=== PATIENT | male | born 1955 | race Caucasian/White ===

== ENCOUNTER 2018-07-08 15:17 | Emergency (ER) | payer MEDICARE, OTHER, SELFPAY ==
[2018-07-08 15:41] VITALS: BP 115/70; PULSE 90; RESP 16; TEMP 37; O2SAT 97
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
[2018-07-08] MEDS: Lidocaine 5% Patch 1 PATCH TP (16:54)
[2018-07-08 17:08] VITALS: BP 130/76; PULSE 77; RESP 17; TEMP 36.8; O2SAT 96
== END 2018-07-08 17:10 | disposition home or self-care (01) ==
PROVIDERS: Emergency Provider Nurse Practitioner Family; PCP Family Medicine
DX: S39.012A Strain of muscle, fascia and tendon of lower back, initial encounter (principal); X50.0XXA Overexertion from strenuous movement or load, initial encounter
CPT/HCPCS: 99283

== ENCOUNTER 2018-09-12 10:39 | Outpatient (CLI) | payer MEDICARE, OTHER, SELFPAY ==
[2018-09-12 13:04] LABS: BUN 18 mg/dL (7-18); CREATININE 1.06 mg/dL (0.70-1.30); Chloride 103 mmol/L (98-107); Glucose 189 mg/dL (70-100); Magnesium 1.8 mg/dL (1.8-2.4); Potassium 4.9 mmol/L (3.5-5.1); Sodium 139 mmol/L (136-145)
== END 2018-09-12 10:59 ==
PROVIDERS: PCP Family Medicine; Visit Provider Family Medicine
DX: I10 Essential (primary) hypertension (principal); E83.42 Hypomagnesemia
CPT/HCPCS: 36415; 80048; 83735

== ENCOUNTER 2019-01-02 15:56 | Outpatient (REF) | payer MEDICARE, OTHER, SELFPAY ==
[2019-01-02 20:44] LABS: HCT 41.1 % (40.0-50.0); HGB 13.2 g/dL (13.5-17.5); Mean Corp. HGB Concentration 32.1 g/dL (32.0-36.0); Mean Corpuscular Hemoglobin 24.1 pg (27.0-33.0); Mean Platelet Volume 11.4 fL (8.0-11.0); Platelet Count 227 x1000/uL (130-400); RBC 5.48 m/cumm (4.50-6.00); RBC Distribution Width 15.3 % (11.8-14.1); White Blood Cell Count 6.56 k/cumm (4.4-10.8)
[2019-01-02 21:21] LABS: NT-proBNP 25 pg/mL
== END 2019-01-02 16:16 ==
LOC: NCHCN 15:56
PROVIDERS: PCP Family Medicine; Visit Provider Family Medicine
DX: R06.02 Shortness of breath (principal)
CPT/HCPCS: 85027; 83880

== ENCOUNTER 2019-08-21 01:16 | Outpatient (CLI) | payer MEDICARE, OTHER, SELFPAY ==
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
== END 2019-08-21 01:36 ==
PROVIDERS: PCP Family Medicine; Visit Provider Orthopaedic Surgery
DX: M75.101 Unspecified rotator cuff tear or rupture of right shoulder, not specified as traumatic (principal); Z98.890 Other specified postprocedural states
CPT/HCPCS: 73221

== ENCOUNTER 2019-10-17 01:20 | Outpatient (CLI) | payer MEDICARE, OTHER, SELFPAY ==
[2019-10-17 16:04] LABS: Iron 79 ug/dL (65-175)
[2019-10-17 16:17] LABS: Ferritin 99 ng/mL (26-388); TSH 2.15 uIU/mL (0.36-3.74)
== END 2019-10-17 01:40 ==
PROVIDERS: PCP Family Medicine; Visit Provider Internal Medicine
DX: G47.61 Periodic limb movement disorder (principal); E11.9 Type 2 diabetes mellitus without complications
CPT/HCPCS: 36415; 82728; 83540; 84443

== ENCOUNTER 2019-11-12 13:50 | Outpatient (REF) | payer MEDICARE, OTHER, SELFPAY ==
[2019-11-13 13:11] LABS: COVID-19 RT-PCR UVMMC Result Negative (Negative)
== END 2019-11-12 14:10 ==
LOC: NCHCN 13:50
PROVIDERS: PCP Family Medicine; Visit Provider Physician Assistant
DX: R06.09 Other forms of dyspnea (principal)
CPT/HCPCS: U0003

== ENCOUNTER 2019-12-17 14:52 | Outpatient (REF) | payer MEDICARE, OTHER, SELFPAY ==
[2019-12-17 16:04] LABS: Hemoglobin A1C 10.1 % (3.8-5.6)
[2019-12-17 16:24] LABS: Magnesium 1.9 mg/dL (1.8-2.4); Vitamin B12 481 pg/mL (193-986)
[2019-12-19 05:48] LABS: Vitamin D 25 Total 27.7 ng/ml (30-100)
== END 2019-12-17 15:12 ==
LOC: NCHCN 14:52
PROVIDERS: PCP Family Medicine; Visit Provider Family Medicine
DX: E11.9 Type 2 diabetes mellitus without complications (principal); Z98.84 Bariatric surgery status; E83.42 Hypomagnesemia; Z79.84 Long term (current) use of oral hypoglycemic drugs
CPT/HCPCS: 82306; 82607; 83036; 83735

== ENCOUNTER 2020-03-06 14:49 | Emergency (ER) | payer MEDICARE, OTHER, SELFPAY ==
[2020-03-06] VITALS (12 sets, daily range): BP systolic 125–174; BP diastolic 77–97; PULSE 77–103; RESP 10–18; TEMP 36.6; O2SAT 94–98
--- NOTE | 2020-03-06 14:45 | RT.EKG_ITS ---
APPROVED REPORT Exam: Resting ECG Patient Location: E HR:100 bpm ECG Measurements Heart Rate 100 AXIS WV 163 P 71 QRSd 99 QRS -11 QT 349 T 52 QTc 449 Conclusion Sinus tachycardia...rate> 99
--- NOTE | 2020-03-06 15:25 | NUR.NOTE ---
Nursing Note: States he is always SOB and been worked up several times by his PCP but did not find anything. States it is no worse it is just bothering him. Worse when bending over or lying flat.
--- NOTE | 2020-03-06 15:30 | DI.CT_ITS ---
EXAM: CT CHEST PE CTA CLINICAL HISTORY: shortness of breath, chest tightness. TECHNIQUE: Imaging Protocol: Axial CT angiography was performed with multi-slice acquisition and mu lti-planar and/or 3D reconstructions. CONTRAST MATERIAL: Intravenous: Omnipaque 350 Contrast volume:84 mL COMPARISON: CT CHEST FOR PULMONARY EMBOLUS from 04/10/2017 FINDINGS: Pulmonary Arteries: No evidence of filling defect to suggest pulmonary emboli. Tracheobronchial tree: Patent where visualized. Mediastinum and Velma: No dominant adenopathy or fluid collection. Pulmonary parenchyma: No consolidation or dominant measurable mass. No architectural distortion. Mild dependent atelectasis. Pleura: No effusion or pneumothorax. Heart: The heart is not dilated. No coronary artery calcifications are seen. No pericardial effusion. Aorta: Thoracic aorta non-dilated. Mild atherosclerosis. No dissection. Upper abdomen: Prior gastric surgery. Fatty liver. Bones: Degenerative changes.Prior right shoulder surgery. Soft tissues: Unremarkable. IMPRESSION: No evidence of pulmonary embolism, thoracic aortic dissection or aneurysm. RADIATION DOSE DELIVERED: 539.4mGy.cm Total DLP DATA REPOSITORY: All CT scans at this facility are submitted to the National Radiology Data Registry (NRDR) Dose Index Registry (DIR) with the [employer] ([employer]). RADIATION OPTIMIZATION: All CT scans at this facility use at least one of these dose optimization te chniques: automated exposure control; mA and/or kV adjustment per patient size (includes targeted exa ms where dose is matched to clinical indication); or iterative reconstruction.
[2020-03-06 15:55] LABS: Abs Immature Grans 0.03 10^3/uL (0.0-0.06); Absolute Basophil Count 0.02 10^3/uL (0.0-0.2); Absolute Eosinophil Count 0.14 10^3/uL (0.0-0.7); Absolute Lymphocyte Count 1.43 10^3/uL (1.2-3.4); Absolute Monocyte Count 0.47 10^3/uL (0.1-0.8); Absolute Neutrophil Count 4.09 10^3/uL (1.2-6.7); Basophils % 0.3; Eosinophils % 2.3; HCT 45.4 % (40.0-50.0); HGB 15.4 g/dL (13.5-17.5); Immature Grans % 0.5; Lymphocytes % 23.1; MCH 30.5 pg (27.0-33.0); MCHC 33.9 % (32.0-36.0); MCV 89.9 fL (80-95); MPV 10.8 fL (8.0-11.0); Monocytes % 7.6; Neutrophils % 66.2; Nucleated RBC 0 %; Platelet Count 178 10^3/uL (130-400); RBC 5.05 10^6/uL (4.36-5.78); RDW-SD 42.5 fL; WBC 6.18 10^3/uL (4.4-10.8)
[2020-03-06 16:05] LABS: PTT Activated 21.6 sec (21.0-31.4)
[2020-03-06 16:26] LABS: ALT 64 U/L (16-63); AST 35 U/L (15-37); Albumin 3.9 g/dL (3.4-5.0); Alkaline Phosphatase 65 U/L (46-116); Anion Gap 13.5 mmol/L (3-11); BUN 21 mg/dL (7-18); Bilirubin, Total 0.3 mg/dL (0.2-1.0); CO2 24.5 mmol/L (21.0-32.0); CREATININE 1.43 mg/dL (0.70-1.30); Chloride 101 mmol/L (98-107); Estimated GFR 49.95 (mL/min/1.73m2); Glucose 360 mg/dL (74-106); Potassium 4.2 mmol/L (3.5-5.1); Sodium 139 mmol/L (136-145); Total Protein 7.4 g/dL (6.4-8.2); Troponin I < 0.05 ng/mL (<0.06)
[2020-03-06 16:29] LABS: NT-proBNP 28 pg/mL (<300)
[2020-03-06] MEDS: Omnipaque 350 MG/ML 100 ML BTL IJ (17:15)
[2020-03-06] MEDS: Normal Saline Flush 10 ML SYR IVP (17:16)
[2020-03-06] MEDS: Normal Saline - Diluent 50 ML VIAL IV (17:16)
--- NOTE | 2020-03-06 17:21 | DI.VRAD_ITS ---
PROCEDURE INFORMATION: Exam: CT Angiography Chest With Contrast Exam date and time: 03/06/2020 3:35 PM Age: 64 years old Clinical indication: Other: SOB, chest tightness TECHNIQUE: Imaging protocol: Computed tomographic angiography of the chest with intravenous contrast. 3D rendering (Not supervised by radiologist): MIP and/or 3D reconstructed images were created by the technologist. Contrast material: OMNIPAQUE 350; Contrast volume: 84 ml; Contrast route: INTRAVENOUS (IV); COMPARISON: CT CHEST FOR PULMONARY EMBOLUS 04/10/2017 3:59 PM FINDINGS: Pulmonary arteries: Normal. No pulmonary emboli. Aorta: Unremarkable. No aortic aneurysm. No aortic dissection. Lungs: No pulmonary infiltrates. Minimal atelectasis in the posterior segment of the right lower lobe. No masses. Pleural space: Unremarkable. No pneumothorax. No pleural effusion. Heart: Unremarkable. No cardiomegaly. No pericardial effusion. Lymph nodes: Unremarkable. No enlarged lymph nodes. Liver: Fatty liver. Stomach and bowel: Gastric bypass. Bones/joints: Degenerative spine.right rotator cuff anchors.. No acute fracture. Soft tissues: Unremarkable. Other findings: Minimal atherosclerosis. IMPRESSION: No pulmonary embolism. No pulmonary infiltrates. Minimal atelectasis in the posterior segment of the right lower lobe. Dictated and Authenticated by: Bharathi Bryan MD. Ordering:TRISTA Lo MD
[2020-03-06] MEDS: Normal Saline 500 ML IV (17:46)
--- NOTE | 2020-03-06 17:56 | ED.GENADUL_ITS ---
Discharge Plan Disposition Patient Disposition: HOME Condition: Stable Discharge Details Chief Complaint: SOB Clinical Impression: Shortness of breath, Hyperglycemia Primary Care Provider: Yung Horn ED Provider: Wally Ascencio Home Meds and New Rx's Prescriptions: No Action lisinopril 2.5 MG tablet 2.5 mg PO DAILY Qty: 30 RF: 11 gabapentin 300 MG capsule 300 mg PO BID PRNQty: 90 RF: 2 venlafaxine 25 MG tablet PO DAILY RF: 0 metformin [Glucophage] 1,000 MG tablet 1,000 mg PO BID RF: 0 lorazepam 1 MG tablet 1 mg PO Q4H PRN PRN (Reason: Muscle Spasm) Qty: 10 RF: 0 risperidone [Risperdal] 0.5 mg Tablet 1 tab PO .QHS RF: 0 ibuprofen [IBU] 600 mg tablet 600 mg PO QID PRN (Reason: pain) Qty: 14 RF: 0 oxycodone 5 mg tablet 5 mg PO Q6H PRN (Reason: pain) Qty: 6 RF: 0 aspirin 81 MG tablet,delayed release (DR/EC) 81 mg PO DAILY RF: 0 glipizide 5 MG tablet 10 mg PO BID RF: 0 metoprolol jane-hydrochlorothiaz 1 EACH tablet extended release 24 hr 25 mg PO DAILY RF: 0 pantoprazole [Protonix] 40 MG recon soln 40 mg IVP DAILY RF: 0 Discharge Instructions Instructions: Dyspnea (ED), Diabetic Hyperglycemia (ED) Additional Instructions: Medication reconciliation process could not be performed today. Please be sure to take your medication as prescribed. If you have questions regarding her medication, please talk with your primary care doctor. Your blood sugar was elevated today. Please discuss this with your primary care physician on Monday. Please drink plenty of clear fluids to stay hydrated. Please contact your primary care physician to arrange follow-up. Call first thing Monday morning. Return to the ER for any worsening or new concerning symptoms. Referrals: Yung Horn [Primary Care Provider] - Discharge Data Discharge Date/Time-TO BE ENTERED AT DEPARTURE: 03/06/20 19:55 Medical Decision Making 84-year-old male here today with shortness of breath that he has been experiencing intermittently for a couple of years. More noticeable over the past few days. Patient is saturating well and in no respiratory distress. Lungs are clear to auscultation. He is mildly tachycardic on arrival. Considered acute pulmonary embolism. CT of the chest was interpreted by radiology: IMPRESSION: No pulmonary embolism. No pulmonary infiltrates. Minimal atelectasis in the posterior segment of the right lower lobe. Considered CHF given symptoms do seem worse lying flat. BNP is negative. Troponin negative. BNP is negative. Labs reviewed and mild elevation of creatinine noted. Patient states he has been drinking as much fluid as usual. Glucose is elevated at 360 and he does have an anion gap of 13.5. Patient was given 1 L IV fluid bolus. Patient reassessed and is remained stable. Tachycardia resolved. Repeat labs reveal resolution of anion gap and improved glucose. Plan will be for patient to follow-up with his primary care physician for further outpatient work-up. Disposition decision was made weighing the risks and benefits of hospitalization versus outpatient treatment, the risk for further decompensation, and the patient's wishes. The patient was stable and requested discharge. Prior to discharge, my usual and customary return precautions were reviewed with the patient - this included follow-up instructions and reason to return to the emergency department if condition worsens, does not improve as expected, or other new concerns arise. HPI General Mode of arrival: ambulatory . Date/Time Provider Initiated Documentation: 03/06/20 15:18 . Limitations to Documentation: no limitations . Information obtained by: patient . HPI Narrative: 84-year-old male with history of anxiety, [id number]-dpyaxatbn diabetes, GERD, here today with shortness of breath that he has been experiencing intermittently for a couple of years. More noticeable over the past few days. Symptoms are moderate. Worse lying flat. He does note intermittent mild swelling bilateral lower extremities. Patient also states he has some intermittent pleuritic chest discomfort. No pain at this time. No calf pain. Related Data Home Medications Medication Instructions Recorded Confirmed lisinopril 2.5 mg PO DAILY #30 tab-cap 07/16/14 07/08/18 gabapentin 300 mg PO BID PRN #90 tab-cap 03/09/15 07/08/18 aspirin 81 mg PO DAILY 05/26/17 07/08/18 glipizide 10 mg PO BID 05/26/17 07/08/18 metoprolol jane-hydrochlorothiaz 25 mg PO DAILY 05/26/17 07/08/18 pantoprazole [Protonix] 40 mg IVP DAILY vial 05/26/17 07/08/18 lorazepam 1 mg PO Q4H PRN PRN #10 tab 11/27/17 07/08/18 metformin [Glucophage] 1,000 mg PO BID 11/27/17 07/08/18 venlafaxine mg PO DAILY 11/27/17 ibuprofen [IBU] 600 mg PO QID PRN #14 tab 07/08/18 oxycodone 5 mg PO Q6H PRN #6 tab 07/08/18 risperidone [Risperdal] 1 tab PO .QHS 07/08/18 07/08/18 Previous Rx's Medication Instructions Recorded pantoprazole [Protonix] 40 mg IVP DAILY vial 05/26/17 lorazepam 1 mg PO Q4H PRN PRN #10 tab 11/27/17 ibuprofen [IBU] 600 mg PO QID PRN #14 tab 07/08/18 oxycodone 5 mg PO Q6H PRN #6 tab 07/08/18 Allergies Allergy/AdvReac Type Severity Reaction Status Date / Time adhesive Allergy Intermediate blisters Unverified 03/06/20 15:24 General Stated Complaint: SOB NASIMA: 3 Review of Systems All systems reviewed & are unremarkable except as noted in HPI and below Constitutional Constitutional: Denies fever(s) Respiratory Respiratory: Reports as per HPI PFSH Surgical History bunionectomy (07/18/14) Left Dr Márquez Repair of inguinal hernia Repair, ACL Rotator Cuff Repair Family History Mother Alzheimer disease Social History Smoking/Tobacco Use Status: Former Tobacco Use Drug use: Never Substance use type: does not use Do you feel safe at home: Yes Do you feel safe in your relationship?: Yes Exam Const General: cooperative and no acute distress HENMT Head: normocephalic Mouth: moist mucous membranes Eyes Conjunctivae: normal conjunctivae Sclera: normal sclerae Neck Neck: trachea midline and supple Resp Auscultation: clear to auscultation bilaterally, no rales, no rhonchi and no wheezes Cardio Jugular venous pressure: no JVD Rate: tachycardic Rhythm: regular rhythm GI Palpation: soft, not firm, no guarding, no masses, not rigid and nontender Skin General skin exam: no rashes or lesions noted Neuro General: patient alert, patient awake, patient oriented x3 and tone normal Extrem General: edema Laterality: bilateral (Trace) Psych Appearance: grossly normal Mental Status: mental status grossly normal Speech and Movement: speech and movement normal Course Vital Signs Vital signs: Vital Signs Temperature 36.6 C 03/06/20 15:10 Pulse 103 H 03/06/20 15:10 Respiratory Rate 18 03/06/20 15:10 Blood Pressure 159/93 H 03/06/20 15:10 Pulse Oximetry 94 L 03/06/20 15:10 Temperature 36.6 C 03/06/20 15:10 Temperature Source Skin 03/06/20 15:10 Pulse 103 H 03/06/20 15:10 Respiratory Rate 18 03/06/20 15:10 Respiratory Effort Non-Labored 03/06/20 15:20 Respiratory Depth Normal 03/06/20 15:20 Respiratory Pattern Normal 03/06/20 15:20 Blood Pressure 159/93 H 03/06/20 15:10 Blood Pressure Position Sitting 03/06/20 15:10 Pulse Oximetry 94 L 03/06/20 15:10 Oxygen Delivery Method Room Air 03/06/20 15:10 Oxygen Flow Rate 0 03/06/20 15:10 Lab/Test Results Lab/Test Results: Laboratory Tests Range/Units 03/06/20 03/06/20 03/06/20 15:10 15:10 15:10 WBC (4.4-10.8) 10^3/uL 6.18 RBC (4.36-5.78) 10^6/uL 5.05 Hgb (13.5-17.5) g/dL 15.4 Hct (40.0-50.0) % 45.4 MCV (80-95) fL 89.9 MCH (27.0-33.0) pg 30.5 MCHC (32.0-36.0) % 33.9 RDW (11.8-14.1) % 13.0 Plt Count (130-400) 10^3/uL 178 MPV (8.0-11.0) fL 10.8 Immature Gran % 0.5 Neutrophils % 66.2 Lymphocytes % 23.1 Monocytes % 7.6 Eosinophils % 2.3 Basophils % 0.3 Nucleated RBC % % 0 Absolute Neutrophils (1.2-6.7) 10^3/uL 4.09 Absolute Lymphocytes (1.2-3.4) 10^3/uL 1.43 Absolute Monocytes (0.1-0.8) 10^3/uL 0.47 Absolute Eosinophils (0.0-0.7) 10^3/uL 0.14 Absolute Basophils (0.0-0.2) 10^3/uL 0.02 APTT (21.0-31.4) sec Sodium (136-145) mmol/L 139 Potassium (3.5-5.1) mmol/L 4.2 Chloride (98-107) mmol/L 101 Carbon Dioxide (21.0-32.0) mmol/L 24.5 Anion Gap (3-11) mmol/L 13.5 H BUN (7-18) mg/dL 21 H Creatinine (0.70-1.30) mg/dL 1.43 H Estimated GFR/1.73 m2 (mL/min/1.73m2) 49.95 Glucose (74-106) mg/dL 360 H Calcium (8.5-10.1) mg/dL 9.0 Total Bilirubin (0.2-1.0) mg/dL 0.3 AST (15-37) U/L 35 ALT (16-63) U/L 64 H Alkaline Phosphatase (46-116) U/L 65 Troponin I (<0.06) ng/mL < 0.05 NT-Pro-B Natriuret Pep (<300) pg/mL 28 Total Protein (6.4-8.2) g/dL 7.4 Albumin (3.4-5.0) g/dL 3.9 Range/Units 03/06/20 15:10 WBC (4.4-10.8) 10^3/uL RBC (4.36-5.78) 10^6/uL Hgb (13.5-17.5) g/dL Hct (40.0-50.0) % MCV (80-95) fL MCH (27.0-33.0) pg MCHC (32.0-36.0) % RDW (11.8-14.1) % Plt Count (130-400) 10^3/uL MPV (8.0-11.0) fL Immature Gran % Neutrophils % Lymphocytes % Monocytes % Eosinophils % Basophils % Nucleated RBC % % Absolute Neutrophils (1.2-6.7) 10^3/uL Absolute Lymphocytes (1.2-3.4) 10^3/uL Absolute Monocytes (0.1-0.8) 10^3/uL Absolute Eosinophils (0.0-0.7) 10^3/uL Absolute Basophils (0.0-0.2) 10^3/uL APTT (21.0-31.4) sec 21.6 Sodium (136-145) mmol/L Potassium (3.5-5.1) mmol/L Chloride (98-107) mmol/L Carbon Dioxide (21.0-32.0) mmol/L Anion Gap (3-11) mmol/L BUN (7-18) mg/dL Creatinine (0.70-1.30) mg/dL Estimated GFR/1.73 m2 (mL/min/1.73m2) Glucose (74-106) mg/dL Calcium (8.5-10.1) mg/dL Total Bilirubin (0.2-1.0) mg/dL AST (15-37) U/L ALT (16-63) U/L Alkaline Phosphatase (46-116) U/L Troponin I (<0.06) ng/mL NT-Pro-B Natriuret Pep (<300) pg/mL Total Protein (6.4-8.2) g/dL Albumin (3.4-5.0) g/dL
[2020-03-06 19:17] LABS: Anion Gap 7.5 mmol/L (3-11); BUN 19 mg/dL (7-18); CO2 29.5 mmol/L (21.0-32.0); Calcium 8.9 mg/dL (8.5-10.1); Chloride 103 mmol/L (98-107); Glucose 215 mg/dL (74-106); Potassium 4.3 mmol/L (3.5-5.1); Sodium 140 mmol/L (136-145)
== END 2020-03-06 19:55 | disposition home or self-care (01) ==
PROVIDERS: Emergency Provider Student in an Organized Health Care Education/Training Program; PCP Family Medicine
DX: R06.02 Shortness of breath (principal); R07.81 Pleurodynia; E11.65 Type 2 diabetes mellitus with hyperglycemia; Z79.84 Long term (current) use of oral hypoglycemic drugs
CPT/HCPCS: 36415; 71275; 80048; 80053; 93005; 96360; 99285; 83880; 84484; 85025; 85730; 93010; 99284; J3490

== ENCOUNTER 2020-07-01 22:26 | Inpatient (IN) | payer MEDICARE, OTHER, SELFPAY ==
[2020-07-01] VITALS (7 sets, daily range): BP systolic 101–167; BP diastolic 66–87; PULSE 81–95; RESP 12–20; TEMP 36.6; O2SAT 90–100
--- NOTE | 2020-07-01 22:30 | RT.EKG_ITS ---
APPROVED REPORT Exam: Resting ECG Patient Location: E HR:91 bpm ECG Measurements Heart Rate 91 AXIS DE 163 P 47 QRSd 92 QRS 3 QT 344 T 32 QTc 423 Conclusion Sinus rhythm...normal P axis, V-rate 60- 99 Low voltage, precordial leads...precordial leads <1.0mV Physician: Rate 91, intervals normal, no significant ST elevation or depressions, there is a T wave i nversion in V1, no Q waves. No STEMI.
[2020-07-01] MEDS: nitroGLYcerin 0.4 MG TAB SL (22:56)
--- NOTE | 2020-07-01 22:56 | DI.RAD_ITS ---
EXAM: XR PORTABLE CHEST AP CLINICAL HISTORY: chest pain, sob, syncope TECHNIQUE: 2D digital imaging was performed. COMPARISON: No exams were available for comparison FINDINGS: MEDIASTINUM: Normal. HEART: Normal. PULMONARY VASCULATURE: Normal. LUNGS: Clear. PLEURAL SPACE: No pleural effusion or pneumothorax. BONE:Within normal limits for the patient's age. OTHER FINDINGS:Normal. IMPRESSION: No acute pulmonary findings. DATA REPOSITORY: RADIATION DOSE DELIVERED:
[2020-07-01 22:58] LABS: BE (Venous) 2 mmol/L (-2-3); HCO3 (Venous) 27 mmol/L (23-28); O2 Sat (Venous) 73 %; TCO2 (Venous) 24 mmol/L (24-29); pCO2 (Venous) 44 mmHg (41-51); pH (Venous) 7.39 (7.31-7.41); pO2 (Venous) 39 mmHg
[2020-07-01] MEDS: Normal Saline 500 ML IV (22:58)
[2020-07-01 22:59] LABS: Abs Immature Grans 0.02 10^3/uL (0.0-0.06); Absolute Basophil Count 0.01 10^3/uL (0.0-0.2); Absolute Lymphocyte Count 1.41 10^3/uL (1.2-3.4); Absolute Monocyte Count 0.46 10^3/uL (0.1-0.8); Absolute Neutrophil Count 4.07 10^3/uL (1.2-6.7); Basophils % 0.2; Eosinophils % 1.6; HGB 13.8 g/dL (13.5-17.5); Immature Grans % 0.3; Lymphocytes % 23.2; MCH 30.9 pg (27.0-33.0); MCHC 33.7 % (32.0-36.0); MCV 91.7 fL (80-95); MPV 10.3 fL (8.0-11.0); Monocytes % 7.6; Neutrophils % 67.1; Nucleated RBC 0 %; Platelet Count 170 10^3/uL (130-400); RBC 4.47 10^6/uL (4.36-5.78); RDW 12.6 % (11.8-14.1); RDW-SD 41.7 fL; WBC 6.07 10^3/uL (4.4-10.8)
--- NOTE | 2020-07-01 23:05 | DI.VRAD_ITS ---
PROCEDURE INFORMATION: Exam: XR Chest, 1 View Exam date and time: 07/01/2020 10:56 PM Age: 64 years old Clinical indication: Type not specified; Patient HX: Chest pain, SOB, syncope TECHNIQUE: Imaging protocol: XR of the chest Views: 1 view. COMPARISON: CT CHEST PE CTA 03/06/2020 4:59 PM FINDINGS: Lungs: Unremarkable. No consolidation. Pleural space: Unremarkable. No pleural effusion. No pneumothorax. Heart/Mediastinum: Unremarkable. No cardiomegaly. Bones/joints: Unremarkable. IMPRESSION: No acute findings. Dictated and Authenticated by: Roosevelt Weeks MD. Ordering:KATLYN Ferrer MD
--- NOTE | 2020-07-01 23:08 | W.ED.GENAD ---
Discharge Plan Disposition Patient Disposition: [facility] INPATIENT Condition: Stable Discharge Details Chief Complaint: Chest Pain Clinical Impression: Chest pain, Syncope Primary Care Provider: Yung Horn ED Provider: Nabil Daniel Home Meds and New Rx's Prescriptions: No Action metformin [Glucophage] 1,000 MG tablet 1,000 mg PO BID RF: 0 aspirin 81 MG tablet,delayed release (DR/EC) 81 mg PO DAILY RF: 0 pantoprazole [Protonix] 40 MG recon soln 40 mg IVP DAILY RF: 0 tamsulosin 0.4 mg capsule 0.4 mg PO HS RF: 0 Trulicity 0.75 mg/0.5 mL pen injector 0.75 mg SUBCUT QWEEK RF: 0 glipizide 10 mg tablet extended release 24hr 10 mg PO BID RF: 0 lisinopril 20 mg tablet 20 mg PO DAILY RF: 0 gabapentin 800 mg tablet 800 mg PO TID RF: 0 pantoprazole 40 mg tablet,delayed release (DR/EC) 40 mg PO BID RF: 0 ferrous sulfate [iron] 325 mg (65 mg iron) Tablet 325 mg PO DAILY RF: 0 cholecalciferol (vitamin D3) [Vitamin D3] 50 mcg (2,000 unit) Capsule 50 mcg PO DAILY RF: 0 venlafaxine 225 mg tablet extended release 24hr 225 mg PO DAILY RF: 0 Medical Decision Making 64-year-old male with a past medical history of hypertension, high cholesterol, previous tobacco abuse quitting over 20 years ago, reflux, diabetes, who presents today for evaluation of chest pain shortness of breath and syncope. Patient states that for the last week whenever he has been standing up he passes out. He denies hitting his head any of these times. He denies any headaches. He denied any chest pain until this morning when he developed combination of both shortness of breath and chest pain which she describes as a heaviness on his chest rating to his left jaw and left arm. He states this is new. It is worse with exertion, but not necessarily improved with rest. He denies any history of [place] in the past, in 2017 he had a cardiac catheterization at [facility] which showed mild diffuse disease but nothing that was obstructive. He had no stents placed. He denies any history of blood clots, his also denies any history of blood clots or PE. There is a diagnosis of pulmonary embolism on his history but I cannot see any evidence of previous PE on any of his CAT scans, or in the past notes. Patient has no other complaints at this time. He denies any focal family history of severe cardiac disease. Physical exam is unremarkable, no significant reproducibility for chest pain. Radial pulses are symmetric bilaterally. Vital signs appear stable. He has been given 1 nitroglycerin and this notably diminished his pain. Symptomatology is concerning for cardiac etiology or unstable angina. Will evaluate for these potential life-threatening causes. EKG at this time though shows no evidence of STEMI or significant changes. Symptoms appear inconsistent at this time with pulmonary embolism. Troponin is normal. proBNP is normal suggesting no signs of significant heart strain. Thyroid functionality is normal. I do feel that with the patient's symptoms, he would benefit from admission for serial troponins and continued observation. Chest x-ray is read by virtual radiology shows no evidence of acute process. Additionally review of [facility] records indicates no history of pulmonary embolism. Patient's well score is in the low risk category. 12:13 AM Patient's chest pain notably improved with nitroglycerin, about an hour later his chest pain returned again, he was started on a nitroglycerin drip. Discussed the case with Dr. Grajeda, he agrees with the assessment and plan. Patient will be admitted for serial troponins and further management. I discussed the plan with the patient's and she is in agreement. I have extensively reviewed the treatment plan with the patient. I have addressed all patient concerns at this time. I have also discussed the plan with the admitting physician and they agree with the current assessment and plan and have agreed to assume responsibility for the patient. All parties demonstrate verbal understanding and agreement with our assessment and plan at this time. FINDINGS: Lungs: Unremarkable. No consolidation. Pleural space: Unremarkable. No pleural effusion. No pneumothorax. Heart/Mediastinum: Unremarkable. No cardiomegaly. Bones/joints: Unremarkable. IMPRESSION: No acute findings. Thank you for allowing us to participate in the care of your patient. Dictated and Authenticated by: Roosevelt Weeks MD 07/01/2020 11:05 PM Eastern Time ([place] & [place]) EKG 22: 39 Rate 91, intervals normal, no significant ST elevation or depressions, there is a T wave inversion in V1, no Q waves. No STEMI. HPI General Date/Time Provider Initiated Documentation: 07/01/20 22:27. HPI Narrative: 64-year-old male with a past medical history of hypertension, high cholesterol, previous tobacco abuse quitting over 20 years ago, reflux, diabetes, who presents today for evaluation of chest pain shortness of breath and syncope. Patient states that for the last week whenever he has been standing up he passes out. He denies hitting his head any of these times. He denies any headaches. He denied any chest pain until this morning when he developed combination of both shortness of breath and chest pain which she describes as a heaviness on his chest rating to his left jaw and left arm. He states this is new. It is worse with exertion, but not necessarily improved with rest. He denies any history of [place] in the past, in 2017 he had a cardiac catheterization at [facility] which showed mild diffuse disease but nothing that was obstructive. He had no stents placed. He denies any history of blood clots, his also denies any history of blood clots or PE. There is a diagnosis of pulmonary embolism on his history but I cannot see any evidence of previous PE on any of his CAT scans, or in the past notes. Patient has no other complaints at this time. He denies any focal family history of severe cardiac disease. Related Data Home Medications Medication Instructions Recorded Confirmed aspirin 81 mg PO DAILY 05/26/17 07/01/20 pantoprazole [Protonix] 40 mg IVP DAILY vial 05/26/17 07/08/18 metformin [Glucophage] 1,000 mg PO BID 11/27/17 07/02/20 dulaglutide [Trulicity] 0.75 mg SUBCUT QWEEK 07/01/20 07/02/20 tamsulosin 0.4 mg PO HS 07/01/20 07/01/20 cholecalciferol (vitamin D3) 50 mcg PO DAILY 07/02/20 07/02/20 [Vitamin D3] ferrous sulfate [iron] 325 mg PO DAILY 07/02/20 07/02/20 gabapentin 800 mg PO TID 07/02/20 07/02/20 glipizide 10 mg PO BID 07/02/20 07/02/20 lisinopril 20 mg PO DAILY 07/02/20 07/02/20 pantoprazole 40 mg PO BID 07/02/20 07/02/20 venlafaxine 225 mg PO DAILY 07/02/20 07/02/20 Previous Rx's Medication Instructions Recorded pantoprazole [Protonix] 40 mg IVP DAILY vial 05/26/17 Allergies Allergy/AdvReac Type Severity Reaction Status Date / Time adhesive Allergy Intermediate blisters Unverified 07/01/20 22:38 General Stated Complaint: Chest Pain NASIMA: 2 Review of Systems All systems reviewed & are unremarkable except as noted in HPI and below PFSH Surgical History bunionectomy (07/18/14) Left Dr Márquez Repair of inguinal hernia Repair, ACL Rotator Cuff Repair Family History Mother Alzheimer disease Social History Smoking/Tobacco Use Status: Former Tobacco Use Smoking risk assessment performed?: Yes Alcohol Intake: current Alcohol Intake frequency: a few times a month Alcohol type: beer Drug use: Never Substance use type: does not use Do you feel safe at home: Yes Do you feel safe in your relationship?: Yes Exam Narrative Exam Narrative: 1.Const: Well-nourished, Well-developed, appearing stated age 2.Eyes: PERRL, no conjunctival injection, and symmetrical lids. 3.ENT: Atraumatic external nose and ears. Moist MM. Neck: Symmetric, trachea midline, No thyromegaly. 4.CVS: +S1/S2, No murmurs or gallops. Peripheral pulses 2+ and equal in all extremities. Brisk capillary refill in all extremities. No significant reproducible chest tenderness. Symmetric radial pulses. 5.RESP: Unlabored respiratory effort. Minimal crackles in bases. No wheezes or rhonchi. 6.GI: Soft, Nontender/Nondistended, No hepatosplenomegaly. No guarding or rebound. 7.MSK: Normocephalic/Atraumatic, Extremities w/o deformity or ttp No cyanosis or clubbing, Normal movement of all extremities, no calf tenderness. 8.Skin: Warm, Dry. No rashes or lesions. 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 Sensation grossly intact, no focal neurologic deficits. 10.Psych: (AAO) x3. Appropriate mood and affect Course Vital Signs Vital signs: Vital Signs Temperature 36.6 C 07/01/20 22:37 Pulse 86 07/01/20 22:37 Respiratory Rate 20 07/01/20 22:37 Blood Pressure 122/75 07/01/20 22:37 Pulse Oximetry 95 07/01/20 22:37 Temperature 36.6 C 07/01/20 22:37 Temperature Source Skin 07/01/20 22:37 Pulse 86 07/01/20 22:37 Respiratory Rate 16 07/01/20 22:46 Respiratory Effort Non-Labored 07/01/20 22:46 Respiratory Depth Normal 07/01/20 22:46 Respiratory Pattern Normal 07/01/20 22:46 Blood Pressure 122/75 07/01/20 22:37 Blood Pressure Position Sitting 07/01/20 22:37 Pulse Oximetry 95 07/01/20 22:37 Oxygen Delivery Method Room Air 07/01/20 22:37 Oxygen Flow Rate 0 07/01/20 22:37 Pain Level 6 07/01/20 22:56 Lab/Test Results Lab/Test Results: Laboratory Tests Range/Units 07/01/20 07/01/20 22:45 22:45 WBC (4.4-10.8) 10^3/uL 6.07 RBC (4.36-5.78) 10^6/uL 4.47 Hgb (13.5-17.5) g/dL 13.8 Hct (40.0-50.0) % 41.0 MCV (80-95) fL 91.7 MCH (27.0-33.0) pg 30.9 MCHC (32.0-36.0) % 33.7 RDW (11.8-14.1) % 12.6 Plt Count (130-400) 10^3/uL 170 MPV (8.0-11.0) fL 10.3 Immature Gran % 0.3 Neutrophils % 67.1 Lymphocytes % 23.2 Monocytes % 7.6 Eosinophils % 1.6 Basophils % 0.2 Nucleated RBC % % 0 Absolute Neutrophils (1.2-6.7) 10^3/uL 4.07 Absolute Lymphocytes (1.2-3.4) 10^3/uL 1.41 Absolute Monocytes (0.1-0.8) 10^3/uL 0.46 Absolute Eosinophils (0.0-0.7) 10^3/uL 0.10 Absolute Basophils (0.0-0.2) 10^3/uL 0.01 VBG pH (7.31-7.41) 7.39 VBG pCO2 (41-51) mmHg 44 VBG pO2 mmHg 39 VBG HCO3 (23-28) mmol/L 27 VBG Total CO2 (24-29) mmol/L 24 VBG O2 Saturation % 73 VBG Base Excess (-2-3) mmol/L 2
[2020-07-01 23:17] LABS: PTT Activated 21.1 sec (21.0-27.5); Prothrombin Time 9.9 sec (9.3-11.0)
[2020-07-01 23:26] LABS: ALT 106 U/L (16-63); AST 166 U/L (15-37); Albumin 3.8 g/dL (3.4-5.0); Alkaline Phosphatase 71 U/L (46-116); Anion Gap 6.3 mmol/L (3-11); BUN 21 mg/dL (7-18); Bilirubin, Total 1.1 mg/dL (0.2-1.0); CO2 27.7 mmol/L (21.0-32.0); CREATININE 1.49 mg/dL (0.70-1.30); Calcium 8.9 mg/dL (8.5-10.1); Chloride 104 mmol/L (98-107); Estimated GFR 47.63 (mL/min/1.73m2); Glucose 185 mg/dL (74-106); NT-proBNP 47 pg/mL (<300); Potassium 5.1 mmol/L (3.5-5.1); Sodium 138 mmol/L (136-145); TSH (W/Ref FT4) 3.66 uIU/mL (0.36-3.74); Total Protein 7.3 g/dL (6.4-8.2); Troponin I < 0.05 ng/mL (<0.06)
--- NOTE | 2020-07-01 23:26 | W.PM.HP.N ---
Date of service: 07/01/20 Time of Service: 23:26 Assessment and Plan Assessment and plan (1) Atypical chest pain: Status: Acute Assessment and plan: CP. No objective evidence ACS at present, though at risk; response to NTG, such as it was, is nonspecific. Would trend out troponins, trial PPI, NTG qtt if CP recurrent or persistent, and heparin if troponin bumps. History of Present Illness History of Present Illness Chief Complaint: CP Narrative: 64 male diabetic. Has h/o CP 2017, sent to [facility] for cath, non-obstructive disease. Comes in now with one day of waxing and waning substernal CP, variably denies or affirms radiation to neck and/or shoulder; and also SOB. Additionally reports that his LUE and LLE are either hurting or tingling, and that his lower back is hurting as well. However note that the CP is his primary complaint. In ER had fleeting (less than one minute he tells me) relief with SL NTG. Initial EKG no acute changes and initial troponin negative, and CXR w/o acute findings. Admitted for further evaluation. Other findings of note are AST 166, ALT 106. States he drinks a few beers. Review of Systems All systems reviewed & are unremarkable except as noted in HPI and below PFSH Surgical History bunionectomy (07/18/14) Left Dr Márquez Repair of inguinal hernia Repair, ACL Rotator Cuff Repair Family History Mother Alzheimer disease Social History Smoking/Tobacco Use Status: Former Tobacco Use Smoking risk assessment performed?: Yes Alcohol Intake: current Alcohol Intake frequency: a few times a month Alcohol type: beer Drug use: Never Substance use type: does not use Do you feel safe at home: Yes Do you feel safe in your relationship?: Yes Meds Home Medications and Allergies Home Medications Medication Instructions Recorded Confirmed Type lisinopril 2.5 mg PO DAILY #30 tab-cap 07/16/14 07/08/18 History gabapentin 300 mg PO BID PRN #90 tab-cap 03/09/15 07/08/18 History aspirin 81 mg PO DAILY 05/26/17 07/08/18 History glipizide 10 mg PO BID 05/26/17 07/08/18 History metoprolol jane-hydrochlorothiaz 25 mg PO DAILY 05/26/17 07/08/18 History pantoprazole [Protonix] 40 mg IVP DAILY vial 05/26/17 07/08/18 Rx lorazepam 1 mg PO Q4H PRN PRN #10 tab 11/27/17 07/08/18 Rx metformin [Glucophage] 1,000 mg PO BID 11/27/17 07/08/18 History venlafaxine mg PO DAILY 11/27/17 History ibuprofen [IBU] 600 mg PO QID PRN #14 tab 07/08/18 Rx oxycodone 5 mg PO Q6H PRN #6 tab 07/08/18 Rx risperidone [Risperdal] 1 tab PO .QHS 07/08/18 07/08/18 History Allergies Allergy/AdvReac Type Severity Reaction Status Date / Time adhesive Allergy Intermediate blisters Unverified 07/01/20 22:38 Exam Narrative Exam Narrative: 135/87, 89, 36.6, 12, 100% RA. HEENT unremarkable; neck supple, cannot read JVP; lungs clear; heart RRR w/o MRG; abdomen soft and NT; extremities w/o edema, pulse 2+/=; neuro Ox3, nonfocal Results Labs Result diagrams: 07/01/20 22:45 07/01/20 22:45 Labs: Laboratory Results - last 24 hr 07/01/20 07/01/20 07/01/20 22:45 22:45 22:45 WBC 6.07 RBC 4.47 Hgb 13.8 Hct 41.0 MCV 91.7 MCH 30.9 MCHC 33.7 RDW 12.6 Plt Count 170 MPV 10.3 Immature Gran % 0.3 Neutrophils % 67.1 Lymphocytes % 23.2 Monocytes % 7.6 Eosinophils % 1.6 Basophils % 0.2 Nucleated RBC % 0 Absolute Neutrophils 4.07 Absolute Lymphocytes 1.41 Absolute Monocytes 0.46 Absolute Eosinophils 0.10 Absolute Basophils 0.01 PT 9.9 INR 1.0 APTT 21.1 VBG pH 7.39 VBG pCO2 44 VBG pO2 39 VBG HCO3 27 VBG Total CO2 24 VBG O2 Saturation 73 VBG Base Excess 2 Last Vital Signs Temp 36.6 C 07/01/20 22:37 Pulse 89 07/01/20 23:16 Resp 12 07/01/20 23:16 BP 135/87 07/01/20 23:16 Pulse Ox 100 07/01/20 23:16 COVID-19 Screening Have you, or household traveled for leisure in last 14 days?: No Had IN PERSON contact w/suspected or confirmed C-19 person: No
[2020-07-02] VITALS (77 sets, daily range): BP systolic 94–174; BP diastolic 41–130; PULSE 83–127; RESP 12–24; TEMP 36.6–38.8; O2SAT 91–100
--- NOTE | 2020-07-02 | DI.MRI_ITS ---
EXAM: MR CERVICAL SPINE WO CLINICAL HISTORY: LUE/LLE weakness TECHNIQUE: Multiplanar multisequence MRI of the cervical spine was performed without intravenous con trast. COMPARISON: No exams were available for comparison FINDINGS: Examination limited by motion. BONES: Vertebral body heights are maintained. Alignment is normal. Bone marrow signal intensity is wi thin normal limits. CERVICAL CORD: Craniovertebral junction is unremarkable. The cervical cord is normal size and signal intensity. SOFT TISSUES: Unremarkable. C2-3: Disc bulge. Facet arthropathy. Moderate to severe left neural foraminal narrowing. Mild righ t neural foraminal narrowing. C3-4: Endplate osteophytes, disc bulging, eccentric towards the right Moderate bilateral neural joe inal narrowing. Mild central canal stenosis. C4-5: Circumferential disk osteophytes and mild bilateral facet arthropathy combine to produce mild c entral canal stenosis and severe bilateral neural foraminal narrowing. C5-6: Loss of disk height, circumferential disk bulging and end plate osteophytes combine to cause mo derate central canal stenosis and severe bilateral neural foraminal narrowing. C6-7: Loss of disc height and prominent circumferential disc osteophytosis cause severe central canal stenosis as well as bilateral neural foraminal narrowing. C7-T1: Mild spondylolisthesis secondary to moderate bilateral facet degenerative changes. Slight dis c bulging. IMPRESSION: Multilevel degenerative changes as described above. The findings are worst at C6-7 where there is se kathy central canal stenosis and severe bilateral neural foraminal narrowing. DATA REPOSITORY:
--- NOTE | 2020-07-02 | DI.MRI_ITS ---
CLINICAL HISTORY: LUE/LLE weakness, numbness, tingling, ?CVA. TECHNIQUE: Noncontrast 3D [id number] study. . COMPARISON: None. FINDINGS: Carotid Arteries: Petrous: Normal. Cavernous: Normal. Cerebral: Normal. Middle Cerebral Arteries: Right: No aneurysm or significant stenosis. Left: No aneurysm or significant stenosis. Anterior Cerebral Arteries: Right: No aneurysm or significant stenosis. Left: No aneurysm or significant stenosis. Vertebral Arteries: Right: No aneurysm or significant stenosis. Left: No aneurysm or significant stenosis. . Basilar Artery: No aneurysm or significant stenosis. Small Vessels: No evidence of beading. IMPRESSION: Examination somewhat limited by motion. No occlusion, dissection or significant stenosis. DATA REPOSITORY:
--- NOTE | 2020-07-02 | DI.MRI_ITS ---
EXAM: MR BRAIN WO CLINICAL HISTORY: LUE/LLE numbness/tingling, concern for CVA. TECHNIQUE: Multiplanar multisequence MRI of the brain was performed. CONTRAST MATERIAL: Noncontrast COMPARISON: No exams were available for comparison FINDINGS: The exam is limited by patient motion. VENTRICLES AND EXTRA AXIAL SPACES: Atrophy, disproportionate to the patient's age. HEMORRHAGE: None. CEREBRAL PARENCHYMA: Multiple small foci of high signal in the white matter, consistent with chronic microvascular disease. no focus of restricted diffusion to suggest acute infarct. No space-occupying lesion identified. MIDLINE SHIFT: None. BRAINSTEM/CEREBELLUM: Normal. VISUALIZED PARANASAL SINUSES/MASTOIDS: Clear. OTHER FINDINGS: Vascular flow voids intact. IMPRESSION: Limited examination due to patient motion. Atrophy and white matter changes of microvascular disease . DATA REPOSITORY:
--- NOTE | 2020-07-02 | DI.MRI_ITS ---
EXAM: MR ANGIO NECK WO CLINICAL HISTORY: concern for CVA TECHNIQUE: 2D and 3D [id number] sequences. MIP reconstructions. COMPARISON: No exams were available for comparison FINDINGS: The exam is somewhat limited by paient motion. The common, internal and external carotid arteries as well as bilateral vertebral arteries show no ev idence of occlusion, significant stenosis or dissection. IMPRESSION: No significant stenosis. DATA REPOSITORY:
--- NOTE | 2020-07-02 00:05 | NUR.NOTE ---
Nursing Note: Verbal order from Dr Daniel to start a nitro drip at 10mcg/min.
[2020-07-02] MEDS: Aspirin 81 MG CHEW 324 MG CH (00:28)
[2020-07-02 04:39] LABS: Troponin I < 0.05 ng/mL (<0.06)
[2020-07-02] MEDS: Lactated Ringers 1,000 ML 100 ML IV ×2 (06:40→18:17)
[2020-07-02] MEDS: Ibuprofen 600 MG TAB 400 MG PO (06:55)
[2020-07-02 07:25] LABS: HCT 35.3 % (40.0-50.0); MCH 31.2 pg (27.0-33.0); MCV 91.7 fL (80-95); MPV 10.5 fL (8.0-11.0); Platelet Count 139 10^3/uL (130-400); RBC 3.85 10^6/uL (4.36-5.78); RDW 12.5 % (11.8-14.1); RDW-SD 41.3 fL; WBC 5.84 10^3/uL (4.4-10.8)
[2020-07-02 07:36] LABS: ALT 266 U/L (16-63); AST 374 U/L (15-37)
[2020-07-02 07:43] LABS: Troponin I < 0.05 ng/mL (<0.06)
[2020-07-02 08:30] LABS: C-Reactive Protein 3.07 mg/dL (0.0-0.3); Creatine Kinase 353 U/L (39-308)
[2020-07-02 08:31] LABS: NT-proBNP 85 pg/mL (<300)
[2020-07-02 08:51] LABS: D-Dimer 849 ng/mlFEU (<500)
[2020-07-02 08:53] LABS: Procalcitonin 7.5 ng/mL
[2020-07-02 08:54] LABS: Ferritin 464 ng/mL (26-388)
[2020-07-02 08:56] LABS: Prothrombin Time 10.4 sec (9.3-11.0)
[2020-07-02] MEDS: Venlafaxine 150 MG CAPCR PO (09:36)
[2020-07-02] MEDS: Pantoprazole 40 MG TABCR PO ×2 (09:36→20:32)
[2020-07-02] MEDS: Multivitamin TAB 1 TAB PO (09:37)
[2020-07-02] MEDS: Venlafaxine 37.5 MG CAPCR 75 MG PO (09:37)
[2020-07-02] MEDS: Thiamine 100 MG TAB PO (09:37)
[2020-07-02] MEDS: Folic Acid 1 MG TAB PO (09:37)
[2020-07-02] MEDS: Gabapentin 800 MG TAB PO ×3 (09:37→20:32)
[2020-07-02] MEDS: Aspirin E.C. 81 MG TABEC PO (09:37)
[2020-07-02] MEDS: Insulin Aspart 300 UNITS/3 ML PEN SC ×4 (09:38→20:42)
--- NOTE | 2020-07-02 10:57 | PHA.REVIEW ---
Pharmacy Admission Review - Admission Clinical Review (Last Reviewed 07/01/20 @ 23:34 by Puneet Grajeda MD) Chest pain (Acute) Atypical chest pain (Acute) adhesive Allergy (Intermediate, Unverified 07/01/20 22:38) blisters Height 5 ft 10 in Weight 116.845 kg - Renal Dosing Renal Dosing: BUN 21 mg/dL (7-18) H 07/01/20 22:45 Creatinine 1.49 mg/dL (0.70-1.30) H 07/01/20 22:45 Medications needing adjustments: Reviewed List of meds needing interventions: eCrCl 65 ml/min using adjusted body weight - Anticoagulation Anticoagulation: Hgb 12.0 g/dL (13.5-17.5) L 07/02/20 07:02 Hct 35.3 % (40.0-50.0) L 07/02/20 07:02 Plt Count 139 10^3/uL (130-400) 07/02/20 07:02 INR 1.0 (0.9-1.1) 07/02/20 08:05 Creatinine 1.49 mg/dL (0.70-1.30) H 07/01/20 22:45 DVT Prohphylaxis: Reviewed Medications: Aspirin - Opiate Usage Evaluate Pain Scale/Pains Meds: N/A Scheduled Bowel Reg ordered if on Opiates?: No - Relevant Labs Sodium 138 mmol/L (136-145) 07/01/20 22:45 Potassium 5.1 mmol/L (3.5-5.1) 07/01/20 22:45 Chloride 104 mmol/L (98-107) 07/01/20 22:45 C-Reactive Protein 3.07 mg/dL (0.0-0.3) H 07/02/20 07:02 Electrolytes, C-Reactive P, ESR: Reviewed - DM Control DM Control: Glucose 185 mg/dL (74-106) H 07/01/20 22:45 Finger Stick Blood Glucose 218 Finger Stick Blood Glucose 218 Finger Stick Blood Glucose 248 Insulin Dosing: Reviewed - Heart Failure/DC Heart Failure/DC: Troponin I < 0.05 ng/mL (<0.06) 07/02/20 07:02 NT-Pro-B Natriuret Pep 85 pg/mL (<300) 07/02/20 07:02 EF%, GERMÁN's, B-Blockers, Diuretics: Reviewed - BP Control BP Control: Blood Pressure [Left Arm] 139/122 Blood Pressure 122/66 Blood Pressure 128/70 Blood Pressure 125/72 Blood Pressure 117/62 Blood Pressure 132/70 Blood Pressure 108/55 Blood Pressure 99/68 Blood Pressure 107/60 Blood Pressure 99/83 Blood Pressure 113/76 Blood Pressure 94/57 Blood Pressure 115/72 Blood Pressure 98/65 Blood Pressure 109/73 Blood Pressure 109/79 Blood Pressure 117/87 Blood Pressure 116/65 Blood Pressure 105/62 Blood Pressure 104/60 Blood Pressure 115/68 Blood Pressure 119/70 Blood Pressure 172/125 Blood Pressure 135/87 Blood Pressure 167/127 Blood Pressure 168/130 Blood Pressure 124/98 Blood Pressure 111/51 Blood Pressure 115/62 Blood Pressure 128/59 Blood Pressure 127/68 Blood Pressure 141/61 Blood Pressure 120/41 Blood Pressure 174/89 Blood Pressure 155/85 Blood Pressure 167/75 Blood Pressure 134/80 Blood Pressure 135/87 Blood Pressure 101/66 If elevated: Reviewed List meds needing interventions: lisinopril cancelled for now due to stable/low BPs this am - Qtc Review If Elevated: Reviewed List meds needing interventions: QTc 423 on admission - IV to PO Switch IV Medications: Reviewed - Home Meds Home Med List reviewed: Reviewed Relevent Home Meds Not ordered & why?: oral Peralta, trulicity -- aspart per ss ordered, lisinopril (low bp), ferrous sulfate - Current meds Current Medication Order Review: Reviewed (nitro gtt running at 3mls/hr, heparin to start if trop bumps per md note, trialing PPI, fever of 38.8 this am)
[2020-07-02 11:24] LABS: Source Nasopharynx
[2020-07-02 11:31] LABS: Bilirubin Large (Negative); Blood Negative (Negative); Clarity Clear (Clear); Glucose 250 mg/dL (Negative); Ketones Negative (Negative); Leukocyte Esterase Negative (Negative); Nitrite Negative (Negative); Urobilinogen >=8.0 EU/dL (Up TO 0.2)
--- NOTE | 2020-07-02 11:33 | INITIAL_ITS ---
- If Service Date Differs Date of service: 07/02/20 Time of Service: 11:33 Care Management Initial Assess REASON FOR HOSPITALIZATION:: Chest pain rule out COVID PAST MEDICAL HISTORY/PAST SURGICAL HISTORY:: Gastric bypass. PREVIOUS FUNCTIONAL STATUS/SOCIAL/FAMILY SUPPORTS:: Yung lives in his own home with his spouse he has a daughter that lives in [place]. He uses a CPAP he tries to be as active as he can, he enjoys hunting, snow mobiling and his sled dogs. He is independent and has not other services in the home. CURRENT FUNCTIONAL STATUS:: Yung is alert and engaged over the phone he feels this pain he is having is related to his history of gastric bypass and maybe a stricture. He states that he has not followed up with his GI surgeon and plans to after discharge. Yung wants to be home with his spouse for [place] he is waiting to review this with the Hospiitalist he is in need of furthur work up related to his recent fever and syncopal episodes. ADVANCE DIRECTIVES:: Not on file. Has patient been provided with info about the portal/API?: Yes Did the patient sign up for the portal?: No CODE STATUS:: Full Code INSURANCE COVERAGE / FINANCIAL ISSUES:: Anabella Collins, Medicare CURRENT HOME/COMMUNITY SERVICES/EQUIPMENT:: CPAP through [facility] PRIMARY CARE PHYSICIAN:: PATIENT/FAMILY EDUCATION NEEDS:: Discharge instructions, follow up plan of care ANTICIPATED BARRIERS TO DISCHARGE:: Yung is in need or furthur work up related to his chest pain and fever. TRANSPORTATION:: Via private car with spouse at time of discharge. PLAN:: Yung will be discharge home no additional service when he is medically ready. CM reviewed plan with Yung is going to have a CT scan discharge plan to be determined. He wants to be able to discharge home today to be with his for [place]. His spouse will transport him home at time of discharge.
[2020-07-02 12:04] LABS: COVID-19 PCR Negative (Negative); Influenza A PCR Negative (Negative); Influenza B PCR Negative (Negative); RSV PCR Negative (Negative)
--- NOTE | 2020-07-02 14:05 | W.PM.PROGNOT ---
Date of Service Date of service: 07/02/20 Time of Service: 14:06 Assessment and Plan Assessment and plan (1) Atypical chest pain: Status: Acute Assessment and plan: No ACS by troponins, and pain is atypical. It is somewhat reproducible on my palpation. I am concerned about repeated syncope, though it sounds like it could be vagal. It does sound like nitroglycerin is helping, but chest pain is also somewhat in relationship to the sensation of food being stuck in the esophagus. Nitroglycerin would potentially alleviate chest pain associated with esophageal spasm/issue. Negative cardiac cath at [facility] 3 years ago. Continue to monitor on tele. Check orthostatics. Wean nitroglycerin to see if chest pain gets worse. I do not think it is cardiac. (2) Syncope: Status: Acute Assessment and plan: Recurrent. ?vagal. Continue to monitor on tele. Check orthostatics. Could be caused by sensation of stuck food in the esophagus/vagal stimulus from this. (3) Left-sided weakness: Status: Acute Assessment and plan: C-spine issue vs CVA (4) Fever: Status: Acute Assessment and plan: COVID-19 ruled out. Elevated procalcitonin: suspect aspiration pneumonia. Obtaining imaging. Blood cultures pending. UA negative. Consider intraabdominal source as well. Start zosyn. (5) Dysphagia: Status: Chronic Assessment and plan: Obtain CT. I suspect this is the cause of infectious process - awaiting imaging re possible aspiration pneumonia. NPO. Consider EGD on this admission. (6) Abdominal pain: Status: Acute Assessment and plan: Concern for SBO, gastritis, hepatic pathology. I am not sure about his gallbladder status - could have been removed as part of gastric bypass. Cholecystitis is also possible. Check lipase Obtain CT abdomen/pelvis (7) Non-insulin dependent type 2 diabetes mellitus: Status: Acute Assessment and plan: Hold oral medications. SSI (8) Transaminitis: Status: Acute Assessment and plan: Suspect alcoholic liver disease. However, does have an elevated procalcitonin. Obtaining CT abdomen/pelvis (9) DVT prophylaxis: Status: Acute Assessment and plan: SC lovenox (10) Discharge planning issues: Status: Acute Assessment and plan: Full code Keep in ICU Total Critical Care Time 45 minutes Subjective Subjective Interval history since last seen: Mr Betancur states that he thinks nitroglycerin is helping him. He states that he had two episodes of syncope in 2 days, one of which was preceded by numbness/tingling in his LUE/LLE. He states he sometimes feels dizzy/lightheaded when food gets stuck in his chest (esophagus), which happens quite a bit. He thinks there might be a stricture there. He reports neck pain. He still has slight sensation of tingling in his LUE. He feels dizzy while laying down (lightheaded). He is on nitroglycerin gtt. C/o bloating and epigastric pain. Unable to pass flatus since this morning. States this happens sometimes and he is wondering if this is because of his gastric bypass and if things are blocked. T max 38.8. Exam Narrative Exam Narrative: General: Obese male, A&Ox3, no dyspnea/tachypnea noted, speaking in full sentences HEENT: EOMI, MMM Heart: RRR, no m/r/g; some CP is reproducible with palpation Lungs: CTAB Abdomen: soft, nontender, nondistended Extremities: no e/c/c BLE's, able to move all 4 extremities, does have slight LUE/LLE weakness in comparison to the R. Objective Last Vital Signs Temp 36.8 C 07/02/20 12:00 Pulse 105 H 07/02/20 13:26 Resp 22 07/02/20 13:24 BP 123/80 07/02/20 13:26 Pulse Ox 93 07/02/20 13:26 Laboratory Results - last 24 hr 07/01/20 07/01/20 07/01/20 22:45 22:45 22:45 WBC 6.07 RBC 4.47 Hgb 13.8 Hct 41.0 MCV 91.7 MCH 30.9 MCHC 33.7 RDW 12.6 Plt Count 170 MPV 10.3 Immature Gran % 0.3 Neutrophils % 67.1 Lymphocytes % 23.2 Monocytes % 7.6 Eosinophils % 1.6 Basophils % 0.2 Nucleated RBC % 0 Absolute Neutrophils 4.07 Absolute Lymphocytes 1.41 Absolute Monocytes 0.46 Absolute Eosinophils 0.10 Absolute Basophils 0.01 PT 9.9 INR 1.0 APTT 21.1 D-Dimer VBG pH VBG pCO2 VBG pO2 VBG HCO3 VBG Total CO2 VBG O2 Saturation VBG Base Excess VBG Lactate Sodium 138 Potassium 5.1 Chloride 104 Carbon Dioxide 27.7 Anion Gap 6.3 BUN 21 H Creatinine 1.49 H Estimated GFR/1.73 m2 47.63 Glucose 185 H Calcium 8.9 Ferritin Total Bilirubin 1.1 H AST 166 H ALT 106 H Alkaline Phosphatase 71 Creatine Kinase Troponin I < 0.05 C-Reactive Protein NT-Pro-B Natriuret Pep 47 Total Protein 7.3 Albumin 3.8 Procalcitonin TSH 3.66 Urine Color Urine Clarity Urine pH Ur Specific [place] Urine Protein Urine Ketones Urine Blood Urine Nitrite Urine Bilirubin Urine Urobilinogen Ur Leukocyte Esterase Urine Glucose COVID-19 Source SARS-CoV-2 (PCR) Nasopharyn COVID-19 PCR Influenza Type A (PCR) Influenza Type B (PCR) RSV (PCR) Ref Test Perform Site 07/01/20 07/01/20 07/02/20 22:45 23:30 03:50 WBC RBC Hgb Hct MCV MCH MCHC RDW Plt Count MPV Immature Gran % Neutrophils % Lymphocytes % Monocytes % Eosinophils % Basophils % Nucleated RBC % Absolute Neutrophils Absolute Lymphocytes Absolute Monocytes Absolute Eosinophils Absolute Basophils PT INR APTT D-Dimer VBG pH 7.39 VBG pCO2 44 VBG pO2 39 VBG HCO3 27 VBG Total CO2 24 VBG O2 Saturation 73 VBG Base Excess 2 VBG Lactate Sodium Potassium Chloride Carbon Dioxide Anion Gap BUN Creatinine Estimated GFR/1.73 m2 Glucose Calcium Ferritin Total Bilirubin AST ALT Alkaline Phosphatase Creatine Kinase Troponin I < 0.05 C-Reactive Protein NT-Pro-B Natriuret Pep Total Protein Albumin Procalcitonin TSH Urine Color Urine Clarity Urine pH Ur Specific [place] Urine Protein Urine Ketones Urine Blood Urine Nitrite Urine Bilirubin Urine Urobilinogen Ur Leukocyte Esterase Urine Glucose COVID-19 Source SARS-CoV-2 (PCR) Cancelled Nasopharyn COVID-19 PCR Cancelled Influenza Type A (PCR) Influenza Type B (PCR) RSV (PCR) Ref Test Perform Site Cancelled 07/02/20 07/02/20 07/02/20 07:02 07:02 07:02 WBC 5.84 RBC 3.85 L Hgb 12.0 L Hct 35.3 L MCV 91.7 MCH 31.2 MCHC 34.0 RDW 12.5 Plt Count 139 MPV 10.5 Immature Gran % Neutrophils % Lymphocytes % Monocytes % Eosinophils % Basophils % Nucleated RBC % Absolute Neutrophils Absolute Lymphocytes Absolute Monocytes Absolute Eosinophils Absolute Basophils PT INR APTT D-Dimer VBG pH VBG pCO2 VBG pO2 VBG HCO3 VBG Total CO2 VBG O2 Saturation VBG Base Excess VBG Lactate Sodium Potassium Chloride Carbon Dioxide Anion Gap BUN Creatinine Estimated GFR/1.73 m2 Glucose Calcium Ferritin Total Bilirubin AST ALT 266 H Alkaline Phosphatase Creatine Kinase Troponin I < 0.05 C-Reactive Protein NT-Pro-B Natriuret Pep Total Protein Albumin Procalcitonin TSH Urine Color Urine Clarity Urine pH Ur Specific [place] Urine Protein Urine Ketones Urine Blood Urine Nitrite Urine Bilirubin Urine Urobilinogen Ur Leukocyte Esterase Urine Glucose COVID-19 Source SARS-CoV-2 (PCR) Nasopharyn COVID-19 PCR Influenza Type A (PCR) Influenza Type B (PCR) RSV (PCR) Ref Test Perform Site 07/02/20 07/02/20 07/02/20 07:02 07:02 07:02 WBC RBC Hgb Hct MCV MCH MCHC RDW Plt Count MPV Immature Gran % Neutrophils % Lymphocytes % Monocytes % Eosinophils % Basophils % Nucleated RBC % Absolute Neutrophils Absolute Lymphocytes Absolute Monocytes Absolute Eosinophils Absolute Basophils PT INR APTT D-Dimer VBG pH VBG pCO2 VBG pO2 VBG HCO3 VBG Total CO2 VBG O2 Saturation VBG Base Excess VBG Lactate Sodium Potassium Chloride Carbon Dioxide Anion Gap BUN Creatinine Estimated GFR/1.73 m2 Glucose Calcium Ferritin 464 H Total Bilirubin AST 374 H ALT Alkaline Phosphatase Creatine Kinase 353 H Troponin I C-Reactive Protein 3.07 H NT-Pro-B Natriuret Pep 85 Total Protein Albumin Procalcitonin TSH Urine Color Urine Clarity Urine pH Ur Specific [place] Urine Protein Urine Ketones Urine Blood Urine Nitrite Urine Bilirubin Urine Urobilinogen Ur Leukocyte Esterase Urine Glucose COVID-19 Source SARS-CoV-2 (PCR) Nasopharyn COVID-19 PCR Influenza Type A (PCR) Influenza Type B (PCR) RSV (PCR) Ref Test Perform Site 07/02/20 07/02/20 07/02/20 08:05 08:05 08:05 WBC RBC Hgb Hct MCV MCH MCHC RDW Plt Count MPV Immature Gran % Neutrophils % Lymphocytes % Monocytes % Eosinophils % Basophils % Nucleated RBC % Absolute Neutrophils Absolute Lymphocytes Absolute Monocytes Absolute Eosinophils Absolute Basophils PT 10.4 INR 1.0 APTT D-Dimer 849 H VBG pH VBG pCO2 VBG pO2 VBG HCO3 VBG Total CO2 VBG O2 Saturation VBG Base Excess VBG Lactate 2.0 H Sodium Potassium Chloride Carbon Dioxide Anion Gap BUN Creatinine Estimated GFR/1.73 m2 Glucose Calcium Ferritin Total Bilirubin AST ALT Alkaline Phosphatase Creatine Kinase Troponin I C-Reactive Protein NT-Pro-B Natriuret Pep Total Protein Albumin Procalcitonin 7.5 TSH Urine Color Urine Clarity Urine pH Ur Specific [place] Urine Protein Urine Ketones Urine Blood Urine Nitrite Urine Bilirubin Urine Urobilinogen Ur Leukocyte Esterase Urine Glucose COVID-19 Source SARS-CoV-2 (PCR) Nasopharyn COVID-19 PCR Influenza Type A (PCR) Influenza Type B (PCR) RSV (PCR) Ref Test Perform Site 07/02/20 07/02/20 07/02/20 11:00 11:06 11:06 WBC RBC Hgb Hct MCV MCH MCHC RDW Plt Count MPV Immature Gran % Neutrophils % Lymphocytes % Monocytes % Eosinophils % Basophils % Nucleated RBC % Absolute Neutrophils Absolute Lymphocytes Absolute Monocytes Absolute Eosinophils Absolute Basophils PT INR APTT D-Dimer VBG pH VBG pCO2 VBG pO2 VBG HCO3 VBG Total CO2 VBG O2 Saturation VBG Base Excess VBG Lactate Sodium Potassium Chloride Carbon Dioxide Anion Gap BUN Creatinine Estimated GFR/1.73 m2 Glucose Calcium Ferritin Total Bilirubin AST ALT Alkaline Phosphatase Creatine Kinase Troponin I C-Reactive Protein NT-Pro-B Natriuret Pep Total Protein Albumin Procalcitonin TSH Urine Color Samantha Urine Clarity Clear Urine pH 7.0 Ur Specific [place] 1.020 Urine Protein Negative Urine Ketones Negative Urine Blood Negative Urine Nitrite Negative Urine Bilirubin Large H Urine Urobilinogen >=8.0 Ur Leukocyte Esterase Negative Urine Glucose 250 H COVID-19 Source Nasopharynx SARS-CoV-2 (PCR) Cancelled Negative Nasopharyn COVID-19 PCR Cancelled Influenza Type A (PCR) Negative Influenza Type B (PCR) Negative RSV (PCR) Negative Ref Test Perform Site Cancelled
[2020-07-02] MEDS: Normal Saline Flush 10 ML SYR IVP ×2 (14:46→18:11)
--- NOTE | 2020-07-02 15:13 | DI.CT_ITS ---
EXAM: CT CHEST/ABD/PEL WO CLINICAL HISTORY: concern for aspiration pneumonia, SBO, dysphagia. TECHNIQUE: Imaging Protocol: Axial computed tomography images with coronal and sagittal reformatted images were created and reviewed CONTRAST MATERIAL: Intravenous: Noncontrast Oral: Yes COMPARISON: CT CT CHEST PE CTA from 03/06/2020 FINDINGS: CHEST: The lung lungs are suboptimally evaluated due to low respiratory motion. Thyroid: Unremarkable Tracheobronchial tree: Patent where visualized. Mediastinum and Velma: No dominant adenopathy or fluid collection. Pulmonary parenchyma: No consolidation or dominant measurable mass. No architectural distortion. Pleura: No effusion or pneumothorax. Lymph nodes: Within normal limits. Aorta: Thoracic portion non-dilated. Heart: Normal size. Old sternal fracture. Bones: Degenerative changes in the spine. ABDOMEN: Liver: Enlarged. Severe fatty infiltration. No measurable mass. Gallbladder and biliary tract: Layering stones versus sludge. No biliary dilatation. Pancreas: Atrophic. no abnormal calcifications or inflammatory process. Spleen: Normal. Kidneys: Normal size, contour and axis. No radiodense stones or obstructive uropathy. No masses seen. Small right renal cyst. Adrenal glands: No masses seen. Aorta: Abdominal portion non-dilated. Lymph nodes: Within normal limits. PELVIS: Bladder: Symmetric distention, no gross wall thickening. Bowel: Suture material at the stomach with gastric bypass. This appears to intact and nondistended. Mild nonspecific small bowel distention without definite obstruction. No bowel wall thickening. No rmal appendix. Peritoneal cavity: No ascites, collection or mesenteric inflammatory response. Bones: Degenerative changes. Reproductive organs: Penile prosthesis. Prostate normal size. IMPRESSION: No evidence of pneumonia or other acute abnormality in the chest. Mild nonspecific small bowel dilatation without definite evidence of obstruction. Fatty liver. prev ious gastric bypass. RADIATION DOSE DELIVERED: 1,804.1mGy.cm Total DLP DATA REPOSITORY: All CT scans at this facility are submitted to the National Radiology Data Registry (NRDR) Dose Index Registry (DIR) with the [employer] ([employer]). RADIATION OPTIMIZATION: All CT scans at this facility use at least one of these dose optimization te chniques: automated exposure control; mA and/or kV adjustment per patient size (includes targeted exa ms where dose is matched to clinical indication); or iterative reconstruction.
[2020-07-02 15:45] LABS: Lipase 76 U/L (73-393)
--- NOTE | 2020-07-02 15:55 | DI.VRAD_ITS ---
PROCEDURE INFORMATION: Exam: CT Chest Without Contrast; Diagnostic Exam date and time: 07/02/2020 3:14 PM Age: 64 years old Clinical indication: Condition or disease; Other: ? Pneumonia; Patient HX: Sbo, concern for aspiration pneumonia. Dysphagia TECHNIQUE: Imaging protocol: Diagnostic computed tomography of the chest without contrast. Radiation optimization: All CT scans at this facility use at least one of these dose optimization techniques: automated exposure control; mA and/or kV adjustment per patient size (includes targeted exams where dose is matched to clinical indication); or iterative reconstruction. Other contrast: Oral, breeza, 473; COMPARISON: No relevant prior studies available. FINDINGS: Lungs: Slight subpleural scarring throughout both lungs. No suspicious nodule, mass, nor infiltrate identified. Pleural space: Unremarkable. No pneumothorax. No pleural effusion. Heart: Unremarkable. No cardiomegaly. No pericardial effusion. Aorta: Unremarkable. No aortic aneurysm. Lymph nodes: Unremarkable. No enlarged lymph nodes. Bones/joints: Degenerative arthritis in the spine and shoulders. Suture anchor in the right humeral head. Soft tissues: Unremarkable. Other findings: Images are degraded by motion. Minimal vascular calcifications. IMPRESSION: 1. No acute findings in the chest. 2. Slight subpleural scarring in both lungs. 3. Images are degraded by motion. PROCEDURE INFORMATION: Exam: CT Abdomen And Pelvis Without Contrast Exam date and time: 07/02/2020 3:14 PM Age: 64 years old Clinical indication: Condition or disease; Other: ? Pneumonia; Patient HX: Sbo, concern for aspiration pneumonia. Dysphagia TECHNIQUE: Imaging protocol: Computed tomography of the abdomen and pelvis without contrast. Radiation optimization: All CT scans at this facility use at least one of these dose optimization techniques: automated exposure control; mA and/or kV adjustment per patient size (includes targeted exams where dose is matched to clinical indication); or iterative reconstruction. Other contrast: Oral, breeza, 473; COMPARISON: No relevant prior studies available. FINDINGS: Liver: Marked fatty infiltration of liver. Gallbladder and bile ducts: Cholelithiasis. Pancreas: Fatty infiltration of the pancreatic parenchyma. Spleen: Normal. No splenomegaly. Adrenal glands: Normal. No mass. Kidneys and ureters: 2.2 cm exophytic low-density lesion arising from the mid right kidney. This has appearance most consistent with a benign cyst. No further imaging workup recommended. Stomach and bowel: Moderate amount of stool in the colon. Postoperative changes of gastric bypass. No evidence of bowel obstruction. Appendix: No evidence of appendicitis. Intraperitoneal space: Unremarkable. No free air. No significant fluid collection. Vasculature: Minimal vascular calcifications. Lymph nodes: Unremarkable. No enlarged lymph nodes. Urinary bladder: Unremarkable as visualized. Reproductive: Penile prosthesis with reservoir in the right lower quadrant. Bones/joints: Mild degenerative arthritis in the spine and pelvis. Soft tissues: Unremarkable. Other findings: Images are degraded by motion. IMPRESSION: 1. No acute findings in the abdomen and pelvis. 2. Gastric bypass. No evidence of bowel obstruction. 3. Marked fatty liver. 4. Cholelithiasis. 5. Penile prosthesis. Dictated and Authenticated by: Barb Martinez MD. Ordering:NOHELIA Golden MD
--- NOTE | 2020-07-02 16:42 | DI.VRAD_ITS ---
PROCEDURE INFORMATION: Exam: MR Angiography Neck Without Contrast Exam date and time: 07/02/2020 4:27 PM Age: 64 years old Clinical indication: Patient HX: Lue/lle weakness, tingling, ? CVA TECHNIQUE: Imaging protocol: Magnetic resonance angiography of the neck without contrast. 3D rendering (Not supervised by radiologist): MIP and/or 3D reconstructed images were created by the technologist. COMPARISON: MRI - CERVICAL SPINE WO CONT 12/23/2014 3:26 PM FINDINGS: Right common carotid artery: No stenosis. No dissection or occlusion. Right internal carotid artery: No stenosis of the extracranial segment. No dissection or occlusion. Right external carotid artery: No stenosis. No dissection or occlusion of the origin. Right vertebral artery: No stenosis. No dissection or occlusion. Left common carotid artery: No stenosis. No dissection or occlusion. Left internal carotid artery: No stenosis of the extracranial segment. No dissection or occlusion. Left external carotid artery: No stenosis. No dissection or occlusion of the origin. Left vertebral artery: No stenosis. No dissection or occlusion. Other findings: Images are degraded by motion. IMPRESSION: 1. Images are degraded by motion but no stenosis is identified in the bilateral carotid arteries and vertebral arteries. REFERENCES: NASCET CRITERIA. The degree of internal carotid artery stenosis is based on NASCET criteria. Normal is no stenosis. Mild is less than 50% stenosis. Moderate is 50-69% stenosis. Severe is 70% to 99% stenosis. Total occlusion is no detectable patent lumen. Dictated and Authenticated by: Barb Martinez MD. Ordering:NOHELIA Golden MD
--- NOTE | 2020-07-02 17:31 | DI.VRAD_ITS ---
PROCEDURE INFORMATION: Exam: MR Angiogram Head Without Contrast, Arteries Exam date and time: 07/02/2020 5:13 PM Age: 64 years old Clinical indication: Patient HX: Lue/lle weakness, numbness, tingling, ? CVA TECHNIQUE: Imaging protocol: MR angiogram head without contrast. Exam focused on the arteries. 3D rendering (Not supervised by radiologist): MIP and/or 3D reconstructed images were created by the technologist. COMPARISON: CT HEAD AND CSPINE W/O CONTRAST 11/27/2017 8:47 PM FINDINGS: ANTERIOR CIRCULATION: Right internal carotid artery: Intracranial segment is patent with no significant stenosis. No aneurysm. Right middle cerebral artery: No occlusion or significant stenosis. No aneurysm. Right anterior cerebral artery: No occlusion or significant stenosis. No aneurysm. Left internal carotid artery: Intracranial segment is patent with no significant stenosis. No aneurysm. Left middle cerebral artery: No occlusion or significant stenosis. No aneurysm. Left anterior cerebral artery: No occlusion or significant stenosis. No aneurysm. POSTERIOR CIRCULATION: Right vertebral artery: No occlusion or significant stenosis. No aneurysm. Left vertebral artery: No occlusion or significant stenosis. No aneurysm. Basilar artery: No occlusion or significant stenosis. No aneurysm. Right posterior cerebral artery: No occlusion or significant stenosis. No aneurysm. Left posterior cerebral artery: No occlusion or significant stenosis. No aneurysm. IMPRESSION: No stenosis or occlusion. Images are degraded by motion. Dictated and Authenticated by: Barb Martinez MD. Ordering:NOHELIA Golden MD
--- NOTE | 2020-07-02 17:41 | DI.VRAD_ITS ---
PROCEDURE INFORMATION: Exam: MR Cervical Spine Without Contrast Exam date and time: 07/02/2020 5:13 PM Age: 64 years old Clinical indication: Patient HX: Lle/lue weakness, numbness, tingling, ? CVA TECHNIQUE: Imaging protocol: Multiplanar magnetic resonance images of the cervical spine without contrast. COMPARISON: MRI - CERVICAL SPINE WO CONT 12/23/2014 3:26 PM FINDINGS: Vertebrae: Images are degraded by motion. Vertebral bodies are normal height. No fracture identified. Stable slight retrolisthesis C5 on C6 and C6 on C7. New slight anterolisthesis of C7 on T1. No worrisome bone lesions. Spinal cord: Normal signal. Stable compression of cord which is flattened in AP dimension at C6-C7. C2-C3: No appreciable change. Posterior disc bulge. Moderate facet arthropathy on the. Mild facet arthropathy on the right. Moderate to severe left foraminal narrowing. Mild right foraminal narrowing. Patent central canal.. C3-C4: Slight progression of loss of disc height, posterior disc bulge with endplate osteophyte formation and right posterolateral disc osteophyte complex.. Moderate bilateral facet arthropathy. Severe bilateral foraminal narrowing, worse on right. Mild central canal narrowing. C4-C5: Progression loss of disc height, generalized disc bulge with circumferential endplate osteophyte formation. Mild bilateral facet arthropathy. Severe bilateral foraminal narrowing. Mild central canal narrowing. C5-C6: Progression of loss of disc height, generalized disc bulge, circumferential endplate osteophyte formation and bilateral posterolateral disc osteophyte complexes. Normal facets. Moderate central canal narrowing. Severe bilateral foraminal narrowing. C6-C7: No appreciable change. Loss of disc height. Circumferential peripheral disc displacement endplate osteophyte formation. Normal facets. Severe narrowing of the central canal and bilateral neural foramen. C7-T1: New slight anterolisthesis of C7 on T1. Progression of moderate bilateral facet arthropathy. New slight posterior disc bulge. The central canal and neural foramen appear patent. Vertebral arteries: Expected flow voids in the vertebral arteries. Soft tissues: Unremarkable. IMPRESSION: 1. Progression of degenerative disc disease with disc bulging and endplate osteophytes C3-C4, C4-C5 and C5-C6. 2. Severe bilateral foraminal narrowing at C3-C4, C4-C5, C5-C6, and C6-C7. 3. Moderate to severe left foraminal narrowing at C2-C3 4. Stable severe central canal narrowing at C6-C7 5. Images are degraded by motion Dictated and Authenticated by: Barb Martinez MD. Ordering:NOHELIA Golden MD
--- NOTE | 2020-07-02 17:43 | DI.VRAD_ITS ---
PROCEDURE INFORMATION: Exam: MR Head Without Contrast Exam date and time: 07/02/2020 5:13 PM Age: 64 years old Clinical indication: Other: Lle/lue weakness, numbness, tingling; Patient HX: ? CVA TECHNIQUE: Imaging protocol: MR of the head without contrast. 3D rendering (Not supervised by radiologist): MIP and/or 3D reconstructed images were created by the technologist. COMPARISON: CT HEAD AND CSPINE W/O CONTRAST 11/27/2017 8:47 PM FINDINGS: Brain: Images are degraded by motion. Few tiny foci of increased T2 and increased FLAIR signal in the periventricular and deep white matter of the cerebral hemispheres, in a pattern consistent chronic small vessel ischemic change. Cerebral ventricles: Normal. No ventriculomegaly. Bones/joints: Unremarkable. Paranasal sinuses: Mild membrane thickening in ethmoid sinuses. Mastoid air cells: Normal as visualized. No mastoid effusion. Orbits: Unremarkable. Soft tissues: Unremarkable. IMPRESSION: 1. No acute findings 2. Minimal chronic small vessel white matter ischemic change. 3. Mild ethmoid sinusitis. Dictated and Authenticated by: Barb Martinez MD. Ordering:NOHELIA Golden MD
[2020-07-02] MEDS: PIPERACILLIN/TAZO 3.375 GM in Normal Saline 50 ML IVPB ×2 (18:13→23:50)
[2020-07-02] MEDS: Normal Saline 500 ML IV (18:15)
[2020-07-02] MEDS: Acetaminophen 325 MG TAB 650 MG PO (20:30)
[2020-07-02] MEDS: Tamsulosin 0.4 MG CAPCR PO (21:24)
[2020-07-03] VITALS (15 sets, daily range): BP systolic 122–145; BP diastolic 71–89; PULSE 76–88; RESP 13–18; TEMP 36.5–38; O2SAT 92–97
[2020-07-03] MEDS: Lactated Ringers 1,000 ML 100 ML IV ×2 (03:56→17:44)
[2020-07-03] MEDS: PIPERACILLIN/TAZO 3.375 GM in Normal Saline 50 ML IVPB ×3 (05:33→17:58)
[2020-07-03 06:01] LABS: Abs Immature Grans 0.01 10^3/uL (0.0-0.06); Absolute Basophil Count 0.01 10^3/uL (0.0-0.2); Absolute Eosinophil Count 0.11 10^3/uL (0.0-0.7); Absolute Monocyte Count 0.44 10^3/uL (0.1-0.8); Basophils % 0.2; Eosinophils % 2.4; HCT 34.8 % (40.0-50.0); HGB 11.8 g/dL (13.5-17.5); Immature Grans % 0.2; Lymphocytes % 15.3; MCH 31.2 pg (27.0-33.0); MCHC 33.9 % (32.0-36.0); MCV 92.1 fL (80-95); MPV 10.1 fL (8.0-11.0); Monocytes % 9.6; Neutrophils % 72.3; Nucleated RBC 0 %; Platelet Count 116 10^3/uL (130-400); RBC 3.78 10^6/uL (4.36-5.78); RDW 12.7 % (11.8-14.1); RDW-SD 42.6 fL; WBC 4.57 10^3/uL (4.4-10.8)
[2020-07-03 06:20] LABS: ALT 243 U/L (16-63); AST 144 U/L (15-37); Albumin 3.1 g/dL (3.4-5.0); Alkaline Phosphatase 83 U/L (46-116); Anion Gap 9.5 mmol/L (3-11); BUN 15 mg/dL (7-18); Bilirubin, Direct 5.19 mg/dL (0.00-0.20); Bilirubin, Total 5.7 mg/dL (0.2-1.0); C-Reactive Protein 13.93 mg/dL (0.0-0.3); CO2 23.5 mmol/L (21.0-32.0); Calcium 8.9 mg/dL (8.5-10.1); Chloride 103 mmol/L (98-107); Creatine Kinase 133 U/L (39-308); Glucose 229 mg/dL (74-106); Magnesium 1.6 mg/dL (1.8-2.4); Sodium 136 mmol/L (136-145); Total Protein 6.4 g/dL (6.4-8.2)
[2020-07-03 06:26] LABS: Hemoglobin A1C 8.2 % (<5.7)
[2020-07-03] MEDS: Insulin Aspart 300 UNITS/3 ML PEN SC ×4 (07:41→21:45)
[2020-07-03] MEDS: Aspirin E.C. 81 MG TABEC PO (07:42)
[2020-07-03] MEDS: Thiamine 100 MG TAB PO (07:43)
[2020-07-03] MEDS: Folic Acid 1 MG TAB PO (07:43)
[2020-07-03] MEDS: Gabapentin 800 MG TAB PO ×3 (07:43→19:36)
[2020-07-03] MEDS: Venlafaxine 150 MG CAPCR PO (07:43)
[2020-07-03] MEDS: Venlafaxine 37.5 MG CAPCR 75 MG PO (07:43)
[2020-07-03] MEDS: Multivitamin TAB 1 TAB PO (07:43)
[2020-07-03] MEDS: MAGNESIUM SULFATE 2 GM/50 ML BAG IVPB (07:47)
[2020-07-03] MEDS: Normal Saline Flush 10 ML SYR IVP ×3 (07:48→19:37)
[2020-07-03] MEDS: Pantoprazole 40 MG VIAL IVP ×2 (07:48→19:36)
[2020-07-03 08:30] LABS: Lactate 0.9 mmol/L (0.6-1.4)
--- NOTE | 2020-07-03 11:57 | PGE_ITS ---
Date of Service Date of service: 07/03/20 Time of Service: 11:57 Assessment and Plan Assessment and plan (1) Atypical chest pain: Status: Acute Assessment and plan: No ACS by troponins. MSK and esophageal components suspected. This has now resolved. Continue PPI BID. Off nitroglycerin gtt. I am concerned about repeated syncope, though it sounds like it could be vagal due to esophageal vagal stimulation rather than cardiogenic. I have consulted general surgery re possible esophagitis. Negative cardiac cath at [facility] [place], [place] 3 years ago. Continue to monitor on tele. I do not think chest pain is cardiac. (2) Syncope: Status: Acute Assessment and plan: Recurrent. ?vagal from sensation of food getting stuck in esophagus. Continue to monitor on tele. Orthostatic VS ok so far, but will recheck prior to ambulation. (3) Left-sided weakness: Status: Acute Assessment and plan: Resolved. Likely due to C-spine issues - does have degenerative changes on MRI. No CVA. (4) Fever: Status: Acute Assessment and plan: COVID-19 ruled out. However, fever recurred. Given lab abnormalities, Ddx: cholecystitis, hepatitis, ?Lyme. Elevated procalcitonin suggests bacterial disease. UTI/PNA ruled out. Repeat blood cultures. Original cultures are negative. Continue empiric zosyn (day 2). (5) Dysphagia: Status: Chronic Assessment and plan: ?esophageal stricture. NPO. Consider EGD on this admission. (6) Abdominal pain: Status: Acute Assessment and plan: Now resolved and the patient has had a BM this morning. CT with gallbladder sludge, nonspecific small bowel dilatation. General surgery is consulted. Keep NPO. (7) Non-insulin dependent type 2 diabetes mellitus: Status: Acute Assessment and plan: Hold oral medications. SSI (8) Transaminitis: Status: Acute Assessment and plan: ?EtOH liver disease, cholecystitis, hepatitis, Tick- borne illness. Obtain hepatitis panel. Await general surgery consult. Obtain tick studies. (9) DVT prophylaxis: Status: Acute Assessment and plan: SC lovenox (10) Discharge planning issues: Status: Acute Assessment and plan: Full code Transfer out of ICU Subjective Subjective Interval history since last seen: Mr Betancur states that he is feeling better today. He had a BM (ho, per nursing). His chest pain, neck pain, dizziness, RUQ pain, epigastric pain, abdominal distention have all resolved. However, he is febrile - 38.1. Exam Narrative Exam Narrative: General: Obese male, A&Ox3, looks better than yesterday HEENT: EOMI, MMM Heart: RRR, no m/r/g; Lungs: CTAB Abdomen: soft, nontender, nondistended (his abdomen yesterday afternoon looked a lot more distended and was tender in epigastrium/RUQ; these findings are absent now) Extremities: no e/c/c BLE's, able to move all 4 extremities, No redness/pain over B TKR scars Objective Last Vital Signs Temp 38.0 C H 07/03/20 10:00 Pulse 80 07/03/20 09:52 Resp 14 07/03/20 06:01 BP 133/74 07/03/20 09:52 Pulse Ox 95 07/03/20 08:01 Laboratory Results - last 24 hr 07/01/20 07/02/20 07/02/20 23:30 07:10 11:06 WBC RBC Hgb Hct MCV MCH MCHC RDW Plt Count MPV Immature Gran % Neutrophils % Lymphocytes % Monocytes % Eosinophils % Basophils % Nucleated RBC % Absolute Neutrophils Absolute Lymphocytes Absolute Monocytes Absolute Eosinophils Absolute Basophils VBG Lactate Sodium Potassium Chloride Carbon Dioxide Anion Gap BUN Creatinine Estimated GFR/1.73 m2 Glucose Hemoglobin A1c Calcium Magnesium Total Bilirubin Conjugated Bilirubin AST ALT Alkaline Phosphatase Creatine Kinase C-Reactive Protein Total Protein Albumin Lipase 76 COVID-19 Source Nasopharynx SARS-CoV-2 (PCR) Cancelled Negative Nasopharyn COVID-19 PCR Cancelled Influenza Type A (PCR) Negative Influenza Type B (PCR) Negative RSV (PCR) Negative Ref Test Perform Site Cancelled 07/03/20 07/03/20 07/03/20 05:51 05:51 05:51 WBC 4.57 RBC 3.78 L Hgb 11.8 L Hct 34.8 L MCV 92.1 MCH 31.2 MCHC 33.9 RDW 12.7 Plt Count 116 L MPV 10.1 Immature Gran % 0.2 Neutrophils % 72.3 Lymphocytes % 15.3 Monocytes % 9.6 Eosinophils % 2.4 Basophils % 0.2 Nucleated RBC % 0 Absolute Neutrophils 3.30 Absolute Lymphocytes 0.70 L Absolute Monocytes 0.44 Absolute Eosinophils 0.11 Absolute Basophils 0.01 VBG Lactate Sodium 136 Potassium 4.0 D Chloride 103 Carbon Dioxide 23.5 Anion Gap 9.5 BUN 15 D Creatinine 1.20 Estimated GFR/1.73 m2 >= 60.00 Glucose 229 H Hemoglobin A1c 8.2 H Calcium 8.9 Magnesium 1.6 L Total Bilirubin 5.7 H Conjugated Bilirubin 5.19 H AST 144 H ALT 243 H Alkaline Phosphatase 83 Creatine Kinase 133 C-Reactive Protein 13.93 H Total Protein 6.4 Albumin 3.1 L Lipase COVID-19 Source SARS-CoV-2 (PCR) Nasopharyn COVID-19 PCR Influenza Type A (PCR) Influenza Type B (PCR) RSV (PCR) Ref Test Perform Site 07/03/20 08:18 WBC RBC Hgb Hct MCV MCH MCHC RDW Plt Count MPV Immature Gran % Neutrophils % Lymphocytes % Monocytes % Eosinophils % Basophils % Nucleated RBC % Absolute Neutrophils Absolute Lymphocytes Absolute Monocytes Absolute Eosinophils Absolute Basophils VBG Lactate 0.9 Sodium Potassium Chloride Carbon Dioxide Anion Gap BUN Creatinine Estimated GFR/1.73 m2 Glucose Hemoglobin A1c Calcium Magnesium Total Bilirubin Conjugated Bilirubin AST ALT Alkaline Phosphatase Creatine Kinase C-Reactive Protein Total Protein Albumin Lipase COVID-19 Source SARS-CoV-2 (PCR) Nasopharyn COVID-19 PCR Influenza Type A (PCR) Influenza Type B (PCR) RSV (PCR) Ref Test Perform Site
[2020-07-03 13:07] LABS: Calculated LDL 89 mg/dL (<100); Cholesterol 141 mg/dL (<200); GGT 521 U/L (15-85); HDL Cholesterol 15 mg/dL (40-60); Triglyceride 188 mg/dL (<150)
[2020-07-03] MEDS: LORazepam 1 MG TAB PO/SL (16:35)
--- NOTE | 2020-07-03 16:35 | CMPROGNOTE_ITS ---
- If Service Date Differs Date of service: 07/03/20 Time of Service: 16:35 Care Management Progress Note S/O: Yung was sitting up in bed when CM met with him. He stated that he is feeling somewhat better but that there are still questions about the etiology of his varied symptoms. Yung was febrile this morning (38.0) but otherwise, his vital signs are stable. Dr. Coe saw him in consultation this afternoon and plans to do an EGD tomorrow. Yung shared that he is really sad that he can't be with his today, on . CM offered to set up a video session utilizing the [employer] tablet and his 's cell phone. Yung expressed excitement about the prospect however, asked that it be delayed until this evening as he began to have some chest pain. CM shared the request with his evening nurse and will follow up tomorrow. A: Yung is a 64 year old man admitted on 07/02/20 with chest pain. P:Yung will be discharged home with no additional service when he is medically ready. He wanted to be able to discharge home today to be with his for , however fever and a surgical consult changed the plan. Yung will have an EGD tomorrow. His spouse will transport him home at time of discharge. CM will continue to support Yung and his family and assess for discharge planning n eeds. cc:
[2020-07-03] MEDS: Tamsulosin 0.4 MG CAPCR PO (21:44)
[2020-07-03] MEDS: Insulin Glargine 300 UNITS/3 ML PEN SC (21:47)
--- NOTE | 2020-07-03 23:02 | SCONE_ITS ---
Date of service: 07/03/20 Time of Service: 14:00 Assessment and Plan Assessment and plan (1) Non-insulin dependent type 2 diabetes mellitus: Status: Acute (2) Dysphagia: Status: Chronic (3) Syncope: Status: Resolved Assessment and plan: Patient had a pharmacological stress echo on 01/26 at [facility]. He had no acute ST-T wave changes. His EF was 60%. He did not bring on any syncope or chest pain (4) Liver cirrhosis secondary to nonalcoholic steatohepatitis (HERR): Status: Acute (5) Alcoholic cirrhosis of liver without ascites: Status: Chronic (6) S/P gastric bypass: Status: Chronic Assessment and plan: Informed consent is obtained for the procedural (explained in simple layman's terms that the pt and/or family could understand) explaining risks vs benefits and alternatives to the procedure and consequences if we do not do the procedure and need/rational for the procedure. Risks include but are not limited to: bleeding, infection, perforation of esophagus, stomach, colon, small intestines, bronchus or trachea, or PTX. This would necessitate emergency surgery to repair the damage w/ possible ostomy; and other associated complications w/ the required surgery. Also complications of anesthesia including aspiration, MD/CVA/. Patient saw GI as recently as 12/27. He was still having the same symptoms. They were going to treat him for reflux and reassess. If he was still having symptoms then they recommended that he go for revision of his Keiko-en-Y gastric bypass. As they thought he was having reflux and this was causing his symptoms. (7) Gallbladder sludge: Status: Acute Assessment and plan: Common bile duct is normal on CT. There is no thickening of the gallbladder wall. There is no pericholecystic fluid. Gallbladder is mildly enlarged. There is some layering sludge but no large stones. Amylase and lipase were not done. He does have significantly elevated LFTs. T bilirubin is 5. Patient denies any right upper quadrant pain. He denies any fatty food intolerance. He says he gets chest pain when he eats. He denies any true fatty food intolerance. The pain he describes it is more substernal not really abdominal. It does not radiate into his back or shoulder. He has problems with constipation and diarrhea. He denies eating any fatty foods or pork. He has had gastric bypass. He had a barium study at [facility] in 2018which showed he was having GERD. They did start him on PPI. He had an EGD in 2016 which also showed some esophagitis and a small hiatal hernia. He saw GI in December 2018 for similar signs and symptoms. They recommended eating small meals and treating for reflux. He definitely has some sludge in his gallbladder but no large stones. Nothing that would be causing a bile duct obstruction. His bile duct was normal in caliber on CT. I do not think his elevated LFTs are from a gallstone in the bile duct. He did not have an elevated white count. I do not think his elevated LFTs are from gallbladder disease. He has an very enlarged liver and would be at very high risk for operative bleeding. (8) Diabetes mellitus type II, uncontrolled: Status: Chronic (9) Elevated bilirubin: Status: Resolved Assessment and plan: unclear of the etiology. MRCP ordered but not available until monday stones vs etoh cirrhosis vs HERR- and mostly likely a combination of all 3. Viral hepatitis panel ordered. May require liver BX to distinguish. no ascies at t this time. MELD score is low. no signs of ETOH w/ drawl. At this point pt does not give a hx of fatty food/any food intolerance or diarrhea,gas,bloating. He has no pain at this point. Don't think there is any need for abx. cont on PPI. no asa/nsaids. plan egd in am. further rec to follow History of Present Illness Narrative: pt was admitted on 07/01 w/ CP adn syncope. Cardiac involvement was ruled out by the hospitalist. He has been having these episodes when he eats. He gets severe chest pain and then syncope. The hospitalist that he is having vasovagal episodes. He feels like he is full and bloated and nothing is going through. He had a lap gastric bypas in 2006. He has developed problems w/ swallowing- things feel like they get to the GE junction and than it won't go down. He has not vomitied. He has been having pain and actually passed out twice from pain. Nitro didn't help adn trop were neg. CT results were re viewed. Hw is on asa daily and also takes protonix. He is a former smoker. He has shad an EGD in the past- not w/ in the past 2 wyrs. I did review his chart from [facility]. GI thinks that he has a combination of reflux and problems stem from his gastric bypass. He has seen GI and cardiology at [facility]. He had a EGD in 2017 and an upper GI in 2018. He also had a stress echo recently at [facility], about 6 months ago, and this was negative. He is on Protonix and aspirin. He has never had elevated LFTs in the past. He says he does not eat greasy or fried foods. He really denies fatty food intolerance. He says his bowels are regular and he denies any issues with diarrhea or fecal urgency. He has some early dementia and is a poor historian. The information is gleaned from him and his and his chart. 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) Alcoholic cirrhosis of liver without ascites Anxiety (07/16/14) Benign neoplasm of colon (08/15/11) BPH (benign prostatic hyperplasia) Degenerative cervical spinal stenosis (12/23/14) Depression (07/16/14) Diabetes mellitus type II, uncontrolled Elevated bilirubin Erectile dysfunction (06/19/14) Gallbladder sludge GERD (gastroesophageal reflux disease) Hyperlipidemia (05/16/13) Hypertension Liver cirrhosis secondary to nonalcoholic steatohepatitis (HERR) Non-insulin dependent type 2 diabetes mellitus Obesity (BMI 35.0-39.9 without comorbidity) Sensorineural hearing loss, bilateral (01/06/17) Surgical History (Updated 07/06/20 @ 11:06 by Laron Fam) bunionectomy (07/18/14) Left Dr Márquez H/O gastric bypass Repair of inguinal hernia Repair, ACL Rotator Cuff Repair S/P gastric bypass Family History Mother Alzheimer disease Social History Smoking/Tobacco Use Status: Former Tobacco Use Smoking risk assessment performed?: Yes Alcohol Intake: current Alcohol Intake frequency: a few times a month Alcohol type: beer Drug use: Never Substance use type: does not use Do you feel safe at home: Yes Do you feel safe in your relationship?: Yes Exam Const General: cooperative, healthy appearing, comfortable, no acute distress, well developed and well groomed Nutritional Appearance: average body habitus and well nourished Orientation: alert, awake and oriented x3 [facility] Head: normal to inspection, normocephalic and atraumatic Ears: hearing grossly normal bilaterally and external ears normal General nose exam: external nose normal Face and sinus: normal facial exam and sinuses nontender Mouth: oral mucosae normal, lip normal, tongue normal and moist mucous membranes Teeth and gingiva: dentition normal Eyes General: appearance normal, both eyes and all related structures Conjunctivae: conjunctivae normal Sclera: sclerae normal Pupils: PERRL Neck Neck: normal visual inspection and full ROM Chest Chest: normal inspection of the chest Resp Effort & Inspection: normal respiratory effort, able to speak in complete sentences, no cough, no nasal flaring, not tachypneic and no use of accessory muscles Auscultation: clear to auscultation bilaterally, no rales, no rhonchi and no wheezes Cardio Jugular venous pressure: no JVD Rate: regular rate Rhythm: regular rhythm GI Inspection: normal to inspection, no edema, non-distended and obesity Palpation: soft, no masses, nontender and No ascites Auscultation: normal bowel sounds Other: Patient denies any abdominal pain at the time of exam. There is no hernias. Postsurgical changes noted. When I asked patient where he has pain he said it is epigastric substernal region Skin General skin exam: no rashes or lesions noted Trauma: no lacerations or abrasions Neuro General: patient alert, patient oriented x3, oriented, gait normal, moves all extremities, no focal motor deficits and CN's II-XI intact bilaterally Cognition: normal cognition Speech: speech normal Gait: normal gait Motor: muscle tone normal throughout Extrem General: normal to inspection, full ROM and no clubbing, cyanosis or edema Psych Appearance: grossly normal and well kempt Mental Status: mental status grossly normal Speech and Movement: speech and movement normal Affect: normal affect Results Last Vital Signs Temp 37.1 C 07/03/20 19:23 Pulse 86 07/03/20 19:23 Resp 18 07/03/20 19:23 BP 126/86 07/03/20 19:23 Pulse Ox 97 07/03/20 19:23 Labs Result diagrams: 07/05/20 06:18 07/05/20 06:18 Labs: Laboratory Results - last 24 hr 07/03/20 07/03/20 07/03/20 05:51 05:51 05:51 WBC 4.57 RBC 3.78 L Hgb 11.8 L Hct 34.8 L MCV 92.1 MCH 31.2 MCHC 33.9 RDW 12.7 Plt Count 116 L MPV 10.1 Immature Gran % 0.2 Neutrophils % 72.3 Lymphocytes % 15.3 Monocytes % 9.6 Eosinophils % 2.4 Basophils % 0.2 Nucleated RBC % 0 Absolute Neutrophils 3.30 Absolute Lymphocytes 0.70 L Absolute Monocytes 0.44 Absolute Eosinophils 0.11 Absolute Basophils 0.01 VBG Lactate Sodium 136 Potassium 4.0 D Chloride 103 Carbon Dioxide 23.5 Anion Gap 9.5 BUN 15 D Creatinine 1.20 Estimated GFR/1.73 m2 >= 60.00 Glucose 229 H Hemoglobin A1c 8.2 H Calcium 8.9 Magnesium 1.6 L Total Bilirubin 5.7 H Conjugated Bilirubin 5.19 H GGT AST 144 H ALT 243 H Alkaline Phosphatase 83 Creatine Kinase 133 C-Reactive Protein 13.93 H Total Protein 6.4 Albumin 3.1 L Triglycerides Total Cholesterol LDL Cholesterol, Calc HDL Cholesterol 07/03/20 07/03/20 05:51 08:18 WBC RBC Hgb Hct MCV MCH MCHC RDW Plt Count MPV Immature Gran % Neutrophils % Lymphocytes % Monocytes % Eosinophils % Basophils % Nucleated RBC % Absolute Neutrophils Absolute Lymphocytes Absolute Monocytes Absolute Eosinophils Absolute Basophils VBG Lactate 0.9 Sodium Potassium Chloride Carbon Dioxide Anion Gap BUN Creatinine Estimated GFR/1.73 m2 Glucose Hemoglobin A1c Calcium Magnesium Total Bilirubin Conjugated Bilirubin GGT 521 H AST ALT Alkaline Phosphatase Creatine Kinase C-Reactive Protein Total Protein Albumin Triglycerides 188 H Total Cholesterol 141 LDL Cholesterol, Calc 89 HDL Cholesterol 15 L
[2020-07-04] VITALS (9 sets, daily range): BP systolic 109–170; BP diastolic 69–98; PULSE 64–86; RESP 16–19; TEMP 36.1–36.7; O2SAT 95–100
[2020-07-04] MEDS: PIPERACILLIN/TAZO 3.375 GM in Normal Saline 50 ML IVPB ×4 (02:16→19:56)
[2020-07-04] MEDS: Lactated Ringers 1,000 ML 100 ML IV (04:02)
[2020-07-04 06:36] LABS: Abs Immature Grans 0.01 10^3/uL (0.0-0.06); Absolute Basophil Count 0.01 10^3/uL (0.0-0.2); Absolute Eosinophil Count 0.12 10^3/uL (0.0-0.7); Absolute Lymphocyte Count 0.77 10^3/uL (1.2-3.4); Absolute Monocyte Count 0.27 10^3/uL (0.1-0.8); Absolute Neutrophil Count 1.96 10^3/uL (1.2-6.7); Basophils % 0.3; Eosinophils % 3.8; HCT 34.9 % (40.0-50.0); HGB 11.7 g/dL (13.5-17.5); Immature Grans % 0.3; Lymphocytes % 24.5; MCH 30.9 pg (27.0-33.0); MCHC 33.5 % (32.0-36.0); MCV 92.1 fL (80-95); MPV 10.3 fL (8.0-11.0); Monocytes % 8.6; Neutrophils % 62.5; Nucleated RBC 0 %; Platelet Count 129 10^3/uL (130-400); RBC 3.79 10^6/uL (4.36-5.78); RDW 12.3 % (11.8-14.1); RDW-SD 41.2 fL; WBC 3.14 10^3/uL (4.4-10.8)
[2020-07-04 06:59] LABS: ALT 188 U/L (16-63); AST 77 U/L (15-37); Albumin 3.1 g/dL (3.4-5.0); Alkaline Phosphatase 97 U/L (46-116); Anion Gap 8.1 mmol/L (3-11); BUN 10 mg/dL (7-18); C-Reactive Protein 9.31 mg/dL (0.0-0.3); CO2 24.9 mmol/L (21.0-32.0); CREATININE 1.29 mg/dL (0.70-1.30); Calcium 9.1 mg/dL (8.5-10.1); Chloride 104 mmol/L (98-107); Creatine Kinase 71 U/L (39-308); Estimated GFR 56.25 (mL/min/1.73m2); Glucose 233 mg/dL (74-106); Magnesium 1.6 mg/dL (1.8-2.4); Potassium 4.3 mmol/L (3.5-5.1); Sodium 137 mmol/L (136-145); Total Protein 6.7 g/dL (6.4-8.2)
[2020-07-04 07:38] LABS: Ferritin 301 ng/mL (26-388); Folate 18.9 ng/mL (8.6-20.0); Vitamin B12 454 pg/mL (193-986)
[2020-07-04 07:39] LABS: Iron 59 ug/dL (65-175); Total Iron Binding Capacity 230 ug/dL (250-450); Transferrin Sat 26 % (20-55)
[2020-07-04] MEDS: Pantoprazole 40 MG VIAL IVP ×2 (07:42→19:51)
[2020-07-04] MEDS: Normal Saline Flush 10 ML SYR IVP ×2 (07:43→19:51)
[2020-07-04] MEDS: Insulin Aspart 300 UNITS/3 ML PEN SC ×4 (07:47→21:13)
--- NOTE | 2020-07-04 09:13 | PDOC.CMPRO ---
- If Service Date Differs Date of service: 07/04/20 Time of Service: 09:13 Care Management Progress Note S/O: Yung was sitting up in bed when CM met with him. He had just returned from having an EGD and was told he had a small stricture at the gastro-esophageal junction which was dilated. Of greater concern, according to the providers, is his liver. His LFTs have been significantly elevated and Yung asked CM if he was going to from this. Dr. Fam entered the room at that point in the conversation and answered all of Yung's questions. He was told that if he stopped drinking alcohol, his prognosis will be much improved. Dr. Fam explained that Yung would need follow up with a liver specialist at [facility] [place]. Yung is scheduled to have an MRCP on Monday. Yung remains afebrile, his CRP is declining and his LFTs are also coming down. He feels better he stated and looks forward to going home.If he is able to tolerate an advancement in his diet, he may be discharged tomorrow and have the procedure as an outpatient. CM updated Laurence, Yung's , at his request. A: Yung is a 64 year old man admitted on 07/02/20 with chest pain. P:Yung will be discharged home with no additional service when he is medically ready. Yung is scheduled for an MRCP Monday but if he can tolerate an advancement in diet, he may discharge tomorrow and have the procedure as an outpatient. His spouse will transport him home at time of discharge. CM will continue to support Yung and his family and assess for discharge planning needs.
--- NOTE | 2020-07-04 10:20 | STOM_PTH ---
PATIENT: Yung Betancur LOC: [place] Gonzalez#:[id number] AGE/SX: 64/M ROOM: RE07/03/[address]: Puneet Grajeda : 1955 BED: A DIS: 07/06/2020 SPEC #: [id number] RECD: 07/06/20 12:33 STATUS: ROBER REQ #: [id number] JI: 07/04/20 10:[address]: Puneet Grajeda DEPT: Surgical Specimen RECD BY: Mary Hall ENTERED: 07/06/20 12:35 SP TYPE: STOMACH OTHR DR: Yung Horn Laura M Tissues: 1 - BIOPSY BOWEL 2 - STOMACH BIOPSY 3 - ESOPHAGUS BIOPSY 4 - ESOPHAGUS BIOPSY Procedures: GROSS AND MICRO LEVEL 4 Comments: [id number]
--- NOTE | 2020-07-04 11:08 | ENDO_ITS ---
Date of service: 07/04/20 Time of Service: 11:08 Endoscopy Report DATE OF PROCEDURE: 07/04/20 PRE-OP DIAGNOSIS: dysphGIA POST-OP DIAGNOSIS: other (very small hiatal hernia/espohagitis/minimal stricturing of gastric-jejunal anastomosisi ) PROCEDURE: egd w/ bx. dilation of gastro-jejunal anastomosis SURGEON: Krystin Coe ANESTHESIA: GETA ESTIMATED BLOOD LOSS: 1 PATHOLOGY: other COMPLICATIONS: None DISPOSITION: floor PROCEDURE DESCRIPTION: Mr. Skinner is here today for ADD. He has been having problems with difficulty swallowing and pain after eating. He is here today for an EGD. Informed consent is obtained explaining the and benefits of the procedure including but not limited to: Bleeding, infection, aspiration, perforation requiring surgery. Patient is brought to the endoscopy suite. Anesthesia is administered per the department of anesthesia with constant monitoring of all vital signs. Timeout is performed. Once sedation is insured the previously lubricated Olympus scope was inserted in the oropharynx and passed down into the esophagus. Esophagus upper esophagus was normal. There are no esophageal varices diverticula or stricture. There is a minute hiatal hernia in that the GE junction no longer makes a tight seal and the opening slt refrigerator will occasionally be patulous. The Z-line is irregular and shows some chronic changes that may be associated with Ramirez's. He has Micropouch appears normal. The gastrojejunal junction there is may be some slt narrowing, but the scope passed through. Jejunal limb appears pink and healthy. Biopsies taken of the area anastomosis on the jejunal side. Of the micro pouch. Of the GE junction. Of the distal esophagus. All specimens are retrieved and no significant bleeding is noted. We did dilate the gastrojejunal anastomosis up t o 12 mm balloon. There is no bleeding noted after this. The scope was then removed. Patient tolerated the procedure well and returned to Med-Surg unit.
[2020-07-04] MEDS: MAGNESIUM SULFATE 2 GM/50 ML BAG IVPB (11:46)
[2020-07-04] MEDS: Venlafaxine 150 MG CAPCR PO (11:47)
[2020-07-04] MEDS: Venlafaxine 37.5 MG CAPCR 75 MG PO (11:47)
[2020-07-04] MEDS: Cholecalciferol (Vitamin D3) 1,000 UNIT TAB 2000 UNITS PO (11:47)
[2020-07-04] MEDS: Gabapentin 800 MG TAB PO ×3 (11:48→19:51)
[2020-07-04] MEDS: Multivitamin TAB 1 TAB PO (11:48)
[2020-07-04] MEDS: Thiamine 100 MG TAB PO (11:48)
[2020-07-04] MEDS: Folic Acid 1 MG TAB PO (11:53)
--- NOTE | 2020-07-04 13:09 | W.PM.PROGNOT ---
Date of Service Date of service: 07/04/20 Time of Service: 13:09 Assessment and Plan Assessment and plan (1) Atypical chest pain: Status: Acute Assessment and plan: Patient is telemetry is demonstrated sinus rhythm with no pauses and no heart block. I think his syncope was probably vasovagal secondary to his dysphagia. He ruled out for acute coronary syndrome by negative troponins. He has had previous cardiac catheterization about 3 years ago that showed nonobstructive coronary artery disease. Present time I am going to discontinue telemetry. Continue treatment of his hiatal hernia and esophagitis with a PPI. He is currently on Protonix 40 mg IV every 12 hours. I think if he is tolerating a diet we can switch that over to oral Protonix. If he needs further therapy then I would add Carafate to his regimen. I guess chest pain was either due to his GERD or due to his gastrojejunal anastomotic stenosis. (2) Syncope: Status: Acute Assessment and plan: No syncope since admission. 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 Patient never actually had left-sided weakness but complained of numbness and tingling in his left arm and left leg. I think this is secondary to his cervical spinal stenosis at C6-C7. He has multilevel degenerative disc changes. (4) Fever: Status: Acute Assessment and plan: COVID-19 was ruled out. Hepatitis studies are pending at this time for viral hepatitis. Patient has biliary sludge and stones but no evidence for acute cholecystitis. MRCP has been ordered by Dr. Coe but will not be done till Monday. I think if he is tolerating and advancement of his diet tomorrow and he is afebrile and his blood cultures are no growth he could potentially be discharged home tomorrow. MRCP then could be obtained as an outpatient. Dr. Coe is indicated that she has no intention of performing a cholecystectomy on this gentleman and then if he needs such surgery and will have to be done at a tertiary care center. She recommends a see a label maker for liver biopsy. Patient seems to have responded to Zosyn and given his elevated procalcitonin and CRP which are declining I suspect that it was a bacterial cause for his fever probably due to his biliary tract. (5) Dysphagia: Status: Chronic Assessment and plan: Status post EGD with evidence of hiatal hernia and GERD as well as stenosis of his gastrojejunal anastamosis. (6) Abdominal pain: Status: Acute Assessment and plan: No further abdominal pain. Liver transaminases and bilirubin are declining as is his CRP. Continue Zosyn pending the results of his blood cultures. Patient begun on a clear liquid diet. We will see how he responds but if he is tolerating his diet we will try to advance his tomorrow afternoon and discharge him either tomorrow evening or Monday morning. (7) Non-insulin dependent type 2 diabetes mellitus: Status: Acute Assessment and plan: Hold oral medications. Continue basal bolus insulin (8) Transaminitis: Status: Acute Assessment and plan: Doubt that this is tickborne hepatitis. This may be secondary to biliary disease from gallbladder sludge and/or stones in the setting of some chronic fatty liver changes from either alcohol or HERR from his obesity and diabetes mellitus. Hepatitis panel is pending at this time but his transaminases would not be declining this quickly if he had an infectious hepatitis. (9) DVT prophylaxis: Status: Acute Assessment and plan: Not a candidate for enoxaparin due to his liver disease. I will put him on SCDs and LUIS jones (10) Discharge planning issues: Status: Acute Assessment and plan: Full code Subjective Subjective Interval history since last seen: Overall the patient feels markedly better. He has had no further chest pain and no dyspnea and no abdominal pain. He has been afebrile for 24 hours now. Blood cultures from July 02, 2020 showed no growth x2 sets. Repeat cultures from July 03, 2020 are pending at this time. Inflammatory markers are declining as is his transaminases and his bilirubin. He never had a leukocytosis since admission. White cell count today is 3140. CRP is down to 9.3 from a high of 13.9. Total bilirubin is down to 3.0 and direct bilirubin is down to 2.4 with an AST of 77 and alkaline phosphatase of 97 and an ALT of 188. Patient remains on Zosyn which was started empirically for presumptive biliary tract infection. He had an elevated procalcitonin of 7 which has not been repeated yet. CT of the chest abdomen pelvis was performed on admission and showed no pulmonary infiltrates and no pleural effusions. The abdominal portion shows severe fatty infiltration with no hepatic mass. Gallbladder biliary tract showed layering of stones versus sludge with no biliary dilatation. Pancreas was atrophic with no abnormal calcifications or inflammatory process. Kidneys and spleen and aorta were normal. At the area of the gastric bypass suture material seen at the stomach and appeared to be intact and nondistended but there was some mild nonspecific small bowel distention distal to this. Today the patient underwent EGD by Dr. Coe. Patient was found to have a very small hiatal hernia with esophagitis and minimal stricturing of the gastro-jejunal anastamosis. Dr. Coe performed a biopsy and dilatation of the gastrojejunal anastamosis. Patient's been started on a clear liquid diet for the next 24 hours. I told the patient if he is tolerating his diet we would advance this tomorrow and if he is tolerating solids he could go home late tomorrow. Exam Narrative Exam Narrative: Obese male who appears to be slightly jaundiced. He is in no acute distress he is alert and oriented person place time circumstance. He was talking to the case resolution specialist when I walked into the room. Lungs are clear to auscultation Heart regular rate and rhythm Abdomen is obese soft nontender with no fluid wave. I did not detect any palpable masses and no bruits. Objective Last Vital Signs Temp 36.5 C 07/04/20 11:30 Pulse 72 07/04/20 11:30 Resp 16 07/04/20 11:30 BP 137/81 07/04/20 11:30 Pulse Ox 95 07/04/20 11:30 Laboratory Results - last 24 hr 07/04/20 07/04/20 07/04/20 06:10 06:10 06:10 WBC 3.14 L D RBC 3.79 L Hgb 11.7 L Hct 34.9 L MCV 92.1 MCH 30.9 MCHC 33.5 RDW 12.3 Plt Count 129 L MPV 10.3 Immature Gran % 0.3 Neutrophils % 62.5 Lymphocytes % 24.5 Monocytes % 8.6 Eosinophils % 3.8 Basophils % 0.3 Nucleated RBC % 0 Absolute Neutrophils 1.96 Absolute Lymphocytes 0.77 L Absolute Monocytes 0.27 Absolute Eosinophils 0.12 Absolute Basophils 0.01 Sodium 137 Potassium 4.3 Chloride 104 Carbon Dioxide 24.9 Anion Gap 8.1 BUN 10 Creatinine 1.29 Estimated GFR/1.73 m2 56.25 Glucose 233 H Calcium 9.1 Magnesium 1.6 L Iron 59 L TIBC 230 L Transferrin % Sat 26 Ferritin 301 Total Bilirubin 3.0 H Conjugated Bilirubin 2.40 H AST 77 H ALT 188 H Alkaline Phosphatase 97 Creatine Kinase 71 C-Reactive Protein 9.31 H Total Protein 6.7 Albumin 3.1 L Vitamin B12 454 Folate 18.9
[2020-07-04] MEDS: Magnesium Oxide 400 MG TAB 800 MG PO (19:50)
[2020-07-04] MEDS: Normal Saline 500 ML IV (19:56)
--- NOTE | 2020-07-04 20:51 | NUR.NOTE ---
Nursing Note: PT got his 2 rings and gold chain back at 850pm from the safe and signed the back of envelope along with my name.
[2020-07-04] MEDS: Insulin Glargine 300 UNITS/3 ML PEN 8 UNITS SC (21:13)
[2020-07-04] MEDS: Tamsulosin 0.4 MG CAPCR PO (21:13)
[2020-07-04] MEDS: Magic Mouthwash 119 ML BTL PO (23:05)
[2020-07-05] MEDS: PIPERACILLIN/TAZO 3.375 GM in Normal Saline 50 ML IVPB ×4 (02:35→20:02)
[2020-07-05] MEDS: Normal Saline Flush 10 ML SYR IVP ×4 (02:38→20:00)
[2020-07-05 03:10] VITALS: BP 145/79; PULSE 74; RESP 16; TEMP 36.4; O2SAT 100
[2020-07-05 06:38] LABS: Abs Immature Grans 0.01 10^3/uL (0.0-0.06); Absolute Basophil Count 0.01 10^3/uL (0.0-0.2); Absolute Eosinophil Count 0.13 10^3/uL (0.0-0.7); Absolute Monocyte Count 0.23 10^3/uL (0.1-0.8); Absolute Neutrophil Count 1.97 10^3/uL (1.2-6.7); Basophils % 0.3; HCT 36.5 % (40.0-50.0); HGB 12.4 g/dL (13.5-17.5); Immature Grans % 0.3; Lymphocytes % 27.7; MCH 31.1 pg (27.0-33.0); MCV 91.5 fL (80-95); MPV 10.4 fL (8.0-11.0); Monocytes % 7.1; Neutrophils % 60.6; Nucleated RBC 0 %; Platelet Count 145 10^3/uL (130-400); RBC 3.99 10^6/uL (4.36-5.78); RDW 12.1 % (11.8-14.1); WBC 3.25 10^3/uL (4.4-10.8)
[2020-07-05 06:54] LABS: ALT 151 U/L (16-63); AST 41 U/L (15-37); Albumin 3.1 g/dL (3.4-5.0); Alkaline Phosphatase 100 U/L (46-116); Anion Gap 8.8 mmol/L (3-11); BUN 7 mg/dL (7-18); Bilirubin, Direct 1.43 mg/dL (0.00-0.20); C-Reactive Protein 5.18 mg/dL (0.0-0.3); CO2 25.2 mmol/L (21.0-32.0); CREATININE 1.25 mg/dL (0.70-1.30); Calcium 9.3 mg/dL (8.5-10.1); Chloride 103 mmol/L (98-107); Estimated GFR 58.34 (mL/min/1.73m2); Glucose 245 mg/dL (74-106); Magnesium 1.8 mg/dL (1.8-2.4); Potassium 4.2 mmol/L (3.5-5.1); Sodium 137 mmol/L (136-145)
[2020-07-05 07:21] VITALS: BP 150/85; PULSE 62; RESP 17; TEMP 36.5; O2SAT 98
[2020-07-05 07:31] LABS: Procalcitonin 0.7 ng/mL
[2020-07-05] MEDS: Cholecalciferol (Vitamin D3) 1,000 UNIT TAB 2000 UNITS PO (08:06)
[2020-07-05] MEDS: Gabapentin 800 MG TAB PO ×3 (08:06→20:02)
[2020-07-05] MEDS: Pantoprazole 40 MG VIAL IVP ×2 (08:07→20:01)
[2020-07-05] MEDS: Venlafaxine 150 MG CAPCR PO (08:07)
[2020-07-05] MEDS: Folic Acid 1 MG TAB PO (08:07)
[2020-07-05] MEDS: Thiamine 100 MG TAB PO (08:07)
[2020-07-05] MEDS: Venlafaxine 37.5 MG CAPCR 75 MG PO (08:07)
[2020-07-05] MEDS: Multivitamin TAB 1 TAB PO (08:07)
[2020-07-05] MEDS: Insulin Aspart 300 UNITS/3 ML PEN SC ×3 (08:08→21:33)
--- NOTE | 2020-07-05 09:27 | W.PM.PROGNOT ---
Date of Service Date of service: 07/05/20 Time of Service: : Assessment and Plan Assessment and plan (1) Atypical chest pain: Status: Acute (2) Syncope: Status: Acute Assessment and plan: No syncope since admission. 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 Patient never actually had left-sided weakness but complained of numbness and tingling in his left arm and left leg. I think this is secondary to his cervical spinal stenosis at C6-C7. He has multilevel degenerative disc changes. (4) Fever: Status: Acute Assessment and plan: COVID-19 was ruled out. Hepatitis studies are pending at this time for viral hepatitis. Patient has biliary sludge and stones but no evidence for acute cholecystitis. MRCP has been ordered by Dr. Coe but will not be done till Monday. Patient's diet of clear liquids has been tolerated well and therefore I have advanced his diet to solid foods beginning at lunch. If he tolerates this today, then I will discharge home in the a.m. 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 Liver transaminases and bilirubin are declining as is his CRP. Continue Zosyn pending the results of his blood cultures. Patient tolerating clears well, will advance to solids today. Repeat labs in the a.m. but expect discharge in the a.m. if tolerating his diet and no further fevers or abdominal pains (7) Non-insulin dependent type 2 diabetes mellitus: Status: Acute Assessment and plan: Hold oral medications. Continue basal bolus insulin (8) Transaminitis: Status: Acute Assessment and plan: Doubt that this is tickborne hepatitis. This may be secondary to biliary disease from gallbladder sludge and/or stones in the setting of some chronic fatty liver changes from either alcohol or HERR from his obesity and diabetes mellitus. Hepatitis panel is pending at this time but his transaminases would not be declining this quickly if he had an infectious hepatitis. Needs referral to precision instrument maker upon discharge (9) DVT prophylaxis: Status: Acute Assessment and plan: Not a candidate for enoxaparin due to his liver disease. I will put him on SCDs and LUIS richarde (10) Discharge planning issues: Status: Acute Assessment and plan: Full code Subjective Subjective Interval history since last seen: Patient has no complaints. He denies any abdominal pain nausea or vomiting. Last night he had a little bit of dyspepsia that was relieved with antiacids. He remains afebrile. Inflammatory markers and transaminases and bilirubin levels are improving. I told Yung to like to keep them today for 1 more day of antibiotics and also so we can monitor him while we advance his diet to a regular diet this afternoon to ensure that is not having any dysphagia. I spoke with his Tahmina and updated her on his condition and our recommendations that he see a precision instrument maker upon discharge from [facility]. I also indicated to that he probably has some chronic gallbladder issues with cholelithiasis and this may have been the source of his fever and elevated bilirubin and transaminase levels. I also indicated to her that Dr. Coe does not feel comfortable doing cholecystectomy on him here at [facility] and nevertheless the patient does not require an acute cholecystectomy as there is no evidence for biliary ductal obstruction or gallbladder wall thickening. Patient will have an MRCP tomorrow to follow-up on his biliary tract. As long as he remains afebrile and is tolerating his diet he will be discharged home tomorrow morning with follow-up with Dr. Yung Horn his primary care provider along with a referral to a precision instrument maker. Exam Narrative Exam Narrative: Obese male whose jaundice appears to be clearing. He is in no acute distress he is alert and oriented person place time circumstance. He was talking to the case resolution specialist when I walked into the room. Lungs are clear to auscultation Heart regular rate and rhythm Abdomen is obese soft nontender with no fluid wave. I did not detect any palpable masses and no bruits. Objective Last Vital Signs Temp 36.5 C 07/05/20 07:21 Pulse 62 07/05/20 07:21 Resp 17 07/05/20 07:21 BP 150/85 H 07/05/20 07:21 Pulse Ox 98 07/05/20 07:21 Laboratory Results - last 24 hr 1207/05/20 07/05/20 06:18 06:18 06:18 WBC 3.25 L RBC 3.99 L Hgb 12.4 L Hct 36.5 L MCV 91.5 MCH 31.1 MCHC 34.0 RDW 12.1 Plt Count 145 MPV 10.4 Immature Gran % 0.3 Neutrophils % 60.6 Lymphocytes % 27.7 Monocytes % 7.1 Eosinophils % 4.0 Basophils % 0.3 Nucleated RBC % 0 Absolute Neutrophils 1.97 Absolute Lymphocytes 0.90 L Absolute Monocytes 0.23 Absolute Eosinophils 0.13 Absolute Basophils 0.01 Sodium 137 Potassium 4.2 Chloride 103 Carbon Dioxide 25.2 Anion Gap 8.8 BUN 7 Creatinine 1.25 Estimated GFR/1.73 m2 58.34 Glucose 245 H Calcium 9.3 Magnesium 1.8 Total Bilirubin 2.0 H Conjugated Bilirubin 1.43 H AST 41 H ALT 151 H Alkaline Phosphatase 100 C-Reactive Protein 5.18 H Total Protein 7.0 Albumin 3.1 L Procalcitonin 0.7
[2020-07-05] MEDS: Magnesium Oxide 400 MG TAB 800 MG PO ×2 (09:48→20:02)
[2020-07-05 11:55] VITALS: BP 135/86; PULSE 71; RESP 17; TEMP 36.5; O2SAT 97
--- NOTE | 2020-07-05 12:53 | W.PM.PROGNOT ---
Date of Service Date of service: 07/05/20 Time of Service: 12:53 Assessment and Plan Assessment and plan (1) Elevated bilirubin: Status: Acute Assessment and plan: His labs continue to return to baseline. He is feeling much better and was able to eat today. He does not know if he has a follow-up appointment with GI at [facility]. At this point I am still not convinced that this is his gallbladder. I think we should continue with medical management he definitely needs to stop using any alcohol He needs to get his diabetes under better control and monitor his cholesterol carefully. He has been having the same type of symptoms off and on for the past 3 years. GI at [facility] thought it was reflux and was concerned that he may need to have his micropouch redone and possibly a some other type of procedure to decrease his reflux He should continue to stay on a PPI. I will see him back in 2 weeks and see how he is feeling. His symptoms are very atypical for gallbladder he only has sludge and stones and currently his liver is still inflamed that it is not safe to do gallbladder surgery as there would be excessive bleeding. I will have him follow-up with myself upon discharge in 2 weeks If it is stricturing from the anastomosis he will require repeat dilations. With a 16 -17-18 F balloon. (2) Diabetes mellitus type II, uncontrolled: Status: Acute (3) Gallbladder sludge: Status: Acute (4) S/P gastric bypass: Status: Acute (5) Alcoholic cirrhosis of liver without ascites: Status: Acute (6) Liver cirrhosis secondary to nonalcoholic steatohepatitis (HERR): Status: Acute (7) Degenerative cervical spinal stenosis: Status: Acute (8) Left-sided weakness: Status: Acute (9) Transaminitis: Status: Acute (10) Fever: Status: Acute Subjective Subjective Interval history since last seen: Patient feeling better today. He ate a full turkey dinner for lunch and had no pain or bloating. He had a bowel movement today which was loose but no blood. no headaches. No CP or SOB. no productive cough. no dysuria. no leg pain or swelling. Exam GI Other: His abdomen is obese, soft, nontender. Good sounds. No hernias. Objective Last Vital Signs Temp 36.5 C 07/05/20 07:21 Pulse 62 07/05/20 07:21 Resp 17 07/05/20 07:21 BP 150/85 H 07/05/20 07:21 Pulse Ox 98 07/05/20 07:21 Laboratory Results - last 24 hr 07/05/20 07/05/20 07/05/20 06:18 06:18 06:18 WBC 3.25 L RBC 3.99 L Hgb 12.4 L Hct 36.5 L MCV 91.5 MCH 31.1 MCHC 34.0 RDW 12.1 Plt Count 145 MPV 10.4 Immature Gran % 0.3 Neutrophils % 60.6 Lymphocytes % 27.7 Monocytes % 7.1 Eosinophils % 4.0 Basophils % 0.3 Nucleated RBC % 0 Absolute Neutrophils 1.97 Absolute Lymphocytes 0.90 L Absolute Monocytes 0.23 Absolute Eosinophils 0.13 Absolute Basophils 0.01 Sodium 137 Potassium 4.2 Chloride 103 Carbon Dioxide 25.2 Anion Gap 8.8 BUN 7 Creatinine 1.25 Estimated GFR/1.73 m2 58.34 Glucose 245 H Calcium 9.3 Magnesium 1.8 Total Bilirubin 2.0 H Conjugated Bilirubin 1.43 H AST 41 H ALT 151 H Alkaline Phosphatase 100 C-Reactive Protein 5.18 H Total Protein 7.0 Albumin 3.1 L Procalcitonin 0.7
[2020-07-05 14:56] VITALS: BP 146/52; PULSE 67; RESP 18; TEMP 36.3; O2SAT 95
--- NOTE | 2020-07-05 15:42 | PDOC.CMPRO ---
- If Service Date Differs Date of service: 07/05/20 Time of Service: 15:42 Care Management Progress Note S/O: Yung was sitting up in bed when CM met with him. He shared that Dr. Coe informed him that the MRCP scheduled for tomorrow would not be necessary and that he would be free to go home when medically cleared. Yung will complete his course of IV antibiotics today and continue with his increased diet. He will likely go home tomorrow with follow up with a coyote hunter at [facility]. Yung informed CM that he was very impressed with the medical and nursing care he received at [facility]. He stated that he would rather receive all of his care here rather than go to [facility]. CM acknowledged his feelings but reinforced that there are some specialists that can only be found at a tertiary care center and that a liver specialist is one of them. He understood and verbalized that he will be pleased when he has more information about his liver disease. A: Yung is a 64 year old man admitted on 07/02/20 with chest pain. P:Yung will be discharged home with no additional service when he is medically ready. He will be referred to hepatology at [facility] and follow up with his PCP locally. His spouse will transport him home at time of discharge. CM will continue to support Yung and his family and assess for discharge planning needs.
[2020-07-05 19:25] VITALS: BP 139/89; PULSE 85; RESP 18; TEMP 36; O2SAT 96
[2020-07-05] MEDS: Tamsulosin 0.4 MG CAPCR PO (21:32)
[2020-07-05] MEDS: Insulin Glargine 300 UNITS/3 ML PEN 12 UNITS SC (21:33)
[2020-07-05 23:40] VITALS: BP 131/78; PULSE 74; RESP 18; TEMP 35.6; O2SAT 94
[2020-07-06] MEDS: Normal Saline 500 ML IV (02:18)
[2020-07-06] MEDS: Normal Saline Flush 10 ML SYR IVP ×2 (02:18→08:13)
[2020-07-06] MEDS: PIPERACILLIN/TAZO 3.375 GM in Normal Saline 50 ML IVPB ×2 (02:19→08:13)
[2020-07-06 06:18] LABS: Vitamin D 25 Total 30.6 ng/ml (30-100)
[2020-07-06 07:40] VITALS: BP 129/88; PULSE 73; RESP 16; TEMP 35.8; O2SAT 96
[2020-07-06] MEDS: Cholecalciferol (Vitamin D3) 1,000 UNIT TAB 2000 UNITS PO (08:14)
[2020-07-06] MEDS: Insulin Aspart 300 UNITS/3 ML PEN SC (08:14)
[2020-07-06] MEDS: Multivitamin TAB 1 TAB PO (08:14)
[2020-07-06] MEDS: Folic Acid 1 MG TAB PO (08:14)
[2020-07-06] MEDS: Thiamine 100 MG TAB PO (08:14)
[2020-07-06] MEDS: Pantoprazole 40 MG VIAL IVP (08:14)
[2020-07-06] MEDS: Venlafaxine 37.5 MG CAPCR 75 MG PO (08:15)
[2020-07-06] MEDS: Venlafaxine 150 MG CAPCR PO (08:15)
[2020-07-06] MEDS: Gabapentin 800 MG TAB PO (08:15)
[2020-07-06] MEDS: Magnesium Oxide 400 MG TAB 800 MG PO (09:32)
[2020-07-06 09:58] LABS: Lyme Ab w Rflx to Lyme Confirm Negative (Negative)
[2020-07-06 10:01] LABS: HBs Antibody, Qual Negative (See Note); HBs Antibody, Quant <3.1 mIU/mL (See Note); Hepatitis B Core Antibody Negative (Negative); Hepatitis B surface Ag Negative (Negative); Hepatitis C Ab w Rflx HCV PCR Negative (Negative)
[2020-07-06 10:03] LABS: Hepatitis A Antibody IgM Negative (Negative); Hepatitis B Core Antibody Negative (Negative); Hepatitis B surface Ag Negative (Negative); Hepatitis C Ab w Rflx HCV PCR Negative (Negative)
--- NOTE | 2020-07-06 11:06 | W.PM.DS.N ---
Date of service: 07/06/20 Time of Service: 11:07 DS: Diagnosis Discharge Diagnosis (1) Elevated bilirubin: Status: Resolved Asessment and Plan: Patient developed cholestatic picture w/ rising total and direct bilirubin along w/ transaminitis. CT imaging showed GB sludge/stones but no obstructive dilatation of his CBD and no GB wall thickening nor pericholecystic fluid. Therefore it was not felt to be acute cholecystitis. However, he developed fever for which CXR and UA were unremarkable and blood cultures showed no growth. He defervesced w/ antibiotics (Zosyn) and his transaminitis and hyperbilirubinemia resolved as did his elevated CRP and procalcitonin. His hyperbilirubinemia and transaminitis very well may have been acute alcoholic hepatitis and with cessation of alcohol over time improved. Nevertheless he was treated w/ zosyn for 4 days and will complete 3 more days of Levaquin and Metronidazole. He needs referral to hepatology at [facility] [place] of his fatty liver. (2) Diabetes mellitus type II, uncontrolled: Status: Chronic Asessment and Plan: glycohemoglobin is elevated at 8.2%. he should follow up with his PCP for further diabetic control. (3) Gallbladder sludge: Status: Acute (4) S/P gastric bypass: Status: Chronic Asessment and Plan: patient had EGD on 07/04/[address] Coe which demonstrated narrowing of his gastro-jejunal bypass anastamosis. This was dilated. He should eat small frequent meals and should follow up w/ Dr. Coe in couple weeks. It is anticipated he will need another EGD for dilatation. (5) Alcoholic cirrhosis of liver without ascites: Status: Chronic Asessment and Plan: patient has been advised to refrain from any alcohol and he was referred to an oil recovery unit operator by the child support case officer. He needs follow up w/ hepatology at [facility]. (6) Liver cirrhosis secondary to nonalcoholic steatohepatitis (HERR): Status: Acute Asessment and Plan: as above (7) Degenerative cervical spinal stenosis: Status: Chronic Asessment and Plan: patient underwent MRI of brain and MRI of c-spine as part of his workup of his complaints of left sided numbness. No acute CVA was found but he is found to have cervical spinal stenosis which probably contributed to his paresthesias of his left hand and leg. He had no demonstrable weakness on his left side (8) Left-sided weakness: Status: Ruled-out (9) Transaminitis: Status: Resolved Asessment and Plan: as above (10) Fever: Status: Resolved (11) Syncope: Status: Resolved Asessment and Plan: patient reported syncope spells at home w/ his chest pains but none were witnessed here. He had no dysrhythmias while hospitalized. It was suspected that he had been having vasovagal episodes w/ his chest pains probably from his dysphagia, however, this is only surmised but not proven. (12) Atypical chest pain: Status: Resolved Asessment and Plan: chest pains were probably elicitied by his dysphagia. However, he has known CAD that is no hemodynamically obstructive. He was ruled out for ACS w/ negative troponin and BNP. He should undergo stress MPI since his cath was 3 years ago. Discharge Plan Disposition Patient Disposition: HOME Condition: Stable Discharge Details Reason For Visit: CP Admit Date/Time: 07/03/20 08:40 Admit Provider: Puneet Grajeda Attending Provider: Puneet Grajeda Primary Care Provider: [facility] Hospital Course: 64-year-old male with past medical history of type 2 diabetes mellitus, nonobstructive coronary artery disease,, GERD, prior gastrojejunal bypass surgery for obesity, alcoholism, who presented emergency department July 01, 2020 who presented with symptoms of chest tightness and dyspnea. He has also had worsening of his GERD with symptoms of dysphagia and had been experiencing syncopal spells at home after eating and experiencing pain. In the ER he was evaluated with serial troponin levels and EKG that showed no acute ischemic event and he had normal troponin levels and normal proBNP. His chest pain was relieved with sublingual nitroglycerin but then returned at which point he was admitted to hospital for further troponin levels as well as an IV nitroglycerin drip. Chest pain resolved overnight his troponin I levels remain normal. Insulin drip was discontinued. He had no further episodes of chest pain but had some complaints of abdominal pain. His initial work-up which included a CMP demonstrated a mildly elevated bilirubin of 1.1 with elevated transaminases with an AST of 166 and an ALT of 106 with a normal alkaline phosphatase of 71. However the next day his AST rey to 374 and his ALT rey to 266 and his CRP was elevated at 3.0. Upon admission he was found to have an elevated BUN of 21 and a creatinine 1.49 which quickly declined with IV fluid hydration to a BUN of 15 and creatinine 1.20. Because of the abdominal pain he was made n.p.o. and CT scan with oral contrast was obtained of his chest abdomen and pelvis. This was also obtained because he was running fevers up to 38.8 on July 02, 2020. These fevers persisted through July 03, 2020. His initial chest x-ray on admission showed no acute pulmonary findings and his CT scan of his chest abdomen pelvis from July 02, 2020 again showed no parenchymal pulmonary abnormalities but the CT of the abdomen pelvis showed biliary sludge versus layering of stones in his gallbladder with no evidence for biliary ductal dilatation. He was found to have severe fatty infiltration of his liver. Pancreas spleen and kidneys were essentially normal with the exception of a small right renal cyst. Bowel showed evidence of previous gastric bypass which was intact and nondistended. He had some mild nonspecific small bowel distention without obstruction and no evidence of bowel wall thickening. He had no evidence for ascites. Because of the persistent fever blood cultures were obtained on July 02 and again on July 03, 2020 all of which have shown no growth. Serial CBC showed no leukocytosis but in fact his white cell count on admission was normal at 6000 and a decline down to 3200. With a relative lymphocytopenia of 700 lymphocytes. He was started empirically on Zosyn because of the fever and concern for acute cholecystitis or cholangitis and after initiation of Zosyn his fever defervesced. As part of his acute febrile work-up procalcitonin level was obtained and found to be elevated on July 02, 2020 at 7.5 and by July 05, 2020 his procalcitonin had declined to 0.7. Serial CMP's were monitored his transaminases improved as his fever defervesced and he was rehydrated with IV fluids. Total bilirubin peaked at 5.7 on July 03 with a conjugated bilirubin of 5.1 and by July 05, 2020 his total bilirubin is down to 2.0 and is conjugated was down to 1.4. His AST which had peaked at 374 is ALT peaked at 266 on July 02, 2020 had declined down to 41 and 151 respectively by July 05, 2020. His CRP had peaked at 13.9 and by July 05, 2020 was down to 5.1. Dr. Krystin Coe, general surgeon, was consulted regarding his symptoms of dysphagia as well as his cholelithiasis and elevated transaminases. She performed an EGD on July 04, 2020 which demonstrated stenosis of the patient's gastro jejunal anastamosis. She performed dilatation which she tolerated the procedure well. He was on clear liquids for 24 hours and tolerated his diet with no fevers or abdominal pain or nausea or vomiting. His diet was advanced to a regular diet which he tolerated quite well and he was watched overnight on a regular diet at the time of discharge she was tolerating his diet quite well. He completed 4-1/2 days worth of Zosyn. Because it was felt that he had a transient acute bacterial infection which was suspected to be of biliary source given his evidence of cholestasis and gallstones to recommend he complete 3 more days of oral antibiotics including Flagyl and Levaquin. It is recommended that the patient follow-up with a physician assistant psychiatry regarding his fatty liver. Both Dr. Heath and myself and Dr. Coe have counseled the patient on the need to quit drinking alcohol entirely. Patient understands that and he understands that if he goes back to drinking alcohol he will have further deterioration in his liver function and end up in liver failure. Case management was working on getting him a referral to a physician assistant psychiatry at [facility] at the time of this hospital discharge. Patient is to follow-up with Dr. Coe in 2 weeks regarding his recent EGD and dilatation of his gastrojejunal anastamosis. Patient will remain on a PPI as he does have evidence of GERD. Patient should have a follow-up labs next week including a CMP and he should be scheduled for an outpatient stress MPI study given his known history of nonobstructive coronary artery disease. It suspected that his chest pain was atypical and probably related to some esophageal spasm therefore responding to nitroglycerin. The exact etiology of his fever remains uncertain. Dr. Coe does not feel that the gallbladder was his primary problem since there is no evidence of common bile duct dilatation nor pericholecystic fluid no gallbladder wall thickening on his CT scan. Recommend the patient work with his primary care provider regarding his diabetic management as obesity and poorly controlled diabetes mellitus can contribute to HERR. Case management obtained a alcohol rehab [employer] football coach to help the patient have some accountability regarding his abstinence. Home Meds and New Rx's Prescriptions: New metronidazole 500 mg tablet 500 mg PO Q8H Qty: 9 RF: 0 levofloxacin 750 mg tablet 750 mg PO DAILY 3 Days Qty: 3 RF: 0 Continued metformin [Glucophage] 1,000 MG tablet 1,000 mg PO BID RF: 0 aspirin 81 MG tablet,delayed release (DR/EC) 81 mg PO DAILY RF: 0 tamsulosin 0.4 mg capsule 0.4 mg PO HS RF: 0 Trulicity 0.75 mg/0.5 mL pen injector 0.75 mg SUBCUT QWEEK RF: 0 glipizide 10 mg tablet extended release 24hr 20 mg PO DAILY RF: 0 lisinopril 20 mg tablet 20 mg PO DAILY RF: 0 gabapentin 800 mg tablet 800 mg PO TID RF: 0 pantoprazole 40 mg tablet,delayed release (DR/EC) 40 mg PO BID RF: 0 ferrous sulfate [iron] 325 mg (65 mg iron) Tablet 325 mg PO DAILY RF: 0 cholecalciferol (vitamin D3) [Vitamin D3] 50 mcg (2,000 unit) Capsule 50 mcg PO DAILY RF: 0 venlafaxine 225 mg tablet extended release 24hr 225 mg PO DAILY RF: 0 Discharge Instructions Instructions: Cirrhosis (DC), Gallstones (DC), Low Fat Diet (DC), Alcoholic Hepatitis (DC), Upper Endoscopy (DC) Additional Instructions: Eat smaller meals with softer foods and be sure to drink plenty of liquids with her meals. If you have further abdominal pain or symptoms like your food is getting stuck or unusual feelings of fullness after meals let Dr. Coe know about this. Case management at [facility] is working on getting you a referral with a liver specialist at [facility]. Follow-up with your primary care provider Dr. Yung Horn to discuss further evaluation and management of your diabetes mellitus as well as your chronic liver disease. Avoid all forms of alcohol since continued alcohol use will worsen your liver condition. Keep your follow-up with Dr. Coe regarding your recent EGD and dilatation procedure of your gastrojejunal anastamosis. Finish out 3 more days of antibiotics. You have completed 4-1/3 days of IV antibiotics for what was felt to be an acute biliary tract infection. You have evidence of gallstones but no evidence of an acute bile duct obstruction and no evidence of acute cholecystitis. Stand Alone Forms: Nursing Discharge Form Referrals: Yung Horn [Primary Care Provider] - 07/14/20 11:20 am Krystin Coe DO [OSTEOPATHIC DOCTOR] - 07/20/20 9:30 am () Activity:: Activity as Tolerated Equipment/Supplies:: No Equipment Needed Diet:: Carb Counting Discharge Orders Discharge Orders: Discharge Order (Routine); Ordered 07/06/20 Ordered By: Laron Fam Other Ambulatory Orders: Comprehensive Metabolic Panel (Routine) Timeframe: 1 Week Facility: [facility] - Location: Laboratory Outpatient Ordered By: Laron Fam NM MPI rest & stress grp (Routine) Timeframe: 1 Week Facility: [facility] - Location: DIAGNOSTIC IMAGING Ordered By: Laron Fam Discharge Data Discharge Date/Time-TO BE ENTERED AT DEPARTURE: 07/06/20 11:56 DS: Summary Status at Discharge Functional status at discharge: independent ambulation Overall status at discharge: patient is back to baseline Mental Status: mental status grossly normal Speech and Movement: speech and movement normal Mood: congruent mood Affect: normal affect Time Spent with Patient providing and/or coordinating discharge services: Less than 30 minutes Exam Narrative Exam Narrative: Obese male in no discomfort. Lungs clear, heart regular, abdomen soft and nontender Psych Mental Status: mental status grossly normal Speech and Movement: speech and movement normal Mood: congruent mood Affect: normal affect DS: Data Vitals/I&O Vitals and I&O: Vital Signs Temperature 35.8 C L 07/06/20 07:40 Temperature Source Tympanic 07/06/20 07:40 Pulse 73 07/06/20 07:40 Pulse Rhythm Regular 07/06/20 09:04 Pulse 80 07/03/20 09:52 Respiratory Rate 16 07/06/20 07:40 Respiratory Effort Non-Labored 07/06/20 09:04 Respiratory Depth Normal 07/06/20 09:04 Respiratory Pattern Normal 07/06/20 09:04 Blood Pressure 129/88 07/06/20 07:40 Blood Pressure Mean 87 07/03/20 09:52 Blood Pressure Position Supine 07/03/20 05:00 Pulse Oximetry 96 07/06/20 07:40 Oxygen Delivery Method Room Air 07/06/20 07:40 Oxygen Flow Rate 0 07/06/20 07:40 Fraction of Inspired Oxygen (FIO2) 21 07/06/20 08:20 Pain Level 0 07/05/20 23:40 Comment 07/04/20 22:47 Intake & Output 07/05/20 07/05/20 07/06/20 11:59 23:59 11:59 Intake Total 2170 / 3760 1590 / 3760 320.367 / 320.367 Balance 2170 / 3760 1590 / 3760 320.367 / 320.367 Weight 114.6 kg Intake: IV 100 / 210 110 / 210 80.367 / 80.367 Oral 2070 / 3550 1480 / 3550 240 / 240 Other: Urine Color Yellow Urine Appearance Clear Clear Comment Up to toilet. Stool Size Moderate Stool Characteristics Soft Brown Voiding Methods Toilet Toilet Toilet Data Completed and Pending Labs on day of discharge: Labs from last 24 hours 07/03/20 07/03/20 07/03/20 12:38 05:55 05:55 25-OH Vitamin D Total Lyme Disease Antibody Negative Hepatitis A IgM Ab Negative Hep Bs Antigen Negative Negative Hep Bs Antibody Negative Hep Bs Antibody, Quant <3.1 Hep B Core Total Ab Negative Negative Hepatitis C Antibody Negative Negative 07/03/20 05:51 25-OH Vitamin D Total 30.6 Lyme Disease Antibody Hepatitis A IgM Ab Hep Bs Antigen Hep Bs Antibody Hep Bs Antibody, Quant Hep B Core Total Ab Hepatitis C Antibody Preliminary micro results at discharge 07/02/20 07:10 Blood Culture - Preliminary Blood NO GROWTH 96 HOURS 07/02/20 07:02 Blood Culture - Preliminary Blood NO GROWTH 96 HOURS 07/03/20 12:54 Blood Culture - Preliminary Blood NO GROWTH 48 HOURS 07/03/20 12:38 Blood Culture - Preliminary Blood NO GROWTH 48 HOURS [facility] Medical History (Updated 07/06/20 @ 21:46 by Laron Fam) Abnormality of penis (11/18/14) Alcoholic cirrhosis of liver without ascites Anxiety (07/16/14) Benign neoplasm of colon (08/15/11) BPH (benign prostatic hyperplasia) Degenerative cervical spinal stenosis (12/23/14) Depression (07/16/14) Diabetes mellitus type II, uncontrolled Elevated bilirubin Erectile dysfunction (06/19/14) Gallbladder sludge GERD (gastroesophageal reflux disease) Hyperlipidemia (05/16/13) Hypertension Liver cirrhosis secondary to nonalcoholic steatohepatitis (HERR) Non-insulin dependent type 2 diabetes mellitus Obesity (BMI 35.0-39.9 without comorbidity) Sensorineural hearing loss, bilateral (01/06/17) Surgical History (Updated 07/06/20 @ 11:06 by Laron Fam) bunionectomy (07/18/14) Left Dr Márquez H/O gastric bypass Repair of inguinal hernia Repair, ACL Rotator Cuff Repair S/P gastric bypass Family History Mother Alzheimer disease Social History Smoking/Tobacco Use Status: Former Tobacco Use Smoking risk assessment performed?: Yes Alcohol Intake: current Alcohol Intake frequency: a few times a month Alcohol type: beer Drug use: Never Substance use type: does not use Do you feel safe at home: Yes Do you feel safe in your relationship?: Yes
[2020-07-06 11:10] VITALS: BP 120/82; PULSE 80; RESP 16; TEMP 36; O2SAT 96
--- NOTE | 2020-07-06 12:28 | W.INDIABCONS ---
Date of service: 07/06/20 Time of Service: 12:28 Diabetes Inpatient Consult DESCRIPTION/ASSESSMENT: Pt admitted with chest pain with hx of poorly controlled Dm2, alcoholic cirrohosis, s/p gastric bypass 2009 with elevated bilirubin. Met with Yung today and provided diabetic diet education. Most recent A1C: 8.2% (07/03/20), improved from 10.1% (12/17/19). Yung reports regain of upto 50 lbs since bypass 10 years ago. Yung was receptive to education and wants to better control his weight and DM. His does most of the cooking. Will call him at home after discharge and answer any questions may have. INTERVENTION: Provided education on DM including Hyper/hypoglycemia s/s with action plan for each scenario. Definition and types of CHO with examples, CHO counting, DASH diet materials, DM meal planning and label reading literature. Provided a blood sugar and food record chart and materials to reiterate CHO counting techniques. Reviewed desirable BG levels with patient with food choices and portions for optimal outcomes. Provided contact information for this RD and encouraged to call with any f/u questions r/t to DM self management. CDM from kitchen has been helping to count CHO's and achieve intake of ~65g/CHO per meal period. PLAN PLAN: will call 07/07/30 to address spouses questions re: diet per pt's request Time Spent in Nutritional Counseling and Treatment: 20 min
--- NOTE | 2020-07-06 17:05 | PDOC.CMDIS ---
- If Service Date Differs Date of service: 07/06/20 Time of Service: 17:05 LACE Index Scoring Tool - Questions: Length of Stay (in days): 3 Acuity (Admit via E.D.?): Yes Comorbidities: Diabetes w/o Complication E.D. Visits: 2 - Answers: Total Score: 9 Risk of Readmission: Low Risk Care Management Discharge Reason for Hospitalization: Chest pain rule out COVID Discharge Plan: Yung will be discharged home with no additional services. He will be referred to hepatology at [facility] and follow up with his PCP locally. His spouse will transport him home at time of discharge. Patient/Family Education Needs: Discharge plan, medications, follow up testing and appointments, limitations and Ask Me Three
[2020-07-07 19:22] LABS: Anaplasma phagocytophilum Negative (Negative); B. miyamotoi PCR Negative (Negative); Babesia divergens/MO-1 Negative (Negative); Babesia duncani Negative (Negative); Babesia microti Negative (Negative); Ehrlichia chaffeensis Negative (Negative); Ehrlichia ewingii/canis Negative (Negative); Ehrlichia muris eauclairensis Negative (Negative)
== END 2020-07-06 11:56 | disposition home or self-care (01) | DRG 312 ==
LOC: ER 07-02 00:16 → ICU 07-02 01:02 → MS 07-03 16:08
PROVIDERS: Internal Medicine; Surgery; Admitting Provider General Practice; Emergency Provider Student in an Organized Health Care Education/Training Program; PCP Family Medicine; Visit Provider General Practice
PROC: 0DJ68ZZ Inspection of Stomach, Via Natural or Artificial Opening Endoscopic (ICD-10-PCS; CPT 43235; principal; 2020-07-04 09:20)
DX: R55 Syncope and collapse (principal); K95.89 Other complications of other bariatric procedure; K91.89 Other postprocedural complications and disorders of digestive system; K70.10 Alcoholic hepatitis without ascites; I10 Essential (primary) hypertension; E78.00 Pure hypercholesterolemia, unspecified; Z87.891 Personal history of nicotine dependence; K21.9 Gastro-esophageal reflux disease without esophagitis; E11.65 Type 2 diabetes mellitus with hyperglycemia; R13.10 Dysphagia, unspecified; R50.9 Fever, unspecified; K75.81 Nonalcoholic steatohepatitis (NASH); K70.30 Alcoholic cirrhosis of liver without ascites; F41.9 Anxiety disorder, unspecified; N40.0 Benign prostatic hyperplasia without lower urinary tract symptoms; M47.892 Other spondylosis, cervical region; F32.9 Major depressive disorder, single episode, unspecified; E78.5 Hyperlipidemia, unspecified; E66.9 Obesity, unspecified; Z68.36 Body mass index [BMI] 36.0-36.9, adult; H90.3 Sensorineural hearing loss, bilateral; Y83.2 Surgical operation with anastomosis, bypass or graft as the cause of abnormal reaction of the patient, or of later complication, without mention of misadventure at the time of the procedure; Y73.3 Surgical instruments, materials and gastroenterology and urology devices (including sutures) associated with adverse incidents; R20.2 Paresthesia of skin; K44.9 Diaphragmatic hernia without obstruction or gangrene; I25.10 Atherosclerotic heart disease of native coronary artery without angina pectoris; F10.20 Alcohol dependence, uncomplicated; K80.20 Calculus of gallbladder without cholecystitis without obstruction; Z79.84 Long term (current) use of oral hypoglycemic drugs
CPT/HCPCS: 43245; 43239; 36410; 36415; 70544; 70547; 71250; 80048; 80053; 80061; 80076; 82306; 82550; 82805; 83690; 84145; 85027; 86704; 86706; 86709; 86803; 87040; 87340; 87798; 88305; 93005; 96361; 96365; 96366; 99222; 99232; 99233; 99238; 99253; 99285; 99291; U0003; 70551; 71045; 72141; 74176; 81003; 82248; 82607; 82728; 82746; 82977; 83036; 83540; 83550; 83605; 83735; 83880; 84443; 84450; 84460; 84484; 85025; 85379; 85610; 85730; 86140; 86618; 93010; 94667; 99219; G0378; J2543

== ENCOUNTER 2020-07-14 13:31 | Outpatient (REF) | payer MEDICARE, OTHER, SELFPAY ==
[2020-07-14 19:36] LABS: Abs Immature Grans 0.01 10^3/uL (0.0-0.06); Absolute Basophil Count 0.01 10^3/uL (0.0-0.2); Absolute Eosinophil Count 0.12 10^3/uL (0.0-0.7); Absolute Lymphocyte Count 1.58 10^3/uL (1.2-3.4); Absolute Monocyte Count 0.42 10^3/uL (0.1-0.8); Absolute Neutrophil Count 3.89 10^3/uL (1.2-6.7); Basophils % 0.2; HCT 42.2 % (40.0-50.0); Immature Grans % 0.2; Lymphocytes % 26.2; MCH 30.7 pg (27.0-33.0); MCHC 33.2 % (32.0-36.0); MCV 92.5 fL (80-95); Neutrophils % 64.4; Nucleated RBC 0 %; Platelet Count 250 10^3/uL (130-400); RBC 4.56 10^6/uL (4.36-5.78); RDW 11.9 % (11.8-14.1); RDW-SD 40.8 fL; WBC 6.03 10^3/uL (4.4-10.8)
[2020-07-14 20:01] LABS: ALT 67 U/L (16-63); AST 38 U/L (15-37); Albumin 4.2 g/dL (3.4-5.0); Alkaline Phosphatase 97 U/L (46-116); Anion Gap 10.1 mmol/L (3-11); BUN 27 mg/dL (7-18); Bilirubin, Total 0.9 mg/dL (0.2-1.0); CO2 23.9 mmol/L (21.0-32.0); CREATININE 1.36 mg/dL (0.70-1.30); Calcium 9.7 mg/dL (8.5-10.1); Chloride 101 mmol/L (98-107); Estimated GFR 52.93 (mL/min/1.73m2); Glucose 183 mg/dL (74-106); Potassium 5.3 mmol/L (3.5-5.1); Sodium 135 mmol/L (136-145); Total Protein 7.3 g/dL (6.4-8.2)
== END 2020-07-14 13:51 ==
LOC: NCHCN 13:31
PROVIDERS: PCP Family Medicine; Visit Provider Family Medicine
DX: D70.3 Neutropenia due to infection (principal); K76.0 Fatty (change of) liver, not elsewhere classified
CPT/HCPCS: 80053; 85025

== ENCOUNTER → 2020-07-30 09:48 | Outpatient (BNVA) | payer MEDICARE, OTHER, SELFPAY | PROVIDERS: PCP Family Medicine; Referring Provider Family Medicine; Visit Provider Surgery | DX: Z48.815 Encounter for surgical aftercare following surgery on the digestive system (principal); E11.65 Type 2 diabetes mellitus with hyperglycemia; K82.8 Other specified diseases of gallbladder; Z98.84 Bariatric surgery status; K70.30 Alcoholic cirrhosis of liver without ascites; M48.02 Spinal stenosis, cervical region; K91.89 Other postprocedural complications and disorders of digestive system | CPT/HCPCS: 99213; 99215 ==

== ENCOUNTER 2020-07-31 02:05 | Outpatient (CLI) | payer MEDICARE, OTHER, SELFPAY ==
[2020-08-02 10:23] LABS: COVID-19 RT-PCR Result NEGATIVE (Negative)
== END 2020-07-31 02:25 ==
PROVIDERS: PCP Family Medicine; Visit Provider Family Medicine
DX: Z11.52 Encounter for screening for COVID-19 (principal); Z01.811 Encounter for preprocedural respiratory examination
CPT/HCPCS: U0003

== ENCOUNTER 2020-08-03 05:27 | Outpatient (CLI) | payer MEDICARE, OTHER, SELFPAY ==
[2020-08-03] MEDS: Albuterol HFA 18 GM 200 PUFF INH IH (09:03)
[2020-08-03] MEDS: Inhaler, Assist Device 1 EACH MC (09:04)
--- NOTE | 2020-08-05 16:39 | W.PFT ---
Date of service: 08/03/20 Time of Service: 08:03 Pulmonary Function Test Result Interpretation Spirometry: Shows no evidence of obstructive airways disease, no bronchodilator response Lung Volumes: No evidence of restriction Diffusion Capacity: Mildly reduced, this is normal when corrected to alveolar volume. This also represents a somewhat suboptimal patient effort Airway Pressure: Normal Impression Overall, normal pulmonary function study the slightly low diffusion capacity is likely due to suboptimal patient effort for that maneuver when the study was compared to previous 1 from 05/08/2017 diffusion capacity is slightly lower but is stable when corrected to alveolar volume FVC had asked 680 cc decline, FEV1 had declined by 560 cc both pre and postbronchodilator spirometry efforts were poor Clinical Correlation therefore is recommended.
== END 2020-08-03 05:47 ==
PROVIDERS: PCP Family Medicine; Visit Provider Family Medicine
DX: R06.09 Other forms of dyspnea (principal)
CPT/HCPCS: 94060; 94726; 94729

== ENCOUNTER 2020-08-19 21:18 | Emergency (ER) | payer MEDICARE, OTHER, SELFPAY ==
[2020-08-19] VITALS (24 sets, daily range): BP systolic 121–142; BP diastolic 72–84; PULSE 73–87; RESP 10–20; TEMP 36.4; O2SAT 94–98
--- NOTE | 2020-08-19 00:27 | DI.CT_ITS ---
EXAM: CT CHEST PE CTA CLINICAL HISTORY: CP, SOB, elevated d-dimer. TECHNIQUE: Imaging Protocol: Axial CT angiography was performed with multi-slice acquisition and mu lti-planar and/or 3D reconstructions. CONTRAST MATERIAL: Intravenous: Omnipaque 350 Contrast volume:structured 85 cc COMPARISON: CT CT CHEST/ABD/PEL WO from 07/02/2020 FINDINGS: Pulmonary Arteries: No evidence of filling defect to suggest pulmonary emboli. Tracheobronchial tree: Patent where visualized. Mediastinum and Velma: No dominant adenopathy or fluid collection. Pulmonary parenchyma: Mild respiratory motion. No consolidation or dominant measurable mass. No arch itectural distortion. Pleura: No effusion or pneumothorax. Heart: The heart is not dilated. No coronary artery calcifications are seen. Aorta: Thoracic aorta non-dilated. Upper abdomen: Prior gastric bypass, unchanged from previous exam.. Bones: Old sternal fracture. Degenerative changes in the spine. IMPRESSION: No evidence of pulmonary embolism or other acute abnormality.. RADIATION DOSE DELIVERED: 521.69mGy.cm Total DLP DATA REPOSITORY: All CT scans at this facility are submitted to the National Radiology Data Registry (NRDR) Dose Index Registry (DIR) with the [employer] (ACR). RADIATION OPTIMIZATION: All CT scans at this facility use at least one of these dose optimization te chniques: automated exposure control; mA and/or kV adjustment per patient size (includes targeted exa ms where dose is matched to clinical indication); or iterative reconstruction.
--- NOTE | 2020-08-19 21:15 | RT.EKG_ITS ---
APPROVED REPORT Exam: Resting ECG Patient Location: E HR:79 bpm ECG Measurements Heart Rate 79 AXIS AZ 170 P 52 QRSd 99 QRS -7 QT 354 T 35 QTc 407 Conclusion Sinus rhythm...normal P axis, V-rate 60- 99 I have reviewed and interpreted ECG and agree with software generated interpretation. Physician: No stemi
--- NOTE | 2020-08-19 21:22 | ED.GENADUL_ITS ---
Discharge Plan Disposition Patient Disposition: HOME Condition: Good Discharge Details Clinical Impression: Chest pain, Gastric irritation Primary Care Provider: Yung Horn ED Provider: Nabil Daniel Home Meds and New Rx's Prescriptions: Continued metformin [Glucophage] 1,000 MG tablet 1,000 mg PO BID RF: 0 aspirin 81 MG tablet,delayed release (DR/EC) 81 mg PO DAILY RF: 0 tamsulosin 0.4 mg capsule 0.4 mg PO HS RF: 0 Trulicity 0.75 mg/0.5 mL pen injector 0.75 mg SUBCUT QWEEK RF: 0 glipizide 10 mg tablet extended release 24hr 20 mg PO DAILY RF: 0 lisinopril 20 mg tablet 20 mg PO DAILY RF: 0 gabapentin 800 mg tablet 800 mg PO TID RF: 0 pantoprazole 40 mg tablet,delayed release (DR/EC) 40 mg PO BID RF: 0 ferrous sulfate [iron] 325 mg (65 mg iron) Tablet 325 mg PO DAILY RF: 0 cholecalciferol (vitamin D3) [Vitamin D3] 50 mcg (2,000 unit) Capsule 50 mcg PO DAILY RF: 0 venlafaxine 225 mg tablet extended release 24hr 225 mg PO DAILY RF: 0 Discharge Instructions Instructions: Chest Pain (ED), Diet for Stomach Ulcers and Gastritis (ED) Additional Instructions: At this time the work-up for your heart is very reassuring and shows no signs of heart attack. Your CAT scan and imaging is reassuring and shows no significant abnormality in your lungs or abdomen. There is likely a component of gastric irritation which is causing your symptoms. Please avoid any spicy foods, greasy foods, tomato-based foods, soda or black coffee. Please stick with a bland diet as described in the provided instructions. Although your heart shows no signs of heart attack, it is beneficial to follow-up closely with your family doctor for evaluation of potential outpatient further cardiac testing and/or stress testing. If you notice any worsening of your symptoms, or any new symptoms such as vomiting, diarrhea, fever, chills, shortness of breath, chest pain, numbness, weakness, or fainting , please return immediately to the emergency department for reevaluation. Please follow up with your primary care provider as soon as possible for reassessment and reevaluation. As always, it was a pleasure participating in your medical care today. Referrals: Yung Horn [Primary Care Provider] - Discharge Data Discharge Date/Time-TO BE ENTERED AT DEPARTURE: 08/20/20 01:44 Medical Decision Making <EUGENIO Corona - Last Filed: 08/21/20 12:25> Patient is a pleasant 64-year-old gentleman presenting today with chief complaint of chest pain and shortness of breath. Past medical history pertinent for anastomotic stricture as gastrojejunostomy, uncontrolled type 2 diabetes, status post gastric bypass, alcoholic cirrhosis, GERD, hyperlipidemia, hypertension. Patient was seen here on 07/01/2020 at which time he was admitted for syncope and chest discomfort. During his inpatient stay, it was determined that the patient was having worsening of his stricture of his gastrojejunostomy and underwent an EGD with dilatation. He reports that after the procedure, his symptoms improved but were short-lived. He reports roughly 2 weeks of improved symptoms. He states that he has cut out alcohol completely and is also noted to have elevated bilirubin thought to be associated with his cirrhosis secondary to alcohol. He reports that his chest pain is brought on with eating. States he ate ham for dinner and that meat often can exacerbate his discomfort as well. Patient does drink a large amount of coffee as well as orange juice. Patient also reports that 2 weeks ago he went ice fishing and experience shortness of breath when walking outside. He states that he had not walked outside or for any distance for quite some time prior to that. On exam, patient is appears chronically ill primarily associated with his obesity. He does become winded with fairly minimal exertion. However, he does not drop his O2 saturations with his symptoms of shortness of breath. Patient's blood pressure is 142/74 which appears to be his baseline. Lungs are clear. No murmurs, rubs or gallops on cardiac exam. No lower extremity edema, calves are soft and nontender. Lungs are clear in all musa. With the patients SOB, plan to obtain BNP. Based on patients history, I am primarily concerned for GI source of his CP. Will give patient GI cocktail and reassess. Also considered pneumonia, ACS. Possible PE, will screen with d-dimer. History and exam is not consistent with dissection or ruptured AAA. Labs reviewed. No leukocytosis, stable H&H. D-dimer elevated at 813. Glucose is elevated at 266. Magnesium 1.6, will replenish this here. Troponin WNL. BNP normal. Patient reports his CP is improved after GI cocktail. However, he is now r eporting he has new pain in his left arm. Will obtain CT for PE protocol, repeat troponin. At the end of my shift, patient states that his symptoms are improving. CT and repeat troponin pending. Care transitioned to Dr. Daniel. <Nabil Daniel, DO - Last Filed: 08/20/20 01:52> Patient case was signed out to me by my colleague Jeremias Flower, please refer to her HPI, physical exam, assessment and plan. At time of signout we are pending repeat troponin. CAT scan of the chest and abdomen. CT results have returned and troponin has returned, all of which are normal with no significant abnormalities. Patient feels well. Vital signs remain notably stable. Symptoms are most concerning for gastric irritation especially in conjunction with his previous bariatric bypass. Symptoms appear inconsistent with PE, dissection, ACS. Recommend change in diet at home, continuation of his reflux medications. Discussed the importance of close follow-up with his PCP for further assessment. Patient will be discharged. Discussed the case with his . I have extensively reviewed the treatment plan and discharge instructions with the patient and their family. I have addressed all patient concerns at this time. The patient and family was made aware of what symptoms to monitor for that would warrant a return to the emergency department. Discussed the plan with the patient and family, they demonstrate verbal understanding and agreement with our assessment and plan at this time. The documentation in this chart was dictated using [employer] dictation software. Please excuse any dictation errors. FINDINGS: Pulmonary arteries: No pulmonary embolism evident. Aorta: Unremarkable. No aortic aneurysm. No aortic dissection. Lungs: No acute lung infiltrates or consolidation. No pulmonary edema. Pleural spaces: No pleural effusions. Heart: Normal heart size. No pericardial effusion. Lymph nodes: Unremarkable. No enlarged lymph nodes. Bones/joints: Unremarkable. No acute fracture. Soft tissues: Unremarkable. IMPRESSION: 1. No pulmonary arterial embolism evident. 2. Clear lungs and pleural space. 3. No cardiac enlargement or pericardial effusion. 4. Thoracic aorta is normal in configuration. 5. Previous Keiko-en-Y bariatric bypass is noted in the upper abdomen. This site is unremarkable in appearance, but seen in a limited fashion. 6. Stable exam since 03/06/2020. Thank you for allowing us to participate in the care of your patient. Dictated and Authenticated by: Ayden Sen MD 08/20/2020 12:43 AM Eastern Time ([place] & [place]) HPI <EUGENIO Corona - Last Filed: 08/21/20 12:25> General Mode of arrival: ambulatory . Date/Time Provider Initiated Documentation: 08/19/20 21:22 . Limitations to Documentation: no limitations . Information obtained by: patient and RN notes reviewed . History of Present Illness 64 year old M presents to the emergency department with the chief complaint of CP, exertional SOB, described as moderate, with intensity rated at 5. Quality is described as burning, and is localized to the chest. Patient reports no radiation. Patient started experiencing this week(s) and it has been constant. Immobilization improves symptom(s), (SOB improves with rest) Eating worsens symptoms (worsening CP) and Movement worsens symptoms (exertion worsens SOB) . Patient notes chest pain and shortness of breath; denies cough, diaphoresis, fever/chills, headaches, loss of appetite, nausea/vomiting, syncope and weakness. Patient did receive the following treatments prior to arrival, none Related Data Home Medications Medication Instructions Recorded Confirmed aspirin 81 mg PO DAILY 05/26/17 08/19/20 metformin [Glucophage] 1,000 mg PO BID 11/27/17 08/19/20 Trulicity 0.75 mg SUBCUT QWEEK 07/01/20 08/19/20 tamsulosin 0.4 mg PO HS 07/01/20 08/19/20 cholecalciferol (vitamin D3) 50 mcg PO DAILY 07/02/20 08/19/20 [Vitamin D3] ferrous sulfate [iron] 325 mg PO DAILY 07/02/20 08/19/20 gabapentin 800 mg PO TID 07/02/20 08/19/20 glipizide 20 mg PO DAILY 07/02/20 08/19/20 lisinopril 20 mg PO DAILY 07/02/20 08/19/20 pantoprazole 40 mg PO BID 07/02/20 08/19/20 venlafaxine 225 mg PO DAILY 07/02/20 08/19/20 Allergies Allergy/AdvReac Type Severity Reaction Status Date / Time adhesive Allergy Intermediate blisters Unverified 07/30/20 09:53 General NASIMA: 2 Review of Systems <EUGENIO Cornoa - Last Filed: 08/21/20 12:25> Constitutional Constitutional: Reports as per HPI, Denies chills, Denies fever(s), Denies headache(s), Denies lethargy and Denies poor appetite Eyes Eyes: Denies change in vision ENT Ears, Nose, Mouth, and Throat: Denies dizziness and Denies headache(s) Cardiovascular Cardiovascular: Reports as per HPI, Denies dyspnea and Reports dyspnea on exertion Respiratory Respiratory: Reports as per HPI, Denies chest congestion, Denies cough, Denies pain on inspiration, Denies pain with cough, Denies dyspnea, Reports dyspnea on exertion and Denies wheezing Gastrointestinal Gastrointestinal: Reports as per HPI, Denies abdominal pain, Denies diarrhea, Denies nausea and Denies vomiting Genitourinary Genitourinary: Denies system reviewed and no additional complaints, except as documented (denies change in urinary habits) Musculoskeletal Musculoskeletal: Reports as per HPI and Denies back pain Integumentary/Breasts Skin/Breast: Reports as per HPI and Denies rash Neurologic Neurologic: Reports as per HPI, Denies dizziness and Denies headache(s) Allergic/Immunologic Allergic/Immunologic: Denies wheezing PFSH <EUGENIO Corona - Last Filed: 08/21/20 12:25> Medical History Abnormality of penis (11/18/14) Alcoholic cirrhosis of liver without ascites Anxiety (07/16/14) Benign neoplasm of colon (08/15/11) BPH (benign prostatic hyperplasia) Degenerative cervical spinal stenosis (12/23/14) Depression (07/16/14) Diabetes mellitus type II, uncontrolled Elevated bilirubin Erectile dysfunction (06/19/14) Gallbladder sludge GERD (gastroesophageal reflux disease) Hyperlipidemia (05/16/13) Hypertension Liver cirrhosis secondary to nonalcoholic steatohepatitis (HERR) Non-insulin dependent type 2 diabetes mellitus Obesity (BMI 35.0-39.9 without comorbidity) Sensorineural hearing loss, bilateral (01/06/17) Surgical History bunionectomy (07/18/14) Left Dr Márquez H/O gastric bypass Repair of inguinal hernia Repair, ACL Rotator Cuff Repair S/P gastric bypass Family History Mother Alzheimer disease Social History Smoking/Tobacco Use Status: Former Tobacco Use Smoking risk assessment performed?: Yes Alcohol Intake: former Drug use: Never Substance use type: does not use Details: pt states that he stopped drinking 06/26/20 Do you feel safe at home: Yes Do you feel safe in your relationship?: Yes Exam <EUGENIO Corona - Last Filed: 08/21/20 12:25> Const General: cooperative, comfortable, no acute distress, well developed and ill appearing chronically Nutritional Appearance: well nourished and obese Orientation: alert, awake and oriented x3 HENMT Head: normal to inspection Ears: hearing grossly normal bilaterally Chest Chest: normal inspection of the chest, normal palpation of entire chest wall and no crepitus Resp Effort & Inspection: normal respiratory effort, able to speak in complete sentences and no respiratory distress Auscultation: clear to auscultation bilaterally, no rales, no rhonchi and no wheezes Cardio Rate: regular rate Rhythm: regular rhythm Heart Sounds: S1 normal and S2 normal GI Inspection: normal to inspection, no edema, non-distended and obesity Palpation: soft, no hepatosplenomegaly, not firm, no guarding, not rigid and nontender Percussion: normal to percussion and no fluid wave Auscultation: normal bowel sounds Back/Spine/Pelvis Back: no CVA tenderness Thoracic/Lumbar Spine: thoracic and lumbar spine normal to inspection Skin General skin exam: no rashes or lesions noted Trauma: no lacerations or abrasions Neuro General: patient alert, patient awake and patient oriented x3 Cognition: normal cognition Speech: speech normal Gait: normal gait Extrem General: normal to inspection, capillary refill normal, no pedal edema, no calf tenderness and normal gait Psych Appearance: grossly normal and well kempt Mental Status: mental status grossly normal Speech and Movement: speech and movement normal Sign Out <EUGENIO Corona - Last Filed: 08/21/20 12:25> Sign Out Data: Sign Out Comment: Care transitioned to Dr. Daniel with repeat troponin and CT for PE pending. Last updated by Britt Anne PA at 08/20/20 00:23
[2020-08-19 21:46] LABS: Abs Immature Grans 0.02 10^3/uL (0.0-0.06); Absolute Basophil Count 0.01 10^3/uL (0.0-0.2); Absolute Eosinophil Count 0.15 10^3/uL (0.0-0.7); Absolute Lymphocyte Count 1.48 10^3/uL (1.2-3.4); Absolute Neutrophil Count 3.11 10^3/uL (1.2-6.7); Basophils % 0.2; Eosinophils % 2.9; HCT 38.8 % (40.0-50.0); HGB 13.2 g/dL (13.5-17.5); Immature Grans % 0.4; Lymphocytes % 28.6; MCH 30.5 pg (27.0-33.0); MCV 89.6 fL (80-95); MPV 9.9 fL (8.0-11.0); Monocytes % 7.7; Neutrophils % 60.2; Nucleated RBC 0 %; Platelet Count 187 10^3/uL (130-400); RBC 4.33 10^6/uL (4.36-5.78); RDW 12.3 % (11.8-14.1); RDW-SD 40.4 fL; WBC 5.17 10^3/uL (4.4-10.8)
[2020-08-19] MEDS: Lidocaine 2% Viscous 15 ML CUP (21:50)
[2020-08-19] MEDS: Mylanta Suspension 30 ML CUP (21:50)
--- NOTE | 2020-08-19 22:00 | DI.RAD_ITS ---
EXAM: XR PORTABLE CHEST AP CLINICAL HISTORY: SOB TECHNIQUE: 2D digital imaging was performed. COMPARISON: CT CT CHEST PE CTA from 08/20/[address] CHEST PE CTA from 08/20/2020 FINDINGS: LUNGS: Leads overlie the chest. The lungs are suboptimally inflated. No focal area of consolidation is seen. Increased interstitial markings could represent chronic fibrotic changes or mild pulmonary edema. No pleural abnormality seen. HEART: Normal. MEDIASTINUM: Aorta mildly tortuous. BONES: Degenerative changes in the thoracic spine. IMPRESSION: Question of mild pulmonary edema versus fibrotic changes. DATA REPOSITORY: RADIATION DOSE DELIVERED:
[2020-08-19 22:01] LABS: PTT Activated 21.3 sec (21.0-27.5); Prothrombin Time 9.7 sec (9.3-11.0)
[2020-08-19 22:07] LABS: ALT 50 U/L (16-63); AST 22 U/L (15-37); Albumin 3.7 g/dL (3.4-5.0); Alkaline Phosphatase 69 U/L (46-116); Anion Gap 8.3 mmol/L (3-11); BUN 17 mg/dL (7-18); Bilirubin, Total 0.3 mg/dL (0.2-1.0); CO2 27.7 mmol/L (21.0-32.0); CREATININE 1.3 mg/dL (0.70-1.30); Calcium 9.1 mg/dL (8.5-10.1); Chloride 104 mmol/L (98-107); Estimated GFR 55.75 (mL/min/1.73m2); Glucose 266 mg/dL (74-106); Magnesium 1.6 mg/dL (1.8-2.4); NT-proBNP 106 pg/mL (<300); Potassium 4.8 mmol/L (3.5-5.1); Sodium 140 mmol/L (136-145); Total Protein 7.5 g/dL (6.4-8.2)
[2020-08-19 22:09] LABS: Troponin I < 0.05 ng/mL (<0.06)
--- NOTE | 2020-08-19 22:10 | DI.VRAD_ITS ---
PROCEDURE INFORMATION: Exam: XR Chest, 1 View Exam date and time: 08/19/2020 10:00 PM Age: 64 years old Clinical indication: Chest pain TECHNIQUE: Imaging protocol: XR of the chest Views: 1 view. COMPARISON: CT CHEST/ABD/PEL WO 07/02/2020 3:12 PM FINDINGS: Lungs: Bilateral airspace disease with ill-defined areas of opacification in the right lower lobe and in the left mid to the lower lobe. Cannot exclude a bilateral pneumonitis. There are also changes of mild increase interstitial septal markings which could represent a component of mild edema. A previous CT chest for comparison is dated 07/02/2020. No distinct infiltrates at that time. No previous features of edema. Pleural spaces: No pleural effusion. Heart/Mediastinum: Normal heart size. Bones/joints: Degenerative thoracic spine disease. IMPRESSION: 1. Bilateral airspace disease which may represent mild infiltrates or early edema. 2. No pleural effusions. 3. Degenerative thoracic spine disease. Dictated and Authenticated by: Ayden Sen MD. Ordering:YAMILE De La Torre MD
[2020-08-19] MEDS: MAGNESIUM SULFATE 1 GM/100 ML BAG IVPB (22:30)
[2020-08-19 23:08] LABS: D-Dimer 813 ng/mlFEU (<500)
[2020-08-20] VITALS (7 sets, daily range): BP systolic 140; BP diastolic 76; PULSE 72–77; RESP 9–13; O2SAT 95–97
[2020-08-20] MEDS: Normal Saline Flush 10 ML SYR IVP (00:21)
[2020-08-20] MEDS: Normal Saline - Diluent 50 ML VIAL IV (00:26)
[2020-08-20] MEDS: Omnipaque 350 MG/ML 100 ML BTL IJ (00:26)
--- NOTE | 2020-08-20 00:43 | DI.VRAD_ITS ---
PROCEDURE INFORMATION: Exam: CT Angiography Chest With Contrast Exam date and time: 08/19/2020 12:19 AM Age: 64 years old Clinical indication: Chest pain; Type not specified; Prior surgery; Surgery date: 6+ months; Surgery type: Gastric bypass TECHNIQUE: Imaging protocol: Computed tomographic angiography of the chest with contrast. 3D rendering (Not supervised by radiologist): MIP and/or 3D reconstructed images were created by the technologist. Radiation optimization: All CT scans at this facility use at least one of these dose optimization techniques: automated exposure control; mA and/or kV adjustment per patient size (includes targeted exams where dose is matched to clinical indication); or iterative reconstruction. Contrast material: [id number]; Contrast volume: 85 ml; Contrast route: INTRAVENOUS (IV); COMPARISON: CT CHEST PE CTA 03/06/2020 4:59 PM FINDINGS: Pulmonary arteries: No pulmonary embolism evident. Aorta: Unremarkable. No aortic aneurysm. No aortic dissection. Lungs: No acute lung infiltrates or consolidation. No pulmonary edema. Pleural spaces: No pleural effusions. Heart: Normal heart size. No pericardial effusion. Lymph nodes: Unremarkable. No enlarged lymph nodes. Bones/joints: Unremarkable. No acute fracture. Soft tissues: Unremarkable. IMPRESSION: 1. No pulmonary arterial embolism evident. 2. Clear lungs and pleural space. 3. No cardiac enlargement or pericardial effusion. 4. Thoracic aorta is normal in configuration. 5. Previous Keiko-en-Y bariatric bypass is noted in the upper abdomen. This site is unremarkable in appearance, but seen in a limited fashion. 6. Stable exam since 03/06/2020. Dictated and Authenticated by: Ayden Sen MD. Ordering:YAMILE De La Torre MD
[2020-08-20 01:02] LABS: Troponin I < 0.05 ng/mL (<0.06)
== END 2020-08-20 01:44 | disposition home or self-care (01) ==
PROVIDERS: Physician Assistant; Emergency Provider Student in an Organized Health Care Education/Training Program; PCP Family Medicine
DX: K31.84 Gastroparesis (principal); R07.89 Other chest pain; R79.1 Abnormal coagulation profile; E83.42 Hypomagnesemia
CPT/HCPCS: 36415; 71275; 80053; 93005; 96365; 99285; 71045; 83735; 83880; 84484; 85025; 85379; 85610; 85730; 93010; J3475; J3490

== ENCOUNTER → 2020-09-17 12:46 | Outpatient (BNVA) | payer MEDICARE, OTHER, SELFPAY | PROVIDERS: PCP Family Medicine; Referring Provider Family Medicine; Visit Provider Surgery | DX: R69 Illness, unspecified (principal) ==

== ENCOUNTER 2020-09-17 18:36 | Outpatient (CLI) | payer MEDICARE, OTHER, SELFPAY ==
--- NOTE | 2020-09-17 14:15 | DI.RAD_ITS ---
EXAM: XR CHEST 2V PA LATERAL CLINICAL HISTORY: RO6.02 sob at rest/smoker/chest pain R53.1 WEAKNESS R42 DIZZINESS GIDDINESS TECHNIQUE: 2D digital imaging was performed. COMPARISON: CR,XR XR PORTABLE CHEST AP from 08/19/2020 FINDINGS: MEDIASTINUM: Normal. HEART: Normal. PULMONARY VASCULATURE: Normal. LUNGS: Clear. No focal consolidating infiltrates. PLEURAL SPACE: No pleural effusion or pneumothorax. BONE:Within normal limits for the patient's age. OTHER FINDINGS:Normal. IMPRESSION: No acute pulmonary findings. DATA REPOSITORY: RADIATION DOSE DELIVERED:
== END 2020-09-17 18:56 ==
PROVIDERS: PCP Family Medicine; Visit Provider Surgery
DX: R06.02 Shortness of breath (principal); R53.1 Weakness; R42 Dizziness and giddiness; F17.210 Nicotine dependence, cigarettes, uncomplicated; K82.8 Other specified diseases of gallbladder; K91.89 Other postprocedural complications and disorders of digestive system; E11.65 Type 2 diabetes mellitus with hyperglycemia; Z98.84 Bariatric surgery status; K70.30 Alcoholic cirrhosis of liver without ascites
CPT/HCPCS: 99213; 99215; 71046

== ENCOUNTER 2020-09-17 19:24 | Outpatient (REF) | payer MEDICARE, OTHER, SELFPAY ==
[2020-09-17 20:21] LABS: Abs Immature Grans 0.02 10^3/uL (0.0-0.06); Absolute Basophil Count 0.01 10^3/uL (0.0-0.2); Absolute Eosinophil Count 0.12 10^3/uL (0.0-0.7); Absolute Monocyte Count 0.46 10^3/uL (0.1-0.8); Absolute Neutrophil Count 4.07 10^3/uL (1.2-6.7); Basophils % 0.2; Eosinophils % 1.9; HCT 42.6 % (40.0-50.0); HGB 14.1 g/dL (13.5-17.5); Immature Grans % 0.3; Lymphocytes % 24.3; MCH 30.5 pg (27.0-33.0); MCHC 33.1 % (32.0-36.0); MPV 10.5 fL (8.0-11.0); Monocytes % 7.4; Neutrophils % 65.9; Nucleated RBC 0 %; Platelet Count 181 10^3/uL (130-400); RBC 4.63 10^6/uL (4.36-5.78); RDW 12.6 % (11.8-14.1); RDW-SD 42.3 fL; WBC 6.18 10^3/uL (4.4-10.8)
[2020-09-17 20:56] LABS: ALT 47 U/L (16-63); AST 24 U/L (15-37); Albumin 4.1 g/dL (3.4-5.0); Alkaline Phosphatase 65 U/L (46-116); Anion Gap 7.4 mmol/L (3-11); BUN 21 mg/dL (7-18); Bilirubin, Total 0.2 mg/dL (0.2-1.0); CO2 29.6 mmol/L (21.0-32.0); Calcium 9.5 mg/dL (8.5-10.1); Chloride 104 mmol/L (98-107); Glucose 113 mg/dL (74-106); Potassium 5.3 mmol/L (3.5-5.1); Sodium 141 mmol/L (136-145); Total Protein 7.5 g/dL (6.4-8.2)
[2020-09-17 21:00] LABS: Iron 55 ug/dL (65-175); Total Iron Binding Capacity 332 ug/dL (250-450); Transferrin Sat 17 % (20-55)
== END 2020-09-17 19:25 | disposition home or self-care (01) ==
LOC: LBN 19:24
PROVIDERS: PCP Family Medicine; Visit Provider Surgery
DX: E11.65 Type 2 diabetes mellitus with hyperglycemia (principal); R53.1 Weakness; K74.60 Unspecified cirrhosis of liver; K70.30 Alcoholic cirrhosis of liver without ascites; R42 Dizziness and giddiness; Z98.84 Bariatric surgery status
CPT/HCPCS: 80053; 83540; 83550; 85025

== ENCOUNTER 2020-10-01 21:21 | Outpatient (REF) | payer MEDICARE, OTHER, SELFPAY ==
[2020-10-01 19:16] LABS: Magnesium 1.7 mg/dL (1.8-2.4); Potassium 4.9 mmol/L (3.5-5.1)
== END 2020-10-01 21:22 | disposition home or self-care (01) ==
LOC: NCHCN 21:21
PROVIDERS: PCP Family Medicine; Visit Provider Family Medicine
DX: E87.5 Hyperkalemia (principal); E83.42 Hypomagnesemia
CPT/HCPCS: 83735; 84132

== ENCOUNTER 2020-10-24 13:29 | Emergency (ER) | payer MEDICARE, OTHER, SELFPAY ==
--- NOTE | 2020-10-24 | DI.CT_ITS ---
EXAM: CT HEAD CERVICAL SPINE WO COMPARISON: No exams were available for comparison FINDINGS: CT examination of the cervical spine was performed without contrast administration. There are prominent hypertrophic degenerative changes involving the vertebral endplates and to a less er degree the facet joints of the lower cervical spine. There is no evidence of acute cervical spine fracture or dislocation. Intervertebral disc spaces are well maintained. Tracheolaryngeal structures appear intact. No cervical mass or adenopathy. Noncontrast cranial CT was performed. Ventricular system is normal in appearance. No evidence of acute intracranial hemorrhage, mass effect, or midline shift. No calvarial fracture. The orbital and temporal bone structures appear intact. Visualized mastoid air cells and paranasal sinuses appear clear. IMPRESSION: No evidence of acute cervical spine injury. No evidence of acute intracranial injury. RADIATION DOSE DELIVERED: 1,317.32mGy.cm Total DLP 1,317.32mGy.cm Total DLP DATA REPOSITORY: All CT scans at this facility are submitted to the National Radiology Data Registry (NRDR) Dose Index Registry (DIR) with the [employer] ([employer]). RADIATION OPTIMIZATION: All CT scans at this facility use at least one of these dose optimization te chniques: automated exposure control; mA and/or kV adjustment per patient size (includes targeted exa ms where dose is matched to clinical indication); or iterative reconstruction.
[2020-10-24 13:36] VITALS: BP 137/73; PULSE 81; RESP 17; TEMP 36.8; O2SAT 97
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
[2020-10-24] MEDS: Cyclobenzaprine 10 MG TAB PO (14:26)
[2020-10-24] MEDS: oxyCODONE 5 MG TAB PO (14:26)
--- NOTE | 2020-10-24 15:03 | DI.RAD_ITS ---
EXAM: XR SHOULDER RT COMPLETE 2+V CLINICAL HISTORY: FALL TECHNIQUE: COMPARISON: CR RIGHT SHOULDER COMPLETE from 11/27/2017 FINDINGS: Five views were obtained. There is suture anchors in the greater tuberosity of the humerus. There i s no evidence of acute fracture or dislocation. Chronic changes associated with the AC joint noted w ith a small free loose osseous body at the AC joint. Presumed prior resection of the distal clavicle . IMPRESSION: No evidence of acute injury. RADIATION DOSE DELIVERED: Total DLP
--- NOTE | 2020-10-24 15:07 | DI.RAD_ITS ---
EXAM: XR RIBS RT W PA LAT CHEST CLINICAL HISTORY: FALL TECHNIQUE: COMPARISON: CR XR CHEST 2V PA LATERAL from 09/17/2020 CR XR SHOULDER RT COMPLETE 2+V from 10/24/2020 FINDINGS: PA and lateral chest and two views of the ribs were obtained. The heart is not enlarged. Lungs are clear. No pleural effusion. No rib fracture identified. No evidence of pneumothorax. IMPRESSION: Negative examination of the chest and ribs. RADIATION DOSE DELIVERED: Total DLP
[2020-10-24 15:46] VITALS: BP 130/84; PULSE 76; RESP 18; O2SAT 97
== END 2020-10-24 15:45 | disposition home or self-care (01) ==
PROVIDERS: Emergency Provider Registered Nurse Emergency; PCP Family Medicine
DX: S43.491A Other sprain of right shoulder joint, initial encounter (principal); W18.39XA Other fall on same level, initial encounter
CPT/HCPCS: 99284; 70450; 71046; 71100; 72125; 73030; 99283

== ENCOUNTER 2020-10-28 02:42 | Outpatient (CLI) | payer MEDICARE, OTHER, SELFPAY ==
[2020-10-28 10:28] LABS: Source Nasal/Nares
[2020-10-28 15:51] LABS: COVID-19 PCR Negative (Negative)
== END 2020-10-28 02:43 | disposition home or self-care (01) ==
LOC: LBO 02:42
PROVIDERS: PCP Family Medicine; Visit Provider Surgery
DX: Z20.822 Contact with and (suspected) exposure to COVID-19 (principal); Z01.818 Encounter for other preprocedural examination
CPT/HCPCS: 87635

== ENCOUNTER 2020-10-30 07:36 | Day surgery (SDC) | payer MEDICARE, OTHER, SELFPAY ==
--- NOTE | 2020-10-29 08:59 | W.PM.HP.N ---
Date of service: 10/30/20 Time of Service: 07:30 Assessment and Plan Assessment and plan (1) Obesity (BMI 35.0-39.9 without comorbidity): Status: Acute (2) SOB (shortness of breath): Status: Acute (3) Anastomotic stricture of gastrojejunostomy: Status: Acute Assessment and plan: EGD and possible dilation today. He has a history of anastomotic stricture from his B2 anastomosis for gastric bypass surgery. He also has gallbladder sludge but I think this is more of obstruction rather than biliary problem. He also has a history of a tubular adenoma and needs follow-up colonoscopy. Please see cardiology consult from [facility] on 10/08. He also had an echo done on this date at [facility]. Risks: Informed consent is obtained for the procedural (explained in simple layman's terms that the pt and/or family could understand) explaining risks vs benefits and alternatives to the procedure and consequences if we do not do the procedure and need/rational for the procedure. Risks include but are not limited to: bleeding, infection, perforation of colon. This would necessitate emergency surgery to repair the damage w/ possible ostomy; and other associated complications w/ the required surgery. Also complications of anesthesia including, but not limited to: aspiration, MS/CVA/. (4) Shortness of breath at rest: Status: Acute (5) Anastomotic stricture of gastrojejunostomy: Status: Acute (6) Diabetes mellitus type II, uncontrolled: Status: Chronic (7) Liver cirrhosis secondary to nonalcoholic steatohepatitis (HERR): Status: Acute (8) Alcoholic cirrhosis of liver without ascites: Status: Chronic (9) Non-insulin dependent type 2 diabetes mellitus: Status: Acute History of Present Illness Consults Consult date: 10/30/20 Narrative: Pt saw pulmonary had PFT's, and was prescribed a regimen of inhalers and CPAP. I did review Dr. Loera's notes. I did review the notes from [facility]. He has a stress test at [facility] in 2019 that was neg. When he was d/w from the hosp- Dr. Fam had ordered a stress test- this has not been done. Pt says he is feeling very light headed and dizzy at home and has to have his help him to lie down. This is a new finding for him- he could not get in touch w/ hs PCP. He says he has pain in arm and leg on the left side. His mother had heart Dx. He is not currently having any CP/SOB. no nausea or dizziness or pain in arm or jaw. -pt says he is feeling very SOB. -Pt says he feels like he has more H/I. It feels like his stomach is always full and does not empty. He is eating ok and not losing wt. HE had a CT of chest/abdom/pelvis.- see reports. carotids MRI- these were nl. He did not have an echo. His last CE was in 2015. He did have one T. Adenoma in the transverse colon and is due for a repeat CE in 2020. He did go see cardiology on 10 08 at [facility]. His bowels were good. He did not have significant pulmonary hypertension. Cardiology did not feel that he needed a cardiac cath or stress test. And is stable to proceed. He feels his shortness of breath is due to his COPD and severe deconditioning. Today he is feeling okay. His LINTON is stable. He denies any chest pain and no more shortness of breath than usual. No productive cough. No fever or chills. He completed the bowel prep. The discharge is clear yellow. He has no abdominal pain or cramping. We reviewed the procedure and risks for today. Which is EGD and possible dilation. And colonoscopy and possible polypectomy. Patient notes today that he is starting to get that feeling back in his epigastric region after he eats. Feels like a fullness and a tightness. She feels bloated and distended. No nausea. No diarrhea. No right upper quadrant pain back pain or shoulder pain. He did fall from mechanical trauma and so his right shoulder hurts today for neck. He completed the prep today. He denies any abdominal pain or cramping. He is not acutely having any chest pain or shortness of breath. He always has dyspnea on exertion. This is not changed for him. He has no fever or chills. He has a chronic cough. It is not productive and not changed. Please see notes from cardiology at [facility] on 10/08. Cardiology said he is stable for procedure Review of Systems All systems reviewed & are unremarkable except as noted in HPI and below [facility] Medical History Abnormality of penis (11/18/14) Alcoholic cirrhosis of liver without ascites Anxiety (07/16/14) Benign neoplasm of colon (08/15/11) BPH (benign prostatic hyperplasia) Degenerative cervical spinal stenosis (12/23/14) Depression (07/16/14) Diabetes mellitus type II, uncontrolled Elevated bilirubin Erectile dysfunction (06/19/14) Gallbladder sludge GERD (gastroesophageal reflux disease) Hyperlipidemia (05/16/13) Hypertension Liver cirrhosis secondary to nonalcoholic steatohepatitis (HERR) Non-insulin dependent type 2 diabetes mellitus Obesity (BMI 35.0-39.9 without comorbidity) Sensorineural hearing loss, bilateral (01/06/17) Surgical History bunionectomy (07/18/14) Left Dr Márquez H/O gastric bypass Repair of inguinal hernia Repair, ACL Rotator Cuff Repair S/P gastric bypass Family History Mother Alzheimer disease Social History Smoking/Tobacco Use Status: Former Tobacco Use Quit Date: 07/10/85 Smoking risk assessment performed?: Yes Alcohol Intake: former Drug use: Occasionally Substance use type: marijuana Details: pt states that he stopped drinking 06/26/20 Additional Social history: unable to assess privately as in attendance Meds Allergies and Home Medications Allergies Allergy/AdvReac Type Severity Reaction Status Date / Time adhesive Allergy Intermediate blisters Unverified 10/28/20 15:10 Home Medications Medication Instructions Recorded Confirmed Type aspirin 81 mg PO DAILY 05/26/17 10/28/20 History metformin [Glucophage] 1,000 mg PO BID 11/27/17 10/30/20 History Trulicity 0.75 mg SUBCUT QWEEK 07/01/20 10/30/20 History tamsulosin [Flomax] 0.4 mg PO HS 07/01/20 10/30/20 History cholecalciferol (vitamin D3) 50 mcg PO DAILY 07/02/20 10/30/20 History [Vitamin D3] ferrous sulfate [iron] 325 mg PO DAILY 07/02/20 10/30/20 History gabapentin 800 mg PO TID 07/02/20 10/30/20 History glipizide 20 mg PO DAILY 07/02/20 10/30/20 History lisinopril 20 mg PO DAILY 07/02/20 10/30/20 History pantoprazole 40 mg PO BID 07/02/20 10/30/20 History venlafaxine 225 mg PO DAILY 07/02/20 10/30/20 History albuterol sulfate 90 mcg/actuation 1 inh INHALATION ONCE 09/18/20 10/30/20 History aerosol inhaler bisacodyl 5 mg tablet,delayed 5 mg PO ONCE #4 tab 09/21/20 10/30/20 Rx release polyethylene glycol 3350 17 238 g PO ONCE #238 g 09/21/20 10/30/20 Rx gram/dose oral powder Exam Narrative Exam Narrative: PHYSICAL EXAM GENERAL APPEARANCE: Alert, healthy appearance, oriented, in no acute distress SKIN: No rashes. No breakdown HYDRATION: Well hydrated HEAD, EYES, EARS, NECK, THROAT: Head is normocephalic, pupils equal, round, reactive to light and accommodation, ocular movement intact, sclera clear and no jaundice. Dentition intact. No sore throat. No jaw pain. No thrush NECK: Supple, Trachea midline. No JVD. LUNGS: normal respiration/nl chest excursion. Clear to auscultation B/l no R/R/W HEART: Regular rate and rhythm, EXTREMITY: No edema or cyanosis no leg pain, redness, swelling. No IV infiltration ABDOMEN: non tender to palpation, no masses or distention, no hernias. Normal bowel sounds NEURO: no focal neuro deficits. COVID-19 Screening Have you, or household traveled for leisure in last 14 days?: No Had IN PERSON contact w/suspected or confirmed C-19 person: No
[2020-10-30 07:45] VITALS: BP 114/77; PULSE 101; RESP 16; TEMP 36.6; O2SAT 94
[2020-10-30] MEDS: Lactated Ringers 1,000 ML 80 ML IV (08:17)
--- NOTE | 2020-10-30 09:06 | STOM_PTH ---
PATIENT: Yung Betancur LOC: [facility] U#:[id number] AGE/SX: 64/M ROOM: RE10/30/[address]: Krystin Coe : 1955 BED: DIS: 10/30/2020 SPEC #: [id number] RECD: 10/30/20 12:41 STATUS: ROBER RE #: [id number] JI: 10/30/20 09:[address]: Krystin Coe DEPT: Surgical Specimen RECD BY: Mary Hall ENTERED: 10/30/20 12:43 SP TYPE: STOMACH OTHR DR: Yung Horn Tissues: 1 - BIOPSY BOWEL 2 - STOMACH BIOPSY 3 - HERNIA SAC,OTHER 4 - ESOPHAGUS BIOPSY 5 - ESOPHAGUS BIOPSY 6 - BIOPSY BOWEL Procedures: GROSS AND MICRO LEVEL 4 Comments: [id number]
--- NOTE | 2020-10-30 10:02 | W.COLOREPORT ---
Date of service: 10/30/20 Time of Service: 10:02 Colonoscopy Report Date of procedure: 10/30/20 Pre-op diagnosis general: A polyp Post-op diagnosis procedure note: other (same+ diverticula) Surgeon: Krystin Coe Anesthesia Type: General:No Airway Estimated blood loss (mL): 0 Pathology: other Complications: None Disposition: same day Prep: Miralax/Dulcolax Retraction Time: 15 mins Procedure Description: After informed consent was obtained the patient was taken to the procedure room and placed in a left decubitous position. Monitors were applied and a time out was done. The patients name, date of , procedure, allergies to medications and metal in their body was reviewed. The patient was then sedated. Once sedated and comfortable a rectal exam was done. External exam was normal. Internal exam revealed a normal sphincter tone and no palpable masses. The scope was then introduced and retrofelexed. grade I internal hemorrhoids were identified. The scope was then advanced to the cecum w/out difficulty. The TI and appendiceal orifice were identified. The prep was good. He does have a very prominent ileocecal valve. This was visualized under NBI light. The mucosa does have the architecture of an adenomatous polyp. It is mildly enlarged but this could be simply from mechanical irritation from the prep. Multiple biopsies are taken from this area for reevaluation. All specimen is retrieved and no bleeding is noted. If this is an adenoma it does involve the ileocecal valve and it is not amenable to endoscopic removal. No other polyps were noted throughout the entirety of the colon. The mucosa appears pink and healthy. He does have moderate diverticular disease confined to the sigmoid colon with no signs of active bleeding or infection. The scope was then slowly retracted over 15minutes back into the rectum. The scope was removed and the patient was woken up and taken back to Same day surgery in stable condition. The patient tolerated the procedure well and there were no immediate complications. Follow up: The patient should follow up in 5-10 years, path pending, Unless they develop changes in bowel habits or other new gastrointestinal complaints.
--- NOTE | 2020-10-30 10:08 | W.PM.ENDDOP ---
Date of service: 10/30/20 Time of Service: 10:08 Endoscopy Report DATE OF PROCEDURE: 10/30/20 PRE-OP DIAGNOSIS: anastomostic stricture POST-OP DIAGNOSIS: other (same + small hiatal hernia ) PROCEDURE: egd w/ bx SURGEON: Krystin Coe ANESTHESIA TYPE: General:No Airway ESTIMATED BLOOD LOSS: 0 PATHOLOGY: other DISPOSITION: same day PROCEDURE DESCRIPTION: After informed consent was obtained the patient was take to the procedure room and placed in a supine position. Monitors were applied and a time out was done. The patients name, date of , procedure type, allergies to medications and metal in their body was reviewed. A bite block was placed and the patient was sedated. Once sedated and comfortable the gastroscope was advanced through the oropharynx which was grossly normal into the esophagus. The proximal and mid-esophagus were nl. There are no esophageal erosions, varices, diverticula, or stricture.. With what appears to be a B1 anastomosis. The anastomosis itself is widely patent. But just adjacent to the anastomosis, at approximately 2-4 inches along the jejunum makes it very sharp 90degree turn, and almost appears to have a kink in the jejunum. I see how this could cause a delay in gastric emptying and bloating. This is the area I dilated on his last scope. This area has a large enough opening to accommodate the scope. But with this kink, I would see how this would make gastric emptying difficult. He has had previous gastric bypass. The scope was retracted back into the stomach and biopsies were done to rule out H. pylori. There were no ulcers/gastritis. The scope was retroflexed. The cardia and fundus were noted to be normal. There small hiatal hernia noted. The scope was retracted back into the esophagus and biopsies were done of the GE junction to rule out Ramirez's. The Z line was regular. Biopsies were taken at the anastomosis, body of stomach, GE junction, distal esophagus all specimen is retrieved. The scope was removed and the patient was woken up and taken back to [facility] in stable condition. Follow up: 2-3 wks. HIDA scan and possible gastric empytng study cont PPI
--- NOTE | 2020-10-30 10:13 | W.PM.DSUDISC ---
Discharge Plan Disposition Patient Disposition: HOME Condition: Good Discharge Details Reason For Visit: colon and stomach scope Attending Provider: Krystin Coe Primary Care Provider: Yung Horn Home Meds and New Rx's Prescriptions: Continued albuterol sulfate 90 mcg/actuation HFA aerosol inhaler 1 inh inhalation ONCE RF: 0 metformin [Glucophage] 1,000 MG tablet 1,000 mg PO BID RF: 0 aspirin 81 MG tablet,delayed release (DR/EC) 81 mg PO DAILY RF: 0 tamsulosin [Flomax] 0.4 mg capsule 0.4 mg PO HS RF: 0 Trulicity 0.75 mg/0.5 mL pen injector 0.75 mg SUBCUT QWEEK RF: 0 glipizide 10 mg tablet extended release 24hr 20 mg PO DAILY RF: 0 lisinopril 20 mg tablet 20 mg PO DAILY RF: 0 gabapentin 800 mg tablet 800 mg PO TID RF: 0 pantoprazole 40 mg tablet,delayed release (DR/EC) 40 mg PO BID RF: 0 ferrous sulfate [iron] 325 mg (65 mg iron) Tablet 325 mg PO DAILY RF: 0 cholecalciferol (vitamin D3) [Vitamin D3] 50 mcg (2,000 unit) Capsule 50 mcg PO DAILY RF: 0 venlafaxine 225 mg tablet extended release 24hr 225 mg PO DAILY RF: 0 Discontinued bisacodyl [Dulcolax (bisacodyl)] 5 mg tablet,delayed release (DR/EC) 5 mg PO ONCE Qty: 4 RF: 0 polyethylene glycol 3350 17 gram/dose powder 238 g PO ONCE Qty: 238 RF: 0 Discharge Instructions Additional Instructions: Findings:no stricture today -very small hiatal hernia -divericula of colon Follow up:Dr. Coe in 3 wks Please call if you develop: fevers >101.5 Nausea or Vomiting Abdominal pain that is not transient DAY SURGERY UNIT POST COLONOSCOPY INSTRUCTIONS 1. Because there will be medication in your system for the next 24 hours, you may feel a little sleepy. Your coordination will be affected. Therefore: a. Do not drive or operate dangerous equipment for 24 hours. b. Do not drink alcohol beverages for 24 hours (not even beer). c. Plan to go home and rest for the day. 2. Generally there are no restrictions on your activity after a day or so has gone by, but you may feel a bit fatigued for a few days. 3 After you arrive home you may have a light meal and return to a normal diet as you can tolerate it without feeling sick to your stomach. 4. After surgery, you may feel pain or discomfort. This should be only transient, but if it persists please contact your doctor. 5. If there are any questions regarding the findings of your procedure, please feel free to contact your doctor. 6. If you are unable to contact your doctor with a problem, contact the hospital at [phone]. 7. Continue all your regular medications unless directed otherwise. I understand the above instructions and have no questions. Signature of Patient or Responsible Adult Escort Date/Time Name of Responsible Adult Escort Signature of Nurse Date/Time Activity:: No lifting over 20 pounds or strenuous activity x24 hours Diet:: Small light meals x24 hours Discharge Orders Discharge Orders: Discharge Order (Routine); Ordered 10/30/20 Ordered By: Krystin Coe DS: Diagnosis Discharge Diagnosis (1) Obesity (BMI 35.0-39.9 without comorbidity): Status: Acute (2) SOB (shortness of breath): Status: Acute (3) Anastomotic stricture of gastrojejunostomy: Status: Acute (4) Shortness of breath at rest: Status: Acute (5) Anastomotic stricture of gastrojejunostomy: Status: Acute (6) Diabetes mellitus type II, uncontrolled: Status: Chronic (7) Liver cirrhosis secondary to nonalcoholic steatohepatitis (HERR): Status: Acute (8) Alcoholic cirrhosis of liver without ascites: Status: Chronic (9) Non-insulin dependent type 2 diabetes mellitus: Status: Acute
[2020-10-30 10:43] VITALS: BP 106/74; PULSE 68; RESP 16; TEMP 36.6; O2SAT 96
== END 2020-10-30 11:05 | disposition home or self-care (01) ==
PROVIDERS: PCP Family Medicine; Visit Provider Surgery
PROC: (CPT 45380; principal; 2020-10-30 08:15)
DX: Z12.11 Encounter for screening for malignant neoplasm of colon (principal); K57.30 Diverticulosis of large intestine without perforation or abscess without bleeding; K21.00 Gastro-esophageal reflux disease with esophagitis, without bleeding; K64.0 First degree hemorrhoids; Z86.010 Personal history of colon polyps; K31.89 Other diseases of stomach and duodenum; K91.89 Other postprocedural complications and disorders of digestive system; Z98.84 Bariatric surgery status
CPT/HCPCS: 45380; 43239; 88305; 99221; 88302; J2001; J2704

== ENCOUNTER 2020-11-04 10:12 | Emergency (ER) | payer MEDICARE, OTHER, SELFPAY ==
[2020-11-04 10:16] VITALS: BP 117/74; PULSE 111; RESP 20; TEMP 36.7; O2SAT 96
--- NOTE | 2020-11-04 10:30 | ED.GENADUL_ITS ---
Discharge Plan Disposition Patient Disposition: HOME Condition: Stable Discharge Details Clinical Impression: Cellulitis of foot, right Primary Care Provider: Yung Horn ED Provider: Patricia Alexis Home Meds and New Rx's Prescriptions: New cephalexin 500 mg capsule 500 mg PO BID 10 Days Qty: 20 RF: 0 Continued albuterol sulfate 90 mcg/actuation HFA aerosol inhaler 1 inh inhalation ONCE RF: 0 metformin [Glucophage] 1,000 MG tablet 1,000 mg PO BID RF: 0 aspirin 81 MG tablet,delayed release (DR/EC) 81 mg PO DAILY RF: 0 tamsulosin [Flomax] 0.4 mg capsule 0.4 mg PO HS RF: 0 Trulicity 0.75 mg/0.5 mL pen injector 0.75 mg SUBCUT QWEEK RF: 0 glipizide 10 mg tablet extended release 24hr 20 mg PO DAILY RF: 0 lisinopril 20 mg tablet 20 mg PO DAILY RF: 0 gabapentin 800 mg tablet 800 mg PO TID RF: 0 pantoprazole 40 mg tablet,delayed release (DR/EC) 40 mg PO BID RF: 0 ferrous sulfate [iron] 325 mg (65 mg iron) Tablet 325 mg PO DAILY RF: 0 cholecalciferol (vitamin D3) [Vitamin D3] 50 mcg (2,000 unit) Capsule 50 mcg PO DAILY RF: 0 venlafaxine 225 mg tablet extended release 24hr 225 mg PO DAILY RF: 0 Discharge Instructions Instructions: Cellulitis (ED) Additional Instructions: Follow up with primary care provider in 3-5 days. Return to ED sooner if any wo rsening or concerns. Increase oral fluids. Please take Tylenol with food every 4-6 hours as needed for pain and swelling. When not up and moving around keep extremity elevated with ice. Return for any worsening redness worsening swelling, fever or any concerns. Referrals: Yung Horn [Primary Care Provider] - Medical Decision Making 64-year-old male presents to the ER chief complaint of right foot pain, swelling and mild erythema which he noticed worsening over the last week. He does also endorse chills last night. No reported fever. Patient was seen approximately 11 days ago in the ER after a fall with right shoulder and rib pain. No reinjury or known injury to the foot since then. reports that she has been elevating it applying ice and compression. Patient has a history of alcoholic cirrhosis, type II hypertension hyperlipidemia, GERD. He has been taking gabapentin and Tylenol with codeine for pain. He did take that this morning along with his normal a.m. meds. He denies any nausea vomiting diarrhea no problems urinating. Labs show no leukocytosis no elevated white blood cell count, lactate 2.5, CMP is largely within normal limits glucose was 244 magnesium is 1.5 Patient received 1 L normal saline on department 1 g magnesium sulfate given IV piggyback. EXAM: XR ANKLE RT COMPLETE CLINICAL HISTORY: Pain, swelling R/O fracture. TECHNIQUE: 2D digital imaging was performed. COMPARISON: No exams were available for comparison FINDINGS: There is no evidence of fracture or widening of the mortise. Talar dome appears unremarkable. No degenerative changes nor erosions. No tarsal coalition. Calcifications noted in the plantar fascia. Vascular calcification is noted in both the anterior and posterior tibial arteries and extending into the plantar arteries as well as into the dorsalis pedis vessel. IMPRESSION: No fracture evident. CLINICAL HISTORY: Pain, swelling, slight erythema, r/o fracture. TECHNIQUE: 2D digital imaging was performed. COMPARISON: No exams were available for comparison FINDINGS: There is evidence of prior probable shaving of the medial aspect the head of the great toe metatarsal and there is a vertically orientated K-wire in the head- neck of the great toe metatarsal. There is no evidence of acute fracture or diastasis of the Lisfranc joint. Vascular calcification is noted distally in the foot. There is no radiographic evidence of osteomyelitis. Some calcification is noted in the plantar fascia. At this time I do suspect possible cellulitis located 1 g ceftriaxone IV piggyback here in department and give patient a walking boot. We will place patient on cephalexin 500 mg twice daily x10 days. Discuss strict return instructions and follow-up with primary care, verbalized understanding. HPI General Mode of arrival: ambulatory (Using walker with limp) . Date/Time Provider Initiated Documentation: 11/04/20 10:13 . Limitations to Documentation: no limitations . Information obtained by: patient and family () . HPI Narrative: 64-year-old male presents to the ER chief complaint of right foot pain, swelling and mild erythema which he noticed worsening over the last week. He does also endorse chills last night. No reported fever. Patient was seen approximately 11 days ago in the ER after a fall with right shoulder and rib pain. No reinjury or known injury to the foot since then. reports that she has been elevating it applying ice and compression. Patient has a history of alcoholic cirrhosis, type II hypertension hyperlipidemia, GERD. He has been taking gabapentin and Tylenol with codeine for pain. He did take that this morning along with his normal a.m. meds. He denies any nausea vomiting diarrhea no problems urinating. Related Data Home Medications Medication Instructions Recorded Confirmed aspirin 81 mg PO DAILY 05/26/17 11/04/20 metformin [Glucophage] 1,000 mg PO BID 11/27/17 11/04/20 Trulicity 0.75 mg SUBCUT QWEEK 07/01/20 11/04/20 tamsulosin [Flomax] 0.4 mg PO HS 07/01/20 11/04/20 cholecalciferol (vitamin D3) 50 mcg PO DAILY 07/02/20 11/04/20 [Vitamin D3] ferrous sulfate [iron] 325 mg PO DAILY 07/02/20 11/04/20 gabapentin 800 mg PO TID 07/02/20 11/04/20 glipizide 20 mg PO DAILY 07/02/20 11/04/20 lisinopril 20 mg PO DAILY 07/02/20 11/04/20 pantoprazole 40 mg PO BID 07/02/20 11/04/20 venlafaxine 225 mg PO DAILY 07/02/20 11/04/20 albuterol sulfate 90 mcg/actuation 1 inh INHALATION ONCE 09/18/20 11/04/20 aerosol inhaler cephalexin 500 mg PO BID 10 Days #20 cap 11/04/20 Previous Rx's Medication Instructions Recorded cephalexin 500 mg PO BID 10 Days #20 cap 11/04/20 Allergies Allergy/AdvReac Type Severity Reaction Status Date / Time adhesive Allergy Intermediate blisters Unverified 11/04/20 10:19 General Stated Complaint: Cellulitis NASIMA: 3 Review of Systems Narrative: Constitutional: Negative for weight loss, alert and oriented, well groomed, normal body habitus, appears comfortable. Reports chills last night. HEENT: Denies trauma, headaches, blurry vision, nasal discharge, sore throat, trouble swallowing. Chest: Denies chest pain, palpitations, irregular rhythm, hypertension. Respiratory: Denies Shortness of breath, cough, hemoptysis. GI: Denies abdominal pain, nausea, vomiting, diarrhea, constipation. : Denies dysuria, hematuria, flank pain, rectal bleeding. Musculoskeletal: Right foot swelling, tenderness and erythema Neuro: Denies dizziness, blurry vision, weakness, syncope, headache or facial numbness. Hematologic: Denies easy bruising, intolerance to heat or cold, hair loss. 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/14) Alcoholic cirrhosis of liver without ascites Anxiety (07/16/14) Benign neoplasm of colon (08/15/11) BPH (benign prostatic hyperplasia) Degenerative cervical spinal stenosis (12/23/14) Depression (07/16/14) Diabetes mellitus type II, uncontrolled Elevated bilirubin Erectile dysfunction (06/19/14) Gallbladder sludge GERD (gastroesophageal reflux disease) Hyperlipidemia (05/16/13) Hypertension Liver cirrhosis secondary to nonalcoholic steatohepatitis (HERR) Non-insulin dependent type 2 diabetes mellitus Obesity (BMI 35.0-39.9 without comorbidity) Sensorineural hearing loss, bilateral (01/06/17) Surgical History bunionectomy (07/18/14) Left Dr Márquez H/O gastric bypass Repair of inguinal hernia Repair, ACL Rotator Cuff Repair S/P gastric bypass Family History Mother Alzheimer disease Social History Smoking/Tobacco Use Status: Former Tobacco Use Quit Date: 07/10/85 Smoking risk assessment performed?: Yes Alcohol Intake: former Substance use type: does not use Do you feel safe at home: Yes Exam Narrative Exam Narrative: Constitutional: Alert and oriented x3. Appears stated age. Normal body habitus. Head: Normocephalic, no trauma. Eyes: Pupils PERRLA, Eyelids symmetrical without lesions, discharge, or swelling. Chest: RRR, Normal S1, S2, distal pulses intact. Resp: Lungs clear to auscultation bilaterally, no wheezes, rales, or rhonchi. Musculoskeletal: Ambulatory with a limp using a walker in department, 5/5 strength to all four extremities. Right foot somewhat swollen compared to left, does have some erythema between the great toe and second toe, questionable red streak to the dorsal aspect of the foot. Does have some erythema and tenderness to the lateral foot. No calf pain no popliteal tenderness. Skin: Capillary refill less than 2 sec. Neurologic: Cranial nerves II-XII intact. Alert and oriented x 3. DTR's intact. Hematologic/Lymphatic: No ecchymosis, no lymphadenopathy. Extrem Ankle/foot/toe images: 1. Mild erythema 2. Tenderness and erythema Course Vital Signs Vital signs: Vital Signs Temperature 36.7 C 11/04/20 10:16 Pulse 111 H 11/04/20 10:16 Respiratory Rate 20 11/04/20 10:16 Blood Pressure 117/74 11/04/20 10:16 Pulse Oximetry 96 11/04/20 10:16 Temperature 36.7 C 11/04/20 10:16 Temperature Source Skin 11/04/20 10:16 Pulse 111 H 11/04/20 10:16 Respiratory Rate 20 11/04/20 10:16 Respiratory Effort 11/04/20 10:24 Blood Pressure 117/74 11/04/20 10:16 Blood Pressure Position Sitting 11/04/20 10:16 Pulse Oximetry 96 11/04/20 10:16 Oxygen Delivery Method Room Air 11/04/20 10:16 Oxygen Flow Rate 0 11/04/20 10:16 Pain Level 6 11/04/20 10:16
[2020-11-04 11:12] LABS: Abs Immature Grans 0.03 10^3/uL (0.0-0.06); Absolute Basophil Count 0.01 10^3/uL (0.0-0.2); Absolute Eosinophil Count 0.15 10^3/uL (0.0-0.7); Absolute Lymphocyte Count 1.49 10^3/uL (1.2-3.4); Absolute Monocyte Count 0.51 10^3/uL (0.1-0.8); Absolute Neutrophil Count 4.66 10^3/uL (1.2-6.7); Basophils % 0.1; Eosinophils % 2.2; HCT 39.7 % (40.0-50.0); HGB 13.5 g/dL (13.5-17.5); Immature Grans % 0.4; Lactate 2.5 mmol/L (0.6-1.4); Lymphocytes % 21.8; MCH 30.1 pg (27.0-33.0); MCV 88.4 fL (80-95); MPV 10.6 fL (8.0-11.0); Monocytes % 7.4; Neutrophils % 68.1; Nucleated RBC 0 %; Platelet Count 186 10^3/uL (130-400); RBC 4.49 10^6/uL (4.36-5.78); RDW 12.4 % (11.8-14.1); RDW-SD 40.7 fL; WBC 6.85 10^3/uL (4.4-10.8)
[2020-11-04] MEDS: Normal Saline 1,000 ML 1000 ML IV (11:22)
[2020-11-04 11:26] LABS: ALT 41 U/L (16-63); AST 18 U/L (15-37); Albumin 3.7 g/dL (3.4-5.0); Alkaline Phosphatase 82 U/L (46-116); Anion Gap 9.9 mmol/L (3-11); BUN 18 mg/dL (7-18); Bilirubin, Total 0.4 mg/dL (0.2-1.0); CO2 25.1 mmol/L (21.0-32.0); CREATININE 1.3 mg/dL (0.70-1.30); Calcium 9.2 mg/dL (8.5-10.1); Chloride 101 mmol/L (98-107); Estimated GFR 55.75 (mL/min/1.73m2); Glucose 244 mg/dL (74-106); Magnesium 1.5 mg/dL (1.8-2.4); Potassium 4.6 mmol/L (3.5-5.1); Sodium 136 mmol/L (136-145); Total Protein 7.4 g/dL (6.4-8.2)
--- NOTE | 2020-11-04 12:18 | DI.RAD_ITS ---
EXAM: XR ANKLE RT COMPLETE CLINICAL HISTORY: Pain, swelling R/O fracture. TECHNIQUE: 2D digital imaging was performed. COMPARISON: No exams were available for comparison FINDINGS: There is no evidence of fracture or widening of the mortise. Talar dome appears unremarkable. No de generative changes nor erosions. No tarsal coalition. Calcifications noted in the plantar fascia. Vascular calcification is noted in both the anterior and posterior tibial arteries and extending into the plantar arteries as well as into the dorsalis pedis vessel. IMPRESSION: No fracture evident. DATA REPOSITORY: RADIATION DOSE DELIVERED:
--- NOTE | 2020-11-04 12:18 | DI.RAD_ITS ---
EXAM: XR FOOT RT COMPLETE CLINICAL HISTORY: Pain, swelling, slight erythema, r/o fracture. TECHNIQUE: 2D digital imaging was performed. COMPARISON: No exams were available for comparison FINDINGS: There is evidence of prior probable shaving of the medial aspect the head of the great toe metatarsal and there is a vertically orientated K-wire in the head-neck of the great toe metatarsal. There is no evidence of acute fracture or diastasis of the Lisfranc joint. Vascular calcification is noted distally in the foot. There is no radiographic evidence of osteomyelitis. Some calcification is noted in the plantar fascia. IMPRESSION: DATA REPOSITORY: RADIATION DOSE DELIVERED:
[2020-11-04] MEDS: MAGNESIUM SULFATE 1 GM/100 ML BAG IVPB (12:21)
[2020-11-04] MEDS: cefTRIAXone 1 GM/50 ML BAG IVPB (13:20)
== END 2020-11-04 14:03 | disposition home or self-care (01) ==
PROVIDERS: Emergency Provider Registered Nurse Emergency; PCP Family Medicine
DX: L03.115 Cellulitis of right lower limb (principal)
CPT/HCPCS: 80053; 87040; 96361; 96365; 96375; 99284; 73610; 73630; 83605; 83735; 85025; 99283; J0696; J3475

== ENCOUNTER 2020-11-06 03:03 | Outpatient (CLI) | payer MEDICARE, OTHER, SELFPAY ==
--- NOTE | 2020-11-06 07:00 | DI.NM_ITS ---
Exam(s) MS HEPATOBILIARY CCK GRP EXAM: MS HEPATOBILIARY CCK GRP CLINICAL HISTORY: RUQ pain and bloating,GB SLUDGE,OBESITY,CIRRHOSIS,K82.8. TECHNIQUE: Injected dose: 5.2 mCi Tc-99 mebrofenin Initial dynamic images: 60 minutes Post-Gallbladder fillin.7 mcg CCK infusion according to protocol. Addition images: According to protocol. COMPARISON: [facility] MPI RESTING AND STRESS from 11/11/2016 FINDINGS: Normal hepatic transit time. Prompt excretion into the small bowel. Prompt excretion into the gallbladder. The gallbladder ejection fraction was calculated at 30 percen t. This is below normal. (Normal [facility] CCK gallbladder ejection fraction is greater than 40 percent. ) IMPRESSION: 1. Decreased gallbladder ejection fraction which can be seen with gallbladder dysfunction/dyskinesia. Gallbladder ejection fraction <35% has a good correlation with acalculous disease (i.e., chronic acal culous cholecystitis, cystic duct syndrome, sphincter of Oddi disease).
== END 2020-11-06 03:23 ==
PROVIDERS: PCP Family Medicine; Visit Provider Surgery
DX: R10.11 Right upper quadrant pain (principal); R14.0 Abdominal distension (gaseous); K82.8 Other specified diseases of gallbladder; K75.81 Nonalcoholic steatohepatitis (NASH); Z98.84 Bariatric surgery status
CPT/HCPCS: 78227

== ENCOUNTER 2020-11-12 18:36 | Observation (INO) | payer MEDICARE, OTHER, SELFPAY ==
[2020-11-12 18:48] VITALS: BP 122/73; PULSE 85; RESP 16; TEMP 36.4; O2SAT 96
--- NOTE | 2020-11-12 19:03 | W.ED.GENAD ---
Discharge Plan Disposition Patient Disposition: [facility] INPATIENT Condition: Stable Discharge Details Clinical Impression: Foot pain, right Primary Care Provider: Yung Horn ED Provider: Robert Apple Home Meds and New Rx's Prescriptions: No Action albuterol sulfate 90 mcg/actuation HFA aerosol inhaler 1 inh inhalation ONCE RF: 0 metformin [Glucophage] 1,000 MG tablet 1,000 mg PO BID RF: 0 cephalexin 500 mg capsule 500 mg PO TID RF: 0 aspirin 81 MG tablet,delayed release (DR/EC) 81 mg PO DAILY RF: 0 tamsulosin [Flomax] 0.4 mg capsule 0.4 mg PO HS RF: 0 Trulicity 0.75 mg/0.5 mL pen injector 0.75 mg SUBCUT QWEEK RF: 0 glipizide 10 mg tablet extended release 24hr 20 mg PO BID RF: 0 lisinopril 20 mg tablet 20 mg PO DAILY RF: 0 gabapentin 800 mg tablet 800 mg PO TID RF: 0 pantoprazole 40 mg tablet,delayed release (DR/EC) 40 mg PO BID RF: 0 ferrous sulfate [iron] 325 mg (65 mg iron) Tablet 325 mg PO DAILY RF: 0 cholecalciferol (vitamin D3) [Vitamin D3] 50 mcg (2,000 unit) Capsule 50 mcg PO DAILY RF: 0 venlafaxine 225 mg tablet extended release 24hr 225 mg PO DAILY RF: 0 Medical Decision Making 64-year-old male diabetic with 3 weeks of foot pain. He feels like he injured his right foot when he was throwing while using a gas auger. He did not directly injure the foot. Was evaluated emergency department on November 04, had an unremarkable x-ray and was placed on Keflex for suspicion of cellulitis. Patient has been taking the medication but has had persistent pain despite wearing a walking boot. Is worse with weightbearing and he now feels he is unable to walk despite a walking boot and a walker at. He has not noted a fever. He does have a distant history of gout. Mr. Betancur is afebrile with a pulse of 85, normal blood pressure. There is right lateral foot mild swelling and erythema. Differential diagnosis includes contusion, strain, underlying fracture, osteomyelitis, gout. Patient had IV access established, screening laboratories obtained, referred for repeat x-ray and given parenteral analgesia. Labs with CRP 1.69, uric acid 7.2, white blood cell 6. X-ray: Postsurgical changes consistent with bunionectomy, vascular calcifications, no other acute findings. Patient seen by Dr Horn in the ED. as the patient has persistent pain despite outpatient antibiotics, immobilization, & partial weightbearing, we will proceed with an observation admission. HPI General Mode of arrival: ambulatory. Date/Time Provider Initiated Documentation: 11/12/20 18:40. Limitations to Documentation: no limitations. Information obtained by: patient. History of Present Illness 64 year old M presents to the emergency department with the chief complaint of Right lateral foot pain for 3wk, described as moderate, Quality is described as dull and constant, and is localized to the right and lower extremity. Patient reports no radiation. Patient started experiencing this week(s) Rest improves symptom(s), Other factors that worsen symptoms (Weightbearing) . Patient notes denies fever/chills. Patient did receive the following treatments prior to arrival, other (Tylenol) Related Data Home Medications Medication Instructions Recorded Confirmed aspirin 81 mg PO DAILY 05/26/17 11/12/20 metformin [Glucophage] 1,000 mg PO BID 11/27/17 11/12/20 Trulicity 0.75 mg SUBCUT QWEEK 07/01/20 11/12/20 tamsulosin [Flomax] 0.4 mg PO HS 07/01/20 11/12/20 cholecalciferol (vitamin D3) 50 mcg PO DAILY 07/02/20 11/12/20 [Vitamin D3] ferrous sulfate [iron] 325 mg PO DAILY 07/02/20 11/12/20 gabapentin 800 mg PO TID 07/02/20 11/12/20 glipizide 20 mg PO BID 07/02/20 11/12/20 lisinopril 20 mg PO DAILY 07/02/20 11/12/20 pantoprazole 40 mg PO BID 07/02/20 11/12/20 venlafaxine 225 mg PO DAILY 07/02/20 11/12/20 albuterol sulfate 90 mcg/actuation 1 inh INHALATION ONCE 09/18/20 11/12/20 aerosol inhaler cephalexin 500 mg PO TID 11/12/20 11/12/20 Allergies Allergy/AdvReac Type Severity Reaction Status Date / Time adhesive Allergy Intermediate blisters Unverified 11/12/20 18:54 General Stated Complaint: Orthopedic NASIMA: 4 Review of Systems Narrative: No fever or chills. Previous history of gout. No direct injury to the foot. Has been taking Keflex. 6 systems reviewed and otherwise negative [facility] Medical History Abnormality of penis (11/18/14) Alcoholic cirrhosis of liver without ascites Anxiety (07/16/14) Benign neoplasm of colon (08/15/11) BPH (benign prostatic hyperplasia) Degenerative cervical spinal stenosis (12/23/14) Depression (07/16/14) Diabetes mellitus type II, uncontrolled Elevated bilirubin Erectile dysfunction (06/19/14) Gallbladder sludge GERD (gastroesophageal reflux disease) Hyperlipidemia (05/16/13) Hypertension Liver cirrhosis secondary to nonalcoholic steatohepatitis (HERR) Non-insulin dependent type 2 diabetes mellitus Obesity (BMI 35.0-39.9 without comorbidity) Sensorineural hearing loss, bilateral (01/06/17) Surgical History (Updated 11/09/20 @ 13:20 by Luz Trevino RN) bunionectomy (07/18/14) Left Dr Márquez H/O gastric bypass History of colonoscopy (~10/30/20) History of esophagogastroduodenoscopy (EGD) (~10/30/20) Repair of inguinal hernia Repair, ACL Rotator Cuff Repair S/P gastric bypass Family History Mother Alzheimer disease Social History Smoking/Tobacco Use Status: Former Tobacco Use Quit Date: 07/10/85 Smoking risk assessment performed?: Yes Alcohol Intake: former Substance use type: does not use Do you feel safe at home: Yes Exam Narrative Exam Narrative: GEN: awake, alert, oriented 3. Pleasant, well groomed, interactive. HEAD: Normocephalic, atraumatic ENT: Mucous membranes moist, oropharynx unremarkable, External ear exam unremarkable EYES: PERRL, EOMI NECK: Full ROM, no SHANIA, no menigismus CHEST/RESP: No respiratory EXT: Full ROM, right foot slightly edematous, right lateral foot with mild erythema and tenderness present Neuro: Grossly normal neurologic exam, conversant, interactive. Psych: Speech fluent, thoughts congruent, affect normal Course Vital Signs Vital signs: Vital Signs Temperature 36.4 C L 11/12/20 18:48 Pulse 85 11/12/20 18:48 Respiratory Rate 16 11/12/20 18:48 Blood Pressure 122/73 11/12/20 18:48 Pulse Oximetry 96 11/12/20 18:48 Temperature 36.4 C L 11/12/20 18:48 Temperature Source Skin 11/12/20 18:48 Pulse 85 11/12/20 18:48 Respiratory Rate 16 11/12/20 18:48 Respiratory Effort 11/12/20 18:48 Blood Pressure 122/73 11/12/20 18:48 Blood Pressure Position Sitting 11/12/20 18:48 Pulse Oximetry 96 11/12/20 18:48 Oxygen Delivery Method Room Air 11/12/20 18:48 Oxygen Flow Rate 0 11/12/20 18:48 Pain Level 6 11/12/20 18:48
[2020-11-12] MEDS: HYDROmorphone 2 MG/ML VIAL 1 MG IVP (19:19)
[2020-11-12 19:34] LABS: Anion Gap 7.8 mmol/L (3-11); BUN 16 mg/dL (7-18); C-Reactive Protein 1.69 mg/dL (0.0-0.3); CO2 28.2 mmol/L (21.0-32.0); CREATININE 1.3 mg/dL (0.70-1.30); Calcium 9.1 mg/dL (8.5-10.1); Chloride 101 mmol/L (98-107); Estimated GFR 55.75 (mL/min/1.73m2); Glucose 234 mg/dL (74-106); Sodium 137 mmol/L (136-145); Uric Acid 7.2 mg/dL (3.5-7.2)
[2020-11-12 19:40] LABS: Abs Immature Grans 0.03 10^3/uL (0.0-0.06); Absolute Basophil Count 0.02 10^3/uL (0.0-0.2); Absolute Eosinophil Count 0.15 10^3/uL (0.0-0.7); Absolute Lymphocyte Count 1.71 10^3/uL (1.2-3.4); Absolute Neutrophil Count 3.85 10^3/uL (1.2-6.7); Basophils % 0.3; Eosinophils % 2.4; HCT 40.2 % (40.0-50.0); HGB 13.5 g/dL (13.5-17.5); Immature Grans % 0.5; Lymphocytes % 26.9; MCH 29.8 pg (27.0-33.0); MCHC 33.6 % (32.0-36.0); MCV 88.7 fL (80-95); MPV 10.3 fL (8.0-11.0); Monocytes % 9.4; Neutrophils % 60.5; Nucleated RBC 0 %; Platelet Count 184 10^3/uL (130-400); RBC 4.53 10^6/uL (4.36-5.78); RDW 12.3 % (11.8-14.1); RDW-SD 39.9 fL; WBC 6.36 10^3/uL (4.4-10.8)
--- NOTE | 2020-11-12 20:15 | DI.RAD_ITS ---
Exam(s) XR FOOT RT COMPLETE EXAM: XR FOOT RT COMPLETE CLINICAL HISTORY: lateral foot pain. TECHNIQUE: 2D digital imaging was performed. COMPARISON: CR XR FOOT RT COMPLETE from 11/04/2020 FINDINGS: BONES: No acute fracture is present. No bony destructive lesion is seen. JOINTS: No dislocation present. Postsurgical changes of a prior bunionectomy. Degenerative changes of the 1st MTP joint. SOFT TISSUE: Atherosclerosis. IMPRESSION: No acute fracture or dislocation. DATA REPOSITORY: RADIATION DOSE DELIVERED:
--- NOTE | 2020-11-12 20:45 | DI.VRAD_ITS ---
PROCEDURE INFORMATION: Exam: XR Right Foot Exam date and time: 11/12/2020 8:10 PM Age: 64 years old Clinical indication: Other: Lateral foot pain TECHNIQUE: Imaging protocol: XR Right foot. Views: 3 or more views. COMPARISON: CR XR FOOT RT COMPLETE 11/04/2020 12:09 PM FINDINGS: Bones/joints: Postsurgical changes of the 1st metatarsal present consistent with bunionectomy. No acute fracture or dislocation is seen. Soft tissues: Evaluation of the soft tissues is remarkable for peripheral vascular calcifications. IMPRESSION: 1. Postsurgical changes consistent with bunionectomy. 2. Peripheral vascular calcifications, which are often associated with diabetes mellitus. Dictated and Authenticated by: Samir Hansen MD. Ordering:ELAINA Jones MD
[2020-11-12 22:14] LABS: Source Nasal/Nares
[2020-11-12] MEDS: HYDROmorphone 2 MG/ML VIAL 0.5 MG IVP (23:00)
[2020-11-12 23:14] VITALS: BP 122/73; PULSE 85; RESP 16; TEMP 36.4; O2SAT 96
[2020-11-12 23:19] VITALS: BP 128/79; PULSE 73; RESP 18; TEMP 36.4; O2SAT 95
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
[2020-11-12 23:44] LABS: COVID-19 PCR Negative (Negative)
--- NOTE | 2020-11-13 | DI.MRI_ITS ---
Exam(s) MR LOWER EXTREMITY RT WO/W EXAM: MR LOWER EXTREMITY RT WO/W CLINICAL HISTORY: Infection, high CRP, pain worsening right foot. TECHNIQUE: Multiplanar multisequence MRI Examination was performed. CONTRAST MATERIAL: IV Contrast: 20 mL of Dotarem contrast administered. COMPARISON: X-ray of the foot from 11/12/2020. FINDINGS: The examination is limited due to patient motion artifact. BONES/JOINTS: There is normal marrow signal. No marrow edema is present. There is artifact from the patient's prior surgery in the head of the 1st metatarsal. No findings to suggest osteomyelitis. N o joint space narrowing identified. No joint effusion identified. LIGAMENTS: Ligaments appear intact. MUSCULOTENDINOUS STRUCTURES: Visualized portion of the planar fascia is unremarkable. There is a smal l amount of fluid around the peroneus longus and brevis tendons. The anterior and medial ankle tendo ns appear intact. The visualized Achilles tendon is unremarkable. SOFT TISSUES: No focal fluid collection or or enhancing fluid collection is seen to suggest an absces s. Mild edema seen in the soft tissues of the foot laterally which may represent cellulitis. OTHER FINDINGS: None. IMPRESSION: 1. No MRI findings to suggest osteomyelitis. 2. Mild edema in the soft tissues laterally at the foot but no evidence of an abscess. 3. Mild fluid around the prone is longus and brevis tendons which may represent a tenosynovitis. DATA REPOSITORY:
[2020-11-13] MEDS: ceFAZolin 2 GM/50 ML BAG IVPB ×2 (00:51→08:21)
[2020-11-13] MEDS: Normal Saline Flush 10 ML SYR IVP ×4 (00:51→11:08)
[2020-11-13 01:15] VITALS: BP 128/79; PULSE 73; RESP 18; TEMP 36.4; O2SAT 95
[2020-11-13] MEDS: HYDROmorphone 2 MG/ML VIAL 1 MG IVP ×2 (04:42→11:09)
[2020-11-13 07:08] LABS: ALT 33 U/L (16-63); AST 18 U/L (15-37); Albumin 3.7 g/dL (3.4-5.0); Alkaline Phosphatase 80 U/L (46-116); Anion Gap 6.4 mmol/L (3-11); BUN 20 mg/dL (7-18); Bilirubin, Total 0.3 mg/dL (0.2-1.0); CO2 29.6 mmol/L (21.0-32.0); CREATININE 1.3 mg/dL (0.70-1.30); Calcium 8.9 mg/dL (8.5-10.1); Chloride 100 mmol/L (98-107); Estimated GFR 55.75 (mL/min/1.73m2); Glucose 212 mg/dL (74-106); Potassium 4.7 mmol/L (3.5-5.1); Sodium 136 mmol/L (136-145); Total Protein 7.4 g/dL (6.4-8.2)
[2020-11-13 07:12] LABS: Hemoglobin A1C 7.7 % (<5.7)
[2020-11-13 07:16] VITALS: BP 138/72; PULSE 80; RESP 19; TEMP 36.5; O2SAT 95
[2020-11-13] MEDS: Aspirin E.C. 81 MG TABEC PO (08:18)
[2020-11-13] MEDS: Cholecalciferol (Vitamin D3) 1,000 UNIT TAB 2000 UNITS PO (08:18)
[2020-11-13] MEDS: Gabapentin 800 MG TAB PO ×2 (08:19→14:19)
[2020-11-13] MEDS: Ferrous Sulfate 325 MG TAB PO (08:20)
[2020-11-13] MEDS: Pantoprazole 40 MG TABCR PO (08:20)
[2020-11-13] MEDS: Venlafaxine 37.5 MG CAPCR 75 MG PO (08:20)
[2020-11-13] MEDS: Lisinopril 20 MG TAB PO (08:20)
[2020-11-13] MEDS: Venlafaxine 150 MG CAPCR PO (08:20)
[2020-11-13] MEDS: Enoxaparin 40 MG/0.4 ML SYR SC (08:21)
[2020-11-13] MEDS: Insulin Aspart 300 UNITS/3 ML PEN SC ×2 (08:22→12:14)
--- NOTE | 2020-11-13 09:27 | INITIAL_ITS ---
- If Service Date Differs Date of service: 11/13/20 Time of Service: 09:27 Care Management Initial Assess REASON FOR HOSPITALIZATION:: Foot Pain PAST MEDICAL HISTORY/PAST SURGICAL HISTORY:: Abnormality of penis (11/18/14). Alcoholic cirrhosis of liver without ascites. Anxiety (07/16/14). Benign neoplasm of colon (08/15/11). BPH (benign prostatic hyperplasia). Degenerative cervical spinal stenosis (12/23/14). Depression (07/16/14). Diabetes mellitus type II, uncontrolled. Elevated bilirubin. Erectile dysfunction (06/19/14). Gallbladder sludge. GERD (gastroesophageal reflux disease). Hyperlipidemia (05/16/13). Hypertension. Liver cirrhosis secondary to nonalcoholic steatohepatitis (HERR). Non-insulin dependent type 2 diabetes mellitus. Obesity (BMI 35.0-39.9 without comorbidity). Sensorineural hearing loss, bilateral (01/06/17). bunionectomy (07/18/14). Left. Dr Márquez. H/O gastric bypass. History of colonoscopy (~10/30/20). History of esophagogastroduodenoscopy (EGD) (~10/30/20). Repair of inguinal hernia. Repair, ACL. Rotator Cuff Repair. S/P gastric bypass PREVIOUS FUNCTIONAL STATUS/SOCIAL/FAMILY SUPPORTS:: Yung resides in his own home with his spouse, he has a daughter that lives in [place]. He uses a CPAP and tries to be as active as he can, he enjoys hunting, snow mobiling and his sled dogs. He is independent and has no other services in the home. CURRENT FUNCTIONAL STATUS:: Yung is lying in the recliner, appearing comfortable and preparing for discharge. He reports no concerns at this time. Has patient been provided with info about the portal/API?: Yes Did the patient sign up for the portal?: No CODE STATUS:: Full Code INSURANCE COVERAGE / FINANCIAL ISSUES:: [place] [employer], Medicare CURRENT HOME/COMMUNITY SERVICES/EQUIPMENT:: CPAP through [facility] PRIMARY CARE PHYSICIAN:: Yung Horn POTENTIAL DISCHARGE NEEDS:: Follow up appointments. PATIENT/FAMILY EDUCATION NEEDS:: Review discharge instructions, discuss Ask Me Three. ANTICIPATED BARRIERS TO DISCHARGE:: None identified at this time. TRANSPORTATION:: Via private vehicle with his , Tahmina. PLAN:: Yung will return home when ready per MD. He will follow up with his PCP and plan of care as prescribed. He will transport via private vehicle with his , Tahmina.
[2020-11-13] MEDS: Gadoterate meglumine 20 ML VIAL IVP (10:32)
--- NOTE | 2020-11-13 11:30 | IN_ITS ---
Date of service: 11/13/20 Time of Service: 11:30 PT Notes Visit Reasons: Foot Pain Physical Therapy Inpatient Initial Evaluation Date: 11/13/2020 Referring Doctor: Yung Horn MD PT Orders: PT CONSULT: Safety consult for D/C. Fall safety assessment. Precautions: Fall. Standard. Activity as tolerated. Patient Profile/Admitting Diagnosis: Yung is a 64-year-old male who presented to the ED on 11/12/2020 with increase right foot pain since injury three weeks ago. He is diagnosed with R foot pain with scheduled MRI today day to rule out fracture/dislocation and or osteomyelitis. Patient also has diagnosis of hypertension, anastomotic stricture of gastrojejunostomy, liver cirrhosis, and NIDDM. PMHX: Medical History Abnormality of penis (11/18/14) Alcoholic cirrhosis of liver without ascites Anxiety (07/16/14) Benign neoplasm of colon (08/15/11) BPH (benign prostatic hyperplasia) Degenerative cervical spinal stenosis (12/23/14) Depression (07/16/14) Diabetes mellitus type II, uncontrolled Elevated bilirubin Erectile dysfunction (06/19/14) Gallbladder sludge GERD (gastroesophageal reflux disease) Hyperlipidemia (05/16/13) Hypertension Liver cirrhosis secondary to nonalcoholic steatohepatitis (HERR) Non-insulin dependent type 2 diabetes mellitus Obesity (BMI 35.0-39.9 without comorbidity) Sensorineural hearing loss, bilateral (01/06/17) Surgical History Bunionectomy (07/18/14) Left Dr Márquez H/O gastric bypass History of colonoscopy (~10/30/20) History of esophagogastroduodenoscopy (EGD) (~10/30/20) Repair of inguinal hernia Repair, ACL Rotator Cuff Repair S/P gastric bypass Social History/Home Situation: Lives with in a private home. Equipment Owned/DME: [facility] Subjective: I do not want to lose my foot. Patient is highly anxious about doing any weight bearing and undergoing mobility assessment until results of MRI testing is explained to him by MD. PT assured patient his sentiments are well understood. He was agreeable to trying out ankle range of motion but stopped when the foot started to hurt. Objective: General Observation: Low fracture boot on R foot. Mild swelling noted from inferior aspect of R lateral malleolus and along the lateral aspect of 5th metatarsal. A one centimeter red linear area is found on the dorsum of the 2nd metatarsal just proximal to the 4th MTP joint. No hematoma nor nor ny discoloration seen. Mental Status: Alert and oriented as to person, place, time, and purpose. Able to pay attention, focus, and respond appropriately. Pain: 5/10 in R and L ankle at rest ROM: Right Upper Extremity: Shoulder Flexion WFL. Shoulder abduction WFL. Shoulder ER/IR WFL. Elbow flexion WFL. Forearm pronation/supination WFL. Wrist flexion WFL. Opening and closing of hand WFL. Left Upper Extremity: Shoulder Flexion WFL. Shoulder abduction WFL. Shoulder ER/IR WFL. Elbow flexion WFL. Forearm pronation/supination WFL. Wrist flexion WFL. Opening and closing of hand WFL. Right Lower Extremity: Hip flexion WFL. Hip abduction WFL. Hip ER/IR WFL. Knee flexion WFL. Knee extension. Unable and unwilling to move ankle joint due to discomfort and anxiety over aggravating any potential injury he may have. Able to fully flex and extend toes. Left Lower Extremity: Hip flexion WFL. Hip abduction WFL. Hip ER/IR WFL. Knee flexion WFL. Knee extension. Unable and unwilling to move ankle joint due to discomfort and anxiety over aggravating any potential injury he may have. Able to partially flex and extend toes. Strength: Right Upper Extremity: Shoulder flexors 5/5. Shoulder abductors 5/5. Shoulder ER 5/5/ Shoulder IR 5/5. Forearm pronators 5/5. Forearm supinators 5/5. Elbow flexors 5/5. Elbow extensors 5/5. Aoc Operations Intelligence Officer strong. Left Upper Extremity: Shoulder flexors 5/5. Shoulder abductors 5/5. Shoulder ER 5/5/ Shoulder IR 5/5. Forearm pronators 5/5. Forearm supinators 5/5. Elbow flexors 5/5. Elbow extensors 5/5. Aoc Operations Intelligence Officer strong. Right Lower Extremity: Hip flexors 5/5. Hip abductors 5/5. Hip external rotators 5/5. Hip internal rotators 5/5. Knee flexors 5/5. Knee extensors 5/5. Ankle dorsiflexors/evertors 2-/5. Ankle plantarflexors/invertors 2-/5. Left Lower Extremity: Hip flexors 5/5. Hip abductors 5/5. Hip external rotators 5/5. HIp internal rotators 5/5. Knee flexors 5/5. Knee extensors 5/5. Ankle dorsiflexors/evertors 2-/5. Ankle plantarflexors/invertors 2-/5. Bed Mobility/Transfers: Sit to stand refused to stand up until after result of MRI is received Stand to sit refused to stand up until after result of MRI is received Bed to bedside commode refused to stand up until after result of MRI is received Bedside commode to bed refused to stand up until after result of MRI is received Bed to chair refused to stand up until after result of MRI is received Chair to bed refused to stand up until after result of MRI is received Gait: refused to stand up until after result of MRI is received Balance: Static Sitting: Normal Dynamic Sitting: Normal Static Standing: Unable to test Dynamic Standing: Unable to test Special Tests: Mobility Limitations Standardized Measure [facility] 6 clicks Basic Mobility Inpatient Short Form: Raw Score: Unable to complete CMS Score: 77% deficit Informed Consent/Education: Patient instructed in purpose of PT consult and plan of care. Agreeable to proceed with established PT POC to achieve personal goals. Assessment: Patient is scheduled to have MRI of R foot and would like to wait for the results before participating in mobility assessment. Pain is present at rest at 5/10. No active signs of infection or inflammation seen except for a minimal swelling along the lateral aspect of the R foot. Will come back in the afternoon after MRI result rules out fracture/dislocation. Patient presents with clinical signs and symptoms consistent with current/admitting diagnoses that have resulted to mobility limitations, gait instability, generalized weakness, and impairment of motor control as demonstrated by the following impairment level findings: 1. Decreased strength to B ankle major muscle groups 2. Impaired sitting/standing balance 3. Impaired activity tolerance 4. Limitation of joint range of motion in R ankle Impairments are contributing to the following functional limitations: 1. Dependent bed mobility skills 2. Increased dependence with transfers 3. Inability to ambulate 4. Increase completion time for mobility ADL performance 5. Increased fall risk 6. Inability to negotiate steps alone safely Patient is assessed as a 13014 complexity based on the following: History: 64-year-old male with past medical history as indicated above Examination: Demonstrable impairment in strength, balance, and mobility level with underlying impairments and functional limitations as exhibited above as well as deficit score of 77% utilizing the [facility] Mobility Inpatient Short Form Presentation: Evolving Decision Makin moderate complexity Goals: Goals X1 week 1. Supine-Sit independent 2. Sit-Supine independent 3. Sit-Stand independent 4. Stand-Sit independent 5. Bed-Chair independent 6. Chair-Bed independent 7. Independent gait on level surface with use of FWW for at least 100 feet without report of pain nor dyspnea 8. Independent stair negotiation while holding onto B rails for at least 5 steps without report of pain nor dyspnea 9. Independent with home exercise program 10. Good static and dynamic standing balance/tolerance Plan of Care/Treatment Plan: 1-2x/day, 7 days/week x 1 week. Plan of care has been reviewed with the OXYGRAPH OPERATOR providing the service under Physical Therapy direction. Initiate Physical Therapy intervention for strengthening, bed mobility, transfers, gait, stairs, balance training, and use of assistive device. DISCHARGE RECOMMENDATIONS: Patient will benefit from home health PT services in order to progress mobility level using least restrictive assistive ambulatory device, assess home safety, identify additional equipment needs, and establish a functional maintenance program that will increase ability of patient to remain at home. TREATMENT CODE/TIME: 36497 x28 minutes beginning at 12:55 PM. Thank you for the opportunity to participate in the care of this patient. Gabriela Yee PT, DPT, CLT [facility] [place], [place]
--- NOTE | 2020-11-13 13:55 | W.INDIABCONS ---
Date of service: 11/13/20 Time of Service: 13:55 Diabetes Inpatient Consult DESCRIPTION/ASSESSMENT: Unable to meet with Yung today, asleep when visited. Yung admitted with foot pain with long standing history of Dm2, HTN, HLD, s/p gastric bypass surgery in 2009. Dm meds include 20 mg glipizide, 1000 mg metformin BID, 0.75 mg Trucility per week. Most recent A1C 7.7%, down from 8.2% in 2019. Weight stable > 1 year, BMI indicates class 2 obesity. Current Dm medication regime appears adequate for glycemic control. Following diabetic diet with adequate intake to meet nutrient and fluid needs. Not considered at nutritional risk. PLAN: Will follow up with patient and offer education if desired. will follow wt, po intake, labs. Time Spent in Nutritional Counseling and Treatment: 0
--- NOTE | 2020-11-13 13:55 | W.PM.DS.N ---
Date of service: 11/13/20 Time of Service: 13:56 DS: Diagnosis Discharge Diagnosis (1) Foot pain, right: Status: Acute (2) Hypertension: Status: Acute (3) Anastomotic stricture of gastrojejunostomy: Status: Acute (4) Liver cirrhosis secondary to nonalcoholic steatohepatitis (HERR): Status: Acute (5) Non-insulin dependent type 2 diabetes mellitus: Status: Acute (6) DVT prophylaxis: Status: Acute (7) Discharge planning issues: Status: Acute Discharge Plan Disposition Patient Disposition: HOME Condition: Stable Discharge Details Reason For Visit: Foot Pain, tendonitis Admit Date/Time: 11/12/20 21:55 Admit Provider: Yung Horn Attending Provider: Yung Horn Primary Care Provider: Yung Horn Hospital Course Hospital Course: Foot pain Narrative: 64 yo M with history of type 2 DM, obesity s/p gastric bypass, and compensated cirrhosis,of the liver who is presenting with progressive right lateral foot pain despite treatment for presumed cellulitis for the past week. He and report he first injured his foot over a month ago when he dropped a picture frame on his right foot. He had cut at that timed that has closed but not healed. 1-2 weeks after that inition minor injury, he was using elctric drill with auger to dig a post whole and hit a rock and was throat back and hurt his right shoulder and and this same right footl. Pain is mild at rests, but severe when area touched lightly or when he tries to walk on it even with walker and boot. Pain makes it hard to sleep despite gabapentin. His has to work tomorrow and he doesn't feel safe going home. He has been taking cephalexin BID since he was evaluated in the ED 11/04, but without improvement, in fact pain and swelling getting worse. Pain burning and shooting on lateral right foot and around ankle bones. Cefazolin initiated then stopped at time of discharge after MRI findings; inflammatory changes along the peroneous brevis and longus tendons. Voltaren gel initiated. He was directed to purchase the generic diclofenac gel OTC if his insurance doesn't cover the brand or generic. He had been intermittently wearing an immobilizer boot. He endorsed that it compressed the tender area and seemed to cause more pain. He may stop wearing it. PCP f/u in 1-2 weeks. Home Meds and New Rx's Prescriptions: New diclofenac sodium [Voltaren Arthritis Pain] 1 % gel 2 g topical QID Qty: 50 RF: 0 Continued albuterol sulfate 90 mcg/actuation HFA aerosol inhaler 1 inh inhalation ONCE RF: 0 metformin [Glucophage] 1,000 MG tablet 1,000 mg PO BID RF: 0 aspirin 81 MG tablet,delayed release (DR/EC) 81 mg PO DAILY RF: 0 tamsulosin [Flomax] 0.4 mg capsule 0.4 mg PO HS RF: 0 Trulicity 0.75 mg/0.5 mL pen injector 0.75 mg SUBCUT QWEEK RF: 0 glipizide 10 mg tablet extended release 24hr 20 mg PO BID RF: 0 lisinopril 20 mg tablet 20 mg PO DAILY RF: 0 gabapentin 800 mg tablet 800 mg PO TID RF: 0 pantoprazole 40 mg tablet,delayed release (DR/EC) 40 mg PO BID RF: 0 ferrous sulfate [iron] 325 mg (65 mg iron) Tablet 325 mg PO DAILY RF: 0 cholecalciferol (vitamin D3) [Vitamin D3] 50 mcg (2,000 unit) Capsule 50 mcg PO DAILY RF: 0 venlafaxine 225 mg tablet extended release 24hr 225 mg PO DAILY RF: 0 Discontinued cephalexin 500 mg capsule 500 mg PO TID RF: 0 Discharge Instructions Instructions: Tendinitis (GEN) Stand Alone Forms: Nursing Discharge Form Activity:: avoid strenuous activity Equipment/Supplies:: No Equipment Needed Diet:: Diabetic diet, low Na Discharge Orders Discharge Orders: Discharge Order (Routine); Ordered 11/13/20 Ordered By: Nikolay Cruz DS: Summary Time Spent with Patient providing and/or coordinating discharge services: Greater than 30 minutes Status at Discharge Functional status at discharge: independent ambulation Overall status at discharge: patient is not back to baseline Mental Status: mental status grossly normal Speech and Movement: speech and movement normal Mood: congruent mood Affect: normal affect Exam Psych Mental Status: mental status grossly normal Speech and Movement: speech and movement normal Mood: congruent mood Affect: normal affect DS: Data Vitals/I&O Vitals and I&O: Vital Signs Temperature 36.5 C 11/13/20 07:16 Temperature Source Tympanic 11/13/20 07:16 Pulse 80 11/13/20 07:16 Pulse Rhythm Regular 11/13/20 09:13 Respiratory Rate 19 11/13/20 07:16 Respiratory Effort Non-Labored 11/13/20 09:13 Respiratory Depth Normal 11/13/20 09:13 Respiratory Pattern Normal 11/13/20 09:13 Blood Pressure 138/72 11/13/20 07:16 Blood Pressure Position Sitting 11/12/20 18:48 Pulse Oximetry 95 11/13/20 07:16 Oxygen Delivery Method Room Air 11/13/20 07:16 Oxygen Flow Rate 0 11/13/20 07:16 Pain Level 8 11/13/20 11:09 Intake & Output 11/12/20 11/13/20 11/13/20 23:59 11:59 23:59 Intake Total 340 / 580 240 / 580 Output Total 950 / 950 Balance -610 / -370 240 / -370 Weight 116.7 kg 116.4 kg Intake: IV 50 / 50 Oral 290 / 530 240 / 530 Output: Urine 950 / 950 Other: Urine Color Yellow Brown Urine Appearance Clear Clear Urine Odor Strong Voiding Methods Toilet Data Completed and Pending Labs on day of discharge: Labs from last 24 hours 11/13/20 11/13/20 11/12/20 06:35 06:35 22:03 WBC RBC Hgb Hct MCV MCH MCHC RDW Plt Count MPV Immature Gran % Neutrophils % Lymphocytes % Monocytes % Eosinophils % Basophils % Nucleated RBC % Absolute Neutrophils Absolute Lymphocytes Absolute Monocytes Absolute Eosinophils Absolute Basophils Sodium 136 Potassium 4.7 Chloride 100 Carbon Dioxide 29.6 Anion Gap 6.4 BUN 20 H Creatinine 1.3 Estimated GFR/1.73 m2 55.75 Glucose 212 H Hemoglobin A1c 7.7 H Uric Acid Calcium 8.9 Total Bilirubin 0.3 AST 18 ALT 33 Alkaline Phosphatase 80 C-Reactive Protein Total Protein 7.4 Albumin 3.7 COVID-19 Source Nasal/nares SARS-CoV-2 (PCR) Negative 11/12/20 11/12/20 19:15 19:15 WBC 6.36 RBC 4.53 Hgb 13.5 Hct 40.2 MCV 88.7 MCH 29.8 MCHC 33.6 RDW 12.3 Plt Count 184 MPV 10.3 Immature Gran % 0.5 Neutrophils % 60.5 Lymphocytes % 26.9 Monocytes % 9.4 Eosinophils % 2.4 Basophils % 0.3 Nucleated RBC % 0 Absolute Neutrophils 3.85 Absolute Lymphocytes 1.71 Absolute Monocytes 0.60 Absolute Eosinophils 0.15 Absolute Basophils 0.02 Sodium 137 Potassium 5.0 Chloride 101 Carbon Dioxide 28.2 Anion Gap 7.8 BUN 16 Creatinine 1.3 Estimated GFR/1.73 m2 55.75 Glucose 234 H Hemoglobin A1c Uric Acid 7.2 Calcium 9.1 Total Bilirubin AST ALT Alkaline Phosphatase C-Reactive Protein 1.69 H Total Protein Albumin COVID-19 Source SARS-CoV-2 (PCR) [facility] Medical History Abnormality of penis (11/18/14) Alcoholic cirrhosis of liver without ascites Anxiety (07/16/14) Benign neoplasm of colon (08/15/11) BPH (benign prostatic hyperplasia) Degenerative cervical spinal stenosis (12/23/14) Depression (07/16/14) Diabetes mellitus type II, uncontrolled Elevated bilirubin Erectile dysfunction (06/19/14) Gallbladder sludge GERD (gastroesophageal reflux disease) Hyperlipidemia (05/16/13) Hypertension Liver cirrhosis secondary to nonalcoholic steatohepatitis (HERR) Non-insulin dependent type 2 diabetes mellitus Obesity (BMI 35.0-39.9 without comorbidity) Sensorineural hearing loss, bilateral (01/06/17) Surgical History bunionectomy (07/18/14) Left Dr Márquez H/O gastric bypass History of colonoscopy (~10/30/20) History of esophagogastroduodenoscopy (EGD) (~10/30/20) Repair of inguinal hernia Repair, ACL Rotator Cuff Repair S/P gastric bypass Family History Mother Alzheimer disease Social History (Updated 11/12/20 @ 23:46 by Yung Horn) Smoking/Tobacco Use Status: Former Tobacco Use Quit Date: 07/10/85 Smoking risk assessment performed?: Yes Alcohol Intake: former Substance use type: does not use Do you feel safe at home: Yes Additional Social history: [place] [facility]
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
[2020-11-13 15:41] VITALS: BP 106/73; PULSE 106; RESP 20; TEMP 36.7; O2SAT 97
== END 2020-11-13 16:19 | disposition home or self-care (01) ==
LOC: ER 22:37 → MS 23:01
PROVIDERS: Admitting Provider Family Medicine; Emergency Provider Emergency Medicine; PCP Family Medicine; Visit Provider Family Medicine
DX: M77.51 Other enthesopathy of right foot and ankle (principal); I10 Essential (primary) hypertension; K75.81 Nonalcoholic steatohepatitis (NASH); E11.9 Type 2 diabetes mellitus without complications; Z20.822 Contact with and (suspected) exposure to COVID-19; K70.30 Alcoholic cirrhosis of liver without ascites; N40.0 Benign prostatic hyperplasia without lower urinary tract symptoms; F41.9 Anxiety disorder, unspecified; M47.812 Spondylosis without myelopathy or radiculopathy, cervical region; M79.671 Pain in right foot; K21.9 Gastro-esophageal reflux disease without esophagitis; E78.5 Hyperlipidemia, unspecified; E66.9 Obesity, unspecified; H90.3 Sensorineural hearing loss, bilateral; Z98.84 Bariatric surgery status; W20.8XXA Other cause of strike by thrown, projected or falling object, initial encounter; X50.9XXA Other and unspecified overexertion or strenuous movements or postures, initial encounter
CPT/HCPCS: 36415; 80048; 80053; 87635; 96374; 96376; 97110; 97162; 97530; 99285; J1650; 73630; 73720; 83036; 84550; 85025; 86140; 99217; 99284; G0378; J0690

== ENCOUNTER → 2020-11-19 13:19 | Outpatient (BNVA) | payer MEDICARE, OTHER, SELFPAY | PROVIDERS: PCP Family Medicine; Referring Provider Family Medicine; Visit Provider Surgery | DX: K82.8 Other specified diseases of gallbladder (principal); K75.81 Nonalcoholic steatohepatitis (NASH); Z98.84 Bariatric surgery status; E11.65 Type 2 diabetes mellitus with hyperglycemia; E66.9 Obesity, unspecified; K21.9 Gastro-esophageal reflux disease without esophagitis | CPT/HCPCS: 99213; 99215 ==

== ENCOUNTER 2020-11-23 02:06 | Outpatient (CLI) | payer MEDICARE, OTHER, SELFPAY ==
--- NOTE | 2020-11-23 | DI.MRI_ITS ---
Exam(s) MR UPPER JOINT RT WO EXAM: MR UPPER JOINT RT WO CLINICAL HISTORY: TRAUMA,COMPLETE ROTATOR CUFF TEAR, RUPTURE,M75.121,S/P RT ROTATOR CUFF TECHNIQUE: Multiplanar multisequence MRI of the shoulder was performed. COMPARISON: X-rays 10/24/2020 No prior MRI scans available in our PACS system. FINDINGS: MARROW:There is no evidence of fracture, Hill-Sachs deformity, nor ominous osseous lesions. There is abundant artifact from multiple surgical anchors greater tuberosity region of the humeral head. ROTATOR CUFF MECHANISM: AC JOINT/ACROMIUM: There is widening of the AC joint which is most probably postsurgical. No signifi cant impingement at this level.. There is no evidence of os acromiale. Supraspinatus: Some increased signal. At 1 point there is a thin area of fluid signal traversing the entire thickness as seen on the coronal images although this is medially adjacent to abundant artifa ct. Nevertheless, there is some fluid in the sub acromial bursa and therefore this may represent a t hin full-thickness tear. There is no significant muscle belly atrophy Infraspinatus: Intact. No evidence of tear nor muscle atrophy. Teres Minor: Intact. No evidence of tear nor muscle atrophy. Subscapularis/anterior cuff: There is some tendinitis signal seen within the insertional fibers just anterior to the lesser tuberosity. However, no evidence of full-thickness tear. BICEPS TENDON: Difficult to evaluate because of the abundant artifact from the multiple suture anchor s. There is no tenodesis site in the proximal diaphysis humerus. Tendon is poorly visualized within the intertubercular groove. LABRUM: Some increased intrasubstance is seen in the superior labrum. No obvious tears of the museum preparator ior labrum nor of the anterior labrum nor of the inferior labrum. There is no evidence of paralabral cyst GLENOHUMERAL JOINT: No obvious joint effusion or loose intra-articular bodies. Small osteophyte on t he inferior articular surface of the humeral head. No degenerative subarticular cysts. No degenerat neida subarticular cysts. No evidence of capsular tear. The inferior glenohumeral ligament is intact. QUADRILATERAL SPACE: No evidence of mass in the region of the axillary nerve and dorsal circumflex hu meral vessels. Visualized triceps muscle at this level appears unremarkable. IMPRESSION: 1. There are multiple suture anchors in the lateral humeral head greater tuberosity region. There is no tenodesis site in the proximal humerus 2. There is a focal area of thin fluid signal traversing the length of the supraspinatus tendon which may be a small area of full-thickness tear but this is immediately adjacent to abundant artifact fro m the anchors. Nevertheless, there does appear to be some fluid in the overlying subacromial bursa a nd therefore this may be a thin full-thickness tear. There is no associated retraction musculotendin ous junction of the supraspinatus. Infraspinatus and teres minor appear unremarkable. Tendinitis si gnal seen within the anterior cuff-subscapularis but no full-thickness tear. 3. Intra-articular biceps tendon is difficult to visualize because of the amount of artifact here. H owever, may be torn. 4. Mild increased signal seen in the superior labrum. No prominent labral tears. No evidence of pa ralabral cyst. 5. Mild degenerative changes in the glenohumeral joint. Widened AC joint is most probably related t o prior decompression surgery. DATA REPOSITORY:
== END 2020-11-23 02:26 ==
PROVIDERS: PCP Family Medicine; Visit Provider Orthopaedic Surgery
DX: M75.121 Complete rotator cuff tear or rupture of right shoulder, not specified as traumatic (principal)
CPT/HCPCS: 73221

== ENCOUNTER 2020-12-21 02:26 | Outpatient (CLI) | payer MEDICARE, OTHER, SELFPAY ==
[2020-12-21 11:41] LABS: Source Nasal/Nares
[2020-12-21 17:56] LABS: COVID-19 PCR Negative (Negative)
== END 2020-12-21 02:27 | disposition home or self-care (01) ==
LOC: LBO 02:26
PROVIDERS: PCP Family Medicine; Visit Provider Surgery
DX: Z20.822 Contact with and (suspected) exposure to COVID-19 (principal); Z01.818 Encounter for other preprocedural examination
CPT/HCPCS: 87635

== ENCOUNTER 2020-12-22 12:00 | Inpatient (IN) | payer MEDICARE, OTHER, SELFPAY ==
--- NOTE | 2020-12-21 21:05 | HPE_ITS ---
Date of service: 12/22/20 Time of Service: 09:00 Assessment and Plan Assessment and plan (1) Anastomotic stricture of gastrojejunostomy: Status: Acute (2) Biliary dyskinesia: Status: Acute Assessment and plan: The alternatives to surgery, risks, complications, and the possible need to convert to open cholecystectomy were discussed. Also bleeding, infection, pneumonia, blood clots, complications of anesthesia, damage to bowel, bladder, blood vessels, or bile ducts, liver, need for blood transfusions. Also: chronic pain, chronic diarrhea, reoccurrence of signs and symptoms, port site hernias, adhesions. All questions were answered and the patient elected to proceed with surgery. (3) Hypertension: Status: Acute (4) Hyperlipidemia: Status: Acute (5) GERD (gastroesophageal reflux disease): Status: Acute (6) Obesity (BMI 35.0-39.9 without comorbidity): Status: Acute (7) Non-insulin dependent type 2 diabetes mellitus: Status: Acute (8) Degenerative cervical spinal stenosis: Status: Chronic (9) Liver cirrhosis secondary to nonalcoholic steatohepatitis (HERR): Status: Acute (10) Alcoholic cirrhosis of liver without ascites: Status: Chronic (11) S/P gastric bypass: Status: Chronic History of Present Illness Consults Consult date: 12/22/20 Narrative: pt is here today for lap jaqueline Pt is seen and examined. Today he notes he is having pain in RUQ. All questions were answered he and his satisfaction. He is stable for proced ure today-his. clinic vitist 11/09:Pt has been having pain in RUQ off/on. WHen he has pain it is at [place] point and radiants into his back. He has chronic shoulder pain from a from injury. He had an episode of severe pain- can't remember what he had for dinner. Can't really identify any particular foods that triggers it. He has been having lots of chips lately. he has stopped drinking ETOH. He does have a hx of cirrhosis/fatty liver. He has had laparascopic gastric bypass. See echo in [place] Path was reviewed w/ the pt as well: signif for reflux esophagitis. pt had HIDA- when he received the CCK- This gave him bad pain in the RUQ. CT 06/28 Gallbladder and biliary tract: Layering stones versus sludge. No biliary dilatation. HIDA:30% pt tolerated his repeat EGD/CE well. I did d/w doing his lap jaqueline at [facility]. Anesthesia is comfortable doing his procedure here. I originally met Yung back in 06/28. Hei has reflux, he has had a gasric bypass - he has a sharp angle at his anastomosis. I did dilate this and this helped alleviate some of his s/s. We also have him on a PPI regimen. He says he has stopped using ETOH. I think his GI problems are multfactorial. He has reflux/anstomotic issues. I think he also has some GB issues and have proven this enough to my satisfaction that we should pursue surgical intervention. . He definitely is at higher risk for major surgery, but acceptable for [facility]. I did review his case w/ anesthesia and he is acceptable for [facility]. He is s/p gastric bypass and needs to be on lifelong vitamin supplementation- iron/b12, etc. He needs to adjust his diet adn lifestyle habits, as he has a small stomach and should only be eating small portions to avoid refluxing. Path does show reflux adn will prob need to stay on a PPI. B/c of the risk of osteoporosis- he should participate in regular weight -baring exercise- should as walking. pt will be admitted postOP he will need to stop asa prior to surgery Review of Systems All systems reviewed & are unremarkable except as noted in HPI and below PFSH Medical History Abnormality of penis (11/18/14) Alcoholic cirrhosis of liver without ascites Anxiety (07/16/14) Benign neoplasm of colon (08/15/11) BPH (benign prostatic hyperplasia) Chest pain Per pt. this was related to when he had gastric bypass he had scarring over his esophagus, and it wasn't cardiac in nature Degenerative cervical spinal stenosis (12/23/14) Depression (07/16/14) Diabetes mellitus type II, uncontrolled Elevated bilirubin Erectile dysfunction (06/19/14) Gallbladder sludge GERD (gastroesophageal reflux disease) Hyperlipidemia (05/16/13) Hypertension Liver cirrhosis secondary to nonalcoholic steatohepatitis (HERR) Non-insulin dependent type 2 diabetes mellitus Obesity (BMI 35.0-39.9 without comorbidity) Sensorineural hearing loss, bilateral (01/06/17) Surgical History bunionectomy (07/18/14) Left Dr Márquez H/O gastric bypass 2009 History of colonoscopy (~10/30/20) History of esophagogastroduodenoscopy (EGD) (~10/30/20) Repair of inguinal hernia Repair, ACL Rotator Cuff Repair S/P gastric bypass Family History Mother Alzheimer disease Social History Smoking/Tobacco Use Status: Former Tobacco Use Quit Date: 07/10/85 Smoking risk assessment performed?: Yes Alcohol Intake: former Drug use: Never Substance use type: does not use Do you feel safe at home: Yes Additional Social history: lives with Tahmina in [facility] Allergies and Home Medications Allergies Allergy/AdvReac Type Severity Reaction Status Date / Time adhesive Allergy Intermediate blisters Unverified 12/22/20 08:19 Home Medications Medication Instructions Recorded Confirmed Type aspirin 81 mg PO DAILY 05/26/17 12/21/20 History metformin [Glucophage] 1,000 mg PO BID 11/27/17 12/22/20 History Trulicity 0.75 mg SUBCUT QWEEK 07/01/20 12/22/20 History tamsulosin [Flomax] 0.4 mg PO HS 07/01/20 12/22/20 History cholecalciferol (vitamin D3) 50 mcg PO DAILY 07/02/20 12/22/20 History [Vitamin D3] ferrous sulfate [iron] 325 mg PO DAILY 07/02/20 12/22/20 History gabapentin 800 mg PO TID 07/02/20 12/22/20 History glipizide 20 mg PO BID 07/02/20 12/22/20 History lisinopril 20 mg PO DAILY 07/02/20 12/22/20 History pantoprazole 40 mg PO BID 07/02/20 12/22/20 History venlafaxine 225 mg PO DAILY 07/02/20 12/22/20 History albuterol sulfate 90 mcg/actuation 1 inh INHALATION PRN 09/18/20 11/12/20 History aerosol inhaler diclofenac sodium [Voltaren 2 g TOPICAL QID #50 g 11/13/20 12/21/20 Rx Arthritis Pain] cephalexin 500 mg capsule 500 mg PO TID 11/19/20 History Exam Const General: cooperative, healthy appearing, comfortable, no acute distress, well developed and well groomed Nutritional Appearance: average body habitus and well nourished Orientation: alert, awake and oriented x3 HENMT Head: normal to inspection, normocephalic and atraumatic Ears: hearing grossly normal bilaterally and external ears normal General nose exam: external nose normal Face and sinus: normal facial exam and sinuses nontender Mouth: oral mucosae normal, lip normal, tongue normal and moist mucous membranes Teeth and gingiva: dentition normal Eyes General: appearance normal, both eyes and all related structures Conjunctivae: conjunctivae normal Sclera: sclerae normal Pupils: PERRL Neck Neck: normal visual inspection and full ROM Chest Chest: normal inspection of the chest Resp Effort & Inspection: normal respiratory effort, able to speak in complete sentences, no cough, no nasal flaring, not tachypneic and no use of accessory muscles Auscultation: clear to auscultation bilaterally, no rales, no rhonchi and no wheezes Cardio Jugular venous pressure: no JVD Rate: regular rate Rhythm: regular rhythm GI Inspection: normal to inspection, no edema and non-distended Palpation: soft, no masses, nontender and No ascites Auscultation: normal bowel sounds Other: obese abdomen. post sx changes noted. no umbilical hernias. Skin General skin exam: no rashes or lesions noted Trauma: no lacerations or abrasions Neuro General: patient alert, patient oriented x3, oriented, gait normal, moves all extremities, no focal motor deficits and CN's II-XI intact bilaterally Cognition: normal cognition Speech: speech normal Gait: normal gait Motor: muscle tone normal throughout Extrem General: normal to inspection, full ROM and no clubbing, cyanosis or edema Psych Appearance: grossly normal and well kempt Mental Status: mental status grossly normal Speech and Movement: speech and movement normal Affect: normal affect COVID-19 Screening Have you, or household traveled for leisure in last 14 days?: No Had IN PERSON contact w/suspected or confirmed C-19 person: No
[2020-12-22] VITALS (16 sets, daily range): BP systolic 75–162; BP diastolic 38–96; PULSE 74–89; RESP 9–17; TEMP 36–36.5; O2SAT 92–95; BMI 36.1
--- NOTE | 2020-12-22 08:28 | ANES.PREOP_ITS ---
General Info Date of Service Date Performed: 12/22/20 Height: 5 ft 10 in Weight: 114.1 kg Body Mass Index (BMI): 36.1 Surgical Procedure: Operation Date: 12/22/20 10:25 Proposed Procedures Side Surgeon p Cholecystectomy Laparoscopic Krystin Coe DO Meds Allergies and Home Medications Allergies Allergy/AdvReac Type Severity Reaction Status Date / Time adhesive Allergy Intermediate blisters Unverified 12/22/20 08:19 Home Medication Medication Instructions Recorded aspirin 81 mg PO DAILY 05/26/17 metformin [Glucophage] 1,000 mg PO BID 11/27/17 Trulicity 0.75 mg SUBCUT QWEEK 07/01/20 tamsulosin [Flomax] 0.4 mg PO HS 07/01/20 cholecalciferol (vitamin D3) 50 mcg PO DAILY 07/02/20 [Vitamin D3] ferrous sulfate [iron] 325 mg PO DAILY 07/02/20 gabapentin 800 mg PO TID 07/02/20 glipizide 20 mg PO BID 07/02/20 lisinopril 20 mg PO DAILY 07/02/20 pantoprazole 40 mg PO BID 07/02/20 venlafaxine 225 mg PO DAILY 07/02/20 albuterol sulfate 90 mcg/actuation 1 inh INHALATION PRN 09/18/20 aerosol inhaler diclofenac sodium [Voltaren 2 g TOPICAL QID #50 g 11/13/20 Arthritis Pain] cephalexin 500 mg capsule 500 mg PO TID 11/19/20 Current Visit Medications: Current Medications Generic Name Dose Route Start Last Admin Trade Name Freq PRN Reason Stop Dose Admin Acetaminophen 1,000 mg 12/22/20 06:00 Acetaminophen 500 Mg Tab PO 01/20/21 23:59 PREOP VINCENT Gabapentin 600 mg 12/22/20 06:00 Gabapentin 300 Mg Cap PO 01/20/21 23:59 PREOP VINCENT Ringer's Solution 1,000 mls @ 80 mls/hr 12/22/20 06:00 IV 01/20/21 23:59 INFUSION VINCENT Cefazolin Sodium 3,000 mg/ 100 mls @ 200 mls/hr 12/22/20 06:00 Sodium Chloride IVPB 12/22/20 23:59 [facility] IV Miscellaneous Supplies 1 each 12/22/20 06:00 Iv Access IV 01/20/21 23:59 DIRECTED VINCENT Sodium Chloride 0 ml 12/22/20 06:00 Normal Saline Flush 10 Ml Syr IV 01/20/21 23:59 PRN PRN Sodium Chloride 0 ml 12/22/20 06:00 Normal Saline 10 Ml Vial IJ 01/20/21 23:59 DIRECTED PRN Sterile Water 0 ml 12/22/20 06:00 Water,Injection,Sterile 10 Ml Vial IJ 01/20/21 23:59 DIRECTED PRN PFSH Active Problems Active Problems: Problem Status Onset Code Chest pain R07.9 Dysphagia R13.10 Abdominal pain R10.9 DVT prophylaxis Z29.9 Discharge planning issues Z02.9 DVT prophylaxis Z29.9 Discharge planning issues Z02.9 Transaminitis R74.01 Anastomotic stricture of gastrojejunostomy K91.89 Weakness with dizziness R53.1, R42 Shortness of breath at rest R06.02 Anastomotic stricture of gastrojejunostomy K91.89 SOB (shortness of breath) R06.02 Fall W19.XXXA Other sprain of right shoulder joint, initial encounter S43.491A Cellulitis of foot, right L03.115 Foot pain, right M79.671 Biliary dyskinesia K82.8 Hypertension I10 Hyperlipidemia 05/16/13 E78.5 GERD (gastroesophageal reflux disease) K21.9 Obesity (BMI 35.0-39.9 without comorbidity) E66.9 Diabetes mellitus type II, uncontrolled E11.65 Gallbladder sludge K82.8 S/P gastric bypass Z98.84 Alcoholic cirrhosis of liver without ascites K70.30 Liver cirrhosis secondary to nonalcoholic steatohepatitis (HERR) K75.81, K74.60 Degenerative cervical spinal stenosis 12/23/14 M48.02 Non-insulin dependent type 2 diabetes mellitus E11.9 Medical History Medical History Abnormality of penis (11/18/14) Alcoholic cirrhosis of liver without ascites Anxiety (07/16/14) Benign neoplasm of colon (08/15/11) BPH (benign prostatic hyperplasia) Chest pain Per pt. this was related to when he had gastric bypass he had scarring over his esophagus, and it wasn't cardiac in nature Degenerative cervical spinal stenosis (12/23/14) Depression (07/16/14) Diabetes mellitus type II, uncontrolled Elevated bilirubin Erectile dysfunction (06/19/14) Gallbladder sludge GERD (gastroesophageal reflux disease) Hyperlipidemia (05/16/13) Hypertension Liver cirrhosis secondary to nonalcoholic steatohepatitis (HERR) Non-insulin dependent type 2 diabetes mellitus Obesity (BMI 35.0-39.9 without comorbidity) Sensorineural hearing loss, bilateral (01/06/17) Surgical History Surgical History bunionectomy (07/18/14) Left Dr Márquez H/O gastric bypass 2010 History of colonoscopy (~10/30/20) History of esophagogastroduodenoscopy (EGD) (~10/30/20) Repair of inguinal hernia Repair, ACL Rotator Cuff Repair S/P gastric bypass Tobacco Smoking/Tobacco Use Status: Former Tobacco Use Alcohol Alcohol Intake: former Substance Use Substance use: Never Substance use type: does not use Vital Signs and Lab Results Vital Signs Most Recent Vital Signs in EMR: Most Recent Vital Signs Temp Pulse Resp BP Pulse Ox 36.4 C L 89 16 120/81 95 12/22/20 08:25 12/22/20 08:25 12/22/20 08:25 12/22/20 08:25 12/22/20 08:25 Lab Results Blood Type / Crossmatch: No Data to Display Complete Blood Count: No Data to Display Complete Metabolic Panel: No Data to Display Liver Function Panel: No Data to Display Coagulation Panel: No Data to Display Cardiac Panel: No Data to Display Arterial Blood Gas: No Data to Display Venous Blood Gas: No Data to Display Pancreas Panel: No Data to Display Thyroid Panel: No Data to Display Infectious Disease: Coronavirus (COVID-19)(PCR) Negative (Negative) 12/21/20 08:54 12/21/20 Coronavirus 2019 Source Nasal/nares 12/21/20 08:54 12/21/20 Blood Cultures: No Data to Display Toxicology Panel: No Data to Display Imaging and Studies Imaging and Studies EKG Summary: DATE/TIME OF SERVICE: 08/19/20 Conclusion Sinus rhythm...normal P axis, V-rate 60- 99 Stress Test Summary: Date of study: 11/11/2016 Impressions: Normal perfusion by Tc99m Sestamibi [facility]. Echocardiogram Summary: Date of study: 11/29/2016 Summary: 1. Left ventricle: The cavity size was normal. There was mild asymmetric hypertrophy of the septum. Systolic function was normal. The estimated ejection fraction was 55-60%. Wall motion was normal; there were no regional wall motion abnormalities. 2. Mitral valve: There was mild regurgitation. 3. Right ventricle: The cavity size was normal. Wall thickness was normal. Systolic function was normal. 4. Pulmonary arteries: Pulmonary systolic pressure was increased, in the range of 35mm Hg to 40mm Hg. Pulmonary Function Summary: Date of service: 08/03/20 Time of Service: 08:03 Pulmonary Function Test Result Interpretation Spirometry: Shows no evidence of obstructive airways disease, no bronchodilator response Lung Volumes: No evidence of restriction Diffusion Capacity: Mildly reduced, this is normal when corrected to alveolar volume. This also represents a somewhat suboptimal patient effort Airway Pressure: Normal Impression Overall, normal pulmonary function study the slightly low diffusion capacity is likely due to suboptimal patient effort for that maneuver when the study was compared to previous 1 from 05/08/2017 diffusion capacity is slightly lower but is stable when corrected to alveolar volume FVC had asked 680 cc decline, FEV1 had declined by 560 cc both pre and postbronchodilator spirometry efforts were poor Clinical Correlation therefore is recommended. Anesthesia Assessment and Plan Anesthesia History Personal History: No History of Anesthesia Complications Family History: No Family History of Anesthesia Complications Exercise Tolerance Exercise Tolerance: Metabolic Equivalents<4 Pertinent Negatives Pertinent Negatives: No Symptoms of GERD Cardiac & Pulmonary Exam Cardiac Exam: Normal S1/S2 Heart Sounds Pulmonary Exam: Clear Bilateral Breath Sounds Airway Exam Known Difficult Airway: No Mallampati Class: 2 Mouth Opening: Normal (> 3cm) Thyromental Distance: Less than 3 cm Neck Range of Motion: Full ROM Neck Circumference: Normal Teeth Condition: Normal Dentition ASA Classification ASA Score: ASA 3 Emergency Case?: No NPO Status NPO Status: NPO Clears >2 hours, Solids >8 hours Anesthesia Plan Resuscitation Status: Full Code Anesthesia Technique: General Anesthesia Airway Planned: Endotracheal Tube Monitors Used: Standard Monitors
[2020-12-22] MEDS: Lactated Ringers 1,000 ML 80 ML IV (08:35)
[2020-12-22] MEDS: Acetaminophen 500 MG TAB 1000 MG PO (08:36)
[2020-12-22] MEDS: Gabapentin 300 MG CAP 600 MG PO (08:36)
--- NOTE | 2020-12-22 09:34 | ROE_ITS ---
Date of service: 12/22/20 Time of Service: 09:34 Operative Note Operative Note DATE OF PROCEDURE: 12/22/20 PRE-OP DIAGNOSIS: biliary dyskinesia POST-OP DIAGNOSIS: same PROCEDURE: lap jaqueline SURGEON: Krystin Carranza [employer]: Qi Walters ANESTHESIA TYPE: Local By Surgeon and General LMA/ETT Refer to Anesthesia Record Patient was transported to: PACU Procedure Description: The pt is seen at the request of there PCP regarding acute on chronic cholecystitis, cholelithiasis. The pt has failed outpt conservative medical measures and is here today for laparoscopic cholecystectomy. Informed consent was obtained, explaining risks and benefits of the procedure including but not limited to bleeding, infection, pneumonia, blood clots, possible damage to bowel, bladder, blood vessels, bile ducts, possible open procedure, complications of general anesthesia and other unforetold complications. PROCEDURE: The patient agrees and is brought to the operative room suite and placed in supine position. Anesthesia was administered per the Department of Anesthesia. The patient did receive IV antibiotics. NG tube and Wolff catheter are placed. The patient was prepped and draped in the usual sterile fashion using DuraPrep scrub solution. Pause for the cause was done. 20 mL of 1% buffered lidocaine was used for local anesthetization. A stab incision was made in the umbilicus and the Verres inserted. Drop test was positive and insufflation was begun. When 15 mm of pressure was noted on the monitor, the Veress was removed and #5 port inserted. The camera was inserted through the port and shows no damage to underlying structures. A 10 mm port was then placed in the epigastric position under direct visualization following creation of local field blocks as well as two 5 mm ports in the right upper quadrant. The gallbladder fundus was grasped and retracted towards the right shoulder. Infundibulum was grasped and retracted laterally. The hepat-duodenal ligament is entered. The cystic duct and artery are dissected out and the most inferior portion of the gallbladder plate is removed from the liver and the critical view of safety was obtained after clearing away all fatty material. Endo Clips were placed across the duct and artery and these structures are divided. The remainder of the gallbladder was excised from the liver bed. The gallbladder was placed in a bag and brought out. Examination of the gallbladder shows indeed the cystic duct and artery to have been divided. The remainder of the abdomen was copiously irrigated with a liter of saline. All saline is removed. There is no bleeding or bile leakage from the liver bed or the clips sites. An EndoClose needle was used to close the 10 mm port site with an 0 Vicryl. All ports and instruments are removed. SPonge and needle counts are correct. Pneumoperitoneum is evacuated and the port sites are monitored to make sure there is no bleeding at the time of desufflation. Port sites are irrigated and the skin is closed with 4-0 Monocryl in a running s ubcuticular fashion. Skin glue sterile dressings are applied. The patient tolerated the procedure well without complications, transferred to the recovery room in stable condition. KRYSTIN CARRANZA, DO
--- NOTE | 2020-12-22 10:35 | GB_PTH ---
PATIENT: Yung Betancur LOC: U#:[id number] AGE/SX: 65/M ROOM: 229 RE12/22/[address]: Krystin Coe : 1955 BED: A DIS: 12/24/2020 SPEC #: [id number] RECD: 12/22/20 12:56 STATUS: ROBER REQ #: [id number] JI: 12/22/20 10:[address]: Krystin Coe DEPT: Surgical Specimen RECD BY: Mary Hall ENTERED: 12/22/20 12:59 SP TYPE: GB OTHR DR: Yung Horn Tissues: 1 - GALLBLADDER 2 - LIVER BIOPSY(NEEDLE/WEDGE) Procedures: GROSS AND MICRO LEVEL 5 GROSS AND MICRO LEVEL 3 Comments: [id number]
[2020-12-22] MEDS: ceFAZolin 3,000 MG in Normal Saline 100 ML 200 MG IVPB (10:38)
[2020-12-22] MEDS: fentaNYL 100 MCG/2 ML VIAL IVP (12:55)
--- NOTE | 2020-12-22 13:41 | W.ANESPOSTOP ---
Postoperative Evaluation Date, Time and Location Date Performed: 12/22/20 Time Performed: 13:41 Patient Location: PACU Vital Signs Most Recent Imported Vital Signs: Most Recent Vital Signs Temp Pulse Resp BP Pulse Ox 36.1 C L 74 11 L 149/82 H 94 12/22/20 13:25 12/22/20 13:25 12/22/20 13:25 12/22/20 13:25 12/22/20 13:25 Pain Score Most Recent Pain Score: Most Recent Pain Score Pain Level 4 12/22/20 13:25 Assessment Mental Status: Arousable with meaningful communication Airway and Respiratory Function: Patent airway with normal (patient baseline) respiratory exam Cardiovascular Function: Hemodynamically Stable Hydration Status: Adequately Hydrated Nausea & Vomiting: No Nausea or Vomiting Pain: Pain is tolerable/mild (<5/10) Peripheral Nerve Block: Patient did not receive a nerve block
[2020-12-22] MEDS: Normal Saline 1,000 ML 125 ML IV ×2 (14:22→22:34)
[2020-12-22] MEDS: Docusate Sodium 100 MG CAP PO ×2 (14:50→19:48)
[2020-12-22] MEDS: MORPHine 10 MG/ML VIAL 2 MG IV ×3 (15:34→22:42)
[2020-12-22] MEDS: Ondansetron 4 MG/2 ML VIAL IVP (15:34)
[2020-12-22] MEDS: Normal Saline Flush 10 ML SYR IV ×3 (15:36→22:43)
--- NOTE | 2020-12-22 17:41 | W.PM.PROGNOT ---
Date of Service Date of service: 12/22/20 Time of Service: 17:42 Assessment and Plan Assessment and plan (1) Biliary dyskinesia: Status: Acute Assessment and plan: The patient is doing well post-op. Their pain is well controlled. They are having no nausea or vomiting. The pt is not having any chest pain or SOB, productive cough; no calf pain or swelling. The pt is making good urine. The pt pain is adequately controlled. The case was discussed with nursing and patient?s progress reviewed. All of the pt's home medications were addressed and adjusted accordingly for their oral intact status. HEENT: no jaundice. no eye pain/drainage/redness/swelling. Mild sore throat Cardio- NSR no chest pain, BP stable. Pulm: no sob or productive cough. no hemoptysis Incision- clean/dry. Dressing intact no excessive bleeding or drainage I discussed with the patient and/or there family about the findings in surgery and the pt's progress. We reviewed expectations for progress in the hospital; what the pt could expect for recovery time and length of stay. We discussed the importance of walking and pulmonary toilet to avoid blood clots and pneumonia. Continue current plans for pulmonary toilet, GI and DVT prophylaxis. We shall continue the current plan for pain management as it is at an appropriate level, and working well for the pt. Appropriate measures will be taken for constipation prevention, and this was also reviewed with the pt. The wound care plan was reviewed with nursing as well. d/w findings w/ . plan d/c in am see orders Objective Last Vital Signs Temp 36.1 C L 12/22/20 14:15 Pulse 82 12/22/20 14:15 Resp 16 12/22/20 16:15 BP 162/96 H 12/22/20 14:15 Pulse Ox 93 12/22/20 16:15
[2020-12-22] MEDS: Pantoprazole 40 MG TABCR PO (19:48)
[2020-12-22] MEDS: Simethicone 80 MG CHEW 160 MG PO (19:48)
[2020-12-22] MEDS: Gabapentin 800 MG TAB PO (19:48)
[2020-12-22] MEDS: Tamsulosin 0.4 MG CAPCR PO (22:35)
[2020-12-23] MEDS: Normal Saline 1,000 ML 82 ML IV (06:27)
[2020-12-23] MEDS: MORPHine 10 MG/ML VIAL 2 MG IV ×2 (06:27→10:31)
[2020-12-23 07:49] VITALS: BP 161/83; PULSE 74; RESP 20; TEMP 36.2; O2SAT 95
[2020-12-23] MEDS: Insulin Aspart 300 UNITS/3 ML PEN SC ×3 (08:30→17:07)
[2020-12-23] MEDS: Docusate Sodium 100 MG CAP PO ×3 (08:31→20:35)
[2020-12-23] MEDS: Lisinopril 20 MG TAB PO (08:31)
[2020-12-23] MEDS: Gabapentin 800 MG TAB PO ×3 (08:31→20:35)
[2020-12-23] MEDS: Venlafaxine 150 MG CAPCR PO (08:31)
[2020-12-23] MEDS: Venlafaxine 37.5 MG CAPCR 75 MG PO (08:31)
[2020-12-23] MEDS: Pantoprazole 40 MG TABCR PO ×2 (08:31→20:35)
--- NOTE | 2020-12-23 08:45 | W.PM.PROGNOT ---
Date of Service Date of service: 12/23/20 Time of Service: 08:45 Assessment and Plan Assessment and plan (1) Gallstones without obstruction of gallbladder: Status: Acute Assessment and plan: POD#1 pt tolerating cl liquids up walking pain reasonably controlled plan d/c later today MOM this am no abx rx tylenol / ibuprofen & ultram Subjective Subjective Interval history since last seen: Pt is doing well. no headaches. No CP or SOB. no productive cough. no dysuria. no leg pain or swelling. pt c/o pf his chronic SOB- pt had PFT's and echo that were unchanged from his prior. Tolerating clears. passing gas. Urinating. He is up walking. Exam Const General: cooperative, healthy appearing, comfortable, no acute distress, well developed and well groomed Nutritional Appearance: average body habitus and well nourished Orientation: alert, awake and oriented x3 HENMT Head: normal to inspection, normocephalic and atraumatic Ears: hearing grossly normal bilaterally and external ears normal General nose exam: external nose normal Face and sinus: normal facial exam and sinuses nontender Mouth: oral mucosae normal, lip normal, tongue normal and moist mucous membranes Teeth and gingiva: dentition normal Eyes General: appearance normal, both eyes and all related structures Conjunctivae: conjunctivae normal Sclera: sclerae normal Pupils: PERRL Neck Neck: normal visual inspection and full ROM Chest Chest: normal inspection of the chest Resp Effort & Inspection: normal respiratory effort, able to speak in complete sentences, no cough, no nasal flaring, not tachypneic and no use of accessory muscles Auscultation: clear to auscultation bilaterally, no rales, no rhonchi and no wheezes Cardio Jugular venous pressure: no JVD Rate: regular rate Rhythm: regular rhythm GI Inspection: normal to inspection, no edema, non-distended and incision (c/d/i no redness/drainage/swelling ) Palpation: soft, no masses, nontender and No ascites Auscultation: normal bowel sounds Skin General skin exam: no rashes or lesions noted Trauma: no lacerations or abrasions Neuro General: patient alert, patient oriented x3, oriented, gait normal, moves all extremities, no focal motor deficits and CN's II-XI intact bilaterally Cognition: normal cognition Speech: speech normal Gait: normal gait Motor: muscle tone normal throughout Extrem General: normal to inspection, full ROM and no clubbing, cyanosis or edema Psych Appearance: grossly normal and well kempt Mental Status: mental status grossly normal Speech and Movement: speech and movement normal Affect: normal affect Objective Last Vital Signs Temp 36.2 C L 12/23/20 07:49 Pulse 74 12/23/20 07:49 Resp 20 12/23/20 07:49 BP 161/83 H 12/23/20 07:49 Pulse Ox 95 12/23/20 07:49
--- NOTE | 2020-12-23 08:50 | W.PM.DS.N ---
Date of service: 12/23/20 Time of Service: 18:10 DS: Diagnosis Discharge Diagnosis (1) Gallstones without obstruction of gallbladder: Status: Acute Discharge Plan Disposition Patient Disposition: HOME Condition: Good Discharge Details Reason For Visit: S/P Lap Skyla Admit Date/Time: 12/22/20 12:00 Admit Provider: Krystin Coe Attending Provider: Krystin Coe [facility]: pt underwent lap skyla form chronic gb/stones. Postop he is done well. He is up walking. He is tolerating clear liquids. Home Meds and New Rx's Prescriptions: No Action albuterol sulfate 90 mcg/actuation HFA aerosol inhaler 1 inh inhalation PRNRF: 0 metformin [Glucophage] 1,000 MG tablet 1,000 mg PO BID RF: 0 diclofenac sodium [Voltaren Arthritis Pain] 1 % gel 2 g topical QID Qty: 50 RF: 0 aspirin 81 MG tablet,delayed release (DR/EC) 81 mg PO DAILY RF: 0 tamsulosin [Flomax] 0.4 mg capsule 0.4 mg PO HS RF: 0 Trulicity 0.75 mg/0.5 mL pen injector 0.75 mg SUBCUT QWEEK RF: 0 glipizide 10 mg tablet extended release 24hr 10 mg PO BID RF: 0 lisinopril 20 mg tablet 20 mg PO DAILY RF: 0 gabapentin 800 mg tablet 800 mg PO TID RF: 0 pantoprazole 40 mg tablet,delayed release (DR/EC) 40 mg PO BID RF: 0 ferrous sulfate [iron] 325 mg (65 mg iron) Tablet 325 mg PO DAILY RF: 0 cholecalciferol (vitamin D3) [Vitamin D3] 50 mcg (2,000 unit) Capsule 50 mcg PO DAILY RF: 0 venlafaxine 225 mg tablet extended release 24hr 225 mg PO DAILY RF: 0 Discharge Instructions Additional Instructions: Care after Gallbladder Surgery -You should walk frequently, gradually, increasing the distance. You may climb stairs, just go slowly. -MEDICATIONS: For the first 72 hours after surgery, alternate Tylenol 1000mg by mouth every 8 hours and Ibuprofen 600mg every 6 hours. Make sure you take ibuprofen with food and not on an empty stomach. Take the Tylenol and ibuprofen continuously for the first 72hrs- not just when you have pain. Use the tramadol for breakthrough pain. Use ICE! Twenty minutes on, and then off, continuously for the first 72hours. After the first 72hrs, you can just use Tylenol or ibuprofen when you have pain. If you are taking narcotic pain medication, follow the instructions on the label and do not drive. Pain medications can make you very constipated. Make sure you are moving your bowels daily. If not, take Miralax, milk of magnesia or magnesium citrate. Anesthesia makes you very constipated. Take a dose of milk of magnesia the morning after surgery. ? Use an ice bag for the first 72 hours. This helps to decrease swelling, which causes pain. It is normal to be more sore/painful and swollen towards the end of the day and first thing in the morning. ? Gallbladder surgery can make you very nauseated; use Zofran for nausea, for the first 24 hours. The nausea generally stops after 24 hours. ? Use milk of magnesia or prune juice to prevent constipation (this is a particular side effect of pain medication and anesthesia). Do not allow yourself to become constipated. ? Avoid fatty or greasy foods; introduce these slowly, with care, after about 1 month. Follow the low-fat diet sheet that will be given to you at the office or hospital. ? Start out eating very small, bland amounts of food. Do not take pain pills on an empty stomach. - You will notice purple discoloration around the incisions. This is the ?skin glue?. This will wear off on its own. It is OK to shower after 24hrs. You do not need to cover the incisions. ? Do not go swimming or sit in a hot tube for two weeks. ? There are no stitches to remove. ? Do not drive your car x72hrs and then only if you have no pain and can move freely. Do not drive if you are taking pain narcotic pain medications. ? You may resume sexual activity whenever pain and soreness subside, usually in 2 weeks. ? Do no lift anything over 5 lbs. for two weeks. ? You may return to work in one week, or when you feel able, provided you do not have to do any heavy lifting or prolonged standing. ? You should return to Dr. Coe?s office for a post-op appointment about one week after surgery. Please call the Surgical Clinic at: [phone] to schedule an appointment. My Medications for pain and nausea are: ibuprofen and ultram and zofran When to Call the Office: ? If the incision becomes red or swollen, or there is more than a little drainage from it. ? If you develop a temperature higher than 100.5 F. ? If your eyes turn yellow ? Vomiting and can?t keep fluids down Stand Alone Forms: Nursing Discharge Form Referrals: Krystin Coe DO [OSTEOPATHIC DOCTOR] - 01/07/21 9:00 am Activity:: see above Equipment/Supplies:: No Equipment Needed Diet:: Carb Counting DS: Summary Time Spent with Patient providing and/or coordinating discharge services: Greater than 30 minutes Status at Discharge Functional status at discharge: independent ambulation Overall status at discharge: patient is back to baseline Mental Status: mental status grossly normal Speech and Movement: speech and movement normal Mood: congruent mood Affect: normal affect Exam Psych Mental Status: mental status grossly normal Speech and Movement: speech and movement normal Mood: congruent mood Affect: normal affect DS: Data Vitals/I&O Vitals and I&O: Vital Signs Temperature 36.2 C L 12/23/20 07:49 Temperature Source Tympanic 12/23/20 07:49 Pulse 74 12/23/20 07:49 Pulse Rhythm Regular 12/23/20 05:00 Respiratory Rate 20 12/23/20 07:49 Respiratory Effort Non-Labored 12/23/20 05:00 Respiratory Depth Normal 12/23/20 05:00 Respiratory Pattern Normal 12/23/20 05:00 Blood Pressure 161/83 H 12/23/20 07:49 Pulse Oximetry 95 12/23/20 07:49 Respiratory End-tidal CO2 34 12/22/20 13:55 Oxygen Delivery Method Room Air 12/23/20 07:49 Oxygen Flow Rate 0 12/23/20 07:49 Pain Level 7 12/23/20 06:27 Comment 12/22/20 14:15 Intake & Output 12/22/20 12/22/20 12/23/20 11:59 23:59 11:59 Intake Total 700 / 2120 1420 / 2120 1185.417 / 1185.417 Output Total 550 / 550 1000 / 1000 Balance 700 / 1570 870 / 1570 185.417 / 185.417 Weight 114.1 kg Intake: IV 700 / 1999 1300 / 2000 985.417 / 985.417 Oral 120 / 120 200 / 200 Output: Urine 550 / 550 1000 / 1000 Other: Urine Color Pale Yellow Yellow Yellow Light Samantha Light Samantha Urine Appearance Clear Clear Clear Urine Odor Normal Emesis Description None None Voiding Methods Bedside Commode [facility] Medical History Abnormality of penis (11/18/14) Alcoholic cirrhosis of liver without ascites Anxiety (07/16/14) Benign neoplasm of colon (08/15/11) BPH (benign prostatic hyperplasia) Chest pain Per pt. this was related to when he had gastric bypass he had scarring over his esophagus, and it wasn't cardiac in nature Degenerative cervical spinal stenosis (12/23/14) Depression (07/16/14) Diabetes mellitus type II, uncontrolled Elevated bilirubin Erectile dysfunction (06/19/14) Gallbladder sludge GERD (gastroesophageal reflux disease) Hyperlipidemia (05/16/13) Hypertension Liver cirrhosis secondary to nonalcoholic steatohepatitis (HERR) Non-insulin dependent type 2 diabetes mellitus Obesity (BMI 35.0-39.9 without comorbidity) Sensorineural hearing loss, bilateral (01/06/17) Surgical History bunionectomy (07/18/14) Left Dr Márquez H/O gastric bypass 2009 History of colonoscopy (~10/30/20) History of esophagogastroduodenoscopy (EGD) (~10/30/20) Repair of inguinal hernia Repair, ACL Rotator Cuff Repair S/P gastric bypass Family History Mother Alzheimer disease Social History Smoking/Tobacco Use Status: Former Tobacco Use Quit Date: 07/10/85 Smoking risk assessment performed?: Yes Alcohol Intake: former Substance use type: does not use Do you feel safe at home: Yes Additional Social history: lives with Tahmina in [facility]
[2020-12-23] MEDS: Milk of Magnesia 30 ML CUP PO (09:13)
[2020-12-23] MEDS: Normal Saline Flush 10 ML SYR IV (10:32)
[2020-12-23] MEDS: traMADol 50 MG TAB PO (13:22)
[2020-12-23] MEDS: Simethicone 80 MG CHEW PO ×3 (13:43→20:42)
--- NOTE | 2020-12-23 14:38 | CHAPLAIN ---
Yung was resting in bed when I visited. He was on the phone with this , but spoke to be briefly. I explained my role and offered support. He was not interested in further conversation.
[2020-12-23 15:03] VITALS: BP 124/76; PULSE 78; RESP 19; TEMP 37; O2SAT 95
[2020-12-23 16:37] LABS: Bilirubin Negative (Negative); Blood Negative (Negative); Clarity Clear (Clear); Glucose 100 mg/dL (Negative); Ketones Negative (Negative); Leukocyte Esterase Negative (Negative); Nitrite Negative (Negative); Specific Gravity 1.015 (1.005-1.025); Urobilinogen 0.2 EU/dL (Up TO 0.2)
--- NOTE | 2020-12-23 17:45 | RT.EKG_ITS ---
APPROVED REPORT Exam: Resting ECG Reason for Exam: chest pain Patient Location: I HR:93 bpm ECG Measurements Heart Rate 93 AXIS ID 167 P 43 QRSd 96 QRS -2 QT 343 T 30 QTc 426 Conclusion Sinus rhythm...normal P axis, V-rate 60- 99
--- NOTE | 2020-12-23 18:13 | W.PM.DS.N ---
DS: Diagnosis Discharge Diagnosis (1) Gallstones without obstruction of gallbladder: Status: Acute Discharge Plan Disposition Patient Disposition: HOME Condition: Good Discharge Details Reason For Visit: S/P Lap Skyla Admit Date/Time: 12/22/20 12:00 Admit Provider: Krystin Coe Attending Provider: Krystin Coe [facility] Course: pt underwent lap skyla form chronic gb/stones. Postop he is done well. He is up walking. He is tolerating clear liquids. Home Meds and New Rx's Prescriptions: New oxycodone 5 mg tablet 5 mg PO Q6H PRNQty: 14 RF: 0 docusate sodium [Colace] 100 mg capsule 100 mg PO BID Qty: 60 RF: 0 Continued albuterol sulfate 90 mcg/actuation HFA aerosol inhaler 1 inh inhalation PRNRF: 0 metformin [Glucophage] 1,000 MG tablet 1,000 mg PO BID RF: 0 diclofenac sodium [Voltaren Arthritis Pain] 1 % gel 2 g topical QID Qty: 50 RF: 0 aspirin 81 MG tablet,delayed release (DR/EC) 81 mg PO DAILY RF: 0 tamsulosin [Flomax] 0.4 mg capsule 0.4 mg PO HS RF: 0 Trulicity 0.75 mg/0.5 mL pen injector 0.75 mg SUBCUT QWEEK RF: 0 glipizide 10 mg tablet extended release 24hr 10 mg PO BID RF: 0 lisinopril 20 mg tablet 20 mg PO DAILY RF: 0 gabapentin 800 mg tablet 800 mg PO TID RF: 0 pantoprazole 40 mg tablet,delayed release (DR/EC) 40 mg PO BID RF: 0 ferrous sulfate [iron] 325 mg (65 mg iron) Tablet 325 mg PO DAILY RF: 0 cholecalciferol (vitamin D3) [Vitamin D3] 50 mcg (2,000 unit) Capsule 50 mcg PO DAILY RF: 0 venlafaxine 225 mg tablet extended release 24hr 225 mg PO DAILY RF: 0 Discharge Instructions Additional Instructions: Care after Gallbladder Surgery -You should walk frequently, gradually, increasing the distance. You may climb stairs, just go slowly. -MEDICATIONS: For the first 72 hours after surgery, alternate Tylenol 1000mg by mouth every 8 hours and Ibuprofen 600mg every 6 hours. Make sure you take ibuprofen with food and not on an empty stomach. Take the Tylenol and ibuprofen continuously for the first 72hrs- not just when you have pain. Use the tramadol for breakthrough pain. Use ICE! Twenty minutes on, and then off, continuously for the first 72hours. After the first 72hrs, you can just use Tylenol or ibuprofen when you have pain. If you are taking narcotic pain medication, follow the instructions on the label and do not drive. Pain medications can make you very constipated. Make sure you are moving your bowels daily. If not, take Miralax, milk of magnesia or magnesium citrate. Anesthesia makes you very constipated. Take a dose of milk of magnesia the morning after surgery. ? Use an ice bag for the first 72 hours. This helps to decrease swelling, which causes pain. It is normal to be more sore/painful and swollen towards the end of the day and first thing in the morning. ? Gallbladder surgery can make you very nauseated; use Zofran for nausea, for the first 24 hours. The nausea generally stops after 24 hours. ? Use milk of magnesia or prune juice to prevent constipation (this is a particular side effect of pain medication and anesthesia). Do not allow yourself to become constipated. ? Avoid fatty or greasy foods; introduce these slowly, with care, after about 1 month. Follow the low-fat diet sheet that will be given to you at the office or hospital. ? Start out eating very small, bland amounts of food. Do not take pain pills on an empty stomach. - You will notice purple discoloration around the incisions. This is the ?skin glue?. This will wear off on its own. It is OK to shower after 24hrs. You do not need to cover the incisions. ? Do not go swimming or sit in a hot tube for two weeks. ? There are no stitches to remove. ? Do not drive your car x72hrs and then only if you have no pain and can move freely. Do not drive if you are taking pain narcotic pain medications. ? You may resume sexual activity whenever pain and soreness subside, usually in 2 weeks. ? Do no lift anything over 5 lbs. for two weeks. ? You may return to work in one week, or when you feel able, provided you do not have to do any heavy lifting or prolonged standing. ? You should return to Dr. Coe?s office for a post-op appointment about one week after surgery. Please call the Surgical Clinic at: [phone] to schedule an appointment. My Medications for pain and nausea are: ibuprofen and ultram and zofran When to Call the Office: ? If the incision becomes red or swollen, or there is more than a little drainage from it. ? If you develop a temperature higher than 100.5 F. ? If your eyes turn yellow ? Vomiting and can?t keep fluids down Stand Alone Forms: Nursing Discharge Form Referrals: Krystin Coe DO [OSTEOPATHIC DOCTOR] - 01/07/21 9:00 am Activity:: see above Equipment/Supplies:: No Equipment Needed Diet:: Carb Counting DS: Summary Time Spent with Patient providing and/or coordinating discharge services: Greater than 30 minutes Status at Discharge Functional status at discharge: independent ambulation Overall status at discharge: patient is back to baseline Mental Status: mental status grossly normal Speech and Movement: speech and movement normal Mood: congruent mood Affect: normal affect Exam Psych Mental Status: mental status grossly normal Speech and Movement: speech and movement normal Mood: congruent mood Affect: normal affect DS: Data Vitals/I&O Vitals and I&O: Vital Signs Temperature 37.0 C 12/23/20 15:03 Temperature Source Tympanic 12/23/20 15:03 Pulse 78 12/23/20 15:03 Pulse Rhythm Regular 12/23/20 05:00 Respiratory Rate 19 12/23/20 15:03 Respiratory Effort Non-Labored 12/23/20 05:00 Respiratory Depth Normal 12/23/20 05:00 Respiratory Pattern Normal 12/23/20 05:00 Blood Pressure 124/76 12/23/20 15:03 Pulse Oximetry 95 12/23/20 15:03 Respiratory End-tidal CO2 34 12/22/20 13:55 Oxygen Delivery Method Room Air 12/23/20 15:03 Oxygen Flow Rate 0 12/23/20 15:03 Pain Level 6 12/23/20 15:03 Comment 12/22/20 14:15 Intake & Output 12/22/20 12/23/20 12/23/20 23:59 11:59 23:59 Intake Total 1420 / 2120 1995.417 / 2475.417 480 / 2475.417 Output Total 550 / 550 1625 / 3225 1600 / 3225 Balance 870 / 1570 370.417 / -749.583 -1120 / -749.583 Intake: IV 1300 / 2000 985.417 / 985.417 Oral 120 / 120 1010 / 1490 480 / 1490 Output: Urine 550 / 550 1625 / 3225 1600 / 3225 Other: Urine Color Yellow Yellow Yellow Light Samantha Urine Appearance Clear Clear Clear Urine Odor Normal None None Emesis Description None Voiding Methods Bedside Commode Urinal Urinal Data Completed and Pending Labs on day of discharge: Labs from last 24 hours 12/23/20 12/23/20 18:02 11:30 Troponin I Pending Urine Color Yellow Urine Clarity Clear Urine pH 6.0 Ur Specific [place] 1.015 Urine Protein Negative Urine Ketones Negative Urine Blood Negative Urine Nitrite Negative Urine Bilirubin Negative Urine Urobilinogen 0.2 Ur Leukocyte Esterase Negative Urine Glucose 100 PFSH Medical History Abnormality of penis (11/18/14) Alcoholic cirrhosis of liver without ascites Anxiety (07/16/14) Benign neoplasm of colon (08/15/11) BPH (benign prostatic hyperplasia) Chest pain Per pt. this was related to when he had gastric bypass he had scarring over his esophagus, and it wasn't cardiac in nature Degenerative cervical spinal stenosis (12/23/14) Depression (07/16/14) Diabetes mellitus type II, uncontrolled Elevated bilirubin Erectile dysfunction (06/19/14) Gallbladder sludge GERD (gastroesophageal reflux disease) Hyperlipidemia (05/16/13) Hypertension Liver cirrhosis secondary to nonalcoholic steatohepatitis (HERR) Non-insulin dependent type 2 diabetes mellitus Obesity (BMI 35.0-39.9 without comorbidity) Sensorineural hearing loss, bilateral (01/06/17) Surgical History bunionectomy (07/18/14) Left Dr Márquez H/O gastric bypass 2009 History of colonoscopy (~10/30/20) History of esophagogastroduodenoscopy (EGD) (~10/30/20) Repair of inguinal hernia Repair, ACL Rotator Cuff Repair S/P gastric bypass Family History Mother Alzheimer disease Social History Smoking/Tobacco Use Status: Former Tobacco Use Quit Date: 07/10/85 Smoking risk assessment performed?: Yes Alcohol Intake: former Substance use type: does not use Do you feel safe at home: Yes Additional Social history: lives with Tahmina in [facility]
[2020-12-23 18:29] LABS: Troponin I < 0.05 ng/mL (<0.06)
--- NOTE | 2020-12-23 19:54 | INITIAL_ITS ---
- If Service Date Differs Date of service: 12/23/20 Time of Service: 10:00 Care Management Initial Assess REASON FOR HOSPITALIZATION:: Lap Skyla PAST MEDICAL HISTORY/PAST SURGICAL HISTORY:: Medical History . Abnormality of penis (11/18/14). Alcoholic cirrhosis of liver without ascites. Anxiety (07/16/14). Benign neoplasm of colon (08/15/11). BPH (benign prostatic hyperplasia). Chest pain. Per pt. w galilea this was related to when he had gastric bypass he had scarring over his esophagus, and it wasn't cardiac in nature. Degenerative cervical spinal stenosis (12/23/14). Depression (07/16/14). Diabetes mellitus type II, uncontrolled. Elevated bilirubin. Erectile dysfunction (06/19/14). Gallbladder sludge. GERD (gastroesophageal reflux disease). Hyperlipidemia (05/16/13). Hypertension. Liver cirrhosis secondary to nonalcoholic steatohepatitis (HERR). Non-insulin dependent type 2 diabetes mellitus. Obesity (BMI 35.0-39.9 without comorbidity). Sensorineural hearing loss, bilateral (01/06/17). Surgical History . bunionectomy (07/18/14). Left. Dr Márquez. H/O gastric bypass. 2009. History of colonoscopy (~10/30/20). History of esophagogastroduodenoscopy (EGD) (~10/30/20). Repair of inguinal hernia. Repair, ACL. Rotator Cuff Repair. S/P gastric bypass PREVIOUS FUNCTIONAL STATUS/SOCIAL/FAMILY SUPPORTS:: Yung resides in a single family homer in [facility] with his Tahmina. This is the second marriage for both. He has a daughter that lives in [place]. He uses a CPAP and tries to be as active as he can. Yung is disabled due to shoulder and back injuries acquired at work. He enjoys hunting, snow mobiling and his sled dogs. He is independent and has no other services in the home. CURRENT FUNCTIONAL STATUS:: Yung was sitting up in bed when CM met with him. He engaged readily with CM, known to him from previous hospitalizations. Yung stated that his pain was not well controlled and that he was having difficulty voiding. These issues are being addressed and may require another night in the hospital. ADVANCE DIRECTIVES:: none on file Has patient been provided with info about the portal/API?: Yes Did the patient sign up for the portal?: No CODE STATUS:: Full Code INSURANCE COVERAGE / FINANCIAL ISSUES:: Medicare. [facility] CURRENT HOME/COMMUNITY SERVICES/EQUIPMENT:: none PRIMARY CARE PHYSICIAN:: Yung Horn POTENTIAL DISCHARGE NEEDS:: follow up with surgeon and PCP PATIENT/FAMILY EDUCATION NEEDS:: Review of Discharge instructions, medications, limitations, Ask Me Three TRANSPORTATION:: via private vehicle with family PLAN:: Yung will be discharged home with no new services. He will follow up with his PCP, surgeon and plan of care and transport with family.
--- NOTE | 2020-12-23 20:17 | NUR.NOTE ---
Nursing Note: At about 19:05, pt presented with 8/10 pain in upper abdomen d/t bending over to try to tie my shoe. Pt was sitting up on the edge of the bed stating It hurts so bad. I feel like I'm going to pass out. Vital signs were taken: BP 166/97 HR 96 RR 18 O2 95% on RA 8/10 sharp pain No temp taken, however pt had been afebrile all day. Trocar sites checked; all 4 were LOAD CHECKER, C/D/I, well approximated with no discharge. Charge nurse notified; notified who cancelled pt's discharge for this evening and requests only PO pain medication to be given.
[2020-12-23] MEDS: Acetaminophen 500 MG TAB 1000 MG PO (20:35)
[2020-12-23] MEDS: Tamsulosin 0.4 MG CAPCR PO (20:35)
[2020-12-23 23:44] VITALS: BP 125/75; PULSE 79; RESP 18; TEMP 36.6; O2SAT 91
[2020-12-24 07:32] VITALS: BP 121/74; PULSE 91; RESP 18; TEMP 37.2; O2SAT 93
[2020-12-24] MEDS: Gabapentin 800 MG TAB PO (07:34)
[2020-12-24] MEDS: Docusate Sodium 100 MG CAP PO (07:34)
[2020-12-24] MEDS: Venlafaxine 37.5 MG CAPCR 75 MG PO (07:34)
[2020-12-24] MEDS: Venlafaxine 150 MG CAPCR PO (07:34)
[2020-12-24] MEDS: Lisinopril 20 MG TAB PO (07:34)
[2020-12-24] MEDS: Acetaminophen 500 MG TAB 1000 MG PO (07:35)
[2020-12-24] MEDS: Pantoprazole 40 MG TABCR PO (07:35)
[2020-12-24] MEDS: Insulin Aspart 300 UNITS/3 ML PEN SC (07:40)
[2020-12-24] MEDS: Simethicone 80 MG CHEW PO (09:47)
--- NOTE | 2020-12-24 10:03 | PDOC.CMDIS ---
- If Service Date Differs Date of service: 12/24/20 Time of Service: 10:04 LACE Index Scoring Tool - Questions: Length of Stay (in days): 2 Acuity (Admit via E.D.?): No Comorbidities: Diabetes w/o Complication E.D. Visits: 6 - Answers: Total Score: 7 Risk of Readmission: Low Risk Care Management Discharge Reason for Hospitalization: Lap Skyla Discharge Plan: Yung will be discharged home with no new services. He will follow up with his PCP, surgeon and plan of care and transport with family. Patient/Family Education Needs: Review of Discharge instructions, medications, limitations, Ask Me Three
== END 2020-12-24 10:00 | disposition home or self-care (01) | DRG 418 ==
LOC: MS 13:55
PROVIDERS: Admitting Provider Surgery; PCP Family Medicine; Visit Provider Surgery
PROC: 0FT44ZZ Resection of Gallbladder, Percutaneous Endoscopic Approach (ICD-10-PCS; CPT 47562; principal; 2020-12-22 10:15)
DX: K82.8 Other specified diseases of gallbladder (principal); K95.89 Other complications of other bariatric procedure; K80.20 Calculus of gallbladder without cholecystitis without obstruction; I10 Essential (primary) hypertension; E78.5 Hyperlipidemia, unspecified; K21.9 Gastro-esophageal reflux disease without esophagitis; E66.9 Obesity, unspecified; Z68.36 Body mass index [BMI] 36.0-36.9, adult; E11.9 Type 2 diabetes mellitus without complications; Z79.84 Long term (current) use of oral hypoglycemic drugs; M48.02 Spinal stenosis, cervical region; K70.30 Alcoholic cirrhosis of liver without ascites; F41.9 Anxiety disorder, unspecified; N40.0 Benign prostatic hyperplasia without lower urinary tract symptoms; H90.3 Sensorineural hearing loss, bilateral
CPT/HCPCS: 47562; 99220; 81003; 84484; 88304; 88307; 93005; 93010; 94667; J0690; J1100; J1885; J2001; J2270; J2370; J2405; J2704; J3010

== ENCOUNTER → 2021-01-07 09:07 | Outpatient (BNVA) | payer MEDICARE, OTHER, SELFPAY | PROVIDERS: PCP Family Medicine; Referring Provider Family Medicine; Visit Provider Surgery | DX: Z48.815 Encounter for surgical aftercare following surgery on the digestive system (principal); Z90.49 Acquired absence of other specified parts of digestive tract ==

== ENCOUNTER → 2021-07-12 13:55 | Outpatient (BNVA) | payer MEDICARE, OTHER, SELFPAY | PROVIDERS: PCP Family Medicine; Referring Provider Family Medicine; Visit Provider Surgery | DX: R13.10 Dysphagia, unspecified (principal); K91.89 Other postprocedural complications and disorders of digestive system; R53.1 Weakness; R06.02 Shortness of breath; I10 Essential (primary) hypertension; K21.9 Gastro-esophageal reflux disease without esophagitis; E11.65 Type 2 diabetes mellitus with hyperglycemia; E11.9 Type 2 diabetes mellitus without complications | CPT/HCPCS: 99213; 99214 ==

== ENCOUNTER 2021-07-19 19:41 | Emergency (ER) | payer MEDICARE, OTHER, SELFPAY ==
[2021-07-19 19:44] VITALS: BP 121/86; PULSE 76; RESP 17; TEMP 36; O2SAT 99
--- NOTE | 2021-07-19 19:45 | DI.RAD_ITS ---
Exam(s) XR FOREARM LT EXAM: XR FOREARM LT CLINICAL HISTORY: pain and swelling after dog bite TECHNIQUE: COMPARISON: No exams were available for comparison FINDINGS: Two views were obtained. There is soft tissue swelling of the mid forearm. There is no evidence of underlying bony abnormality. IMPRESSION: RADIATION DOSE DELIVERED: Total DLP
--- NOTE | 2021-07-19 19:54 | ED.GENADUL_ITS ---
Discharge Plan Disposition Patient Disposition: HOME Condition: Improving Discharge Details Clinical Impression: Dog bite of left forearm Primary Care Provider: Yung Horn ED Provider: Robert Apple Home Meds and New Rx's Prescriptions: New amoxicillin-pot clavulanate 875-125 mg tablet 1 tab PO BID 7 Days Qty: 14 RF: 0 Continued albuterol sulfate 90 mcg/actuation HFA aerosol inhaler 1 inh inhalation PRNRF: 0 metformin [Glucophage] 1,000 MG tablet 1,000 mg PO BID RF: 0 diclofenac sodium [Voltaren Arthritis Pain] 1 % gel 2 g topical QID Qty: 50 RF: 0 aspirin 81 MG tablet,delayed release (DR/EC) 81 mg PO DAILY RF: 0 tamsulosin [Flomax] 0.4 mg capsule 0.4 mg PO HS RF: 0 Trulicity 0.75 mg/0.5 mL pen injector 0.75 mg SUBCUT QWEEK RF: 0 glipizide 10 mg tablet extended release 24hr 10 mg PO BID RF: 0 lisinopril 20 mg tablet 20 mg PO DAILY RF: 0 gabapentin 800 mg tablet 800 mg PO TID RF: 0 pantoprazole 40 mg tablet,delayed release (DR/EC) 40 mg PO BID RF: 0 ferrous sulfate [iron] 325 mg (65 mg iron) Tablet 325 mg PO DAILY RF: 0 cholecalciferol (vitamin D3) [Vitamin D3] 50 mcg (2,000 unit) Capsule 50 mcg PO DAILY RF: 0 venlafaxine 225 mg tablet extended release 24hr 225 mg PO DAILY RF: 0 oxycodone 5 mg tablet 5 mg PO Q6H PRNQty: 14 RF: 0 Discharge Instructions Instructions: Animal Bite (ED) Additional Instructions: Take antibiotics as prescribed. Return if you have increasing swelling, redness, or develop fever and chills. May use Tylenol as needed for discomfort. Medical Decision Making 65-year-old male states he was bitten by his immunized dog at home earlier today when 2 of the dogs were fighting over some food. Over the day he developed left forearm swelling and discomfort at the site of the bites. He now presents for evaluation. Patient's tetanus is out of date & updated. He is referred for x- ray to rule out retained foreign body. X-ray is unremarkable. Patient started on Augmentin. Wounds were cleansed. He will be discharged with a prescription for Augmentin and strict instructions to seek return for worsening. He is stable and appropriate for outpatient management at this time. HPI General Mode of arrival: ambulatory . Date/Time Provider Initiated Documentation: 07/19/21 19:42 . Limitations to Documentation: no limitations . Information obtained by: patient . History of Present Illness 65 year old M presents to the emergency department with the chief complaint of Left forearm dog bite earlier today, described as moderate, Quality is described as dull and constant, and is localized to the left and upper extremity. Patient reports no radiation. Patient started experiencing this hour(s) and it has been constant. No relieving factors improve symptom(s), No exacerbating factors reported . Patient notes denies fever/chills and rash. Patient did receive the following treatments prior to arrival, none Related Data Home Medications Medication Instructions Recorded Confirmed aspirin 81 mg PO DAILY 05/26/17 07/19/21 metformin [Glucophage] 1,000 mg PO BID 11/27/17 07/19/21 Trulicity 0.75 mg SUBCUT QWEEK 07/01/20 07/19/21 tamsulosin [Flomax] 0.4 mg PO HS 07/01/20 07/19/21 cholecalciferol (vitamin D3) 50 mcg PO DAILY 07/02/20 07/19/21 [Vitamin D3] ferrous sulfate [iron] 325 mg PO DAILY 07/02/20 07/19/21 gabapentin 800 mg PO TID 07/02/20 07/19/21 glipizide 10 mg PO BID 07/02/20 07/19/21 lisinopril 20 mg PO DAILY 07/02/20 07/19/21 pantoprazole 40 mg PO BID 07/02/20 07/19/21 venlafaxine 225 mg PO DAILY 07/02/20 07/19/21 albuterol sulfate 90 mcg/actuation 1 inh INHALATION PRN 09/18/20 07/13/21 aerosol inhaler diclofenac sodium [Voltaren 2 g TOPICAL QID #50 g 11/13/20 07/19/21 Arthritis Pain] oxycodone 5 mg PO Q6H PRN #14 tab 12/23/20 07/19/21 amoxicillin-pot clavulanate 1 tab PO BID 7 Days #14 tab 07/19/21 Previous Rx's Medication Instructions Recorded diclofenac sodium [Voltaren 2 g TOPICAL QID #50 g 11/13/20 Arthritis Pain] oxycodone 5 mg PO Q6H PRN #14 tab 12/23/20 amoxicillin-pot clavulanate 1 tab PO BID 7 Days #14 tab 07/19/21 Allergies Allergy/AdvReac Type Severity Reaction Status Date / Time adhesive Allergy Intermediate blisters Unverified 07/19/21 19:53 General Stated Complaint: AnimalBite NASIMA: 4 Review of Systems Narrative: Tetanus last updated July 2014. Patient has otherwise been well. His dogs are immunized. He was not injured in any other way. 6 systems reviewed and otherwise negative PFSH All Active Problems (Updated 07/19/21 @ 20:03 by Robert Apple MD) Dog bite of left forearm (Acute) Chest pain (Acute) Dysphagia (Chronic) Anastomotic stricture of gastrojejunostomy (Acute) Weakness with dizziness (Acute) Shortness of breath at rest (Acute) Anastomotic stricture of gastrojejunostomy (Acute) SOB (shortness of breath) (Acute) Fall (Acute) Other sprain of right shoulder joint, initial encounter (Acute) Cellulitis of foot, right (Acute) Foot pain, right (Acute) Hypertension (Acute) Hyperlipidemia (Acute 05/16/13) GERD (gastroesophageal reflux disease) (Acute) Obesity (BMI 35.0-39.9 without comorbidity) (Acute) Diabetes mellitus type II, uncontrolled (Chronic) S/P gastric bypass (Chronic) Alcoholic cirrhosis of liver without ascites (Chronic) 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 this was related to when he had gastric bypass he had scarring over his esophagus, and it wasn't cardiac in nature Depression (07/16/14) Elevated bilirubin Erectile dysfunction (06/19/14) Sensorineural hearing loss, bilateral (01/06/17) Surgical History bunionectomy (07/18/14) Left Dr Márquez H/O gastric bypass 2009 History of colonoscopy (~10/30/20) History of esophagogastroduodenoscopy (EGD) (~10/30/20) Repair of inguinal hernia Repair, ACL Rotator Cuff Repair S/P gastric bypass Family History Mother Alzheimer disease Social History Smoking/Tobacco Use Status: Former Tobacco Use Quit Date: 07/10/85 Smoking risk assessment performed?: Yes Alcohol Intake: former Substance use type: does not use Do you feel safe at home: Yes Do you feel safe in your relationship?: Yes Additional Social history: lives with Tahmina in [place] Exam Narrative Exam Narrative: GEN: awake, alert, oriented 3. Pleasant, well groomed, interactive. HEAD: Normocephalic, atraumatic EYES: PERRL, EOMI NECK: Full ROM, no SHANIA, no menigismus CHEST/RESP: No respiratory distress EXT: Full ROM, approximately 10 small puncture wounds of left forearm from hand to elbow. There is mid left forearm tenderness and swelling with discrete warm felt. Neuro: Grossly normal neurologic exam, conversant, interactive. Psych: Speech fluent, thoughts congruent, affect normal Course Vital Signs Vital signs: Vital Signs Temperature 36.0 C L 07/19/21 19:44 Pulse 76 07/19/21 19:44 Respiratory Rate 17 07/19/21 19:44 Blood Pressure 121/86 07/19/21 19:44 Pulse Oximetry 99 07/19/21 19:44 Temperature 36.0 C L 07/19/21 19:44 Temperature Source Temporal Artery Scan 07/19/21 19:44 Pulse 76 07/19/21 19:44 Respiratory Rate 17 07/19/21 19:44 Respiratory Effort Non-Labored 07/19/21 19:48 Blood Pressure 121/86 07/19/21 19:44 Blood Pressure Position Sitting 07/19/21 19:44 Pulse Oximetry 99 07/19/21 19:44 Pain Level 5 07/19/21 19:44 Comment 07/19/21 19:44
[2021-07-19] MEDS: Tetanus & Diphtheria Tox,ADULT 0.5 ML VIAL IM (20:09)
[2021-07-19] MEDS: Amoxicillin 875/Clav. 125 TAB PO (20:09)
--- NOTE | 2021-07-19 20:26 | NUR.NOTE ---
Animal bite form faxed to [phone]. Call to Kareem Tomas [facility] Health Officer at [phone]. Message left asking for a call back to Emergency Dept. to report animal bite.Nursing Note:
--- NOTE | 2021-07-19 20:32 | DI.VRAD_ITS ---
PROCEDURE INFORMATION: Exam: XR Left Forearm Exam date and time: 07/19/2021 7:55 PM Age: 65 years old Clinical indication: Injury or trauma; Arm, lower; Left; Injury date: 07/19/20; Injury details: Pain and swelling after dog bite posterior forearm TECHNIQUE: Imaging protocol: XR Left forearm. Views: 2 views. COMPARISON: No relevant prior studies available. FINDINGS: Bones/joints: Normal. Soft tissues: There is soft tissue swelling inferiorly on the lateral film. This could correspond to the patient's soft tissue injury. Vasculature: There are vascular calcifications. IMPRESSION: Vascular calcifications. Soft tissue swelling as above. Dictated and Authenticated by: Jose Roque MD. Ordering:ELAINA Jones MD
--- NOTE | 2021-07-19 20:32 | NUR.NOTE ---
Kareem Tomas returned phone call and animal bite was reported.Nursing Note:
== END 2021-07-19 20:34 | disposition home or self-care (01) ==
PROVIDERS: Emergency Provider Emergency Medicine; PCP Family Medicine
DX: S51.852A Open bite of left forearm, initial encounter (principal); W54.0XXA Bitten by dog, initial encounter
CPT/HCPCS: 90471; 99284; 73090; 99283

== ENCOUNTER 2021-08-11 03:08 | Outpatient (CLI) | payer MEDICARE, SELFPAY ==
[2021-08-11 12:00] LABS: Source Nasal/Nares
[2021-08-11 16:13] LABS: COVID-19 PCR Negative (Negative)
== END 2021-08-11 03:09 | disposition home or self-care (01) ==
LOC: LBO 03:09
PROVIDERS: PCP Family Medicine; Visit Provider Surgery
DX: Z20.822 Contact with and (suspected) exposure to COVID-19 (principal)
CPT/HCPCS: 87635

== ENCOUNTER 2021-08-13 06:55 | Day surgery (SDC) | payer MEDICARE, SELFPAY ==
--- NOTE | 2021-08-12 10:18 | ENDO_ITS ---
Date of service: 08/13/21 Endoscopy Report DATE OF PROCEDURE: 08/13/21 PRE-OP DIAGNOSIS: G-J anastomasis stricture POST-OP DIAGNOSIS: other (hiatal hernia) SURGEON: Krystin Coe ANESTHESIA TYPE: General:No Airway ESTIMATED BLOOD LOSS: 0 PATHOLOGY: other COMPLICATIONS: None PROCEDURE DESCRIPTION: After informed consent was obtained the patient was take to the procedure room and placed in a supine position. Monitors were applied and a time out was done. The patients name, date of , procedure type, allergies to medications and metal in their body was reviewed. A bite block was placed and the patient was sedated. Once sedated and comfortable the gastroscope was advanced through the oropharynx which was grossly normal into the esophagus. The proximal and mid-esophagus were nl. In the distal esophagus there was no esophageal erosions varices diverticula or stricture. He has had gastric bypass with micro pouch. And he is able to easily pass the scope down into the G gastrojejunal anastomosis. There is no sign of stricturing at this time. There were no gastritis or ulcers. The scope was retroflexed. He does have a very patulous hiatus. The scope was retracted back into the esophagus and biopsies were done of the GE junction to rule out Ramirez's. The Z line was regular. The GE junction was at 38 cm. The scope was removed and the patient was woken up and taken back to [facility] in stable condition. Continue with lifestyle modifications: no alcohol, tobacco products, Aspirin or NSAID's (ibuprofen, Motrin, Naprosyn, aleve, etc), soda pop/any carbonated beverages, caffeine (including tea & chocolate), and acidic foods, (tomatoes, citrus, onions, peppermints) spicy or fried/fatty foods. Do not lie down for 30 minutes after eating, and do not eat 2 hours prior to bedtime. Avoid wearing tight fitting clothing/ belts pulmonary rehab- note was sent to Dr. Horn
--- NOTE | 2021-08-12 10:19 | PDOC.DSDIS_ITS ---
Discharge Plan Disposition Patient Disposition: HOME Condition: Good Discharge Details Reason For Visit: EGD Attending Provider: Krystin Coe Primary Care Provider: Yung Horn Home Meds and New Rx's Prescriptions: No Action albuterol sulfate 90 mcg/actuation HFA aerosol inhaler 1 inh inhalation DAILY RF: 0 metformin [Glucophage] 1,000 MG tablet 1,000 mg PO BID RF: 0 diclofenac sodium [Voltaren Arthritis Pain] 1 % gel 2 g topical QID Qty: 50 RF: 0 aspirin 81 MG tablet,delayed release (DR/EC) 81 mg PO DAILY RF: 0 tamsulosin [Flomax] 0.4 mg capsule 0.4 mg PO HS RF: 0 Trulicity 0.75 mg/0.5 mL pen injector 0.75 mg SUBCUT QWEEK RF: 0 glipizide 10 mg tablet extended release 24hr 10 mg PO BID RF: 0 gabapentin 800 mg tablet 800 mg PO TID RF: 0 pantoprazole 40 mg tablet,delayed release (DR/EC) 40 mg PO BID RF: 0 ferrous sulfate [iron] 325 mg (65 mg iron) Tablet 325 mg PO DAILY RF: 0 cholecalciferol (vitamin D3) [Vitamin D3] 50 mcg (2,000 unit) Capsule 50 mcg PO DAILY RF: 0 venlafaxine 225 mg tablet extended release 24hr 225 mg PO DAILY RF: 0 Discharge Instructions Additional Instructions: DSU Colonoscopy Post- Op Instructions Instructions for Everyone who is given Anesthesia: For your safety, please do the following for the next twenty-four (24) hours: *Do Not operate a motor vehicle (car, truck, motorcycle, etc.) *Do Not drink alcoholic beverages or use any recreational drugs for the first 24 hours or while taking pain medications. The medications in your body may have a reaction that can be dangerous. *Do Not make any important decisions or sign any important papers. Findings: no stricture today hiatal hernia -you can only eat small amounts of food at a time. No more than a cup total. If you eat more than that- you will get reflux and chest pain. -Continue with lifestyle modifications: no alcohol, tobacco products, Aspirin or NSAID's (ibuprofen, Motrin, Naprosyn, aleve, etc), soda pop/any carbonated beverages, caffeine (including tea & chocolate), and acidic foods, (tomatoes, citrus, onions, peppermints) spicy or fried/fatty foods. Do not lie down for 30 minutes after eating, and do not eat 2 hours prior to bedtime. Avoid wearing tight fitting clothing/ belts -make sure that you eat some food before you take the asa and iron. Don't take them on an empty stomach. Follow up: repeat as needed 1. No lifting over 20 pounds or strenuous activity for the first 24 hours after your procedure. After 24 hours there are no restrictions on your activity but you may feel fatigued for a few days. 2. After you arrive home you may have a light meal and return to your normal diet as you can tolerate it without feeling sick to your stomach. 3. You may have a bloated, gaseous feeling in your belly (abdomen) after a colonoscopy. Passing gas and belching will help. Walking or lying down on your left side with your knees flexed may relieve the discomfort. Call the office at [phone] (Office) or [phone] (Hospital) right away if you notice any of the following: a.Vomiting of blood or ?coffee ground stools?. b.Rectal bleeding 1Tbsp, blood clots or continuous bleeding. c.Severe belly (abdominal) pain. d.A hard distended belly (abdomen) and an inability to pass gas. 4. Please don?t expect to have a normal BM (bowel movement) for 2-3 days after your procedure. 5. If there are questions regarding the findings of your procedure, please contact your doctor 6. If you are unable to contact your doctor with a problem, contact the hospital at [phone]. 7. Continue all your regular medications unless directed otherwise. I understand the above instructions and have no questions. Signature of Patient or Adult Escort Name of Responsible Adult Escort Signature of Nurse Date/Time Activity:: see above Diet:: see above Discharge Orders Discharge Orders: Discharge Order (Routine); Ordered 08/12/21 Ordered By: Krystin Coe DS: Diagnosis Discharge Diagnosis (1) Anastomotic stricture of gastrojejunostomy: Status: Acute
--- NOTE | 2021-08-12 14:22 | W.ANESPOSTOP ---
Postoperative Evaluation Date, Time and Location Date Performed: 08/12/21 Time Performed: 14:22 Patient Location: Day Surgery Unit Vital Signs Most Recent Manually Entered Vital Signs: Adult Blood Pressure: 114/65 Heart Rate: 55 Respirations: 19 Oxygen Saturation (%): 96 Temperature (C): 36.3 C Pain Score (0-10 Scale): 0 Assessment Mental Status: Awake (Alert & Oriented to Patient Baseline) Airway and Respiratory Function: Patent airway with normal (patient baseline) respiratory exam Cardiovascular Function: Hemodynamically Stable Hydration Status: Adequately Hydrated Nausea & Vomiting: No Nausea or Vomiting Pain: Pt. Denies Any Pain Peripheral Nerve Block: Regional nerve block not resolved at time of post operative discharge
[2021-08-12 14:29] VITALS: BP 114/65; PULSE 55; RESP 19; TEMPC 36.3; O2SAT 96
[2021-08-13 07:14] VITALS: BP 133/76; PULSE 86; RESP 22; TEMP 36.3; O2SAT 96
--- NOTE | 2021-08-13 07:25 | W.ANESPRE ---
General Info Date of Service Date Performed: 08/13/21 Height: 5 ft 10 in Weight: 114.5 kg Body Mass Index (BMI): 36.2 Surgical Procedure: Operation Date: 08/13/21 07:35 Proposed Procedures Side Surgeon p Gastroscopy with possible Dilation Krystin Coe, Actual Procedures Side Surgeon p Gastroscopy with possible Dilation Not Applicable Krystin Coe, Pre-Op Diagnosis Post-Op Diagnosis (1) Dysphagia: (2) Anastomotic stricture of gastrojejunostomy Meds Allergies and Home Medications Allergies Allergy/AdvReac Type Severity Reaction Status Date / Time adhesive Allergy Intermediate blisters Verified 08/13/21 07:09 Home Medication Medication Instructions Recorded aspirin 81 mg PO DAILY 05/26/17 metformin [Glucophage] 1,000 mg PO BID 11/27/17 Trulicity 0.75 mg SUBCUT QWEEK 07/01/20 tamsulosin [Flomax] 0.4 mg PO HS 07/01/20 cholecalciferol (vitamin D3) 50 mcg PO DAILY 07/02/20 [Vitamin D3] ferrous sulfate [iron] 325 mg PO DAILY 07/02/20 gabapentin 800 mg PO TID 07/02/20 glipizide 10 mg PO BID 07/02/20 pantoprazole 40 mg PO BID 07/02/20 venlafaxine 225 mg PO DAILY 07/02/20 albuterol sulfate 90 mcg/actuation 1 inh INHALATION DAILY 09/18/20 aerosol inhaler diclofenac sodium [Voltaren 2 g TOPICAL QID #50 g 11/13/20 Arthritis Pain] Current Visit Medications: Current Medications Generic Name Dose Route Start Last Admin Trade Name Freq PRN Reason Stop Dose Admin Hyoscyamine Sulfate 0.125 mg 08/12/21 10:17 Hyoscyamine 0.125 Mg Sl/Oral/Chew SL DIRECTED PRN Ringer's Solution 1,000 mls @ 80 mls/hr 08/13/21 06:00 IV 09/06/21 23:59 INFUSION [facility] IV Miscellaneous Supplies 1 each 08/13/21 06:00 Iv Access IV 09/06/21 23:59 DIRECTED [facility] Ondansetron HCl 4 mg 08/12/21 10:17 Ondansetron 4 Mg/2 Ml Vial IVP Q4H PRN PRN Nausea / Vomiting Sodium Chloride 0 ml 08/13/21 06:00 Normal Saline Flush 10 Ml Syr IV 09/06/21 23:59 PRN PRN Sodium Chloride 0 ml 08/13/21 06:00 Normal Saline 10 Ml Vial IJ 09/06/21 23:59 DIRECTED PRN Sterile Water 0 ml 08/13/21 06:00 Water,Injection,Sterile 10 Ml Vial IJ 09/06/21 23:59 DIRECTED PRN PFSH Active Problems Active Problems: Problem Status Onset Code Dog bite of left forearm S51.852A, W54.0XXA Chest pain R07.9 Dysphagia R13.10 Anastomotic stricture of gastrojejunostomy K91.89 Weakness with dizziness R53.1, R42 Shortness of breath at rest R06.02 Anastomotic stricture of gastrojejunostomy K91.89 SOB (shortness of breath) R06.02 Fall W19.XXXA Other sprain of right shoulder joint, initial encounter S43.491A Cellulitis of foot, right L03.115 Foot pain, right M79.671 Hypertension I10 Hyperlipidemia 05/16/13 E78.5 GERD (gastroesophageal reflux disease) K21.9 Obesity (BMI 35.0-39.9 without comorbidity) E66.9 Diabetes mellitus type II, uncontrolled E11.65 S/P gastric bypass Z98.84 Alcoholic cirrhosis of liver without ascites K70.30 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 this was related to when he had gastric bypass he had scarring over his esophagus, and it wasn't cardiac in nature Depression (07/16/14) Elevated bilirubin Erectile dysfunction (06/19/14) Sensorineural hearing loss, bilateral (01/06/17) Surgical History Surgical History (Updated 08/13/21 @ 07:39 by Orlando Grover) bunionectomy (07/18/14) Left Dr Márquez H/O gastric bypass 2009 History of colonoscopy (~10/30/20) History of esophagogastroduodenoscopy (EGD) (~10/30/20) Hx of cholecystectomy Hx of total knee replacement Bilateral. Repair of inguinal hernia Repair, ACL Rotator Cuff Repair Tobacco Smoking/Tobacco Use Status: Former Tobacco Use Alcohol Alcohol Intake: former Substance Use Substance use: Never Substance use type: does not use Vital Signs and Lab Results Vital Signs Most Recent Vital Signs in EMR: Most Recent Vital Signs Temp Pulse Resp BP Pulse Ox 36.3 C L 86 22 133/76 96 08/13/21 07:14 08/13/21 07:14 08/13/21 07:14 08/13/21 07:14 08/13/21 07:14 Lab Results Blood Type / Crossmatch: No Data to Display Complete Blood Count: No Data to Display Complete Metabolic Panel: No Data to Display Liver Function Panel: No Data to Display Coagulation Panel: No Data to Display Cardiac Panel: No Data to Display Arterial Blood Gas: No Data to Display Venous Blood Gas: No Data to Display Pancreas Panel: No Data to Display Thyroid Panel: No Data to Display Infectious Disease: Coronavirus (COVID-19)(PCR) Negative (Negative) 08/11/21 09:08 08/11/21 Coronavirus 2019 Source Nasal/Nares 08/11/21 09:08 08/11/21 Blood Cultures: No Data to Display Toxicology Panel: No Data to Display Imaging and Studies Imaging and Studies Study information below may be from another EMR and interpreted by another provider. Please see original notes in EMR for more complete details. EKG Summary: DATE/TIME OF SERVICE: 08/19/20 Conclusion Sinus rhythm...normal P axis, V-rate 60- 99 Stress Test Summary: Date of study: 11/11/2016 Impressions: Normal perfusion by [id number] Sestamibi Imaging. Echocardiogram Summary: Date of study: 11/29/2016 Summary: 1. Left ventricle: The cavity size was normal. There was mild asymmetric hypertrophy of the septum. Systolic function was normal. The estimated ejection fraction was 55-60%. Wall motion was normal; there were no regional wall motion abnormalities. 2. Mitral valve: There was mild regurgitation. 3. Right ventricle: The cavity size was normal. Wall thickness was normal. Systolic function was normal. 4. Pulmonary arteries: Pulmonary systolic pressure was increased, in the range of 35mm Hg to 40mm Hg. Pulmonary Function Summary: Date of service: 08/03/20 Time of Service: 08:03 Pulmonary Function Test Result Interpretation Spirometry: Shows no evidence of obstructive airways disease, no bronchodilator response Lung Volumes: No evidence of restriction Diffusion Capacity: Mildly reduced, this is normal when corrected to alveolar volume. This also represents a somewhat suboptimal patient effort Airway Pressure: Normal Impression Overall, normal pulmonary function study the slightly low diffusion capacity is likely due to suboptimal patient effort for that maneuver when the study was compared to previous 1 from 05/08/2017 diffusion capacity is slightly lower but is stable when corrected to alveolar volume FVC had asked 680 cc decline, FEV1 had declined by 560 cc both pre and postbronchodilator spirometry efforts were poor Clinical Correlation therefore is recommended. Anesthesia Assessment and Plan Anesthesia History Personal History: No History of Anesthesia Complications Family History: No Family History of Anesthesia Complications Exercise Tolerance Exercise Tolerance: Metabolic Equivalents<4 Pertinent Negatives Pertinent Negatives: No Symptoms of GERD Cardiac & Pulmonary Exam Cardiac Exam: Normal S1/S2 Heart Sounds Pulmonary Exam: Clear Bilateral Breath Sounds Implantable Cardiac Device Does patient have a Pacemaker or an ICD?: No Airway Exam Known Difficult Airway: No Mallampati Class: 2 Mouth Opening: Normal (> 3cm) Thyromental Distance: Less than 3 cm Neck Range of Motion: Full ROM Neck Circumference: Normal Teeth Condition: Normal Dentition ASA Classification ASA Score: ASA 3 Emergency Case?: No NPO Status NPO Status: NPO Clears >2 hours, Solids >8 hours Anesthesia Plan Resuscitation Status: Full Code Anesthesia Technique: General Anesthesia Airway Planned: Natural Airway Monitors Used: Standard Monitors
[2021-08-13] MEDS: Lactated Ringers 1,000 ML 80 ML IV (07:38)
[2021-08-13 07:42] VITALS: BMI 36.2
--- NOTE | 2021-08-13 07:47 | W.PM.HP.N ---
Date of service: 08/13/21 Time of Service: 07:48 Assessment and Plan Assessment and plan (1) Dysphagia: Status: Chronic (2) Non-insulin dependent type 2 diabetes mellitus: Status: Acute (3) GERD (gastroesophageal reflux disease): Status: Acute (4) Hypertension: Status: Acute (5) Obesity (BMI 35.0-39.9 without comorbidity): Status: Acute (6) Hyperlipidemia: Status: Acute (7) Degenerative cervical spinal stenosis: Status: Chronic (8) Liver cirrhosis secondary to nonalcoholic steatohepatitis (HERR): Status: Acute (9) Alcoholic cirrhosis of liver without ascites: Status: Chronic (10) S/P gastric bypass: Status: Chronic (11) Anastomotic stricture of gastrojejunostomy: Status: Acute Assessment and plan: Informed consent is obtained for the procedural (explained in simple layman's terms that the pt and/or family could understand) explaining risks vs benefits and alternatives to the procedure and consequences if we do not do the procedure and need/rational for the procedure. Risks include but are not limited to: bleeding, infection, perforation of esophagus, stomach, colon, small intestines, bronchus or trachea, or PTX. This would necessitate emergency surgery to repair the damage w/ possible ostomy; and other associated complications w/ the required surgery. Also complications of anesthesia including aspiration, IA/CVA/. (12) Shortness of breath at rest: Status: Acute History of Present Illness Narrative: pt notes he is still having some trouble with swallowing, chicken is one thing he can think of that gets caught. Pt has a hx of stenosis at his gastro-jejunal anastomosis after micro pouch/ gastric bypass Pt has a long standing hx of LINTON. last stress echo was 01/26. at [facility]. LINTON in past has been atributted to obesity/poor exercise tolerance. Today, he is c/o sob at rest. He c/o early satiety and feels bloated/feels like food is not going down. His wt is up. Patient did see cardiology at [facility] and felt that his symptoms were unchanged and he required no further evaluation and he would be safe for repeat endoscopy. Patient does report today that he has been getting a lot of heartburn and indigestion and feels like things are getting stuck. He is off all potential procoagulants including aspirin/NSAIDs/vitamin D/vitamin D/fish oil. He understands he needs to stay on clear liquids for 24 hours and the risks of perforation associated with this procedure and the risks of cardiac or pulmonary complications from anesthesia and wishes to proceed. Review of Systems Constitutional Comments: Currently at rest he has no chest pain or shortness of breath. He has no fevers or cough. He has no nausea or vomiting. Heart is regular rate and rhythm. Lungs are clear to auscultation bilaterally. He has nonpitting lower extremity edema. He has no open sores on his extremities or breakdown on his coccyx. PFSH All Active Problems (Updated 08/13/21 @ 07:53 by Krystin Coe DO) Chest pain (Acute) Dysphagia (Chronic) Non-insulin dependent type 2 diabetes mellitus (Acute) GERD (gastroesophageal reflux disease) (Acute) Hypertension (Acute) Obesity (BMI 35.0-39.9 without comorbidity) (Acute) Hyperlipidemia (Acute 05/16/13) Degenerative cervical spinal stenosis (Chronic 12/23/14) Liver cirrhosis secondary to nonalcoholic steatohepatitis (HERR) (Acute) Alcoholic cirrhosis of liver without ascites (Chronic) S/P gastric bypass (Chronic) Diabetes mellitus type II, uncontrolled (Chronic) Anastomotic stricture of gastrojejunostomy (Acute) Weakness with dizziness (Acute) Shortness of breath at rest (Acute) SOB (shortness of breath) (Acute) Fall (Acute) Other sprain of right shoulder joint, initial encounter (Acute) Cellulitis of foot, right (Acute) Foot pain, right (Acute) Dog bite of left forearm (Acute) Medical History 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 this was related to when he had gastric bypass he had scarring over his esophagus, and it wasn't cardiac in nature Depression (07/16/14) Elevated bilirubin Erectile dysfunction (06/19/14) Sensorineural hearing loss, bilateral (01/06/17) Surgical History bunionectomy (07/18/14) Left Dr Márquez H/O gastric bypass 2009 History of colonoscopy (~10/30/20) History of esophagogastroduodenoscopy (EGD) (~10/30/20) Hx of cholecystectomy Hx of total knee replacement Bilateral. Repair of inguinal hernia Repair, ACL Rotator Cuff Repair Family History Mother Alzheimer disease Social History Smoking/Tobacco Use Status: Former Tobacco Use Quit Date: 07/10/85 Smoking risk assessment performed?: Yes Alcohol Intake: former Drug use: Never Substance use type: does not use Additional Social history: unable to assess [employer] Allergies and Home Medications Allergies Allergy/AdvReac Type Severity Reaction Status Date / Time adhesive Allergy Intermediate blisters Verified 08/13/21 07:09 Home Medications Medication Instructions Recorded Confirmed Type aspirin 81 mg PO DAILY 05/26/17 08/10/21 History metformin [Glucophage] 1,000 mg PO BID 11/27/17 08/13/21 History Trulicity 0.75 mg SUBCUT QWEEK 07/01/20 08/10/21 History tamsulosin [Flomax] 0.4 mg PO HS 07/01/20 08/13/21 History cholecalciferol (vitamin D3) 50 mcg PO DAILY 07/02/20 08/10/21 History [Vitamin D3] ferrous sulfate [iron] 325 mg PO DAILY 07/02/20 08/13/21 History gabapentin 800 mg PO TID 07/02/20 08/13/21 History glipizide 10 mg PO BID 07/02/20 08/13/21 History pantoprazole 40 mg PO BID 07/02/20 08/10/21 History venlafaxine 225 mg PO DAILY 07/02/20 08/13/21 History albuterol sulfate 90 mcg/actuation 1 inh INHALATION DAILY 09/18/20 08/10/21 History aerosol inhaler diclofenac sodium [Voltaren 2 g TOPICAL QID #50 g 11/13/20 08/10/21 Rx Arthritis Pain] Results Last Vital Signs Temp 36.3 C L 08/13/21 07:14 Pulse 86 08/13/21 07:14 Resp 22 08/13/21 07:14 BP 133/76 08/13/21 07:14 Pulse Ox 96 08/13/21 07:14
--- NOTE | 2021-08-13 08:16 | ESO_PTH ---
PATIENT: Yung Betancur LOC: [facility] U#:[id number] AGE/SX: 65/M ROOM: RE08/13/[address]: Krystin Coe : 1955 BED: DIS: 08/13/2021 SPEC #: [id number] RECD: 08/13/21 12:07 STATUS: ROBER RERuthie #: [id number] JI: 08/13/21 08:[address]: Krystin Coe DEPT: Surgical Specimen RECD BY: Mary Hall ENTERED: 08/13/21 12:07 SP TYPE: Eso OTHR DR: Yung Horn Tissues: 1 - ESOPHAGUS BIOPSY Procedures: GROSS AND MICRO LEVEL 4 Comments: [id number]
[2021-08-13 08:22] VITALS: BP 132/83; PULSE 74; RESP 16; TEMP 36.4; O2SAT 95
[2021-08-13 08:55] VITALS: BP 167/97; PULSE 79; RESP 18; TEMP 36.6; O2SAT 96
--- NOTE | 2021-08-13 09:01 | W.ANESPOSTOP ---
Postoperative Evaluation Date, Time and Location Date Performed: 08/13/21 Time Performed: 09:01 Patient Location: Day Surgery Unit Vital Signs Most Recent Imported Vital Signs: Most Recent Vital Signs Temp Pulse Resp BP Pulse Ox 36.6 C 79 18 167/97 H 96 08/13/21 08:55 08/13/21 08:55 08/13/21 08:55 08/13/21 08:55 08/13/21 08:55 Pain Score Most Recent Pain Score: Most Recent Pain Score Pain Level 0 08/13/21 08:55 Assessment Mental Status: Awake (Alert & Oriented to Patient Baseline) Airway and Respiratory Function: Patent airway with normal (patient baseline) respiratory exam Cardiovascular Function: Hemodynamically Stable Hydration Status: Volume Overload (See Note) Nausea & Vomiting: No Nausea or Vomiting Pain: Pt. Denies Any Pain Peripheral Nerve Block: Patient did not receive a nerve block
== END 2021-08-13 09:30 | disposition home or self-care (01) ==
PROVIDERS: PCP Family Medicine; Visit Provider Surgery
PROC: 0D758ZZ Dilation of Esophagus, Via Natural or Artificial Opening Endoscopic (ICD-10-PCS; CPT 43239; principal; 2021-08-13 07:30)
DX: K21.9 Gastro-esophageal reflux disease without esophagitis (principal); K44.9 Diaphragmatic hernia without obstruction or gangrene; E11.9 Type 2 diabetes mellitus without complications; I10 Essential (primary) hypertension; E66.9 Obesity, unspecified; E78.5 Hyperlipidemia, unspecified; K75.81 Nonalcoholic steatohepatitis (NASH); Z98.84 Bariatric surgery status
CPT/HCPCS: 43239; 88305; J2704

== ENCOUNTER 2021-09-29 14:32 | Emergency (ER) | payer MEDICARE, SELFPAY ==
[2021-09-29 14:45] VITALS: BP 143/85; PULSE 80; RESP 16; TEMP 37; O2SAT 97
--- NOTE | 2021-09-29 15:00 | DI.CT_ITS ---
Exam(s) CT HEAD WO EXAM: CT HEAD WO CLINICAL HISTORY: fall 5 days ago, HUA, fatigue. TECHNIQUE: Imaging Protocol: Axial computed tomography images with coronal and sagittal reformatted images were created and reviewed COMPARISON: MR MR BRAIN WO from 07/02/[address] HEAD CERVICAL SPINE WO from 10/24/2020 FINDINGS: There are no skull fractures nor fluid in the visualized paranasal sinuses. There is no evidence of intracranial hemorrhage, mass effect, or shift of midline structures. There are no extra-axial fluid collections. The ventricles are not enlarged or shifted and there is no blo od within the ventricular system nor within the basal cisterns. There masses noted in both parotid glands, partially included in field view. On the right side this measures 3.7 cm AP x 3 cm wide. IMPRESSION: No acute intracranial findings on this noninfused CT scan of the brain. However, there appear to be masses in both parotid glands which are only partially included field of view of this study.. Appropriate follow-up. RADIATION DOSE DELIVERED: 844.54mGy.cm Total DLP DATA REPOSITORY: All CT scans at this facility are submitted to the National Radiology Data Registry (NRDR) Dose Index Registry (DIR) with the [employer] (ACR). RADIATION OPTIMIZATION: All CT scans at this facility use at least one of these dose optimization te chniques: automated exposure control; mA and/or kV adjustment per patient size (includes targeted exa ms where dose is matched to clinical indication); or iterative reconstruction.
--- NOTE | 2021-09-29 15:00 | DI.CT_ITS ---
Exam(s) CT LUMBAR SPINE WO EXAM: CT LUMBAR SPINE WO CLINICAL HISTORY: fall 5 days ago, pain lumbar spine. TECHNIQUE: Imaging Protocol: Axial computed tomography images with coronal and sagittal reformatted images were created and reviewed COMPARISON: No exams were available for comparison FINDINGS: Bones: There are no fractures, listhesis, nor pars defects. There are no lytic osseous lesions evide nt. Chronic-type disc space narrowing noted at L5-S1 level. No significant facet malalignment. INDIVIDUAL LEVELS: T12-L1:No disc herniation nor canal stenosis. Facet joints unremarkable. No foraminal stenosis. L1-2: No disc herniation nor canal stenosis. Facet joints unremarkable. No foraminal stenosis. L2-3: No disc herniation nor canal stenosis. Central canal dimensions are lower normal. Facet join ts unremarkable. No Foraminal stenosis L3-4: No disc herniation nor canal stenosis. Mild annular bulging. Central canal dimensions lower n ormal. No foraminal stenosis. No prominent facet arthropathy. L4-5: Broad annular bulging noted. There may also be a superimposed disc here, difficult to assess on this study. There is moderate-severe central spinal canal stenosis. No significant foraminal gabbie nosis. No prominent facet arthropathy L5-S1: This level exhibits chronic disc space narrowing. No prominent disc herniation nor central c anal stenosis. There is, however, mild-moderate bilateral vertical foraminal stenosis which is direc tly related to the disc height loss at this level. The visualized sacroiliac joints and sacrum appear unremarkable. PARASPINAL SOFT TISSUES: Visualized paraspinal tissues appear unremarkable. The right of the bladder is a reservoir 4 penile implant device IMPRESSION: 1. No evidence of fracture or listhesis in the lumbar spine. 2. There is spinal canal stenosis most evident at L4-5 level. 3. Other findings as above RADIATION DOSE DELIVERED: 1,043.06mGy.cm Total DLP DATA REPOSITORY: All CT scans at this facility are submitted to the National Radiology Data Registry (NRDR) Dose Index Registry (DIR) with the [employer] (ACR). RADIATION OPTIMIZATION: All CT scans at this facility use at least one of these dose optimization te chniques: automated exposure control; mA and/or kV adjustment per patient size (includes targeted exa ms where dose is matched to clinical indication); or iterative reconstruction.
--- NOTE | 2021-09-29 15:45 | DI.RAD_ITS ---
Exam(s) XR HAND LT COMPLETE EXAM: XR HAND LT COMPLETE CLINICAL HISTORY: injury, pain 5th mcp. TECHNIQUE: 2D digital imaging was performed. COMPARISON: No exams were available for comparison FINDINGS: 3 views There is acute angulated fracture proximal half of the proximal phalanx of 5th finger. Fracture line does not appear to extend into metacarpophalangeal joint. No other fractures identified. No radiop aque body. For many the base of the 5th metacarpal is probably related healed fracture site. There are advanced degenerative changes 1st carpometacarpal evident. IMPRESSION: Proximal phalanx fracture in 5th finger some angulation. No obvious articular involvement. DATA REPOSITORY: RADIATION DOSE DELIVERED:
--- NOTE | 2021-09-29 16:06 | ED.GENADUL_ITS ---
Discharge Plan Disposition Patient Disposition: HOME Condition: Stable Discharge Details Clinical Impression: Mass of both parotid glands, Closed fracture of phalanx of left ring finger Primary Care Provider: Yung Horn ED Provider: Wally Ascencio Home Meds and New Rx's Prescriptions: Continued albuterol sulfate 90 mcg/actuation HFA aerosol inhaler 1 inh inhalation DAILY 0RF metformin [Glucophage] 1,000 MG tablet 1,000 mg PO BID 0RF diclofenac sodium [Voltaren Arthritis Pain] 1 % gel 2 g topical QID Qty: 50 0RF Rx Instructions: apply to single elbow, wrist or hand; for hand includes palm/fingers/back of hand aspirin 81 MG tablet,delayed release (DR/EC) 81 mg PO DAILY 0RF tamsulosin [Flomax] 0.4 mg capsule 0.4 mg PO HS 0RF Label Comments: TAKE 1 CAPSULE BY MOUTH DAILY AT BEDTIME FOR URINATION glipizide 10 mg tablet extended release 24hr 10 mg PO BID 0RF Label Comments: TK 2 TS PO D FOR BS gabapentin 800 mg tablet 800 mg PO TID 0RF Label Comments: TAKE 1 TABLET BY MOUTH THREE TIMES DAILY FOR PAIN pantoprazole 40 mg tablet,delayed release (DR/EC) 40 mg PO BID 0RF Label Comments: TK 1 T PO BID venlafaxine 225 mg tablet extended release 24hr 225 mg PO DAILY 0RF Label Comments: TAKE 1 TABLET BY MOUTH EVERY DAY Discharge Instructions Instructions: Finger Fracture (ED) Additional Instructions: Incidentally noted on CT imaging were masses in parotid glands. Please follow this up with your primary care physician for additional outpatient diagnostic testing. Talk to your doctor about this as soon as possible. Please keep finger splint intact and dry. Follow-up with orthopedics. Please take ibuprofen over the counter. Take 600mg by mouth every 6 hours as needed for pain. Please contact your primary care physician to arrange follow-up. Return to the ER immediately for any worsening or new concerning symptoms. Referrals: [facility] [Provider Group] Yung Horn [Primary Care Provider] - Medical Decision Making 65yo male here 5 days after fall with injury to his left hand, head and low back. Hand x-ray reviewed and interpreted by me: Fracture base of the fifth proximal phalanx. CT head interpreted by radiology: No acute injury, concern for bilateral parotid masses. CT lumbar spine was interpreted by radiology: No acute injury All results were discussed with the patient. He was encouraged to follow-up outpatient regarding incidental finding noted in parotid glands. He understands importance of timely follow-up. Patient had mild angulation of his fifth digit fracture. I reduce the fracture by pulling gentle traction and aligning it with his fourth finger. Fracture was splinted with dameon tape to fifth finger and aluminum volar splint was applied. Plan will be for outpatient follow-up with orthopedic surgery. Imaging Data Radiologic Study: Imaging: CT Scan (head) Radiologist's impression: IMPRESSION: No acute intracranial findings on this noninfused CT scan of the brain. However, there appear to be masses in both parotid glands which are only partially included field of view of this study..? Appropriate follow-up. Radiologic Study #2: Imaging: CT Scan (lumbar spine) Radiologist's impression: FINDINGS: Bones:? There are no fractures, listhesis, nor pars defects. There are no lytic osseous lesions evident. Chronic-type disc space narrowing noted at L5-S1 level.? No significant facet malalignment. INDIVIDUAL LEVELS: T12-L1:No disc herniation nor canal stenosis. Facet joints unremarkable.? No foraminal stenosis. L1-2:? No disc herniation nor canal stenosis.? Facet joints unremarkable.? No foraminal stenosis. L2-3:? No disc herniation nor canal stenosis.? Central canal dimensions are lower normal.? Facet joints unremarkable.? No Foraminal stenosis L3-4:? No disc herniation nor canal stenosis. Mild annular bulging.? Central canal dimensions lower normal.? No foraminal stenosis.? No prominent facet arthropathy. L4-5:? Broad annular bulging noted.? There may also be a superimposed disc here, difficult to assess on this study.? There is moderate-severe central spinal canal stenosis.? No significant foraminal stenosis.? No prominent facet arthropathy ? L5-S1:? This level exhibits chronic disc space narrowing.? No prominent disc herniation nor central canal stenosis.? There is, however, mild-moderate bilateral vertical foraminal stenosis which is directly related to the disc height loss at this level. The visualized sacroiliac joints and sacrum appear unremarkable. PARASPINAL SOFT TISSUES: Visualized paraspinal tissues appear unremarkable. The right of the bladder is a reservoir 4 penile implant device IMPRESSION: 1. No evidence of fracture or listhesis in the lumbar spine. 2. There is spinal canal stenosis most evident at L4-5 level. 3. Other findings as above Radiologic Study #3: Imaging: X-Ray (rt hand) Radiologist's impression: IMPRESSION: Proximal phalanx fracture in 5th finger some angulation.? No obvious articular involvement. HPI General Mode of arrival: ambulatory . Date/Time Provider Initiated Documentation: 09/29/21 15:04 . Limitations to Documentation: no limitations . Information obtained by: patient . HPI Narrative: 65yo m presents with chief complaint of left hand pain. Patient notes that he fell 5 days ago from standing to the ground when attempting to move a heavy object. He impacted his head and also injured his left hand and low back. Pain in hand is moderate and worse on palpation and with movement of left 5th digit. Patient notes continued headache frontal and also fatigue. Pain is low back is localized to low mid lumbar spine. Related Data Home Medications Medication Instructions Recorded Confirmed aspirin 81 mg tablet,delayed 81 mg PO DAILY 05/26/17 09/29/21 release metformin 1,000 mg tablet 1,000 mg PO BID 11/27/17 09/29/21 (Glucophage) tamsulosin 0.4 mg capsule (Flomax) 0.4 mg PO HS 07/01/20 09/29/21 gabapentin 800 mg tablet 800 mg PO TID 07/02/20 09/29/21 glipizide 10 mg tablet, extended 10 mg PO BID 07/02/20 09/29/21 release 24 hr pantoprazole 40 mg tablet,delayed 40 mg PO BID 07/02/20 09/29/21 release venlafaxine 225 mg tablet,extended 225 mg PO DAILY 07/02/20 09/29/21 release 24 hr albuterol sulfate 90 mcg/actuation 1 inh INHALATION DAILY 09/18/20 09/29/21 aerosol inhaler diclofenac sodium 1 % topical gel 2 g TOPICAL QID #50 g 11/13/20 09/29/21 (Voltaren Arthritis Pain) Previous Rx's Medication Instructions Recorded diclofenac sodium 1 % topical gel 2 g TOPICAL QID #50 g 11/13/20 (Voltaren Arthritis Pain) Allergies Allergy/AdvReac Type Severity Reaction Status Date / Time adhesive Allergy Intermediate blisters Verified 09/29/21 14:55 General Stated Complaint: Orthopedic NASIMA: 3 Review of Systems All systems reviewed & are unremarkable except as noted in HPI and below Cardiovascular Cardiovascular: Denies chest pain and Denies dyspnea Respiratory Respiratory: Denies dyspnea Musculoskeletal Musculoskeletal: Reports as per HPI Neurologic Comments: No numbness, tingling, weakness or bowel or bladder dysfunction PFSH All Active Problems (Updated 09/29/21 @ 17:05 by Wally Ascencio MD) Mass of both parotid glands (Acute) Closed fracture of phalanx of left ring finger (Acute) Hiatal hernia (Chronic) Chest pain (Acute) Dysphagia (Chronic) Non-insulin dependent type 2 diabetes mellitus (Acute) GERD (gastroesophageal reflux disease) (Acute) Hypertension (Acute) Obesity (BMI 35.0-39.9 without comorbidity) (Acute) Hyperlipidemia (Acute 05/16/13) Degenerative cervical spinal stenosis (Chronic 12/23/14) Liver cirrhosis secondary to nonalcoholic steatohepatitis (HERR) (Acute) Alcoholic cirrhosis of liver without ascites (Chronic) S/P gastric bypass (Chronic) Diabetes mellitus type II, uncontrolled (Chronic) Anastomotic stricture of gastrojejunostomy (Acute) Weakness with dizziness (Acute) Shortness of breath at rest (Acute) SOB (shortness of breath) (Acute) Fall (Acute) Other sprain of right shoulder joint, initial encounter (Acute) Cellulitis of foot, right (Acute) Foot pain, right (Acute) Medical History (Updated 09/29/21 @ 17:05 by Wally Ascencio MD) 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 this was related to when he had gastric bypass he had scarring over his esophagus, and it wasn't cardiac in nature Depression (07/16/14) Elevated bilirubin Erectile dysfunction (06/19/14) Sensorineural hearing loss, bilateral (01/06/17) Surgical History (Updated 08/13/21 @ 09:33 by Luz rTevino RN) bunionectomy (07/18/14) Left Dr Márquez H/O gastric bypass 2009 History of colonoscopy (~10/30/20) History of esophagogastroduodenoscopy (EGD) (~08/13/21) 10/30/20 Hx of cholecystectomy Hx of total knee replacement Bilateral. Repair of inguinal hernia Repair, ACL Rotator Cuff Repair Family History Mother Alzheimer disease Social History Smoking/Tobacco Use Status: Former Tobacco Use Quit Date: 07/10/85 Smoking risk assessment performed?: Yes Alcohol Intake: former Drug use: Never Substance use type: does not use Do you feel safe at home: Yes Do you feel safe in your relationship?: Yes Exam Const General: cooperative and no acute distress [facility] Head: normocephalic, atraumatic, no Horn's sign, no hematomas and no raccoon eyes Mouth: moist mucous membranes Eyes Alignment and Position: alignment normal Pupils: PERRL EOM: EOM intact bilaterally Neck Neck: normal visual inspection, no lymphadenopathy, trachea midline, supple, no anterior neck swelling, nontender and No submandibular swelling Resp Effort & Inspection: normal respiratory effort Auscultation: clear to auscultation bilaterally, no rales, no rhonchi and no wheezes Cardio Rate: regular rate and not tachycardic Rhythm: regular rhythm GI Palpation: soft, not firm, no guarding, no masses, not rigid and nontender Back/Spine/Pelvis Cervical Spine: cervical ROM normal, No cervical spinal tenderness and No step off deformity Thoracic/Lumbar Spine: No thoracic spinal tenderness and lumbar spinal tenderness Skin General skin exam: no rashes or lesions noted Neuro General: patient alert, patient awake, patient oriented x3 and tone normal Cognition: normal cognition Speech: speech normal Gait: normal gait Motor: strength 5/5 throughout Sensory Exam: no sensory deficits noted Extrem General: no edema Left upper extremity: hand Details: normal capillary refill, neuromotor exam normal, neurosensory exam normal and tenderness Location: of the 5th digit Location: at the MCP joint and at the proximal phalanx Psych Appearance: grossly normal Mental Status: mental status grossly normal Speech and Movement: speech and movement normal Course Vital Signs Vital signs: Vital Signs Temperature 37.0 C 09/29/21 14:45 Pulse 80 09/29/21 14:45 Respiratory Rate 16 09/29/21 14:45 Blood Pressure 143/85 H 09/29/21 14:45 Pulse Oximetry 97 09/29/21 14:45 Temperature 37.0 C 09/29/21 14:45 Temperature Source Temporal Artery Scan 09/29/21 14:45 Pulse 80 03/23/22 14:45 Respiratory Rate 16 09/29/21 14:45 Respiratory Effort Non-Labored 09/29/21 14:50 Blood Pressure 143/85 H 09/29/21 14:45 Blood Pressure Position Supine 09/29/21 14:45 Pulse Oximetry 97 09/29/21 14:45 Oxygen Delivery Method Room Air 09/29/21 14:45 Oxygen Flow Rate 0 09/29/21 14:45 Pain Level 6 09/29/21 14:52
== END 2021-09-29 17:14 | disposition home or self-care (01) ==
PROVIDERS: Emergency Provider Student in an Organized Health Care Education/Training Program; PCP Family Medicine
DX: K11.8 Other diseases of salivary glands (principal); S62.615A Displaced fracture of proximal phalanx of left ring finger, initial encounter for closed fracture; M54.59 Other low back pain; R51.9 Headache, unspecified; W01.0XXA Fall on same level from slipping, tripping and stumbling without subsequent striking against object, initial encounter
CPT/HCPCS: 26725; 99284; 70450; 72131; 73130; 99283

== ENCOUNTER 2021-10-05 08:20 | Outpatient (CLI) | payer MEDICARE, SELFPAY ==
--- NOTE | 2021-10-05 08:15 | DI.RAD_ITS ---
Exam(s) XR HAND LT COMPLETE EXAM: XR HAND LT COMPLETE CLINICAL HISTORY: left ring finger fx. TECHNIQUE: 2D digital imaging was performed of the left hand. Three views were obtained. AP, later al and oblique views were obtained. COMPARISON: CR XR HAND LT COMPLETE from 09/29/2021 FINDINGS: BONES: There has been no change in alignment of the fracture involving the proximal phalanx of the 5t h finger. No new fracture is identified. No bony destructive lesion is seen. JOINTS: No dislocation present. Marked degenerative changes are again seen at the 1st CMC joint. SOFT TISSUE: Atherosclerotic calcifications are present. IMPRESSION: Stable fracture of the proximal phalanx of the 5th finger. DATA REPOSITORY: RADIATION DOSE DELIVERED:
== END 2021-10-05 08:21 | disposition home or self-care (01) ==
LOC: DIORS 08:21
PROVIDERS: PCP Family Medicine; Referring Provider Family Medicine; Visit Provider Student in an Organized Health Care Education/Training Program
DX: S62.605A Fracture of unspecified phalanx of left ring finger, initial encounter for closed fracture (principal); W19.XXXA Unspecified fall, initial encounter
CPT/HCPCS: 99204; 99214; 73130

== ENCOUNTER 2021-10-05 15:31 | Outpatient (REF) | payer MEDICARE, OTHER, SELFPAY ==
[2021-10-05 16:51] LABS: Abs Immature Grans 0.02 10^3/uL (0.0-0.06); Absolute Basophil Count 0.01 10^3/uL (0.0-0.2); Absolute Eosinophil Count 0.16 10^3/uL (0.0-0.7); Absolute Lymphocyte Count 1.51 10^3/uL (1.2-3.4); Absolute Monocyte Count 0.43 10^3/uL (0.1-0.8); Absolute Neutrophil Count 3.62 10^3/uL (1.2-6.7); Basophils % 0.2; Eosinophils % 2.8; HCT 42.9 % (40.0-50.0); Immature Grans % 0.3; Lymphocytes % 26.3; MCH 29.7 pg (27.0-33.0); MCHC 32.6 % (32.0-36.0); MCV 90.9 fL (80-95); MPV 10.5 fL (8.0-11.0); Monocytes % 7.5; Neutrophils % 62.9; Nucleated RBC 0 %; Platelet Count 173 10^3/uL (130-400); RBC 4.72 10^6/uL (4.36-5.78); RDW 12.9 % (11.8-14.1); RDW-SD 42.4 fL; WBC 5.75 10^3/uL (4.4-10.8)
[2021-10-05 17:11] LABS: ALT 32 U/L (16-63); AST 17 U/L (15-37); Albumin 4.3 g/dL (3.4-5.0); Alkaline Phosphatase 81 U/L (46-116); Anion Gap 9.2 mmol/L (3-11); BUN 21 mg/dL (7-18); Bilirubin, Total 0.5 mg/dL (0.2-1.0); CO2 27.8 mmol/L (21.0-32.0); CREATININE 1.2 mg/dL (0.70-1.30); Calcium 8.7 mg/dL (8.5-10.1); Chloride 103 mmol/L (98-107); Glucose 150 mg/dL (74-106); Potassium 4.8 mmol/L (3.5-5.1); Sodium 140 mmol/L (136-145); Total Protein 7.4 g/dL (6.4-8.2)
== END 2021-10-05 15:32 | disposition home or self-care (01) ==
LOC: NCHCN 15:31
PROVIDERS: PCP Family Medicine; Visit Provider Family Medicine
DX: K75.81 Nonalcoholic steatohepatitis (NASH) (principal)
CPT/HCPCS: 80053; 85025

== ENCOUNTER 2021-10-18 21:03 | Outpatient (REF) | payer MEDICARE, OTHER, SELFPAY ==
[2021-10-18 20:39] LABS: C Diff PCR Negative (Negative)
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
== END 2021-10-18 21:04 | disposition home or self-care (01) ==
LOC: NCHCN 21:03
PROVIDERS: PCP Family Medicine; Visit Provider Family Medicine
DX: R19.7 Diarrhea, unspecified (principal)
CPT/HCPCS: 87329; 87493; 83630

== ENCOUNTER 2021-10-19 08:43 | Outpatient (CLI) | payer MEDICARE, SELFPAY ==
--- NOTE | 2021-10-19 08:15 | DI.RAD_ITS ---
Exam(s) XR HAND LT COMPLETE EXAM: XR HAND LT COMPLETE CLINICAL HISTORY: follow up. TECHNIQUE: 2D digital imaging was performed of the left hand. Three views were obtained. AP, later al and oblique views were obtained. COMPARISON: CR XR HAND LT COMPLETE from 10/05/2021 FINDINGS: BONES: There has been no change in alignment of the fracture involving the proximal phalanx of the le ft 5th finger. No bony destructive lesion is seen. JOINTS: No dislocation present. There again seen marked degenerative changes of the 1st CMC joint. SOFT TISSUE: Normal. IMPRESSION: Stable fracture of the proximal phalanx of the 5th finger. DATA REPOSITORY: RADIATION DOSE DELIVERED:
== END 2021-10-19 08:44 | disposition home or self-care (01) ==
LOC: DIORS 08:43
PROVIDERS: PCP Family Medicine; Referring Provider Family Medicine; Visit Provider Physician Assistant Surgical
DX: S62.602A Fracture of unspecified phalanx of right middle finger, initial encounter for closed fracture (principal); X58.XXXA Exposure to other specified factors, initial encounter
CPT/HCPCS: 99214; 73130

== ENCOUNTER 2021-11-01 18:09 | Outpatient (REF) | payer MEDICARE, OTHER, SELFPAY ==
--- NOTE | 2021-11-01 14:30 | PAPNONF_PTH ---
PATIENT: Yung Betancur LOC: [facility] U#:[id number] AGE/SX: 65/M ROOM: RE11/01/[address]: Matias Bravo MD : 1955 BED: DIS: 11/01/2021 SPEC #: [id number] RECD: 11/01/21 18:14 STATUS: ROBER REQ #: [id number] JI: 11/01/21 14:[address]: Matias Bravo DEPT: [facility] Cytology RECD BY: Mary Hall ENTERED: 11/01/21 18:15 SP TYPE: CHRISTOPHER HYLTON DR: Yung Horn Tissues: 1 - BODY FLUID CYTO-FINE NEEDLE ASPIRATE-[facility] Procedures: BODY FLUID CYTO-FINE NEEDLE ASPIRATE-[facility] Comments: [id number]
== END 2021-11-01 18:10 | disposition home or self-care (01) ==
LOC: LBN 18:09
PROVIDERS: PCP Family Medicine; Visit Provider Otolaryngology
DX: K11.8 Other diseases of salivary glands (principal)
CPT/HCPCS: 88104

== ENCOUNTER 2021-12-07 08:26 | Outpatient (CLI) | payer MEDICARE, OTHER, SELFPAY ==
--- NOTE | 2021-12-07 08:00 | DI.RAD_ITS ---
Exam(s) XR HAND LT COMPLETE EXAM: XR HAND LT COMPLETE CLINICAL HISTORY: left hand fx f/u. TECHNIQUE: 2D digital imaging was performed. COMPARISON: CR XR HAND LT COMPLETE from 10/19/2021 FINDINGS: 3 views Again noted is a previously described fracture in the proximal half of the proximal phalanx of the 5t h finger. There is mild angulation again noted but no further displacement. Fracture does not appea r to involve an articular surface of the metacarpophalangeal joint. No new additional fractures iden tified. IMPRESSION: DATA REPOSITORY: RADIATION DOSE DELIVERED:
== END 2021-12-07 08:27 | disposition home or self-care (01) ==
LOC: DIORS 08:27
PROVIDERS: PCP Family Medicine; Referring Provider Family Medicine; Visit Provider Student in an Organized Health Care Education/Training Program
DX: S62.607A Fracture of unspecified phalanx of left little finger, initial encounter for closed fracture (principal); X58.XXXA Exposure to other specified factors, initial encounter
CPT/HCPCS: 99212; 99213; 73130

== ENCOUNTER 2021-12-23 21:05 | Emergency (ER) | payer MEDICARE, SELFPAY ==
[2021-12-23] VITALS (16 sets, daily range): BP systolic 103–153; BP diastolic 58–83; PULSE 63–85; RESP 11–15; TEMP 36.4–36.6; O2SAT 94–98
--- NOTE | 2021-12-23 21:00 | RT.EKG_ITS ---
APPROVED REPORT Exam: Resting ECG Reason for Exam: sob Patient Location: E HR:86 bpm ECG Measurements Heart Rate 86 AXIS ID 181 P 65 QRSd 103 QRS 6 QT 363 T 39 QTc 435 Conclusion Sinus rhythm...normal P axis, V-rate 60- 99
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
--- NOTE | 2021-12-23 21:13 | ED.GENADUL_ITS ---
Discharge Plan Disposition Patient Disposition: HOME Condition: Stable Discharge Details Clinical Impression: Chest pain, Contusion of rib Primary Care Provider: Yung Horn ED Provider: Roosevelt Sullivan Home Meds and New Rx's Prescriptions: Continued Trulicity 1.5 mg/0.5 mL pen injector 1.5 mg subcut QWEEK acetaminophen 500 mg tablet 1,000 mg PO Q6H PRN clotrimazole 1 % cream 1 applic topical BID albuterol sulfate 90 mcg/actuation HFA aerosol inhaler 1 inh inhalation DAILY PRN metformin [Glucophage] 1,000 MG tablet 1,000 mg PO BID diclofenac sodium [Voltaren Arthritis Pain] 1 % gel 2 g topical QID Qty: 50 0RF Rx Instructions: apply to single elbow, wrist or hand; for hand includes palm/fingers/back of hand tamsulosin [Flomax] 0.4 mg capsule 0.4 mg PO HS Label Comments: TAKE 1 CAPSULE BY MOUTH DAILY AT BEDTIME FOR URINATION glipizide 10 mg tablet extended release 24hr 10 mg PO BID Label Comments: TK 2 TS PO D FOR BS gabapentin 800 mg tablet 800 mg PO TID Label Comments: TAKE 1 TABLET BY MOUTH THREE TIMES DAILY FOR PAIN pantoprazole 40 mg tablet,delayed release (DR/EC) 40 mg PO BID Label Comments: TK 1 T PO BID venlafaxine 225 mg tablet extended release 24hr 225 mg PO DAILY Label Comments: TAKE 1 TABLET BY MOUTH EVERY DAY Discharge Instructions Instructions: Rib Contusion (ED) Additional Instructions: follow up with your primary care provider within 1 week if pain continues if you feel more ill, have worsening pain or difficulty breathing return to the emergency department Medical Decision Making 66 yo male with hx of DM, gerd, htn, who comes in with 3 days of left sided chest pain since he was putting stuff in 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 He has shortness of breath if he does a lot of work but states this has been going on for years. HE denies fevers, chills, abdomen pain, n/v, diaphoresis or radiation of pain. He is stable, no hypoxia, tachycardia. He has a 3cm bruise on the left anterior upper chest and is tender in this area. No midsternal or right sided tenderness. He has clear lungs, no murmurs, no calf tenderness. I suspect rib contusion vs fracture, will obtain xray. Pain is reproducible and has no other symptoms to suggest acs but will obtain ecg and troponin. Normal pulses and no tearing back pain so doubt dissection. Other than his age he would be perc negative and pain started after a box fell on his left upper chest so do not feel PE workup indicated labs and imaging reassuring and he is stable, given 3 days of the pain do not feel delta troponin indicated and pain is reproducible and has a contusion of his chest. Discussed results with him, he will follow up with his pcp and return precautions given Differential Diagnosis Differential Diagnosis: rib fracture, contusion, nstemi Medical Records Medical records reviewed: Yes I reviewed the patient's medical records. Imaging Data Radiologic Study: Attestation: I personally reviewed and interpreted this imaging study as follows: Imaging: X-Ray Radiologist's impression: no acute findings Lab Data Lab results reviewed: Yes I reviewed the patient's lab results. ECG Data Attestation: I personally reviewed and interpreted this ECG (s) as follows: Prior ECG tracings: available for review Interpretation: sinus rhythm, rate of 86, no stemi or acute ischemic findings HPI General Mode of arrival: ambulatory . Date/Time Provider Initiated Documentation: 12/23/21 21:07 . Limitations to Documentation: no limitations . Information obtained by: patient . History of Present Illness 66 year old M presents to the emergency department with the chief complaint of left sided chest pain, described as moderate, with intensity rated at 5. Quality is described as aching, and is localized to the chest. Patient reports no radiation. Patient started experiencing this day(s) (3) and it has been constant. No relieving factors improve symptom(s), Other factors that worsen symptoms (pushing on his left chest) . Patient did receive the following treatments prior to arrival, none Related Data Home Medications Medication Instructions Recorded Confirmed metformin 1,000 mg tablet 1,000 mg PO BID 11/27/17 12/07/21 (Glucophage) tamsulosin 0.4 mg capsule (Flomax) 0.4 mg PO HS 07/01/20 12/07/21 gabapentin 800 mg tablet 800 mg PO TID 07/02/20 12/07/21 glipizide 10 mg tablet, extended 10 mg PO BID 07/02/20 12/07/21 release 24 hr pantoprazole 40 mg tablet,delayed 40 mg PO BID 07/02/20 12/07/21 release venlafaxine 225 mg tablet,extended 225 mg PO DAILY 07/02/20 11/01/21 release 24 hr diclofenac sodium 1 % topical gel 2 g topical QID #50 grams 11/13/20 12/07/21 (Voltaren Arthritis Pain) acetaminophen 500 mg tablet 1,000 mg PO Q6H PRN 10/26/21 12/07/21 clotrimazole 1 % topical cream 1 applic topical BID 10/26/21 12/07/21 dulaglutide 1.5 mg/0.5 mL 1.5 mg subcut QWEEK 10/26/21 12/07/21 subcutaneous pen injector (Trulicity) albuterol sulfate 90 mcg/actuation 1 inh inhalation DAILY PRN 11/01/21 12/07/21 aerosol inhaler Previous Rx's Medication Instructions Recorded diclofenac sodium 1 % topical gel 2 g topical QID #50 grams 11/13/20 (Voltaren Arthritis Pain) Allergies Allergy/AdvReac Type Severity Reaction Status Date / Time adhesive Allergy Intermediate blisters Verified 12/23/21 21:14 atorvastatin Allergy Intermediate .chest Verified 12/23/21 21:14 pain/diaphroresis General NASIMA: 3 Review of Systems All systems reviewed & are unremarkable except as noted in HPI and below Constitutional Constitutional: Denies chills, Denies fever(s) and Denies weakness Respiratory Respiratory: Denies cough Gastrointestinal Gastrointestinal: Denies abdominal pain, Denies nausea and Denies vomiting Genitourinary Genitourinary: Denies dysuria Musculoskeletal Musculoskeletal: Denies joint swelling Neurologic Neurologic: Denies weakness PFSH All Active Problems (Updated 12/23/21 @ 21:52 by Roosevelt Sullivan MD) Chest pain (Acute) Contusion of rib (Acute) Peyronie's disease (Acute) Memory impairment (Acute) Osteoarthritis of knees, bilateral (Acute) Peroneal tendinitis (Acute) Mass of parotid gland (Acute) Closed fracture of finger of left hand (Acute 09/29/21) small finger Hiatal hernia (Chronic) Chest pain (Acute) Dysphagia (Chronic) Non-insulin dependent type 2 diabetes mellitus (Acute) GERD (gastroesophageal reflux disease) (Acute) Hypertension (Acute) Obesity (BMI 35.0-39.9 without comorbidity) (Acute) Hyperlipidemia (Acute 05/16/13) Degenerative cervical spinal stenosis (Chronic 12/23/14) Liver cirrhosis secondary to nonalcoholic steatohepatitis (HERR) (Acute) Alcoholic cirrhosis of liver without ascites (Chronic) S/P gastric bypass (Chronic) Diabetes mellitus type II, uncontrolled (Chronic) Anastomotic stricture of gastrojejunostomy (Acute) Weakness with dizziness (Acute) Shortness of breath at rest (Acute) SOB (shortness of breath) (Acute) Fall (Acute) Other sprain of right shoulder joint, initial encounter (Acute) Cellulitis of foot, right (Acute) Foot pain, right (Acute) Medical History (Updated 12/23/21 @ 21:52 by Roosevelt Sullivan MD) 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 this was related to when he had gastric bypass he had scarring over his esophagus, and it wasn't cardiac in nature Depression (07/16/14) Elevated bilirubin Erectile dysfunction (06/19/14) Low back pain Sensorineural hearing loss, bilateral (01/06/17) Surgical History bunionectomy (07/18/14) Left Dr Márquez H/O gastric bypass 2009 History of colonoscopy (~10/30/20) History of esophagogastroduodenoscopy (EGD) (~08/13/21) 10/30/20 Hx of cholecystectomy Hx of total knee replacement Bilateral. Repair of inguinal hernia Repair, ACL Rotator Cuff Repair Family History Mother Alzheimer disease Social History Smoking/Tobacco Use Status: Former Tobacco Use Quit Date: 07/10/85 Smoking risk assessment performed?: Yes Alcohol Intake: former Drug use: Never Substance use type: does not use Details: no alcohol x3 years Household members: spouse current occupation: retired Current gender identity: male What is your relationship status?: Panel score (0-1 are the most socially isolated patients): 1 Do you feel safe in your relationship?: Yes Exam Const General: no acute distress Orientation: alert HENMT Head: normal to inspection Ears: external ears normal General nose exam: external nose normal Mouth: moist mucous membranes Eyes General: appearance normal, both eyes and all related structures Neck Neck: normal visual inspection Chest Chest: tenderness Resp Effort & Inspection: normal respiratory effort and able to speak in complete sentences Cardio Rate: regular rate GI Palpation: soft and nontender Skin General skin exam: no rashes or lesions noted Neuro General: patient alert and patient oriented x3 Extrem General: normal to inspection Psych Mental Status: mental status grossly normal
--- NOTE | 2021-12-23 21:15 | DI.RAD_ITS ---
Exam(s) XR CHEST 2V PA LATERAL EXAM: XR CHEST 2V PA LATERAL CLINICAL HISTORY: left sided chest pain s/p box falling on him TECHNIQUE: COMPARISON: CR XR RIBS RT W PA LAT CHEST from 10/24/2020 FINDINGS: The heart is not enlarged. Lungs appear generally clear except for slight prominence of interstitial markings bilaterally, nonspecific and probably chronic. No pleural effusion or pneumothorax. No gr oss rib fracture on this series. IMPRESSION: No evidence of acute process. RADIATION DOSE DELIVERED: Total DLP
[2021-12-23 21:36] LABS: BE (Venous) 1 mmol/L (-2-3); HCO3 (Venous) 26 mmol/L (23-28); O2 Sat (Venous) 79 %; TCO2 (Venous) 24 mmol/L (24-29); pCO2 (Venous) 44 mmHg (41-51); pH (Venous) 7.38 (7.31-7.41); pO2 (Venous) 45 mmHg
[2021-12-23] MEDS: Acetaminophen 500 MG TAB 1000 MG PO (21:37)
[2021-12-23 21:39] LABS: Abs Immature Grans 0.01 10^3/uL (0.0-0.06); Absolute Basophil Count 0.01 10^3/uL (0.0-0.2); Absolute Eosinophil Count 0.17 10^3/uL (0.0-0.7); Absolute Lymphocyte Count 1.67 10^3/uL (1.2-3.4); Absolute Monocyte Count 0.41 10^3/uL (0.1-0.8); Absolute Neutrophil Count 2.63 10^3/uL (1.2-6.7); Basophils % 0.2; Eosinophils % 3.5; HCT 39.2 % (40.0-50.0); HGB 13.1 g/dL (13.5-17.5); Immature Grans % 0.2; Lymphocytes % 34.1; MCH 29.2 pg (27.0-33.0); MCHC 33.4 % (32.0-36.0); MCV 88 fL (80-95); MPV 10.2 fL (8.0-11.0); Monocytes % 8.4; Neutrophils % 53.6; Platelet Count 205 10^3/uL (130-400); RBC 4.48 10^6/uL (4.36-5.78); RDW 12.6 % (11.8-14.1); RDW-SD 40.1 fL
[2021-12-23 22:26] LABS: ALT 30 U/L (16-63); AST 23 U/L (15-37); Albumin 3.5 g/dL (3.4-5.0); Alkaline Phosphatase 67 U/L (46-116); BUN 21 mg/dL (7-18); Bilirubin, Direct 0.1 mg/dL (0.0-0.2); Bilirubin, Total 0.5 mg/dL (0.2-1.0); CREATININE 1.3 mg/dL (0.70-1.30); Calcium 8.5 mg/dL (8.5-10.1); Chloride 108 mmol/L (98-107); Glucose 278 mg/dL (74-106); Magnesium 1.6 mg/dL (1.8-2.4); NT-proBNP 55 pg/mL (<300); Sodium 142 mmol/L (136-145); Total Protein 6.6 g/dL (6.4-8.2); Troponin I < 50 ng/L (<or=60)
--- NOTE | 2021-12-23 22:38 | DI.VRAD_ITS ---
PROCEDURE INFORMATION: Exam: XR Chest Exam date and time: 12/23/2021 22:02 Age: 66 years old Clinical indication: Injury or trauma; Other: Left sided chest pain S/P box falling on him; Blunt trauma (contusions or hematomas); Injury date: 12/23/21 TECHNIQUE: Imaging protocol: Radiologic exam of the chest. Views: 2 views. COMPARISON: CR XR RIBS RT W PA LAT CHEST 10/24/2020 14:45 FINDINGS: Lungs: Minor central interstitial prominence without tyler airspace consolidation. Pleural spaces: No pleural effusion. No pneumothorax. Heart/Mediastinum: No cardiomegaly. Bones/joints: Evidence of right rotator cuff repair. No displaced fracture. IMPRESSION: No acute cardiopulmonary pathology. Dictated and Authenticated by: Cinthya Mccullough MD. Ordering:TARIQ Albert MD
== END 2021-12-23 22:57 | disposition home or self-care (01) ==
PROVIDERS: Emergency Provider Emergency Medicine; PCP Family Medicine
DX: S20.212A Contusion of left front wall of thorax, initial encounter (principal); W20.8XXA Other cause of strike by thrown, projected or falling object, initial encounter; R07.9 Chest pain, unspecified; I10 Essential (primary) hypertension; E11.9 Type 2 diabetes mellitus without complications; R06.02 Shortness of breath
CPT/HCPCS: 36415; 80053; 82805; 93005; 99284; 71046; 82248; 83735; 83880; 84484; 85025; 85379; 93010; 99283

== ENCOUNTER 2022-01-10 09:56 | Emergency (ER) | payer MEDICARE, SELFPAY ==
[2022-01-10] VITALS (63 sets, daily range): BP systolic 110–135; BP diastolic 52–78; PULSE 71–82; RESP 14–20; TEMP 36.8; O2SAT 92–100
--- NOTE | 2022-01-10 10:43 | ED.GENADUL_ITS ---
Discharge Plan Disposition Patient Disposition: HOME Condition: Stable Discharge Details Clinical Impression: Viral URI with cough Primary Care Provider: Yung Horn ED Provider: Moon Macias Home Meds and New Rx's Prescriptions: Continued Trulicity 1.5 mg/0.5 mL pen injector 1.5 mg subcut QWEEK acetaminophen 500 mg tablet 1,000 mg PO Q6H PRN clotrimazole 1 % cream 1 applic topical BID albuterol sulfate 90 mcg/actuation HFA aerosol inhaler 1 inh inhalation DAILY PRN metformin [Glucophage] 1,000 MG tablet 1,000 mg PO BID diclofenac sodium [Voltaren Arthritis Pain] 1 % gel 2 g topical QID Qty: 50 0RF Rx Instructions: apply to single elbow, wrist or hand; for hand includes palm/fingers/back of hand tamsulosin [Flomax] 0.4 mg capsule 0.4 mg PO HS Label Comments: TAKE 1 CAPSULE BY MOUTH DAILY AT BEDTIME FOR URINATION glipizide 10 mg tablet extended release 24hr 10 mg PO BID Label Comments: TK 2 TS PO D FOR BS gabapentin 800 mg tablet 800 mg PO TID Label Comments: TAKE 1 TABLET BY MOUTH THREE TIMES DAILY FOR PAIN pantoprazole 40 mg tablet,delayed release (DR/EC) 40 mg PO BID Label Comments: TK 1 T PO BID venlafaxine 225 mg tablet extended release 24hr 225 mg PO DAILY Label Comments: TAKE 1 TABLET BY MOUTH EVERY DAY Discharge Instructions Instructions: Upper Respiratory Infection (ED), Acute Cough (ED) Additional Instructions: It is suspected that you have the COVID-19 virus. You were given a monoclonal antibody infusion for suspicion of COVID-19 virus which has been shown to decrease the risk of severe illness which can lead to disability or associated with COVID-19. Drink plenty of fluids and get plenty of rest. Take Tylenol every 4 hours and ibuprofen every 6 hours as needed for pain or fever. Be sure to check your sugars regularly and take your regular medications as directed. Please quarantine for the next 5 days while you are symptomatic. Follow-up with your primary care doctor in 1 week. Return to the emergency department with any worsening or new concerning symptoms. Discharge Data Discharge Date/Time-TO BE ENTERED AT DEPARTURE: 01/10/22 13:23 Discharge Physician: Moon Macias Medical Decision Making 56-year-old male with a history of obesity, hypertension, hyperlipidemia, GERD, diabetes, history of alcohol abuse with liver cirrhosis presents for 1 week of sinus congestion, sore throat, cough, fatigue, body aches, nausea and diarrhea. diagnosed with COVID 1 week ago. Patient has received a total of 3 COVID vaccines. Vitals within normal limits. Patient appears comfortable and nontoxic. He appears generally fatigued but is breathing comfortably. Normal oropharynx. Lungs clear bilaterally. Suspect COVID. Do not see indication for lab work or imaging. Case discussed with [facility] pharmacist Manisha -- Patient outside the treatment window for Paxlovid which is 5 days -- He is still within the treatment window for monoclonal antibodies which can be ordered as COVID is suspected even without a positive test result. Patient was given monoclonal antibodies which he tolerated well. He was advised to obtain a COVID booster once eligible. Advised to follow up with the primary care doctor for re- evaluation. Usual and customary return precautions given prior to discharge. Medical Records Medical records reviewed: Yes I reviewed the patient's medical records. HPI General Mode of arrival: ambulatory . Date/Time Provider Initiated Documentation: 01/10/22 10:17 . Limitations to Documentation: no limitations . Information obtained by: patient . HPI Narrative: Patient is a 66-year-old male with a history of obesity, GERD, diabetes, hypertension, hyperlipidemia who presents to the ED with complaint of 1 week of sinus congestion, nasal discharge, sore throat, cough, fatigue, nausea and diarrhea. He states his was diagnosed with COVID 1 week ago. He states he has received a total of 3 COVID vaccines. He denies any known fevers but states he has had chills. He denies chest pain, shortness of breath, vomiting. Related Data Home Medications Medication Instructions Recorded Confirmed metformin 1,000 mg tablet 1,000 mg PO BID 11/27/17 01/10/22 (Glucophage) tamsulosin 0.4 mg capsule (Flomax) 0.4 mg PO HS 07/01/20 01/10/22 gabapentin 800 mg tablet 800 mg PO TID 07/02/20 01/10/22 glipizide 10 mg tablet, extended 10 mg PO BID 07/02/20 01/10/22 release 24 hr pantoprazole 40 mg tablet,delayed 40 mg PO BID 07/02/20 01/10/22 release venlafaxine 225 mg tablet,extended 225 mg PO DAILY 07/02/20 01/10/22 release 24 hr diclofenac sodium 1 % topical gel 2 g topical QID #50 grams 11/13/20 01/10/22 (Voltaren Arthritis Pain) acetaminophen 500 mg tablet 1,000 mg PO Q6H PRN 10/26/21 01/10/22 clotrimazole 1 % topical cream 1 applic topical BID 10/26/21 01/10/22 dulaglutide 1.5 mg/0.5 mL 1.5 mg subcut QWEEK 10/26/21 01/10/22 subcutaneous pen injector (Trulicity) albuterol sulfate 90 mcg/actuation 1 inh inhalation DAILY PRN 11/01/21 01/10/22 aerosol inhaler Previous Rx's Medication Instructions Recorded diclofenac sodium 1 % topical gel 2 g topical QID #50 grams 11/13/20 (Voltaren Arthritis Pain) Allergies Allergy/AdvReac Type Severity Reaction Status Date / Time adhesive Allergy Intermediate blisters Verified 01/10/22 10:14 atorvastatin Allergy Intermediate .chest Verified 01/10/22 10:14 pain/diaphroresis General Stated Complaint: RespSymp NASIMA: 3 Review of Systems All systems reviewed & are unremarkable except as noted in HPI and below Constitutional Constitutional: Reports body ache(s), Denies chills, Denies excessive sweating, Reports fatigue, Denies fever(s), Denies weakness and Denies weight loss Eyes Eyes: Reports system reviewed and no additional complaints, except as documented and Denies blurry vision ENT Ears, Nose, Mouth, and Throat: Denies vertigo, Denies dizziness, Denies otalgia, Reports nasal congestion, Reports sinus pressure, Reports sore throat and Denies throat swelling Cardiovascular Cardiovascular: Denies chest pain, Denies syncope, Denies rapid heart rate and Denies dyspnea Respiratory Respiratory: Denies chest congestion, Reports cough, Denies pain on inspiration and Denies dyspnea Gastrointestinal Gastrointestinal: Denies abdominal pain, Reports diarrhea and Denies vomiting Genitourinary Genitourinary: Denies hematuria, Denies dysuria and Denies flank pain Musculoskeletal Musculoskeletal: Denies back pain and Denies joint swelling Integumentary/Breasts Skin/Breast: Denies lesions and Denies rash Neurologic Neurologic: Denies behavioral changes, Denies confusion, Denies vertigo, Denies dizziness, Denies syncope, Denies localized weakness and Denies weakness Psychiatric Psychiatric: Denies behavioral changes, Denies confusion and Denies depression Endocrine Endocrine: Denies excessive sweating and Reports fatigue Hematologic/Lymphatic Hematologic/Lymphatic: Denies easy bruising and Denies lymphadenopathy Allergic/Immunologic Allergic/Immunologic: Denies throat swelling PFSH All Active Problems (Updated 01/10/22 @ 12:52 by Moon Macias DO) Chest pain (Acute) Contusion of rib (Acute) Viral URI with cough (Acute) Peyronie's disease (Acute) Memory impairment (Acute) Osteoarthritis of knees, bilateral (Acute) Peroneal tendinitis (Acute) Mass of parotid gland (Acute) Closed fracture of finger of left hand (Acute 09/29/21) small finger Hiatal hernia (Chronic) Chest pain (Acute) Dysphagia (Chronic) Non-insulin dependent type 2 diabetes mellitus (Acute) GERD (gastroesophageal reflux disease) (Acute) Hypertension (Acute) Obesity (BMI 35.0-39.9 without comorbidity) (Acute) Hyperlipidemia (Acute 05/16/13) Degenerative cervical spinal stenosis (Chronic 12/23/14) Liver cirrhosis secondary to nonalcoholic steatohepatitis (HERR) (Acute) Alcoholic cirrhosis of liver without ascites (Chronic) S/P gastric bypass (Chronic) Diabetes mellitus type II, uncontrolled (Chronic) Anastomotic stricture of gastrojejunostomy (Acute) Weakness with dizziness (Acute) Shortness of breath at rest (Acute) SOB (shortness of breath) (Acute) Fall (Acute) Other sprain of right shoulder joint, initial encounter (Acute) Cellulitis of foot, right (Acute) Foot pain, right (Acute) Medical History (Updated 01/10/22 @ 12:52 by Moon Macias DO) 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 this was related to when he had gastric bypass he had scarring over his esophagus, and it wasn't cardiac in nature Depression (07/16/14) Elevated bilirubin Erectile dysfunction (06/19/14) Low back pain Sensorineural hearing loss, bilateral (01/06/17) Surgical History bunionectomy (07/18/14) Left Dr Márquez H/O gastric bypass 2009 History of colonoscopy (~10/30/20) History of esophagogastroduodenoscopy (EGD) (~08/13/21) 10/30/20 Hx of cholecystectomy Hx of total knee replacement Bilateral. Repair of inguinal hernia Repair, ACL Rotator Cuff Repair Family History Mother Alzheimer disease Social History Smoking/Tobacco Use Status: Former Tobacco Use Quit Date: 07/10/85 Smoking risk assessment performed?: Yes Alcohol Intake: former Drug use: Never Substance use type: does not use Details: no alcohol x3 years Household members: spouse current occupation: retired Current gender identity: male What is your relationship status?: Panel score (0-1 are the most socially isolated patients): 1 Do you feel safe in your relationship?: Yes Exam Const General: cooperative Orientation: alert, awake and oriented x3 HENMT Head: normal to inspection Ears: hearing grossly normal bilaterally, external ears normal and TM's normal bilaterally General nose exam: external nose normal Face and sinus: normal facial exam Mouth: oral mucosae normal Throat: posterior oropharynx normal Eyes General: appearance normal, both eyes and all related structures Eyelids: eyelids normal Pupils: PERRL EOM: EOM intact bilaterally Neck Neck: normal visual inspection Lymphatic: no lymphadenopathy noted Chest Chest: normal inspection of the chest Resp Effort & Inspection: normal respiratory effort and able to speak in complete sentences Auscultation: clear to auscultation bilaterally Cardio Rate: regular rate Rhythm: regular rhythm GI Inspection: normal to inspection and obesity Palpation: soft, not firm, no guarding, no hepatosplenomegaly, no masses and nontender Auscultation: normal bowel sounds Back/Spine/Pelvis Back: no CVA tenderness Skin General skin exam: no rashes or lesions noted Neuro General: patient alert and patient awake Cognition: normal cognition Speech: speech normal Gait: normal gait Motor: muscle tone normal throughout Sensory Exam: no sensory deficits noted Extrem General: normal to inspection, full ROM and capillary refill normal Psych Appearance: grossly normal Mental Status: mental status grossly normal Speech and Movement: speech and movement normal Affect: normal affect Thought Process: normal Course Vital Signs Vital signs: Vital Signs Temperature 98.2 F 01/10/22 10:12 Pulse 78 01/10/22 10:12 Respiratory Rate 16 01/10/22 10:12 Blood Pressure 135/78 01/10/22 10:12 Pulse Oximetry 96 01/10/22 10:12 Temperature 98.2 F 01/10/22 10:12 Temperature Source Temporal Artery Scan 01/10/22 10:12 Pulse 78 01/10/22 10:12 Respiratory Rate 16 01/10/22 10:12 Respiratory Effort 01/10/22 10:18 Respiratory Depth Normal 01/10/22 10:18 Blood Pressure 135/78 01/10/22 10:12 Blood Pressure Position Sitting 01/10/22 10:12 Pulse Oximetry 96 01/10/22 10:12 Oxygen Delivery Method Room Air 01/10/22 10:12 Oxygen Flow Rate 0 01/10/22 10:12 Pain Level 0 01/10/22 10:12
--- NOTE | 2022-01-10 11:29 | NUR.NOTE ---
Per MD orders, pt provided PO fluids and crackers. Pt tolerating PO appropriately.
[2022-01-12 11:15] LABS: COVID-19 RT-PCR UVMMC Result Negative (Negative)
== END 2022-01-10 13:23 | disposition home or self-care (01) ==
PROVIDERS: Emergency Provider Physician Assistant; PCP Family Medicine
DX: J06.9 Acute upper respiratory infection, unspecified (principal); I10 Essential (primary) hypertension; E11.9 Type 2 diabetes mellitus without complications; Z20.822 Contact with and (suspected) exposure to COVID-19; Z79.84 Long term (current) use of oral hypoglycemic drugs; Z87.891 Personal history of nicotine dependence
CPT/HCPCS: 96374; 99284; Q0222; U0003

== ENCOUNTER 2022-12-20 15:34 | Outpatient (REF) | payer MEDICARE, SELFPAY ==
[2022-12-20 19:28] LABS: Abs Immature Grans 0.02 10^3/uL (0.0-0.06); Absolute Basophil Count 0.02 10^3/uL (0.0-0.2); Absolute Eosinophil Count 0.31 10^3/uL (0.0-0.7); Absolute Lymphocyte Count 2.04 10^3/uL (1.2-3.4); Absolute Monocyte Count 0.51 10^3/uL (0.1-0.8); Absolute Neutrophil Count 4.39 10^3/uL (1.2-6.7); Basophils % 0.3; Eosinophils % 4.3; HCT 42.7 % (40.0-50.0); HGB 14.9 g/dL (13.5-17.5); Immature Grans % 0.3; MCH 29.5 pg (27.0-33.0); MCHC 34.9 % (32.0-36.0); MCV 85 fL (80-95); Neutrophils % 60.1; Platelet Count 185 10^3/uL (130-400); RBC 5.05 10^6/uL (4.36-5.78); RDW 12.6 % (11.8-14.1); RDW-SD 38.8 fL; WBC 7.29 10^3/uL (4.4-10.8)
[2022-12-20 19:40] LABS: ALT 25 U/L (16-63); AST 14 U/L (15-37); Albumin 4.4 g/dL (3.4-5.0); Alkaline Phosphatase 107 U/L (46-116); BUN 18 mg/dL (7-18); Bilirubin, Total 0.5 mg/dL (0.2-1.0); CREATININE 1.1 mg/dL (0.70-1.30); Calcium 9.4 mg/dL (8.5-10.1); Chloride 100 mmol/L (98-107); Estimated GFR 74.04 (mL/min/1.73m2); Glucose 161 mg/dL (74-106); Magnesium 1.8 mg/dL (1.8-2.4); Potassium 4.5 mmol/L (3.5-5.1); Sodium 136 mmol/L (136-145); Total Protein 7.7 g/dL (6.4-8.2)
[2022-12-21 18:26] LABS: PSA, Screening 0.5 ng/mL (<=4.5)
== END 2022-12-20 15:35 | disposition home or self-care (01) ==
LOC: NCHCN 15:34
PROVIDERS: PCP Family Medicine; Visit Provider Family Medicine
DX: E83.42 Hypomagnesemia (principal); N40.1 Benign prostatic hyperplasia with lower urinary tract symptoms; K75.81 Nonalcoholic steatohepatitis (NASH); D62 Acute posthemorrhagic anemia; E11.9 Type 2 diabetes mellitus without complications
CPT/HCPCS: 80053; 84153; 83735; 85025

== ENCOUNTER → 2023-05-25 09:10 | Outpatient (BNVA) | payer MEDICARE, SELFPAY | PROVIDERS: PCP Family Medicine; Referring Provider Family Medicine; Visit Provider Nurse Practitioner Gerontology | DX: N52.9 Male erectile dysfunction, unspecified (principal); N40.0 Benign prostatic hyperplasia without lower urinary tract symptoms; T83.490A Other mechanical complication of implanted penile prosthesis, initial encounter; N48.6 Induration penis plastica; R39.12 Poor urinary stream | CPT/HCPCS: 51798; 81003; 99215 ==

== ENCOUNTER 2023-08-17 15:46 | Outpatient (REF) | payer MEDICARE, SELFPAY ==
--- OUTSIDE RECORDS SUMMARY | 2023-08-17 15:47 | XMS_ITS | Continuity of Care Document ---
Author Name Unknown Organization [facility] Address [address] [place] [address] Care Team Providers Care Oxyacetylene Cutter Name Role Phone Elizabeth Horn Primary Care Physician Encounter [facility] Date(s): 03/03/22 - 04/07/[address] [address] Discharge Disposition: Home or Self Care Attending Physician: Santiago Cornell MD Admitting Physician: Santiago Cornell MD Allergies, Adverse Reactions, Alerts Substance Reaction Severity Status ADHESIVE TAPE Unknown Active atorvastatin Unknown Active Assessment and Plan Future Appointments Immunizations Given and Recorded Vaccine Date Status Refusal Reason SARS-CoV-2 (COVID-19) mRNA BNT-162b2 vax 04/14/21 Recorded SARS-CoV-2 (COVID-19) mRNA BNT-162b2 vax 10/20/20 Recorded SARS-CoV-2 (COVID-19) mRNA BNT-162b2 vax 09/19/20 Recorded influenza virus vaccine, live 04/09/19 Recorded influenza virus vaccine, live 04/06/18 Recorded tetanus/diphth/pertuss (Tdap) adult/adol 07/16/14 Recorded pneumococcal 23-polyvalent vaccine 07/16/14 Record ed Medications acetaminophen 500 mg oral tablet 1,000 mg = 2 tab, Oral, every 6 hr, PRN other (see comment), as needed Start Date: 03/07/22 Status: Ordered amoxicillin-clavulanate 875 mg-125 mg oral tablet 1 tab, Oral, BID Start Date: 03/07/22 Status: Ordered aspirin 81 mg oral delayed release tablet 81 mg = 1 tab, Oral, Daily Start Date: 03/07/22 Status: Ordered diclofenac 1% topical gel 2 g, Topical, every 8 hr, PRN ankle tendonitis Start Date: 03/07/22 Status: Ordered gabapentin 800 mg oral tablet 800 mg = 1 tab, Oral, TID, # 90 tab, 0 Refill(s) Start Date: 03/03/22 Status: Ordered glipiZIDE 10 mg oral tablet, extended release 10 mg = 1 tab, Oral, BID, 0 Refill(s) Start Date: 03/04/22 Status: Ordered lisinopril 10 mg oral tablet 10 mg = 1 tab, Oral, Daily Start Date: 03/07/22 Status: Ordered loperamide 2 mg oral capsule 2 mg = 1 cap, Oral, Daily Start Date: 03/07/22 Status: Ordered metFORMIN 1000 mg oral tablet, extended release 1,000 mg = 1 tab, Oral, BID, # 120 tab, 0 Refill(s) Start Date: 03/03/22 Status: Ordered oxyCODONE 10 mg oral tablet 0 Refill(s) Start Date: 03/07/22 Status: Ordered pantoprazole 40 mg oral delayed release tablet 40 mg = 1 tab, Oral, BID, # 60 tab, 0 Refill(s) Start Date: 03/03/22 Status: Ordered Percocet 5 mg-325 mg oral tablet 2 tab, Oral, every 4 hr, PRN as needed for pain, # 10 tab, 0 Refill(s) Start Date: 03/02/22 Status: Ordered ProAir HFA 90 mcg/inh inhalation aerosol 2 puffs, Inhale, every 4 hr, PRN as needed for wheezing, # 8.5 g, 0 Refill(s) Start Date: 03/03/22 Status: Ordered tamsulosin 0.4 mg oral capsule 0.4 mg = 1 cap, Oral, every night at bedtime, # 90 cap, 0 Refill(s) Start Date: 03/03/22 Status: Ordered Trulicity Pen 1.5 mg/0.5 mL subcutaneous solution 1.5 mg =, Subcutaneous, every week Start Date: 03/07/22 Status: Ordered venlafaxine 150 mg oral capsule, extended release 150 mg = 1 cap, Oral, Daily, along with a 75mg capsule for a total dose of 225mg daily, 0 Refill(s) Start Date: 03/04/22 Status: Ordered venlafaxine 75 mg oral capsule, extended release 75 mg = 1 cap, Oral, Daily, along with a 150 mg capsule for a total dose of 225mg daily, 0 Refill(s) Start Date: 03/04/22 Status: Ordered Vitamin D3 2000 intl units oral capsule 50 mcg 1 cap, Oral, Daily, For 90 days Start Date: 03/07/22 Status: Ordered Problem List Condition Effective Dates Status Health Status Inform ant Anxiety(Confirmed) Active Depression(Confirmed) Active Diabetes mellitus(Confirmed) Active Dyspnea on exertion(Confirmed) Active Fracture of distal humerus(Confirmed) Active GERD - Gastro-esophageal ref lux disease(Confirmed) Active History of alcohol abuse(Confirmed) Active History of bariatric surgica l procedure(Confirmed) Active Hypertension(Confirmed) Active Hypomagnesemia(Confirmed) Active Low back pain(Confirmed) Active Lyme disease(Confirmed) 07/25/19 Active Memory impairment(Confirmed) Active Nasal congestion(Confirmed) Active Obesity(Confirmed) Active VIJAY - Obstructive sleep apnea(Confirmed) Active Osteoarthritis(Confirmed) Active Otalgia of right ear(Confirmed) Active Pain of right shoulder joint(Confirmed) Active Periodic leg movements of sleep(Confirmed) Active Type 2 diabetes mellitus(Confirmed) Active Procedures Procedure Date Related Diagnosis Body Site Status Procedure on shoulder 10/07/18 Com pleted Knee replacement - bilateral 02/21/18 Completed Gastric bypass 10/07/09 Completed Social History Social History Type Response Tobacco Former tobacco user Tobacco Use:. Sex Male Patient Care team information Personnel Name: DominicmagalysElizabeth Address: Address: [address] [place], [place] [address]
--- OUTSIDE RECORDS SUMMARY | 2023-08-17 15:47 | XMS_ITS | Continuity of Care Document ---
Author Name Unknown Organization [facility] Address [address] [place] [address] Care Team Providers Care Plastic Boat Buffer Name Role Phone Elizabeth Horn Primary Care Physician [phone] Encounter [facility] Date(s): 04/20/22 - 04/27/22 [facility] [address] [place] [address] Encounter Diagnosis Intertrochanteric fx-closed(Discharge Diagnosis) - 04/21/22 Acute blood loss as cause of postoperative anemia(Discharge Diagnosis) - 04/24/22 Type 2 diabetes mellitus(Discharge Diagnosis) - 04/21/22 GERD - Gastro-esophageal reflux disease(Discharge Diagnosis) - 04/21/22 Discharge Disposition: Still a Patient Attending Physician: Jazmyne Collazo MD Attending Physician: Hollie Garcia MD Admitting Physician: Hollie Garcia MD Allergies, Adverse Reactions, Alerts Substance Reaction Severity Status ADHESIVE TAPE Unknown Active atorvastatin Unknown Active Assessment and Plan Future Appointments Functional Status 04/27/22 Dinner Percent 90 04/27/22 ADLs Minimal assistance Personal Care Provided Gown change, Suad care, Shampoo, Shave 04/27/22 Lunch Percent 100 04/27/22 Breakfast Percent 100 04/24/22 Activity Status ADL Sleeping 04/22/22 Living Environment Living Situation: Ho me independently Current Home Treatments: Home Devices/Equipment Professional Skilled Services: Special Services and Community Resources: Sensory Deficits: Performed by: Daysi Watson-04/21/22 14:14:00 Lives In Multilevel home Lives With Spouse Living Situation Home independently Home Barriers Internal stairs Patient's Responsibilities Driving, Home management, Personal ADL Number of Stairs Outside 1 04/22/22 Anti-Embolism Device Activity: In place Anti-Embolism Site Condition: No complic ations 04/21/22 Family Member Travel History No recent [place] Recent Travel History No recent travel Other exposure to Infectious Disease Non e Immunizations Given and Recorded Vaccine Date Status [...] as needed Start Date: 03/07/22 Status: Ordered aspirin 81 [...] 0 Refill(s) Start Date: 03/04/22 Status: Ordered loperamide 2 mg oral capsule [...] 0 Refill(s) Start Date: 03/03/22 Status: Ordered ProAir HFA 90 mcg/inh inhalation [...] Date: 03/07/22 Status: Ordered Problem List Condition Confirmation Course Effective Dates Status H ealth Status Informant Acute blood loss anemia Confirmed Active Acute blood loss as cause of postoperative anemia Confirmed Active Anxiety Confirmed Active Chronic pain Confirmed Active Depression Confirmed Active Dyspnea on exertion Confirmed Active Fracture of distal humerus Confirmed Active GERD - Gastro-esophageal reflux disease Confirmed Active History of BPH Confirmed Active History of alcohol abuse Confirmed Active History of bariatric surgical procedure Confirmed Active Hypertension Confirmed Active Hypomagnesemia Confirmed Active Low back pain Confirmed Active Lyme disease Confirmed 07/25/19 Active Memory impairment Confirmed Active Nasal congestion Confirmed Active Obesity Confirmed Active VIJAY - Obstructive sleep apnea Confirmed Active Osteoarthritis Confirmed Active Otalgia of right ear Confirmed Active Pain of right shoulder joint Confirmed Active Periodic leg movements of sleep Confirmed Active Type 2 diabetes mellitus Confirmed Active Procedures Procedure Date Related Diagnosis Body Site Status Procedure on shoulder 10/07/18 Com pleted Knee replacement - bilateral 02/21/18 Completed Gastric bypass 10/07/09 Completed Results Laboratory List Name Date Glucose POCT 04/28/22 Glucose POCT 04/27/22 Glucose POCT 04/27/22 CBC w/ Diff 04/27/22 Automated Diff 04/27/22 CBC w/o Diff (Hemogram) 04/26/22 Basic Metabolic Panel (BMP) 04/26/22 CBC w/o Diff 04/26/22 Basic Metabolic Panel (BMP) 04/25/22 .Morphology ([facility]) 04/25/22 Automated Diff 04/25/22 Urinalysis with Micro if Indicated and C ulture if Indicated 04/24/22 Red Blood Cells 04/24/22 ABO/Rh 04/24/22 Antibody Screen Gel 04/24/22 Red Blood Cells 04/24/22 Basic Metabolic Panel (BMP) 04/24/22 Automated Diff 04/24/22 .Manual Differential ([facility]) 04/22/22 Basic Metabolic Panel (BMP) 04/22/22 SARS-CoV-2 (COVID-19) RNA (ID Now) 04/21 ABO/Rh 04/20/22 Antibody Screen Gel 04/20/22 Comprehensive Metabolic Panel (CMP) 04/09 08/31 PT/ INR 04/20/22 PTT 04/20/22 Most recent to oldest [Reference Range]: 1 2 3 WBC [5.0-10.0 x10^3/mcL] 4.9 x10^3/mcL *LOW* (04/27/22 11:26 AM) 7.0 x10^3/mcL (04/26/22 6:02 PM) 4.2 x10^3/mcL *LOW* (04/26/22 8:27 AM) RBC [4.6-6.0 x10^6/mcL] 3.0 x10^6/mcL *LOW* (04/27/22 11:26 AM) 2.8 x10^6/mcL *LOW* (04/26/22 6:02 PM) 2.8 x10^6/mcL *LOW* (04/26/22 8:27 AM) Segs Man [40-75 %] 88 % *HI* (04/22/22 3:16 PM) Lymph Man [20-50 %] 8 % *LOW* (04/22/22 3:16 PM) Neutro Auto [40.0-75.0 %] 67.3 % (04/27/22 11:26 AM) 71.9 % (04/25/22 10:01 AM) 68.9 % (04/24/22 8:34 AM) Lymph Auto [20.0-50.0 %] 19.2 % *LOW* (04/27/22 11:26 AM) 16.1 % *LOW* (04/25/22 10:01 AM) 20.4 % (04/24/22 8:34 AM) [place] Auto [2.0-15.0 %] 9.3 % (04/27/22 11:26 AM) 7.1 % (04/25/22 10:01 AM) 8.5 % (04/24/22 8:34 AM) Basophil Auto [0.0-1.0 %] 0.2 % (04/27/22 11:26 AM) 0.3 % (04/25/22 10:01 AM) 0.2 % (04/24/22 8:34 AM) Collier Man 3 % *NA* (04/22/22 3:16 PM) Eos Man 0 % *NA* (04/22/22 3:16 PM) Prothrombin Time [9.0-11.0 seconds] 10.7 seconds (04/20/22 9:10 PM) INR 1.0 *NA* (04/20/22 9:10 PM) BUN [7-18 mg/dL] 17 mg/dL (04/26/22 8:27 AM) 16 mg/dL (04/25/22 10:01 AM) 16 mg/dL (04/24/22 8:34 AM) Glucose POC [74-106 mg/dL] 175 mg/dL *HI* (04/28/22 7:17 AM) 209 mg/dL *HI* (04/27/22 8:08 PM) 198 mg/dL *HI* (04/27/22 4:38 PM) UA Color Yellow (04/24/22 8:36 PM) ABO/Rh Type A POS *Unknown* (04/24/22 9:49 AM) A POS *Unknown* (04/20/22 9:55 PM) Glucose Level [74-106 mg/dL] 172 mg/dL *HI* (04/26/22 8:27 AM) 277 mg/dL *HI* (04/25/22 10:01 AM) 192 mg/dL *HI* (04/24/22 8:34 AM) [place] Man 1 % *NA* (04/22/22 3:16 PM) Potassium Level [3.5-5.1 mmol/L] 4.3 mmol/L (04/26/22 8:27 AM) 4.4 mmol/L (04/25/22 10:01 AM) 4.2 mmol/L (04/24/22 8:34 AM) MCV [80.0-103.0 fL] 88.4 fL (04/27/22 11:26 AM) 87.9 fL (04/26/22 6:02 PM) 89.4 fL (04/26/22 8:27 AM) UA Urobilinogen Normal (04/24/22 8:36 PM) RBC Morph Abnormal (04/25/22 10:01 AM) Abnormal (04/22/22 3:16 PM) UA Bili [Negative] Negative (04/24/22 8:36 PM) UA Ketones Negative (04/24/22 8:36 PM) AST [15-37 unit/L] 23 unit/L (04/20/22 9:11 PM) ALT [14-59 unit/L] 22 unit/L (04/20/22 9:11 PM) MCHC [31.0-35.0 g/dL] 33.7 g/dL (04/27/22 11:26 AM) 34.0 g/dL (04/26/22 6:02 PM) 32.9 g/dL (04/26/22 8:27 AM) Sodium Level [136-145 mmol/L] 136 mmol/L (04/26/22 8:27 AM) 132 mmol/L *LOW* (04/25/22 10:01 AM) 136 mmol/L (04/24/22 8:34 AM) UA Leuk Est Negative (04/24/22 8:36 PM) UA Nitrite Negative (04/24/22 8:36 PM) UA Glucose [Negative] 2+ *ABN* (04/24/22 8:36 PM) Hct [41.0-51.0 %] 26.7 % *LOW* (04/27/22 11:26 AM) 24.7 % *LOW* (04/26/22 6:02 PM) 25.2 % *LOW* (04/26/22 8:27 AM) Microcyte Moderate (04/25/22 10:01 AM) Moderate (04/22/22 3:16 PM) Partial Thromboplastin Time [22-35 seconds] 21 seconds *LOW* (04/20/22 9:10 PM) Calcium Level [8.5-10.1 mg/dL] 8.2 mg/dL *LOW* (04/26/22 8:27 AM) 8.4 mg/dL *LOW* (04/25/22 10:01 AM) 7.8 mg/dL *LOW* (04/24/22 8:34 AM) Albumin Level [3.4-5.0 g/dL] 4.2 g/dL (04/20/22 9:11 PM) Protein Total [6.4-8.2 g/dL] 7.4 g/dL (04/20/22 9:11 PM) UA Protein Negative (04/24/22 8:36 PM) MCH [26.0-32.0 pg] 29.8 pg (04/27/22 11:26 AM) 29.9 pg (04/26/22 6:02 PM) 29.4 pg (04/26/22 8:27 AM) Neutro Absolute 3.3 x10^3/mcL *NA* (04/27/22 11:26 AM) 4.4 x10^3/mcL *NA* (04/25/22 10:01 AM) 4.0 x10^3/mcL *NA* (04/24/22 8:34 AM) Bilirubin Total [0.2-1.0 mg/dL] 0.7 mg/dL (04/20/22 9:11 PM) Hgb [14.0-18.0 g/dL] 9.0 g/dL *LOW* (04/27/22 11:26 AM) 8.4 g/dL *LOW* (04/26/22 6:02 PM) 8.3 g/dL *LOW* (04/26/22 8:27 AM) Alk Phos [46-146 unit/L] 73 unit/L (04/20/22 9:11 PM) UA Blood Negative (04/24/22 8:36 PM) Band Man [0-5 %] 0 % (04/22/22 3:16 PM) UA Spec Grav 1.015 *NA* (04/24/22 8:36 PM) Polychrom Small (04/25/22 10:01 AM) Rare (04/22/22 3:16 PM) Platelets [130-450 x10^3/mcL] 220 x10^3/mcL (04/27/22 11:26 AM) 197 x10^3/mcL (04/26/22 6:02 PM) 181 x10^3/mcL (04/26/22 8:27 AM) CO2 [21-32 mmol/L] 30 mmol/L (04/26/22 8:27 AM) 27 mmol/L (04/25/22 10:01 AM) 28 mmol/L (04/24/22 8:34 AM) UA pH 6.5 *NA* (04/24/22 8:36 PM) eGFR Non-AA [>=60] 75 (04/26/22 8:27 AM) 69 (04/25/22 10:01 AM) 72 (04/24/22 8:34 AM) eGFR AA [>=60] 75 (04/26/22 8:27 AM) 69 (04/25/22 10:01 AM) 72 (04/24/22 8:34 AM) UA Appear Clear (04/24/22 8:36 PM) Chloride Level [98-107 mmol/L] 102 mmol/L (04/26/22 8:27 AM) 98 mmol/L (04/25/22 10:01 AM) 101 mmol/L (04/24/22 8:34 AM) RBC Product Ready Done (04/24/22 4:49 PM) Done (04/24/22 9:49 AM) RDW-CV [11.5-17.0 %] 13.6 % (04/27/22 11:26 AM) 13.4 % (04/26/22 6:02 PM) 13.4 % (04/26/22 8:27 AM) Imm Gran Auto [0.0-0.9 %] 0.6 % (04/27/22 11:26 AM) 0.3 % (04/25/22 10:01 AM) 0.5 % (04/24/22 8:34 AM) Abs Neut Man 7.7 x10^3/mcL *NA* (04/22/22 3:16 PM) Creatinine Level [0.70-1.30 mg/dL] 1.09 mg/dL (04/26/22 8:27 AM) 1.17 mg/dL (04/25/22 10:01 AM) 1.13 mg/dL (04/24/22 8:34 AM) Antibody Screen Gel Negative ABSC (04/24/22 9:49 AM) Negative ABSC (04/20/22 9:55 PM) SARS-CoV-2 (COVID-19) RNA (ID Now) [Not Detected] Not Detected (04/21/22 1:32 AM) Plt Estimation [Adequate] Adequate (04/25/22 10:01 AM) Anion Gap [8-16 mmol/L] 4 mmol/L *NA* (04/26/22 8:27 AM) 7 mmol/L *NA* (04/25/22 10:01 AM) 8 mmol/L *NA* (04/22/22 3:16 PM) Baso Man [0-1 %] 0 % (04/22/22 3:16 PM) Eos, Auto [1.0-6.0 %] 3.4 % (04/27/22 11:26 AM) 4.3 % (04/25/22 10:01 AM) 1.5 % (04/24/22 8:34 AM) Vital Signs Most recent to oldest [Reference Range]: 1 2 3 Temperature Oral [35.8-37.3 Deg C] 37.1 Deg C (04/22/22 8:22 AM) Temperature Tympanic [36.6-37.9 Deg C] 36.8 Deg C (04/26/22 5:55 AM) 36.7 Deg C (04/26/22 5:23 AM) 36.9 Deg C (04/26/22 5:04 AM) Temperature Temporal Artery [36-38 Deg C] 36.5 Deg C (04/28/22 7:01 AM) 36.3 Deg C (04/27/22 2:29 PM) 36.8 Deg C (04/27/22 12:17 PM) Temperature Temporal Artery (DegF) [97.3-100 Deg F] 98.06 Deg F (04/27/22 6:39 AM) 97.52 Deg F (04/24/22 11:44 AM) 97.7 Deg F (04/22/22 1:05 PM) Peripheral Pulse Rate [60-100 bpm] 74 bpm (04/28/22 7:01 AM) 88 bpm (04/27/22 7:41 PM) 91 bpm (04/27/22 2:29 PM) Heart Rate Monitored [60-100 bpm] 92 bpm (04/26/22 8:45 PM) 89 bpm (04/25/22 9:00 PM) 85 bpm (04/22/22 2:45 PM) Respiratory Rate [12-24 br/min] 18 br/min (04/27/22 7:41 PM) 18 br/min (04/27/22 2:29 PM) 18 br/min (04/27/22 12:17 PM) Blood Pressure [90-140/60-90 mmHg] 122/73mmHg (04/28/22 7:01 AM) 118/70mmHg (04/27/22 2:29 PM) 117/70mmHg (04/27/22 12:17 PM) Mean Arterial Pressure, Cuff [65-140 mmHg] 80 mmHg (04/27/22 6:39 AM) 79 mmHg (04/26/22 5:55 AM) 87 mmHg (04/26/22 5:23 AM) Mean Arterial Pressure Cuff 84 mmHg (04/27/22 2:29 PM) 84 mmHg (04/27/22 12:17 PM) 76 mmHg (04/27/22 6:39 AM) Blood Pressure Location Left arm (04/26/22 5:55 AM) Left arm (04/26/22 5:23 AM) Left arm (04/26/22 5:04 AM) Blood Pressure Method Automatic (04/26/22 5:55 AM) Automatic (04/26/22 5:23 AM) Automatic (04/24/22 2:18 PM) Patient Position BP Supine (04/26/22 2:11 AM) Supine (04/26/22 1:40 AM) Weight 106.5 kg (04/28/22 7:01 AM) 107.8 kg (04/27/22 6:39 AM) 110 kg (04/25/22 6:15 AM) Weight Dosing 114.000 kg (04/22/22 6:11 AM) 111.000 kg (04/21/22 1:59 PM) 101.60 kg (04/20/22 8:59 PM) Height 178.000 cm (04/22/22 6:11 AM) 178.000 cm (04/21/22 1:59 PM) 178.000 cm (04/20/22 8:46 PM) Height/Length Dosing 178.000 cm (04/22/22 6:11 AM) 178.000 cm (04/21/22 1:59 PM) 178.000 cm (04/20/22 8:59 PM) Body Mass Index 35.980 kg/m2 (04/22/22 6:11 AM) 35.030 kg/m2 (04/21/22 1:59 PM) Social History Social History Type Response Tobacco Current everyday tob acco user Tobacco Use:. Sex Male Implantable Device List Procedure Provider Procedure Date Device Type Site Gamma Nail Santiago Krishnan MD 04/22/22 Non Biolo gical Hip R Device Identifier Serial Number Lot or Batch Number Manufacturing Date Expiration Date Distinct Identification Code MRI Safety Implantable Status Assigning Authority Unknown Unknown [id number] Unknown 10/11/30 Unknown Unknown Active Unknown Unknown Unknown [id number] Unknown 07/26/31 Unknown Unknown Active Unknown Unknown Unknown [id number] Unknown 01/05/25 Unknown Unknown Active Unk nown Unknown Unknown [id number] Unknown 07/08/24 Unknown Unknown Active Un known Unknown Unknown [id number] Unknown 01/05/23 Unknown Unknown Active Unk nown Hospital Discharge Instructions Patient Education 04/27/2022 12:39:46 Hip Fracture Treated With ORIF, Care After Hip Fracture Treated With ORIF, Care After This sheet gives you information about how to care for yourself after your procedure. Your health care provider may also give you more specific instructions. If you have problems or questions, contact your health care provider. What can I expect after the procedure? After the procedure, it is common to have: ??? Pain. You will be given medicines to treat this. ??? Swelling. ??? Difficulty walking. ??? Some redness or bruising around the incision. ??? A small amount of fluid or blood from the incision. Follow these instructions at home: Medicines ??? Take haug-ixx-ldakohl and prescription medicines only as told by your health care provider. ??? You may be given a blood thinner to take for up to six weeks. This will help reduce the risk ofdeveloping a blood clot. It is important to use this medicine exactly as directed. ??? You may be given calcium and vitamin D supplements to strengthen your bones. ??? If you are taking prescription pain medicine, take actions to prevent or treat constipation. Your health care provider may recommend that you: ??? Drink enough fluid to keep your urine pale yellow. ??? Eat foods that are high in fiber, such as fresh fruits and vegetables, whole grains, and beans. ??? Limit foods that are high in fat and processed sugars, such as fried or sweet foods. ??? Take an qzxh-oaa-iehphga or prescription medicine for constipation. Bathing ??? Do not take baths, swim, or use a hot tub until your health care provider approves. Ask your health care provider if you can take showers. You may only be allowed to take sponge baths. ??? Keep the bandage (dressing) dry until your health care provider says it can be removed. Incision care ??? Follow instructions from your health care provider about how to take care of your incision. Make sure you: ??? Wash your hands with soap and water before you change your dressing. If soap and water are not available, use hand getter filler. ??? Change your dressing as told by your health care provider. ??? Leave stitches (sutures), skin glue, or adhesive strips in place. These skin closures may need to stay in place for 2 weeks or longer. If adhesive strip edges start to loosen and curl up, you maytrim the loose edges. Do not remove adhesive strips completely unless your health care provider tells you to do that. ??? Check your incision area every day for signs of infection. Check for: ??? More redness, swelling, or pain. ??? More fluid or blood. ??? Warmth. ??? Pus or a bad smell. Managing pain, stiffness, and swelling ??? If directed, put ice on the affected area to prevent pain and swelling. ??? Put ice in a plastic bag. ??? Place a towel between your skin and the bag. ??? Leave the ice on for 20 minutes, 2???3 times a day. ??? Move your toes often to avoid stiffness and to lessen swelling. ??? Raise (elevate) your leg above the level of your heart while you are sitting or lying down. To do this, try putting a few pillows under your leg. Activity ??? Return to your normal activities as told by your health care provider. Ask your health care provider what activities are safe for you. ??? Do exercises as told by your health care provider or physical therapist. This will help make your hip stronger and help you recover more quickly. ??? Do not use your injured limb to support (bear) your body weight until your health care providersays that you can. Follow weight-bearing restrictions as told. Use crutches or other devices to help you move around (assistive devices) as directed. ??? You may feel most comfortable using a raised surface when sitting on the toilet or in a chair. ??? Consider using a toilet seat riser over the toilet for comfort. Driving ??? Do not drive or use heavy machinery while taking prescription pain medicine. ??? Ask your health care provider when it is safe for you to drive. General instructions ??? Wear compression stockings as told by your health care provider. These stockings help to prevent blood clots and reduce swelling in your legs. ??? Do not use any products that contain nicotine or tobacco, such as cigarettes and e-cigarettes. These can delay bone healing. If you need help quitting, ask your health care provider. ??? Keep all follow-up visits as told by your health care provider. This is important. This may include visits for: ??? Physical therapy. ??? Screening for osteoporosis. Osteoporosis is thinning and loss of density in your bones. Contact a health care provider if you: ??? Have a fever. ??? Have pain that is not helped with medicine. ??? Have more redness, swelling, or pain at your incision area. ??? Have more fluid or blood coming from your incision or leaking through your dressing. ??? Notice that your incision feels warm to the touch. ??? Have pus or a bad smell coming from your incision area. Get help right away if you: ??? Notice that the edges of your incision have come apart after the sutures or nidhi have been removed. ??? Have pain, warmth, or tenderness in the back of your lower leg (calf). ??? Have tingling or numbness in your leg. ??? Have a pale and cold leg. ??? Have trouble breathing. ??? Have chest pain. Summary ??? After the procedure, it is common to have some pain and swelling. ??? Take pain medicines as directed by your health care provider. Icing may also help with pain control. ??? Contact your health care provider if you have signs of infection, severe pain, or more fluid orblood coming from your incision. This information is not intended to replace advice given to you by your health care provider. Make sure you discuss any questions you have with your health care provider. Document Revised: 03/16/2019 Document Reviewed: 08/06/2018 [employer] Patient Education ?? 2021 [employer] Follow Up Care 04/20/2022 20:46:16 With:Elizabeth Horn Address: [facility] [address] [place] [address]- When:1 month Patient Care team information Personnel Name: Elizabeth Horn Address: Address: [facility] [address] [place], [place] [address]
--- OUTSIDE RECORDS SUMMARY | 2023-08-17 15:47 | XMS_ITS | Continuity of Care Document ---
Author Name Unknown Organization [facility] Address [address] [place] [address] Care Team Providers Care Transfer Worker Name Role Phone Elizabeth Horn Primary Care Physician Encounter [facility] Date(s): 04/19/23 - 04/19/[address] [address] Encounter Diagnosis Femur fracture(Discharge Diagnosis) - 04/19/23 Discharge Disposition: Home or Self Care Attending Physician: Santiago Cornell MD Admitting Physician: Santiago Cornell MD Referring Physician: Elizabeth Horn MD Allergies, Adverse Reactions, Alerts Substance Reaction [...] ankle tendonitis Start Date: 03/07/22 Status: Ordered docusate sodium 100 mg oral capsule 100 mg = 1 cap, Oral, BID, PRN constipation, 0 Refill(s) Start Date: 04/29/22 Status: Ordered gabapentin 800 mg oral tablet 800 mg = 1 tab, Oral, TID, # 90 tab, 0 Refill(s) Start Date: 03/03/22 Status: Ordered glipiZIDE 10 mg oral tablet, extended release 10 mg = 1 tab, Oral, BID, 0 Refill(s) Start Date: 03/04/22 Status: Ordered insulin lispro 100 units/mL injectable solution Moderate Scale, Subcutaneous, QID(ACHS), 0 Refill(s) Start Date: 04/29/22 Status: Ordered lisinopril 5 mg oral tablet 10 mg = 2 tab, Oral, Daily, 0 Refill(s) Start Date: 04/29/22 Status: Ordered metFORMIN 1000 mg oral tablet, extended release 1,000 mg = 1 tab, Oral, BID, # 120 tab, 0 Refill(s) Start Date: 03/03/22 Status: Ordered oxyCODONE 10 mg oral tablet 10 mg = 1 tab, Oral, every 4 hr, PRN pain, severe, # 30 tab, 0 Refill(s), Pharmacy: [facility], 178, cm, 04/22/22 6:28:00 EDT, Height/Length Dosing, 114, kg, 04/22/22 6:28:00 EDT, Weight Dosing Start Date: 04/29/22 Stop Date: 05/06/22 Status: Ordered pantoprazole 40 mg oral delayed release tablet 40 mg = 1 tab, Oral, BID, # 60 tab, 0 Refill(s) Start Date: 03/03/22 Status: Ordered polyethylene glycol 3350 17 g =, Oral, Daily, PRN constipation, # 255 g, 0 Refill(s) Start Date: 04/29/22 Stop Date: 05/06/22 Status: Ordered ProAir HFA 90 mcg/inh inhalation aerosol 2 puffs, Inhale, every 4 hr, PRN as needed for wheezing, # 8.5 g, 0 Refill(s) Start Date: 03/03/22 Status: Ordered senna 8.6 mg oral tablet 17.2 mg = 2 tab, Oral, Daily, PRN constipation, 0 Refill(s) Start Date: 04/29/22 Status: Ordered tamsulosin 0.4 mg oral capsule [...] List Condition Confirmation Course Effective Dates Status Health Status Informant Acute blood loss anemia Confirmed Active Acute blood loss as cause of postoperative anemia Confirmed Active Anxiety Confirmed Active Chronic pain Confirmed Active Fracture of hip, right, closed Confirmed Active Depression Confirmed Active Dyspnea on exertion Confirmed Active Hip fx Confirmed Active Fracture of distal humerus Confirmed Active GERD - Gastro-esophageal reflux disease Confirmed Active History of BPH Confirmed Active History of alcohol abuse Confirmed Active History of bariatric surgical procedure Confirmed Active Hypertension Confirmed Active Hypomagnesemia Confirmed Active Intertrochanteric fracture of right hip Confirmed Active Low back pain Confirmed Active [...] Procedure Date Related Diagnosis Body Site Status ORIF - Open reduction and in ternal fixation of fracture 1 04/19/22 Completed Procedure on shoulder 10/07/18 Com pleted Knee replacement - bilateral 02/21/18 Completed Gastric bypass 10/07/09 Completed 1ORIF R hip fx Social History Social History Type Response Tobacco Current everyday tob acco user Tobacco Use:. Sex Male Implantable Device List Procedure Provider Procedure Date Device Type Site Gamma Nail Long Santiago Cornell MD 04/22/22 Non Biolo gical Hip R Device Identifier Serial Number Lot or Batch Number Manufacturing Date Expiration Date Distinct Identification Code MRI Safety Implantable Status Assigning Authority Unknown Unknown [id number] Unknown 10/11/30 Unknown Unknown Active Unknown Unknown Unknown [id number] Unknown 07/26/31 Unknown Unknown Active Unknown Unknown Unknown [id number] Unknown 01/05/25 Unknown Unknown Active Unk nown Unknown Unknown [id number] Unknown 07/08/24 Unknown Unknown Active Un known Unknown Unknown [id number] Unknown 01/05/23 Unknown Unknown Active Unk nown Patient Care team information Care Team Personnel Name: Marisa Carbajal NP Position: Physician Member Role: Nurse Practitioner Name: Santiago Cornell MD Position: Physician Member Role: Informed Provider Address: Address: [facility] [address] [place] [id number] [place] Name: Elizabeth Horn MD Position: No Access Member Role: Primary Care Physician Address: Address: [address] [place] [address] [place] Care Team Related Persons Name: JENIFFER VAZQUEZ Name: TEETEE VAZQUEZ Address: [address] [id number]
--- OUTSIDE RECORDS SUMMARY | 2023-08-17 15:48 | XMS_ITS | Continuity of Care Document ---
Author Name Unknown Organization [facility] Address [address] [place] [address] Care Team Providers Care Gas Derrick Operator Name Role Phone Elizabeth Horn Primary Care Physician Encounter [facility] Date(s): 01/16/23 - 01/16/23 [facility] [address] [place] [address] Encounter Diagnosis VIJAY - Obstructive sleep apnea(Discharge Diagnosis) - 01/15/23 Obstructive sleep apnea (adult) (pediatric)(Final) - Discharge Disposition: Home or Self Care Attending Physician: [facility] Allergies, Adverse Reactions, Alerts Substance Reaction Severity Status ADHESIVE TAPE Unknown Active atorvastatin Unknown Active Assessment and Plan Future Appointments Functional Status 01/16/23 Other exposure to Infectious Disease Non e [...] severe, # 30 tab, 0 Refill(s), [facility]acy: [facility], 178, cm, 04/22/22 6:28:00 EDT, [...] bypass 10/07/09 Completed 1ORIF R hip fx Vital Signs Most recent to oldest [Reference Range]: 1 Peripheral Pulse Rate [60-100 bpm] 78 bp m (01/16/23 12:37 PM) Blood Pressure [90-140/60-90 mmHg] 115/8 5mmHg (01/16/23 12:37 PM) Weight 100.24 kg (01/16/23 12:37 PM) Weight Measured (lbs) 220.991 lb (01/16/23 12:37 PM) Height 178 cm (01/16/23 12:37 PM) Height/Length Measured (inches) 70.08 in ch (01/16/23 12:37 PM) BSA Measured 2.23 m2 (01/16/23 12:37 PM) Body Mass Index 31.64 kg/m2 (01/16/23 12:37 PM) Social History Social History Type Response Tobacco Current everyday tob acco user Tobacco Use:. Sex Male Implantable Device List Procedure Provider Procedure Date Device Type Site Gamma Nail Long Santiago Cornell MD 04/22/22 Non Biolo gical Hip R Device Identifier Serial Number Lot or Batch Number Manufacturing Date Expiration Date Distinct Identification Code MRI Safety Implantable Status Assigning Authority Unknown Unknown [id number] Unknown 10/11/30 Unknown Unknown Active Unknown Unknown Unknown [id number] Unknown 07/26/31 Unknown Unknown Active Unknown Unknown Unknown [id number] Unknown 01/05/25 Unknown Unknown Active Unk nown Unknown Unknown [id number] Unknown 07/08/24 Unknown Unknown Active Un known Unknown Unknown [id number] Unknown 01/05/23 Unknown Unknown Active Unk nown Progress note * Everardo Vasquez M: PERFORM Event Display: Progress Note - Physician Authored Date: Physician Outpatient Note * [facility]: PERFORM Event Display: Office Clinic Note Physician Authored Date: [id number] ELIZABETH VAZQUEZ :1955 Age:67 years Sex:Male Visit Date:01/16/2023 Primary Care Physician: Elizabeth Horn MD History of Present Illness Elizabeth Vazquze is a 67-year-old man who has a visit for follow-up on obstructive sleep apnea. He initially showed up for his 1215 appointment at 1000 today and was again told it was at 1215 and then checked in 20 minutes late. Then he took a phone call as soon as I came into the room to discuss his dog with his (who was at the vet).? He was last seen by me on 08/05/2022. He has a medical history to include anemia, anxiety, depression, chronic pain, HTN, GERD, alcohol abuse, DM, obesity, OA, PLMS and VIJAY. ?? PSG 06/07/19 (BMI 34.17) AHI 11.3/hr, sp02 reymundo 77%, PLMi 71/hr, PLMai 6/hr. Titration 09/15/19 (BMI 34.17), CPAP 11 cm was successful in supine REM, PLMi 55.9/hr, PLMai 2.2/hr, CPAP 7-13 cm recommended. ?? At his last visit he was NOT using CPAP 6-14 cm because he was evicted from his rental and his CPAPwas put in a bag outside and it it got wet and ruined it. He said he tried to use it again and itwas reading an error message and pm technician needed. ?? I ordered CPAP 6-14 cm at that time and we were notified he needed another PSG to qualify. He had this done in 08/2022 and AHI was 11/hr. CPAP ordered at that time and there was a very long delay withJose Cruz getting him a CPAP and after multiple communications with Jose Cruz he was finally set up with a CPAP about two weeks ago. ?? He says he started using it about five days ago. He says that thinks things are good but his mask is old and he needs a new cushion. He has not yet asked them for one. The air pressure feels good.He is not yet sure if he feels any different. He sleeps through the night with CPAP unless the dogswake him up to go out. His said he is not snoring with CPAP on. ?? COMPLIANCE DATA REVIEWED WITH PATIENT: Dates 12/17/22-01/15/23, Used 04/08 nights, average use 5 hrsand 12??minutes. Mean pressure cm, 90th percentile pressure cm, time in large air leak minutes, AHI/hr. Physical Exam Vitals & Measurements HR:??78??(Peripheral)?? BP:??115/85?? SpO2:??98%?? HT:??178??cm?? WT:??100.24??kg?? BMI:??31.64?? BSA:??2.23?? N/A Clinic Assessment/Plan 1.??VIJAY - Obstructive sleep apnea??G47.33 VIJAY diagnosed in 2019 with an AHI of 11.3/hr. He recently started back on CPAP 6-14 cm after a longperiod without one when his broke. He has been using it for about 10 days, he sleeps more soundly and snoring is gone per his , continued use is recommended. He needs a new nasal pillow mask so Iput in an order to Jose Cruz to get him this. He is advised to keep up with the routine maintenance of the machine and to clean/replace parts as needed. I will see him back in six months. He is asked to call our office for any sleep related questions or concerns.?? I provided greater than 30 minutes in the care of this patient, more than half the time was spent in [id number] counseling. Problem List/Past Medical History Ongoing Acute blood loss anemia Acute blood loss as cause of postoperative anemia Anxiety Chronic pain Depression Dyspnea on exertion Fracture of distal humerus Fracture of hip, right, closed GERD - Gastro-esophageal reflux disease Hip fx History of alcohol abuse History of bariatric surgical procedure History of BPH Hypertension Hypomagnesemia Intertrochanteric fracture of right hip Low back pain Lyme disease Memory impairment Nasal congestion Obesity VIJAY - Obstructive sleep apnea Osteoarthritis Otalgia of right ear Pain of right shoulder joint Periodic leg movements of sleep Type 2 diabetes mellitus Historical No qualifying data Procedure/Surgical History ???ORIF - Open reduction and internal fixation of fracture (04/20/2022)???Procedure on shoulder (10/08/2018)???Knee replacement - bilateral (02/22/2018)???Gastric bypass (10/08/2009) Medications What How Much When Instructions Unchanged acetaminophen (acetaminophen 500 mg oral tablet) 2 tab Oral (given by mouth) Every 6 hours as needed for other (see comment) as needed ?? Unchanged albuterol (ProAir HFA 90 mcg/ inh inhalation aerosol) 2 Puffs Inhale (breathe in) Every 4 hours as needed for as needed for wheezing Unchanged aspirin (aspirin 81 mg oral delayed release tablet) 1 tab Oral (given by mouth) Every day Unchanged cholecalciferol (Vitamin D3 2000 intl units oral capsule) 1 Capsules Oral (given by mouth) Every day For 90 days ?? Unchanged diclofenac topical (diclofenac 1% topical gel) 2 Gram Topical (on the skin) Every 8 hours as needed for ankle tendonitis Unchanged docusate (docusate sodium 100 mg oral capsule) 1 Capsules Oral (given by mouth) 2 times a day as needed for constipation Unchanged dulaglutide (Trulicity Pen 1.5 mg/ 0.5 mL subcutaneous solution) 1.5 Milligrams Subcutaneous (under the skin) Every week Unchanged gabapentin (gabapentin 800 mg oral tablet) 1 tab Oral (given by mouth) 3 times a day Unchanged glipiZIDE (glipiZIDE 10 mg oral tablet, extended release) 1 tab Oral (given by mouth) 2 times a day Unchanged insulin lispro (insulin lispro 100 units/ mL injectable solution) Moderate Scale Subcutaneous (under the skin) 4 times a day (before meals and at bedti Unchanged lisinopril (lisinopril 5 mg oral tablet) 2 tab Oral (given by mouth) Every day Unchanged metFORMIN (metFORMIN 1000 mg oral tablet, extended release) 1 tab Oral (given by mouth) 2 times a day Unchanged oxyCODONE (oxyCODONE 10 mg oral tablet) 1 tab Oral (given by mouth) Every 4 hours as needed for pain, severe Duration: 7 Days Unchanged pantoprazole (pantoprazole 40 mg oral delayed release tablet) 1 tab Oral (given by mouth) 2 times a day Unchanged polyethylene glycol 3350 17 Gram Oral (given by mouth) Every day as needed for constipation Duration: 7 Days Unchanged senna (senna 8.6 mg oral tablet) 2 tab Oral (given by mouth) Every day as needed for constipation Unchanged tamsulosin (tamsulosin 0.4 mg oral capsule) 1 Capsules Oral (given by mouth) Every night at bedtime Unchanged venlafaxine (venlafaxine 150 mg oral capsule, extended release) 1 Capsules Oral (given by mouth) Every day along with a 75mg capsule for a total dose ??of 225mg daily ?? Unchanged venlafaxine (venlafaxine 75 mg oral capsule, extended release) 1 Capsules Oral (given by mouth) Every day along with a 150 mg capsule for a total dose of 225mg daily ?? Allergies ADHESIVE TAPE atorvastatin Social History Electronic Cigarette/Vaping Electronic Cigarette Use: Never. Tobacco Current everyday tobacco user Tobacco Use:. Family History Alzheimer's disease: Mother. Cancer of colon: Father. Immunizations Vaccine Date Status SARS-CoV-2 (COVID-19) mRNA BNT-162b2 vax 04/14/2021 Recorded SARS-CoV-2 (COVID-19) mRNA BNT-162b2 vax 10/20/2020 Recorded SARS-CoV-2 (COVID-19) mRNA BNT-162b2 vax 09/19/2020 Recorded influenza virus vaccine, live 04/09/2019 Recorded influenza virus vaccine, live 04/06/2018 Recorded tetanus/diphth/pertuss (Tdap) adult/adol 07/16/2014 Recorded pneumococcal 23-polyvalent vaccine 07/16/2014 Recorded Electronically Signed on 01/16/23 12:53 PM [facility] Patient Care team information Care Team Personnel Name: Marisa Carbajal NP Position: Physician Member Role: Nurse Practitioner Name: Elizabeth Horn MD Position: No Access Member Role: Primary Care Physician Address: Address: [address] [place], [place] [address] Care Team Related Persons Name: JENIFFER VAZQUEZ Address: Home Name: TEETEE VAZQUEZ Address: Home [address] [id number]
--- OUTSIDE RECORDS SUMMARY | 2023-08-17 15:48 | XMS_ITS | Continuity of Care Document ---
Author Name Unknown Organization [facility] Address [address] [place] [address] Care Team Providers Care [employer] Sales Name Role Phone Elizabeth Horn Primary Care Physician Encounter [facility] Date(s): 04/27/22 - 04/29/[address] [address] Encounter Diagnosis Intertrochanteric fracture of right hip(Discharge Diagnosis) - 04/29/22 Acute blood loss as cause of postoperative anemia(Discharge Diagnosis) - 04/29/22 Type 2 diabetes mellitus(Discharge Diagnosis) - 04/29/22 Discharge Disposition: Discharge/Transfer - Other Type of Inst Attending Physician: Puneet Davdison MD Admitting Physician: Puneet Davidson MD Allergies, Adverse Reactions, Alerts Substance Reaction Severity Status ADHESIVE TAPE Unknown Active atorvastatin Unknown Active Assessment and Plan Future Appointments Functional Status 04/28/22 Living Environment No Living Environmen t Information Available Lives With Spouse Immunizations Given and Recorded Vaccine Date Status [...] 0 Refill(s) Start Date: 04/29/22 Status: Ordered enoxaparin 40 mg/0.4 mL injectable solution 40 mg = 0.4 mL, Subcutaneous, every 24 hr, 0 Refill(s) Start Date: 04/29/22 Status: Ordered [...] severe, # 30 tab, 0 Refill(s), Pharmacy: [id number], [id number], cm, 04/22/22 6:28:00 EDT, [...] Results Laboratory List Name Date Glucose POCT 04/29/22 SARS-CoV-2 (COVID-19) RNA (ID Now) 04/29 Glucose POCT 04/29/22 Glucose POCT 04/28/22 Most recent to oldest [Reference Range]: 1 2 3 Glucose POC [74-106 mg/dL] 276 mg/dL *HI* (04/29/22 11:28 AM) 212 mg/dL *HI* (04/29/22 7:50 AM) 213 mg/dL *HI* (04/28/22 7:54 PM) SARS-CoV-2 (COVID-19) RNA (ID Now) [Not Detected] Not Detected (04/29/22 10:13 AM) Vital Signs Most recent to oldest [Reference Range]: 1 2 Temperature Temporal Artery [36-38 Deg C ] 36.6 Deg C (04/29/22 6:50 AM) 36.5 Deg C (04/28/22 7:40 AM) Peripheral Pulse Rate [60-100 bpm] 74 bp m (04/29/22 6:50 AM) 74 bpm (04/28/22 7:40 AM) Respiratory Rate [12-24 br/min] 19 br/mi n (04/29/22 6:50 AM) 18 br/min (04/28/22 7:40 AM) Blood Pressure [90-140/60-90 mmHg] 126/7 5mmHg (04/29/22 6:50 AM) 122/73mmHg (04/28/22 7:40 AM) Mean Arterial Pressure Cuff 90 mmHg (04/29/22 6:50 AM) Weight 106 kg (04/29/22 6:50 AM) 106.5 kg (04/28/22 7:40 AM) Social History Social History Type Response Tobacco Current everyday tob acco user Tobacco Use:. Sex Male Implantable Device List Procedure Provider Procedure Date Device Type Site Gamma Nail Santiago Krishnan MD 04/22/22 Non Biolo gical Hip R Device Identifier Serial Number Lot or Batch Number Manufacturing Date Expiration Date Distinct Identification Code MRI Safety Implantable Status Assigning Authority Unknown Unknown [id number] Unknown 10/11/30 Unknown Unknown Active Unknown Unknown Unknown [id number] Unknown 07/26/31 Unknown Unknown Active Unknown Unknown Unknown [id number] Unknown 01/05/25 Unknown Unknown Active Unk nown Unknown Unknown [id number] Unknown 07/08/24 Unknown Unknown Active Un known Unknown Unknown [id number] Unknown 01/05/23 Unknown Unknown Active Unk nown Hospital Discharge Instructions Patient Education 04/29/2022 07:53:41 Hip Fracture Treated With ORIF, Care After [...] these instructions at home: Medicines ??? Take kill-tzo-vkhzbfw and prescription medicines only as told by [...] fried or sweet foods. ??? Take an jafa-uje-gzltrml or prescription medicine for constipation. Bathing ??? [...] and water are not available, use hand ethical hacker. ??? Change your dressing as told by [...] provider. Document Revised: 03/16/2019 Document Reviewed: 08/06/2018 [employer] Patient Education ?? 2021 [employer] 04/29/2022 07:53:04 Blood Glucose Monitoring, Adult Blood Glucose Monitoring, Adult Monitoring your blood sugar (glucose) is an important part of managing your diabetes. Blood glucosemonitoring involves checking your blood glucose as often as directed and keeping a log or record ofyour results over time. Checking your blood glucose regularly and keeping a blood glucose log can: ??? Help you and your health care provider adjust your diabetes management plan as needed, including your medicines or insulin. ??? Help you understand how food, exercise, illnesses, and medicines affect your blood glucose. ??? Let you know what your blood glucose is at any time. You can quickly find out if you have low blood glucose (hypoglycemia) or high blood glucose (hyperglycemia). Your health care provider will set individualized treatment goals for you. Your goals will be basedon your age, other medical conditions you have, and how you respond to diabetes treatment. Generally, the goal of treatment is to maintain the following blood glucose levels: ??? Before meals (preprandial): 80???130 mg/dL (4.4???7.2 mmol/L). ??? After meals (postprandial): below 180 mg/dL (10 mmol/L). ??? A1C level: less than 7%. Supplies needed: ??? Blood glucose meter. ??? Test strips for your meter. Each meter has its own strips. You must use the strips that came with your meter. ??? A needle to prick your finger (lancet). Do not use a lancet more than one time. ??? A device that holds the lancet (lancing device). ??? A journal or log book to write down your results. How to check your blood glucose Checking your blood glucose 1. Wash your hands for at least 20 seconds with soap and water. 2. Prick the side of your finger (not the tip) with the lancet. Do not use the same finger consecutively. 3. Gently rub the finger until a small drop of blood appears. 4. Follow instructions that come with your meter for inserting the test strip, applying blood to the strip, and using your blood glucose meter. 5. Write down your result and any notes in your log. Using alternative sites Some meters allow you to use areas of your body other than your finger (alternative sites) to test your blood. The most common alternative sites are the forearm, the thigh, and the palm of your hand. Alternative sites may not be as accurate as the fingers because blood flow is slower in those areas. This means that the result you get may be delayed, and it may be different from the result that you would get from your finger. Use the finger only, and do not use alternative sites, if: ??? You think you have hypoglycemia. ??? You sometimes do not know that your blood glucose is getting low (hypoglycemia unawareness). General tips and recommendations Blood glucose log ??? Every time you check your blood glucose, write down your result. Also write down any notes about things that may be affecting your blood glucose, such as your diet and exercise for the day. This information can help you and your health care provider: ??? Look for patterns in your blood glucose over time. ??? Adjust your diabetes management plan as needed. ??? Check if your meter allows you to download your records to a computer or if there is an leanna forthe meter. Most glucose meters store a record of glucose readings in the meter. If you have type 1 diabetes: ??? Check your blood glucose 4 or more times a day if you are on intensive insulin therapy with multiple daily injections (MDI) or if you are using an insulin pump. Check your blood glucose: ??? Before every meal and snack. ??? Before bedtime. ??? Also check your blood glucose: ??? If you have symptoms of hypoglycemia. ??? After treating low blood glucose. ??? Before doing activities that create a risk for injury, like driving or using machinery. ??? Before and after exercise. ??? Two hours after a meal. ??? Occasionally between 2:00 a.m. and 3:00 a.m., as directed. ??? You may need to check your blood glucose more often, 6???10 times per day, if: ??? You have diabetes that is not well controlled. ??? You are ill. ??? You have a history of severe hypoglycemia. ??? You have hypoglycemia unawareness. If you have type 2 diabetes: ??? Check your blood glucose 2 or more times a day if you take insulin or other diabetes medicines. ??? Check your blood glucose 4 or more times a day if you are on intensive insulin therapy. Occasionally, you may also need to check your glucose between 2:00 a.m. and 3:00 a.m., as directed. ??? Also check your blood glucose: ??? Before and after exercise. ??? Before doing activities that create a risk for injury, like driving or using machinery. ??? You may need to check your blood glucose more often if: ??? Your medicine is being adjusted. ??? Your diabetes is not well controlled. ??? You are ill. General tips ??? Make sure you always have your supplies with you. ??? After you use a few boxes of test strips, adjust (calibrate) your blood glucose meter by following instructions that came with your meter. ??? If you have questions or need help, all blood glucose meters have a 24-hour hotline phone number available that you can call. Also contact your health care provider with questions or concerns youmay have. Where to find more information ??? The [place] [employer]: www.diabetes.org ? ? The Association of Diabetes [employer] & Education Specialists: www.diabeteseducator.org Contact a health care provider if: ??? Your blood glucose is at or above 240 mg/dL (13.3 mmol/L) for 2 days in a row. ??? You have been sick or have had a fever for 2 days or longer, and you are not getting better. ??? You have any of the following problems for more than 6 hours: ??? You cannot eat or drink. ??? You have nausea or vomiting. ??? You have diarrhea. Get help right away if: ??? Your blood glucose is lower than 54 mg/dL (3 mmol/L). ??? You become confused, or you have trouble thinking clearly. ??? You have difficulty breathing. ??? You have moderate or large ketone levels in your urine. These symptoms may represent a serious problem that is an emergency. Do not wait to see if the symptoms will go away. Get medical help right away. Call your local emergency services (911 in the [place] Do not drive yourself to the hospital. Summary ??? Monitoring your blood glucose is an important part of managing your diabetes. ??? Blood glucose monitoring involves checking your blood glucose as often as directed and keeping a log or record of your results over time. ??? Your health care provider will set individualized treatment goals for you. Your goals will be based on your age, other medical conditions you have, and how you respond to diabetes treatment. ??? Every time you check your blood glucose, write down your result. Also, write down any notes about things that may be affecting your blood glucose, such as your diet and exercise for the day. This information is not intended to replace advice given to you by your health care provider. Make sure you discuss any questions you have with your health care provider. Document Revised: 03/24/2021 Document Reviewed: 03/24/2021 [employer] Patient Education ?? 2021 [employer] Follow Up Care 04/27/2022 16:43:13 With:Follow up with specialist Address: When:1 to 2 weeks Comments:Orthopedics:??Santigao Cornell MD With:Elizabeth Horn Address: [facility] [address] [address]- When:1 month Patient Care team information Personnel Name: Elizabeth Horn Address: Address: [facility] [address] [place], [place] [address]
--- OUTSIDE RECORDS SUMMARY | 2023-08-17 15:48 | XMS_ITS | Continuity of Care Document ---
Author Name Unknown Organization [facility] Address [address] [place] [address] Care Team Providers Care Satellite Dish Technician Name Role Phone Elizabeth Horn Primary Care Physician Encounter [facility] Date(s): 06/29/23 - 06/29/[address] [address] Encounter Diagnosis Orthostatic hypotension(Discharge Diagnosis) - 06/29/23 Bladder outlet obstruction(Discharge Diagnosis) - 06/29/23 Discharge Disposition: Home or Self Care Attending Physician: Jazmyne Collazo MD Admitting Physician: Jazmyne Collazo MD Allergies, Adverse Reactions, Alerts Substance Reaction Severity Status ADHESIVE TAPE Unknown Active atorvastatin Unknown Active Assessment and Plan Extracted from: Title:Clinical Document Author:Jerica Contreras te:06/29/23 Diagnosis: 1. Orthostatic hy potension Comment: Diagnosis: 2. Bladder outlet obstruction Comment: Diagnosis: Syncope/Near syncope Comment: Future Appointments Functional Status 06/29/23 Family Member Travel History No recent t ravel Recent Travel History No recent travel Other [...] severe, # 30 tab, 0 Refill(s), Pharmacy: [id number], cm, 04/22/22 6:28:00 EDT, [...] 90 days Start Date: 03/07/22 Status: Ordered Mental Status 06/29/23 Eye Opening Response Miguel Angel To voice Best Verbal Response Miguel Angel Oriented Best Motor Response Miguel Angel Obeys comman ds Miguel Angel Coma Score 14 Problem List Condition Confirmation Course Effective Dates [...] bypass 10/07/09 Completed 1ORIF R hip fx Results Laboratory List Name Date Drug Screen Urine 06/29/23 Urinalysis Microscopic 06/29/23 Urinalysis with Microscopic 06/29/23 SARS-CoV-2 (COVID-19)/Flu/RSV ([facility] ) 06/29/23 Glucose POCT 06/29/23 Alcohol Level 06/29/23 CBC w/ Diff 06/29/23 Comprehensive Metabolic Panel (CMP) 06/10 08/01 Hemoglobin A1c 06/29/23 Magnesium Level 06/29/23 Troponin-I 06/29/23 Automated Diff 06/29/23 Most recent to oldest [Reference Range]: 1 WBC [5.0-10.0 x10^3/mcL] 6.5 x10^3/mcL (06/29/23 11:37 AM) RBC [4.6-6.0 x10^6/mcL] 4.9 x10^6/mcL (06/29/23 11:37 AM) Neutro Auto [40.0-75.0 %] 65.0 % (06/29/23 11:37 AM) Lymph Auto [20.0-50.0 %] 23.9 % (06/29/23 11:37 AM) Franklin Auto [2.0-15.0 %] 8.9 % (06/29/23 11:37 AM) Basophil Auto [0.0-1.0 %] 0.2 % (06/29/23 11:37 AM) BUN [7-18 mg/dL] 20 mg/dL *HI* (06/29/23 11:37 AM) Glucose POC [74-106 mg/dL] 104 mg/dL (06/29/23 11:52 AM) U Amph Scrn [Negative] Negative 1 (06/29/23 12:35 PM) UA Color Yellow (06/29/23 12:35 PM) UA WBC [0-3] 0-3 (06/29/23 12:35 PM) Glucose Level [74-106 mg/dL] 119 mg/dL *HI* (06/29/23 11:37 AM) Potassium Level [3.5-5.1 mmol/L] 4.5 mmo l/L (06/29/23 11:37 AM) U Benzodia Scrn [Negative] Negative (06/29/23 12:35 PM) MCV [80.0-96.0 fL] 85.8 fL (06/29/23 11:37 AM) UA Urobilinogen Normal (06/29/23: PM) UA Bili [Negative] Negative (06/29/23: PM) UA Ketones Negative (06/29/23: PM) AST [15-37 unit/L] 18 unit/L (06/29/23 11:37 AM) ALT [16-63 unit/L] 28 unit/L (06/29/23 11:37 AM) MCHC [31.0-35.0 g/dL] 34.6 g/dL (06/29/23 11:37 AM) Troponin-I [0.0-76.2 pg/mL] 5.3 pg/mL (06/29/23 11:37 AM) Sodium Level [136-145 mmol/L] 134 mmol/L *LOW* (06/29/23 11:37 AM) UA RBC [0-2] 0-2 (06/29/23 12:35 PM) UA Leuk Est Negative (06/29/23:35 PM) UA Nitrite Negative (06/29/23:35 PM) UA Glucose [Negative] Negative (06/29/23:35 PM) Hct [41.0-51.0 %] 42.2 % (06/29/23 11:37 AM) UA Bacteria None Seen /HPF (06/29/23: PM) U Cocaine Scrn [Negative] Negative (06/29/23:35 PM) Calcium Level [8.5-10.1 mg/dL] 8.9 mg/dL (06/29/23 11:37 AM) Albumin Level [3.4-5.0 g/dL] 3.8 g/dL (06/29/23 11:37 AM) Protein Total [6.4-8.2 g/dL] 7.2 g/dL (06/29/23 11:37 AM) UA Protein Negative (06/29/23 12:35 PM) MCH [26.0-32.0 pg] 29.7 pg (06/29/23 11:37 AM) Magnesium Level [1.8-2.4 mg/dL] 1.8 mg/d L (06/29/23 11:37 AM) Neutro Absolute 4.2 x10^3/mcL *NA* (06/29/23 11:37 AM) Bilirubin Total [0.2-1.0 mg/dL] 0.6 mg/d L (06/29/23 11:37 AM) Hgb [14.0-18.0 g/dL] 14.6 g/dL (06/29/23 11:37 AM) Alk Phos [46-146 unit/L] 82 unit/L (06/29/23 11:37 AM) UA Blood Negative (06/29/23 12:35 PM) Ethanol Level [0-10 mg/dL] <5 mg/dL (06/29/23 11:37 AM) UA Mucous None Seen /HPF (06/29/23 12:35 PM) UA Spec Grav 1.010 *NA* (06/29/23 12:35 PM) Platelets [130-450 x10^3/mcL] 184 x10^3/ mcL (06/29/23 11:37 AM) CO2 [21-32 mmol/L] 24 mmol/L (06/29/23 11:37 AM) U Bonnie Scrn [Negative] Negative (06/29/23 12:35 PM) UA Squam Epithelial [None Seen] None See n (06/29/23 12:35 PM) UA pH 5.5 *NA* (06/29/23 12:35 PM) U Opiate Scrn [Negative] Negative (06/29/23 12:35 PM) eGFR Non-AA [>=60] 72 (06/29/23 11:37 AM) eGFR AA [>=60] 72 (06/29/23 11:37 AM) UA Appear Clear (06/29/23 12:35 PM) Hemoglobin A1c [4.0-6.0 %] 6.6 % *HI* (06/29/23 11:37 AM) Chloride Level [98-107 mmol/L] 99 mmol/L (06/29/23 11:37 AM) U Oxy Scrn [Negative] Negative (06/29/23 12:35 PM) U PCP Scrn [Negative] Negative (06/29/23 12:35 PM) RDW-CV [11.5-14.5 %] 12.5 % (06/29/23 11:37 AM) U THC Scr [Negative] Negative (06/29/23 12:35 PM) U Methadone Scr [Negative] Negative (06/29/23 12:35 PM) Imm Gran Auto [0.0-0.9 %] 0.3 % (06/29/23 11:37 AM) UA Culture Ind?. Not Applicable (06/29/23 12:35 PM) U Buprenorph Scr [Negative] Negative (06/29/23 12:35 PM) U mAMP Scr [Negative] Negative (06/29/23 12:35 PM) U TCA Scr [Negative] Negative (06/29/23 12:35 PM) Creatinine Level [0.70-1.30 mg/dL] 1.13 mg/dL (06/29/23 11:37 AM) Employed in healthcare? Unknown *NA* (06/29/23 12:15 PM) Symptomatic as defined by CDC? Unknown *NA* (06/29/23 12:15 PM) Hospitalized due to COVID-19? Unknown *NA* (06/29/23 12:15 PM) In ICU? Unknown *NA* (06/29/23 12:15 PM) Group care resident? Unknown *NA* (06/29/23 12:15 PM) status? Unknown *NA* (06/29/23 12:15 PM) SARS-CoV-2(Covid19)PCR([facility] COVFLURSV) [Negative] Negative (06/29/23 12:15 PM) Flu A ([facility]pert COVFLURSV) [Negative] Nega tive (06/29/23 12:15 PM) RSV ([facility] COVFLURSV) [Negative] Negati ve (06/29/23 12:15 PM) Flu B ([facility]pert COVFLURSV) [Negative] Nega tive (06/29/23 12:15 PM) Eos, Auto [1.0-6.0 %] 1.7 % (06/29/23 11:37 AM) 1Interpretive Data: These are unconfirmed screening results, to be used only for medical (i.e. treatment) purposes. These screening results must not be used for non-medical purposes (e.g. employment or legal testing). New method started 01/13/11 Test Name Reference Range (Cut-off) THC Neg (50 ng/mL) PCP Neg (25 ng/mL) CAROLE Neg (150 ng/mL) MET Neg (500 ng/mL OPI Neg (100 ng/mL) AMP Neg (500 ng/mL BZO Neg (150 ng/mL) TCA Neg (300 ng/mL) MTD Neg (200 ng/mL) BAR Neg (200 ng/mL) OXY Neg (100 ng/mL) PPX Neg (300 ng/mL) BUP Neg (10 ng/mL) Vital Signs Most recent to oldest [Reference Range]: 1 2 3 Temperature Temporal Artery [36-38 Deg C] 35.6 Deg C *LOW* (06/29/23 11:27 AM) Peripheral Pulse Rate [60-100 bpm] 66 bpm (06/29/23 1:30 PM) 66 bpm (06/29/23 1:15 PM) 66 bpm (06/29/23 1:00 PM) Heart Rate Monitored [60-100 bpm] 67 bpm (06/29/23 1:30 PM) 63 bpm (06/29/23 1:15 PM) 67 bpm (06/29/23 1:00 PM) Respiratory Rate [12-24 br/min] 16 br/min (06/29/23 1:30 PM) 11 br/min *LOW* (06/29/23 1:15 PM) 14 br/min (06/29/23 1:00 PM) Blood Pressure [90-140/60-90 mmHg] 112/72mmHg (06/29/23 1:30 PM) 133/80mmHg (06/29/23 1:15 PM) 133/80mmHg (06/29/23 1:00 PM) Mean Arterial Pressure, Cuff [70-110 mmHg] 85 mmHg (06/29/23 1:30 PM) 98 mmHg (06/29/23 1:15 PM) 98 mmHg (06/29/23 1:00 PM) Weight 97.9 kg (06/29/23 12:42 PM) 98 kg (06/29/23 11:27 AM) Weight Measured (lbs) 215.832 lb (06/29/23 12:42 PM) Weight Dosing 98.000 kg (06/29/23 11:27 AM) Height 178 cm (06/29/23 11:27 AM) Body Mass Index 30.93 kg/m2 (06/29/23 11:27 AM) Social History Social History Type Response Tobacco Former tobacco user Tobacco Use:. Sex Male Implantable Device List Procedure Provider Procedure Date Device Type Site Gamma Nail Long Santiago Cornell MD 04/22/22 Non Biolo gical Hip R Device Identifier Serial Number Lot or Batch Number Manufacturing Date Expiration Date Distinct Identification Code MRI Safety Implantable Status Assigning Authority Unknown Unknown [id number] Unknown 10/11/30 Unknown Unknown Active Unknown Unknown Unknown [id number] Unknown 07/26/31 Unknown Unknown Active Unknown Unknown Unknown [id number] Unknown 01/05/25 Unknown Unknown Active Unk nown Unknown Unknown [id number] Unknown 07/08/24 Unknown Unknown Active Un known Unknown Unknown [id number] Unknown 01/05/23 Unknown Unknown Active Unk nown Physician Emergency department Note * Fazal Monahan MD: PERFORM Event Display: ED Note Physician Authored Date: [id number] ELIZABETH VAZQUEZ :1955 Age:67 years Sex:Male Visit Date:06/29/2023 Primary Care Physician: Elizabeth Horn MD Basic Information Time Seen: Fazal Monahan MD / 06/29/2023 11:28 Chief Complaint Syncopal episodes today He has had two this week with falls. Today he thought it lasted 10-15 min. After he woke up he ate canned fruit. [place] better but was lightheaded still History Of Present Illness: ??short episode of unresponsiveness with a pulse of 73.Presenting concern is??syncope.?? Patient reports sitting on the??toilet with abdominal cramps.?? He believes he passed out for about 15 minutes.?? EMS was called. ??They said??experienced a Review of Systems: Review of systems??is positive for??chest heaviness, episodic difficulty with his urination. ??Otherwise negative. Physical Exam Vitals & Measurements T:??35.6?C ??(Temporal Artery)?? HR:??66??(Peripheral)?? HR:??67??(Monitored)?? RR:??16?? BP:??112/72?? SpO2:??98%?? HT:??178??cm?? WT:??97.9??kg?? BMI:??30.93?? Pain Score:??6?? O2 Therapy:??Room air?? Orthostatic Vitals: Pulse Supine: 38 bpm (06/29/23 13:51:00) Pulse Sittin bpm (06/29/23 13:51:00) Pulse Standin bpm (06/29/23 13:51:00) Systolic Blood Pressure Supine: 110 mmHg (06/29/23 13:51:00) Diastolic Blood Pressure Supine: 73 mmHg (06/29/23 13:51:00) Systolic Blood Pressure Sittin mmHg (06/29/23 13:51:00) Diastolic Blood Pressure Sittin mmHg (06/29/23 13:51:00) Systolic Blood Pressure Standin mmHg (06/29/23 13:51:00) Diastolic Blood Pressure Standin mmHg (06/29/23 13:51:00) Patient easily falls asleep.?? History??is vague.?? Respirations are normal.?? Heart auscultation is normal. ??Abdominal palpation is normal. ??Extremity exam is normal.?? She is Medical Decision Making: Problem complexity is moderate, acute not fully diagnosed. ??Data complexity is??moderate. ??Risk of management are moderate. ??MDM coding 35817. Procedure No Qualifying Data Assessment/Plan 1.??Orthostatic hypotension??I95.1 Ordered: Discharge Patient, 06/29/23 14:16:00 EST, Home Independently, Constant Indicator ?? 2.??Bladder outlet obstruction??N32.0 Ordered: Discharge Patient, 06/29/23 14:16:00 EST, Home Independently, Constant Indicator ?? Orders: CV EKG ED, 06/29/23 13:03:00 EST, Routine, Reason: Chest Pain, Stop date and time 06/29/23 13:03:00EST, ORD_SET_REQ_DT_RANGE, Abdirizak's Internal Person Id CV EKG ED, 06/29/23 12:50:00 EST, Routine, Reason: Chest Pain, Stop date and time 06/29/23 12:50:00EST, ORD_SET_REQ_DT_RANGE, Abdirizak's Internal Person Id CV EKG ED, 06/29/23 11:33:00 EST, Routine, Reason: Syncope or Pre-syncope, Stop date and time 06/29/23 11:33:00 EST, ORD_SET_REQ_DT_RANGE, Abdirizak's Internal Person Id Medication Reconciliation Unchanged acetaminophen (acetaminophen 500 mg oral tablet)2 tab Oral (given by mouth) every 6 hours as neededother (see comment). as needed. ?? albuterol (ProAir HFA 90 mcg/inh inhalation aerosol)2 Puffs Inhale (breathe in) every 4 hours as needed as needed for wheezing. ?? aspirin (aspirin 81 mg oral delayed release tablet)1 tab Oral (given by mouth) every day. ?? cholecalciferol (Vitamin D3 2000 intl units oral capsule)1 Capsules Oral (given by mouth) every day. For 90 days. ?? diclofenac topical (diclofenac 1% topical gel)2 Gram Topical (on the skin) every 8 hours as needed ankle tendonitis. ?? docusate (docusate sodium 100 mg oral capsule)1 Capsules Oral (given by mouth) 2 times a day as needed constipation. ?? dulaglutide (Trulicity Pen 1.5 mg/0.5 mL subcutaneous solution)1.5 Milligrams Subcutaneous (under the skin) every week. ?? gabapentin (gabapentin 800 mg oral tablet)1 tab Oral (given by mouth) 3 times a day. ?? glipiZIDE (glipiZIDE 10 mg oral tablet, extended release)1 tab Oral (given by mouth) 2 times a day. ?? insulin lispro (insulin lispro 100 units/mL injectable solution)Moderate Scale Subcutaneous (under the skin) 4 times a day (before meals and at bedtime). ?? lisinopril (lisinopril 5 mg oral tablet)2 tab Oral (given by mouth) every day. ?? metFORMIN (metFORMIN 1000 mg oral tablet, extended release)1 tab Oral (given by mouth) 2 times a day. ?? oxyCODONE (oxyCODONE 10 mg oral tablet)1 tab Oral (given by mouth) every 4 hours as needed pain, severe for 7 Days. Refills: 0. ?? pantoprazole (pantoprazole 40 mg oral delayed release tablet)1 tab Oral (given by mouth) 2 times a day. ?? polyethylene glycol 895118 Gram Oral (given by mouth) every day as needed constipation for 7 Days. ?? senna (senna 8.6 mg oral tablet)2 tab Oral (given by mouth) every day as needed constipation. ?? tamsulosin (tamsulosin 0.4 mg oral capsule)1 Capsules Oral (given by mouth) every night at bedtime. ?? venlafaxine (venlafaxine 150 mg oral capsule, extended release)1 Capsules Oral (given by mouth) every day. along with a 75mg capsule for a total dose of 225mg daily. ?? venlafaxine (venlafaxine 75 mg oral capsule, extended release)1 Capsules Oral (given by mouth) every day. along with a 150 mg capsule for a total dose of 225mg daily. Problem List/Past Medical History Ongoing Acute blood [...] (10/08/2018)???Knee replacement - bilateral (02/22/2018)???Gastric bypass (10/08/2009) Medication Administration Given 0.9% NaCl bolus, 2000 mL, Hydration Bolus Allergies ADHESIVE TAPE atorvastatin Social History Alcohol Never Electronic Cigarette/Vaping Electronic Cigarette Use: Never. Substance Use Current, Marijuana Tobacco Former tobacco user Tobacco Use:. Family History Alzheimer's disease: Mother. Cancer of colon: Father. Lab Results CBC and Differential?? LATEST RESULTS?? HISTORICAL RESULTS?? WBC?? 06/29/23 11:37?? 6.5?? 04/02/23?? 5.4?? RBC?? 06/29/23 11:37?? 4.9?? 04/02/23?? 5.0?? Hgb?? 06/29/23 11:37?? 14.6?? 04/02/23?? 14.8?? Hct?? 06/29/23 11:37?? 42.2?? 04/02/23?? 43.2?? MCV?? 06/29/23 11:37?? 85.8?? 04/02/23?? 86.9?? MCH?? 06/29/23 11:37?? 29.7?? 04/02/23?? 29.8?? MCHC?? 06/29/23 11:37?? 34.6?? 04/02/23?? 34.3?? RDW-CV?? 06/29/23 11:37?? 12.5?? 04/02/23?? 12.7?? Platelets?? 06/29/23 11:37?? 184?? 04/02/23?? 188?? Neutro Auto?? 06/29/23 11:37?? 65.0?? 04/02/23?? 57.3?? Lymph Auto?? 06/29/23 11:37?? 23.9?? 04/02/23?? 29.9?? Franklin Auto?? 06/29/23 11:37?? 8.9?? 04/02/23?? 7.9?? Eos, Auto?? 06/29/23 11:37?? 1.7?? 04/02/23?? 4.3?? Basophil Auto?? 06/29/23 11:37?? 0.2?? 04/02/23?? 0.4?? Imm Gran Auto?? 06/29/23 11:37?? 0.3?? 04/02/23?? 0.2?? Neutro Absolute?? 06/29/23 11:37?? 4.2?? 04/02/23?? 3.1? Routine Chemistry?? LATEST RESULTS?? HISTORICAL RESULTS?? Sodium Level?? 06/29/23 11:37?? 134 ??Low?? 04/02/23?? 140?? Potassium Level?? 06/29/23 11:37?? 4.5?? 04/02/23?? 4.5?? Chloride Level?? 06/29/23 11:37?? 99?? 04/02/23?? 103?? CO2?? 06/29/23 11:37?? 24?? 04/02/23?? 27?? Alk Phos?? 06/29/23 11:37?? 82?? 04/02/23?? 84?? AST?? 06/29/23 11:37?? 18?? 04/02/23?? 16?? ALT?? 06/29/23 11:37?? 28?? 04/02/23?? 23?? BUN?? 06/29/23 11:37?? 20 ??High?? 04/02/23?? 17?? Glucose Level?? 06/29/23 11:37?? 119 ??High?? 04/02/23?? 136 ??High?? Creatinine Level?? 06/29/23 11:37?? 1.13?? 04/02/23?? 1.20?? eGFR AA?? 06/29/23 11:37?? 72?? 04/02/23?? 67?? eGFR Non-AA?? 06/29/23 11:37?? 72?? 04/02/23?? 67?? Calcium Level?? 06/29/23 11:37?? 8.9?? 04/02/23?? 9.0?? Protein Total?? 06/29/23 11:37?? 7.2?? 04/02/23?? 7.6?? Albumin Level?? 06/29/23 11:37?? 3.8?? 04/02/23?? 4.2?? Bilirubin Total?? 06/29/23 11:37?? 0.6?? 04/02/23?? 0.4?? Hemoglobin A1c?? 12/21/23 11:37?? 6.6 ??High?? 05/04/22?? 5.7?? Magnesium Level?? 06/29/23 11:37?? 1.8? Glucose POC?? 06/29/23 11:52?? 104?? 04/29/22?? 276 ??High? Cardiac Isoenzymes?? LATEST RESULTS?? HISTORICAL RESULTS?? Troponin-I?? 06/29/23 11:37?? 5.3?? 04/02/23?? 5.5? Serum Toxicology?? LATEST RESULTS?? Ethanol Level?? 06/29/23 11:37?? <5? Urine Toxicology?? LATEST RESULTS?? U Amph Scrn?? 06/29/23 12:35?? Negative?? U Bonnie Scrn?? 06/29/23 12:35?? Negative?? U Benzodia Scrn?? 06/29/23 12:35?? Negative?? U Buprenorph Scr?? 06/29/23 12:35?? Negative?? U Cocaine Scrn?? 06/29/23 12:35?? Negative?? U TCA Scr?? 06/29/23 12:35?? Negative?? U THC Scr?? 06/29/23 12:35?? Negative?? U mAMP Scr?? 06/29/23 12:35?? Negative?? U Methadone Scr?? 06/29/23 12:35?? Negative?? U Opiate Scrn?? 06/29/23 12:35?? Negative?? U Oxy Scrn?? 06/29/23 12:35?? Negative?? U PCP Scrn?? 06/29/23 12:35?? Negative? UA Macroscopic?? LATEST RESULTS?? HISTORICAL RESULTS?? UA Color?? 06/29/23 12:35?? Yellow?? 04/24/22?? Yellow?? UA Appear?? 06/29/23 12:35?? Clear?? 04/24/22?? Clear?? UA Glucose?? 06/29/23 12:35?? Negative?? 04/24/22?? 2+ Abnormal?? UA Bili?? 06/29/23 12:35?? Negative?? 04/24/22?? Negative?? UA Ketones?? 06/29/23 12:35?? Negative?? 04/24/22?? Negative?? UA Spec Grav?? 06/29/23 12:35?? 1.010?? 04/24/22?? 1.015?? UA Blood?? 06/29/23 12:35?? Negative?? 04/24/22?? Negative?? UA pH?? 06/29/23 12:35?? 5.5?? 04/24/22?? 6.5?? UA Protein?? 06/29/23 12:35?? Negative?? 04/24/22?? Negative?? UA Urobilinogen?? 06/29/23 12:35?? Normal?? 04/24/22?? Normal?? UA Nitrite?? 06/29/23 12:35?? Negative?? 04/24/22?? Negative?? UA Leuk Est?? 06/29/23 12:35?? Negative?? 04/24/22?? Negative?? UA Culture Ind?.?? 06/29/23 12:35?? Not Applicable? UA Microscopic?? LATEST RESULTS?? UA WBC?? 06/29/23 12:35?? 0-3?? UA RBC?? 06/29/23 12:35?? 0-2?? UA Squam Epithelial?? 06/29/23 12:35?? None Seen?? UA Mucous?? 06/29/23 12:35?? None Seen?? UA Bacteria?? 06/29/23 12:35?? None Seen? Infectious Disease?? LATEST RESULTS?? Employed in healthcare??? 06/29/23 12:15?? Unknown?? Symptomatic as defined by CDC??? 06/29/23 12:15?? Unknown?? Hospitalized due to COVID-19??? 06/29/23 12:15?? Unknown?? In ICU??? 06/29/23 12:15?? Unknown?? Group care resident??? 06/29/23 12:15?? Unknown?? status??? 06/29/23 12:15?? Unknown?? SARS-CoV-2(Covid19)PCR([facility] COVFLURSV)?? 06/29/23 12:15?? Negative?? Flu A ([facility] COVFLURSV)?? 06/29/23 12:15?? Negative?? Flu B ([facility] COVFLURSV)?? 06/29/23 12:15?? Negative?? RSV ([facility] COVFLURSV)?? 06/29/23 12:15?? Negative? Electronically Signed on 06/29/23 02:17 PM Fazal Monahan MD Emergency department Discharge instructions * Fazal Monahan MD: PERFORM Event Display: ED Discharge Information Authored Date: [id number] ELIZABETH VAZQUEZ :1955 Age:67 years Sex:Male Visit Date:06/29/2023 Primary Care Physician: Elizabeth Horn MD Discharge Instructions We would like to thank you for allowing us to assist you with your healthcare needs. The following includes patient education materials and information regarding your injury/illness. Diagnosis from Today's Visit Orthostatic hypotension Bladder outlet obstruction Discharge Vitals Temperature??(Temporal Artery) 96.1 ??F (35.6 ??C) Heart Rate??(Monitored) 67 Heart Rate??(Peripheral) 66 Respiratory Rate?? 16 Blood Pressure?? 112/72?? Blood Pressure?? 131/73(Sitting)?? Blood Pressure?? 116/62(Standing)?? Blood Pressure?? 110/73(Supine)?? Height?? 70.08 in (178 cm) Weight?? 215.87 lb (97.9 kg) BMI?? 30.93 Allergies ADHESIVE TAPE atorvastatin What to Do Next Instructions from Your Care Team Your blood pressure was far too low when he was stood up.?? This explains your??apparent??unresponsiveness for a period of time on the toilet.?? It is most likely due to the medication tamsulosin.?? If you are taking 2 of these at bedtime??do not do that any longer. ??If you are taking 1??stop them altogether.?? You are not completely emptying your bladder. ?? Fazal Monahan MD Upcoming Scheduled Appointments Monday 9:30 AM EST ?? With: Kathy Silverman ROTARY VENEER MACHINE OPERATOR Where: [facility] [address] [place] [address] Status: Confirmed You were treated today on an emergency basis; it may be lassiter to contact your primary care provider to notify them of your visit today. You may have been referred to your regular doctor or a specialist, please follow up as instructed. If your condition worsens or you can't get in to see the doctor, contact the Emergency Department. Medications What How Much When Instructions Next Dose Unchanged acetaminophen (acetaminophen 500 mg oral tablet) [...] times a day (before meals and at bedtime) Unchanged lisinopril (lisinopril 5 mg oral tablet) [...] a total dose of 225mg daily ?? Tests Performed Medications and Immunizations Administered Given 0.9% NaCl bolus, 2000 mL, Hydration Bolus Lab Test Name Test Result Date/Time WBC 6.5 x10^3/mcL 06/29/2023 11:37 EST RBC 4.9 x10^6/mcL 06/29/2023 11:37 EST Hgb 14.6 g/dL 06/29/2023 11:37 EST Hct 42.2 % 06/29/2023 11:37 EST MCV 85.8 fL 06/29/2023 11:37 EST MCH 29.7 pg 06/29/2023 11:37 EST MCHC 34.6 g/dL 06/29/2023 11:37 EST RDW-CV 12.5 % 06/29/2023 11:37 EST Platelets 184 x10^3/mcL 06/29/2023 11:37 EST Neutro Auto 65.0 % 06/29/2023 11:37 EST Lymph Auto 23.9 % 06/29/2023 11:37 EST Franklin Auto 8.9 % 06/29/2023 11:37 EST Eos, Auto 1.7 % 06/29/2023 11:37 EST Basophil Auto 0.2 % 06/29/2023 11:37 EST Imm Gran Auto 0.3 % 06/29/2023 11:37 EST Neutro Absolute 4.2 x10^3/mcL 06/29/2023 11:37 EST Sodium Level 134 mmol/L 06/29/2023 11:37 EST Potassium Level 4.5 mmol/L 06/29/2023 11:37 EST Chloride Level 99 mmol/L 06/29/2023 11:37 EST CO2 24 mmol/L 06/29/2023 11:37 EST Alk Phos 82 unit/L 06/29/2023 11:37 EST AST 18 unit/L 06/29/2023 11:37 EST ALT 28 unit/L 06/29/2023 11:37 EST BUN 20 mg/dL 06/29/2023 11:37 EST Glucose Level 119 mg/dL 06/29/2023 11:37 EST Creatinine Level 1.13 mg/dL 06/29/2023 11:37 EST eGFR AA 72 06/29/2023 11:37 EST eGFR Non-AA 72 06/29/2023 11:37 EST Calcium Level 8.9 mg/dL 06/29/2023 11:37 EST Protein Total 7.2 g/dL 06/29/2023 11:37 EST Albumin Level 3.8 g/dL 06/29/2023 11:37 EST Bilirubin Total 0.6 mg/dL 06/29/2023 11:37 EST Hemoglobin A1c 6.6 % 06/29/2023 11:37 EST Magnesium Level 1.8 mg/dL 06/29/2023 11:37 EST Glucose POC 104 mg/dL 06/29/2023 11:52 EST Troponin-I 5.3 pg/mL 06/29/2023 11:37 EST Ethanol Level <5 mg/dL 06/29/2023 11:37 EST U Amph Scrn NEGATIVE 06/29/2023 12:35 EST U Bonnie Scrn NEGATIVE 06/29/2023 12:35 EST U Benzodia Scrn NEGATIVE 06/29/2023 12:35 EST U Buprenorph Scr NEGATIVE 06/29/2023 12:35 EST U Cocaine Scrn NEGATIVE 06/29/2023 12:35 EST U TCA Scr NEGATIVE 06/29/2023 12:35 EST U THC Scr NEGATIVE 06/29/2023 12:35 EST U mAMP Scr NEGATIVE 06/29/2023 12:35 EST U Methadone Scr NEGATIVE 06/29/2023 12:35 EST U Opiate Scrn NEGATIVE 06/29/2023 12:35 EST U Oxy Scrn NEGATIVE 06/29/2023 12:35 EST U PCP Scrn NEGATIVE 06/29/2023 12:35 EST UA Color YELLOW. 06/29/2023 12:35 EST UA Appear CLEAR. 06/29/2023 12:35 EST UA Glucose NEGATIVE 06/29/2023 12:35 EST UA Bili NEGATIVE 06/29/2023 12:35 EST UA Ketones NEGATIVE 06/29/2023 12:35 EST UA Spec Grav 1.010 06/29/2023 12:35 EST UA Blood NEGATIVE 06/29/2023 12:35 EST UA pH 5.5 06/29/2023 12:35 EST UA Protein NEGATIVE 06/29/2023 12:35 EST UA Urobilinogen 0.2 Uro 06/29/2023 12:35 EST UA Nitrite NEGATIVE 06/29/2023 12:35 EST UA Leuk Est NEGATIVE 06/29/2023 12:35 EST UA Culture Ind?. Not Applicable 06/29/2023 12:35 EST UA WBC 0-3 06/29/2023 12:35 EST UA RBC 0-2 06/29/2023 12:35 EST UA Squam Epithelial None Seen 06/29/2023 12:35 EST UA Mucous None Seen 06/29/2023 12:35 EST UA Bacteria None Seen 06/29/2023 12:35 EST Employed in healthcare? Unknown 06/29/2023 12:15 EST Symptomatic as defined by CDC? Unknown 06/29/2023 12:15 EST Hospitalized due to COVID-19? Unknown 06/29/2023 12:15 EST In ICU? Unknown 06/29/2023 12:15 EST Group care resident? Unknown 06/29/2023 12:15 EST status? Unknown 06/29/2023 12:15 EST SARS-CoV-2(Covid19)PCR([facility] COVFLURSV) NEGATIVE 06/29/2023 12:15 EST Flu A ([facility] COVFLURSV) NEGATIVE 06/29/2023 12:15 EST Flu B ([facility] COVFLURSV) Neg-GeneXPert 06/29/2023 12:15 EST RSV ([facility] COVFLURSV) Neg-GeneXPert 06/29/2023 12:15 EST Patient/Pediatric Np Signature Patient Name:ELIZABETH VAZQUEZ I have received this information and my questions have been answered. Patient/Pediatric Np Name: Patient/Pediatric Np Signature: Relationship to Patient: Witness Name/Signature: Date: Electronically Signed on: 06/29/2023 14:17 ESTSigned by:[facility] Discharge summary * Jerica Contreras: PERFORM Event Display: Discharge Note Authored Date: * Jerica Contreras: PERFORM Event Display: Discharge Note Authored Date: Diagnosis: 1. Orthostatic hypotension Comment: Diagnosis: 2. Bladder outlet obstruction Comment: Diagnosis: Syncope/Near syncope Comment: Electronically Signed on 06/29/23 02:30 PM Jerica Contreras Patient Care team information Care Team Personnel Name: Marisa Carbajal NP Position: Physician Member Role: Nurse Practitioner Name: Elizabeth Horn MD Position: No Access Member Role: Informed Provider Address: Address: [address], [place] [address] Name: Mag Barillas RN Position: Nurse Member Role: ED Nurse Name: Fazal Monahan MD Position: Physician Member Role: ED Physician Address: Address: [address] [place] [id number] Care Team Related Persons Name: JENIFFER VAZQUEZ Name: TEETEE VAZQUEZ Address: [address] [id number]
--- OUTSIDE RECORDS SUMMARY | 2023-08-17 15:48 | XMS_ITS | CCD ---
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 BMI (Body Mass Index) 35.87 kg/m^2 02/22/2022 16: 44 Initial VS Weight Measured 250 lbs 02/22/2022 16:44 Ini tial VS Height 70 in 02/22/2022 16:44 Initial VS BSA (Body Surface Area) 2.37 m^2 02/22/2022 1 6:44 Initial VS BP Systolic 143 mmHg 02/22/2022 16:44 Initial VS BP Diastolic 82 mmHg 02/22/2022 16:44 Initia l VS Respiratory Rate 16 bpm 02/22/2022 16:44 In itial VS Heart Rate 68 bpm 02/22/2022 16:44 Initial VS O2 % BldC Oximetry 96 % 02/22/2022 16:44 Initial VS Body Temperature 36.4 degrees 02/22/2022 16:44 In itial VS Allergies Allergy Code Allergy Type Reaction Status No Known Drug Allergies 0 No known drug allergies Active ADHESIVE 0 Allergy to substance RASH Acti ve Procedures Unknown or Not Available. History of Immunizations Unknown or Not Available. Problems Problem Code Start Date Resolved Date Status Type 2 diabetes 24862973 Active Anxiety 32121066 Active Results Unknown or Not Available. Active Medications Medications Administered During Visit Medication Dose Units Frequency Route Date/Time of Last Dose IBUPROFEN TABLET: 600MG 600 MG X1 PO 02/22/2022 18:56 Encounters Encounter Diagnosis Diagnosis Code Start Date Pain in right elbow [id number] 02/22/2022 Social History Unknown or Not Available. Patient Decision Aids Unknown or Not Available. Discharge Instructions You were admitted to [facility] on 02/22/2022 16:28 with a principal diagnosis of Pain in right elbow You were discharged from [facility] on 02/22/2022 18:58 Should you have any questions prior to discharge, please contact a member of your healthcare team. If you have left the hospital and have any questions, please contact your primary care physician. Chief Complaint and Reason For Visit Chief Complaint Date of Onset RIGHT ARM AND ELBOW Function Status Unknown or Not Available. Plan of Care Unknown or Not Available. Referral/Transition of Care Unknown or Not Available.
--- OUTSIDE RECORDS SUMMARY | 2023-08-17 15:48 | XMS_ITS | Continuity of Care Document ---
Author Name Unknown Organization [facility] Address [address] [place] [address] Care Team Providers Care Provisioning Specialist Name Role Phone Elizabeth Horn Primary Care Physician Encounter [facility] Date(s): 05/04/22 - 05/04/[address] [phone] Discharge Disposition: Home or Self Care Attending Physician: Mamie Zavala MD Admitting Physician: Mamie Zavala MD Referring Physician: Mamie Zavala MD Allergies, Adverse Reactions, Alerts Substance Reaction [...] severe, # 30 tab, 0 Refill(s), Pharmacy: [id number], [id number], cm, 04/22/22 6:28:00 EDT, [...] hip fx Results Laboratory List Name Date Basic Metabolic Panel 05/04/22 CBC w/o Diff 05/04/22 Hemoglobin A1c 05/04/22 Most recent to oldest [Reference Range]: 1 WBC [5.0-10.0 x10^3/mcL] 6.8 x10^3/mcL (05/04/22: AM) RBC [4.6-6.0 x10^6/mcL] 3.4 x10^6/mcL *LOW* (05/04/22 AM) BUN [7-18 mg/dL] 25 mg/dL *HI* (05/04/22: AM) Glucose Level [74-106 mg/dL] 120 mg/dL *HI* (05/04/22: AM) Potassium Level [3.5-5.1 mmol/L] 4.5 mmo l/L (05/04/22 AM) MCV [80.0-103.0 fL] 91.9 fL (05/04/22: AM) MCHC [31.0-35.0 g/dL] 31.5 g/dL (05/04/22: AM) Sodium Level [136-145 mmol/L] 135 mmol/L *LOW* (05/04/22 AM) Hct [41.0-51.0 %] 31.7 % *LOW* (05/04/22 AM) Calcium Level [8.5-10.1 mg/dL] 9.0 mg/dL (05/04/22: AM) MCH [26.0-32.0 pg] 29.0 pg (05/04/22: AM) Hgb [14.0-18.0 g/dL] 10.0 g/dL *LOW* (05/04/22 AM) Platelets [130-450 x10^3/mcL] 369 x10^3/ mcL (05/04/22: AM) CO2 [21-32 mmol/L] 28 mmol/L (05/04/22: AM) eGFR Non-AA [>=60] 77 (05/04/22: AM) eGFR AA [>=60] 77 (05/04/22:22 AM) Hemoglobin A1c [4.0-6.0 %] 5.7 % (05/04/22 7:22 AM) Chloride Level [98-107 mmol/L] 101 mmol/ L (05/04/22 7:22 AM) RDW-CV [11.5-17.0 %] 14.6 % (05/04/22 7:22 AM) Creatinine Level [0.70-1.30 mg/dL] 1.07 mg/dL (05/04/22 7:22 AM) Social History Social History Type Response Tobacco Current everyday tob acco user Tobacco Use:. Sex Male Implantable Device List Procedure Provider Procedure Date Device Type Site Gamma Nail Long Santiago Cornell MD 04/22/22 Non Biolo gical Hip R Device Identifier Serial Number Lot or Batch Number Manufacturing Date Expiration Date Distinct Identification Code MRI Safety Implantable Status Assigning Authority Unknown Unknown [id number] Unknown 10/11/30 Unknown Unknown Active Unknown Unknown Unknown [id number] Unknown 07/26/31 Unknown Unknown Active Unknown Unknown Unknown [id number] Unknown 01/05/25 Unknown Unknown Active Unk nown Unknown Unknown [id number] Unknown 07/08/24 Unknown Unknown Active Un known Unknown Unknown [id number] Unknown 01/05/23 Unknown Unknown Active Unk nown Patient Care team information Personnel Name: Elizabeth Horn Address: Address: [address] [place], [place] [address]
--- OUTSIDE RECORDS SUMMARY | 2023-08-17 15:48 | XMS_ITS | Continuity of Care Document ---
Author Name Unknown Organization [facility] Address [address] [place] [address] Care Team Providers Care Engrosser Name Role Phone Elizabeth Horn Primary Care Physician Encounter [facility] Date(s): 04/02/23 - 04/02/[address] [address] Encounter Diagnosis Chest wall pain(Discharge Diagnosis) - 04/02/23 Discharge Disposition: Home or Self Care Attending Physician: Juancho Vázquez MD Admitting Physician: Juancho Vázquez MD Allergies, Adverse Reactions, Alerts Substance Reaction Severity Status ADHESIVE TAPE Unknown Active atorvastatin Unknown Active Assessment and Plan Future Appointments Functional Status 04/02/23 Recent Travel History No recent travel Other [...] severe, # 30 tab, 0 Refill(s), Pharmacy: [id number], [id number], cm, 04/22/22 6:28:00 EDT, [...] hip fx Results Laboratory List Name Date Troponin-I 04/02/23 Automated Diff 04/02/23 CBC w/ Diff 04/02/23 Comprehensive Metabolic Panel (CMP) 04/02 Troponin-I 04/02/23 Most recent to oldest [Reference Range]: 1 2 WBC [5.0-10.0 x10^3/mcL] 5.4 x10^3/mcL (04/02/23 12:40 AM) RBC [4.6-6.0 x10^6/mcL] 5.0 x10^6/mcL (04/02/23 12:40 AM) Neutro Auto [40.0-75.0 %] 57.3 % (04/02/23 12:40 AM) Lymph Auto [20.0-50.0 %] 29.9 % (04/02/23 12:40 AM) Lake Auto [2.0-15.0 %] 7.9 % (04/02/23 12:40 AM) Basophil Auto [0.0-1.0 %] 0.4 % (04/02/23 12:40 AM) BUN [7-18 mg/dL] 17 mg/dL (04/02/23 12:40 AM) Glucose Level [74-106 mg/dL] 136 mg/dL *HI* (04/02/23 12:40 AM) Potassium Level [3.5-5.1 mmol/L] 4.5 mmo l/L (04/02/23 12:40 AM) MCV [80.0-96.0 fL] 86.9 fL (04/02/23 12:40 AM) AST [15-37 unit/L] 16 unit/L (04/02/23 12:40 AM) ALT [16-63 unit/L] 23 unit/L (04/02/23 12:40 AM) MCHC [31.0-35.0 g/dL] 34.3 g/dL (04/02/23 12:40 AM) Troponin-I [0.0-76.2 pg/mL] 5.5 pg/mL (04/02/23 3:46 AM) <5.0 pg/mL (04/02/23 12:40 AM) Sodium Level [136-145 mmol/L] 140 mmol/L (04/02/23 12:40 AM) Hct [41.0-51.0 %] 43.2 % (04/02/23 12:40 AM) Calcium Level [8.5-10.1 mg/dL] 9.0 mg/dL (04/02/23 12:40 AM) Albumin Level [3.4-5.0 g/dL] 4.2 g/dL (04/02/23 12:40 AM) Protein Total [6.4-8.2 g/dL] 7.6 g/dL (04/02/23 12:40 AM) MCH [26.0-32.0 pg] 29.8 pg (04/02/23 12:40 AM) Neutro Absolute 3.1 x10^3/mcL *NA* (04/02/23 12:40 AM) Bilirubin Total [0.2-1.0 mg/dL] 0.4 mg/d L (04/02/23 12:40 AM) Hgb [14.0-18.0 g/dL] 14.8 g/dL (04/02/23 12:40 AM) Alk Phos [46-146 unit/L] 84 unit/L (04/02/23 12:40 AM) Platelets [130-450 x10^3/mcL] 188 x10^3/ mcL (04/02/23 12:40 AM) CO2 [21-32 mmol/L] 27 mmol/L (04/02/23 12:40 AM) eGFR Non-AA [>=60] 67 (04/02/23 12:40 AM) eGFR AA [>=60] 67 (04/02/23 12:40 AM) Chloride Level [98-107 mmol/L] 103 mmol/ L (04/02/23 12:40 AM) RDW-CV [11.5-14.5 %] 12.7 % (04/02/23 12:40 AM) Imm Gran Auto [0.0-0.9 %] 0.2 % (04/02/23 12:40 AM) Slide Review Not Indicated (04/02/23 12:40 AM) Creatinine Level [0.70-1.30 mg/dL] 1.20 mg/dL (04/02/23 12:40 AM) Eos, Auto [1.0-6.0 %] 4.3 % (04/02/23 12:40 AM) Vital Signs Most recent to oldest [Reference Range]: 1 2 3 Temperature Temporal Artery [36-38 Deg C] 36.3 Deg C (04/02/23 12:45 AM) Peripheral Pulse Rate [60-100 bpm] 69 bpm (04/02/23 3:30 AM) 67 bpm (04/02/23 2:56 AM) 71 bpm (04/02/23 2:03 AM) Heart Rate Monitored [60-100 bpm] 70 bpm (04/02/23 5:47 AM) 62 bpm (04/02/23 4:30 AM) 76 bpm (04/02/23 4:00 AM) Respiratory Rate [12-24 br/min] 13 br/min (04/02/23 5:47 AM) 13 br/min (04/02/23 4:30 AM) 16 br/min (04/02/23 4:00 AM) Blood Pressure [90-140/60-90 mmHg] 112/62mmHg (04/02/23 4:30 AM) 126/72mmHg (04/02/23 4:00 AM) 125/75mmHg (04/02/23 3:30 AM) Weight 99.60 kg (04/02/23 12:45 AM) Weight Dosing 99.60 kg (04/02/23 12:51 AM) Height 178.000 cm (04/02/23 12:45 AM) Height/Length Dosing 178.000 cm (04/02/23 12:51 AM) Body Mass Index 31.000 kg/m2 (04/02/23 12:45 AM) Social History Social History Type Response Tobacco Current everyday tob acco user Tobacco Use:. Sex Male Implantable Device List Procedure Provider Procedure Date Device Type Site Gamma Nail Santiago Krishnan MD 04/22/22 Non Biolo gical Hip R Device Identifier Serial Number Lot or Batch Number Manufacturing Date Expiration Date Distinct Identification Code MRI Safety Implantable Status Assigning Authority Unknown Unknown [id number] Unknown 10/11/30 Unknown Unknown Active Unknown Unknown Unknown [id number] Unknown 07/26/31 Unknown Unknown Active Unknown Unknown Unknown [id number] Unknown 01/05/25 Unknown Unknown Active Unk [facility] Unknown Unknown [id number] Unknown 07/08/24 Unknown Unknown Active Un known Unknown Unknown [id number] Unknown 01/05/23 Unknown Unknown Active Unk [facility] Discharge Instructions Patient Education 04/02/2023 03:28:30 Chest Wall Pain, Nwei-ko-Yhew Chest Wall Pain Chest wall pain is pain in or around the bones and muscles of your chest. Chest wall pain may be caused by: ??? An injury. ??? Coughing a lot. ??? Using your chest and arm muscles too much. Sometimes, the cause may not be known. This pain may take a few weeks or longer to get better. Follow these instructions at home: Managing pain, stiffness, and swelling If told, put ice on the painful area: ??? Put ice in a plastic bag. ??? Place a towel between your skin and the bag. ??? Leave the ice on for 20 minutes, 2???3 times a day. Activity ??? Rest as told by your doctor. ??? Avoid doing things that cause pain. This includes lifting heavy items. ??? Ask your doctor what activities are safe for you. General instructions ??? Take zdid-lbs-swmhfbn and prescription medicines only as told by your doctor. ??? Do not use any products that contain nicotine or tobacco, such as cigarettes, e-cigarettes, andchewing tobacco. If you need help quitting, ask your doctor. ??? Keep all follow-up visits as told by your doctor. This is important. Contact a doctor if: ??? You have a fever. ??? Your chest pain gets worse. ??? You have new symptoms. Get help right away if: ??? You feel sick to your stomach (nauseous) or you throw up (vomit). ??? You feel sweaty or light-headed. ??? You have a cough with mucus from your lungs (sputum) or you cough up blood. ??? You are short of breath. These symptoms may be an emergency. Do not wait to see if the symptoms will go away. Get medical help right away. Call your local emergency services (911 in the [place] Do not drive yourself to the hospital. Summary ??? Chest wall pain is pain in or around the bones and muscles of your chest. ??? It may be treated with ice, rest, and medicines. Your condition may also get better if you avoid doing things that cause pain. ??? Contact a doctor if you have a fever, chest pain that gets worse, or new symptoms. ??? Get help right away if you feel light-headed or you get short of breath. These symptoms may be an emergency. This information is not intended to replace advice given to you by your health care provider. Make sure you discuss any questions you have with your health care provider. Document Revised: 09/28/2021 Document Reviewed: 09/10/2021 [employer] Patient Education ?? 2022 [employer]. Follow Up Care 04/02/2023 00:45:29 With:Elizabeth Horn MD Address: [facility] [address] [place] [address]- When:5 to 7 days Physician Emergency department Note * Juancho Vázquez MD: MODIFY, MODIFY, PERFORM, MODIFY Event Display: ED Note Physician Authored Date: [id number] ELIZABETH VAZQUEZ :1955 Age:67 years Sex:Male Visit Date:04/02/2023 Primary Care Physician: Elizabeth Horn MD Basic Information Time Seen: Juancho Vázquez MD / 04/02/2023 00:52 Chief Complaint syncopal episode yesterday, chest pain started at 2000 tonight radiating to left arm, nausea - zofran given by EMS. EMS gave 0.4 nitro and Asa 324mg. History Of Present Illness: Presents emergency department stating that he had a syncopal episode and today started having??leftupper molar chest pain??that started??8 PM tonight??associate with nausea??he was given Zofran by EMS and 0.4 mg of nitroglycerin with aspirin??with no improvement. ??States the pain is worse when hemoves his left??shoulder and states that he had rotator cuff surgery??a couple weeks ago.?? Denies any fever denies any chills denies any shortness of breath Review of Systems: Constitutional: No fevers, chills, sweats Eye: No recent visual problems ENT: No ear pain, nasal congestion, sore throat Respiratory: No shortness of breath, cough Cardiovascular: No Chest pain, palpitations, syncope Gastrointestinal: No nausea, vomiting, diarrhea Genitourinary: No hematuria Johnathan/Lymph: Negative for bruising tendency, swollen lymph glands Endocrine: Negative for excessive thirst, excessive hunger Musculoskeletal: No back pain, neck pain, joint pain, muscle pain, decreased range of motion Integumentary: No rash, pruritus, abrasions Neurologic: Alert & oriented X 4 Psychiatric: No anxiety, depression Physical Exam Vitals & Measurements T:??36.3?C ??(Temporal Artery)?? HR:??70??(Monitored)?? RR:??13?? BP:??112/62?? SpO2:??96%?? HT:??178.000??cm?? WT:??99.60??kg?? BMI:??31.000?? Pain Score:??4?? O2 Therapy:??Room air?? RestingSpO2:??95?? General: Alert and oriented, well nourished, no acute distress. Eye: PERRL, EOMI, normal conjunctiva. HENT: Normocephalic, clear tympanic membranes, normal hearing, moist oral mucosa, no scleral icterus, no sinus tenderness. Neck: Supple, non-tender, no carotid bruits, no JVD, no lymphadenopathy. Lungs: Clear to auscultation and percussion, non-labored respiration. Heart: Normal rate, regular rhythm, no murmur, gallop or edema.?? Tenderness to palpation??to the superior??aspect of chest wall??and in the scapula Breast: No lumps, no bumps, no scars, normal nipples. Abdomen: Soft, non-tender, non-distended, normal bowel sounds, no masses. Musculoskeletal: Normal range of motion and strength, no tenderness or swelling. Skin: Skin is warm, dry and appropriate for ethnicity, no rashes or lesions. Neurologic: Awake, alert and oriented X4, CN II-XII intact. Psychiatric: Cooperative, appropriate mood and affect. Medical Decision Making: MDM: Summary: Presents emergency department with left-sided chest pain which is reproducible. ??He had his EKG with is within normal limits??also a chest x-ray CT scan of the head for she described he had syncopalepisode??and labs which are unremarkable to include 2 troponins 4 hours apart ? Data Review Analysis All the data on this patient was reviewed by me including laboratory??and imaging studies??as well as bedside studies performed by me ?? Independent review of Studies Imaging CT scan of the head and a chest x-ray which are normal Lab: Patient had a CBC??comprehensive metabolic panel??and 2 troponins 4 hours apart which were all negative ?? Risk Stratification: Patient with??reducible left-sided chest pain??which had labs??and EKG??all negative which reduces his??risk of acute coronary syndrome he will be discharged home on analgesics??states that he feels much better ? Differential Diagnosis: 1.?? Chest wall pain 2.?? Acute coronary syndrome 3.?? Pulmonary embolus 4.?? Cuff pain 5. ? Consultants: ? Shared disposition: States he feels better and would like to go home ?? Impression:? Procedure No Qualifying Data Assessment/Plan 1.??Chest wall pain??R07.89 Orders: Cardiac Monitoring, 04/02/23 0:54:00 EDT, May be off for activity: No Discharge Patient, 04/02/23 4:28:00 EDT, Home Independently, Constant Indicator NPO, 04/02/23 0:54:00 EDT, Constant Indicator Patient Discharge Condition improved Discharge Disposition home Patient Education Chest Wall Pain, Zajx-na-Pnos Follow Up With When Contact Information Elizabeth Horn MD Within 5 to 7 days [facility] [address] [place] [address]- Additional Instructions: Medication Reconciliation Unchanged acetaminophen (acetaminophen 500 mg [...] times a day (before meals and at bedti. ?? lisinopril (lisinopril 5 mg oral tablet)2 [...] 2 times a day. ?? polyethylene glycol 995223 Gram Oral (given by mouth) every day [...] bilateral (02/22/2018)???Gastric bypass (10/08/2009) Medication Administration Given Toradol, 15 mg, IV Push Zofran, 4 mg, IV Push Allergies ADHESIVE TAPE atorvastatin Social History Electronic Cigarette/Vaping Electronic Cigarette Use: Never. Tobacco Current everyday tobacco user Tobacco Use:. Family History Alzheimer's disease: Mother. Cancer of colon: Father. Diagnostic Results ? * Final Report * ? URL This document has an image ?? XR Chest 1 View PROCEDURE INFORMATION:?? Exam: XR Chest?? Exam date and time: 04/02/2023 12:59 AM?? Age: 67 years old?? Clinical indication: Chest pain? TECHNIQUE:?? Imaging protocol: Radiologic exam of the chest.?? Views: 1 view.? COMPARISON:?? CT CHEST/ABD/PELVIS W/CONTRAST 04/20/2022 9:27 PM? FINDINGS:?? Lungs: Chronic appearing bilateral interstitial lung disease. No?? acute infiltrates. No acute edema.?? Pleural spaces: No pleural effusion.?? Heart/Mediastinum: Normal heart size.?? Bones/joints: Degenerative thoracic spine.? IMPRESSION:?? 1. ?? No acute infiltrates or edema.?? 2. ?? Chronic interstitial lung disease.?? 3. ?? No pleural effusion or pneumothorax.? Report signed by: Ayden Sen On 04/02/2023 ??02:10:48 ?? Result type:?XR Chest 1 View Result date:?April 02, 2023 0:59 EDT Result status:?Auth (Verified) Result title:?XR Chest 1 View Performed by:?DomainUser, Generated on April 02, 2023 0:59 EDT Verified by:?DomainUser, Generated on April 02, 2023 0:59 EDT Encounter info:?[id number], [facility], Emergency, 04/02/2023 - 04/02/2023 Contributor system:?[email or web address] ? * Final Report * ?? CT Brain/Head w/o Contrast PROCEDURE INFORMATION:?? Exam: CT Head Without Contrast?? Exam date and time: 04/02/2023 1:47 AM?? Age: 67 years old?? Clinical indication: Syncope? TECHNIQUE:?? Imaging protocol: Computed tomography of the head without contrast.?? Radiation optimization: All CT scans at this facility use at least?? one of these dose optimization techniques: automated exposure?? control; mA and/or kV adjustment per patient size (includes targeted?? exams where dose is matched to clinical indication); or iterative?? reconstruction.? REPORTING DATA:?? Count of CT and Cardiac NM exams in prior 12 months: This patient has?? received 2 known CTs and 0 known cardiac nuclear medicine studies in?? the 12 months prior to the current study.? COMPARISON:?? CT HEAD/BRAIN WO CONTRAST 04/21/2022 10:25 AM? FINDINGS:?? Brain: Mild cerebral atrophy concordant with patient's age. No?? intracranial hemorrhage. No large territory acute CVA. No mass. No?? cerebral edema.?? Cerebral ventricles: No ventriculomegaly.?? Paranasal sinuses: Sinuses are clear.?? Mastoid air cells: Visualized mastoid air cells are well aerated.? Bones/joints: Intact cranium. No fractures. No bone lesions.?? Soft tissues: Unremarkable.? IMPRESSION:?? Unremarkable noncontrast CT head. No acute findings. Stable exam?? since 04/21/2022.? Report signed by: Ayden Mancinicharlene On 04/02/2023 ??02:12:07 ? URL ECG HR 70 Sinus rhythm...normal P axis, V-rate?? 60- 99 Abnormal R-wave progression, early transition...QRS area>0 in V2 Lab Results Cardiac Isoenzymes?? LATEST RESULTS?? Troponin-I?? 04/02/23 03:46?? 5.5? Electronically Signed on 04/02/23 06:50 AM Juancho Vázquez MD Emergency department Discharge instructions * Juancho Vázquez MD: PERFORM, MODIFY Event Display: ED Discharge Information Authored Date: [id number] ELIZABETH VAZQUEZ :1955 Age:67 years Sex:Male Visit Date:04/02/2023 Primary Care Physician: Elizabeth Horn MD Discharge Instructions We would like to thank you for allowing us to assist you with your healthcare needs. The following includes patient education materials and information regarding your injury/illness. Diagnosis from Today's Visit Chest wall pain Discharge Vitals Temperature??(Temporal Artery) 97.3 ??F (36.3 ??C) Heart Rate??(Peripheral) 67 Heart Rate??(Monitored) 68 Respiratory Rate?? 15 Blood Pressure?? 130/71?? Height?? 70.08 in (178.000 cm) Weight?? 219.62 lb (99.60 kg) BMI?? 31.000 Allergies ADHESIVE TAPE atorvastatin What to Do Next You Need to Schedule the Following Appointments Follow Up with??Elizabeth Horn MD When:??Within 5 to 7 days Where: [facility] [place] [address] [address]- Upcoming Scheduled Appointments Monday 9:30 AM EDT ?? With: Santiago Cornell MD Where: [facility] [address], [address] [place] [address] Status: Confirmed Monday 9:30 AM EST ?? With: Kathy Silverman NP Where: [facility] [address] [place] [address] Status: Confirmed You were treated [...] a total dose of 225mg daily ?? Education Materials Chest Wall Pain Chest wall pain is pain in or around the bones and muscles of your chest. Chest wall pain may be caused by: ? An injury. ? Coughing a lot. ? Using your chest and arm muscles too much. Sometimes, the cause may not be known. This pain may take a few weeks or longer to get better. Follow these instructions at home: Managing pain, stiffness, and swelling If told, put ice on the painful area: ? Put ice in a plastic bag. ? Place a towel between your skin and the bag. ? Leave the ice on for 20 minutes, 2???3 times a day. Activity ? Rest as told by your doctor. ? Avoid doing things that cause pain. This includes lifting heavy items. ? Ask your doctor what activities are safe for you. General instructions ? Take zagz-qoq-kumasyc and prescription medicines only as told by your doctor. ? Do not use any products that contain nicotine or tobacco, such as cigarettes, e- cigarettes, and chewing tobacco. If you need help quitting, ask your doctor. ? Keep all follow-up visits as told by your doctor. This is important. Contact a doctor if: ? You have a fever. ? Your chest pain gets worse. ? You have new symptoms. Get help right away if: ? You feel sick to your stomach (nauseous) or you throw up (vomit). ? You feel sweaty or light-headed. ? You have a cough with mucus from your lungs (sputum) or you cough up blood. ? You are short of breath. These symptoms may be an emergency. Do not wait to see if the symptoms will go away. Get medical help right away. Call your local emergency services (911 in the [place] Do not drive yourself to the hospital. Summary ? Chest wall pain is pain in or around the bones and muscles of your chest. ? It may be treated with ice, rest, and medicines. Your condition may also get better if you avoid doing things that cause pain. ? Contact a doctor if you have a fever, chest pain that gets worse, or new symptoms. ? Get help right away if you feel light-headed or you get short of breath. These symptoms may be an emergency. This information is not intended to replace advice given to you by your health care provider. Make sure you discuss any questions you have with your health care provider. Document Revised: 09/28/2021 Document Reviewed: 09/10/2021 [employer] Patient Education ?? 2022 [employer] Tests Performed Medications and Immunizations Administered Given Toradol, 15 mg, IV Push Zofran, 4 mg, IV Push Lab Test Name Test Result Date/Time WBC 5.4 x10^3/mcL 04/02/2023 00:40 EDT RBC 5.0 x10^6/mcL 04/02/2023 00:40 EDT Hgb 14.8 g/dL 04/02/2023 00:40 EDT Hct 43.2 % 04/02/2023 00:40 EDT MCV 86.9 fL 04/02/2023 00:40 EDT MCH 29.8 pg 04/02/2023 00:40 EDT MCHC 34.3 g/dL 04/02/2023 00:40 EDT RDW-CV 12.7 % 04/02/2023 00:40 EDT Platelets 188 x10^3/mcL 04/02/2023 00:40 EDT Neutro Auto 57.3 % 04/02/2023 00:40 EDT Lymph Auto 29.9 % 04/02/2023 00:40 EDT Lake Auto 7.9 % 04/02/2023 00:40 EDT Eos, Auto 4.3 % 04/02/2023 00:40 EDT Basophil Auto 0.4 % 04/02/2023 00:40 EDT Imm Gran Auto 0.2 % 04/02/2023 00:40 EDT Neutro Absolute 3.1 x10^3/mcL 04/02/2023 00:40 EDT Slide Review Not Indicated 04/02/2023 00:40 EDT Sodium Level 140 mmol/L 04/02/2023 00:40 EDT Potassium Level 4.5 mmol/L 04/02/2023 00:40 EDT Chloride Level 103 mmol/L 04/02/2023 00:40 EDT CO2 27 mmol/L 04/02/2023 00:40 EDT Alk Phos 84 unit/L 04/02/2023 00:40 EDT AST 16 unit/L 04/02/2023 00:40 EDT ALT 23 unit/L 04/02/2023 00:40 EDT BUN 17 mg/dL 04/02/2023 00:40 EDT Glucose Level 136 mg/dL 04/02/2023 00:40 EDT Creatinine Level 1.20 mg/dL 04/02/2023 00:40 EDT eGFR AA 67 04/02/2023 00:40 EDT eGFR Non-AA 67 04/02/2023 00:40 EDT Calcium Level 9.0 mg/dL 04/02/2023 00:40 EDT Protein Total 7.6 g/dL 04/02/2023 00:40 EDT Albumin Level 4.2 g/dL 04/02/2023 00:40 EDT Bilirubin Total 0.4 mg/dL 04/02/2023 00:40 EDT Troponin-I 5.5 pg/mL 04/02/2023 03:46 EDT Patient/Email Developer Signature Patient Name:NEDELIZABETH HORN I have received this information and my questions have been answered. Patient/Email Developer Name: Patient/Email Developer Signature: Relationship to Patient: Witness Name/Signature: Date: Electronically Signed on: 04/02/2023 04:28 EDTSigned by:JACQUI Patient Care team information Care Team Personnel Name: Marisa Carbajal NP Position: Physician Member Role: Nurse Practitioner Name: Elizabeth Horn MD Position: No Access Member Role: Primary Care Physician Address: Address: [facility] [address] [facility], [place] [address] Name: Juancho Vázquez MD Position: Physician Member Role: Attending Physician Address: Address: [address] [facility] [place] [address]- Name: Leena Gregory RN Position: Nurse Member Role: ED Nurse Care Team Related Persons Name: JENIFFER VAZQUEZ Name: TEETEE VAZQUEZ Address: Home [address] [place], [id number]
--- OUTSIDE RECORDS SUMMARY | 2023-08-17 15:48 | XMS_ITS | Continuity of Care Document ---
Author Name Unknown Organization [facility] Address [address] [place] [address] Care Team Providers Care Clinical Care Coordinator Name Role Phone Elizabeth Horn Primary Care Physician [phone] Encounter [facility] Date(s): 05/11/22 - 05/11/[address] [address] Encounter Diagnosis Hip fx(Discharge Diagnosis) - 05/11/22 Discharge Disposition: Home or Self Care Attending Physician: Santiago Cornell MD Admitting Physician: Santiago Cornell MD Referring Physician: Santiago Cornell MD Allergies, Adverse Reactions, [...] severe, # 30 tab, 0 Refill(s), Pharmacy: [email or web address], 178, cm, 04/22/22 6:28:00 EDT, [...] Safety Implantable Status Assigning Authority Unknown Unknown [id number] Unknown 10/11/30 Unknown Unknown Active Unknown Unknown Unknown [id number] Unknown 07/26/31 Unknown Unknown Active Unknown Unknown Unknown [id number] Unknown 01/05/25 Unknown Unknown Active Unk nown Unknown Unknown [id number] Unknown 07/08/24 Unknown Unknown Active Un known Unknown Unknown [id number] Unknown 01/05/23 Unknown Unknown Active Unk nown Patient Care team information Personnel Name: Elizabeth Horn Address: Address: [address] [place], [place] [address]
--- OUTSIDE RECORDS SUMMARY | 2023-08-17 15:48 | XMS_ITS | Continuity of Care Document ---
Author Name Unknown Organization [facility] Address [address] [place] [address] Care Team Providers Care Dredge Deckhand Name Role Phone Elizabeth Horn Primary Care Physician Encounter [facility] Date(s): 10/05/22 - 10/05/22 [facility] [address] [place] [address] Discharge Disposition: Home or Self Care Attending Physician: Kathy Silverman NP Admitting Physician: Kathy Silverman NP Referring Physician: Kathy Silverman BOAT ENGINE MECHANIC Allergies, Adverse Reactions, Alerts Substance Reaction Severity [...] severe, # 30 tab, 0 Refill(s), Pharmacy: [id number], 178, cm, 04/22/22 6:28:00 EDT, [...] Safety Implantable Status Assigning Authority Unknown Unknown [id number] Unknown 10/11/30 Unknown Unknown Active Unknown Unknown Unknown [id number] Unknown 07/26/31 Unknown Unknown Active Unknown Unknown Unknown [id number] Unknown 01/05/25 Unknown Unknown Active Unk nown Unknown Unknown [id number] Unknown 07/08/24 Unknown Unknown Active Un known Unknown Unknown [id number] Unknown 01/05/23 Unknown Unknown Active Unk nown Patient Care team information Care Team Personnel Name: Marisa Carbajal BOAT ENGINE MECHANIC Position: Physician Member Role: Nurse Practitioner Name: Elizabeth Horn MD Position: No Access Member Role: Primary Care Physician Address: Address: [address] [place], [place] [address] Care Team Related Persons Name: JENIFFER VAZQUEZ Address: Home Name: TEETEE VAZQUEZ Address: [address] [id number]
--- OUTSIDE RECORDS SUMMARY | 2023-08-17 15:48 | XMS_ITS | Continuity of Care Document ---
Author Name Unknown Organization [facility] Address [address] [place] [address] Care Team Providers Care Manager Project Management Name Role Phone Elizabeth Horn Primary Care Physician [phone] [facility] 08/05/22 - 08/05/22 [facility] [address] [place] [address] Encounter Diagnosis VIJAY - Obstructive sleep apnea(Discharge Diagnosis) - 08/03/22 Discharge Disposition: Home or Self Care Attending Physician: Kathy Silverman AUTO TRANSPORT DRIVER Allergies, Adverse Reactions, Alerts Substance Reaction Severity Status ADHESIVE TAPE Unknown Active atorvastatin Unknown Active Assessment and Plan Future Appointments Functional Status 08/05/22 Other exposure to Infectious Disease Non e [...] severe, # 30 tab, 0 Refill(s), Pharmacy: [facility], 178, cm, 04/22/22 6:28:00 EDT, [...] Most recent to oldest [Reference Range]: 1 Weight 101.60 kg (08/05/22 11:58 AM) Weight Measured (lbs) 223.989 lb (08/05/22 11:58 AM) Height 178 cm (08/05/22 11:58 AM) Height/Length Measured (inches) 70.08 in ch (08/05/22 11:58 AM) BSA Measured 2.24 m2 (08/05/22 11:58 AM) Body Mass Index 32.07 kg/m2 (08/05/22 11:58 AM) Social History Social History Type Response Tobacco Current everyday tob acco user Tobacco Use:. Sex Male Implantable Device List Procedure Provider Procedure Date Device Type Site Gamma Nail Long Santiago Cornell MD 04/22/22 Non Biolo gical Hip R Device Identifier Serial Number Lot or Batch Number Manufacturing Date Expiration Date Distinct Identification Code MRI Safety Implantable Status Assigning Authority Unknown Unknown [id number] Unknown 10/11/30 Unknown Unknown Active Unknown Unknown Unknown [id number] Unknown 07/26/31 Unknown Unknown Active Unknown Unknown Unknown [id number] Unknown 01/05/25 Unknown Unknown Active Unk nown Unknown Unknown [id number] Unknown 07/08/24 Unknown Unknown Active Un known Unknown Unknown [id number] Unknown 01/05/23 Unknown Unknown Active Unk nown Progress note * Everardo Vasquez M: PERFORM Event Display: Progress Note - Physician Authored Date: [id number] Physician Outpatient Note * Kathy Silverman AUTO TRANSPORT DRIVER: PERFORM, MODIFY Event Display: Office Clinic Note Physician Authored Date: [id number] ELIZABETH VAZQUEZ :1955 Age:66 years Sex:Male Visit Date:08/05/2022 Primary Care Physician: Elizabeth Horn MD History of Present Illness Elizabeth Vazquez is a 64-year-old man who has a Zoom visit for follow-up on obstructive sleep apnea. He has given consent to have a telehealth visit. Patient is at home, provider is in the office. ?? He was last seen by me on 05/18/2021. He has a medical history to include anemia, anxiety, depression, chronic pain, HTN, GERD, alcohol abuse, DM, obesity, OA, PLMS and VIJAY. ?? PSG AHI 06/07/19 (BMI 34.17) 11.3/hr, sp02 reymundo 77%, PLMi 71/hr, PLMai 6/hr. Titration 09/15/19 (BMI34.17), CPAP 11 cm was successful in supine REM, PLMi 55.9/hr, PLMai 2.2/hr, CPAP 7-13 cm recommended. ?? At his last visit he was using CPAP 6-14 cm but had poor compliance due to often sleeping in the couch. He was encouraged to increase use. ?? Elizabeth tells me he was evicted from his rental and his CPAP was put in a bag outside and it it got wet and ruined it. He said he tried to use it again and it was reading an error message and machine tool technician instructor needed. He said he was using it pretty regularly up until then unless I fell asleep. His was helpingto remind him to put it on more often. ??When he used CPAP he was generally tolerating it well, he liked the nasal pillows better than the full face mask which caused him to have anxiety. He currently gets to bed around 9 pm and watches TV until he falls asleep in about 1-1.5 hours. He wakes up 1-2 to urinate and he is able to get back to sleep. He gets up at 7-8 am to start his day. He is napping some days. He is snoring, he is occasionally waking gasping/short of breath and has occasional morning headaches. ?? He recently had surgery for a broken hip/femur (April 22). ?? ESS COMPLIANCE DATA REVIEWED WITH PATIENT: Dates 06/02/22-07/01/22,??Days used 01/06, average use??3 hours, 31 minutes,??median pressure 7.1??cm,??95 th percentile pressure??8.4 cm,??95 th percentile air leak 0 lpm, AHI 4.6/hr Physical Exam Vitals & Measurements HT:??178??cm?? WT:??101.60??kg?? BMI:??32.07?? BSA:??2.24?? Assessment/Plan 1.??VIJAY - Obstructive sleep apnea??G47.33 VIJAY diagnosed in 2019 with an AHI of 11.3/hr. He has been treated with CPAP 6-14 cm. His CPAP is unfortunately broken so he needs a new one. He is having loud snoring, apneas, excessive daytime sleepiness, nocturia and morning headaches and he is anxious to get back on CPAP because he slept better and felt better when using CPAP. ??I placed an order for CPAP 6-14 cm. I went over insurance??compliance requirements and really stressed that he needs to use it regularly and if he doesn't than it will be taken away. I will see him back in three months. He is asked to call our office for any sleep related questions or concerns.?? He is not currently driving. I provided greater than 30 minutes in the care of this patient, more than half the time was spent in [id number] counseling. Ordered: Follow-Up Appointment Request FRANCY, *Est. 11/03/22 +/- 21 days, Future Order, In [facility] ?? Problem List/Past Medical History Ongoing Acute blood [...] replacement - bilateral (02/22/2018)???Gastric bypass (10/08/2009) Medications acetaminophen 500 mg oral tablet, 1000 mg= 2 tab, Oral, every 6 hr, PRN aspirin 81 mg oral delayed release tablet, 81 mg= 1 tab, Oral, Daily diclofenac 1% topical gel, 2 g, Topical, every 8 hr, PRN docusate sodium 100 mg oral capsule, 100 mg= 1 cap, Oral, BID, PRN gabapentin 800 mg oral tablet, 800 mg= 1 tab, Oral, TID glipiZIDE 10 mg oral tablet, extended release, 10 mg= 1 tab, Oral, BID insulin lispro 100 units/mL injectable solution, Moderate Scale, Subcutaneous, QID(ACHS) lisinopril 5 mg oral tablet, 10 mg= 2 tab, Oral, Daily metFORMIN 1000 mg oral tablet, extended release, 1000 mg= 1 tab, Oral, BID oxyCODONE 10 mg oral tablet, 10 mg= 1 tab, Oral, every 4 hr, PRN pantoprazole 40 mg oral delayed release tablet, 40 mg= 1 tab, Oral, BID polyethylene glycol 3350, 17 g, Oral, Daily, PRN ProAir HFA 90 mcg/inh inhalation aerosol, 2 puffs, Inhale, every 4 hr, PRN senna 8.6 mg oral tablet, 17.2 mg= 2 tab, Oral, Daily, PRN tamsulosin 0.4 mg oral capsule, 0.4 mg= 1 cap, Oral, every night at bedtime Trulicity Pen 1.5 mg/0.5 mL subcutaneous solution, 1.5 mg, Subcutaneous, every week venlafaxine 150 mg oral capsule, extended release, 150 mg= 1 cap, Oral, Daily venlafaxine 75 mg oral capsule, extended release, 75 mg= 1 cap, Oral, Daily Vitamin D3 2000 intl units oral capsule, 50 mcg= 1 cap, Oral, Daily Allergies ADHESIVE TAPE atorvastatin Social History Electronic [...] 23-polyvalent vaccine 07/16/2014 Recorded Electronically Signed on 08/05/22 12:14 PM Kathy Silverman NP Electronically Signed on 08/05/22 12:47 PM Kathy Silverman AUTO TRANSPORT DRIVER Patient Care team information Personnel Name: Elizabeth Horn MD Address: Address: [address] [place] [address]-
[2023-08-17 15:55] LABS: BUN 17 mg/dL (7-18); Calcium 9.6 mg/dL (8.5-10.1); Chloride 101 mmol/L (98-107); Estimated GFR 83.01 (mL/min/1.73m2); Glucose 202 mg/dL (74-106); Potassium 4.4 mmol/L (3.5-5.1); Sodium 138 mmol/L (136-145)
[2023-08-17 16:28] LABS: Hemoglobin A1C 7.2 % (<5.7)
== END 2023-08-17 15:47 | disposition home or self-care (01) ==
LOC: NCHCN 15:46
PROVIDERS: PCP Family Medicine; Visit Provider Family Medicine
DX: E11.9 Type 2 diabetes mellitus without complications (principal)
CPT/HCPCS: 80048; 83036

== ENCOUNTER 2023-09-01 09:51 | Day surgery (SDC) | payer MEDICARE, SELFPAY ==
--- NOTE | 2023-09-01 09:48 | W.PREOPHP ---
Assessment and Plan Assessment and plan (1) Cortical age-related cataract, left eye: Status: Acute Assessment and plan: Assessment: Visually significant cataract of the left eye. Plan: Cataract extraction with lens implantation of the left eye. (2) Posterior subcapsular age-related cataract of left eye: Status: Acute Assessment and plan: Assessment: Visually significant cataract of the left eye. Plan: Cataract extraction with lens implantation of the left eye. (3) Nuclear age-related cataract, left eye: Status: Acute Assessment and plan: Assessment: Visually significant cataract of the left eye. Plan: Cataract extraction with lens implantation of the left eye. History of Present Illness History of Present Illness Chief Complaint: Progressive decreased vision, both eyes Narrative: Patient is a 67-year-old male with history of progressive decreased vision in both eyes at both distance and near, left eye worse than right. He has significant difficulty driving at night due to glare, and can no longer read road signs. On examination he is noted to have significant bilateral nuclear/posterior subcapsular cataracts, left eye worse than right. The option of cataract surgery was offered to the patient and he wished to proceed. Review of Systems All systems reviewed & are unremarkable except as noted in HPI and below PFSH All Active Problems Posterior subcapsular age-related cataract, right eye (Acute) Cortical age-related cataract, right eye (Acute) Nuclear age-related cataract, right eye (Acute) Cortical age-related cataract, left eye (Acute) Posterior subcapsular age-related cataract of left eye (Acute) Nuclear age-related cataract, left eye (Acute) Peyronie's disease (Acute) Memory impairment (Acute) Osteoarthritis of knees, bilateral (Acute) Peroneal tendinitis (Acute) Mass of parotid gland (Acute) Closed fracture of finger of left hand (Acute 09/29/21) small finger Hiatal hernia (Chronic) Foot pain, right (Acute) Cellulitis of foot, right (Acute) Other sprain of right shoulder joint, initial encounter (Acute) Fall (Acute) SOB (shortness of breath) (Acute) Shortness of breath at rest (Acute) Weakness with dizziness (Acute) Anastomotic stricture of gastrojejunostomy (Acute) Diabetes mellitus type II, uncontrolled (Chronic) S/P gastric bypass (Chronic) Liver cirrhosis secondary to nonalcoholic steatohepatitis (HERR) (Acute) Degenerative cervical spinal stenosis (Chronic 12/23/14) Hyperlipidemia (Acute 05/16/13) Obesity (BMI 35.0-39.9 without comorbidity) (Acute) Hypertension (Acute) GERD (gastroesophageal reflux disease) (Acute) Dysphagia (Chronic) Chest pain (Acute) Medical History GERD (gastroesophageal reflux disease) Alcoholic cirrhosis of liver without ascites Non-insulin dependent type 2 diabetes mellitus Dementia Per pt. states he still signs for himself Low back pain Chest pain Per pt. this was related to when he had gastric bypass he had scarring over his esophagus, and it wasn't cardiac in nature Elevated bilirubin Abnormality of penis (11/18/14) Anxiety (07/16/14) Benign neoplasm of colon (08/15/11) Depression (07/16/14) Erectile dysfunction (06/19/14) Sensorineural hearing loss, bilateral (01/06/17) BPH (benign prostatic hyperplasia) Surgical History Hx of cholecystectomy Hx of total knee replacement Bilateral. History of colonoscopy (~10/30/20) History of esophagogastroduodenoscopy (EGD) (~08/13/21) 10/30/20 H/O gastric bypass 2010 bunionectomy (07/18/14) Left Dr Márquez Rotator Cuff Repair Repair, ACL Repair of inguinal hernia Family History Mother Alzheimer disease Social History Smoking/Tobacco Use Status: Former Tobacco Use Quit Date: 07/10/85 Smoking risk assessment performed?: Yes Alcohol Intake: former Drug use: Never Substance use type: does not use Household members: spouse Housing: house current occupation: retired Current gender identity: male What is your relationship status?: Panel score (0-1 are the most socially isolated patients): 1 Additional Social history: unable to assess privately Meds Allergies and Home Medications Allergies Allergy/AdvReac Type Severity Reaction Status Date / Time adhesive Allergy Intermediate blisters Verified 09/01/23 10:56 atorvastatin Allergy Intermediate .chest Verified 09/01/23 10:56 pain/diaphroresis Home Medications Medication Instructions Recorded Confirmed Type metformin 1,000 mg tablet 1,000 mg PO BID 11/27/17 09/01/23 History (Glucophage) gabapentin 800 mg tablet 800 mg PO TID 07/02/20 09/01/23 History glipizide 10 mg tablet, extended 10 mg PO BID 07/02/20 09/01/23 History release 24 hr pantoprazole 40 mg tablet,delayed 40 mg PO BID 07/02/20 09/01/23 History release venlafaxine 225 mg tablet,extended 225 mg PO DAILY 07/02/20 09/01/23 History release 24 hr diclofenac sodium 1 % topical gel 2 g topical QID #50 grams 11/13/20 09/01/23 Rx (Voltaren Arthritis Pain) acetaminophen 500 mg tablet 1,000 mg PO Q6H PRN 10/26/21 09/01/23 History clotrimazole 1 % topical cream 1 applic topical BID 10/26/21 09/01/23 History dulaglutide 1.5 mg/0.5 mL 1.5 mg subcut QWEEK 10/26/21 09/01/23 History subcutaneous pen injector (Trulicity) tamsulosin 0.4 mg capsule (Flomax) 0.8 mg (2 x 0.4 mg) PO HS #180 caps 05/25/23 09/01/23 Rx Exam Eyes Other: Most recent ocular examination is significant for corrected visual acuity of 20/50 right eye, 20/40 left eye. Intraocular pressure is 10 in each eye. Extract motility is normal. Slit-lamp examination shows mild nuclear/cortical/posterior subcapsular cataract of the right eye. In the left eye there is mild nuclear cataract with severe cortical and posterior subcapsular opacification that blocks the view of the retina. Pupils dilate to 5 mm. The remainder of the anterior segment is unremarkable. Funduscopic examination is unable to be performed in the left eye due to dense cataract. In the right eye disc cupping is noted to be 0.3 with normal vessels, macula, peripheral retina and vitreous. Resp Auscultation: clear to auscultation bilaterally Percussion: percussion normal Cardio Rate: regular rate Rhythm: regular rhythm
[2023-09-01 10:41] VITALS: BP 134/79; PULSE 70; RESP 18; TEMP 36.5; O2SAT 96
--- NOTE | 2023-09-01 11:11 | W.ANESPRE ---
General Info Date of Service Date Performed: 09/01/23 Height: 5 ft 10 in Weight: 97.8 kg Body Mass Index (BMI): 30.9 Surgical Procedure: Operation Date: 09/01/23 12:10 Proposed Procedure Side Surgeon p Cataract Extraction with IOL Implant Left Nikolay Burris MD Meds Allergies and Home Medications Allergies Allergy/AdvReac Type Severity Reaction Status Date / Time adhesive Allergy Intermediate blisters Verified 09/01/23 10:56 atorvastatin Allergy Intermediate .chest Verified 09/01/23 10:56 pain/diaphroresis Home Medication Medication Instructions Recorded metformin 1,000 mg tablet 1,000 mg PO BID 11/27/17 (Glucophage) gabapentin 800 mg tablet 800 mg PO TID 07/02/20 glipizide 10 mg tablet, extended 10 mg PO BID 07/02/20 release 24 hr pantoprazole 40 mg tablet,delayed 40 mg PO BID 07/02/20 release venlafaxine 225 mg tablet,extended 225 mg PO DAILY 07/02/20 release 24 hr diclofenac sodium 1 % topical gel 2 g topical QID #50 grams 11/13/20 (Voltaren Arthritis Pain) acetaminophen 500 mg tablet 1,000 mg PO Q6H PRN 10/26/21 clotrimazole 1 % topical cream 1 applic topical BID 10/26/21 dulaglutide 1.5 mg/0.5 mL 1.5 mg subcut QWEEK 10/26/21 subcutaneous pen injector (Trulicity) tamsulosin 0.4 mg capsule (Flomax) 0.8 mg (2 x 0.4 mg) PO HS #180 caps 05/25/23 Current Visit Medications: Current Medications Generic Name Dose Route Start Last Admin Trade Name Freq PRN Reason Stop Dose Admin Acetaminophen 1,000 mg 09/01/23 06:00 Acetaminophen 500 Mg Tab PO 10/01/23 05:59 Q4H PRN PRN Balanced Salt Solution 500 ml 09/01/23 06:00 Balanced Salt Soln.-Plus 500 Ml Bag OP 10/01/23 05:59 DIRECTED VINCENT Miscellaneous Medication 0 ml 09/01/23 06:00 Prednisolone 1%, Moxifloxacin 0.5%, Bromfenac 0.09% 5ml Btl OS 10/01/23 05:59 DIRECTED VINCENT Miscellaneous Medication 0 ml 09/01/23 06:00 09/01/23 11:07 Tropicam./Phenyleph. (1/2.5%) 10 Ml Btl OS 10/01/23 05:59 1 drp DIRECTED VINCENT Administration Tetracaine HCl 0 ml 09/01/23 06:00 Tetracaine 0.5% 4 Ml Btl OS 10/01/23 05:59 DIRECTED VINCENT PFSH Active Problems Active Problems: Problem Status Onset Code Posterior subcapsular age-related cataract, right eye H25.041 Cortical age-related cataract, right eye H25.011 Nuclear age-related cataract, right eye H25.11 Cortical age-related cataract, left eye H25.012 Posterior subcapsular age-related cataract of left eye H25.042 Nuclear age-related cataract, left eye H25.12 Peyronie's disease N48.6 Memory impairment R41.3 Osteoarthritis of knees, bilateral M17.0 Peroneal tendinitis M76.70 Mass of parotid gland K11.8 Closed fracture of finger of left hand 09/29/21 S62.609A Hiatal hernia K44.9 Foot pain, right M79.671 Cellulitis of foot, right L03.115 Other sprain of right shoulder joint, initial encounter S43.491A Fall W19.XXXA SOB (shortness of breath) R06.02 Shortness of breath at rest R06.02 Weakness with dizziness R53.1, R42 Anastomotic stricture of gastrojejunostomy K91.89 Diabetes mellitus type II, uncontrolled E11.65 S/P gastric bypass Z98.84 Liver cirrhosis secondary to nonalcoholic steatohepatitis (HERR) K75.81, K74.60 Degenerative cervical spinal stenosis 12/23/14 M48.02 Hyperlipidemia 05/16/13 E78.5 Obesity (BMI 35.0-39.9 without comorbidity) E66.9 Hypertension I10 GERD (gastroesophageal reflux disease) K21.9 Dysphagia R13.10 Chest pain R07.9 Medical History Medical History GERD (gastroesophageal reflux disease) Alcoholic cirrhosis of liver without ascites Non-insulin dependent type 2 diabetes mellitus Dementia Per pt. states he still signs for himself Low back pain Chest pain Per pt. this was related to when he had gastric bypass he had scarring over his esophagus, and it wasn't cardiac in nature Elevated bilirubin Abnormality of penis (11/18/14) Anxiety (07/16/14) Benign neoplasm of colon (08/15/11) Depression (07/16/14) Erectile dysfunction (06/19/14) Sensorineural hearing loss, bilateral (01/06/17) BPH (benign prostatic hyperplasia) Surgical History Surgical History Hx of cholecystectomy Hx of total knee replacement Bilateral. History of colonoscopy (~10/30/20) History of esophagogastroduodenoscopy (EGD) (~08/13/21) 10/30/20 H/O gastric bypass 2010 bunionectomy (07/18/14) Left Dr Márquez Rotator Cuff Repair Repair, ACL Repair of inguinal hernia Tobacco Smoking/Tobacco Use Status: Former Tobacco Use Alcohol Alcohol Intake: former Substance Use Substance use: Never Substance use type: does not use Vital Signs and Lab Results Vital Signs Most Recent Vital Signs in EMR: Most Recent Vital Signs Temp Pulse Resp BP Pulse Ox 36.5 C 70 18 134/79 96 09/01/23 10:41 09/01/23 10:41 09/01/23 10:41 09/01/23 10:41 09/01/23 10:41 Lab Results Blood Type / Crossmatch: No Data to Display Complete Blood Count: No Data to Display Complete Metabolic Panel: Sodium 138 mmol/L (136-145) 08/17/23 09:05 Potassium 4.4 mmol/L (3.5-5.1) 08/17/23 09:05 Chloride 101 mmol/L (98-107) 08/17/23 09:05 Carbon Dioxide 25.0 mmol/L (21.0-32.0) 08/17/23 09:05 BUN 17 mg/dL (7-18) 08/17/23 09:05 Creatinine 1.0 mg/dL (0.70-1.30) 08/17/23 09:05 Est GFR (CKD-EPI 2020) 83.01 (mL/min/1.73m2) 08/17/23 09:05 Calcium 9.6 mg/dL (8.5-10.1) 08/17/23 09:05 Glucose 202 mg/dL (74-106) H 08/17/23 09:05 Hemoglobin A1c 7.2 % (<5.7) H 08/17/23 09:05 Liver Function Panel: No Data to Display Coagulation Panel: No Data to Display Cardiac Panel: No Data to Display Arterial Blood Gas: No Data to Display Venous Blood Gas: No Data to Display Pancreas Panel: No Data to Display Thyroid Panel: No Data to Display Infectious Disease: No Data to Display Blood Cultures: No Data to Display Toxicology Panel: No Data to Display Imaging and Studies Imaging and Studies Study information below may be from another EMR and interpreted by another provider. Please see original notes in EMR for more complete details. EKG Summary: DATE/TIME OF SERVICE: 08/19/20 Conclusion Sinus rhythm...normal P axis, V-rate 60- 99 Stress Test Summary: Date of study: 11/11/2016 Impressions: Normal perfusion by Tc99m Sestamibi [facility]. Echocardiogram Summary: Date of study: 11/29/2016 Summary: 1. Left ventricle: The cavity size was normal. There was mild asymmetric hypertrophy of the septum. Systolic function was normal. The estimated ejection fraction was 55-60%. Wall motion was normal; there were no regional wall motion abnormalities. 2. Mitral valve: There was mild regurgitation. 3. Right ventricle: The cavity size was normal. Wall thickness was normal. Systolic function was normal. 4. Pulmonary arteries: Pulmonary systolic pressure was increased, in the range of 35mm Hg to 40mm Hg. Pulmonary Function Summary: Date of service: 08/03/20 Time of Service: 08:03 Pulmonary Function Test Result Interpretation Spirometry: Shows no evidence of obstructive airways disease, no bronchodilator response Lung Volumes: No evidence of restriction Diffusion Capacity: Mildly reduced, this is normal when corrected to alveolar volume. This also represents a somewhat suboptimal patient effort Airway Pressure: Normal Impression Overall, normal pulmonary function study the slightly low diffusion capacity is likely due to suboptimal patient effort for that maneuver when the study was compared to previous 1 from 05/08/2017 diffusion capacity is slightly lower but is stable when corrected to alveolar volume FVC had asked 680 cc decline, FEV1 had declined by 560 cc both pre and postbronchodilator spirometry efforts were poor Clinical Correlation therefore is recommended. Anesthesia Assessment and Plan Anesthesia History Personal History: No History of Anesthesia Complications Family History: No Family History of Anesthesia Complications Exercise Tolerance Exercise Tolerance: Metabolic Equivalents<4 Pertinent Negatives Pertinent Negatives: No Symptoms of GERD (well controlled on med) Cardiac & Pulmonary Exam Cardiac Exam: Normal S1/S2 Heart Sounds Pulmonary Exam: Clear Bilateral Breath Sounds Implantable Cardiac Device Does patient have a Pacemaker or an ICD?: No Airway Exam Known Difficult Airway: No Mallampati Class: 3 Mouth Opening: Normal (> 3cm) Thyromental Distance: Less than 3 cm Neck Range of Motion: Full ROM Neck Circumference: Normal Teeth Condition: Normal Dentition ASA Classification ASA Score: ASA 3 Emergency Case?: No NPO Status NPO Status: NPO Clears >2 hours, Solids >8 hours Anesthesia Plan Resuscitation Status: Full Code Anesthesia Technique: MAC Anesthesia Airway Planned: Natural Airway Monitors Used: Standard Monitors
[2023-09-01 11:28] VITALS: BMI 30.9
[2023-09-01] MEDS: Balanced Salt Soln.-PLUS 500 ML BAG OP (12:49)
[2023-09-01] MEDS: Tetracaine 0.5% 4 ML BTL OS (12:50)
[2023-09-01] MEDS: Lidocaine 1% Pres-Free 5 ML VIAL (12:50)
[2023-09-01] MEDS: Povidone-Iodine Ophth 30 ML BTL (12:56)
[2023-09-01] MEDS: Duovisc Viscoelastic System EACH 1 EACH (12:57)
[2023-09-01] MEDS: Trypan Blue 0.06% 0.5 ML SYR (12:58)
--- NOTE | 2023-09-01 13:02 | W.PM.DSUDISC ---
Date of service: 09/01/23 Time of Service: 13:03 Discharge Plan Disposition Patient Disposition: Home Discharge Details Attending Provider: Nikolay Burris Primary Care Provider: Yung Horn Home Meds and New Rx's Prescriptions: No Action tamsulosin [Flomax] 0.4 mg capsule 0.8 mg PO HS Qty: 180 0RF Trulicity 1.5 mg/0.5 mL pen injector 1.5 mg subcut QWEEK acetaminophen 500 mg tablet 1,000 mg PO Q6H PRN clotrimazole 1 % cream 1 applic topical BID metformin [Glucophage] 1,000 MG tablet 1,000 mg PO BID diclofenac sodium [Voltaren Arthritis Pain] 1 % gel 2 g topical QID Qty: 50 0RF Rx Instructions: apply to single elbow, wrist or hand; for hand includes palm/fingers/back of hand glipizide 10 mg tablet extended release 24hr 10 mg PO BID Patient Comments: TK 2 TS PO D FOR BS gabapentin 800 mg tablet 800 mg PO TID Patient Comments: TAKE 1 TABLET BY MOUTH THREE TIMES DAILY FOR PAIN pantoprazole 40 mg tablet,delayed release (DR/EC) 40 mg PO BID Patient Comments: TK 1 T PO BID venlafaxine 225 mg tablet extended release 24hr 225 mg PO DAILY Patient Comments: TAKE 1 TABLET BY MOUTH EVERY DAY Discharge Instructions Stand Alone Forms: DSU Post-Op Cataract, Cheyanne Hu (DSU) Discharge Orders Discharge Orders: Discharge Order (Routine); Ordered 09/01/23 Ordered By: Nikolay Burris DS: Diagnosis Discharge Diagnosis (1) Cortical age-related cataract, left eye: Status: Resolved (2) Posterior subcapsular age-related cataract of left eye: Status: Resolved (3) Nuclear age-related cataract, left eye: Status: Resolved
--- NOTE | 2023-09-01 13:03 | W.PM.OP ---
Date of service: 09/01/23 Time of Service: 13:03 Operative Note Operative Note DATE OF PROCEDURE: 09/01/23 PRE-OP DIAGNOSIS: Nuclear/posterior subcapsular cataract, left eye POST-OP DIAGNOSIS: same PROCEDURE: Cataract extraction using phacoemulsification with intraocular lens implant, left eye SURGEON: Nikolay Burris ANESTHESIA TYPE: Local By Surgeon and MAC Refer to Anesthesia Record PATHOLOGY: none sent COMPLICATIONS: None Patient was transported to: same day Patient's condition: stable Implants: Ge Clareon [id number] Indications: Progressive decreased vision due to cataract, left eye Procedure Description: CATARACT SURGERY OPERATIVE REPORT PREOPERATIVE DIAGNOSIS: Nuclear/posterior subcapsular cataract, left eye POSTOPERATIVE DIAGNOSIS: Same OPERATION: Cataract extraction using phacoemulsification with posterior chamber intraocular lens implant, left eye. IOL: IOL Quality Assurance/R&D Lab Technician/Model: Ge Clareon [id number] IOL Power: + 18.0 diopters IOL Serial Number: [id number] Optic Diameter: 6.0mm Haptic/Overall Diameter: 13.0mm PHACO INFO: GeRewalonurion Vision System with OZil and Active Fluidics Cumulative Dispersed Energy (CDE): 8.12 seconds SURGEON: Nikolay Burris MD, LYNDSEY ANESTHESIA: Monitored Anesthesia Care (MAC), with local sub-tenon's anesthetic infiltration COMPLICATIONS: None SPECIMENS: None INDICATIONS FOR PROCEDURE: The patient is a 67-year-old male with history of diminished visual acuity in his left eye. He is noted to have a dense cortical and posterior subcapsular cataract with mild nuclear cataract in the left eye. He is significantly symptomatic that he desires cataract surgery and attempt to improve and maximize his vision. See office notes for detailed information. PROCEDURE: The correct surgical eye was identified and marked as the left eye and the pupil was dilated in the preoperative area using mydriatics and cycloplegics. The dilated pupil size was 7.0 mm. The patient elected to proceed without oral sedation. The patient was brought to the operating room where cardiopulmonary monitoring was instituted and surgical time-out was performed, confirming the correct operative eye and IOL power. Topical anesthesia was administered and ophthalmic povidone-iodine 5% was instilled into the conjunctival fornices. The elodia-ocular area was prepped with Betadine 10% solution and draped in the usual sterile fashion for intraocular surgery, including an aperture drape. A Tegaderm transparent film dressing was cut in half and used to cover the lashes and lid margins. Care was taken to sequester the lashes and lid margins under the Tegaderm dressing. A lid speculum was placed between the lids of the operative eye and the Ge [employer] operating microscope was maneuvered into position. Luc scissors were then used to make a conjunctival buttonhole approximately 6mm posterior to the limbus in the inferonasal quadrant. Blunt dissection was carried out to expose bare sclera, and a blunt-tipped sub-tenon?s anesthesia cannula was introduced and passed posteriorly along the globe where non-preserved plain lidocaine was injected into posterior sub-Tenon?s space. A sideport knife was used to make a paracentesis port. VisionBlue was injected into the anterior chamber and allowed to sit for 20 seconds. Intraocular phenylephrine/lidocaine was injected into the anterior chamber. The anterior chamber was then filled with viscoelastic. A keratome knife was used construct a two-plane clear corneal tunnel extending 2.0mm into clear cornea. A flap was raised on the anterior capsule and capsulorhexis forceps were used to complete a continuous curvilinear capsulorhexis of 5.5 mm. Balanced salt solution was then used to perform cortical cleaving hydrodissection and nuclear hydrodelineation until the lens could be freely rotated within the capsular bag. The lens nucleus was then disassembled and removed within the capsular bag and iris plane using phacoemulsification. Residual cortical material was removed using the irrigation/aspiration handpiece. The posterior capsule was carefully polished to remove as much residual lens epithelial cells as safely possible. The capsular bag was then inflated and the anterior chamber deepened with viscoelastic. The lens implant described above was inserted into the capsular bag using the Ge Autonome Injector. A Kuglen hook was used to dial the IOL into position. Residual viscoelastic was then removed first from posterior to the IOL, then from the anterior chamber using the I/A handpiece. The lens implant was noted to center nicely within the capsular bag. The incisions were stromally hydrated, and the anterior chamber was reformed using BSS. Then 0.5cc of moxifloxacin 1.0mg/ml were injected into the capsular bag and anterior chamber. The incisions were checked with a Weck spear and found to be secure. Several drops of ophthalmic povidone-iodine 5% were then applied to the eye followed by two drops of combination steroid/NSAID/antibiotic solution. The drapes were removed and a clear plastic protective eye shield was placed over the eye. The patient was then returned to Same Day Surgery in stable condition.
[2023-09-01 13:08] VITALS: BP 131/72; PULSE 79; RESP 18; TEMP 36.7; O2SAT 96
--- NOTE | 2023-09-01 13:20 | W.ANESPOSTOP ---
Postoperative Evaluation Date, Time and Location Date Performed: 09/01/23 Time Performed: 13:15 Patient Location: Day Surgery Unit Vital Signs Most Recent Imported Vital Signs: Most Recent Vital Signs Temp Pulse Resp BP Pulse Ox 36.7 C 79 18 131/72 96 09/01/23 13:08 09/01/23 13:08 09/01/23 13:08 09/01/23 13:08 09/01/23 13:08 Pain Score Most Recent Pain Score: Most Recent Pain Score Pain Level 0 09/01/23 13:08 Assessment Mental Status: Awake (Alert & Oriented to Patient Baseline) Airway and Respiratory Function: Patent airway with normal (patient baseline) respiratory exam Cardiovascular Function: Hemodynamically Stable Hydration Status: Adequately Hydrated Nausea & Vomiting: No Nausea or Vomiting Pain: Pt. Denies Any Pain Peripheral Nerve Block: Patient did not receive a nerve block
== END 2023-09-01 13:31 | disposition home or self-care (01) ==
LOC: SUR 09:51
PROVIDERS: PCP Family Medicine; Visit Provider Ophthalmology
PROC: (CPT 66984; principal; 2023-09-01 12:00)
DX: H25.012 Cortical age-related cataract, left eye (principal); H25.042 Posterior subcapsular polar age-related cataract, left eye; H25.12 Age-related nuclear cataract, left eye; E66.9 Obesity, unspecified; I10 Essential (primary) hypertension; K21.9 Gastro-esophageal reflux disease without esophagitis; K91.89 Other postprocedural complications and disorders of digestive system
CPT/HCPCS: 66984; 00123; V2632; J2003

== ENCOUNTER 2023-09-15 07:16 | Day surgery (SDC) | payer MEDICARE, SELFPAY ==
[2023-09-15 07:25] VITALS: BP 133/80; PULSE 65; RESP 16; TEMP 36.7; O2SAT 95
--- NOTE | 2023-09-15 07:36 | W.ANESPRE ---
General Info Date of Service Date Performed: 09/15/23 Height: 5 ft 10 in Weight: 97.8 kg Body Mass Index (BMI): 30.9 Surgical Procedure: Operation Date: 09/15/23 08:25 Proposed Procedure Side Surgeon p Cataract Extraction with IOL Implant Right Nikolay Burris MD Meds Allergies and Home Medications Allergies Allergy/AdvReac Type Severity Reaction Status Date / Time adhesive Allergy Intermediate blisters Verified 09/15/23 07:37 atorvastatin Allergy Intermediate .chest Verified 09/15/23 07:37 pain/diaphroresis Home Medication Medication Instructions Recorded metformin 1,000 mg tablet 1,000 mg PO BID 11/27/17 (Glucophage) gabapentin 800 mg tablet 800 mg PO TID 07/02/20 glipizide 10 mg tablet, extended 10 mg PO BID 07/02/20 release 24 hr pantoprazole 40 mg tablet,delayed 40 mg PO BID 07/02/20 release venlafaxine 225 mg tablet,extended 225 mg PO DAILY 07/02/20 release 24 hr diclofenac sodium 1 % topical gel 2 g topical QID #50 grams 11/13/20 (Voltaren Arthritis Pain) acetaminophen 500 mg tablet 1,000 mg PO Q6H PRN 10/26/21 clotrimazole 1 % topical cream 1 applic topical BID 10/26/21 dulaglutide 1.5 mg/0.5 mL 1.5 mg subcut QWEEK 10/26/21 subcutaneous pen injector (Trulicity) tamsulosin 0.4 mg capsule (Flomax) 0.8 mg (2 x 0.4 mg) PO HS #60 caps 09/14/23 Current Visit Medications: Current Medications Generic Name Dose Route Start Last Admin Trade Name Freq PRN Reason Stop Dose Admin Acetaminophen 1,000 mg 09/15/23 06:00 Acetaminophen 500 Mg Tab PO 10/15/23 05:59 Q4H PRN PRN Balanced Salt Solution 500 ml 09/15/23 06:00 Balanced Salt Soln.-Plus 500 Ml Bag OP 10/15/23 05:59 DIRECTED VINCENT Miscellaneous Medication 0 ml 09/15/23 06:00 Prednisolone 1%, Moxifloxacin 0.5%, Bromfenac 0.09% 5ml Btl OD 10/15/23 05:59 DIRECTED VINCENT Miscellaneous Medication 0 ml 09/15/23 06:00 09/15/23 07:29 Tropicam./Phenyleph. (1/2.5%) 10 Ml Btl OD 10/15/23 05:59 1 drp DIRECTED VINCENT Administration Tetracaine HCl 0 ml 09/15/23 06:00 Tetracaine 0.5% 4 Ml Btl OD 10/15/23 05:59 DIRECTED VINCENT PFSH Active Problems Active Problems: Problem Status Onset Code Posterior subcapsular age-related cataract, right eye H25.041 Cortical age-related cataract, right eye H25.011 Nuclear age-related cataract, right eye H25.11 Cortical age-related cataract, left eye H25.012 Posterior subcapsular age-related cataract of left eye H25.042 Nuclear age-related cataract, left eye H25.12 Peyronie's disease N48.6 Memory impairment R41.3 Osteoarthritis of knees, bilateral M17.0 Peroneal tendinitis M76.70 Mass of parotid gland K11.8 Closed fracture of finger of left hand 09/29/21 S62.609A Hiatal hernia K44.9 Foot pain, right M79.671 Cellulitis of foot, right L03.115 Other sprain of right shoulder joint, initial encounter S43.491A Fall W19.XXXA SOB (shortness of breath) R06.02 Shortness of breath at rest R06.02 Weakness with dizziness R53.1, R42 Anastomotic stricture of gastrojejunostomy K91.89 Diabetes mellitus type II, uncontrolled E11.65 S/P gastric bypass Z98.84 Liver cirrhosis secondary to nonalcoholic steatohepatitis (HERR) K75.81, K74.60 Degenerative cervical spinal stenosis 12/23/14 M48.02 Hyperlipidemia 05/16/13 E78.5 Obesity (BMI 35.0-39.9 without comorbidity) E66.9 Hypertension I10 GERD (gastroesophageal reflux disease) K21.9 Dysphagia R13.10 Chest pain R07.9 Medical History Medical History GERD (gastroesophageal reflux disease) Alcoholic cirrhosis of liver without ascites Non-insulin dependent type 2 diabetes mellitus Dementia Per pt. states he still signs for himself Low back pain Chest pain Per pt. this was related to when he had gastric bypass he had scarring over his esophagus, and it wasn't cardiac in nature Elevated bilirubin Abnormality of penis (11/18/14) Anxiety (07/16/14) Benign neoplasm of colon (08/15/11) Depression (07/16/14) Erectile dysfunction (06/19/14) Sensorineural hearing loss, bilateral (01/06/17) BPH (benign prostatic hyperplasia) Surgical History Surgical History (Updated 09/15/23 @ 07:33 by Marcela Rasmussen RN) Hx of cholecystectomy 09/15/23 pt denies he has had a cholecyctectomy. He reports he has had a gastric bypass. Mayur Franco RN Hx of total knee replacement Bilateral. History of colonoscopy (~10/30/20) History of esophagogastroduodenoscopy (EGD) (~08/13/21) 10/30/20 H/O gastric bypass 2009 bunionectomy (07/18/14) Left Dr Márquez Rotator Cuff Repair Repair, ACL Repair of inguinal hernia Tobacco Smoking/Tobacco Use Status: Former Tobacco Use Alcohol Alcohol Intake: former Substance Use Substance use: Never Substance use type: does not use Vital Signs and Lab Results Vital Signs Most Recent Vital Signs in EMR: Most Recent Vital Signs Temp Pulse Resp BP Pulse Ox 36.7 C 65 16 133/80 95 09/15/23 07:25 09/15/23 07:25 09/15/23 07:25 09/15/23 07:25 09/15/23 07:25 Point of Care Results Point of Care Results: Finger Stick Blood Glucose 198 09/15/23 07:26 Lab Results Blood Type / Crossmatch: No Data to Display Complete Blood Count: No Data to Display Complete Metabolic Panel: Sodium 138 mmol/L (136-145) 08/17/23 09:05 Potassium 4.4 mmol/L (3.5-5.1) 08/17/23 09:05 Chloride 101 mmol/L (98-107) 08/17/23 09:05 Carbon Dioxide 25.0 mmol/L (21.0-32.0) 08/17/23 09:05 BUN 17 mg/dL (7-18) 08/17/23 09:05 Creatinine 1.0 mg/dL (0.70-1.30) 08/17/23 09:05 Est GFR (CKD-EPI 2020) 83.01 (mL/min/1.73m2) 08/17/23 09:05 Calcium 9.6 mg/dL (8.5-10.1) 08/17/23 09:05 Glucose 202 mg/dL (74-106) H 08/17/23 09:05 Hemoglobin A1c 7.2 % (<5.7) H 08/17/23 09:05 Liver Function Panel: No Data to Display Coagulation Panel: No Data to Display Cardiac Panel: No Data to Display Arterial Blood Gas: No Data to Display Venous Blood Gas: No Data to Display Pancreas Panel: No Data to Display Thyroid Panel: No Data to Display Infectious Disease: No Data to Display Blood Cultures: No Data to Display Toxicology Panel: No Data to Display Imaging and Studies Imaging and Studies Study information below may be from another EMR and interpreted by another provider. Please see original notes in EMR for more complete details. EKG Summary: DATE/TIME OF SERVICE: 08/19/20 Conclusion Sinus rhythm...normal P axis, V-rate 60- 99 Stress Test Summary: Date of study: 11/11/2016 Impressions: Normal perfusion by Tc99m Sestamibi Imaging. Echocardiogram Summary: Date of study: 11/29/2016 Summary: 1. Left ventricle: The cavity size was normal. There was mild asymmetric hypertrophy of the septum. Systolic function was normal. The estimated ejection fraction was 55-60%. Wall motion was normal; there were no regional wall motion abnormalities. 2. Mitral valve: There was mild regurgitation. 3. Right ventricle: The cavity size was normal. Wall thickness was normal. Systolic function was normal. 4. Pulmonary arteries: Pulmonary systolic pressure was increased, in the range of 35mm Hg to 40mm Hg. Pulmonary Function Summary: Date of service: 08/03/20 Time of Service: 08:03 Pulmonary Function Test Result Interpretation Spirometry: Shows no evidence of obstructive airways disease, no bronchodilator response Lung Volumes: No evidence of restriction Diffusion Capacity: Mildly reduced, this is normal when corrected to alveolar volume. This also represents a somewhat suboptimal patient effort Airway Pressure: Normal Impression Overall, normal pulmonary function study the slightly low diffusion capacity is likely due to suboptimal patient effort for that maneuver when the study was compared to previous 1 from 05/08/2017 diffusion capacity is slightly lower but is stable when corrected to alveolar volume FVC had asked 680 cc decline, FEV1 had declined by 560 cc both pre and postbronchodilator spirometry efforts were poor Clinical Correlation therefore is recommended. Anesthesia Assessment and Plan Anesthesia History Personal History: No History of Anesthesia Complications Family History: No Family History of Anesthesia Complications Exercise Tolerance Exercise Tolerance: Metabolic Equivalents<4 Cardiac & Pulmonary Exam Cardiac Exam: Normal S1/S2 Heart Sounds Pulmonary Exam: Clear Bilateral Breath Sounds Implantable Cardiac Device Does patient have a Pacemaker or an ICD?: No Airway Exam Known Difficult Airway: No Mallampati Class: 3 Mouth Opening: Normal (> 3cm) Thyromental Distance: Less than 3 cm Neck Range of Motion: Full ROM Neck Circumference: Normal Teeth Condition: Normal Dentition ASA Classification ASA Score: ASA 3 Emergency Case?: No NPO Status NPO Status: NPO Clears >2 hours, Solids >8 hours Anesthesia Plan Resuscitation Status: Full Code Anesthesia Technique: MAC Anesthesia Airway Planned: Natural Airway Monitors Used: Standard Monitors
[2023-09-15 07:37] VITALS: BMI 30.9
[2023-09-15] MEDS: Lidocaine 1% Pres-Free 5 ML VIAL (08:34)
[2023-09-15] MEDS: Povidone-Iodine Ophth 30 ML BTL (08:35)
[2023-09-15] MEDS: Duovisc Viscoelastic System EACH 1 EACH (08:35)
[2023-09-15] MEDS: Balanced Salt Soln.-PLUS 500 ML BAG OP (08:36)
[2023-09-15] MEDS: Tetracaine 0.5% 4 ML BTL OD (08:37)
[2023-09-15 08:47] VITALS: BP 133/75; PULSE 65; RESP 16; TEMP 36.5; O2SAT 96
--- NOTE | 2023-09-15 08:50 | ROE_ITS ---
Date of service: 09/15/23 Time of Service: 08:50 Operative Note Operative Note DATE OF PROCEDURE: 09/15/23 PRE-OP DIAGNOSIS: Nuclear/cortical/posterior subcapsular cataract, right eye POST-OP DIAGNOSIS: same PROCEDURE: Cataract extraction using phacoemulsification with intraocular lens implant, right eye SURGEON: Nikolay Burris ANESTHESIA TYPE: Local By Surgeon and MAC Refer to Anesthesia Record ESTIMATED BLOOD LOSS: 0 PATHOLOGY: none sent COMPLICATIONS: None Patient was transported to: same day Patient's condition: stable Implants: Ge Clareon [id number] Indications: Progressive decreased vision due to cataract, right eye Procedure Description: CATARACT SURGERY OPERATIVE REPORT PREOPERATIVE DIAGNOSIS: Nuclear/cortical/posterior subcapsular cataract, right eye POSTOPERATIVE DIAGNOSIS: Same OPERATION: Cataract extraction using phacoemulsification with posterior chamber intraocular lens implant, right eye. IOL: IOL Chain Mender/Model: Ge Clareon [id number] IOL Power: + 20.0 diopters IOL Serial Number: [id number] Optic Diameter: 6.0mm Haptic/Overall Diameter: 13.0mm PHACO INFO: Ge Thinkglueurion Vision System with OZil and Active Fluidics Cumulative Dispersed Energy (CDE): 10.0 to seconds SURGEON: Nikolay Burris MD, LYNDSEY ANESTHESIA: Monitored Anesthesia Care (MAC), with local sub-tenon's anesthetic infiltration COMPLICATIONS: None SPECIMENS: None INDICATIONS FOR PROCEDURE: The patient is a 67-year-old male with history of diminished visual acuity in both eyes secondary to the development of nuclear/cortical/posterior subcapsular cataract. He is significantly symptomatic that he desires cataract surgery and attempt to improve and maximize his vision. See office notes for detailed information. PROCEDURE: The correct surgical eye was identified and marked as the right eye and the pupil was dilated in the preoperative area using mydriatics and cycloplegics. The dilated pupil size was 7.0 mm. The patient elected to proceed without oral sedation. The patient was brought to the operating room where cardiopulmonary monitoring was instituted and surgical time-out was performed, confirming the correct operative eye and IOL power. Topical anesthesia was administered and ophthalmic povidone-iodine 5% was instilled into the conjunctival fornices. The elodia-ocular area was prepped with Betadine 10% solution and draped in the usual sterile fashion for intraocular surgery, including an aperture drape. A Tegaderm transparent film dressing was cut in half and used to cover the lashes and lid margins. Care was taken to sequester the lashes and lid margins under the Tegaderm dressing. A lid speculum was placed between the lids of the operative eye and the [employer] operating microscope was maneuvered into position. Luc scissors were then used to make a conjunctival buttonhole approximately 6mm posterior to the limbus in the inferonasal quadrant. Blunt dissection was carried out to expose bare sclera, and a blunt-tipped sub-tenon?s anesthesia cannula was introduced and passed posteriorly along the globe where non- preserved plain lidocaine was injected into posterior sub-Tenon?s space. A sideport knife was used to make a paracentesis port. Intraocular phenylephrine/lidocaine was injected into the anterior chamber. The anterior chamber was then filled with viscoelastic. A keratome knife was used to construct a two--plane clear corneal tunnel extending 2.0mm into clear cornea. A flap was raised on the anterior capsule and capsulorhexis forceps were used to complete a continuous curvilinear capsulorhexis of 5.0 mm. Balanced salt solution was then used to perform cortical cleaving hydrodissection and nuclear hydrodelineation until the lens could be freely rotated within the capsular bag. The lens nucleus was then disassembled and removed within the capsular bag and iris plane using phacoemulsification. Residual cortical material was removed using the I/A handpiece. The posterior capsule was carefully polished to remove as much residual lens epithelial cells as safely possible. The capsular bag was then inflated and the anterior chamber deepened with cohesive viscoelastic. The lens implant described above was inserted into the capsular bag using the Ge Autonome Injector. A Kuglen hook was used to dial the IOL into position. Residual viscoelastic was then removed first from posterior to the IOL, then from the anterior chamber using the I/A handpiece. The lens implant was noted to center nicely within the capsular bag. The incisions were stromally hydrated, and the anterior chamber was reformed using BSS. Then 0.5cc of moxifloxacin 1.0mg/ml were injected into the capsular bag and anterior chamber. The incisions were checked with a Weck spear and found to be secure. Several drops of ophthalmic povidone-iodine 5% were then applied to the eye followed by two drops of combination steroid/NSAID/antibiotic solution. The drapes were removed and a clear plastic protective eye shield was placed over the eye. The patient was then returned to Same Day Surgery in stable condition.
--- NOTE | 2023-09-15 08:50 | W.PM.DSUDISC ---
Date of service: 09/15/23 Time of Service: 08:50 Discharge Plan Disposition Patient Disposition: Home Discharge Details Attending Provider: Nikolay Burris Primary Care Provider: Yung Horn Home Meds and New Rx's Prescriptions: No Action Trulicity 1.5 mg/0.5 mL pen injector 1.5 mg subcut QWEEK acetaminophen 500 mg tablet 1,000 mg PO Q6H PRN clotrimazole 1 % cream 1 applic topical BID tamsulosin [Flomax] 0.4 mg capsule 0.8 mg PO HS Qty: 60 0RF metformin [Glucophage] 1,000 MG tablet 1,000 mg PO BID diclofenac sodium [Voltaren Arthritis Pain] 1 % gel 2 g topical QID Qty: 50 0RF Rx Instructions: apply to single elbow, wrist or hand; for hand includes palm/fingers/back of hand glipizide 10 mg tablet extended release 24hr 10 mg PO BID Patient Comments: TK 2 TS PO D FOR BS gabapentin 800 mg tablet 800 mg PO TID Patient Comments: TAKE 1 TABLET BY MOUTH THREE TIMES DAILY FOR PAIN pantoprazole 40 mg tablet,delayed release (DR/EC) 40 mg PO BID Patient Comments: TK 1 T PO BID venlafaxine 225 mg tablet extended release 24hr 225 mg PO DAILY Patient Comments: TAKE 1 TABLET BY MOUTH EVERY DAY Discharge Instructions Stand Alone Forms: DSU Post-Op Cataract, Cheyanne Hu (DSU) Discharge Orders Discharge Orders: Discharge Order (Routine); Ordered 09/15/23 Ordered By: Nikolay Burris DS: Diagnosis Discharge Diagnosis (1) Posterior subcapsular age-related cataract, right eye: Status: Resolved (2) Cortical age-related cataract, right eye: Status: Resolved (3) Nuclear age-related cataract, right eye: Status: Resolved
--- NOTE | 2023-09-15 09:02 | W.ANESPOSTOP ---
Postoperative Evaluation Date, Time and Location Date Performed: 09/15/23 Time Performed: 09:03 Patient Location: Day Surgery Unit Vital Signs Most Recent Imported Vital Signs: Most Recent Vital Signs Temp Pulse Resp BP Pulse Ox 36.5 C 65 16 133/75 96 09/15/23 08:47 09/15/23 08:47 09/15/23 08:47 09/15/23 08:47 09/15/23 08:47 Pain Score Most Recent Pain Score: Most Recent Pain Score Pain Level 0 09/15/23 08:47 Assessment Mental Status: Awake (Alert & Oriented to Patient Baseline) Airway and Respiratory Function: Patent airway with normal (patient baseline) respiratory exam Cardiovascular Function: Hemodynamically Stable Hydration Status: Adequately Hydrated Nausea & Vomiting: No Nausea or Vomiting Pain: Pt. Denies Any Pain Peripheral Nerve Block: Patient did not receive a nerve block
== END 2023-09-15 09:18 | disposition home or self-care (01) ==
LOC: SUR 07:16
PROVIDERS: PCP Family Medicine; Visit Provider Ophthalmology
PROC: (CPT 66984; principal; 2023-09-15 08:15)
DX: H25.041 Posterior subcapsular polar age-related cataract, right eye (principal); H25.011 Cortical age-related cataract, right eye; K21.9 Gastro-esophageal reflux disease without esophagitis; I10 Essential (primary) hypertension; R13.10 Dysphagia, unspecified
CPT/HCPCS: 66984; 00123; V2632; J2003

== ENCOUNTER → 2023-09-27 13:04 | Outpatient (BNVA) | payer MEDICARE, SELFPAY | PROVIDERS: PCP Family Medicine; Referring Provider Family Medicine; Visit Provider Nurse Practitioner Gerontology | DX: N52.9 Male erectile dysfunction, unspecified (principal); N40.0 Benign prostatic hyperplasia without lower urinary tract symptoms; T83.490A Other mechanical complication of implanted penile prosthesis, initial encounter | CPT/HCPCS: 51798; 99213 ==

== ENCOUNTER 2024-01-09 10:46 | Emergency (ER) | payer MEDICARE, SELFPAY ==
--- NOTE | 2024-01-09 10:45 | RT.EKG_ITS ---
APPROVED REPORT Exam: Resting ECG Reason for Exam: SOB Patient Location: E HR:85 bpm ECG Measurements Heart Rate 85 AXIS TN 148 P 30 QRSd 98 QRS 1 QT 352 T 42 QTc 418 Conclusion Sinus rhythm 85 no stemi
[2024-01-09 10:48] VITALS: BP 147/98; PULSE 88; RESP 18; TEMP 36.4; O2SAT 97
--- OUTSIDE RECORDS SUMMARY | 2024-01-09 10:58 | XMS_ITS | Continuity of Care Document ---
Author Name Unknown Organization [facility] Address [address] [place] [address] Care Team Providers Care Hvac Mechanic Name Role Phone Elizabeth Horn Primary Care Physician [phone] Encounter [facility] Date(s): 12/12/23 - 12/12/[address] [address] Encounter Diagnosis Dental infection(Discharge Diagnosis) - 12/13/23 Discharge Disposition: Home or Self Care Attending Physician: Volodymyr Morales MD Admitting Physician: Volodymyr Morales MD Allergies, Adverse Reactions, Alerts Substance Reaction Severity Status ADHESIVE TAPE Unknown Active atorvastatin Unknown Active Assessment and Plan Extracted from: Title:ED Provider Note Author:Volodymyr Morales MD Date:12/13/23 Assessment/Plan 1.??Dental infection??K04.7 Orders: amoxicillin-clavulanate 875 mg-125 mg oral tablet, 1 tab, Oral, Tab, every 12 hr, Antibiotic Indication Dental infection, treatment, First Dose: 12/12/23 22:00:00 EDT, STAT amoxicillin-clavulanate 875 mg-125 mg oral tablet, 1 tab, Oral, every 12 hr, X 7 days, # 14 tab, 0 Refill(s), 12/19/23 22:02:00 EDT, Pharmacy: [facility] #[id number], 178, cm, 06/29/23 11:31:00 EST, Height, 98, kg, 06/29/23 11:35:00 EST, Weight Dosing Discharge Patient, 12/12/23 22:02:00 EDT, Home Independently, Constant Indicator Patient Education Dental Dry Socket Follow Up With When Contact Information Follow up with primary care provider Within 1 to 2 days Additional Instructions: You been seen in the emergency department and no emergent medical condition has been identified. ??It is recommended that you follow-up with your primary care provider within the next??48 hours. ??If your condition worsens or you are unable to??arrange for appropriate follow-up please??reach out to the emergency department by phone or return to the emergency department for repeat evaluation. Immunizations Given and Recorded Vaccine Date Status [...] mg-125 mg oral tablet 1 tab, Oral, every 12 hr, X 7 days, # 14 tab, 0 Refill(s), 12/19/23 9:02:00 PM CDT, Pharmacy: [facility] #[id number], 178, cm, 06/29/23 11:31:00 EST, Height, 98, kg, 06/29/23 11:35:00 EST, WeightDosing Start Date: 12/12/23 Stop Date: 12/19/23 Status: Ordered aspirin 81 mg oral delayed [...] severe, # 30 tab, 0 Refill(s), Pharmacy: [id number], 178, cm, 04/22/22 6:28:00 EDT, [...] Most recent to oldest [Reference Range]: 1 Temperature Temporal Artery [36-38 Deg C ] 36.7 Deg C (12/12/23 9:07 PM) Heart Rate Monitored [60-100 bpm] 81 bpm (12/12/23 9:07 PM) Respiratory Rate [12-24 br/min] 20 br/mi n (12/12/23 9:07 PM) Blood Pressure [90-140/60-90 mmHg] 142/9 2mmHg *HI* (12/12/23 9:07 PM) Mean Arterial Pressure, Cuff [65-140 mmH g] 109 mmHg (12/12/23 9:07 PM) Social History Social History Type Response Tobacco Former tobacco user Tobacco Use:. Sex Male Implantable Device List Procedure Provider Procedure Date Device Type Site Gamma Nail Long Santiago Cornell MD 04/22/22 Non Biolo gical Hip R Device Identifier Serial Number Lot or Batch Number Manufacturing Date Expiration Date Distinct Identification Code MRI Safety Implantable Status Assigning Authority Unknown Unknown [id number] Unknown 10/11/30 Unknown Unknown Active Unknown Unknown Unknown [id number] Unknown 07/26/31 Unknown Unknown Active Unknown Unknown Unknown [id number] Unknown 01/05/25 Unknown Unknown Active Unk nown Unknown Unknown [id number] Unknown 07/08/24 Unknown Unknown Active Un known Unknown Unknown [id number] Unknown 01/05/23 Unknown Unknown Active Unk nown Hospital Discharge Instructions Patient Education 12/12/2023 21:03:44 Dental Dry Socket Dental Dry Socket A dry socket is a condition that can occur after a tooth is pulled (extracted). After an extraction, blood fills in the hole (socket) where the tooth had been. Normally, this blood thickens (clots) and the blood clot protects the bone and nerves underneath until the gums grow over the open socket. A dry socket occurs when a blood clot does not properly form. It also occurs when the clot becomes dislodged or breaks up into parts. Without the blood clot, the bone and nerves are exposed to air, food, liquid, or anything else that enters the mouth. This can be very painful. What are the causes? This condition may be caused by: ??? Blood not filling up the socket properly. This is more likely to occur following a difficult extraction but can occur following a simple extraction. During any extraction procedure, the force required to remove the tooth may close off the surrounding blood vessels in the wall of the socket. This decreased flow of blood to the socket floyd increases the likelihood of a dry socket occurring. ??? Anything that can dislodge a blood clot that is forming. For example, forceful spitting or sucking through a straw can pull a blood clot out of the socket. ??? Anything that can decrease the quality of the clot. Dry socket occurs more frequently in smokers than in nonsmokers. What increases the risk? The following factors may make you more likely to develop this condition: ??? Having lower teeth extracted. ??? Having wisdom teeth extracted. ??? Smoking. ??? Drinking alcohol. ??? Being female. ??? Having poor oral hygiene. ??? Having gum disease or an oral bacterial infection. ??? Taking control pills. What are the signs or symptoms? Symptoms of this condition include: ??? Severe, constant pain in the jaw or ear that is dull and throbbing. The pain often begins 2???3days after your tooth was extracted. The pain may last about a week. ??? Bad-smelling breath and a bad taste in your mouth. ??? Exposed white bone in the tooth socket. How is this diagnosed? This condition is diagnosed based on your symptoms and an examination of the inside of your mouth. Your dental care provider will check to see if you have a blood clot in your tooth socket or if yourbone is visible. Although a dry socket cannot be diagnosed based on an imaging test, the exam may include X-rays of the area. These tests are done to rule out dental or health issues, such as a bone infection (osteomyelitis), fractured jaws, or a problem with nearby teeth. How is this treated? This condition will clear up on its own after 1???2 weeks unless an infection occurs. However, you may get treatment for pain, which may include: ??? Soaking a gauze pad in a topical pain medicine and then placing it inside your tooth socket. This pad (dressing) may need to be replaced every 1???3 days until your pain eases. ??? Taking NSAIDs such as ibuprofen. ??? Taking a prescription pain medicine, if NSAIDs do not relieve your pain. Treatment may also include antibiotic medicine. Follow these instructions at home: Medicines ??? Take vekb-zef-ozaubyl and prescription medicines only as told by your dental care provider. ??? If you were prescribed an antibiotic medicine, take it as told by your dental care provider. Donot stop taking the antibiotic even if you start to feel better. ??? Ask your dental care provider if the medicine prescribed to you: ??? Requires you to avoid driving or using machinery. ??? Can cause constipation. You may need to take these actions to prevent or treat constipation: ??? Drink enough fluid to keep your urine pale yellow. ??? Take shty-ykn-iegygax or prescription medicines. ??? Eat foods that are high in fiber, such as beans, whole grains, and fresh fruits and vegetables. ??? Limit foods that are high in fat and processed sugars, such as fried or sweet foods. Eating and drinking ??? Do not drink through a straw until your dental care provider says it is okay. ??? Eat cool, soft-textured foods as told by your dental care provider. ??? Avoid hot drinks and spicy foods until your mouth has healed. ??? Do not drink carbonated beverages or alcohol. General instructions ??? [place] and floss your teeth every morning and night. Good oral hygiene is important. ??? Avoid rinsing your mouth and using mouthwash during the healing period, as told by your dental care provider. ??? Do not use any products that contain nicotine or tobacco. These products include cigarettes, chewing tobacco, and vaping devices, such as e-cigarettes. If you need help quitting, ask your dental care provider. ??? Keep all follow-up visits. This is important. Contact a dental care provider if: ??? You have pain that is not helped by medicine. ??? You have a fever. This could be a sign of infection. ??? Your mouth becomes tender and swollen. This could be a sign of infection. Get help right away if: ??? You have uncontrolled bleeding, very noticeable swelling, or severe pain. ??? You have difficulty swallowing. ??? You cannot open your mouth. Summary ??? Dry socket is a condition that can occur after a tooth is extracted. The bone and nerves becomeexposed to air, food, liquid, or anything else that enters the mouth. This can be very painful. ??? This condition will clear up on its own after 1???2 weeks unless an infection occurs. You may get treatment for pain. You may also get antibiotic medicine. ??? Take sewv-zwc-jdhhihf and prescription medicines only as told by your dental care provider. ??? If you were prescribed an antibiotic medicine, take it as told by your dental care provider. Donot stop taking the antibiotic even if you start to feel better. ??? Get help right away if you have uncontrolled bleeding, very noticeable swelling, or severe pain. This information is not intended to replace advice given to you by your health care provider. Make sure you discuss any questions you have with your health care provider. Document Revised: 08/25/2021 Document Reviewed: 08/25/2021 [employer] Patient Education ?? 2022 [employer]. Follow Up Care 12/12/2023 20:12:50 With:Follow up with primary care provider Address: When:1 to 2 days Comments:You been seen in the emergency department and no emergent medical condition has been identified. ??It is recommended that you follow-up with your primary care provider within the next??48 hours. ??Ifyour condition worsens or you are unable to??arrange for appropriate follow-up please??reach out tothe emergency department by phone or return to the emergency department for repeat evaluation. Physician Emergency department Note * Volodymyr Morales MD: PERFORM Event Display: ED Note Physician Authored Date: [id number] ELIZABETH VAZQUEZ :1955 Age:68 years Sex:Male Visit Date:12/12/2023 Primary Care Physician: Elizabeth Horn MD Basic Information Time Seen: Volodymyr Morales MD / 12/12/2023 21:34 Chief Complaint pt arrives ambulatory and endorses s/p tooth extration on monday, has been unable to obtain ABT that was prescribed. pt endorses needs for ABT and cannot recall name of ABT needed History Of Present Illness: Patient with recent dental extraction now complains of pain around the site of extraction. ??He is a diabetic but he does not smoke.?? No trismus??no floor the mouth tenderness no submandibular tenderness no fevers no chills Review of Systems: CONST: Negative for fever, body aches and chills. ?? HENT: Negative for neck pain/stiffness, headache, congestion, sore throat, swelling. ?? EYES: Negative for discharge/pain or vision changes. ? Physical Exam Vitals & Measurements T:??36.7?C ??(Temporal Artery)?? HR:??81??(Monitored)?? RR:??20?? BP:??142/92?? SpO2:??96%?? Gen: A&O NAD ?? HEENT: Extraction site with tenderness around the base. ??No submandibular tenderness no floor the mouth tenderness ?? Neck: Supple, full range of motion, no observable masses, No meningeal sign. ?? Lungs: No Respiratory distress. ?? CV: RRR, no edema. ?? Abdomen: Soft, nondistended, No rebound tenderness. ?? MSK: No joint swelling, no redness. ?? Skin: No rashes, petechiae, lesions. Normal color per patient. ?? Neuro: Normal Gait, Grossly intact. ?? Psych: Appropriate for situation. Medical Decision Making: Do not suspect a dry socket at this time. ??Possibly??periextraction and abscess. ??Encouraged??peroxyl rinses and oral antibiotics and call his dentist in the morning. Procedure No Qualifying Data Assessment/Plan 1.??Dental infection??K04.7 Orders: amoxicillin-clavulanate 875 mg-125 mg oral tablet, 1 tab, Oral, Tab, every 12 hr, Antibiotic Indication Dental infection, treatment, First Dose: 12/12/23 22:00:00 EDT, STAT amoxicillin-clavulanate 875 mg-125 mg oral tablet, 1 tab, Oral, every 12 hr, X 7 days, # 14 tab, 0 Refill(s), 12/19/23 22:02:00 EDT, Pharmacy: [facility] #[id number], 178, cm, 06/29/23 11:31:00 EST, Height, 98, kg, 06/29/23 11:35:00 EST, Weight Dosing Discharge Patient, 12/12/23 22:02:00 EDT, Home Independently, Constant Indicator Patient Education Dental Dry Socket Follow Up With When Contact Information Follow up with primary care provider Within 1 to 2 days Additional Instructions: You been seen in the emergency department and no emergent medical condition has been identified. ??It is recommended that you follow-up with your primary care provider withinthe next??48 hours. ??If your condition worsens or you are unable to??arrange for appropriate follow-up please??reach out to the emergency department by phone or return to the emergency department for repeat evaluation. Medication Reconciliation New Prescription amoxicillin-clavulanate (amoxicillin-clavulanate 875 mg-125 mg oral tablet)1 tab Oral (given by mouth) every 12 hours for 7 Days. Refills: 0. ?? Unchanged acetaminophen (acetaminophen 500 mg oral tablet)2 [...] 2 times a day. ?? polyethylene glycol [id number] Gram Oral (given by mouth) every day [...] bilateral (02/22/2018)???Gastric bypass (10/08/2009) Medication Administration Given amoxicillin-clavulanate 875 mg-125 mg oral tablet, 1 tab, Oral Allergies ADHESIVE TAPE atorvastatin Social History Alcohol Never Electronic Cigarette/Vaping Electronic Cigarette Use: Never. Substance Use Current, Marijuana Tobacco Former tobacco user Tobacco Use:. Family History Alzheimer's disease: Mother. Cancer of colon: Father. Electronically Signed on 12/13/2023 01:56 EDT Volodymyr Morales MD Emergency department Discharge instructions * Volodymyr Morales MD: PERFORM Event Display: ED Discharge Information Authored Date: [id number] ELIZABETH VAZQUEZ :1955 Age:68 years Sex:Male Visit Date:12/12/2023 Primary Care Physician: Elizabeth Horn MD Discharge Instructions We would like to thank you for allowing us to assist you with your healthcare needs. The following includes patient education materials and information regarding your injury/illness. Discharge Vitals Temperature??(Temporal Artery) 98.1 ??F (36.7 ??C) Heart Rate??(Monitored) 81 Respiratory Rate?? 20 Blood Pressure?? 142/92?? SpO2?? 96% Allergies ADHESIVE TAPE atorvastatin What to Do Next You Need to Schedule the Following Appointments Follow Up with??Follow up with primary care provider When:??Within 1 to 2 days Why: You been seen in the emergency department and no emergent medical condition has been identified. ??It is recommended that you follow-up with your primary care provider within the next??48 hours.??If your condition worsens or you are unable to??arrange for appropriate follow-up please??reach out to the emergency department by phone or return to the emergency department for repeat evaluation. You were treated today on an emergency [...] What How Much When Instructions Next Dose New amoxicillin-clavulanate (amoxicillin-clavulanate 875 mg-125 mg oral tablet) 1 tab Oral (given by mouth) Every 12 hours Duration: 7 Days Pickup at [facility] #[id number] Unchanged acetaminophen (acetaminophen 500 mg oral tablet) [...] a total dose of 225mg daily ?? Pharmacy Information [facility] #[id number]: [address] [phone] [employer] Dental Dry Socket A dry socket is a condition that can occur after a tooth is pulled (extracted). After an extraction, blood fills in the hole (socket) where the tooth had been. Normally, this blood thickens (clots) and the blood clot protects the bone and nerves underneath until the gums grow over the open socket. A dry socket occurs when a blood clot does not properly form. It also occurs when the clot becomes dislodged or breaks up into parts. Without the blood clot, the bone and nerves are exposed to air, food, liquid, or anything else that enters the mouth. This can be very painful. What are the causes? This condition may be caused by: ? Blood not filling up the socket properly. This is more likely to occur following a difficult extraction but can occur following a simple extraction. During any extraction procedure, the force required to remove the tooth may close off the surrounding blood vessels in the wall of the socket. This decreased flow of blood to the socket floyd increases the likelihood of a dry socket occurring. ? Anything that can dislodge a blood clot that is forming. For example, forceful spitting or sucking through a straw can pull a blood clot out of the socket. ? Anything that can decrease the quality of the clot. Dry socket occurs more frequently in smokers than in nonsmokers. What increases the risk? The following factors may make you more likely to develop this condition: ? Having lower teeth extracted. ? Having wisdom teeth extracted. ? Smoking. ? Drinking alcohol. ? Being female. ? Having poor oral hygiene. ? Having gum disease or an oral bacterial infection. ? Taking control pills. What are the signs or symptoms? Symptoms of this condition include: ? Severe, constant pain in the jaw or ear that is dull and throbbing. The pain often begins 2???3 days after your tooth was extracted. The pain may last about a week. ? Bad-smelling breath and a bad taste in your mouth. ? Exposed white bone in the tooth socket. How is this diagnosed? This condition is diagnosed based on your symptoms and an examination of the inside of your mouth. Your dental care provider will check to see if you have a blood clot in your tooth socket or if yourbone is visible. Although a dry socket cannot be diagnosed based on an imaging test, the exam may include X-rays of the area. These tests are done to rule out dental or health issues, such as a bone infection (osteomyelitis), fractured jaws, or a problem with nearby teeth. How is this treated? This condition will clear up on its own after 1???2 weeks unless an infection occurs. However, you may get treatment for pain, which may include: ? Soaking a gauze pad in a topical pain medicine and then placing it inside your tooth socket. This pad (dressing) may need to be replaced every 1???3 days until your pain eases. ? Taking NSAIDs such as ibuprofen. ? Taking a prescription pain medicine, if NSAIDs do not relieve your pain. Treatment may also include antibiotic medicine. Follow these instructions at home: Medicines ? Take apvo-bxs-lxbfyai and prescription medicines only as told by your dental care provider. ? If you were prescribed an antibiotic medicine, take it as told by your dental care provider. Do notstop taking the antibiotic even if you start to feel better. ? Ask your dental care provider if the medicine prescribed to you: ? Requires you to avoid driving or using machinery. ? Can cause constipation. You may need to take these actions to prevent or treat constipation: ? Drink enough fluid to keep your urine pale yellow. ? Take wdbr-zad-qwjckuj or prescription medicines. ? Eat foods that are high in fiber, such as beans, whole grains, and fresh fruits and vegetables. ? Limit foods that are high in fat and processed sugars, such as fried or sweet foods. Eating and drinking ? Do not drink through a straw until your dental care provider says it is okay. ? Eat cool, soft-textured foods as told by your dental care provider. ? Avoid hot drinks and spicy foods until your mouth has healed. ? Do not drink carbonated beverages or alcohol. General instructions ? [place] and floss your teeth every morning and night. Good oral hygiene is important. ? Avoid rinsing your mouth and using mouthwash during the healing period, as told by your dental careprovider. ? Do not use any products that contain nicotine or tobacco. These products include cigarettes, chewing tobacco, and vaping devices, such as e-cigarettes. If you need help quitting, ask your dental careprovider. ? Keep all follow-up visits. This is important. Contact a dental care provider if: ? You have pain that is not helped by medicine. ? You have a fever. This could be a sign of infection. ? Your mouth becomes tender and swollen. This could be a sign of infection. Get help right away if: ? You have uncontrolled bleeding, very noticeable swelling, or severe pain. ? You have difficulty swallowing. ? You cannot open your mouth. Summary ? Dry socket is a condition that can occur after a tooth is extracted. The bone and nerves become exposed to air, food, liquid, or anything else that enters the mouth. This can be very painful. ? This condition will clear up on its own after 1???2 weeks unless an infection occurs. You may get treatment for pain. You may also get antibiotic medicine. ? Take neqy-sdj-qajfqhp and prescription medicines only as told by your dental care provider. ? If you were prescribed an antibiotic medicine, take it as told by your dental care provider. Do notstop taking the antibiotic even if you start to feel better. ? Get help right away if you have uncontrolled bleeding, very noticeable swelling, or severe pain. This information is not intended to replace advice given to you by your health care provider. Make sure you discuss any questions you have with your health care provider. Document Revised: 08/25/2021 Document Reviewed: 08/25/2021 [employer] Patient Education ?? 2022 [employer]. Patient/Safety And Occupational Health Manager Signature Patient Name:ELIZABETH VAZQUEZ I have received this information and my questions have been answered. Patient/Safety And Occupational Health Manager Name: Patient/Safety And Occupational Health Manager Signature: Relationship to Patient: Witness Name/Signature: Date: Electronically Signed on: 12/12/2023 22:04 EDTSigned by:GLENDA Emergency department Note * Keila Baxter M: PERFORM Event Display: ED Notes Authored Date: [id number] Patient Care team information Care Team Personnel Name: Elizabeth Horn MD Position: No Access Member Role: Informed Provider Address: Address: [address] [place] [address]- Care Team Related Persons Name: JENIFFER VAZQUEZ Name: TEETEE VAZQUEZ Address: Home [address], [id number]
--- OUTSIDE RECORDS SUMMARY | 2024-01-09 10:58 | XMS_ITS ---
Author Name Unknown Address [address] [place] [address] [phone] Phone Organization Unknown Address [address] [place] [address] [phone] Phone Care Team Providers Care Operating Engineer Apprentice Name Role Phone DIANA BRIGHT Registered Nurse Unavailable RAYRAY Mckoy Attending Unavailable JAR[facility] Unavailable UNLISTED PROVIDER - REQUESTED Xhandoff Un available Results XR ELBOW RT 3V MIN* - Comple marvin: 03/01/2022 14:57 LOINC: RIGHT ELBOW - 3 VIEWS:No maribell dence of acute fracture. No prominent joint effusion. Small bony excrescence off the lateral epicondyle noted. This may indicate an element of lateral epicondylitis. In addition, on one image there is a small 1 mm ossific density adjacent to the junction between the trochlea and capitellum which may be a small intraarticular loose body. There is no obvious osteochondral defect evident. Dictated by: TODD PIMENTEL MD Transcribed by: JENNIFER 02/25/2210:06 D Wednesday, February 23, 2022 8:00:13 AM [id number] Electronically Reviewed and Signed By: ANGÉLICA PIMENTEL MD 02/25/22 21:55 Copy for: 185 HEALTH INFORMATION MGMT DISCHARGED XR FOREARM 2V RT* - Complete d: 03/01/2022 14:57 LOINC: RIGHT FOREARM - 2 VIEWS:No e vidence of fracture. No osseous lesions. No radiopaque foreign body. Vascular calcification noted. Dictated by: TODD PIMENTEL MD Transcribed by: JENNIFER 02/25/22/10:32 D Wednesday, February 23, 2022 8:01:58 AM [id number] Electronically Reviewed and Signed By: ANGÉLICA PIMENTEL MD 02/25/22 21:55 Copy for: 185 HEALTH INFORMATION MGMT DISCHARGED Social History Type Status Start Date End Date Code Code Syst em Sex Male Vital Signs Vital Sign Value Unit Hayes Value Hayes Unit Date/Time Recent/Initial? Code Code System Body Mass Index 35.87 kg/m2 02/22/2022 16:44 Initial 56591 -5 LOINC Systolic Blood Pressure 143 mm[Hg] 02/22/2022 16:44 Initial 8480- 6 LOINC Diastolic Blood Pressure 82 mm[Hg] 02/22/2022 16:44 Initial 8462- 4 LOINC Body Surface Area 2.37 m2 02/22/2022 16:44 Initial 3140- 1 LOINC Height 177.800 0 cm 70.00 in 02/22/2022 16:44 Initial 8302- 2 LOINC O2 Saturation 96 % 2021 16:44 Initial 35265 -5 LOINC Pulse 68.0 /min 02/22/2022 16:44 Initial 8867- 4 LOINC Respiration 16 /min 02/23/20 16:44 Initial 9279- 1 LOINC Temperature 36.4 Analia 97.5 F 02/23/20 16:44 Initial 8310- 5 LOINC Weight 113.40 kg 250.00 lbs 02/22/2022 16:44 Initial 72318 -7 LOINC Assessment You had the following problems:TYPE 2 DIABETESANXIETY Hospital Discharge Instructions Should you have any questions prior to discharge, please contact a member of your healthcare team. If you have left the hospital and have any questions, please contact your primary care physician. Reason For Referral No Data Found Procedures Procedure Name Date Status Code Code Edilia schroeder Replacement of bilateral knee joints completed 927332567 SNOMEDCT Repair of rotator cuff completed 77192409 SN OMEDCT Problems Problem Start Date Resolved Date Status Code Code System TYPE 2 DIABETES active 32772801 SNOM ED-CT ANXIETY active 16883118 SNOMED-CT Allergies and Adverse Reactions Allergy Substance Reaction Severity Start Date Concern Status Code Code System ADHESIVE Rash (SNOMED-CT: 102933426) Active No Known Drug Allergies Active 221239973 SNOMED-CT Plan of Treatment No Data Found Encounters Encounter Diagnosis Start Date Code Code Sys tem Pain in right elbow 02/22/2022 SNOMED-C T Personal Care Team Section Performer Name Performer Role Active Date Inactive Da te
[2024-01-09 11:01] VITALS: RESP 14
[2024-01-09] MEDS: Aspirin 325 MG TAB PO (11:38)
[2024-01-09 11:41] LABS: Abs Immature Grans 0.01 10^3/uL (0.0-0.06); Absolute Basophil Count 0.02 10^3/uL (0.0-0.2); Absolute Lymphocyte Count 1.19 10^3/uL (1.2-3.4); Absolute Neutrophil Count 3.91 10^3/uL (1.2-6.7); Basophils % 0.3 %; Eosinophils % 3.5 %; HCT 39.9 % (40.0-50.0); HGB 13.5 g/dL (13.5-17.5); Immature Grans % 0.2 %; Lymphocytes % 20.8 %; MCH 29.5 pg (27.0-33.0); MCHC 33.8 % (32.0-36.0); MCV 87 fL (80-95); MPV 9.8 fL (8.0-11.0); Neutrophils % 68.2 %; Platelet Count 167 10^3/uL (130-400); RBC 4.58 10^6/uL (4.36-5.78); RDW 13.4 % (11.8-14.1); RDW-SD 42.4 fL; WBC 5.73 10^3/uL (4.4-10.8)
[2024-01-09] MEDS: Acetaminophen 500 MG TAB 1000 MG PO (11:56)
[2024-01-09 12:05] LABS: ALT 17 U/L (16-63); AST 11 U/L (15-37); Alkaline Phosphatase 86 U/L (46-116); Anion Gap 10.8 mmol/L (3-11); BUN 15 mg/dL (7-18); Bilirubin, Total 0.62 mg/dL (0.2-1.0); CO2 25.2 mmol/L (21.0-32.0); CREATININE 1.1 mg/dL (0.70-1.30); Calcium 9.2 mg/dL (8.5-10.1); Chloride 102 mmol/L (98-107); Estimated GFR 73.58 (mL/min/1.73m2); Glucose 137 mg/dL (74-106); Magnesium 1.4 mg/dL (1.8-2.4); NT-proBNP 27 pg/mL (<300); Potassium 4.9 mmol/L (3.5-5.1); Sodium 138 mmol/L (136-145); Total Protein 7.2 g/dL (6.4-8.2); Troponin I < 50 ng/L (< or =60)
--- NOTE | 2024-01-09 12:06 | DI.RAD_ITS ---
Exam(s) XR PORTABLE CHEST AP EXAM: XR PORTABLE CHEST AP CLINICAL HISTORY: SOB. TECHNIQUE: 2D digital imaging was performed. COMPARISON: CR,XR XR CHEST 2V PA LATERAL from 12/23/2021 FINDINGS: Single AP portable view. Heart size is upper normal. The mediastinum is not widened. No new infiltrates nor pleural effusions. No pulmonary edema. No pneumothorax. IMPRESSION: No acute pulmonary findings on this single AP portable view of the chest. DATA REPOSITORY: RADIATION DOSE DELIVERED:
--- NOTE | 2024-01-09 15:35 | ED.GENADUL_ITS ---
Discharge Plan Disposition Patient Disposition: Home Condition: Stable Discharge Details Clinical Impression: SOB (shortness of breath) Primary Care Provider: Yung Horn ED Provider: Celestine Medrano Home Meds and New Rx's Prescriptions: No Action tamsulosin [Flomax] 0.4 mg capsule 0.8 mg PO HS Qty: 180 3RF Patient Comments: takes in pm Trulicity 1.5 mg/0.5 mL pen injector 1.5 mg subcut QWEEK Patient Comments: every day acetaminophen 500 mg tablet 1,000 mg PO Q6H PRN metformin [Glucophage] 1,000 MG tablet 1,000 mg PO BID diclofenac sodium [Voltaren Arthritis Pain] 1 % gel 2 g topical QID Qty: 50 0RF Rx Instructions: apply to single elbow, wrist or hand; for hand includes palm/fingers/back of hand glipizide 10 mg tablet extended release 24hr 10 mg PO BID Hold Instructions: Changed by Provider Patient Comments: TK 2 TS PO D FOR BS gabapentin 800 mg tablet 800 mg PO TID Patient Comments: TAKE 1 TABLET BY MOUTH THREE TIMES DAILY FOR PAIN pantoprazole 40 mg tablet,delayed release (DR/EC) 40 mg PO BID Patient Comments: TK 1 T PO BID venlafaxine 225 mg tablet extended release 24hr 225 mg PO DAILY Patient Comments: 150 in am 75 at night Discharge Instructions Additional Instructions: Please follow-up with your PCP for further evaluation of your shortness of breath. Return to the emergency department if you develop any chest pain. Discharge Data Discharge Date/Time-TO BE ENTERED AT DEPARTURE: 01/09/24 13:16 HPI General Date/Time Provider Initiated Documentation: 01/09/24 11:23 . Limitations to Documentation: no limitations . Information obtained by: patient . HPI Narrative: 68-year-old gentleman with past medical history arthritis, diabetes, liver cirrhosis obesity, status post gastric bypass, hypertension presents for evaluation shortness of breath. He reports that he has been having symptoms for the last week or 2. Symptoms are constant. Not really associated with chest pain. Does not smoke. Reports prior history of liver disease, but states that this resolved when he stopped drinking. He states it has been several years since he stopped drinking. Denies any cough. Denies any fever or sick contacts. Related Data Home Medications Medication Instructions Recorded Confirmed metformin 1,000 mg tablet 1,000 mg PO BID 11/27/17 01/09/24 (Glucophage) gabapentin 800 mg tablet 800 mg PO TID 07/02/20 01/09/24 glipizide 10 mg tablet, extended 10 mg PO BID 07/02/20 01/09/24 release 24 hr pantoprazole 40 mg tablet,delayed 40 mg PO BID 07/02/20 01/09/24 release venlafaxine 225 mg tablet,extended 225 mg PO DAILY 07/02/20 01/09/24 release 24 hr diclofenac sodium 1 % topical gel 2 g topical QID #50 grams 11/13/20 01/09/24 (Voltaren Arthritis Pain) acetaminophen 500 mg tablet 1,000 mg PO Q6H PRN 10/26/21 01/09/24 dulaglutide 1.5 mg/0.5 mL 1.5 mg subcut QWEEK 10/26/21 01/09/24 subcutaneous pen injector (Trulicity) tamsulosin 0.4 mg capsule (Flomax) 0.8 mg (2 x 0.4 mg) PO HS #180 caps 09/27/23 01/09/24 Previous Rx's Medication Instructions Recorded diclofenac sodium 1 % topical gel 2 g topical QID #50 grams 11/13/20 (Voltaren Arthritis Pain) tamsulosin 0.4 mg capsule (Flomax) 0.8 mg (2 x 0.4 mg) PO HS #180 caps 09/27/23 Allergies Allergy/AdvReac Type Severity Reaction Status Date / Time adhesive Allergy Intermediate blisters Verified 01/09/24 11:05 atorvastatin Allergy Intermediate .chest Verified 01/09/24 11:05 pain/diaphroresis General Stated Complaint: SOB NASIMA: 3 Exam Narrative Exam Narrative: Review of Systems: All systems reviewed & are unremarkable except as noted in HPI and below Well-developed, no acute distress NCAT PERRL, normal conjunctiva RRR no murmur Unlabored respiratory effort clear bilaterally no crackles Nondistended abdomen soft nontender Extremities w/o deformity, no cyanosis, no edema No rashes or lesions. no focal neurologic deficits Appropriate mood and affect Course Vital Signs Vital signs: Vital Signs Temperature 36.4 C L 01/09/24 10:48 Pulse 88 01/09/24 10:48 Respiratory Rate 18 01/09/24 10:48 Blood Pressure 147/98 H 01/09/24 10:48 Pulse Oximetry 97 01/09/24 10:48 Temperature 36.4 C L 01/09/24 10:48 Temperature Source Temporal Artery Scan 01/09/24 10:48 Pulse 88 01/09/24 10:48 Respiratory Rate 14 01/09/24 11:01 Respiratory Effort Short of Breath 01/09/24 11:01 Respiratory Depth Normal 01/09/24 11:01 Blood Pressure 147/98 H 01/09/24 10:48 Blood Pressure Position Sitting 01/09/24 10:59 Pulse Oximetry 97 01/09/24 10:48 Pain Level 5 01/09/24 11:38 Comment Chest pressure 01/09/24 10:59 Lab/Test Results Lab/Test Results: Laboratory Tests Range/Units 01/09/24 01/09/24 11:31 14:15 WBC (4.4-10.8) 10^3/uL 5.73 RBC (4.36-5.78) 10^6/uL 4.58 Hgb (13.5-17.5) g/dL 13.5 Hct (40.0-50.0) % 39.9 L MCV (80-95) fL 87 MCH (27.0-33.0) pg 29.5 MCHC (32.0-36.0) % 33.8 RDW (11.8-14.1) % 13.4 Plt Count (130-400) 10^3/uL 167 MPV (8.0-11.0) fL 9.8 Immature Gran % % 0.2 Neutrophils % % 68.2 Lymphocytes % % 20.8 Monocytes % % 7.0 Eosinophils % % 3.5 Basophils % % 0.3 Nucleated RBC % (0.0-0.3) % 0.0 Absolute Neutrophils (1.2-6.7) 10^3/uL 3.91 Absolute Lymphocytes (1.2-3.4) 10^3/uL 1.19 L Absolute Monocytes (0.1-0.8) 10^3/uL 0.40 Absolute Eosinophils (0.0-0.7) 10^3/uL 0.20 Absolute Basophils (0.0-0.2) 10^3/uL 0.02 Sodium (136-145) mmol/L 138 Potassium (3.5-5.1) mmol/L 4.9 Chloride (98-107) mmol/L 102 Carbon Dioxide (21.0-32.0) mmol/L 25.2 Anion Gap (3-11) mmol/L 10.8 BUN (7-18) mg/dL 15 Creatinine (0.70-1.30) mg/dL 1.1 Est GFR (CKD-EPI 2020) (mL/min/1.73m2) 73.58 Glucose (74-106) mg/dL 137 H Calcium (8.5-10.1) mg/dL 9.2 Magnesium (1.8-2.4) mg/dL 1.4 L Total Bilirubin (0.2-1.0) mg/dL 0.62 AST (15-37) U/L 11 L ALT (16-63) U/L 17 Alkaline Phosphatase (46-116) U/L 86 Troponin I (< or =60) ng/L < 50 Cancelled NT-Pro-B Natriuret Pep (<300) pg/mL 27 Total Protein (6.4-8.2) g/dL 7.2 Albumin (3.4-5.0) g/dL 4.0 Medical Decision Making Emergent evaluation of shortness of breath. Patient is hemodynamically stable, no signs of respiratory distress, abnormal lung sounds or hypoxia. He has no signs of volume overload. He has not really and his EKG does not demonstrate acute ischemic abnormality. Initial differential includes URI, volume overload, CHF, ACS. Plan for lab work, cardiac monitoring and chest x-ray. Lab work reviewed. No leukocytosis or anemia. Electrolytes are without derangement. Normal renal function normal liver function. His cardiac biomarkers are within normal limits. His chest x-ray was reviewed and there is no signs of cardiomegaly, volume overload or signs or abnormality. The patient was observed in the emergency department and I offered a repeat troponin, but the patient declines he would like to go home. He states that he feels fine at this time. I recommended follow-up closely with his PCP so that he can be further evaluated for ongoing shortness of pressure did occur. Quality:SDOH Health Related Social Needs: No Data to Display PFSH All Active Problems Peyronie's disease (Acute) Memory impairment (Acute) Osteoarthritis of knees, bilateral (Acute) Peroneal tendinitis (Acute) Mass of parotid gland (Acute) Closed fracture of finger of left hand (Acute 09/29/21) small finger Hiatal hernia (Chronic) Foot pain, right (Acute) Cellulitis of foot, right (Acute) Other sprain of right shoulder joint, initial encounter (Acute) Fall (Acute) SOB (shortness of breath) (Acute) Shortness of breath at rest (Acute) Weakness with dizziness (Acute) Anastomotic stricture of gastrojejunostomy (Acute) Diabetes mellitus type II, uncontrolled (Chronic) S/P gastric bypass (Chronic) Liver cirrhosis secondary to nonalcoholic steatohepatitis (HERR) (Acute) Degenerative cervical spinal stenosis (Chronic 12/23/14) Hyperlipidemia (Acute 05/16/13) Obesity (BMI 35.0-39.9 without comorbidity) (Acute) Hypertension (Acute) GERD (gastroesophageal reflux disease) (Acute) Dysphagia (Chronic) Chest pain (Acute) Medical History GERD (gastroesophageal reflux disease) Alcoholic cirrhosis of liver without ascites Non-insulin dependent type 2 diabetes mellitus Dementia Per pt. states he still signs for himself Low back pain Chest pain Per pt. this was related to when he had gastric bypass he had scarring over his esophagus, and it wasn't cardiac in nature Elevated bilirubin Abnormality of penis (11/18/14) Anxiety (07/16/14) Benign neoplasm of colon (08/15/11) Depression (07/16/14) Erectile dysfunction (06/19/14) Sensorineural hearing loss, bilateral (01/06/17) BPH (benign prostatic hyperplasia) Surgical History Hx of cholecystectomy 09/15/23 pt denies he has had a cholecyctectomy. He reports he has had a gastric bypass. Mayur Franco RN Hx of total knee replacement Bilateral. History of colonoscopy (~10/30/20) History of esophagogastroduodenoscopy (EGD) (~08/13/21) 10/30/20 H/O gastric bypass 2010 bunionectomy (07/18/14) Left Dr Márquez Rotator Cuff Repair Repair, ACL Repair of inguinal hernia Family History Mother Alzheimer disease Social History Smoking/Tobacco Use Status: Former Tobacco Use Quit Date: 07/10/85 Smoking risk assessment performed?: Yes Alcohol Intake: former Drug use: Never Substance use type: does not use Household members: spouse Housing: house current occupation: retired Current gender identity: male What is your relationship status?: Panel score (0-1 are the most socially isolated patients): 1 Do you feel safe at home: Yes (unable to assess privately) Do you feel safe in your relationship?: Yes
== END 2024-01-09 13:16 | disposition home or self-care (01) ==
PROVIDERS: Emergency Provider Emergency Medicine; PCP Family Medicine
DX: R06.02 Shortness of breath (principal)
CPT/HCPCS: 36415; 80053; 93005; 99283; 71045; 83735; 83880; 84484; 85025; 93010

== ENCOUNTER 2024-01-19 14:47 | Emergency (ER) | payer MEDICARE, SELFPAY ==
--- NOTE | 2024-01-19 14:45 | RT.EKG_ITS ---
APPROVED REPORT Exam: Resting ECG Reason for Exam: Chest pain Patient Location: E HR:79 bpm ECG Measurements Heart Rate 79 AXIS CA 175 P 51 QRSd 97 QRS 7 QT 361 T 56 QTc 415 Conclusion Sinus rhythm...normal P axis, V-rate 60- 99
[2024-01-19 14:49] VITALS: BP 133/74; PULSE 85; RESP 18; TEMP 36.6; O2SAT 98
--- NOTE | 2024-01-19 15:00 | DI.CT_ITS ---
Exam(s) CT CHEST PE ABD PELVIS W EXAM: CT CHEST PE ABD PELVIS W CLINICAL HISTORY: chest pain, dyspnea, upper abdominal pain. TECHNIQUE: Imaging Protocol: Axial CT angiography was performed with multi-slice acquisition and mu lti-planar and/or 3D reconstructions. CONTRAST MATERIAL: Intravenous: Omnipaque 350contrast volume:100 mL COMPARISON: CT CT CHEST PE CTA from 08/20/2020 FINDINGS: CHEST: Tracheobronchial tree: Patent where visualized. Pulmonary parenchyma: Mild dependent atelectatic changes are seen in the lung bases. No focal consol idating infiltrates are seen. No suspicious pulmonary nodules are present. No architectural distort ion. Pulmonary Arteries: No evidence of filling defect to suggest pulmonary emboli. Mediastinum and Velma: No dominant adenopathy or fluid collection. The esophagus is unremarkable. Visualized thyroid gland: Unremarkable. Pleura: No effusion or pneumothorax. Heart: The heart is not dilated. No coronary artery calcifications are seen. No pericardial effusion. Aorta: Thoracic aorta non-dilated. No evidence of dissection. Atherosclerotic calcification is prese nt. Bones: Within normal limits for the patient's age. Old healed sternal fracture. Soft tissues: Unremarkable. ABDOMEN: Liver: Normal density. No measurable mass. The liver measures 21 cm long. Portal, Superior Mesenteric, and Splenic Veins: Unremarkable. Gallbladder and Biliary Tract: Status post cholecystectomy. No significant biliary ductal dilatation . Pancreas: There is mild fatty replacement of the pancreas. No evidence of a pancreatic mass or perip ancreatic fluid collection. Spleen: Spleen measures 14.2 cm long. Adrenals: No masses seen. Kidneys: Normal size, contour and axis. No radiodense stones or obstructive uropathy. There are bilat eral renal cysts. No follow-up is recommended. Abdominal Aorta: Abdominal portion non-dilated. Atherosclerotic calcification is present. Bowel: There are postsurgical changes seen in the stomach. Anastomotic clips are seen in the small b owel in the left abdomen. There is diverticulosis of the colon but no evidence of acute diverticulit is. There is mild thickening of the wall of the sigmoid colon and rectum without associated inflamma tory changes in the soft tissues. This may be due to underdistention. Mild inflammatory/infectious process cannot be excluded. Appendix is unremarkable. Peritoneal Cavity: No ascites, collection or mesenteric inflammatory response. No free air. Lymph Nodes: Within normal limits. Bones: Within normal limits for the patient's age. Soft Tissues: There are bilateral fat containing inguinal hernias. PELVIS: Bladder: Symmetric distention, no gross wall thickening. Reproductive Organs: There is a penile implant present. Lymph Nodes: Within normal limits. Bones: Within normal limits. IMPRESSION: 1. No evidence pulmonary embolism, thoracic aortic dissection or aneurysm. 2. No acute pulmonary process. 3. Mild thickening of the wall of the sigmoid colon and rectum. This may be due to underdistention. No inflammatory changes are seen in the surrounding soft tissues. No free air or abscess. A mild i nflammatory/infectious colitis cannot be excluded. Please correlate clinically. RADIATION DOSE DELIVERED: 2,051.38mGy.cm Total DLP DATA REPOSITORY: All CT scans at this facility are submitted to the National Radiology Data Registry (NRDR) Dose Index Registry (DIR) with the [employer] (ACR). RADIATION OPTIMIZATION: All CT scans at this facility use at least one of these dose optimization te chniques: automated exposure control; mA and/or kV adjustment per patient size (includes targeted exa ms where dose is matched to clinical indication); or iterative reconstruction.
--- OUTSIDE RECORDS SUMMARY | 2024-01-19 15:12 | XMS_ITS | Encounter Summary ---
Author Organization [facility] [place] [address] Care Team Providers Care Profile Grinder Technician Name Role Phone Yung Horn MD Primary Care Provider [phone] Encounter Details Date Type Department Care Team (Late st Contact Info) Description 04/20/2022 12:10 AM EDT Ancillary [place] [address] Yung Horn MD [address] [place] [address] [place] [id number] Social History Tobacco Use Types Packs/Day Years Used Date Smoking Tobacco: Former Smokeless Tobacco: Never Alcohol Use Standard Drinks/Week Comments Yes 12 (1 standard drink = 0.6 oz pu re alcohol) beer once in a while Sex and Gender Information Value Date Recorded Sex Assigned at Not on file Gender Identity Not on file Sexual Orientation Not on file documented as of this encounter Plan of Treatment Upcoming Encounters Date Type Department Care Team (Latest Contact Info) Description 02/01/2024 11:15 AM EDT Telephone Pre Admission Testing at [address] [phone] 02/07/2024 11:20 AM EDT [place] [phone] Manoj Vinson MD [facility] [place] [address] 02/08/2024 8:30 AM EDT Hospital Encounter PACU at [address] [phone] Manoj Vinson MD [facility] [place] [address] 02/08/2024 8:30 AM EDT - 02/08/2024 11:00 AM EDT Surgery Main OR at [address] [phone] Manoj iVnson MD [facility] [place] [address] ADJ.TISSUE TRANSFER, REARRANGEMENT, 10.1 TO 30 SQ.CM, GENITALIA (WRVU 10.83) Scheduled Procedures Name Priority Associated Diagnoses Date/Ti me ADJ.TISSUE TRANSFER, REARRANGEMENT, 10.1 TO 30 SQ.CM, GENITALIA (WRVU 10.83) Acquired buried penis 02/08/2024 8:30 AM EDT documented as of this encounter Procedures Procedure Name Priority Date/Time Associated Diagnosis Comments FILM LIBRARY STORAGE ONLY DX LOWER EXTREMITY Routine 04/20/2022 12:10 AM EDT documented in this encounter Results * Film Library- Storage Only DX Lower Extremity (04/20/2022 12:10 AM EDT) Narrative DAVID - 04/21/2022 2:24 AM EDT This exam is auto-finalizing. It's purpose is for storage only. Yung Horn MD IMG FILM LIBRARY ORD ERABLES [place], [place] documented in this encounter Visit Diagnoses Not on filedocumented in this encounter Care Teams Profile Grinder Technician Relationship Specialty Start Date End Date Yung Horn MD [address] [place] [address] PCP - General 11/22/16 documented as of this encounter
--- OUTSIDE RECORDS SUMMARY | 2024-01-19 15:12 | XMS_ITS | Encounter Summary ---
Author Organization [facility] [place] [address] Care Team Providers Care Flat Breakdown Processor Name Role Phone Yung Horn MD Primary Care Provider [phone] Reason for Visit * Reason Comments Medication Refill Encounter Details Date Type Department Care Team (Late st Contact Info) Description 03/05/2021 Refill [place] [phone] Korey Avalos PA [facility] [place] [address] HERR (nonalcoholic steatohepatitis) Social History Tobacco Use Types Packs/Day Years [...] AM EDT Telephone Pre Admission Testing at [address] [phone] 02/07/2024 11:20 AM EDT [place] [phone] Manoj Vinson MD [facility] [address] [place], [place] [id number] 02/08/2024 8:30 AM EDT Hospital Encounter PACU at [address] [address] Manoj Vinson MD [facility] [place] [address] 02/08/2024 8:30 AM EDT - 02/08/2024 11:00 AM EDT Surgery Main OR at [address] [phone] Manoj Vinson MD [facility] [place] [address] ADJ.TISSUE TRANSFER, REARRANGEMENT, 10.1 TO 30 SQ.CM, GENITALIA (WRVU 10.83) Scheduled Procedures Name Priority Associated Diagnoses Date/Ti me ADJ.TISSUE TRANSFER, REARRANGEMENT, 10.1 TO 30 SQ.CM, GENITALIA (WRVU 10.83) Acquired buried penis 02/08/2024 8:30 AM EDT documented as of this encounter Visit Diagnoses Diagnosis HERR (nonalcoholic steatohepatitis) Other chronic nonalcoholic liver disease Acquired buried penis Other specified disorder of penis documented in this encounter Care Teams Flat Breakdown Processor Relationship Specialty Start Date End Date Yung Horn MD [address] [place] [address] PCP - General 11/22/16 documented as of this encounter
--- OUTSIDE RECORDS SUMMARY | 2024-01-19 15:12 | XMS_ITS | Encounter Summary ---
Author Organization [facility] [address] Care Team Providers Care Policy Service Coordinator Name Role Phone Yung Horn MD Primary Care Provider [phone] Encounter Details Date Type Department Care Team (Late st Contact Info) Description 02/23/2021 [place] [phone] Tatiana Munoz BRIDAL CONSULTANT [facility] [place] [address] Social History Tobacco Use Types Packs/Day Years [...] on file documented as of this encounter Miscellaneous Notes * Telephone Encounter - Tatiana Munoz APRN - 02/23/2021 8:33 AM EDT Called patient to review second read of liver biopsy. Findings: 1 - Gallbladder, cholecystectomy: - Chronic cholecystitis and cholelithiasis. 2 - Liver, wedge ??biopsy: - Subcapsular liver tissue with cautery artifact and ?sinusoidal ??dilatation, negative ??for steatosis or inflammation. Based on this biopsy and his fibroscan which shows F2 fibrosis, I suspect that he does not have cirrhosis. Plan to review biopsy further at liver pathology conference on 03/04/21. Discussed with patient that he should continue to abstain from alcohol. TATIANA MUNOZ APRN documented in this encounter Plan of Treatment Upcoming Encounters Date Type Department Care Team (Latest Contact Info) Description 02/01/2024 11:15 AM EDT Telephone Pre Admission Testing at [address] [phone] 02/07/2024 11:20 AM EDT [place] [address] Manoj Vinson MD [facility] [place] [address] 02/08/2024 8:30 AM EDT Hospital Encounter PACU at [address] [address] Manoj Vinson MD [facility] [place] [address] 02/08/2024 8:30 AM EDT - 02/08/2024 11:00 AM EDT Surgery Main OR at [address] [address] Maonj Vinson MD [facility] [place] [address] ADJ.TISSUE TRANSFER, REARRANGEMENT, 10.1 TO 30 SQ.CM, GENITALIA (WRVU 10.83) Scheduled Procedures Name Priority Associated Diagnoses Date/Ti tn ADJ.TISSUE TRANSFER, REARRANGEMENT, 10.1 TO 30 SQ.CM, GENITALIA (WRVU 10.83) Acquired buried penis 02/08/2024 8:30 AM EDT documented as of this encounter Visit Diagnoses Not on filedocumented in this encounter Care Teams Policy Service Coordinator Relationship Specialty Start Date End Date Yung Horn MD [address] [place] [address] [place] [address] PCP - General 11/22/16 documented as of this encounter
--- OUTSIDE RECORDS SUMMARY | 2024-01-19 15:12 | XMS_ITS | Encounter Summary ---
Author Organization [facility] [place] [address] Care Team Providers Care Packaging Sales Consultant Name Role Phone Yung Horn MD Primary Care Provider [phone] Reason for Visit * Reason Comments Medication Refill Encounter Details Date Type Department Care Team (Late st Contact Info) Description 05/03/2021 Refill [place] [phone] Tatiana Call APRN [facility] [place] [address] HERR (nonalcoholic steatohepatitis) Social History Tobacco Use [...] AM EDT Telephone Pre Admission Testing at [address] [phone] 02/07/2024 11:20 AM EDT [place] [phone] Manoj Vinson MD [facility] UROLOGY [place], [place] [phone] 02/08/2024 8:30 AM EDT Hospital Encounter PACU at [address] [phone] Manoj Vinson MD [facility] [place] [address] 02/08/2024 8:30 AM EDT - 02/08/2024 11:00 AM EDT Surgery Main OR at [address] [address] Manoj Vinson MD [facility] [place] [address] ADJ.TISSUE TRANSFER, REARRANGEMENT, 10.1 TO 30 SQ.CM, [...] penis documented in this encounter Care Teams Packaging Sales Consultant Relationship Specialty Start Date End Date Yung Horn MD [address] [place] [address] PCP - General 11/22/16 documented as of this encounter
--- OUTSIDE RECORDS SUMMARY | 2024-01-19 15:12 | XMS_ITS | Encounter Summary ---
Author Organization [facility] [place] [address] Care Team Providers Care Seo Assistant Name Role Phone Yung Horn MD Primary Care Provider [phone] Reason for Visit * Reason Comments Medication Refill Encounter Details Date Type Department Care Team (Late st Contact Info) Description 08/10/2021 Refill [place] [phone] Tatiana Call APRN [facility] [place] [address] HERR (nonalcoholic steatohepatitis) Social History Tobacco Use [...] AM EDT Telephone Pre Admission Testing at [address] [phone] 02/07/2024 11:20 AM EDT Office [place] [phone] Manoj Vinson MD [facility] UROLOGY [place], [place] [phone] 02/08/2024 8:30 AM EDT Hospital Encounter PACU at [address] [address] Manoj Vinson MD [facility] [place] [address] 02/08/2024 8:30 AM EDT - 02/08/2024 11:00 AM EDT Surgery Main OR at [address] [address] Manoj Vinson MD [facility] [place] [address] ADJ.TISSUE TRANSFER, REARRANGEMENT, 10.1 TO 30 SQ.CM, [...] penis documented in this encounter Care Teams Seo Assistant Relationship Specialty Start Date End Date Yung Horn MD [address] [place] [address] PCP - General 11/22/16 documented as of this encounter
--- OUTSIDE RECORDS SUMMARY | 2024-01-19 15:12 | XMS_ITS | Encounter Summary ---
Author Organization [facility] [place] [address] Care Team Providers Care Internal Controls Consultant Name Role Phone Yung Horn MD Primary Care Provider [phone] Encounter Details Date Type Department Care Team (Late st Contact Info) Description 04/20/2022 Ancillary Procedure [place] [address] Yung Horn MD [facility] [place] [phone] Social History Tobacco Use Types Packs/Day Years [...] AM EDT Telephone Pre Admission Testing at [address] [phone] 02/07/2024 11:20 AM EDT [place] [address] Manoj Vinson MD [facility] [place] [address] 02/08/2024 8:30 AM EDT Hospital Encounter PACU at [address] [phone] Manoj Vinson MD [facility] [place] [address] 02/08/2024 8:30 AM EDT - 02/08/2024 11:00 AM EDT Surgery Main OR at [address] [phone] Manoj Vinson MD [facility] [place] [address] ADJ.TISSUE TRANSFER, REARRANGEMENT, 10.1 TO 30 SQ.CM, GENITALIA (WRVU 10.83) Scheduled Procedures Name Priority Associated Diagnoses Date/Ti me ADJ.TISSUE TRANSFER, REARRANGEMENT, 10.1 TO 30 SQ.CM, GENITALIA (WRVU 10.83) Acquired buried penis 02/08/2024 8:30 AM EDT documented as of this encounter Procedures Procedure Name Priority Date/Time Associated Diagnosis Comments FILM LIBRARY STORAGE ONLY CT CHEST ABDOMEN PELVIS Routine 04/20/2022 12:00 AM EDT documented in this encounter Results * Film Library- Storage Only CT Chest Abdomen Pelvis (04/20/2022 12:00 AM EDT) Narrative DAVID - 04/21/2022 2:17 AM EDT This exam is auto-finalizing. It's purpose is for storage only. Yung Horn MD IMG FILM LIBRARY ORD ERABLES [place], [place] documented in this encounter Visit Diagnoses Not on filedocumented in this encounter Care Teams Internal Controls Consultant Relationship Specialty Start Date End Date Yung Horn MD [address] [place] [address] PCP - General 11/22/16 documented as of this encounter
--- OUTSIDE RECORDS SUMMARY | 2024-01-19 15:12 | XMS_ITS | Encounter Summary ---
Author Organization [facility] Address [facility] [place] [address] Care Team Providers Care Supervisor Pipe Joints Name Role Phone Yung Horn MD Primary Care Provider [phone] Reason for Visit * Reason Comments Chest Pain Shortness of Breath * Auth/Cert Specialty Diagnoses / Procedures Referred By Contac t Referred To Contact Diagnoses Chest pain Procedures emergency obsvo Referral ID Status Reason Start Date Expiration Date Visits Re quested Visits Authorized [id number] 1 1 Encounter Details Date Type Department Care Team (Late st Contact Info) Description 07/29/2021 10:04 AM EST - 07/30/2021 1:18 PM [place] [address] Samson García MD [facility] [place] [address] Suzy Treviño MD [facility] [place] [address] Nilam Herbert MD [facility] [place] [address] Chuck Salinas MD [facility] [place] [address] Chest pain (Primary Dx) Discharge Disposition: Home Social History Tobacco Use Types Packs/Day Years [...] on file documented as of this encounter Last Filed Vital Signs Vital Sign Reading Time Taken Comments Blood Pressure 134/83 07/30/2021 11:43 AM EST Pulse 83 07/30/2021 11:43 AM EST Temperature 36.7 ??C (98.1 ??F) 07/30/2021 11:[address] Respiratory Rate 14 07/30/2021 7:30 AM EST Oxygen Saturation 93% 07/30/2021 11:43 AM EST Inhaled Oxygen Concentration - - Weight 113.4 kg (250 lb) 07/29/2021 10:17 AM EST Height 180.3 cm (5' 11) 07/29/2021 10:17 AM EST Body Mass Index 34.87 07/29/2021 10:17 AM EST documented in this encounter Discharge Instructions * Discharge Instructions* Ananth Amzecua PA - 07/30/2021 10:26 AM EST You were evaluated in the emergency department for chest pain. We did not find an obvious cause foryour symptoms. Your stress test here was normal. Your labs and work-up here has been reassuring. Please follow-up with your primary care provider to discuss ongoing management of your symptoms. Return the emergency department as needed for any acutely worsening symptoms or other concerns. * Attachments The following attachments cannot be sent through Care Everywhere. * Chest Pain (Croatian) documented in this encounter Medications at Time of Discharge Medication Sig Dispensed Refills Start Date End Date albuteroL (ProAir HFA) 90 mcg/actuation HFA Aerosol Inhaler Every 4 hours. 09/18/2020 tamsulosin (Flomax) 0.4 mg Capsule TAKE ONE CAPSULE BY MOUTH EVERY NIGHT AT BEDTIME 07/09/2021 dulaglutide (Trulicity) 0.75 mg/0.5 mL Pen Injector Inject 0.75 mg subcutaneously once a week. Venlafaxine 225 mg Tablet Extended Rel 24 hr daily. 0 2018 glipiZIDE (GLUCOTROL) 5 mg Tablet 10 mg 0 03/31/2017 ferrous sulfate 324 mg (65 mg iron) Tablet, Delayed Release (E.C.)Indications:ir on deficiency anemia Take 324 mg by mouth. Indications: Iron Deficiency Anemia acetaminophen (TYLENOL) 500 mg Tablet Take 2 tablets by mouth every 6 hours as needed for Pain. 06/10/2015 gabapentin (NEURONTIN) 600 mg Tablet Take 800 mg by mouth 3 times daily. metFORMIN (FORTAMET) 1,000 mg Tablet Extended Rel 24 hr Take 1,000 mg by mouth 2 times daily (with meals). pantoprazole EC (Protonix) 40 mg Tablet, Delayed Release (E.C.)Indications:NA SH (nonalcoholic steatohepatitis) TAKE 1 TABLET BY MOUTH TWICE DAILY BEFORE MEALS 60 tablet 07/12/2021 08/10/2021 documented as of this encounter ED Notes * Lizzie Beaulieu RN - 07/30/2021 11:50 AM EST Pt enjoying lunch and coffee, pt reports pt's will arrive ~ 45 minutes to provide transportation home. * Chuck Salinas MD - 07/30/2021 11:05 AM EST CLINICAL DECISION UNIT - ED ATTENDING DAY OF DISCHARGE NOTE Reason for CDU Admission: Chest Pain Brief Clinical Summary: 65 y.o. male presented to ED with chest pain concerning for possible ACS. Initial evaluation in the ED did not reveal any objective evidence of cardiac ischemia or an alternative cause to explain the patient's pain. Subsequent course in the CDU also did not reveal any objective evidence of ischemia. Stress imaging was obtained and did not reveal evidence of ischemia. The patient is currently chest pain free with no new complaints. Discharge Vital Signs: BP 119/70 Pulse 62 Temp 36.7 ??C (98.1 ??F) (Oral) Resp 11 Ht 180.3 cm (5' 11) Wt 113.4 kg (250 lb) SpO2 97% BMI 34.87 kg/m?? Medical Decision Making: Chest pain of unclear etiology. ACS has essentially been ruled out given negative serial troponin, non-ischemic serial ECGs and non- ischemic stress imaging. Other life threatening causes of chest pain were considered and felt to be unlikely. There have been no other active clinical issues identified. I have determined that the patient meets criteria for discharge at this time. The discharge plan was reviewed with the patient, they have had an opportunity to ask questions, and are in agreement with the plan. The patient was seen in conjunction with Ananth Amezcua. Chuck Salinas MD 07/30/21 1106 * Ananth Amezcua PA - 07/30/2021 10:26 AM EST CLINICAL DECISION UNIT - DISCHARGE SUMMARY Patient Name: Yung Betancur Patient Age: 65 y.o. Birthdate: 1955 Admit date: 07/29/2021 Discharge date and time: 07/30/2021 Attending Physician: Chuck Salinas MD Discharge Diagnoses: Chest Pain History of Presentation (from ED Note): Yung Betancur??is a 65 y.o.??male who presents to the Emergency Department with a 3-month history of shortness of breath, exertional chest pressure. ??This has been ongoing for several years but has restarted over the last 3 months. ??Every time he exerts himself he gets worsening shortness of breath, mild substernal chest pressure that is a 4-5 out of 10, back pain as well as left arm tingling. ??This usually resolves when he rests. ??Even at rest he is short of breath, however. ??He has not seen a physician for this in the last 3 months. ??He had a cardiology clinic visit today and stated that he had the symptoms and he was subsequently taken to the emergency department. ??He also states that he has had chills over the last 2 to 3 days. ??He is vaccinated for COVID-19. ??No lower extremity edema. ??No cough. ??No nausea, diaphoresis. ??He does not take aspirin. ??He was recently takenoff lisinopril by his 3 months ago. Exam at Time of Discharge: BP 119/70 Pulse 62 Temp 36.7 ??C (98.1 ??F) (Oral) Resp 11 Ht 180.3 cm (5' 11) Wt 113.4 kg (250 lb) SpO2 97% BMI 34.87 kg/m?? Constitutional: Appears well-developed and well-nourished. No distress. Head: Normocephalic and atraumatic. Eyes: EOM are normal. Neck: Normal range of motion. Cardiovascular: Normal rate and regular rhythm. Pulmonary/Chest: Effort normal and breath sounds normal. Abdominal: Soft. Exhibits no distension. There is no tenderness. Musculoskeletal: Exhibits no edema or tenderness. Neurological: Alert and oriented to person, place, and time. Skin: Skin is warm and dry. Emergency Department/Clinical Decision Unit Course: -H&P -Labs G;ucose of 188 -Troponin/EKG negative X2 -Nuclear pharm stress negative for ischemia Summary of Important Studies and Lab Data: Recent Results (from the past 72 hour(s)) EKG 12 Lead Result Value Ref Range Ventricular rate 105 BPM Atrial Rate 105 BPM P-R Interval 164 ms QRS Duration 88 ms Q-T Interval 326 ms QTC Calculated (Bezet) 430 ms Calculated P [place] 67 degrees Calculated R [place] 0 degrees Calculated T [place] 55 degrees INTERPRETATION Sinus tachycardia Otherwise normal ECG When compared with ECG of 08-OCT-2020 09:20, Premature ventricular complexes are no longer Present Confirmed by MD Christelle, Puneet Falk ([id number]) on 07/29/2021 9:43:18 AM EKG 12 Lead Result Value Ref Range Ventricular rate 90 BPM Atrial Rate 90 BPM P-R Interval 162 ms QRS Duration 90 ms Q-T Interval 338 ms QTC Calculated (Bezet) 413 ms Calculated P [place] 50 degrees Calculated R [place] -11 degrees Calculated T [place] 43 degrees INTERPRETATION Normal sinus rhythm Normal ECG When compared with ECG of 29-JUL-2021 09:07, No significant change was found I personally reviewed the tracing and edited the fellows interpretation Confirmed by fellow Dae Solano ([id number]) on 07/29/2021 8:52:02 PM Confirmed by MD Ch Stanislav ([id number]) on 07/30/2021 8:01:40 AM Basic Metabolic Panel (non-fasting) Result Value Ref Range Glucose Lvl 188 65 - 199 mg/dL BUN 27 (H) 10 - 20 mg/dL Creatinine 1.19 0.80 - 1.50 mg/dL Sodium 133 (L) 135 - 145 mmol/L Potassium 5.0 3.5 - 5.0 mmol/L Chloride 99 98 - 107 mmol/L CO2 20 (L) 22 - 31 mmol/L Anion Gap 14 5 - 15 mmol/L Calcium 10.0 8.5 - 10.5 mg/dL Estimated GFR 64 >=60 mL/min/1.73 m?? Troponin Result Value Ref Range Troponin-T <0.01 0.00 - 0.00 ng/mL Blue Tube HOLD Result Value Ref Range Blue Hold Sample in lab. Hemogram Result Value Ref Range WBC 8.1 4.0 - 9.5 x10(3)/mcL RBC 5.05 4.58 - 5.54 x10(6)/mcL Hemoglobin 15.2 13.7 - 16.5 g/dL Hematocrit 44.4 40.5 - 48.5 % MCV 87.9 82.9 - 93.1 fL MCH 30.1 27.5 - 32.1 pg MCHC 34.2 32.0 - 35.7 g/dL Platelets 186 145 - 357 x10(3)/mcL RDWSD 39.8 36.0 - 45.0 fL RDWCV 12.4 11.4 - 13.8 % MPV 10.2 7.6 - 12.9 fL nRBC % Auto 0.0 % nRBC Abs Auto 0.000 0.000 - 0.000 x10(3)/mcL Differential, Automated Result Value Ref Range Neutrophils % 71.7 % Neutr Abs (ANC) 5.80 1.70 - 6.10 x10(3)/mcL Lymphocytes % 20.4 % Lymphocytes Abs 1.6 0.9 - 3.2 x10(3)/mcL Monocytes % 5.6 % Monocyte Abs 0.4 0.3 - 0.9 x10(3)/mcL Eosinophils % 1.6 % Eosinophils Abs 0.1 0.0 - 0.4 x10(3)/mcL Basophils % 0.2 % Basophils Abs 0.0 0.0 - 0.1 x10(3)/mcL Immature Gran % 0.50 % Shana Gran Abs 0.04 0.00 - 0.04 x10(3)/mcL Gold Tube HOLD Result Value Ref Range Gold Hold Sample in lab. D-Dimer, Quantitative Result Value Ref Range D-Dimer, Quant 637 (H) 0 - 500 FEU ng/ml COVID-19 PCR Specimen: Nasopharyngeal Swab Symptoms->COVID-19 Suspected Result Value Ref Range SARS-CoV-2 RNA PCR Not Detected Not Detected SARS-CoV-2 Source [employer] Swab EKG 12 Lead Result Value Ref Range Ventricular rate 77 BPM Atrial Rate 77 BPM P-R Interval 174 ms QRS Duration 92 ms Q-T Interval 358 ms QTC Calculated (Bezet) 405 ms Calculated P [place] 57 degrees Calculated R [place] -8 degrees Calculated T [place] 41 degrees INTERPRETATION Normal sinus rhythm Normal ECG When compared with ECG of 29-JUL-2021 10:05, (unconfirmed) No significant change was found Confirmed by MD Christelle, Puneet Falk ([id number]) on 07/29/2021 4:26:06 PM POCT Glucose Result Value Ref Range POC Glucose 146 65 - 199 mg/dL EKG 12 Lead Result Value Ref Range Ventricular rate 92 BPM Atrial Rate 92 BPM P-R Interval 176 ms QRS Duration 96 ms Q-T Interval 354 ms QTC Calculated (Bezet) 437 ms Calculated P [place] 46 degrees Calculated R [place] -11 degrees Calculated T [place] 44 degrees INTERPRETATION Normal sinus rhythm Incomplete right bundle branch block Borderline ECG When compared with ECG of 29-JUL-2021 14:47, No significant change was found Confirmed by MD Barnes Danette ([id number]) on 07/30/2021 9:23:04 AM Troponin Result Value Ref Range Troponin-T <0.01 0.00 - 0.00 ng/mL Pending Studies and Lab Data: n/a Discharge Condition: good Discharge to: Home Discharge Medications: Your Medications UNREVIEWED medications - Discuss With Your Provider Dose Details acetaminophen 500 mg Tab Commonly known as: Tylenol Take 2 tablets by mouth every 6 hours as needed for Pain. 1,000 mg Refills: 0 aspirin 81 mg Chew Take 81 mg by mouth Daily. 81 mg Refills: 0 cholecalciferol (Vitamin D3) 50 mcg (2,000 unit) Tab Take 1 tablet by mouth. Indications: Vitamin D Deficiency 1 tablet Refills: 0 ferrous sulfate 324 mg (65 mg iron) Tbec Take 324 mg by mouth. Indications: Iron Deficiency Anemia 324 mg Refills: 0 gabapentin 600 mg Tab Commonly known as: NEURONTIN Take 800 mg by mouth 3 times daily. 800 mg Refills: 0 glipiZIDE 5 mg Tab Commonly known as: Glucotrol 10 mg Refills: 0 lisinopriL 20 mg Tab Commonly known as: Zestril Take by mouth. Refills: 0 magnesium oxide 400 mg (241.3 mg magnesium) Tab Commonly known as: Mag-Ox TAKE 1 TABLET BY MOUTH DAILY Refills: 3 metFORMIN 1,000 mg Tr24 Commonly known as: FORTAMET Take 1,000 mg by mouth 2 times daily (with meals). 1,000 mg Refills: 0 multivitamin Tab Commonly known as: THERAGRAN Take 1 tablet by mouth daily. 1 tablet Refills: 0 StartSampling Ultra2 Meter Kit TEST BLOOD GLUCOSE WITH ALL MEALS. DX: E11.9 Generic drug: blood-glucose meter Refills: 0 pantoprazole EC 40 mg Tbec Commonly known as: Protonix TAKE 1 TABLET BY MOUTH TWICE DAILY BEFORE MEALS Quantity: 60 tablet Refills: 0 ProAir HFA 90 mcg/actuation Hfaa Every 4 hours. Generic drug: albuteroL Refills: 0 tamsulosin 0.4 mg Cap Commonly known as: Flomax TAKE ONE CAPSULE BY MOUTH EVERY NIGHT AT BEDTIME Refills: 0 Trulicity 0.75 mg/0.5 mL Pnij Inject 0.75 mg subcutaneously once a week. Generic drug: dulaglutide 0.75 mg Refills: 0 Venlafaxine 225 mg Tr24 daily. Refills: 0 Updated Allergies/ADRs: Allergies Allergen Reactions ??? Bandages, Cohesive Rash ??? Adhesive Tape Rash Future Appointments and Orders Future Appointments and Orders Future Appointments Provider Department Dept Phone 07/30/2021 10:40 AM [facility] STRESS Nuclear Medicine at [facility] Arrive at: 3Z INTERVENTIONAL RADIOLOGY [phone] Please do not eat or drink anything for at least 3 hours prior to your appointment. Also, Do not consume any caffeine in any form from food, beverages or medciation for 12 hours prior to exam. This includes: decaffeinated coffee and beverages, chocolate in any form, over the counter medications containing caffeine, ex: Exedrin Migraine etc. 07/30/2021 1:05 PM [facility] ROOM 2 Nuclear Medicine at [facility] Arrive at: 3Z INTERVENTIONAL RADIOLOGY [phone] General Instructions You were evaluated in the emergency department for chest pain. We did not find an obvious cause foryour symptoms. Your stress test here was normal. Your labs and work-up here has been reassuring. Please follow-up with your primary care provider to discuss ongoing management of your symptoms. Return the emergency department as needed for any acutely worsening symptoms or other concerns. I have asked Dr Salinas to see this patient today. For questions regarding this document or issues relating to this admission, please contact the Clinical Decision Unit through the [facility] L[employer] Hardener . Ananth Amezcua PA 07/30/21 1029 * Lizzie Beaulieu RN - 07/30/2021 9:27 AM EST Ananth BECKER at pt's bedside. * Lizzie Beaulieu RN - 07/30/2021 9:24 AM EST Pt returned to room from Nuclear Medicine. * Naz Romero RN - 07/30/2021 5:02 AM EST Patient's status remains unchanged. Patient appears to be sleeping comfortably. Call ayoub within reach. * Naz Romero RN - 07/30/2021 12:00 AM EST Assumed care of the patient at this time. Patient resting comfortably on stretcher with eyes closed. Patient denies further needs at this time. Call ayoub within reach. * More Aranda RN - 07/29/2021 9:39 PM EST Pt with cont c/o chest discomfort, pt denies SOB but states it happens after eating, pt with hx of 'balloon a year ago', possible esophageal issues, pt able to swallow, took pills/meds, no nausea, onMD adarsh aware. * More Aranda RN - 07/29/2021 8:02 PM EST Pt c/o of CP/nausea after eating, repeat trop and EKG done, pt states he gets CP after eating all meals. * More Aranda RN - 07/29/2021 6:40 PM EST Meal order sent. * Moer Aranda RN - 07/29/2021 4:42 PM EST Pt placed on hospital bed, off precautions. * Tyson Cramer PA - 07/29/2021 1:51 PM EST Patient Name: Yung Betancur Patient Age: 65 y.o. Birthdate: 1955 Admit date: 07/29/2021 Attending Physician: Samson García MD CLINICAL DECISION UNIT - ADMISSION NOTE Admit date: 07/29/2021 Attending Physician: Samson García MD Brief Summary of Patient Presentation: From ED note: Yung Betancur is a 65 y.o. male who presents to the Emergency Department with a 3-month history of shortness of breath, exertional chest pressure. This has been ongoing for several years but has restarted over the last 3 months. Every time he exerts himself he gets worsening shortness of breath, mild substernal chest pressure that is a 4-5 out of 10, back pain as well as left arm tingling. This usually resolves when he rests. Even at rest he is short of breath, however. He has not seen a physician for this in the last 3 months. He had a cardiology clinic visit today and stated that he had thesymptoms and he was subsequently taken to the emergency department. He also states that he has had chills over the last 2 to 3 days. He is vaccinated for COVID-19. No lower extremity edema. No cough.No nausea, diaphoresis. He does not take aspirin. He was recently taken off lisinopril by his 3 months ago. Patient Active Problem List Diagnosis Code ??? Peyronie's disease N48.6 ??? Male erectile dysfunction N52.9 ??? Chest pain/[place] of uncertain etiology R07.9 ??? Weight gain status post gastric bypass R63.5, Z98.84 ??? Syncope R55 ??? Obesity E66.9 ??? Sleep apnea G47.30 Allergies Allergen Reactions ??? Bandages, Cohesive Rash ??? Adhesive Tape Rash History reviewed. No pertinent past medical history. Social History Socioeconomic History ??? Marital status: Spouse name: Not on file ??? Number of children: Not on file ??? Years of education: Not on file ??? Highest education level: Not on file Occupational History ??? Not on file Tobacco Use ??? Smoking status: Former Smoker ??? Smokeless tobacco: Never Used Vaping Use ??? Vaping Use: Never used Substance and Sexual Activity ??? Alcohol use: Yes Alcohol/week: 12.0 standard drinks Types: 12 Cans of beer per week Comment: beer once in a while ??? Drug use: No ??? Sexual activity: Yes Partners: Female Other Topics Concern ??? Not on file Social History Narrative ??? Not on file Social Determinants of Health Financial Resource Strain: Not on file Food Insecurity: Not on file Transportation Needs: Not on file Physical Activity: Not on file Housing Stability: Not on file No family history on file. Review of Systems Please see ED note Focused Exam: BP 135/81 Pulse 84 Temp 36.5 ??C (97.7 ??F) (Oral) Resp 14 Ht 180.3 cm (5' 11) Wt 113.4 kg (250 lb) SpO2 96% BMI 34.87 kg/m?? Constitutional: Appears well-developed and well-nourished. No distress. Head: Normocephalic and atraumatic. Eyes: EOM are normal. Neck: Normal range of motion. Cardiovascular: Normal rate Pulmonary/Chest: Effort normal Musculoskeletal: Exhibits no edema or tenderness. Neurological: Alert and oriented to person, place, and time. Skin: Skin is warm and dry. CDU Protocol Used: Chest Pain Plan: Serial troponin/EKG Cardiac monitoring Nuclear medicine stress test Tyson Cramer PA 07/29/21 1721 * Jai Winters MD - 07/29/2021 10:29 AM EST Yung Betancur is an 65 y.o. male who presents to the ED with: Chief Complaint Patient presents with ??? Chest Pain ??? Shortness of Breath I saw this patient 07/29/2021 at ~ 10:29 AM HPI Yung Betancur is a 65 y.o. male with a PMH significant for obesity, chronic shortness of breath, who presents to the Emergency Department with a 3-month history of shortness of breath, exertional chest pressure. This has been ongoing for several years but has restarted over the last 3 months. Everytime he exerts himself he gets worsening shortness of breath, mild substernal chest pressure that is a 4-5 out of 10, back pain as well as left arm tingling. This usually resolves when he rests. Evenat rest he is short of breath, however. He has not seen a physician for this in the last 3 months. He had a cardiology clinic visit today and stated that he had the symptoms and he was subsequently taken to the emergency department. He also states that he has had chills over the last 2 to 3 days. He is vaccinated for COVID-19. No lower extremity edema. No cough. No nausea, diaphoresis. He does not take aspirin. He was recently taken off lisinopril by his 3 months ago. Review of Systems: A 10 point review of systems was performed and was negative except as noted in HPI Patient Vitals for the past 8 hrs: Temp Temp src Height Weight 07/29/21 1017 36.5 ??C (97.7 ??F) Oral 180.3 cm (5' 11) 113.4 kg (250 lb) I have reviewed the vital signs, which demonstrates normal vitals Physical Exam: Physical Exam HENT: Head: Normocephalic and atraumatic. Right Ear: External ear normal. Left Ear: External ear normal. Nose: Nose normal. Mouth/Throat: Mouth: Mucous membranes are moist. Pharynx: Oropharynx is clear. Eyes: Extraocular Movements: Extraocular movements intact. Cardiovascular: Rate and Rhythm: Normal rate and regular rhythm. Pulmonary: Comments: Normal work of breathing. Lungs clear bilaterally. SPO2 97% on room air Musculoskeletal: General: No swelling. Normal range of motion. Cervical back: Normal range of motion. Comments: No appreciable edema felt in the bilateral lower extremities Skin: General: Skin is warm. Neurological: General: No focal deficit present. Mental Status: He is oriented to person, place, and time. Mental status is at baseline. Cranial Nerves: No cranial nerve deficit. Psychiatric: Mood and Affect: Mood normal. Thought Content: Thought content normal. ED Course: - Patient was evaluated and discussed with Dr. García - Medications, allergies, past medical history, surgical history, family history, and social history were reviewed ED Course: - Medications and fluid administered: Medications acetaminophen (Tylenol) tablet 1,000 mg (has no administration in time range) aspirin chewable tablet 81 mg (has no administration in time range) gabapentin (NEURONTIN) tablet 900 mg (has no administration in time range) glipiZIDE (Glucotrol) tablet 5 mg (has no administration in time range) metFORMIN (FORTAMET) ER tablet 1,000 mg (has no administration in time range) tamsulosin (Flomax) capsule 0.4 mg (has no administration in time range) pantoprazole EC (Protonix) tablet 40 mg (has no administration in time range) venlafaxine XR (Effexor-XR) capsule 225 mg (has no administration in time range) aspirin chewable tablet 324 mg (324 mg Oral Given 07/29/21 1129) - I have reviewed lab results, which are significant for: Labs Reviewed BASIC METABOLIC PANEL (NON-FASTING) - Abnormal; Notable for the following components: Result Value BUN 27 (*) Sodium 133 (*) CO2 20 (*) All other components within normal limits D-DIMER, QUANTITATIVE - Abnormal; Notable for the following components: D-Dimer, Quant 637 (*) All other components within normal limits RAPID COVID-19 PCR ([facility]) CBC (WITH DIFF) TROPONIN BLUE TUBE HOLD HEMOGRAM DIFFERENTIAL, AUTOMATED GOLD TUBE HOLD D-DIMER, QUANTITATIVE - I have reviewed imaging, which is significant for: XR Chest One View Final Result No acute cardiopulmonary process. I have personally reviewed the image(s) and the resident's interpretation and agree with the findings, Jose Loya MD at 07/29/2021 11:09 AM Thank you for letting us participate in the care of this patient. If you are a health care provider and have any questions regarding this report, please contact the number below. For patients who have questions please contact the health career counselor that requested your imaging first. Pharmacologic Stress CT Component (Results Pending) NM Pharmacologic Stress and Rest Myocardial Perfusion (Results Pending) - I have reviewed EKG results, which is significant for: EKG demonstrates normal sinus rhythm, normal axis, no ST elevation or ischemic changes Assessment and Plan: MDM: 65 y.o. male who presents for shortness of breath and chest pain. Initial exam was significant for a nontoxic appearing gentleman. He has had a 3- month history of shortness of breath and chest pain that sounds like stable angina. He has had this several times in the past. However, in reviewing his chart, he has not had a cardiac cath in several years and his laststress test was in 2019. I have relatively low suspicion for pulmonary embolism, though obtaining D-dimer. Has concern for stable angina versus ACS. However this is been going on for 3 months with noreal changes. In addition, he endorses a 2 to 3-day history of chills and I will be obtaining a COVID-19 test. Initial troponin negative. Age-adjusted D-dimer is negative. Given the patient's cardiac history and the fact that he presented from cardiology clinic, I spoke with the cardiology team who recommended CDU admission for nuclear stress test. Patient amenable to admission. Diagnosis: - chest pain Plan: - CDU chest pain Jai Winters MD Resident 07/29/21 1424 Associated attestation - Samson García MD - 07/30/2021 9:20 AM EST ED ATTENDING ADDENDUM: The patient was seen in conjunction with Dr. Winters, the resident physician. I have independently performed the do portions of the history and physical exam. I have reviewed all diagnostic studies personally including labs, imaging studies and EKG's. I have reviewed the patient's chart where indicated. I have also reviewed/obtained the allergies, medication, past medical history, and social history as documented in other parts of the chart. I have discussed the details of the case with the resident and agree with the all do portions of the H&P and plan as described in the resident noteabove. documented in this encounter Miscellaneous Notes * Initial Assessments - Jennifer East MSW - 07/29/2021 2:49 PM EST Office of Care Management Initial Assessment ANNA Puente reviewed record and discussed patient with Care Team. Source of Information: Team, bedside nurse, medical record, and Chart Review ANNA East Introduced self/reviewed role; services accepted. Reason for Hospitalization: Chest Pain/SOB Covid Vaccination Status: 1st, 2nd & booster Last COVID test: 07/29/21 Pending Past medical History: History reviewed. No pertinent past medical history. Hospitalizations Within the Past 30 Days: no previous admission in last 30 days Current Decision-Making Capacity: Self Advance Care Planning: Attempt Cardiopulmonary Resuscitation - Inpatient <no information> -Advanced Directive: No, need to discuss (Spouse: Tahmina ([phone])) If AD's have not been completed Spouse: Tahmina ([phone]) would be surrogate decision maker per [place] surrogate decision making law. (Only good for 180 days) Any patient receiving care at [facility] must abide by [place] law. The hierarchy for surrogate decision making is: (a) Patient???s spouse, or civil union partner or common law spouse unless there is a divorce proceeding, separation agreement, or restraining order limiting that person???s relationship with the patient. (b) Any adult son or daughter of the patient. (c) Either parent of the patient. (d) Any adult brother or sister of the patient. (e) Any adult grandchild of the patient. (f) Any grandparent of the patient. (g) Any adult aunt, uncle, niece, or nephew of the patient. (h) A close friend of the patient. (i) The agent with financial power of traffic law attorney or a conservator appointed in accordance with RSA 464-A. (j) The guardian of the patient???s estate. Current Coping/Education/Information Needs: Advanced DIrective Current Functional Ability: Assistive Equipment Functional Status Prior to Admission: Assistive Equipment Home Environment: Others in the home: spouse. Current Living Arrangements: home/apartment/condo. Accessibility Concerns: . Current DME: oxygen (BIPAP) Home Address listed as: [address] [address] Social & Family Supports: All names listed below confirmed with patient as current and correct Extended Emergency Contact Information Primary Emergency Contact: Tahmina Betancur [facility] Mobile Relation: Spouse Secondary Emergency Contact: Roseline Betancur Relation: Parent Current Care Provided by: self Provides Primary Care For: no one Caregiver if needed: spouse Quality of Family relationships: involved Community Resources being provided currently: unable to assess Behavioral Health History: Substance Use/Abuse listed: Social History Tobacco Use Smoking Status Former Smoker Smokeless Tobacco Never Used In the past year have you used an illegal drug or used a prescription medication for non-medical reaons?: No 0 No problems reported 1-2 Low level 3-5 Moderate level 6-8 Substantial level 9- 10 Severe level In the past year have you had 5 or more drinks a day containing alcohol?: No 0 to 7 points: Low risk 8 to 15 points: Medium risk 16 to 19 points: High risk 20 to 40 points: Addiction likely Other Pertinent/Service Specific Information: Pt's 32 year old daughter recently of heart failure Health/Prescription Coverage: Primary Insurance: MEDICARE Payor: MEDICARE / Plan: MEDICARE PART A & B / Product Type: *No Product type* / Secondary Insurance: N/A Prescription Coverage: No Preferred Pharmacy: [facility] - [place], [place] - [facility] [address] [place] [address] [id number] - [place], [place] [address] [facility] [address] nap- [id number] AT [facility] & [address] [address] [place] Status: Patient is a : unable to assess Primary Care Provider: Yung Horn MD [phone] Patient/Caregiver Goals of Treatment: Return home when medically ready Potential Needs for Transition of Care: outpatient care Agency Referrals: Not Applicable Transportation: no concerns Transportation Anticipated: family or friend will provide Concerns to be Addressed: no discharge needs identified Assessment: Patient under observation, CDU protocol for chest pain. Plan: Pt under CDU protocol for chest pain. Discharge disposition pending A member of the Care Management team will continue to monitor progress, follow for continuity of care and assist with transition of care planning. Jennifer CASTILLO * ED Triage - More Aranda RN - 07/29/2021 10:05 AM EST Pt with left foot swelling, SOB/CP, radiation to left arm/back, over a day, EKG/monitors, IV/labs, Pt is fully vaccinated for COVID. Pt arrive via WC from cards clinic, was supposed to be cleared for an egd, but pt was having mid-back pain, hx of chronic SOB w/ negative stress/cath/pulm. No blood thinners. gcs-15. Warm/pink/dry. documented in this encounter Plan of Treatment Upcoming Encounters Date Type Department Care Team (Latest Contact Info) Description 02/01/2024 11:15 AM EDT Telephone Pre Admission Testing at [address] [phone] 02/07/2024 11:20 AM EDT [place] [address] Manoj Vinson MD [facility] [place] [address] 02/08/2024 8:30 AM EDT Hospital Encounter PACU at [address] [address] Manoj Vinson MD [facility] [place] [address] 02/08/2024 8:30 AM EDT - 02/08/2024 11:00 AM EDT Surgery Main OR at [address] [address] Manoj Vinson MD [facility] [place] [address] ADJ.TISSUE TRANSFER, REARRANGEMENT, 10.1 TO 30 SQ.CM, GENITALIA (WRVU 10.83) Scheduled Orders Name Type Priority Associated Diagnoses Orde r Schedule EKG 12 Lead ECG STAT One Time for 1 Occurrences starting 07/29/2021 until 07/29/2021 Scheduled Procedures Name Priority Associated Diagnoses Date/Ti me ADJ.TISSUE TRANSFER, REARRANGEMENT, 10.1 TO 30 SQ.CM, GENITALIA (WRVU 10.83) Acquired buried penis 02/08/2024 8:30 AM EDT documented as of this encounter Procedures Procedure Name Priority Date/Time Associated Diagnosis Comments NM PHARMACOLOGIC STRESS CT COMPONENT Routine 07/30/2021 9:05 AM EST NUCLEAR PHARMACOLOGIC STRESS CARDIOLOGY Routine 07/30/2021 8:43 AM EST NM PHARMACOLOGIC STRESS AND REST MYOCARDIAL PERFUSION STAT 07/30/2021 8:40 AM EST HC TROPONIN T STAT 07/29/2021 8:07 PM EST EKG 12-LEAD STAT 07/29/2021 7:58 PM EST POCT GLUCOSE Routine 07/29/2021 6:48 PM EST EKG 12-LEAD Routine 07/29/2021 2:47 PM EST RAPID COVID-19 PCR ([facility]) STAT 07/29/2021 11:21 AM EST XR CHEST ONE VIEW STAT 07/29/2021 10: 50 AM EST HEMOGRAM STAT 07/29/2021 10:12 AM EST DIFFERENTIAL, AUTOMATED STAT 07/29/2021 10:12 AM EST D-DIMER, QUANTITATIVE STAT 07/29/2021 10:12 AM EST GOLD TUBE HOLD STAT 07/29/2021 10:12 AM EST BLUE TUBE HOLD STAT 07/29/2021 10:12 AM EST HC CBC,PLT & AUTO DIFF STAT 10:12 AM EST HC TROPONIN T STAT 07/29/2021 10:12 AM EST BASIC METABOLIC PANEL (NON-FASTING) STAT 07/29/2021 10:12 AM EST EKG 12-LEAD STAT 07/29/2021 10:05 AM EST documented in this encounter Results * NM Pharmacologic Stress CT Component (07/30/2021 9:05 AM EST) Anatomical Region Laterality Modality Nuclear Medicine Impressions 07/30/2021 10:15 AM EST No ischemia or scar. ?? Left ventricular function is normal. I have personally reviewed the image(s) and the resident's interpretation and agree with the findings, Jose Loya MD at 07/30/2021 10:15 AM Thank you for letting us participate in the care of this patient. ??If you are a health care provider and have any questions regarding this report, please contact the number below. ??For patients who have questions please contact the health career counselor that requested your imaging first. ? Narrative 07/30/2021 10:15 AM EST EXAMINATION: NM PHARMACOLOGIC STRESS AND REST MYOCARDIAL PERFUSION, NM PHARMACOLOGIC STRESS CT COMPONENT CLINICAL HISTORY: Chest pain TECHNIQUE: During rest, 8 mCi of technetium-99m sestamibi was administered intravenously. Approximately 20 minutes later, SPECT images of the heart were obtained with reconstruction in the short, vertical long and horizontal long axis. The patient then received regadenoson intravenously at a dose of 0.4 mg. 20 seconds later, 26 mCi of technetium-99m sestamibi was administered intravenously. Images of the heart were then again obtained with SPECT reconstruction. A low-dose CT scan was acquired for the purpose of attenuation correction COMPARISON: None FINDINGS: No fixed or reversible perfusion defects are present. Functional analysis: Myocardial function: There is normal wall thickening and wall motion. Left ventricular ejection fraction: 60 % (normal greater than than 50%). INCIDENTAL CT FINDINGS: Coronary artery calcifications are present. Post-operative changes of the stomach. Hepatic steatosis. Procedure Note Jose Loya MD - 07/30/2021 EXAMINATION: NM PHARMACOLOGIC STRESS AND REST MYOCARDIAL PERFUSION, NM PHARMACOLOGIC STRESS CT COMPONENT CLINICAL HISTORY: Chest pain TECHNIQUE: During rest, 8 mCi of technetium-99m sestamibi wasadministered intravenously. Approximately 20 minutes later, SPECT images of the heartwere obtained with reconstruction in the short, vertical long and horizontallong axis. The patient then received regadenoson intravenously at a dose of 0.4 mg.20 seconds later, 26 mCi of technetium-99m sestamibi was administered intravenously. Images of the heart were then again obtained with SPECT reconstruction. A low-dose CT scan was acquired for the purpose of attenuationcorrection COMPARISON: None FINDINGS: No fixed or reversible perfusion defects are present. Functional analysis: Myocardial function: There is normal wall thickening and wall motion. Left ventricular ejection fraction: 60 % (normal greater than than 50%). INCIDENTAL CT FINDINGS: Coronary artery calcifications are present. Post-operative changes of the stomach. Hepatic steatosis. IMPRESSION No ischemia or scar. Left ventricular function is normal. I have personally reviewed the image(s) and the resident's interpretationand agree with the findings, Jose Loya MD at 07/30/2021 10:15 AM Thank you for letting us participate in the care of this patient. If youare a health care provider and have any questions regarding this report,please contact the number below. For patients who have questions please contactthe health career counselor that requested your imaging first. Samson García MD [facility] ORDERABLES * Nuclear Pharmacologic Stress Cardiology (07/30/2021 8:43 AM EST) Anatomical Region Laterality Modality Other Samson García MD CARDIAC SERVICES ORD ERABLES * NM Pharmacologic Stress and Rest Myocardial Perfusion (07/30/2021 8:40 AM EST) Anatomical Region Laterality Modality Nuclear Medicine Impressions 07/30/2021 10:15 AM EST No ischemia or scar. ?? Left ventricular function is normal. I have personally reviewed the image(s) and the resident's interpretation and agree with the findings, Jose Loya MD at 07/30/2021 10:15 AM Thank you for letting us participate in the care of this patient. ??If you are a health care provider and have any questions regarding this report, please contact the number below. ??For patients who have questions please contact the health career counselor that requested your imaging first. ? Narrative 07/30/2021 10:15 AM EST EXAMINATION: NM PHARMACOLOGIC STRESS AND REST MYOCARDIAL PERFUSION, NM PHARMACOLOGIC STRESS CT COMPONENT CLINICAL HISTORY: Chest pain TECHNIQUE: During rest, 8 mCi of technetium-99m sestamibi was administered intravenously. Approximately 20 minutes later, SPECT images of the heart were obtained with reconstruction in the short, vertical long and horizontal long axis. The patient then received regadenoson intravenously at a dose of 0.4 mg. 20 seconds later, 26 mCi of technetium-99m sestamibi was administered intravenously. Images of the heart were then again obtained with SPECT reconstruction. A low-dose CT scan was acquired for the purpose of attenuation correction COMPARISON: None FINDINGS: No fixed or reversible perfusion defects are present. Functional analysis: Myocardial function: There is normal wall thickening and wall motion. Left ventricular ejection fraction: 60 % (normal greater than than 50%). INCIDENTAL CT FINDINGS: Coronary artery calcifications are present. Post-operative changes of the stomach. Hepatic steatosis. Procedure Note Jose Loya MD - 07/30/2021 EXAMINATION: NM PHARMACOLOGIC STRESS AND REST MYOCARDIAL PERFUSION, NM PHARMACOLOGIC STRESS CT COMPONENT CLINICAL HISTORY: Chest pain TECHNIQUE: During rest, 8 mCi of technetium-99m sestamibi wasadministered intravenously. Approximately 20 minutes later, SPECT images of the heartwere obtained with reconstruction in the short, vertical long and horizontallong axis. The patient then received regadenoson intravenously at a dose of 0.4 mg.20 seconds later, 26 mCi of technetium-99m sestamibi was administered intravenously. Images of the heart were then again obtained with SPECT reconstruction. A low-dose CT scan was acquired for the purpose of attenuationcorrection COMPARISON: None FINDINGS: No fixed or reversible perfusion defects are present. Functional analysis: Myocardial function: There is normal wall thickening and wall motion. Left ventricular ejection fraction: 60 % (normal greater than than 50%). INCIDENTAL CT FINDINGS: Coronary artery calcifications are present. Post-operative changes of the stomach. Hepatic steatosis. IMPRESSION No ischemia or scar. Left ventricular function is normal. I have personally reviewed the image(s) and the resident's interpretationand agree with the findings, Jose Loya MD at 07/30/2021 10:15 AM Thank you for letting us participate in the care of this patient. If youare a health care provider and have any questions regarding this report,please contact the number below. For patients who have questions please contactthe health career counselor that requested your imaging first. Samson García MD [facility] ORDERABLES * Troponin (07/29/2021 8:07 PM EST) Troponin-T <0.01 0.00 - 0.00 ng/mL [facility] Comment: The 99th percentile for Troponin T is less than 0.01 ng/mL, any detectable cTnT concentration using this assay should be considered elevated. According to the third universal definition of myocardial infarction the following criteria with a clinical presentation consistent with acute myocardial ischemia meets the diagnosis for a myocardial infarction (DC). Detection of a rise and/or fall of cTnT, with at least one value greater than the 99th percentile (> or = 0.01) and with at least one of the following ?? Symptoms of ischemia ?? New or presumed new significant DK-nxzqpib-E wave (ST-T) changes or new left bundle branch block (LBBB) ?? Development of pathologic Q waves in the ECG ?? Imaging evidence of new loss of viable myocardium or new regional wall motion abnormality ?? Identification of an intracoronary thrombus by angiography or autopsy Samples for cTnT testing should be obtained serially upon first assessment and again 3 to 6 hours later. If the clinical suspicion is high and previous samples have been negative an additional sample may be indicated. Reference: Third [place] Definition of Myocardial Infarction. Journal of the [place] [employer] 2012;60:1581-98 Blood 07/29/2021 8:07 PM EST 07/29/2021 8:07 PM EST Narrative Resulting Agency Comment Spec In Lab Samson García MD CHEMISTRY ORDERABLES Performing Organization Address [facility] Co de Phone Number [facility] [place] [phone] * EKG 12 Lead (07/29/2021 7:58 PM EST) Ventricular rate 92 BPM MUSE SYSTEM Atrial Rate 92 BPM MUSE SYSTEM P-R Interval 176 ms MUSE SYSTEM QRS Duration 96 ms MUSE SYSTEM Q-T Interval 354 ms MUSE SYSTEM QTC Calculated (Bezet) 437 ms MUSE SYSTEM Calculated P [place] 46 degrees MUSE SYSTEM Calculated R [place] -11 degrees MUSE SYSTEM Calculated T [place] 44 degrees MUSE SYSTEM INTERPRETATION Normal sinus rhythm Incomplete right bundle branch block Borderline ECG When compared with ECG of 29-JUL-2021 14:47, No significant change was found Confirmed by MD Barnes Danette ([id number]) on 07/30/2021 9:23:04 AM MUSE SYSTEM 07/29/2021 7:58 PM EST 07/30/2021 9:23 AM EST Alec Lopez MD ECG ORDERABLES MUSE SYSTEM * POCT Glucose (07/29/2021 6:48 PM EST) POC Glucose 146 65 - 199 mg/dL [facility] Comment: Supplemental ranges: <140 mg/dL before meals <180 mg/dL all other times of the day Blood 07/29/2021 6:48 PM EST 07/29/2021 6:48 PM EST Suzy Treviño MD POINT OF CARE TEST O RDERABLES Performing Organization Address [facility] de Phone Number [facility] [place] [address] * EKG 12 Lead (07/29/2021 2:47 PM EST) Ventricular rate 77 BPM MUSE SYSTEM Atrial Rate 77 BPM MUSE SYSTEM P-R Interval 174 ms MUSE SYSTEM QRS Duration 92 ms MUSE SYSTEM Q-T Interval 358 ms MUSE SYSTEM QTC Calculated (Bezet) 405 ms MUSE SYSTEM Calculated P [place] 57 degrees MUSE SYSTEM Calculated R [place] -8 degrees MUSE SYSTEM Calculated T [place] 41 degrees MUSE SYSTEM INTERPRETATION Normal sinus rhythm Normal ECG When compared with ECG of 29-JUL-2021 10:05, (unconfirmed) No significant change was found Confirmed by MD Christelle, Puneet Falk ([id number]) on 07/29/2021 4:26:06 PM MUSE SYSTEM 07/29/2021 2:47 PM EST 07/29/2021 4:26 PM EST Samson García MD ECG ORDERABLES Performing Organization Address [facility] Co de Phone Number MUSE SYSTEM * COVID-19 PCR (07/29/2021 11:21 AM EST) SARS-CoV-2 RNA PCR Not Detected Not Detected [facility] Comment: This result should be interpreted in combination with the clinical observations, patient history and epidemiological information. For testing of asymptomatic individuals, assay performance characteristics and clinical utility have not been evaluated. Testing for SARS-CoV-2 (Severe acute respiratory syndrome coronavirus 2, formerly known as 2019 novel coronavirus or 2019-nCoV) to aid in the diagnosis of COVID-19 is performed using the Simplexa COVID-19 Direct Assay by [employer] as authorized by the FDA issued Emergency Use Authorization (EUA). This assay is intended for In-vitro Diagnostic (IVD) use with nasopharyngeal swabs collected from individuals meeting the CDC criteria for testing. The assay is performed based on the instructions for use and additional guidance provided by the FDA. Testing is performed in the Microbiology Laboratory within the Department of Pathology and Laboratory Medicine at [facility], certified under the Clinical Laboratory Improvement Amendments of 1988 (CLIA), 42 U.S.C. section 263a, to perform high complexity tests. Assay performance has been verified according to clinical laboratory regulatory requirements. Test results are provided above. A result of Not Detected indicates that the viral RNA target is not present but does not preclude SARS-CoV-2 infection. False negative results may occur if a specimen is improperly collected, transported or handled; if amplification inhibitors are present; or if inadequate numbers of viral particles are present in the specimen. A result of Detected suggests a current or recent infection and the patient is presumed to be infected. Positive and negative predictive values for this test are highly dependent on disease prevalence. A result of Invalid indicates the inability to conclusively determine the presence or absence of SARS-CoV-2 RNA in the sample which can be due to a variety of factors. Recollection is recommended in the case of an invalid result. CDC COVID-19 criteria for testing on human specimens and clinical management guidance information are available at the CDC Coronavirus Disease 2019 (COVID-19) webpage under Information for Healthcare Professionals (https://www.cdc.gov/coronavirus/2019-ncov/hcp/index.html). Additional information about this and other EUA tests can be found in provider and patient fact sheets at the following FDA website: https://www.fda.gov/medical-devices/htdmcdigpzk-mhisjvu-2378-kgbka-63-kvfwhczbd- use-a yxadwueiixgwp-gbnibcq-amaaoqg/czxmu-lghybwsbrbq-oifa SARS-CoV-2 Source [employer] [place] [place] [facility] Nasopharyngeal Swab 07/29/19 11:21 AM EST 07/29/2021 1:39 PM EST Comment:Symptoms->COVID-19 S uspected Narrative Resulting Agency Comment Spec In Lab Samson García MD MICROBIOLOGY - GENER AL ORDERABLES [facility] [place] [address] * XR Chest One View (07/29/2021 10:50 AM EST) Anatomical Region Laterality Modality Chest N/A Digital Radiogra phy Impressions 07/29/2021 11:09 AM EST No acute cardiopulmonary process. I have personally reviewed the image(s) and the resident's interpretation and agree with the findings, Jose Loya MD at 07/29/2021 11:09 AM Thank you for letting us participate in the care of this patient. ??If you are a health care provider and have any questions regarding this report, please contact the number below. ??For patients who have questions please contact the health career counselor that requested your imaging first. ? Narrative 07/29/2021 11:09 AM EST EXAMINATION: XR CHEST ONE VIEW CLINICAL HISTORY: chest pain TECHNIQUE: 1 view of the chest COMPARISON: Chest radiograph 06/12/2017 FINDINGS: The lungs are clear. No pleural effusion or pneumothorax. The cardiomediastinal silhouette is normal. No acute osseous abnormality. Procedure Note Jose Loya MD - 07/29/2021 EXAMINATION: XR CHEST ONE VIEW CLINICAL HISTORY: chest pain TECHNIQUE: 1 view of the chest COMPARISON: Chest radiograph 06/12/2017 FINDINGS: The lungs are clear. No pleural effusion or pneumothorax. Thecardiomediastinal silhouette is normal. No acute osseous abnormality. IMPRESSION No acute cardiopulmonary process. I have personally reviewed the image(s) and the resident's interpretationand agree with the findings, Jose Loya MD at 07/29/2021 11:09 AM Thank you for letting us participate in the care of this patient. If youare a health care provider and have any questions regarding this report,please contact the number below. For patients who have questions please contactthe health career counselor that requested your imaging first. Samson García MD IMG DX ORDERABLES * (ABNORMAL) D-Dimer, Quantitative (07/29/2021 10:12 AM EST) D-Dimer, Quant 637(H) 0 - 500 FEU ng/ml [facility] Comment: The D-Dimer assay is used to aid in the diagnosis of deep vein thrombosis and pulmonary embolism. A normal D-Dimer result (less than 500 FEU ng/ml) has a negative predictive value of approximately 95% for the exclusion of acute PE and DVT when there is low to moderate pretest probability. To use age adjusted cutoff: Age x 10 ng/ml. Blood No Charge / Unknown 07/29/2021 10:12 AM EST 07/29/2021 10:27 AM EST Narrative Resulting Agency Comment Spec In Lab More Garcia MD HEMATOLOGY ORDERABLE S [facility] [place] [address] * Gold Tube HOLD (07/29/2021 10:12 AM EST) Pathologist [facility] Gold Hold Sample in lab. [facility] Blood Venous Draw / Unknown 07/29/2021 10:12 AM EST 07/29/2021 10:28 AM EST Samson García MD CHEMISTRY ORDERABLES Performing Organization Address City/[facility]/ZIP Co de Phone Number [facility] [place] [address] * Differential, Automated (07/29/2021 10:12 AM EST) Pathologist [facility] Neutrophils % 71.7 % [facility] Neutr Abs (ANC) 5.80 1.70 - 6.10 x10(3)/[facility] Lymphocytes % 20.4 % [facility] Lymphocytes Abs 1.6 0.9 - 3.2 x10(3)/[facility] Monocytes % 5.6 % [facility] Monocyte Abs 0.4 0.3 - 0.9 x10(3)/[facility] Eosinophils % 1.6 % [facility] Eosinophils Abs 0.1 0.0 - 0.4 x10(3)/[facility] Basophils % 0.2 % [facility] Basophils Abs 0.0 0.0 - 0.1 x10(3)/[facility] Immature Gran % 0.50 % [facility] Comment: Immature granulocytes(IG's)percentage and absolute count will include metamyelocytes, myelocytes, and promyelocytes. Blood smears from CBCs yielding IG's will be scanned manually for concordance. If this scan disagrees with the automated IG or if promyelocytes are noted, a manual differential will be performed. Shana Gran Abs 0.04 0.00 - 0.04 x10(3)/[facility] Blood 07/29/2021 10:1 2 AM EST 07/29/2021 10:27 AM EST Narrative Resulting Agency Comment Spec In Lab Samson García MD HEMATOLOGY ORDERABLE S [facility] [place] [address] * Hemogram (07/29/2021 10:12 AM EST) Pathologist [facility] WBC 8.1 4.0 - 9.5 x10(3)/[facility] RBC 5.05 4.58 - 5.54 x10(6)/[facility] Hemoglobin 15.2 13.7 - 16.5 g/dL [facility] [place]ematocrit 44.4 40.5 - 48.5 % [facility] MCV 87.9 82.9 - 93.1 [facility] MCH 30.1 27.5 - 32.1 pg [facility] MCHC 34.2 32.0 - 35.7 g/dL [facility] [place] Platelets 186 145 - 357 x10(3)/[facility] [place] RDWSD 39.8 36.0 - 45.0 [facility] RDWCV 12.4 11.4 - 13.8 % [facility] MPV 10.2 7.6 - 12.9 [facility] nRBC % Auto 0.0 % [facility] nRBC Abs Auto 0.000 0.000 - 0.000 x10(3)/[facility] Blood 07/29/2021 10:1 2 AM EST 07/29/2021 10:27 AM EST Narrative Resulting Agency Comment Spec In Lab Samson García MD HEMATOLOGY ORDERABLE S [facility] [place] [address] * Blue Tube HOLD (07/29/2021 10:12 AM EST) Blue Hold Sample in lab. [facility] Blood 07/29/2021 10:1 2 AM EST 07/29/2021 10:27 AM EST Samson García MD HEMATOLOGY ORDERABLE S [facility] [place] [address] * Troponin (07/29/2021 10:12 AM EST) Troponin-T <0.01 0.00 - 0.00 ng/mL [facility] Comment: The 99th percentile for Troponin T is less than 0.01 ng/mL, any detectable cTnT concentration using this assay should be considered elevated. According to the third universal definition of myocardial infarction the following criteria with a clinical presentation consistent with acute myocardial ischemia meets the diagnosis for a myocardial infarction (DC). Detection of a rise and/or fall of cTnT, with at least one value greater than the 99th percentile (> or = 0.01) and with at least one of the following ?? Symptoms of ischemia ?? New or presumed new significant EW-jgtqgoj-V wave (ST-T) changes or new left bundle branch block (LBBB) ?? Development of pathologic Q waves in the ECG ?? Imaging evidence of new loss of viable myocardium or new regional wall motion abnormality ?? Identification of an intracoronary thrombus by angiography or autopsy Samples for cTnT testing should be obtained serially upon first assessment and again 3 to 6 hours later. If the clinical suspicion is high and previous samples have been negative an additional sample may be indicated. Reference: Third [place] Definition of Myocardial Infarction. Journal of the [place] [employer] 2012;60:1581-98 Blood 07/29/2021 10:1 2 AM EST 07/29/2021 10:27 AM EST Narrative Resulting Agency Comment Spec In Lab Samson García MD CHEMISTRY ORDERABLES [facility] [place] [address] * (ABNORMAL) Basic Metabolic Panel (non-fasting) (07/29/2021 10:12 AM EST) Pathologist [facility] Glucose Lvl 188 65 - 199 mg/dL [facility] Comment:Diabetes: >=200 mg/d L plus symptoms BUN 27(H) 10 - 20 mg/dL [facility] Creatinine 1.19 0.80 - 1.50 mg/dL [facility] Sodium 133(L) 135 - 145 mmol/L [facility] Potassium 5.0 3.5 - 5.0 mmol/L [facility] Comment: Please note: ??Patients with WBC >100,000 may have falsely elevated Potassium levels. ??For accurate Potassium quantification in these patients send serum separator tube (gold top) for subsequent determinations. ??Contact the Clinical Chemistry Laboratory if there are any questions. Chloride 99 98 - 107 mmol/L [facility] CO2 20(L) 22 - 31 mmol/L [facility] Anion Gap 14 5 - 15 mmol/L [facility] Calcium 10.0 8.5 - 10.5 mg/dL [facility] Estimated GFR 64 >=60 mL/min/1. 73 m?? [facility] Comment: This patient? s estimated glomerular filtration rate (eGFR) is between 64 mL/min/1.73 m2 (patients with less muscle mass per kg body weight) and 74 mL/min/1.73 m2 (patients with more muscle mass per kg body weight) as determined by the CKD-EPI equation. Assessment of eGFR is not appropriate when creatinine concentrations are rapidly changing. For clinical decisions where creatinine clearance will affect therapy, a 24-hour urine creatinine clearance may be advised. Assignment of CKD stage 1 - 5 for patients with an eGFR near the transition point between stages may be based on clinical assessment of muscle mass and symptoms in addition to eGFR. Blood 07/29/2021 10:1 2 AM EST 07/29/2021 10:27 AM EST Narrative Resulting Agency Comment Spec In Lab Samson García MD CHEMISTRY ORDERABLES [facility] [place] [place] [address] * EKG 12 Lead (07/29/2021 10:05 AM EST) Ventricular rate 90 BPM MUSE SYSTEM Atrial Rate 90 BPM MUSE SYSTEM P-R Interval 162 ms MUSE SYSTEM QRS Duration 90 ms MUSE SYSTEM Q-T Interval 338 ms MUSE SYSTEM QTC Calculated (Bezet) 413 ms MUSE SYSTEM Calculated P [place] 50 degrees MUSE SYSTEM Calculated R [place] -11 degrees MUSE SYSTEM Calculated T [place] 43 degrees MUSE SYSTEM INTERPRETATION Normal sinus rhythm Normal ECG When compared with ECG of 29-JUL-2021 09:07, No significant change was found I personally reviewed the tracing and edited the fellows interpretation Confirmed by fellow Dae Solano ([id number]) on 07/29/2021 8:52:02 PM Confirmed by MD Jing, Wesley ([id number]) on 07/30/2021 8:01:40 AM MUSE SYSTEM 07/29/2021 10:0 5 AM EST 07/30/2021 8:01 AM EST Samson García MD ECG ORDERABLES MUSE SYSTEM documented in this encounter Visit Diagnoses Diagnosis Chest pain/[place] of uncertain etiology- Primary Chest pain, unspecified Chest pain Chest pain, unspecified 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 When ordered for pain, acetaminophen should be given even when other ordered pain medications are indicated. , Routine Given 07/30/2021 12:01 PM EST 1,000 mg alum-mag hydroxide-simeth (Maalox) (40 mg-40 mg-4 mg/mL) oral liquid 30 mL 30 mL, Oral, ONCE, 1 dose, On Mon07/29/21 at 2129, STAT Given 07/29/2021 9:33 PM EST 30 mLs aspirin chewable tablet 324 mg 324 mg, Oral, ONCE, 1 dose, On Mon07/29/21 at 1006, Unless allergic or given Prior To Admission (COOK APPRENTICE). If partial dose administered COOK APPRENTICE administer remaining MG for a total dose of 325 mg/day., STAT Given 07/29/2021 11:29 AM EST 324 mg aspirin chewable tablet 81 mg 81 mg, Oral, DAILY, First dose on Mon07/30/21 at 0900, Until Discontinued, Routine Given 07/30/2021 9:35 AM EST 81 mg gabapentin (Neurontin) capsule 800 mg 800 mg, Oral, 3 TIMES DAILY, First dose on Mon07/29/21 at 1500, Until Discontinued, Routine Given 07/30/2021 9:36 AM EST 800 mg Given 07/29/2021 9:33 PM EST 800 mg Given 07/29/2021 5:11 PM EST 800 mg pantoprazole EC (Protonix) tablet 40 mg 40 mg, Oral, 2 TIMES DAILY, First dose on Mon07/29/21 at 2100, Until Discontinued, DO NOT CRUSH OR OPEN, Routine Given 07/30/2021 9:36 AM EST 40 mg Given 07/29/2021 9:33 PM EST 40 mg regadenoson (Lexiscan) injection 0.4 mg 0.4 mg, Intravenous, ONCE, 1 dose, On Mon07/30/21 at 0841, Radiology Contrast, Routine Given 07/30/2021 8:35 AM EST 0.4 mg tamsulosin (Flomax) capsule 0.4 mg 0.4 mg, Oral, DAILY, First dose on Mon07/30/21 at 0900, Until Discontinued, DO NOT CRUSH OR OPEN, Routine Given 07/30/2021 10:09 AM EST 0.4 mg technetium (Tc-99m) sestamibi injection 0-30 mCi 0-30 mCi, Intravenous, 2 TIMES DAILY PRN, 2 doses, Starting on Mon07/30/21 at 0749, Until Mon07/30/21 at 0835, Per Protocol, Radiology Contrast, Routine Given 07/30/2021 8:35 AM EST 26 mCi Given 07/30/2021 7:45 AM EST 8 mCi venlafaxine XR (Effexor-XR) capsule 225 mg 225 mg, Oral, DAILY, First dose on Mon07/30/21 at 0900, Until Discontinued, Routine Given 07/30/2021 9:36 AM EST 225 mg documented in this encounter Active and Recently Administered Medications Times are shown in EST. Scheduled Medication Order 07/28/2021 07/29/2021 07/30/2021 alum-mag hydroxide-simeth (Maalox) (40 mg-40 mg-4 mg/mL) oral liquid 30 mL (COMPLETED) 30 mL, Oral, ONCE, 1 dose, On Kylee 07/29/21 at 2129, STAT 2132 (Given - Provider: More Aranda RN) aspirin chewable tablet 324 mg (COMPLETED) 324 mg, Oral, ONCE, 1 dose, On Kylee 07/29/21 at 1006, Unless allergic or given Prior To Admission (COOK APPRENTICE). If partial dose administered COOK APPRENTICE administer remaining MG for a total dose of 325 mg/day., STAT 1129 (Given - Provider: Aggie Vanessa RN) aspirin chewable tablet 81 mg 81 mg, Oral, DAILY, First dose on Mon07/30/21 at 0900, Until Discontinued, Routine 934 (Given - Provid er: Lizzie Beaulieu RN) gabapentin (Neurontin) capsule 800 mg 800 mg, Oral, 3 TIMES DAILY, First dose on Kylee 07/29/21 at 1500, Until Discontinued, Routine 1710 (Given - Provider: Elena Quintero RN)2132 (Given - Provider: More Aranda RN) 935 (Given - Provider: Lizzie Beaulieu, MATEO) ondansetron (pf) (Zofran) (2 mg/mL) injection 4 mg 4 mg, Intravenous, ONCE, 1 dose, On Mon07/29/21 at 1951, STAT 195 (Due) pantoprazole EC (Protonix) tablet 40 mg 40 mg, Oral, 2 TIMES DAILY, First dose on Kylee 07/29/21 at 2100, Until Discontinued, DO NOT CRUSH OR OPEN, Routine 2132 (Given - Provider: More Aranda RN) 935 (Given - Provider: Lizzie Beaulieu, MATEO) regadenoson (Lexiscan) injection 0.4 mg (COMPLETED) 0.4 mg, Intravenous, ONCE, 1 dose, On Mon07/30/21 at 0841, Radiology Contrast, Routine 08 (Given - Provid er: Robert Johansen - Comment: RAC) tamsulosin (Flomax) capsule 0.4 mg 0.4 mg, Oral, DAILY, First dose on Mon07/30/21 at 0900, Until Discontinued, DO NOT CRUSH OR OPEN, Routine 1009 (Given - Provid er: Lizzie Beaulieu RN) venlafaxine XR (Effexor-XR) capsule 225 mg 225 mg, Oral, DAILY, First dose on Mon07/30/21 at 0900, Until Discontinued, Routine 0936 (Given - Provid er: Lizzie Beaulieu RN) PRN Medication Order 07/28/2021 07/29/2021 07/30/2021 acetaminophen (Tylenol) tablet 1,000 mg 1,000 mg, Oral, EVERY 6 HOURS PRN, Starting on Kylee 07/29/21 at 1410, Until Mon07/30/21 at 1519, Pain, Maximum dose of acetaminophen is 4000 mg from all sources in 24 hours. When ordered for pain, acetaminophen should be given even when other ordered pain medications are indicated. , Routine 1201 (Given - Provid er: Lizzie Beaulieu RN) technetium (Tc-99m) sestamibi injection 0-30 mCi (COMPLETED) 0-30 mCi, Intravenous, 2 TIMES DAILY PRN, 2 doses, Starting on Mon07/30/21 at 0749, Until Mon07/30/21 at 0835, Per Protocol, Radiology Contrast, Routine 0745 (Given - Provid er: Fazal Zaman - Comment: IV: R-ACF)0835 (Given - Provider: Robert Johansen - Comment: RAC) documented in this encounter Additional Health Concerns Infection Onset Date Last Indicated Resolved Time Rule Out COVID-19 07/29/2021 07/29/2021 07/29/2021 3:34 PM EST documented as of this encounter Care Teams Supervisor Pipe Joints Relationship Specialty Start Date End Date Yung Horn MD [facility] [place] [address] PCP - General 11/22/16 documented as of this encounter
--- OUTSIDE RECORDS SUMMARY | 2024-01-19 15:12 | XMS_ITS | Encounter Summary ---
[place] [address] Care Team Providers Care Lithographic Proofer Name Role Phone Yung Horn MD Primary Care Provider [phone] Encounter Details Date Type Department Care Team (Late st Contact Info) Description 08/03/2023 [place] [address] Huong Apple Social History Tobacco Use Types Packs/Day Years [...] encounter Miscellaneous Notes * Telephone Encounter - Huong Apple - 08/03/2023 4:34 PM EST LMOM to ask the patient his CT questions and schedule a follow up with on the same day of the scan documented in this encounter Plan of Treatment Upcoming Encounters Date Type Department Care Team (Latest Contact Info) Description 02/01/2024 11:15 AM EDT Telephone Pre Admission Testing at [address] [phone] 02/07/2024 11:20 AM EDT [place] [address] Manoj Vinson MD [facility] [place] [address] 02/08/2024 8:30 AM EDT Hospital Encounter PACU at [address] [phone] Manoj Vinson MD [facility] [place] [address] 02/08/2024 8:30 AM EDT - 02/08/2024 11:00 AM EDT Surgery Main OR at [address] [phone] Manoj Vinson MD [facility] [place] [address] ADJ.TISSUE TRANSFER, REARRANGEMENT, 10.1 TO 30 SQ.CM, GENITALIA (WRVU 10.83) Scheduled Procedures Name Priority Associated Diagnoses Date/Ti me ADJ.TISSUE TRANSFER, REARRANGEMENT, 10.1 TO 30 SQ.CM, GENITALIA (WRVU 10.83) Acquired buried penis 02/08/2024 8:30 AM EDT documented as of this encounter Visit Diagnoses Not on filedocumented in this encounter Care Teams Lithographic Proofer Relationship Specialty Start Date End Date Yung Horn MD [address] [place] [address] PCP - General 11/22/16 documented as of this encounter
--- OUTSIDE RECORDS SUMMARY | 2024-01-19 15:12 | XMS_ITS | Encounter Summary ---
Author [facility] [place] [place] [address] Care Team Providers Care Dinkey Operator Name Role Phone Yung Horn MD Primary Care Provider [phone] Encounter Details Date Type Department Care Team (Late Contact Info) Description 09/20/2023 [place] [phone] Korey Ellis, RN Social History Tobacco Use Types Packs/Day Years [...] encounter Miscellaneous Notes * Telephone Encounter - Korey Ellis RN - 09/20/2023 9:24 AM EDT Unable to contact patient. Left message advising him that Dr. Vinson received his CT results and they can proceed with planning as discussed at his last appointment. Advised him that he will be getting a call from the executive secretary social welfare to schedule a follow-up appointment. documented in this encounter Plan of Treatment Upcoming Encounters Date Type Department Care Team (Latest Contact Info) Description 02/01/2024 11:15 AM EDT Telephone Pre Admission Testing at [address] [phone] 02/07/2024 11:20 AM EDT [place] [address] Manoj Vinson MD [facility] [place] [address] 02/08/2024 8:30 AM EDT Hospital Encounter PACU at [address] [phone] Manoj Vinson MD [facility] [address] 02/08/2024 8:30 AM EDT - 02/08/2024 11:00 AM EDT Surgery Main OR at [address] [phone] Manoj Vinson MD [facility] [place] [address] ADJ.TISSUE TRANSFER, REARRANGEMENT, 10.1 TO 30 SQ.CM, GENITALIA (WRVU 10.83) Scheduled Procedures Name Priority Associated Diagnoses Date/Ti me ADJ.TISSUE TRANSFER, REARRANGEMENT, 10.1 TO 30 SQ.CM, GENITALIA (WRVU 10.83) Acquired buried penis 02/08/2024 8:30 AM EDT documented as of this encounter Visit Diagnoses Not on filedocumented in this encounter Care Teams Dinkey Operator Relationship Specialty Start Date End Date Yung Horn MD [facility] [place] [address] PCP - General 11/22/16 documented as of this encounter
--- OUTSIDE RECORDS SUMMARY | 2024-01-19 15:12 | XMS_ITS | Encounter Summary ---
[place] [address] Care Team Providers Care Supervisor Graphite Name Role Phone Yung Horn MD Primary Care Provider [phone] Encounter Details Date Type Department Care Team (Latest Contact Info) Description 02/11/2021 4:02 PM EDT - 02/11/2021 11:59 PM EDT Hospital [place] [address] Discharge Disposition: Home Social History Tobacco Use [...] on file documented as of this encounter Medications at Time of Discharge Medication Sig Dispensed Refills Start Date End Date albuteroL (ProAir HFA) 90 mcg/actuation HFA Aerosol Inhaler Every 4 hours. 09/18/2020 dulaglutide (Trulicity) 0.75 mg/0.5 mL Pen Injector [...] by mouth 2 times daily (with meals). lisinopriL (Zestril) 20 mg Tablet Take by mouth. 07/02/2020 07/29/2021 pantoprazole EC (Protonix) 40 mg Tablet, Delayed Release (E.C.)Indications:NA SH (nonalcoholic steatohepatitis) TAKE 1 TABLET BY MOUTH TWICE DAILY BEFORE MEALS 60 tablet 1 12/08/2020 03/09/2021 magnesium oxide (MAG-OX) 400 mg (241.3 mg magnesium) Tablet TAKE 1 TABLET BY MOUTH DAILY 3 09/01/2018 07/29/2021 aspirin 81 mg Tablet, Chewable Take 81 mg by mouth Daily. 07/29/2021 Priztag ULTRA2 Kit TEST BLOOD GLUCOSE WITH ALL MEALS. DX: E11.9 0 04/05/2018 07/29/2021 multivitamin (THERAGRAN) Tablet Take 1 tablet by mouth daily. 07/29/2021 cholecalciferol, Vitamin D3, 2,000 unit TabletIndications:vi tamin D deficiency Take 1 tablet by mouth. Indications: Vitamin D Deficiency 07/29/2021 documented as of this encounter Plan of Treatment Upcoming Encounters Date Type Department Care Team (Latest Contact Info) Description 02/01/2024 11:15 AM EDT Telephone Pre Admission Testing at [address] [phone] 02/07/2024 11:20 AM EDT [place] [address] Manoj Vinson MD [facility] [place] [address] 02/08/2024 8:30 AM EDT Hospital Encounter PACU at [address] [phone] Manoj Vinson MD [facility] [place] [place] [address] 02/08/2024 8:30 AM EDT - 02/08/2024 11:00 AM EDT Surgery Main OR at [address] [phone] Manoj Vinson MD [facility] [place] [address] ADJ.TISSUE TRANSFER, REARRANGEMENT, 10.1 TO 30 SQ.CM, GENITALIA (WRVU 10.83) Scheduled Procedures Name Priority Associated Diagnoses Date/Ti me ADJ.TISSUE TRANSFER, REARRANGEMENT, 10.1 TO 30 SQ.CM, GENITALIA (WRVU 10.83) Acquired buried penis 02/08/2024 8:30 AM EDT documented as of this encounter Procedures Procedure Name Priority Date/Time Associated Diagnosis Comments SURGICAL PATHOLOGY REPORT Routine 02/11/2021 4:05 PM EDT documented in this encounter Results * Surgical Pathology Report (02/11/2021 4:05 PM EDT) Surgical Pathology Report [id number] ? Location: [facility] The signing pathologist has (i) examined the relevant preparation(s) for the specimen(s) and (ii) rendered or confirmed the diagnosis(es). . ?Surgical Pathology DIAGNOSIS CONSULTATION CASE Outside slide(s) labeled [id number], collection date 12/22/2020. 1 - Gallbladder, cholecystectomy: - Chronic cholecystitis and cholelithiasis. 2 - Liver, wedge ??biopsy: - Subcapsular liver tissue with cautery artifact and ?sinusoidal ??dilatation, negative for steatosis or inflammation. Electronically signed by: ?Leroy Sparks MD Verified: ??02/15/2021 14:34 ??Pathologist Performed at: ??-[facility] Dept. of Pathology, [place], [place] SPECIMEN(S) SUBMITTED CONSULTATION CASE A - 2 slide(s) labeled [id number], collection date 12/22/2020. [id number] Report to: [facility] Surgical Pathology Department [facility], [address], [address], [place] ??[address] CLINICAL INFORMATION _. SPECIMEN PROCESSING [facility] ([facility]) pathology slide(s) are reviewed. ??Refer to Diagnosis and Specimen Submitted for specific case information. For the full text of the [facility] report(s) please refer to Non-DH Documentation Pathology in the electronic health record (eDH). [facility] 02/11/2021 4:05 PM EDT Tatiana Call APRN PATHOLOGY/CYTOLOGY ORDERABLES Performing Organization Address City/State/[facility] Co de Phone Number [facility] [place] [address] documented in this encounter Visit Diagnoses Not on filedocumented in this encounter Care Teams Supervisor Graphite Relationship Specialty Start Date End Date Yung Horn MD [facility] [place] [address] PCP - General 11/22/16 documented as of this encounter
--- OUTSIDE RECORDS SUMMARY | 2024-01-19 15:12 | XMS_ITS | Encounter Summary ---
Author Organization [facility] [place] [address] Care Team Providers Care Sports Commentator Name Role Phone Yung Horn MD Primary Care Provider [phone] Reason for Visit * Auth/Cert Specialty Diagnoses / Procedures Referred By Marisela ramesh Referred To Contact Diagnoses Chest pain Procedures emergency obsvo Referral ID Status Reason Start Date Expiration Date Visits Re quested Visits Authorized [id number] 1 1 Encounter Details Date Type Department Care Team (Latest Contact Info) Description 07/29/2021 9:20 AM EST Office Visit Cardiology at [address] [place] [address] Zoya Finney T, MINING SPECULATOR [place] [address] Chest pain, unspecified type; LINTON (dyspnea on exertion); Coronary artery disease involving qawalangin coronary artery of qawalangin heart, unspecified whether angina present; Pre-operative cardiovascular examination; Acute thoracic back pain, unspecified back pain laterality Social History Tobacco Use Types Packs/Day Years [...] Sign Reading Time Taken Comments Blood Pressure 117/84 07/29/2021 8:57 AM EST Pulse 109 07/29/2021 8:57 AM EST Temperature - - Respiratory Rate - - Oxygen Saturation 95% 07/29/2021 8:57 AM EST Inhaled Oxygen Concentration - - Weight 114.8 kg (253 lb) 07/29/2021 8:57 AM EST Height 177.8 cm (5' 10) 07/29/2021 8:57 AM EST Body Mass Index 36.3 07/29/2021 8:57 AM EST documented in this encounter Progress Notes * Zoya Finney, MINING SPECULATOR - 07/29/2021 9:20 AM EST Images from the original note were not included. [facility] [place] [address] GENERAL CARDIOLOGY FOLLOW-UP Subjective: CC: Follow up of dyspnea on exertion HPI: Yung Betancur is a 65 y.o. male with chest pain/LINTON of unknown origin and non-obstructive CAD.Work up has included: ?? Cath 05/26: Mid LAD bridge, c/w no significant CAD. R heart pressures not assessed ?? Echo 08/29 ([place], [place]): Normal LV, mildly dilated RV, PASP 30-40 ?? Treadmill Stress Echo 01/26: baseline EF 60% without WMAs. No significant valve disease, RV intact but PASP 52. 6 METs/79% predicted max HR. No ischemia. ?? Echo 10/28: Normal LV, EF 63%, no WMAs, normal RV, PASP 22, mildly dilated RA, no sig valve disease Other PMH notable for: Sleep apnea Obesity, s/p gastric bypass ALVARO/HERR Type 2 DM He was last seen by Dr. Olsen on 10/08/20 at which time he continued to be bothered mostly by dyspneaon exertion. There was concern for pulmonary HTN given elevated PASP on echo in 2019, but echo was repeated at the visit with Dr. Olsen and PASP 22, so no further work up was indicated. He was advised to follow up with pulmonary and to incrementally increase his exercise. Today: He presents today for clearance prior to EGD. He reports that his dyspnea this morning is worse than usual and he is also experiencing new mid back pain. In general, his chronic symptoms (exertional dyspnea, mild chest pressure, and left arm numbness) have remained consistent in quality and severity since he last saw Dr. Olsen- occurring mostly with exertion (climbing stairs, carrying wood, pulling sled for ice fishing, doing house chores) and improving with rest and inhaler use. His d/c'd his lisinopril due to hypotension and lightheadedness, and his lightheadedness has improved since this change. Home BPs average 110s/60s. He reportedly saw Pulmonology at [facility] in the summer, but records are not available- he and his report that they said he was doing okay and that he had PFTs at the time, they also report that he was hospitalized last winter and PE was ruled out. He is using CPAP at night. He denies fevers, cough, wheezing, syncope, PND. He sleeps with 2-3 pillows chronically. He reportsmild left foot swelling. He has been abstinent of ETOH. Of note, his 32 year-old daughter recently- had not been taking her anti-hypertensive medications and of heart failure. REVIEW OF SYSTEMS: See above MEDICATIONS: Current Outpatient Medications Medication Sig Dispense Refill ??? albuteroL (ProAir HFA) 90 mcg/actuation HFA Aerosol Inhaler Every 4 hours. ??? tamsulosin (Flomax) 0.4 mg Capsule TAKE ONE CAPSULE BY MOUTH EVERY NIGHT AT BEDTIME ??? pantoprazole EC (Protonix) 40 mg Tablet, Delayed Release (E.C.) TAKE 1 TABLET BY MOUTH TWICE DAILY BEFORE MEALS 60 tablet 0 ??? dulaglutide (Trulicity) 0.75 mg/0.5 mL Pen Injector Inject 0.75 mg subcutaneously once a week. ??? Venlafaxine 225 mg Tablet Extended Rel 24 hr daily. 0 ??? glipiZIDE (GLUCOTROL) 5 mg Tablet 10 mg 0 ??? ferrous sulfate 324 mg (65 mg iron) Tablet, Delayed Release (E.C.) Take 324 mg by mouth. Indications: Iron Deficiency Anemia ??? acetaminophen (TYLENOL) 500 mg Tablet Take 2 tablets by mouth every 6 hours as needed for Pain. ??? gabapentin (NEURONTIN) 600 mg Tablet Take 800 mg by mouth 3 times daily. ??? metFORMIN (FORTAMET) 1,000 mg Tablet Extended Rel 24 hr Take 1,000 mg by mouth 2 times daily (with meals). No current facility-administered medications for this visit. Objective: VITAL SIGNS: BP 117/84 Pulse (!) 109 Ht 177.8 cm (5' 10) Wt 114.8 kg (253 lb) SpO2 95% BMI 36.30 kg/m?? Manual R arm BP: 120/72 Manual L arm BP: 124/72 PHYSICAL EXAM: General: Appears slightly uncomfortable, laying on stretcher, accompanying him Neck: No JVD noted, no cartoid bruits on auscultation Cardiovascular: Tachycardic, regular rhythm, S1/S2, no murmur, rub, or gallop Lungs: Slightly dyspneic at times during visit, clear to auscultation bilaterally Abdomen: Soft, non-tender, non-distended, active bowel sounds Peripheral vascular: Radial pulses +2 palpable and equal bilaterally, no lower extremity edema Skin: Warm, dry, intact Neurological: Alert and oriented ECG: I have personally reviewed today's ECG, which shows: HR 105, sinus tachycardia, mild intraventricular conduction delay, no acute ST abnormalities -- rhythm strip displays sinus tachycardia, no ectopy Assessment and Plan: ASSESSMENT / PLAN Dyspnea on exertion, unknown origin Non-obstructive CAD Pre-op cardiac examination Chronic exertional dyspnea, mild chest pressure, and left arm numbness are stable since last visit in 10/2020. No signs of heart failure. His work up thus far has included cardiac catheterization withnon-obstructive disease in mid and distal LAD, TTEs with normal LV/RV, pEF, no WMAs or valve disease, and with elevated PASP in the past but most recent with normal PASP, and stress echo which did not show evidence of ischemia. 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 Could consider beta bryan to assess whether it helps to improve symptoms if there is a cardiac component, but will hold off for now given history of lightheadedness and hypotension. Also re commended follow up with Pulmonology and considering a gradual exercise program to improve deconditioning. Given unremarkable cardiac work up thus far and no change in symptoms since last echo, I do not feel that any further work up is indicated at this time unless ED course today reveals a new cardiac diagnosis/problem. From the standpoint of surgery, he has no prohibitive CV condition. Mid back pain New severe pain, per his description. Physical exam is benign, BP normotensive without difference bilaterally. EKG with sinus tachycardia, HR in low 100s, no evidence of right heart strain. Low suspicion for PE or dissection, but patient reported that he would like to get this new pain evaluated and has decided to go to the ED for further evaluation. Follow up: as needed Zoya Finney, JATIN, NAILING MACHINE FEEDER-BC, MINING SPECULATOR [facility] Cardiovascular Medicine Pager [phone] 07/29/2021 documented in this encounter Plan of Treatment Upcoming Encounters Date Type Department Care Team (Latest Contact Info) Description 02/01/2024 11:15 AM EDT Telephone Pre Admission Testing at [address] [address] 02/07/2024 11:20 AM EDT Office [place] [address] Manoj Vinson MD [facility] [place] [address] 02/08/2024 8:30 AM EDT Hospital Encounter PACU at [address] [address] Manoj Vinson MD [facility] [place] [address] 02/08/2024 8:30 AM EDT - 02/08/2024 11:00 AM EDT Surgery Main OR at [address] [address] Manoj Vinson MD [facility] [place] [address] ADJ.TISSUE TRANSFER, REARRANGEMENT, 10.1 TO 30 SQ.CM, GENITALIA (WRVU 10.83) Scheduled Procedures Name Priority Associated Diagnoses Date/Ti nv ADJ.TISSUE TRANSFER, REARRANGEMENT, 10.1 TO 30 SQ.CM, GENITALIA (WRVU 10.83) Acquired buried penis 02/08/2024 8:30 AM EDT documented as of this encounter Procedures Procedure Name Priority Date/Time Associated Diagnosis Comments EKG 12-LEAD Routine 07/29/2021 9:07 AM EST Chest pain, unspecified type documented in this encounter Results * EKG 12 Lead (07/29/2021 9:07 AM EST) Ventricular rate 105 BPM MUSE SYSTEM Atrial Rate 105 BPM MUSE SYSTEM P-R Interval 164 ms MUSE SYSTEM QRS Duration 88 ms MUSE SYSTEM Q-T Interval 326 ms MUSE SYSTEM QTC Calculated (Bezet) 430 ms MUSE SYSTEM Calculated P [place] 67 degrees MUSE SYSTEM Calculated R [place] 0 degrees MUSE SYSTEM Calculated T [place] 55 degrees MUSE SYSTEM INTERPRETATION Sinus tachycardia Otherwise normal ECG When compared with ECG of 08-OCT-2020 09:20, Premature ventricular complexes are no longer Present Confirmed by MD Christelle, Puneet Falk ([id number]) on 07/29/2021 9:43:18 AM MUSE SYSTEM 07/29/2021 9:07 AM EST 07/29/2021 9:43 AM EST Zoya Finney MINING SPECULATOR ECG ORDERABLES MUSE SYSTEM documented in this encounter Visit Diagnoses Diagnosis Chest pain, unspecified type LINTON (dyspnea on exertion) Other dyspnea and respiratory abnormality Coronary artery disease involving qawalangin coronary artery of qawalangin heart, unspecified whether angina present Pre-operative cardiovascular examination Acute thoracic back pain, unspecified back pain laterality Acquired buried penis Other specified disorder of penis documented in this encounter Additional Health Concerns Infection Onset Date Last Indicated Resolved Time Rule Out COVID-19 07/29/2021 07/29/2021 07/29/2021 3:34 PM EST documented as of this encounter Care Teams Sports Commentator Relationship Specialty Start Date End Date Yung Horn MD [address] [place] [address] PCP - General 11/22/16 documented as of this encounter
--- OUTSIDE RECORDS SUMMARY | 2024-01-19 15:12 | XMS_ITS | Encounter Summary ---
[place] [address] Care Team Providers Care Buyer Grain Name Role Phone Yung Horn MD Primary Care Provider [phone] Reason for Referral * Diagnostic Test (Routine) - Closed Specialty Diagnoses / Procedures Referred By Contac t Referred To Contact Neurology Diagnoses Impingement syndrome of left shoulder Ching Murray PA [address] [place] [address] [facility] Neurology [address] [place] [phone] Referral ID Status Reason Start Date Expiration Date V isits Requested Visits Authorized [id number] Closed Test Only 01/06/2023 01/06/2024 1 1 Encounter Details Date Type Department Care Team (Late st Contact Info) Description 01/06/2023 Transcribe Orders eDH Incoming Referrals [phone] Ching Murray PA [address] [place] [address] Impingement syndrome of left shoulder Social History Tobacco Use Types Packs/Day Years [...] AM EDT Telephone Pre Admission Testing at [address] [address] 02/07/2024 11:20 AM EDT [place] [address] Manoj Vinson MD [facility] [place] [address] 02/08/2024 8:30 AM EDT Hospital Encounter PACU at [address] [address] Manoj Vinson MD [facility] [place] [address] 02/08/2024 8:30 AM EDT - 02/08/2024 11:00 AM EDT Surgery Main OR at [address] [address] Manoj Vinson MD [facility] [place] [address] ADJ.TISSUE TRANSFER, REARRANGEMENT, 10.1 TO 30 SQ.CM, GENITALIA (WRVU 10.83) Scheduled Procedures Name Priority Associated Diagnoses Date/Ti ga ADJ.TISSUE TRANSFER, REARRANGEMENT, 10.1 TO 30 SQ.CM, GENITALIA (WRVU 10.83) Acquired buried penis 02/08/2024 8:30 AM EDT Scheduled Referrals Name Type Priority Associated Diagnoses Orde r Schedule Referral to Neurology Outpatient Referral Routine Impingement syndrome of left shoulder Ordered: 01/06/2023 documented as of this encounter Visit Diagnoses Diagnosis Impingement syndrome of left shoulder Other affections of shoulder region, not elsewhere classified Acquired buried penis Other specified disorder of penis documented in this encounter Care Teams Buyer Grain Relationship Specialty Start Date End Date Yung Horn MD [address] [place] [address] [place] [phone] PCP - General 11/22/16 documented as of this encounter
--- OUTSIDE RECORDS SUMMARY | 2024-01-19 15:12 | XMS_ITS | Encounter Summary ---
[place] [address] Care Team Providers Care Operating Room Nurse Name Role Phone Yung Horn MD Primary Care Provider Reason for Referral * Consultation (Routine) - Duplicate Referral Specialty Diagnoses / Procedures Referred By Contac t Referred To Contact Neurology Diagnoses Impingement syndrome of left shoulder Ching Murray PA [address] [place] [address] [facility] Neurology [address] [place] [phone] Referral ID Status Reason Start Date Expiration Date Visits Requested Visits Authorized [id number] Duplicate Referral Consult, Test & Treat 03/14/2023 03/13/2024 1 1 Encounter Details Date Type Department Care Team (Late st Contact Info) Description 03/14/2023 Transcribe Orders eDH Incoming Referrals [phone] Ching Murray PA [address] [place] [phone] Impingement syndrome of left shoulder Social History [...] AM EDT Telephone Pre Admission Testing at [address] [address] 02/07/2024 11:20 AM EDT Office [place] [address] Manoj Vinson MD [facility] [place] [address] 02/08/2024 8:30 AM EDT Hospital Encounter PACU at [address] [address] Manoj Vinson MD [facility] [address] [place] [address] 02/08/2024 8:30 AM EDT - 02/08/2024 11:00 AM EDT Surgery Main OR at [address] [address] Manoj Vinson MD [facility] [place] [address] ADJ.TISSUE TRANSFER, REARRANGEMENT, 10.1 TO 30 SQ.CM, GENITALIA (WRVU 10.83) Scheduled Procedures Name Priority Associated Diagnoses Date/Ti ar ADJ.TISSUE TRANSFER, REARRANGEMENT, 10.1 TO 30 SQ.CM, GENITALIA (WRVU 10.83) Acquired buried penis 02/08/2024 8:30 AM EDT Scheduled Referrals Name Type Priority Associated Diagnoses Orde r Schedule Referral to Neurology Outpatient Referral Routine Impingement syndrome of left shoulder Ordered: 03/14/2023 documented as of this encounter Visit Diagnoses Diagnosis Impingement syndrome of left shoulder Other affections of shoulder region, not elsewhere classified Acquired buried penis Other specified disorder of penis documented in this encounter Care Teams Operating Room Nurse Relationship Specialty Start Date End Date Yung Horn MD [facility] [place] [address] PCP - General 11/22/16 documented as of this encounter
--- OUTSIDE RECORDS SUMMARY | 2024-01-19 15:12 | XMS_ITS | Encounter Summary ---
Author Organization [facility] [place] [address] Care Team Providers Care Market Relationship Manager Name Role Phone Yung Horn MD Primary Care Provider [phone] Encounter Details Date Type Department Care Team (Latest Contact Info) Description 07/25/2023 Travel Social History Tobacco Use Types Packs/Day Years [...] AM EDT Telephone Pre Admission Testing at [address] [phone] 02/07/2024 11:20 AM EDT [place] [address] Manoj Vinson MD [facility] [place] [address] 02/08/2024 8:30 AM EDT Hospital Encounter PACU at [address] [address] Manoj Vinson MD [facility] [place] [address] 02/08/2024 8:30 AM EDT - 02/08/2024 11:00 AM EDT Surgery Main OR at [address] [address] Manoj Vinson MD [facility] [place] [address] ADJ.TISSUE TRANSFER, REARRANGEMENT, 10.1 TO 30 SQ.CM, GENITALIA (WRVU 10.83) Scheduled Procedures Name Priority Associated Diagnoses Date/Ti me ADJ.TISSUE TRANSFER, REARRANGEMENT, 10.1 TO 30 SQ.CM, GENITALIA (WRVU 10.83) Acquired buried penis 02/08/2024 8:30 AM EDT documented as of this encounter Visit Diagnoses Not on filedocumented in this encounter Care Teams Market Relationship Manager Relationship Specialty Start Date End Date Yung Horn MD [address] [place], [place] [address] [address] PCP - General 11/22/16 documented as of this encounter
--- OUTSIDE RECORDS SUMMARY | 2024-01-19 15:12 | XMS_ITS | Encounter Summary ---
Author Organization [facility] [place] [address] Care Team Providers Care Intelligence Clerk Name Role Phone Yung Horn MD Primary Care Provider [phone] Encounter Details Date Type Department Care Team (Late st Contact Info) Description 05/05/2023 External [place] [phone] Derrick Anderson, [facility] [place] [address] Social History Tobacco Use Types Packs/Day Years [...] AM EDT Telephone Pre Admission Testing at [address] [address] 02/07/2024 11:20 AM EDT [place] [phone] Manoj Vinson MD [facility] [place] [address] 02/08/2024 8:30 AM EDT Hospital Encounter PACU at [address] [address] Manoj Vinson MD [facility] [place] [address] 02/08/2024 8:30 AM EDT - 02/08/2024 11:00 AM EDT Surgery Main OR at [address] [phone] Manoj Vinson MD [facility] [place] [address] ADJ.TISSUE TRANSFER, REARRANGEMENT, 10.1 TO 30 SQ.CM, GENITALIA (WRVU 10.83) Scheduled Procedures Name Priority Associated Diagnoses Date/Ti me ADJ.TISSUE TRANSFER, REARRANGEMENT, 10.1 TO 30 SQ.CM, GENITALIA (WRVU 10.83) Acquired buried penis 02/08/2024 8:30 AM EDT documented as of this encounter Procedures Procedure Name Priority Date/Time Associated Diagnosis Comments EMG SCAN Routine 05/05/2023 11:22 AM EDT documented in this encounter Results * Scan Doc: EMG (05/05/2023 11:22 AM EDT) Derrick Anderson DO MEDIA MGR SCAN EXT O RDR/RSLT documented in this encounter Visit Diagnoses Not on filedocumented in this encounter Care Teams Intelligence Clerk Relationship Specialty Start Date End Date Yung Horn MD [facility] [address] [place] [address] PCP - General 11/22/16 documented as of this encounter
--- OUTSIDE RECORDS SUMMARY | 2024-01-19 15:12 | XMS_ITS | Encounter Summary ---
[place] [address] Care Team Providers Care Cpc Name Role Phone Yung Horn MD Primary Care Provider [phone] Encounter Details Date Type Department Care Team (Late st Contact Info) Description 08/30/2023 [place] [phone] Korey Ellis, RN Social History Tobacco Use [...] Telephone Encounter - Korey Ellis RN - 08/30/2023 10:43 AM EST Copied from [facility] #[id number]. Topic: Specialty Dept CRMs - Generic Call >> Aug 30, 2023 10:31 AM Shayy Richardson wrote: Specialist: Manoj Vinson MD Relationship (if other than patient-full name): radiology Reason for Call: radiology is calling to state that the patient needs a creat order placed before his ct on 09/04. documented in this encounter Plan of Treatment Upcoming Encounters Date Type Department Care Team (Latest Contact Info) Description 02/01/2024 11:15 AM EDT Telephone Pre Admission Testing at [address] [address] 02/07/2024 11:20 AM EDT Office Visit Urology at [facility] [place] [address] Manoj Vinson MD [facility] [place] [address] 02/08/2024 8:30 AM EDT Hospital Encounter PACU at [address] [address] Manoj Vinson MD [facility] [place] [address] 02/08/2024 8:30 AM EDT - 02/08/2024 11:00 AM EDT Surgery Main OR at [address] [address] Manoj Vinson MD [facility] [place] [address] ADJ.TISSUE TRANSFER, REARRANGEMENT, 10.1 TO 30 SQ.CM, GENITALIA (WRVU 10.83) Scheduled Orders Name Type Priority Associated Diagnoses Orde r Schedule Creatinine Lab Routine Failure of penile implant, initial encounter Expected: 08/30/2023, Expires: 08/30/2024 Scheduled Procedures Name Priority Associated Diagnoses Date/Ti me ADJ.TISSUE TRANSFER, REARRANGEMENT, 10.1 TO 30 SQ.CM, GENITALIA (WRVU 10.83) Acquired buried penis 02/08/2024 8:30 AM EDT documented as of this encounter Visit Diagnoses Diagnosis Failure of penile implant, initial encounter Acquired buried penis Other specified disorder of penis documented in this encounter Care Teams Cpc Relationship Specialty Start Date End Date Yung Horn MD [place] [address] PCP - General 11/22/16 documented as of this encounter
--- OUTSIDE RECORDS SUMMARY | 2024-01-19 15:12 | XMS_ITS | Encounter Summary ---
Author Organization [facility] [place] [address] Care Team Providers Care Flight Mechanic Name Role Phone Yung Horn MD Primary Care Provider Encounter Details Date Type Department Care Team (Late st Contact Info) Description 11/08/2023 3:00 PM EDT [place] [phone] Manoj Vinson MD [facility] [place] [address] Failure of penile implant, subsequent encounter; Acquired buried penis Social History Tobacco Use Types Packs/Day Years [...] Sign Reading Time Taken Comments Blood Pressure 118/59 11/08/2023 2:46 PM EDT Pulse 92 11/08/2023 2:46 PM EDT Temperature - - Respiratory Rate - - Oxygen Saturation - - Inhaled Oxygen Concentration - - Weight 98 kg (216 lb) 11/08/2023 2:46 PM EDT Height 177.8 cm (5' 10) 11/08/2023 2:46 PM EDT Body Mass Index 30.99 11/08/2023 2:46 PM EDT documented in this encounter Progress Notes * Manoj Vinson MD - 11/08/2023 3:00 PM EDT S: I saw Mr. Betancur back in follow-up regarding his malfunctioning inflatable penile prosthesis. He is a very pleasant 67-year-old gentleman with a history of erectile dysfunction and Peyronie's disease. In 2014 he underwent placement of an AMS CX 700 inflatable penile prosthesis (15 cm with 4 cmbilaterally) and also underwent manual modeling for treatment of Peyronie's disease. Proximal measur ements were 13 cm bilaterally and distal measurements were 6 cm bilaterally. [place] was placed on the right in the retropubic space. Per the chart preop penile curvature was approximately 70 to 90degrees dorsal with leftward deviation. Surgery was uncomplicated and he was last seen 6 weeks following the procedure. At our last visit his concerns regarding this device included the followin) Malfunctioning penile prosthesis - he said this stopped working 6 months ago. He said the devicedoes not cycle when he attempts to pump it. 2) Penile length loss - he was concerned that his penis is shorter after implant surgery. He also noted that he has lost weight and is interested in options to treat this. 3) Penile curvature - He noted that the implant is curved 45 degrees to the left when erect and that this curvature was uncomfortable for his during penetration. Since our last visit he underwent CT to identify reservoir placement given that this was not documented in the surgical note. CT showed penile prosthesis reservoir in the right retropubic space. We reviewed these images together today. Today his reports that his curvature is 40 degrees dorsal and 40 degrees to the left. She also notes that this degree of curvature is uncomfortable. Other issues include a history of BPH with lower urinary tract symptoms for which he takes tamsulosin 0.8 mg daily. PSA was last checked in December 2022 and it was 0.5. Past medical history is notable for DM (last A1c 6.3), depression and anxiety, GERD, VIJAY, chronic pain, early-onset dementia. Past surgical history includes IPP placement, bilateral knee replacements, gastric bypass, shouldersurgeries x 3, bilateral open inguinal hernia repairs as a teenager, foot surgery, sternal scar tissue excision. He also has pending surgeries for a pinched nerve in his neck and his rotator cuff. From a social perspective, he quit smoking 40 years ago and has a 25 year history of smoking. Alcohol usage is denied, and per his report he previously drank heavily up until [address] drugusage is occasional cannabis. He is . He is retired. Family history is negative for any genitourinary cancers. He has cohesive bandages and adhesive tape allergies. His medications were reviewed and are consistent with those in the electronic medical record. A review of systems was performed and he has no pertinent positives, except for those listed in thehistory of present illness. O: On physical exam today he is in general a healthy, well-appearing man. He is awake, alert and oriented to person place and time. Mood and affect are normal. Gait: Normal and neurologically intact. No focal motor or sensory deficits are noted. Skin: Skin is warm and dry. There are no visible scars, rashes or lesions. HEENT: He is normocephalic and atraumatic. There is no scleral icterus. Pupils are equally round and reactive to light and accommodation. Extraocular motions intact. Trachea is midline. Lungs: No audible wheezing, normal respiratory effort. Chest rise is symmetric. Extremities: Extremities do not demonstrate clubbing, cyanosis or edema. His abdomen is soft, nontender, nondistended. There is no abdominal tenderness, guarding or rebound. No abdominal or inguinal hernias are seen. He has a large suprapubic fat pad obscuring his penis. His phallus is circumcised. There are no penile lesions or palpable plaques. He has a penile prosthesis in place. The device does not cycle. The wound is well- healed. His device is well-seated. He has a patent, orthotopic urinary meatus. Both testes are scrotally located. The bilateral cords are palpable and within normal limits. There are no testicular masses or nodules bilaterally. His scrotum is without edema or erythema. A digital rectal exam was deferred. A: This is a 67-year-old gentleman with a nonfunctional inflatable penile prosthesis in place and histories of erectile dysfunction and Peyronie's disease. He also has acquired buried penis. P: We again discussed his concerns regarding his inflatable penile prosthesis today. Regarding his mechanical malfunction, I again explained that this could be treated with removal and replacement surgery. We discussed this procedure today in detail and he is interested in proceeding. Regarding his concerns for lost penile length, I explained that lost penile length is not treatablewith removal and replacement penile prosthesis surgery. I explained that generally new devices tendto be about 2 cm longer than all devices, but that this does not result in a noticeable gain in penile length after the surgery. I also explained that we will attempt to treat his erect penile curvature in the operating room during removal and replacement surgery. I explained improving his curvature will be difficult given the previous history of inflatable penile prosthesis placement with marginal improvement of penile curvature as well as the presence of a surgical capsule surrounding the old device. We also discussed draining and retaining his current reservoir, which is safer than attempting to remove his old reservoir. We also discussed his penile length concerns in detail, and I explained that treatment of his acquired buried penis may improve external penile length as well as reduce hygiene issues. I explained the procedure today and he is also interested in proceeding with this as a separate procedure prior toinflatable penile prosthesis removal and replacement. We discussed the risks of the procedure, including bleeding, bruising, swelling, infection, incisional discomfort, cosmetic changes, seroma formation, recurrence, and potential need for further procedures. We also discussed the perioperative course and the postoperative recovery, as well as the need for adequate healing prior to inflatable penile prosthesis placement. Given his memory issues and dementia, I had his come in today for further explanation of the risks and benefits of these surgeries as well as the perioperative courses of the surgeries. He wishes to proceed with buried penis repair and my staff will contact him to get this scheduled. They bothexpressed understanding, and all questions were answered to their satisfaction. I will keep you updated as we move forward. Thank you very much for this kind referral. Please do not hesitate to contact me if you have any questions. documented in this encounter Plan of Treatment Upcoming Encounters Date Type Department Care Team (Latest Contact Info) Description 02/01/2024 11:15 AM EDT Telephone Pre Admission Testing at [address] [phone] 02/07/2024 11:20 AM EDT [place] [address] Manoj Vinson MD [facility] [place] [address] 02/08/2024 8:30 AM EDT Hospital Encounter PACU at [address] [phone] Manoj Vinson MD [facility] [place] [address] 02/08/2024 8:30 AM EDT - 02/08/2024 11:00 AM EDT Surgery Main OR at [address] [phone] Manoj Vinson MD [facility] [place] [address] ADJ.TISSUE TRANSFER, REARRANGEMENT, 10.1 TO 30 SQ.CM, GENITALIA (WRVU 10.83) Scheduled Procedures Name Priority Associated Diagnoses Date/Ti me ADJ.TISSUE TRANSFER, REARRANGEMENT, 10.1 TO 30 SQ.CM, GENITALIA (WRVU 10.83) Acquired buried penis 02/08/2024 8:30 AM EDT documented as of this encounter Visit Diagnoses Diagnosis Failure of penile implant, subsequent encounter Acquired buried penis Other specified disorder of penis Acquired buried penis Other specified disorder of penis documented in this encounter Care Teams Flight Mechanic Relationship Specialty Start Date End Date Yung Horn MD [facility] [place] [address] [place] [address] PCP - General 11/22/16 documented as of this encounter
--- OUTSIDE RECORDS SUMMARY | 2024-01-19 15:12 | XMS_ITS | Encounter Summary ---
[place] [address] Care Team Providers Care Chore Worker Name Role Phone Yung Horn MD Primary Care Provider [phone] Reason for Referral * Consultation (Routine) - Authorized Specialty Diagnoses / Procedures Referred By Contkelly ramesh Referred To Contact Urology Diagnoses Erectile dysfunction, unspecified erectile dysfunction type Other mechanical complication of implanted penile prosthesis, initial encounter [address] [id number] PL[address]ED [address] BAUMANN NOT FUNCTIONING Sherlyn Hudson APRN [address] [place] [address] [facility] [place] [address] Referral ID Status Reason Start Date Expiration Date Visits Requested Visits Authorized [id number] Authorized Consult, Test & Treat PCP Updated and/or Approved 3 06/04/2024 6 6 Encounter Details Date Type Department Care Team (Latest Contact Info) Description 06/05/2023 Transcribe Orders eDH Incoming Referrals [phone] Sherlyn Hudson APRN [address] [place], [place] [address] Erectile dysfunction, unspecified erectile dysfunction type; Other mechanical complication of implanted penile prosthesis, initial encounter Social History Tobacco Use Types Packs/Day Years [...] AM EDT Telephone Pre Admission Testing at [address] [phone] 02/07/2024 11:20 AM EDT [place] [address] Manoj Vinson MD [facility] [place] [address] 02/08/2024 8:30 AM EDT Hospital Encounter PACU at [address] [phone] Manoj Vinson MD [facility] [place] [address] 02/08/2024 8:30 AM EDT - 02/08/2024 11:00 AM EDT Surgery Main OR at [address] [phone] Manoj Vinson MD [facility] [place] [address] ADJ.TISSUE TRANSFER, REARRANGEMENT, 10.1 TO 30 SQ.CM, GENITALIA (WRVU 10.83) Scheduled Procedures Name Priority Associated Diagnoses Date/Ti me ADJ.TISSUE TRANSFER, REARRANGEMENT, 10.1 TO 30 SQ.CM, GENITALIA (WRVU 10.83) Acquired buried penis 02/08/2024 8:30 AM EDT Scheduled Referrals Name Type Priority Associated Diagnoses Orde r Schedule Referral to Urology Outpatient Referral Routine Erectile dysfunction, unspecified erectile dysfunction type Other mechanical complication of implanted penile prosthesis, initial encounter Ordered: 06/05/2023 documented as of this encounter Visit Diagnoses Diagnosis Erectile dysfunction, unspecified erectile dysfunction type Other mechanical complication of implanted penile prosthesis, initial encounter Acquired buried penis Other specified disorder of penis documented in this encounter Care Teams Chore Worker Relationship Specialty Start Date End Date Yung Horn MD [address] [place] [address] PCP - General 11/22/16 documented as of this encounter
--- OUTSIDE RECORDS SUMMARY | 2024-01-19 15:12 | XMS_ITS | Encounter Summary ---
[place] [address] Care Team Providers Care Carton And Can Supply Supervisor Name Role Phone Yung Horn MD Primary Care Provider [phone] Encounter Details Date Type Department Care Team (Late st Contact Info) Description 08/29/2023 Telephone Urology at [facility] [address] [place] [phone] Huong Apple Social History Tobacco Use Types [...] * Telephone Encounter - Huong Apple - 08/29/2023 2:52 PM EST LMOM to schedule f/u with after CT scan documented in this encounter Plan of Treatment Upcoming Encounters Date Type Department Care Team (Latest Contact Info) Description 02/01/2024 11:15 AM EDT Telephone Pre Admission Testing at [address] [phone] 02/07/2024 11:20 AM EDT [place] [phone] Manoj Vinson MD [facility] [place] [address] 02/08/2024 8:30 AM EDT Hospital Encounter PACU at [address] [phone] Manoj Vinson MD [facility] [place] [address] 02/08/2024 8:30 AM EDT - 02/08/2024 11:00 AM EDT Surgery Main OR at [address] [phone] Manoj Vinson MD [facility] [place] [address] ADJ.TISSUE TRANSFER, REARRANGEMENT, 10.1 TO 30 SQ.CM, GENITALIA (WRVU 10.83) Scheduled Procedures Name Priority Associated Diagnoses Date/Ti me ADJ.TISSUE TRANSFER, REARRANGEMENT, 10.1 TO 30 SQ.CM, GENITALIA (WRVU 10.83) Acquired buried penis 02/08/2024 8:30 AM EDT documented as of this encounter Visit Diagnoses Not on filedocumented in this encounter Care Teams Carton And Can Supply Supervisor Relationship Specialty Start Date End Date Yung Horn MD [address] [place] [address] PCP - General 11/22/16 documented as of this encounter
--- OUTSIDE RECORDS SUMMARY | 2024-01-19 15:12 | XMS_ITS | Encounter Summary ---
Author Organization [facility] [place] [address] Care Team Providers Care Python Consultant Name Role Phone Yung Horn MD Primary Care Provider [phone] Encounter Details Date Type Department Care Team (Late st Contact Info) Description 04/20/2022 12:05 AM EDT Ancillary Procedure [place] [address] Yung Horn MD [address] [place] [address] [place] [phone] Social History Tobacco Use Types Packs/Day Years [...] AM EDT Telephone Pre Admission Testing at [address] [phone] 02/07/2024 11:20 AM EDT Office [place] [phone] Manoj Vinson MD [facility] [place] [address] 02/08/2024 8:30 AM EDT Hospital Encounter PACU at [address] [phone] Manoj Vinson MD [facility] [place] [address] 02/08/2024 8:30 AM EDT - 02/08/2024 11:00 AM EDT Surgery Main OR at [address] [phone] Manoj Vinson MD [facility] [place] [address] ADJ.TISSUE TRANSFER, REARRANGEMENT, 10.1 TO 30 SQ.CM, GENITALIA (WRVU 10.83) Scheduled Procedures Name Priority Associated Diagnoses Date/Ti me ADJ.TISSUE TRANSFER, REARRANGEMENT, 10.1 TO 30 SQ.CM, GENITALIA (WRVU 10.83) Acquired buried penis 02/08/2024 8:30 AM EDT documented as of this encounter Procedures Procedure Name Priority Date/Time Associated Diagnosis Comments FILM LIBRARY STORAGE ONLY DX ELBOW Routine 04/20/2022 12:05 AM EDT documented in this encounter Results * Film Library- Storage Only DX Elbow (04/20/2022 12:05 AM EDT) Narrative RAD - 04/21/2022 2:23 AM EDT This exam is auto-finalizing. It's purpose is for storage only. Yung Hron MD IMG FILM LIBRARY ORD ERABLES [place], [place] documented in this encounter Visit Diagnoses Not on filedocumented in this encounter Care Teams Python Consultant Relationship Specialty Start Date End Date Yung Horn MD [address] [place] [address] PCP - General 11/22/16 documented as of this encounter
--- OUTSIDE RECORDS SUMMARY | 2024-01-19 15:12 | XMS_ITS | Encounter Summary ---
Author Organization [facility] [place] [address] Care Team Providers Care Creative Specialist Name Role Phone Yung Horn MD Primary Care Provider [phone] Encounter Details Date Type Department Care Team (Latest Contact Info) Description 05/05/2023 Travel Social History Tobacco Use Types Packs/Day [...] EDT Telephone Pre Admission Testing at [address] [phone] 02/07/2024 11:20 AM EDT [place] [address] Manoj Vinson MD [facility] [place] [address] 02/08/2024 8:30 AM EDT Hospital Encounter PACU at [address] [phone] Manoj Vinson MD [facility] [place] [address] 02/08/2024 8:30 AM EDT - 02/08/2024 11:00 AM EDT Surgery Main OR at [address] [phone] Manoj Vinson MD [facility] [place] [address] ADJ.TISSUE TRANSFER, REARRANGEMENT, 10.1 TO 30 SQ.CM, GENITALIA (WRVU 10.83) Scheduled Procedures Name Priority Associated Diagnoses Date/Ti me ADJ.TISSUE TRANSFER, REARRANGEMENT, 10.1 TO 30 SQ.CM, GENITALIA (WRVU 10.83) Acquired buried penis 02/08/2024 8:30 AM EDT documented as of this encounter Visit Diagnoses Not on filedocumented in this encounter Care Teams Creative Specialist Relationship Specialty Start Date End Date Yung Horn MD [address] [place], [place] [address] [place] [address] PCP - General 11/22/16 documented as of this encounter
--- OUTSIDE RECORDS SUMMARY | 2024-01-19 15:12 | XMS_ITS | Encounter Summary ---
[place] [address] Care Team Providers Care Materials Management Manager Name Role Phone Yung Horn MD Primary Care Provider [phone] Reason for Referral * Diagnostic Test (Routine) - Closed Specialty Diagnoses / Procedures Referred By Contac t Referred To Contact Radiology Diagnoses Malfunction of penile prosthesis, initial encounter Procedures CT Abdomen & Pelvis wo Contrast Manoj Vinson MD [facility] [place] [address] [facility] [place] [address] Referral ID Status Reason Start Date Expiration Date V isits Requested Visits Authorized [id number] Closed Specialty Service Requested 07/25/2023 01/22/2025 1 1 Reason for Visit * Diagnostic Test (Routine) - Closed Specialty Diagnoses / Procedures Referred By Contac t Referred To Contact Radiology Diagnoses Malfunction of penile prosthesis, initial encounter Procedures CT Abdomen & Pelvis wo Contrast Manoj Vinson MD [facility] [place] [address] [facility] [place] [address] Referral ID Status Reason Start Date Expiration Date V isits Requested Visits Authorized [id number] Closed Specialty Service Requested 07/25/2023 01/22/2025 1 1 Encounter Details Date Type Department Care Team (Latest Contact Info) Description 09/18/2023 2:20 PM EDT - 09/18/2023 11:59 PM EDT Hospital Encounter CT Scan [facility] [place] [phone] Manoj Vinson MD [facility] [place] [address] Malfunction of penile prosthesis, initial encounter Discharge Disposition: Home Social History Tobacco Use [...] Sig Dispensed Refills Start Date End Date pantoprazole EC (Protonix) 40 mg Tablet, Delayed Release (E.C.)Indications:BEAR H (nonalcoholic steatohepatitis) TAKE 1 TABLET BY MOUTH TWICE DAILY 60 tablet 1 10/08/2021 albuteroL (ProAir HFA) 90 mcg/actuation HFA Aerosol [...] mg (65 mg iron) Tablet, Delayed Release (E.C.)Indications:iro n deficiency anemia Take 324 mg by mouth. Indications: Iron Deficiency Anemia acetaminophen (TYLENOL) 500 mg Tablet Take 2 tablets by mouth every 6 hours as needed for Pain. 06/10/2015 gabapentin (NEURONTIN) 600 mg Tablet Take 800 mg by mouth 3 times daily. metFORMIN (FORTAMET) 1,000 mg Tablet Extended Rel 24 hr Take 1,000 mg by mouth 2 times daily (with meals). documented as of this encounter Plan of Treatment Upcoming Encounters Date Type Department Care Team (Latest Contact Info) Description 02/01/2024 11:15 AM EDT Telephone Pre Admission Testing at [address] [address] 02/07/2024 11:20 AM EDT [facility] [place] [address] Manoj Vinson MD [facility] [address] [place] [address] 02/08/2024 8:30 AM EDT Hospital Encounter PACU at [address] [address] Manoj Vinson MD [facility] [place] [address] 02/08/2024 8:30 AM EDT - 02/08/2024 11:00 AM EDT Surgery Main OR at [address] [address] Manoj Vinson MD [facility] [place] [address] ADJ.TISSUE TRANSFER, REARRANGEMENT, 10.1 TO 30 SQ.CM, GENITALIA (WRVU 10.83) Scheduled Procedures Name Priority Associated Diagnoses Date/Ti me ADJ.TISSUE TRANSFER, REARRANGEMENT, 10.1 TO 30 SQ.CM, GENITALIA (WRVU 10.83) Acquired buried penis 02/08/2024 8:30 AM EDT documented as of this encounter Procedures Procedure Name Priority Date/Time Associated Diagnosis Comments CT ABDOMEN AND PELVIS WO CONTRAST Routine 09/18/2023 2:43 PM EDT Malfunction of penile prosthesis, initial encounter documented in this encounter Results * CT Abdomen & Pelvis wo Contrast (09/18/2023 2:43 PM EDT) Anatomical Region Laterality Modality Abdomen, Pelvis Computed Tomogra phy Impressions 09/20/2023 8:26 AM EDT Penile prosthesis with decompressed reservoir in the right retropubic space. Thank you for letting us participate in the care of this patient. ??If you are a health care provider and have any questions regarding this report, please contact the number below. ??For patients who have questions please contact the health care professionals that requested your imaging first. ? Electronically signed by: Puneet Rodriguez MD, [facility] ([phone]), at 09/20/2023 8:26 AM Narrative 09/20/2023 8:26 AM EDT EXAMINATION: CT ABDOMEN AND PELVIS WO CONTRAST CLINICAL HISTORY: Abdominal abscess/infection suspected; Foreign body, tract Mulfunctioning IPP in place, evaluate reservoir location for surgical planning. T83.490A, Other mechanical complication of implanted penile prosthesis, initial encounter TECHNIQUE: Helical CT of the abdomen and pelvis without intravenous contrast. Oral contrast was not administered. Multiplanar reformatted images were generated. COMPARISON: Outside CT from 04/20/2022. FINDINGS: The absence of intravenous contrast limits the evaluation of solid viscera and vasculature. Lower chest: Normal. Liver: Normal size and attenuation. Bile ducts: Nondilated. Gallbladder: Surgically absent. Pancreas: Normal attenuation without ductal dilatation. Spleen: Normal size. Adrenals: Normal. Right kidney/ureter: No collecting system dilation or calculi. Stable simple cyst. Left kidney/ureter: No collecting system dilation or calculi. Urinary Bladder: Decompressed with mild circumferential wall thickening. Vasculature: No aortic aneurysm. Mild calcified plaque. Lymph Nodes: No enlarged lymph nodes. Bowel: Status post gastric bypass surgery. No dilated loops of bowel. Normal appendix. Peritoneum and retroperitoneum: No free fluid or loculated fluid collection. No pneumoperitoneum. No mesenteric inflammation. Abdominal wall/reproductive organs: Penile prosthesis in expected location with reservoir in the right retropubic space. The reservoir appears decompressed, new compared to 2022. The catheter extends along the right inguinal canal into the scrotum. Normal size of the prostate. Small bilateral fat-containing inguinal hernias. Osseous structures: Status post right femoral neck intramedullary nail and healed intertrochanteric fracture. No acute fracture or suspicious osseous lesion. Procedure Note Puneet Rodriguez MD - 09/20/2023 EXAMINATION: CT ABDOMEN AND PELVIS WO CONTRAST CLINICAL HISTORY: Abdominal abscess/infection suspected; Foreign body, GUtract Mulfunctioning IPP in place, evaluate reservoir location for surgicalplanning. T83.490A, Other mechanical complication of implanted penile prosthesis,initial encounter TECHNIQUE: Helical CT of the abdomen and pelvis without intravenouscontrast. Oral contrast was not administered. Multiplanar reformatted images were generated. COMPARISON: Outside CT from 04/20/2022. FINDINGS: The absence of intravenous contrast limits the evaluation of solid visceraand vasculature. Lower chest: Normal. Liver: Normal size and attenuation. Bile ducts: Nondilated. Gallbladder: Surgically absent. Pancreas: Normal attenuation without ductal dilatation. Spleen: Normal size. Adrenals: Normal. Right kidney/ureter: No collecting system dilation or calculi. Stablesimple cyst. Left kidney/ureter: No collecting system dilation or calculi. Urinary Bladder: Decompressed with mild circumferential wall thickening. Vasculature: No aortic aneurysm. Mild calcified plaque. Lymph Nodes: No enlarged lymph nodes. Bowel: Status post gastric bypass surgery. No dilated loops of bowel.Normal appendix. Peritoneum and retroperitoneum: No free fluid or loculated fluidcollection. No pneumoperitoneum. No mesenteric inflammation. Abdominal wall/reproductive organs: Penile prosthesis in expected locationwith reservoir in the right retropubic space. The reservoir appearsdecompressed, new compared to 2021. The catheter extends along the right inguinal canal intothe scrotum. Normal size of the prostate. Small bilateral fat-containinginguinal hernias. Osseous structures: Status post right femoral neck intramedullary [place] healed intertrochanteric fracture. No acute fracture or suspiciousosseous lesion. IMPRESSION Penile prosthesis with decompressed reservoir in the right retropubicspace. Thank you for letting us participate in the care of this patient. If youare a health care provider and have any questions regarding this report,please contact the number below. For patients who have questions please contactthe health care professionals that requested your imaging first. Electronically signed by: Puneet Rodriguez MD, [facility]([phone]), at 09/20/2023 8:26 AM Manoj Vinson MD IMG CT ORDERABLES documented in this encounter Visit Diagnoses Diagnosis Malfunction of penile prosthesis, initial encounter Acquired buried penis Other specified disorder of penis documented in this encounter Care Teams Materials Management Manager Relationship Specialty Start Date End Date Yung Horn MD [address] [place] [address] [place] [address] PCP - General 11/22/16 documented as of this encounter
--- OUTSIDE RECORDS SUMMARY | 2024-01-19 15:12 | XMS_ITS | Encounter Summary ---
Author Organization [facility] [place] [address] Care Team Providers Care Coater Operator Insulation Board Name Role Phone Yung Horn MD Primary Care Provider [phone] Reason for Visit * Reason Comments Medication Refill Encounter Details Date Type Department Care Team (Late st Contact Info) Description 03/07/2022 Ref[place] [phone] Tatiana Call APRN [facility] [place] [address] HERR (nonalcoholic steatohepatitis) Social History Tobacco Use [...] EDT Telephone Pre Admission Testing at [address] [address] 02/07/2024 11:20 AM EDT [place] [phone] Manoj Vinson MD [facility] UROLOGY [place], [place] [id number] 02/08/2024 8:30 AM EDT Hospital Encounter PACU at [address] [address] Manoj Vinson MD [facility] [place] [address] 02/08/2024 8:30 AM EDT - 02/08/2024 11:00 AM EDT Surgery Main OR at [address] [address] Manoj Vinson MD [facility] [place] [address] ADJ.TISSUE TRANSFER, REARRANGEMENT, 10.1 TO 30 SQ.CM, [...] penis documented in this encounter Care Teams Coater Operator Insulation Board Relationship Specialty Start Date End Date Yung Horn MD [address] [place] [address] PCP - General 11/22/16 documented as of this encounter
--- OUTSIDE RECORDS SUMMARY | 2024-01-19 15:12 | XMS_ITS | Encounter Summary ---
Author Organization [facility] [place] [address] Care Team Providers Care Seed And Fertilizer Specialist Name Role Phone Yung Horn MD Primary Care Provider [phone] Reason for Visit * Reason Comments Medication Refill Encounter Details Date Type Department Care Team (Late st Contact Info) Description 10/08/2021 [place] [phone] Tatiana Call APRN [facility] [place] [address] HERR (nonalcoholic steatohepatitis) Social History Tobacco Use [...] AM EDT Telephone Pre Admission Testing at [address] [address] 02/07/2024 11:20 AM EDT [place] [phone] Manoj Vinson MD [facility] UROLOGY [place], [place] [id number] 02/08/2024 8:30 AM EDT Hospital Encounter PACU at [address] [address] Manoj Vinson MD [facility] [place] [address] 02/08/2024 8:30 AM EDT - 02/08/2024 11:00 AM EDT Surgery Main OR at [address] [address] Manoj Vinson MD [facility] [place] [address] ADJ.TISSUE TRANSFER, REARRANGEMENT, 10.1 TO 30 SQ.CM, [...] penis documented in this encounter Care Teams Seed And Fertilizer Specialist Relationship Specialty Start Date End Date Yung Horn MD [address] [place] [address] PCP - General 11/22/16 documented as of this encounter
--- OUTSIDE RECORDS SUMMARY | 2024-01-19 15:12 | XMS_ITS | Encounter Summary ---
[place] [address] Care Team Providers Care Clinical Implementation Specialist Name Role Phone Yung Horn MD Primary Care Provider [phone] Reason for Referral * Diagnostic Test (Routine) - Closed Specialty Diagnoses / Procedures Referred By Marisela ramesh Referred To Contact Radiology Diagnoses Malfunction of penile prosthesis, initial encounter Procedures CT Abdomen & Pelvis wo Contrast Manoj Vinson MD [facility] [place] [address] [facility] [place] [address] Referral ID Status Reason Start Date Expiration Date V isits Requested Visits Authorized [id number] Closed Specialty Service Requested 07/25/2023 01/22/2025 1 1 Reason for Visit * Consultation (Routine) - Authorized Specialty Diagnoses / Procedures Referred By Marisela ramesh Referred To Contact Urology Diagnoses Erectile dysfunction, unspecified erectile dysfunction type Other mechanical complication of implanted penile prosthesis, initial encounter 3 [id number] PL[address] BAUMANN NOT FUNCTIONING Sherlyn Hudson, ROBBI [address] [place] [address] [facility] [place] [address] Referral ID Status Reason Start Date Expiration Date Visits Requested Visits Authorized [id number] Authorized Consult, Test & Treat PCP Updated and/or Approved 3 06/04/2024 6 6 Encounter Details Date Type Department Care Team (Late st Contact Info) Description 07/25/2023 11:00 AM EST Office Visit Urology at [facility] [place] [address] Manoj Vinson MD [facility] [place] [address] Malfunction of penile prosthesis, initial encounter; Acquired buried penis; Type 2 diabetes mellitus with other specified complication, without long-term current use of insulin Social History Tobacco Use Types Packs/Day Years [...] Sign Reading Time Taken Comments Blood Pressure 139/90 07/25/2023 10:47 AM EST Pulse 76 07/25/2023 10:47 AM EST Temperature - - Respiratory Rate - - Oxygen Saturation - - Inhaled Oxygen Concentration - - Weight - - Height - - Body Mass Index - - documented in this encounter Progress Notes * Manoj Vinson MD - 07/25/2023 11:00 AM EST S: I have been requested by Sherlyn Hudson to see Mr. Betancur for my opinion regarding his malfunctioning inflatable penile prosthesis. He is a very pleasant 67-year-old gentleman with a history of erectile dysfunction and Peyronie's disease. In 2014 he underwent placement of an AMS CX 700 inflatable penile prosthesis (15 cm with 4 cm bilaterally) and also underwent manual modeling for treatmentof Peyronie's disease. Proximal measurements were 13 cm bilaterally and distal measurements were 6 cm bilaterally. [place] was placed on the right in the retropubic space. Per the chart preop penile curvature was approximately 70 to 90 degrees dorsal with leftward deviation. Surgery was uncomplicated and he was last seen 6 weeks following the procedure. Today his concerns regarding this device include the followin) Malfunctioning penile prosthesis - he says this stopped working 6 months ago. He says the devicedoes not cycle when he attempts to pump it. 2) Penile length loss - he is concerned that his penis is shorter after implant surgery. He also notes that he has lost weight and is interested in options to treat this. 3) Penile curvature - He notes that the implant is curved 45 to the left when erect and that this curvature is uncomfortable for his during penetration. Other issues include a history of BPH with lower urinary tract symptoms for which he takes tamsulosin 0.8 mg daily. PSA was last checked in December 2022 and it was 0.5. Past medical history is notable for DM (last A1c 6.5), depression and anxiety, GERD, VIJAY, chronic pain, [...] also has acquired buried penis. P: We discussed his concerns regarding his inflatable penile prosthesis today. Regarding his mechanical malfunction, I explained that this could be treated with removal and replacement surgery. We discussed this procedure today in detail and he is interested in proceeding. He expressed concern regarding lost penile length and I explained that lost penile length is not treatable with removal and replacement penile prosthesis surgery. I explained that generally new devices tend to be about 2 cm longer than all devices, but that this does not result in a noticeable gainin penile length after the surgery. I also explained that we will attempt to treat his erect penilecurvature in the operating room during removal and replacement surgery. We also discussed draining and retaining his current reservoir, which is safer than attempting to remove his old reservoir. He wishes to proceed with inflatable penile prosthesis removal and replacement, and I recommended ordering a CT to evaluate his reservoir placement and for further surgical planning. He expressed understanding and wishes to proceed. I have ordered this and my staff will get this scheduled in the near future. I have also ordered a hemoglobin A1c to evaluate his diabetes control in anticipation of the surgery. We also discussed his penile length concerns in detail, and I explained that treatment of his acquired buried penis may improve external penile length as well as reduce hygiene issues. I explained the procedure today and he is also interested in proceeding with this as a separate procedure prior toinflatable penile prosthesis removal and replacement. Given his memory issues and dementia, I also recommended that we repeat this conversation, including further explanation of the risks and benefits of these surgeries as well as the perioperative courses of the surgeries, with his . He expressed understanding. Thus he will return to for his CT scan in the near future and I will also arrange follow-up at that time to discuss surgical planning as above with he and his together. All questions were answered to his satisfaction. I will keep you updated as we move forward. Thank you very much for this kind referral. Please do not hesitate to contact me if you have any questions. documented in this encounter Plan of Treatment Upcoming Encounters Date Type Department Care Team (Latest Contact Info) Description 02/01/2024 11:15 AM EDT Telephone Pre Admission Testing at [address] [address] 02/07/2024 11:20 AM EDT [place] [address] Manoj Vinson MD [facility] [place] [address] 02/08/2024 8:30 AM EDT Hospital Encounter PACU at [address] [address] Manoj Vinson MD [facility] [place] [address] 02/08/2024 8:30 AM EDT - 02/08/2024 11:00 AM EDT Surgery Main OR at [address] [address] Manoj Vinson MD [facility] [place] [address] ADJ.TISSUE TRANSFER, REARRANGEMENT, 10.1 TO 30 SQ.CM, GENITALIA (WRVU 10.83) Scheduled Procedures Name Priority Associated Diagnoses Date/Ti me ADJ.TISSUE TRANSFER, REARRANGEMENT, 10.1 TO 30 SQ.CM, GENITALIA (WRVU 10.83) Acquired buried penis 02/08/2024 8:30 AM EDT documented as of this encounter Procedures Procedure Name Priority Date/Time Associated Diagnosis Comments HC VENIPUNCTURE Routine 07/25/2023 12:01 PM EST Type 2 diabetes mellitus with other specified complication, without long-term current use of insulin documented in this encounter Results * CT [...] who have questions please contact the health menagerie caretaker that requested your imaging first. ? Electronically signed by: Puneet Rodriguez MD, [facility] ([phone]), at 09/20/2023 8:26 AM Narrative 09/20/2023 8:26 [...] The reservoir appears decompressed, new compared to 2021. The catheter extends [...] patients who have questions please contactthe health menagerie caretaker that requested your imaging first. Electronically signed by: Puneet Rodriguez MD, [facility]([phone]), at 09/20/2023 8:26 AM Authorizing Provider Result Jose Maria Vinson MD IMG CT ORDERABLES * (ABNORMAL) Hemoglobin A1c (07/25/2023 12:01 PM EST) Hemoglobin A1C 6.3(H) 4.3 - 5.6 % [facility] Comment: Reference Range: 4.3 - 5.6% 5.7 - 6.4% - Increased Risk of Developing Diabetes Mellitus >= 6.5% - Consistent with diagnosis of Diabetes Mellitus In the absence of hyperglycemia (i.e. plasma glucose > 200 mg/dL) or classic symptoms of hyperglycemia a repeat measurement of HbA1c should be performed on a separate sample to confirm the diagnosis. Diagnosis and Classification of Diabetes Mellitus, Diabetes Care 2013; 36: Suppl. 1, S67-74 Est Avg Gluc 134 mg/dL [facility] Blood 07/25/2023 12:0 1 PM EST 07/25/2023 12:06 PM EST Narrative Resulting Agency Comment Spec In Lab Authorizing Provider Result Jose Maria Vinson MD CHEMISTRY ORDERABLES [facility] [place] [address] documented in this encounter Visit Diagnoses Diagnosis Malfunction of penile prosthesis, initial encounter Acquired buried penis Other specified disorder of penis Type 2 diabetes mellitus with other specified complication, without long-term current use of insulin Malfunction of penile prosthesis, initial encounter Acquired buried penis Other specified disorder of penis documented in this encounter Care Teams Clinical Implementation Specialist Relationship Specialty Start Date End Date Yung Horn MD [address] [place] [address] PCP - General 11/22/16 documented as of this encounter
--- OUTSIDE RECORDS SUMMARY | 2024-01-19 15:12 | XMS_ITS | Encounter Summary ---
[place] [address] Care Team Providers Care Non Clinical Advisor Name Role Phone Yung Horn MD Primary Care Provider [phone] Reason for Visit * Diagnostic Test (Routine) - Closed Specialty Diagnoses / Procedures Referred By Contac t Referred To Contact Neurology Diagnoses Impingement syndrome of left shoulder Ching Murray PA [address] [place] [address] [facility] [address] [place] [address] Referral ID Status Reason Start Date Expiration Date V isits Requested Visits Authorized [id number] Closed Test Only 01/06/2023 01/06/2024 1 1 Encounter Details Date Type Department Care Team (Latest Contact Info) Description 05/05/2023 8:00 AM EDT Procedure [place] [address] Derrick Anderson, [facility] [address] Impingement syndrome of left shoulder Social History [...] on file documented as of this encounter Progress Notes * Derrick Anderson DO - 05/05/2023 8:00 AM EDT [facility] NERVE CONDUCTION AND ELECTROMYOGRAPHY EVALUATION - 05/05/23 BRIEF HISTROY: Yung Betancur is a 67 y.o. male referred for electrodiagnostic evaluation of upper extremity numbness by: Ching Murray PA [address] [place] [address]: Report scanned into EDH: 05/05/23 Focused History: Patient is a very pleasant 67-year-old gentleman that has been experiencing right greater than leftupper extremity numbness for an unspecified amount of time with superimposed injuries to his right shoulder, sternum, neck, wrist. Focal neurologic exam does demonstrate atrophy of the intrinsic handmuscles bilaterally below weakness with finger abduction on the right and sensory loss in a more distal fashion than in a purely focal nerve involvement. NCS/EMG: Bilateral median sensory amplitudes are significantly reduced with slowing of conduction velocitiesbut more prominent loss of amplitudes worse on the right. The right ulnar sensory studies were absent although it was felt that this could be technical due to tolerability. However the left ulnar sensory amplitudes are slightly reduced with preserved conduction velocities. Bilateral median distal latencies are prolonged worse on the right. Right ulnar motor studies are normal. Needle examination shows increased insertional activity with chronic reinnervation changes in the right FDI and EIP muscles but all other muscles sampled as part of a radiculopathy screen were normal. Patient did not tolerate needle examination of the right APB. As patient was getting lightheaded we elected not to evaluate the left upper extremity, again due to tolerability. IMPRESSION: This is an abnormal study. 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 carpal tunnel syndrome). A moderately severe left median mononeuropathy across the wrist (e.g. carpal tunnel syndrome). 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 Needle examination with abnormalities in the right EIP and right FDI muscles are consistent with a length-dependent polyneuropathy however we cannot entirely exclude a superimposed C8-T1 radiculopathy affecting the right upper extremity. Clinical correlation is advised. Derrick Anderson DO Neuromuscular Medicine Neurology Department [facility] spent a total of 30 Minutes in discussion/counseling related to ongoing medical problems, with 30minutes in same day chart and test review, ordering testing/drugs, coordination of care and documentation, excluding the time spent in performing electrodiagnostic studies. documented in this encounter Plan of Treatment Upcoming Encounters Date Type Department Care Team (Latest Contact Info) Description 02/01/2024 11:15 AM EDT Telephone Pre Admission Testing at [address] [address] 02/07/2024 11:20 AM EDT Office [place] [address] Manoj Vinson MD [facility] [place] [address] 02/08/2024 8:30 AM EDT Hospital Encounter PACU at [address] [address] Manoj Vinson MD [facility] [place] [address] 02/08/2024 8:30 AM EDT - 02/08/2024 11:00 AM EDT Surgery Main OR at [address] [address] Manoj Vinson MD [facility] [place] [address] ADJ.TISSUE TRANSFER, REARRANGEMENT, 10.1 TO 30 SQ.CM, [...] penis documented in this encounter Care Teams Non Clinical Advisor Relationship Specialty Start Date End Date Yung Horn MD [address] [place] [address] PCP - General 11/22/16 documented as of this encounter
--- OUTSIDE RECORDS SUMMARY | 2024-01-19 15:12 | XMS_ITS | Encounter Summary ---
Author Organization [facility] [place] [address] Care Team Providers Care Prosthetic Dentist Name Role Phone Yung Horn MD Primary Care Provider [phone] Reason for Visit * Reason Comments Medication Refill Encounter Details Date Type Department Care Team (Late st Contact Info) Description 07/09/2021 Refill [place] [phone] Tatiana Call APRN [facility] [place] [place] [address] HERR (nonalcoholic steatohepatitis) Social History Tobacco Use [...] AM EDT Telephone Pre Admission Testing at [address] [address] 02/07/2024 11:20 AM EDT [place] [phone] Manoj Vinson MD [facility] [place] [address] 02/08/2024 8:30 AM EDT Hospital Encounter PACU at [address] [address] Manoj Vinson MD [facility] [place] [address] 02/08/2024 8:30 AM EDT - 02/08/2024 11:00 AM EDT Surgery Main OR at [address] [address] Manoj Vinson MD [facility] [place] [address] ADJ.TISSUE TRANSFER, REARRANGEMENT, 10.1 TO 30 SQ.CM, [...] penis documented in this encounter Care Teams Prosthetic Dentist Relationship Specialty Start Date End Date Yung Horn MD [address] [place] [address] PCP - General 11/22/16 documented as of this encounter
--- OUTSIDE RECORDS SUMMARY | 2024-01-19 15:12 | XMS_ITS | Encounter Summary ---
Author Organization [facility] [place] [address] Care Team Providers Care Welder/Installer Name Role Phone Yung Horn MD Primary Care Provider [phone] Encounter Details Date Type Department Care Team (Latest Contact Info) Description 09/18/2023 Travel Social History Tobacco Use Types Packs/Day [...] AM EDT Telephone Pre Admission Testing at [address] [phone] 02/07/2024 11:20 AM EDT [place] [address] Manoj Vinson MD [facility] [place] [address] 02/08/2024 8:30 AM EDT Hospital Encounter PACU at [address] [address] Manoj Vinson MD [facility] [place] [address] 02/08/2024 8:30 AM EDT - 02/08/2024 11:00 AM EDT Surgery Main OR at [address] [address] Manoj Vinson MD [facility] [place] [address] ADJ.TISSUE TRANSFER, REARRANGEMENT, 10.1 TO 30 SQ.CM, GENITALIA (WRVU 10.83) Scheduled Procedures Name Priority Associated Diagnoses Date/Ti me ADJ.TISSUE TRANSFER, REARRANGEMENT, 10.1 TO 30 SQ.CM, GENITALIA (WRVU 10.83) Acquired buried penis 02/08/2024 8:30 AM EDT documented as of this encounter Visit Diagnoses Not on filedocumented in this encounter Care Teams Welder/Installer Relationship Specialty Start Date End Date Yung Horn MD [address] [place], [place] [address] [address] PCP - General 11/22/16 documented as of this encounter
--- OUTSIDE RECORDS SUMMARY | 2024-01-19 15:12 | XMS_ITS | Clinical Summary ---
Author Organization [facility] Address [facility] [place] [address] Care Team Providers Care Pbx Technician Name Role Phone Yung Horn MD Primary Care Provider [phone] Allergies Active Allergy Reactions Criticality Noted Date Comments Adhesive Tape Rash 04/23/2015 Bandages, Cohesive Rash High 06/09/2015 Medications Medication Sig Dispensed Refills Start Date End Date Status metFORMIN (FORTAMET) 1,000 mg Tablet Extended Rel 24 hr Take 1,000 mg by mouth 2 times daily (with meals). Active gabapentin (NEURONTIN) 600 mg Tablet Take 800 mg by mouth 3 times daily. Active acetaminophen (TYLENOL) 500 mg Tablet Take 2 tablets by mouth every 6 hours as needed for Pain. 06/10/2015 Active ferrous sulfate 324 mg (65 mg iron) Tablet, Delayed Release (E.C.)Indications :iron deficiency anemia Take 324 mg by mouth. Indications: Iron Deficiency Anemia Active glipiZIDE (GLUCOTROL) 5 mg Tablet 10 mg 0 03/31/2017 Active Venlafaxine 225 mg Tablet Extended Rel 24 hr daily. 0 2018 Active dulaglutide (Trulicity) 0.75 mg/0.5 mL Pen Injector Inject 0.75 mg subcutaneously once a week. Active albuteroL (ProAir HFA) 90 mcg/actuation HFA Aerosol Inhaler Every 4 hours. 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 Cath 05/26: Mid LAD bridge, o/w no significant CAD. R heart pressures not assessed ?? Echo 08/29 ([place], [place]): Normal LV, mildly dilated RV, PASP 30-40 ?? Treadmill Stress Echo 01/26: baseline EF 60% without WMAs. No significant valve disease, RV intact but PASP 52. 6 METs/79% predicted max HR. No ischemia. Peyronie's disease 02/18/2015 Male erectile dysfunction 02/18/2015 Encounters Date Type Department Care Team Description 11/10/2023 Orders Only Urology at [address] [address] Manoj Vinson MD Acquired buried penis 11/08/2023 3:00 PM EDT [place] [address] Manoj Vinson MD Failure of penile implant, subsequent encounter; Acquired buried penis 11/08/2023 Travel from Last 3 Months Social History Tobacco Use Types Packs/Day Years Used Date Smoking Tobacco: Former Smokeless Tobacco: Never Alcohol Use Standard Drinks/Week Comments Yes 12 (1 standard drink = 0.6 oz pu re alcohol) beer once in a while Sex and Gender Information Value Date Recorded Sex Assigned at Not on file Gender Identity Not on file Sexual Orientation Not on file Last Filed Vital Signs Vital Sign Reading Time Taken Comments Blood Pressure 118/59 11/08/2023 2:46 PM EDT Pulse 92 11/08/2023 2:46 PM EDT Temperature 36.7 ??C (98.1 ??F) 07/30/2021 11:[address] Respiratory Rate 14 07/30/2021 7:30 AM EST Oxygen Saturation 93% 07/30/2021 11:43 AM EST Inhaled Oxygen Concentration - - Weight 98 kg (216 lb) 11/08/2023 2:46 PM EDT Height 177.8 cm (5' 10) 11/08/2023 2:46 PM EDT Body Mass Index 30.99 11/08/2023 2:46 PM EDT Plan of Treatment Upcoming Encounters Date Type Department Care Team (Latest Contact Info) Description 02/01/2024 11:15 AM EDT Telephone Pre Admission Testing at [address] [place] [address] [address] 02/07/2024 11:20 AM EDT [place] [address] Manoj Vinson MD [facility] [place] [address] 02/08/2024 8:30 AM EDT Hospital Encounter PACU at [address] [address] Manoj Vinson MD [facility] [place] [address] 02/08/2024 8:30 AM EDT - 02/08/2024 11:00 AM EDT Surgery Main OR at [address] [address] Manoj Vinson MD [facility] [place] [address] ADJ.TISSUE TRANSFER, REARRANGEMENT, 10.1 TO 30 SQ.CM, GENITALIA (WRVU 10.83) Scheduled Procedures Name Priority Associated Diagnoses Date/Ti me ADJ.TISSUE TRANSFER, REARRANGEMENT, 10.1 TO 30 SQ.CM, GENITALIA (WRVU 10.83) Acquired buried penis 02/08/2024 8:30 AM EDT Health Maintenance Due Date Last Done Comments CT Colonography 1955 FIT DNA 1955 FIT 1955 Sigmoidoscopy 1955 Hepatitis C Screening 1974 Lipid Screening 1974 Tdap adult 11/30/1975 Tetanus vaccine 11/30/1975 Zoster vaccine (1 of 2) 2006 Advance Directive 11/30/2011 Colonoscopy 08/05/2020 08/05/2015, 08/05/2015 Colorectal Cancer Screening 08/05/2020 AAA Screen 2021 Pneumoccocal Vaccine: 65+ (1 of 1 - PCV) 2021 Covid-19 Vaccine (5 - 2022-2 4 season) 2023 04/20/2023, 04/14/2021, 10/20/2020, Additional history exists Influenza (Flu) vaccine (1 o f 1 - Influenza standard series) 03/10/2024 Sigmoidoscopy (10 year) with FIT yearly 08/05/2025 08/05/2015, 08/05/2015 Diabetes Screening (HgbA1C o r Glucose) 07/25/2026 07/25/2023, 07/29/2021, 01/12/2021, Additional history exists Medical Devices Implanted Type Area Retail Bakery Manager Device Identifier Shelf Expiration Date Model / Serial / Lot Prosthesis,Am s700ms,Kt,Acs ry ([id number]) - [id number] Implanted:Qty : 1 on 06/09/2015 by Ebenezer Patino III, MD at [facility] IMPLANTS N/A: Penis DO NOT USE [employer] - [id number] 04/28/2020 [id number] / / [id number] Prost,700,Cx, Mspump,15cmx1 2mm ([id number]) - [id number] Implanted:Qty : 1 on 06/09/2015 by Ebenezer Patino III, MD at [facility] IMPLANTS N/A: Penis DO NOT USE [employer] - [id number] 09/25/2016 [id number] / / [id number] Prosthesis,Sp ectracx-Lgx,4 cm ([id number]) - [id number] Implanted:Qty : 1 on 06/09/2015 by Ebenezer Patino III, MD at [facility] IMPLANTS N/A: Penis DO NOT USE [employer] - [id number] 02/24/2020 [id number] / / [id number] Prosthesis,70 0ms,Rsvr,65ml ([id number]) - [id number] Implanted:Qty : 1 on 06/09/2015 by Ebenezer Patino III, MD at [facility] IMPLANTS N/A: Penis DO NOT USE [employer] - [id number] 05/13/2017 [id number] / 0 / [id number] Procedures Procedure Name Priority Date/Time Associated Diagnosis Comments HC VENIPUNCTURE Routine 07/25/2023 12:01 PM EST Type 2 diabetes mellitus with other specified complication, without long-term current use of insulin COLONOSCOPY Routine 08/05/2015 2:52 PM EST from Last 3 Months or Most Recently Relevant to Health Maintenance Results * (ABNORMAL) Hemoglobin A1c (07/25/2023 12:01 PM EST) [facility] Hemoglobin A1C 6.3(H) 4.3 - 5.6 % [facility] Comment: Reference Range: 4.3 - [...] Mellitus, Diabetes Care 2013; 36: Suppl. 1, D17-09 Est Avg Gluc 134 mg/dL [facility] Blood 07/25/2023 12:0 1 PM EST 07/25/2023 12:06 PM EST Narrative Resulting Agency Comment Spec In Lab Manoj Vinson MD CHEMISTRY ORDERABLES [facility] [place] [address] * COLONOSCOPY (08/05/2015 2:52 PM EST) COLONOSCOPY [facility] Endoscopy Patient Name: Yung Betancur ? Procedure Date: 08/05/2015 2:52 PM ? Date of : 1955 ? Age: 59 ? Order #: [id number] ? Procedure: ? Colonoscopy Indications: ? Hematochezia Providers: ? Kwan Forte MD, Roosevelt Donnelly ? MATEO Hadley, Dee Dee Lopes, ? Statistical Programmer Referring : ?Boston Hernandez MD Medicines: ? Midazolam 1.5 mg IV, Fentanyl 75 ? micrograms IV Complications: ? No immediate complications. Procedure: ? Pre-Anesthesia Assessment: ? - Prior to the procedure, a History ? and Physical was performed, and ? patient medications, allergies and ? sensitivities were reviewed. The ? patient's tolerance of previous ? anesthesia was reviewed. ? - The risks and benefits of the ? procedure and the sedation options ? and risks were discussed with the ? patient. All questions were answered ? and informed consent was obtained. ? The procedure, indications, benefits, ? risks and alternatives were explained ? to the patient. Specifically ? discussed were potential ? complications including, but not ? limited to, bleeding, perforation, ? infection, missing a cancer, and ? adverse medication reactions. The ? patient was placed in the left ? lateral decubitus position, and a ? digital rectal exam was performed. ? The Colonoscope was inserted in the ? anus and under direct visualization, ? advanced to the terminal ileum. ? Careful inspection was made as the ? colonoscope was withdrawn. The ? colonoscopy was performed without ? difficulty. The patient tolerated the ? procedure well. The quality of the ? bowel preparation was good. ? Findings: ? The perianal exam findings include non-thrombosed ? internal hemorrhoids. ? The terminal ileum appeared normal. ? A 3 mm polyp was found in the transverse colon. The ? polyp was sessile. The polyp was removed with a cold ? biopsy forceps. Resection and retrieval were complete. ? Two sessile polyps were found in the transverse ? colon. The polyps were 3 to 4 mm in size. These ? polyps were removed with a cold snare. Resection and ? retrieval were complete. ? A 4 mm polyp was found in the sigmoid colon. The ? polyp was sessile. The polyp was removed with a cold ? snare. Resection and retrieval were complete. ? A few diverticula were found in the sigmoid colon. ? Impression: ?- Non-thrombosed internal hemorrhoids ? found on perianal exam. ? - The examined portion of the ileum ? was normal. ? - One 3 mm polyp in the transverse ? colon. Resected and retrieved. ? - Two 3 to 4 mm polyps in the ? transverse colon. Resected and ? retrieved. ? - One 4 mm polyp in the sigmoid ? colon. Resected and retrieved. ? - Few scattered sigmoid diverticuli Recommendation: ?- Repeat colonoscopy in 5 years for ? surveillance. ? -Stool softener, warm soak, local ? care. ? ____ Kwan Forte MD 08/05/2015 3:35 PM Number of Addenda: 0 Note Initiated On: 08/05/2015 2:52 PM PROVATION 08/05/2015 2:52 PM EST Boston Hernandez MD GENERAL SURGICAL ORD ERABLES PROVATION from Last 3 Months or Most Recently Relevant to Health Maintenance Advance Directives * Attempt Cardiopulmonary Resuscitation - Inpatient (Latest Code Status on File) Date Activated Date Inactivated Comments 07/29/2021 2:10 PM 07/30/2021 3:24 PM Question Answer Comments Code Status decision made by: Patient * Full Code Date Activated Date Inactivated Comments 05/26/2017 5:14 PM 05/28/2017 3:50 PM Question Answer Comments Does patient have capacity to make decision: Yes * Full Code Date Activated Date Inactivated Comments 06/09/2015 4:01 PM 06/10/2015 3:52 PM Question Answer Comments Does patient have capacity to make decision: Yes * Full Code Date Activated Date Inactivated Comments 06/09/2015 1:43 PM 06/09/2015 4:01 PM Question Answer Comments Does patient have capacity to make decision: Yes Care Teams Pbx Technician Relationship Specialty Start Date End Date Yung Horn MD [facility] [place] [address] PCP - General 11/22/16
--- OUTSIDE RECORDS SUMMARY | 2024-01-19 15:12 | XMS_ITS | Encounter Summary ---
Author Organization [facility] [place] [address] Care Team Providers Care Information Security Engineer Name Role Phone Yung Horn MD Primary Care Provider [phone] Reason for Visit * Reason Onset Date Comments Results 02/01/2021 Encounter Details Date Type Department Care Team (Late st Contact Info) Description 02/01/2021 Telephone [place] [phone] Nafisa Lo, RN Results Social History Tobacco Use Types Packs/Day Years [...] encounter Miscellaneous Notes * Telephone Encounter - Nafisa Lo RN - 02/01/2021 3:28 PM EDT Rec'd vmm from pt in follow up to visit earlier this month w/ Tatiana Call-JESIKA, inquiring whether provider has reviewed external path report. documented in this encounter Plan of Treatment Upcoming Encounters Date Type Department Care Team (Latest Contact Info) Description 02/01/2024 11:15 AM EDT Telephone Pre Admission Testing at [address] [phone] 02/07/2024 11:20 AM EDT [place] [address] Manoj Vinson MD [facility] [address] 02/08/2024 8:30 AM EDT Hospital Encounter PACU at [address] [address] Manoj Vinson MD [facility] [place] [address] 02/08/2024 8:30 AM EDT - 02/08/2024 11:00 AM EDT Surgery Main OR at [address] [phone] Manoj Vinson MD [facility] [place] [address] ADJ.TISSUE TRANSFER, REARRANGEMENT, 10.1 TO 30 SQ.CM, GENITALIA (WRVU 10.83) Scheduled Procedures Name Priority Associated Diagnoses Date/Ti me ADJ.TISSUE TRANSFER, REARRANGEMENT, 10.1 TO 30 SQ.CM, GENITALIA (WRVU 10.83) Acquired buried penis 02/08/2024 8:30 AM EDT documented as of this encounter Visit Diagnoses Not on filedocumented in this encounter Care Teams Information Security Engineer Relationship Specialty Start Date End Date Yung Horn MD [facility] [place] [address] PCP - General 11/22/16 documented as of this encounter
--- OUTSIDE RECORDS SUMMARY | 2024-01-19 15:12 | XMS_ITS | Encounter Summary ---
Author Organization [facility] [place] [address] Care Team Providers Care De Icer Name Role Phone Yung Horn MD Primary Care Provider [phone] Encounter Details Date Type Department Care Team (Latest Contact Info) Description 11/08/2023 Travel Social History Tobacco Use Types Packs/Day [...] AM EDT Telephone Pre Admission Testing at [address] [phone] 02/07/2024 11:20 AM EDT Office Visit [place] [address] Manoj Vinson MD [facility] [place] [address] 02/08/2024 8:30 AM EDT Hospital Encounter PACU at [address] [address] Manoj Vinson MD [facility] [place] [address] 02/08/2024 8:30 AM EDT - 02/08/2024 11:00 AM EDT Surgery Main OR at [address] [address] Manoj Vinson MD [facility] [place] [address] ADJ.TISSUE TRANSFER, REARRANGEMENT, 10.1 TO 30 SQ.CM, GENITALIA (WRVU 10.83) Scheduled Procedures Name Priority Associated Diagnoses Date/Ti me ADJ.TISSUE TRANSFER, REARRANGEMENT, 10.1 TO 30 SQ.CM, GENITALIA (WRVU 10.83) Acquired buried penis 02/08/2024 8:30 AM EDT documented as of this encounter Visit Diagnoses Not on filedocumented in this encounter Care Teams De Icer Relationship Specialty Start Date End Date Yung Horn MD [address] [place], [place] [address]lad[place] [address] PCP - General 11/22/16 documented as of this encounter
--- OUTSIDE RECORDS SUMMARY | 2024-01-19 15:12 | XMS_ITS | Encounter Summary ---
Author Organization [facility] [place] [address] Care Team Providers Care Job Placement Counselor Name Role Phone Yung Horn MD Primary Care Provider [phone] Encounter Details Date Type Department Care Team (Late st Contact Info) Description 11/10/2023 Orders Only Urology at [address] [phone] Manoj Vinson MD [facility] [place] [address] Acquired buried penis Social History Tobacco Use [...] AM EDT Telephone Pre Admission Testing at [address] [phone] 02/07/2024 11:20 AM EDT [place] [address] Manoj Vinson MD [facility] [place] [address] 02/08/2024 8:30 AM EDT Hospital Encounter PACU at [address] [phone] Manoj Vinson MD [facility] [place] [address] 02/08/2024 8:30 AM EDT - 02/08/2024 11:00 AM EDT Surgery Main OR at [address] [address] Manoj Vinson MD [facility] [place] [address] ADJ.TISSUE TRANSFER, REARRANGEMENT, 10.1 TO 30 SQ.CM, GENITALIA (WRVU 10.83) Scheduled Orders Name Type Priority Associated Diagnoses Orde r Schedule SURGICAL CASE REQUEST: ADJ.TISSUE TRANSFER, REARRANGEMENT, 10.1 TO 30 SQ.CM, GENITALIA (WRVU 10.83) Procedures Routine Acquired buried penis Ordered: 11/10/2023 Scheduled Procedures Name Priority Associated Diagnoses Date/Ti me ADJ.TISSUE TRANSFER, REARRANGEMENT, 10.1 TO 30 SQ.CM, GENITALIA (WRVU 10.83) Acquired buried penis 02/08/2024 8:30 AM EDT documented as of this encounter Visit Diagnoses Diagnosis Acquired buried penis Other specified disorder of penis Acquired buried penis Other specified disorder of penis documented in this encounter Care Teams Job Placement Counselor Relationship Specialty Start Date End Date Yung Horn [place] [address] PCP - General 11/22/16 documented as of this encounter
--- OUTSIDE RECORDS SUMMARY | 2024-01-19 15:12 | XMS_ITS | Encounter Summary ---
Author Organization [facility] [place] [address] Care Team Providers Care Cremator Name Role Phone Yung Horn MD Primary Care Provider [phone] Encounter Details Date Type Department Care Team (Late st Contact Info) Description 07/26/2021 Orders Only Cardiology at [address] [phone] Zoya Finney, ROUTE CLERK [facility] [place] [address] Chest pain, unspecified type (Primary Dx) Social History Tobacco Use Types Packs/Day Years [...] AM EDT Telephone Pre Admission Testing at [address] [phone] 02/07/2024 11:20 AM EDT Office Visit [place] [address] Manoj Vinson MD [facility] [address] [place] [id number] 02/08/2024 8:30 AM EDT Hospital Encounter PACU at [address] [phone] Manoj Vinson MD [facility] [place] [address] 02/08/2024 8:30 AM EDT - 02/08/2024 11:00 AM EDT Surgery Main OR at [address] [address] Manoj Vinson MD [facility] [place] [address] ADJ.TISSUE TRANSFER, REARRANGEMENT, 10.1 TO 30 SQ.CM, GENITALIA (WRVU 10.83) Scheduled Procedures Name Priority Associated Diagnoses Date/Ti me ADJ.TISSUE TRANSFER, REARRANGEMENT, 10.1 TO 30 SQ.CM, GENITALIA (WRVU 10.83) Acquired buried penis 02/08/2024 8:30 AM EDT documented as of this encounter Visit Diagnoses Diagnosis Chest pain, unspecified type- Primary Acquired buried penis Other specified disorder of penis documented in this encounter Care Teams Cremator Relationship Specialty Start Date End Date Yung Horn MD [address] [address] PCP - General 11/22/16 documented as of this encounter
--- OUTSIDE RECORDS SUMMARY | 2024-01-19 15:13 | XMS_ITS | Encounter Summary ---
Author Organization [facility] [place] [address] Care Team Providers Care Coremaking Machine Setter Name Role Phone Yung Horn MD Primary Care Provider [phone] Reason for Visit * Reason Comments Follow-up Encounter Details Date Type Department Care Team (Late st Contact Info) Description 09/17/2018 1:00 PM EDT Office [place] [address] Robert Ramos MD [facility] [address] GASTROENTER[place] [address] Obesity, unspecified classification, unspecified obesity type, unspecified whether serious comorbidity present Social History Tobacco Use Types Packs/Day Years [...] Sign Reading Time Taken Comments Blood Pressure 124/69 09/17/2018 12:36 PM EDT Pulse 80 09/17/2018 12:36 PM EDT Temperature - - Respiratory Rate - - Oxygen Saturation - - Inhaled Oxygen Concentration - - Weight 122.7 kg (270 lb 6.4 oz) 019 12:36 PM EDT w/ shoes Height 180.3 cm (5' 11) 09/17/2018 12: 36 PM EDT Body Mass Index 37.71 09/17/2018 12:36 PM EDT documented in this encounter Progress Notes * Robert Ramos MD - 09/17/2018 1:00 PM EDT HISTORY: Yung Betancur presents for consultation and further evaluation of dysphagia to solids, post 2009 [id number], and significant weight gain Was seen a few months ago Weight had been level for years Then stopped working, and developed bank financial difficulties, and legal issues Developed stress related poor eating habits and weight regain Was at 220, and then went up to 255, now 270 today Eats potato chips and sugar beverages Has an interest to consider pharmacotherapy, and we discussed seeing Amilcar Wagner He is questioning whether he can have a repeat surgery to decrease stoma size and pouch He has had an ability in the past to lose weight prior to previous laparoscopic surgery Has some solids dysphagia and some need to vomit out his ingesta. 2017 Barium swallow FINDINGS: The esophagus is normal in course and caliber, and is well distended on double contrast views. Esophageal peristalsis is normal. The esophageal mucosal pattern is normal. Patient is status post gastric bypass. Prompt gastric emptying. Gastrojejunal anastomosis patent. There is a very small sliding hiatal hernia. Esophageal peristalsis is normal. A small amount of gastroesophageal reflux was witnessed from the small herniated portion of the stomach into the distal esophagus. IMPRESSION 1. Small sliding hiatal hernia. 2. Small amount of gastroesophageal reflux from a small sliding hiatal hernia. S/P gastric bypass surgery. PMHx: see list below Patient Active Problem List Diagnosis Code ??? Peyronie's disease N48.6 ??? Male erectile dysfunction N52.9 ??? Chest pain R07.9 PHYSICAL EXAM: Most Recent Vitals: 09/17/18 1236 BP: 124/69 Pulse: 80 NAD IMPRESSION: Obesity, and diabetes, with much life stress. Had initial benefit from 375lbs falling to 220, and stable for years. More recently weight has risen. Has had solids dysphagia. His stoma is dilated 5.5 by 3.0 at last endoscopy. His pouch is enlarged. He should have further counseling with Dr. Amilcar Wagner for his diabetes and obesity. Needs to be in a strict diet management program His 2017 imaging showed a sliding hiatal hernia, and we discussed repeating the imaging Reviewed the issue of re-do versus endoscopic treatment, both with generally less than ideal outcomes. 18 of 25 minutes spent in direct [id number] counseling and the rest in taking a history. 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 Amilcar Wagner in Endocrinology or in [facility] Repeat barium swallow Continue acid suppression Robert Ramos MD Section of Gastroenterology and Hepatology documented in this encounter Plan of Treatment Upcoming Encounters Date Type Department Care Team (Latest Contact Info) Description 02/01/2024 11:15 AM EDT Telephone Pre Admission Testing at [address] [phone] 02/07/2024 11:20 AM EDT [place] [address] Manoj Vinson MD [facility] [place] [address] 02/08/2024 8:30 AM EDT Hospital Encounter PACU at [address] [phone] Manoj Vinson MD [facility] [place] [address] 02/08/2024 8:30 AM EDT - 02/08/2024 11:00 AM EDT Surgery Main OR at [address] [address] Manoj Vinson MD [facility] [place] [address] ADJ.TISSUE TRANSFER, REARRANGEMENT, 10.1 TO 30 SQ.CM, GENITALIA (WRVU 10.83) Scheduled Procedures Name Priority Associated Diagnoses Date/Ti me ADJ.TISSUE TRANSFER, REARRANGEMENT, 10.1 TO 30 SQ.CM, GENITALIA (WRVU 10.83) Acquired buried penis 02/08/2024 8:30 AM EDT documented as of this encounter Visit Diagnoses Diagnosis Obesity, unspecified classification, unspecified obesity type, unspecified whether serious comorbidity present Acquired buried penis Other specified disorder of penis documented in this encounter Care Teams Coremaking Machine Setter Relationship Specialty Start Date End Date Yung Horn MD [address] [place] [address] PCP - General 11/22/16 documented as of this encounter
--- OUTSIDE RECORDS SUMMARY | 2024-01-19 15:13 | XMS_ITS | Encounter Summary ---
Author Organization [facility] [place] [address] Care Team Providers Care Contact Centre Supervisor Name Role Phone Yung Horn MD Primary Care Provider [phone] Reason for Visit * Consultation (Urgent) - Closed Specialty Diagnoses / Procedures Referred By Contac t Referred To Contact Gastroenterology Diagnoses cirrhosis, elevated LFTs Procedures cons Yung Horn MD [address] [place] [address] [place] [address] [facility] [place] [address] Referral ID Status Reason Start Date Expiration Date Visits Re quested Visits Authorized [id number] Closed 07/06/2020 07/06/2021 1 1 Encounter Details Date Type Department Care Team (Latest Contact Info) Description 07/16/2020 10:00 AM EST Office [place] [address] Tatiana Munoz APRN [facility] [place] [address] Hepatic cirrhosis, unspecified hepatic cirrhosis type, unspecified whether ascites present; HERR (nonalcoholic steatohepatitis); Alcoholic steatohepatitis Social History Tobacco Use Types Packs/Day Years [...] Sign Reading Time Taken Comments Blood Pressure 113/55 07/16/2020 10:01 AM EST Pulse 98 07/16/2020 10:01 AM EST Temperature - - Respiratory Rate - - Oxygen Saturation 99% 07/16/2020 10:01 AM EST Inhaled Oxygen Concentration - - Weight 113.4 kg (250 lb) 07/16/2020 10:01 AM EST Height - - Body Mass Index 34.87 09/17/2018 12:36 PM EDT documented in this encounter Progress Notes * Tatiana Munoz APRN - 07/16/2020 10:00 AM EST Images from the original note were not included. HEPATOLOGY NEW PATIENT CONSULTATION Yung Betancur 1955 Y[address] INSPECTOR: TATIANA MUNOZ APRN PCP: Yung Horn MD Requesting Provider: REASON FOR CONSULTATION Elevated liver enzymes, hospital follow up, concern for cirrhosis HISTORY OF PRESENT ILLNESS Yung Betancur is a 64 y.o. 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 He was admitted at [facility] from 07/01- 07/04 and initially came into the hospital with chest tightnessand dyspnea. He had a cardiac workup with negative serial troponins, although his chest pain was relieved with nitroglycerin. When he was in the hospital his AST and ALT became elevated on 07/02 withALT of 266 and AST of 374 (initially were ALT 106, AST 166 at admission). He also developed fever on 07/02 up to 38.8 (101F). He had a CT with oral contrast of chest/abdomen/pelvis which showed biliary sludge, no e/o biliary ductal dilatation and severe fatty infiltration of his liver, no evidence of ascites. He was started on antibiotics on 07/02 for his fever and concern over acute cholecystitis or cholangitis and his fever reduced and liver enzymes improved. His total bilirubin peaked at 5.7 on 07/02 And was down to 3.0 on 07/04. He was told during that hospitalization that he had cirrhosis and that if he continued drinking he would within the year. When he was first admitted he was having difficuly breathing, but after having his gastric-jejunum anastomosis dilated he had an easier time breathing. He was also getting some acid reflux with improved with the dilation. ROS: Constitutional: no fatigue, fever, chills, no change in weight >10lbs in last 6 months Eye: no visual changes ENT: no URI symptoms Cardio: no chest pain, palpitations Resp: endorses SOB no cough GI: see HPI. No blood in stools, no nausea/vomitting : no dysuria Integumentary: no new rashes, no easy bruising Musculoskeletal: no new joint pains, swelling of ankles or legs Neuro: no new numbness, weakness in extremities PAST MEDICAL/SURGICAL HISTORY Diabetes Hypertension H/o Gastic Bipass - lost nearly 200 . Was 375 lbs prior to surgery. VIJAY- uses CPAP MEDICATIONS Outpatient Medications Marked as Taking for the 07/16/20 encounter (Office Visit) with Tatiana Munoz APRN Medication Sig Dispense Refill ??? pantoprazole EC (Protonix) 40 mg Tablet, Delayed Release (E.C.) TAKE ONE TABLET BY MOUTH TWICE A DAY BEFORE MEALS 60 tablet 11 ??? Venlafaxine 225 mg Tablet Extended Rel 24 hr 0 ??? aspirin 81 mg Tablet, Chewable Take 81 mg by mouth Daily. ??? glipiZIDE (GLUCOTROL) 5 mg Tablet 10 mg 0 ??? ferrous sulfate 324 mg (65 mg iron) Tablet, Delayed Release (E.C.) Take 324 mg by mouth. Indications: Iron Deficiency Anemia ??? cholecalciferol, Vitamin D3, 2,000 unit Tablet Take 1 tablet by mouth. Indications: Vitamin D Deficiency ??? gabapentin (NEURONTIN) 600 mg Tablet Take 800 mg by mouth 3 times daily. ??? metFORMIN (FORTAMET) 1,000 mg Tablet Extended Rel 24 hr Take 1,000 mg by mouth 2 times daily (with meals). ALLERGIES Allergies Allergen Reactions ??? Bandages, Cohesive Rash ??? Adhesive Tape Rash SOCIAL HISTORY Lives with , 5 dogs. 5 children, seperately. 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 Stopped drinking on 07/01 when admitted at [facility]. FAMILY HISTORY PHYSICAL EXAM Vitals: 07/16/20 1001 BP: 113/55 Pulse: 98 SpO2: 99% Weight: 113.4 kg (250 lb) Body mass index is 34.87 kg/m??. Gen: Overweight, sitting comfortably in no apparent distress. Skin: no spider angiomata, no palmar erythema, no jaundice. HEENT: Sclerae anicteric, pupils equal, round, react to light. Pharynx unremarkable. Neck is supple, no adenopathy, no thyromegaly. Chest is clear. Heart: Regular rate and rhythm. Normal S1, S2, no murmurs. Abdomen: Normal bowel sounds; soft, non distended. No obvious hepatosplenomegaly. No evidence of ascites Extremities: No edema. Neuro: alert and oriented x3, no asterixis or tremor. Lab Results Component Value Date WBC 7.0 06/12/2017 HGB 12.9 (L) 06/12/2017 HCT 39.6 (L) 06/12/2017 MCV 80.2 (L) 06/12/2017 PLATELET 176 06/12/2017 No results for input(s): INR in the last 168 hours. No results found for: ALT, AST, GGT, ALKPHOS, BILITOT Chemistry Component Value Date/Time NA 140 06/12/2017 1400 K 5.1 (H) 06/12/2017 1400 CL 102 06/12/2017 1400 CO2 24 06/12/2017 1400 BUN 23 (H) 06/12/2017 1400 CREATININE 1.06 06/12/2017 1400 Component Value Date/Time CALCIUM 8.7 06/12/2017 1400 Unable to get valid fibroscan readings initially as patient had eaten prior to visit. Patient returned for fibroscan 3 hours after last eating: Fibroscan Results: Median kPa: 8.7 kPa Mean IQR: 17 (goal is <30 %) Number of valid measurements: 20 (at least 10 required) Number of invalid measurements: 17 Predicted fibrosis stage: F2-3 CAP (dB/m): 395 Estimated steatosis grade: 3/3 % hepatocytes affected: >66% ASSESSMENT/PLAN Yung Betancur is a 64 y.o. 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 He was recently admitted with elevated liver enzymes and fever, possibly due to cholecystitis, although he did not have any convincing imaging, or possible alcoholic hepatitis. His liver tests improved with antibiotics, however this also cooresponds with increased time of sobriety since he wasn't drinking in the hospital, so it is difficult to say with certainty. His fibroscan today shows stage 2-3 fibrosis, which I suspect is due to a combination of ALVARO and HERR. His platelets were low when he was inpatient at [facility] suggesting cirrhosis, however his plateletsare now normal. His viral hepatitis workup is negative and he does not have iron overload. I will check for less common causes of elevated liver enzymes today as well. We discussed that with his history of gastric bipass, alcohol will have a greater effect on his liver and cause increased damage to the liver. It is of utmost importance that he continue to abstain from alcohol, which he states he is planning on doing. He has been sober for a 2 year period and feels like this will help him with this sobriety. We also discussed that treatment of HERR is based in lifestyle change, including glycemic control and weight loss. He has lost weight with his gastric bipass and with his is working on his diet. Plan: - Blood work today looking for other causes of liver disease. - Goal of continued abstinence from alcohol. - Follow up visit in 6 months with blood work prior. Tatiana Munoz APRN Section of Gastroenterology [place] [address] Copy: MD Doreen Chapman DR / [facility] [id number] Time spent reviewing records prior to this encounter: 15 minutes Time spent during encounter with patient including counselin minutes Time spent documenting encounter after office visit: 20 minutes Approximate total time devoted to this single encounter: 95 minutes This is exclusive of the time spent performing the Fibroscan procedure. documented in this encounter Plan of Treatment Upcoming Encounters Date Type Department Care Team (Latest Contact Info) Description 02/01/2024 11:15 AM EDT Telephone Pre Admission Testing at [address] [address] 02/07/2024 11:20 AM EDT [place] [address] Manoj Vinson MD [facility] [place] [address] 02/08/2024 8:30 AM EDT Hospital Encounter PACU at [address] [address] Manoj Vinson MD [facility] [place] [address] 02/08/2024 8:30 AM EDT - 02/08/2024 11:00 AM EDT Surgery Main OR at [address] [address] Manoj Vinson MD [facility] [place] [address] ADJ.TISSUE TRANSFER, REARRANGEMENT, 10.1 TO 30 SQ.CM, GENITALIA (WRVU 10.83) Scheduled Procedures Name Priority Associated Diagnoses Date/Ti me ADJ.TISSUE TRANSFER, REARRANGEMENT, 10.1 TO 30 SQ.CM, GENITALIA (WRVU 10.83) Acquired buried penis 02/08/2024 8:30 AM EDT documented as of this encounter Procedures Procedure Name Priority Date/Time Associated Diagnosis Comments HEMOGRAM Routine 07/16/2020 12:11 PM EST HERR (nonalcoholic steatohepatitis) Alcoholic steatohepatitis DIFFERENTIAL, AUTOMATED Routine 07/16/19 12:11 PM EST HERR (nonalcoholic steatohepatitis) Alcoholic steatohepatitis HC PCH MITOCHONDRIAL ANTIBODY Routine 07/16/2020 12:11 PM EST HERR (nonalcoholic steatohepatitis) Alcoholic steatohepatitis HC TISSUE TRANSGLUTAMINASE AB Routine 07/16/2020 12:11 PM EST HERR (nonalcoholic steatohepatitis) Alcoholic steatohepatitis HC CERULOPLASMIN Routine 07/16/2020 12:1 1 PM EST HERR (nonalcoholic steatohepatitis) Alcoholic steatohepatitis HC PCH SMOOTH MUSCLE AB, SERUM Routine 07/16/2020 12:11 PM EST HERR (nonalcoholic steatohepatitis) Alcoholic steatohepatitis HC PROTHROMBIN TIME Routine 07/16/2020 1 2:11 PM EST HERR (nonalcoholic steatohepatitis) Alcoholic steatohepatitis HC CBC,PLT & AUTO DIFF Routine 12:11 PM EST HERR (nonalcoholic steatohepatitis) Alcoholic steatohepatitis HC ANTINUCLEAR ANTIBODY,SERUM Routine 07/16/2020 12:11 PM EST HERR (nonalcoholic steatohepatitis) Alcoholic steatohepatitis HC VENIPUNCTURE Routine 07/16/2020 12:11 PM EST HERR (nonalcoholic steatohepatitis) Alcoholic steatohepatitis documented in this encounter Results * Differential, Automated (07/16/2020 12:11 PM EST) Neutrophils % 66.0 % [facility] Neutr Abs (ANC) 4.27 1.70 - 6.10 x10(3)/[facility] LABORATORY Lymphocytes % 25.0 % [facility] Lymphocytes Abs 1.6 0.9 - 3.2 x10(3)/[facility] LABORATORY Monocytes % 6.5 % [facility] Monocyte Abs 0.4 0.3 - 0.9 x10(3)/[facility] LABORATORY Eosinophils % 1.9 % [facility] Eosinophils Abs 0.1 0.0 - 0.4 x10(3)/[facility] LABORATORY Basophils % 0.3 % [facility] Basophils Abs 0.0 0.0 - 0.1 x10(3)/[facility] LABORATORY Immature Gran % 0.30 % [facility] Comment: Immature granulocytes(IG's)percentage and absolute count will include metamyelocytes, myelocytes, and promyelocytes. Blood smears from CBCs yielding IG's will be scanned manually for concordance. If this scan disagrees with the automated IG or if promyelocytes are noted, a manual differential will be performed. Shana Gran Abs 0.02 0.00 - 0.04 x10(3)/[facility] LABORATORY Blood specimen (specimen) 07/16/2020 12:11 PM EST 07/16/2020 12:20 PM EST Narrative Resulting Agency Comment Spec In Lab Tatiana Munoz APRN HEMATOLOGY ORDERAB LES Performing Organization Address City/State/[facility] Co de Phone Number [facility] [place] [address] * (ABNORMAL) Hemogram (07/16/2020 12:11 PM EST) WBC 6.5 4.0 - 9.5 x10(3)/[facility] LABORATORY RBC 4.40(L) 4.58 - 5.54 x10(6)/[facility] LAB[facility] Hemoglobin 13.5(L) 13.7 - 16.5 gm/dL [facility] Hematocrit 40.4(L) 40.5 - 48.5 % [facility] MCV 91.8 82.9 - 93.1 fL [facility] MCH 30.7 27.5 - 32.1 pg [facility] MCHC 33.4 32.0 - 35.7 gm/dL [facility] Platelets 234 145 - 357 x10(3)/[facility] RDWSD 40.6 36.0 - 45.0 [facility] RDWCV 11.9 11.4 - 13.8 % [facility] MPV 10.0 7.6 - 12.9 [facility] LABORATORY nRBC % Auto 0.0 % [facility] nRBC Abs Auto 0.000 0.000 - 0.000 x10(3)/mcL [facility] Blood specimen (specimen) 07/16/2020 12:11 PM EST 07/16/2020 12:20 PM EST Narrative Resulting Agency Comment Spec In Lab Tatiana Munoz APRN HEMATOLOGY ORDERAB LES Performing Organization Address [facility] Co de Phone Number [facility] [place] [address] * Mitochondrial Antibody, M2 (07/16/2020 12:11 PM EST) Mitochon Ab <0.1 <0.1 (Negative) U [facility] Comment: Test Performed by: [place] [address] Hoe Runner: Ebenezer Liang M.D. Ph.D.; CLIA# [id number] Blood specimen (specimen) 07/16/2020 12:11 PM EST 07/16/2020 4:19 PM EST Narrative Resulting Agency Comment Spec In Lab Tatiana Munoz APRN IMMUNOLOGY ORDERAB LES Performing Organization Address [facility] Co de Phone Number [facility] [place] [address] * Tissue transglutaminase, IgA (07/16/2020 12:11 PM EST) TTG IgA Ab 0.3 0.1 - 10.0 u/ml [facility] Comment: Negative = <7 U/mL Equivocal = 7-10 U/mL Positive = >10 U/mL Blood specimen (specimen) 07/16/2020 12:11 PM EST 07/16/2020 4:21 PM EST Narrative Resulting Agency Comment Spec In Lab Tatiana Munoz APRN IMMUNOLOGY ORDERAB LES Performing Organization Address City/[facility]/ZIP Co de Phone Number [facility] [place] [address] * BHARAT ([facility]/CGP/APD/NLH) (07/16/2020 12:11 PM EST) BHARAT Neg Neg [facility] Comment:Anti-nuclear antibod ies were tested using an indirect immunofluorescent assay. Blood specimen (specimen) 07/16/2020 12:11 PM EST 07/16/2020 4:21 PM EST Narrative Resulting Agency Comment Spec In Lab Tatiana Carlos Oneyda CULP IMMUNOLOGY ORDERAB LES Performing Organization Address [facility]/ZIP Co de Phone Number [facility] [place] [address] * Smooth Muscle Antibody (07/16/2020 12:11 PM EST) Sm Muscle Ab Negative Negative [facility] Comment: ADDITIONAL INFORMATION This test was developed and its performance characteristics determined by [facility] in a manner consistent with CLIA requirements. This test has not been cleared or approved by the U.S. Food and Drug Administration. Test Performed by: [facility] [place] [address] Hoe Runner: Ebenezer Liang M.D. Ph.D.; CLIA# [id number] Blood specimen (specimen) 07/16/2020 12:11 PM EST 07/16/2020 4:19 PM EST Narrative Resulting Agency Comment Spec In Lab Tatiana Carlos Oneyda CULP IMMUNOLOGY ORDERAB LES Performing Organization Address [facility]/ZIP Co de Phone Number [facility] [place] [address] * Ceruloplasmin (07/16/2020 12:11 PM EST) Ceruloplasmin 24.0 15.0 - 30.0 mg/dL [facility] Blood specimen (specimen) 07/16/2020 12:11 PM EST 07/16/2020 12:20 PM EST Narrative Resulting Agency Comment Spec In Lab Tatiana Carlos Oneyda CULP CHEMISTRY ORDERABL ES Performing Organization Address [facility] Phone Number [facility] [place] [address] * Prothrombin Time (07/16/2020 12:11 PM EST) PT 10.3 9.4 - 12.5 sec [facility] INR 0.9 [facility] Comment: An INR <2.0 indicates adequate procoagulant activity for hemostasis in most patients without underlying bleeding disorders, though the INR may not adequately reflect hemostatic capacity in patients with liver disease and synthetic impairment. The recommended target INR range for therapeutic anticoagulation is 2.0 ? 3.0 for most applications, though lower and higher ranges may be appropriate depending on clinical circumstances. Blood specimen (specimen) 07/16/2020 12:11 PM EST 07/16/2020 12:20 PM EST Narrative Resulting Agency Comment Spec In Lab Tatiana Munoz APRN HEMATOLOGY ORDERAB LES Performing Organization Address [facility] Phone Number [facility] [place] [address] * (ABNORMAL) Comprehensive metabolic panel (non-fasting) (07/16/2020 12:11 PM EST) Glucose Lvl 146 65 - 199 mg/dL [facility] Comment:Diabetes: >=200 mg/d L plus symptoms BUN 22(H) 10 - 20 mg/dL [facility] Creatinine 1.29 0.80 - 1.50 mg/dL [facility] Sodium 137 135 - 145 mmol/L [facility] Potassium 5.0 3.5 - 5.0 mmol/L [facility] Comment: Please note: ??Patients with WBC >100,000 may have falsely elevated Potassium levels. ??For accurate Potassium quantification in these patients send serum separator tube (gold top) for subsequent determinations. ??Contact the Clinical Chemistry Laboratory if there are any questions. Chloride 102 98 - 107 mmol/L [facility] CO2 24 22 - 31 mmol/L [facility] Anion Gap 11 5 - 15 mmol/L [facility] Calcium 9.3 8.5 - 10.5 mg/dL [facility] Total Protein 6.9 6.1 - 8.0 gm/dL [facility] Albumin 4.4 3.2 - 5.2 gm/dL [facility] AST 36 0 - 39 unit/L [facility] ALT 44 0 - 55 unit/L [facility] Alk Phos 91 40 - 130 unit/L [facility] Total Bilirubin 0.6 0.2 - 1.3 mg/dL [facility] Estimated GFR 59(L) >=60 mL/min/1. 73 m?? [facility] Comment: This patient? s estimated glomerular filtration rate (eGFR) is between 59 mL/min/1.73 m2 (patients with less muscle mass per kg body weight) and 68 mL/min/1.73 m2 (patients with more muscle mass per kg body weight) as determined by the CKD-EPI equation. Assessment of eGFR is not appropriate when creatinine concentrations are rapidly changing. For clinical decisions where creatinine clearance will affect therapy, a 24-hour urine creatinine clearance may be advised. Assignment of CKD stage 1 ? 5 for patients with an eGFR near the transition point between stages may be based on clinical assessment of muscle mass and symptoms in addition to eGFR. Blood specimen (specimen) 07/16/2020 12:11 PM EST 07/16/2020 12:20 PM EST Narrative Resulting Agency Comment Spec In Lab Tatiana Munoz APRN CHEMISTRY ORDERABL ES [facility] [place] [address] documented in this encounter Visit Diagnoses Diagnosis Hepatic cirrhosis, unspecified hepatic cirrhosis type, unspecified whether ascites present HERR (nonalcoholic steatohepatitis) Other chronic nonalcoholic liver disease Alcoholic steatohepatitis Acquired buried penis Other specified disorder of penis documented in this encounter Care Teams Contact Centre Supervisor Relationship Specialty Start Date End Date Yung Horn MD [address] [place] [address] PCP - General 11/22/16 documented as of this encounter
--- OUTSIDE RECORDS SUMMARY | 2024-01-19 15:13 | XMS_ITS | Encounter Summary ---
Author Organization [facility] [place] [address] Care Team Providers Care [address] Glassware Replacer Name Role Phone Yung Horn MD Primary Care Provider [phone] Reason for Visit * Auth/Cert Specialty Diagnoses / Procedures Referred By Contac t Referred To Contact Diagnoses nccp Procedures PRO UPPER GI ENDOSCOPY, DIAGNOSTIC EGD, UPPER GI ENDOSCOPY Referral ID Status Reason Start Date Expiration Date Visits Re quested Visits Authorized [id number] 1 1 Encounter Details Date Type Department Care Team (Latest Contact Info) Description 07/31/2017 1:00 PM EST Procedure visit [place] [address] Gastroesophageal reflux disease, esophagitis presence not specified Social History Tobacco Use Types Packs/Day Years [...] as of this encounter Progress Notes * Reji Aaron RN - 07/31/2017 1:00 PM EST 12:36pm Seth capsule deployed following EGD with Dr. Mackenzie Placed at 34cm from incisors without difficulty. Study being performed off acid suppression therapy. First PH- 5.8 Seth teaching completed with patient and prior to procedures. Patient verbalized understanding of Seth procedure and use of the sales inspector. documented in this encounter Plan of Treatment Upcoming Encounters Date Type Department Care Team (Latest Contact Info) Description 02/01/2024 11:15 AM EDT Telephone Pre Admission Testing at [address] [address] 02/07/2024 11:20 AM EDT Office [place] [address] Manoj Vinson MD [facility] [place] [place] [address] 02/08/2024 8:30 AM EDT Hospital Encounter PACU at [address] [address] Manoj Vinson MD [facility] [place] [address] 02/08/2024 8:30 AM EDT - 02/08/2024 11:00 AM EDT Surgery Main OR at [address] [address] Manoj Vinson MD [facility] [place] [address] ADJ.TISSUE TRANSFER, REARRANGEMENT, 10.1 TO 30 SQ.CM, GENITALIA (WRVU 10.83) Scheduled Procedures Name Priority Associated Diagnoses Date/Ti oh ADJ.TISSUE TRANSFER, REARRANGEMENT, 10.1 TO 30 SQ.CM, GENITALIA (WRVU 10.83) Acquired buried penis 02/08/2024 8:30 AM EDT documented as of this encounter Visit Diagnoses Diagnosis Gastroesophageal reflux disease, esophagitis presence not specified 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
--- OUTSIDE RECORDS SUMMARY | 2024-01-19 15:13 | XMS_ITS | Encounter Summary ---
[facility] [place] [place] [address] Care Team Providers Care Supervisor Poultry Hatchery Name Role Phone Yung Horn MD Primary Care Provider [phone] Encounter Details Date Type Department Care Team (Late st Contact Info) Description 08/23/2018 [place] [phone] Keren Lacey Social History Tobacco Use Types Packs/Day Years [...] encounter Miscellaneous Notes * Telephone Encounter - Reji Aaron RN - 08/28/2018 10:37 AM EST Returned call, spoke with patient as there is not a personal patient accounting representative form on file to speak with his . Made patient aware that once Dr. Ramos advises our office will be in touch. Patient verbalized understanding. Also made patient aware that this scenario writer will mail a Personal Infant And Toddler Teacher Form for him to complete and mail back. * Telephone Encounter - MolinaMarsha - 08/28/2018 10:04 AM EST Caller: pts Call for: nurse Reason for call:wants to speak to nurse about exactly what procedure they want done Call back urgency: pt wants call back today said they have been waiting long enough Ok to leave detailed message? yes Preferred method of communication: home * Telephone Encounter - Reji Aaron RN - 08/23/2018 9:50 AM EST Returned call to patient. Patient states that he is waiting to hear back from Dr. Ramos. Patient made aware that message will be sent to Dr. Ramos. * Telephone Encounter - Keren Lacey - 08/23/2018 9:29 AM EST Caller: Patient Call for: Nurse Reason for call: Has been waiting for a call back from Dr. Ramos's office on what their next step for plan of care is. Call back urgency: Routine Ok to leave detailed message? Yes Preferred method of communication: [phone] documented in this encounter Plan of Treatment Upcoming Encounters Date Type Department Care Team (Latest Contact Info) Description 02/01/2024 11:15 AM EDT Telephone Pre Admission Testing at [address] [phone] 02/07/2024 11:20 AM EDT [place] [address] Manoj Vinson MD [facility] [place] [address] 02/08/2024 8:30 AM EDT Hospital Encounter PACU at [address] [phone] Manoj Vinson MD [facility] [place] [address] 02/08/2024 8:30 AM EDT - 02/08/2024 11:00 AM EDT Surgery Main OR at [address] [address] Manoj Vinson MD [facility] [place] [address] ADJ.TISSUE TRANSFER, REARRANGEMENT, 10.1 TO 30 SQ.CM, GENITALIA (WRVU 10.83) Scheduled Procedures Name Priority Associated Diagnoses Date/Ti me ADJ.TISSUE TRANSFER, REARRANGEMENT, 10.1 TO 30 SQ.CM, GENITALIA (WRVU 10.83) Acquired buried penis 02/08/2024 8:30 AM EDT documented as of this encounter Visit Diagnoses Not on filedocumented in this encounter Care Teams Supervisor Poultry Hatchery Relationship Specialty Start Date End Date Yung Horn MD [address] [place] [address] PCP - General 11/22/16 documented as of this encounter
--- OUTSIDE RECORDS SUMMARY | 2024-01-19 15:13 | XMS_ITS | Encounter Summary ---
[place] [address] Care Team Providers Care Tube Backer Name Role Phone Elizabeth Horn MD Primary Care Provider [phone] Reason for Referral * Diagnostic Test (Routine) - Closed Specialty Diagnoses / Procedures Referred By Contac t Referred To Contact Cardiology Diagnoses LINTON (dyspnea on exertion) Procedures Echocardiogram Transthoracic([facility]) Elizabeth Olsen MD [facility] [place] [address] [facility] [place] [address] Referral ID Status Reason Start Date Expiration Date V isits Requested Visits Authorized [id number] Closed Specialty Service Requested 10/08/2020 11/07/2020 1 1 Reason for Visit * Consultation (Routine) - Specialty Diagnoses / Procedures Referred By Contac t Referred To Contact Cardiology Diagnoses Other forms of dyspnea LINTON Elizabeth Horn MD [address] [place] [address] [place] [address] [facility] [address] [address] [place] [phone] Referral ID Status Reason Start Date Expiration Date V isits Requested Visits Authorized [id number] Consult, Test & Treat [facility] PCP Updated and/or Approved 10/01/2020 04/03/2021 6 6 Encounter Details Date Type Department Care Team (Late st Contact Info) Description 10/08/2020 9:00 AM EDT Office Visit Cardiology at [address] [phone] Elizabeth Olsen MD [facility] [place] [address] Chest pain, unspecified type; LINTON (dyspnea on exertion); Syncope, unspecified syncope type Social History Tobacco Use Types Packs/Day Years [...] Sign Reading Time Taken Comments Blood Pressure 100/62 10/08/2020 9:17 AM EDT Pulse 81 10/08/2020 9:17 AM EDT Temperature - - Respiratory Rate 22 10/08/2020 9:17 AM EDT Oxygen Saturation 98% 10/08/2020 9:17 AM EDT Inhaled Oxygen Concentration - - Weight 112.9 kg (249 lb) 10/08/2020 9:17 AM EDT Height 177.8 cm (5' 10) 10/08/2020 9:17 AM EDT Body Mass Index 35.73 10/08/2020 9:17 AM EDT documented in this encounter Progress Notes * Elizabeth Olsen MD - 10/08/2020 9:00 AM EDT Interventional Cardiology Staff: The patient is a 64 y.o. male returning for follow-up of cardiovascular and other diagnoses as below: Patient Active Problem List Diagnosis ??? Chest pain/LINTON of uncertain etiology ?? Cath 05/26: Mid [place], o/w no significant CAD. R heart pressures not assessed ?? Echo 08/29 ([place], [place]): Normal LV, mildly dilated RV, PASP 30-40 ?? Treadmill Stress Echo 01/26: baseline EF 60% without WMAs. No significant valve disease, RV intact but PASP 52. 6 METs/79% predicted max HR. No ischemia. ??? Sleep apnea ??? Obesity ??? Syncope ??? Weight gain status post gastric bypass ??? Peyronie's disease ??? Male erectile dysfunction Current medications were reviewed and include: Outpatient Medications Marked as Taking for the 10/08/20 encounter (Office Visit) with Elizabeth Olsen MD Medication Sig Dispense Refill ??? dulaglutide (Trulicity) 0.75 mg/0.5 mL Pen Injector Inject 0.75 mg subcutaneously once a week. ??? pantoprazole EC (Protonix) 40 mg Tablet, Delayed Release (E.C.) TAKE ONE TABLET BY MOUTH TWICE A DAY BEFORE MEALS 60 tablet 11 ??? magnesium oxide (MAG-OX) 400 mg (241.3 mg magnesium) Tablet TAKE 1 TABLET BY MOUTH DAILY 3 ??? Venlafaxine 225 mg Tablet Extended Rel 24 hr 0 ??? aspirin 81 mg Tablet, Chewable Take 81 mg by mouth Daily. ??? CityHawkTOUCH ULTRA2 Kit TEST BLOOD GLUCOSE WITH ALL MEALS. DX: E11.9 0 ??? glipiZIDE (GLUCOTROL) 5 mg Tablet 10 mg 0 ??? ferrous sulfate 324 mg (65 mg iron) Tablet, Delayed Release (E.C.) Take 324 mg by mouth. Indications: Iron Deficiency Anemia ??? multivitamin (THERAGRAN) Tablet Take 1 tablet by mouth daily. ??? cholecalciferol, Vitamin D3, 2,000 unit Tablet Take 1 tablet by mouth. Indications: Vitamin D Deficiency ??? gabapentin (NEURONTIN) 600 mg Tablet Take 800 mg by mouth 3 times daily. ??? metFORMIN (FORTAMET) 1,000 mg Tablet Extended Rel 24 hr Take 1,000 mg by mouth 2 times daily (with meals). 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 Had been drinking beer exc essively. However, he says he has stopped drinking alcohol entirely as of June and fully intends not to drink again effort. He had smoked as a young man but quit about 35 years ago. 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 He does describe some exposure to fumes and dust in that setting. His complaints at this point are primarily significant LINTON and a tendency for lightheadedness. He feels poorly and says that he cannot walk 100 yards without stopping to catch his breath several times. He tends to get dizzy when he gets up and in general he feels miserable. He has had a little bit of ankle swelling. He has not had tyler syncope. He has frequent awareness of a low-grade pressure in his chest but this is not clearly angina by description. Of note, in addition to the liver issues alluded to above he has a remote history of gastric bypass. ROS No flowsheet data found. Vital signs this visit: Vitals: 10/08/20 0917 BP: 100/62 Pulse: 81 Resp: 22 SpO2: 98% Weight: 112.9 kg (249 lb) Height: 177.8 cm (5' 10) Exam: He is slightly disheveled, obese, and looks quite tired. He moves slowly and complains of lightheadedness when he stands up. There is no thyromegaly. No carotid bruits. His venous pressure is probably mildly elevated at about 8 to 10 cm of water. No Kussmaul sign. Lungs are clear to auscultation. On cardiac exam he has a regular rhythm with paradoxic splitting of the second sound. No murmur, click, rub or gallop appreciated. No ankle edema. His abdomen is significantly obese. EKG (my interpretation): Sinus rhythm at 85 bpm with an early precordial transition and a very minor right ventricular conduction delay but certainly not a right bundle branch block pattern. There david single PVC in the tracing which is otherwise unremarkable. Impression and Plan: Shortness of breath and other constitutional symptoms may be multifactorial in this gentleman but, particularly given the echo reading last summer, I am concerned about pulmonary hypertension. There are several factors in his background that could be contributing to this and I would be inclined to pursue with right and left heart catheterization if a resting echo today confirms his pulmonary pressures are elevated. ELIZABETH OLSEN MD Addendum: Echo shows intact LV and RV with PASP 22, no significant valve disease, no significant right sided chamber enlargement. Will not pursue further work-up at present. Advised continued follow-up with pulmonary and sustained effort at incrementally increasing exercise assuming he has a significant component of deconditioning. ELIZABETH OLSEN MD documented in this encounter Plan of Treatment Upcoming Encounters Date Type Department Care Team (Latest Contact Info) Description 02/01/2024 11:15 AM EDT Telephone Pre Admission Testing at [address] [phone] 02/07/2024 11:20 AM EDT [place] [address] Manoj Vinson MD [facility] [place] [address] 02/08/2024 8:30 AM EDT Hospital Encounter PACU at [address] [address] Manoj Vinson MD [facility] [place] [address] 02/08/2024 8:30 AM EDT - 02/08/2024 11:00 AM EDT Surgery Main OR at [address] [address] Manoj Vinson MD [facility] [place] [address] ADJ.TISSUE TRANSFER, REARRANGEMENT, 10.1 TO 30 SQ.CM, GENITALIA (WRVU 10.83) Scheduled Procedures Name Priority Associated Diagnoses Date/Ti me ADJ.TISSUE TRANSFER, REARRANGEMENT, 10.1 TO 30 SQ.CM, GENITALIA (WRVU 10.83) Acquired buried penis 02/08/2024 8:30 AM EDT documented as of this encounter Procedures Procedure Name Priority Date/Time Associated Diagnosis Comments EKG 12-LEAD Routine 10/08/2020 9:20 AM EDT Syncope, unspecified syncope type LINTON (dyspnea on exertion) documented in this encounter Results * ECHO COMPLETE W CONTRAST (10/08/2020 11:12 AM EDT) Anatomical Region Laterality Modality Other 10/08/2020 Narrative 10/08/2020 11:31 AM EDT Procedure: ?Transthoracic Echocardiogram Patient: ?TAYLOR JOHNSON ? (Age): 1955(64y) Med Rec#: ? [id number] ?Sex: ?M ? Site Loc: ? [facility] ?Ht / Wt: ??178(cm)/113(kg) Pt. Loc: ?Echo Lab ?BSA: ?2.29 Study Date: ?? 10/08/2020 ?Pt. Type: Outpatient Tape: ? Referring: PRETTY Reading: Scotty Deng ([id number]) Cardiology Physician Assistant: Janice Eden Body Man: Korey Hill [facility] Diagnosis: *Dyspnea, unspecified (R06.00) BP: ? 100/62 SUMMARY: 1. The left ventricular chamber size is normal. Left ventricular wall thickness is normal. There is normal global left ventricular systolic function. The quantitative left ventricular ejection fraction by biplane Alexander's method is 63%. There are no left ventricular segmental wall motion abnormalities. 2. The right ventricle is normal in size. Right ventricular global systolic function is normal. Estimated PASP is 22 mmHg plus RA pressure. 3. The left atrium is normal in size. ??The right atrium is mildly dilated. 4. There is no hemodynamically significant valve disease. 5. There is moderate dilatation of the aortic root (4.3 cm) and mild dilatation of the ascending aorta (3.9 cm). 6. See remainder of report for additional findings. Findings ? : Study Quality: ? Technically limited Left Ventricle: ? The left ventricular chamber size is normal. ?Left ventricular wall thickness is normal. ?There is no evidence of LVOT obstruction. ?No ventricular septal defect is visualized. ?There is normal global left ventricular systolic function. ?The quantitative left ventricular ejection fraction by biplane Alexander's method is 63%. ?There are no left ventricular segmental wall motion abnormalities. ?The left ventricular diastolic filling pattern is consistent with impaired LV relaxation. ?Doppler assessment is consistent with normal left sided filling pressure. Left Atrium: ? The left atrium is normal in size.27.2 ml/m2 Right Ventricle: ? The right ventricle is normal in size. ?Right ventricular global systolic function is normal. ?The estimated pulmonary artery systolic pressure is 22 mmHg.+ right atrial pressure. ?? Right Atrium: ? The right atrium is mildly dilated. Aortic Valve: ? The aortic valve is tricuspid. ?The aortic valve leaflets are mildly thickened. ?Systolic excursion of the aortic valve is normal. ?There is aortic annular calcification. ?There is no evidence of aortic valve stenosis. ?There is a trace of aortic regurgitation present. Mitral Valve: ? The mitral valve leaflets are mildly thickened. ?There is posterior mitral annular calcification. ?There is no evidence of mitral stenosis. ?There is trace mitral regurgitation present. Tricuspid Valve: ? The tricuspid valve appears normal in structure and function. ?There is trace tricuspid regurgitation present. Pulmonic Valve: ? The pulmonic valve is not well visualized. ?The pulmonic valve is probably normal. ?There is trace pulmonic regurgitation present. Pericardium: ? The pericardium appears normal and there is no evidence of a pericardial effusion. Aorta: ? There is moderate dilatation of the aortic root.4.3 cm ?There is mild dilatation of the ascending aorta.3.9 cm Pulmonary Artery: ? The main pulmonary artery is not well visualized. Venous: ? The inferior vena cava is poorly visualized. Misc: ? There is no hemodynamically significant valve disease. ?See remainder of report for additional findings. ?Two-dimensional echo, spectral Doppler and color Doppler performed. ?Optison contrast (one 3 ml vial) was used to enhance endocardial definition. Excess contrast was discarded. Chambers 2D ?Value ?Units (Range) ? IVSd (2D) ? 1.1 ?cm ? LVPWd (2D) ?0.9 ?cm ? IVS:LVPW ratio (2D) 1.22 ? ratio ? RWT (2D) ?0.42 ? ratio ? RWT PW (2D) ? 0.38 ? ratio ? LVIDd (2D) ?4.8 ?cm ? LVIDs (2D) ?3.5 ?cm ? LVIDd (2D) index ?2.09 ? cm/m2 ? LVIDs (2D) index ?1.53 ? cm/m2 ? LV FS (2D) ?27.08 ?% ? EF Teichholz (2D) ?? 52.69 ?% ? Ao root diameter (2D4.3 ?cm (2.1 - 3.6) ? Ascending Ao ?3.9 ?cm (2 - 3.5) ? Volumes/Mass ?Value ?Units (Range) ? LA Area 4 CH ?18 ? cm2 (<21) ? RA AREA 4CH ? 18 ? cm2 ? LA ESV BP (MOD) inde27.12 ?ml/m2 ? LV ESV SP 4CH (MOD) 78.8 ? ml ? LV ESV SP 2CH (MOD) 55.9 ? ml ? LV EDV BP ? 148 ?ml ? LV EDV BP index ? 64.53 ?ml/m2 ? LV mass (2D) ?170.19 ? g ? LV mass (2D) index ??74.21 ?g/m2 ? Diastolic/Systolic Function ?Value ?Units (Range) ? MV E-wave Vmax ?0.48 ? m/sec ? MV deceleration [id number] ?msec ? MV A-wave Vmax ?0.62 ? m/sec ? MV E:A ratio ?0.78 ? ratio ? LV septal e' Vmax ?? 0.05 ? m/sec ? LV lateral e' Vmax ??0.09 ? m/sec ? LV average e' Vmax ??0.07 ? m/sec ? LV E:e' septal ratio9.6 ?ratio ? LV E:e' lateral rati5.33 ? ratio ? LV average E:e' rati6.86 ? ratio ? Mitral Valve ?Value ?Units (Range) ? MV PHT ?81 ? msec ? MVA (PHT) ? 2.72 ? cm2 ? Tricuspid Valve ?Value ?Units (Range) ? TR Vmax ? 2.35 ? m/sec ? TR peak gradient ?22.09 ?mmHg ? RVSP ?22 ? mmHg ? Wall Motion: Segment Name ?Rest ? Base-Anteroseptal ?? Normal ? Base-Anterior ? Normal ? Base-Anterolateral ??Normal ? Base-Posterolateral Normal ? Base-Inferior ? Normal ? Base-Inferoseptal ?? Normal ? Mid-Anteroseptal ?Normal ? Mid-Anterior ?Normal ? Mid-Anterolateral ?? Normal ? Mid-Posterolateral ??Normal ? Mid-Inferior ?Normal ? Mid-Inferoseptal ?Normal ? [place]-Septal ? Normal ? [place]-Anterior ? Normal ? [place]-Lateral ?Normal ? [place]-Inferior ? Normal ? [place]-Tip ?Normal ? This report has been electronically signed by: Scotty Deng MD ? 10/08/2020 11:30:38 Images reviewed and interpretation verified [facility] Cardiac Ultrasound Laboratory Procedure Note Scotty Deng MD - 10/08/2020 Procedure: Transthoracic Echocardiogram Patient: TAYLOR SUAREZ(Age): 1955(64y) Med Rec#: [id number] Sex: M Site Loc: [facility] Ht / Wt: 178(cm)/113(kg) Pt. Loc: Echo Lab BSA: 2.29 Study Date: 10/08/2020 Pt. Type: Outpatient Tape: Referring: PRETTY Reading: Scotty Deng ([id number]) Cardiology Physician Assistant: Janice Eden Body Man: Korey Hill [facility] Diagnosis: *Dyspnea, unspecified (R06.00) BP: 100/62 SUMMARY: 1. The left ventricular chamber size is normal. Left ventricular wall thickness is normal. There is normal global left ventricular systolic function. The quantitative left ventricular ejection fraction by biplane Alexander's method is 63%. There are no left ventricular segmental wall motion abnormalities. 2. The right ventricle is normal in size. Right ventricular global systolic function is normal. Estimated PASP is 22 mmHg plus RA pressure. 3. The left atrium is normal in size. The right atrium is mildly dilated. 4. There is no hemodynamically significant valve disease. 5. There is moderate dilatation of the aortic root (4.3 cm) and mild dilatation of the ascending aorta (3.9 cm). 6. See remainder of report for additional findings. Findings : Study Quality: Technically limited Left Ventricle: The left ventricular chamber size is normal. Left ventricular wall thickness is normal. There is no evidence of LVOT obstruction. No ventricular septal defect is visualized. There is normal global left ventricular systolic function. The quantitative left ventricular ejection fraction by biplane Alexander's method is 63%. There are no left ventricular segmental wall motion abnormalities. The left ventricular diastolic filling pattern is consistent with impaired LV relaxation. Doppler assessment is consistent with normal left sided filling pressure. Left Atrium: The left atrium is normal in size.27.2 ml/m2 Right Ventricle: The right ventricle is normal in size. Right ventricular global systolic function is normal. The estimated pulmonary artery systolic pressure is 22 mmHg.+ right atrial pressure. Right Atrium: The right atrium is mildly dilated. Aortic Valve: The aortic valve is tricuspid. The aortic valve leaflets are mildly thickened. Systolic excursion of the aortic valve is normal. There is aortic annular calcification. There is no evidence of aortic valve stenosis. There is a trace of aortic regurgitation present. Mitral Valve: The mitral valve leaflets are mildly thickened. There is posterior mitral annular calcification. There is no evidence of mitral stenosis. There is trace mitral regurgitation present. Tricuspid Valve: The tricuspid valve appears normal in structure and function. There is trace tricuspid regurgitation present. Pulmonic Valve: The pulmonic valve is not well visualized. The pulmonic valve is probably normal. There is trace pulmonic regurgitation present. Pericardium: The pericardium appears normal and there is no evidence of a pericardial effusion. Aorta: There is moderate dilatation of the aortic root.4.3 cm There is mild dilatation of the ascending aorta.3.9 cm Pulmonary Artery: The main pulmonary artery is not well visualized. Venous: The inferior vena cava is poorly visualized. Misc: There is no hemodynamically significant valve disease. See remainder of report for additional findings. Two-dimensional echo, spectral Doppler and color Doppler performed. Optison contrast (one 3 ml vial) was used to enhance endocardial definition. Excess contrast was discarded. Chambers 2D Value Units (Range) IVSd (2D) 1.1 cm LVPWd (2D) 0.9 cm IVS:LVPW ratio (2D) 1.22 ratio RWT (2D) 0.42 ratio RWT PW (2D) 0.38 ratio LVIDd (2D) 4.8 cm LVIDs (2D) 3.5 cm LVIDd (2D) index 2.09 cm/m2 LVIDs (2D) index 1.53 cm/m2 LV FS (2D) 27.08 % EF Teichholz (2D) 52.69 % Ao root diameter (2D4.3 cm (2.1 - 3.6) Ascending Ao 3.9 cm (2 - 3.5) Volumes/Mass Value Units (Range) LA Area 4 CH 18 cm2 (<21) RA AREA 4CH 18 cm2 LA ESV BP (MOD) inde27.12 ml/m2 LV ESV SP 4CH (MOD) 78.8 ml LV ESV SP 2CH (MOD) 55.9 ml LV EDV BP 148 ml LV EDV BP index 64.53 ml/m2 LV mass (2D) 170.19 g LV mass (2D) index 74.21 g/m2 Diastolic/Systolic Function Value Units (Range) MV E-wave Vmax 0.48 m/sec MV deceleration [id number] msec MV A-wave Vmax 0.62 m/sec MV E:A ratio 0.78 ratio LV septal e' Vmax 0.05 m/sec LV lateral e' Vmax 0.09 m/sec LV average e' Vmax 0.07 m/sec LV E:e' septal ratio9.6 ratio LV E:e' lateral rati5.33 ratio LV average E:e' rati6.86 ratio Mitral Valve Value Units (Range) MV PHT 81 msec MVA (PHT) 2.72 cm2 Tricuspid Valve Value Units (Range) TR Vmax 2.35 m/sec TR peak gradient 22.09 mmHg RVSP 22 mmHg Wall Motion: Segment Name Rest Base-Anteroseptal Normal Base-Anterior Normal Base-Anterolateral Normal Base-Posterolateral Normal Base-Inferior Normal Base-Inferoseptal Normal Mid-Anteroseptal Normal Mid-Anterior Normal Mid-Anterolateral Normal Mid-Posterolateral Normal Mid-Inferior Normal Mid-Inferoseptal Normal [place]-Septal Normal [place]-Anterior Normal [place]-Lateral Normal [place]-Inferior Normal [place]-Tip Normal This report has been electronically signed by: Scotty Deng MD 10/08/2020 11:30:38 Images reviewed and interpretation verified [facility] Elizabeth Olsen MD ECHO ORDERABLES * EKG 12 Lead (10/08/2020 9:20 AM EDT) Ventricular rate 85 BPM MUSE SYSTEM Atrial Rate 85 BPM MUSE SYSTEM P-R Interval 156 ms MUSE SYSTEM QRS Duration 90 ms MUSE SYSTEM Q-T Interval 360 ms MUSE SYSTEM QTC Calculated (Bezet) 428 ms MUSE SYSTEM Calculated P [place] 57 degrees MUSE SYSTEM Calculated R [place] 4 degrees MUSE SYSTEM Calculated T [place] 35 degrees MUSE SYSTEM INTERPRETATION Sinus rhythm Premature ventricular complexes Abnormal ECG When compared with ECG of 12-JUN-2017 13:45, Premature supraventricular complexes are now Present Confirmed by MD Rico, Yevgeniy ([id number]) on 10/08/2020 11:15:51 AM MUSE SYSTEM 10/08/2020 9:20 AM EDT 10/08/2020 11:15 AM EDT Elizabeth Olsen MD ECG ORDERABLES MUSE SYSTEM documented in this encounter Visit Diagnoses Diagnosis Chest pain, unspecified type LINTON (dyspnea on exertion) Other dyspnea and respiratory abnormality Syncope, unspecified syncope type LINTON (dyspnea on exertion) Other dyspnea and respiratory abnormality Acquired buried penis Other specified disorder of penis documented in this encounter Care Teams Tube Backer Relationship Specialty Start Date End Date Elizabeth Horn MD [address] [place] [id number] PCP - General 11/22/16 documented as of this encounter
--- OUTSIDE RECORDS SUMMARY | 2024-01-19 15:13 | XMS_ITS | Encounter Summary ---
Author Organization [facility] [place] [address] Care Team Providers Care Cream Dipper Name Role Phone Yung Horn MD Primary Care Provider [phone] Encounter Details Date Type Department Care Team (Late st Contact Info) Description 01/01/2018 Telephone [place] [phone] Ashley Sena Social History Tobacco Use Types Packs/Day Years [...] encounter Miscellaneous Notes * Telephone Encounter - Ashley Sena - 01/01/2018 4:13 PM EDT No answ H#, lvm Cell ([employer]) Please have Yung call back (still trying to reach pt- per Tracia to see Dr. Ramos to question endoscopic revision of gastric pouch) documented in this encounter Plan of Treatment Upcoming Encounters Date Type Department Care Team (Latest Contact Info) Description 02/01/2024 11:15 AM EDT Telephone Pre Admission Testing at [address] [phone] 02/07/2024 11:20 AM EDT Office [place] [address] Manoj Vinson MD [facility] [place] [address] 02/08/2024 8:30 AM EDT Hospital Encounter PACU at [address] [phone] Manoj Vinson MD [facility] [place] [address] 02/08/2024 8:30 AM EDT - 02/08/2024 11:00 AM EDT Surgery Main OR at [address] [phone] Manoj Vinson MD [facility] [place] [address] ADJ.TISSUE TRANSFER, REARRANGEMENT, 10.1 TO 30 SQ.CM, GENITALIA (WRVU 10.83) Scheduled Procedures Name Priority Associated Diagnoses Date/Ti me ADJ.TISSUE TRANSFER, REARRANGEMENT, 10.1 TO 30 SQ.CM, GENITALIA (WRVU 10.83) Acquired buried penis 02/08/2024 8:30 AM EDT documented as of this encounter Visit Diagnoses Not on filedocumented in this encounter Care Teams Cream Dipper Relationship Specialty Start Date End Date Yung Horn MD [facility] [place] [address] PCP - General 11/22/16 documented as of this encounter
--- OUTSIDE RECORDS SUMMARY | 2024-01-19 15:13 | XMS_ITS | Encounter Summary ---
Author Organization [facility] [place] [address] Care Team Providers Care Sawyer Cork Slabs Name Role Phone Yung Horn MD Primary Care Provider [phone] Encounter Details Date Type Department Care Team (Late st Contact Info) Description 09/17/2018 Orders [place] [address] Robert Ramos MD [facility] [place] [address] Dysphagia, unspecified type (Primary Dx) Social History Tobacco [...] EDT Telephone Pre Admission Testing at [address] [phone] 02/07/2024 11:20 AM EDT Office [place] [address] Manoj Vinson MD [facility] [place] [address] 02/08/2024 8:30 AM EDT Hospital Encounter PACU at [address] [phone] Manoj Vinson MD [facility] [place] [address] 02/08/2024 8:30 AM EDT - 02/08/2024 11:00 AM EDT Surgery Main OR at [address] [address] Manoj Vinson MD [facility] [place] [address] ADJ.TISSUE TRANSFER, REARRANGEMENT, 10.1 TO 30 SQ.CM, GENITALIA (WRVU 10.83) Scheduled Procedures Name Priority Associated Diagnoses Date/Ti me ADJ.TISSUE TRANSFER, REARRANGEMENT, 10.1 TO 30 SQ.CM, GENITALIA (WRVU 10.83) Acquired buried penis 02/08/2024 8:30 AM EDT documented as of this encounter Visit Diagnoses Diagnosis Dysphagia, unspecified type- Primary Acquired buried penis Other specified disorder of penis documented in this encounter Care Teams Sawyer Cork Slabs Relationship Specialty Start Date End Date Yung Horn MD [facility] [place] [address] PCP - General 11/22/16 documented as of this encounter
--- OUTSIDE RECORDS SUMMARY | 2024-01-19 15:13 | XMS_ITS | Encounter Summary ---
Author Organization [facility] [place] [address] Care Team Providers Care Model Maker Firearms Name Role Phone Yung Horn MD Primary Care Provider [phone] Encounter Details Date Type Department Care Team (Late st Contact Info) Description 09/27/2017 1:00 PM EDT Office Visit [place] [address] Thalia Harper APRN [facility] DR GASTROENTEROLOGY [place] [address] Non-cardiac chest pain Social History Tobacco Use Types Packs/Day Years [...] Sign Reading Time Taken Comments Blood Pressure 144/76 09/27/2017 1:31 PM EDT Pulse 70 09/27/2017 1:31 PM EDT Temperature - - Respiratory Rate - - Oxygen Saturation - - Inhaled Oxygen Concentration - - Weight 114.1 kg (251 lb 9.6 oz) 09/27/2017 1:31 PM EDT Height 180.3 cm (5' 11) 09/27/2017 1:31 PM EDT Body Mass Index 35.09 09/27/2017 1:31 PM EDT documented in this encounter Progress Notes * Thalia Harper, RN - 09/27/2017 1:00 PM EDT _27___minutes of this_35___-minute visit were spent in face to face discussion and/or counseling the patient, regarding symptoms and treatment options as detailed below. Pt is here for follow up regarding gi testing. Egd: The examined esophagus was normal. Regular Z-line/GE ?junction at 40cm from the incisors. ?Hiatal hernia noted (Diaphragmatic pinch at 41cm from ?the incisors). 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 ?The gastrojejunal anastomosis was dilated ?(anastamosis estimated at 5.5cm vs 3cm via large ?snare), the mucosa was healthy in was characterized ?by healthy appearing mucosa. ?The gastric pouch was estimated at 9cm (The ?gastrojejunal anastamosis noted at 49cm from the ?incisors). This was traversed. The rgxti-on-rghfily ?limb was characterized by healthy appearing mucosa. ?The examined jejunum was normal. ? Moderate Sedation: ?I was present during the intraservice time as ?documented by the sedation RN. 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 ?- Small hiatal hernia. ?- Normal examined jejunum. Recommendation: ?- Discharge to home ?- Resume daily PPI once pH testing ?completed ?- F/u pH testing ?- Consider endoscopic revision of ?gastric pouch for weight regain post ?RYGB following completion of workup ?of atypical chest pain ? Seth: IMPRESSION This study was negative for pathologic acid reflux. The SAP was not significant for heartburn, chest pain, cough, regurgitation, or nausea, indicating that these symptoms are not related to acid reflux. Hrem: normal study Pt is no longer having chest pain. He has found the protonix 40mg qd much more effective than omeprazole. Denies reflux, dysphagia, odynophagia, n/v. Pt would like to consider revision of gastric pouch. Will consult with Dr. Ramos. Pt expressed he would like to get off some of his medications. He feels medical would allow him to do this. Defer to pcp. Plan: 1. Gerd/nccp: protonix 40mg qd 2. Consult with Dr. Ramos 3. Pt will f/u with pcp regarding medical mj 4. Pt to call gi prn documented in this encounter Plan of Treatment Upcoming Encounters Date Type Department Care Team (Latest Contact Info) Description 02/01/2024 11:15 AM EDT Telephone Pre Admission Testing at [address] [phone] 02/07/2024 11:20 AM EDT Office [place] [address] Manoj Vinson MD [facility] [place] [address] 02/08/2024 8:30 AM EDT Hospital Encounter PACU at [address] [phone] Manoj Vinson MD [facility] [place] [address] 02/08/2024 8:30 AM EDT - 02/08/2024 11:00 AM EDT Surgery Main OR at [address] [phone] Manoj Vinson MD [facility] [place] [address] ADJ.TISSUE TRANSFER, REARRANGEMENT, 10.1 TO 30 SQ.CM, GENITALIA (WRVU 10.83) Scheduled Procedures Name Priority Associated Diagnoses Date/Ti mo ADJ.TISSUE TRANSFER, REARRANGEMENT, 10.1 TO 30 SQ.CM, GENITALIA (WRVU 10.83) Acquired buried penis 02/08/2024 8:30 AM EDT documented as of this encounter Visit Diagnoses Diagnosis Non-cardiac chest pain Other chest pain Acquired buried penis Other specified disorder of penis documented in this encounter Care Teams Model Maker Firearms Relationship Specialty Start Date End Date Yung Horn MD [facility] [place] [address] PCP - General 11/22/16 documented as of this encounter
--- OUTSIDE RECORDS SUMMARY | 2024-01-19 15:13 | XMS_ITS | Encounter Summary ---
[place] [address] Care Team Providers Care Pulp Plant Supervisor Name Role Phone Yung Horn MD Primary Care Provider [phone] Reason for Referral * Diagnostic Test (Routine) - Closed Specialty Diagnoses / Procedures Referred By Contac t Referred To Contact Diagnoses LINTON (dyspnea on exertion) Procedures Echocardiogram Stress (Treadmill) Yung Olsen MD [facility] [place] [address] [facility] [place] [address] Referral ID Status Reason Start Date Expiration Date V isits Requested Visits Authorized [id number] Closed Specialty Service Requested 01/14/2020 05/13/2020 1 1 Reason for Visit * Diagnostic Test (Routine) - Closed Specialty Diagnoses / Procedures Referred By Contac t Referred To Contact Diagnoses LINTON (dyspnea on exertion) Procedures Echocardiogram Stress (Treadmill) Yung Olsen MD [facility] [place] [address] [facility] [place] [address] Referral ID Status Reason Start Date Expiration Date V isits Requested Visits Authorized [id number] Closed Specialty Service Requested 01/14/2020 05/13/2020 1 1 Encounter Details Date Type Department Care Team (Latest Contact Info) Description 01/14/2020 10:00 AM EDT - 01/14/2020 11:59 PM EDT Hospital Encounter Non-Invasive Cardiology Lab [place] [address] Yung Olsen MD [facility] [place] [address] LINTON (dyspnea on exertion) Discharge Disposition: Home Social History Tobacco Use [...] Sig Dispensed Refills Start Date End Date dulaglutide (Trulicity) 0.75 mg/0.5 mL Pen Injector [...] A DAY BEFORE MEALS 60 tablet 11 12/06/2019 12/08/2020 magnesium oxide (MAG-OX) 400 mg (241.3 mg magnesium) Tablet TAKE 1 TABLET BY MOUTH DAILY 3 09/01/2018 07/29/2021 aspirin 81 mg Tablet, Chewable Take 81 mg by mouth Daily. 07/29/2021 dotCloudUCH ULTRA2 Kit TEST BLOOD GLUCOSE WITH ALL [...] EDT Telephone Pre Admission Testing at [address] [address] 02/07/2024 11:20 AM EDT Office [place] [address] Manoj Vinson MD [facility] [place] [address] 02/08/2024 8:30 AM EDT Hospital Encounter PACU at [address] [address] Manoj Vinson MD [facility] [place] [address] 02/08/2024 8:30 AM EDT - 02/08/2024 11:00 AM EDT Surgery Main OR at [address] [address] Manoj Vinson MD [facility] [place] [address] ADJ.TISSUE TRANSFER, REARRANGEMENT, 10.1 TO 30 SQ.CM, GENITALIA (WRVU 10.83) Scheduled Procedures Name Priority Associated Diagnoses Date/Ti me ADJ.TISSUE TRANSFER, REARRANGEMENT, 10.1 TO 30 SQ.CM, GENITALIA (WRVU 10.83) Acquired buried penis 02/08/2024 8:30 AM EDT documented as of this encounter Procedures Procedure Name Priority Date/Time Associated Diagnosis Comments STRESS ECHO W CONTRAST W LMTD SPEC DOPP COLOR DOPP Routine 01/14/2020 11:09 AM EDT LINTON (dyspnea on exertion) documented in this encounter Results * STRESS ECHO W CONTRAST W LMTD SPEC DOPP COLOR DOPP (01/14/2020 11:09 AM EDT) Anatomical Region Laterality Modality Other 01/14/2020 Narrative 01/14/2020 2:03 PM EDT Procedure: ?Stress Echocardiogram Patient: ?TAYLOR JOHNSON ? (Age): 1955(64y) Med Rec#: ? [id number] ?Sex: ?M ? Site Loc: ? [facility] ?Ht / Wt: ??180(cm)/113(kg) Pt. Loc: ?Echo Lab ?BSA: ?2.31 Study Date: ?? 01/14/2020 ?Pt. Type: Tape: ? Referring: PRETTY Referring: Yung Olsen Reading: Saran Shetty ([id number]) Gas Pump Attendant: Manisha Aguilar Lithographic Proofer: More Case Diagnosis: *Dyspnea, unspecified (R06.00) Indication: ?? Dyspnea Stage ? BP ?HR ? Rest ?152/94 ?78 ? Peak ?160/80 ?125 ? Recovery ?148/88 ?79 ? SUMMARY: 1. REST: ECG shows sinus rhythm with no ST shift at present. There is normal global left ventricular systolic function. ??Ejection fraction is estimated to be 60%. There are no left ventricular segmental wall motion abnormalities. 2. STRESS: ??The patient achieved a level of 6 METs (70% of predicted aerobic capacity) and 79% of max predicted HR (target is 85%). The patient did not express feelings of chest discomfort. The blood pressure response was normal. There were no significant ST segment changes. Echo showed augmentation of all wall segments. 3. CONCLUSION: There is no echocardiographic evidence of myocardial ischemia at this slightly submax level of stress. Findings Rest: Study Quality: ? Technically limited Left Ventricle: ? The left ventricle is probably normal in size. ?There is normal global left ventricular systolic function. ??Ejection fraction is estimated to be 60%. ?There are no left ventricular segmental wall motion abnormalities. ?Doppler assessment is consistent with normal left sided filling pressure. Right Ventricle: ? Right ventricular chamber size, wall thickness, and systolic function are within normal limits. Aortic Valve: ? The aortic valve is probably tricuspid. ?The aortic valve leaflets are mildly thickened. ?There is no evidence of aortic valve stenosis. ?There is a trace of aortic regurgitation present. Mitral Valve: ? The mitral valve leaflets are mildly thickened. ?There is trace mitral regurgitation present. Tricuspid Valve: ? The tricuspid valve appears normal in structure and function. ?There is trace tricuspid regurgitation present. Aorta: ? There is mild dilatation of the aortic root.(4.1cm) ?There is mild dilatation of the ascending aorta.(3.8cm) Stress: ? EKG: normal sinus rhythm. ?The patient's oxygen saturation was 98%. ?The patient is taking aspirin. Misc: ? Definity contrast (one 1.5 ml vial)was used to enhance endocardial definition. Excess contrast was discarded. Findings Peak: Predicted Values:The patient achieved a maximum heart rate of 125 which is 80% of the maximum predicted heart rate (157 beats/min). ??The target heart rate was not achieved. Left Ventricle: ? The left ventricular chamber size is normal. ?There is normal global left ventricular systolic function. ?There are no left ventricular segmental wall motion abnormalities. Right Ventricle: ? The estimated pulmonary artery systolic pressure is 52 mmHg. ?The estimated right atrial pressure is 3 mmHg. Stress: ? Patient followed a Saran protocol. ?The patient exercised into stage 2. ?The total exercise duration was:4:01 min:sec. ?The study was terminated because of dyspnea. ?The patient did not express feelings of chest discomfort. ?The blood pressure response was normal. ?Exercise capacity was fair. ?The patient achieved a level of 6 METS. ?There were rare atrial premature beats. ?There were no significant ST segment changes. ?The electrocardiographic response is indeterminate for ischemia: failed to achieve target heart rate. ?The echocardiographic response shows no evidence of ischemia, however at insufficient stress. ?There is no echocardiographic evidence of myocardial ischemia at this level of stress. ?EKG: sinus tachycardia. ?The patient's oxygen saturation was 95%. Findings Recovery: Stress: ? EKG: normal sinus rhythm. Chambers 2D ?Value ?Units (Range) ? Ao root diameter (2D4.1 ?cm (2.1 - 3.6) ? Ascending Ao ?3.8 ?cm (2 - 3.5) ? Diastolic/Systolic Function ?Value ?Units (Range) ? MV E-wave Vmax ?0.51 ? m/sec ? LV septal e' Vmax ?? 0.05 ? m/sec ? LV lateral e' Vmax ??0.09 ? m/sec ? LV E:e' septal ratio10.12 ?ratio ? LV E:e' lateral rati5.62 ? ratio ? Diastolic/Systolic Function ?Value ?Units (Range) ? MV E-wave Vmax ?1 ?m/sec ? LV septal e' Vmax ?? 0.09 ? m/sec ? LV lateral e' Vmax ??0.15 ? m/sec ? LV E:e' septal ratio11.11 ?ratio ? LV E:e' lateral rati6.67 ? ratio ? Tricuspid Valve ?Value ?Units (Range) ? TR Vmax ? 3.5 ?m/sec ? TR peak gradient ?49 ? mmHg ? RAP ? 3 ?mmHg ? RVSP ?52 ? mmHg ? Wall Motion: Segment Name ?Rest ? Peak ? Base-Anteroseptal ?? Normal ? Normal ? Base-Anterior ? Normal ? Normal ? Base-Anterolateral ??Normal ? Normal ? Base-Posterolateral Normal ? Normal ? Base-Inferior ? Normal ? Normal ? Base-Inferoseptal ?? Normal ? Normal ? Mid-Anteroseptal ?Normal ? Normal ? Mid-Anterior ?Normal ? Normal ? Mid-Anterolateral ?? Normal ? Normal ? Mid-Posterolateral ??Normal ? Normal ? Mid-Inferior ?Normal ? Normal ? Mid-Inferoseptal ?Normal ? Normal ? [place]-Septal ? Normal ? Normal ? [place]-Anterior ? Normal ? Normal ? [place]-Lateral ?Normal ? Normal ? [place]-Inferior ? Normal ? Normal ? [place]-Tip ?Normal ? Normal ? This report has been electronically signed by: Saran Shetty M.D. ? 01/14/2020 14:02:39 Images reviewed and interpretation verified [facility] Cardiac Ultrasound Laboratory Procedure Note Saran Shetty MD - 01/14/2020 Procedure: Stress Echocardiogram Patient: TAYLOR SUAREZ(Age): 1955(64y) Med Rec#: [id number] Sex: M Site Loc: [facility] Ht / Wt: 180(cm)/113(kg) Pt. Loc: Echo Lab BSA: 2.31 Study Date: 01/14/2020 Pt. Type: Tape: Referring: PRETTY Referring: Yung Olsen Reading: Saran Shetty ([id number]) Gas Pump Attendant: Manisha Aguilar Lithographic Proofer: More Case Diagnosis: *Dyspnea, unspecified (R06.00) Indication: Dyspnea Stage BP HR Rest 152/94 78 Peak 160/80 125 Recovery 148/88 79 SUMMARY: 1. REST: ECG shows sinus rhythm with no ST shift at present. There is normal global left ventricular systolic function. Ejection fraction is estimated to be 60%. There are no left ventricular segmental wall motion abnormalities. 2. STRESS: The patient achieved a level of 6 METs (70% of predicted aerobic capacity) and 79% of max predicted HR (target is 85%). The patient did not express feelings of chest discomfort. The blood pressure response was normal. There were no significant ST segment changes. Echo showed augmentation of all wall segments. 3. CONCLUSION: There is no echocardiographic evidence of myocardial ischemia at this slightly submax level of stress. Findings Rest: Study Quality: Technically limited Left Ventricle: The left ventricle is probably normal in size. There is normal global left ventricular systolic function. Ejection fraction is estimated to be 60%. There are no left ventricular segmental wall motion abnormalities. Doppler assessment is consistent with normal left sided filling pressure. Right Ventricle: Right ventricular chamber size, wall thickness, and systolic function are within normal limits. Aortic Valve: The aortic valve is probably tricuspid. The aortic valve leaflets are mildly thickened. There is no evidence of aortic valve stenosis. There is a trace of aortic regurgitation present. Mitral Valve: The mitral valve leaflets are mildly thickened. There is trace mitral regurgitation present. Tricuspid Valve: The tricuspid valve appears normal in structure and function. There is trace tricuspid regurgitation present. Aorta: There is mild dilatation of the aortic root.(4.1cm) There is mild dilatation of the ascending aorta.(3.8cm) Stress: EKG: normal sinus rhythm. The patient's oxygen saturation was 98%. The patient is taking aspirin. Misc: Definity contrast (one 1.5 ml vial)was used to enhance endocardial definition. Excess contrast was discarded. Findings Peak: Predicted Values:The patient achieved a maximum heart rate of 125 which is 80% of the maximum predicted heart rate (157 beats/min). The target heart rate was not achieved. Left Ventricle: The left ventricular chamber size is normal. There is normal global left ventricular systolic function. There are no left ventricular segmental wall motion abnormalities. Right Ventricle: The estimated pulmonary artery systolic pressure is 52 mmHg. The estimated right atrial pressure is 3 mmHg. Stress: Patient followed a Saran protocol. The patient exercised into stage 2. The total exercise duration was:4:01 min:sec. The study was terminated because of dyspnea. The patient did not express feelings of chest discomfort. The blood pressure response was normal. Exercise capacity was fair. The patient achieved a level of 6 METS. There were rare atrial premature beats. There were no significant ST segment changes. The electrocardiographic response is indeterminate for ischemia: failed to achieve target heart rate. The echocardiographic response shows no evidence of ischemia, however at insufficient stress. There is no echocardiographic evidence of myocardial ischemia at this level of stress. EKG: sinus tachycardia. The patient's oxygen saturation was 95%. Findings Recovery: Stress: EKG: normal sinus rhythm. Chambers 2D Value Units (Range) Ao root diameter (2D4.1 cm (2.1 - 3.6) Ascending Ao 3.8 cm (2 - 3.5) Diastolic/Systolic Function Value Units (Range) MV E-wave Vmax 0.51 m/sec LV septal e' Vmax 0.05 m/sec LV lateral e' Vmax 0.09 m/sec LV E:e' septal ratio10.12 ratio LV E:e' lateral rati5.62 ratio Diastolic/Systolic Function Value Units (Range) MV E-wave Vmax 1 m/sec LV septal e' Vmax 0.09 m/sec LV lateral e' Vmax 0.15 m/sec LV E:e' septal ratio11.11 ratio LV E:e' lateral rati6.67 ratio Tricuspid Valve Value Units (Range) TR Vmax 3.5 m/sec TR peak gradient 49 mmHg RAP 3 mmHg RVSP 52 mmHg Wall Motion: Segment Name Rest Peak Base-Anteroseptal Normal Normal Base-Anterior Normal Normal Base-Anterolateral Normal Normal Base-Posterolateral Normal Normal Base-Inferior Normal Normal Base-Inferoseptal Normal Normal Mid-Anteroseptal Normal Normal Mid-Anterior Normal Normal Mid-Anterolateral Normal Normal Mid-Posterolateral Normal Normal Mid-Inferior Normal Normal Mid-Inferoseptal Normal Normal [place]-Septal Normal Normal [place]-Anterior Normal Normal [place]-Lateral Normal Normal [place]-Inferior Normal Normal [place]-Tip Normal Normal This report has been electronically signed by: Saran Shetty M.D. 01/14/2020 14:02:39 Images reviewed and interpretation verified [facility] Cardiac Ultrasound Laboratory Yung Olsen MD ECHO ORDERABLES documented in this encounter Visit Diagnoses Diagnosis LINTON (dyspnea on exertion) Other dyspnea and respiratory abnormality Acquired buried penis Other specified disorder of penis documented in this encounter Administered Medications Inactive Administered Medications - up to 3 most recent administrations Medication Order MAR Action Action Date Dose Rate Site perflutren lipid microspheres (DEFINITY) injection 1 mL 1 mL, Intravenous, ONCE PRN, 1 dose, Starting on Mon01/14/20 at 1110, Until Mon01/14/20 at 1050, Other, for enhancement of sub-optimal echo images, Echo Lab (Intra-Procedure), Routine Given 01/14/2020 10:50 AM EDT 1 mL documented in this encounter Care Teams Pulp Plant Supervisor Relationship Specialty Start Date End Date Yung Horn MD [address] [place] [id number] PCP - General 11/22/16 documented as of this encounter
--- OUTSIDE RECORDS SUMMARY | 2024-01-19 15:13 | XMS_ITS | Encounter Summary ---
Author Organization [facility] [place] [address] Care Team Providers Care Custom Designer Name Role Phone Yung Horn MD Primary Care Provider [phone] Encounter Details Date Type Department Care Team (Late st Contact Info) Description 08/03/2017 3:45 PM EST Tech Visit Gastroenterology at [facility] [place] [address] Arabella Sears MD [facility] [place] [address] Chest pain, unspecified type Social History Tobacco Use Types Packs/Day [...] as of this encounter Progress Notes * Arabella Sears MD - 08/03/2017 3:45 PM EST [id number] WIRELESS pH CAPSULE STUDY AFTER UPPER ENDOSCOPY Yung Betancur [address] [facility] [address] : 1955 STUDY DATE: 07/31/2017 PROVIDER: Arabella Sears MD ([id number]) INDICATION Chest pain Note that this study was performed off of medications used to treat acid reflux. METHODS After upper endoscopy where landmarks were visualized and measured, in a supervised setting, and after informed consent, a Seth pH telemetry capsule was deployed orally and attached to the esophageal wall at 5 cm above the upper border of the LES. ??No complications were noted during this procedure. FINDINGS Visual inspection of the study shows fluctuations in pH values throughout the study consistent witha technically adequate study. DAY ONE Upright: 12 hours, 22 minutes Supine: 11 hours, 38 minutes Total Number of Reflux Episodes: 6 ? Upright Position: 5 ? Supine Position: 1 ? Reflux Episodes Longer than Five Minutes: 0 ? Upright: 0 ? Supine: ??0 ? Duration of Longest Episode: 2 ??minute(s), upright position ? Total Distal Esophageal Acid Exposure Time: 0 hour, 4??minute(s). Percent of Total Recording Time: 0.3% Percent of Upright Recording Time: 0.5% Percent of Supine Recording Time: 0.1% Calculated DeMeester Score (normal values are up to 14.72) Day One Calculated DeMeester Score: 1.6 DAY TWO Upright: 16 hours, 5 minutes Supine: 7 hours, 55 minutes Total Number of Reflux Episodes: 3 ? Upright Position: 3 ? Supine Position: 0 ? Reflux Episodes Longer than Five Minutes: 0 ? Upright: 0 ? Supine: ??0 ? Duration of Longest Episode: 0 ??minute(s)? Total Distal Esophageal Acid Exposure Time: 0 hour, 1??minute(s). Percent of Total Recording Time: 0% Percent of Upright Recording Time: 0.1% Percent of Supine Recording Time: 0% Calculated DeMeester Score (normal values are up to 14.72) Day One Calculated DeMeester Score: 0.6 Ywemr-Vltjy-Nijg (Total) Fraction of Time with pH Less Than 4%: 0.2 Ghcbh-Xwxki-Potc DeMeester Score (Total): 1.1 Day One Symptoms Association Probability (SAP) for Heartburn: 0 Chest pain: 0 Cough: 73.1 Regurgitation: 83.9 Nausea: 0 Day Two SAP for Heartburn: 70.3 Utvrp-Juoks-Tfoq SAP for Heartburn: 0 Chest pain: 0 Cough: 80.6 Regurgitation: 89.1 Nausea: 0 IMPRESSION This study was negative for pathologic acid reflux. The SAP was not significant for heartburn, chest pain, cough, regurgitation, or nausea, indicating that these symptoms are not related to acid reflux. NORMAL VALUES FOR WIRELESS pH CAPSULE STUDY 1. Total number of reflux episodes = less than 50. 2. Number of episodes longer than 5 minutes = less than 3. 3. Acid exposure time Total = less than 5.3% Upright = less than 6.3% Supine = less than 1.2%. SAP expresses the likelihood that a specific symptom, i.e., heartburn, regurgitation, chest pain, is associated with acid reflux. ??By convention, SAP values greater than 95% are positive. Arabella Sears MD Section of Gastroenterology and Hepatology [facility] [place] [address] V: [phone] F: [phone] CC/EC: PCP documented in this encounter Plan of Treatment Upcoming Encounters Date Type Department Care Team (Latest Contact Info) Description 02/01/2024 11:15 AM EDT Telephone Pre Admission Testing at [address] [address] 02/07/2024 11:20 AM EDT [place] [address] Manoj Vinson MD [facility] [place] [address] 02/08/2024 8:30 AM EDT Hospital Encounter PACU at [address] [address] Manoj Vinson MD [facility] [place] [address] 02/08/2024 8:30 AM EDT - 02/08/2024 11:00 AM EDT Surgery Main OR at [address] [address] Manoj Vinson MD [facility] [address] [place] [address] ADJ.TISSUE TRANSFER, REARRANGEMENT, 10.1 TO 30 SQ.CM, GENITALIA (WRVU 10.83) Scheduled Procedures Name Priority Associated Diagnoses Date/Ti me ADJ.TISSUE TRANSFER, REARRANGEMENT, 10.1 TO 30 SQ.CM, GENITALIA (WRVU 10.83) Acquired buried penis 02/08/2024 8:30 AM EDT documented as of this encounter Visit Diagnoses Diagnosis Chest pain, unspecified type Acquired buried penis Other specified disorder of penis documented in this encounter Care Teams Custom Designer Relationship Specialty Start Date End Date Yung Horn MD [address] [place] [address] [place] [address] PCP - General 11/22/16 documented as of this encounter
--- OUTSIDE RECORDS SUMMARY | 2024-01-19 15:13 | XMS_ITS | Encounter Summary ---
Author Organization [facility] Dorothy joshlaurita [place] [id number] Care Team Providers Care Personnel Associate Name Role Phone Yung Horn MD Primary Care Provider [phone] Reason for Referral * Diagnostic Test (Routine) - Closed Specialty Diagnoses / Procedures Referred By Contac t Referred To Contact Radiology Diagnoses Non-cardiac chest pain Procedures XR Fluoro Barium Swallow Thalia Harper APRN [facility] [place] [address] [facility] [address] [place] [address] [place] [address] Referral ID Status Reason Start Date Expiration Date V isits Requested Visits Authorized [id number] Closed Specialty Service Requested 06/27/2017 06/27/2018 1 1 Reason for Visit * Diagnostic Test (Routine) - Closed Specialty Diagnoses / Procedures Referred By Contac t Referred To Contact Radiology Diagnoses Non-cardiac chest pain Procedures XR Fluoro Barium Swallow Thalia Harper APRN [facility] [place] [address] [facility] Rad Xray [address] [place] [address] [place] [address] Referral ID Status Reason Start Date Expiration Date V isits Requested Visits Authorized [id number] Closed Specialty Service Requested 06/27/2017 06/27/2018 1 1 Encounter Details Date Type Department Care Team (Latest Contact Info) Description 06/27/2017 11:00 AM EST - 06/27/2017 11:59 PM [facility] Hospital Encounter XRay at [address] [place] [address] Thalia Harper APRN [facility] GASTROENTEROLOGY DEPT. [place] [id number] Non-cardiac chest pain Discharge Disposition: Home Social History Tobacco Use [...] Sig Dispensed Refills Start Date End Date glipiZIDE (GLUCOTROL) 5 mg Tablet 10 mg 0 03/31/2017 ferrous sulfate 324 mg (65 mg iron) Tablet, Delayed Release (E.C.)Indications:iron deficiency anemia Take 324 mg by mouth. Indications: Iron Deficiency Anemia acetaminophen (TYLENOL) 500 mg Tablet Take 2 tablets by mouth every 6 hours as needed for Pain. 06/10/2015 gabapentin (NEURONTIN) 600 mg Tablet Take 800 mg by mouth 3 times daily. metFORMIN (FORTAMET) 1,000 mg Tablet Extended Rel 24 hr Take 1,000 mg by mouth 2 times daily (with meals). venlafaxine (EFFEXOR-XR) 150 mg Capsule, Sust. Release 24 hr Take 150 mg by mouth daily. 12/17/2018 LORazepam (ATIVAN) 1 mg Tablet Take 1 mg by mouth every 6 hours as needed for Anxiety. 12/25/2019 pantoprazole (PROTONIX) 40 mg Tablet, Delayed Release (E.C.) Take 1 tablet by mouth daily. 90 tablet 3 06/27/2017 12/17/2018 meTOPROLOL succinate (TOPROL-XL) 25 mg Tablet Sustained Release 24 hr take 1 tablet by mouth once daily 0 05/09/2017 12/25/2019 PARoxetine (PAXIL) 30 mg TabletIndications:anxi ety with depression Take 30 mg by mouth every morning. Indications: Anxiety with Depression 12/25/2019 multivitamin (THERAGRAN) Tablet Take 1 tablet by mouth daily. 07/29/2021 cholecalciferol, Vitamin D3, 2,000 unit TabletIndications:arleen min D deficiency Take 1 tablet by mouth. Indications: Vitamin D Deficiency 07/29/2021 lisinopril (PRINIVIL;ZESTRIL) 2.5 mg TabletIndications:diab etic nephropathy Take 2.5 mg by mouth daily. Indications: Diabetic Nephropathy 12/17/2018 ascorbic acid (VITAMIN C) 500 mg Tablet Take 500 mg by mouth daily. 12/17/2018 omeprazole (PRILOSEC) 20 mg Capsule, Delayed Release(E.C.) Take 40 mg by mouth daily. 12/17/2018 documented as of this encounter Plan of Treatment Upcoming Encounters Date Type Department Care Team (Latest Contact Info) Description 02/01/2024 11:15 AM EDT Telephone Pre Admission Testing at [address] [address] 02/07/2024 11:20 AM EDT [place] [address] Manoj Vinson MD [facility] [place] [address] 02/08/2024 8:30 AM EDT Hospital Encounter PACU at [address] [address] Manoj Vinson MD [facility] [place] [address] 02/08/2024 8:30 AM EDT - 02/08/2024 11:00 AM EDT Surgery Main OR at [address] [address] Manoj Vinson MD [facility] [place] [address] ADJ.TISSUE TRANSFER, REARRANGEMENT, 10.1 TO 30 SQ.CM, GENITALIA (WRVU 10.83) Scheduled Procedures Name Priority Associated Diagnoses Date/Ti me ADJ.TISSUE TRANSFER, REARRANGEMENT, 10.1 TO 30 SQ.CM, GENITALIA (WRVU 10.83) Acquired buried penis 02/08/2024 8:30 AM EDT documented as of this encounter Procedures Procedure Name Priority Date/Time Associated Diagnosis Comments XR FLUORO BARIUM SWALLOW (SINGLE CONTRAST) Routine 06/27/2017 11:45 AM EST Non-cardiac chest pain documented in this encounter Results * XR Fluoro Barium Swallow (06/27/2017 11:45 AM EST) Anatomical Region Laterality Modality N/A Radio Fluoroscop y Impressions 06/29/2017 10:04 AM EST 1. ??Small sliding hiatal hernia. 2. ??Small amount of gastroesophageal reflux from a small sliding hiatal hernia. S/P gastric bypass surgery. I have personally reviewed the image(s) and the residents interpretation and agree with the findings, Astrid Salguero at 06/29/2017 10:04 AM Narrative 06/29/2017 10:04 AM EST EXAMINATION: XR FLUORO BARIUM SWALLOW CLINICAL HISTORY: sob, epigastric pain ???hiatal hernia ?paraesophageal hernia; history of gastric bypass surgery in 2009 TECHNIQUE: Double contrast esophagram was performed. Fluoroscopic spot films were obtained. The patient swallowed a 13 mm barium tablet. Fluoro time: 1.93 minutes COMPARISON: Chest CT 04/10/2017 FINDINGS: The esophagus is normal in course and caliber, and is well distended on double contrast views. Esophageal peristalsis is normal. ??The esophageal mucosal pattern is normal. Patient is status post gastric bypass. Prompt gastric emptying. Gastrojejunal anastomosis patent. There is a very small sliding hiatal hernia. Esophageal peristalsis is normal. A small amount of gastroesophageal reflux was witnessed from the small herniated portion of the stomach into the distal esophagus. Procedure Note Astrid Salguero MD - 06/29/2017 EXAMINATION: XR FLUORO BARIUM SWALLOW CLINICAL HISTORY: sob, epigastric pain ?hiatal hernia ?paraesophagealhernia; history of gastric bypass surgery in 2009 TECHNIQUE: Double contrast esophagram was performed. Fluoroscopic spot films wereobtained. The patient swallowed a 13 mm barium tablet. Fluoro time: 1.93 minutes COMPARISON: Chest CT 04/10/2017 FINDINGS: The esophagus is normal in course and caliber, and is well distended ondouble contrast views. Esophageal peristalsis is normal. The esophagealmucosal pattern is normal. Patient is status post gastric bypass. Prompt gastric emptying. Gastrojejunal anastomosis patent. There is a very small sliding hiatal hernia. Esophageal peristalsis is normal. A small amount of gastroesophageal reflux was witnessed from the smallherniated portion of the stomach into the distal esophagus. IMPRESSION 1. Small sliding hiatal hernia. 2. Small amount of gastroesophageal reflux from a small sliding hiatalhernia. S/P gastric bypass surgery. I have personally reviewed the image(s) and the residents interpretationand agree with the findings, Astrid Salguero at 06/29/2017 10:04 AM Electronically signed by: Astrid Salguero Radiology, at108/30/2016 10:04 AM Thalia JonathonRishabhMayuri ROBBI IMG FLUORO ORDERABLE S documented in this encounter Visit Diagnoses Diagnosis Non-cardiac chest pain Other chest pain Acquired buried penis Other specified disorder of penis documented in this encounter Administered Medications Inactive Administered Medications - up to 3 most recent administrations Medication Order MAR Action Action Date Dose Rate Site barium sulfate (E-Z DISK) tablet 700 mg 700 mg, Oral, ONCE, 1 dose, On Mon06/27/17 at 1215, Routine Given 06/27/2017 12:15 PM EST 700 mg barium sulfate (E-Z-HD) 98 % oral suspension 50 mL 50 mL, Oral, ONCE, 1 dose, On Mon06/27/17 at 1215, Routine Given 06/27/2017 12:15 PM EST 50 mLs barium sulfate (EZPAQUE) oral suspension 355 mL 355 mL, Oral, ONCE, 1 dose, On Mon06/27/17 at 1215, Routine Given 06/27/2017 12:15 PM EST 355 mLs documented in this encounter Care Teams Personnel Associate Relationship Specialty Start Date End Date Yung Horn MD [facility] [place] [phone] PCP - General 11/22/16 documented as of this encounter
--- OUTSIDE RECORDS SUMMARY | 2024-01-19 15:13 | XMS_ITS | Encounter Summary ---
[place] [address] Care Team Providers Care Licensed Loan Officer Assistant Name Role Phone Yung Horn MD Primary Care Provider [phone] Reason for Visit * Reason Onset Date Comments Results 06/27/2017 Encounter Details Date Type Department Care Team (Late st Contact Info) Description 06/27/2017 Telephone [place] [phone] Ori Erickson RN Results Social History Tobacco Use Types [...] encounter Miscellaneous Notes * Telephone Encounter - Ori Erickson RN - 06/27/2017 4:00 PM EST Called patient to relay barium swallow results. Discussed results and recommendation with patient and with at his request. Reviewed timing of PPI, take 30 minutes before the first meal of the day. No questions or concerns. Mailed personal pest control service representative form to patient's home address. * Telephone Encounter - Ori Erickson RN - 06/27/2017 3:59 PM EST ----- Message from Thalia Harper APRN sent at 06/27/2017 2:00 PM EST ----- Please call pt Let him know barium swallow showed small hiatal hernia and some reflux. Begin new medication protonix 40mg qd. Stop omeprazole And proceed with Dotty testing. ----- Message ----- From: Department, Radiology Sent: 06/27/2017 1:49 PM To: Thalia Harper APRN documented in this encounter Plan of Treatment Upcoming Encounters Date Type Department Care Team (Latest Contact Info) Description 02/01/2024 11:15 AM EDT Telephone Pre Admission Testing at [address] [address] 02/07/2024 11:20 AM EDT [place] [address] Manoj Vinson MD [facility] [place] [address] 02/08/2024 8:30 AM EDT Hospital Encounter PACU at [address] [address] Manoj Vinson MD [facility] [place] [address] 02/08/2024 8:30 AM EDT - 02/08/2024 11:00 AM EDT Surgery Main OR at [address] [address] Manoj Vinson MD [facility] [place] [address] ADJ.TISSUE TRANSFER, REARRANGEMENT, 10.1 TO 30 SQ.CM, GENITALIA (WRVU 10.83) Scheduled Procedures Name Priority Associated Diagnoses Date/Ti me ADJ.TISSUE TRANSFER, REARRANGEMENT, 10.1 TO 30 SQ.CM, GENITALIA (WRVU 10.83) Acquired buried penis 02/08/2024 8:30 AM EDT documented as of this encounter Visit Diagnoses Not on filedocumented in this encounter Care Teams Licensed Loan Officer Assistant Relationship Specialty Start Date End Date Yung Horn MD [address] [place] [address] PCP - General 11/22/16 documented as of this encounter
--- OUTSIDE RECORDS SUMMARY | 2024-01-19 15:13 | XMS_ITS | Encounter Summary ---
[place] [address] Care Team Providers Care Cupola Worker Name Role Phone Yung Horn MD Primary Care Provider Reason for Referral * Diagnostic Test (Routine) - Closed Specialty Diagnoses / Procedures Referred By Contac t Referred To Contact Cardiology Diagnoses L[place] (dyspnea on exertion) Procedures Echocardiogram Transthoracic([facility] or [facility]) Yung Olsen MD [facility] [place] [address] [facility] [place] [address] Referral ID Status Reason Start Date Expiration Date V isits Requested Visits Authorized [id number] Closed Specialty Service Requested 10/08/2020 11/07/2020 1 1 Reason for Visit * Diagnostic Test (Routine) - Closed Specialty Diagnoses / Procedures Referred By Contac t Referred To Contact Cardiology Diagnoses [place] (dyspnea on exertion) Procedures Echocardiogram Transthoracic([facility] or [facility]) Yung Olsen MD [facility] [place] [address] [facility] [place] [address] Referral ID Status Reason Start Date Expiration Date V isits Requested Visits Authorized [id number] Closed Specialty Service Requested 10/08/2020 11/07/2020 1 1 Encounter Details Date Type Department Care Team (Latest Contact Info) Description 10/08/2020 10:00 AM EDT - 10/08/2020 11:59 PM EDT Hospital Encounter Non-Invasive Cardiology Lab [facility] [place] [address] Yung Olsen MD [facility] [place] [address] [place] (dyspnea on exertion) Discharge Disposition: Home [...] Take 81 mg by mouth Daily. 07/29/2021 Ultimate SoftwareUCH ULTRA2 Kit TEST BLOOD GLUCOSE WITH ALL [...] EDT Telephone Pre Admission Testing at [address] [address] 02/07/2024 11:20 AM EDT Office [place] [address] Manoj Vinson MD [facility] [place] [address] 02/08/2024 8:30 AM EDT Hospital Encounter PACU at [address] [address] Manoj Vinson MD [facility] [place] [address] 02/08/2024 8:30 AM EDT - 02/08/2024 11:00 AM EDT Surgery Main OR at [address] [address] Manoj Vinson MD [facility] [place] [address] ADJ.TISSUE TRANSFER, REARRANGEMENT, 10.1 TO 30 SQ.CM, GENITALIA (WRVU 10.83) Scheduled Procedures Name Priority Associated Diagnoses Date/Ti me ADJ.TISSUE TRANSFER, REARRANGEMENT, 10.1 TO 30 SQ.CM, GENITALIA (WRVU 10.83) Acquired buried penis 02/08/2024 8:30 AM EDT documented as of this encounter Procedures Procedure Name Priority Date/Time Associated Diagnosis Comments ECHO COMPLETE W CONTRAST Routine 10/08/2020 11:12 AM EDT [place] (dyspnea on exertion) documented in this encounter Results * ECHO COMPLETE W CONTRAST (10/08/2020 11:12 AM EDT) Anatomical Region Laterality Modality Other 10/08/2020 Narrative 10/08/2020 11:31 AM EDT Procedure: ?Transthoracic Echocardiogram Patient: ?TAYLOR JOHNSON ? (Age): 1955(64y) Med Rec#: ? [id number] ?Sex: ?M ? Site Loc: ? [facility] ?Ht / Wt: ??178(cm)/113(kg) Pt. Loc: ?Echo Lab ?BSA: ?2.29 Study Date: ?? 10/08/2020 ?Pt. Type: Outpatient Tape: ? Referring: PRETTY Reading: Scotty Deng ([id number]) Upfitter: Janice Eden Outpatient Dietitian: Korey Hill [facility] Diagnosis: *Dyspnea, unspecified (R06.00) BP: ? 100/62 [...] Vmax ?0.48 ? m/sec ? MV deceleration [id number] ?msec ? MV A-wave Vmax ?0.62 ? [...] ? Mid-Inferior ?Normal ? Mid-Inferoseptal ?Normal ? [place]-Septal ? Normal ? [place]-Anterior ? Normal ? [place]-Lateral ?Normal ? [place]-Inferior ? Normal ? [place]-Tip ?Normal ? This report has been electronically signed by: Scotty Deng MD ? 10/08/2020 11:30:38 Images reviewed and interpretation verified [facility] Cardiac Ultrasound Laboratory Procedure Note Scotty Deng MD - 10/08/2020 Procedure: Transthoracic Echocardiogram Patient: TAYLOR SUAREZ(Age): 1955(64y) Med Rec#: [id number] Sex: M Site Loc: [facility] Ht / Wt: 178(cm)/113(kg) Pt. Loc: Echo Lab BSA: 2.29 Study Date: 10/08/2020 Pt. Type: Outpatient Tape: Referring: PRETTY Reading: Sowmya Scotty CarlosMaynor ([id number]) Upfitter: Janice Eden Outpatient Dietitian: Korey Hill [facility] Diagnosis: *Dyspnea, unspecified (R06.00) BP: 100/62 SUMMARY: [...] MV E-wave Vmax 0.48 m/sec MV deceleration [id number] msec MV A-wave Vmax 0.62 m/sec MV [...] Normal Mid-Posterolateral Normal Mid-Inferior Normal Mid-Inferoseptal Normal [place]-Septal Normal [place]-Anterior Normal [place]-Lateral Normal [place]-Inferior Normal [place]-Tip Normal This report has been electronically signed by: Scotty Deng MD 10/08/2020 11:30:38 Images reviewed and interpretation verified [facility] Cardiac Ultrasound Laboratory Yung Olsen MD ECHO ORDERABLES documented in this encounter Visit Diagnoses Diagnosis [place] (dyspnea on exertion) Other dyspnea and respiratory abnormality Acquired buried penis Other specified disorder of penis documented in this encounter Administered Medications Inactive Administered Medications - up to 3 most recent administrations Medication Order MAR Action Action Date Dose Rate Site perflutren protein-A microsphers (Optison) (0.22 mg/mL) injection 0.5 mL 0.5 mL, Intravenous, ONCE PRN, 1 dose, Starting on Kylee 10/08/20 at 1113, Until Kylee 10/08/20 at 1000, for enhancement of sub-optimal echo images, Echo Lab (Intra-Procedure), Routine Given 10/08/2020 10:00 AM EDT 1.5 mLs documented in this encounter Care Teams Cupola Worker Relationship Specialty Start Date End Date Yung Horn MD [address] [place], [place] [address] [address] PCP - General 11/22/16 documented as of this encounter
--- OUTSIDE RECORDS SUMMARY | 2024-01-19 15:13 | XMS_ITS | Encounter Summary ---
Author Organization [facility] [place] [address] Care Team Providers Care Verifier Name Role Phone Yung Horn MD Primary Care Provider [phone] Encounter Details Date Type Department Care Team (Late st Contact Info) Description 09/17/2018 1:00 PM EDT Office Visit [place] [address] Kamala Veloz MD [facility] [place] [address] Weight gain status post gastric bypass Social History Tobacco Use Types Packs/Day Years [...] as of this encounter Progress Notes * Kamala Veloz MD - 09/17/2018 1:00 PM EDT Yung Betancur is a 62-year-old male I was asked to see in consultation at the request of Dr. Robert Ramos for discussion regarding surgical treatment of his previous bypass for weight regain. Heapparently had a gastric bypass back in 2009 and he went from a preop weight of 375 pounds down to 220 but is slowly regained weight and is over 250-260 pounds. His diabetes has been worsening slightly with this weight regain and he complains of some heartburn issues. He attributes a lot of his weight regain problems to some financial crisis that he and his went through where they lost to him some property deals and needed to declare bankruptcy. These stressors in his life have prompted him to eat poorly and not exercise as much. His workup for his GERD has included manometry which showed relatively normal lower esophageal sphincter pressure and relaxation with some evidence of hiatal hernia and essentially normal motility. 48-hour Seth study off medications was negative for acid reflux with no significant SAP for heartburn chest pain cough regurgitation or nausea. Recent endoscopy revealed that small hiatal hernia but no significant ulceration of either his gastrojejunostomy jejunum or esophagus. His stoma appeared slightly large based on measurement with a large snare. He admits to drinking a fair bit of soda daily and has consumed more alcohol in the recent past than usual. I saw the patient in Dr. Ramos's clinic during his appointment and spent approximately 15 minutes in [id number] discussion with the patient to talk about outcomes with revisional surgery for bypass. Overall results for revisional surgery unless there is evidence of gastro-gastric fistula do not result in significant weight loss. I think more importantly his dietary indiscretions due to his recent life stresses have led to his weight gain and the best treatment for him would be to reengagewith a dietitian and perhaps some other support system to deal with some of the stresses where he uses something other than food as his coping mechanisms. I have suggested weight and wellness and I am happy to see him in the future if any other things develop but at this point I do not think the first line of therapy should be any sort of surgical intervention. We did talk about stomal reduction and I will leave that to the discretion of Dr. Ramos however I think long-term results for this procedure have been less than ideal. documented in this encounter Plan of Treatment Upcoming Encounters Date Type Department Care Team (Latest Contact Info) Description 02/01/2024 11:15 AM EDT Telephone Pre Admission Testing at [address] [phone] 02/07/2024 11:20 AM EDT Office [place] [address] Manoj Vinson MD [facility] [address] [place] [address] 02/08/2024 8:30 AM EDT Hospital Encounter PACU at [address] [phone] Manoj Vinson MD [facility] [place] [address] 02/08/2024 8:30 AM EDT - 02/08/2024 11:00 AM EDT Surgery Main OR at [address] [phone] Manoj Vinson MD [facility] [place] [address] ADJ.TISSUE TRANSFER, REARRANGEMENT, 10.1 TO 30 SQ.CM, GENITALIA (WRVU 10.83) Scheduled Procedures Name Priority Associated Diagnoses Date/Ti me ADJ.TISSUE TRANSFER, REARRANGEMENT, 10.1 TO 30 SQ.CM, GENITALIA (WRVU 10.83) Acquired buried penis 02/08/2024 8:30 AM EDT documented as of this encounter Visit Diagnoses Diagnosis Weight gain status post gastric bypass Acquired buried penis Other specified disorder of penis documented in this encounter Care Teams Verifier Relationship Specialty Start Date End Date Yung Horn MD [facility] [place] [address] PCP - General 11/22/16 documented as of this encounter
--- OUTSIDE RECORDS SUMMARY | 2024-01-19 15:13 | XMS_ITS | Encounter Summary ---
Author Organization [facility] [place] [address] Care Team Providers Care Electronic Operator Name Role Phone Yung Horn MD Primary Care Provider [phone] Reason for Visit * Reason Comments Medication Refill Encounter Details Date Type Department Care Team (Late st Contact Info) Description 12/04/2019 [place] [phone] Robert Ramos MD [facility] [place] [address] Social History Tobacco Use Types Packs/Day Years [...] AM EDT Telephone Pre Admission Testing at [address] [phone] 02/07/2024 11:20 AM EDT [place] [address] Manoj Vinson MD [facility] [place] [address] 02/08/2024 8:30 AM EDT Hospital Encounter PACU at [address] [address] Manoj Vinson MD [facility] [place] [address] 02/08/2024 8:30 AM EDT - 02/08/2024 11:00 AM EDT Surgery Main OR at [address] [phone] Manoj Vinson MD [facility] [place] [address] ADJ.TISSUE TRANSFER, REARRANGEMENT, 10.1 TO 30 SQ.CM, GENITALIA (WRVU 10.83) Scheduled Procedures Name Priority Associated Diagnoses Date/Ti me ADJ.TISSUE TRANSFER, REARRANGEMENT, 10.1 TO 30 SQ.CM, GENITALIA (WRVU 10.83) Acquired buried penis 02/08/2024 8:30 AM EDT documented as of this encounter Visit Diagnoses Not on filedocumented in this encounter Care Teams Electronic Operator Relationship Specialty Start Date End Date Yung Horn MD [address] [place] [address] PCP - General 11/22/16 documented as of this encounter
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
--- OUTSIDE RECORDS SUMMARY | 2024-01-19 15:13 | XMS_ITS | Encounter Summary ---
Author Organization [facility] [place] [address] Care Team Providers Care Certified Medical Biller Name Role Phone Yung Horn MD Primary Care Provider [phone] Encounter Details Date Type Department Care Team (Late st Contact Info) Description 08/03/2017 4:00 PM EST Tech [place] [address] Arabella Sears MD [facility] [place] [address] Chest pain, unspecified type Social History Tobacco [...] Notes * Arabella Sears MD - 08/03/2017 4:00 PM EST HIGH-RESOLUTION ESOPHAGEAL MANOMETRY Yung Urrutiaalban [address] [facility] [address] : 1955 STUDY DATE: 07/31/2017 PROVIDER: Arabella Sears MD ([id number]) INDICATION Chest pain METHODS Stationary esophageal manometry was performed with the ManoScan ESO version 3.0 in a supervised setting after verbal consent and after topical anesthesia to the nares. This system uses 36 individual circumferential solid state sensors spaced 1 cm apart. The outer diameter of the probe is 4.2 mm. Length, resting pressure, pressure inversion point (PIP), and relaxation of the lower esophageal sphincter (LES) was measured. The high pressure zone of the upper esophageal sphincter (UES) was measured. Water swallows were provided after a 1-qu-0-minute accommodation period to assess LES function andfunction of the esophageal body. FINDINGS LES (lower esophageal sphincter) Distal border of LES identified at 46.1 cm. Proximal border of LES identified at 42.9 cm. Hiatal hernia present? Yes Basal pressure respiratory mean pressure 17 mmHg (normal = 15-34 mmHg). Residual mean pressure (integrated relaxation pressure - IRP) 6.0 mmHg (normal = <15 mmHg). BODY OF ESOPHAGUS Water Swallows: 10. Failed: 0%. Transmitted (peristaltic): 70%. Panesophageal pressurization: 0% Premature: 0% Rapid: 0% With large breaks: 10%. With small breaks: 60%. DCI (distal contractile integral): 982 mmHg-cm-s (normal is 450 to 5000 mmHg-cm-s). Contractile front velocity: 4.9 cm/s (normal is <9.0 cm/s). Intrabolus pressure (average maximum): 10.3 mmHg (normal is <17.0 mmHg). Distal latency: 6.9 UES (upper esophageal sphincter) Distal border of UES identified at 22.9 cm and extended to 19.2 cm. UES basal pressure 104 mmHg (normal = 34-104 mmHg). Residual pressure 7.5 mmHg (normal = <12 mmHg). IMPRESSION 1. Normal LES resting pressure. 2. Normal LES relaxation (IRP, integrated relaxation pressure). 3. Normal UES resting pressure. 4. Normal UES relaxation. 5. Normal motility in the body of the esophagus. 6. Evidence of a hiatal hernia on this study. 7. Normal DCI (distal contractile integral). This is a measure of contractile vigor. 8. Normal intrabolus pressure. This is a measure of esophageal clearance. *Measurements and diagnostic criteria per [place] 3.0 Classification. These findings assume that mechanical obstruction has been ruled out. Arabella Sears MD Section of Gastroenterology and Hepatology [facility] [place] [address] V: [phone] F: [phone] CC/EC: PCP documented in this encounter Plan of Treatment Upcoming Encounters Date Type Department Care Team (Latest Contact Info) Description 02/01/2024 11:15 AM EDT Telephone Pre Admission Testing at [address] [address] 02/07/2024 11:20 AM EDT [place] [address] Manoj Vinson MD [facility] [address] 02/08/2024 8:30 AM EDT Hospital Encounter PACU at [address] [address] Manoj Vinson MD [facility] [place] [address] 02/08/2024 8:30 AM EDT - 02/08/2024 11:00 AM EDT Surgery Main OR at [address] [address] Manoj Vinson MD [facility] [place] [address] ADJ.TISSUE TRANSFER, REARRANGEMENT, 10.1 TO 30 SQ.CM, GENITALIA (WRVU 10.83) Scheduled Procedures Name Priority Associated Diagnoses Date/Ti me ADJ.TISSUE TRANSFER, REARRANGEMENT, 10.1 TO 30 SQ.CM, GENITALIA (WRVU 10.83) Acquired buried penis 02/08/2024 8:30 AM EDT documented as of this encounter Visit Diagnoses Diagnosis Chest pain, unspecified type Acquired buried penis Other specified disorder of penis documented in this encounter Care Teams Certified Medical Biller Relationship Specialty Start Date End Date Yung Horn MD [facility] [place] [address] PCP - General 11/22/16 documented as of this encounter
--- OUTSIDE RECORDS SUMMARY | 2024-01-19 15:13 | XMS_ITS | Encounter Summary ---
Author Organization [facility] [place] [address] Care Team Providers Care Financial Reporting Accountant Name Role Phone Yung Horn MD Primary Care Provider [phone] Encounter Details Date Type Department Care Team (Late st Contact Info) Description 12/17/2018 10:00 AM EDT Interpretation Only Cardiology at [address] [phone] Neymar Franco Jr., MD [address] [place] [address] Chest pain, unspecified type Social History Tobacco [...] AM EDT Telephone Pre Admission Testing at [address] [phone] 02/07/2024 11:20 AM EDT [place] [address] Manoj Vinson MD [facility] [address] 02/08/2024 8:30 AM EDT Hospital Encounter PACU at [address] [phone] Manoj Vinson MD [facility] [place] [place] [address] 02/08/2024 8:30 AM EDT - 02/08/2024 11:00 AM EDT Surgery Main OR at [address] [address] Manoj Vinson MD [facility] [place] [place] [address] ADJ.TISSUE TRANSFER, REARRANGEMENT, 10.1 TO 30 SQ.CM, GENITALIA (WRVU 10.83) Scheduled Procedures Name Priority Associated Diagnoses Date/Ti me ADJ.TISSUE TRANSFER, REARRANGEMENT, 10.1 TO 30 SQ.CM, GENITALIA (WRVU 10.83) Acquired buried penis 02/08/2024 8:30 AM EDT documented as of this encounter Procedures Procedure Name Priority Date/Time Associated Diagnosis Comments ECG SCAN 12/12/2018 12:00 AM EDT documented in this encounter Results * SCAN DOC: ECG (12/12/2018 12:00 AM EDT) Narrative 12/12/2018 12:00 AM EDT Ordered by an unspecified provider. Scanning Provider MEDIA MGR SCAN EXT O RDR/RSLT documented in this encounter Visit Diagnoses Diagnosis Chest pain, unspecified type Acquired buried penis Other specified disorder of penis documented in this encounter Care Teams Financial Reporting Accountant Relationship Specialty Start Date End Date Yung Horn MD [address] [place] [address] [place] [address] PCP - General 11/22/16 documented as of this encounter
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
--- OUTSIDE RECORDS SUMMARY | 2024-01-19 15:13 | XMS_ITS | Encounter Summary ---
[place] [address] Care Team Providers Care Packing Attendant Name Role Phone Yung Horn MD Primary Care Provider [phone] Reason for Visit * Reason Onset Date Comments Appointment 09/17/2018 Encounter Details Date Type Department Care Team (Late st Contact Info) Description 09/17/2018 Telephone [place] [id number] Sofia Narayanan Appointment Social History Tobacco Use Types Packs/Day Years [...] encounter Miscellaneous Notes * Telephone Encounter - Sofia Narayanan - 09/17/2018 1:56 PM EDT Caller and relationship to patient (if other than patient): Dr. Ramos's office. Best time to reach caller: Anytime Message or Reason for Call: Dr. Ramos put in a referral for Yung to be seen in Endocrinology. Please call Yung to schedule. He can be reached at [phone]. Appt Needed and Reason: yes, possible pharmaco therapy Provider: Dr. Wagner documented in this encounter Plan of Treatment Upcoming Encounters Date Type Department Care Team (Latest Contact Info) Description 02/01/2024 11:15 AM EDT Telephone Pre Admission Testing at [address] [address] 02/07/2024 11:20 AM EDT [place] [address] Manoj Vinson MD [facility] [place] [address] 02/08/2024 8:30 AM EDT Hospital Encounter PACU at [address] [address] Manoj Vinson MD [facility] [address] [place] [address] 02/08/2024 8:30 AM EDT - 02/08/2024 11:00 AM EDT Surgery Main OR at [address] [address] Manoj Vinson MD [facility] [place] [address] ADJ.TISSUE TRANSFER, REARRANGEMENT, 10.1 TO 30 SQ.CM, GENITALIA (WRVU 10.83) Scheduled Procedures Name Priority Associated Diagnoses Date/Ti me ADJ.TISSUE TRANSFER, REARRANGEMENT, 10.1 TO 30 SQ.CM, GENITALIA (WRVU 10.83) Acquired buried penis 02/08/2024 8:30 AM EDT documented as of this encounter Visit Diagnoses Not on filedocumented in this encounter Care Teams Packing Attendant Relationship Specialty Start Date End Date Yung Horn MD [address] [place] [address] [place] [address] PCP - General 11/22/16 documented as of this encounter
--- OUTSIDE RECORDS SUMMARY | 2024-01-19 15:13 | XMS_ITS | Encounter Summary ---
Author Organization [facility] [place] [address] Care Team Providers Care Test Conductor Name Role Phone Yung Horn MD Primary Care Provider [phone] Encounter Details Date Type Department Care Team (Latest Contact Info) Description 07/16/2020 1:00 PM EST Procedure visit [place] [address] Tatiana Munoz APRN [facility] [place] [address] HERR (nonalcoholic steatohepatitis); Alcoholic liver disease Social History Tobacco Use Types Packs/Day Years [...] on file documented as of this encounter Procedure Notes * Tatiana Munoz APRN - 07/16/2020 1:00 PM ESTAssociated Order(s): FIBROSCAN Procedure(s): FIBROSCAN Pre-Procedure Diagnose(s): HERR (nonalcoholic steatohepatitis); Alcoholic liver disease [facility] Liver Fibrosis Assessment Report Indication: Alcoholic steatohepatitis/ HERR Performed by: TATIANA MUNOZ APRN Procedure: Vibration Controlled Transient Elastography (VCTE) or Fibroscan Almond Protocol: Patient's identity, procedure and site were verified, confirmatory pause performed. Discussed procedure including risks and potential complications. Questions answered. Patient verbalizes understanding and wishes to proceed with Fibroscan assessment. Patient was placed in the supine position with right arm in maximum abduction to allow optimal exposure of right lateral abdomen. Patient was briefly assessed. Testing was performed in the mid-axillary location. 50Hz Shear Wave pulses were applied and the resulting Shear Wave and Propagation Speed was detected with a 3.5MHz ultrasonic signal, using the Fibroscan probe. Skin to liver capsule distance and liver parenchyma were accessed during the entire examination with the Fibroscan probe. Patient was instructed to breathe normally and abstain from sudden movements during the procedure. At least ten Sheer Waves were produced; individual measurements of each Shear Wave were calculated. Patient tolerated the procedure well with no complications. Fibroscan Results: Median kPa: 8.7 kPa Mean IQR: 17 (goal is <30 %) Number of valid measurements: 20 (at least 10 required) Number of invalid measurements: 17 Predicted fibrosis stage: F2-3 CAP (dB/m): 395 Estimated steatosis grade: 3/3 % hepatocytes affected: >66% Interpretation: Based on this Fibroscan result, history, clinical examination and review of laboratory and radiological data, this patient likely has stage 2-3 liver fibrosis and grade 3 steatosis affecting over 66%of hepatocytes. documented in this encounter Plan of Treatment Upcoming Encounters Date Type Department Care Team (Latest Contact Info) Description 02/01/2024 11:15 AM EDT Telephone Pre Admission Testing at [address] [address] 02/07/2024 11:20 AM EDT Office [place] [address] Manoj Vinson MD [facility] [place] [place] [address] 02/08/2024 8:30 AM EDT Hospital Encounter PACU at [address] [address] Manoj Vinson MD [facility] [place] [place] [address] 02/08/2024 8:30 AM EDT - 02/08/2024 11:00 AM EDT Surgery Main OR at [address] [address] Manoj Vinson MD [facility] [place] [address] ADJ.TISSUE TRANSFER, REARRANGEMENT, 10.1 TO 30 SQ.CM, GENITALIA (WRVU 10.83) Scheduled Procedures Name Priority Associated Diagnoses Date/Ti me ADJ.TISSUE TRANSFER, REARRANGEMENT, 10.1 TO 30 SQ.CM, GENITALIA (WRVU 10.83) Acquired buried penis 02/08/2024 8:30 AM EDT documented as of this encounter Procedures Procedure Name Priority Date/Time Associated Diagnosis Comments [id number] Routine 07/16/2020 1:00 PM EST HERR (nonalcoholic steatohepatitis) Alcoholic liver disease documented in this encounter Results * [id number] (07/16/2020 1:00 PM EST) Narrative Tataina Munoz APRN - 07/16/2020 1:00 PM EST Tatiana Munoz APRN ? 07/16/2020 ??2:18 PM [facility] Liver Fibrosis Assessment Report Indication: ?? Alcoholic steatohepatitis/ HERR ?? Performed by: ??TATIANA MUNOZ APRN Procedure: Vibration Controlled Transient Elastography (VCTE) or Fibroscan [place] Protocol: Patient's identity, procedure and site were verified, confirmatory pause performed. Discussed procedure including risks and potential complications. Questions answered. Patient verbalizes understanding and wishes to proceed with Fibroscan assessment. Patient was placed in the supine position with right arm in maximum abduction to allow optimal exposure of right lateral abdomen. Patient was briefly assessed. Testing was performed in the mid-axillary location. 50Hz Shear Wave pulses were applied and the resulting Shear Wave and Propagation Speed was detected with a 3.5MHz ultrasonic signal, using the Fibroscan probe. Skin to liver capsule distance and liver parenchyma were accessed during the entire examination with the Fibroscan probe. Patient was instructed to breathe normally and abstain from sudden movements during the procedure. At least ten Sheer Waves were produced; individual measurements of each Shear Wave were calculated. Patient tolerated the procedure well with no complications. Fibroscan Results: Median kPa: 8.7 kPa Mean IQR: 17 (goal is <30 %) Number of valid measurements: 20 (at least 10 required) Number of invalid measurements: 17 Predicted fibrosis stage: F2-3 CAP (dB/m): 395 Estimated steatosis grade: 3/3 % hepatocytes affected: >66% Interpretation: Based on this Fibroscan result, history, clinical examination and review of laboratory and radiological data, this patient likely has stage 2-3 liver fibrosis and grade 3 steatosis affecting over 66% of hepatocytes. ?? 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
--- OUTSIDE RECORDS SUMMARY | 2024-01-19 15:13 | XMS_ITS | Encounter Summary ---
[facility] Organization [facility] [place] [address] Care Team Providers Care Key Punch Operator Name Role Phone Yung Horn MD Primary Care Provider [phone] Reason for Visit * Auth/Cert Specialty Diagnoses / Procedures Referred By Contac t Referred To Contact Diagnoses nccp Procedures PRO UPPER GI ENDOSCOPY, DIAGNOSTIC EGD, UPPER GI ENDOSCOPY Referral ID Status Reason Start Date Expiration Date Visits Re quested Visits Authorized [id number] 1 1 Encounter Details Date Type Department Care Team (Latest Contact Info) Description 07/31/2017 10:40 AM EST - 07/31/2017 1:32 PM EST Hospital Encounter [place] [address] Chevy Mackenzie MD [facility] [place] [address] Discharge Disposition: Home Social History Tobacco Use [...] Sign Reading Time Taken Comments Blood Pressure 135/91 07/31/2017 1:00 PM EST Pulse 81 07/31/2017 12:35 PM EST Temperature - - Respiratory Rate 16 07/31/2017 12:50 PM EST Oxygen Saturation 93% 07/31/2017 1:00 PM EST Inhaled Oxygen Concentration - - Weight - - Height - - Body Mass Index - - documented in this encounter Discharge Instructions * Discharge Instructions* Priyanka Roland RN - 07/31/2017 12:45 PM EST Please call [phone] before 8pm Mon-Fri with problems, questions or concerns. If you call after 8pm or on weekends, call the Hospital at [phone] and ask to speak to the Senior Engineering Associate internal controls specialist and the seismograph operator helper will contact that person for you. Please call [phone] before 8pm Mon-Fri with problems, questions or concerns. If you call after 8pm or on weekends, call the Hospital at [phone] and ask to speak to the Senior Engineering Associate internal controls specialist and the seismograph operator helper will contact that person for you. UPPER GI ENDOSCOPY with Godwin PH Capsule WHAT TO EXPECT AFTER THE PROCEDEURE After the test you may feel a little more gassy or bloated than usual. This is normal. ACTIVITY Because of the sedation that you recieved Your judgement and reaction time are affected ?? Go home and rest quietly for the remainder of the day. You may resume your normal activities tomorrow. ?? Change from one position to the next slowly. You may loose your balance unexpectedly. ?? Be careful on stairs, as you may be unsteady on your feet. FOR THE NEXT 24 HRS ?? DO NOT DRIVE OR OPERATE ANY MACHINERY ?? DO NOT DRINK ALCOHOLIC BEVERAGES ?? DO NOT SIGN LEGAL DOCUMENTS or make important decisions ?? If you are a smoker: DO NOT SMOKE WHILE YOU ARE ALONE Diet ?? Start by eating small portions of foods that ordinarily won't upset your stomach. Be gentle withwhat you choose to start with. ?? Drink plenty of fluids ( unless otherwise told not to) Medications ?? You may have a mild sore throat. Ice chips, popsicles, over- the-counter throat lozenges or spaymay help numb your throat. This procedure should not cause a fever. ?? You may experience some chest discomfort that may or may not get worse with swallowing. If this happens try drinking a warm liquid which will help relax the esophagus. Or use pain medicine that you normally would use ( Tylenol, advil ...). Peppermint tea may also be useful. This discomfort usually passes after 24-48 hrs. Other Instructions Be sure to carry your molasses coloring operator within 3 feet at all times . Follow the instructions that were givento you along with your diary. IV SITE may get red or tender. This is normal. You may use warm compresses 20 minutes at a time on and off for the next day or so. If the tenderness +/or redness increases or foul drainage and a red streak occurs, please contact your PCP WHEN SHOULD YOU CALL FOR HELP? Call 911 anytime you think that you need emergency care. For example, call if: You passed out (lost consciousness). You cough up blood. You vomit blood or what looks like coffee grounds. You pass maroon or very bloody stools. Call your doctor now or seek immediate medical attention if: Severe chest pain that gets worse with swallowing You have trouble swallowing. You have belly pain. Your stools are black or tarlike or have streaks of blood. You are sick to your stomach or cannot keep fluids down. Watch closely for changes in your health, and be sure to contact your doctor IF Your throat still hurts after a day or two You do not get better as expected. Monday-Monday Same Day Endo [phone] 7a-8p Otherwise contact [phone] and ask to speak to the apprentice technician internal controls specialist Charline Aaron RN [phone] if any problems with molasses coloring operator Follow-up care is a do part of your treatment and safety. Be sure to make and go to all appointments, and call your doctor if you are having problems. Instructions have been reviewed and patient expresses understanding documented in this encounter Medications at Time [...] daily. 12/17/2018 documented as of this encounter H&P Notes * Chevy Mackenzie MD - 07/31/2017 11:44 AM EST Gastroenterology and Hepatology Pre-Procedure History and Physical Exam Procedure: EGD: Indication: Atypical chest pian, negative cardiac cath, on protonix, history of RYGB. Plan for EGD with godwin probe. Of note, pt had RYGB 2006 (320 to 212lbs, now 250 lbs), endorses less satiety, plan to evaluate pouch at time of endoscopy. Patient Active Problem List Diagnosis Code ??? Peyronie's disease N48.6 ??? Male erectile dysfunction N52.9 ??? Chest pain R07.9 EXAM: HEENT: Airway examined, oropharynx clear Mallampati Score: II (soft palate, uvula, fauces visible) LUNGS: Clear to auscultation HEART: Regular rate and rhythm, normal S1, S2 ABDOMEN: Normal bowel sounds, soft, non tender, non distended, A/P Proceed with the planned endoscopic procedure. ASA 3 - Patient with moderate systemic disease with functional limitations Sedation Plan: anesthesia Risks and benefits of the procedure explained to the patient. Consent signed. Electronically signed by: Chevy Mackenzie MD Department of Gastroenterology [facility] 07/31/2017 documented in this encounter Plan of Treatment Upcoming Encounters Date Type Department Care Team (Latest Contact Info) Description 02/01/2024 11:15 AM EDT Telephone Pre Admission Testing at [address] [address] 02/07/2024 11:20 AM EDT [place] [address] Manoj Vinson MD [facility] [place] [address] 02/08/2024 8:30 AM EDT Hospital Encounter PACU at [address] [address] Manoj Vinson MD [facility] [place] [address] 02/08/2024 8:30 AM EDT - 02/08/2024 11:00 AM EDT Surgery Main OR at [address] [address] Manoj Vinson MD [facility] [place] [address] ADJ.TISSUE TRANSFER, REARRANGEMENT, 10.1 TO 30 SQ.CM, GENITALIA (WRVU 10.83) Scheduled Procedures Name Priority Associated Diagnoses Date/Ti me ADJ.TISSUE TRANSFER, REARRANGEMENT, 10.1 TO 30 SQ.CM, GENITALIA (WRVU 10.83) Acquired buried penis 02/08/2024 8:30 AM EDT documented as of this encounter Procedures Procedure Name Priority Date/Time Associated Diagnosis Comments EGD, UPPER GI ENDOSCOPY (WRVU 2.09) 07/31/2017 12:14 PM EST Non-cardiac chest pain UPPER GI ENDOSCOPY Routine 07/31/2017 12 :08 PM EST documented in this encounter Results * UPPER GI ENDOSCOPY (07/31/2017 12:08 PM EST) Pathologist [facility] UPPER GI ENDOSCOPY [facility] Endoscopy Procedure Date: 07/31/2017 12:08 PM ? Patient Name: Yung Betancur ? Date of : 1955 ? Age: 61 ? Order #: [id number] ? Instrument Name: [id number] ? Procedure: ? Upper GI endoscopy Indications: ? Atypical chest pain, history of RYGB Providers: ? Chevy Mackenzie MD, Ermelinda Hanna, ? RN, Keyonna Ramirez, Chemical Weigher Referring MD: ?Yung Horn, Thalia Harper MD Medicines: ? Fentanyl 200 micrograms IV, Midazolam ? 4.5 mg IV Complications: ? No immediate complications. Procedure: ? Pre-Anesthesia Assessment: ? - Prior to the procedure, a History ? and Physical was performed, and ? patient medications and allergies ? were reviewed. The patient is ? competent. The risks and benefits of ? the procedure and the sedation ? options and risks were discussed with ? the patient. All questions were ? answered and informed consent was ? obtained. Patient identification and ? proposed procedure were verified by ? the physician and the nurse in the ? pre-procedure area in the procedure ? room. Mental Status Examination: ? alert and oriented. Airway ? Examination: normal oropharyngeal ? airway and neck mobility. Respiratory ? Examination: clear to auscultation. ? CV Examination: normal. ASA Grade ? Assessment: II - A patient with mild ? systemic disease. After reviewing the ? risks and benefits, the patient was ? deemed in satisfactory condition to ? undergo the procedure. The anesthesia ? plan was to use moderate sedation / ? analgesia (conscious sedation). ? Immediately prior to administration ? of medications, the patient was ? re-assessed for adequacy to receive ? sedatives. The heart rate, ? respiratory rate, oxygen saturations, ? blood pressure, adequacy of pulmonary ? ventilation, and response to care ? were monitored throughout the ? procedure. The physical status of the ? patient was re-assessed after the ? procedure. ? The procedure, indications, benefits, ? risks and alternatives were explained ? to the patient. Specifically ? discussed were potential ? complications including, but not ? limited to, bleeding, perforation, ? infection, missing a cancer, and ? adverse medication reactions. The ? Colonoscope was inserted in the ? mouth, and under direct ? visualization, advanced to jejunum. ? Careful inspection was made as the ? colonoscope was withdrawn. The upper ? GI endoscopy was accomplished without ? difficulty. The patient tolerated the ? procedure well. ? Findings: ? The examined esophagus was normal. Regular Z-line/GE ? junction at 40cm from the incisors. ? Hiatal hernia noted (Diaphragmatic pinch at 41cm from ? the incisors). ? 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 ? The gastrojejunal anastomosis was dilated ? (anastamosis estimated at 5.5cm vs 3cm via large ? snare), the mucosa was healthy in was characterized ? by healthy appearing mucosa. ? The gastric pouch was estimated at 9cm (The ? gastrojejunal anastamosis noted at 49cm from the ? incisors). This was traversed. The gxfow-qm-womaani ? limb was characterized by healthy appearing mucosa. ? The examined jejunum was normal. ? Moderate Sedation: ? I was present during the intraservice time as ? documented by the sedation RN. Impression: ?- No source of patient symptoms ? identified on this exam ? 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 - Normal esophagus, no evidence of ? esophagitis. ? - Small hiatal hernia. ? - Normal examined jejunum. Recommendation: ?- Discharge to home ? - Resume daily PPI once pH testing ? completed ? - F/u pH testing ? - Consider endoscopic revision of ? gastric pouch for weight regain post ? RYGB following completion of workup ? of atypical chest pain ? Attending Participation: ? I personally performed the entire procedure. ? Dr. Chevy Mackenzie Chevy Mackenzie MD 07/31/2017 12:57:22 PM Number of Addenda: 0 Note Initiated On: 07/31/2017 12:08 PM PROVATION 07/31/2017 12:0 8 PM EST Yung Hron MD GENERAL SURGICAL ORD ERABLES PROVATION documented in this encounter Visit Diagnoses Not on filedocumented in this encounter Administered Medications Inactive Administered Medications - up to 3 most recent administrations Medication Order MAR Action Action Date Dose Rate Site lactated Ringers infusion 100 mL/hr, Intravenous, CONTINUOUS, Starting on Mon07/31/17 at 1130, Until Mon07/31/17 at 1532, Endoscopy (Day of Procedure) documented in this encounter Active and Recently Administered Medications Times are shown in EST. Continuous Medication Order 07/29/2017 07/30/2017 07/31/2017 lactated Ringers infusion 100 mL/hr, Intravenous, CONTINUOUS, Starting on Mon07/31/17 at 1130, Until Mon07/31/17 at 1532, Endoscopy (Day of Procedure) 1130 (Due) PRN Medication Order 07/29/2017 07/30/2017 07/31/2017 fentaNYL 50 mcg/mL multi-dose injection (CANCELED) ONCE PRN, Starting on Mon07/31/17 at 1220, Until Mon07/31/17 at 1532, Intra-Operative (Intra-Procedure), Routine 1219 (Given - Provid er: Ermelinda Hanna RN)1222 (Given - Provider: Ermelinda Hanna RN)1225 (Given - Provider: Ermelinda Hanna RN)1228 (Given - Provider: Ermelinda Hanna RN)1231 (Given - Provider: Ermelinda Hanna RN)1235 (Given - Provider: Ermelinda Hanna RN) midazolam (PF) (VERSED) 1 mg/mL multi-dose injection (CANCELED) ONCE PRN, Starting on Mon07/31/17 at 1219, Until Mon07/31/17 at 1532, Intra-Operative (Intra-Procedure), Routine 1219 (Given - Provid er: Ermelinda Hanna RN)1222 (Given - Provider: Ermelinda Hanna RN)1225 (Given - Provider: Ermelinda Hanna RN)1228 (Given - Provider: Ermelinda Hanna RN)1234 (Given - Provider: Ermelinda Hanna RN) documented in this encounter Care Teams Key Punch Operator Relationship Specialty Start Date End Date Yung Horn MD [address] [place] [address] PCP - General 11/22/16 documented as of this encounter
--- OUTSIDE RECORDS SUMMARY | 2024-01-19 15:13 | XMS_ITS | Encounter Summary ---
Author Organization [facility] [place] [address] Care Team Providers Care Part Time Flexible Clerk Name Role Phone Yung Horn MD Primary Care Provider [phone] Reason for Visit * Reason Comments Medication Refill Encounter Details Date Type Department Care Team (Late st Contact Info) Description 12/06/2020 [place] [phone] Robert Ramos MD [facility] [place] [address] HERR (nonalcoholic steatohepatitis) Social History Tobacco Use [...] EDT Telephone Pre Admission Testing at [address] [address] 02/07/2024 11:20 AM [place]T [place] [phone] Manoj Vinson MD [facility] UROLOGY [place], [place] [id number] 02/08/2024 8:30 AM EDT Hospital Encounter PACU at [address] [phone] Manoj Vinson MD [facility] [place] [place] [address] 02/08/2024 8:30 AM EDT - 02/08/2024 11:00 AM EDT Surgery Main OR at [address] [phone] Mnaoj Vinson MD [facility] [place] [address] ADJ.TISSUE TRANSFER, REARRANGEMENT, 10.1 TO 30 SQ.CM, [...] penis documented in this encounter Care Teams Part Time Flexible Clerk Relationship Specialty Start Date End Date Yung Horn MD [address] [place] [address] PCP - General 11/22/16 documented as of this encounter
--- OUTSIDE RECORDS SUMMARY | 2024-01-19 15:13 | XMS_ITS | Encounter Summary ---
Author Organization [facility] [place] [address] Care Team Providers Care Technical Services Librarian Name Role Phone Yung Horn MD Primary Care Provider [phone] Reason for Visit * Auth/Cert Specialty Diagnoses / Procedures Referred By Contac t Referred To Contact Diagnoses nccp Procedures PRO UPPER GI ENDOSCOPY, DIAGNOSTIC EGD, UPPER GI ENDOSCOPY Referral ID Status Reason Start Date Expiration Date Visits Re quested Visits Authorized [id number] 1 1 Encounter Details Date Type Department Care Team (Late st Contact Info) Description 07/31/2017 1:00 PM EST - 07/31/2017 1:30 PM EST Surgery [place] [phone] Chevy Mackenzie MD [facility] [place] [address] EGD, UPPER GI ENDOSCOPY (WRVU 2.09) Social History Tobacco Use Types Packs/Day Years [...] - 07/31/2017 12:45 PM EST Please call [phone] before 8pm Mon-Fri with problems, questions or concerns. If you call after 8pm or on weekends, call the Hospital at [phone] and ask to speak to the Paper Mill Superintendent regional extension service specialist and the cement conveyor operator will contact that person for you. Please call [phone] before 8pm Mon-Fri with problems, questions or concerns. If you call after 8pm or on weekends, call the Hospital at [phone] and ask to speak to the Paper Mill Superintendent regional extension service specialist and the cement conveyor operator will contact that person for you. UPPER [...] Other Instructions Be sure to carry your ux information architect within 3 feet at all times . [...] WHEN SHOULD YOU CALL FOR HELP? Call [phone] anytime you think that you need emergency [...] better as expected. Monday-Monday Same Day Endo [phone] 7a-8p Otherwise contact [phone] and ask to speak to the processing associate regional extension service specialist Charline Aaron RN [phone] if any problems with ux information architect Follow-up care is a do part of [...] by: Chevy Mackenzie MD Department of Gastroenterology [facility] 07/31/2017 documented in this encounter Plan of Treatment Upcoming Encounters Date Type Department Care Team (Latest Contact Info) Description 02/01/2024 11:15 AM EDT Telephone Pre Admission Testing at [address] [address] 02/07/2024 11:20 AM EDT [place] [address] Manoj Vinson MD [facility] [place] [address] 02/08/2024 8:30 AM EDT Hospital Encounter PACU at [address] [address] Manoj Vinson MD [facility] [place] [address] 02/08/2024 8:30 AM EDT - 02/08/2024 11:00 AM EDT Surgery Main OR at [address] [address] Manoj Vinson MD [facility] [place] [address] ADJ.TISSUE TRANSFER, REARRANGEMENT, 10.1 TO 30 SQ.CM, [...] UPPER GI ENDOSCOPY (07/31/2017 12:08 PM EST) UPPER GI ENDOSCOPY [facility] Endoscopy Procedure Date: 07/31/2017 12:08 PM ? Patient Name: Yung Betancur ? Date of : 1955 ? Age: 61 ? Order #: [id number] ? Instrument Name: [id number] ? Procedure: ? Upper GI endoscopy Indications: ? Atypical chest pain, history of RYGB Providers: ? Chevy Mackenzie MD, Ermelinda Hanna, ? RN, Keyonna Ramirez, Variety Saw Operator Referring MD: ?Yung Horn, Thalia Harper MD [...] the ? incisors). This was traversed. The atsca-tz-vbjdepo ? limb was characterized by healthy appearing [...] PROVATION 07/31/2017 12:0 8 PM EST Yung Horn MD GENERAL SURGICAL ORD ERABLES PROVATION documented in this encounter Visit Diagnoses Diagnosis Non-cardiac chest pain Other chest pain Acquired buried penis Other specified disorder of penis documented in this encounter Administered Medications Inactive Administered Medications - up to 3 most recent administrations Medication Order MAR Action Action Date Dose Rate Site fentaNYL 50 mcg/mL multi-dose injection ONCE PRN, Starting on Mon07/31/17 at 1220, Until Mon07/31/17 at 1532, Intra-Operative (Intra-Procedure), Routine Given 07/31/2017 12:35 PM EST 25 mcg Right Arm Given 07/31/2017 12:31 PM EST 25 mcg R ight Arm Given 07/31/2017 12:28 PM EST 25 mcg R ight Arm lactated Ringers infusion 100 mL/hr, Intravenous, CONTINUOUS, Starting on Mon07/31/17 at 1130, Until Mon07/31/17 at 1532, Endoscopy (Day of Procedure) midazolam (PF) (VERSED) 1 mg/mL multi-dose injection ONCE PRN, Starting on Mon07/31/17 at 1219, Until Mon07/31/17 at 1532, Intra-Operative (Intra-Procedure), Routine Given 07/31/2017 12:34 PM EST 0.5 mg Righ t Arm Given 07/31/2017 12:28 PM EST 1 mg R ight Arm Given 07/31/2017 12:25 PM EST 1 mg R ight Arm documented in this encounter Active and Recently [...] RN) documented in this encounter Care Teams Technical Services Librarian Relationship Specialty Start Date End Date Yung Horn MD [address] [place] [address] PCP - General 11/22/16 documented as of this encounter
--- OUTSIDE RECORDS SUMMARY | 2024-01-19 15:13 | XMS_ITS | Encounter Summary ---
Author Organization [facility] [place] [address] Care Team Providers Care Identity Access Management Architect Name Role Phone Yung Horn MD Primary Care Provider [phone] Encounter Details Date Type Department Care Team (Late st Contact Info) Description 01/17/2020 Telephone Cardiology at [address] [phone] Yung Olsen MD [facility] [place] [address] Social History Tobacco Use Types Packs/Day Years [...] AM EDT Telephone Pre Admission Testing at [address] [address] 02/07/2024 11:20 AM EDT [place] [address] Manoj Vinson MD [facility] [address] 02/08/2024 8:30 AM EDT Hospital Encounter PACU at [address] [address] Manoj Vinson MD [facility] [place] [address] 02/08/2024 8:30 AM EDT - 02/08/2024 11:00 AM EDT Surgery Main OR at [address] [address] aMnoj Vinson MD [facility] [place] [address] ADJ.TISSUE TRANSFER, REARRANGEMENT, 10.1 TO 30 SQ.CM, GENITALIA (WRVU 10.83) Scheduled Procedures Name Priority Associated Diagnoses Date/Ti me ADJ.TISSUE TRANSFER, REARRANGEMENT, 10.1 TO 30 SQ.CM, GENITALIA (WRVU 10.83) Acquired buried penis 02/08/2024 8:30 AM EDT documented as of this encounter Visit Diagnoses Not on filedocumented in this encounter Care Teams Identity Access Management Architect Relationship Specialty Start Date End Date Yung Horn MD [facility] [place] [address] PCP - General 11/22/16 documented as of this encounter
--- OUTSIDE RECORDS SUMMARY | 2024-01-19 15:13 | XMS_ITS | Encounter Summary ---
Author Organization [facility] [place] [address] Care Team Providers Care Electric Tripper Machine Operator Name Role Phone Yung Horn MD Primary Care Provider [phone] Encounter Details Date Type Department Care Team (Late st Contact Info) Description 01/12/2021 9:00 AM EDT Office [place] [phone] Tatiana Call APRN [facility] [address] Elevated liver enzymes Social History Tobacco Use Types Packs/Day Years [...] Sign Reading Time Taken Comments Blood Pressure 97/73 01/12/2021 9:14 AM EDT Pulse 76 01/12/2021 9:14 AM EDT Temperature - - Respiratory Rate - - Oxygen Saturation - - Inhaled Oxygen Concentration - - Weight 112.1 kg (247 lb 3.2 oz) 01/12/2021 9:14 AM EDT Height - - Body Mass Index 35.47 10/08/2020 9:17 AM EDT documented in this encounter Patient Instructions * Patient Instructions* Tatiana Call APRN - 01/12/2021 9:00 AM EDT Plan: - Check blood work today - 3L. We will check your liver tests and your blood levels. - I will get your liver biopsy results from [facility] to look at with out pathologists - Monitor your blood pressure at home. I would speak with your primary care provider about stoppingLisinopril because your blood pressure is low today. This could be the cause of your dizziness. - Congratulations on not drinking alcohol - keep up the good work! - Let's follow up in 6-12 months, or sooner if needed based on the second read of the liver biopsy. documented in this encounter Progress Notes * Tatiana Call APRN - 01/12/2021 9:00 AM EDT Hepatology Follow Up Note Patient: Yung Betancur Gender: male : 1955 Provider: Tatiana Call NP Referring Physician: Yung Horn MD HISTORY OF PRESENT ILLNESS Yung Betancur is a 65 y.o. year old male with history of type 2 diabetes, hypertension, hyperlipidemia, obesity, non-obstructive CAD, s/p gastric bipass (2009), GERD, and likely a combination of HERR/ALVARO with question of advanced fibrosis. He first presented with concerns about his liver function in 07/2020 after a hospitalization in 06/2020 with elevated liver enzymes and an elevated bilirubin. He had a fever at that time, and has subsequently had his gallbladder removed. When I last saw him in 07/2020 his fibroscan showed stage 2-3 fibrosis and his liver enzymes had come down. He just had his gallbladder out 3 weeks ago. He was getting pain on his right side and that pain has subsequently resolved since having his gallbladder removed. He had surgery done at [facility] and has recovered well from surgery. He has been feeling short of breath and dizzy. He has seen cardiology with negative workup. He was putting up a TV yesterday and got very dizzy and short of breath. He feels like his stomach gets sore occasionally. Ever since his gastric bipass surgery in 2009 he has a hard time digesting food. Hasn't had any alcohol since before 2019. ROS: Constitutional: no fatigue, fever, chills, no change in weight >10lbs in last 6 months Eye: no visual changes ENT: no URI symptoms Cardio: no chest pain, palpitations Resp: endorses SOB GI: see HPI. No blood in stools, no nausea/vomitting. No ascites. PAST MEDICAL/SURGICAL HISTORY HERR/ALVARO - Presented 06/2020 with fevers, elevated liver enzymes and elevated bilirubin. - viral hepatitis panel negative, iron studies negative for overload - fibroscan 07/2020: 8.7 kPa, 17% IQR, 06/25, F2-3, CAP 395 Diabetes Hypertension H/o Gastic Bipass in 2009- lost nearly 200 lbs. Was 375 lbs prior to surgery. VIJAY- uses CPAP MEDICATIONS Outpatient Medications Marked as Taking for the 01/12/21 encounter (Office Visit) with Tatiana Call APRN Medication Sig Dispense Refill ??? pantoprazole EC (Protonix) 40 mg Tablet, Delayed Release (E.C.) TAKE 1 TABLET BY MOUTH TWICE DAILY BEFORE MEALS 60 tablet 1 ??? dulaglutide (Trulicity) 0.75 mg/0.5 mL Pen Injector Inject 0.75 mg subcutaneously once a week. ??? Venlafaxine 225 mg Tablet Extended Rel 24 hr 0 ??? aspirin 81 mg Tablet, Chewable Take 81 mg by mouth Daily. ??? ChupaMobileTOUCH ULTRA2 Kit TEST BLOOD GLUCOSE WITH ALL [...] by mouth 2 times daily (with meals). Lisinopril 10mg daily. ALLERGIES Allergies Allergen Reactions ??? Bandages, Cohesive Rash ??? Adhesive Tape Rash SOCIAL HISTORY Lives with , 5 dogs. 5 children, seperately. 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 Stopped drinking on 07/01/20 when admitted at [facility]. FAMILY HISTORY PHYSICAL EXAM Vitals: 01/12/21 0914 BP: 97/73 Pulse: 76 Weight: 112.1 kg (247 lb 3.2 oz) Body mass index is 35.47 kg/m??. Gen: Overweight, sitting comfortably in no apparent distress. Skin: no spider angiomata, no palmar erythema, no jaundice. HEENT: Sclerae anicteric, pupils equal, round, react to light. Pharynx unremarkable. Neck is supple, no adenopathy, no thyromegaly. Abdomen: Normal bowel sounds; soft, non distended. Healing scars from laproscopic CCY evident. No evidence of ascites Extremities: No edema. Neuro: alert and oriented x3, no asterixis or tremor. Lab Results Component Value Date WBC 6.5 07/16/2020 HGB 13.5 (L) 07/16/2020 HCT 40.4 (L) 07/16/2020 MCV 91.8 07/16/2020 PLATELET 234 07/16/2020 No results for input(s): INR in the last 168 hours. Lab Results Component Value Date ALT 44 07/16/2020 AST 36 07/16/2020 ALKPHOS 91 07/16/2020 BILITOT 0.6 07/16/2020 Chemistry Component Value Date/Time NA 137 07/16/2020 1211 K 5.0 07/16/2020 1211 CL 102 07/16/2020 1211 CO2 24 07/16/2020 1211 BUN 22 (H) 07/16/2020 1211 CREATININE 1.29 07/16/2020 1211 Component Value Date/Time CALCIUM 9.3 07/16/2020 1211 ALKPHOS 91 07/16/2020 1211 AST 36 07/16/2020 1211 ALT 44 07/16/2020 1211 BILITOT 0.6 07/16/2020 1211 Biopsy 12/22/2020: Final Diagnosis A. GALLBLADDER, CHOLECYSTECTOMY: - Chronic cholecystitis - Cholelithiasis B. LIVER, BIOPSY: - Subcapsular liver tissue with thermal cautery artifact - At least one portal tract with mild chronic inflammation SEE COMMENT Comment: No clinical history or indication for liver biopsy is received with this case. Subcapsular tissue is suboptimal for medical liver evaluation and thermal cautery artifact additionally limits this sample. ASSESSMENT/PLAN Yung Betancur is a 65 y.o. male with history of type 2 diabetes, hypertension, sleep apnea, h/o gastric bipass and likely a combination of alcoholic steatohepatitis (ALVARO) and non-alcoholic steatohepatitis (HERR) with moderate fibrosis. He had elevated bilirubin and elevated liver enzymes in 06/2020which I suspect was secondary to another process, perhaps cholecystitis. He was told he had cirrhosis at that time, however I do not believe he has cirrhosis as his fibroscan showed stage 2-3 fibrosis and he does not have any other clinical signs of cirrhosis (platelets normal, no signs on exam). He recently had a liver biopsy at the time of his CCY and I would like to have our pathologists review that biopsy to further evaluate the level of fibrosis (if able to determine with sub-capsular specimen). I congratuated him on his alcohol abstinence and encouraged him to continue to abstain from alcoholas I suspect he has a component of ALVARO as well as HERR. Regarding his shortness of breath and dizziness, I will check his blood work today [facility]. His blood pressure is low today and he is taking Lisinopril (for renal protection d/t diabetes), and orthostasis could be the cause of his symptoms. I encouraged him to check his BP at home and follow up with his PCP regarding his blood pressure medication. Plan: - Check blood work today - 3L. We will check your liver tests and your blood levels. - I will get your liver biopsy results from [facility] to look at with out pathologists - Monitor your blood pressure at home. I would speak with your primary care provider about stoppingLisinopril because your blood pressure is low today. This could be the cause of your dizziness. - Congratulations on not drinking alcohol - keep up the good work! - Let's follow up in 6-12 months, or sooner if needed based on the second read of the liver biopsy. Tatiana Call APRN Section of Gastroenterology [place] [address] Copy: MD [address] [facility] [id number] Time spent reviewing records prior to this encounter: 5 minutes Time spent during encounter with patient including counselin minutes Time spent documenting encounter after office visit: 12 minutes Approximate total time devoted to this single encounter: 37 minutes documented in this encounter Plan of Treatment Upcoming Encounters Date Type Department Care Team (Latest Contact Info) Description 02/01/2024 11:15 AM EDT Telephone Pre Admission Testing at [address] [phone] 02/07/2024 11:20 AM EDT [place] [address] Manoj Vinson MD [place] [address] 02/08/2024 8:30 AM EDT Hospital Encounter PACU at [address] [phone] Manoj Vinson MD [facility] [place] [address] 02/08/2024 8:30 AM EDT - 02/08/2024 11:00 AM EDT Surgery Main OR at [address] [phone] Manoj Vinson MD [facility] [place] [address] ADJ.TISSUE TRANSFER, REARRANGEMENT, 10.1 TO 30 SQ.CM, GENITALIA (WRVU 10.83) Scheduled Procedures Name Priority Associated Diagnoses Date/Ti me ADJ.TISSUE TRANSFER, REARRANGEMENT, 10.1 TO 30 SQ.CM, GENITALIA (WRVU 10.83) Acquired buried penis 02/08/2024 8:30 AM EDT documented as of this encounter Procedures Procedure Name Priority Date/Time Associated Diagnosis Comments HEMOGRAM Routine 01/12/2021 10:12 AM EDT Elevated liver enzymes DIFFERENTIAL, AUTOMATED Routine 01/12/2021 10:12 AM EDT Elevated liver enzymes HC VENIPUNCTURE Routine 01/12/2021 10:12 AM EDT Elevated liver enzymes COMPREHENSIVE METABOLIC PANEL (NON-FASTING) Routine 01/12/2021 10:12 AM EDT Elevated liver enzymes documented in this encounter Results * Differential, Automated (01/12/2021 10:12 AM EDT) Neutrophils % 67.9 % [facility] Neutr Abs (ANC) 5.79 1.70 - 6.10 x10(3)/[facility] Lymphocytes % 22.4 % [facility] Lymphocytes Abs 1.9 0.9 - 3.2 x10(3)/[facility] Monocytes % 7.5 % [facility] Monocyte Abs 0.6 0.3 - 0.9 x10(3)/[facility] Eosinophils % 1.5 % [facility] Eosinophils Abs 0.1 0.0 - 0.4 x10(3)/[facility] Basophils % 0.2 % [facility] Basophils Abs 0.0 0.0 - 0.1 x10(3)/[facility] Immature Gran % 0.50 % [facility] Comment: Immature granulocytes(IG's)percentage and absolute count will include metamyelocytes, myelocytes, and promyelocytes. Blood smears from CBCs yielding IG's will be scanned manually for concordance. If this scan disagrees with the automated IG or if promyelocytes are noted, a manual differential will be performed. Shana Gran Abs 0.04 0.00 - 0.04 x10(3)/[facility] Blood 01/12/2021 10:1 2 AM EDT 01/12/2021 10:28 AM EDT Narrative Resulting Agency Comment Spec In Lab Tatiana Call APRN HEMATOLOGY ORDERAB LES Performing Organization Address City/[facility]/ZIP Co de Phone Number [facility] [place] [address] * (ABNORMAL) Hemogram (01/12/2021 10:12 AM EDT) WBC 8.5 4.0 - 9.5 x10(3)/[facility] RBC 4.39(L) 4.58 - 5.54 x10(6)/[facility] Hemoglobin 12.7(L) 13.7 - 16.5 gm/dL [facility] Hematocrit 37.7(L) 40.5 - 48.5 % [facility] MCV 85.9 82.9 - 93.1 [facility] MCH 28.9 27.5 - 32.1 pg [facility] MCHC 33.7 32.0 - 35.7 gm/dL [facility] Platelets 277 145 - 357 x10(3)/[facility] RDWSD 40.3 36.0 - 45.0 [facility] RDWCV 12.8 11.4 - 13.8 % [facility] MPV 9.8 7.6 - 12.9 [facility] nRBC % Auto 0.0 % [facility] nRBC Abs Auto 0.000 0.000 - 0.000 x10(3)/[facility] Blood 01/12/2021 10:1 2 AM EDT 01/12/2021 10:28 AM EDT Narrative Resulting Agency Comment Spec In Lab Tatiana Call APRN HEMATOLOGY ORDERAB LES Performing Organization Address City/[facility]/ZIP Co de Phone Number [facility] [place] [address] * (ABNORMAL) Comprehensive metabolic panel (non-fasting) (01/12/2021 10:12 AM EDT) Glucose Lvl 128 65 - 199 mg/dL [facility] Comment:Diabetes: >=200 mg/d L plus symptoms BUN 26(H) 10 - 20 mg/dL [facility] Creatinine 1.26 0.80 - 1.50 mg/dL [facility] Sodium 133(L) 135 - 145 mmol/L [facility] Potassium 4.7 3.5 - 5.0 mmol/L [facility] Comment: Please note: ??Patients with WBC >100,000 may have falsely elevated Potassium levels. ??For accurate Potassium quantification in these patients send serum separator tube (gold top) for subsequent determinations. ??Contact the Clinical Chemistry Laboratory if there are any questions. Chloride 97(L) 98 - 107 mmol/L [facility] CO2 24 22 - 31 mmol/L [facility] Anion Gap 12 5 - 15 mmol/L [facility] Calcium 9.8 8.5 - 10.5 mg/dL [facility] Total Protein 7.7 6.1 - 8.0 gm/dL [facility] Albumin 4.2 3.2 - 5.2 gm/dL [facility] AST 15 0 - 39 unit/L [facility] ALT 21 0 - 55 unit/L [facility] Alk Phos 133(H) 40 - 130 unit/L [facility] Total Bilirubin 0.4 0.2 - 1.3 mg/dL [facility] Estimated GFR 60 >=60 mL/min/1. 73 m?? [facility] Comment: This patient? s estimated glomerular filtration rate (eGFR) is between 60 mL/min/1.73 m2 (patients with less muscle mass per kg body weight) and 69 mL/min/1.73 m2 (patients with more muscle mass [...] and symptoms in addition to eGFR. Blood 01/12/2021 10:1 2 AM EDT 01/12/2021 10:29 AM EDT Narrative Resulting Agency Comment Spec In Lab Tatiana Call APRN CHEMISTRY ORDERABL ES [facility] [place] [phone] documented in this encounter Visit Diagnoses Diagnosis Elevated liver enzymes Nonspecific elevation of levels of transaminase or lactic acid dehydrogenase (LDH) Acquired buried penis Other specified disorder of penis documented in this encounter Care Teams Electric Tripper Machine Operator Relationship Specialty Start Date End Date Yung Horn MD [address] [place] [address] PCP - General 11/22/16 documented as of this encounter
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
--- OUTSIDE RECORDS SUMMARY | 2024-01-19 15:13 | XMS_ITS | Encounter Summary ---
Author Organization [facility] [place] [address] Care Team Providers Care Surgical Instrument Repair Specialist Name Role Phone Yung Horn MD Primary Care Provider [phone] Encounter Details Date Type Department Care Team (Late st Contact Info) Description 10/29/2018 2:00 PM EDT Interpretation Only Cardiology at [address] [phone] Neymar Franco Jr., MD [address] [place] [address] Syncope, unspecified syncope type Social History Tobacco [...] AM EDT Telephone Pre Admission Testing at [address] [phone] 02/07/2024 11:20 AM EDT [place] [address] Manoj Vinson MD [facility] [place] [address] 02/08/2024 8:30 AM EDT Hospital Encounter PACU at [address] [phone] Manoj Vinson MD [facility] [place] [address] 02/08/2024 8:30 AM EDT - 02/08/2024 11:00 AM EDT Surgery Main OR at [address] [phone] Manoj Vinson MD [facility] [place] [address] ADJ.TISSUE TRANSFER, REARRANGEMENT, 10.1 TO 30 SQ.CM, GENITALIA (WRVU 10.83) Scheduled Procedures Name Priority Associated Diagnoses Date/Ti me ADJ.TISSUE TRANSFER, REARRANGEMENT, 10.1 TO 30 SQ.CM, GENITALIA (WRVU 10.83) Acquired buried penis 02/08/2024 8:30 AM EDT documented as of this encounter Procedures Procedure Name Priority Date/Time Associated Diagnosis Comments ECG SCAN 10/25/2018 12:00 AM EDT documented in this encounter Results * SCAN DOC: ECG (10/25/2018 12:00 AM EDT) Narrative 10/25/2018 12:00 AM EDT Ordered by an unspecified provider. Scanning Provider MEDIA MGR SCAN EXT O RDR/RSLT documented in this encounter Visit Diagnoses Diagnosis Syncope, unspecified syncope type Acquired buried penis Other specified disorder of penis documented in this encounter Care Teams Surgical Instrument Repair Specialist Relationship Specialty Start Date End Date Yung Horn MD [address] [place] [address] [place] [address] PCP - General 11/22/16 documented as of this encounter
--- OUTSIDE RECORDS SUMMARY | 2024-01-19 15:13 | XMS_ITS | Encounter Summary ---
Author Organization [facility] [place] [address] Care Team Providers Care Behavioral Assistant Name Role Phone Yung Horn MD Primary Care Provider [phone] Reason for Visit * Auth/Cert Specialty Diagnoses / Procedures Referred By Contac t Referred To Contact Diagnoses nccp Procedures PRO UPPER GI ENDOSCOPY, DIAGNOSTIC EGD, UPPER GI ENDOSCOPY Referral ID Status Reason Start Date Expiration Date Visits Re quested Visits Authorized [id number] 1 1 Encounter Details Date Type Department Care Team (Latest Contact Info) Description 07/31/2017 10:00 AM EST Procedure [place] [address] Non-cardiac chest pain Social History Tobacco Use [...] Notes * Reji Aaron RN - 07/31/2017 10:00 AM EST HREM catheter placed via Left nare without difficulty. Patient tolerated procedure well. documented in this encounter Plan of Treatment Upcoming Encounters Date Type Department Care Team (Latest Contact Info) Description 02/01/2024 11:15 AM EDT Telephone Pre Admission Testing at [address] [phone] 02/07/2024 11:20 AM EDT [place] [address] Manoj Vinson MD [facility] [place] [address] 02/08/2024 8:30 AM EDT Hospital Encounter PACU at [address] [phone] Manoj Vinson MD [facility] [place] [address] 02/08/2024 8:30 AM EDT - 02/08/2024 11:00 AM EDT Surgery Main OR at [address] [phone] Manoj Vinson MD [facility] [place] [address] ADJ.TISSUE TRANSFER, REARRANGEMENT, 10.1 TO 30 SQ.CM, GENITALIA (WRVU 10.83) Scheduled Procedures Name Priority Associated Diagnoses Date/Ti me ADJ.TISSUE TRANSFER, REARRANGEMENT, 10.1 TO 30 SQ.CM, GENITALIA (WRVU 10.83) Acquired buried penis 02/08/2024 8:30 AM EDT documented as of this encounter Visit Diagnoses Diagnosis Non-cardiac chest pain Other chest pain Acquired buried penis Other specified disorder of penis documented in this encounter Care Teams Behavioral Assistant Relationship Specialty Start Date End Date Yung Horn MD [facility] [place] [address] [place] [phone] PCP - General 11/22/16 documented as of this encounter
--- OUTSIDE RECORDS SUMMARY | 2024-01-19 15:13 | XMS_ITS | Encounter Summary ---
[place] [address] Care Team Providers Care Elementary [employer] Teacher Name Role Phone Yung Horn MD Primary Care Provider [phone] Encounter Details Date Type Department Care Team (Late st Contact Info) Description 08/03/2018 Telephone [place] [phone] Suzy Loza Social History Tobacco Use Types Packs/Day Years [...] Telephone Encounter - Reji Aaron RN - 08/15/2018 8:30 AM EST Documented in error and removed. * Telephone Encounter - Suzy Loza - 08/03/2018 10:39 AM EST Caller: patient's Call for: nurse Reason for call: waiting to hear form Dr. Ramos as to what the next step is, anxious to have a plan Call back urgency: routine although would like a call today Ok to leave detailed message? yes Preferred method of communication: home [phone] documented in this encounter Plan of Treatment Upcoming Encounters Date Type Department Care Team (Latest Contact Info) Description 02/01/2024 11:15 AM EDT Telephone Pre Admission Testing at [address] [address] 02/07/2024 11:20 AM EDT Office [place] [address] Manoj Vinson MD [facility] [place] [address] 02/08/2024 8:30 AM EDT Hospital Encounter PACU at [address] [address] Manoj Vinson MD [facility] [address] [place] [address] 02/08/2024 8:30 AM EDT - 02/08/2024 11:00 AM EDT Surgery Main OR at [address] [address] Manoj Vinson MD [facility] [place] [address] ADJ.TISSUE TRANSFER, REARRANGEMENT, 10.1 TO 30 SQ.CM, GENITALIA (WRVU 10.83) Scheduled Procedures Name Priority Associated Diagnoses Date/Ti me ADJ.TISSUE TRANSFER, REARRANGEMENT, 10.1 TO 30 SQ.CM, GENITALIA (WRVU 10.83) Acquired buried penis 02/08/2024 8:30 AM EDT documented as of this encounter Visit Diagnoses Not on filedocumented in this encounter Care Teams Elementary School Teacher Relationship Specialty Start Date End Date Yung Horn MD [facility] [place] [address] PCP - General 11/22/16 documented as of this encounter
--- OUTSIDE RECORDS SUMMARY | 2024-01-19 15:13 | XMS_ITS | Encounter Summary ---
Author Organization [facility] Address [facility] [place] [address] Care Team Providers Care Public Health Technologist Name Role Phone Yung Horn MD Primary Care Provider [phone] Encounter Details Date Type Department Care Team (Latest Contact Info) Description 09/24/2018 7:18 AM EDT - 09/24/2018 11:59 PM EDT Hospital Encounter XRay at [address] [place] [address] Robert Ramos MD [facility] [place] [address] Dysphagia, unspecified type Discharge Disposition: Home Social History Tobacco Use [...] by mouth 2 times daily (with meals). magnesium oxide (MAG-OX) 400 mg (241.3 mg magnesium) Tablet TAKE 1 TABLET BY MOUTH DAILY 3 09/01/2018 07/29/2021 risperiDONE (RISPERDAL) 0.5 mg Tablet TAKE 1 TABLET BY MOUTH AT BEDTIME 1 07/13/2018 12/25/2019 aspirin 81 mg Tablet, Chewable Take 81 mg by mouth Daily. 07/29/2021 BioTeSys ULTRA2 Kit TEST BLOOD GLUCOSE WITH ALL MEALS. DX: E11.9 0 04/05/2018 07/29/2021 venlafaxine (EFFEXOR-XR) 150 mg Capsule, Sust. Release [...] EDT Telephone Pre Admission Testing at [address] [address] 02/07/2024 11:20 AM EDT Office Visit Urology at [facility] [place] [place] [address] Manoj Vinson MD [facility] [place] [address] 02/08/2024 8:30 AM EDT Hospital Encounter PACU at [address] [address] Manoj Vinson MD [facility] [place] [address] 02/08/2024 8:30 AM EDT - 02/08/2024 11:00 AM EDT Surgery Main OR at [address] [phone] Manoj Vinson MD [facility] [place] [address] ADJ.TISSUE TRANSFER, REARRANGEMENT, 10.1 TO 30 SQ.CM, GENITALIA (WRVU 10.83) Scheduled Procedures Name Priority Associated Diagnoses Date/Ti me ADJ.TISSUE TRANSFER, REARRANGEMENT, 10.1 TO 30 SQ.CM, GENITALIA (WRVU 10.83) Acquired buried penis 02/08/2024 8:30 AM EDT documented as of this encounter Procedures Procedure Name Priority Date/Time Associated Diagnosis Comments XR FLUORO UPPER GI DOUBLE CONTRAST WWO DELAYED FILMS W KUB Routine 09/24/2018 8:48 AM EDT Dysphagia, unspecified type documented in this encounter Results * XR Fluoro Upper GI Double Contrast wwo Delayed Films w/KUB (09/24/2018 8:48 AM EDT) Anatomical Region Laterality Modality N/A Radio Fluoroscop y Impressions 09/24/2018 11:22 AM EDT 1. Status post Keiko-en-Y gastric bypass 2. There is a small hiatal hernia. 3. The gastric pouch is distended, increased from prior exam. 4. There is retrograde flow into the duodenum 5. Jejunojejunostomy was not identified Thank you for letting us participate in the care of this patient. For questions regarding this report, please contact the number below. ? Electronically signed by: Rossana Mancilla [facility] ([phone]), at 09/24/2018 11:22 AM Narrative 09/24/2018 11:22 AM EDT EXAMINATION: XR FLUORO UPPER GI DOUBLE CONTRAST WWO DELAYED FILMS W/KUB CLINICAL HISTORY: Dysphagia s/p gastric bypass, with hx of sliding hiatal hernia and reflux TECHNIQUE: Double contrast UGI was performed. Fluoroscopic spot films were obtained. Fluoro time: 1.75 minutes COMPARISON: 06/27/2017 FINDINGS: The initial abdominal top collar maker view shows vascular clips in LEFT midabdomen and anastomotic nidhi in the LEFT upper quadrant. The esophagus is normal in course and caliber, and is well distended on double contrast views. ??The mucosal pattern is normal. There is a small hiatal hernia. Patient is status post Keiko-en-Y gastric bypass and the gastric pouch is distended. No gastroesophageal reflux was elicited with provocative maneuvers. Contrast did flow retrograde into the duodenum. On the final images the small bowel is seen to the level of the cecum and appears normal the jejunojejunostomy was not identified Procedure Note Rossana Mancilla MD - 09/24/2018 EXAMINATION: XR FLUORO UPPER GI DOUBLE CONTRAST WWO DELAYED FILMS W/KUB CLINICAL HISTORY: Dysphagia s/p gastric bypass, with hx of sliding hiatalhernia and reflux TECHNIQUE: Double contrast UGI was performed. Fluoroscopic spot films wereobtained. Fluoro time: 1.75 minutes COMPARISON: 06/27/2017 FINDINGS: The initial abdominal top collar maker view shows vascular clips in LEFT midabdomenand anastomotic nidhi in the LEFT upper quadrant. The esophagus is normal in course and caliber, and is well distended ondouble contrast views. The mucosal pattern is normal. There is a small hiatalhernia. Patient is status post Keiko-en-Y gastric bypass and the gastric pouch is distended. No gastroesophageal reflux was elicited with provocative maneuvers. Contrast did flow retrograde into the duodenum. On the final images thesmall bowel is seen to the level of the cecum and appears normal thejejunojejunostomy was not identified IMPRESSION 1. Status post Keiko-en-Y gastric bypass 2. There is a small hiatal hernia. 3. The gastric pouch is distended, increased from prior exam. 4. There is retrograde flow into the duodenum 5. Jejunojejunostomy was not identified Thank you for letting us participate in the care of this patient. Forquestions regarding this report, please contact the number below. Electronically signed by: Rossana Mancilla [facility]([phone]), at 09/24/2018 11:22 AM Robert Arteaga MD IMG FLUORO ORDER GLEN documented in this encounter Visit Diagnoses Diagnosis Dysphagia, unspecified type Acquired buried penis Other specified disorder of penis documented in this encounter Administered Medications Inactive Administered Medications - up to 3 most recent administrations Medication Order MAR Action Action Date Dose Rate Site barium sulfate (E-Z DISK) tablet 700 mg 700 mg, Oral, ONCE, 1 dose, On Mon09/24/18 at 0915, Routine Given 09/24/2018 9:15 AM EDT 700 mg barium sulfate (E-Z-HD) 98 % oral suspension 135 mL 135 mL, Oral, ONCE, 1 dose, On Mon09/24/18 at 0915, Routine Given 09/24/2018 9:15 AM EDT 135 mLs barium sulfate (EZPAQUE) oral suspension 200 mL 200 mL, Oral, ONCE, 1 dose, On Mon09/24/18 at 0915, Routine Given 09/24/2018 9:15 AM EDT 200 mLs documented in this encounter Care Teams Public Health Technologist Relationship Specialty Start Date End Date Yung Horn MD [address] [place] [address] PCP - General 11/22/16 documented as of this encounter
--- OUTSIDE RECORDS SUMMARY | 2024-01-19 15:13 | XMS_ITS | Encounter Summary ---
[place] [address] Care Team Providers Care Fulfillment Mail Clerk Name Role Phone Yung Horn MD Primary Care Provider [phone] Reason for Visit * Consultation (Routine) - Specialty Diagnoses / Procedures Referred By Contac t Referred To Contact Gastroenterology Diagnoses Chest pain, unspecified type Mariana Holden MD [facility] [place] [address] [facility] [address] [place] [address] Referral ID Status Reason Start Date Expiration Date V isits Requested Visits Authorized [id number] Specialty Service Requested PCP Updated and/or Approved 05/28/2017 05/28/2018 6 6 Encounter Details Date Type Department Care Team (Late st Contact Info) Description 04/18/2018 9:00 AM EDT Office [place] [address] Robert Ramos MD [facility] [place] [address] Obesity, unspecified classification, unspecified obesity type, unspecified whether serious comorbidity present; Gastroesophageal reflux disease, esophagitis presence not specified [...] Sign Reading Time Taken Comments Blood Pressure 128/78 04/18/2018 11:52 AM EDT Pulse 85 04/18/2018 11:52 AM EDT Temperature - - Respiratory Rate - - Oxygen Saturation - - Inhaled Oxygen Concentration - - Weight 116 kg (255 lb 11.2 oz) 04/18/2018 11:52 AM EDT Height 180.3 cm (5' 11) 04/18/2018 11:52 AM EDT Body Mass Index 35.66 04/18/2018 11:52 AM EDT documented in this encounter Progress Notes * Roebrt Ramos MD - 04/18/2018 9:00 AM EDT HISTORY: Yung Betancur presents for consultation and further evaluation of weight control, diabetes control,and GERD We had a shortened visit due to late arrival. In 2009, Dr. Lori Alba [facility] performed a gastric bypass. His pre-op weight was 375 lbs went to 220 post-op, but regain to about 255 now On metformin for DM, and had been on insulin Has been with rails developer in past Has done some meal plans He would be up for re-do surgery or for possible endoscopic alteration Has had knees both done February 2018 On pantoprazole once a day for heartburn Controls it well If runs out, gets pyrosis back Has had post prandial chest pains from a feeling of food sticking in chest Can be from bread (happened with chicken sandwich) - and will have emesis This is not infrequent Has had some upper endoscopies. Last one showed large pouch and dilated stoma. Lives in [place], about 2 hours away and not able to participate in the [facility] program, but willing to be seen there for consultation. Has been under a lot of stress from bipolar daughter - including physical stress That has caused him to eat and gain weight. Nonsmoker for 23 years, after 23 years of smoking. 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 Is interested in endoscopic or surgical intervention for purpose of getting off medicines Is followed by Thalia Harper for GI issues. PMHx: diabetes diagnosed 2001, was on insulin pre-surgery Patient Active Problem List Diagnosis Code ??? Peyronie's disease N48.6 ??? Male erectile dysfunction N52.9 ??? Chest pain R07.9 PHYSICAL EXAM: Most Recent Vitals: 04/18/18 1152 BP: 128/78 Pulse: 85 NAD IMPRESSION: Obesity, s/p maritza-en-y with some weight regain, and diabetes. He has an interest to be off medic\cations, including for diabetes and gerd. We discussed the data on endoscopic repair and issues with durability. Discussed the comlexities of gastric bypass re-do. He would like to discuss with a surgeon, what options might be available. Our session was shortened and we should have an additional counseling and history gathering session, as well as a consultation with Dr. Albino Veloz. 25 of 30 minutes spent in direct hadv-fy-vjdb counselling and the rest in taking history. PLAN: Will set up time for revisit and with Albino Veloz Continue current medications Consider [facility] visit Robert Ramos MD Section of Gastroenterology and Hepatology documented in this encounter Plan of Treatment Upcoming Encounters Date Type Department Care Team (Latest Contact Info) Description 02/01/2024 11:15 AM EDT Telephone Pre Admission Testing at [address] [address] 02/07/2024 11:20 AM EDT [place] [address] Manoj Vinson MD [facility] [address] 02/08/2024 8:30 AM EDT Hospital Encounter PACU at [address] [address] Manoj Vinson MD [facility] [place] [address] 02/08/2024 8:30 AM EDT - 02/08/2024 11:00 AM EDT Surgery Main OR at [address] [phone] Manoj Vinson MD [facility] [place] [address] ADJ.TISSUE TRANSFER, REARRANGEMENT, 10.1 TO 30 SQ.CM, GENITALIA (WRVU 10.83) Scheduled Procedures Name Priority Associated Diagnoses Date/Ti ky ADJ.TISSUE TRANSFER, REARRANGEMENT, 10.1 TO 30 SQ.CM, GENITALIA (WRVU 10.83) Acquired buried penis 02/08/2024 8:30 AM EDT documented as of this encounter Visit Diagnoses Diagnosis Obesity, unspecified classification, unspecified obesity type, unspecified whether serious comorbidity present Gastroesophageal reflux disease, esophagitis presence not specified Acquired buried penis Other specified disorder of penis documented in this encounter Care Teams Fulfillment Mail Clerk Relationship Specialty Start Date End Date Yung Horn MD [facility] [place] [address] PCP - General 11/22/16 documented as of this encounter
--- OUTSIDE RECORDS SUMMARY | 2024-01-19 15:13 | XMS_ITS | Encounter Summary ---
Author [place] [address] Care Team Providers Care Code Number Stamper Name Role Phone Elizabeth Horn MD Primary Care Provider [phone] Encounter Details Date Type Department Care Team (Late st Contact Info) Description 01/17/2020 Telephone Cardiology at [address] [phone] Laurence Giordano LPN Social History Tobacco Use Types Packs/Day Years [...] encounter Miscellaneous Notes * Telephone Encounter - Elizabeth Matias MD - 01/17/2020 6:23 PM EDT I called back (phone number was not transcribed properly) and spoke with the patient and his . Stress echo to 80% predicted max HR showed no ischemia. Intact LV/RV and valves. Would not pursue further cardiac work-up at this point.They will follow-up with Dr. Horn. ELIZABETH MATIAS MD * Telephone Encounter - Laurence Giordano LPN - 01/17/2020 11:48 AM EDT Patient's , Tahmina, called for as he is hard of hearing. She inquiring about his stress test results. [phone]. Forwarded to Dr. Matias for results. ALEJANDRO Dang documented in this encounter Plan of Treatment Upcoming Encounters Date Type Department Care Team (Latest Contact Info) Description 02/01/2024 11:15 AM EDT Telephone Pre Admission Testing at [address] [address] 02/07/2024 11:20 AM EDT [place] [address] Manoj Vinson MD [facility] [address] 02/08/2024 8:30 AM EDT Hospital Encounter PACU at [address] [address] Manoj Vinson MD [facility] [place] [address] 02/08/2024 8:30 AM EDT - 02/08/2024 11:00 AM EDT Surgery Main OR at [address] [address] Manoj Vinson MD [facility] [address] ADJ.TISSUE TRANSFER, REARRANGEMENT, 10.1 TO 30 SQ.CM, GENITALIA (WRVU 10.83) Scheduled Procedures Name Priority Associated Diagnoses Date/Ti ct ADJ.TISSUE TRANSFER, REARRANGEMENT, 10.1 TO 30 SQ.CM, GENITALIA (WRVU 10.83) Acquired buried penis 02/08/2024 8:30 AM EDT documented as of this encounter Visit Diagnoses Not on filedocumented in this encounter Care Teams Code Number Stamper Relationship Specialty Start Date End Date Elizabeth Horn MD [address] [place] [address] PCP - General 11/22/16 documented as of this encounter
--- OUTSIDE RECORDS SUMMARY | 2024-01-19 15:13 | XMS_ITS | Encounter Summary ---
Author Organization [facility] [place] [address] Care Team Providers Care Ingot Header Name Role Phone Yung Horn MD Primary Care Provider [phone] Encounter Details Date Type Department Care Team (Late st Contact Info) Description 08/30/2018 Telephone [place] [phone] Reji Aaron RN Social History Tobacco Use Types Packs/Day [...] encounter Miscellaneous Notes * Telephone Encounter - Marsha Auguste - 09/11/2018 3:13 PM EST Pts called in again looking for update. Pt is upset they have not heard anything in Months. Would like to speak to Dr. Ramos about nest steps * Telephone Encounter - Reji Aaron RN - 08/30/2018 2:18 PM EST Paged by school secretary, Kaylin, with patient and on the line, they are waiting for a response from Dr. Ramos with the next step in the plan. Forwarding this message to Dr. Ramos via EDH and email. documented in this encounter Plan of Treatment Upcoming Encounters Date Type Department Care Team (Latest Contact Info) Description 02/01/2024 11:15 AM EDT Telephone Pre Admission Testing at [address] [address] 02/07/2024 11:20 AM EDT [place] [address] Manoj Vinson MD [facility] [place] [address] 02/08/2024 8:30 AM EDT Hospital Encounter PACU at [address] [address] Manoj Vinson MD [facility] [place] [place] [address] 02/08/2024 8:30 AM EDT - 02/08/2024 11:00 AM EDT Surgery Main OR at [address] [address] Manoj Vinson MD [facility] [place] [address] ADJ.TISSUE TRANSFER, REARRANGEMENT, 10.1 TO 30 SQ.CM, GENITALIA (WRVU 10.83) Scheduled Procedures Name Priority Associated Diagnoses Date/Ti dc ADJ.TISSUE TRANSFER, REARRANGEMENT, 10.1 TO 30 SQ.CM, GENITALIA (WRVU 10.83) Acquired buried penis 02/08/2024 8:30 AM EDT documented as of this encounter Visit Diagnoses Not on filedocumented in this encounter Care Teams Ingot Header Relationship Specialty Start Date End Date Yung Horn MD [facility] [place] [address] PCP - General 11/22/16 documented as of this encounter
--- OUTSIDE RECORDS SUMMARY | 2024-01-19 15:14 | XMS_ITS | Encounter Summary ---
Author Organization [facility] [place] [address] Care Team Providers Care Serology Technician Name Role Phone Yung Horn MD Primary Care Provider [phone] Reason for Referral * Diagnostic Test (Routine) - Closed Specialty Diagnoses / Procedures Referred By Contac t Referred To Contact Radiology Diagnoses Non-cardiac chest pain Procedures XR Fluoro Barium Swallow Thalia Harper APRN [facility] [place] [address] [facility] Rad Xray [address] [place] [address] [place] [address] Referral ID Status Reason Start Date Expiration Date V isits Requested Visits Authorized [id number] Closed Specialty Service Requested 06/27/2017 06/27/2018 1 1 Reason for Visit * Reason Comments GI Problem * Consultation (Routine) - Specialty Diagnoses / Procedures Referred By Contac t Referred To Contact Gastroenterology Diagnoses Chest pain, unspecified type Mariana Holden MD [facility] [place] [address] [facility] [place] [address] Referral ID Status Reason Start Date Expiration Date V isits Requested Visits Authorized [id number] Specialty Service Requested PCP Updated and/or Approved 05/28/2017 05/28/2018 6 6 Encounter Details Date Type Department Care Team (Late st Contact Info) Description 06/27/2017 10:00 AM EST Office [place] [address] Thalia Harper APRN [facility] [place] [address] Non-cardiac chest pain Social History Tobacco Use [...] Sign Reading Time Taken Comments Blood Pressure 126/72 06/27/2017 9:28 AM EST Pulse 53 06/27/2017 9:28 AM EST Temperature - - Respiratory Rate - - Oxygen Saturation - - Inhaled Oxygen Concentration - - Weight 112.5 kg (248 lb) 06/27/2017 9:28 AM EST Height 180.3 cm (5' 11) 06/27/2017 9:28 AM EST Body Mass Index 34.59 06/27/2017 9:28 AM EST documented in this encounter Progress Notes * Thalia Harper RN - 06/27/2017 10:00 AM EST Section of Gastroenterology and Hepatology [address] [place] [id number] .Yung Betancur : 1955 Patient is here for further evaluation of gastrointestinal symptoms at the request of Yung Horn MD. HPI: Pt has had sx since March 2017. Only change was d/c of the statin. Pt is having chest pain. Eating, drinking, exertion are contributing factors. Heaviness in the chest. Duration of sx, 60 minutes or more. Pt takes omeprazole 40mg bid. Has been on ppi therapy for a long period of time. Continues with daily breakthrough of reflux/heartburn. He notes the omeprazole helped but not 100%. No dysphagia, odynophagia, n/v. Early satiety. Gastric bypass 2009. Egd 2016: The Z-line was regular and was found 42 cm from the ?incisors. ?The examined esophagus was normal. ?Evidence of a gastric bypass was found. A gastric ?pouch with a normal size was found. The staple line ?appeared intact. The gastrojejunal anastomosis was ?characterized by healthy appearing mucosa. This was ?traversed. The tedcd-zs-cfdgzsn limb??was ?characterized by healthy appearing mucosa. The ?jejunojejunal anastomosis was characterized by ?healthy appearing mucosa. The iahlhupy-je-dcazjlq ?limb was not examined as it could not be found. ? Impression: ?- Z-line regular, 42 cm from the ?incisors. ?- Normal esophagus. ?- Gastric bypass with a normal-sized ?pouch intact staple line. ?- No specimens collected. Tolerating diet. Weight stable. No food allergies. No chronic nsaids. Can awake with sx of reflux, chest heaviness and shortness of breath. Sx force him to sit up. Head of bed elevated. Was given ativan; put me to sleep and helped sx. Recent ED visit. Normal ekg and troponin. Normal cardiac cath in May 2017. ntg drip did not work. No tenderness upon palpation of chest. Stools are regular. No blood in stool. Daily coffee is helpful. 2016 colonoscopy: ??The perianal exam findings include non-thrombosed ?internal hemorrhoids. ?The terminal ileum appeared normal. ?A 3 mm polyp was found in the transverse colon. The ?polyp was sessile. The polyp was removed with a cold ?biopsy forceps. Resection and retrieval were complete. ?Two sessile polyps were found in the transverse ?colon. The polyps were 3 to 4 mm in size. These ?polyps were removed with a cold snare. Resection and ?retrieval were complete. ?A 4 mm polyp was found in the sigmoid colon. The ?polyp was sessile. The polyp was removed with a cold ?snare. Resection and retrieval were complete. ?A few diverticula were found in the sigmoid colon. ? Impression: ?- Non-thrombosed internal hemorrhoids ?found on perianal exam. ?- The examined portion of the ileum ?was normal. ?- One 3 mm polyp in the transverse ?colon. Resected and retrieved. ?- Two 3 to 4 mm polyps in the ?transverse colon. Resected and ?retrieved. ?- One 4 mm polyp in the sigmoid ?colon. Resected and retrieved. ?- Few scattered sigmoid diverticuli Recommendation: ?- Repeat colonoscopy in 5 years for ?surveillance. ?-Stool softener, warm soak, local ?care. Bx: Transverse colon, polypectomy: - Fragments of tubular adenoma. B - Sigmoid colon, polypectomy: - Hyperplastic polyp. Social History Social History ??? Marital status: Spouse name: N/A ??? Number of children: N/A ??? Years of education: N/A Occupational History ??? Not on file. Social History Main Topics ??? Smoking status: Former Smoker ??? Smokeless tobacco: Never Used ??? Alcohol use 7.2 oz/week 12 Cans of beer per week Comment: beer once in a while ??? Drug use: No ??? Sexual activity: Yes Partners: Female Other Topics Concern ??? Not on file Social History Narrative Medical History: hyperlipidemia, Surgical History: gastric bypass; Family History: no gi etiologies Allergies Allergen Reactions ??? Bandages, Cohesive Rash ??? Adhesive Tape Rash Current Outpatient Prescriptions: ??? venlafaxine (EFFEXOR-XR) 150 mg Capsule, Sust. Release 24 hr, Take 150 mg by mouth daily., Disp: , Rfl: ??? LORazepam (ATIVAN) 1 mg Tablet, Take 1 mg by mouth every 6 hours as needed for Anxiety., Disp: , Rfl: ??? doxycycline (VIBRAMYCIN) 100 mg Capsule, Take 1 capsule by mouth 2 times daily for 14 days., Disp: 28 capsule, Rfl: 0 ??? glipiZIDE (GLUCOTROL) 5 mg Tablet, take 1 tablet by mouth twice a day, Disp: , Rfl: 0 ??? meTOPROLOL succinate (TOPROL-XL) 25 mg Tablet Sustained Release 24 hr, take 1 tablet by mouth once daily, Disp: , Rfl: 0 ??? PARoxetine (PAXIL) 30 mg Tablet, Take 30 mg by mouth every morning. Indications: Anxiety with Depression, Disp: , Rfl: ??? ferrous sulfate 324 mg (65 mg iron) Tablet, Delayed Release (E.C.), Take 324 mg by mouth. Indications: Iron Deficiency Anemia, Disp: , Rfl: ??? multivitamin (THERAGRAN) Tablet, Take 1 tablet by mouth daily., Disp: , Rfl: ??? cholecalciferol, Vitamin D3, 2,000 unit Tablet, Take 1 tablet by mouth. Indications: Vitamin D Deficiency, Disp: , Rfl: ??? lisinopril (PRINIVIL;ZESTRIL) 2.5 mg Tablet, Take 2.5 mg by mouth daily. Indications: Diabetic Nephropathy, Disp: , Rfl: ??? ascorbic acid (VITAMIN C) 500 mg Tablet, Take 500 mg by mouth daily., Disp: , Rfl: ??? acetaminophen (TYLENOL) 500 mg Tablet, Take 2 tablets by mouth every 6 hours as needed for Pain., Disp: , Rfl: ??? gabapentin (NEURONTIN) 600 mg Tablet, Take 600 mg by mouth nightly., Disp: , Rfl: ??? omeprazole (PRILOSEC) 20 mg Capsule, Delayed Release(E.C.), Take 40 mg by mouth daily., Disp: ,Rfl: ??? metFORMIN (FORTAMET) 1,000 mg Tablet Extended Rel 24 hr, Take 1,000 mg by mouth 2 times daily (with meals)., Disp: , Rfl: Review of Systems - Negative except General: Cardiac: Resp: GI: see above : MS: Neuro: Skin: Psyche: Sleep: Endo: Impression: 1. NCCP: barium swallow today. The consider utility of hrem and an upper endoscopy. Also consider ph study on medications to assess if sx due to uncontrolled gerd. 2. Gif in 6-8 weeks I spent a total of 55 minutes face to face with this patient; 40 minutes were spent counseling the patient in the medical problems described above. Sincerely, Thalia Harper NP Section of Gastroenterology and Hepatology documented in this encounter Plan of Treatment Upcoming Encounters Date Type Department Care Team (Latest Contact Info) Description 02/01/2024 11:15 AM EDT Telephone Pre Admission Testing at [address] [address] 02/07/2024 11:20 AM EDT [place] [address] Manoj Vinson MD [facility] [place] [address] 02/08/2024 8:30 AM EDT Hospital Encounter PACU at [address] [address] Manoj Vinson MD [facility] [place] [address] 02/08/2024 8:30 AM EDT - 02/08/2024 11:00 AM EDT Surgery Main OR at [address] [address] Manoj Vinson MD [facility] [place] [address] ADJ.TISSUE TRANSFER, REARRANGEMENT, 10.1 TO 30 SQ.CM, GENITALIA (WRVU 10.83) Scheduled Orders Name Type Priority Associated Diagnoses Orde r Schedule UPPER GI ENDOSCOPY Procedures Routine Non-cardiac chest pain Ordered: 06/27/2017 Scheduled Procedures Name Priority Associated Diagnoses Date/Ti me ADJ.TISSUE TRANSFER, REARRANGEMENT, 10.1 TO 30 SQ.CM, GENITALIA (WRVU 10.83) Acquired buried penis 02/08/2024 8:30 AM EDT documented as of this encounter Results * XR Fluoro Barium [...] Astrid Salguero Radiology, at108/30/2016 10:04 AM Thalia Holt'Mayuri HAND TOOL FILER IMG FLUORO ORDERABLE S documented in this encounter Visit Diagnoses Diagnosis Non-cardiac chest pain Other chest pain Non-cardiac chest pain Other chest pain 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
--- OUTSIDE RECORDS SUMMARY | 2024-01-19 15:14 | XMS_ITS | Encounter Summary ---
[place] [address] Care Team Providers Care Manager Mechanical Maintenance Name Role Phone Yung Horn MD Primary Care Provider [phone] Reason for Referral * Consultation (Routine) - Specialty Diagnoses / Procedures Referred By Contac t Referred To Contact Gastroenterology Diagnoses Chest pain, unspecified type Mariana Holden MD [facility] [place] [address] [facility] [address] [place] [address] Referral ID Status Reason Start Date Expiration Date V isits Requested Visits Authorized [id number] Specialty Service Requested PCP Updated and/or Approved 05/28/2017 05/28/2018 6 6 Reason for Visit * Auth/Cert Specialty Diagnoses / Procedures Referred By Contac t Referred To Contact Diagnoses Chest pain CHEST PAIN NSTEMI Procedures CARDIAC CATHETERIZATION Referral ID Status Reason Start Date Expiration Date Visits Re quested Visits Authorized [id number] 1 1 Encounter Details Date Type Department Care Team (Latest Contact Info) Description 05/26/2017 3:41 PM EST - 05/28/2017 1:44 PM EST Hospital Encounter [address] [id number] Rei Vines MD [facility] [place] [address] Brendan Chua MD [facility] [place] [address] Chest pain, unspecified type Discharge Disposition: Home Social History [...] Sign Reading Time Taken Comments Blood Pressure 112/67 05/28/2017 11:38 AM EST Pulse 53 05/28/2017 11:38 AM EST Temperature 36.8 ??C (98.2 ??F) 05/28/2017 11:[address] Respiratory Rate 20 05/28/2017 11:38 AM EST Oxygen Saturation 98% 05/28/2017 11:38 AM EST Inhaled Oxygen Concentration - - Weight 113.2 kg (249 lb 8 oz) 05/28/2017 5:00 AM EST Height 180.3 cm (5' 11) 05/26/2017 3:48 PM EST Body Mass Index 34.8 05/26/2017 3:48 PM EST documented in this encounter Discharge Summaries * Mariana Holden MD - 05/28/2017 12:27 PM EST Discharge Summary Patient Name: Yung Betancur Patient Age: 61 y.o. Language: Syriac Race: White Ethnicity: Not nor Admit date: 05/26/2017 Discharge date and time: 05/28/2017 Attending Physician: Brendan Chua MD Follow-up Recommendations for Providers: - Trial off of atorvastatin, monitor for symptomatic improvement + improvement in CK. If no change off of statin, please re-start - Referral to GI placed for further work-up of atypical chest pain Inpatient Provider Contact Information: For questions regarding this document or issues relating to this hospitalization on the Cardiology Service, please contact your inpatient physician through the [facility] Underground Repairer and ask aure connected to Pager [phone]. Discharge Diagnoses (Hospital Problems) and Secondary Diagnoses (Chronic Problems): Active Hospital Problems Diagnosis ??? Chest pain Resolved Hospital Problems Diagnosis Date Resolved No resolved problems to display. Active Non-Hospital Problems Diagnosis ??? Peyronie's disease ??? Male erectile dysfunction Operations/Major Procedures: Operations: Procedure(s): CARDIAC CATHETERIZATION 05/27/2017 Other Major Procedures: None History of Presentation: 61 yo M w/PMHx of GERD, HLD, HTN, DM2 (HbA1c 7.2), and gastric bypass (2009) transferred from [facility] over concerns for unstable angina. Patient states that he has had substernal chest heaviness that radiates down his L arm and to his back since waking up this morning. The pain is worse with taking deep breaths, may be somewhat positional, and is worse after eating. Today he has also had SOB that comes and goes as well as dizziness. The chest pain occurs with exertion such as lifting heavy buckets, but also at rest. There are no alleviating factors other than the morphine he was given at [facility], which helped. Normally he sleeps on 3 pillows at night due to orthopnea and this has also been worse recently. Occasionally he has PND. He has been worked up for chest pain and SOB similar to this in the past (since last spring), but feels like it has been slowly worsening in severity over the past 6mo. Back in November he had a normal echo, stress test, 2 CTs negative for PE, and normal PFTs. ROS positive for a dry cough on and off for the last several weeks. Denies fevers, chills, weight gain/loss,dysuria, polyuria, diarrhea, or sick contacts. Prior to transfer he was given ASA + morphine and started on a heparin and morphine drip. Hospital Course: Patient admitted with atypical chest pain that had been worsening in intensity for the past 3 mo. He had no ischemic changes on EKG and normal troponins x4. Although he was started on ACS protocol prior to transfer, this was discontinued after his first negative troponin at [facility]. Cardiac cath was performed to definitively rule out a cardiac cause of ischemia and revealed no culprit lesion. CK wasnoted to be mildly elevated at 389 and at the time of discharge it was recommended that he stop taking his atorvastatin for ~ 1 mo and follow for symptom improvement. A referral has been placed for further GI work-up. Vital Signs at Discharge: BP: 112/67, Heart Rate: 53, Temp: 36.8 ??C (98.2 ??F), Resp: 20, BMI (Calculated): 35.29 Height: 180.3 cm (5' 11) (05/26/17 1548) Weight - Scale: (!) 113.2 kg (249 lb 8 oz) (05/28/17 0500) Functional and Cognitive Status: Baseline Important Studies and Lab Data: Labs: Lab Results Component Value Date WBC 3.8 (L) 05/28/2017 HGB 11.0 (L) 05/28/2017 HCT 33.6 (L) 05/28/2017 PLATELET 162 05/28/2017 Lab Results Component Value Date NA 138 05/28/2017 K 4.5 05/28/2017 CL 102 05/28/2017 CO2 24 05/28/2017 BUN 16 05/28/2017 CREATININE 1.05 05/28/2017 Recent Labs 05/26/17 1800 CK 389* TROPONINT <0.01 Studies: Cardiac Catheterization: Report not officially in yet, but reportedly no culprit lesion Echocardiography: None Pending Studies and Lab Data: None Discharge Conditions/Prognosis: Stable Discharge to: Home Updated Allergies/ADRs: Allergies Allergen Reactions ??? Bandages, Cohesive Rash ??? Adhesive Tape Rash Immunizations Given this Hospitalization: There is no immunization history on file for this patient. Discharge Medications: Your Medications Continued medications with new dosing Dose Details metFORMIN 1,000 mg Tr24 Commonly known as: FORTAMET Take 1,000 mg by mouth 2 times daily (with meals). What changed: Another medication with the same name was removed. Continue taking this medication, and follow the directions you see here. 1000 mg Refills: 0 Continued medications, unchanged Dose Details acetaminophen 500 mg Tab Commonly known as: TYLENOL Take 2 tablets by mouth every 6 hours as needed for Pain. 1000 mg Refills: 0 ascorbic acid (vitamin C) 500 mg Tab Commonly known as: VITAMIN C Take 500 mg by mouth daily. 500 mg Refills: 0 cholecalciferol (Vitamin D3) 2,000 unit Tab Take 1 tablet by mouth. Indications: Vitamin D Deficiency 1 tablet Refills: 0 ferrous sulfate 324 mg (65 mg iron) Tbec Take 324 mg by mouth. Indications: Iron Deficiency Anemia 324 mg Refills: 0 gabapentin 600 mg Tab Commonly known as: NEURONTIN Take 600 mg by mouth nightly. 600 mg Refills: 0 glipiZIDE 5 mg Tab Commonly known as: GLUCOTROL take 1 tablet by mouth twice a day Refills: 0 lisinopril 2.5 mg Tab Commonly known as: PRINIVIL;ZESTRIL Take 2.5 mg by mouth daily. Indications: Diabetic Nephropathy 2.5 mg Refills: 0 meTOPROLOL succinate 25 mg Tablet sr Commonly known as: TOPROL-XL take 1 tablet by mouth once daily Refills: 0 multivitamin Tab Commonly known as: THERAGRAN Take 1 tablet by mouth daily. 1 tablet Refills: 0 omeprazole 20 mg Cpdr Commonly known as: PriLOSEC Take 40 mg by mouth daily. 40 mg Refills: 0 PARoxetine 30 mg Tab Commonly known as: PAXIL Take 30 mg by mouth every morning. Indications: Anxiety with Depression 30 mg Refills: 0 STOPPED Medications atorvastatin 80 mg Tab Commonly known as: LIPITOR citalopram 40 mg Tab Commonly known as: CeleXA ibuprofen 800 mg Tab Commonly known as: ADVIL;MOTRIN venlafaxine 150 mg Cp24 Commonly known as: EFFEXOR-XR Smoking Status at Discharge: History Smoking Status ??? Former Smoker Smokeless Tobacco ??? Never Used Instructions Given to Patient at Discharge: Patient Instructions Patient Instructions on Discharge to Home Why you were hospitalized: You were admitted to the hospital because there was concern that the chest pain and difficulty breathing that you have been having could be related to your heart. To definitively rule out problems with your heart we did a procedure called a cardiac cath, which directly looks at your heart's blood vessels and they looked relatively normal. We will refer you to GI so that they can further investigate alternative reasons for why you are having this persistent chest pain. New Medications: None Medication Changes: - Stop taking atorvastatin until advised by your primary doctor to re-start - Stop taking ibuprofen When to call your doctor: - Call if you develop worsening chest pain/changes in the quality of your chest pain, worsening SOB, leg swelling, cough, inability to swallow foods/liquids, or any other concerning symptoms Activity level: - As tolerated Diet: - Healthy diet Driving: - Per your routine after [address] if you feel dizzy or lightheaded Follow up Appointments: Future Appointments Date Time Provider Department Center 05/31/2017 2:00 PM Yung Olsen MD [facility] Card[facility] - A referral has been placed to the GI specialists, you should hear from them to schedule an appointment - A follow-up appointment needs to be scheduled with your PCP, contact us if you don't hear about this appointment by Monday Your Inpatient Doctor(s) at [facility]: Brendan Chua MD - Attending physician Mariana Holden MD - Resident physician Nawaf Poon MD- Rn Child physician Your Primary Care Provider: MD [address] / [place] [id number] For questions regarding issues relating to your hospitalization on the Hospital Medicine Service, please contact your inpatient physician through the [facility] Underground Repairer [phone]. Issues after hours and on weekends will be handled by the Hospitalist staff on-call. General Instructions None Future Appointments and Orders Future Appointments Provider Department Dept Phone 05/31/2017 2:00 PM Yung Olsen MD Cardiology at [place] [phone] Future Orders Complete By Expires Referral to Gastroenterology [REF25 Custom] As directed Process Instructions: If no progress note charted, please enter Clinical details in comments. Scheduling Instructions: Comments: I am referring to Gastroenterology my 61 y.o. male patient Yung Betancur for evaluation of abdominal pain. Are all Required tests available(see list below)? yes The following REQUIRED studies are available in [facility]: CBC Result: Lab Results Component Value Date WBC 3.8 (L) 05/28/2017 RBC 4.13 (L) 05/28/2017 HGB 11.0 (L) 05/28/2017 HCT 33.6 (L) 05/28/2017 MCV 81.4 (L) 05/28/2017 MCH 26.6 (L) 05/28/2017 MCHC 32.7 05/28/2017 RDWSD 41.0 05/28/2017 RDWCV 14.0 (H) 05/28/2017 PLATELET 162 05/28/2017 MPV 10.4 05/28/2017 NEUTROABS 2.37 05/28/2017 BMP Result: Lab Results Component Value Date GLUCOSE 162 05/28/2017 BUN 16 05/28/2017 CREATININE 1.05 05/28/2017 NA 138 05/28/2017 K 4.5 05/28/2017 CL 102 05/28/2017 CO2 24 05/28/2017 ANIONGAP 12 05/28/2017 CALCIUM 8.8 05/28/2017 ESTGFR >60 05/28/2017 Results for LFT (Hepatic Function Panel) Have you viewed Optional tests (see list below)? yes The following OPTIONAL studies may be available in [facility]: Previous studies performed (Select all that apply): [X] Endoscopy report available in [facility] The most current assessment of this problem can be found in the [facility] note dated 05/28/2017. My clinical question: 61 yo w/PMHx of gastric bypass admitted with atypical chest pain and cardiac cath without a culprit lesion. Has had many ED visits for same pain, but no etiology yet identified. Pending specialist evaluation, I anticipate (choose one): [X] Referral as Co-Management Do Not Type Below Here [id number] Questions: My question or request is: See comment Discharge References/Attachments None documented in this encounter Discharge Instructions * Patient Instructions* Mariana Holden MD - 05/28/2017 11:11 AM EST Patient Instructions on Discharge to Home Why you were hospitalized: You were admitted to the hospital because there was concern that the chest pain and difficulty breathing that you have been having could be related to your heart. To definitively rule out problems with your heart we did a procedure called a cardiac cath, which directly looks at your heart's blood vessels and they looked relatively normal. We will refer you to GI so that they can further investigate alternative reasons for why you are having this persistent chest pain. New Medications: None Medication Changes: - Stop taking atorvastatin until advised by your primary doctor to re-start - Stop taking ibuprofen When to call your doctor: - Call if you develop worsening chest pain/changes in the quality of your chest pain, worsening SOB, leg swelling, cough, inability to swallow foods/liquids, or any other concerning symptoms Activity level: - As tolerated Diet: - Healthy diet Driving: - Per your routine after [address] if you feel dizzy or lightheaded Follow up Appointments: Future Appointments Date Time Provider Department Center 05/31/2017 2:00 PM Yung Olsen MD [facility] Card[facility] - A referral has been placed to the GI specialists, you should hear from them to schedule an appointment - A follow-up appointment needs to be scheduled with your PCP, contact us if you don't hear about this appointment by Monday Your Inpatient Doctor(s) at [facility]: Brendan Chua MD - Attending physician Mariana Holden MD - Resident physician Nawaf Poon MD- Rn Child physician Your Primary Care Provider: MD D[address]en [address] / [place] [address] For questions regarding issues relating to your hospitalization on the Hospital Medicine Service, please contact your inpatient physician through the [facility] Underground Repairer [phone]. Issues after hours and on weekends will be handled by the Hospitalist staff on-call. documented in this encounter Medications at Time [...] by mouth 2 times daily (with meals). meTOPROLOL succinate (TOPROL-XL) 25 mg Tablet Sustained Release 24 hr take 1 tablet by mouth once daily 0 05/09/2017 12/25/2019 PARoxetine (PAXIL) 30 mg TabletIndications:anxie ty with depression Take 30 mg by mouth every morning. Indications: Anxiety with Depression 12/25/2019 multivitamin (THERAGRAN) Tablet Take 1 tablet by mouth daily. 07/29/2021 cholecalciferol, Vitamin D3, 2,000 unit TabletIndications:vitam in D deficiency Take 1 tablet by mouth. Indications: Vitamin D Deficiency 07/29/2021 lisinopril (PRINIVIL;ZESTRIL) 2.5 mg TabletIndications:diabe tic nephropathy Take 2.5 mg by mouth daily. Indications: Diabetic Nephropathy 12/17/2018 ascorbic acid (VITAMIN C) 500 mg Tablet Take 500 mg by mouth daily. 12/17/2018 omeprazole (PRILOSEC) 20 mg Capsule, Delayed Release(E.C.) Take 40 mg by mouth daily. 12/17/2018 documented as of this encounter Progress Notes * Antonina Ty RN - 05/28/2017 1:44 PM EST Patient Name: Yung Betancur Patient Age: 61 y.o. Birthdate: 1955 Admit date: 05/26/2017 Attending Physician: Brendan Chua MD Pt discharged home. AVS reviewed with pt, all questions answered. PIV removed per protocol. All belongings accounted for. Pt left in the care of family. * Brendan Chua MD - 05/28/2017 12:37 PM EST Images from the original note were not included. Cardiology Staff Day of Discharge Note Summary of Clinical History and Overnight Events: This gentleman was admitted with somewhat atypical chest pain. His CPK was mildly elevated but his troponin was negative. Symptoms were extremely prolonged (lasting days). 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 It did not appear to be a potential cause of his clinical pain. The source of his pain remains unclear. We are scheduling him for an outpatient GI workup with special attention to his esophagus. Discharge Planning: As this was expected to be the day of discharge, we used this daily visit as anopportunity to review: ?? Events of hospitalization ?? Discharge medications ?? Post-discharge activity including any appropriate restrictions ?? Follow-up After the above, I answered all questions. Summary of Plan: 1. Discharge today 2. Disposition: Home 3. Medication changes: Documented in formal discharge summary 4. Planned follow-up: Detailed in discharge summary. 5. Other recommendations: Outpatient GI consultation to be scheduled Brendan Chua MD, FA, [facility] * Antonina Ty RN - 05/28/2017 11:50 AM EST Cardiac/Telemetry Nursing Progress Note Subjective: C/o lower back pain, no c/o chest pain Objective: Vital Signs: See Vital signs below Cardiac Meds: See online MAR Labs: See labs in online chart. Assessment: D/C report; Rare PVCs, Rare PACs, RI 0.19, QRS 0.11, RR 1.22, QT 0.45, QTc 0.41 Plan: Continue telemetry monitoring. Notify MD of any changes. See Attached Tele Strip. (in green paper chart). Last value Range last 12 hrs Temperature Temp: 36.8 ??C (98.2 ??F) Temp: [36.6 ??C (97.9 ??F)-36.8 ??C (98.2 ??F)] Heart Rate Heart Rate: 53 Heart Rate: [52-56] Blood Pressure BP: 112/67 BP: (112-132)/(64-74) Respiratory Rate Resp: 20 Resp: [16-20] SpO2 SpO2: 98 % SpO2: [94 %-98 %] * Naz Mathias RN - 05/28/2017 5:48 AM EST Cardiac/Telemetry Nursing Progress Note Subjective: I feel good Objective: Vital Signs: See Vital signs below Cardiac Meds: See online MAR Labs: See labs in online chart. Assessment: SB/SR HR 45-80 ALARMS 95/45 RI 0.19 QRS 0.12 RR 1.05 QT 0.40 QTc 0.39 Plan: Continue telemetry monitoring. Notify MD of any changes. See Attached Tele Strip. (in green paper chart). Last value Range last 12 hrs Temperature Temp: 36.7 ??C (98.1 ??F) Temp: [36.4 ??C (97.5 ??F)-36.7 ??C (98.1 ??F)] Heart Rate Heart Rate: 54 Heart Rate: [52-68] Blood Pressure BP: 118/64 BP: (118-124)/(56-69) Respiratory Rate Resp: 18 Resp: [16-18] SpO2 SpO2: 94 % SpO2: [94 %-96 %] * Nawaf Poon - 05/27/2017 6:28 AM EST Inpatient Cardiology Progress Note Patient Name: Yung Betancur Date of Admission: 05/26/2017 ( Hospital Day 1 day ) Service: S1 ID: Yung Betancur is a 61 y.o. male with a history of GERD, HLD, HTN, DM2, s/p gastric bypass (2009) transferred from [facility] for atypical chest pain and SOB. Active Problems: - Atypical chest pain - GERD - T2DM - HTN 24 hr events: - Repeat cardiac enzymes negative; heparin gtt discontinued - No acute events overnight - Continues to have mild chest discomfort and SOB - identical in nature of symptoms yesterday - States that nitro gtt or BMX did not help for discomfort or SOB ROS: Denies palpitations, PND, Orthopnea, dizziness/LH, LE swelling or pain, n/v, abd pain. Telemetry: NSR, rates 50-60 Meds: Continuous Infusions: Scheduled Meds: ??? atorvastatin 80 mg Oral QPM ??? lisinopril 2.5 mg Oral Daily ??? meTOPROLOL succinate 25 mg Oral Daily ??? pantoprazole 40 mg Oral Daily ??? PARoxetine 30 mg Oral Daily ??? sodium chloride 0.9 % 5 mL Intravenous BID ??? insulin lispro 1-4 Units Subcutaneous Q4H VINCENT ??? acetaminophen 650 mg Oral Q4H ??? enoxaparin 40 mg Subcutaneous Nightly PRN Meds:.sodium chloride 0.9 %, lidocaine, nitroGLYcerin, dextrose 50% OR glucagon (human recombinant) Physical Exam: Last value Range last 24 hrs Temperature Temp: 37 ??C (98.6 ??F) Temp: [36.7 ??C (98.1 ??F)-37 ??C (98.6 ??F)] Heart Rate Heart Rate: 61 Heart Rate: [56-66] Blood Pressure BP: 119/64 BP: (105-133)/(60-75) Respiratory Rate Resp: 18 Resp: [16-20] SpO2 SpO2: 97 % SpO2: [94 %-97 %] Intake/Output Summary (Last 24 hours) at 05/27/17 0628 Last data filed at 05/27/17 0400 Gross per 24 hour Intake 610 ml Output 2500 ml Net -1890 ml cumulative I/O's since admission: Patient Vitals for the past 168 hrs: Weight 05/27/17 0428 (!) 113.3 kg (249 lb 12.5 oz) 05/26/17 1548 (!) 114.8 kg (253 lb 1.4 oz) Admit wt: 114.8 kg Gen: in bed in NAD; alert, oriented, interactive HEENT: MMM CV: RRR, S1S2, no m/r/g, no JVD Resp: CTAB Abd: nondistended, soft, NT, +BS Ext: WWP, 2+ DP pulses, no peripheral edema Neuro: grossly intact Labs Recent Labs 05/27/17 0404 05/26/17 1800 WBC 4.6 5.1 HGB 10.4* 10.7* HCT 33.0* 32.9* PLATELET 156 151 Recent Labs 05/27/17 0404 05/26/17 1800 NA 137 139 K 4.6 4.5 CL 100 103 CO2 24 Not Perf BUN 15 15 CREATININE 1.03 0.97 No results for input(s): AST, ALT, ALKPHOS, BILITOT, BILIDIR in the last 168 hours. Recent Labs 05/27/17 0404 05/26/17 1800 CALCIUM 8.5 9.1 MAGNESIUM 0.86 -- Recent Labs 05/26/17 2214 05/26/17 1800 PTT 41* 43* Recent Labs 05/26/17 1800 CK 389* TROPONINT <0.01 Recent Labs 05/27/17 0403 05/27/17 0026 05/26/17 2204 05/26/17 2019 05/26/17 1707 POCGLU 151 128 126 320* 143 Imaging/Studies: TTE: pending Assessment: 61 y.o. male with GERD, HLD, HTN, DM2, s/p gastric bypass (2009) who was transferred from [facility] for ~12 hours of atypical chest pain and SOB. Cardiac enzymes have been negative and heparinwas discontinued. However, he continues to have pain that has not improved with nitroglycerin or BMX for presumed GERD component of chest discomfort. Plan for cath today to rule out ischemia. Plan: 1. Atypical chest pain - Scheduled tylenol - Cardiac enzymes negative while here ( - Continue ASA, metoprolol succ 25, and atorvastatin - TTE ordered - Cath today 2. DM2 - Lispro sliding scale - Hold home glipizide and metformin - Continue gabapentin ?? 3. HTN - Continue lisinopril ?? 4. Depression - Continue paroxetine ?? 5. GERD - Pantoprazole in place of omeprazole - BMX for GERD component of chest pain ?? 6. Routine - DVT ppx: Lovenox 40mg qd - GI ppx: Pantoprazole - Diet: Carb controlled diet - Code status: Full code Nawaf Poon MD, PGY-1 Cardiology S1 (Pager [phone]) Associated attestation - Brendan Chua MD - 05/27/2017 2:04 PM EST Images from the original note were not included. Cardiology Staff Addendum: This patient was seen today and personally interviewed and examined. Agree with documentation by Dr. Poon, which I have reviewed and independently confirmed. Briefly, he has been stable overnight. He continues, however, to have steady for over 10 chest pain. He has some tenderness in his upper chest on examination today but this does not re-create his clinical symptoms. His pain was not affected by a GI cocktail last night. His cardiac enzymes remain negative. In view of the extent to which this pain has been debilitating for him in the number of emergency room visits which have occurred as result of his concern that his symptoms may be cardiac, I think itreasonable to proceed with angiographic assessment of his coronary arteries with the hope of settling the issue and allowing us to move on to other causes, including gastrointestinal, of his chest pain. Brendan Chua MD, [facility], [facility] * Amber Olsen RN - 05/27/2017 3:23 AM EST OUTCOME EVALUATION NOTE: OUTCOME SUMMARY: A&O. VSS on RA. SR/SB on telemetry with HR 50-85.Patient c/o dull back ache throughout shift, relieved with scheduled tylenol. Heparin gtt off at midnight and Lovenox started. Patient NPO since midnight. Patient slept between care. Will continue to monitor. PLAN MOVING FORWARD: ?cardiac cath to r/o cardiac nature INDIVIDUALIZED FALL PREVENTION INTERVENTIONS: Patient-specific fall risk factors per assessment: [current deficits]: Hospitalization, generalizedweakness Assistance [level of assistance required for transfers and ambulation]: SB Supervision [direct monitoring required during toileting and ADLs]: Intermittent, rings appropriately Surveillance [continuous indirect monitoring]: Telemetry, hourly rounding, call ayoub in reach documented in this encounter H&P Notes * Mariana Holden MD - 05/26/2017 4:01 PM EST Cardiology Admission History and Physical Patient Name: Yung Betancur Service: Cardiology S1, pgr 2010 Responsible Attending: Brendan Chua MD Chief Complaint: I felt dizzy while feeding my animals History of Present Illness 61 yo M w/PMHx of GERD, HLD, HTN, DM2 (HbA1c 7.2), and gastric bypass (2009) transferred from [facility] over concerns for unstable angina. Patient states that he has had substernal chest heaviness that radiates down his L arm and to his back since waking up this morning. The pain is worse with taking deep breaths, may be somewhat positional, and is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 ORDERABLE S [facility] [place] [address] * Magnesium (05/28/2017 6:58 AM EST) Magnesium 0.79 0.69 - 1.07 mmol/L [facility] Blood specimen (specimen) 05/28/2017 6:58 AM EST 05/28/2017 7:09 AM EST Narrative Resulting Agency Comment Spec In Lab Rei Vines MD CHEMISTRY ORDERABLES [facility] [place] [address] * Basic Metabolic Panel (non-fasting) (05/28/2017 6:58 AM EST) Pathologist [facility] Glucose Lvl 162 65 - 199 mg/dL [facility] Comment:Diabetes: >=200 mg/d L plus symptoms BUN 16 10 - 20 mg/dL [facility] Creatinine 1.05 0.80 - 1.50 mg/dL [facility] Sodium 138 135 - 145 mmol/L [facility] Potassium 4.5 3.5 - 5.0 mmol/L [facility] Comment: Please note: ??Patients with WBC >100,000 may have falsely elevated Potassium levels. ??For accurate Potassium quantification in these patients send serum separator tube (gold top) for subsequent determinations. ??Contact the Clinical Chemistry Laboratory if there are any questions. Chloride 102 98 - 107 mmol/L [facility] CO2 24 22 - 31 mmol/L [facility] Anion Gap 12 5 - 15 mmol/L [facility] Calcium 8.8 8.5 - 10.5 mg/dL [facility]ORY Estimated GFR >60 >=60 [facility] LABORATORY Comment: The reported eGFR should be multiplied by 1.2 for patients. The MDRD is not an appropriate measure of renal function for patients with body mass extremes or in patients with acute kidney failure. http://[employer].[facility]/DHnkdep http://ShopEat.com/DHMCnkf Blood specimen (specimen) 05/28/2017 6:58 AM EST 05/28/2017 7:09 AM EST Narrative Resulting Agency Comment Spec In Lab Rei Vines MD CHEMISTRY ORDERABLES Performing Organization Address [facility] Co de Phone Number [facility] [place] [address] * POCT Glucose (05/28/2017 4:00 AM EST) POC Glucose 148 65 - 199 mg/dL [facility] Comment: Supplemental ranges: <140 mg/dL before meals <180 mg/dL all other times of the day Blood specimen (specimen) 05/28/2017 4:00 AM EST 05/28/2017 4:00 AM EST Brendan Chua MD POINT OF CARE TEST O RDERABLES Performing Organization Address [facility] Co de Phone Number [facility] [place] [address] * POCT Glucose (05/28/2017 2:00 AM EST) POC Glucose 183 65 - 199 mg/dL [facility] Comment: Supplemental ranges: <140 mg/dL before meals <180 mg/dL all other times of the day Blood specimen (specimen) 05/28/2017 2:00 AM EST 05/28/2017 2:00 AM EST Brendan Chua MD POINT OF CARE TEST O RDERABLES Performing Organization Address [facility] Co de Phone Number [facility] [place] [address] * (ABNORMAL) POCT Glucose (05/27/2017 11:56 PM EST) POC Glucose 253(H) 65 - 199 mg/dL [facility] Comment: Supplemental ranges: <140 mg/dL before meals <180 mg/dL all other times of the day Blood specimen (specimen) 05/27/2017 11:56 PM EST 05/27/2017 11:56 PM EST Brendan Chua MD POINT OF CARE TEST O RDERAALINE Performing Organization Address [facility] Co de Phone Number [facility] [place] [address] * POCT Glucose (05/27/2017 10:10 PM EST) POC Glucose 123 65 - 199 mg/dL [facility] Comment: Supplemental ranges: <140 mg/dL before meals <180 mg/dL all other times of the day Blood specimen (specimen) 05/27/2017 10:10 PM EST 05/27/2017 10:10 PM EST Brendan Chua MD POINT OF CARE TEST O EUGENIAERAALINE Performing Organization Address [facility] Co de Phone Number [facility] [place] [address] * (ABNORMAL) POCT Glucose (05/27/2017 8:17 PM EST) POC Glucose 264(H) 65 - 199 mg/dL [facility] Comment: Supplemental ranges: <140 mg/dL before meals <180 mg/dL all other times of the day Blood specimen (specimen) 05/27/2017 8:17 PM EST 05/27/2017 8:17 PM EST Brendan Chua MD POINT OF CARE TEST O RDERAALINE Performing Organization Address [facility] de Phone Number [facility] [place] [address] * CARDIAC CATHETERIZATION (05/27/2017 3:45 PM EST) Anatomical Region Laterality Modality Other Narrative 05/29/2017 12:03 PM EST ?[facility] ? Cardiac Catheterization/Intervention Report ? Patient Name: Pipe, Yung ? Procedure Date: 05/27/2017 ? A #: [id number] ? Primary Physician: Green, Saran J ? Case #: [id number] ? File Name: [id number] ? Catheterization Order Number: [id number] ? [facility] ? Final Report [place], [place] ? Patient Name: ? Yung Betancur ?ID#: ?[id number] ? : ?1955 ? Procedure Date: ? May 27, 2017 ?Case #: ? [id number] ? Room: ? 5 ? Case Physician: ? Saran Green M.D. ? Start: ?14:58 ?Fellow: ? Scott Santoro M.D. ? Admission: ??05/26/2017 ? Referring Physician: ??Yung Horn M.D. ? Procedures: ?* Coronary Angiography ?* Left Heart Catheterization ? History ?Yung Betancur is a 61 year old man. He has hypertension. The patient has ?a history of smoking. He has hypercholesterolemia. The patient has ?diabetes managed with oral medication. He also has atypical symptoms for ?coronary artery disease and a history of chest pain. Prior to the ?initiation of this procedure, the patient was designated as ASA Class ?III. ? Patient Status at Catheterization: ?The patient presented with: symptom unlikely to be ischemic (w/i 14 ?days). [employer] angina class was III. No stress or ?imaging studies were performed prior to this procedure ? Technique: ?A 6 SLFr sheath was inserted in the right radial artery utilizing the ?Seldinger technique. The left coronary artery was injected utilizing a ?5Fr Tig 4.5 catheter. A 5Fr Tig 4.5 catheter was used to inject the right ?coronary artery. Left ventricular pressure was performed with a 5Fr Tig ?4.5 catheter. 5,000 units of heparin were administered. Intracoronary ?nitroglycerin was given during this case. A total of 100cc of Omnipaque ?were opened, 80cc of Omnipaque were administered and 20cc of Omnipaque ?were wasted. Radiation: Fluoro time was 6.3 minutes, dose area product ?was 40,489 mGYcm2 and air kerma was 976 mGY. ?The patient received the following medications prior to and during the ?procedure: Low Molecular Weight Heparin (any) and Unfractionated Heparin ?(any). ? Hemodynamics: ?Left Heart Pressures ? Resting: ? Syst Diast ? EDP ?a ?v ? m ?Ao 101 ?? 64 ?81 ?LV ? 15 ? Post Contrast: ? Syst Diast ? EDP ?a ?v ? m ?Ao 103 ?? 62 ?80 ?LV 100 ? 15 ? Coronary Angiography: ?Dominance: Right ?Left Main ? The left main was normal. ?Left Anterior Descending ? There was mild diffuse disease of the mid segment of the left ? anterior descending artery (LAD). ??The LAD was large. ??The distal ? segment of the LAD had mild diffuse disease. ? Systolic bridging mid LAD. ?Left Circumflex ? The left circumflex (LCX) was normal. ?Right Coronary Artery ? The right coronary artery (RCA) was normal. ? Vascular Access: ?Vascular Access Management: ? Mechanical Compression of the right radial artery access site was ? performed. ? Conclusions: ?* Nonobstructive coronary artery disease ?* Systolic bridging mid LAD. ? Complications/Events: ?The patient had no complications during these procedures. ? Recommendations: ?Based upon the results of this procedure, it was recommended that the ?patient be managed with medical therapy. ?The attending physician was present for the entire procedure. ?Dr. Saran Green M.D. was present during the moderate sedation ?intraservice time as documented by the sedation nurse. ??Case time = 00:19. ?Dr. Saran Green M.D. performed the coronary angiography and left ?heart catheterization. ? Saran Mckoy Green, M.D. ? Electronically Signed by: Saran Green, M.D. ? Report Finalized: 05/27/2017 ??15:53 ? Report Last Ammended: 05/29/2017 ??07:50 ? Procedure Note Saran Green MD - 05/29/2017 [facility] Cardiac Catheterization/Intervention Report Patient Name: Yung Betancur Procedure Date: 05/27/2017 A #: [id number] Primary Physician: Saran Green Case #: [id number] File Name: [id number] Catheterization Order Number: [id number] [facility] FinalReport [place], [place] Patient Name: Yung Betancur ID#:[id number] :1955 Procedure Date: May 27, 2017 Case #: [id number] Room: 5 Case Physician: Saran Green M.D. Start: 14:58 Fellow: Scott Santoro M.D. Admission:05/26/2017 Referring Physician: Yung Horn M.D. Procedures: * Coronary Angiography * Left Heart Catheterization History Yung Betancur is a 61 year old man. He has hypertension. The patienthas a history of smoking. He has hypercholesterolemia. The patient has diabetes managed with oral medication. He also has atypical symptomsfor coronary artery disease and a history of chest pain. Prior to the initiation of this procedure, the patient was designated as ASAClass III. Patient Status at Catheterization: The patient presented with: symptom unlikely to be ischemic (w/i 14 days). [employer] angina class was III. Nostress or imaging studies were performed prior to this procedure Technique: A 6 SLFr sheath was inserted in the right radial artery utilizingthe Seldinger technique. The left coronary artery was injected utilizinga 5Fr Tig 4.5 catheter. A 5Fr Tig 4.5 catheter was used to inject theright coronary artery. Left ventricular pressure was performed with a 5FrTig 4.5 catheter. 5,000 units of heparin were administered.Intracoronary nitroglycerin was given during this case. A total of 100cc ofOmnipaque were opened, 80cc of Omnipaque were administered and 20cc ofOmnipaque were wasted. Radiation: Fluoro time was 6.3 minutes, dose areaproduct was 40,489 mGYcm2 and air kerma was 976 mGY. The patient received the following medications prior to and duringthe procedure: Low Molecular Weight Heparin (any) and UnfractionatedHeparin (any). Hemodynamics: Left Heart Pressures Resting: Syst Diast EDP a v m Ao 101 64 81 LV 15 Post Contrast: Syst Diast EDP a v m Ao 103 62 80 LV 100 15 Coronary Angiography: Dominance: Right Left Main The left main was normal. Left Anterior Descending There was mild diffuse disease of the mid segment of the left anterior descending artery (LAD). The LAD was large. Thedistal segment of the LAD had mild diffuse disease. Systolic bridging mid LAD. Left Circumflex The left circumflex (LCX) was normal. Right Coronary Artery The right coronary artery (RCA) was normal. Vascular Access: Vascular Access Management: Mechanical Compression of the right radial artery access sitewas performed. Conclusions: * Nonobstructive coronary artery disease * Systolic bridging mid LAD. Complications/Events: The patient had no complications during these procedures. Recommendations: Based upon the results of this procedure, it was recommended thatthe patient be managed with medical therapy. The attending physician was present for the entire procedure. Dr. Saran Green M.D. was present during the moderate sedation intraservice time as documented by the sedation nurse. Case time =00:19. Dr. Saran Green M.D. performed the coronary angiography and left heart catheterization. Saran Green M.D. Electronically Signed by: Saran Green M.D. Report Finalized: 05/27/2017 15:53 Report Last Ammended: 05/29/2017 07:50 Brendan Chua MD CARDIAC CATH ORDERAB LES * POCT Glucose (05/27/2017 12:06 PM EST) POC Glucose 130 65 - 199 mg/dL [facility] Comment: Supplemental ranges: <140 mg/dL before meals <180 mg/dL all other times of the day Blood specimen (specimen) 05/27/2017 12:06 PM EST 05/27/2017 12:06 PM EST Brendan Chua MD POINT OF CARE TEST O RDERABLES Performing Organization Address City/[facility]/ZIP Co de Phone Number [facility] [place] [address] * EKG 12 Lead (05/27/2017 11:57 AM EST) Ventricular rate 48 BPM MUSE SYSTEM Atrial Rate 48 BPM MUSE SYSTEM P-R Interval 180 ms MUSE SYSTEM QRS Duration 96 ms MUSE SYSTEM Q-T Interval 436 ms MUSE SYSTEM QTC Calculated (Bezet) 389 ms MUSE SYSTEM Calculated P [place] 63 degrees MUSE SYSTEM Calculated R [place] 6 degrees MUSE SYSTEM Calculated T [place] 23 degrees MUSE SYSTEM INTERPRETATION Marked sinus bradycardia Early transition Abnormal ECG When compared with ECG of 26-MAY-2017 16:14, No significant change was found Confirmed by MD SANGEETA, PING ([id number]) on 05/29/2017 8:48:54 AM MUSE SYSTEM 05/27/2017 11:5 7 AM EST 05/29/2017 8:48 AM EST Brendan Chua MD ECG ORDERABLES MUSE SYSTEM * POCT Glucose (05/27/2017 8:14 AM EST) POC Glucose 169 65 - 199 mg/dL [facility] Comment: Supplemental ranges: <140 mg/dL before meals <180 mg/dL all other times of the day Blood specimen (specimen) 05/27/2017 8:14 AM EST 05/27/2017 8:14 AM EST Brendan Chua MD POINT OF CARE TEST O RDERABLES Performing Organization Address City/[facility]/[place] [address] * Differential, Automated (05/27/2017 4:04 AM EST) Neutrophils % 55.8 % [facility] LAB[facility] Neutr Abs (ANC) 2.55 1.70 - 6.10 x10(3)/[facility] LABORATORY Lymphocytes % 31.5 % [facility] Lymphocytes Abs 1.4 0.9 - 3.2 x10(3)/[facility] LABORATORY Monocytes % 10.3 % [facility] Monocyte Abs 0.5 0.3 - 0.9 x10(3)/[facility] LABORATORY Eosinophils % 1.5 % [facility] Eosinophils Abs 0.1 0.0 - 0.4 x10(3)/[facility] LABORATORY Basophils % 0.7 % [facility] Basophils Abs 0.0 0.0 - 0.1 x10(3)/[facility] LABORATORY Immature Gran % 0.20 % [facility] Comment: Immature granulocytes(IG's)percentage and absolute count will include metamyelocytes, myelocytes, and promyelocytes. Blood smears from CBCs yielding IG's will be scanned manually for concordance. If this scan disagrees with the automated IG or if promyelocytes are noted, a manual differential will be performed. Shana Gran Abs 0.01 0.00 - 0.04 x10(3)/[facility] LABORATORY Blood specimen (specimen) 05/27/2017 4:04 AM EST 05/27/2017 4:10 AM EST Narrative Resulting Agency Comment Spec In Lab Rei Vines MD HEMATOLOGY ORDERABLE S Performing Organization Address City/[facility]/ZIP Co [place] [address] * (ABNORMAL) Hemogram (05/27/2017 4:04 AM EST) WBC 4.6 4.0 - 9.5 x10(3)/[facility] LABORATORY RBC 3.96(L) 4.58 - 5.54 x10(6)/[facility] LABORATORY Hemoglobin 10.4(L) 13.7 - 16.5 gm/dL [facility] Hematocrit 33.0(L) 40.5 - 48.5 % [facility] MCV 83.3 82.9 - 93.1 fL [facility] MCH 26.3(L) 27.5 - 32.1 pg [facility] MCHC 31.5(L) 32.0 - 35.7 gm/dL [facility] Platelets 156 145 - 357 x10(3)/[facility] RDWSD 41.8 36.0 - 45.0 [facility] RDWCV 13.8 11.4 - 13.8 % [facility] MPV 10.4 7.6 - 12.9 [facility] LABORATORY nRBC % Auto 0.0 % [facility] nRBC Abs Auto 0.000 0.000 - 0.000 x10(3)/[facility] LABORATORY Blood specimen (specimen) 05/27/2017 4:04 AM EST 05/27/2017 4:10 AM EST Narrative Resulting Agency Comment Spec In Lab Rei Vines MD [place] [address] * Magnesium (05/27/2017 4:04 AM EST) Magnesium 0.86 0.69 - 1.07 mmol/L [facility] Blood specimen (specimen) 05/27/2017 4:04 AM EST 05/27/2017 4:09 AM EST Narrative Resulting Agency Comment Spec In Lab Rei Vines MD CHEMISTRY ORDERABLES Performing Organization Address [facility] Co de Phone Number [facility] [place] [address] * Basic Metabolic Panel (non-fasting) (05/27/2017 4:04 AM EST) Glucose Lvl 151 65 - 199 mg/dL [facility] Comment:Diabetes: >=200 mg/d L plus symptoms BUN 15 10 - 20 mg/dL [facility] Creatinine 1.03 0.80 - 1.50 mg/dL [facility] Sodium 137 135 - 145 mmol/L [facility] Potassium 4.6 3.5 - 5.0 mmol/L [facility] Comment: Please note: ??Patients with WBC >100,000 may have falsely elevated Potassium levels. ??For accurate Potassium quantification in these patients send serum separator tube (gold top) for subsequent determinations. ??Contact the Clinical Chemistry Laboratory if there are any questions. Chloride 100 98 - 107 mmol/L [facility] CO2 24 22 - 31 mmol/L [facility] Anion Gap 13 5 - 15 mmol/L [facility] Calcium 8.5 8.5 - 10.5 mg/dL [facility] Estimated GFR >60 >=60 [facility] Comment: The reported eGFR should be multiplied by 1.2 for patients. The MDRD is not an appropriate measure of renal function for patients with body mass extremes or in patients with acute kidney failure. http://[employer].com/DHnkdep http://[employer].com/DHMCnkf Blood specimen (specimen) 05/27/2017 4:04 AM EST 05/27/2017 4:09 AM EST Narrative Resulting Agency Comment Spec In Lab Rei Vines MD CHEMISTRY ORDERABLES Performing Organization Address City/[facility] Co de Phone Number [facility] [place] [address] * POCT Glucose (05/27/2017 4:03 AM EST) POC Glucose 151 65 - 199 mg/dL [facility] Comment: Supplemental ranges: <140 mg/dL before meals <180 mg/dL all other times of the day Blood specimen (specimen) 05/27/2017 4:03 AM EST 05/27/2017 4:03 AM EST Brendan Chua MD POINT OF CARE TEST O RDERABLES Performing Organization Address [facility] Co de Phone Number [facility] [place] [address] * POCT Glucose (05/27/2017 12:26 AM EST) Pathologist [facility] POC Glucose 128 65 - 199 mg/dL [facility] Comment: Supplemental ranges: <140 mg/dL before meals <180 mg/dL all other times of the day Blood specimen (specimen) 05/27/2017 12:26 AM EST 05/27/2017 12:26 AM EST Brendan Chua MD POINT OF CARE TEST O RDERABLES Performing Organization Address [facility] Co de Phone Number [facility] [place] [address] * SCAN DOC: CARDIAC CATH (05/27/2017 12:00 AM EST) Anatomical Region Laterality Modality Cardiac Other Narrative 05/27/2017 12:00 AM EST Ordered by an unspecified provider. Scanning Provider MEDIA MGR SCAN EXT O RDR/RSLT * (ABNORMAL) APTT (05/26/2017 10:14 PM EST) PTT 41(H) 25 - 35 sec [facility] Comment: The recommended therapeutic range for full dose, unfractionated heparin at [facility] is 80 ? 114 seconds. The use of the anti-Xa (heparin) level rather than the PTT is recommended for monitoring anticoagulation intensity in critically ill patients receiving unfractionated heparin by continuous IV infusion. Blood specimen (specimen) 05/26/2017 10:14 PM EST 05/26/2017 10:21 PM EST Narrative Resulting Agency Comment Spec In Lab Rei Vines MD HEMATOLOGY ORDERABLE S Performing Organization Address [facility] Co de Phone Number [facility] [place] [address] * POCT Glucose (05/26/2017 10:04 PM EST) POC Glucose 126 65 - 199 mg/dL [facility] Comment: Supplemental ranges: <140 mg/dL before meals <180 mg/dL all other times of the day Blood specimen (specimen) 05/26/2017 10:04 PM EST 05/26/2017 10:04 PM EST Brendan Chua MD POINT OF CARE TEST Jonathon NICK Performing Organization Address [facility] Co de Phone Number [facility] [place] [address] * (ABNORMAL) POCT Glucose (05/26/2017 8:19 PM EST) POC Glucose 320(H) 65 - 199 mg/dL [facility] Comment: Supplemental ranges: <140 mg/dL before meals <180 mg/dL all other times of the day Blood specimen (specimen) 05/26/2017 8:19 PM EST 05/26/2017 8:19 PM EST Brendan Chua MD POINT OF CARE TEST O SANDOVAL Performing Organization Address [facility] Co de Phone Number [facility] [place] [address] * Basic Metabolic Panel (non-fasting) (05/26/2017 6:00 PM EST) Glucose Lvl 127 65 - 199 mg/dL [facility] Comment:Diabetes: >=200 mg/d L plus symptoms BUN 15 10 - 20 mg/dL [facility] Creatinine 0.97 0.80 - 1.50 mg/dL [facility] Sodium 139 135 - 145 mmol/L [facility] [facility] Potassium 4.5 3.5 - 5.0 mmol/L [facility] Comment: Please note: ??Patients with WBC >100,000 may have falsely elevated Potassium levels. ??For accurate Potassium quantification in these patients send serum separator tube (gold top) for subsequent determinations. ??Contact the Clinical Chemistry Laboratory if there are any questions. Chloride 103 98 - 107 mmol/L [facility] CO2 Not Perf 22 - 31 mmol/L [facility] Comment:Add-on request. Edwin le too old to perform test. Anion Gap Unable to Calculate 5 - 15 mmol/L [facility] Calcium 9.1 8.5 - 10.5 mg/dL [facility] Estimated GFR >60 >=60 [facility] Comment: The reported eGFR should be multiplied by 1.2 for patients. The MDRD is not an appropriate measure of renal function for patients with body mass extremes or in patients with acute kidney failure. [email or web address]/DHnkdep [email or web address]://[employer]/DHMCnkf Blood specimen (specimen) Venous Draw / Unknown 05/26/2017 6:00 PM EST 05/26/2017 7:31 PM EST Narrative Resulting Agency Comment Spec In Lab Rei Vines MD CHEMISTRY ORDERABLES [facility] [place] [address] * Differential, Automated (05/26/2017 6:00 PM EST) Neutrophils % 65.5 % [facility] Neutr Abs (ANC) 3.36 1.70 - 6.10 x10(3)/mcL [facility] Lymphocytes % 25.1 % [facility] Lymphocytes Abs 1.3 0.9 - 3.2 x10(3)/[facility] Monocytes % 7.8 % [facility] Monocyte Abs 0.4 0.3 - 0.9 x10(3)/[facility] Eosinophils % 1.0 % [facility] Eosinophils Abs 0.0 0.0 - 0.4 x10(3)/[facility] Basophils % 0.4 % [facility] Basophils Abs 0.0 0.0 - 0.1 x10(3)/[facility] Immature Gran % 0.20 % [facility] Comment: Immature granulocytes(IG's)percentage and absolute count will include metamyelocytes, myelocytes, and promyelocytes. Blood smears from CBCs yielding IG's will be scanned manually for concordance. If this scan disagrees with the automated IG or if promyelocytes are noted, a manual differential will be performed. Shana Gran Abs 0.01 0.00 - 0.04 x10(3)/[facility] Blood specimen (specimen) 05/26/2017 6:00 PM EST 05/26/2017 6:07 PM EST Narrative Resulting Agency Comment Spec In Lab Rei Vines MD HEMATOLOGY ORDERABLE S [facility] [place] [address] * (ABNORMAL) Hemogram (05/26/2017 6:00 PM EST) WBC 5.1 4.0 - 9.5 x10(3)/[facility] RBC 3.96(L) 4.58 - 5.54 x10(6)/[facility] Hemoglobin 10.7(L) 13.7 - 16.5 gm/dL [facility] Hematocrit 32.9(L) 40.5 - 48.5 % [facility] MCV 83.1 82.9 - 93.1 fL [facility] MCH 27.0(L) 27.5 - 32.1 pg [facility] MCHC 32.5 32.0 - 35.7 gm/dL [facility] Platelets 151 145 - 357 x10(3)/[facility] RDWSD 42.3 36.0 - 45.0 fL [facility] RDWCV 14.1(H) 11.4 - 13.8 % [facility] MPV 10.3 7.6 - 12.9 fL [facility] nRBC % Auto 0.0 % [facility] nRBC Abs Auto 0.000 0.000 - 0.000 x10(3)/[facility] Blood specimen (specimen) 05/26/2017 6:00 PM EST 05/26/2017 6:07 PM EST Narrative Resulting Agency Comment Spec In Lab Rei Vines MD HEMATOLOGY ORDERABLE S Performing Organization Address City/[facility]/ZIP Co de Phone Number [facility] [place] [address] * (ABNORMAL) APTT (05/26/2017 6:00 PM EST) [facility] Signature PTT 43(H) 25 - 35 sec [facility] Comment: The recommended therapeutic range for full dose, unfractionated heparin at [facility] is 80 ? 114 seconds. The use of the anti-Xa (heparin) level rather than the PTT is recommended for monitoring anticoagulation intensity in critically ill patients receiving unfractionated heparin by continuous IV infusion. Blood specimen (specimen) 05/26/2017 6:00 PM EST 05/26/2017 6:07 PM EST Narrative Resulting Agency Comment Spec In Lab Rei Vines MD HEMATOLOGY ORDERABLE S [facility] [place] [address] * (ABNORMAL) Cardiac Enzymes (LEB/CGP) (05/26/2017 6:00 PM EST) [facility] Troponin-T <0.01 0.00 - 0.00 ng/mL [facility] Comment: The 99th percentile for Troponin T is less than 0.01 ng/mL, any detectable cTnT concentration using this assay should be considered elevated. According to the third universal definition of myocardial infarction the following criteria with a clinical presentation consistent with acute myocardial ischemia meets the diagnosis for a myocardial infarction (NC). Detection of a rise and/or fall of cTnT, with at least one value greater than the 99th percentile (> or = 0.01) and with at least one of the following ?? Symptoms of ischemia ?? New or presumed new significant SD-oiapqyq-B wave (ST-T) changes or new left bundle [...] additional sample may be indicated. Reference: Third [place] Definition of Myocardial Infarction. Journal of the [place] [employer] 2012;60:1581-98 CK, Total 389(H) 0 - 200 unit/L [facility] Blood specimen (specimen) 05/26/2017 6:00 PM EST 05/26/2017 6:07 PM EST Narrative Resulting Agency Comment Spec In Lab Rei Vines MD CHEMISTRY ORDERABLES [facility] [place] [address] * POCT Glucose (05/26/2017 5:07 PM EST) [facility] POC Glucose 143 65 - 199 mg/dL [facility] Comment: Supplemental ranges: <140 mg/dL before meals <180 mg/dL all other times of the day Blood specimen (specimen) 05/26/2017 5:07 PM EST 05/26/2017 5:07 PM EST Rei Vines MD POINT OF CARE TEST O RDERABLES [facility] [place] [address] * EKG 12 Lead (05/26/2017 4:14 PM EST) Ventricular rate 56 BPM MUSE SYSTEM Atrial Rate 56 BPM MUSE SYSTEM P-R Interval 162 ms MUSE SYSTEM QRS Duration 90 ms MUSE SYSTEM Q-T Interval 426 ms MUSE SYSTEM QTC Calculated (Bezet) 411 ms MUSE SYSTEM Calculated P [place] 58 degrees MUSE SYSTEM Calculated R [place] 12 degrees MUSE SYSTEM Calculated T [place] 27 degrees MUSE SYSTEM INTERPRETATION Sinus bradycardia Otherwise normal ECG No previous ECGs available Confirmed by MD EZ, REI ([id number]) on 05/27/2017 11:23:33 AM MUSE SYSTEM 05/26/2017 4:14 PM EST 05/27/2017 11:23 AM EST Rei Vines MD ECG ORDERABLES Performing Organization Address City/[facility] Co de Phone Number MUSE SYSTEM * SCAN DOC: DIRECTOR FINANCIAL SYSTEMS (05/26/2017 12:00 AM EST) Anatomical Region Laterality Modality Other Narrative 05/26/2017 12:00 AM EST Ordered by an unspecified provider. 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 documented in this encounter Admitting Diagnoses Diagnosis Chest pain Chest pain, unspecified documented in this encounter Administered Medications Inactive Administered Medications - up to 3 most recent administrations Medication Order MAR Action Action Date Dose Rate Site acetaminophen (TYLENOL) tablet 650 mg 650 mg, Oral, EVERY 4 HOURS, First dose (after last modification) on Mon05/26/17 at 1800, Until Discontinued, Maximum dose of acetaminophen is 4000 mg from all sources in 24 hours., Routine Given 05/28/2017 9:10 AM EST 650 mg Given 05/28/2017 6:02 AM EST 650 mg Given 05/28/2017 2:02 AM EST 650 mg atorvastatin (LIPITOR) tablet 80 mg 80 mg, Oral, EVERY EVENING, First dose on Mon05/26/17 at 1800, Until Discontinued, Routine Given 05/26/2017 6:04 PM EST 80 mg calcium carbonate (TUMS) chewable tablet 500-1,000 mg 500-1,000 mg, Oral, EVERY 4 HOURS PRN, Starting on 05/27/17 at 2028, Until 05/28/17 at 1545, Heartburn, Give 500 mg (1 tablet) for mild to moderate heartburn. Give 1,000 mg (2 tablets) for severe heartburn., Routine Given 05/27/2017 8:40 PM EST 1,000 mg dextrose 50% IV syringe 25-50 mL 25-50 mL (12.5-25 g), Intravenous, EVERY 1 HOUR PRN, Starting on Mon05/26/17 at 1737, Until 05/28/17 at 1545, Low blood sugar, For BG 50-70: 120 mL Juice or Regular (not diet) soda OR 12.5 gram (25 mL) Dextrose 50% IV OR, if no IV access, 1 mg Glucagon IM. Recheck BG in 30 minutes. May repeat juice, dextrose or glucagon once per episode For BG less than 50: 240 mL Juice or Regular (not diet) soda OR 25 grams (50 mL) Dextrose 50% IV OR, if no IV access, 1 mg Glucagon IM. Recheck BG in 30 minutes. May repeat juice, dextrose, or glucagon once per episode. To avoid extravasation, push Dextrose 50% SLOWLY (3 mL over 1 minute) in a patent, running IV, preferably a central line. For persistent hypoglycemia, consider longer-acting treatment for the duration of the active insulin., Routine diphenhydrAMINE/aluminum-magnesium hydroxide with simethicone/lidocaine (BMX) oral suspension 5 mL, Oral, ONCE, 1 dose, On Mon05/26/17 at 1800, Each 5 mL contains equal parts of diphenhydramine (BENADYL), aluminum-magnesium hydroxide w/ simethicone (MAALOX), and lidocaine (XYLOCAINE) , STAT Given 05/26/2017 6:04 PM EST 5 mLs enoxaparin (LOVENOX) injection 40 mg 40 mg, Subcutaneous, NIGHTLY, First dose on Mon05/26/17 at 2330, Until Discontinued, Routine Given 05/27/2017 8:40 PM EST 40 mg Given 05/27/2017 12:45 AM EST 40 mg glucagon (human recombinant) injection SolR 1 mg 1 mg, Intramuscular, EVERY 1 HOUR PRN, Starting on Mon05/26/17 at 1737, Until Mon05/28/17 at 1545, Low blood sugar, For BG 50-70: 120 mL Juice or Regular (not diet) soda OR 12.5 gram (25 mL) Dextrose 50% IV OR, if no IV access, 1 mg Glucagon IM. Recheck BG in 30 minutes. May repeat juice, dextrose or glucagon once per episode For BG less than 50: 240 mL Juice or Regular (not diet) soda OR 25 grams (50 mL) Dextrose 50% IV OR, if no IV access, 1 mg Glucagon IM. Recheck BG in 30 minutes. May repeat juice, dextrose, or glucagon once per episode. To avoid extravasation, push Dextrose 50% SLOWLY (3 mL over 1 minute) in a patent, running IV, preferably a central line. For persistent hypoglycemia, consider longer-acting treatment for the duration of the active insulin., Routine heparin (porcine) 25,000 unit/500 mL (50 unit/mL) infusion 1 dose, Starting on Mon05/26/17 at 1554, Until Mon05/26/17 at 1607, MAVIS FRENCH: cabinet override heparin (porcine) injection 0-4,000 Units 0-4,000 Units, Intravenous, BOLUS PER HEPARIN PROTOCOL, Starting on Mon05/26/17 at 1737, Until Mon05/26/17 at 2311, Per Protocol, START ADJUSTMENT SCHEDULE 6 HOURS AFTER STARTING INFUSION aPTT Between 60 - 79 seconds: Bolus 2,000 units aPTT Less than 60 seconds: Bolus 4,000 units Increase infusion and recheck aPTT in 6 hours. , Routine Given 05/26/2017 10:40 PM EST 4,000 Units heparin 25,000 units in dextrose 5% 500 mL infusion 0-5,000 Units/hr (0-100 mL/hr), Intravenous, CONTINUOUS, Starting on Mon05/26/17 at 1800, Until Mon05/26/17 at 2311, BEGIN infusion at 1,000 units per hr (12 units/kg/hr). MAX INITIAL infusion rate is 1,000 units/hr. Target PTT = 80 - 114 seconds Start adjustment schedule 6 hours after starting infusion. If PTT is: - less than 60 seconds, Administer PRN bolus and increase rate by 450 units per hr (4 units/kg/hr) - 60 - 79 seconds, Administer PRN bolus and increase rate by 250 units per hr (2 units/kg/hr) - 80 - 114 seconds, No Change - 115 - 129 seconds, decrease rate by 100 units per hr (1 units/kg/hr) - 130 - 145 seconds, stop infusion for 30 minutes, then decrease rate by 250 units per hr (2 units/kg/hr) - Greater than 145 seconds, stop infusion for 60 minutes, then decrease rate by 350 units per hour (3 units/kg/hr) Repeat aPTT 6 hours after initiating heparin. Then 6 hours after each dose adjustment. When 2 consecutive aPTT within target range of 80 - 114 seconds, change aPTT to once every 24 hours with A.M. labs while on heparin. RN to order required aPTT - Per Protocol, Routine, Indication: ACS (STEMI vs NSTEMI vs UA) Rate/Dose Change 05/26/2017 10:43 PM EST 1,700 Units/hr 34 mL/hr Rate/Dose Verify 05/26/2017 6:10 PM EST 1,250 Units/hr 25 mL/hr New Bag 05/26/2017 4:07 PM EST 1,250 Units/hr 25 mL/hr insulin lispro (humaLOG) VIAL injection 1-4 Units 1-4 Units, Subcutaneous, EVERY 4 HOURS SCHEDULED, First dose on Mon05/26/17 at 2000, Until Discontinued, CORRECTION BOLUS Sensitive to insulin lean patient or total daily dose of all insulin needed to achieve glycemic control less than 30 units BG 140 - 160 Give 1 unit BG 161 - 200 Give 2 units BG 201 - 240 Give 3 units BG greater than 240, give 4 units and recheck BG in 2 hours. If less than 240 after two hours, give no insulin and resume prior schedule. If BG remains greater than 240, repeat 4 units (no more than three times) & call for new basal insulin orders. DO NOT hold if NPO, unless specifically told to do so., Routine Given 05/28/2017 11:54 AM EST 2 Units Given 05/28/2017 8:00 AM EST 2 Units Given 05/28/2017 4:15 AM EST 1 Units lisinopril (PRINIVIL;ZESTRIL) tablet 2.5 mg 2.5 mg, Oral, DAILY, First dose on Mon05/26/17 at 1800, Until Discontinued, Routine Given 05/28/2017 9:1 1 AM EST 2.5 mg Given 05/27/2017 8:42 AM EST 2.5 mg meTOPROLOL succinate (TOPROL-XL) XL tablet 25 mg 25 mg, Oral, DAILY, First dose on Mon05/26/17 at 1800, Until Discontinued, DO NOT CRUSH OR OPEN Hold for HR < 55 or SBP < 100, Routine Given 05/28/2017 9:1 1 AM EST 25 mg Given 05/27/2017 8:42 AM EST 25 mg Given 05/26/2017 6:02 PM EST 25 mg nitroGLYcerin 50 mg/250 mL (200 mcg/mL) infusion 1 dose, Starting on Mon05/26/17 at 1554, Until Mon05/26/17 at 1811, MAVIS FRENCH.: cabinet override Rate/Dose Change 05/26/2017 4:25 PM EST 50 mcg/min 15 mL/hr Rate/Dose Change 05/26/2017 4:22 PM EST 40 mcg/min 12 mL/h r New Bag 05/26/2017 4:07 PM EST 30 mcg/min 9 mL/hr pantoprazole (PROTONIX) tablet 40 mg 40 mg, Oral, DAILY, First dose on 05/27/17 at 0900, Until Discontinued Given 05/28/2017 9:10 AM EST 40 mg Given 05/27/2017 8:42 AM EST 40 mg PARoxetine (PAXIL) tablet 30 mg 30 mg, Oral, DAILY, First dose on 05/27/17 at 0900, Until Discontinued, Routine Given 05/28/2017 9:50 AM EST 30 mg Given 05/27/2017 8:42 AM EST 30 mg simethicone (MYLICON) chewable tablet 40 mg 40 mg, Oral, EVERY 6 HOURS PRN, Starting on 05/27/17 at 2028, Until 05/28/17 at 1545, Cramping, Routine Given 05/27/2017 8:40 PM EST 40 mg sodium chloride 0.9 % flush 5 mL 5 mL, Intravenous, 2 TIMES DAILY, First dose on Mon05/26/17 at 2100, Until Discontinued, Routine Given 05/28/2017 9:11 AM EST 5 mLs Given 05/27/2017 8:47 PM EST 5 mLs Given 05/27/2017 8:48 AM EST 5 mLs sodium chloride 0.9% infusion 100 mL/hr, Intravenous, CONTINUOUS, Starting on 05/27/17 at 1615, Until 05/27/17 at 2014, Recovery (Recovery-Hospital Unit) New Bag 05/27/2017 4:00 PM EST 100 mL/hr 100 mL /hr documented in this encounter Active and Recently Administered Medications Times are shown in EST. Scheduled Medication Order 05/26/2017 05/27/2017 05/28/2017 acetaminophen (TYLENOL) tablet 650 mg 650 mg, Oral, EVERY 4 HOURS, First dose (after last modification) on Mon05/26/17 at 1800, Until Discontinued, Maximum dose of acetaminophen is 4000 mg from all sources in 24 hours., Routine 1804 (Given - Provider: Mavis French RN)2204 (Given - Provider: Amber Olsen RN) 0238 (Given - Provider: Amber Olsen RN)0628 (Given - Provider: Amber Olsen RN)1000 (Not Given - Provider: Shakira Manzano RN - Reason: Patient/family refused)1400 (Not Given - Provider: Shakira Manzano RN - Reason: Contraindicated)1505 (SEP Hold - Provider: Admin Adt - Reason: Transfer to a Procedural area)1733 (MAR Unhold - Provider: Admin Adt)1800 (Not Given - Provider: Shakira Manzano RN - Reason: Contraindicated)2202 (Given - Provider: Naz Mathias RN) 0202 (Given - Provider: Naz Mathias RN)0602 (Given - Provider: Naz Mathias RN)0910 (Given - Provider: Antonina Ty RN) atorvastatin (LIPITOR) tablet 80 mg 80 mg, Oral, EVERY EVENING, First dose on Mon05/26/17 at 1800, Until Discontinued, Routine 1804 (Given - Provider: Mavis French RN) 1505 (SEP Hold - Provider: Admin Adt - Reason: Transfer to a Procedural area)1700 (Automatically Held - Provider: Admin Adt)1733 (MAR Unhold - Provider: Admin Adt) diphenhydrAMINE/aluminum- magnesium hydroxide with simethicone/lidocaine (BMX) oral suspension (COMPLETED) 5 mL, Oral, ONCE, 1 dose, On Mon05/26/17 at 1800, Each 5 mL contains equal parts of diphenhydramine (BENADYL), aluminum-magnesium hydroxide w/ simethicone (MAALOX), and lidocaine (XYLOCAINE) , STAT 1804 (Given - Provider: Mavis French, MATEO) enoxaparin (LOVENOX) injection 40 mg 40 mg, Subcutaneous, NIGHTLY, First dose on Mon05/26/17 at 2330, Until Discontinued, Routine 0045 (Given - Provider: Amber Olsen RN)1505 (MAR Hold - Provider: Admin Adt - Reason: Transfer to a Procedural area)173 (MAR Unhold - Provider: Admin Adt)2039 (Given - Provider: Ana Laura Carson RN) insulin lispro (humaLOG) VIAL injection 1-4 Units(Linked Group 1) 1-4 Units, Subcutaneous, EVERY 4 HOURS SCHEDULED, First dose on Mon05/26/17 at 2000, Until Discontinued, CORRECTION BOLUS Sensitive to insulin lean patient or total daily dose of all insulin needed to achieve glycemic control less than 30 units BG 140 - 160 Give 1 unit BG 161 - 200 Give 2 units BG 201 - 240 Give 3 units BG greater than 240, give 4 units and recheck BG in 2 hours. If less than 240 after two hours, give no insulin and resume prior schedule. If BG remains greater than 240, repeat 4 units (no more than three times) & call for new basal insulin orders. DO NOT hold if NPO, unless specifically told to do so., Routine 2036 (Given - Provider: Amber Olsen RN) 0000 (Not Given - Provider: Amber Olsen RN - Reason: Order parameters not met)0404 (Given - Provider: Amber Olsen RN)0840 (Given - Provider: Shakira Manzano, MATEO)1200 (Not Given - Provider: Shakira M Mattsson, RN - Reason: Contraindicated)1505 (SEP Hold - Provider: Admin Adt - Reason: Transfer to a Procedural area)1600 (Automatically Held - Provider: Admin Adt)1733 (SEP Unhold - Provider: Admin Adt)2041 (Given - Provider: Ana Laura Carson RN) 0008 (Given - Provider: Naz Mathias, RN)0415 (Given - Provider: Naz Mathias, RN)0800 (Given - Provider: Antonina Ty, MATEO)1154 (Given - Provider: Antonina Ty RN) lisinopril (PRINIVIL;ZESTRIL) tablet 2.5 mg 2.5 mg, Oral, DAILY, First dose on Mon05/26/17 at 1800, Until Discontinued, Routine 1800 (Hold - Provider: Amber Olsen RN - Reason: Medication not available) 0842 (Given - Provider: Shakira Manzano RN)1505 (SEP Hold - Provider: Admin Adt - Reason: Transfer to a Procedural area)1733 (SEP Unhold - Provider: Admin Adt) 0911 (Given - Provider: Antonina Ty RN) meTOPROLOL succinate (TOPROL-XL) XL tablet 25 mg 25 mg, Oral, DAILY, First dose on Mon05/26/17 at 1800, Until Discontinued, DO NOT CRUSH OR OPEN Hold for HR < 55 or SBP < 100, Routine 1802 (Given - Provider: Mavis French RN) 0842 (Given - Provider: Shakira Manzano, MATEO)1505 (SEP Hold - Provider: Admin Adt - Reason: Transfer to a Procedural area)1733 (SEP Unhold - Provider: Admin Adt) 0911 (Given - Provider: Antonina Ty RN) pantoprazole (PROTONIX) tablet 40 mg 40 mg, Oral, DAILY, First dose on 05/27/17 at 0900, Until Discontinued 0842 (Given - Provider: Shakira Manzano RN)1505 (SEP Hold - Provider: Admin Adt - Reason: Transfer to a Procedural area)1733 (SEP Unhold - Provider: Admin Adt) 0910 (Given - Provider: Antonina Ty RN) PARoxetine (PAXIL) tablet 30 mg 30 mg, Oral, DAILY, First dose on Sat /18/17 at 0900, Until Discontinued, Routine 0842 (Given - Provider: Shakira Manzano, RN)1505 (SEP Hold - Provider: Admin Adt - Reason: Transfer to a Procedural area)1733 (SEP Unhold - Provider: Admin Adt) 0950 (Given - Provider: Antonina Ty, RN) sodium chloride 0.9 % flush 5 mL 5 mL, Intravenous, 2 TIMES DAILY, First dose on Mon05/26/17 at 2100, Until Discontinued, Routine 2037 (Given - Provider: Amber Olsen RN) 0848 (Given - Provider: Shakira Manzano, MATEO)1505 (SEP Hold - Provider: Admin Adt - Reason: Transfer to a Procedural area)1733 (SEP Unhold - Provider: Admin Adt)2046 (Given - Provider: Ana Laura Carson RN) 0911 (Given - Provider: Antonina Ty, MATEO) Continuous Medication Order 05/26/2017 05/27/2017 05/28/2017 heparin 25,000 units in dextrose 5% 500 mL infusion (CANCELED)(Linked Group 2) 0-5,000 Units/hr (0-100 mL/hr), Intravenous, CONTINUOUS, Starting on Mon05/26/17 at 1800, Until Mon05/26/17 at 2311, BEGIN infusion at 1,000 units per hr (12 units/kg/hr). MAX INITIAL infusion rate is 1,000 units/hr. Target PTT = 80 - 114 seconds Start adjustment schedule 6 hours after starting infusion. If PTT is: - less than 60 seconds, Administer PRN bolus and increase rate by 450 units per hr (4 units/kg/hr) - 60 - 79 seconds, Administer PRN bolus and increase rate by 250 units per hr (2 units/kg/hr) - 80 - 114 seconds, No Change - 115 - 129 seconds, decrease rate by 100 units per hr (1 units/kg/hr) - 130 - 145 seconds, stop infusion for 30 minutes, then decrease rate by 250 units per hr (2 units/kg/hr) - Greater than 145 seconds, stop infusion for 60 minutes, then decrease rate by 350 units per hour (3 units/kg/hr) Repeat aPTT 6 hours after initiating heparin. Then 6 hours after each dose adjustment. When 2 consecutive aPTT within target range of 80 - 114 seconds, change aPTT to once every 24 hours with A.M. labs while on heparin. RN to order required aPTT - Per Protocol, Routine, Indication: ACS (STEMI vs NSTEMI vs UA) 1607 (New Bag - Provider: Mavis French RN - Comment: Continued from OSH)1810 (Rate/Dose Verify - Provider: Mavis French RN - Comment: Ok to keep gtt at 1250 from OSH per MD Ding)2243 (Rate/Dose Change - Provider: Amber Olsen RN)2300 (Stopped - Provider: Amber Olsen RN) sodium chloride 0.9% infusion () 100 mL/hr, Intravenous, CONTINUOUS, Starting on 05/27/17 at 1615, Until 05/27/17 at 2014, Recovery (Recovery-Hospital Unit) 1600 (New Bag - Provider: Cari Rehman RN) PRN Medication Order 05/26/2017 05/27/2017 05/28/2017 calcium carbonate (TUMS) chewable tablet 500-1,000 mg 500-1,000 mg, Oral, EVERY 4 HOURS PRN, Starting on 05/27/17 at 2028, Until 05/28/17 at 1545, Heartburn, Give 500 mg (1 tablet) for mild to moderate heartburn. Give 1,000 mg (2 tablets) for severe heartburn., Routine 2039 (Given - Provider: Ana Laura Carson RN) dextrose 50% IV syringe 25-50 mL(Linked Group 3) 25-50 mL (12.5-25 g), Intravenous, EVERY 1 HOUR PRN, Starting on 05/26/17 at 1737, Until 05/28/17 at 1545, Low blood sugar, For BG 50-70: 120 mL Juice or Regular (not diet) soda OR 12.5 gram (25 mL) Dextrose 50% IV OR, if no IV access, 1 mg Glucagon IM. Recheck BG in 30 minutes. May repeat juice, dextrose or glucagon once per episode For BG less than 50: 240 mL Juice or Regular (not diet) soda OR 25 grams (50 mL) Dextrose 50% IV OR, if no IV access, 1 mg Glucagon IM. Recheck BG in 30 minutes. May repeat juice, dextrose, or glucagon once per episode. To avoid extravasation, push Dextrose 50% SLOWLY (3 mL over 1 minute) in a patent, running IV, preferably a central line. For persistent hypoglycemia, consider longer-acting treatment for the duration of the active insulin., Routine 1505 ([facility] Hold - Provider: Admin Adt - Reason: Transfer to a Procedural area)1733 ([facility] Unhold - Provider: Admin Adt) fentaNYL 50 mcg/mL multi-dose injection (CANCELED) ONCE PRN, Starting on 05/27/17 at 1503, Until 05/27/17 at 1538, Intra-Operative (Intra-Procedure), Routine 1503 (Given - Provider: Suzy Yates RN)1508 (Given - Provider: Suzy Yates RN) glucagon (human recombinant) injection SolR 1 mg(Linked Group 3) 1 mg, Intramuscular, EVERY 1 HOUR PRN, Starting on Mon05/26/17 at 1737, Until Mon05/28/17 at 1545, Low blood sugar, For BG 50-70: 120 mL Juice or Regular (not diet) soda OR 12.5 gram (25 mL) Dextrose 50% IV OR, if no IV access, 1 mg Glucagon IM. Recheck BG in 30 minutes. May repeat juice, dextrose or glucagon once per episode For BG less than 50: 240 mL Juice or Regular (not diet) soda OR 25 grams (50 mL) Dextrose 50% IV OR, if no IV access, 1 mg Glucagon IM. Recheck BG in 30 minutes. May repeat juice, dextrose, or glucagon once per episode. To avoid extravasation, push Dextrose 50% SLOWLY (3 mL over 1 minute) in a patent, running IV, preferably a central line. For persistent hypoglycemia, consider longer-acting treatment for the duration of the active insulin., Routine 1505 ([facility] Hold - Provider: Admin Adt - Reason: Transfer to a Procedural area)1733 ([facility] Unhold - Provider: Admin Adt) heparin (porcine) injection 0-4,000 Units (CANCELED)(Linked Group 2) 0-4,000 Units, Intravenous, BOLUS PER HEPARIN PROTOCOL, Starting on Mon05/26/17 at 1737, Until Mon05/26/17 at 2311, Per Protocol, START ADJUSTMENT SCHEDULE 6 HOURS AFTER STARTING INFUSION aPTT Between 60 - 79 seconds: Bolus 2,000 units aPTT Less than 60 seconds: Bolus 4,000 units Increase infusion and recheck aPTT in 6 hours. , Routine 2240 (Given - Provider: Amber Olsen RN) heparin (porcine) injection (CANCELED) ONCE PRN, Starting on 05/27/17 at 1518, Until 05/27/17 at 1538, Cath (Intra-Procedure), Routine 1518 (Given - Provider: Suzy Yates RN) iohexol (OMNIPAQUE) 350 mg/mL solution (CANCELED) ONCE PRN, Starting on 05/27/17 at 1534, Until 05/27/17 at 1538, Cath (Intra-Procedure), Routine 1534 (Given - Provider: Saran Green MD) lidocaine (XYLOCAINE) 10 mg/mL (1 %) injection 3 mg 3 mg (0.3 mL), Subcutaneous, ONCE PRN, 1 dose, Starting on Mon05/26/17 at 1737, Until 05/28/17 at 1545, for discomfort with PIV insertion, Routine 1505 ([facility] Hold - Provider: Admin Adt - Reason: Transfer to a Procedural area)1733 ([facility] Unhold - Provider: Admin Adt) midazolam (PF) (VERSED) 1 mg/mL multi-dose injection (CANCELED) ONCE PRN, Starting on 05/27/17 at 1503, Until 05/27/17 at 1538, Cath (Intra-Procedure), Routine 1503 (Given - Provider: Suzy Yates RN)1508 (Given - Provider: Suzy Yates RN) nitroGLYcerin (NITROSTAT) SL tablet 0.4 mg 0.4 mg, Sublingual, EVERY 5 MIN PRN, Starting on Mon05/26/17 at 1737, Until 05/28/17 at 1545, Chest pain, May repeat every 5 minutes for a total of three doses. Notify provider if chest pain not relieved with nitroglycerin. Do not administer nitroglycerin if the patinet has received or taken phosphodiesterase (PDE-5) inhibitors such as sildenafil, tadalafil or vardenafil within the last 24 to 72 hours., Routine 1505 ([facility] Hold - Provider: Admin Adt - Reason: Transfer to a Procedural area)1733 ([facility] Unhold - Provider: Admin Adt) nitroGLYcerin 100 mcg/mL intracoronary dilution (CANCELED) ONCE PRN, Starting on 05/27/17 at 1517, Until 05/27/17 at 1538, Cath (Intra-Procedure), Routine 1517 (Given - Provider: Scott Santoro MD)1526 (Given - Provider: Scott Santoro MD) simethicone (MYLICON) chewable tablet 40 mg 40 mg, Oral, EVERY 6 HOURS PRN, Starting on 05/27/17 at 2028, Until 05/28/17 at 1545, Cramping, Routine 204 (Given - Provider: Ana Laura Carson RN) sodium chloride 0.9 % flush 5-20 mL 5-20 mL, Intravenous, EVERY 1 MIN PRN, Starting on 05/26/17 at 1737, Until 05/28/17 at 1545, flush, Flush pertains to all indwelling lines. Flush per protocol found in the job aid using the link provided on this medication record., Routine 1505 ([facility] Hold - Provider: Admin Adt - Reason: Transfer to a Procedural area)1733 ([facility] Unhold - Provider: Admin Adt) verapamil (ISOPTIN) injection (CANCELED) ONCE PRN, Starting on 05/27/17 at 1516, Until 05/27/17 at 1538, Administer over 2 Minutes, Cath (Intra-Procedure) 1516 (Given - Provider: Scott Santoro MD) No Frequency Medication Order 05/26/2017 05/27/2017 05/28/2017 nitroGLYcerin 50 mg/250 mL (200 mcg/mL) infusion (COMPLETED) 1 dose, Starting on Mon05/26/17 at 1554, Until 05/26/17 at 1811, MAVIS FRENCH.: cabinet override 1607 (New Bag - Provider: Mavis French RN - Comment: Continued from OSH)1622 (Rate/Dose Change - Provider: Mavis French RN - Comment: Ok per MD Ding)1625 (Rate/Dose Change - Provider: Mavis French RN)1811 (Stopped - Provider: Mavis French RN - Comment: Ok to stop not wean per MD Ding) Linked Groups Order Group 1: POCT Fingerstick Glucose (CANCELED) Routine, EVERY 4 HOURS, First occurrence on Mon05/26/17 at 1999, Until Specified, Consider choosing EVERY 4 HOURS as frequency for: - Type 1 Diabetes - At least 24 hours after coming off an insulin drip - At least 24 hours after admission for DKA - Hypoglycemia unawareness - Patients who are otherwise unstable Select the same frequency for the correction bolus insulin order And insulin lispro (humaLOG) VIAL injection 1-4 UnitsJump to med 1-4 Units, Subcutaneous, EVERY 4 HOURS SCHEDULED, First dose on Mon05/26/17 at 1999, Until Discontinued, CORRECTION BOLUS Sensitive to insulin lean patient or total daily dose of all insulin needed to achieve glycemic control less than 30 units BG 140 - 160 Give 1 unit BG 161 - 200 Give 2 units BG 201 - 240 Give 3 units BG greater than 240, give 4 units and recheck BG in 2 hours. If less than 240 after two hours, give no insulin and resume prior schedule. If BG remains greater than 240, repeat 4 units (no more than three times) & call for new basal insulin orders. DO NOT hold if NPO, unless specifically told to do so., Routine Group 2: heparin (porcine) injection 0-4,000 Units (CANCELED)Jump to med 0-4,000 Units, Intravenous, BOLUS PER HEPARIN PROTOCOL, Starting on Mon05/26/17 at 1737, Until Mon05/26/17 at 2311, Per Protocol, START ADJUSTMENT SCHEDULE 6 HOURS AFTER STARTING INFUSION aPTT Between 60 - 79 seconds: Bolus 2,000 units aPTT Less than 60 seconds: Bolus 4,000 units Increase infusion and recheck aPTT in 6 hours. , Routine And heparin 25,000 units in dextrose 5% 500 mL infusion (CANCELED)Jump to med 0-5,000 Units/hr (0-100 mL/hr), Intravenous, CONTINUOUS, Starting on Mon05/26/17 at 1800, Until Mon05/26/17 at 2311, BEGIN infusion at 1,000 units per hr (12 units/kg/hr). MAX INITIAL infusion rate is 1,000 units/hr. Target PTT = 80 - 114 seconds Start adjustment schedule 6 hours after starting infusion. If PTT is: - less than 60 seconds, Administer PRN bolus and increase rate by 450 units per hr (4 units/kg/hr) - 60 - 79 seconds, Administer PRN bolus and increase rate by 250 units per hr (2 units/kg/hr) - 80 - 114 seconds, No Change - 115 - 129 seconds, decrease rate by 100 units per hr (1 units/kg/hr) - 130 - 145 seconds, stop infusion for 30 minutes, then decrease rate by 250 units per hr (2 units/kg/hr) - Greater than 145 seconds, stop infusion for 60 minutes, then decrease rate by 350 units per hour (3 units/kg/hr) Repeat aPTT 6 hours after initiating heparin. Then 6 hours after each dose adjustment. When 2 consecutive aPTT within target range of 80 - 114 seconds, change aPTT to once every 24 hours with A.M. labs while on heparin. RN to order required aPTT - Per Protocol, Routine, Indication: ACS (STEMI vs NSTEMI vs UA) Group 3: dextrose 50% IV syringe 25-50 mLJump to med 25-50 mL (12.5-25 g), Intravenous, EVERY 1 HOUR PRN, Starting on Mon05/26/17 at 1737, Until Mon05/28/17 at 1545, Low blood sugar, For BG 50-70: 120 mL Juice or Regular (not diet) soda OR 12.5 gram (25 mL) Dextrose 50% IV OR, if no IV access, 1 mg Glucagon IM. Recheck BG in 30 minutes. May repeat juice, dextrose or glucagon once per episode For BG less than 50: 240 mL Juice or Regular (not diet) soda OR 25 grams (50 mL) Dextrose 50% IV OR, if no IV access, 1 mg Glucagon IM. Recheck BG in 30 minutes. May repeat juice, dextrose, or glucagon once per episode. To avoid extravasation, push Dextrose 50% SLOWLY (3 mL over 1 minute) in a patent, running IV, preferably a central line. For persistent hypoglycemia, consider longer-acting treatment for the duration of the active insulin., Routine Or glucagon (human recombinant) injection SolR 1 mgJump to med 1 mg, Intramuscular, EVERY 1 HOUR PRN, Starting on Mon05/26/17 at 1737, Until 05/28/17 at 1545, Low blood sugar, For BG 50-70: 120 mL Juice or Regular (not diet) soda OR 12.5 gram (25 mL) Dextrose 50% IV OR, if no IV access, 1 mg Glucagon IM. Recheck BG in 30 minutes. May repeat juice, dextrose or glucagon once per episode For BG less than 50: 240 mL Juice or Regular (not diet) soda OR 25 grams (50 mL) Dextrose 50% IV OR, if no IV access, 1 mg Glucagon IM. Recheck BG in 30 minutes. May repeat juice, dextrose, or glucagon once per episode. To avoid extravasation, push Dextrose 50% SLOWLY (3 mL over 1 minute) in a patent, running IV, preferably a central line. For persistent hypoglycemia, consider longer-acting treatment for the duration of the active insulin., Routine documented in this encounter Care Teams Manager Mechanical Maintenance Relationship Specialty Start Date End Date Yung Horn MD [address] [place] [address] PCP - General 11/22/16 documented as of this encounter
--- OUTSIDE RECORDS SUMMARY | 2024-01-19 15:14 | XMS_ITS | Encounter Summary ---
Author Organization [facility] [place] [address] Care Team Providers Care Erp Pm Name Role Phone Yung Horn MD Primary Care Provider [phone] Encounter Details Date Type Department Care Team (Late st Contact Info) Description 06/13/2017 Orders Only [place] [phone] Tyson Cramer PA [facility] [place] [address] Social History Tobacco Use Types Packs/Day Years [...] EDT Telephone Pre Admission Testing at [address] [phone] 02/07/2024 11:20 AM EDT [place] [address] Manoj Vinson MD [facility] [place] [address] 02/08/2024 8:30 AM EDT Hospital Encounter PACU at [address] [phone] Manoj Vinson MD [facility] [place] [address] 02/08/2024 8:30 AM EDT - 02/08/2024 11:00 AM EDT Surgery Main OR at [address] [address] Manoj Vinson MD [facility] [place] [address] ADJ.TISSUE TRANSFER, REARRANGEMENT, 10.1 TO 30 SQ.CM, GENITALIA (WRVU 10.83) Scheduled Procedures Name Priority Associated Diagnoses Date/Ti me ADJ.TISSUE TRANSFER, REARRANGEMENT, 10.1 TO 30 SQ.CM, GENITALIA (WRVU 10.83) Acquired buried penis 02/08/2024 8:30 AM EDT documented as of this encounter Visit Diagnoses Not on filedocumented in this encounter Care Teams Erp Pm Relationship Specialty Start Date End Date Yung Horn MD [address] [place] [address] [place] [address] PCP - General 11/22/16 documented as of this encounter
--- OUTSIDE RECORDS SUMMARY | 2024-01-19 15:14 | XMS_ITS | Encounter Summary ---
Author Organization [facility] [place] [address] Care Team Providers Care Tin Cutter Name Role Phone Yung Horn MD Primary Care Provider [phone] Reason for Visit * Auth/Cert Specialty Diagnoses / Procedures Referred By Contac t Referred To Contact Diagnoses Chest pain CHEST PAIN NSTEMI Procedures CARDIAC CATHETERIZATION Referral ID Status Reason Start Date Expiration Date Visits Re quested Visits Authorized [id number] 1 1 Encounter Details Date Type Department Care Team (Latest Contact Info) Description 05/25/2017 - 05/25/2017 11:59 PM EST Hospital Encounter [place] [phone] Puneet Vines MD [facility] [place] [address] Discharge Disposition: Home Social History Tobacco Use [...] by mouth 2 times daily (with meals). atorvastatin (LIPITOR) 80 mg Tablet take 1 tablet by mouth at bedtime 0 05/09/2017 05/28/2017 metFORMIN (GLUCOPHAGE) 1,000 mg Tablet 0 03/31/2017 05/26/2017 meTOPROLOL succinate (TOPROL-XL) 25 mg Tablet Sustained Release 24 hr take 1 tablet by mouth once daily 0 05/09/2017 12/25/2019 venlafaxine (EFFEXOR-XR) 150 mg Capsule, Sust. Release 24 hr take 1 capsule by mouth once daily 0 01/20/2017 05/26/2017 citalopram (CELEXA) 40 mg Tablet Take 40 mg by mouth daily. 05/28/2017 PARoxetine (PAXIL) 30 mg TabletIndications:anxie ty with [...] Take 40 mg by mouth daily. 12/17/2018 ibuprofen (ADVIL;MOTRIN) 800 mg Tablet Take 800 mg by mouth as needed for Pain. 05/28/2017 documented as of this encounter Plan of Treatment Upcoming Encounters Date Type Department Care Team (Latest Contact Info) Description 02/01/2024 11:15 AM EDT Telephone Pre Admission Testing at [address] [phone] 02/07/2024 11:20 AM EDT [place] [address] Manoj Vinson MD [facility] [place] [address] 02/08/2024 8:30 AM EDT Hospital Encounter PACU at [address] [phone] Manoj Vinson MD [facility] [place] [address] 02/08/2024 8:30 AM EDT - 02/08/2024 11:00 AM EDT Surgery Main OR at [address] [phone] Manoj Vinson MD [facility] [place] [address] ADJ.TISSUE TRANSFER, REARRANGEMENT, 10.1 TO 30 SQ.CM, GENITALIA (WRVU 10.83) Scheduled Procedures Name Priority Associated Diagnoses Date/Ti me ADJ.TISSUE TRANSFER, REARRANGEMENT, 10.1 TO 30 SQ.CM, GENITALIA (WRVU 10.83) Acquired buried penis 02/08/2024 8:30 AM EDT documented as of this encounter Procedures Procedure Name Priority Date/Time Associated Diagnosis Comments FILM LIBRARY STORAGE ONLY DX CHEST Routine 05/25/2017 12:00 AM EST documented in this encounter Results * Film Library- Storage Only DX Chest (05/25/2017 12:00 AM EST) Narrative RAD - 05/26/2017 2:59 PM EST This exam is for storage only and is auto-finalizing. Puneet Vines MD IMG FILM LIBRARY ORD ERABLES [place], [place] documented in this encounter Visit Diagnoses Not on filedocumented in this encounter Care Teams Tin Cutter Relationship Specialty Start Date End Date Yung Horn MD [address] [place] [address] PCP - General 11/22/16 documented as of this encounter
--- OUTSIDE RECORDS SUMMARY | 2024-01-19 15:14 | XMS_ITS | Encounter Summary ---
Author Organization [facility] [place] [address] Care Team Providers Care Flour Mixer Helper Name Role Phone Yung Horn MD Primary Care Provider [phone] Reason for Visit * Reason Comments Shortness of Breath Chest Pain Encounter Details Date Type Department Care Team (Late st Contact Info) Description 06/12/2017 1:44 PM EST - 06/12/2017 4:53 PM [place] [address] Lasha Lopez MD [facility] [place] [address] SOB (shortness of breath); Other chest pain; Gastroesophageal reflux disease, esophagitis presence not specified; Diabetes mellitus without complication; Bariatric surgery status; Postsurgical percutaneous transluminal coronary angioplasty status Discharge Disposition: Home Social History Tobacco Use [...] Sign Reading Time Taken Comments Blood Pressure 127/67 06/12/2017 4:00 PM EST Pulse 80 06/12/2017 4:30 PM EST Temperature 36.7 ??C (98.1 ??F) 06/12/2017 4:30 PM ES T Respiratory Rate 14 06/12/2017 4:30 PM EST Oxygen Saturation 97% 06/12/2017 4:30 PM EST Inhaled Oxygen Concentration - - Weight 113.4 kg (250 lb) 06/12/2017 1:35 PM EST Height - - Body Mass Index 34.87 05/26/2017 3:48 PM EST documented in this encounter Discharge Instructions * Discharge Instructions* Roosevelt Maciel MD - 06/12/2017 4:33 PM EST Images from the original note were not included. You have follow up with GI scheduled. Please return if your symptoms worsen or if you have any other concerns. Shortness of Breath: Care Instructions Your Care Instructions Shortness of breath has many causes. Sometimes conditions such as anxiety can lead to shortness of breath. Some people get mild shortness of breath when they exercise. Trouble breathing also can be asymptom of a serious problem, such as asthma, lung disease, emphysema, heart problems, and pneumonia. If your shortness of breath continues, you may need tests and treatment. Watch for any changes in your breathing and other symptoms. Follow-up care is a do part of your treatment and safety. Be sure to make and go to all appointments, and call your doctor if you are having problems. It's also a good idea to know your test resultsand keep a list of the medicines you take. How can you care for yourself at home? ?? Do not smoke or allow others to smoke around you. If you need help quitting, talk to your doctorabout stop-smoking programs and medicines. These can increase your chances of quitting for good. ?? Get plenty of rest and sleep. ?? Take your medicines exactly as prescribed. Call your doctor if you think you are having a problem with your medicine. ?? Find healthy ways to deal with stress. ?? Exercise daily. ?? Get plenty of sleep. ?? Eat regularly and well. When should you call for help? Call 911 anytime you think you may need emergency care. For example, call if: ? ?? You have severe shortness of breath. ? ?? You have symptoms of a heart attack. These may include: ?? Chest pain or pressure, or a strange feeling in the chest. ?? Sweating. ?? Shortness of breath. ?? Nausea or vomiting. ?? Pain, pressure, or a strange feeling in the back, neck, jaw, or upper belly or in one or both shoulders or arms. ?? Lightheadedness or sudden weakness. ?? A fast or irregular heartbeat. After you call 911, the tank farm operator may tell you to chew 1 adult-strength or 2 to 4 low-dose aspirin. Wait for an ambulance. Do not try to drive yourself. ?Call your doctor now or seek immediate medical care if: ? ?? Your shortness of breath gets worse or you start to wheeze. Wheezing is a high-pitched sound when you breathe. ? ?? You wake up at night out of breath or have to prop your head up on several pillows to breathe. ? ?? You are short of breath after only light activity or while at rest. ?Watch closely for changes in your health, and be sure to contact your doctor if: ? ?? You do not get better over the next 1 to 2 days. Where can you learn more? Visit our [employer] information library at [email or web address]. You can also view health information on [employer], your personal patient account. Log in or sign uptoday. Enter S780 in the search box to learn more about Shortness of Breath: Care Instructions. Current as of: November 18, 2016 Content Version: 11.4 ?? [id number] [employer]. Care instructions adapted under license by [facility]. If you have questions about a medical condition or this instruction, always ask your healthcare professional. [employer] disclaims any warranty or liability for your use of this information. documented in this encounter Medications at Time [...] daily. 12/17/2018 documented as of this encounter ED Notes * Stanton Parekh RN - 06/12/2017 4:25 PM EST Melanie matteo provided to Pt. Dr. Lopez at the bed side * Stanton Parekh RN - 06/12/2017 2:40 PM EST Pt to and back from katherine Muniz 11/16. Pt's at the bed side * Roosevelt Maciel MD - 06/12/2017 2:01 PM EST HPI Yung Betancur is a 61 y.o. male with a PMHx of GERD, HLD, HTN, ??DM2, and gastric bypass (2009), with recent unremarkable cardiac cath on 05/27 who presents to the Emergency Department with persistent SOB/LINTON and chest pressure. States it is the same symptomatology he has had for months, came in today because of acute worsening today and 5 days ago. Also endorses nausea, chills, fatigue, and generalized weakness, and he reports vomiting last night. Denies other assoc sx such as fevers, headache, lightheadedness, confusion, vision changes, new cough, sore throat, palpitations, abd pain, d/c, dysuria, hematuria, myalgias/arthralgias, bleeding/bruises/rashes, or n/t/w in his extremities. Of note, back in November he had a normal echo, stress test, 2 CTs negative for PE, and normal PFTs. Given hishx of GERD, there is concern his symptoms are due to esophageal spasms. PCP also recently prescribed Ativan due to concern for an anxiety component. Review of Systems: Pertinent positive and negative ROS discussed in HPI, a total of 10 systems were reviewed with no other significant positives. Physical Exam: Patient Vitals for the past 24 hrs: BP Temp Temp src Pulse Resp SpO2 Weight 06/12/17 1630 - 36.7 ??C (98.1 ??F) Oral 80 14 97 % - 06/12/17 1600 127/67 - - 76 15 93 % - 06/12/17 1500 127/72 - - 76 12 94 % - 06/12/17 1430 132/71 - - 95 20 95 % - 06/12/17 1335 141/79 37.1 ??C (98.8 ??F) Oral 79 20 99 % (!) 113.4 kg (250 lb) Physical Exam Constitutional: He is oriented to person, place, and time. He appears well- developed and well-nourished. No distress. HENT: Head: Normocephalic and atraumatic. Right Ear: External ear normal. Left Ear: External ear normal. Nose: Nose normal. Mouth/Throat: Oropharynx is clear and moist. Eyes: Conjunctivae are normal. Right eye exhibits no discharge. Left eye exhibits no discharge. Neck: Normal range of motion. Neck supple. Cardiovascular: Normal rate. Pulmonary/Chest: Effort normal and breath sounds normal. No respiratory distress. He has no wheezes. He has no rales. He exhibits no tenderness. Abdominal: Soft. He exhibits no distension. There is no tenderness. There is no rebound and no guarding. Musculoskeletal: Normal range of motion. He exhibits no edema, tenderness or deformity. Neurological: He is alert and oriented to person, place, and time. Skin: Skin is warm and dry. No rash noted. He is not diaphoretic. No erythema. No pallor. Psychiatric: He has a normal mood and affect. Nursing note and vitals reviewed. ED Course: - Patient was evaluated and discussed with Dr. Lopez - Medications, allergies and past medical history reviewed - I reviewed the EKG: NSR, no acute ischemic changes - I reviewed the x-ray images: Probable pulmonary vascular congestion. - I reviewed the labwork, detailed below. Recent Results (from the past 24 hour(s)) Blue Tube HOLD Result Value Ref Range Blue Hold Sample in lab. Troponin T Result Value Ref Range Troponin-T <0.01 0.00 - 0.00 ng/mL Basic Metabolic Panel (non-fasting) Result Value Ref Range Glucose Lvl 111 65 - 199 mg/dL BUN 23 (H) 10 - 20 mg/dL Creatinine 1.06 0.80 - 1.50 mg/dL Sodium 140 135 - 145 mmol/L Potassium 5.1 (H) 3.5 - 5.0 mmol/L Chloride 102 98 - 107 mmol/L CO2 24 22 - 31 mmol/L Anion Gap 14 5 - 15 mmol/L Calcium 8.7 8.5 - 10.5 mg/dL Estimated GFR >60 >=60 Hemogram Result Value Ref Range WBC 7.0 4.0 - 9.5 x10(3)/mcL RBC 4.94 4.58 - 5.54 x10(6)/mcL Hemoglobin 12.9 (L) 13.7 - 16.5 gm/dL Hematocrit 39.6 (L) 40.5 - 48.5 % MCV 80.2 (L) 82.9 - 93.1 fL MCH 26.1 (L) 27.5 - 32.1 pg MCHC 32.6 32.0 - 35.7 gm/dL Platelets 176 145 - 357 x10(3)/mcL RDWSD 40.3 36.0 - 45.0 fL RDWCV 13.8 11.4 - 13.8 % MPV 10.4 7.6 - 12.9 fL nRBC % Auto 0.0 % nRBC Abs Auto 0.000 0.000 - 0.000 x10(3)/mcL Differential, Automated Result Value Ref Range Neutrophils % 87.0 % Neutr Abs (ANC) 6.11 (H) 1.70 - 6.10 x10(3)/mcL Lymphocytes % 5.7 % Lymphocytes Abs 0.4 (L) 0.9 - 3.2 x10(3)/mcL Monocytes % 4.6 % Monocyte Abs 0.3 0.3 - 0.9 x10(3)/mcL Eosinophils % 2.3 % Eosinophils Abs 0.2 0.0 - 0.4 x10(3)/mcL Basophils % 0.1 % Basophils Abs 0.0 0.0 - 0.1 x10(3)/mcL Immature Gran % 0.30 % Shana Gran Abs 0.02 0.00 - 0.04 x10(3)/mcL Gold Tube HOLD Result Value Ref Range Gold Hold Sample in lab. D-Dimer, Quantitative Result Value Ref Range D-Dimer, Quant 829 (H) 0 - 500 FEU ng/ml pro-Brain Natriuretic Peptide Result Value Ref Range ProBNP 72 <=125 pg/mL - I reassessed the patient throughout their stay: Resting comfortably in bed with no acute complaints. Given his elevated d-dimer, we offered obtaining a CT Chest to rule out PE. The risks and benefits were discussed, and patient declined at this time, preferring to go home. Deemed to have capacityto do so. As patient has had multiple recent CT scans to r/o PE with only a slightly elevated d-dimer, and our low suspicion for PE, I felt this was okay. Assessment and Plan: Assessment: 61 y.o. male with persistent SOB/LINTON and chest pressure. Given his recent unremarkable cath and unremarkable EKG and trop today, my suspicion for cardiac ischemia is low. I also considered PE, has a slightly elevated d-dimer, however as discussed above patient declined a CT chest at this time. CXR shows possible pulmonary vascular congestion, however no other signs of fluid overload, and his proBNP is wnl. CXR shows no e/o PTX or AD, and hx and benign clinical presentation inconsistent with other acute CP/SOB etiologies such as pericarditis, cardiac tamponade, or esophageal rupture. Has GI follow up scheduled this month to further assess a possible esophageal etiology. HD stable and in NAD throughout the ED stay. Plan: - GI follow up planned this month - Follow up with PCP - Return precautions were verbally discussed with the patient and written in the discharge instructions. The patient expressed understanding that they could come back to the ED at any time and agreedto the follow-up plan. Roosevelt Maciel MD Resident 06/12/17 1821 Associated attestation - Lasha Lopez MD - 06/12/2017 7:23 PM EST ATTENDING PHYSICIAN I have seen the patient and reviewed the resident's documentation and I agree with the details as written. The assessment and plan were formulated in discussion with me and I agree with them as documented. I also performed my own history and physical examination. Medical decision making in this note is my own. Has undergone an extensive cardiovascular and pulmonary workup and been referred to gastroenterology. Here today because he is hoping to get his GI appointment moved up. All symptoms are old. Physical exam is also reassuring no acute or emergent findings. documented in this encounter Plan of Treatment Upcoming Encounters Date Type Department Care Team (Latest Contact Info) Description 02/01/2024 11:15 AM EDT Telephone Pre Admission Testing at [address] [address] 02/07/2024 11:20 AM EDT [place] [address] Manoj Vinson MD [facility] [place] [address] 02/08/2024 8:30 AM EDT Hospital Encounter PACU at [address] [address] Manoj Vinson MD [facility] [place] [address] 02/08/2024 8:30 AM EDT - 02/08/2024 11:00 AM EDT Surgery Main OR at [address] [address] Manoj Vinson MD [facility] [place] [address] ADJ.TISSUE TRANSFER, REARRANGEMENT, 10.1 TO 30 SQ.CM, GENITALIA (WRVU 10.83) Scheduled Procedures Name Priority Associated Diagnoses Date/Ti me ADJ.TISSUE TRANSFER, REARRANGEMENT, 10.1 TO 30 SQ.CM, GENITALIA (WRVU 10.83) Acquired buried penis 02/08/2024 8:30 AM EDT documented as of this encounter Procedures Procedure Name Priority Date/Time Associated Diagnosis Comments XR CHEST PA AND LATERAL STAT 06/12/2017 2:40 PM EST LYME IGG & IGM ANTIBODY STAT 06/12/2017 2:00 PM EST LYME ANTIBODY CONFIRMATION BY IMMUNOBLOT STAT 06/12/2017 2:00 PM EST HEMOGRAM STAT 06/12/2017 2:00 PM EST DIFFERENTIAL, AUTOMATED STAT 06/12/2017 2:00 PM EST D-DIMER, QUANTITATIVE STAT 06/12/2017 2:00 PM EST GOLD TUBE HOLD STAT 06/12/2017 2:00 PM EST BLUE TUBE HOLD STAT 06/12/2017 2:00 PM EST CBC (WITH DIFF) STAT 06/12/2017 2:00 PM EST TROPONIN STAT 06/12/2017 2:00 PM EST PRO-BRAIN NATRIURETIC PEPTIDE STAT 06/12/2017 2:00 PM EST BASIC METABOLIC PANEL (NON-FASTING) STAT 06/12/2017 2:00 PM EST EKG 12-LEAD STAT 06/12/2017 1:45 PM EST documented in this encounter Results * XR Chest PA & Lateral (Generic) (06/12/2017 2:40 PM EST) Anatomical Region Laterality Modality Chest N/A Digital Radiogra phy Impressions 06/12/2017 4:34 PM EST Probable pulmonary vascular congestion. I have personally reviewed the image(s) and the residents interpretation and agree with the findings, Zhanna Tomlinson at 06/12/2017 4:34 PM Narrative 06/12/2017 4:34 PM EST EXAMINATION: XR CHEST PA AND LATERAL (GENERIC) CLINICAL HISTORY: SOB, chest pain, recent cardiac cath TECHNIQUE: PA and lateral views of the chest COMPARISON: Radiograph 05/25/2017 FINDINGS: The lungs appear clear. No pleural effusion or pneumothorax. Cardiomediastinal silhouette is normal. Mildly indistinct pulmonary vasculature. Velma are normal. Procedure Note Zhanna Tomlinson MD - 06/12/2017 EXAMINATION: XR CHEST PA AND LATERAL (GENERIC) CLINICAL HISTORY: SOB, chest pain, recent cardiac cath TECHNIQUE: PA and lateral views of the chest COMPARISON: Radiograph 05/25/2017 FINDINGS: The lungs appear clear. No pleural effusion or pneumothorax.Cardiomediastinal silhouette is normal. Mildly indistinct pulmonary vasculature. Velma arenormal. IMPRESSION Probable pulmonary vascular congestion. I have personally reviewed the image(s) and the residents interpretationand agree with the findings, Zhanna Tomlinson at 06/12/2017 4:34 PM Flor Morgan MD IMG DX ORDERABLES * Lyme Antibody Confirmation by Immunoblot (06/12/2017 2:00 PM EST) Lyme IgG IB Negative Negative [facility] Lyme IgG Band(s) No bands [facility] Lyme IgM IB Negative Negative [facility] Lyme IgM Band(s) No bands [facility] Lyme IB Interp Serologic response to B. burgdorferi infection is not detected. [facility] Blood specimen (specimen) No Charge / Unknown 06/12/2017 2:00 PM EST 06/13/2017 7:29 AM EST Narrative Resulting Agency Comment Spec In Lab Roosevelt Maciel MD IMMUNOLOGY ORDERABLE S Performing Organization Address [facility] Co de Phone Number [facility] [place] [address] * pro-Brain Natriuretic Peptide (06/12/2017 2:00 PM EST) [facility] ProBNP 72 <=125 pg/mL [facility] Blood specimen (specimen) Venous Draw / Unknown 06/12/2017 2:00 PM EST 06/12/2017 2:17 PM EST Narrative Resulting Agency Comment Spec In Lab Flor Morgan MD CHEMISTRY ORDERABLE S Performing Organization Address [facility] Phone Number [facility] [place] [address] * (ABNORMAL) Lyme IgG & IgM Antibody (06/12/2017 2:00 PM EST) [facility] Lyme Screening Antibody Pos(A) Neg [facility] Lyme Ab Comment Confirmation to follow. [facility] Blood specimen (specimen) No Charge / Unknown 06/12/2017 2:00 PM EST 06/13/2017 7:29 AM EST Narrative Resulting Agency Comment Spec In Lab Flor Morgan MD IMMUNOLOGY ORDERABL ES Performing Organization Address [facility] Phone Number [facility] [place] [address] * (ABNORMAL) D-Dimer, Quantitative (06/12/2017 2:00 PM EST) [facility] D-Dimer, Quant 829(H) 0 - 500 FEU ng/ml [facility] Comment: The D-Dimer assay is used to aid in the diagnosis of deep vein thrombosis and pulmonary embolism. A normal D-Dimer result (less than 500 FEU ng/ml) has a negative predictive value of approximately 95% for the exclusion of acute PE and DVT when there is low to moderate pretest probability. To use age adjusted cutoff: Age x 10ng/mL. Blood specimen (specimen) No Charge / Unknown 06/12/2017 2:00 PM EST 06/12/2017 2:09 PM EST Narrative Resulting Agency Comment Spec In Lab Flor Morgan MD HEMATOLOGY ORDERABL ES Performing Organization Address [facility] Co de Phone Number [facility] [place] [address] * Gold Tube HOLD (06/12/2017 2:00 PM EST) Gold Hold Sample in lab. [facility] Blood specimen (specimen) No Charge / Unknown 06/12/2017 2:00 PM EST 06/12/2017 2:10 PM EST Flor Morgan MD CHEMISTRY ORDERABLE S Performing Organization Address [facility] Co de Phone Number [facility] [place] [address] * (ABNORMAL) Differential, Automated (06/12/2017 2:00 PM EST) Neutrophils % 87.0 % [facility] Neutr Abs (ANC) 6.11(H) 1.70 - 6.10 x10(3)/mc L [facility] Lymphocytes % 5.7 % [facility] Lymphocytes Abs 0.4(L) 0.9 - 3.2 x10(3)/mc L [facility] Monocytes % 4.6 % [facility] Monocyte Abs 0.3 0.3 - 0.9 x10(3)/mc L [facility] Eosinophils % 2.3 % [facility] Eosinophils Abs 0.2 0.0 - 0.4 x10(3)/mc L [facility] Basophils % 0.1 % [facility] Basophils Abs 0.0 0.0 - 0.1 x10(3)/mc L [facility] Immature Gran % 0.30 % [facility] Comment: Immature granulocytes(IG's)percentage and absolute count will include metamyelocytes, myelocytes, and promyelocytes. Blood smears from CBCs yielding IG's will be scanned manually for concordance. If this scan disagrees with the automated IG or if promyelocytes are noted, a manual differential will be performed. Shana Gran Abs 0.02 0.00 - 0.04 x10(3)/ L [facility] Blood specimen (specimen) 06/12/2017 2:00 PM EST 06/12/2017 2:09 PM EST Narrative Resulting Agency Comment Spec In Lab Flor Morgan MD HEMATOLOGY ORDERABL ES [facility] [place] [address] * (ABNORMAL) Hemogram (06/12/2017 2:00 PM EST) WBC 7.0 4.0 - 9.5 x10(3)/[facility] RBC 4.94 4.58 - 5.54 x10(6)/[facility] Hemoglobin 12.9(L) 13.7 - 16.5 gm/dL [facility] Hematocrit 39.6(L) 40.5 - 48.5 % [facility] MCV 80.2(L) 82.9 - 93.1 fL [facility] MCH 26.1(L) 27.5 - 32.1 pg [facility] MCHC 32.6 32.0 - 35.7 gm/dL [facility] Platelets 176 145 - 357 x10(3)/[facility] RDWSD 40.3 36.0 - 45.0 [facility] RDWCV 13.8 11.4 - 13.8 % [facility] MPV 10.4 7.6 - 12.9 [facility] nRBC % Auto 0.0 % [facility] nRBC Abs Auto 0.000 0.000 - 0.000 x10(3)/mcL [facility] Blood specimen (specimen) 06/12/2017 2:00 PM EST 06/12/2017 2:09 PM EST Narrative Resulting Agency Comment Spec In Lab Flor Morgan MD HEMATOLOGY ORDERABL ES [facility] [place] [address] * (ABNORMAL) Basic Metabolic Panel (non-fasting) (06/12/2017 2:00 PM EST) Glucose Lvl 111 65 - 199 mg/dL [facility] Comment:Diabetes: >=200 mg/d L plus symptoms BUN 23(H) 10 - 20 mg/dL [facility] Creatinine 1.06 0.80 - 1.50 mg/dL [facility] Sodium 140 135 - 145 mmol/L [facility] Potassium 5.1(H) 3.5 - 5.0 mmol/L [facility] Comment: Please note: ??Patients with WBC >100,000 may have falsely elevated Potassium levels. ??For accurate Potassium quantification in these patients send serum separator tube (gold top) for subsequent determinations. ??Contact the Clinical Chemistry Laboratory if there are any questions. Chloride 102 98 - 107 mmol/L [facility] CO2 24 22 - 31 mmol/L [facility] Anion Gap 14 5 - 15 mmol/L [facility] Calcium 8.7 8.5 - 10.5 mg/dL [facility] Estimated GFR >60 >=60 [facility] Comment: The reported eGFR should be multiplied by 1.2 for patients. The MDRD is not an appropriate measure of renal function for patients with body mass extremes or in patients with acute kidney failure. http://HELM Boots/DHnkdep http://[employer]/DHMCnkf Blood specimen (specimen) 06/12/2017 2:00 PM EST 06/12/2017 2:09 PM EST Narrative Resulting Agency Comment Spec In Lab Flor Morgan MD CHEMISTRY ORDERABLE S Performing Organization Address City/[facility]/ZIP Co de Phone Number [facility] [address] * Troponin T (06/12/2017 2:00 PM EST) [facility] Troponin-T <0.01 0.00 - 0.00 ng/mL [facility] Comment: The 99th percentile for Troponin T is less than 0.01 ng/mL, any detectable cTnT concentration using this assay should be considered elevated. According to the third universal definition of myocardial infarction the following criteria with a clinical presentation consistent with acute myocardial ischemia meets the diagnosis for a myocardial infarction ([place]). Detection of a rise and/or fall of cTnT, with at least one value greater than the 99th percentile (> or = 0.01) and with at least one of the following ?? Symptoms of ischemia ?? New or presumed new significant VG-[id number] wave (ST-T) changes or new left bundle [...] additional sample may be indicated. Reference: Third [place] Definition of Myocardial Infarction. Journal of the [place] [employer] 2012;60:1581-98 Blood specimen (specimen) 06/12/2017 2:00 PM EST 06/12/2017 2:09 PM EST Narrative Resulting Agency Comment Spec In Lab Flor Morgan MD CHEMISTRY ORDERABLE S Performing Organization Address City/[facility]/ZIP Co de Phone Number [facility] [place] [address] * Blue Tube HOLD (06/12/2017 2:00 PM EST) Blue Hold Sample in lab. [facility] Blood specimen (specimen) 06/12/2017 2:00 PM EST 06/12/2017 2:09 PM EST Flor Morgan MD HEMATOLOGY ORDERABL ES Performing Organization Address [facility] Co de Phone Number [facility] [place] [address] * EKG 12 Lead (06/12/2017 1:45 PM EST) Ventricular rate 79 BPM MUSE SYSTEM Atrial Rate 79 BPM MUSE SYSTEM P-R Interval 162 ms MUSE SYSTEM QRS Duration 86 ms MUSE SYSTEM Q-T Interval 364 ms MUSE SYSTEM QTC Calculated (Bezet) 417 ms MUSE SYSTEM Calculated P [place] 45 degrees MUSE SYSTEM Calculated R [place] 1 degrees MUSE SYSTEM Calculated T [place] 33 degrees MUSE SYSTEM INTERPRETATION Normal sinus rhythm Normal ECG When compared with ECG of 27-MAY-2017 11:57, Vent. rate has increased BY ??31 BPM Confirmed by MD Sowmya, Scotty Goetz ([id number]) on 06/13/2017 9:06:01 AM MUSE SYSTEM 06/12/2017 1:45 PM EST 06/13/2017 9:06 AM EST Flor Morgan MD ECG ORDERABLES Performing Organization Address [facility] Co de Phone Number MUSE SYSTEM documented in this encounter Visit Diagnoses Diagnosis SOB (shortness of breath) Shortness of breath Other chest pain Gastroesophageal reflux disease, esophagitis presence not specified Diabetes mellitus without complication Type II or unspecified type diabetes mellitus without mention of complication, not stated as uncontrolled Bariatric surgery status Postsurgical percutaneous transluminal coronary angioplasty status Acquired buried penis Other specified disorder of penis documented in this encounter Care Teams Flour Mixer Helper Relationship Specialty Start Date End Date Yung Horn MD [facility] [place] [address] PCP - General 11/22/16 documented as of this encounter
--- OUTSIDE RECORDS SUMMARY | 2024-01-19 15:14 | XMS_ITS | Encounter Summary ---
[place] [address] Care Team Providers Care Help Desk Supervisor Name Role Phone Yung Horn MD Primary Care Provider [phone] Encounter Details Date Type Department Care Team (Late st Contact Info) Description 05/25/2017 Telephone Cardiology at [address] [phone] Yevgeniy Ramos MD [facility] [place] [address] Social History Tobacco Use Types Packs/Day Years [...] encounter Miscellaneous Notes * Telephone Encounter - Yevgeniy Ramos - 05/25/2017 11:39 PM EST Initial Contact Date: 05/25/2017 Initial contact time: 11:39 PM Referring Provider: Dr. Siegel Patient Location: [facility] HPI per OSH: 61 y/o man who p/w sscp radiating ot hte left arm. Initially showed up in november with similar sx's andunderwent rega nuke and tte at that time, both of which were nml. He represented one month ago withsimilar sx's. Both instances he ruled out and underwent cta (nml both times). He comes in once again with similar sx's, negative troponin and negative ecg. Pertinent Diagnostic Findings: nml ecg Trop negative OSH Interventions: ntg Asa heparin Plan: I recommended working up alternative etiologies of chest pain, however given the recurrent presentations of exertional pain and the accelerating nature (to the point where tonight it developed at rest), I agreed that the patient will likely need to end up getting a cath to evaluate for ACS (UA) in this case. We are on urgent/emergent on;ly tonight, however will check in tomorrow to accept. Yevgeniy Ramos MD 05/25/2017 11:54 PM documented in this encounter Plan of Treatment Upcoming Encounters Date Type Department Care Team (Latest Contact Info) Description 02/01/2024 11:15 AM EDT Telephone Pre Admission Testing at [address] [address] 02/07/2024 11:20 AM EDT [place] [address] Manoj Vinson MD [facility] [place] [place] [address] 02/08/2024 8:30 AM EDT Hospital Encounter PACU at [address] [address] Manoj Vinson MD [facility] [place] [address] 02/08/2024 8:30 AM EDT - 02/08/2024 11:00 AM EDT Surgery Main OR at [address] [address] Manoj Vinson MD [facility] [place] [address] ADJ.TISSUE TRANSFER, REARRANGEMENT, 10.1 TO 30 SQ.CM, GENITALIA (WRVU 10.83) Scheduled Procedures Name Priority Associated Diagnoses Date/Ti me ADJ.TISSUE TRANSFER, REARRANGEMENT, 10.1 TO 30 SQ.CM, GENITALIA (WRVU 10.83) Acquired buried penis 02/08/2024 8:30 AM EDT documented as of this encounter Visit Diagnoses Not on filedocumented in this encounter Care Teams Help Desk Supervisor Relationship Specialty Start Date End Date Yung Horn MD [address] [place] [address] PCP - General 11/22/16 documented as of this encounter
--- OUTSIDE RECORDS SUMMARY | 2024-01-19 15:14 | XMS_ITS | Encounter Summary ---
Author Organization [facility] [place] [address] Care Team Providers Care Soil Science Professor Name Role Phone Yung Horn MD Primary Care Provider [phone] Encounter Details Date Type Department Care Team (Latest Contact Info) Description 04/10/2017 12:05 AM EDT - 04/10/2017 11:59 PM EDT Hospital Encounter [place] [address] Puneet Vines MD [facility] [place] [address] Discharge Disposition: Home Social History Tobacco Use [...] by mouth 2 times daily (with meals). metFORMIN (GLUCOPHAGE) 1,000 mg Tablet 0 03/31/2017 05/26/2017 venlafaxine (EFFEXOR-XR) 150 mg Capsule, Sust. Release [...] AM EDT Telephone Pre Admission Testing at [address] [phone] 02/07/2024 11:20 AM EDT [place] [address] Manoj Vinson MD [facility] [place] [address] 02/08/2024 8:30 AM EDT Hospital Encounter PACU at [address] [address] Manoj Vinson MD [facility] [place] [address] 02/08/2024 8:30 AM EDT - 02/08/2024 11:00 AM EDT Surgery Main OR at [address] [phone] Manoj Vinson MD [facility] [place] [address] ADJ.TISSUE TRANSFER, REARRANGEMENT, 10.1 TO 30 SQ.CM, GENITALIA (WRVU 10.83) Scheduled Procedures Name Priority Associated Diagnoses Date/Ti me ADJ.TISSUE TRANSFER, REARRANGEMENT, 10.1 TO 30 SQ.CM, GENITALIA (WRVU 10.83) Acquired buried penis 02/08/2024 8:30 AM EDT documented as of this encounter Procedures Procedure Name Priority Date/Time Associated Diagnosis Comments FILM LIBRARY STORAGE ONLY DX CHEST Routine 04/10/2017 12:05 AM EDT documented in this encounter Results * Film Library- Storage Only DX Chest (04/10/2017 12:05 AM EDT) Narrative [facility] - 05/26/2017 3:01 PM EST This exam is for storage only and is auto-finalizing. Puneet Vines MD IMG FILM LIBRARY ORD ERABLES [place], [place] documented in this encounter Visit Diagnoses Not on filedocumented in this encounter Care Teams Soil Science Professor Relationship Specialty Start Date End Date Yung Horn MD [facility] [place] [address] PCP - General 11/22/16 documented as of this encounter
--- OUTSIDE RECORDS SUMMARY | 2024-01-19 15:14 | XMS_ITS | Encounter Summary ---
Author Organization [facility] Address [facility] [place] [place] [address] Care Team Providers Care Citizen Participation Specialist Name Role Phone Yung Horn MD Primary Care Provider [phone] Encounter Details Date Type Department Care Team (Late st Contact Info) Description 04/10/2017 Tele[place] [phone] Donato Hua MD [facility] [place] [address] Social History Tobacco Use Types Packs/Day Years [...] encounter Miscellaneous Notes * Telephone Encounter - Donato Hua MD - 04/10/2017 3:45 PM EDT 61-year-old male with prior history of diabetes mellitus, hypertension hyperlipidemia and prior gastric bypass. He comes in with lightheadedness that started when he was fishing yesterday. The episode is associated with chest pain radiating left arm. The episode occurred again today and in his primary care office as well he was sent from his primary care office to the emergency room. His pain gotbetter with sublingual nitro and now he is on nitro drip with resolution of chest pain. Vital signs stable no CHF or murmur on examination EKG is unremarkable, and troponin remains negative. His D-dimer is 520 Plan: If the troponin remains negative and he is off nitro drip could consider stress test in the morning. If pain is not going away and he requires IV nitro or subsequent doses of sublingual nitro or the troponin turns positive will accept him for cardiac catheterization. Emergency room physician will workup his elevated d-dimer. Donato Hua MD Laborer Demolition Pager # [phone] documented in this encounter Plan of Treatment Upcoming Encounters Date Type Department Care Team (Latest Contact Info) Description 02/01/2024 11:15 AM EDT Telephone Pre Admission Testing at [address] [address] 02/07/2024 11:20 AM EDT Office [place] [address] Manoj Vinson MD [facility] [place] [address] 02/08/2024 8:30 AM EDT Hospital Encounter PACU at [address] [address] Manoj Vinson MD [facility] [place] [address] 02/08/2024 8:30 AM EDT - 02/08/2024 11:00 AM EDT Surgery Main OR at [address] [address] Manoj Vinson MD [facility] [place] [address] ADJ.TISSUE TRANSFER, REARRANGEMENT, 10.1 TO 30 SQ.CM, GENITALIA (WRVU 10.83) Scheduled Procedures Name Priority Associated Diagnoses Date/Ti mn ADJ.TISSUE TRANSFER, REARRANGEMENT, 10.1 TO 30 SQ.CM, GENITALIA (WRVU 10.83) Acquired buried penis 02/08/2024 8:30 AM EDT documented as of this encounter Visit Diagnoses Not on filedocumented in this encounter Care Teams Citizen Participation Specialist Relationship Specialty Start Date End Date Yung Horn MD [address] [place] [address] PCP - General 11/22/16 documented as of this encounter
--- OUTSIDE RECORDS SUMMARY | 2024-01-19 15:14 | XMS_ITS | Encounter Summary ---
Author Organization [facility] [place] [address] Care Team Providers Care Manager Erp Name Role Phone Yung Horn MD Primary Care Provider [phone] Encounter Details Date Type Department Care Team (Latest Contact Info) Description 04/10/2017 - 04/10/2017 12:04 AM EDT Hospital Encounter [place] [address] Puneet Vines MD [facility] [place] [address] Discharge Disposition: Home Social History Tobacco Use [...] EDT Telephone Pre Admission Testing at [address] [address] 02/07/2024 11:20 AM EDT [place] [address] Manoj Vinson MD [facility] [place] [address] 02/08/2024 8:30 AM EDT Hospital Encounter PACU at [address] [address] Manoj Vinson MD [facility] [place] [address] 02/08/2024 8:30 AM EDT - 02/08/2024 11:00 AM EDT Surgery Main OR at [address] [phone] Manoj Vinson MD [facility] [place] [address] ADJ.TISSUE TRANSFER, REARRANGEMENT, 10.1 TO 30 SQ.CM, GENITALIA (WRVU 10.83) Scheduled Procedures Name Priority Associated Diagnoses Date/Ti me ADJ.TISSUE TRANSFER, REARRANGEMENT, 10.1 TO 30 SQ.CM, GENITALIA (WRVU 10.83) Acquired buried penis 02/08/2024 8:30 AM EDT documented as of this encounter Procedures Procedure Name Priority Date/Time Associated Diagnosis Comments FILM LIBRARY STORAGE ONLY CT CHEST Routine 04/10/2017 12:00 AM EDT documented in this encounter Results * Film Library- Storage Only CT Chest (04/10/2017 12:00 AM EDT) Narrative [facility] - 05/26/2017 3:00 PM EST This exam is for storage only and is auto-finalizing. Puneet Vines MD IMG FILM LIBRARY ORD ERABLES [place], [place] documented in this encounter Visit Diagnoses Not on filedocumented in this encounter Care Teams Manager Erp Relationship Specialty Start Date End Date Yung Horn MD [address] [place], [place] [address] [address] PCP - General 11/22/16 documented as of this encounter
--- OUTSIDE RECORDS SUMMARY | 2024-01-19 15:14 | XMS_ITS | Encounter Summary ---
Author Organization [facility] [place] [place] [address] Care Team Providers Care Airplane Pilot Supervisor Name Role Phone Yung Horn MD Primary Care Provider [phone] Encounter Details Date Type Department Care Team (Late st Contact Info) Description 05/25/2017 External [place] [phone] Yevgeniy Ramos MD [facility] [address] Social History Tobacco Use Types Packs/Day Years [...] AM EDT Telephone Pre Admission Testing at [address] [phone] 02/07/2024 11:20 AM EDT Office [place] [phone] Manoj Vinson MD [facility] [place] [address] 02/08/2024 8:30 AM EDT Hospital Encounter PACU at [address] [address] Manoj Vinson MD [facility] [place] [address] 02/08/2024 8:30 AM EDT - 02/08/2024 11:00 AM EDT Surgery Main OR at [address] [phone] Manoj Vinson MD [facility] [place] [address] ADJ.TISSUE TRANSFER, REARRANGEMENT, 10.1 TO 30 SQ.CM, GENITALIA (WRVU 10.83) Scheduled Procedures Name Priority Associated Diagnoses Date/Ti me ADJ.TISSUE TRANSFER, REARRANGEMENT, 10.1 TO 30 SQ.CM, GENITALIA (WRVU 10.83) Acquired buried penis 02/08/2024 8:30 AM EDT documented as of this encounter Procedures Procedure Name Priority Date/Time Associated Diagnosis Comments ECG SCAN Routine 05/25/2017 documented in this encounter Results * Scan Doc: ECG (05/25/2017) Yevgeniy Ramos MD MEDIA MGR SCAN EXT O RDR/RSLT documented in this encounter Visit Diagnoses Not on filedocumented in this encounter Care Teams Airplane Pilot Supervisor Relationship Specialty Start Date End Date Yung Horn MD [facility] [place] [address] PCP - General 11/22/16 documented as of this encounter
--- OUTSIDE RECORDS SUMMARY | 2024-01-19 15:14 | XMS_ITS | Encounter Summary ---
[facility] Organization [facility] [place] [address] Care Team Providers Care Bridge Maintenance Worker Name Role Phone Boston Hernandez MD Primary Care Provider [phone] Reason for Visit * Auth/Cert Specialty Diagnoses / Procedures Referred By Contac t Referred To Contact Diagnoses Iron deficiency anemia, unspecified FE Def Anemia Procedures PRO UPPER GI ENDOSCOPY, DIAGNOSTIC PRO COLONOSCOPY, DIAGNOSTIC EGD, UPPER GI ENDOSCOPY COLONOSCOPY, DIAGNOSTIC Referral ID Status Reason Start Date Expiration Date Visits Re quested Visits Authorized [id number] 1 1 Encounter Details Date Type Department Care Team (Late st Contact Info) Description 08/05/2015 3:00 PM EST - 08/05/2015 4:00 PM EST [place] [address] Kwan Forte MD [facility] [place] [address] EGD, UPPER GI ENDOSCOPY (WRVU 2.09) Social [...] Sign Reading Time Taken Comments Blood Pressure 120/78 08/05/2015 3:42 PM EST Pulse 70 08/05/2015 3:42 PM EST Temperature - - Respiratory Rate 18 08/05/2015 3:42 PM EST Oxygen Saturation 97% 08/05/2015 3:42 PM EST Inhaled Oxygen Concentration - - Weight 108.9 kg (240 lb) 08/05/2015 2:14 PM EST Height 180.3 cm (5' 10.98) 08/05/2015 2:[address] Body Mass Index 33.49 08/05/2015 2:14 PM EST documented in this encounter Discharge Instructions * Discharge Instructions* Scarlett Castaneda RN - 08/05/2015 3:43 PM EST Please call [phone] before 5pm with problems, questions or concerns, after 5pm call the Hospital at [phone] and ask to speak to the Nuclear Medicine Chief Technologist field artillery cannoneer and the black top machine operator will contact that person for you. Discharge instructions reviewed with patient who expresses understanding. You may have received medications before and/or during your procedure which effects your judgement and reaction time. Do not drive, operate machinery, drink alcoholic beverages or make important decisions for 24 hours. Be careful on stairs as you may be unsteady on your feet. You may eat a regular diet as tolerated. Do not smoke if you are alone. IV site: Slight redness or tenderness is normal, you can use a warm compress if you would like. If tenderness and/or redness increase or if foul drainage occurs, please contact your Doctor. * Attachments The following attachments cannot be sent through Care Everywhere. * EGD (UPPER ENDOSCOPY) : POST-OP (SURINAMESE) * COLONOSCOPY : POST-OP (SURINAMESE) documented in this encounter Medications at Time of Discharge Medication Sig Dispensed Refills Start Date End Date ferrous sulfate 324 mg (65 mg iron) [...] by mouth 2 times daily (with meals). citalopram (CELEXA) 40 mg Tablet Take 40 [...] Pain. 05/28/2017 documented as of this encounter H&P Notes * Kwan Forte MD - 08/05/2015 2:38 PM EST Gastroenterology and Hepatology Pre-Procedure History and Physical Exam Procedure: EGD: Colonoscopy: Indication: GERD, BRBPR, history of gastric bypass surgery in 2009, colonoscopy 4 years ago with polyps Patient Active Problem List Diagnosis Code ??? Peyronie's disease N48.6 ??? Male erectile dysfunction N52.9 EXAM: HEENT: Airway examined, oropharynx clear Mallampati Score: III (soft palate, base of uvula visible) LUNGS: Clear to auscultation HEART: Regular rate and rhythm, normal S1, S2 ABDOMEN: Normal bowel sounds, soft, non tender, non distended, A/P Proceed with the planned endoscopic procedure. ASA 1 - Normal health patient Sedation Plan: moderate (conscious sedation) Risks and benefits of the procedure explained to the patient. Consent signed. documented in this encounter Plan of Treatment Upcoming Encounters Date Type Department Care Team (Latest Contact Info) Description 02/01/2024 11:15 AM EDT Telephone Pre Admission Testing at [address] [address] 02/07/2024 11:20 AM EDT Office Visit Urology at [facility] [place] [address] Manoj Vinson MD [facility] [place] [address] 02/08/2024 8:30 AM EDT Hospital Encounter PACU at [address] [address] Manoj Vinson MD [facility] [place] [address] 02/08/2024 8:30 AM EDT - 02/08/2024 11:00 AM EDT Surgery Main OR at [address] [address] Manoj Vinson MD [facility] [place] [address] ADJ.TISSUE TRANSFER, REARRANGEMENT, 10.1 TO 30 SQ.CM, GENITALIA (WRVU 10.83) Scheduled Procedures Name Priority Associated Diagnoses Date/Ti me ADJ.TISSUE TRANSFER, REARRANGEMENT, 10.1 TO 30 SQ.CM, GENITALIA (WRVU 10.83) Acquired buried penis 02/08/2024 8:30 AM EDT documented as of this encounter Procedures Procedure Name Priority Date/Time Associated Diagnosis Comments SURGICAL PATHOLOGY REPORT Routine 08/05/2015 3:33 PM EST SPECIMEN TO PATHOLOGY Routine 08/05/2015 3:33 PM EST SPECIMEN TO PATHOLOGY Routine 08/05/2015 3:33 PM EST UPPER GI ENDOSCOPY Routine 08/05/2015 2: 52 PM EST COLONOSCOPY Routine 08/05/2015 2:52 PM EST COLONOSCOPY, POLYPECTOMY, REMOVAL LESION BY SNARE (WRVU 4.57) 08/05/2015 2:44 PM EST FE Def Anemia EGD, UPPER GI ENDOSCOPY (WRVU 2.09) 08/05/2015 2:44 PM EST FE Def Anemia POCT GLUCOSE Routine 08/05/2015 2:34 PM EST POCT FINGERSTICK GLUCOSE Routine 08/05/2015 documented in this encounter Results * Surgical Pathology Report (08/05/2015 3:33 PM EST) Surgical Pathology Report [id number] ? Location: The signing pathologist has (i) examined the relevant preparation(s) for the specimen(s) and (ii) rendered or confirmed the diagnosis(es). . ?Surgical Pathology DIAGNOSIS A - Transverse colon, polypectomy: - Fragments of tubular adenoma. B - Sigmoid colon, polypectomy: - Hyperplastic polyp. CR-PX 08/06/15 AVERY 08/07/15 Verified by: ? Leroy Sparks MD ?Pathologist ?(Electronic Signature) The attending pathologist whose signature appears on this report has reviewed all diagnostic slides and has edited the gross and/or microscopic portion of the report in rendering the final pathologic diagnosis. CLINICAL INFORMATION Specimen Submitted: A - Three 3-4 mm sessile polyps transverse B - 4 mm sessile polyp sigmoid Clinical History: GI bleeding Clinical Diagnosis: GI bleeding SPECIMEN PROCESSING A - Labeled/Fixative : Three, 3-4 mm sessile polyps transverse, formalin. Quantity/Size: Fragments, 0.2-0.4 cm. Tissue Description: Hernandez-pink soft tissue. Sections/Process ing: (T1) B - Labeled/Fixative : 4 mm sessile polyp sigmoid, formalin. Quantity/Size: Single, 0.5 x 0.4 x 0.2 cm. Tissue Description: Polypoid, hernandez-pink soft tissue; inked and bisected. Sections/Process ing: (T1) ??pps [facility] 08/05/2015 3:33 PM EST Kwan Forte MD PATHOLOGY/CYTOLOGY ORDERABLES Performing Organization Address [facility] Co de Phone Number [facility] * Specimen to Pathology (surgical or derm) (08/05/2015 3:33 PM EST) AP Specimen 08/05/2015 3:33 PM EST 08/05/2015 3:33 PM EST Narrative [facility] - 08/05/2015 3:33 PM EST Specimen requisition ordered. ??Separate Pathology report to follow Kwan Forte MD PATHOLOGY/CYTOLOGY ORDERABLES Performing Organization Address [facility] Co de Phone Number [facility] * Specimen to Pathology (surgical or derm) (08/05/2015 3:33 PM EST) AP Specimen 08/05/2015 3:33 PM EST 08/05/2015 3:33 PM EST Narrative [facility] - 08/05/2015 3:33 PM EST Specimen requisition ordered. ??Separate Pathology report to follow Kwan Forte MD PATHOLOGY/CYTOLOGY ORDERABLES Performing Organization Address [facility] Co de Phone Number [facility] * UPPER GI ENDOSCOPY (08/05/2015 2:52 PM EST) UPPER GI ENDOSCOPY [facility] End[facility] ___ Patient Name: Yung Betancur ? Procedure Date: 08/05/2015 2:52 PM ? Date of : 1955 ? Age: 59 ? Order #: [id number] ? ___ Procedure: ? Upper GI endoscopy Indications: ? Gastrointestinal bleeding Providers: ? Kwan Forte MD, Roosevelt Donnelly ? MATEO Hadley, Dee Dee Lopes, ? Quick Mixer Operator Referring : ?Boston Hernandez MD Medicines: ? Midazolam 3.5 mg IV, Fentanyl 125 ? micrograms IV Complications: ? No immediate complications. ___ Procedure: ? Pre-Anesthesia Assessment: ? - Prior [...] and ? adverse medication reactions. The ? Endoscope was introduced through the ? mouth, and advanced to the efferent ? jejunal loop. The patient tolerated ? the procedure well. The upper GI ? endoscopy was accomplished without ? difficulty. The patient tolerated the ? procedure well. ? Findings: ? The Z-line was regular and was found 42 cm from the ? incisors. ? The examined esophagus was normal. ? Evidence of a gastric bypass was found. A gastric ? pouch with a normal size was found. The staple line ? appeared intact. The gastrojejunal anastomosis was ? characterized by healthy appearing mucosa. This was ? traversed. The rszqr-qt-zyxuxfp limb was ? characterized by healthy appearing mucosa. The ? jejunojejunal anastomosis was characterized by ? healthy appearing mucosa. The vtfzpcaa-ze-cadfsna ? limb was not examined as it could not be found. ? Impression: ?- Z-line regular, 42 cm from the ? incisors. ? - Normal esophagus. ? - Gastric bypass with a normal-sized ? pouch intact staple line. ? - No specimens collected. __ Kwan Forte MD 08/05/2015 3:04 PM Number of Addenda: 0 Note Initiated On: 08/05/2015 2:52 PM [facility] 08/05/2015 2:52 PM EST Boston Hernandez MD GENERAL SURGICAL ORD ERABLES [facility] * COLONOSCOPY (08/05/2015 2:52 PM EST) COLONOSCOPY [facility] Endoscopy Patient Name: Yung Betancur ? Procedure Date: 08/05/2015 2:52 PM ? Date of : 1955 ? Age: 59 ? Order #: [id number] ? Procedure: ? Colonoscopy Indications: ? Hematochezia Providers: ? Kwan Forte MD, Roosevelt Donnelly ? MATEO Hadley, Dee Dee Lopes, ? Quick Mixer Operator Referring : ?Boston Hernandez MD Medicines: ? [...] Boston Hernandez MD GENERAL SURGICAL ORD ERABLES Performing Organization Address [facility] de Phone Number [facility] * POCT Glucose (08/05/2015 2:34 PM EST) POC Glucose 172 65 - 199 mg/dL [facility] Comment: Supplemental ranges: <140 mg/dL before meals <180 mg/dL all other times of the day Blood specimen (specimen) 08/05/2015 2:34 PM EST 08/05/2015 2:34 PM EST Kwan Forte MD POINT OF CARE TEST ORDERABLES Performing Organization Address [facility] Phone Number [facility] * POCT Fingerstick Glucose (08/05/2015) POC Glucose 176 60 - 199 mg/dl 08/05/2015 Kwan Forte MD POINT OF CARE TEST ORDERABLES documented in this encounter Visit Diagnoses Not on filedocumented in this encounter Administered Medications Inactive Administered Medications - up to 3 most recent administrations Medication Order MAR Action Action Date Dose Rate Site fentaNYL 50 mcg/mL multi-dose injection ONCE PRN, Starting on Mon08/05/15 at 1447, Until Mon08/05/15 at 1555, Intra-Operative (Intra-Procedure), Routine Given 08/05/2015 3:12 PM EST 25 mcg Right Arm Given 08/05/2015 3:04 PM EST 25 mcg Ri ght Arm Given 08/05/2015 3:02 PM EST 25 mcg Ri ght Arm lactated ringers infusion 100 mL/hr, Intravenous, CONTINUOUS, Starting on Mon08/05/15 at 1500, Until Mon08/05/15 at 1555, Endoscopy (Day of Procedure) New Bag 08/05/2015 3:00 PM EST 100 mL/hr 100 mL/hr midazolam (PF) (VERSED) 1 mg/mL multi-dose injection ONCE PRN, Starting on Mon08/05/15 at 1447, Until Mon08/05/15 at 1555, Intra-Operative (Intra-Procedure), Routine Given 08/05/2015 3:12 PM EST 0.5 mg Given 08/05/2015 3:04 PM EST 0.5 mg Given 08/05/2015 3:02 PM EST 0.5 mg documented in this encounter Active and Recently Administered Medications Times are shown in EST. Continuous Medication Order 08/03/2015 08/04/2015 08/05/2015 lactated ringers infusion (CANCELED) 100 mL/hr, Intravenous, CONTINUOUS, Starting on Mon08/05/15 at 1500, Until Mon08/05/15 at 1555, Endoscopy (Day of Procedure) 1500 (New Bag - Prov ider: Laura Christy RN) PRN Medication Order 08/03/2015 08/04/2015 08/05/2015 fentaNYL 50 mcg/mL multi-dose injection (CANCELED) ONCE PRN, Starting on Mon08/05/15 at 1447, Until Mon08/05/15 at 1555, Intra-Operative (Intra-Procedure), Routine 1447 (Given - Provid er: Roosevelt Hadley RN)1452 (Given - Provider: Roosevelt Hadley RN)1455 (Given - Provider: Roosevelt Hadley RN)1502 (Given - Provider: Roosevelt Hadley RN - Comment: colo start)1504 (Given - Provider: Roosevelt Hadley RN)1512 (Given - Provider: Roosevelt Hadley RN) midazolam (PF) (VERSED) 1 mg/mL multi-dose injection (CANCELED) ONCE PRN, Starting on Mon08/05/15 at 1447, Until Mon08/05/15 at 1555, Intra-Operative (Intra-Procedure), Routine 1447 (Given - Provid er: Roosevelt Hadley RN)1449 (Given - Provider: Roosevelt Hadley RN)1452 (Given - Provider: Roosevelt Hadley RN)1455 (Given - Provider: Roosevelt Hadley RN)1502 (Given - Provider: Roosevelt Hadley RN - Comment: colo start)1504 (Given - Provider: Roosevelt Hadley RN)1512 (Given - Provider: Roosevelt Hadley RN) documented in this encounter Care Teams Bridge Maintenance Worker Relationship Specialty Start Date End Date Boston Hernandez MD [facility] [address] [place] [address] PCP - General General Internal Medicine 05/27/1511/07 documented as of this encounter
--- OUTSIDE RECORDS SUMMARY | 2024-01-19 15:14 | XMS_ITS | Encounter Summary ---
Author Organization [facility] [place] [address] Care Team Providers Care Spar Machine Operator Name Role Phone Boston Hernandez MD Primary Care Provider [phone] Reason for Visit * Auth/Cert Specialty Diagnoses / Procedures Referred By Contac t Referred To Contact Diagnoses Iron deficiency anemia, unspecified FE Def Anemia Procedures PRO UPPER GI ENDOSCOPY, DIAGNOSTIC PRO COLONOSCOPY, DIAGNOSTIC EGD, UPPER GI ENDOSCOPY COLONOSCOPY, DIAGNOSTIC Referral ID Status Reason Start Date Expiration Date Visits Re quested Visits Authorized [id number] 1 1 Encounter Details Date Type Department Care Team (Latest Contact Info) Description 08/05/2015 1:35 PM EST - 08/05/2015 3:55 PM EST Hospital Encounter [place] [address] Kwan Forte MD [facility] [place] [address] Discharge Disposition: Home Social History Tobacco Use [...] - 08/05/2015 3:43 PM EST Please call [phone] before 5pm with problems, questions or concerns, after 5pm call the Hospital at [phone] and ask to speak to the Radiologic Electronic Specialist promotion specialist and the monorail crane operator will contact that person for you. [...] Everywhere. * EGD (UPPER ENDOSCOPY) : POST-OP (SERBIAN) * COLONOSCOPY : POST-OP (SERBIAN) documented in this encounter Medications at Time [...] AM EDT Telephone Pre Admission Testing at [place] [address] 02/07/2024 11:20 AM EDT Office Visit Urology at [facility] [place] [address] Manoj Vinson MD [facility] [place] [address] 02/08/2024 8:30 AM EDT Hospital Encounter PACU at [address] [address] Manoj Vinson MD [facility] [place] [address] 02/08/2024 8:30 AM EDT - 02/08/2024 11:00 AM EDT Surgery Main OR at [address] [address] Manoj Vinson MD [facility] [place] [address] ADJ.TISSUE TRANSFER, REARRANGEMENT, 10.1 TO 30 SQ.CM, [...] (08/05/2015 3:33 PM EST) Surgical Pathology Report [id number] ? Location: The signing pathologist has (i) examined the relevant preparation(s) for the specimen(s) and (ii) rendered or confirmed the diagnosis(es). . ?Surgical Pathology DIAGNOSIS A - Transverse colon, polypectomy: - Fragments of tubular adenoma. B - Sigmoid colon, polypectomy: - Hyperplastic polyp. CR-PX 08/06/15 BJM 08/07/15 Verified by: ? Leroy Sparks MD [...] inked and bisected. Sections/Process ing: (T1) ??pps [facility] 08/05/2015 3:33 PM EST Kwan Forte MD PATHOLOGY/CYTOLOGY ORDERABLES Performing Organization Address [facility] Co de Phone Number [facility] * Specimen to Pathology (surgical or derm) (08/05/2015 3:33 PM EST) AP Specimen 08/05/2015 3:33 PM EST 08/05/2015 3:33 PM EST Narrative [facility] - 08/05/2015 3:33 PM EST Specimen requisition ordered. ??Separate Pathology report to follow Kwan Forte MD PATHOLOGY/CYTOLOGY ORDERABLES Performing Organization Address [facility] de Phone Number [facility] * Specimen to Pathology (surgical or derm) (08/05/2015 3:33 PM EST) AP Specimen 08/05/2015 3:33 PM EST 08/05/2015 3:33 PM EST Narrative [facility] - 08/05/2015 3:33 PM EST Specimen requisition ordered. ??Separate Pathology report to follow Kwan Forte MD PATHOLOGY/CYTOLOGY ORDERABLES Performing Organization Address [facility] de Phone Number [facility] * UPPER GI ENDOSCOPY (08/05/2015 2:52 PM EST) UPPER GI ENDOSCOPY [facility] Endoscopy ___ Patient Name: Yung Betancur ? Procedure Date: 08/05/2015 2:52 PM ? Date of : 1955 ? Age: 59 ? Order #: [id number] ? ___ Procedure: ? Upper GI endoscopy Indications: ? Gastrointestinal bleeding Providers: ? Kwan Forte MD, Roosevelt Donnelly ? MATEO Hadley, Dee Dee Lopes, ? Signals Officer Referring : ?Boston Hernandez MD Medicines: ? [...] appearing mucosa. This was ? traversed. The syrbx-qv-otlnszh limb was ? characterized by healthy appearing mucosa. The ? jejunojejunal anastomosis was characterized by ? healthy appearing mucosa. The mcpwiyjs-vs-ndpuppj ? limb was not examined as it [...] * COLONOSCOPY (08/05/2015 2:52 PM EST) COLONOSCOPY [facility] Endoscopy Patient Name: Yung Betancur ? Procedure Date: 08/05/2015 2:52 PM ? Date of : 1955 ? Age: 59 ? Order #: [id number] ? Procedure: ? Colonoscopy Indications: ? Hematochezia Providers: ? Kwan Forte MD, Roosevelt Donnelly ? MATEO Hadley, Dee Dee Lopes, ? Signals Officer Referring MD: ?Boston Hernandez MD Medicines: ? Midazolam 1.5 [...] GENERAL SURGICAL ORD ERABLES Performing Organization Address [facility] Co de Phone Number [facility] * POCT Glucose (08/05/2015 2:34 PM EST) POC Glucose 172 65 - 199 mg/dL [facility] Comment: Supplemental ranges: <140 mg/dL before meals <180 mg/dL all other times of the day Blood specimen (specimen) 08/05/2015 2:34 PM EST 08/05/2015 2:34 PM EST Kwan Forte MD POINT OF CARE TEST ORDERABLES Performing Organization Address [facility] de Phone Number [facility] * POCT Fingerstick Glucose (08/05/2015) POC Glucose 176 60 - 199 mg/dl 08/05/2015 Kwan Forte MD POINT OF CARE TEST ORDERABLES documented in this encounter Visit Diagnoses Not on filedocumented in this encounter Administered Medications Inactive Administered Medications - up to 3 most recent administrations Medication Order MAR Action Action Date Dose Rate Site lactated ringers infusion 100 mL/hr, Intravenous, CONTINUOUS, Starting on Mon08/05/15 at 1500, Until Mon08/05/15 at 1555, Endoscopy (Day of Procedure) New Bag 08/05/2015 3:00 PM EST 100 mL/hr 100 mL/hr documented in this encounter Active and Recently [...] Roosevelt Hadley RN)1455 (Given - Provider: Roosevelt aHdley RN)1502 (Given - Provider: Roosevelt Hadley RN [...] RN) documented in this encounter Care Teams Spar Machine Operator Relationship Specialty Start Date End Date Boston Hernandez MD [facility] [address] [place] [address] PCP - General General Internal Medicine 05/27/1511/07 documented as of this encounter
--- OUTSIDE RECORDS SUMMARY | 2024-01-19 15:14 | XMS_ITS | Encounter Summary ---
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 [address] * (ABNORMAL) POCT Glucose (05/26/2017 8:19 PM EST) POC Glucose 320(H) 65 - 199 mg/dL [facility] Comment: Supplemental ranges: <140 mg/dL before meals <180 mg/dL all other times of the day Blood specimen (specimen) 05/26/2017 8:19 PM EST 05/26/2017 8:19 PM EST Brendan Chua MD POINT OF CARE TEST O SANDOVAL Performing Organization Address [facility] Co de Phone Number [facility] [place] [address] * Basic Metabolic Panel (non-fasting) (05/26/2017 6:00 PM EST) Glucose Lvl 127 65 - 199 mg/dL [facility] Comment:Diabetes: >=200 mg/d L plus symptoms BUN 15 10 - 20 mg/dL [facility] Creatinine 0.97 0.80 - 1.50 mg/dL [facility] Sodium 139 135 - 145 mmol/L [facility] Potassium 4.5 3.5 - 5.0 mmol/L [facility] Comment: Please note: ??Patients with WBC >100,000 may have falsely elevated Potassium levels. ??For accurate Potassium quantification in these patients send serum separator tube (gold top) for subsequent determinations. ??Contact the Clinical Chemistry Laboratory if there are any questions. Chloride 103 98 - 107 mmol/L [facility] CO2 Not Perf 22 - 31 mmol/L [facility] Comment:Add-on request. Samp le too old to perform test. Anion Gap Unable to Calculate 5 - 15 mmol/L [facility] Calcium 9.1 8.5 - 10.5 mg/dL [facility] Estimated GFR >60 >=60 [facility] Comment: The reported eGFR should be multiplied by 1.2 for patients. The MDRD is not an appropriate measure of renal function for patients with body mass extremes or in patients with acute kidney failure. http://Fairphone/DHnkdep http://Fairphone/DHMCnkf Blood specimen (specimen) Venous Draw / Unknown 05/26/2017 6:00 PM EST 05/26/2017 7:31 PM EST Narrative Resulting Agency Comment Spec In Lab Rei Vines MD CHEMISTRY ORDERABLES [facility] [place] [address] * Differential, Automated (05/26/2017 6:00 PM EST) Neutrophils % 65.5 % [facility] Neutr Abs (ANC) 3.36 1.70 - 6.10 x10(3)/[facility] Lymphocytes % 25.1 % [facility] Lymphocytes Abs 1.3 0.9 - 3.2 x10(3)/[facility] Monocytes % 7.8 % [facility] Monocyte Abs 0.4 0.3 - 0.9 x10(3)/[facility] Eosinophils % 1.0 % [facility] Eosinophils Abs 0.0 0.0 - 0.4 x10(3)/[facility] Basophils % 0.4 % [facility] Basophils Abs 0.0 0.0 - 0.1 x10(3)/[facility] Immature Gran % 0.20 % [facility] Comment: Immature granulocytes(IG's)percentage and absolute count will include metamyelocytes, myelocytes, and promyelocytes. Blood smears from CBCs yielding IG's will be scanned manually for concordance. If this scan disagrees with the automated IG or if promyelocytes are noted, a manual differential will be performed. Shana Gran Abs 0.01 0.00 - 0.04 x10(3)/[facility] Blood specimen (specimen) 05/26/2017 6:00 PM EST 05/26/2017 6:07 PM EST Narrative Resulting Agency Comment Spec In Lab Rei Vines MD HEMATOLOGY ORDERABLE S [facility] [place] [address] * (ABNORMAL) Hemogram (05/26/2017 6:00 PM EST) WBC 5.1 4.0 - 9.5 x10(3)/[facility] RBC 3.96(L) 4.58 - 5.54 x10(6)/[facility] Hemoglobin 10.7(L) 13.7 - 16.5 gm/dL [facility] Hematocrit 32.9(L) 40.5 - 48.5 % [facility] MCV 83.1 82.9 - 93.1 fL [facility] MCH 27.0(L) 27.5 - 32.1 pg [facility] MCHC 32.5 32.0 - 35.7 gm/dL [facility] Platelets 151 145 - 357 x10(3)/[facility] LAB[facility]ATORY RDWSD 42.3 36.0 - 45.0 [facility] LAB[facility]ORY RDWCV 14.1(H) 11.4 - 13.8 % [facility] MPV 10.3 7.6 - 12.9 [facility] nRBC % Auto 0.0 % [facility] nRBC Abs Auto 0.000 0.000 - 0.000 x10(3)/[facility] Blood specimen (specimen) 05/26/2017 6:00 PM EST 05/26/2017 6:07 PM EST Narrative Resulting Agency Comment Spec In Lab Rei Vines MD HEMATOLOGY ORDERABLE S Performing Organization Address [facility] Co de Phone Number [facility] [place] [address] * (ABNORMAL) APTT (05/26/2017 6:00 PM EST) Pathologist [facility] PTT 43(H) 25 - 35 sec [facility] Comment: The recommended therapeutic range for full dose, unfractionated heparin at [facility] is 80 ? 114 seconds. The use of the anti-Xa (heparin) level rather than the PTT is recommended for monitoring anticoagulation intensity in critically ill patients receiving unfractionated heparin by continuous IV infusion. Blood specimen (specimen) 05/26/2017 6:00 PM EST 05/26/2017 6:07 PM EST Narrative Resulting Agency Comment Spec In Lab Rei Vines MD HEMATOLOGY ORDERABLE S Performing Organization Address [facility] de Phone Number [facility] [place] [address] * (ABNORMAL) Cardiac Enzymes (LEB/CGP) (05/26/2017 6:00 PM EST) [facility] Troponin-T <0.01 0.00 - 0.00 ng/mL [facility] Comment: The 99th percentile for Troponin T is less than 0.01 ng/mL, any detectable cTnT concentration using this assay should be considered elevated. According to the third universal definition of myocardial infarction the following criteria with a clinical presentation consistent with acute myocardial ischemia meets the diagnosis for a myocardial infarction (UT). Detection of a rise and/or fall of cTnT, with at least one value greater than the 99th percentile (> or = 0.01) and with at least one of the following ?? Symptoms of ischemia ?? New or presumed new significant DR-eryevje-E wave (ST-T) changes or new left bundle [...] additional sample may be indicated. Reference: Third [place] Definition of Myocardial Infarction. Journal of the [employer] 2012;60:1581-98 CK, Total 389(H) 0 - 200 unit/L [facility] Blood specimen (specimen) 05/26/2017 6:00 PM EST 05/26/2017 6:07 PM EST Narrative Resulting Agency Comment Spec In Lab Rei Vines MD CHEMISTRY ORDERABLES Performing Organization Address [facility] Co de Phone Number [facility] [place] [address] * POCT Glucose (05/26/2017 5:07 PM EST) Pathologist [facility] POC Glucose 143 65 - 199 mg/dL [facility] Comment: Supplemental ranges: <140 mg/dL before meals <180 mg/dL all other times of the day Blood specimen (specimen) 05/26/2017 5:07 PM EST 05/26/2017 5:07 PM EST Rei Vines MD POINT OF CARE TEST O RDERABLES Performing Organization Address [facility] Co de Phone Number [facility] [place] [address] * EKG 12 Lead (05/26/2017 4:14 PM EST) Ventricular rate 56 BPM MUSE SYSTEM Atrial Rate 56 BPM MUSE SYSTEM P-R Interval 162 ms MUSE SYSTEM QRS Duration 90 ms MUSE SYSTEM Q-T Interval 426 ms MUSE SYSTEM QTC Calculated (Bezet) 411 ms MUSE SYSTEM Calculated P [place] 58 degrees MUSE SYSTEM Calculated R [place] 12 degrees MUSE SYSTEM Calculated T [place] 27 degrees MUSE SYSTEM INTERPRETATION Sinus bradycardia Otherwise normal ECG No previous ECGs available Confirmed by MD EZ, REI ([id number]) on 05/27/2017 11:23:33 AM MUSE SYSTEM 05/26/2017 4:14 PM EST 05/27/2017 11:23 AM EST Rei Vines MD ECG ORDERABLES MUSE SYSTEM * SCAN DOC: CLINICAL MASSAGE THERAPIST (05/26/2017 12:00 AM EST) Anatomical Region Laterality Modality Other Narrative 05/26/2017 12:00 AM EST Ordered by an unspecified provider. Scanning Provider MEDIA MGR SCAN EXT O RDR/RSLT documented in this encounter Visit Diagnoses Not on filedocumented in this encounter Admitting Diagnoses Diagnosis Chest [...] Given 05/27/2017 12:45 AM EST 40 mg fentaNYL 50 mcg/mL multi-dose injection ONCE PRN, Starting on 05/27/17 at 1503, Until 05/27/17 at 1538, Intra-Operative (Intra-Procedure), Routine Given 05/27/2017 3:08 PM EST 25 mcg Given 05/27/2017 3:03 PM EST 25 mcg glucagon (human recombinant) injection SolR 1 mg [...] 05/26/2017 10:40 PM EST 4,000 Units heparin (porcine) injection ONCE PRN, Starting on 05/27/17 at 1518, Until 05/27/17 at 1538, Cath (Intra-Procedure), Routine Given 05/27/2017 3:18 PM EST 5,000 Units heparin 25,000 units in dextrose 5% [...] Given 05/28/2017 4:15 AM EST 1 Units iohexol (OMNIPAQUE) 350 mg/mL solution ONCE PRN, Starting on 05/27/17 at 1534, Until 05/27/17 at 1538, Cath (Intra-Procedure), Routine Given 05/27/2017 3:34 PM EST 80 mLs lisinopril (PRINIVIL;ZESTRIL) tablet 2.5 mg 2.5 mg, [...] Given 05/26/2017 6:02 PM EST 25 mg midazolam (PF) (VERSED) 1 mg/mL multi-dose injection ONCE PRN, Starting on 05/27/17 at 1503, Until 05/27/17 at 1538, Cath (Intra-Procedure), Routine Given 05/27/2017 3:08 PM EST 1 mg Given 05/27/2017 3:03 PM EST 1 mg nitroGLYcerin 100 mcg/mL intracoronary dilution ONCE PRN, Starting on 05/27/17 at 1517, Until 05/27/17 at 1538, Cath (Intra-Procedure), Routine Given 05/27/2017 3:26 PM EST 150 mcg Given 05/27/2017 3:17 PM EST 150 mcg nitroGLYcerin 50 mg/250 mL (200 mcg/mL) infusion [...] PM EST 100 mL/hr 100 mL /hr verapamil (ISOPTIN) injection ONCE PRN, Starting on 05/27/17 at 1516, Until 05/27/17 at 1538, Administer over 2 Minutes, Cath (Intra-Procedure) Given 05/27/2017 3:16 PM EST 2.5 mg documented in this encounter Active and [...] Amber Olsen RN)1000 (Not Given - Provider: Shaikra Manzano RN - Reason: Patient/family refused)1400 (Not Given - Provider: Shakira Manzano RN - Reason: Contraindicated)1505 (MAR Hold - Provider: Admin Adt - Reason: Transfer to a Procedural area)1733 (MAR Unhold - Provider: Admin Adt)1800 (Not Given - Provider: Shakira Manzano, MATEO - Reason: Contraindicated)2202 (Given - Provider: Naz Mathias, RN) 0202 (Given - Provider: Naz aMthias, RN)0602 (Given - Provider: Naz Mathias, RN)0910 (Given - Provider: Antonina Ty, MATEO) atorvastatin (LIPITOR) tablet 80 mg 80 mg, Oral, EVERY EVENING, First dose on Mon05/26/17 at 1800, Until Discontinued, Routine 1804 (Given - Provider: Mavis French RN) 1505 (SEP Hold - Provider: Admin Adt - Reason: Transfer to a Procedural area)1700 (Automatically Held - Provider: Admin Adt)1733 ([facility] Unhold - Provider: Admin Adt) diphenhydrAMINE/aluminum- magnesium hydroxide with simethicone/lidocaine (BMX) oral suspension (COMPLETED) 5 mL, Oral, ONCE, 1 dose, On Mon05/26/17 at 1800, Each 5 mL contains equal parts of diphenhydramine (BENADYL), aluminum-magnesium hydroxide w/ simethicone (MAALOX), and lidocaine (XYLOCAINE) , STAT 1804 (Given - Provider: Mavis French RN) enoxaparin (LOVENOX) injection 40 mg 40 mg, Subcutaneous, NIGHTLY, First dose on Mon05/26/17 at 2330, Until Discontinued, Routine 0045 (Given - Provider: Amber Olsen RN)1505 ([facility] Hold - Provider: Admin Adt - Reason: Transfer to a Procedural area)1733 ([facility] Unhold - Provider: Admin Adt)2040 (Given - Provider: Ana Laura Carson RN) [...] Manzano, MATEO)1200 (Not Given - Provider: Shakira Manzano, MATEO - Reason: Contraindicated)1505 (SEP Hold - Provider: Admin Adt - Reason: Transfer to a Procedural area)1600 (Automatically Held - Provider: Admin Adt)1733 (MAR Unhold - Provider: Admin Adt)2041 (Given - Provider: Ana Laura Carson RN) 0008 (Given - Provider: Naz Mathias RN)0415 (Given - Provider: Naz Mathias RN)0800 (Given - Provider: Antonina Ty, MATEO)1154 (Given - Provider: Antonina Ty, MATEO) lisinopril (PRINIVIL;ZESTRIL) tablet 2.5 mg 2.5 mg, Oral, DAILY, First dose on Mon05/26/17 at 1800, Until Discontinued, Routine 1800 (Hold - Provider: Amber Olsen RN - Reason: Medication not available) 0842 (Given - Provider: Shakira Manzano RN)1505 (MAR Hold - Provider: Admin Adt - Reason: Transfer to a Procedural area)1733 (MAR Unhold - Provider: Admin Adt) 0911 (Given - Provider: Antonina Ty, MATEO) meTOPROLOL succinate (TOPROL-XL) XL tablet 25 mg 25 mg, Oral, DAILY, First dose on Mon05/26/17 at 1800, Until Discontinued, DO NOT CRUSH OR OPEN Hold for HR < 55 or SBP < 100, Routine 1802 (Given - Provider: Mavis French RN) 0842 (Given - Provider: Shakira Manzano RN)1505 (MAR Hold - Provider: Admin Adt - Reason: Transfer to a Procedural area)1733 ([facility] Unhold - Provider: Admin Adt) 0911 (Given - Provider: Antonina Ty, MATEO) pantoprazole (PROTONIX) tablet 40 mg 40 mg, Oral, DAILY, First dose on 05/27/17 at 0900, Until Discontinued 0842 (Given - Provider: hSakira Manzano, MATEO)1505 ([facility] Hold - Provider: Admin Adt - Reason: Transfer to a Procedural area)1733 ([facility] Unhold - Provider: Admin Adt) 0910 (Given - Provider: Antonina Ty RN) PARoxetine (PAXIL) tablet 30 mg 30 mg, Oral, DAILY, First dose on 05/27/17 at 0900, Until Discontinued, Routine 0842 (Given - Provider: Shakira Manzano RN)1505 ([facility] Hold - Provider: Admin Adt - Reason: Transfer to a Procedural area)1733 ([facility] Unhold - Provider: Admin Adt) 0950 (Given - Provider: Antonina Ty RN) sodium chloride 0.9 % flush 5 mL 5 mL, Intravenous, 2 TIMES DAILY, First dose on Mon05/26/17 at 2100, Until Discontinued, Routine 2037 (Given - Provider: Amber Olsen RN) 0848 (Given - Provider: Shakira Manzano RN)1505 ([facility] Hold - Provider: Admin Adt - Reason: Transfer to a Procedural area)1733 ([facility] Unhold - Provider: Admin Adt)2047 (Given - Provider: Ana Laura Carson RN) 0911 (Given - Provider: Antonina Ty RN) Continuous Medication Order 05/26/2017 05/27/2017 05/28/2017 heparin [...] duration of the active insulin., Routine 1505 (MAR Hold - Provider: Admin Adt - Reason: Transfer to a Procedural area)1733 (MAR Unhold - Provider: Admin Adt) fentaNYL 50 [...] of the active insulin., Routine 1505 ([facility] Hold - Provider: Admin Adt - Reason: Transfer to a Procedural area)1733 ([facility] Unhold - Provider: Admin Adt) heparin [...] dose, Starting on Mon05/26/17 at 1737, Until Mon05/28/17 at 1545, for discomfort with PIV insertion, Routine 1505 ([facility] Hold - Provider: Admin Adt - Reason: Transfer to a Procedural area)1733 ([facility] Unhold - Provider: Admin Adt) midazolam (PF) (VERSED) 1 mg/mL multi-dose injection (CANCELED) ONCE PRN, Starting on 11/18/17 at 1503, Until 05/27/17 at 1538, Cath (Intra-Procedure), Routine 1503 (Given - Provider: Suzy Yates, MATEO)1508 (Given - Provider: Suzy Yates RN) nitroGLYcerin (NITROSTAT) SL tablet 0.4 mg 0.4 mg, Sublingual, EVERY 5 MIN PRN, Starting on 05/26/17 at 1737, Until 05/28/17 at 1545, Chest [...] area)1733 (MAR Unhold - Provider: Admin Adt) nitroGLYcerin 100 mcg/mL intracoronary dilution (CANCELED) ONCE PRN, Starting on 05/27/17 at 1517, Until 05/27/17 at 1538, Cath (Intra-Procedure), Routine 1517 (Given - Provider: Scott Santoro MD)1526 (Given - Provider: Scott Santoro MD) simethicone (MYLICON) chewable tablet 40 mg 40 mg, Oral, EVERY 6 HOURS PRN, Starting on 05/27/17 at 2028, Until 05/28/17 at 1545, Cramping, Routine 2040 (Given - Provider: Ana Laura Carson RN) sodium chloride 0.9 % flush 5-20 mL 5-20 mL, Intravenous, EVERY 1 MIN PRN, Starting on 05/26/17 at 1737, Until 05/28/17 at 1545, flush, Flush pertains to all indwelling lines. Flush per protocol found in the job aid using the link provided on this medication record., Routine 1505 (MAR Hold - Provider: Admin Adt - Reason: Transfer to a Procedural area)1733 (MAR Unhold - Provider: Admin Adt) verapamil (ISOPTIN) injection (CANCELED) ONCE PRN, Starting on 05/27/17 at 1516, Until 05/27/17 at 1538, Administer over 2 Minutes, Cath (Intra-Procedure) 1516 (Given - Provider: Scott Santoro MD) No Frequency Medication Order 05/26/2017 05/27/2017 05/28/2017 nitroGLYcerin 50 mg/250 mL (200 mcg/mL) infusion (COMPLETED) 1 dose, Starting on Mon05/26/17 at 1554, Until Mon05/26/17 at 1811, MAVIS FRENCH: cabinet override 1607 (New Bag - Provider: [...] 4 HOURS, First occurrence on Mon05/26/17 at 2000, Until Specified, Consider choosing EVERY 4 HOURS [...] Routine documented in this encounter Care Teams University Relations Recruiter Relationship Specialty Start Date End Date Yung Horn MD [address] [place] [id number] PCP - General 11/22/16 documented as of this encounter
--- OUTSIDE RECORDS SUMMARY | 2024-01-19 15:15 | XMS_ITS | Encounter Summary ---
Author Organization [facility] Address [address] [place] [address] Care Team Providers Care Pizza Delivery Driver Name Role Phone Yung Horn MD Primary Care Provider [phone] Encounter Details Date Type Department Care Team (Late st Contact Info) Description 01/10/2022 Lab Requisition [facility] Pathology & Laboratory Medicine - [address] [address] Outr Resulting Lab, Provider Social History Tobacco Use Types Packs/Day Years Used Date Smoking Tobacco: Never Assessed Interpersonal Safety Answer Date Record ed Physically Hurt Never 02/10/2020 Verbally Threaten Not on file 02/10/2020 Sex and Gender Information Value Date Recorded Sex Assigned at Not on file Gender Identity Not on file Sexual Orientation Not on file documented as of this encounter Plan of Treatment Not on file documented as of this encounter Procedures Procedure Name Priority Date/Time Associated Diagnosis Comments ZZCOVID-19 TEST [facility] PCR Today 01/10/2022 11:19 EDT COVID-19 TESTING Routine 01/10/2022 11:1 9 EDT documented in this encounter Results * COVID-19 TEST [facility] PCR (01/10/2022 11:19 EDT) Swab 01/10/2022 11:1 9 EDT 01/11/2022 16:29 EDT Provider Outr Resulting Lab MICROBIOLOGY - GENERAL ORDERABLES [facility] [address] [place] [address] * COVID-19 TESTING (01/10/2022 11:19 EDT) COVID-19 rt-PCR Result Negative Negative 01/12/2022 11:[address] [facility] Comment: This test has not been FDA cleared or approved. This test has been authorized by FDA under an EUA for use by authorized laboratories. This test has been authorized only for detection of nucleic acid from 2019-nCoV, not for any other viruses or pathogens. This test is only authorized for the duration of the declaration that circumstances exist justifying the authorization of emergency use of in vitro diagnostic tests for detection and/or diagnosis of 2019-nCoV under section 564(b)(1) of Act, 21 U.S.C ?? 360bbb-3(b) (1), unless the authorization is terminated or revoked sooner. Negative results do not preclude 2019-nCoV infection and should not be used as the sole basis for treatment or other patient management decisions. Negative results must be combined with clinical observations, patient history, and epidemiological information. Testing was performed using the thony SARS-CoV-2 assay ([employer] on the Thony 6800 System Performing Lab Thony [address] [facility] Lab 01/12/2022 11:[address] [facility] Swab 01/10/2022 11:1 9 EDT 01/11/2022 16:29 EDT Provider Outr Resulting Lab MICROBIOLOGY - GENERAL ORDERABLES [facility] [address] [place] [address] documented in this encounter Visit Diagnoses Not on filedocumented in this encounter Care Teams Pizza Delivery Driver Relationship Specialty Start Date End Date Yung Horn MD [facility] [place] [address] PCP - General 01/26/18 documented as of this encounter
--- OUTSIDE RECORDS SUMMARY | 2024-01-19 15:15 | XMS_ITS | Encounter Summary ---
Author Organization [facility] Address [address] [place] [address] Care Team Providers Care Customer Success Associate Name Role Phone Yung Horn MD Primary Care Provider [phone] Encounter Details Date Type Department Care Team (Late st Contact Info) Description 11/12/2019 Lab Requisition [facility] Pathology & Laboratory Medicine - [address] [id number] Outr Resulting Lab, Provider Social History Tobacco Use Types Packs/Day Years Used Date Smoking Tobacco: Never Assessed Sex and Gender Information Value Date Recorded Sex Assigned at Not on file Gender Identity Not on file Sexual Orientation Not on file documented as of this encounter Plan of Treatment Not on file documented as of this encounter Procedures Procedure Name Priority Date/Time Associated Diagnosis Comments ZZCOVID-19 TEST [facility] PCR Today 11/12/2019 14:45 EDT COVID-19 TESTING Routine 11/12/2019 14:4 5 EDT documented in this encounter Results * COVID-19 TEST [facility] PCR (11/12/2019 14:45 EDT) Swab ENTIRE NASOPHARYNX / Unknown 11/12/2019 14:45 EDT 11/12/2019 20:51 EDT Provider Outr Resulting Lab MICROBIOLOGY - GENERAL ORDERABLES [facility] [address] [place] [address] * COVID-19 TESTING (11/12/2019 14:45 EDT) COVID-19 rt-PCR Result Negative Negative 11/13/2019 13:06 EDT [facility] Comment: Negative results do not preclude 2019-nCoV infection and should not be used as the sole basis for treatment or other patient management decisions. Negative results must be combined with clinical observations, patient history, and epidemiological information. This test was developed and its performance characteristics determined by [facility]. It has not been cleared or approved by the US Food and Drug Administration. FDA does not require this test to go through premarket FDA review. This test is used for clinical purposes. It should not be regarded as investigational or for research. This laboratory is certified under the Clinical Laboratory Improvement Amendments (CLIA) as qualified to perform high complexity clinical laboratory testing. This test is based on the CDC COVID-19 Emergency Use Authorization (EUA) assay, with minor modification as defined by the FDA Performed on the [employer] 7500 Fast. Performing Lab [facility] Hospital Lab 11/13/2019 13:06 EDT [facility] Swab ENTIRE NASOPHARYNX / Unknown 11/12/2019 14:45 EDT 11/12/2019 20:51 EDT Provider Outr Resulting Lab MICROBIOLOGY - GENERAL ORDERABLES [facility] [address] [place] [address] documented in this encounter Visit Diagnoses Not on filedocumented in this encounter Care Teams Customer Success Associate Relationship Specialty Start Date End Date Yung Horn MD [place] [place] [address] PCP - General 01/26/18 documented as of this encounter
--- OUTSIDE RECORDS SUMMARY | 2024-01-19 15:15 | XMS_ITS | Encounter Summary ---
Author Organization [facility] Address [address] [place] [address] Care Team Providers Care Flight Engineer Instructor Name Role Phone Yung Horn MD Primary Care Provider [phone] Reason for Visit * (Routine/Next Available) - Receiving Office to Obtain Authorization Specialty Diagnoses / Procedures Referred By Marisela ramesh Referred To Contact Procedures XR OUTSIDE IMAGES MSK Imaging, External Referral ID Status Reason Start Date Expiration Date Visits Requested Visits Authorized [id number] Receiving Office to Obtain Authorization 2 1 1 Encounter Details Date Type Department Care Team (Latest Contact Info) Description 04/20/2022 Hospital Encounter [facility] Secondary Reads [place] Discharge Disposition: Home or Self Care Social History Tobacco Use Types Packs/Day Years [...] Sig Dispensed Refills Start Date End Date aspirin chewable 81 mg tablet Take 81 mg by mouth daily. gabapentin (NEURONTIN) 600 mg tablet Take 600 mg by mouth as needed. lisinopril (PRINIVIL, ZESTRIL) 2.5 mg tablet Take 2.5 mg by mouth daily. metFORMIN (GLUCOPHAGE) 500 mg tablet Take 1,000 mg by mouth 2 times daily. pantoprazole (PROTONIX) 40 mg tablet Take 40 mg by mouth daily. venlafaxine (EFFEXOR-XR) 150 mg XR capsule Take 150 mg by mouth daily. documented as of this encounter Discharge Disposition Disposition Code Departure Means Destination Home or Self Care documented in this encounter Plan of Treatment Not on file documented as of this encounter Procedures Procedure Name Priority Date/Time Associated Diagnosis Comments XR OUTSIDE IMAGES MSK Routine 04/20/2022 6:37 EDT documented in this encounter Results * XR OUTSIDE IMAGES MSK (04/20/2022 6:37 EDT) Narrative 04/21/2022 6:37 EDT This is a non-reportable exam. External Imaging IMG OTHER IMAGING OR DERABLES documented in this encounter Visit Diagnoses Not on filedocumented in this encounter Care Teams Flight Engineer Instructor Relationship Specialty Start Date End Date Yung Horn MD [address] [place] [address] PCP - General 01/26/18 documented as of this encounter
--- OUTSIDE RECORDS SUMMARY | 2024-01-19 15:15 | XMS_ITS | Encounter Summary ---
Author [facility] [place] [address] Care Team Providers Care Traveling Construction Superintendent Name Role Phone Boston Hernandez MD Primary Care Provider Reason for Visit * Auth/Cert Specialty Diagnoses / Procedures Referred By Contac t Referred To Contact Diagnoses ED/PEYRONIE'S Procedures PRO INSERT, INFLATABLE PENILE PROSTHESIS PENILE PROSTHESIS, MULTI-COMPONENT Referral ID Status Reason Start Date Expiration Date Visits Re quested Visits Authorized [id number] 1 1 Encounter Details Date Type Department Care Team (Late st Contact Info) Description 06/09/2015 3:46 PM EST Anesthesia Event [place] [address] Marcelino Mireles MD [facility] [place] [address] Arabella Hatch MD [facility] [place] [address] Anesthesia Record Procedure Summary Procedure Name Responsible Anesthesiologist Anesthesia Start Time Anesthesia Stop Time PENILE PROSTHESIS, MULTI-COMPONENT (WRVU 14.52) (Penis) Marcelino Mireles MD 06/09/15 1546 06/09/15 1840 Events Date Time Event Comment 06/09/2015 1517 1546 Start 1552 An Start Data 1554 AN Verify 1558 An Induction 1600 An Intubation 1601 Anesthesia Ready 1628 Handoff Intra-procedure anesthesia care was transferred after review of the patient's history, current anesthetic/surgical status and plan, according to the ANES Provider Handoff Checklist. 1631 Skin Incision 1716 Handoff Intra-procedure anesthesia care was transferred after review of the patient's history, current anesthetic/surgical status and plan, according to the ANES Provider Handoff Checklist. Of note, per report, pt had 1L IV fluid in preop area which is not included on this anes record. 1722 Quick Note Wolff catheter in situ - UOP not currently measured/documented bc the bag/urometer is within surgical sterile field. 1825 Procedure Stop 1828 Extubation/LMA Out Extubatio n notes: SV c TV 525-800 RR 11-13. ETT out c PP s/p deep pharyngeal suctioning. 90mmOA placed, SV resumed, O2 via FM. VSS. Transported to recovery. 182 an stop data 1839 Recovery or ICU Handoff Irma ent care was transferred to the destination unit staff after review of the patient's medical history, current anesthetic/surgical status and plan, according to the Provider Handoff Checklist. 1840 Stop Arrived to sohail very, Monitors attached, VSS, O2 via FM, ventilating well c OA. Reported SBAR to nurse. Pt appropriate. Care Transferred. Meds Name Total Midazolam 2 mg fentaNYL 250 mcg Propofol 480 mg Rocuronium 50 mg ePHEDrine 20 mg Ondansetron 4 mg Dexamethasone 4 mg vancomycin 1 g in dextrose 5% 200 mL 1 g gentamicin (GARAMYCIN) 326.8 mg in sodiu m chloride 0.9% 108.17 mL 326.8 mg HYDROmorphone 0.8 mg lactated ringers infusion 1,000 mL 900 m L * Agents Name O2 Air Sevoflurane (et) * Blood No blood administrations on file. Lines, Drains, and Airways Type Details Placement Removal Incision 06/09/15; penis; (LDA cleanup utility RA#[id number]); 1715 (LDA cleanup utility RA#[id number]) 06/09/15 0000 by More Cramer RN 03/07/22 1715 by Nat Hoffman (RETIRED) Peripheral IV Line - Single Lumen 06/09/15; 1338; [id number] catheter system; 20 gauge; Justina Still RN; intradermal injection, age-appropriate response; 0; not present at this time; 06/10/15 06/09/15 1338 by Justina Still RN 06/10/15 0000 by Alena Doan RN ETT Mask Ventilation: Ad junct (2); ETT Type: Cuffed, Oral; ETT Size: 7.5 mm; Mac Blade: 4; Notes: Asleep, Pre-O2, Cricoid Pressure, Stylette; Attempts: 1; Laryngoscopy Grade: 2; ETT Placement Verified By: Capnometry, Visual; Secured at Teeth: 21 cm; Inserted by: SEEMA Richards; Removal Date: 06/09/15; Removal Time: 182706/09/15 1600 by Scarlett Richards CRNA 06/09/15 1828 by Evelyne Apple CRNA Urethral Catheter 06/09/15; 1632; Urol ogic surgery, Surgery longer than 2 hours, Need for intraoperative urine output monitoring, Physician order; Physician order; indwelling single lumen catheter; 100% silicone; 16; inserted at this facility; 1; 5; 10; none; drainage bag to dependent drainage; 06/10/15; 1236 06/09/15 1632 by More Cramer RN 06/10/15 1236 by Laura Vallecillo RN documented in this encounter Social History Tobacco Use Types Packs/Day [...] on file documented as of this encounter OR Notes * Anesthesia Postprocedure Evaluation - Marcelino Mireles MD - 06/09/2015 7:45 PM EST [facility] [place] Department of Anesthesiology Post-procedure Note Patient: Yung Betancur Procedure Summary Date Anesthesia Start Anesthesia Stop Room / Location 06/09/15 0733 [facility] Procedure Diagnosis Surgeon Responsible Provider PENILE PROSTHESIS, MULTI-COMPONENT (N/A Penis) No diagnosis on file. Ebenezer Patino III, MD Mancuso, Aaron J, MD (ED/PEYRONIE'S) Last (1hr) Vitals: BP 127/73 mmHg (06/09/151929) Temp Pulse 82 (06/09/151929) Resp 12 (06/09/151929) SpO2 98 % (06/09/151929) Patient Location: PACU/[facility] Level of Consciousness: Awake and Alert Pain Management: Satisfactory Analgesia PONV: None Cardiovascular Status: At Baseline Respiratory Status: At Baseline Postoperative Fluid Status: Intravascular EUvolemia Possible Anesthetic Complications: NONE apparent at time of evaluation Final Primary Anesthesia Type: General (The anesthetic type performed was the same as planned.) Comments: Pt endorses some tenderness in the area of operation that is tolerable at this time. * Anesthesia Preprocedure Evaluation - Arabella Hatch MD - 06/08/2015 6:32 PM EST Pre-Anesthesia Evaluation for: Yung Betancur a 59 y.o. male. Procedure(s): PENILE PROSTHESIS, MULTI-COMPONENT Patient Active Problem List Diagnosis ??? Peyronie's disease ??? Male erectile dysfunction No past medical history on file. No past surgical history on file. History Substance Use Topics ??? Smoking status: Not on file ??? Smokeless tobacco: Not on file ??? Alcohol Use: Not on file History Drug Use Not on file Allergies Allergen Reactions ??? Adhesive Tape Rash Medications: MAR and/or home medications have been reviewed. Physical Exam: There were no vitals filed for this visit. There is no weight on file to calculate BMI. Airway Assessment: Mallampati: II TM distance: >3 FB Neck ROM: full Cardiovascular Assessment: Rhythm: regular Rate: normal Pulmonary Assessment: Dental Assessment: Comment: None loose or removable per pt. Misc Assessment: Anesthesia Plan: ASA 3 General, 59 y/o male with increased BMI, DM2, GERD, HLD, cervical spinal stenosis, anxiety presents with ED for penile prosthesis. Denies CP, SOB. Good functional capacity. Denies problems with anesthesia, self or family. Plan GETA. Risks, benefits, alternatives discussed. Questions solicited and answered. Consent obtained. Region - Other Informed Consent: Anesthetic plan and risks discussed with patient and spouse. Plan discussed with ASSISTANT WINEMAKER. [facility] Staff Note documented in this encounter Plan of Treatment Upcoming Encounters Date Type Department Care Team (Latest Contact Info) Description 02/01/2024 11:15 AM EDT Telephone Pre Admission Testing at [address] [address] 02/07/2024 11:20 AM EDT [place] [address] Manoj Vinson MD [facility] [place] [address] 02/08/2024 8:30 AM EDT Hospital Encounter PACU at [address] [address] Manoj Vinson MD [facility] [address] 02/08/2024 8:30 AM EDT - 02/08/2024 11:00 AM EDT Surgery Main OR at [address] [address] Manoj Vinson MD [facility] [address] ADJ.TISSUE TRANSFER, REARRANGEMENT, 10.1 TO 30 SQ.CM, GENITALIA (WRVU 10.83) Scheduled Procedures Name Priority Associated Diagnoses Date/Ti va ADJ.TISSUE TRANSFER, REARRANGEMENT, 10.1 TO 30 SQ.CM, GENITALIA (WRVU 10.83) Acquired buried penis 02/08/2024 8:30 AM EDT documented as of this encounter Visit Diagnoses Not on filedocumented in this encounter Administered Medications Inactive Administered Medications - up to 3 most recent administrations Medication Order MAR Action Action Date Dose Rate Site dexamethasone (DECADRON) injection PRN, Starting on Mon06/09/15 at 1620, Until Mon06/09/15 at 1842, Anesthesia Intra-op, Routine Given 06/09/2015 4:20 PM EST 4 mg ePHEDrine 5 mg/mL multi-dose injection PRN, Starting on Mon06/09/15 at 1615, Until Mon06/09/15 at 1842, Anesthesia Intra-op, Routine Given 06/09/2015 4:55 PM EST 5 mg Given 06/09/2015 4:32 PM EST 5 mg Given 06/09/2015 4:17 PM EST 5 mg fentaNYL 50 mcg/mL multi-dose injection PRN, Starting on Mon06/09/15 at 1557, Until Mon06/09/15 at 1842, Pain, Anesthesia Intra-op, Routine Given 06/09/2015 5:06 PM EST 50 mcg Given 06/09/2015 4:42 PM EST 50 mcg Given 06/09/2015 4:26 PM EST 50 mcg gentamicin (GARAMYCIN) 326.8 mg in sodium chloride 0.9% 108.17 mL 326.8 mg (rounded from 326.7 mg = 3 mg/kg/dose ? 108.9 kg), Intravenous, ONCE, 1 dose, On Mon06/09/15 at 1400, Administer over 60 Minutes, This medication may have an associated drug lab level. Please check for lab orders., Indication for (Active or Suspected): Prophylaxis Given 06/09/2015 4:05 PM EST 326.8 mg HYDROmorphone (DILAUDID) injection PRN, Starting on Mon06/09/15 at 1735, Until Mon06/09/15 at 1842, Pain, Anesthesia Intra-op, Routine Given 06/09/2015 6:15 PM EST 0.2 mg Given 06/09/2015 5:58 PM EST 0.2 mg Given 06/09/2015 5:35 PM EST 0.4 mg lactated ringers infusion 1,000 mL 1,000 mL, at 100 mL/hr, Intravenous, CONTINUOUS, Starting on Mon06/09/15 at 1330, Until Mon06/09/15 at 1958, Day of Surgery (Day of Procedure) New Bag 06/09/2015 6:40 PM EST New Bag 06/09/2015 2:00 PM EST 1,000 mLs 100 mL/hr New Bag 06/09/2015 1:30 PM EST 1,000 mLs 100 mL/hr midazolam (PF) (VERSED) 1 mg/mL multi-dose injection PRN, Starting on Mon06/09/15 at 1546, Until Mon06/09/15 at 1842, Sleep, Anesthesia Intra-op, Routine Given 06/09/2015 3:52 PM EST 1 mg Given 06/09/2015 3:46 PM EST 1 mg ondansetron (ZOFRAN) injection PRN, Starting on Mon06/09/15 at 1817, Until Mon06/09/15 at 1842, Nausea, Anesthesia Intra-op, Routine Given 06/09/2015 6:17 PM EST 4 mg propofol (DIPRIVAN) 10 mg/mL bolus injection (Anesthesia) PRN, Starting on Mon06/09/15 at 1558, Until Mon06/09/15 at 1842, Anesthesia Intra-op Given 06/09/2015 6:19 PM EST 20 mg Given 06/09/2015 5:06 PM EST 30 mg Given 06/09/2015 4:42 PM EST 50 mg rocuronium (ZEMURON) multi-dose injection PRN, Starting on Mon06/09/15 at 1558, Until Mon06/09/15 at 1842, Anesthesia Intra-op, Routine Given 06/09/2015 3:58 PM EST 50 mg vancomycin 1 g in dextrose 5% 200 mL 1,000 mg (1 g), Intravenous, ONCE, 1 dose, On Mon06/09/15 at 1400, Maximum infusion rate is 1 gram/hour. If flushing of the face, neck, upper body, arms, and/or back occurs decrease infusion rate by 50% to reduce the severity of symptoms. This medication may have an associated drug lab level. Please see MAR for scheduled level., Routine Given 06/09/2015 4:03 PM EST 1 g documented in this encounter Care Teams Traveling Construction Superintendent Relationship Specialty Start Date End Date Boston Hernandez MD [facility] [address] [place] [address] PCP - General General Internal Medicine 05/27/1511/07 documented as of this encounter
--- OUTSIDE RECORDS SUMMARY | 2024-01-19 15:15 | XMS_ITS | Encounter Summary ---
Author Organization [facility] [place] [address] Care Team Providers Care Director Of Product Design Name Role Phone Boston Hernandez MD Primary Care Provider [phone] Reason for Visit * Reason Comments Follow Up Surgery Encounter Details Date Type Department Care Team (Late st Contact Info) Description 07/23/2015 8:00 AM EST Office Visit Urology at [facility] [place] [address] Ebenezer Patino III, MD [facility] [place] [address] Erectile dysfunction, unspecified erectile dysfunction type Social History Tobacco Use Types Packs/Day [...] Sign Reading Time Taken Comments Blood Pressure 138/78 07/23/2015 7:54 AM EST Pulse 68 07/23/2015 7:54 AM EST Temperature - - Respiratory Rate - - Oxygen Saturation 95% 07/23/2015 7:54 AM EST Inhaled Oxygen Concentration - - Weight - - Height - - Body Mass Index - - documented in this encounter Progress Notes * Ebenezer Patino III, MD - 07/23/2015 8:13 AM EST Mr. Betancur is a 59-year-old gentleman who returns for evaluation approximately six weeks following placement of a three-piece IPP. His states that they were in a local emergency room two or three weeks ago with elevated blood pressure. There was concern for a pulmonary embolus, which was ruled out. In general he is feeling well. He has had no site-specific problems with the IPP including incisional drainage or swelling. Physical examination: The penoscrotal incision is well healed. The cylinders are in a good position in the mid glans. I have activated the device. There is good tumescence of the cylinders with equal filling in the mid glans. The device deactivates well. I have demonstrated the technique to Mrs. Betancur, who appears to be conversant with it. We have discussed some aspects of activation and deactivation and expectations regarding the quality of his erection. She is already expressing some satisfaction with the straightness of his erection compared to preoperatively. The plan on this gentleman is to see him back on an as-needed basis. All questions have been answered to their satisfaction. documented in this encounter Plan of Treatment Upcoming Encounters Date Type Department Care Team (Latest Contact Info) Description 02/01/2024 11:15 AM EDT Telephone Pre Admission Testing at [address] [phone] 02/07/2024 11:20 AM EDT [place] [address] Manoj Vinson MD [facility] [place] [address] 02/08/2024 8:30 AM EDT Hospital Encounter PACU at [address] [address] Manoj Vinson MD [facility] [place] [address] 02/08/2024 8:30 AM EDT - 02/08/2024 11:00 AM EDT Surgery Main OR at [address] [phone] Manoj Vinson MD [facility] [place] [address] ADJ.TISSUE TRANSFER, REARRANGEMENT, 10.1 TO 30 SQ.CM, GENITALIA (WRVU 10.83) Scheduled Procedures Name Priority Associated Diagnoses Date/Ti me ADJ.TISSUE TRANSFER, REARRANGEMENT, 10.1 TO 30 SQ.CM, GENITALIA (WRVU 10.83) Acquired buried penis 02/08/2024 8:30 AM EDT documented as of this encounter Visit Diagnoses Diagnosis Erectile dysfunction, unspecified erectile dysfunction type Acquired buried penis Other specified disorder of penis documented in this encounter Care Teams Director Of Product Design Relationship Specialty Start Date End Date Boston Hernandez MD [facility] [address] [address] PCP - General General Internal Medicine 05/27/1511/07 documented as of this encounter
--- OUTSIDE RECORDS SUMMARY | 2024-01-19 15:15 | XMS_ITS | Encounter Summary ---
Author Organization [facility] Address [address] [place] [address] Care Team Providers Care Tinsmith Helper Name Role Phone Yung Horn MD Primary Care Provider Encounter Details Date Type Department Care Team (Late st Contact Info) Description 07/03/2020 Lab Requisition [facility] Pathology & Laboratory Medicine - [address] [id number] Outr Resulting Lab, Provider Social History Tobacco [...] Procedure Name Priority Date/Time Associated Diagnosis Comments LYME AB Routine 07/03/2020 12:38 EST documented in this encounter Results * LYME AB (07/03/2020 12:38 EST) Lyme Ab Negative Negative 07/06/2020 9:53 EST [facility] Comment:New 3rd generation a ssay in use 12/18/2019 Blood VENOUS BLOOD / Unknown 07/03/2020 12:38 EST 07/04/2020 17:28 EST Provider Outr Resulting Lab IMMUNOLOGY A ND SEROLOGY ORDERABLES [facility] [address] [place] [address] documented in this encounter Visit Diagnoses Not on filedocumented in this encounter Care Teams Tinsmith Helper Relationship Specialty Start Date End Date Yung Horn MD [facility] [place] [address] PCP - General 01/26/18 documented as of this encounter
--- OUTSIDE RECORDS SUMMARY | 2024-01-19 15:15 | XMS_ITS | Encounter Summary ---
Author Organization [facility] Address [address] [place] [address] Care Team Providers Care Technologist Infectious Disease Name Role Phone Yung Horn MD Primary Care Provider [phone] Encounter Details Date Type Department Care Team (Late st Contact Info) Description 07/31/2020 Lab Requisition [place] Pathology & Laboratory Medicine - [facility] [address], [place] [id number] Outr Resulting Lab, Provider Social History Tobacco [...] Procedure Name Priority Date/Time Associated Diagnosis Comments DO NOT ORDER STANDALONE - BROAD COVID TEST Today 07/31/2020 8:31 EST COVID-19 TESTING Routine 07/31/2020 8:31 EST documented in this encounter Results * DO NOT ORDER STANDALONE - BROAD COVID TEST (07/31/2020 8:31 EST) COVID-19 rt-PCR Result NEGATIVE Negative 08/02/2020 7:45 EST [facility] Comment: 2019-novel Coronavirus (2019-nCoV) not detected by the qRT-PCR assay. Consider testing for other respiratory viruses or re-collecting for 2019-nCoV testing. Note: Optimum timing for peak viral levels during infections caused by 2019-nCoV have not been determined. Collection of multiple specimens from the same patient may be necessary to detect the virus. Limitations Positive results are indicative of active infection with SARS-CoV-2 but do not rule out bacterial infection or co-infection with other viruses. The agent detected may not be the definite cause of disease. In addition, detection of viral RNA may not indicate the presence of infectious virus or that SARS-CoV-2 is the causative agent for clinical symptoms. Negative results do not preclude SARS-CoV-2 infection and should not be used as the sole basis for patient management decisions. Negative results must be combined with clinical observations, patient history, and epidemiological information. False negative results may also occur if amplification inhibitors are present in the specimen or if inadequate numbers of organisms are present in the specimen. Optimum specimen types and timing for peak viral levels during infections caused by SARS-CoV-2 have not been fully determined. Collection of multiple specimens (types and time points) from the same patient may be necessary to detect the virus. The test was validated for use with upper respiratory specimens obtained via nasopharyngeal or oropharyngeal swabs in VTM, UTM, M4, M5, M6, saline, and MTM media. The performance of this test has not been established for other specimens. Specimens collected using other FDA recommended Specimen Collection Materials listed in the FDA COVID-19 [employer] communication (October 03, 2019) are processed with the caveat that they were not all validated for use with this test and the result must be interpreted in this context. Furthermore, a false negative results may occur if a specimen is improperly collected, transported or handled. If the virus mutates in the RT-PCR target region, SARS-CoV-2 may not be detected or may be detected less predictably. Inhibitors or other types of interference may produce a false negative result. An interference study evaluating the effect of common cold medications was not performed. This test is not FDA-cleared but its performance characteristics were established by our CLIA-certified, CAP-accredited, high complexity laboratory in accordance with CLIA regulations, [employer] [place] (CAP) guidelines (Sep 26, 2019), and FDA guidance (Sep 07, 2019). This test is only for use under the Food and Drug Administration's Emergency Use Authorization. Swab ENTIRE NASOPHARYNX / Unknown 07/31/2020 8:31 EST 07/31/2020 15:47 EST Provider Outr Resulting Lab MICROBIOLOGY - GENERAL ORDERABLES [facility] [place] * COVID-19 TESTING (07/31/2020 8:31 EST) COVID-19 rt-PCR Result NEGATIVE Negative 08/02/2020 10:18 EST [facility] Comment: 2019-novel Coronavirus (2019-nCoV) not detected by the qRT-PCR assay. Consider testing for other respiratory viruses or re-collecting for 2019-nCoV testing. Note: Optimum timing for peak viral levels during infections caused by 2019-nCoV have not been determined. Collection of multiple specimens from the same patient may be necessary to detect the virus. Limitations Positive results are indicative of active infection with SARS-CoV-2 but do not rule out bacterial infection or co-infection with other viruses. The agent detected may not be the definite cause of disease. In addition, detection of viral RNA may not indicate the presence of infectious virus or that SARS-CoV-2 is the causative agent for clinical symptoms. Negative results do not preclude SARS-CoV-2 infection and should not be used as the sole basis for patient management decisions. Negative results must be combined with clinical observations, patient history, and epidemiological information. False negative results may also occur if amplification inhibitors are present in the specimen or if inadequate numbers of organisms are present in the specimen. Optimum specimen types and timing for peak viral levels during infections caused by SARS-CoV-2 have not been fully determined. Collection of multiple specimens (types and time points) from the same patient may be necessary to detect the virus. The test was validated for use with upper respiratory specimens obtained via nasopharyngeal or oropharyngeal swabs in VTM, UTM, M4, M5, M6, saline, and MTM media. The performance of this test has not been established for other specimens. Specimens collected using other FDA recommended Specimen Collection Materials listed in the FDA COVID-19 [employer] communication (October 03, 2019) are processed with the caveat that they were not all validated for use with this test and the result must be interpreted in this context. Furthermore, a false negative results may occur if a specimen is improperly collected, transported or handled. If the virus mutates in the RT-PCR target region, SARS-CoV-2 may not be detected or may be detected less predictably. Inhibitors or other types of interference may produce a false negative result. An interference study evaluating the effect of common cold medications was not performed. This test is not FDA-cleared but its performance characteristics were established by our CLIA-certified, CAP-accredited, high complexity laboratory in accordance with CLIA regulations, [employer] [place] (CAP) guidelines (Sep 26, 2019), and FDA guidance (Sep 07, 2019). This test is only for use under the Food and Drug Administration's Emergency Use Authorization. Performing Lab [facility] 08/02/2020 10:18 EST [facility] Swab 07/31/2020 8:31 EST 07/31/2020 15:47 EST Provider Outr Resulting Lab MICROBIOLOGY - GENERAL ORDERABLES Performing Organization Address City/State/[facility] Co de Phone Number [facility] [address] [place] [address] [facility] [place] documented in this encounter Visit Diagnoses Not on filedocumented in this encounter Care Teams Technologist Infectious Disease Relationship Specialty Start Date End Date Yung Horn MD [place] [place] [address] PCP - General 01/26/18 documented as of this encounter
--- OUTSIDE RECORDS SUMMARY | 2024-01-19 15:15 | XMS_ITS | Encounter Summary ---
Author Organization [facility] [place] [address] Care Team Providers Care Program/Music Director Name Role Phone Maritza Faustin MD Primary Care Provider [phone] Reason for Visit * Reason Comments Abnormal Penile Curvature Encounter Details Date Type Department Care Team (Late st Contact Info) Description 02/18/2015 8:00 AM EDT Office Visit Urology at [facility] [place] [address] Ebenezer Patino III, [place] [address] Peyronie's disease Discharge Disposition: Home Social History Tobacco Use Types Packs/Day Years Used Date Smoking Tobacco: Never Assessed Sex and Gender Information Value Date Recorded Sex Assigned at Not on file Gender Identity Not on file Sexual Orientation Not on file documented as of this encounter Last Filed Vital Signs Vital Sign Reading Time Taken Comments Blood Pressure 133/79 02/18/2015 7:43 AM EDT Pulse 67 02/18/2015 7:43 AM EDT Temperature - - Respiratory Rate - - Oxygen Saturation 96% 02/18/2015 7:43 AM EDT Inhaled Oxygen Concentration - - Weight 108.9 kg (240 lb) 02/18/2015 7:43 AM EDT Height - - Body Mass Index - - documented in this encounter Progress Notes * Ebenezer Patino III, MD - 02/18/2015 8:28 AM EDT Mr. Betancur is a 59-year-old gentleman I am seeing at the request of Dr. Faustin. He has been sent for evaluation of Peyronie's disease and erectile dysfunction. This gentleman and his state that he has had between a two and four month history of a dorsally based penile curvature. He states that his erection deflects between 30 and 45 degrees dorsally from the mid shaft of his penis. This is associated with some discomfort. He does not recall any episodes of sexual misadventure or trauma though he may have rolled over on his erection one evening. He has had a longer standing history of erectile dysfunction which has responded in part to Cialis. He does have difficulty achieving a full erection and more importantly maintaining it. He was seen by a urologist (Dr. Sharma) in [place], [place]. He made the diagnosis of Peyronie's disease and suggested that this gentleman would be best served with an implant. I do not have his records for review. Mr. Betancur states that he has no pain at rest but that the penis remains somewhat tender. He takes Motrin for cervical disk disease. His past medical history is significant for diabetes which is controlled on oral hypoglycemic. He has taken insulin in the past. He also has a history of hyperlipidemia and anxiety. I have reviewed his medication lists and allergies. Physical Examination: In general he is a well-developed, well-nourished overweight gentleman in no acute distress. Examination of the Abdomen: It is soft, nontender, there are no masses. Examination of the Genitalia: The penis is a normal male phallus. He is uncircumcised. The meatus is in the orthotopic location. There is a distinct dorsally based plaque in the mid shaft of the penis. This measures approximately 1 inch x 1 inch. Examination of the Scrotum: Both testicles are descended and there are no palpable lesions. Assessment: This 59-year-old gentleman with Peyronie's plaque and preexisting erectile dysfunction. We have discussed the menu of options including oral therapies, injection therapy with Xiaflex and a variety of surgical options including plication surgery and placement of an inflatable penile prosthesis. I agree with the referring urologist that due to this man's worsening ED that implant surgery may be the most appropriate option. We have discussed aspects of implant surgery including the risk of infection and the need for explantation. We discussed convalescence and time to activation. I am concerned that it may be a little premature to consider implant surgery as the Peyronie's is still evolving. I have recommended that he go on a course of vitamin E and continue on the NSAIDs. I would like to see him back in approximately two months at which time he and his will bring photographs of his erections. We would begin to consider surgery for the end of the year or early next. At the end of this discussion literature was provided to the patient. All questions have been answered to his and his 's satisfaction. documented in this encounter Plan of Treatment Upcoming Encounters Date Type Department Care Team (Latest Contact Info) Description 02/01/2024 11:15 AM EDT Telephone Pre Admission Testing at [address] [address] 02/07/2024 11:20 AM EDT [place] [address] Manoj Vinson MD [facility] [place] [address] 02/08/2024 8:30 AM EDT Hospital Encounter PACU at [address] [address] Manoj Vinson MD [facility] [place] [address] 02/08/2024 8:30 AM EDT - 02/08/2024 11:00 AM EDT Surgery Main OR at [address] [address] Manoj Vinson MD [facility] [place] [address] ADJ.TISSUE TRANSFER, REARRANGEMENT, 10.1 TO 30 SQ.CM, GENITALIA (WRVU 10.83) Scheduled Procedures Name Priority Associated Diagnoses Date/Ti me ADJ.TISSUE TRANSFER, REARRANGEMENT, 10.1 TO 30 SQ.CM, GENITALIA (WRVU 10.83) Acquired buried penis 02/08/2024 8:30 AM EDT documented as of this encounter Visit Diagnoses Diagnosis Peyronie's disease Acquired buried penis Other specified disorder of penis documented in this encounter Care Teams Program/Music Director Relationship Specialty Start Date End Date Maritza Faustin MD [address] [place] [address] PCP - General 07/25/14 05/26/15 documented as of this encounter
--- OUTSIDE RECORDS SUMMARY | 2024-01-19 15:15 | XMS_ITS | Encounter Summary ---
Author Organization [facility] [place] [address] Care Team Providers Care Tool Shaper Setup Operator Name Role Phone Maritza Faustin MD Primary Care Provider [phone] Reason for Visit * Reason Comments Abnormal Penile Curvature Encounter Details Date Type Department Care Team (Late st Contact Info) Description 04/23/2015 9:20 AM EDT Office Visit Urology at [facility] [place] [address] Ebenezer Patino III, [place] [facility] [place] [address] Erectile dysfunction, unspecified erectile dysfunction type; Peyronie's disease Social History Tobacco Use Types Packs/Day Years Used Date Smoking Tobacco: Never Assessed Sex and Gender Information Value Date Recorded Sex Assigned at Not on file Gender Identity Not on file Sexual Orientation Not on file documented as of this encounter Last Filed Vital Signs Vital Sign Reading Time Taken Comments Blood Pressure 128/73 04/23/2015 8:56 AM EDT Pulse 55 04/23/2015 8:56 AM EDT Temperature - - Respiratory Rate 20 04/23/2015 8:56 AM EDT Oxygen Saturation 97% 04/23/2015 8:56 AM EDT Inhaled Oxygen Concentration - - Weight 108.9 kg (240 lb) 04/23/2015 8:56 AM EDT Height 180.3 cm (5' 11) 04/23/2015 8:56 AM EDT Body Mass Index 33.47 04/23/2015 8:56 AM EDT documented in this encounter Progress Notes * Ebenezer Patino III, MD - 04/23/2015 9:44 AM EDT Mr. Betancur is a 59-year-old gentleman who returns for followup evaluation of erectile dysfunction and Peyronie disease. He has photographs of his erections. This shows between a 70 and 90 degree dorsal curvature with some left-sided deflection. and Mrs. Betancur have reviewed the IPP DVD. Physical Examination: Examination of the penis reveals a plaque in the midshaft of the penis. Assessment: Vnwvr-[id number]-otpe-old gentleman with ED that is likely secondary to his diabetes and Peyronie disease. We discussed the options for therapy, which would include consideration of Xiaflex injection therapy versus placement of an IPP. Based on his underlying ED, he is likely a candidate for implant surgery. We discussed the aspects of IPP surgery including hospitalization, convalescence, and the risks including infection and the need for explantation. I have emphasized that expectation of erectile length is oftentimes an issue and that he would have some diminution in the length of his erection from his pre ED and Peyronie status. At the end of this discussion, all questions had been answered to and Mrs. Betancur's satisfaction. We will begin scheduling this for some time in June. All questions have been answered. documented in this encounter Miscellaneous Notes * Addendum Note - Arabella Hernandez LPN - 04/23/2015 10:27 AM EDTAddended by: ARABELLA HERNANDEZ on: 04/23/2015 10:27 AM Modules accepted: Orders documented in this encounter Plan of Treatment Upcoming Encounters Date Type Department Care Team (Latest Contact Info) Description 02/01/2024 11:15 AM EDT Telephone Pre Admission Testing at [address] [phone] 02/07/2024 11:20 AM EDT [place] [address] Manoj Vinson MD [facility] [place] [address] 02/08/2024 8:30 AM EDT Hospital Encounter PACU at [address] [phone] Manoj Vinson MD [facility] [place] [address] 02/08/2024 8:30 AM EDT - 02/08/2024 11:00 AM EDT Surgery Main OR at [address] [address] Manoj Vinson MD [facility] [address] ADJ.TISSUE TRANSFER, REARRANGEMENT, 10.1 TO 30 SQ.CM, GENITALIA (WRVU 10.83) Scheduled Procedures Name Priority Associated Diagnoses Date/Ti me ADJ.TISSUE TRANSFER, REARRANGEMENT, 10.1 TO 30 SQ.CM, GENITALIA (WRVU 10.83) Acquired buried penis 02/08/2024 8:30 AM EDT documented as of this encounter Procedures Procedure Name Priority Date/Time Associated Diagnosis Comments URINE CULTURE Routine 04/23/2015 10:24 AM EDT Peyronie's disease documented in this encounter Results * Urine culture Clean Catch Urine (04/23/2015 10:24 AM EDT) Urine Culture No growth (Less than 1,000 cfu/ml). [facility] ANTONIO BENITES Urine specimen obtained by clean catch procedure (specimen) 04/23/2015 10:24 AM EDT 04/23/2015 11:26 AM EDT Narrative Resulting Agency Comment Spec In Lab Ebenezer Patino III, MD MICROBIOLOGY - [facility] ORDERABLES LUIS ANTONIO BENITES documented in this encounter Visit Diagnoses Diagnosis Erectile dysfunction, unspecified erectile dysfunction type Peyronie's disease Acquired buried penis Other specified disorder of penis documented in this encounter Care Teams Tool Shaper Setup Operator Relationship Specialty Start Date End Date Maritza Faustin MD [address] [place] [address] PCP - General 07/25/14 05/26/15 documented as of this encounter
--- OUTSIDE RECORDS SUMMARY | 2024-01-19 15:15 | XMS_ITS | Encounter Summary ---
Author Organization [facility] Address [address] [place] [address] Care Team Providers Care Road Service Locksmith Name Role Phone Yung Horn MD Primary Care Provider [phone] Encounter Details Date Type Department Care Team (Late st Contact Info) Description 08/15/2021 Lab Requisition [facility] Pathology & Laboratory Medicine - [facility] [address] [place] [address] Krystin Coe, DO [address] [place] [address] Dysphagia, unspecified Social History Tobacco Use Types Packs/Day Years [...] Priority Date/Time Associated Diagnosis Comments SURGICAL PATHOLOGY Today 08/13/2021 8: 16 EST Dysphagia, unspecified documented in this encounter Results * SURGICAL PATHOLOGY (08/13/2021 8:16 EST) Note to Patient The following pathology results have been interpreted by your pathologist and may be available to you before your health provider has had the opportunity to review them. Please allow time for your provider to receive these results and explore management options, if applicable. 08/17/2021 9:11 EST [facility] Final Diagnosis A. GASTROESOPHAGEAL JUNCTION, BIOPSY: - Reactive squamocolumnar junctional mucosa. - Negative for intestinal metaplasia. - Negative for dysplasia or malignancy. 08/17/2021 9:11 [facility] Attestation There was significant resident/fellow involvement in the diagnostic evaluation of this case. By the signature below, the attending physician certifies that they have personally conducted a gross and/or microscopic examination of the described specimens and rendered or confirmed the above diagnosis. 08/17/2021 9:11 [facility] at 0911 Clinical History Dysphagia, hx of stricture 08/17/2021 9:11 [facility] Gross Description A. Received in formalin labelled with proper patient identification (initials B, J) and GE junction is a pale hernandez-white tissue (0.4 x 0.3 x 0.3 cm). Submitted intact in A1. Mo Diehl 08/15/2021 13:18 08/17/2021 9:11 [facility] Resident/Alexy w: Sharla Nichols DO 08/17/2021 9:11 [facility] Performing Lab [facility] 9:11 [facility] Scanned Images 08/17/2021 9:11 [facility] Tissue ENTIRE ESOPHAGO-GASTRIC MUCOSAL JUNCTION / Unknown 08/13/2021 8:16 EST 08/15/2021 12:16 EST Krystin Coe DO PATHOLOGY ORDERABLES [facility] [address] [place] [address] documented in this encounter Visit Diagnoses Diagnosis Dysphagia, unspecified documented in this encounter Care Teams Road Service Locksmith Relationship Specialty Start Date End Date Yung Horn MD [address] [place] [address] PCP - General 01/26/18 documented as of this encounter
--- OUTSIDE RECORDS SUMMARY | 2024-01-19 15:15 | XMS_ITS | Encounter Summary ---
Author Organization [facility] Address [address] [place] [address] Care Team Providers Care Enterprise Engineer Name Role Phone Yung Horn MD Primary Care Provider [phone] Encounter Details Date Type Department Care Team (Late st Contact Info) Description 01/26/2018 Orders Only [facility] Hand & Upper Extremity Program - [address] [address] oRosevelt Miller MD MSc FRCSC [address] [place] [address] Right knee pain, unspecified chronicity (Primary Dx) Social History Tobacco Use Types Packs/Day Years Used Date Smoking Tobacco: Never Assessed Sex and Gender Information Value Date Recorded Sex Assigned at Not on file Gender Identity Not on file Sexual Orientation Not on file documented as of this encounter Plan of Treatment Not on file documented as of this encounter Procedures Procedure Name Priority Date/Time Associated Diagnosis Comments KNEE 4 OR MORE VIEWS Routine 01/29/2018 13:36 EDT documented in this encounter Results * KNEE 4 OR MORE VIEWS (01/29/2018 13:36 EDT) Anatomical Region Laterality Modality Other 01/29/2018 13:3 6 EDT 01/29/2018 14:54 EDT Narrative 01/29/2018 14:54 EDT KNEE 4 OR MORE VIEWS, KNEE 4 OR MORE VIEWS ??01/29/2018 1:36 PM SIGNS AND SYMPTOMS/COMMENTS: M25.561-Pain in right knee-ICD-10; right knee pain COMPARISON: None. FINDINGS: Right knee: PA weightbearing views with and without flexion, lateral and axial views show no evidence of acute fracture, there is a trace suprapatellar right knee joint effusion. There are moderate degenerative changes in the medial femorotibial and patellofemoral compartments, mild degenerative changes seen in the lateral femorotibial compartment. Left knee: PA weightbearing views with and without flexion, lateral and axial views show no evidence of acute fracture, there is a trace suprapatellar left knee joint effusion. There are moderate degenerative changes in the medial femorotibial and patellofemoral compartments, mild degenerative changes seen in the lateral femorotibial compartment. Procedure Note Marquis Chaudhari MD - 01/29/2018 KNEE 4 OR MORE VIEWS, KNEE 4 OR MORE VIEWS 01/29/2018 1:36 PM SIGNS AND SYMPTOMS/COMMENTS: M25.561-Pain in right knee-ICD-10; right knee pain COMPARISON: None. FINDINGS: Right knee: PA weightbearing views with and without flexion, lateral and axial views show no evidence of acute fracture, there is a trace suprapatellar right knee joint effusion. There are moderate degenerative changes in the medial femorotibial and patellofemoral compartments, mild degenerative changes seen in the lateral femorotibial compartment. Left knee: PA weightbearing views with and without flexion, lateral and axial views show no evidence of acute fracture, there is a trace suprapatellar left knee joint effusion. There are moderate degenerative changes in the medial femorotibial and patellofemoral compartments, mild degenerative changes seen in the lateral femorotibial compartment. Roosevelt Miller MD MSc FRCSC IMG DIAG NOSTIC IMAGING ORDERABLES documented in this encounter Visit Diagnoses Diagnosis Right knee pain, unspecified chronicity- Primary documented in this encounter Care Teams Enterprise Engineer Relationship Specialty Start Date End Date Yung Horn MD [address] [place] [address] PCP - General 01/26/18 documented as of this encounter
--- OUTSIDE RECORDS SUMMARY | 2024-01-19 15:15 | XMS_ITS | Encounter Summary ---
Author Organization [facility] Address [address] [place] [address] Care Team Providers Care Wind Farm Electrical Systems Designer Name Role Phone Yung Horn MD Primary Care Provider [phone] Encounter Details Date Type Department Care Team (Late st Contact Info) Description 07/04/2020 Lab Requisition [facility] Pathology & Laboratory Medicine - [address] [address] Outr Resulting Lab, Provider Social History Tobacco [...] Procedure Name Priority Date/Time Associated Diagnosis Comments CHRONIC HEPATITIS PROFILE, UNKNOWN TYPE Routine 07/03/2020 5:55 EST documented in this encounter Results * CHRONIC HEPATITIS PROFILE, UNKNOWN TYPE (07/03/2020 5:55 EST) Hep B Surface Ag Negative Negative 07/06/20 9:56 EST [facility] Hep B Surface Ab, Quantitative <3.1 See Note mIU/mL 07/06/2020 9:56 EST [facility] Comment: Reference Range for Hep B Surface Ab, Quant: Positive: >= 10.0 mIU/mL Negative: ??< 10.0 mIU/mL Patient is presumed to not be immune to infection with Hepatitis B Virus. Hep B Surface Ab, Qualitative Negative See Note 07/06/2020 9:56 EST [facility] Comment: Reference Range for Hep B Surface Ab, Qual: Unvaccinated: ??Negative Vaccinated: ??Positive Hepatitis B Core Ab, Total Negative Negative 07/06/2020 9:56 EST [facility] Hep C Antibody Negative Negative 07/06/2020 9:56 EST [facility] Blood VENOUS BLOOD / Unknown 07/03/2020 5:55 EST 07/04/2020 17:27 EST Provider Outr Resulting Lab CHEMISTRY & BLOOD GAS ORDERABLES Performing Organization Address City/State/[facility] Co de Phone Number [facility] [address] [place] [address] documented in this encounter Visit Diagnoses Not on filedocumented in this encounter Care Teams Wind Farm Electrical Systems Designer Relationship Specialty Start Date End Date Yung Horn MD [address] [place] [address] PCP - General 01/26/18 documented as of this encounter
--- OUTSIDE RECORDS SUMMARY | 2024-01-19 15:15 | XMS_ITS | Encounter Summary ---
Author Organization [facility] Address [address] [place] [address] Care Team Providers Care Gum Puller Name Role Phone Yung Honr MD Primary Care Provider [phone] Reason for Visit * (Routine/Next Available) - Receiving Office to Obtain Authorization Specialty Diagnoses / Procedures Referred By Marisela ramesh Referred To Contact Procedures XR OUTSIDE IMAGES MSK Imaging, External Referral ID Status Reason Start Date Expiration Date Visits Requested Visits Authorized [id number] Receiving Office to Obtain Authorization 2 1 1 Encounter Details Date Type Department Care Team (Latest Contact Info) Description 04/20/2022 0:15 EDT - 04/20/2022 23:59 EDT Hospital Encounter [facility] Secondary Reads [place] Discharge Disposition: Home or [...] Comments XR OUTSIDE IMAGES MSK Routine 04/20/2022 6:39 EDT documented in this encounter Results * XR OUTSIDE IMAGES MSK (04/20/2022 6:39 EDT) Narrative 04/21/2022 6:39 EDT This is a non-reportable exam. External Imaging IMG OTHER IMAGING OR DERABLES documented in this encounter Visit Diagnoses Not on filedocumented in this encounter Care Teams Gum Puller Relationship Specialty Start Date End Date Yung Horn MD [address] [place] [address] PCP - General 01/26/18 documented as of this encounter
--- OUTSIDE RECORDS SUMMARY | 2024-01-19 15:15 | XMS_ITS | Clinical Summary ---
Author Organization [facility] Address [address] [place] [address] Care Team Providers Care Radioisotope Production Operator Name Role Phone Yung Horn MD Primary Care Provider [phone] Allergies Active Allergy Reactions Criticality Noted Date Comments Adhesive Other (See Comments) 01/29/2018 Red itchy blisters Medications Medication Sig Dispensed Refills Start Date End Date Status metFORMIN (GLUCOPHAGE) 500 mg tablet Take 1,000 mg by mouth 2 times daily. Active lisinopril (PRINIVIL, ZESTRIL) 2.5 mg tablet Take 2.5 mg by mouth daily. Active pantoprazole (PROTONIX) 40 mg tablet Take 40 mg by mouth daily. Active venlafaxine (EFFEXOR-XR) 150 mg XR capsule Take 150 mg by mouth daily. Active aspirin chewable 81 mg tablet Take 81 mg by mouth daily. Active gabapentin (NEURONTIN) 600 mg tablet Take 600 mg by mouth as needed. Active Active Problems Problem Noted Date Diagnosed Date Bilateral primary osteoarthritis of knee 018 Surgical History Surgery Date Site/Laterality Comments ROTATOR CUFF REPAIR Medical History Medical History Date Comments Knee pain Wears glasses Hearing loss Arthritis Back pain Gout Joint pain Joint swelling Numbness Depression Diabetes mellitus ([facility]) Anxiety Family History Medical History Relation Comments Diabetes Mother Relation Status Comments Mother Social History Tobacco Use Types Packs/Day Years Used Date Smoking Tobacco: Never Assessed Interpersonal Safety Answer Date Record ed Physically Hurt Never 02/10/2020 Verbally Threaten Not on file 02/10/2020 Sex and Gender Information Value Date Recorded Sex Assigned at Not on file Gender Identity Not on file Sexual Orientation Not on file Obstetrics History Last Filed Vital Signs Vital Sign Reading Time Taken Comments Blood Pressure - - Pulse - - Temperature - - Respiratory Rate - - Oxygen Saturation - - Inhaled Oxygen Concentration - - Weight 108.9 kg (240 lb) 01/29/2018 1402 EDT Height 180.3 cm (5' 11) 01/29/2018 1402 EDT Body Mass Index 33.47 01/29/2018 1402 EDT Plan of Treatment Health Maintenance Due Date Last Done Comments Hepatitis C Screen 1955 RSV Immunization ( o r 60+ Years) (1 - 1-dose 60+ series) 2016 Fall Risk Screening 2021 COVID-19 Vaccine (2022- season) 2023 Care Teams Radioisotope Production Operator Relationship Specialty Start Date End Date Yung Horn MD [address] [place] [address] PCP - General 01/26/18
--- OUTSIDE RECORDS SUMMARY | 2024-01-19 15:15 | XMS_ITS | Encounter Summary ---
Author Organization [facility] Address [address] [place] [address] Care Team Providers Care Supply Chain Procurement Manager Name Role Phone Ynug Horn MD Primary Care Provider [phone] Encounter Details Date Type Department Care Team (Latest Contact Info) Description 10/30/[address] [facility] Pathology & Laboratory Medicine - [facility] [address] [place] [address] Krystin Coe, DO [address] [place], [place] [address] Obesity, unspecified; Shortness of breath; Other postprocedural complications and disorders of digestive system; Type 2 diabetes mellitus with hyperglycemia (HCC-CMS); Nonalcoholic steatohepatitis (HERR); Unspecified cirrhosis of liver (HCC-CMS); Alcoholic cirrhosis of liver without ascites (HCC-CMS); Type 2 diabetes mellitus without complications (HCC-CMS) Social History Tobacco Use Types Packs/Day Years [...] Date/Time Associated Diagnosis Comments SURGICAL PATHOLOGY Today 10/30/2020 9: 06 EDT Obesity, unspecified Shortness of breath Other postprocedural complications and disorders of digestive system Type 2 diabetes mellitus with hyperglycemia (HCC-CMS) Nonalcoholic steatohepatitis (HERR) Unspecified cirrhosis of liver (HCC-CMS) Alcoholic cirrhosis of liver without ascites (HCC-CMS) Type 2 diabetes mellitus without complications (HCC-CMS) documented in this encounter Results * SURGICAL PATHOLOGY (10/30/2020 9:06 EDT) Final Diagnosis A. SMALL BOWEL, JEJUNUM, ANASTOMOSIS, BIOPSY: - Small bowel mucosa with no specific pathologic features. B. STOMACH, BODY, BIOPSY: - Gastric body type mucosa with no specific pathologic features. C. STOMACH, HIATAL HERNIA, BIOPSY: - Gastric body type mucosa with no specific pathologic features. D. GASTROESOPHAGEAL JUNCTION, BIOPSY: - Squamous mucosa with reflux esophagitis. E. ESOPHAGUS, DISTAL, BIOPSY: - Squamous mucosa with reflux esophagitis. F. SMALL INTESTINE, ILEOCECAL VALVE, BIOPSY: - Small bowel mucosa with no specific pathologic features. 11/03/2020 12:05 [facility] Attestation There was significant resident/fellow involvement in the diagnostic evaluation of this case. By the signature below, the attending physician certifies that they have personally conducted a gross and/or microscopic examination of the described specimens and rendered or confirmed the above diagnosis. 11/03/2020 12:05 [facility] at 1205 Clinical History Anastomotic stricture of the gastrojejunostomy site; history of tubular adenoma; diverticula 11/03/2020 12:05 [facility] Gross Description A. Received in formalin labelled with proper patient identification (initials B, J) and gastrojejunal anastomosis Bx is a single fragment of pink-hernandez soft tissue (0.5 x 0.4 x 0.2 cm). The specimen is entirely submitted in A1. B. Received in formalin labelled with proper patient identification (initials B, J) and body of stomach Bx is a single fragment of pink-hernandez soft tissue (0.3 x 0.3 x 0.2 cm). The specimen is entirely submitted in B1. C. Received in formalin labelled with proper patient identification (initials B, J) and body of hiatal hernia Bx is a single fragment of pink-hernandez soft tissue (0.3 x 0.2 x 0.2 cm). The specimen is entirely submitted in C1. Specimen done D. Received in formalin labelled with proper patient identification (initials B, J) and GE junction Bx are 2 fragments of hernandez-ho soft tissue (0.2 x 0.2 x 0.2 cm and 0.3 x 0.2 x 0.2 cm). The specimen is entirely submitted in D1. E. Received in formalin labelled with proper patient identification (initials B, J) and distal esophagus Bx is a single fragment of ho-white soft tissue (0.6 x 0.3 x 0.2 cm). The specimen is entirely submitted in E1. F. Received in formalin labelled with proper patient identification (initials B, J) and Bx ileocecal valve are 2 fragments of pink-hernandez soft tissue (0.2 x 0.2 x 0.2 cm and 0.7 x 0.3 x 0.2 cm). The specimen is entirely submitted in F1. EUGENIO HERNÁNDEZ(ASCP) 10/30/2020 16:36 11/03/2020 12:05 EDT [facility] Resident/Fell ow: Ismael Mcmahan MD 11/03/2020 12:05 T [facility] Performing Lab [facility] 11/03/2020 12:05 [facility] Scanned Images 11/03/2020 12:05 [facility] Tissue ENTIRE SMALL INTESTI NE / Unknown 10/30/2020 9:06 EDT 10/30/2020 16:03 EDT Tissue specimen (specimen) STOMACH STRUCTURE / Unknown 10/30/2020 9:06 EDT 10/30/2020 16:03 EDT Tissue specimen (specimen) HIATAL HERNIA / Unknown 10/30/2020 9:06 EDT 10/30/2020 16:03 EDT Tissue specimen (specimen) CARDIOESOPHAGEAL JUNCTION STRUCTURE / Unknown 10/30/2020 9:06 EDT 10/30/2020 16:03 EDT Tissue specimen (specimen) ESOPHAGEAL STRUCTURE / Unknown 10/30/2020 9:06 EDT 10/30/2020 16:03 EDT Tissue specimen (specimen) STRUCTURE OF SMALL INTESTINE / Unknown 10/30/2020 9:06 EDT 10/30/2020 16:03 EDT Krystin Coe DO PATHOLOGY ORDERABLES [facility] [address] [place] [address] documented in this encounter Visit Diagnoses Diagnosis Obesity, unspecified Shortness of breath Other postprocedural complications and disorders of digestive system Type 2 diabetes mellitus with hyperglycemia (HCC-CMS) Type II or unspecified type diabetes mellitus without mention of complication, not stated as uncontrolled Nonalcoholic steatohepatitis (HERR) Other chronic nonalcoholic liver disease Unspecified cirrhosis of liver (HCC-CMS) Alcoholic cirrhosis of liver without ascites (HCC-CMS) Alcoholic cirrhosis of liver Type 2 diabetes mellitus without complications (HCC-CMS) Type II or unspecified type diabetes mellitus without mention of complication, not stated as uncontrolled documented in this encounter Care Teams Supply Chain Procurement Manager Relationship Specialty Start Date End Date Yung Horn MD [address] [place] [address] PCP - General 01/26/18 documented as of this encounter
--- OUTSIDE RECORDS SUMMARY | 2024-01-19 15:15 | XMS_ITS | Encounter Summary ---
Author Organization [facility] Address [address] [place] [address] Care Team Providers Care Cable Installation Manager Name Role Phone Yung Horn MD Primary Care Provider [phone] Encounter Details Date Type Department Care Team (Late st Contact Info) Description 12/22/2020 Lab Requisition [facility] Pathology & Laboratory Medicine - [place] [address] [place] [address] Krystin Coe, DO [address] [place] [address] Encounter for other general examination Social History Tobacco Use Types Packs/Day Years [...] Date/Time Associated Diagnosis Comments SURGICAL PATHOLOGY Today 12/22/2020 10 :35 EDT Encounter for other general examination documented in this encounter Results * SURGICAL PATHOLOGY (12/22/2020 10:35 EDT) Final Diagnosis A. GALLBLADDER, CHOLECYSTECTOMY: - Chronic cholecystitis - Cholelithiasis B. LIVER, BIOPSY: - Subcapsular liver tissue with thermal cautery artifact - At least one portal tract with mild chronic inflammation SEE COMMENT 12/25/2020 15:45 EDT [facility] Diagnosis Comment No clinical history or indication for liver biopsy is received with this case. Subcapsular tissue is suboptimal for medical liver evaluation and thermal cautery artifact additionally limits this sample. 12/25/2020 15:45 [facility] Attestation There was significant resident/fellow involvement in the diagnostic evaluation of this case. By the signature below, the attending physician certifies that they have personally conducted a gross and/or microscopic examination of the described specimens and rendered or confirmed the above diagnosis. 12/25/2020 15:45 [facility] at 1545 Clinical History Not given 12/25/2020 15:45 [facility] Gross Description A. Received in formalin labelled with proper patient identification (initials B, J ) and gallbladder is a previously incised gallbladder (9.5 x 3.4 x 1.5 cm). The cystic duct margin is inked. The serosa is ho purple mottled and hyperemic. The mucosa is yellow green soft velvety with an average wall thickness of 0.2 cm. Within the cavity, is an aggregate of black multifaceted gallstones (1.6 cm in greatest dimension). The cystic duct lumen appears patent. The cystic duct margin, en face, and 2 client representative sections are submitted in A1. B. Received in formalin labelled with proper patient identification (initials B, J) and liver Bx is a wedge of liver (1.2 x 1.0 x 0.5 cm). No nodules or lesions are present. The specimen is trisected and submitted in B1. EUGENIO ROCKWELL(ASCP) 12/23/2020 9:04 12/25/2020 15:45 [facility] Resident/Alexy w: Ivory Mohr MD 12/25/2020 15:45 [facility] Performing Lab [facility] 12/25/2020 15:45 [facility] Scanned Images 12/25/2020 15:45 [facility] Tissue ENTIRE LIVER / Unknown 12/22/2020 10:35 EDT 12/22/2020 17:25 EDT Tissue specimen (specimen) LIVER STRUCTURE / Unknown 12/22/2020 10:35 EDT 12/22/2020 17:25 EDT Krystin Coe DO PATHOLOGY ORDERABLES [facility] [address] [place] [address] documented in this encounter Visit Diagnoses Diagnosis Encounter for other general examination documented in this encounter Care Teams Cable Installation Manager Relationship Specialty Start Date End Date Yung Horn MD [facility] [place] [address] [place] [address] PCP - General 01/26/18 documented as of this encounter
--- OUTSIDE RECORDS SUMMARY | 2024-01-19 15:15 | XMS_ITS | Encounter Summary ---
Author Organization [facility] Address [address] [place] [address] Care Team Providers Care Fire Eater Name Role Phone Yung Horn MD Primary Care Provider [phone] Reason for Visit * (Routine/Next Available) - Receiving Office to Obtain Authorization Specialty Diagnoses / Procedures Referred By Marisela ramesh Referred To Contact Procedures XR OUTSIDE IMAGES MSK Imaging, External Referral ID Status Reason Start Date Expiration Date Visits Requested Visits Authorized [id number] Receiving Office to Obtain Authorization 2 1 1 Encounter Details Date Type Department Care Team (Latest Contact Info) Description 04/20/2022 0:10 EDT - 04/20/2022 0:14 EDT Hospital Encounter [facility] Secondary Reads [place] Discharge Disposition: Home or [...] Comments XR OUTSIDE IMAGES MSK Routine 04/20/2022 6:38 EDT documented in this encounter Results * XR OUTSIDE IMAGES MSK (04/20/2022 6:38 EDT) Narrative 04/21/2022 6:38 EDT This is a non-reportable exam. External Imaging IMG OTHER IMAGING OR DERABLES documented in this encounter Visit Diagnoses Not on filedocumented in this encounter Care Teams Fire Eater Relationship Specialty Start Date End Date Yung Horn MD [address] [place] [address] PCP - General 01/26/18 documented as of this encounter
--- OUTSIDE RECORDS SUMMARY | 2024-01-19 15:15 | XMS_ITS | Encounter Summary ---
Author Organization [facility] Address [address] [place] [address] Care Team Providers Care C Developer Name Role Phone Yung Horn MD Primary Care Provider [phone] Encounter Details Date Type Department Care Team (Late st Contact Info) Description 11/02/2021 Lab Requisition [facility] Pathology & Laboratory Medicine - [facility] [address] [place] [address] Matias Bravo MD [address] [place] [id number] Encounter for other general examination Social History [...] Procedure Name Priority Date/Time Associated Diagnosis Comments NON STEREO EQUIPMENT SALESPERSON/FNA CYTOLOGY Today 11/01/2021 14:30 EDT Encounter for other general examination documented in this encounter Results * NON STEREO EQUIPMENT SALESPERSON/FNA CYTOLOGY (11/01/2021 14:30 EDT) Note to Patient The following pathology results have been interpreted by your pathologist and may be available to you before your health provider has had the opportunity to review them. Please allow time for your provider to receive these results and explore management options, if applicable. 11/03/2021 10:44 [facility] Final Diagnosis A. PAROTID GLAND, ULTRASOUND-GUIDE D FINE NEEDLE ASPIRATION: - Benign parotid gland acini present. See comment. 11/03/2021 10:44 [facility] Diagnosis Comment Cytologic evaluation demonstrates groupings of benign serous acinic glands with no cytologic or architectural atypia. There is no definitive evidence of a neoplasm in the current sample. Clinical correlation is recommended to exclude a sampling issue. 11/03/2021 10:44 [facility] Attestation There was significant resident/fellow involvement in the diagnostic evaluation of this case. By the signature below, the attending physician certifies that they have personally conducted a gross and/or microscopic examination of the described specimens and rendered or confirmed the above diagnosis. 11/03/2021 10:44 [facility] at 1044 Clinical History Bilateral parotid masses; H/O alcohol abuse. 11/03/2021 10:44 [facility] Gross Description A. One vial of CytoLyt was received and processed by selective cellular enhancement technique. 11/03/2021 10:44 [facility] Resident/Alexy w: Ivory Mohr MD 11/03/2021 10:44 [facility] Performing Lab [facility] 11/03/2021 10:44 [facility] Scanned Images 11/03/2021 10:44 [facility] Fine Needle Aspirate PAROTID GLAND STRUCTURE / Unknown 11/01/2021 14:30 EDT 11/02/2021 8:20 EDT Matias Bravo MD PATHOLOGY ORDERABLES [facility] [address] [place] [address] documented in this encounter Visit Diagnoses Diagnosis Encounter for other general examination documented in this encounter Care Teams C Developer Relationship Specialty Start Date End Date Yung Horn MD [facility] [place] [address] [place] [address] PCP - General 01/26/18 documented as of this encounter
--- OUTSIDE RECORDS SUMMARY | 2024-01-19 15:15 | XMS_ITS | Encounter Summary ---
Author Organization [facility] Address [address] [place] [address] Care Team Providers Care Database Specialist Name Role Phone Yung Horn MD Primary Care Provider [phone] Encounter Details Date Type Department Care Team (Late st Contact Info) Description 10/19/2021 Lab Requisition [facility] [place] Pathology & Laboratory Medicine - Main [address] [id number] Outr Resulting Lab, Provider Social History Tobacco [...] Procedure Name Priority Date/Time Associated Diagnosis Comments GIARDIA AND CRYPTOSPORIDIUM ANTIGENS Routine 10/18/2021 13:45 EDT documented in this encounter Results * GIARDIA AND CRYPTOSPORIDIUM ANTIGENS (10/18/2021 13:45 EDT) Giardia and Cryptosporidium Cryptosporidium Antigen Neg and Giardia Antigen Neg Cryptosporidium Antigen Neg and Giardia Antigen Neg 12:20 EDT [facility] Feces SPECIMEN FROM RECTUM / Unknown 10/18/2021 13:45 EDT 10/19/2021 17:01 EDT Provider Outr Resulting Lab MICROBIOLOGY - GENERAL ORDERABLES [facility] [address] [place] [address] documented in this encounter Visit Diagnoses Not on filedocumented in this encounter Care Teams Database Specialist Relationship Specialty Start Date End Date Yung Horn MD [address] [place] [address] PCP - General 01/26/18 documented as of this encounter
--- OUTSIDE RECORDS SUMMARY | 2024-01-19 15:15 | XMS_ITS | Encounter Summary ---
Author Organization [facility] [place] [address] Care Team Providers Care Entrepreneurial Finance Professor Name Role Phone Boston Hernandez MD Primary Care Provider Reason for Visit * Auth/Cert Specialty Diagnoses / Procedures Referred By Contac t Referred To Contact Diagnoses ED/PEYRONIE'S Procedures PRO INSERT, INFLATABLE PENILE PROSTHESIS PENILE PROSTHESIS, MULTI-COMPONENT Referral ID Status Reason Start Date Expiration Date Visits Re quested Visits Authorized [id number] 1 Encounter Details Date Type Department Care Team (Late st Contact Info) Description 06/09/2015 1:30 PM EST - 06/09/2015 4:57 PM EST Surgery [place] [address] Ebenezer Patino III, MD [facility] [place] [address] PENILE PROSTHESIS, MULTI-COMPONENT (WRVU 14.52) Social History Tobacco Use Types Packs/Day Years [...] Sign Reading Time Taken Comments Blood Pressure 132/76 06/09/2015 12:35 PM EST Pulse 63 06/09/2015 12:35 PM EST Temperature 36.4 ??C (97.5 ??F) 06/09/2015 12:[address] Respiratory Rate 16 06/09/2015 12:35 PM EST Oxygen Saturation 98% 06/09/2015 12:35 PM EST Inhaled Oxygen Concentration - - Weight 108.9 kg (240 lb) 06/09/2015 12:35 PM EST Height 180.3 cm (5' 11) 06/09/2015 12:35 PM EST Body Mass Index 33.47 06/09/2015 12:35 PM EST documented in this encounter Discharge Summaries * Nilam Pedroza PA - 06/10/2015 11:54 AM EST Discharge Summary Patient Name: Yung Betancur Patient Age: 59 y.o. Language: Dutch Race: White Ethnicity: Not nor Admit date: 06/09/2015 Discharge date: 06/10/2015 Attending Physician: Ebenezer Patino III, MD Discharge Physician: same Discharge Diagnoses (Hospital Problems) and Secondary Diagnoses (Chronic Problems): ED/Peyronie's disease Active Non-Hospital Problems Diagnosis ??? Peyronie's disease ??? Male erectile dysfunction Operations/Major Procedures: Procedure(s): PENILE PROSTHESIS, MULTI-COMPONENT 06/09/2015 History of Presentation: Mr. Betancur is a 59-year-old gentleman who returns for followup evaluation of erectile dysfunction and Peyronie disease. He has photographs of his erections. This shows between a 70 and 90 degree dorsal curvature with some left-sided deflection. and Mrs. Betancur have reviewed the IPP DVD. Physical Examination: Examination of the penis reveals a plaque in the midshaft of the penis. Assessment: [id number]-old gentleman with ED that is likely secondary [...] in June. All questions have been answered. Hospital Course: Patient was admitted electively to [facility] via the same day surgery program and underwent the above procedure. He tolerated surgery well and was tranferred from the PACU to the general floor in good condition a few hours after surgery. Patient's hospital course was uncomplicated. He remained afebrile,with stable vital signs throughout his hospital stay. Today, on POD# 1 he has met all criteria for discharge home: his pain is well controlled with medications by mouth, he is tolerating a regular diet, is voiding spontaneously without difficulties, and is up and ambulating without complications. He has been deemed safe for discharge. Vital Signs at Discharge: Weight: Wt Readings from Last 1 Encounters: 12// 108.863 kg (240 lb) Height: Ht Readings from Last 1 Encounters: 06/09/ 180.3 cm (5' 11) BMI: Body mass index is 33.49 kg/(m^2). Last value Range last 24 hrs Temperature Temp: 37 ??C (98.6 ??F) Temp: [36.4 ??C (97.5 ??F)-37 ??C (98.6 ??F)] Heart Rate Heart Rate: 74 Heart Rate: [63-86] Blood Pressure BP: 123/69 mmHg BP: (109-135)/(65-79) Respiratory Rate Resp: 16 Resp: [9-19] SpO2 SpO2: 98 % SpO2: [94 %-99 %] Exam at Discharge: General: NAD CV: RRR Pulm: CTAB Abd: soft, NT, ND Incision: c/d/i. Scrotum with swelling and ecchymosis. TTP. Ext: warm, well perfused, no edema Functional and Cognitive Status: Ambulating and cognitively intact. Important Studies and Lab Data: Recent Results (from the past 24 hour(s)) POCT Glucose Result Value Ref Range POC Glucose 146 65 - 199 mg/dL Basic Metabolic Panel (non-fasting) Result Value Ref Range Glucose Lvl 140 65 - 199 mg/dL BUN 19 10 - 20 mg/dL Creatinine 1.07 0.80 - 1.50 mg/dL Sodium 139 135 - 145 mmol/L Potassium 4.3 3.5 - 5.0 mmol/L Chloride 102 98 - 107 mmol/L CO2 24 22 - 31 mmol/L Anion Gap 13 5 - 15 mmol/L Calcium 8.9 8.5 - 10.5 mg/dL Estimated GFR >60 >=60 POCT Glucose Result Value Ref Range POC Glucose 164 65 - 199 mg/dL POCT Glucose Result Value Ref Range POC Glucose 280 (H) 65 - 199 mg/dL Studies: None Pending Studies and Lab Data: No current labs Discharge Conditions/Prognosis: Stable Discharge to: Home Updated Allergies/ADRs: Allergies Allergen Reactions ??? Bandages, Cohesive Rash ??? Adhesive Tape Rash Immunizations Given this Hospitalization: There is no immunization history on file for this patient. Discharge Medications: Your Medications New Medications Dose Details acetaminophen 500 mg Tab Commonly known as: TYLENOL Take 2 tablets by mouth every 6 hours as needed for Pain. 1000 mg Refills: 0 docusate sodium 100 mg Cap Commonly known as: COLACE Take 1 capsule by mouth 2 times daily. Recommend stool softener while taking narcotic pain med. 100 mg Refills: 0 oxyCODONE 10 mg Tab Commonly known as: ROXICODONE Take 0.5-1 tablets by mouth every 4 hours as needed for Pain. 5-10 mg Quantity: 30 tablet Refills: 0 sulfamethoxazole-trimethoprim 800-160 mg Tab Commonly known as: BACTRIM DS Take 1 tablet by mouth 2 times daily for 14 days. 1 tablet Quantity: 28 tablet Refills: 0 Continued medications, unchanged Dose Details gabapentin 600 mg Tab Commonly known as: NEURONTIN Take 600 mg by mouth nightly. 600 mg Refills: 0 ibuprofen 800 mg Tab Commonly known as: ADVIL;MOTRIN Take 800 mg by mouth as needed for Pain. 800 mg Refills: 0 metFORMIN 1,000 mg Tr24 Commonly known as: FORTAMET Take 1,000 mg by mouth 2 times daily (with meals). 1000 mg Refills: 0 omeprazole 20 mg Cpdr Commonly known as: PriLOSEC Take 20 mg by mouth daily. 20 mg Refills: 0 Smoking Status at Discharge: History Smoking status ??? Former Smoker Smokeless tobacco ??? Never Used Instructions Given to Patient at Discharge: Patient Instructions Instructions For Care Following Penile Prosthesis You have just undergone a major operation. The healing process takes time and we would like for youto observe the following instructions during your initial recovery. We have written this information for you to use as a reference during this initial healing phase. INSTRUCTIONS TO FOLLOW AT HOME AFTER DISCHARGE Activity Avoid heavy lifting (greater than 5 pounds) or strenuous activity prior to your first follow up appointment. This causes increased abdominal pressure and puts stress on the incision. If you need to brace yourself to roller picker an object - it is too heavy. Avoid any straddling activities such as bike riding, motorcycles, snowmobiles, ride on mowers etc. It is highly recommended to avoid sexual activity prior to your follow up visit. Use of the prosthesis prior to proper healing of the incisions could cause incisional damage and potential damage to the prosthesis. At your first follow up visit, your doctor will inform you of when you will be able to resume sexual activity. Do not drive any motorized vehicle, or sign legal documents if you are taking a narcotic pain medication. The medication may cause alteration in visual perception and impair judgment. Wear loose fitting briefs or shorts and avoid wearing clothing that is too tight. Bathing You may use the shower to bathe if you wish. Gently wash the incision with soap and water, rinse thoroughly, and pat dry. This will be sufficient to keep your incision clean, dry, and free of bacteria. Diet Return to your normal eating habits. A well balanced diet will promote healing. Drink fluids on a regular basis to ensure a regular voiding pattern. SPECIAL CONSIDERATIONS As instructed you should gently pull down on the scrotal pump 3 times per day to prevent the devicefrom retracting. A good way to remember is to do this every time you urinate. If your scrotum is swollen, wear a scrotal support and when resting, elevate your scrotum on a towel roll. Avoid constipation. This will prevent unnecessary straining. To prevent constipation you can increase roughage in your diet, drink prune juice or orange juice, take milk of magnesia or some other over the counter laxative. You will be prescribed Colace when you are discharged. This is a stool softener, not a laxative. It is recommended that you drink 6-8 glasses of water a day to enhance the effectiveness of Colace. Should constipation become a problem that is not relieved, call your doctor whose number is on the back of this pamphlet. Carry your prosthesis identification card in your wallet at all times. You will be given a prescription for antibiotics that you will take by mouth for two weeks after your surgery. WHEN TO CALL YOUR DOCTOR You have increased scrotal or penile swelling There is drainage from your incision Your incision is red or swollen The area of skin around your incision is warmer than elsewhere You have difficulty passing your urine or starting a stream There is blood in your urine Nausea and vomiting occurs Severe pain that is not relieved by your pain medication You have chills or fever of 101.5 or more degrees The number for questions is [phone] before 5 PM weekdays and [phone] after 5 PM and weekends. FOLLOW-UP Follow-up appointment will be scheduled with Dr. Pelaez in 2 weeks for a wound check. Appointment will be mailed to you. Please call [phone] (clinic number for appointments) to confirm date and time of your appointment if you do not receive your apointment in 2-3 days. Future Appointments Date Time Provider Department Center 06/24/2015 1:40 PM Ebenezer Patino III, MD [facility] General Instructions None Future Appointments and Orders Future Appointments Provider Department Dept Phone 06/24/2015 1:40 PM Ebenezer Patino III, MD Urology [phone] Future Orders Complete By Expires Referral to Home Health - at DISCHARGE [[id number] CPT(R)] As directed Process Instructions: Scheduling Instructions: Comments: DOCUMENTATION FOR VNA SERVICES (INCLUDING THOSE PATIENTS WITH MEDICARE COVERAGE REQUIRING HOME VNA SERVICES AND/OR HOSPICE SERVICES) PATIENT'S LOCATION: Yung [place] [facility] [id number] (home) Cell: No relevant phone numbers on file. Helmet Hat Brim Cutter's Name: Tahmina- Spouse In discussion with the attending physician, it is certified that this patient is under their care and that they, or a Nurse Practitioner,Clinical Nurse specialist or Physician Retail Administrative Assistant who is working directly with them, had a face to face encounter that meets the physician face to face encounter requirements with this patient on 06/10/2015 The encounter with the patient was in whole, or in part, for the following medical condition, whichis the primary reason for home health care services: Penile Prosthesis In discussion with the provider, it is certified that, based on their findings, the following services are medically necessary for home health services. To provide the following care/treatments with the clinical findings supporting the need for services as follows: HOME CARE ORDERS: RN ORDERS:Assess incision, vital signs, cardiopulmonary status, nutrition, hydration, elimination, meds effectiveness and management; reinforce education re health issues HOME HEALTH CARE AGENCY: [facility] PHONE: [phone] FAX: [phone] Start of care: Day after Discharge Please note that any additional orders needs or changes will need to be obtained from this patient's PCP: BOSTON HERNANDEZ MD [facility] 1 [facility] [id number] All VNA agencies which cover the area of patient's residence have been reviewed, either verbally symone writing, and patient/family have chosen the home health care agency noted Questions: [facility] Patient location post discharge: Home What services are requested: Registered Nurse Start date: Responsible MD post discharge contact info: PCP Follow-Up: Future Appointments Date Time Provider Department Center 06/24/2015 1:40 PM Ebenezer Patino III, MD [facility] Primary Care Provider: BOSTON HERNANDEZ MD [phone] Follow-up Recommendations for Providers: Please see discharge instructions. Call your doctor if: Please call your doctor immediately or go to an Emergency Department if you notice worsening pain not controlled by pain medications, uncontrolled headache, vision changes, chest pain, difficulty breathing, persistent nausea and vomiting, new redness or swelling in any extremities, new onset weakness or changes in sensation, or for any fevers greater than 101.3 F. Your care was managed by the Urology Team at [facility]. If you have any questions or concerns, please feel free to contact us. Provider Contact Information: Urology Clinic: [facility] (after business hours): documented in this encounter Discharge Instructions * Patient Instructions* Yevgeniy Petty P - 06/09/2015 3:20 PM EST Instructions For Care Following Penile Prosthesis You have just undergone a major operation. The healing process takes time and we would like for youto observe the following instructions during your initial recovery. We have written this information for you to use as a reference during this initial healing phase. INSTRUCTIONS TO FOLLOW AT HOME AFTER DISCHARGE Activity Avoid heavy lifting (greater than 5 pounds) or strenuous activity prior to your first follow up appointment. This causes increased abdominal pressure and puts stress on the incision. If you need to brace yourself to roller picker an object - it is too heavy. Avoid any straddling activities such as bike riding, motorcycles, snowmobiles, ride on mowers etc. It is highly recommended to avoid sexual activity prior to your follow up visit. Use of the prosthesis prior to proper healing of the incisions could cause incisional damage and potential damage to the prosthesis. At your first follow up visit, your doctor will inform you of when you will be able to resume sexual activity. Do not drive any motorized vehicle, or sign legal documents if you are taking a narcotic pain medication. The medication may cause alteration in visual perception and impair judgment. Wear loose fitting briefs or shorts and avoid wearing clothing that is too tight. Bathing You may use the shower to bathe if you wish. Gently wash the incision with soap and water, rinse thoroughly, and pat dry. This will be sufficient to keep your incision clean, dry, and free of bacteria. Diet Return to your normal eating habits. A well balanced diet will promote healing. Drink fluids on a regular basis to ensure a regular voiding pattern. SPECIAL CONSIDERATIONS As instructed you should gently pull down on the scrotal pump 3 times per day to prevent the devicefrom retracting. A good way to remember is to do this every time you urinate. If your scrotum is swollen, wear a scrotal support and when resting, elevate your scrotum on a towel roll. Avoid constipation. This will prevent unnecessary straining. To prevent constipation you can increase roughage in your diet, drink prune juice or orange juice, take milk of magnesia or some other over the counter laxative. You will be prescribed Colace when you are discharged. This is a stool softener, not a laxative. It is recommended that you drink 6-8 glasses of water a day to enhance the effectiveness of Colace. Should constipation become a problem that is not relieved, call your doctor whose number is on the back of this pamphlet. Carry your prosthesis identification card in your wallet at all times. You will be given a prescription for antibiotics that you will take by mouth for two weeks after your surgery. WHEN TO CALL YOUR DOCTOR You have increased scrotal or penile swelling There is drainage from your incision Your incision is red or swollen The area of skin around your incision is warmer than elsewhere You have difficulty passing your urine or starting a stream There is blood in your urine Nausea and vomiting occurs Severe pain that is not relieved by your pain medication You have chills or fever of 101.5 or more degrees The number for questions is [phone] before 5 PM weekdays and [phone] after 5 PM and weekends. FOLLOW-UP Follow-up appointment will be scheduled with Dr. Pelaez in 2 weeks for a wound check. Appointment will be mailed to you. Please call [phone] (clinic number for appointments) to confirm date and time of your appointment if you do not receive your apointment in 2-3 days. Future Appointments Date Time Provider Department Center 06/24/2015 1:40 PM Ebenezer Patino III, MD [facility] documented in this encounter Medications at Time of Discharge Medication Sig Dispensed Refills Start Date End Date acetaminophen (TYLENOL) 500 mg Tablet Take 2 tablets by mouth every 6 hours as needed for Pain. 06/10/2015 gabapentin (NEURONTIN) 600 mg Tablet Take 800 mg by mouth 3 times daily. metFORMIN (FORTAMET) 1,000 mg Tablet Extended Rel 24 hr Take 1,000 mg by mouth 2 times daily (with meals). sulfamethoxazole-trime thoprim (BACTRIM DS) 800-160 mg Tablet Take 1 tablet by mouth 2 times daily for 14 days. 28 tablet 0 06/10/2015 06/24/2015 docusate sodium (COLACE) 100 mg Capsule Take 1 capsule by mouth 2 times daily. Recommend stool softener while taking narcotic pain med. 06/10/2015 06/24/2015 oxyCODONE (ROXICODONE) 10 mg Tablet Take 0.5-1 tablets by mouth every 4 hours as needed. 40 tablet 0 06/10/2015 08/05/2015 omeprazole (PRILOSEC) 20 mg Capsule, Delayed Release(E.C.) Take 40 mg by mouth daily. 12/17/2018 ibuprofen (ADVIL;MOTRIN) 800 mg Tablet Take 800 mg by mouth as needed for Pain. 05/28/2017 documented as of this encounter Progress Notes * Do Reich RN - 06/10/2015 11:07 AM EST Office of Care Management (OCM) / Junior Electrical Engineer(CM)/ Initial Assessment Discussed patient with Provider Team and in multidisciplinary discharge-planning rounds. Reviewed record and interviewed patient. Introduced/reviewed CM role and services accepted. REASON for HOSPITALIZATION: Penile Prosthesis for Peyronies PMH None PREVIOUS FUNCTIONAL STATUS: Independant CURRENT FUNCTIONAL STATUS: post surgical SOCIAL / FAMILY SUPPORTS:Lives with spouse in one floor home with two dogs and outdoor animals. Spouse returning to work and would like VNA to check in on patient. ADVANCE DIRECTIVES: Not on file HEALTH /PRESCRIPTION COVERAGE:[facility] CURRENT HOME/COMMUNITY SERVICES/EQUIPMENT: None but will place VNA referral DME: Home Health Agency: [facility]. PHONE: [phone] FAX: [phone] Other: RN OBSERVATION REFERRAL: not needed at this time PRIMARY CARE PHYSICIAN: BOSTON HERNANDEZ MD [place] [phone] [facility] [id number] POTENTIAL DISCHARGE NEEDS: VNA referral and prescriptions. ANTICIPATED BARRIERS TO DISCHARGE: None TRANSPORTATION @ D/C: PLAN: CM will facilitate referral for VNA. CM will continue to monitor progress, follow for continuity of care and assist with discharge planning while hospitalized . * Seda Wild MD - 06/09/2015 8:30 PM EST Progress Note/Post-Op Check: Procedure/Intervention: penile prosthesis S: He is feeling well. Pain is well controlled. No nausea or emesis. No CP/SOB. O: Last value Range last 24 hrs Temperature Temp: 36.7 ??C (98.1 ??F) Temp: [36.4 ??C (97.5 ??F)-36.7 ??C (98.1 ??F)] Heart Rate Heart Rate: 82 Heart Rate: [63-86] Blood Pressure BP: 127/73 mmHg BP: (126-135)/(65-79) Respiratory Rate Resp: 12 Resp: [9-19] SpO2 SpO2: 94 % SpO2: [94 %-99 %] I/Os: Intake/Output Summary (Last 24 hours) at 06/09/152030 Last data filed at 06/09/151948 Gross per 24 hour Intake 1900 ml Output 183 ml Net 1717 ml , I/O last 1 completed shift: In: 1900 [I.V.:0] Out: 43 [Urine:3; Blood:40] Physical Exam: Gen: alert and oriented, in NAD CV: RRR, no m/r/g Pulm: CTAB Abd: soft, non-tender, non-distended : packing in place, richardson with clear yellow urine Ext: warm, well perfused, no edema A/P: 59 yo man POD#0 s/p penile prosthesis for peyronie's. Progressing well postoperatively. Pain is well controlled and pt is currently stable. - Continue ordered post-operative care Seda Wild MD pgr [phone] * Mali Guillory RN - 06/09/2015 7:00 PM EST Pt arrived sleepy but now more awake. 1915: Pt very talkative, c/o burning and pain with penis. Tx with dilaudid. 0: in to visit. documented in this encounter H&P Notes * Derick Bravo - 06/09/2015 3:03 PM EST UROLOGY H&P No changes. NAD Unlabored, no wheezing RRR Proceed to OR for 3 piece IPP. documented in this encounter Miscellaneous Notes * Plan of Care - Shamir Xiao Adelfo - 06/09/2015 9:22 PM EST Problem: General Plan of Care Goal: Plan of Care Review Outcome: Ongoing (Interventions Implemented as Appropriate) 06/09/152116 Coping/Psychosocial Response Interventions Plan of Care Reviewed with patient Plan of Care Review Plan of Care Outcome Status ongoing (interventions implemented as appropriate) Progress no change OUTCOME EVALUATION NOTE: OUTCOME SUMMARY: Patient noted and reported to have adequate pain control. Reviewed personal safety recommendations.Stated understanding and agreement. PLAN MOVING FORWARD: Initiate plan of care per MD order, nursing process and patient participation. Amend Prn. Stated intended discharge to home tomorrow. INDIVIDUALIZED fALL PREVENTION: Assistance: none Supervision: staff Surveillance: Hourly rounding, vital signs q4h CPG GOAL OUTCOME EVALUATION: Goal: Individualization and Mutuality Outcome: Ongoing (Interventions Implemented as Appropriate) Goal: Fall Prevention-Safe Patient Handling Outcome: Ongoing (Interventions Implemented as Appropriate) 06/09/15192306/09/152116 Safety Interventions Safety Precautions/Fall Reduction -- fall reduction program maintained Musculoskeletal Interventions Activity/Level of Assistance -- with stand by assist Positioning HOB up 45 degrees -- Givens Fall Risk History of Falling -- 0 Secondary Diagnosis -- 15 Ambulatory Aids -- 0 Intravenous Therapy/Heparin/Saline Lock -- 20 Gait/Transferring -- 0 Mental Status -- 0 Score -- 35 OTHER Givens Fall Risk -- Low Goal: Infection Control Outcome: Ongoing (Interventions Implemented as Appropriate) 06/09/152116 Safety Interventions Isolation Precautions standard precautions maintained Coping/Psychosocial Response Interventions Counseling emotional support provided Goal: Discharge Needs Assessment Outcome: Ongoing (Interventions Implemented as Appropriate) 06/09/152116 Discharge Needs Assessment Concerns to be Addressed no discharge needs identified Problem: Coping, Compromised Family (Adult, NICU, [place], Obstetrics, Pediatric) Goal: Identify Signs and Symptoms and Related Risk Factors Signs and symptoms and related risk factors are identified upon initiation of Human Response Clinical Practice Guideline (CPG) Outcome: Ongoing (Interventions Implemented as Appropriate) Goal: Effective Family Coping Patient will demonstrate the desired outcomes. Outcome: Ongoing (Interventions Implemented as Appropriate) 06/09/152116 Coping, Compromised Family (Adult, NICU, [place], Obstetrics, Pediatric) Effective Family Coping making progress toward outcome * Op Note - Derick Bravo - 06/09/2015 6:30 PM EST [facility] Operative Note Patient Name: Yung Betancur : [id number] MR#: [id number] Case Date: 06/09/2015 Surgeon: Surgeon(s) and Role: * Ebenezer Patino III, MD - Primary * Derick Bravo MD - Resident-Surgeon Chief * Soco Fisher MD - Resident-Surgeon Micah Preoperative diagnosis: ED/PEYRONIE'S Postoperative diagnosis: ED/PEYRONIE'S Procedure(s): PENILE PROSTHESIS, MULTI-COMPONENT Findings: 1. Normal anatomy 2. Retropubic reservoir 3. 15 cm cylinder with bilateral 4 cm rear tips Complications: None Fluids: 1L Estimated Blood Loss: 40 mL Drains: 16 Fr Richardson Disposition: awakened from anesthesia, extubated and taken to the recovery room in a stable condition, having suffered no apparent untoward event. Condition: doing well without problems (Please see the Surgical Encounter Summary for any Implant and Specimen details pertinent to this patient.) HPI/Surgical Indications: 59 yo M with Peyronie's disease and ED electing for IPP. Procedure Description: The patient was seen in the preoperative area and informed consent was obtained. He was brought back to the Operating Room and placed on the operating room table. General anesthesia was induced and an LMA was placed. A 10-minute prep was performed and he was draped in the usual fashion. A surgical time-out was performed, and it was confirmed that the patient had received preoperative antibiotics (Vancomycin/gentamicin). A 16- Tanzanian Richardson catheter was placed and the Lonestar retractor was put into position with the bead behind the phallus base as well as the hook in the meatus. An approximately 4-cm penoscrotalincision was made using the 10-blade knife, and using electrocautery carried down to the area of the corpora bilaterally. The retractors were put in place, and the corpora were identified bilaterally. Using 2-0 Vicryl, holding stitches were placed in the corpora bilaterally. The corpora was then incised using a 15-blade scalpel. Metzenbaum scissors were used to extend the corporotomies in both directions. The corpora were then dilated serially beginning at 7 and up to 13 proximally and 14 distal ly. He was then measured with the Sim device, and both sides measured 6 cm distally and 13cm proximally. Once he had been sized up, the tunnel was made up into the inguinal ring on the patient's right side. This was performed bluntly until we could enter the retropubic space. Using the digital guidance, the reservoir was advanced up into the retropubic space. This was filled up to 65 mL and appeared to be in good position with little backpressure. We then placed several additional corporal holding stitches, which would be used to close the corpora following placement of the cylinders. Taking into account the previous measurements, we elected to place 15 cm cylinders with 4 cm rear tip extenders. We first seated them posteriorly in the posterior portion, and then using the Ronnell needle,the stitches were brought out through the corpora and the cylinders were seated in the corpora bilaterally. The pump was then activated after connecting it to a syringe to test the cylinders, which appeared to be in good position with no buckling. There was some angulation related to the dorsal plaq ue, and the penis was then modeled in attempt to straighten the mild angulation. The cylinders werethen drained. The Dartos pouch was then created using blunt dissection, and the pump was placed down into the pouch and held into position with a figure of 8 vicryl placed above it. The connection was made using the O- rings and the connector and a crimper, and there was good connection. The device was again tested and appeared to inflate well. The corporotomies were closed with the previously placed stitches. The dartos was then closed using 3-0 Vicryl and using 4-0 Vicryl in a running verticalmattress fashion, the scrotal skin was closed, and Dermabond was applied. The patient was then awakened and taken to the Recovery Room in stable condition. Infection Bundle used? No Associated attestation - Ebenezer Patino III, MD - 06/12/2015 5:17 PM EST Attestation: Case Date: 06/09/2015 I was present and I participated during the entire procedure (does not need to include opening and closing). 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 Normal anatomy 2. Retropubic reservoir 3. 15 cm cylinder with bilateral 4 cm rear tips Complications: None Fluids: 1L Estimated Blood Loss: 40 mL Drains: 16 Fr Richardson Disposition: awakened from anesthesia, extubated and taken to the recovery room in a stable condition, having suffered no apparent untoward event. Condition: doing well without problems (Please see the Surgical Encounter Summary for any Implant and Specimen details pertinent to this patient.) Infection Bundle used? No Associated attestation - Ebenezer Patino III, MD - 06/10/2015 7:26 AM EST I was the attending physician supervising the resident in the above care and I was present with theresident for the entire procedure. documented in this encounter Plan of Treatment Upcoming Encounters Date Type Department Care Team (Latest Contact Info) Description 02/01/2024 11:15 AM EDT Telephone Pre Admission Testing at [address] [phone] 02/07/2024 11:20 AM EDT Office Visit Urology at [facility] [place] [address] Manoj Vinson MD [facility] [place] [address] 02/08/2024 8:30 AM EDT Hospital Encounter PACU at [address] [phone] Manoj Vinson MD [facility] [place] [address] 02/08/2024 8:30 AM EDT - 02/08/2024 11:00 AM EDT Surgery Main OR at [address] [phone] Manoj Vinson MD [facility] [place] [address] ADJ.TISSUE TRANSFER, REARRANGEMENT, 10.1 TO 30 SQ.CM, GENITALIA (WRVU 10.83) Scheduled Procedures Name Priority Associated Diagnoses Date/Ti me ADJ.TISSUE TRANSFER, REARRANGEMENT, 10.1 TO 30 SQ.CM, GENITALIA (WRVU 10.83) Acquired buried penis 02/08/2024 8:30 AM EDT documented as of this encounter Procedures Procedure Name Priority Date/Time Associated Diagnosis Comments IMPLANTABLE DEVICES SCAN 06/11/2015 12:00 AM EST UX DEVELOPER DESIGNER SCAN 06/11/2015 12:00 AM EST POCT GLUCOSE Routine 06/10/2015 11:25 AM EST POCT GLUCOSE Routine 06/09/2015 6:50 PM EST PENILE PROSTHESIS, MULTI-COMPONENT (WRVU 14.52) 06/09/2015 3:48 PM EST ED/BEN'S BASIC METABOLIC PANEL (NON-FASTING) STAT 06/09/2015 1:50 PM EST POCT GLUCOSE Routine 06/09/2015 12:38 PM EST documented in this encounter Results * SCAN DOC: IMPLANTABLE DEVICES (06/11/2015 12:00 AM EST) Scanning Provider MEDIA MGR SCAN EXT O RDR/RSLT * SCAN DOC: UX DEVELOPER DESIGNER (06/11/2015 12:00 AM EST) Anatomical Region Laterality Modality Other Scanning Provider MEDIA MGR SCAN EXT O RDR/RSLT * (ABNORMAL) POCT Glucose (06/10/2015 11:25 AM EST) POC Glucose 280(H) 65 - 199 mg/dL [facility] Comment: Supplemental ranges: <140 mg/dL before meals <180 mg/dL all other times of the day Blood specimen (specimen) 06/10/2015 11:25 AM EST 06/10/2015 11:25 AM EST Ebenezer Patino III, MD POINT OF CARE [employer] T ORDERABLES Performing Organization Address [facility] de Phone Number [facility] * POCT Glucose (06/09/2015 6:50 PM EST) POC Glucose 164 65 - 199 mg/dL [facility] Comment: Supplemental ranges: <140 mg/dL before meals <180 mg/dL all other times of the day Blood specimen (specimen) 06/09/2015 6:50 PM EST 06/09/2015 6:50 PM EST Ebenezer Patino III, MD POINT OF CARE [employer] T ORDERABLES Performing Organization Address [facility] Co de Phone Number [facility] * Basic Metabolic Panel (non-fasting) (06/09/2015 1:50 PM EST) Glucose Lvl 140 65 - 199 mg/dL [facility] Comment:Diabetes: >=200 mg/d L plus symptoms BUN 19 10 - 20 mg/dL CERNER MILLENNIUM Creatinine 1.07 0.80 - 1.50 mg/dL CERNER MILLENNIUM Comment: Please note that the pediatric reference intervals supplied above were not validated at [facility]. Results from pediatric patients should be interpreted in conjunction to the patient's age, height and muscle mass. Sodium 139 135 - 145 mmol/L CERNER MILLENNIUM Potassium 4.3 3.5 - 5.0 mmol/L CERNER MILLENNIUM Comment: Please note: ??Patients with WBC >100,000 may have falsely elevated Potassium levels. ??For accurate Potassium quantification in these patients send serum separator tube (gold top) for subsequent determinations. ??Contact the Clinical Chemistry Laboratory if there are any questions. Chloride 102 98 - 107 mmol/L CERNER MILLENNIUM CO2 24 22 - 31 mmol/L CERNER MILLENNIUM Anion Gap 13 5 - 15 mmol/L CERNER MILLENNIUM Calcium 8.9 8.5 - 10.5 mg/dL CERNER MILLENNIUM Estimated GFR >60 >=60 CERNER MILLENNIUM Comment: This estimated GFR (eGFR) value was calculated using the MDRD equation which has been validated on patients between the ages of 18 and 70. The MDRD should not be used to assess kidney function in patients < 18 years of age or in patients with extremes of body mass, or in patients with acute kidney failure. This value should be multiplied by 1.2 for patients. For further information please copy and paste the following links into your internet browser. http://[employer] (?)/DHnkdep http://[employer] (?)/[facility] Blood specimen (specimen) 06/09/2015 1:50 PM EST 06/09/2015 1:59 PM EST Narrative Resulting Agency Comment Spec In Lab Arabella Hatch MD CHEMISTRY ORDERABLES [facility] * POCT Glucose (06/09/2015 12:38 PM EST) POC Glucose 146 65 - 199 mg/dL CERNER MILLENNIUM Comment: Supplemental ranges: <140 mg/dL before meals <180 mg/dL all other times of the day Blood specimen (specimen) 06/09/2015 12:38 PM EST 06/09/2015 12:38 PM EST Ebenezer Patino III, MD POINT OF CARE [employer] T ORDERABLES [facility] documented in this encounter Visit Diagnoses Not on filedocumented in this encounter Administered Medications Inactive Administered Medications - up to 3 most recent administrations Medication Order MAR Action Action Date Dose Rate Site bacitracin injection ONCE PRN, Starting on Mon06/09/15 at 1653, Until Mon06/09/15 at 1957, Intra-Operative (Intra-Procedure), Routine Given 06/09/2015 5:36 PM EST 50,000 Units 19- Surgical Site Given 06/09/2015 4:53 PM EST 50,000 Units 19- Surgical Site docusate sodium (COLACE) capsule 100 mg 100 mg, Oral, 2 TIMES DAILY, First dose on Mon06/09/15 at 2100, Until Discontinued, Routine Given 06/10/2015 9:04 AM EST 100 mg Given 06/09/2015 10:24 PM EST 100 mg gabapentin (NEURONTIN) capsule 600 mg 600 mg, Oral, NIGHTLY, First dose on Mon06/09/15 at 2100, Until Discontinued, Routine Given 06/09/2015 10:2 5 PM EST 600 mg HYDROmorphone (DILAUDID) syringe 0.2-0.4 mg 0.2-0.4 mg, Intravenous, EVERY 5 MIN PRN, Pain, Starting on Mon06/09/15 at 1839, Until Mon06/09/15 at 1957, For moderate pain (4-6) give: 0.2 mg every 5 minute prn For severe pain (7-10) give: 0.4 mg every 5 minutes prn Maximum dose: 4 mg per hour Hold for respiratory rate less than 10 per minute., PACU Recovery Given 06/09/2015 7:23 PM EST 0.4 mg Given 06/09/2015 7:17 PM EST 0.4 mg Given 06/09/2015 7:09 PM EST 0.4 mg insulin aspart (NovoLOG) VIAL injection 1-4 Units 1-4 Units, Subcutaneous, 3 TIMES DAILY BEFORE MEALS, First dose on Mon06/09/15 at 1915, Until Discontinued, CORRECTION BOLUS Sensitive to insulin lean patient or total daily dose of all insulin needed to achieve glycemic control less than 30 units BG 140 - 160 Give 1 unit BG 161 - 200 Give 2 units BG 201 - 240 Give 3 units BG greater than 240, give 4 units and recheck BG in 2 hours. If BG remains greater than 240, repeat 4 units (no more than three times) & call for new basal insulin orders. If less than 240 after two hours, give no insulin and resume prior schedule. Given 06/10/2015 12:06 PM EST 4 Units Given 06/09/2015 7:06 PM EST 2 Units lactated ringers infusion 1,000 mL 1,000 mL, at 100 mL/hr, Intravenous, CONTINUOUS, Starting on Mon06/09/15 at 1330, Until Mon06/09/15 at 1958, Day of Surgery (Day of Procedure) New Bag 06/09/2015 6:40 PM EST New Bag 06/09/2015 2:00 PM EST 1,000 mLs 100 mL/hr New Bag 06/09/2015 1:30 PM EST 1,000 mLs 100 mL/hr oxyCODONE (ROXICODONE) immediate release tablet 10 mg 10 mg, Oral, EVERY 4 HOURS PRN, Starting on Mon06/09/15 at 1846, Until Mon06/10/15 at 1552, Pain, severe pain (7-10), May give an additional 5 mg in 30 minutes once if pain not relieved., Routine Given 06/10/2015 12:59 PM EST 10 mg Given 06/10/2015 8:16 AM EST 10 mg Given 06/09/2015 9:32 PM EST 10 mg sodium chloride 0.9 % flush 5 mL 5 mL, Intravenous, 2 TIMES DAILY, First dose on Mon06/09/15 at 2100, Until Discontinued, Routine Given 06/10/2015 9:15 AM EST 5 mLs Given 06/09/2015 10:25 PM EST 5 mLs sodium chloride 0.9% infusion 100 mL/hr, Intravenous, CONTINUOUS, Starting on Mon06/09/15 at 1915, Until Mon06/10/15 at 1552 Rate/Dose Verify 06/10/2015 5:44 AM EST 100 mL/hr 100 mL/hr New Bag 06/09/2015 6:52 PM EST 100 mL/hr 100 mL/hr sulfamethoxazole-trimethoprim (BACTRIM DS) 800-160 mg per tablet 1 tablet 1 tablet, Oral, EVERY 12 HOURS SCHEDULED (2 times per day), First dose on Mon06/09/15 at 2100, Until Discontinued, Routine, Indication for (Active or Suspected): Prophylaxis Given 06/10/2015 9:04 AM EST 1 tablet Given 06/09/2015 10:25 PM EST 1 tablet vancomycin 1 g in dextrose 5% 200 mL 1,000 mg (1 g), Intravenous, ONCE, 1 dose, On Mon06/10/15 at 0700, Maximum infusion rate is 1 gram/hour. If flushing of the face, neck, upper body, arms, and/or back occurs decrease infusion rate by 50% to reduce the severity of symptoms. This medication may have an associated drug lab level. Please see MAR for scheduled level., STAT Given 06/10/2015 8:12 AM EST 1,000 mg documented in this encounter Active and Recently Administered Medications Times are shown in EST. Scheduled Medication Order 06/08/2015 06/09/2015 06/10/2015 docusate sodium (COLACE) capsule 100 mg 100 mg, Oral, 2 TIMES DAILY, First dose on Mon06/09/15 at 2100, Until Discontinued, Routine 2224 (Given - Provider: Shamir Xiao) 0904 (Given - Provider: Laura Vallecillo RN) gabapentin (NEURONTIN) capsule 600 mg (CANCELED) 600 mg, Oral, NIGHTLY, First dose on Mon06/09/15 at 2100, Until Discontinued, Routine 222 (Given - Provider: Shamir Xiao) gentamicin (GARAMYCIN) 326.8 mg in sodium chloride 0.9% 108.17 mL (COMPLETED) 326.8 mg (rounded from 326.7 mg = 3 mg/kg/dose ? 108.9 kg), Intravenous, ONCE, 1 dose, On Mon06/09/15 at 1400, Administer over 60 Minutes, This medication may have an associated drug lab level. Please check for lab orders., Indication for (Active or Suspected): Prophylaxis 1605 (Given - Provider: Scarlett Richards CRNA - Comment: IV slowly) insulin aspart (NovoLOG) VIAL injection 1-4 Units (CANCELED)(Linked Group 1) 1-4 Units, Subcutaneous, 3 TIMES DAILY BEFORE MEALS, First dose on Mon06/09/15 at 1915, Until Discontinued, CORRECTION BOLUS Sensitive to insulin lean patient or total daily dose of all insulin needed to achieve glycemic control less than 30 units BG 140 - 160 Give 1 unit BG 161 - 200 Give 2 units BG 201 - 240 Give 3 units BG greater than 240, give 4 units and recheck BG in 2 hours. If BG remains greater than 240, repeat 4 units (no more than three times) & call for new basal insulin orders. If less than 240 after two hours, give no insulin and resume prior schedule. 1906 (Given - Provider: Mali Guillory RN) 0730 (Not Given - Provider: Laura Vallecillo RN - Reason: See comment - Comment: PT HAD ALREADY EATEN BREAKFAST)1206 (Given - Provider: Laura Vallecillo RN) sodium chloride 0.9 % flush 5 mL (CANCELED) 5 mL, Intravenous, 2 TIMES DAILY, First dose on Mon06/09/15 at 2100, Until Discontinued, Routine 2225 (Given - Provider: Shamir Xiao) 0915 (Given - Provider: Laura Vallecillo RN) sulfamethoxazole-trimethop rim (BACTRIM DS) 800-160 mg per tablet 1 tablet 1 tablet, Oral, EVERY 12 HOURS SCHEDULED (2 times per day), First dose on Mon06/09/15 at 2100, Until Discontinued, Routine, Indication for (Active or Suspected): Prophylaxis 2225 (Given - Provider: Shamir Xiao) 0904 (Given - Provider: Laura Vallecillo RN) vancomycin 1 g in dextrose 5% 200 mL (COMPLETED) 1,000 mg (1 g), Intravenous, ONCE, 1 dose, On Mon06/09/15 at 1400, Maximum infusion rate is 1 gram/hour. If flushing of the face, neck, upper body, arms, and/or back occurs decrease infusion rate by 50% to reduce the severity of symptoms. This medication may have an associated drug lab level. Please see MAR for scheduled level., Routine 1603 (Given - Provider: Scarlett Richards CRNA - Comment: IV slowly over 1 hour) vancomycin 1 g in dextrose 5% 200 mL (COMPLETED)(Linked Group 2) 1,000 mg (1 g), Intravenous, ONCE, 1 dose, On Mon06/10/15 at 0700, Maximum infusion rate is 1 gram/hour. If flushing of the face, neck, upper body, arms, and/or back occurs decrease infusion rate by 50% to reduce the severity of symptoms. This medication may have an associated drug lab level. Please see MAR for scheduled level., STAT 0812 (Given - Provid er: Laura Vallecillo RN) Continuous Medication Order 06/08/2015 06/09/2015 06/10/2015 lactated ringers infusion 1,000 mL (CANCELED) 1,000 mL, at 100 mL/hr, Intravenous, CONTINUOUS, Starting on Mon06/09/15 at 1330, Until Mon06/09/15 at 1958, Day of Surgery (Day of Procedure) 1330 (New Bag - Provider: Justina Still RN)1400 (New Bag - Provider: Justina Still RN)1700 (Anesthesia Volume Adjustment - Provider: Scarlett Richards CRNA)1800 (Anesthesia Volume Adjustment - Provider: Evelyne Apple CRNA)1840 (New Bag - Provider: Evelyne Apple CRNA) sodium chloride 0.9% infusion (CANCELED) 100 mL/hr, Intravenous, CONTINUOUS, Starting on Mon06/09/15 at 1915, Until Mon06/10/15 at 1552 1852 (New Bag - Provider: Mali Guillory RN) 0544 (Rate/Dose Verify - Provider: Shamir Xiao)0704 (Stopped - Provider: Shamir Xiao) PRN Medication Order 06/08/2015 06/09/2015 06/10/2015 bacitracin injection (CANCELED) ONCE PRN, Starting on Mon06/09/15 at 1653, Until Mon06/09/15 at 1958, Intra-Operative (Intra-Procedure), Routine 1653 (Given - Provider: Ebenezer Patino III, MD - Comment: in 1L normal saline)1736 (Given - Provider: Ebenezer Patino III, MD) HYDROmorphone (DILAUDID) syringe 0.2-0.4 mg (CANCELED) 0.2-0.4 mg, Intravenous, EVERY 5 MIN PRN, Pain, Starting on Mon06/09/15 at 1839, Until Mon06/09/15 at 1958, For moderate pain (4-6) give: 0.2 mg every 5 minute prn For severe pain (7-10) give: 0.4 mg every 5 minutes prn Maximum dose: 4 mg per hour Hold for respiratory rate less than 10 per minute., PACU Recovery 1857 (Given - Provider: Mali Guillory, MATEO)1908 (Given - Provider: Mali Guillory, RN)1916 (Given - Provider: Mali Guillory, MATEO)1922 (Given - Provider: Mali Guillory, RN) oxyCODONE (ROXICODONE) immediate release tablet 10 mg(Linked Group 3) 10 mg, Oral, EVERY 4 HOURS PRN, Starting on Mon06/09/15 at 1846, Until Mon06/10/15 at 1552, Pain, severe pain (7-10), May give an additional 5 mg in 30 minutes once if pain not relieved., Routine 2131 (Given - Provider: Shamir Xiao) 0816 (Given - Provider: Laura Vallecillo RN)1259 (Given - Provider: Laura Vallecillo RN) Linked Groups Order Group 1: POCT Fingerstick Glucose (CANCELED) Routine, 4 TIMES DAILY BEFORE MEALS & AT BEDTIME, First occurrence on Mon06/09/15 at 2200, Until Specified, Consider choosing FOUR TIMES A DAY BEFORE MEALS AND AT BEDTIME as frequency for: Patients who have a good hypoglycemia awareness And insulin aspart (NovoLOG) VIAL injection 1-4 Units (CANCELED)Jump to med 1-4 Units, Subcutaneous, 3 TIMES DAILY BEFORE MEALS, First dose on Mon06/09/15 at 1915, Until Discontinued, CORRECTION BOLUS Sensitive to insulin lean patient or total daily dose of all insulin needed to achieve glycemic control less than 30 units BG 140 - 160 Give 1 unit BG 161 - 200 Give 2 units BG 201 - 240 Give 3 units BG greater than 240, give 4 units and recheck BG in 2 hours. If BG remains greater than 240, repeat 4 units (no more than three times) & call for new basal insulin orders. If less than 240 after two hours, give no insulin and resume prior schedule. Group 2: vancomycin 1 g in dextrose 5% 200 mL (COMPLETED)Jump to med 1,000 mg (1 g), Intravenous, ONCE, 1 dose, On Mon06/10/15 at 0700, Maximum infusion rate is 1 gram/hour. If flushing of the face, neck, upper body, arms, and/or back occurs decrease infusion rate by 50% to reduce the severity of symptoms. This medication may have an associated drug lab level. Please see MAR for scheduled level., STAT And Vancomycin, trough (CANCELED) Timed, PRN, Starting on Mon06/10/15 at 0635, Until Specified And Vancomycin Level - MAR Order Reminder (CANCELED) NOT APPLICABLE, PER PHARMACY, Other, Starting on Mon06/10/15 at 0635, Until Mon06/10/15 at 0637, This alert will be scheduled by a pharmacist after order placement. This order is a reminder to nursing staff to release and draw the PRN drug level at the specified time. It may be necessary to contact phlebotomy 60 minutes prior to the scheduled due time to assure a timely blood draw. Group 3: oxyCODONE (ROXICODONE) immediate release tablet 5 mg (CANCELED) 5 mg, Oral, EVERY 4 HOURS PRN, Starting on Mon06/09/15 at 1846, Until Mon06/10/15 at 1552, Pain, mild to moderate pain (1-6), May give an additional 5 mg in 30 minutes once if pain not relieved., Routine Or oxyCODONE (ROXICODONE) immediate release tablet 10 mgJump to med 10 mg, Oral, EVERY 4 HOURS PRN, Starting on Mon06/09/15 at 1846, Until Mon06/10/15 at 1552, Pain, severe pain (7-10), May give an additional 5 mg in 30 minutes once if pain not relieved., Routine documented in this encounter Care Teams Entrepreneurial Finance Professor Relationship Specialty Start Date End Date Boston Hernandez MD [facility] 1 [facility] [place] [address] PCP - General General Internal Medicine 05/27/1511/07 documented as of this encounter
--- OUTSIDE RECORDS SUMMARY | 2024-01-19 15:15 | XMS_ITS | Data Portability ---
Author Organization [place] [facility] [place] [address] Care Team Providers Care Sustainable Systems Analyst Name Role Phone [facility] Fbi Field Agent SANJUANA VINSON Urologist Assessment No assessment recorded. Plan of Treatment Reminders Order Date Submit Date Provider Last Modified By Organization Details Last Modified Time Details Appointments Office Visit 40 2023 08:00A Renee Silverman Not available Not available Not available Lab HbA1c (hemoglob in A1c), blood 2023 024 [facility] (Registration ), [address] [place] [address] [place], [address], 08/24/2023 10:19:06 BMP, serum or plasma 2023 024 [facility] (Registration ), [address] [place] [address] [place], [address], 08/24/2023 10:19:07 Referral None recorded. Procedures None recorded. Surgeries None recorded. Imaging None recorded. Medication Orders lidocaine 5 % topical ointment 2023 024 [email or web address] [id number], [address] [facility], [facility] [address], [place], [id number], 08/17/2023 09:47:08 Victoza 3-Varghese 0.6 mg/0.1 mL (18 mg/3 mL) subcutane ous pen injector [email or web address], [address] [place] [address], [address], [place], [address], 08/17/2023 09:47:08 Patient TargetsNo targets recorded. Patient Instructions Encounter Date Encounter Id Patient Instructions Last Modified By Organization Details Last Modified Time 08/17/2023 [id number] Call [facility] U[facility] y Dr. Vinson [phone] scan and surgery try loratidine (Claritin) 10mg a day for eye itching. If this doesn't work, try Alaway type drops or simply artificial tears. I am sending Sade to [facility] [email or web address] Not available 08/17/2023 09:02:43 Reason for Referral None Reported. Results Created Date Observation Date Name Description Value Unit Range Abnormal Flag LastModifiedBy Organization Detail LastModifiedTime 08/17/1908/17/2023 BASIC METAB OLIC PANEL calcium 9.6 mg/dL 8.5-10 .1 normal Not Available [address] [place], [address] 08/17/2023 15:57:23 08/17/19 24 08/17/2023 BASIC METAB OLIC PANEL glucose 202 mg/dL 74-106 high Not Available [address] [place], [address] 08/17/2023 15:57:23 08/17/19 24 08/17/2023 BASIC METAB OLIC PANEL BUN 17 mg/dL 7-18 normal Not Available [address] [place], [address] 08/17/2023 15:57:23 08/17/19 24 08/17/2023 BASIC METAB OLIC PANEL creatinine 1.0 mg/dL 0.70-1 .30 normal Not Available [address] [place], [address] 08/17/2023 15:57:23 08/17/19 24 08/17/2023 BASIC METAB OLIC PANEL estimated GFR 83.01 mL/min /1.73m 2 Not Available [address] [place], [address] 08/17/2023 15:57:23 08/17/19 24 08/17/2023 BASIC METAB OLIC PANEL sodium 138 mmol/ L 136-14 5 normal Not Available [address] [place], [address] 08/17/2023 15:57:23 08/17/19 24 08/17/2023 BASIC METAB OLIC PANEL potassium 4.4 mmol/ L 3.5-5. 1 normal Not Available [address] [place], [address] 08/17/2023 15:57:23 08/17/19 24 08/17/2023 BASIC METAB OLIC PANEL chloride 101 mmol/ L 98-107 normal Not Available [address] [place], [address] 08/17/2023 15:57:23 08/17/19 24 08/17/2023 BASIC METAB OLIC PANEL CO2 25.0 mmol/ L 21.0-3 2.0 normal Not Available [address] [place], [address] 08/17/2023 15:57:23 08/17/19 24 08/17/2023 BASIC METAB OLIC PANEL anion gap 12.0 mmol/ L 3-11 high Not Available [address] [place], [address] 08/17/2023 15:57:23 08/17/19 24 08/17/2023 HEMOG LOBIN A1C hemoglobin A1C 7.2 % <5.7 high Not Available [address] [place], [address] 08/17/2023 16:36:31 01/09/20 24 01/09/2024 COMPL ETE BLOOD COUNT W/DIF F WBC 5.73 10_3/ uL 4.4-10 .8 normal Not Available [address] [place], [address] 01/09/2024 11:50:20 01/09/20 24 01/09/2024 COMPL ETE BLOOD COUNT W/DIF F RBC 4.58 10_6/ uL 4.36-5 .78 normal Not Available [address] [place], [address] 01/09/2024 11:50:20 01/09/20 24 01/09/2024 COMPL ETE BLOOD COUNT W/DIF F HGB 13.5 g/dL 13.5-1 7.5 normal Not Available [address] [place], [address] 01/09/2024 11:50:20 01/09/20 24 01/09/2024 COMPL ETE BLOOD COUNT W/DIF F HCT 39.9 % 40.0-5 0.0 low Not Available [address] [place], [address] 01/09/2024 11:50:20 01/09/20 24 01/09/2024 COMPL ETE BLOOD COUNT W/DIF F MCV 87 fL 80-95 normal Not Available [address] [place], [address] 01/09/2024 11:50:20 01/09/20 24 01/09/2024 COMPL ETE BLOOD COUNT W/DIF F MCH 29.5 pg 27.0-3 3.0 normal Not Available [address] [place], [address] 01/09/2024 11:50:20 01/09/20 24 01/09/2024 COMPL ETE BLOOD COUNT W/DIF F MCHC 33.8 % 32.0-3 6.0 normal Not Available [address] [place], [address] 01/09/2024 11:50:20 01/09/20 24 01/09/2024 COMPL ETE BLOOD COUNT W/DIF F RDW 13.4 % 11.8-1 4.1 normal Not Available [address] [place], [address] 01/09/2024 11:50:20 01/09/20 24 01/09/2024 COMPL ETE BLOOD COUNT W/DIF F platelet count 167 10_3/ uL 130-40 0 normal Not Available [address] [place], [address] 01/09/2024 11:50:20 01/09/20 24 01/09/2024 COMPL ETE BLOOD COUNT W/DIF F MPV 9.8 fL 8.0-11 .0 normal Not Available [address] [place], [address] 01/09/2024 11:50:20 01/09/20 24 01/09/2024 COMPL ETE BLOOD COUNT W/DIF F neutrophils % 68.2 % Not Available [address] [place], [address] 01/09/2024 11:50:20 01/09/20 24 01/09/2024 COMPL ETE BLOOD COUNT W/DIF F lymphocytes % 20.8 % Not Available [address] [place], [address] 01/09/2024 11:50:20 01/09/20 24 01/09/2024 COMPL ETE BLOOD COUNT W/DIF F monocytes % 7.0 % Not Available [address] [place], [address] 01/09/2024 11:50:20 01/09/20 24 01/09/2024 COMPL ETE BLOOD COUNT W/DIF F eosinophils % 3.5 % Not Available [address] [place], [address] 01/09/2024 11:50:20 01/09/20 24 01/09/2024 COMPL ETE BLOOD COUNT W/DIF F basophils % 0.3 % Not Available [address] [place], [address] 01/09/2024 11:50:20 01/09/20 24 01/09/2024 COMPL ETE BLOOD COUNT W/DIF F immature grans % 0.2 % Not Available [address] [place], [address] 01/09/2024 11:50:20 01/09/20 24 01/09/2024 COMPL ETE BLOOD COUNT W/DIF F nucleated RBC 0.0 % 0.0-0. 3 normal Not Available [address] [place], [address] 01/09/2024 11:50:20 01/09/20 24 01/09/2024 COMPL ETE BLOOD COUNT W/DIF F absolute neutrophil count 3.91 10_3/ uL 1.2-6. 7 normal Not Available [address] [place], [address] 01/09/2024 11:50:20 01/09/20 24 01/09/2024 COMPL ETE BLOOD COUNT W/DIF F absolute lymphocyte count 1.19 10_3/ uL 1.2-3. 4 low Not Available [address] [place], [address] 01/09/2024 11:50:20 01/09/20 24 01/09/2024 COMPL ETE BLOOD COUNT W/DIF F absolute monocyte count 0.40 10_3/ uL 0.1-0. 8 normal Not Available [address] [place], [address] 01/09/2024 11:50:20 01/09/20 24 01/09/2024 COMPL ETE BLOOD COUNT W/DIF F absolute eosinophil count 0.20 10_3/ uL 0.0-0. 7 normal Not Available [address] [place], [address] 01/09/2024 11:50:20 01/09/20 24 01/09/2024 COMPL ETE BLOOD COUNT W/DIF F absolute basophil count 0.02 10_3/ uL 0.0-0. 2 normal Not Available [address] [place], [address] 01/09/2024 11:50:20 01/09/20 24 01/09/2024 COMPR EHENS EARLINE METAB OLIC PANEL calcium 9.2 mg/dL 8.5-10 .1 normal Not Available [address] [place], [address] 01/09/2024 12:09:22 01/09/20 24 01/09/2024 COMPR EHENS EARLINE METAB OLIC PANEL glucose 137 mg/dL 74-106 high Not Available [address] [place], [address] 01/09/2024 12:09:22 01/09/20 24 01/09/2024 COMPR EHENS EARLINE METAB OLIC PANEL BUN 15 mg/dL 7-18 normal Not Available [address] [place], [address] 01/09/2024 12:09:22 01/09/20 24 01/09/2024 COMPR EHENS EARLINE METAB OLIC PANEL creatinine 1.1 mg/dL 0.70-1 .30 normal Not Available [address] [place], [address] 01/09/2024 12:09:22 01/09/20 24 01/09/2024 COMPR EHENS EARLINE METAB OLIC PANEL estimated GFR 73.58 mL/min /1.73m 2 Not Available [address] [place], [address] 01/09/2024 12:09:22 01/09/20 24 01/09/2024 COMPR EHENS EARLINE METAB OLIC PANEL total protein 7.2 g/dL 6.4-8. 2 normal Not Available [address] [place], [address] 01/09/2024 12:09:22 01/09/20 24 01/09/2024 COMPR EHENS EARLINE METAB OLIC PANEL albumin 4.0 g/dL 3.4-5. 0 normal Not Available [address] [place], [address] 01/09/2024 12:09:22 01/09/20 24 01/09/2024 COMPR EHENS EARLINE METAB OLIC PANEL bilirubin, total 0.62 mg/dL 0.2-1. 0 normal Not Available [address] [place], [address] 01/09/2024 12:09:22 01/09/20 24 01/09/2024 COMPR EHENS EARLINE METAB OLIC PANEL alk phos 86 U/L 46-116 normal Not Available [address] [place], [address] 01/09/2024 12:09:22 01/09/20 24 01/09/2024 COMPR EHENS EARLINE METAB OLIC PANEL sodium 138 mmol/ L 136-14 5 normal Not Available [address] [place], [address] 01/09/2024 12:09:22 01/09/20 24 01/09/2024 COMPR EHENS EARLINE METAB OLIC PANEL potassium 4.9 mmol/ L 3.5-5. 1 normal Not Available [address] [place], [address] 01/09/2024 12:09:22 01/09/20 24 01/09/2024 COMPR EHENS EARLINE METAB OLIC PANEL chloride 102 mmol/ L 98-107 normal Not Available [address] [place], [address] 01/09/2024 12:09:22 01/09/20 24 01/09/2024 COMPR EHENS EARLINE METAB OLIC PANEL CO2 25.2 mmol/ L 21.0-3 2.0 normal Not Available [address] [place], [address] 01/09/2024 12:09:22 01/09/20 24 01/09/2024 COMPR EHENS EARLINE METAB OLIC PANEL anion gap 10.8 mmol/ L 3-11 normal Not Available [address] [place], [address] 01/09/2024 12:09:22 01/09/20 24 01/09/2024 COMPR EHENS EARLINE METAB OLIC PANEL AST 11 U/L 15-37 low Not Available [address] [place], [address] 01/09/2024 12:09:22 01/09/20 24 01/09/2024 COMPR EHENS EARLINE METAB OLIC PANEL ALT 17 U/L 16-63 normal Not Available [address] [place], [address] 01/09/2024 12:09:22 01/09/20 24 01/09/2024 MAGNE SIUM magnesium 1.4 mg/dL 1.8-2. 4 low Not Available [address] [place], [address] 01/09/2024 12:09:23 01/09/20 24 01/09/2024 TROPO BETH I troponin I < 50 NG/L < or =60 Not Available [address] [place], [address] 01/09/2024 12:09:23 01/09/20 24 01/09/2024 NT-WA OBNP nt-probnp 27 pg/mL <300 Not Available [facility] [address] [place], [address] 01/09/2024 12:09:24 09/01/19 24 09/01/2023 histo ry physi esequiel exami natio n HISTOR Y PHYSIC AL EXAMIN ATION JOHNNIE Ramesh NAME: Tracey borreroBarry fernandes UNIT #: [id number] ADMITT ING PROVID ER: Payton Rolon M.D. 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 Plan: Catara ct extrac tion with lens implan tation of the left eye. (2) Product Development Director ior subcap sular age-re lated catara ct of left eye: Status : Acute Assess ment and plan: Assess ment: Visual ly signif icant catara ct of the left eye. Plan: Catara ct extrac tion with lens implan tation of the left eye. (3) Nuclea r age-re lated catara ct, left eye: Status : Acute Assess ment and plan: Assess ment: Visual ly signif icant catara ct of the left eye. Plan: Catara ct extrac tion with lens implan tation of the left eye. Histor y of Presen t Illnes s Histor y of Presen t Illnes s Chief Compla int: Progre ssive decrea sed vision , both eyes Narrat earline: Johnnie ramesh is a 67-yea r-old male with histor y of progre ssive decrea sed vision in both eyes at both distan ce and near, left eye worse than right. He has signif icant diffic ulty drivin g at night due to glare, and can no longer read road signs. On examin ation he is noted to have signif icant bilate ral nuclea r/post erior subcap sular catara cts, left eye worse than right. The option of catara ct surger y was offere d to the patien t and he wished to procee d. Review of System s All system s review ed are unrema rkable except as noted in HPI and below PFSH All Active Proble ms (Revie mon @ 10:54 by Jennifer shay RN) Product Development Director ior subcap sular age-re lated catara ct, right eye (Acute ) Cortic al age-re lated catara ct, right eye (Acute ) Nuclea r age-re lated catara ct, right eye (Acute ) Cortic al age-re lated catara ct, left eye (Acute ) Product Development Director ior subcap sular age-re lated catara ct of left eye (Acute ) Nuclea r age-re lated catara ct, left eye (Acute ) Peyron ie's diseas e (Acute ) Memory impair ment (Acute ) 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, bilate ral (Acute ) Perone al tendin itis (Acute ) Mass of paroti d gland (Acute ) Closed fractu re of finger of left hand (Acute ) small finger Hiatal hernia (Chron ic) Foot pain, right (Acute ) Cellul itis of foot, right (Acute ) Other sprain of right should er joint, initia l encoun ter (Acute ) Fall (Acute ) SOB (short ness of breath ) (Acute ) Shortn ess of breath at rest (Acute ) Weakne ss with dizzin ess (Acute ) 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 ) Diabet es mellit us type II, uncont rolled (Chron ic) S/P gastri c bypass (Chron ic) 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 states he still signs for himsel f Low back pain Chest pain Per pt. this was relate d to when he had gastri c bypass he had scarri ng over his esopha susana, and it wasn't cardia c in nature Elevat ed biliru bin Abnorm ality of penis (11/18) Anxiet y (07/16) Benign neopla sm of colon (08/15) Depres evelia (07/16) Erecti le dysfun ction (06/19) Sensor ineura l hearin g loss, bilate ral (01/06) BPH (benig n prosta tic hyperp lasia) Surgic al Histor y (Revie mon @ 09:50 by Rg Rolon MD) Hx of cholec ystect kelli Hx of total knee replac ement Bilate ral. 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 Pete ramesh gender identi ty: male What is your relati onship status ?: migdalia strauss Panel score (0-1 are the most social ly isolat ed patien ts): 1 Additi onal Social histor y: unable to assess privat charlene Meds Allerg ies and Home Medica tions Allerg ies Allerg y/AdvR eac Type Severi ty Reacti on Status Date / Time adhesi ve Allerg y Interm ediate bliste rs Verifi ed 10:56 atorva statin Allerg y Interm ediate .chest Verifi ed 10:56 pain/d iaphro resis Home Medica tions Medica tion Instru ctions Record ed Confir med Type metfor min 1,000 mg tablet 1,000 mg PO BID Histor y (Gluco phage) gabape ntin 800 mg tablet 800 mg PO TID Histor y glipiz gita 10 mg tablet , extend ed 10 mg PO BID Histor y releas e 24 hr pantop razole 40 mg tablet ,delay ed 40 mg PO BID Histor y releas e venlaf axine 225 mg tablet ,exten ded 225 mg PO DAILY Histor y releas e 24 hr diclof enac sodium 1 % topica l gel 2 g topica l QID #50 grams Rx ([place] [facility] Pain) acetam inophe n 500 mg tablet 1,000 mg PO Q6H PRN Histor y clotri mazole 1 % topica l cream 1 applic topica l BID Histor y dulagl utide 1.5 mg/0.5 mL 1.5 mg subcut QWEEK Histor y subcut aneous pen inject or ([facility]) tamsul osin 0.4 mg capsul e (Floma x) 0.8 mg (2 x 0.4 mg) PO HS #180 caps Rx Exam Eyes Other: Most recent ocular examin ation is signif icant for correc marvin visual acuity of 20/50 right eye, 20/40 left eye. Intrao cular pressu re is 10 in each eye. Extrac t motili ty is normal . Slit-l amp examin ation shows mild nuclea r/bill ical/p osteri or subcap sular catara ct of the right eye. In the left eye there is mild nuclea r catara ct with severe cortic al and pets salesperson ior subcap sular opacif icatio n that blocks the view of the retina . Pupils dilate to 5 mm. The remain biju of the anteri or segmen t is unrema rkable . Fundus copic examin ation is unable to be perfor med in the left eye due to dense catara ct. In the right eye disc cuppin g is noted to be 0.3 with normal vessel s, macula , periph eral retina and vitreo us. Resp Auscul tation : clear to auscul tation bilate rally Percus evelia: percus evelia normal Cardio Rate: regula r rate Rhythm : regula r rhythm cc: ------ ------ ------ ------ ------ ------ ------ ------ ------ ------ ------ --- Dictat ed by: GONZALES AGUILAR, RG Fernandes Dictat ed: Time: Date: 122 3 Date: Date: Transc ribed Date: Transc ribed Time: 947 By: MARY This is privil eged, confid ential inform ation, intend ed only for the provid er named. Any use or distri bution by any person other than this doctors hospital er is strict ly prohib ited. If you receiv e this report in error, please notify us immedi ron at and return the origin al report to us at the addres s above. Thank you. [email or web address] [facility] [address], [place], [address] 09/01/2023 13:09:10 09/01/19 24 09/01/2023 physi katie dsu disch arge repor t PHYSIC RANDY DSU DISCHA RGE REPORT PATIEN T NAME: Barry Sawyer UNIT #: [id number] ADMITT ING PROVID ER: Payton Rolon M.D. ACCOUN T #: [id number] PRIMAR Y CARE PROVID ER: ELIZABETH HORN MD DATE OF ADMIT: : 1955 Date of servic e: Time of Servic e: 13:03 Discha rge Plan Dispos ition Patien t Dispos ition: Home Discha rge Detail s Attend ing Provid er: Payton Rolon Primar y Care Provid er: Elizabeth Horn Home Meds and New Rx's Prescr iption s: No Action tamsul osin [Floma x] 0.4 mg capsul e 0.8 mg PO HS Qty: 180 0RF Trulic ity 1.5 mg/0.5 mL pen inject or 1.5 mg subcut QWEEK acetam inophe n 500 mg tablet 1,000 mg PO Q6H PRN clotri mazole 1 % cream 1 applic topica l BID metfor min [Gluco phage] 1,000 MG tablet 1,000 mg PO BID diclof enac sodium [[place] [facility] Arthri tis Pain] 1 % gel 2 g topica l QID Qty: 50 0RF Rx Instru ctions : apply to single elbow, wrist or hand; for hand includ es palm/f ingers /back of hand glipiz gita 10 mg tablet extend ed releas e 24hr 10 mg PO BID Patien t Commen ts: TK 2 TS PO D FOR BS gabape ntin 800 mg tablet 800 mg PO TID Patien t Commen ts: TAKE 1 TABLET BY MOUTH THREE TIMES DAILY FOR PAIN pantop razole 40 mg tablet ,delay ed releas e (DR/EC ) 40 mg PO BID Patien t Commen ts: TK 1 T PO BID venlaf axine 225 mg tablet extend ed releas e 24hr 225 mg PO DAILY Patien t Commen ts: TAKE 1 TABLET BY MOUTH EVERY DAY Discha rge Instru ctions Stand Alone Forms: DSU Post-O p Catara ct, Cheyanne Hu (DSU) Discha rge Orders Discha rge Orders : Discha rge Order (Clarence egan); Ordere d Ordere d By: Rg Rolon DS: Diagno sis Discha rge Diagno sis (1) Cortic al age-re lated catara ct, left eye: Status : Resolv ed (2) Product Development Director ior subcap sular age-re lated catara ct of left eye: Status : Resolv ed (3) Nuclea r age-re lated catara ct, left eye: Status : Resolv ed cc: ------ ------ ------ ------ ------ ------ ------ ------ ------ ------ ------ --- Dictat ed by: RG ROLON MD Dictat ed: Time: 22 08 Date: 130 3 Date: Date: Transc ribed Date: Transc ribed Time: 130 By: MARY This is privil eged, confid ential inform ation, intend ed only for the provid er named. Any use or distri bution by any person other than this provid er is strict ly prohib ited. If you receiv e this report in error, please notify us immedi ately at [phone] and return the origin al report to us at the addres s above. Thank you. [email or web address] [facility] [address], [place], [address] 09/01/2023 13:09:10 09/01/19 24 09/01/2023 repor t of opera tion REPORT OF OPERAT ION PATIEN T NAME: Barry Sawyer dena Glenna UNIT #: [id number] ADMITT ING PROVID ER: Payton Rolon M.D. ACCOUN T #: [id number] PRIMAR Y CARE PROVID ER: ELIZABETH HORN MD DATE OF ADMIT: : 1955 Date of servic e: Time of Servic e: 13:03 Operat earline Note Operat earline Note DATE OF PROCED URE: PRE-OP DIAGNO SIS: Nuclea r/post erior subcap sular catara ct, left eye POST-O P DIAGNO SIS: same PROCED URE: Catara ct extrac tion using phacoe mulsif icatio n with intrao cular lens implan t, left eye SURGEO N: Rg Rolon ANESTH ESIA TYPE: Local By Surgeo n and MAC Refer to Anesth esia Record PATHOL OGY: none sent COMPLI CATION S: None Patialexx ramesh was transp orted to: same day Patien gadiel's condit ion: stable Implan ts: Ge Clareo n [id number] Indica tions: Progre ssive decrea sed vision due to catara ct, left eye Proced ure Descri ption: CATARA CT SURGER Y OPERAT EARLINE REPORT PREOPE RATIVE DIAGNO SIS: Nuclea r/post erior subcap sular catara ct, left eye POSTOP ERATIV E DIAGNO SIS: Same OPERAT ION: Catara ct extrac tion using phacoe mulsif icatio n with pets salesperson ior chambe r intrao cular lens implan t, left eye. IOL: IOL Manufa cturer /Model : Ge Clareo n [id number] IOL Power: + 18.0 diopte rs IOL Serial Number : [id number] Optic Diamet er: 6.0mm Haptic /Overa ll Diamet er: 13.0mm PHACO INFO: Ge Centur ion Vision System with OZil and Active Fluidi cs Cumula tive Disper sed Energy (CDE): 8.12 second s SURGEO N: Rg Rolon MD, LYNDSEY ANESTH ESIA: Monito red Anesth esia Care (MAC), with local sub-te non's anesth etic infilt ration COMPLI CATION S: None SPECIM ENS: None INDICA TIONS FOR PROCED URE: The patien gadiel is a 67-yea r-old male with histor y of dimini shed visual acuity in his left eye. He is noted to have a dense cortic al and pets salesperson ior subcap sular catara ct with mild nuclea r catara ct in the left eye. He is signif icantl y sympto matic that he desire s catara ct surger y and attemp t to improv e and maximi ze his vision . See office notes for detail ed inform ation. PROCED URE: The correc t surgic al eye was identi fied and marked as the left eye and the pupil was dilate d in the preope rative area using mydria tics and cyclop legics . The dilate d pupil size was 7.0 mm. The patien t electe d to procee d withou t oral sedati on. The patien t was rakan t to the operat ing room where cardio pulmon dada monito ring was instit uted and surgic al time-o ut was perfor med, confir isreal the correc t operat earline eye and IOL power. Topica l anesth esia was admini stered and ophtha lmic povido ne-iod ine 5% was instil led into the conjun ctival fornic es. The elodia-o cular area was preppe d with Betadi ne 10% soluti on and draped in the usual steril e fashio n for intrao cular surger y, includ ing an apertu re drape. A Tegade rm transp arent film dressi ng was cut in half and used to cover the lashes and lid margin s. Care was taken to seques ter the lashes and lid margin s under the Tegade rm dressi ng. A lid specul um was placed betwee n the lids of the operat earline eye and the Ge LuxOR Revali a operat ing micros cope was maneuv ered into positi on. [place] tt scisso rs were then used to make a conjun ctival button hole approx imatel y 6mm pets salesperson ior to the limbus in the infero nasal quadra nt. Blunt dissec tion was angelo d out to expose bare sclera , and a blunt- tipped sub-te non??? s anesth esia cannul a was introd uced and passed pets salesperson iorly along the globe where non-pr eserve d plain lidoca ine was inject ed into pets salesperson ior sub-Te non??? s space. A sidepo rt knife was used to make a parace ntesis port. Vision Blue was inject ed into the anteri or chambe r and allowe d to sit for 20 second s. Intrao cular phenyl ephrin e/lido georgette was inject ed into the anteri or chambe r. The anteri or chambe r was then filled with viscoe lastic . A kerato me knife was used constr uct a two-pl ane clear cornea l tunnel extend ing 2.0mm into clear cornea . A flap was raised on the anteri or capsul e and capsul orhexi s forcep s were used to comple te a contin uous curvil inear capsul orhexi s of 5.5 mm. Balanc ed salt soluti on was then used to perfor m cortic al cleavi ng hydrod issect ion and nuclea r hydrod elinea tion until the lens could be freely rotate d within the capsul ar bag. The lens nucleu s was then disass embled and remove d within the capsul ar bag and iris plane using phacoe mulsif icatio n. Residu al cortic al materi al was remove d using the irriga tion/a spirat ion handpi lino. The pets salesperson ior capsul e was carefu lly georgian ed to remove as much residu al lens epithe lial cells as safely possib le. The capsul ar bag was then inflat ed and the anteri or chambe r deepen ed with viscoe lastic . The lens implan t descri bed above was insert ed into the capsul ar bag using the Ge Autono me Inject or. A Kuglen hook was used to dial the IOL into positi on. Residu al viscoe lastic was then remove d first from pets salesperson ior to the IOL, then from the anteri or chambe r using the I/A handpi lino. The lens implan t was noted to center nicely within the capsul ar bag. The incisi ons were stroma lly hydrat ed, and the anteri or chambe r was reform ed using BSS. Then 0.5cc of moxifl oxacin 1.0mg/ ml were inject ed into the capsul ar bag and anteri or chambe r. The incisi ons were checke d with a Weck spear and found to be secure . Severa l drops of ophtha lmic povido ne-iod ine 5% were then applie d to the eye follow ed by two drops of combin ation steroi d/NSAI D/anti biotic soluti on. The drapes were remove d and a clear plasti c protec tive eye shield was placed over the eye. The patien t was then return ed to [facility] in stable condit ion. cc: ELIZABETH HORN MD ------ ------ ------ ------ ------ ------ ------ ------ ------ ------ ------ --- Dictat ed by: GONZALES AGUILAR, RG N Dictat ed: Time: 13 Date: 130 5 Date: Date: Transc ribed Date: Transc ribed Time: 130 By: MARY This is privil eged, confid ential inform ation, intend ed only for the provid er named. Any use or distri bution by any person other than this provid er is strict ly prohib ited. If you receiv e this report in error, please notify us immedi ately at [phone] and return the origin al report to us at the addres s above. Thank you. [email or web address] [facility] [address], [place], [address] 09/01/2023 13:09:11 01/09/20 24 01/09/2024 x-ray imagi ng repor t Patien t Name: Tracey borreroBarry fernandes Glenna Unit #: [id number] Loc: ER Orderi ng Provid er: Melisa Medrano i, M.D. t #: [id number] Status : REG ER Primar y Care Provid er: Elizabeth Horn Date of Exam: Sex: M Admiss ion Date: : 1955 Age: 68 Exam(s ) XR PORTAB LE CHEST AP EXAM: XR PORTAB LE CHEST AP CLINIC AL HISTOR Y: SOB. TECHNI QUE: 2D digita l imagin g was perfor med. COMPAR ANYA: CR,XR XR CHEST 2V PA LATERA L from 2021 FINDIN GS: Single AP portab le view. Heart size is upper normal . The medias tinum is not widene d. No new infilt rates nor pleura l effusi ons. No pulmon dada edema. No pneumo thorax . IMPRES EVELIA: No acute pulmon dada findin gs on this single AP portab le view of the chest. DATA REPOSI TORY: RADIAT ION DOSE DELIVE RED: Ordere d By: Melisa Medrano i, M.D. CC: ------ ------ ------ ------ ------ ------ ------ ------ ------ ------ ------ ------ - Dictat ed By: Yoel Gomez M.D. [id number] Transc ribed By: Patricia AGUILAR,How puja 1206 This is privil eged, confid ential inform ation intend ed only for the provid er named. Any use or distri bution by any person other than this provid er is strict ly prohib ited. If you receiv e this report in error, please notify us immedi ately at and return the origin al report to us at the addres s above. Thank- you. [email or web address] [facility] [address], [place], [address] 01/09/2024 20:01:52 Result Notes None recorded. 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 He may be getting some stenosis of urethra related to prosthesis. Problem Code: N48.6; Problem Code Type: ICD-10; Not Available [facility] 4 04:48:29 Obesity Active 2014 Problem Code: E66.9; Problem Code Type: ICD-10; Not Available [facility] 4 04:48:29 Anxiety Active 201406/30/2021 - Comments only - Elizabeth Horn MD - Struggling with some depression since daughter , but seeing therapist twice a week. Discussed options. Will refill gabapenitn as helps with pain and sleep. COntinue SNRI, trazodone prn Problem Code: F41.8; Problem Code Type: ICD-10; Not Available [facility] 4 04:48:29 Gastroesophag eal reflux disease without esophagitis Active 201408/06/2021 - Comments only - Elizabeth Horn MD - I agree with Elizabeth that his symtoms may be esophogeal. He was evaluated by cardiology and had negative ETT 07/29, he is cleared to procede with EGD. Will send not to Dr. Coe. Problem Code: K21.9; Problem Code Type: ICD-10; Not Available [facility] 4 04:48:29 Osteoarthriti s Active 201406/18/2020 - Comments only - Elizabeth Horn MD - Has diffuse pain. On SNRI and gabapentin. Discussed limitations of evidence for gabapenting and risks. DIscussed concern with alcohol. He would like to try higher dose and will try to cut out alcohol again. Problem Code: M19.90; Problem Code Type: ICD-10; Not Available [facility] 4 04:48:29 Type 2 diabetes mellitus without complication Active 201405/25/2022 - Comments only - Elizabeth Horn MD - A1c down dramatically. This may be partially due to blood loss of surgery, but should stop glipizide to avoid lows. Problem Code: E11.9; Problem Code Type: ICD-10; Not Available [facility] 4 04:48:29 Shoulder joint pain Active 2016 Problem Code: M25.519; Problem Code Type: ICD-10; Not Available [facility] 4 04:48:29 Amnesia Active 201604/10/2017 - Comments only - Elizabeth Horn MD - MOCA does suggest mild cognitive impairment. Had reading issue as child but always good at math. We did basic labs back in September. B12 was borderline. Early alzhiemers in family. May be developing this but I would like to monitor off alcohol, get neuroimaging before considering cholinergic medication. Now admits to alcohol abuse, which is likely contrubuting. Problem Code: R41.3; Problem Code Type: ICD-10; Not Available [facility] 4 04:48:29 History of bariatric surgical procedure Active 2016 Problem Code: Z98.84; Problem Code Type: ICD-10; Not Available [facility] 4 04:48:29 Hearing loss Active 2016 Problem Code: H91.90; Problem Code Type: ICD-10; Not Available [facility] 4 04:48:29 History of clinical finding in subject Active 201607/15/2020 - Comments only - Elizabeth Horn MD - Admits he relapsed, but he feels good about sobriety now, reconnecting with AA meetings. Discussed medical options if he feels he needs them. Problem Code: Z87.898; Problem Code Type: ICD-10; Not Available [facility] 4 04:48:29 Idiopathic osteoarthriti s Active 201703/14/2018 - Comments only - Elizabeth Horn MD - s/p bilateral knee replacement. Doing quite well overall. He would like additional pain options, but I don't think adding NSAIDs or additiona opioids would be beneficial. Problem Code: M17.0; Problem Code Type: ICD-10; Not Available [facility] 4 04:48:29 Low back pain Active 201701/22/2018 - Comments only - Elizabeth Horn MD - Looking for help with pain and sleep. Described back spasms in addition to chronic knee pain. Rather than benzo, try muscle relaxer short term as needed. Problem Code: M54.5; Problem Code Type: ICD-10; Not Available [facility] 4 04:48:29 Essential hypertension Active 201705/25/2022 - Comments only - Elizabeth Horn MD - BP running low. Microalb okay. He should not be on GERMÁN any more. 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 Prescribed ciprodex drops BID x 7 days. Advised pt to use warm compresses for comfort and avoid putting anything else in ear (peroxide, ointments, Qtips, etc). Pt to f/u if not significantly improved in 2-3 days. Problem Code: H60.90; Problem Code Type: ICD-10; Not Available [facility] 3 05:39:52 Lower urinary tract symptoms due to benign prostatic hypertrophy Active 201906/18/2020 - Comments only - Elizabeth Horn MD - Discussed options, try tamsulosin Problem Code: N40.1; Problem Code Type: ICD-10; Not Available [facility] 4 04:48:29 Nonalcoholic steatohepatit is Active 202012/20/2022 - Comments only - Elizabeth Horn MD - Exam benign, repeat CBC/CMP with labs to assess fibrosis Problem Code: K75.81; Problem Code Type: ICD-10; Not Available [facility] 4 04:48:29 History of disorder of digestive system Active 202007/15/2020 - Comments only - Elizabeth Horn MD - Epigastric pain appears to have been caused by partial obstruction/s tenosis of enastamosis, as his symptoms and LFTs improved after dilation. Follow up per surgery. Problem Code: Z87.19; Problem Code Type: ICD-10; Not Available [facility] 4 04:48:29 Peroneal tendinitis Active 202011/25/2020 - Comments only - Elizabeth Horn MD - MRI demonstrated peroneal tendonitis/sy novitis on right. He is slowly improving, though now evidence of the same on the left. We discussed conservative treatment, given handout. Will refer to podiatry Continue topical diclofenac. Problem Code: M76.70; Problem Code Type: ICD-10; Not Available [facility] 4 04:48:29 Disorder of salivary gland Active 202110/05/2021 - Comments only - Elizabeth Horn MD - ENT consult to review CT, see if additional imaging or biopsy needed. Problem Code: K11.8; Problem Code Type: ICD-10; Not Available [facility] 4 04:48:28 History of fracture Active 202108/23/2022 - Comments only - Elizabeth Horn MD - Ortho follow up reviewed. Can use prn lidocaine to area of scar as helps along with topical diclofenac Problem Code: Z87.81; Problem Code Type: ICD-10; Not Available [facility] 4 04:48:29 Screening for disorder Completed 201804/05/2023 01/02/2019 - Comments only - Elizabeth Horn MD - I don't think related to current SOB, but given daytime sleepiness, fitful sleep, and snoring should get sleep study. Problem Code: Z13.89; Problem Code Type: ICD-10; Not Available [facility] 3 05:39:55 Chest pain Completed 201706/20/2018 Problem Code: R07.9; Problem Code Type: ICD-10; Not Available [facility] 3 05:39:55 History of polyp of colon Completed 201512/20/2022 Problem Code: Z86.010; Problem Code Type: ICD-10; Not Available [facility] 3 05:39:56 Cellulitis Completed 202011/25/2020 Problem Code: L03.90; Problem Code Type: ICD-10; Not Available [facility] 3 05:39:56 Hyperlipidemi a Completed 201405/27/2015 Problem Code: E78.5; Problem Code Type: ICD-10; Not Available [facility] 3 05:39:56 Lyme disease Completed 201601/22/2018 Problem Code: A69.20; Problem Code Type: ICD-10; Not Available [facility] 3 05:39:57 Pain of joint of knee Completed 201704/05/2023 07/24/2017 - Comments only - Elizabeth Horn MD - May be residual from lyme, but may also be OA. Will get XR. Clinically some evidence of pes anserine bursitis. If getting worse, consider bursa or joint injection on f/u Problem Code: M25.569; Problem Code Type: ICD-10; Not Available [facility] 3 05:39:57 Pain of right shoulder joint Completed 201605/03/2021 Problem Code: M25.511; Problem Code Type: ICD-10; Not Available [facility] 3 05:39:57 Steatosis of liver Completed 202004/05/2023 07/15/2020 - Comments only - Elizabeth Horn MD - Fatty liver seem on imaging, but as above the acute liver inflammation improved immediately after bowel stenosis dilated. Complicated by excessive alcohol use, now back off alcohol. It does not appear he has cirrhosis on imaging or per history and exam. Will repeat CBC/CMP today. If it does not suggest advanced fibrosis per NAFLD/FIB-4 scores, I don't think he necessarily needs hepatology evaluation. Problem Code: K76.0; Problem Code Type: ICD-10; Not Available [facility] 3 05:39:57 Pain of left shoulder joint Completed 201403/27/2016 Problem Code: M25.512; Problem Code Type: ICD-10; Not Available [facility] 3 05:39:58 Chest pain Completed 201601/22/2018 Problem Code: R07.89; Problem Code Type: ICD-10; Not Available [facility] 3 05:39:58 Dyspnea Completed 201605/25/2022 Problem Code: R06.09; Problem Code Type: ICD-10; EUGENIO FULLER [address], [place], [address] , [facility]. 4 08:13:24 Neutropenia associated with infectious disease Completed 202011/25/2020 Problem Code: D70.3; Problem Code Type: ICD-10; Not Available [facility] 3 05:39:59 Pain of left shoulder joint Completed 201604/05/2023 Problem Code: M25.512; Problem Code Type: ICD-10; Not Available [facility] 3 05:39:59 Hyperkalemia Completed 202011/25/2020 Problem Code: E87.5; Problem Code Type: ICD-10; Not Available [facility] 3 05:40:00 Herpes zoster Completed 201510/29/2015 Problem Code: B02.9; Problem Code Type: ICD-10; Not Available [facility] 3 05:40:01 Dizziness and giddiness Completed 201604/05/2023 04/10/2017 - Comments only - Elizabeth Horn MD - While here in office developed lightedness. Normal neurologic and CV including EKG, but symptoms evolving here in the office, also having numbness in left arm and leg and pain in chest and upper back. Given this, EMS called to take to [facility] ED. Problem Code: R42; Problem Code Type: ICD-10; Not Available [facility] 3 05:40:01 Diarrhea Completed 202105/25/2022 Problem Code: R19.7; Problem Code Type: ICD-10; Not Available [facility] 3 05:40:01 Musculoskelet al symptom Completed 201601/22/2018 Problem Code: R29.91; Problem Code Type: ICD-10; Not Available [facility] 3 05:40:01 Otalgia of right ear Completed 201605/03/2021 Problem Code: H92.01; Problem Code Type: ICD-10; Not Available [facility] 3 05:40:02 Pre-surgery evaluation Completed 201503/27/2016 Problem Code: Z01.818; Problem Code Type: ICD-10; Not Available [facility] 3 05:40:03 General examination of patient Completed 201601/22/2018 Problem Code: Z00.8; Problem Code Type: ICD-10; Not Available [facility] 3 05:40:03 Adult health examination Completed 201405/27/2015 Problem Code: Z00.00; Problem Code Type: ICD-10; Not Available [facility] 3 05:40:04 Alcohol abuse Completed 202010/01/2020 Problem Code: F10.10; Problem Code Type: ICD-10; Not Available [facility] 3 05:40:06 Bilateral itching of eyes Active [address], [facility] [address] [facility] 4 08:54:57 Chronic alcoholism in remission Active [address], [facility] [id number] [place] [address] 4 09:46:46 Cataract Active [address], [facility] [id number] [place] [address] 4 12:57:09 Dyspnea Active 2023 Problem Code: R06.09; Problem Code Type: ICD-10; [address], [facility] [address] , [facility] 4 08:13:23 Notes:Some problems listed i n Document: #[id number] could not be added to this patient's chart. Please review this document and add these problems to the patient's chart manually as needed. Problem Notes None recorded. Procedures Surgical History None recorded. Imaging Results Imaging Date Name Status LastModified by Organiz ation Details LastModified Time 09/01/2023 history physical examination completed [address] [facility] [place], [address] 09/01/2023 13:09:10 09/01/2023 physician dsu discharge report completed [email or web address] [address] [place], [address] 09/01/2023 13:09:10 09/01/2023 report of operation [email or web address] [address] [place], [address] 09/01/2023 13:09:11 01/09/2024 x-ray imaging report completed [email or web address] [address] [place], [address] 01/09/2024 20:01:52 Procedure Notes None recorded. Medical Equipment None Reported. Allergies Allergen ID Allergen Name Allergen Category Reaction Reaction Severity Criticality Documentation Date Start Date Code Code System Note Provider Name and Address Organization Details Recorded Time 60251 adhesive tape environme nt,medica tion rash mild Not available 05/19/20232014 skin rash Aller gyRea ction : 'skin rash' ; Not Available [facility] 3 16:25:29 Medications Name Sig Start Date Stop Date Status Note LastModified by Organization Details LastModified Time Prescript ion - Prior Authoriza tion Request active Not Available Not Available Not Available freestyle lite blood glucose monito ring system w/device kit active Not Available Not Available Not Available freestyle lite test strips strp active Not Available Not Available Not Available cyclobenz aprine 10 mg tablet take 1 tablet by mouth at bedtime if needed for muscle spasm 10/08 completed Not Available Not Available Not Available amoxicill in 500 mg capsule Take 1 cap by mouth three times daily 12/16 completed Not Available Not Available Not Available atorvasta tin 80 mg tablet Take 1 tab by mouth daily at bedtime to prevent heart disease 06/02 completed Not Available Not Available Not Available venlafaxi ne ER 75 mg capsule,e xtended release 24 hr TAKE 1 CAPSULE BY MOUTH ONCE A DAY active Not Available Not Available No t Available gabapenti n 600 mg tablet TAKE 1 TABLET BY MOUTH EVERY MORNING& 2 AT BEDTIME 2019 active Not Available Not Available Not Avai lable tizanidin e 2 mg tablet take 1 tablet every 8 hours as needed for pain for short term use for spasms. 12/16 completed Not Available Not Available Not Available albuterol sulfate 2.5 mg/3 mL (0.083 %) solution for nebulizat ion Inhale contents of 1 ampule via nebulize r every 4-6 hours as needed 2020 active Not Available Not Available Not Avai lable Vitamin C 500 mg tablet take 1 tablet daily 01/20 completed Not Available Not Available Not Available trazodone 50 mg tablet 1 tablet by mouth every night as needed 12/20 completed Not Available Not Available Not Available Carafate 1 gram tablet 1 tab 4 times a day before meals 01/20 completed Not Available Not Available Not Available lidocaine 5 % topical cream Apply 1 a small amount to affected area twice a day 05/27 completed Not Available Not Available Not Available ibuprofen 800 mg tablet Take 1 by mouth three times daily prn 12/13 completed Not Available Not Available Not Available FreeStyle Test strips check blood glucose 2 times a day 2023 active Not Available Not Available Not Avai lable glipizide ER 10 mg tablet, extended release 24 hr TAKE 1 TABLET BY MOUTH TWICE DAILY 02/02 completed Not Available Not Available Not Available lisinopri l 20 mg tablet Take 1 tab by mouth daily for blood pressure 2019 active Not Available Not Available Not Avai lable venlafaxi ne ER 150 mg capsule,e xtended release 24 hr Take 1 capsule by mouth once a day with 75 mg capsule active Not Available Not Available No t Available Protonix 20 mg tablet,de layed release Take 1 tab by mouth daily 10/08 completed Not Available Not Available Not Available penicilli n V potassium 500 mg tablet active Not Available Not Available Not Available omeprazol e 40 mg capsule,d elayed release Take 1 by mouth twice daily 10/04 completed [facility] Not Available Not Available Not Available aspirin 81 mg tablet,de layed release Take 1 tablet every day by oral route. 11/21 completed Not Available Not Available Not Available acetamino phen 500 mg tablet Take 2 tablets every 6 hours by oral route as needed. active Not Available Not Available No t Available amoxicill in 500 mg tablet Take 4 tablet by mouth 12/20 completed Dental prescrip tion Not Available Not Available Not Available acyclovir 800 mg tablet 1 5x/d 7 days 10/23 completed Not Available Not Available Not Available ofloxacin 0.3 % ear drops 10 drops in affected ear once a daily for 7 days 12/20 completed Not Available Not Available Not Available magnesium oxide 400 mg (241.3 mg magnesium ) tablet TAKE 1 TABLET BY MOUTH DAILY 11/09 completed Not Available Not Available Not Available Silvadene 1 % topical cream Apply layer of cream to affected area daily until skin is healed. 07/14 completed Not Available Not Available Not Available tamsulosi n 0.4 mg capsule Take 2 capsules every day by oral route in the evening. active Not Available Not Available No t Available gabapenti n 800 mg tablet Take 1 tablet by mouth three times a day active Not Available Not Available No t Available paroxetin e 30 mg tablet Take 1 tab by mouth daily. 01/20 completed Not Available Not Available Not Available pantopraz ole 40 mg tablet,de layed release TAKE 1 TABLET BY MOUTH EVERY DAY active Not Available Not Available No t Available metformin 1,000 mg tablet TAKE 1 TABLET BY MOUTH TWICE DAILY active Not Available Not Available No t Available lisinopri l 10 mg tablet Take 1/2 tablet by mouth once a day 05/03 completed Not Available Not Available Not Available promethaz ine 25 mg tablet active Not Available Not Available Not Available oxycodone 5 mg capsule take 1 capsule PO Q6H PRN severe pain 01/02 completed [facility] Not Available Not Available Not Available Iron (Ferrous Gluconate ) 325 mg tablet 1 tab daily 12/13 completed Not Available Not Available Not Available Magnesium -Oxide 400 mg tablet Take 1 tab by mouth daily 12/16 completed Not Available Not Available Not Available Risperdal 0.5 mg tablet Take 1 tab by mouth twice a day 12/17 completed Not Available Not Available Not Available cephalexi n 500 mg tablet Take 1 tab by mouth three times daily X 7 days 11/15 completed Not Available Not Available Not Available aspirin 81 mg tablet Take 1 tablet by mouth once a day 08/06 completed Not Available Not Available Not Available metoprolo l succinate ER 25 mg tablet,ex tended release 24 hr Take 1 tab by mouth daily to protect heart 10/04 completed Not Available Not Available Not Available lorazepam 1 mg tablet Take 1 tab by mouth daily as needed for anxiety 01/22 completed Not Available Not Available Not Available ibuprofen 600 mg tablet take 1 tablet PO QID PRN pain 01/02 completed [facility] Not Available Not Available Not Available [place] 5 mg-325 mg tablet Take 1 tablet BID as needed 03/31 completed Not Available Not Available Not Available multivita min capsule 1 tab daily 01/20 completed Not Available Not Available Not Available fluticaso ne propionat e 50 mcg/actua tion nasal spray,fransisco pension 2 spray each nostril daily 11/09 completed Not Available Not Available Not Available clotrimaz ole 1 % topical cream Apply twice a day 2020 active Not Available Not Available Not Avai lable lisinopri l 2.5 mg tablet Take 1 by mouth daily 05/27 completed Not Available Not Available Not Available glipizide 5 mg tablet Take 1 tab by mouth twice daily 2015 active Not Available Not Available Not Avai lable amoxicill in 875 mg-potass ium clavulana te 125 mg tablet active Not Available Not Available Not Available oxycodone 5 mg tablet TAKE 1 TABLET BY MOUTH EVERY 6 HOURS NEEDED FOR PAIN active Not Available Not Available No t Available cyclobenz aprine 5 mg tablet TAKE 1 TABLET BY MOUTH THREE TIMES DAILY active Not Available Not Available No t Available Ciprodex 0.3 %-0.1 % ear drops,fransisco pension Use 4 drops in affected ear twice a day for 7 days. 02/17 completed Not Available Not Available Not Available OneTouch UltraSoft Lancets Use three times a day 2015 active Not Available Not Available Not Avai lable BD Ultra-Fin e Mini Pen Needle 31 gauge x 3/16 Use 1 needle subcutan eously once a day to inject Victoza active Not Available Not Available No t Available FreeStyle Lite Meter kit Use 1 2020 active Not Available Not Available Not Avai lable omeprazol e 20 mg tablet,de layed release Take 1 by mouth daily 07/06 completed Not Available Not Available Not Available diclofena c 1 % topical gel APPLY 2 GRAMS TO THE AFFECTED AREA EVERY 8 HOURS NEEDED FOR ANKLE TENDONIT IS active Not Available Not Available No t Available venlafaxi ne ER 225 mg tablet,ex tended release 24 hr Take 1 tablet once a day 02/02 completed Not Available Not Available Not Available venlafaxi ne ER 150 mg tablet,ex tended release 24 hr Take 1 tablet by mouth once a day with 75 mg tablet 02/14 completed Not Available Not Available Not Available venlafaxi ne ER 75 mg tablet,ex tended release 24 hr Take 1 tablet by mouth once a day with 150 mg tablet 02/14 completed Not Available Not Available Not Available glipizide ER 10 mg 24 hr tablet,ex tended release Take 1 tablet twice a day by oral route. active Not Available Not Available No t Available Vitamin D3 50 mcg (2,000 unit) capsule take 1 capsule daily 01/20 completed Not Available Not Available Not Available lidocaine 5 % topical ointment Apply by topical route for 25 days. active Not Available Not Available No t Available Victoza 3-Varghese 0.6 mg/0.1 mL (18 mg/3 mL) subcutane ous pen injector 2023 active Not Available Not Available Not Avai lable lidocaine HCl 4 % topical cream Apply as directed to affected area every six hours as needed for pain 12/20 completed Not Available Not Available Not Available Jardiance 10 mg tablet Take 1 tablet by mouth daily 01/02 completed Not Available Not Available Not Available Trulicity 1.5 mg/0.5 mL subcutane ous pen injector Inject 0.5 mL every week by subcutan eous route. active Not Available Not Available No t Available Trulicity 0.75 mg/0.5 mL subcutane ous pen injector inject 1.5mg subcutan eous once a week E11.9 07/14 completed Not Available Not Available Not Available Imodium A-D 2 mg capsule 10/22 completed Not Available Not Available Not Available OneTouch Ultra2 Meter test blood glucose with all meals. Dx: E11.9 12/16 completed Not Available Not Available Not Available OneTouch UltraSoft 2 Lancet 30 gauge active Not Available Not Available Not Available Vitals Date Recorded Body height Body mass index (BMI) Body weight Body temperature Oxygen saturation Oxygen saturation in Arterial blood by Pulse oximetry Respiratory rate Heart rate Systolic blood pressure Diastolic blood pressure Provider Name and Address Organization Details Last Updated DateTime 4 177.8 cm 31.6 kg/m2 14132.3 2 g 98 [degF] 96 % 96 % 16 /min 68 /min 122 mm[Hg] 74 mm[Hg] KIMMY DUBOIS RN CT - [facility] 4 08:23:05 Social History None recorded. Functional Status None recorded. Mental Status None recorded. Family History Relationship Description Onset Age of this Age Resolved Age Notes Unspecified Relation Family history unknown Relative: 'First Degree Blood Relative'; Notes:*Problem: Mother: at age 79 from Alzheimer's disease. Father: at age 87 with history of colon cancer. Family history of polyps . Medical History No medical history recorded. Immunizations Vaccine Type Date Status Provider Name and Address Organization Details Recorded Time Tdap 07/16/2014 completed Not Available [facility] 04:48:30 Td(adult) unspecified formulation 07/19/2021 completed Not Available [facility] 07/18/2023 04:48:30 Influenza, split virus, trivalent, preservative 04/06/2018 completed Not Available [facility] 07/18/2023 04:48:30 Influenza, split virus, quadrivalent, PF 03/13/2020 completed Not Available [facility] 07/18/2023 04:48:30 Influenza, split virus, quadrivalent, preservative 04/10/2017 completed Not Available [facility] 07/18/2023 04:48:30 COVID-19, mRNA, LNP-S, PF, 30 mcg/0.3 mL dose 09/19/2020 completed Not Available [facility] 07/18/2023 04:48:30 COVID-19, mRNA, LNP-S, PF, 30 mcg/0.3 mL dose 10/10/2020 completed Not Available [facility] 07/18/2023 04:48:30 SARS-COV-2 (COVID-19) vaccine, UNSPECIFIED 04/14/2021 completed Not Available [facility] 07/18/2023 04:48:30 Pneumococcal conjugate PCV20, polysaccharide PQO038 conjugate, adjuvant, PF 05/25/2022 completed Not Available [facility] 07/18/2023 04:48:30 pneumococcal polysaccharide PPV23 07/16/2014 completed Not Available [facility] 2023 04:48:30 influenza, unspecified formulation 03/09/2015 completed Not Available [facility] 07/18/2023 04:48:30 influenza, unspecified formulation 04/13/2021 completed Not Available [facility] 07/18/2023 04:48:30 influenza, unspecified formulation 04/28/2016 completed Not Available [facility] 07/18/2023 04:48:30 Influenza, high-dose, quadrivalent, PF 04/20/2023 completed Not Available [facility] 07/21/2023 05:33:12 COVID-19, mRNA, LNP-S, PF, lucio-sucrose, 30 mcg/0.3 mL 04/20/2023 completed Not Available [facility] 07/21/2023 05:33:12 Past Encounters Encounter ID Performer Location Encounter Start Date Encounter Closed Date Diagnosis/Indication Diagnosis SNOMED-CT Code [id number] ELIZABETH HORN MD [address] [place] [address] 08/17/2023 08:04:45 08/17/2023 09:13:13 Type 2 diabetes mellitus without complication 991512730 Induration penis plastica 0101172 Bilateral itching of eyes 76155196133776 102 Idiopathic osteoarthritis 580700738 History of small bowel obstruction 86700613781105 9106 Chronic al coholism in remission 857047172 Health Concerns Section Related Observation LastModified by Organization Detai ls LastModified Time None Recorded Concern Status LastModified by Organization Details LastModified Time None Recorded Advance Directives Directive None Recorded Payers Encounter Date Sequence Insurance Name Policy Number Policy Limon Covered Member ID Limon Member ID Guarantor Name 08/17/2023 1 [id number]IC[place]/ [place]ANTAGE - PPO) [id number] Elizabeth Betancur [id number] Elizabeth Betancur Notes Date Note Type Note Provider Name and Address Organization Details Recorded Time 08/17/2023 text/html HPI Notes: Naomi zarate cataract surgery 09/01 or 09/02. He is concerned that his eye are itchy and he doen't know what he should do. He thinks it is related to allergies or dust because he sneezes as well. Wonders if it is related to his CPAP as well. Not taking medication now for allergies. He has a $1000 deductable, feels like he can't afford trulicty any more. Also taking metformin. Saw urology. planning surgery for failed prosthesis. Hasn't heart about CT scan. ELIZABETH HORN MD [address], [place], [address], [facility]. 08/17/2023 09:46:57
--- OUTSIDE RECORDS SUMMARY | 2024-01-19 15:15 | XMS_ITS | Encounter Summary ---
Author Organization [facility] Address [address] [place] [address] Care Team Providers Care Ball Racker Name Role Phone Yung Horn MD Primary Care Provider [phone] Encounter Details Date Type Department Care Team (Late st Contact Info) Description 07/06/2020 Lab Requisition [facility] Pathology & Laboratory Medicine - [facility] [address] [place] [address] Krystin Coe, DO [address] [place] [address] Encounter for other general examination Social History [...] Date/Time Associated Diagnosis Comments SURGICAL PATHOLOGY Today 07/04/2020 10 :20 EST Encounter for other general examination documented in this encounter Results * SURGICAL PATHOLOGY (07/04/2020 10:20 EST) Final Diagnosis A. DUODENUM, ANASTOMOSIS, BIOPSY: - Small bowel mucosa with no specific pathologic features. B. STOMACH, MICRO POUCH, BIOPSY: - Gastric body type mucosa with no specific pathologic features. C. GASTROESOPHAGEAL JUNCTION, BIOPSY: - Fundic type mucosa with no specific pathologic features. - Negative for intestinal metaplasia; negative for dysplasia. D. ESOPHAGUS, DISTAL, BIOPSY: - Esophageal mucosa with no specific pathologic features. 07/08/2020 9:50 [facility] Attestation By the signature below, the attending physician certifies that they have 1) personally conducted a gross and/or microscopic examination of the described specimen(s), and/or personally interpreted the results of laboratory testing of the described specimen(s), and 2) personally rendered or confirmed the above diagnosis. 07/08/2020 9:50 [facility] at 0950 Clinical History Dysphagia 07/08/2020 9:50 [facility] Gross Description A. Received in formalin labelled with proper patient identification (initials B, J) and duodenal anastomosis are 3 fragments of hernandez soft tissue (ranging from 0.2 cm to 0.4 cm in greatest dimension). The specimen is entirely submitted in A1. B. Received in formalin labelled with proper patient identification (initials B, J) and gastric micro pouch is a single fragment of hernandez soft tissue (0.6 x 0.2 x 0.2 cm). The specimen is entirely submitted in B1. C. Received in formalin labelled with proper patient identification (initials B, J) and GE junction is a single fragment of hernandez soft tissue (0.4 x 0.3 x 0.2 cm). The specimen is entirely submitted in C1. D. Received in formalin labelled with proper patient identification (initials B, J) and distal esophagus is a single fragment of hernandez-ho soft tissue (0.4 x 0.3 x 0.2 cm). The specimen is entirely submitted in D1. EUGENIO HERNÁNDEZ(ASCP) 07/06/2020 17:12 07/08/2020 9:50 [facility] Resident/Alexy w: ANA VICK MD 07/08/2020 9:50 [facility] Performing Lab [facility] 9:50 [facility] Scanned Images 07/08/2020 9:50 [facility] Tissue ENTIRE ESOPHAGUS / Unknown 07/04/2020 10:20 EST 07/06/2020 16:46 EST Tissue specimen (specimen) STOMACH STRUCTURE / Unknown 07/04/2020 10:20 EST 07/06/2020 16:46 EST Tissue specimen (specimen) ESOPHAGEAL STRUCTURE / Unknown 07/04/2020 10:20 EST 07/06/2020 16:46 EST Tissue specimen (specimen) ESOPHAGEAL STRUCTURE / Unknown 07/04/2020 10:20 EST 07/06/2020 16:46 EST Krystin Coe DO PATHOLOGY ORDERABLES Performing Organization Address City/State/[facility] Co de Phone Number [facility] [address] [place] [address] documented in this encounter Visit Diagnoses Diagnosis Encounter for other general examination documented in this encounter Care Teams Ball Racker Relationship Specialty Start Date End Date Yung Horn MD [facility] [place] [address] PCP - General 01/26/18 documented as of this encounter
--- OUTSIDE RECORDS SUMMARY | 2024-01-19 15:15 | XMS_ITS | Encounter Summary ---
Author Organization [facility] Address [address] [place] [address] Care Team Providers Care Materials Technician Name Role Phone Yung Honr MD Primary Care Provider [phone] Reason for Visit * (Routine/Next Available) - Receiving Office to Obtain Authorization Specialty Diagnoses / Procedures Referred By Marisela ramesh Referred To Contact Procedures CT OUTSIDE IMAGES BODY Imaging, External Referral ID Status Reason Start Date Expiration Date Visits Requested Visits Authorized [id number] Receiving Office to Obtain Authorization 2 1 1 Encounter Details Date Type Department Care Team (Latest Contact Info) Description 04/20/2022 Hospital Encounter [facility] Secondary Reads [place] Discharge Disposition: [...] Name Priority Date/Time Associated Diagnosis Comments CT OUTSIDE IMAGES BODY Routine 04/20/2022 6:39 EDT documented in this encounter Results * CT OUTSIDE IMAGES BODY (04/20/2022 6:39 EDT) Narrative 04/21/2022 6:39 EDT This is a non-reportable exam. External Imaging IMG OTHER IMAGING OR DERABLES documented in this encounter Visit Diagnoses Not on filedocumented in this encounter Care Teams Materials Technician Relationship Specialty Start Date End Date Yung Horn MD [address] [place] [address] PCP - General 01/26/18 documented as of this encounter
--- OUTSIDE RECORDS SUMMARY | 2024-01-19 15:15 | XMS_ITS | Encounter Summary ---
Author Organization [facility] Address [address] [place] [address] Care Team Providers Care Carbon Coater Machine Operator Name Role Phone Yung Horn MD Primary Care Provider [phone] Encounter Details Date Type Department Care Team (Late st Contact Info) Description 01/29/2018 Results Only Imaging [facility] Total Joint Program - [address] [address] Roosevelt Miller MD MSc [facility] [address] [place] [phone] Social History Tobacco Use Types Packs/Day Years [...] Diagnosis Comments KNEE 4 OR MORE VIEWS 01/29/2018 13:36 EDT documented in this encounter [...] on filedocumented in this encounter Care Teams Carbon Coater Machine Operator Relationship Specialty Start Date End Date Yung Horn MD [address] [place] [address] PCP - General 01/26/18 documented as of this encounter
--- OUTSIDE RECORDS SUMMARY | 2024-01-19 15:15 | XMS_ITS | Encounter Summary ---
Author Organization [facility] Address [address] [place] [address] Care Team Providers Care Stud Sheep Farmer Name Role Phone Yung Horn MD Primary Care Provider [phone] Encounter Details Date Type Department Care Team (Late st Contact Info) Description 02/08/2018 Abstract [facility] Orthopedic Trauma - [address] [address] Steff Arellano LPN [address] [place] [address] Social History Tobacco Use Types Packs/Day Years Used Date Smoking Tobacco: Never Assessed Sex and Gender Information Value Date Recorded Sex Assigned at Not on file Gender Identity Not on file Sexual Orientation Not on file documented as of this encounter Plan of Treatment Not on file documented as of this encounter Visit Diagnoses Not on filedocumented in this encounter Care Teams Stud Sheep Farmer Relationship Specialty Start Date End Date Yung Horn MD [address] [place] [address] PCP - General 01/26/18 documented as of this encounter
--- OUTSIDE RECORDS SUMMARY | 2024-01-19 15:15 | XMS_ITS | Encounter Summary ---
Author Organization [facility] Address [address] [place] [address] Care Team Providers Care Document Controller Name Role Phone Unknown, Provider Primary Care Provider [phone] Reason for Visit * Reason Onset Date Comments Appointment Related 01/25/2018 Encounter Details Date Type Department Care Team (Late st Contact Info) Description 01/25/2018 Telephone [facility] Total Joint Program - [address] [address] Roosevelt Miller MD MSc [facility] [address] [place] [address] Appointment Related Social History Tobacco Use Types Packs/Day Years Used Date Smoking Tobacco: Never Assessed Sex and Gender Information Value Date Recorded Sex Assigned at Not on file Gender Identity Not on file Sexual Orientation Not on file documented as of this encounter Miscellaneous Notes * Telephone Encounter - Renetta East - 01/25/2018 1144 EDT LM to have Yung call, so we could ask where he had surgery on his Rt knee and if he has any of those records, or the information where it was done so we can get them. documented in this encounter Plan of Treatment Not on file documented as of this encounter Visit Diagnoses Not on filedocumented in this encounter Care Teams Document Controller Relationship Specialty Start Date End Date Unknown, ProviderMD PCP - General 11/16/17 01/25/18 documented as of this encounter
--- OUTSIDE RECORDS SUMMARY | 2024-01-19 15:15 | XMS_ITS | Encounter Summary ---
Author Organization [facility] [place] [address] Care Team Providers Care Cold Working Inspector Name Role Phone Boston Hernandez MD Primary Care Provider [phone] Reason for Visit * Auth/Cert Specialty Diagnoses / Procedures Referred By Contac t Referred To Contact Diagnoses ED/PEYRONIE'S Procedures PRO INSERT, INFLATABLE PENILE PROSTHESIS PENILE PROSTHESIS, MULTI-COMPONENT Referral ID Status Reason Start Date Expiration Date Visits Re quested Visits Authorized [id number] 1 1 Encounter Details Date Type Department Care Team (Latest Contact Info) Description 06/09/2015 12:11 PM EST - 06/10/2015 1:52 PM EST Hospital Encounter Pediatric Adolescent Unit [facility] [place] [address] Ebenezer Patino III, MD [facility] [place] [address] Peyronie's disease Discharge Disposition: Home Social History [...] Sign Reading Time Taken Comments Blood Pressure 123/69 06/10/2015 8:00 AM EST Pulse 74 06/10/2015 8:00 AM EST Temperature 37 ??C (98.6 ??F) 06/10/2015 8:00 AM EST Respiratory Rate 16 06/10/2015 8:00 AM EST Oxygen Saturation 98% 06/10/2015 8:00 AM EST Inhaled Oxygen Concentration - - Weight 108.9 kg (240 lb) 06/09/2015 12:35 PM EST Height 180.3 cm (5' 11) 06/09/2015 12:35 PM EST Body Mass Index 33.47 06/09/2015 12:35 PM EST documented in this encounter Discharge Summaries * Nilam Pedroza PA - 06/10/2015 11:54 AM EST Discharge Summary Patient Name: Yung Betancur Patient Age: 59 y.o. Language: Malawian Race: White Ethnicity: Not nor Admit date: [...] degree dorsal curvature with some left-sided deflection. MrMaynor and Mrs. Betancur have reviewed the IPP DVD. Physical Examination: Examination of the penis reveals a plaque in the midshaft of the penis. Assessment: Ihjks-shybq-lmen-old gentleman with ED that is likely secondary [...] Hospital Course: Patient was admitted electively to [facility] via the same day surgery program and [...] Weight: Wt Readings from Last 1 Encounters: // 108.863 kg (240 lb) Height: Ht Readings from Last 1 Encounters: 06/09/15 180.3 cm (5' 11) BMI: Body mass [...] If you need to brace yourself to seed cone picker an object - it is too [...] more degrees The number for questions is [phone] before 5 PM weekdays and [phone] after 5 PM and weekends. FOLLOW-UP Follow-up appointment will be scheduled with Dr. Pelaez in 2 weeks for a wound check. Appointment will be mailed to you. Please call [phone] (clinic number for appointments) to confirm date and time of your appointment if you do not receive your apointment in 2-3 days. Future Appointments Date Time Provider Department Center 06/24/2015 1:40 PM Ebenezer Patino III, MD [facility] [place] [facility] General Instructions None Future Appointments and Orders Future Appointments Provider Department Dept Phone 06/24/2015 1:40 PM Ebenezer Patino III, MD Urology [phone] Future Orders Complete By Expires Referral to Home Health - at DISCHARGE [[id number] CPT(R)] As directed Process Instructions: Scheduling Instructions: Comments: DOCUMENTATION FOR VNA SERVICES (INCLUDING THOSE PATIENTS WITH MEDICARE COVERAGE REQUIRING HOME VNA SERVICES AND/OR HOSPICE SERVICES) PATIENT'S LOCATION: Yung Ro [facility] [phone] (home) Cell: No relevant phone numbers on file. Director Of Veterans Affairs's Name: Tahmina- Spouse In discussion with the attending physician, it is certified that this patient is under their care and that they, or a Nurse Practitioner,Clinical Nurse specialist or Physician Recycling Operator who is working directly with them, had [...] re health issues HOME HEALTH CARE AGENCY: [facility] PHONE: [phone] FAX: [phone] Start of care: Day after Discharge Please note that any additional orders needs or changes will need to be obtained from this patient's PCP: BOSTON HERNANDEZ MD [facility] [address] [facility] [id number] All VNA agencies which cover the area of patient's residence have been reviewed, either verbally symone writing, and patient/family have chosen the home health care agency noted Questions: Agency name and contact information: [facility] Patient location post discharge: Home What services are requested: Registered Nurse Start date: Responsible MD post discharge contact info: PCP Follow-Up: Future Appointments Date Time Provider Department Center 06/24/2015 1:40 PM Ebenezer Patino III, MD [facility] Primary Care Provider: BOSTON HERNANDEZ MD [phone] Follow-up Recommendations for Providers: Please see discharge [...] was managed by the Urology Team at [facility]. If you have any questions or concerns, please feel free to contact us. Provider Contact Information: Urology Clinic: [facility] (after business hours): documented in this encounter [...] If you need to brace yourself to seed cone picker an object - it is too [...] more degrees The number for questions is [phone] before 5 PM weekdays and [phone] after 5 PM and weekends. FOLLOW-UP Follow-up appointment will be scheduled with Dr. Pelaez in 2 weeks for a wound check. Appointment will be mailed to you. Please call [phone] (clinic number for appointments) to confirm date and time of your appointment if you do not receive your apointment in 2-3 days. Future Appointments Date Time Provider Department Center 06/24/2015 1:40 PM Ebenezer Patino III, MD [facility]IN documented in this encounter Medications at [...] EST Office of Care Management (OCM) / Observation Assistant(CM)/ Initial Assessment Discussed patient with Provider Team [...] ADVANCE DIRECTIVES: Not on file HEALTH /PRESCRIPTION COVERAGE:[facility] CURRENT HOME/COMMUNITY SERVICES/EQUIPMENT: None but will place VNA referral DME: Home Health Agency: [facility] PHONE: [phone] FAX: [phone] Other: [employer] REFERRAL: not needed at this time PRIMARY CARE PHYSICIAN: BOSTON HERNANDEZ MD [facility] [address] [facility] [address] POTENTIAL DISCHARGE NEEDS: VNA referral and prescriptions. [...] * Plan of Care - Shamir Xiao P - 06/09/2015 9:22 PM EST Problem: General [...] identified Problem: Coping, Compromised Family (Adult, NICU, [place], Obstetrics, Pediatric) Goal: Identify Signs and Symptoms and Related Risk Factors Signs and symptoms and related risk factors are identified upon initiation of Human Response Clinical Practice Guideline (CPG) Outcome: Ongoing (Interventions Implemented as Appropriate) Goal: Effective Family Coping Patient will demonstrate the desired outcomes. Outcome: Ongoing (Interventions Implemented as Appropriate) 06/09/152116 Coping, Compromised Family (Adult, NICU, , Obstetrics, Pediatric) Effective Family Coping making progress toward outcome * Op Note - Derick Bravo - 06/09/2015 6:30 PM EST [facility] Operative Note Patient Name: Yung Betancur : [id number] MR#: [id number] Case Date: 06/09/2015 Surgeon: Surgeon(s) and Role: [...] had received preoperative antibiotics (Vancomycin/gentamicin). A 16- Guatemalan Richardson catheter was placed and the Lonestar [...] Operative Note Patient Name: Yung Betancur : [id number] MR#: [id number] Case Date: 06/09/2015 Surgeon: Surgeon(s) and Role: [...] EDT Telephone Pre Admission Testing at [address] [address] 02/07/2024 11:20 AM EDT [place] [address] Manoj Vinson MD [facility] [place] [address] 02/08/2024 8:30 AM EDT Hospital Encounter PACU at [address] [address] Manoj Vinson MD [facility] [place] [address] 02/08/2024 8:30 AM EDT - 02/08/2024 11:00 AM EDT Surgery Main OR at [address] [address] Manoj Vinson MD [facility] [place] [address] ADJ.TISSUE TRANSFER, REARRANGEMENT, 10.1 TO 30 SQ.CM, GENITALIA (WRVU 10.83) Scheduled Procedures Name Priority Associated Diagnoses Date/Ti me ADJ.TISSUE TRANSFER, REARRANGEMENT, 10.1 TO 30 SQ.CM, GENITALIA (WRVU 10.83) Acquired buried penis 02/08/2024 8:30 AM EDT documented as of this encounter Procedures Procedure Name Priority Date/Time Associated Diagnosis Comments IMPLANTABLE DEVICES SCAN 06/11/2015 12:00 AM EST SECURITY SHIFT SUPERVISOR SCAN 06/11/2015 12:00 AM EST POCT GLUCOSE Routine 06/10/2015 11:25 AM EST POCT GLUCOSE Routine 06/09/2015 6:50 PM EST PENILE PROSTHESIS, MULTI-COMPONENT (WRVU 14.52) 06/09/2015 3:48 PM EST ED/PEYRONIE'S BASIC METABOLIC PANEL (NON-FASTING) STAT 06/09/2015 1:50 PM EST POCT GLUCOSE Routine 06/09/2015 12:38 PM EST documented in this encounter Results * SCAN DOC: IMPLANTABLE DEVICES (06/11/2015 12:00 AM EST) Scanning Provider MEDIA MGR SCAN EXT O RDR/RSLT * SCAN DOC: SECURITY SHIFT SUPERVISOR (06/11/2015 12:00 AM EST) Anatomical Region Laterality Modality Other Scanning Provider MEDIA MGR SCAN EXT O RDR/RSLT * (ABNORMAL) POCT Glucose (06/10/2015 11:25 AM EST) POC Glucose 280(H) 65 - 199 mg/dL [place] [facility] Comment: Supplemental ranges: <140 mg/dL before meals <180 mg/dL all other times of the day Blood specimen (specimen) 06/10/2015 11:25 AM EST 06/10/2015 11:25 AM EST Ebenezer Patino III, MD POINT OF CARE RF nano T ORDERABLES Performing Organization Address [facility] de Phone Number [place] [facility] * POCT Glucose (06/09/2015 6:50 PM EST) POC Glucose 164 65 - 199 mg/dL [place] [facility] Comment: Supplemental ranges: <140 mg/dL before meals <180 mg/dL all other times of the day Blood specimen (specimen) 06/09/2015 6:50 PM EST 06/09/2015 6:50 PM EST Ebenezer Patino III, MD POINT OF CARE RF nano T ORDERABLES Performing Organization Address [facility] de Phone Number [place] [employer] * Basic Metabolic Panel (non-fasting) (06/09/2015 1:50 PM EST) Glucose Lvl 140 65 - 199 mg/dL [place] [facility] Comment:Diabetes: >=200 mg/d L plus symptoms BUN 19 10 - 20 mg/dL [facility] Creatinine 1.07 0.80 - 1.50 mg/dL [facility] Comment: Please note that the pediatric reference intervals supplied above were not validated at [facility]. Results from pediatric patients should be interpreted [...] the following links into your internet browser. [email or web address] Blood specimen (specimen) 06/09/2015 1:50 PM EST [...] POINT OF CARE AGUSTÍN T ORDERABLES LUIS ANTONIO BENITES documented in this encounter Visit Diagnoses Diagnosis Peyronie's disease Acquired buried penis Other specified disorder of penis documented in this encounter Administered Medications Inactive Administered Medications - up to 3 most recent administrations Medication Order MAR Action Action Date Dose Rate Site docusate sodium (COLACE) capsule 100 mg [...] AM EST 100 mL/hr 100 mL/hr New 06/09/2015 6:52 PM EST 100 mL/hr 100 [...] Routine 2225 (Given - Provider: Shamir Xiao) gentamicin (GARAMYCIN) [...] Routine 2224 (Given - Provider: Shamir Xiao) 0915 (Given - Provider: Laura Vallecillo RN) sulfamethoxazole-trimethop rim (BACTRIM DS) 800-160 mg per tablet 1 tablet 1 tablet, Oral, EVERY 12 HOURS SCHEDULED (2 times per day), First dose on Mon06/09/15 at 2100, Until Discontinued, Routine, Indication for (Active or Suspected): Prophylaxis 2224 (Given - Provider: Shamir Xiao) 0904 [...] less than 10 per minute., PACU Recovery 185 (Given - Provider: Mali Guillory, MATEO)1908 (Given - Provider: Mali Guillory, RN)1916 (Given - Provider: Mali Guillory, RN)1922 (Given - Provider: Mali Guillory, RN) oxyCODONE (ROXICODONE) immediate release tablet 10 mg(Linked Group 3) 10 mg, Oral, EVERY 4 HOURS PRN, Starting on Mon06/09/15 at 1846, Until Mon06/10/15 at 1552, Pain, severe pain (7-10), May give an additional 5 mg in 30 minutes once if pain not relieved., Routine 2131 (Given - Provider: Shamir Xiao) 0816 (Given - Provider: Laura Vallecillo, MATEO)1259 (Given - Provider: Laura Vallecillo RN) Linked [...] Routine documented in this encounter Care Teams Cold Working Inspector Relationship Specialty Start Date End Date Boston Hernandez MD [facility] [address] [place] [address] PCP - General General Internal Medicine 05/27/1511/07 documented as of this encounter
--- OUTSIDE RECORDS SUMMARY | 2024-01-19 15:15 | XMS_ITS | Encounter Summary ---
Author Organization [facility] Address [address] [place] [address] Care Team Providers Care Navy Diver Name Role Phone Yung Horn MD Primary Care Provider [phone] Reason for Visit * (Routine/Next Available) - Receiving Office to Obtain Authorization Specialty Diagnoses / Procedures Referred By Marisela ramesh Referred To Contact Procedures XR OUTSIDE IMAGES MS[facility] Imaging, External Referral ID Status Reason Start Date Expiration Date Visits Requested Visits Authorized [id number] Receiving Office to Obtain Authorization 2 1 1 Encounter Details Date Type Department Care Team (Latest Contact Info) Description 04/20/2022 0:05 EDT - 04/20/2022 0:09 EDT Hospital Encounter [facility] Secondary Reads [place] Discharge Disposition: Home [...] on filedocumented in this encounter Care Teams Navy Diver Relationship Specialty Start Date End Date Yung Horn MD [address] [place] [address] PCP - General 01/26/18 documented as of this encounter
--- OUTSIDE RECORDS SUMMARY | 2024-01-19 15:15 | XMS_ITS | Encounter Summary ---
Author Organization [facility] Address [address] [place] [address] Care Team Providers Care Java Technical Architect Name Role Phone Yung Horn MD Primary Care Provider [phone] Reason for Visit * Reason Comments Knee Pain bilat knee pain dos 2007 Encounter Details Date Type Department Care Team (Latest Contact Info) Description 01/29/2018 13:45 EDT Office Visit [facility] Total Joint Program - [address] [address] Roosevelt Miller MD MSc [facility] [address] [place] [phone] Bilateral primary osteoarthritis of knee (Primary Dx) Discharge Disposition: Auto Discharge Social History Tobacco Use Types Packs/Day Years [...] Body Mass Index 33.47 01/29/2018 1402 EDT documented in this encounter Discharge Diagnoses Diagnosis M17.0 Bilateral primary osteoarthritis of knee-M17.0[ICD-10-CM] documented in this encounter Discharge Disposition Disposition Code Departure Means Destination Auto Discharge documented in this encounter Progress Notes * Roosevelt Miller MD - 01/29/2018 1345 EDT Yung Honr MD Dear Dr Horn: It was a pleasure to assess Yung in our orthopedic clinic today. 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 He lives with his . He comes in complaining of bilateral knee pain with the right being worse than the left. He is here for a second opinion. He is due to have bilateral total knee replacements in [place] next month by Dr De León. He was recently diagnosed and treated for Lyme disease. He describes bilateral anteromedial pain, which fluctuates from6 to 8 out of 10. He has had injections in the past, which did not help. He takes NSAIDs. The pain is aggravated by stairs or with prolonged sitting or standing. The knees swell and give, and he has to use a cane at times. He has done exercises but no formal physical therapy. He lost 100 pounds after gastric bypass surgery a few years ago. This pain is most improved with a hot tub and marijuana use. His past medical history includes type 2 diabetes with hemoglobin A1c of 8. He also has early onsetAlzheimer's. He also has a history of anxiety and depression and rotator cuff pathology bilaterally. A 10-point review of systems was performed and was negative except for the pertinent positives mentioned above. He has a family history of diabetes and Alzheimer's. His medications are listed in the chart and were reviewed. He takes a baby aspirin daily. He has an allergy to adhesive tape. He does not smoke cigarettes. He stopped drinking 10 months ago. On exam, Yung was in no apparent distress, and his affect was normal. He demonstrated nonlabored breathing. He was alert and oriented x3, and appeared his stated age. He had clear sclerae and normal skin. His was overweight with a BMI of 33. He ambulated with a limp. Both knees were in neutral alignment. Grossly normal hip exams. Bilateral knee range of motion was 0 to 125. He had pain with deep flexion bilaterally. Medial joint line tenderness bilaterally. Minimal swelling bilaterally. The knees were stable. Post tib and dorsalis pedis were 2+ bilaterally. Neurologic exam demonstrated normalsensation and motor function distally. Today, I reviewed Yung's x-rays, which demonstrate moderate osteoarthritic changes of both knees, involving predominantly the medial compartment. Today, I had a long discussion with Yung with respect to his knees. I explained that he does sufferfrom advanced arthritis. I explained that there is no urgency in pursuing knee replacement surgery.He should first fail conservative treatment. I also recommend a hemoglobin A1c less than 7.5. He does have advanced arthritis and ultimately will probably choose to proceed with knee replacement surgery. He also wanted a script for medical marijuana, which I was unable to provide. All of his questions were answered, and he was pleased with our interaction today. I encouraged him to continue doinghis knee exercises and work on weight loss. He will follow up with me in the future on a p.r.n. basis. Sincerely, documented in this encounter Plan of Treatment Not on file documented as of this encounter Visit Diagnoses Diagnosis Bilateral primary osteoarthritis of knee- Primary documented in this encounter Historical Medications * This list may reflect changes made after this encounter. Medication Sig Dispensed Refills Start Date End Date gabapentin (NEURONTIN) 600 mg tablet Take 600 mg by mouth as needed. aspirin chewable 81 mg tablet Take 81 mg by mouth daily. venlafaxine (EFFEXOR-XR) 150 mg XR capsule Take 150 mg by mouth daily. pantoprazole (PROTONIX) 40 mg tablet Take 40 mg by mouth daily. lisinopril (PRINIVIL, ZESTRIL) 2.5 mg tablet Take 2.5 mg by mouth daily. metFORMIN (GLUCOPHAGE) 500 mg tablet Take 1,000 mg by mouth 2 times daily. added in this encounter Care Teams Java Technical Architect Relationship Specialty Start Date End Date Yung Horn MD [facility] [place] [place] [address] PCP - General 01/26/18 documented as of this encounter
--- OUTSIDE RECORDS SUMMARY | 2024-01-19 15:15 | XMS_ITS | Encounter Summary ---
Author Organization [facility] Address [address] [place] [address] Care Team Providers Care Chisel Worker Name Role Phone Yung Horn MD Primary Care Provider [phone] Encounter Details Date Type Department Care Team (Late st Contact Info) Description 12/21/2022 Lab Requisition [facility] Pathology & Laboratory Medicine - [address] [address] Outr Resulting Lab, Provider Social History Tobacco [...] Procedure Name Priority Date/Time Associated Diagnosis Comments PSA TOTAL, DIAGNOSTIC Routine 12/20/2022 14:20 EDT documented in this encounter Results * PSA TOTAL, DIAGNOSTIC (12/20/2022 14:20 EDT) PSA 0.5 <=4.5 ng/mL 12/21/2022 18:21 EDT [facility] Blood VENOUS BLOOD / Unknown 12/20/2022 14:20 EDT 12/21/2022 16:48 EDT Narrative [facility] - 12/21/2022 18:21 EDT NOTE: Serum PSA concentration should not be interpreted as absolute evidence for the presence or absence of malignant disease. Assayed on Siemens ADVIA Centaur XPT using chemiluminescent technology.??Values obtained by using different assay methods cannot be used interchangeably. Provider Outr Resulting Lab CHEMISTRY & BLOOD GAS ORDERABLES [facility] [address] [place] [address] documented in this encounter Visit Diagnoses Not on filedocumented in this encounter Care Teams Chisel Worker Relationship Specialty Start Date End Date Yung Horn MD [address] [address] PCP - General 01/26/18 documented as of this encounter
--- OUTSIDE RECORDS SUMMARY | 2024-01-19 15:15 | XMS_ITS | Referral Summary ---
Author Organization [facility] Address [address] [place] [address] Care Team Providers Care Sign Language Interpreter Name Role Phone Yung Horn MD Primary Care Provider [phone] Allergies Active Allergy Reactions Criticality Noted Date [...] Date Bilateral primary osteoarthritis of knee 018 Social History Tobacco Use Types Packs/Day Years [...] 33.47 01/29/2018 1402 EDT Plan of Treatment Not on file Care Teams Sign Language Interpreter Relationship Specialty Start Date End Date Yung Horn MD [address] [place] [address] PCP - General 01/26/18
--- OUTSIDE RECORDS SUMMARY | 2024-01-19 15:15 | XMS_ITS | Encounter Summary ---
Author Organization [facility] Address [address] [place] [address] Care Team Providers Care Creasing And Cutting Press Feeder Name Role Phone Yung Horn MD Primary Care Provider [phone] Encounter Details Date Type Department Care Team (Late st Contact Info) Description 07/04/2020 Lab Requisition [facility] Pathology & Laboratory Medicine - [address] [address] Outr Resulting Lab, Provider Social History Tobacco [...] Procedure Name Priority Date/Time Associated Diagnosis Comments ACUTE HEPATITIS PROFILE Routine 07/03/2020 5:55 EST documented in this encounter Results * ACUTE HEPATITIS PROFILE (07/03/2020 5:55 EST) Hep B Surface Ag Negative Negative 07/06/2020 9:58 EST [facility] Hep C Antibody Negative Negative 07/06/2020 9:58 EST [facility] Hepatitis A Antibody, IgM Negative Negative 07/06/2020 9:58 EST [facility] Comment:The results of this assay can be falsely lowered due to the consumption of Biotin. Hepatitis B Core Ab, Total Negative Negative 07/06/2020 9:58 EST [facility] Blood VENOUS BLOOD / Unknown 07/03/2020 5:55 EST 07/04/2020 17:27 EST Provider Outr Resulting Lab CHEMISTRY & BLOOD GAS ORDERABLES [facility] [address] [place] [address] documented in this encounter Visit Diagnoses Not on filedocumented in this encounter Care Teams Creasing And Cutting Press Feeder Relationship Specialty Start Date End Date Yung Horn MD [address] [place] [address] PCP - General 01/26/18 documented as of this encounter
--- OUTSIDE RECORDS SUMMARY | 2024-01-19 15:15 | XMS_ITS | Encounter Summary ---
Author Organization [facility] [place] [address] Care Team Providers Care Rn Plastic Surgery Name Role Phone Boston Hernandez MD Primary Care Provider [phone] Reason for Visit * Reason Comments Follow Up Surgery Encounter Details Date Type Department Care Team (Late st Contact Info) Description 06/24/2015 1:40 PM EST Office Visit Urology at [facility] [place] [address] Ebenezer Patino III, MD [facility] [place] [address] Erectile dysfunction, unspecified erectile dysfunction type Social [...] Reading Time Taken Comments Blood Pressure 144/76 06/24/2015 1:10 PM EST Pulse 93 06/24/2015 1:10 PM EST Temperature 36.9 ??C (98.4 ??F) 06/24/2015 1:10 PM ES T Respiratory Rate - - Oxygen Saturation 96% 06/24/2015 1:10 PM EST Inhaled Oxygen Concentration - - Weight - - Height - - Body Mass Index - - documented in this encounter Progress Notes * Ebenezer Patino III, MD - 06/24/2015 1:25 PM EST Mr. Betancur is a 59-year-old gentleman who returns for evaluation two weeks following placement of a three piece IPP. His postoperative course has been unremarkable. He has had no fever or chills or other signs of urinary tract infection. He did have a small amount of drainage from the upper portion of his incision. He believes he is completing his course of antibiotics today. Physical Examination: The penoscrotal incision is healing well. There is no evidence of any inflammatory process and there is no expressible material. The pump is identified in a dependent portion of the right hemiscrotum. The cylinders appear to be in good position and there is no significant penile swelling or tenderness. Assessment: A 59-year-old gentleman status post placement of an IPP with a good interval result. I will plan on seeing this gentleman back in four weeks at which time I anticipate activating the device. All questions have been answered. documented in this encounter Plan of Treatment Upcoming Encounters Date Type Department Care Team (Latest Contact Info) Description 02/01/2024 11:15 AM EDT Telephone Pre Admission Testing at [address] [address] 02/07/2024 11:20 AM EDT [place] [address] Manoj Vinson MD [facility] [place] [address] 02/08/2024 8:30 AM EDT Hospital Encounter PACU at [address] [address] Manoj Vinson MD [facility] [place] [address] 02/08/2024 8:30 AM EDT - 02/08/2024 11:00 AM EDT Surgery Main OR at [address] [address] Manoj Vinson MD [facility] [place] [address] ADJ.TISSUE TRANSFER, REARRANGEMENT, 10.1 TO 30 SQ.CM, GENITALIA (WRVU 10.83) Scheduled Procedures Name Priority Associated Diagnoses Date/Ti me ADJ.TISSUE TRANSFER, REARRANGEMENT, 10.1 TO 30 SQ.CM, GENITALIA (WRVU 10.83) Acquired buried penis 02/08/2024 8:30 AM EDT documented as of this encounter Visit Diagnoses Diagnosis Erectile dysfunction, unspecified erectile dysfunction type Acquired buried penis Other specified disorder of penis documented in this encounter Care Teams Rn Plastic Surgery Relationship Specialty Start Date End Date Boston Hernandez MD [facility] [address] [place] [address] PCP - General General Internal Medicine 05/27/1511/07 documented as of this encounter
--- OUTSIDE RECORDS SUMMARY | 2024-01-19 15:16 | XMS_ITS ---
Author Organization Unknown Address [address] [place] [phone] Phone Care Team Providers Care Funnel Coater Name Role Phone DIANA BRIGHT Registered Nurse Unavailable RAYRAY Mckoy Attending Unavailable JAROD Richardosn ER Unavailable UNLISTED PROVIDER - REQUESTED Xhandoff [...] D Wednesday, February 23, 2022 8:00:13 AM [id number] Electronically Reviewed and Signed By: ANGÉLICA PIMENTEL MD 02/25/22 21:55 Copy for: 185 HEALTH INFORMATION MGMT DISCHARGED XR FOREARM 2V RT* - Complete d: 03/01/2022 14:57 LOINC: RIGHT FOREARM - 2 VIEWS:No e vidence of fracture. No osseous lesions. No radiopaque foreign body. Vascular calcification noted. Dictated by: TODD PIMENTEL MD Transcribed by: JENNIFER 02/25/2210:32 D Wednesday, February 23, 2022 8:01:58 AM [id number] Electronically Reviewed and Signed By: ANGÉLICA PIMENTEL MD 02/25/22 21:55 Copy for: 185 HEALTH INFORMATION MGMT DISCHARGED Social History Type Status Start Date End Date Code Code Syst em Sex Male Vital Signs Vital Sign Value Unit Belmont Value Belmont Unit Date/Time Recent/Initial? Code Code System Body Mass Index 35.87 kg/m2 02/22/2022 16:44 Initial 56818 -5 LOINC Systolic Blood Pressure 143 mm[Hg] 02/22/2022 16:44 Initial 8480- 6 LOINC Diastolic Blood Pressure 82 mm[Hg] 02/22/2022 16:44 Initial 8462- 4 LOINC Body Surface Area 2.37 m2 02/22/2022 16:44 Initial 3140- 1 LOINC Height 177.800 0 cm 70.00 in 02/22/2022 16:44 Initial 8302- 2 LOINC O2 Saturation 96 % 2021 16:44 Initial 17103 -5 LOINC Pulse 68.0 /min 02/22/2022 16:44 Initial 8867- 4 LOINC Respiration 16 /min 02/23/20 16:44 Initial 9279- 1 LOINC Temperature 36.4 Analia 97.5 F 02/23/20 16:44 Initial 8310- 5 LOINC Weight 113.40 kg 250.00 lbs 02/22/2022 16:44 Initial 79249 -7 LOINC Assessment You had the following problems:TYPE 2 DIABETESANXIETY Hospital Discharge Instructions Should you have any questions prior to discharge, please contact a member of your healthcare team. If you have left the hospital and have any questions, please contact your primary care physician. Reason For Referral No Data Found Procedures Procedure Name Date Status Code Code Syste m Replacement of bilateral knee joints completed 498265683 SNOMEDCT Repair of rotator cuff completed 78810823 SN OMEDCT Problems Problem Start Date Resolved Date Status Code Code System TYPE 2 DIABETES active 58602006 SNOM ED-CT ANXIETY active 68478859 SNOMED-CT Allergies and Adverse Reactions Allergy Substance Reaction Severity Start Date Concern Status Code Code System ADHESIVE Rash (SNOMED-CT: 886023309) Active No Known Drug Allergies Active 941728838 SNOMED-CT Plan of Treatment No Data Found Encounters Encounter Diagnosis Start Date Code Code Sys tem Pain in right elbow 02/22/2022 SNOMED-C T Personal Care Team Section Performer Name Performer Role Active Date Inactive Da te
[2024-01-19 15:20] LABS: Abs Immature Grans 0.01 10^3/uL (0.0-0.06); Absolute Basophil Count 0.02 10^3/uL (0.0-0.2); Absolute Eosinophil Count 0.21 10^3/uL (0.0-0.7); Absolute Monocyte Count 0.41 10^3/uL (0.1-0.8); Absolute Neutrophil Count 3.66 10^3/uL (1.2-6.7); Basophils % 0.4 %; Eosinophils % 3.7 %; HCT 40.3 % (40.0-50.0); HGB 13.6 g/dL (13.5-17.5); Immature Grans % 0.2 %; Lymphocytes % 24.5 %; MCH 29.7 pg (27.0-33.0); MCHC 33.7 % (32.0-36.0); MCV 88 fL (80-95); Monocytes % 7.2 %; Platelet Count 174 10^3/uL (130-400); RBC 4.58 10^6/uL (4.36-5.78); RDW 13.3 % (11.8-14.1); RDW-SD 43.1 fL; WBC 5.71 10^3/uL (4.4-10.8)
[2024-01-19] MEDS: Normal Saline Flush 10 ML SYR IVP (15:24)
[2024-01-19 15:33] LABS: Prothrombin Time 9.9 sec (9.1-11.1)
--- NOTE | 2024-01-19 15:33 | ED.GENADUL_ITS ---
Discharge Plan Disposition Patient Disposition: Home Condition: Stable Discharge Details Clinical Impression: Chest pain, Abdominal pain, Diarrhea Primary Care Provider: Yung Horn ED Provider: Roosevelt Sullivan Home Meds and New Rx's Prescriptions: New prednisone 20 mg tablet 60 mg PO DAILY 5 Days Qty: 15 0RF metronidazole 500 mg tablet 500 mg PO Q8H Qty: 21 0RF ciprofloxacin HCl 500 mg tablet 500 mg PO BID Qty: 14 0RF Continued tamsulosin [Flomax] 0.4 mg capsule 0.8 mg PO HS Qty: 180 3RF Patient Comments: takes in pm Trulicity 1.5 mg/0.5 mL pen injector 1.5 mg subcut QWEEK Patient Comments: every day acetaminophen 500 mg tablet 1,000 mg PO Q6H PRN metformin [Glucophage] 1,000 MG tablet 1,000 mg PO BID diclofenac sodium [Voltaren Arthritis Pain] 1 % gel 2 g topical QID Qty: 50 0RF Rx Instructions: apply to single elbow, wrist or hand; for hand includes palm/fingers/back of hand glipizide 10 mg tablet extended release 24hr 10 mg PO BID Patient Comments: TK 2 TS PO D FOR BS gabapentin 800 mg tablet 800 mg PO TID Patient Comments: TAKE 1 TABLET BY MOUTH THREE TIMES DAILY FOR PAIN pantoprazole 40 mg tablet,delayed release (DR/EC) 40 mg PO BID Patient Comments: TK 1 T PO BID venlafaxine 225 mg tablet extended release 24hr 225 mg PO DAILY Patient Comments: 150 in am 75 at night Discharge Instructions Additional Instructions: Your blood work did not show any concerning findings your CAT scan showed mild inflammation of your colon Take the antibiotics and prednisone as prescribed Follow-up with your primary care provider within 1 to 2 weeks especially if symptoms continue If you feel more ill or have severe worsening pain or new symptoms such as persistent vomiting return to the emergency department for reevaluation Discharge Data Discharge Date/Time-TO BE ENTERED AT DEPARTURE: 01/19/24 18:17 HPI General Mode of arrival: ambulatory . Date/Time Provider Initiated Documentation: 01/19/24 14:49 . Limitations to Documentation: no limitations . Information obtained by: patient . History of Present Illness 68 year old M presents to the emergency department with the chief complaint of Chest pain, described as moderate, Quality is described as aching and other (Heaviness), and is localized to the chest. Patient reports no radiation. Patient started experiencing this month(s) (2) and it has been constant. No relieving factors improve symptom(s), No exacerbating factors reported . Patient notes denies fever/chills and nausea/vomiting. Patient did receive the following treatments prior to arrival, none Related Data Home Medications ?Medication ?Instructions ?Recorded ?Confirmed metformin 1,000 mg tablet 1,000 mg PO BID 11/27/17 01/19/24 (Glucophage) gabapentin 800 mg tablet 800 mg PO TID 07/02/20 01/19/24 glipizide 10 mg tablet, extended 10 mg PO BID 07/02/20 01/19/24 release 24 hr pantoprazole 40 mg tablet,delayed 40 mg PO BID 07/02/20 01/19/24 release venlafaxine 225 mg tablet,extended 225 mg PO DAILY 07/02/20 01/19/24 release 24 hr diclofenac sodium 1 % topical gel 2 g topical QID #50 grams 11/13/20 01/19/24 (Voltaren Arthritis Pain) acetaminophen 500 mg tablet 1,000 mg PO Q6H PRN 10/26/21 01/19/24 dulaglutide 1.5 mg/0.5 mL 1.5 mg subcut QWEEK 10/26/21 01/19/24 subcutaneous pen injector (Trulicity) tamsulosin 0.4 mg capsule (Flomax) 0.8 mg (2 x 0.4 mg) PO HS #180 caps 09/27/23 01/19/24 ciprofloxacin HCl 500 mg tablet 500 mg PO BID #14 tabs 01/19/24 metronidazole 500 mg tablet 500 mg PO Q8H #21 tabs 01/19/24 prednisone 20 mg tablet 60 mg (3 x 20 mg) PO DAILY 5 days 01/19/24 #15 tabs Previous Rx's ?Medication ?Instructions ?Recorded diclofenac sodium 1 % topical gel 2 g topical QID #50 grams 11/13/20 (Voltaren Arthritis Pain) tamsulosin 0.4 mg capsule (Flomax) 0.8 mg (2 x 0.4 mg) PO HS #180 caps 09/27/23 ciprofloxacin HCl 500 mg tablet 500 mg PO BID #14 tabs 01/19/24 metronidazole 500 mg tablet 500 mg PO Q8H #21 tabs 07/12/24 prednisone 20 mg tablet 60 mg (3 x 20 mg) PO DAILY 5 days 01/19/24 #15 tabs Allergies Allergy/AdvReac Type Severity Reaction Status Date / Time adhesive Allergy Intermediate blisters Verified 01/09/24 11:05 atorvastatin Allergy Intermediate .chest Verified 01/09/24 11:05 pain/diaphroresis General Stated Complaint: Chest/Rib NASIMA: 2 Review of Systems All systems reviewed & are unremarkable except as noted in HPI and below Constitutional Constitutional: Denies chills, Denies fever(s) and Denies weakness Cardiovascular Cardiovascular: Reports chest pain and Reports dyspnea Respiratory Respiratory: Denies cough and Reports dyspnea Gastrointestinal Gastrointestinal: Denies abdominal pain, Denies nausea and Denies vomiting Genitourinary Genitourinary: Denies dysuria Musculoskeletal Musculoskeletal: Denies joint swelling Integumentary/Breasts Skin/Breast: Denies rash Neurologic Neurologic: Denies weakness Exam Const General: no acute distress Orientation: alert HENKS Head: normal to inspection Ears: external ears normal General nose exam: external nose normal Mouth: moist mucous membranes Eyes General: appearance normal, both eyes and all related structures Neck Neck: normal visual inspection Resp Effort & Inspection: normal respiratory effort and able to speak in complete sentences Cardio Jugular venous pressure: no JVD Rate: regular rate Rhythm: regular rhythm Heart Sounds: no murmurs GI Palpation: soft and tender Skin General skin exam: no rashes or lesions noted Neuro General: patient alert and patient oriented x3 Extrem General: normal to inspection Psych Mental Status: mental status grossly normal Course Vital Signs Vital signs: Vital Signs Temperature 36.6 C 01/19/24 14:49 Pulse 85 01/19/24 14:49 Respiratory Rate 18 01/19/24 14:49 Blood Pressure 133/74 01/19/24 14:49 Pulse Oximetry 98 01/19/24 14:49 Temperature 36.6 C 01/19/24 14:49 Pulse 85 01/19/24 14:49 Respiratory Rate 18 01/19/24 14:49 Respiratory Effort Normal 01/19/24 15:16 Respiratory Depth Normal 01/19/24 15:16 Respiratory Pattern Normal 01/19/24 15:16 Blood Pressure 133/74 01/19/24 14:49 Blood Pressure Position Sitting 01/19/24 14:49 Pulse Oximetry 98 01/19/24 14:49 Oxygen Delivery Method Room Air 01/19/24 14:49 Oxygen Flow Rate 0 01/19/24 14:49 Pain Level 5 01/19/24 15:16 Lab/Test Results Lab/Test Results: Laboratory Tests Range/Units 01/19/24 15:11 WBC (4.4-10.8) 10^3/uL 5.71 RBC (4.36-5.78) 10^6/uL 4.58 Hgb (13.5-17.5) g/dL 13.6 Hct (40.0-50.0) % 40.3 MCV (80-95) fL 88 MCH (27.0-33.0) pg 29.7 MCHC (32.0-36.0) % 33.7 RDW (11.8-14.1) % 13.3 Plt Count (130-400) 10^3/uL 174 MPV (8.0-11.0) fL 10.0 Immature Gran % % 0.2 Neutrophils % % 64.0 Lymphocytes % % 24.5 Monocytes % % 7.2 Eosinophils % % 3.7 Basophils % % 0.4 Nucleated RBC % (0.0-0.3) % 0.0 Absolute Neutrophils (1.2-6.7) 10^3/uL 3.66 Absolute Lymphocytes (1.2-3.4) 10^3/uL 1.40 Absolute Monocytes (0.1-0.8) 10^3/uL 0.41 Absolute Eosinophils (0.0-0.7) 10^3/uL 0.21 Absolute Basophils (0.0-0.2) 10^3/uL 0.02 Medical Decision Making 68-year-old male with a history of diabetes, cirrhosis, hyperlipidemia, GERD, hypertension, comes in with continued intermittent chest heaviness and difficulty breathing sensation. He says this has been going on for 2 months intermittently. He cannot think of anything that makes it, go. Also has associated lightheadedness which he is feeling now, currently in normal sinus rhythm with stable vital signs. Seen a week ago with unremarkable workup last week. He is alert and oriented x 4 speaking clearly no distress. He has clear lung sounds, no leg swelling or calf tenderness, no JVD, he does have some abdominal tenderness mainly in the right upper and epigastric area without guarding on exam. Unclear etiology for his symptoms, will proceed with troponin, CBC, CMP, lipase and given he has continued symptoms with a negative x-ray last week obtain a CTA of the chest to exclude PE and less likely dissection. Will also obtain CT abdomen pelvis given his abdominal tenderness to evaluate for possible gallbladder disease. Labs unremarkable, CT negative other than question of a mild colitis, patient does note he had some diarrhea and had a bowel movement here that was loose. Given he has diarrhea we will trial short course of antibiotics. Will also trial prednisone. He is stable for discharge given he had well over 3 hours of symptoms do not feel delta troponin indicated. Will order c diff and fecal bacterial pathogen testing, if unable to provide sample will d/c with collection kit He was able to provide a sample for C. difficile but not fecal bacterial pathogens, he will return a sample to the lab when he is able to do 1 at home. I will call him if the test for C. difficile is positive. He will follow-up with his PCP and return precautions given. Differential Diagnosis Differential Diagnosis: ACS, PE, gallbladder disease Medical Records Medical records reviewed: Yes I reviewed the patient's medical records. Imaging Data Radiologic Study: Attestation: I personally reviewed and interpreted this imaging study as follows: Imaging: CT Scan Radiologist's impression: Patient Name: Yung Betancur Unit #: [id number] Loc: ER Ordering Provider: Roosevelt Sullivan M.D. Status: [facility] Primary Care Provider: Yung Horn Date of Exam: 01/19/24 Sex: M : 1955 Age: 68 Exam(s) a CT:CT chest PE abd & pelvis w Exam(s) CT CHEST PE ABD PELVIS W EXAM: CT CHEST PE ABD PELVIS W CLINICAL HISTORY: chest pain, dyspnea, upper abdominal pain. TECHNIQUE: Imaging Protocol: Axial CT angiography was performed with multi- slice acquisition and multi-planar and/or 3D reconstructions. CONTRAST MATERIAL: Intravenous: Omnipaque 350contrast volume:100 mL COMPARISON: CT CT CHEST PE CTA from 08/20/2020 FINDINGS: CHEST: Tracheobronchial tree: Patent where visualized. Pulmonary parenchyma: Mild dependent atelectatic changes are seen in the lung bases. No focal consolidating infiltrates are seen. No suspicious pulmonary nodules are present. No architectural distortion. Pulmonary Arteries: No evidence of filling defect to suggest pulmonary emboli. Mediastinum and Velma: No dominant adenopathy or fluid collection. The esophagus is unremarkable. Visualized thyroid gland: Unremarkable. Pleura: No effusion or pneumothorax. Heart: The heart is not dilated. No coronary artery calcifications are seen. No pericardial effusion. Aorta: Thoracic aorta non-dilated. No evidence of dissection. Atherosclerotic calcification is present. Bones: Within normal limits for the patient's age. Old healed sternal fracture. Soft tissues: Unremarkable. ABDOMEN: Liver: Normal density. No measurable mass. The liver measures 21 cm long. Portal, Superior Mesenteric, and Splenic Veins: Unremarkable. Gallbladder and Biliary Tract: Status post cholecystectomy. No significant biliary ductal dilatation. Pancreas: There is mild fatty replacement of the pancreas. No evidence of a pancreatic mass or peripancreatic fluid collection. Spleen: Spleen measures 14.2 cm long. Adrenals: No masses seen. Kidneys: Normal size, contour and axis. No radiodense stones or obstructive uropathy. There are bilateral renal cysts. No follow-up is recommended. Abdominal Aorta: Abdominal portion non-dilated. Atherosclerotic calcification is present. Bowel: There are postsurgical changes seen in the stomach. Anastomotic clips are seen in the small bowel in the left abdomen. There is diverticulosis of the colon but no evidence of acute diverticulitis. There is mild thickening of the wall of the sigmoid colon and rectum without associated inflammatory changes in the soft tissues. This may be due to underdistention. Mild inflammatory/infectious process cannot be excluded. Appendix is unremarkable. Peritoneal Cavity: No ascites, collection or mesenteric inflammatory response. No free air. Lymph Nodes: Within normal limits. Bones: Within normal limits for the patient's age. Soft Tissues: There are bilateral fat containing inguinal hernias. PELVIS: Bladder: Symmetric distention, no gross wall thickening. Reproductive Organs: There is a penile implant present. Lymph Nodes: Within normal limits. Bones: Within normal limits. IMPRESSION: 1. No evidence pulmonary embolism, thoracic aortic dissection or aneurysm. 2. No acute pulmonary process. 3. Mild thickening of the wall of the sigmoid colon and rectum. This may be due to underdistention. No inflammatory changes are seen in the surrounding soft tissues. No free air or abscess. A mild inflammatory/infectious colitis cannot be excluded. Please correlate clinically. Lab Data Lab results reviewed: Yes I reviewed the patient's lab results. ECG Data Attestation: I personally reviewed and interpreted this ECG (s) as follows: Prior ECG tracings: available for review Interpretation: sinus rate of 79 no stemi Quality:SDOH Health Related Social Needs: No Data to Display PFSH All Active Problems (Updated 01/19/24 @ 17:18 by Roosevelt Sullivan MD) Diarrhea (Acute) Abdominal pain (Acute) Chest pain (Acute) Peyronie's disease (Acute) Memory impairment (Acute) Osteoarthritis of knees, bilateral (Acute) Peroneal tendinitis (Acute) Mass of parotid gland (Acute) Closed fracture of finger of left hand (Acute 09/29/21) small finger Hiatal hernia (Chronic) Foot pain, right (Acute) Cellulitis of foot, right (Acute) Other sprain of right shoulder joint, initial encounter (Acute) Fall (Acute) SOB (shortness of breath) (Acute) Shortness of breath at rest (Acute) Weakness with dizziness (Acute) Anastomotic stricture of gastrojejunostomy (Acute) Diabetes mellitus type II, uncontrolled (Chronic) S/P gastric bypass (Chronic) Liver cirrhosis secondary to nonalcoholic steatohepatitis (HERR) (Acute) Degenerative cervical spinal stenosis (Chronic 12/23/14) Hyperlipidemia (Acute 05/16/13) Obesity (BMI 35.0-39.9 without comorbidity) (Acute) Hypertension (Acute) GERD (gastroesophageal reflux disease) (Acute) Dysphagia (Chronic) Chest pain (Acute) Medical History GERD (gastroesophageal reflux disease) Alcoholic cirrhosis of liver without ascites Non-insulin dependent type 2 diabetes mellitus Dementia Per pt. states he still signs for himself Low back pain Chest pain Per pt. this was related to when he had gastric bypass he had scarring over his esophagus, and it wasn't cardiac in nature Elevated bilirubin Abnormality of penis (11/18/14) Anxiety (07/16/14) Benign neoplasm of colon (08/15/11) Depression (07/16/14) Erectile dysfunction (06/19/14) Sensorineural hearing loss, bilateral (01/06/17) BPH (benign prostatic hyperplasia) Surgical History Hx of cholecystectomy 09/15/23 pt denies he has had a cholecyctectomy. He reports he has had a gastric bypass. F.,[place] RN Hx of total knee replacement Bilateral. History of colonoscopy (~10/30/20) History of esophagogastroduodenoscopy (EGD) (~08/13/21) 10/30/20 H/O gastric bypass 2010 bunionectomy (07/18/14) Left Dr Márquez Rotator Cuff Repair Repair, ACL Repair of inguinal hernia Family History Mother Alzheimer disease Social History Smoking/Tobacco Use Status: Former Tobacco Use Quit Date: 07/10/85 Smoking risk assessment performed?: Yes Alcohol Intake: former Drug use: Never Substance use type: does not use Household members: spouse Housing: house current occupation: retired Current gender identity: male What is your relationship status?: Panel score (0-1 are the most socially isolated patients): 1 Do you feel safe at home: Yes (unable to assess privately) Do you feel safe in your relationship?: Yes
[2024-01-19 15:41] LABS: ALT 24 U/L (16-63); AST 18 U/L (15-37); Albumin 3.9 g/dL (3.4-5.0); Alkaline Phosphatase 86 U/L (46-116); Anion Gap 8.2 mmol/L (3-11); BUN 12 mg/dL (7-18); Bilirubin, Total 0.59 mg/dL (0.2-1.0); CO2 25.8 mmol/L (21.0-32.0); Calcium 9.1 mg/dL (8.5-10.1); Chloride 104 mmol/L (98-107); Estimated GFR 82.49 (mL/min/1.73m2); Glucose 90 mg/dL (74-106); Lipase 27 U/L (16-77); Magnesium 1.5 mg/dL (1.8-2.4); Potassium 4.1 mmol/L (3.5-5.1); Sodium 138 mmol/L (136-145); Total Protein 7.1 g/dL (6.4-8.2)
[2024-01-19 15:50] LABS: Bilirubin, Direct 0.2 mg/dL (0.0-0.2); NT-proBNP 119 pg/mL (<300); Troponin I < 50 ng/L (< or =60)
[2024-01-19] MEDS: Omnipaque 350 MG/ML 100 ML BTL IJ (16:15)
[2024-01-19] MEDS: Normal Saline - Diluent 50 ML VIAL IJ (16:16)
[2024-01-19] MEDS: metroNIDAZOLE 500 MG TAB PO (18:18)
[2024-01-19] MEDS: Ciprofloxacin 500 MG TAB PO (18:18)
[2024-01-19] MEDS: predniSONE 20 MG TAB 60 MG PO (18:19)
[2024-01-19 18:31] LABS: C Diff PCR Negative (Negative)
== END 2024-01-19 18:17 | disposition home or self-care (01) ==
PROVIDERS: Emergency Provider Emergency Medicine; PCP Family Medicine
DX: R10.9 Unspecified abdominal pain (principal); R19.7 Diarrhea, unspecified; E11.9 Type 2 diabetes mellitus without complications; E78.5 Hyperlipidemia, unspecified; I10 Essential (primary) hypertension; Z79.84 Long term (current) use of oral hypoglycemic drugs; Z98.84 Bariatric surgery status
CPT/HCPCS: 71275; 74177; 80053; 83690; 87493; 87505; 93005; 99285; 82248; 83735; 83880; 84484; 85025; 85610; 85730; 93010; 99284; J3490; J7512

== ENCOUNTER 2024-01-20 08:39 | Outpatient (REF) | payer MEDICARE, SELFPAY ==
[2024-01-21 19:50] LABS: Campylobacter PCR Negative (Negative); Salmonella PCR Negative (Negative); Shiga Toxin PCR Negative (Negative); Shigella/Enteroinvasive Ecoli Negative (Negative)
== END 2024-01-20 08:40 | disposition home or self-care (01) ==
LOC: LBN 08:39
PROVIDERS: PCP Family Medicine; Visit Provider Emergency Medicine
DX: R19.7 Diarrhea, unspecified (principal)
CPT/HCPCS: 87505

== ENCOUNTER 2024-02-21 09:27 | Outpatient (REF) | payer MEDICARE, SELFPAY ==
--- OUTSIDE RECORDS SUMMARY | 2024-02-21 09:30 | XMS_ITS | Encounter Summary ---
[place] [address] Care Team Providers Care Arabic Translator Name Role Phone Yung Horn MD Primary Care Provider [phone] Reason for Visit * Diagnostic Test (Routine) - Closed Specialty Diagnoses / Procedures Referred By Contac t Referred To Contact Neurology Diagnoses Impingement syndrome of left shoulder Ching Murray PA [address] [place] [address] [facility] [address] [place] [address] Referral ID Status Reason Start Date Expiration Date V isits Requested Visits Authorized [id number] Closed Test Only 01/06/2023 01/06/2024 1 1 Encounter Details Date Type Department Care Team (Latest Contact Info) Description 05/05/2023 8:00 AM EDT Procedure [place] [address] Derrick Anderson DO Impingement syndrome of left shoulder Social History [...] Anderson DO - 05/05/2023 8:00 AM EDT [facility] NERVE CONDUCTION AND ELECTROMYOGRAPHY EVALUATION - 05/05/23 BRIEF HISTROY: Yung Betancur is a 67 y.o. male referred for electrodiagnostic evaluation of upper extremity numbness by: Ching Murray PA [address] [place] [address]: Report scanned into EDH: 05/05/23 Focused History: [...] Derrick Anderson DO Neuromuscular Medicine Neurology Department [facility] I spent a total of 30 Minutes in discussion/counseling related to ongoing medical problems, with 30minutes in same day chart and test review, ordering testing/drugs, coordination of care and documentation, excluding the time spent in performing electrodiagnostic studies. documented in this encounter Plan of Treatment Upcoming Encounters Date Type Department Care Team (Late st Contact Info) Description 02/22/2024 11:40 AM EDT [place] [address] Manoj Vinson MD [facility] [place] [address] Scheduled Referrals Name Type Priority Associated Diagnoses Orde r Schedule Referral to Neurology Outpatient Referral Routine Impingement syndrome of left shoulder Ordered: 01/06/2023 documented as of this encounter Visit Diagnoses Diagnosis Impingement syndrome of left shoulder Other affections of shoulder region, not elsewhere classified documented in this encounter Care Teams Arabic Translator Relationship Specialty Start Date End Date Yung Horn MD [address] [place] [address] PCP - General 11/22/16 documented as of this encounter
--- OUTSIDE RECORDS SUMMARY | 2024-02-21 09:30 | XMS_ITS | Encounter Summary ---
[place] [address] Care Team Providers Care Treasury Agent Name Role Phone Yung Horn MD Primary Care Provider [phone] Encounter Details Date Type Department Care Team [...] 11:40 AM EDT [place] [address] Manoj Vinson MD [facility] [place] [address] documented as of this encounter Visit Diagnoses Not on filedocumented in this encounter Care Teams Treasury Agent Relationship Specialty Start Date End Date Yung Horn MD [address] [place] [address] [place] [id number] PCP - General 11/22/16 documented as of this encounter
--- OUTSIDE RECORDS SUMMARY | 2024-02-21 09:30 | XMS_ITS | Encounter Summary ---
[place] [address] Care Team Providers Care Millwork Estimator Name Role Phone Yung Horn MD Primary Care Provider [phone] Reason for Referral * Consultation (Routine) - Authorized Specialty Diagnoses / Procedures Referred By Contkelly ramesh Referred To Contact Urology Diagnoses Erectile dysfunction, unspecified erectile dysfunction type Other mechanical complication of implanted penile prosthesis, initial encounter [address] [id number] BAUMANN NOT FUNCTIONING Sherlyn Hudson APRN [address] [place] [address] [facility] [place] [address] Referral ID Status Reason Start Date Expiration Date Visits Requested Visits Authorized [id number] Authorized Consult, Test & Treat PCP Updated and/or Approved 3 06/04/2024 6 6 Encounter Details Date Type Department Care Team (Latest Contact Info) Description 06/05/2023 Transcribe Orders eDH Incoming Referrals [phone] Sherlyn Hudson APRN [address] [place], [place] [address] Erectile dysfunction, unspecified erectile dysfunction type; Other [...] 11:40 AM EDT [place] [address] Manoj Vinson MD [facility] [place] [address] Scheduled Referrals Name Type Priority Associated Diagnoses Orde r Schedule Referral to Urology Outpatient Referral Routine Erectile dysfunction, unspecified erectile dysfunction type Other mechanical complication of implanted penile prosthesis, initial encounter Ordered: 06/05/2023 documented as of this encounter Visit Diagnoses Diagnosis Erectile dysfunction, unspecified erectile dysfunction type Other mechanical complication of implanted penile prosthesis, initial encounter documented in this encounter Care Teams Millwork Estimator Relationship Specialty Start Date End Date Yung Horn MD [address] [place] [address] PCP - General 11/22/16 documented as of this encounter
--- OUTSIDE RECORDS SUMMARY | 2024-02-21 09:30 | XMS_ITS | Encounter Summary ---
[place] [address] Care Team Providers Care Hardener Helper Name Role Phone Yung Horn MD Primary Care Provider [phone] Encounter Details Date Type Department Care Team (Late Contact Info) Description 09/20/2023 [place] [address] Korey Ellis, RN Social History Tobacco Use [...] will be getting a call from the construction secretary to schedule a follow-up appointment. documented in this encounter Plan of Treatment Upcoming Encounters Date Type Department Care Team (Late Contact Info) Description 02/22/2024 11:40 AM EDT [place] [address] Manoj Vinson MD [facility] [place] [address] documented as of this encounter Visit Diagnoses Not on filedocumented in this encounter Care Teams Hardener Helper Relationship Specialty Start Date End Date Yung Horn MD [address] [place] [address] PCP - General 11/22/16 documented as of this encounter
--- OUTSIDE RECORDS SUMMARY | 2024-02-21 09:30 | XMS_ITS | Encounter Summary ---
[place] [address] Care Team Providers Care Bindery Machine Feeder Offbearer Name Role Phone Yung Horn MD Primary Care Provider [phone] Reason for Referral * Diagnostic Test (Routine) - Closed Specialty Diagnoses / Procedures Referred By Marisela ramesh Referred To Contact Radiology Diagnoses Malfunction of penile prosthesis, initial encounter Procedures CT Abdomen & Pelvis wo Contrast Manoj Vinson MD [facility] [place] [address] [facility] [place] [address] Referral ID Status Reason Start Date Expiration Date V isits Requested Visits Authorized [id number] Closed Specialty Service Requested 07/25/2023 01/22/2025 1 1 Reason for Visit * Consultation (Routine) - Authorized Specialty Diagnoses / Procedures Referred By Marisela ramesh Referred To Contact Urology Diagnoses Erectile dysfunction, unspecified erectile dysfunction type Other mechanical complication of implanted penile prosthesis, initial encounter 3 [id number] PL[address] BAUMANN NOT FUNCTIONING Sherlyn Hudson, ROBBI [address] [place] [address] [facility] [place] [address] Referral ID Status Reason Start Date Expiration Date Visits Requested Visits Authorized [id number] Authorized Consult, Test & Treat PCP Updated and/or Approved 3 06/04/2024 6 6 Encounter Details Date Type Department Care Team (Late st Contact Info) Description 07/25/2023 11:00 AM EST Office Visit Urology at [facility] [place] [address] Manoj Vinson MD [facility] [place] [address] Malfunction of penile prosthesis, initial encounter; Acquired [...] and distal measurements were 6 cm bilaterally. [place] was placed on the right in the [...] 11:40 AM EDT [place] [address] Manoj Vinson MD [facility] [place] [address] documented as of this encounter Procedures Procedure Name Priority Date/Time Associated Diagnosis Comments HEMOGLOBIN A1C Routine 07/25/2023 12:01 PM EST Type 2 [...] who have questions please contact the health childcare center director that requested your imaging first. ? Electronically signed by: Puneet Rodriguez MD, [facility] ([phone]), at 09/20/2023 8:26 AM Narrative 09/20/2023 8:26 [...] space. The reservoir appearsdecompressed, new compared to 202. The catheter extends along the right inguinal [...] patients who have questions please contactthe health childcare center director that requested your imaging first. Electronically signed by: Puneet Rodriguez MD, [facility]([phone]), at 09/20/2023 8:26 AM Manoj Vinson MD IM CT ORDERABLES * (ABNORMAL) Hemoglobin A1c (07/25/2023 12:01 PM EST) Hemoglobin A1c 6.3(H) 4.3 - 5.6 % [facility] Comment: Reference Range: 4.3 - [...] Mellitus, Diabetes Care 2013; 36: Suppl. 1, I31-47 Estimated Average Glucose 134 mg/dL [facility] Blood 07/25/2023 12:0 1 PM EST 07/25/2023 12:06 PM EST Narrative Resulting Agency Comment Spec In Lab Manoj Vinson MD CHEMISTRY ORDERABLES [facility] [place] [address] documented in this encounter Visit Diagnoses Diagnosis Malfunction of penile prosthesis, initial encounter Acquired buried penis Other specified disorder of penis Type 2 diabetes mellitus with other specified complication, without long-term current use of insulin Malfunction of penile prosthesis, initial encounter documented in this encounter Care Teams Bindery Machine Feeder Offbearer Relationship Specialty Start Date End Date Yung Horn MD [facility] [place] [address] [place] [address] PCP - General 11/22/16 documented as of this encounter
--- OUTSIDE RECORDS SUMMARY | 2024-02-21 09:30 | XMS_ITS | Encounter Summary ---
Author Organization [facility] [place] [address] Care Team Providers Care C Architect Name Role Phone Yung Horn MD Primary Care Provider [phone] Encounter Details Date Type Department Care Team (Late st Contact Info) Description 04/20/2022 Ancillary Procedure [place] [address] Yung Horn MD [facility] [place] [address] Social History Tobacco Use Types Packs/Day Years [...] 11:40 AM EDT [place] [address] [facility] [place] [address] documented as of this encounter Procedures Procedure [...] is for storage only. Yung Horn MD G FILM LIBRARY ORD ERABLES Performing Organization Address City/State/[facility] Co de Phone Number [place], [place] documented in this encounter Visit Diagnoses Not on filedocumented in this encounter Care Teams C Architect Relationship Specialty Start Date End Date Yung Horn MD [address] [place] [place] [address] PCP - General 11/22/16 documented as of this encounter
--- OUTSIDE RECORDS SUMMARY | 2024-02-21 09:30 | XMS_ITS | Clinical Summary ---
Author Organization [facility] Address [facility] [place] [address] Care Team Providers Care Automotive Quality Engineer Name Role Phone Yung Horn MD Primary Care Provider [phone] Allergies Active Allergy Reactions Criticality Noted Date Comments Adhesive Tape Rash Medium 04/23/2015 Atorvastatin 01/25/2024 Bandages, Cohesive Rash Medium 06/09/2015 Medications Medication Sig Dispensed Refills Start Date End Date Status metFORMIN (FORTAMET) 1,000 mg Tablet Extended Rel 24 hr Take 1,000 mg by mouth 2 times daily (with meals). One tablet per day Active gabapentin (NEURONTIN) 600 mg Tablet Take 800 mg by mouth 3 times daily. Active acetaminophen (TYLENOL) 500 mg Tablet Take 2 tablets by mouth every 6 hours as needed for Pain. 06/10/2015 Active Venlafaxine 225 mg Tablet Extended Rel 24 hr daily. 0 2018 Active dulaglutide (Trulicity) 0.75 mg/0.5 mL Pen Injector Inject 0.75 mg subcutaneously once a week. Active tamsulosin (Flomax) 0.4 mg Capsule TAKE ONE CAPSULE BY MOUTH EVERY NIGHT AT BEDTIME 07/09/2021 Active pantoprazole EC (Protonix) 40 mg Tablet, Delayed Release (E.C.)Indications :HERR (nonalcoholic steatohepatitis) TAKE 1 TABLET BY MOUTH TWICE DAILY 60 tablet 1 10/08/2021 Active liraglutide (Victoza 2-Varghese) 0.6 mg/0.1 mL (18 mg/3 mL) Pen Injector Inject 1.2 mg subcutaneously. 08/23/2023 Active OneTouch UltraSoft 2 Lancet 30 gauge Misc 12/31/2023 Active diclofenac (Voltaren) 1 % Gel 11/30/2023 Active clotrimazole (LOTRIMIN) 1 % Cream Apply twice a day 11/09/2020 Active FreeStyle Lite Meter Kit 11/08/2023 Active freestyle lite strips 12/27/2023 Active lidocaine (Xylocaine) 5 % Ointment Apply by topical route for 25 days. Active oxyCODONE-acetami nophen (Percocet) 5-325 mg tablet Take 1 tablet by mouth every 4 hours as needed for Pain (for pain not relieved by tylenol). 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 Cath 05/26: Mid LAD bridge, o/w no significant CAD. R heart pressures not assessed ?? Echo 08/29 ([place]): Normal LV, mildly dilated RV, PASP 30-40 ?? Treadmill Stress Echo 01/26: baseline EF 60% without WMAs. No significant valve disease, RV intact but PASP 52. 6 METs/79% predicted max HR. No ischemia. Peyronie's disease 02/18/2015 Male erectile dysfunction 02/18/2015 Encounters Date Type Department Care Team Description 02/21/2024 [place] [address] Meghna Beasley 02/15/2024 1:00 PM EDT [place] [address] Nikolay Reyez MD Acquired buried penis 02/15/2024 Travel 02/08/2024 8:57 AM EDT Anesthesia Event Main OR at [address] [address] Herb Stone, Tatiana Werner CRNA 02/08/2024 8:30 AM EDT - 02/08/2024 11:00 AM EDT Surgery Main OR at [address] [address] Manoj Vinson MD ADJ.TISSUE TRANSFER, REARRANGEMENT, 10.1 TO 30 SQ.CM, GENITALIA (WRVU 10.83) 02/08/2024 7:15 AM EDT - 02/08/2024 12:24 PM EDT Hospital Encounter PACU at [address] [address] Manoj Vinson MD Discharge Disposition: Home 02/01/2024 11:15 AM EDT Telephone Pre Admission Testing at [address] [address] 01/31/2024 10:20 AM EDT [place] [address] Manoj Vinson MD Acquired buried penis; Failure of penile implant, subsequent encounter 01/31/2024 Orders Only Urology [address] [place] [phone] Manoj Vinson MD 01/31/2024 Travel 01/22/2024 [place] [address] Huong Apple from Last 3 Months Social History Tobacco [...] Sign Reading Time Taken Comments Blood Pressure 126/77 02/15/2024 1:07 PM EDT Pulse 85 02/15/2024 1:07 PM EDT Temperature 36.7 ??C (98 ??F) 02/08/2024 12:15 PM EDT Respiratory Rate 12 02/08/2024 12:00 PM EDT Oxygen Saturation 94% 02/08/2024 12:15 PM EDT Inhaled Oxygen Concentration - - Weight 99.2 kg (218 lb 9.6 oz) 02/08/2024 8:00 A M EDT Height 177.8 cm (5' 10) 02/08/2024 8:00 AM EDT Body Mass Index 31.37 02/08/2024 8:00 AM EDT Plan of Treatment Upcoming Encounters Date Type Department Care Team (Late st Contact Info) Description 02/22/2024 11:40 AM EDT Office Visit Urology at [facility] [place] [address] Manoj Vinson MD [facility] [place] [address] Health Maintenance Due Date Last Done Comments [...] 08/05/2015 Diabetes Screening (HgbA1C o r Glucose) 01/30/2027 01/31/2024, 01/31/2024, 07/25/2023, Additional history exists Medical Devices Implanted Type Area Mineralogy Professor Device Identifier Shelf Expiration Date Model / Serial / Lot Prosthesis,Am s700ms,Kt,Acs ry ([id number]) - [id number] Implanted:Qty : 1 on 06/09/2015 by Ebenezer Patino III, MD at [facility] IMPLANTS N/A: Penis DO NOT USE [employer] - [id number] 04/28/2020 [id number] / / [id number] Prost,700,Cx, Mspump,15cmx1 2mm ([id number]) - [id number] Implanted:Qty : 1 on 06/09/2015 by Ebenezer Patino III, MD at [facility] IMPLANTS N/A: Penis DO NOT USE [employer] - [id number] 09/25/2016 [id number] / / [id number] Prosthesis,Sp ectracx-Lgx,4 cm ([id number]) - [id number] Implanted:Qty : 1 on 06/09/2015 by Ebenezer Patino III, MD at [facility] IMPLANTS N/A: Penis DO NOT USE [employer] - [id number] 02/24/2020 [id number] / / [id number] Prosthesis,70 0ms,Rsvr,65ml ([id number]) - [id number] Implanted:Qty : 1 on 06/09/2015 by Ebenezer Patino III, MD at [facility] IMPLANTS N/A: Penis DO NOT USE [employer] - [id number] 05/13/2017 [id number] / 0 / [id number] Procedures Procedure Name Priority Date/Time Associated Diagnosis Comments POCT GLUCOSE Routine 02/08/2024 10:56 AM EDT SPECIMEN TO PATHOLOGY Routine 02/08/2024 10:38 AM EDT SURGICAL PATHOLOGY REPORT Routine 02/08/2024 10:27 AM EDT POCT GLUCOSE Routine 02/08/2024 9:52 AM EDT Adj Tiss Transfer Head, Fac, Hand 10.1-30 ([id number]) 02/08/2024 8:57 AM EDT Acquired buried penis POCT GLUCOSE Routine 02/08/2024 8:48 AM EDT POCT GLUCOSE Routine 02/08/2024 8:09 AM EDT DIFFERENTIAL, AUTOMATED Routine 01/31/2024 11:41 AM EDT Acquired buried penis HEMOGRAM Routine 01/31/2024 11:41 AM EDT Acquired buried penis CBC (WITH DIFF) Routine 01/31/2024 11:41 AM EDT Acquired buried penis BASIC METABOLIC PANEL Routine 01/31/2024 11:41 AM EDT Acquired buried penis HEMOGLOBIN A1C Routine 01/31/2024 11:41 AM EDT Acquired buried penis EKG 12-LEAD Routine 01/31/2024 11:28 AM EDT Acquired buried penis COLONOSCOPY Routine 08/05/2015 2:52 PM EST from Last 3 Months or Most Recently Relevant to Health Maintenance Results * (ABNORMAL) POCT Glucose (02/08/2024 10:56 AM EDT) Only the most recent of4 resultswithin the time period is included. Glucose, POC 234(H) 65 - 199 mg/dL [facility] Blood 02/08/2024 10:5 6 AM EDT 02/08/2024 10:56 AM EDT Narrative Authorizing Provider Result Jose Maria Vinson MD POINT OF CARE TEST O RDERABLES [facility] [address] [place] [address] * Specimen to Pathology (02/08/2024 10:38 AM EDT) AP Specimen 02/08/2024 10:3 8 AM EDT 02/08/2024 10:38 AM EDT Narrative [facility] - 02/08/2024 10:38 AM EDT Specimen requisition ordered. ??Separate Pathology report to follow Authorizing Provider Result Jose Maria Vinson MD PATHOLOGY/CYTOLOGY O RDERABLES [facility] [place] [address] * Surgical Pathology Report (02/08/2024 10:27 AM EDT) Surgical Pathology Report [id number] ? Location: [facility]; [address] The signing pathologist has (i) examined the relevant preparation(s) for the specimen(s) and (ii) rendered or confirmed the diagnosis(es). . ?Surgical Pathology DIAGNOSIS A - Subcutaneous fibroadipose tissue, suprapubic fat pad-clinically Gross surgical pathology examination. Electronically signed by: ?Cuca Berrios MD, [facility] Verified: ??02/13/2024 10:11 Performed at: ??[place] [place]ology, [place] [address] Laundry Washer: Ramez Osborn MD, AP, ??CLIA Certificate: [id number] SPECIMEN(S) SUBMITTED A - A: Suprapubic Fat Pad, excision (1) CLINICAL INFORMATION Acquired buried penis SPECIMEN PROCESSING A - Labeled/Fixative : Suprapubic fat pad, formalin. Quantity/Size/We ight: Multiple, 14.0 x 11.5 x 3.5 cm, 186 g. Tissue Description: Constantino to yellow-red subcutaneous fibrofatty tissue. Skin: Unremarkable. Sectioning: Adipose and focal, ho-white fibrous tissue. Sections/Process ing: No sections submitted, gross diagnosis only ??shb [facility] 02/08/2024 10:2 7 AM EDT Manoj Vinson MD PATHOLOGY/CYTOLOGY O SANDOVAL [facility] [place] [id number] * (ABNORMAL) Hemogram (01/31/2024 11:41 AM EDT) Pathologist [facility] White Blood Cell 6.2 4.0 - 9.5 x10(3)/mc L [facility] Red Blood Cell 4.67 4.58 - 5.54 x10(6)/[facility] Hemoglobin 14.0 13.7 - 16.5 g/dL [facility] Hematocrit 39.7(L) 40.5 - 48.5 % [facility] Mean Cell Volume 85.0 82.9 - 93.1 fL [facility] Mean Cell Hemoglobin 30.0 27.5 - 32.1 pg [facility] Mean Cell Hemoglobin Concentration 35.3 32.0 - 35.7 g/dL [facility] Platelet 132(L) 145 - 357 x10(3)/[facility] RDW Standard Deviation 41.1 36.0 - 45.0 [facility] RDW coefficient of variation 13.2 11.4 - 13.8 % [facility] Mean Platelet Volume 10.3 7.6 - 12.9 [facility] NRBC% auto 0.0 % [facility] NRBC Absolute 0.000 0.000 - 0.000 x10(3)/[facility] Blood 01/31/2024 11:4 1 AM EDT 01/31/2024 11:52 AM EDT Narrative Resulting Agency Comment Spec In Lab Manoj Vinson MD HEMATOLOGY ORDERABLE S [facility] [place] [address] * Differential, Automated (01/31/2024 11:41 AM EDT) Neutrophil % 69.7 % [facility] Neutrophil Absolute 4.29 1.70 - 6.10 x10(3)/[facility] Lymph % 18.0 % [facility] Lymphocytes Abs 1.1 0.9 - 3.2 x10(3)/[facility] Monocyte % 8.3 % [facility] Monocyte Abs 0.5 0.3 - 0.9 x10(3)/[facility] Eos % 3.1 % [facility] Eosinophils Abs 0.2 0.0 - 0.4 x10(3)/[facility] Basophil % 0.3 % [facility] Baso Absolute 0.0 0.0 - 0.1 x10(3)/[facility] Immature Gran % 0.60 % [facility] Comment: Immature granulocytes(IG's)percentage and absolute count will include metamyelocytes, myelocytes, and promyelocytes. Blood smears from CBCs yielding IG's will be scanned manually for concordance. If this scan disagrees with the automated IG or if promyelocytes are noted, a manual differential will be performed. Immature Gran Absolute 0.04 0.00 - 0.04 x10(3)/[facility] Blood 01/31/2024 11:4 1 AM EDT 01/31/2024 11:52 AM EDT Narrative Resulting Agency Comment Spec In Lab Manoj Vinson MD HEMATOLOGY ORDERABLE S [facility] [place] [address] * (ABNORMAL) Hemoglobin A1c (01/31/2024 11:41 AM EDT) Hemoglobin A1c 8.2(H) 4.3 - 5.6 % [facility] Comment: Reference Range: 4.3 - [...] Mellitus, Diabetes Care 2013; 36: Suppl. 1, S67-60 Estimated Average Glucose 189 mg/dL [facility] Blood 01/31/2024 11:4 1 AM EDT 01/31/2024 11:52 AM EDT Narrative Resulting Agency Comment Spec In Lab Manoj Vinson MD CHEMISTRY ORDERABLES [facility] [place] [address] * (ABNORMAL) Basic Metabolic Panel (non-fasting) (01/31/2024 11:41 AM EDT) Glucose 289(H) 65 - 199 mg/dL [facility] Comment:Diabetes: >=200 mg/d L plus symptoms Blood Urea Nitrogen 13 10 - 20 mg/dL [facility] Creatinine 0.86 0.80 - 1.50 mg/dL [facility] Sodium 138 135 - 145 mmol/L [facility] Potassium 4.4 3.5 - 5.0 mmol/L [facility] Comment: Please note: ??Patients with WBC >100,000 may have falsely elevated Potassium levels. ??For accurate Potassium quantification in these patients send serum separator tube (gold top) for subsequent determinations. ??Contact the Clinical Chemistry Laboratory if there are any questions. Chloride 102 98 - 107 mmol/L [facility] Carbon Dioxide 25 22 - 31 mmol/L [facility] Anion Gap 11 5 - 15 mmol/L [facility] Calcium 9.5 8.5 - 10.5 mg/dL [facility] Est Glomerular Filtration Rate 95 >=60 mL/min/1. 73 m?? [facility] Comment: This patient's estimated GFR was calculated using the 2020 CKD-EPI equation. The estimated GFR can vary from the measured GFR by up to 30% in the absence of rapidly changing kidney function. Assessment of the estimated GFR is not appropriate when creatinine concentrations are rapidly changing. For clinical situations in which a more precise estimate of GFR is necessary, consider alternative methods of GFR estimation such as a 24-hour urine creatinine clearance. Assignment of CKD stage 1-5 for patients with an eGFR near the transition point between stages may be based on clinical assessment of muscle mass and symptoms in addition to eGFR. Blood 01/31/2024 11:4 1 AM EDT 01/31/2024 11:52 AM EDT Narrative Resulting Agency Comment Spec In Lab Manoj Vinson MD CHEMISTRY ORDERABLES Performing Organization Address City/[facility]/ZIP Co de Phone Number [facility] [place] [address] * EKG 12 Lead (01/31/2024 11:28 AM EDT) Ventricular rate 74 BPM MUSE SYSTEM Atrial Rate 74 BPM MUSE SYSTEM P-R Interval 178 ms MUSE SYSTEM QRS Duration 94 ms MUSE SYSTEM Q-T Interval 374 ms MUSE SYSTEM QTC Calculated (Bezet) 415 ms MUSE SYSTEM Calculated P [place] 62 degrees MUSE SYSTEM Calculated R [place] -7 degrees MUSE SYSTEM Calculated T [place] 40 degrees MUSE SYSTEM INTERPRETATION Normal sinus rhythm Normal ECG When compared with ECG of 29-JUL-2021 19:58, No significant change was found I personally reviewed the tracing and edited the fellows interpretation Confirmed by fellow MD Orlando, Tyson ([id number]) on 01/31/2024 3:44:24 PM Confirmed by MD Chua Jon ([id number]) on 01/31/2024 5:33:32 PM MUSE SYSTEM 01/31/2024 11:2 8 AM EDT 01/31/2024 5:33 PM EDT Manoj Vinson MD ECG ORDERABLES Performing Organization Address City/[facility]/ZIP Co de Phone Number MUSE SYSTEM * COLONOSCOPY (08/05/2015 2:52 PM EST) COLONOSCOPY [facility] Endoscopy Patient Name: Yung Betancur ? Procedure Date: 08/05/2015 2:52 PM ? Date of : 1955 ? Age: 59 ? Order #: [id number] ? Procedure: ? Colonoscopy Indications: ? Hematochezia Providers: ? Kwan Forte MD, Roosevelt Donnelly ? MATEO Hadley, Dee Dee Lopes, ? Bottling Supervisor Referring : ?Boston Hernandez MD Medicines: ? [...] capacity to make decision: Yes Care Teams Automotive Quality Engineer Relationship Specialty Start Date End Date Yung Horn MD [address] [place] [address] PCP - General 11/22/16
--- OUTSIDE RECORDS SUMMARY | 2024-02-21 09:30 | XMS_ITS | Encounter Summary ---
[place] [address] Care Team Providers Care Lime Sludge Kiln Operator Name Role Phone Yung Horn MD Primary Care Provider [phone] Encounter Details Date Type Department Care Team (Latest Contact Info) Description 02/15/2024 Travel Social History Tobacco Use Types Packs/Day [...] 11:40 AM EDT [place] [address] Manoj Vinson MD [facility] [place] [address] documented as of this encounter Visit Diagnoses Not on filedocumented in this encounter Care Teams Lime Sludge Kiln Operator Relationship Specialty Start Date End Date Yung Horn MD [address] [place] [address] [place] [address] PCP - General 11/22/16 documented as of this encounter
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
--- OUTSIDE RECORDS SUMMARY | 2024-02-21 09:30 | XMS_ITS | Encounter Summary ---
Author Organization [facility] [place] [address] Care Team Providers Care Sales Designer Name Role Phone Yung Horn MD Primary Care Provider [phone] Encounter Details Date Type Department Care Team (Late st Contact Info) Description 04/20/2022 12:05 AM EDT Ancillary Procedure [place] [phone] Yung Horn MD [address] [place] [address] [place] [phone] Social History Tobacco Use Types Packs/Day Years [...] 11:40 AM EDT [place] [phone] Manoj Vinson MD [facility] [address] documented as of this encounter Procedures Procedure [...] Horn MD IMG FILM LIBRARY ORD ERABLES Performing Organization Address City/State/[facility] Co de Phone Number [place], [place] documented in this encounter Visit Diagnoses Not on filedocumented in this encounter Care Teams Sales Designer Relationship Specialty Start Date End Date Yung Horn MD [address] [place] [place] [address] PCP - General 11/22/16 documented as of this encounter
--- OUTSIDE RECORDS SUMMARY | 2024-02-21 09:30 | XMS_ITS | Encounter Summary ---
[place] [address] Care Team Providers Care Montessori Lead Teacher Name Role Phone Yung Horn MD Primary Care Provider [phone] Reason for Referral * Consultation (Routine) - Duplicate Referral Specialty Diagnoses / Procedures Referred By Contac t Referred To Contact Neurology Diagnoses Impingement syndrome of left shoulder Ching Murray PA [address] [place] [id number] [facility] [address] [place] [phone] Referral ID Status Reason Start Date Expiration Date Visits Requested Visits Authorized [id number] Duplicate Referral Consult, Test & Treat 03/14/2023 03/13/2024 1 1 Encounter Details Date Type Department Care Team (Late st Contact Info) Description 03/14/2023 Transcribe Orders eDH Incoming Referrals [phone] Ching Murray PA [address] [place] [id number] Impingement syndrome of left shoulder Social History [...] 11:40 AM EDT [place] [address] Manoj Vinson MD [facility] [place] [address] Scheduled Referrals Name Type Priority Associated Diagnoses Orde r Schedule Referral to Neurology Outpatient Referral Routine Impingement syndrome of left shoulder Ordered: 03/14/2023 documented as of this encounter Visit Diagnoses Diagnosis Impingement syndrome of left shoulder Other affections of shoulder region, not elsewhere classified documented in this encounter Care Teams Montessori Lead Teacher Relationship Specialty Start Date End Date Yung Horn MD [address] [place] [address] PCP - General 11/22/16 documented as of this encounter
--- OUTSIDE RECORDS SUMMARY | 2024-02-21 09:30 | XMS_ITS | Encounter Summary ---
[place] [address] Care Team Providers Care Digester Capper Name Role Phone Yung Horn MD Primary Care Provider [phone] Reason for Referral * Diagnostic Test (Routine) - Closed Specialty Diagnoses / Procedures Referred By Contac t Referred To Contact Neurology Diagnoses Impingement syndrome of left shoulder Ching Murray PA [address] [place] [address] [facility] [address] [place] [phone] Referral ID Status Reason Start Date Expiration Date V isits Requested Visits Authorized [id number] Closed Test Only 01/06/2023 01/06/2024 1 1 Encounter Details Date Type Department Care Team (Late st Contact Info) Description 01/06/2023 Transcribe Orders eDH Incoming Referrals [phone] Ching Murray PA [address] [place] [address] Impingement syndrome of left shoulder Social History [...] 11:40 AM EDT [place] [address] Manoj Vinson MD [facility] [place] [address] Scheduled Referrals Name Type Priority Associated Diagnoses Orde r Schedule Referral to Neurology Outpatient Referral Routine Impingement syndrome of left shoulder Ordered: 01/06/2023 documented as of this encounter Visit Diagnoses Diagnosis Impingement syndrome of left shoulder Other affections of shoulder region, not elsewhere classified documented in this encounter Care Teams Digester Capper Relationship Specialty Start Date End Date Yung Horn MD [address] [place] [address] PCP - General 11/22/16 documented as of this encounter
--- OUTSIDE RECORDS SUMMARY | 2024-02-21 09:30 | XMS_ITS | Encounter Summary ---
Author Organization [facility] [place] [address] Care Team Providers Care Gas Burner Operator Name Role Phone Yung Horn MD Primary Care Provider [phone] Encounter Details Date Type Department Care Team (Late st Contact Info) Description 02/15/2024 1:00 PM EDT [place] [phone] Nikolay Reyez MD [facility] [place] [address] Acquired buried penis Social History Tobacco Use [...] Pulse 85 02/15/2024 1:07 PM EDT Temperature - - Respiratory Rate - - Oxygen Saturation - - Inhaled Oxygen Concentration - - Weight - - Height - - Body Mass Index - - documented in this encounter Progress Notes * Nikolay Reyez MD - 02/15/2024 1:00 PM EDT Images from the original note were not included. Urology Clinic Note HPI: Yung Betancur is a 68 y.o. 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 He has been doing well since surgery. Pain controlled. No fevers or chills. He notes he had a localreaction to the adhesive so he changed the bandage. Otherwise he is doing well. ROS: A complete review of systems was performed and all negative except as indicated above. Patient Vitals for the past 24 hrs: Pulse BP 02/15/24 1307 85 126/77 Exam: General: NAD CV: regular rate Pulm: nonlabored breathing on room air Abd: soft, non tender, nondistended : Incision is c/d/I. [place] in place. Some minor erythema at prior adhesive sites. Drains with SS output, removed without complication. Ext: warm and well-perfused Assessment: Yung Betancur is a 68 y.o. 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 Doing well post op. Drains removed without issue. Plan: - Staple removal with Dr. Vinson in [address] Plan discussed with Dr. Vinson, Urology attending. Nikolay Reyez MD 02/15/2024 documented in this encounter Plan of Treatment Upcoming Encounters Date Type Department Care Team (Late st Contact Info) Description 02/22/2024 11:40 AM EDT [place] [address] Manoj Vinson MD [facility] [place] [address] documented as of this encounter Visit Diagnoses Diagnosis Acquired buried penis Other specified disorder of penis documented in this encounter Care Teams Gas Burner Operator Relationship Specialty Start Date End Date Yung Horn MD [address] [place] [address] [place] [address] PCP - General 11/22/16 documented as of this encounter
--- OUTSIDE RECORDS SUMMARY | 2024-02-21 09:30 | XMS_ITS | Encounter Summary ---
Author Organization [facility] [place] [address] Care Team Providers Care 6Th Grade Teacher Name Role Phone Yung Horn MD Primary Care Provider [phone] Encounter Details Date Type Department Care Team (Late st Contact Info) Description 02/01/2024 11:15 AM EDT Telephone Pre Admission Testing at [address] [address] Social History Tobacco Use Types Packs/Day Years [...] as of this encounter Progress Notes * Maci Taylor RN - 02/01/2024 11:04 AM EDT EXPOSURE: Have you been in contact with anyone suspected of or confirmed to have COVID-19 or any other communicable illness in the PAST 10 DAYS? No INFECTIOUS DISEASE SCREENING: In the past 10 days, have you had any of the following symptoms: [] Fever (subjective or documented fever) [] Chills [] Cough [] Shortness of breath or difficulty breathing [] Fatigue [] Muscle or body aches [] Headache [] New loss of taste or smell [] Sore throat [] Nausea or vomiting [] Diarrhea [x]NONE OF THE ABOVE Tested positive for Covid (within the past 6 weeks): No Upper respiratory symptoms: No Lower respiratory symptoms: No OTHER SCREENING Anticipated Disposition from PACU: Home/Same Day Discharge Transportation Plan To and From Hospital: documented in this encounter Plan of Treatment Upcoming Encounters Date Type Department Care Team (Late st Contact Info) Description 02/22/2024 11:40 AM EDT Office [place] [address] Manoj Vinson MD [facility] [address] documented as of this encounter Visit Diagnoses Not on filedocumented in this encounter Care Teams 6Th Grade Teacher Relationship Specialty Start Date End Date Yung Horn MD [address] [place] [address] PCP - General 11/22/16 documented as of this encounter
--- OUTSIDE RECORDS SUMMARY | 2024-02-21 09:30 | XMS_ITS | Encounter Summary ---
Author Organization [facility] [place] [address] Care Team Providers Care Windows Application Developer Name Role Phone Yung Horn MD Primary Care Provider [phone] Encounter Details Date Type Department Care Team (Late st Contact Info) Description 08/29/2023 Telephone Urology at [place] [facility] [address] [place] [address] Huong Apple Social History Tobacco Use [...] 11:40 AM EDT Office [place] [address] Manoj Vinson MD [facility] [place] [address] documented as of this encounter Visit Diagnoses Not on filedocumented in this encounter Care Teams Windows Application Developer Relationship Specialty Start Date End Date Yung Horn MD [address] [place] [address] PCP - General 11/22/16 documented as of this encounter
--- OUTSIDE RECORDS SUMMARY | 2024-02-21 09:30 | XMS_ITS | Encounter Summary ---
[place] [address] Care Team Providers Care Lens Cutter Name Role Phone Yung Horn MD Primary Care Provider [phone] Encounter Details Date Type Department Care Team (Late st Contact Info) Description 11/10/2023 Orders Only Urology at [address] [phone] Manoj Vinson MD [facility] [place] [address] Acquired buried penis Social History Tobacco Use [...] 11:40 AM EDT [place] [address] Manoj Vinson MD [facility] [place] [address] Scheduled Orders Name Type Priority Associated Diagnoses Orde r Schedule SURGICAL CASE REQUEST: ADJ.TISSUE TRANSFER, REARRANGEMENT, 10.1 TO 30 SQ.CM, GENITALIA (WRVU 10.83) Procedures Routine Acquired buried penis Ordered: 11/10/2023 documented as of this encounter Visit Diagnoses Diagnosis Acquired buried penis Other specified disorder of penis documented in this encounter Care Teams Lens Cutter Relationship Specialty Start Date End Date Yung Horn MD [address] [place] [address] PCP - General 11/22/16 documented as of this encounter
--- OUTSIDE RECORDS SUMMARY | 2024-02-21 09:30 | XMS_ITS | Encounter Summary ---
[place] [address] Care Team Providers Care Block Breaker Operator Name Role Phone Yung Horn MD Primary Care Provider [phone] Encounter Details Date Type Department Care Team (Late st Contact Info) Description 08/30/2023 [place] [address] Korey Ellis, RN Social History Tobacco Use [...] - 08/30/2023 10:43 AM EST Copied from [facility] #[id number]. Topic: Specialty Dept CRMs - Generic Call [...] 11:40 AM EDT [place] [address] Manoj Vinson MD [facility] [place] [address] Scheduled Orders Name Type Priority Associated Diagnoses Orde r Schedule Creatinine Lab Routine Failure of penile implant, initial encounter Expected: 08/30/2023, Expires: 08/30/2024 documented as of this encounter Visit Diagnoses Diagnosis Failure of penile implant, initial encounter documented in this encounter Care Teams Block Breaker Operator Relationship Specialty Start Date End Date Yung Horn MD [address] [place] [address] PCP - General 11/22/16 documented as of this encounter
--- OUTSIDE RECORDS SUMMARY | 2024-02-21 09:30 | XMS_ITS | Encounter Summary ---
Author Organization [facility] Dorothy [facility] [place] [address] Care Team Providers Care Pickling Machine Operator Name Role Phone Yung Horn MD Primary Care Provider [phone] Encounter Details Date Type Department Care Team (Late st Contact Info) Description 08/03/2023 [place] [phone] Huong Apple Social History Tobacco Use Types [...] 11:40 AM EDT [place] [address] Manoj Vinson MD [facility] [place] [address] documented as of this encounter Visit Diagnoses Not on filedocumented in this encounter Care Teams Pickling Machine Operator Relationship Specialty Start Date End Date Yung Horn MD [address] [place] [address] PCP - General 11/22/16 documented as of this encounter
--- OUTSIDE RECORDS SUMMARY | 2024-02-21 09:30 | XMS_ITS | Encounter Summary ---
Author Organization [facility] [place] [address] Care Team Providers Care Hydraulic Hammer Operator Name Role Phone Yung Horn MD Primary Care Provider [phone] Reason for Visit * Reason Comments Medication Refill Encounter Details Date Type Department Care Team (Late st Contact Info) Description 03/07/2022 Refill [place] [phone] Tatiana Call APRN [facility] [place] [address] EHRR (nonalcoholic steatohepatitis) Social History Tobacco Use Types [...] 11:40 AM EDT Office [place] [phone] Manoj Vinson MD [facility] [place] [address] documented as of this encounter Visit Diagnoses Diagnosis HERR (nonalcoholic steatohepatitis) Other chronic nonalcoholic liver disease documented in this encounter Care Teams Hydraulic Hammer Operator Relationship Specialty Start Date End Date Yung Horn MD [address] [place] [address] PCP - General 11/22/16 documented as of this encounter
--- OUTSIDE RECORDS SUMMARY | 2024-02-21 09:30 | XMS_ITS | Encounter Summary ---
Author Organization [facility] [place] [address] Care Team Providers Care Waxing Machine Operator Name Role Phone Yung Horn MD Primary Care Provider [phone] Encounter Details Date Type Department Care Team (Late st Contact Info) Description 11/08/2023 3:00 PM EDT [place] [phone] Manoj Vinson MD [facility] [place] [address] Failure of penile implant, subsequent encounter; Acquired [...] and distal measurements were 6 cm bilaterally. [place] was placed on the right in the [...] 11:40 AM EDT [place] [address] Manoj Vinson MD [facility] [place] [address] documented as of this encounter Visit Diagnoses Diagnosis Failure of penile implant, subsequent encounter Acquired buried penis Other specified disorder of penis documented in this encounter Care Teams Waxing Machine Operator Relationship Specialty Start Date End Date Yung Horn MD [address] [place] [address] PCP - General 11/22/16 documented as of this encounter
--- OUTSIDE RECORDS SUMMARY | 2024-02-21 09:30 | XMS_ITS | Encounter Summary ---
[place] [address] Care Team Providers Care Travel Director Name Role Phone Yung Horn MD Primary Care Provider [phone] Encounter Details Date Type Department Care Team [...] 11:40 AM EDT [place] [address] Manoj Vinson MD [facility] [place] [address] documented as of this encounter Visit Diagnoses Not on filedocumented in this encounter Care Teams Travel Director Relationship Specialty Start Date End Date Yung Horn MD [address] [place] [address] [place] [address] PCP - General 11/22/16 documented as of this encounter
--- OUTSIDE RECORDS SUMMARY | 2024-02-21 09:30 | XMS_ITS | Encounter Summary ---
Author Organization [facility] [place] [address] Care Team Providers Care Mixing Machine Operator Name Role Phone Yung Horn MD Primary Care Provider Encounter Details Date Type Department Care Team (Late st Contact Info) Description 05/05/2023 External Results [place] [phone] Derrick Anderson DO Social History Tobacco Use Types Packs/Day Years [...] 11:40 AM EDT Office [place] [address] Manoj Vinson MD [facility] [place] [address] documented as of this encounter Procedures Procedure Name Priority Date/Time Associated Diagnosis Comments EMG SCAN Routine 05/05/2023 11:22 AM EDT documented in this encounter Results * Scan Doc: EMG (05/05/2023 11:22 AM EDT) Derrick Anderson DO MEDIA MGR SCAN EXT O RDR/RSLT documented in this encounter Visit Diagnoses Not on filedocumented in this encounter Care Teams Mixing Machine Operator Relationship Specialty Start Date End Date Yung Horn MD [address] [place] [address] PCP - General 11/22/16 documented as of this encounter
--- OUTSIDE RECORDS SUMMARY | 2024-02-21 09:30 | XMS_ITS | Encounter Summary ---
Author Organization [facility] [place] [address] Care Team Providers Care Marriage Counselor Minister Name Role Phone Yung Horn MD Primary Care Provider [phone] Encounter Details Date Type Department Care Team (Late st Contact Info) Description 01/31/2024 Orders Only Urology [address] [place] [phone] Manoj Vinson MD [facility] [address] Social History Tobacco Use Types Packs/Day Years [...] 11:40 AM EDT [place] [address] Manoj Vinson MD [facility] [address] documented as of this encounter Visit Diagnoses Not on filedocumented in this encounter Care Teams Marriage Counselor Minister Relationship Specialty Start Date End Date Yung Horn MD [address] [place] [address] [place] [address] PCP - General 11/22/16 documented as of this encounter
--- OUTSIDE RECORDS SUMMARY | 2024-02-21 09:30 | XMS_ITS | Encounter Summary ---
[place] [address] Care Team Providers Care Computer Technical Specialist Name Role Phone Yung Horn MD Primary Care Provider [phone] Encounter Details Date Type Department Care Team (Latest Contact Info) Description 01/31/2024 Travel Social History Tobacco Use Types Packs/Day [...] 11:40 AM EDT [place] [address] Manoj Vinson MD [facility] [place] [address] documented as of this encounter Visit Diagnoses Not on filedocumented in this encounter Care Teams Computer Technical Specialist Relationship Specialty Start Date End Date Yung Horn MD [address] [place] [address] [place] [address] PCP - General 11/22/16 documented as of this encounter
--- OUTSIDE RECORDS SUMMARY | 2024-02-21 09:30 | XMS_ITS | Encounter Summary ---
[place] [address] Care Team Providers Care Choir Singer Name Role Phone Yung Hron MD Primary Care Provider [phone] Reason for Referral * Diagnostic Test (Routine) - Closed Specialty Diagnoses / Procedures Referred By Contac t Referred To Contact Radiology Diagnoses Malfunction of penile prosthesis, initial encounter Procedures CT Abdomen & Pelvis wo Contrast Manoj Vinson MD [facility] [place] [address] [facility] [place] [address] Referral ID Status Reason Start Date Expiration Date V isits Requested Visits Authorized [id number] Closed Specialty Service Requested 07/25/2023 01/22/2025 1 1 Reason for Visit * Diagnostic Test (Routine) - Closed Specialty Diagnoses / Procedures Referred By Contac t Referred To Contact Radiology Diagnoses Malfunction of penile prosthesis, initial encounter Procedures CT Abdomen & Pelvis wo Contrast Manoj Vinson MD [facility] [place] [address] [facility] [place] [address] Referral ID Status Reason Start Date Expiration Date V isits Requested Visits Authorized [id number] Closed Specialty Service Requested 07/25/2023 01/22/2025 1 1 Encounter Details Date Type Department Care Team (Latest Contact Info) Description 09/18/2023 2:20 PM EDT - 09/18/2023 11:59 PM EDT Hospital Encounter CT Scan at [facility] [place] [phone] Manoj Vinson MD [facility] [place] [address] Malfunction of penile prosthesis, initial encounter Discharge [...] Sig Dispensed Refills Start Date End Date liraglutide (Victoza 2-Varghese) 0.6 mg/0.1 mL (18 mg/3 mL) Pen Injector Inject 1.2 mg subcutaneously. 08/23/2023 clotrimazole (LOTRIMIN) 1 % Cream Apply twice a day 11/09/2020 pantoprazole EC (Protonix) 40 mg Tablet, Delayed [...] daily (with meals). One tablet per day senna (Senokot) 8.6 mg tablet Take 17.2 mg by mouth. 04/29/202201/31 lisinopriL (Zestril) 20 mg tablet Take 1 tab by mouth daily for blood pressure 03/13/2020 02/01/2024 insulin lispro (HumaLOG) 100 unit/mL Solution Inject subcutaneously. 04/29/2022 0 02/01/2024 docusate sodium (Colace) 100 mg capsule Take 100 mg by mouth. 04/29/20222023 cyclobenzaprine (Flexeril) 5 mg tablet Take 5 mg by mouth. 02/16/2023 02/01/20 aspirin EC 81 mg EC (DR) tablet Take 1 tablet by mouth daily. 03/07/2022 02/01/2024 albuteroL (ProAir HFA) 90 mcg/actuation HFA Aerosol Inhaler Every 4 hours. 09/18/2020 02/01/2024 glipiZIDE (GLUCOTROL) 5 mg Tablet 10 mg 0 03/31/2017 02/01/2024 ferrous sulfate 324 mg (65 mg iron) Tablet, Delayed Release (E.C.)Indications:ir on deficiency anemia Take 324 mg by mouth. Indications: Iron Deficiency Anemia 02/01/2024 documented as of this encounter Plan of Treatment Upcoming Encounters Date Type Department Care Team (Late st Contact Info) Description 02/22/2024 11:40 AM EDT [place] [address] Manoj Vinson MD [facility] [place] [address] documented as of this encounter Procedures Procedure [...] who have questions please contact the health zoo caretaker that requested your imaging first. ? Electronically signed by: Puneet Rodriguez MD, [facility] ([phone]), at 09/20/2023 8:26 AM Narrative 09/20/2023 8:26 [...] patients who have questions please contactthe health zoo caretaker that requested your imaging first. Electronically signed by: Puneet Rodriguez MD, [facility]([phone]), at 09/20/2023 8:26 AM Manoj Vinson MD IMG CT ORDERABLES documented in this encounter Visit Diagnoses Diagnosis Malfunction of penile prosthesis, initial encounter documented in this encounter Care Teams Choir Singer Relationship Specialty Start Date End Date Yung Horn MD [address] [place] [address] PCP - General 11/22/16 documented as of this encounter
--- OUTSIDE RECORDS SUMMARY | 2024-02-21 09:30 | XMS_ITS | Encounter Summary ---
Author Organization Formerly [facility] [place] [address] Care Team Providers Care Emergency Room Physician Name Role Phone Yung Horn MD Primary Care Provider [phone] Reason for Visit * Auth/Cert (Routine) Specialty Diagnoses / Procedures Referred By Contac t Referred To Contact Diagnoses Acquired buried penis Acquired buried penis Procedures PRO ADJ TISS TRANSFER HEAD, FAC, HAND 10.1-30 ADJ.TISSUE TRANSFER, REARRANGEMENT, 10.1 TO 30 SQ.CM, GENITALIA (WRVU 10.83) Manoj Vinson MD [facility] [address] [facility] Referral ID Status Reason Start Date Expiration Date Visits Re quested Visits Authorized [id number] 1 1 Encounter Details Date Type Department Care Team (Late st Contact Info) Description 02/08/2024 8:30 AM EDT - 02/08/2024 11:00 AM EDT Surgery Main OR at [address] [address] Manoj Vinson MD [facility] [address] ADJ.TISSUE TRANSFER, REARRANGEMENT, 10.1 TO 30 SQ.CM, GENITALIA (WRVU 10.83) Social History Tobacco Use Types Packs/Day Years [...] Sign Reading Time Taken Comments Blood Pressure 105/63 02/08/2024 11:00 AM EDT Pulse 78 02/08/2024 11:00 AM EDT Temperature 36.1 ??C (96.9 ??F) 02/08/2024 10:53 AM E DT Respiratory Rate 12 02/08/2024 11:00 AM EDT Oxygen Saturation 96% 02/08/2024 11:00 AM EDT Inhaled Oxygen Concentration - - [...] removal (with me). This will be at [facility]. You will be contacted with the exact date and time. Please follow the below discharge instructions and contact my office if you have any questions. - If you were seen in clinic at [facility] in [place] call [phone]. - If you were seen in clinic at in [place] call [phone]. - If you were seen in clinic at [facility] in [place] call [phone]. - If you were seen in clinic at [facility] call [phone]. POSTOPERATIVE INSTRUCTIONS BURIED PENIS SURGERY Wound Care [...] to prescriptions. Prescriptions to be sent to [facility]. * Ana Laura Elizondo RN - 02/08/2024 [...] and distal measurements were 6 cm bilaterally. [place] was placed on the right in the [...] to proceed with buried penis repair at [facility] on February 07. Informed consent was [...] Vinson MD - 02/08/2024 10:57 AM EDT [facility] Brief Operative Note [address] Patient Name: Yung Betancur : [id number] MR#: [id number] Case Date: 02/08/2024 Case Scheduled Time: 829 [...] Vinson MD - 02/08/2024 9:24 AM EDT [facility] Operative Note [address] Patient Name: Yung Betancur : [id number] MR#: [id number] Case Date: 02/08/2024 Case Scheduled Time: 829 SURGEON: Manoj Vinson MD [employer] SPECIALIST: Shannon Rios MD ANESTHESIOLOGIST: Herb Stone CRNA [...] 11:40 AM EDT Office Visit Urology at [facility] [place] [address] Manoj Vinson MD [facility] [place] [address] documented as of this encounter Procedures Procedure Name Priority Date/Time Associated Diagnosis Comments POCT GLUCOSE Routine 02/08/2024 10:56 AM EDT SPECIMEN TO PATHOLOGY Routine 02/08/2024 10:38 AM EDT SURGICAL PATHOLOGY REPORT Routine 02/08/2024 10:27 AM EDT POCT GLUCOSE Routine 02/08/2024 9:52 AM EDT Adj Tiss Transfer Head, Fac, Hand 10.1-30 ([id number]) 02/08/2024 8:57 AM EDT Acquired buried penis POCT GLUCOSE Routine 02/08/2024 8:48 AM EDT POCT GLUCOSE Routine 02/08/2024 8:09 AM EDT documented in this encounter Results * (ABNORMAL) POCT Glucose (02/08/2024 10:56 AM EDT) Glucose, POC 234(H) 65 - 199 mg/dL [facility] Blood 02/08/2024 10:5 6 AM EDT 02/08/2024 10:56 AM EDT Manoj Vinson MD POINT OF CARE TEST O RDERABLES [facility] [address] [place] [address] * Specimen to Pathology (02/08/2024 10:38 AM EDT) AP Specimen 02/08/2024 10:3 8 AM EDT 02/08/2024 10:38 AM EDT Narrative [facility] - 02/08/2024 10:38 AM EDT Specimen requisition ordered. ??Separate Pathology report to follow Manoj Vinson MD PATHOLOGY/CYTOLOGY O RDMAGUI [facility] [place] [address] * Surgical Pathology Report (02/08/2024 10:27 AM EDT) Surgical Pathology Report [id number] ? Location: [facility]; [address] The signing pathologist has (i) examined the relevant preparation(s) for the specimen(s) and (ii) rendered or confirmed the diagnosis(es). . ?Surgical Pathology DIAGNOSIS A - Subcutaneous fibroadipose tissue, suprapubic fat pad-clinically Gross surgical pathology examination. Electronically signed by: ?Cuca Berrios MD, [facility] Verified: ??02/13/2024 10:11 Performed at: ??-[facility] Dept. of Pathology, [place] [address] Picture Copyist: Ramez Osborn MD, FCAP, ??CLIA Certificate: [id number] SPECIMEN(S) SUBMITTED A - A: Suprapubic Fat Pad, excision (1) CLINICAL INFORMATION Acquired buried penis SPECIMEN PROCESSING A - Labeled/Fixative : Suprapubic fat pad, formalin. Quantity/Size/We ight: Multiple, 14.0 x 11.5 x 3.5 cm, 186 g. Tissue Description: Constantino to yellow-red subcutaneous fibrofatty tissue. Skin: Unremarkable. Sectioning: Adipose and focal, ho-white fibrous tissue. Sections/Process ing: No sections submitted, gross diagnosis only ??shb [facility] 02/08/2024 10:2 7 AM EDT Narrative Authorizing Provider Result Jose Maria Vinson MD PATHOLOGY/CYTOLOGY O RDERABLES [facility] [place] [address] * (ABNORMAL) POCT Glucose (02/08/2024 9:52 AM EDT) Glucose, POC 211(H) 65 - 199 mg/dL [facility] Blood 02/08/2024 9:52 AM EDT 02/08/2024 9:52 AM EDT Narrative Authorizing Provider Result Jose Maria Vinson MD POINT OF CARE TEST O RDERAALINE Performing Organization Address City/[facility]/ZIP Co de Phone Number [facility] [address] [place] [address] * (ABNORMAL) POCT Glucose (02/08/2024 8:48 AM EDT) Glucose, POC 285(H) 65 - 199 mg/dL [facility] Blood 02/08/2024 8:48 AM EDT 02/08/2024 8:48 AM EDT Narrative Authorizing Provider Result Jose Maria Vinson MD POINT OF CARE TEST O RDERAALINE Performing Organization Address City/[facility]/ZIP Co de Phone Number [facility] [address] [place] [address] * (ABNORMAL) POCT Glucose (02/08/2024 8:09 AM EDT) Glucose, POC 315(H) 65 - 199 mg/dL [facility] Blood 02/08/2024 8:09 AM EDT 02/08/2024 8:09 AM EDT Narrative Authorizing Provider Result Jose Maria Vinson MD POINT OF CARE TEST O RDERAALINE Performing Organization Address City/[facility]/ZIP Co de Phone Number [facility] [address] [place] [address] documented in this encounter Visit Diagnoses Diagnosis Acquired buried [...] Given 02/08/2024 8:03 AM EDT 975 mg BUPivacaine (pf) (Marcaine) (5 mg/mL) 0.5% injection PRN, Starting on Kylee 02/08/24 at 0934, Until Kylee 02/08/24 at 1225, Intra-Operative (Intra-Procedure), Routine Given 02/08/2024 9:34 AM EDT 30 mLs Abdominal Tissue celecoxib (CeleBREX) capsule 200 mg 200 mg, [...] Day of Surgery (Day of Procedure), Routine 802 (Given - Provid er: Ana Laura Elizondo [...] Kylee 02/08/24 at 1225, Intra-Operative (Intra-Procedure), Routine 0934 (Given - Provid er: Manoj Vinson MD) oxyCODONE (Roxicodone) tablet 5 mg (CANCELED) 5 mg, Oral, EVERY 30 MIN PRN, 2 doses, Starting on Kylee 02/08/24 at 1122, Until Kylee 02/08/24 at 1210, Pain, PACU Recovery, Routine 1131 (Given - Provid er: Ana Laura Elizondo RN) documented in this encounter Care Teams Emergency Room Physician Relationship Specialty Start Date End Date Yung Horn MD [address] [place] [address] PCP - General 11/22/16 documented as of this encounter
--- OUTSIDE RECORDS SUMMARY | 2024-02-21 09:30 | XMS_ITS | Encounter Summary ---
Author Organization [facility] [place] [address] Care Team Providers Care Sewer Name Role Phone Yung Horn MD Primary Care Provider [phone] Encounter Details Date Type Department Care Team (Late st Contact Info) Description 04/20/2022 12:10 AM EDT Ancillary Procedure [place] [phone] Yung Horn MD [address] [place] [address] [place] [address] Social History Tobacco Use Types Packs/Day Years [...] 11:40 AM EDT [place] [address] Manoj Vinson MD [facility] [place] [address] documented as of this encounter Procedures Procedure [...] FILM LIBRARY ORD ERABLES Performing Organization Address City/State/[facility] Co de Phone Number [place], [place] documented in this encounter Visit Diagnoses Not on filedocumented in this encounter Care Teams Sewer Relationship Specialty Start Date End Date Yung Horn MD [address] [place] [address] [place] [address] PCP - General 11/22/16 documented as of this encounter
--- OUTSIDE RECORDS SUMMARY | 2024-02-21 09:30 | XMS_ITS | Encounter Summary ---
Author Organization [facility] [place] [address] Care Team Providers Care Automotive Designer Name Role Phone Yung Horn MD Primary Care Provider [phone] Reason for Visit * Reason Comments Medication Refill Encounter Details Date Type Department Care Team (Late st Contact Info) Description 08/10/2021 Refill [place] [address] Tatiana Call APRN [facility] [place] [address] HERR (nonalcoholic steatohepatitis) Social History Tobacco Use [...] 11:40 AM EDT Office [place] [address] Manoj Vinson MD [facility] [place] [address] documented as of this encounter Visit Diagnoses Diagnosis HERR (nonalcoholic steatohepatitis) Other chronic nonalcoholic liver disease documented in this encounter Care Teams Automotive Designer Relationship Specialty Start Date End Date Yung Horn MD [address] [place] [address] PCP - General 11/22/16 documented as of this encounter
--- OUTSIDE RECORDS SUMMARY | 2024-02-21 09:30 | XMS_ITS | Encounter Summary ---
[place] [address] Care Team Providers Care Major Case Detective Name Role Phone Yung Horn MD Primary Care Provider [phone] Encounter Details Date Type Department Care Team [...] Office [place] [address] Manoj Vinson MD [facility] [place] [address] documented as of this encounter Visit Diagnoses Not on filedocumented in this encounter Care Teams Major Case Detective Relationship Specialty Start Date End Date Yung Horn MD [address] [place] [address] [place] [address] PCP - General 11/22/16 documented as of this encounter
--- OUTSIDE RECORDS SUMMARY | 2024-02-21 09:30 | XMS_ITS | Encounter Summary ---
Author Organization [facility] [place] [address] Care Team Providers Care Supervisor International Reservations Name Role Phone Yung Horn MD Primary Care Provider [phone] Encounter Details Date Type Department Care Team (Late st Contact Info) Description 01/31/2024 10:20 AM EDT Office [place] [address] Mnaoj Vinson MD [facility] [place] [address] Acquired buried penis; Failure of penile implant, subsequent encounter Social History Tobacco Use Types Packs/Day [...] Sign Reading Time Taken Comments Blood Pressure 132/65 01/31/2024 10:33 AM EDT Pulse 92 01/31/2024 10:33 AM EDT Temperature - - Respiratory Rate - - Oxygen Saturation - - Inhaled Oxygen Concentration - - Weight 99.8 kg (220 lb) 01/31/2024 10:33 AM EDT Height 177.8 cm (5' 10) 01/31/2024 10:33 AM EDT Body Mass Index 31.57 01/31/2024 10:33 AM EDT documented in this encounter Progress Notes * Manoj Vinson MD - 01/31/2024 10:20 AM [...] and distal measurements were 6 cm bilaterally. [place] was placed on the right in the [...] to proceed with buried penis repair at [facility] on February 07. Informed consent was obtained [...] 11:40 AM EDT [place] [address] Manoj Vinson MD [facility] [place] [address] documented as of this encounter Procedures Procedure Name Priority Date/Time Associated Diagnosis Comments HEMOGRAM Routine 01/31/2024 11:41 AM EDT Acquired buried penis DIFFERENTIAL, AUTOMATED Routine 01/31/2024 11:41 AM EDT Acquired buried penis CBC (WITH DIFF) Routine 01/31/2024 11:41 AM EDT Acquired buried penis HEMOGLOBIN A1C Routine 01/31/2024 11:41 AM EDT Acquired buried penis BASIC METABOLIC PANEL Routine 01/31/2024 11:41 AM EDT Acquired buried penis EKG 12-LEAD Routine 01/31/2024 11:28 AM EDT Acquired buried penis documented in this encounter Results * Differential, Automated (01/31/2024 11:41 AM EDT) Neutrophil % 69.7 % [facility] Neutrophil Absolute 4.29 1.70 - 6.10 x10(3)/[facility] Lymph % 18.0 % [facility] Lymphocytes Abs 1.1 0.9 - 3.2 x10(3)/[facility] Monocyte % 8.3 % [facility] Monocyte Abs 0.5 0.3 - 0.9 x10(3)/[facility] Eos % 3.1 % [facility] Eosinophils Abs 0.2 0.0 - 0.4 x10(3)/[facility] Basophil % 0.3 % [facility] Baso Absolute 0.0 0.0 - 0.1 x10(3)/[facility] Immature Gran % 0.60 % [facility] Comment: Immature granulocytes(IG's)percentage and absolute count will include metamyelocytes, myelocytes, and promyelocytes. Blood smears from CBCs yielding IG's will be scanned manually for concordance. If this scan disagrees with the automated IG or if promyelocytes are noted, a manual differential will be performed. Immature Gran Absolute 0.04 0.00 - 0.04 x10(3)/[facility] Blood 01/31/2024 11:4 1 AM EDT 01/31/2024 11:52 AM EDT Narrative Resulting Agency Comment Spec In Lab Manoj Vinson MD HEMATOLOGY ORDERABLE S [facility] [place] [address] * (ABNORMAL) Hemogram (01/31/2024 11:41 AM EDT) White Blood Cell 6.2 4.0 - 9.5 x10(3)/mc L [facility] Red Blood Cell 4.67 4.58 - 5.54 x10(6)/mc L [facility] Hemoglobin 14.0 13.7 - 16.5 g/dL [facility] Hematocrit 39.7(L) 40.5 - 48.5 % [facility] Mean Cell Volume 85.0 82.9 - 93.1 fL [facility] Mean Cell Hemoglobin 30.0 27.5 - 32.1 pg [facility] Mean Cell Hemoglobin Concentration 35.3 32.0 - 35.7 g/dL [facility] Platelet 132(L) 145 - 357 x10(3)/mc L [facility] RDW Standard Deviation 41.1 36.0 - 45.0 fL [facility] RDW coefficient of variation 13.2 11.4 - 13.8 % [facility] Mean Platelet Volume 10.3 7.6 - 12.9 fL [facility] NRBC% auto 0.0 % [facility] NRBC Absolute 0.000 0.000 - 0.000 x10(3)/mc L [facility] Blood 01/31/2024 11:4 1 AM EDT 01/31/2024 11:52 AM EDT Narrative Resulting Agency Comment Spec In Lab Manoj Vinson MD HEMATOLOGY ORDERABLE S Performing Organization Address [facility] Co de Phone Number [facility] [place] [address] * (ABNORMAL) Hemoglobin A1c (01/31/2024 11:41 AM EDT) Hemoglobin A1c 8.2(H) 4.3 - 5.6 % [facility] [...] Mellitus, Diabetes Care 2013; 36: Suppl. 1, V71-78 Estimated Average Glucose 189 mg/dL [facility] Blood 01/31/2024 11:4 1 AM EDT 01/31/2024 11:52 AM EDT Narrative Resulting Agency Comment Spec In Lab Manoj Vinson MD CHEMISTRY ORDERABLES Performing Organization Address [facility] Co de Phone Number [facility] [place] [address] * (ABNORMAL) Basic Metabolic Panel (non-fasting) (01/31/2024 11:41 AM EDT) Glucose 289(H) 65 - 199 mg/dL [facility] Comment:Diabetes: >=200 mg/d L plus symptoms Blood Urea Nitrogen 13 10 - 20 mg/dL [facility] Creatinine 0.86 0.80 - 1.50 mg/dL [facility] Sodium 138 135 - 145 mmol/L [facility] Potassium 4.4 3.5 - 5.0 mmol/L [facility] Comment: Please note: ??Patients with WBC >100,000 may have falsely elevated Potassium levels. ??For accurate Potassium quantification in these patients send serum separator tube (gold top) for subsequent determinations. ??Contact the Clinical Chemistry Laboratory if there are any questions. Chloride 102 98 - 107 mmol/L [facility] Carbon Dioxide 25 22 - 31 mmol/L [facility] Anion Gap 11 5 - 15 mmol/L [facility] Calcium 9.5 8.5 - 10.5 mg/dL [facility] Est Glomerular Filtration Rate 95 >=60 mL/min/1. 73 m?? [facility] Comment: This patient's estimated GFR [...] In Lab Manoj Vinson MD CHEMISTRY ORDERABLES [facility] [place] [address] * EKG 12 Lead (01/31/2024 11:28 AM EDT) Ventricular rate 74 BPM MUSE SYSTEM Atrial Rate 74 BPM MUSE SYSTEM P-R Interval 178 ms MUSE SYSTEM QRS Duration 94 ms MUSE SYSTEM Q-T Interval 374 ms MUSE SYSTEM QTC Calculated (Bezet) 415 ms MUSE SYSTEM Calculated P [place] 62 degrees MUSE SYSTEM Calculated R [place] -7 degrees MUSE SYSTEM Calculated T [place] 40 degrees MUSE SYSTEM INTERPRETATION Normal sinus rhythm Normal ECG When compared with ECG of 29-JUL-2021 19:58, No significant change was found I personally reviewed the tracing and edited the fellows interpretation Confirmed by fellow MD Orlando, Tyson ([id number]) on 01/31/2024 3:44:24 PM Confirmed by MD Toma, Brendan ([id number]) on 01/31/2024 5:33:32 PM MUSE SYSTEM 01/31/2024 11:2 8 AM EDT 01/31/2024 5:33 PM EDT Manoj Vinson MD ECG ORDERABLES MUSE SYSTEM documented in this encounter Visit Diagnoses Diagnosis Acquired buried penis Other specified disorder of penis Failure of penile implant, subsequent encounter documented in this encounter Care Teams Supervisor International Reservations Relationship Specialty Start Date End Date Yung Horn MD [address] [place] [address] PCP - General 11/22/16 documented as of this encounter
--- OUTSIDE RECORDS SUMMARY | 2024-02-21 09:30 | XMS_ITS | Encounter Summary ---
Author Organization [facility]ly [facility] [place] [address] Care Team Providers Care Forest Pathology Associate Professor Name Role Phone Yung Horn MD Primary Care Provider [phone] Reason for Visit * Auth/Cert (Routine) Specialty Diagnoses / Procedures Referred By Contac t Referred To Contact Diagnoses Acquired buried penis Acquired buried penis Procedures PRO ADJ TISS TRANSFER HEAD, FAC, HAND 10.1-30 ADJ.TISSUE TRANSFER, REARRANGEMENT, 10.1 TO 30 SQ.CM, GENITALIA (WRVU 10.83) Manoj Cali MD [facility] [place] [address] [facility] Referral ID Status Reason Start Date Expiration Date Visits Re quested Visits Authorized [id number] 1 1 Encounter Details Date Type Department Care Team (Late st Contact Info) Description 02/08/2024 8:57 AM EDT Anesthesia Event Main OR at [address] [phone] Herb Stone CRNA [address] [place] [address] Tatiana Chaidez CRNA [address] [place] [address] Anesthesia Record Procedure Summary Procedure Name Responsible Anesthesiologist Anesthesia Start Time Anesthesia Stop Time ADJ.TISSUE TRANSFER, REARRANGEMENT, 10.1 TO 30 SQ.CM, GENITALIA (VU 10.83) (Perineum) Herb Stone Dorothy, RAKER BU[employer]ING WHEEL 02/08/24 0857 02/08/24 1055 Events Date Time Event Comment 02/08/2024 0849 0857 AN Verify 0857 Start 0857 An Start Data 0905 An Induction 0908 An Intubation 0910 Anesthesia Ready 0953 Quick Note BG 211 1045 Extubation/LMA Out 1051 an stop data 1054 Recovery or ICU Handoff Irma ent care was transferred to the destination unit staff after review of the patient's medical history, current anesthetic/surgical status and plan, according to the Provider Handoff Checklist. 1055 Stop Meds Name Total Midazolam 2 mg fentaNYL 100 mcg IV Lidocaine 100 mg Propofol 300 mg Propofol INF 43.42 mg Rocuronium 70 mg Glycopyrrolate 0.2 mg Ondansetron 4 mg Dexamethasone 4 mg ePHEDrine 35 mg PHENYLephrine 360 mcg ceFAZolin (Ancef) 2 g vial a ttach to sodium chloride 0.9% 100 mL Mini-Bag Plus 2 g PHENYLephrine INF 2,480 mcg Sugammadex 200 mg lactated ringers infusion 1,300 mL * Agents Name O2 * Blood No blood administrations on file. Lines, Drains, and Airways Type Details Placement Removal Incision 02/08/24; 0930; lowe r quadrant 02/08/24 0930 by David Elizondo RN Drain/Device Site 02/08/24; 1008; Righ t; lower; flank; other (see comments) (Bulb Suction); Dr cali; Sterile prep and drape, Barrier precautions, Sterile technique; Asleep 02/08/24 1008 by David Elizondo RN Drain/Device Site 02/08/24; 1009; Left ; lower; flank; (Bulb Suction); Dr Cali; Sterile prep and drape, Barrier precautions, Sterile technique; Asleep 02/08/24 1009 by David Elizondo RN PIV 02/08/24; 0800; jawu-tri-tgbyyl catheter system; 20 gauge; other (see comments) (left wriist); US Not Used; appears comfortable; 02/08/24; 1218 02/08/24 0800 by Ana Laura Elizondo RN 02/08/24 1218 by Ana Laura Elizondo RN ETT Mask Ventilation: Ad junct (2); ETT Type: Cuffed; ETT Size: 7 mm; Indirect: Video; Attempts: 1; Laryngoscopy Grade: 1; ETT Placement Verified By: Auscultation, Capnometry, Visual; Secured at Teeth: 22 cm; Inserted by: tylor; Removal Date: 02/08/24; Removal Time: 1045 02/08/24 0913 by Herb Stone CRNA 02/08/24 1045 by Herb Stone CRNA documented in this encounter Social History Tobacco [...] OR Notes * Anesthesia Postprocedure Evaluation - Herb Stone CRNA - 02/08/2024 11:32 AM EDT Department of Anesthesiology Post-procedure Note Patient: Yung Betancur Procedure Summary Date: 02/08/24 Room / Location: [facility] OR / [facility] MAIN OR Anesthesia Start: 856 Anesthesia Stop: 1054 Procedure: ADJ.TISSUE TRANSFER, REARRANGEMENT, 10.1 TO 30 SQ.CM, GENITALIA (WRVU 10.83) (Perineum) Diagnosis: Acquired buried penis (Acquired buried penis) Surgeons: Manoj Cali MD Responsible Provider: Herb Stone CRNA Anesthesia Type: general ASA Status: 3 All Anesthesia Providers: SEEMA Independent: Herb Stone CRNA Vitals Value Taken Time BP 119/61 02/08/24 1130 Temp 36.1 ??C (96.9 ??F) 02/08/24 1053 Pulse 86 02/08/24 1131 Resp 20 02/08/24 1131 SpO2 94 % 02/08/24 1131 Pain Level 4 02/08/24 1131 Vitals shown include unfiled device data. Patient Location: PACU/[facility] Level of Consciousness: Awake and Alert Pain Management: Satisfactory Analgesia PONV: None Cardiovascular Status: At Baseline Respiratory Status: At Baseline Postoperative Fluid Status: Intravascular EUvolemia Possible Anesthetic Complications: NONE apparent at time of evaluation Final Primary Anesthesia Type: General (The anesthetic type performed was the same as planned.) Comments: Please see PACU flowsheet for VS. Report and care to RN * Anesthesia Preprocedure Evaluation - Herb Stone CRNA - 01/31/2024 6:04 AM EDT Pre-Anesthesia Evaluation for: Yung Betancur a 68 y.o. male. Procedure(s): ADJ.TISSUE TRANSFER, REARRANGEMENT, 10.1 TO 30 SQ.CM, GENITALIA (WRVU 10.83) Patient Active Problem List Diagnosis Date Noted ??? 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 Acquired buried penis 07/25/2023 ??? Sleep apnea 10/06/2020 ??? Obesity 12/17/2018 ??? Syncope 11/21/2018 ??? Weight gain status post gastric bypass 09/19/2018 ??? Chest pain/JONAS of uncertain etiology 05/26/2017 ??? Peyronie's disease 02/18/2015 ??? Male erectile dysfunction 02/18/2015 No past medical history on file. Past Surgical History: Procedure Laterality Date ??? PRO COLONOSCOPY, REMV LESN, SNARE N/A 08/05/2015 COLONOSCOPY, POLYPECTOMY, REMOVAL LESION BY SNARE performed by Kwan Forte MD at [facility] ENDOSCOPY ??? PRO INSERT, INFLATABLE PENILE PROSTHESIS N/A 06/09/2015 PENILE PROSTHESIS, MULTI-COMPONENT performed by Ebenezer Patino III, MD at [facility] MAIN OR ??? PRO UPPER GI ENDOSCOPY, DIAGNOSTIC N/A 08/05/2015 EGD, UPPER GI ENDOSCOPY performed by Kwan Forte MD at [facility] ENDOSCOPY ??? PRO UPPER GI ENDOSCOPY, DIAGNOSTIC N/A 07/31/2017 EGD, UPPER GI ENDOSCOPY performed by Chevy Mackenzie MD at [facility] ENDOSCOPY Social History Tobacco Use ??? Smoking status: Former ??? Smokeless tobacco: Never Substance Use Topics ??? Alcohol use: Yes Alcohol/week: 12.0 standard drinks of alcohol Types: 12 Cans of beer per week Comment: beer once in a while Social History Substance and Sexual Activity Drug Use No Allergies Allergen Reactions ??? Adhesive Tape Rash ??? Bandages, Cohesive Rash ??? Atorvastatin Medications: MAR and/or home medications have been reviewed. Physical Exam: Preprocedure Vitals Current as of 01/31/24 0604 No BP, pulse, respiration, SpO2, or temperature recorded. Height: Weight: BMI: IBW: Airway Assessment: Mallampati: III TM distance: >3 FB Neck ROM: full Cardiovascular Assessment: Rhythm: regular Rate: normal system normal Pulmonary Assessment: breath sounds clear to auscultation pulmonary exam normal Dental Assessment: Misc Assessment: Last Filed Perioperative Cognitive Screening None Anesthesia Plan: ASA 3 general, with a(n) intravenous induction Preliminary note based on chart review: Yung presents for buried penis repair. His history is significant for: Neuro: cervical spinal stenosis, early onset dementia CV: HLD. ED visit for CP 07/30/2021 stress test and w/u for ischemia were all negative (EF 60%, no ischemia or scar). He had been at his cardiology visit for preop clearance and was sent to the ED in the setting of worse than normal JONAS & mid back pain. TTE 2020: Normal LV size & function, EF 63%, no WMA. Normal RV function, PASP = 22 (was elevated on prior TTE in 2019). Mild RA dilation. No HD significant valve disease. Moderate dilatation of the aortic root (4.3 cm) and mild dilatationof the ascending aorta (3.9 cm). Cardiology assessment & plan from that visit as follows: Pre-op cardiac examination: Chronic exertional dyspnea, mild chest pressure, and left arm numbness are stable since last visit in 10/2020. No signs of heart failure. His work up thus far has included cardiac catheterization with non-obstructive disease in mid and distal LAD, TTEs with normal LV/RV, pEF, no WMAs or valve disease, and with elevated PASP in the past but most recent with normal PASP, and stress echo which did not show evidence of ischemia. 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 Could consider beta bryan to assess whether it helps to improve symptoms if there is a cardiac component, but will hold off for now given history of lightheadedness and hypotension. Also recommended follow up with Pulmonology and considering a gradual exercise program to improve deconditioning. Given unremarkable cardiac work up thus far and no change in symptoms since last echo, I do not feel that any further work up is indicated at this time unless ED course today reveals a new cardiac diagnosis/problem. From the standpoint of surgery, he has no prohibitive CV condition. ED stress test& labs indicated no ischemia. Pulm: VIJAY. Followed by pulm at [facility] d/t JONAS. Has had PFTs done, results not available for review. GI: GERD (pantoprazole), HERR. : ED s/p penile prosthesis, BPH (tamulosin) Endo: BMI 30.99, DM2 (metformin, glipizide, Victoza, Trulicity, humalog) Psych: anxiety (venlafaxine) Social: ETOH abuse (in past) Chronic pain: (acetaminophen, gabapentin, diclofenac) Other: hearing loss Prior surgeries / anesthetics Left RCR (2022) Gastric bypass Right RCR (2015 & 2018) TKA (2017) [place] [place] MV w/adjunct, G2V w/MAC 4, cricoid pressure, intubated on 1st attempt. Allergies to adhesive & atorvastatin noted. Plan for GA w/multi-modal analgesia & anti-emetic therapy. DOS Addendum: Pt with recent ED visit r/t loose stools, jonas, and chest pressure thought to be related to Victoza.Counseled to d/c sq Victoza. CT imaging negative for PE per pt report. Symptoms have resolved sincediscontinuation of GLP-1. Pt denies dyspnea, chest pain, or chest heaviness this am, reports good functional status > 4 METs. No cardiology visits since 2021. Of note, BG 315 and pt reports not taking PM dose of Metformin or DOS dose. Surgeon aware, BG treated and closely monitored perioperatively. Gave 4u reg in POH, f/u FSBG 285- within known previous avg. Region - Other Informed Consent: Anesthetic plan and risks discussed with spouse and patient. Use of blood products discussed with patient who consented to blood products. Plan discussed with SEEMA. Anesthesia Screening documented in this encounter Plan of Treatment Upcoming Encounters Date Type Department Care Team (Late st Contact Info) Description 02/22/2024 11:40 AM EDT Office Visit Urology at [facility] [place] [phone] Manoj Cali MD [facility] [place] [address] documented as of this encounter Visit Diagnoses Not on filedocumented in this encounter Administered Medications Inactive Administered Medications - up to 3 most recent administrations Medication Order MAR Action Action Date Dose Rate Site ceFAZolin (Ancef) 2 g vial attach to sodium chloride 0.9% 100 mL Mini-Bag Plus 2 g, Intravenous, ONCE, 1 dose, On Kylee 02/08/24 at 0800, Administer over 30 Minutes, Redose every 3 hours if CrCl is greater than 20. Redose every 8 hours if CrCl is less than 20., Day of Surgery (Day of Procedure), Indication for (Active or Suspected): Prophylaxis New Bag 02/08/2024 9:10 AM EDT 2 g dexAMETHasone (Decadron) injection Intravenous, PRN, Starting on Kylee 02/08/24 at 0915, Until Kylee 02/08/24 at 1100, Anesthesia Intra-op, Routine Given 02/08/2024 9:15 AM EDT 4 mg ePHEDrine (50 mg/mL) injection Intravenous, PRN, Starting on Kylee 02/08/24 at 0936, Until Kylee 02/08/24 at 1100, Anesthesia Intra-op, Routine Given 02/08/2024 9:58 AM EDT 10 mg Given 02/08/2024 9:40 AM EDT 5 mg Given 02/08/2024 9:38 AM EDT 10 mg fentaNYL (pf) (50 mcg/mL) multi-dose injection Intravenous, PRN, Starting on Kylee 02/08/24 at 0905, Until Kylee 02/08/24 at 1100, Anesthesia Intra-op, Routine Given 02/08/2024 9:20 AM EDT 50 mcg Given 02/08/2024 9:05 AM EDT 50 mcg glycopyrrolate (Robinul) (0.2 mg/mL) injection Intravenous, PRN, Starting on Kylee 02/08/24 at 0938, Until Kylee 02/08/24 at 1100, Anesthesia Intra-op, Routine Given 02/08/2024 9:38 AM EDT 0.2 mg lactated ringers infusion 1,000 mL, Intravenous, CONTINUOUS, Starting on Kylee 02/08/24 at 0800, Until Kylee 02/08/24 at 1210, Day of Surgery (Day of Procedure) New Bag 02/08/2024 10:10 AM EDT New Bag 02/08/2024 8:57 AM EDT lidocaine (pf) (Xylocaine) (20 mg/mL) 2% injection syringe Intravenous, PRN, Starting on Kylee 02/08/24 at 0905, Until Kylee 02/08/24 at 1100, Anesthesia Intra-op, Routine Given 02/08/2024 9:05 AM EDT 100 mg midazolam (pf) (Versed) (1 mg/mL) injection Intravenous, PRN, Starting on Kylee 02/08/24 at 0857, Until Kylee 02/08/24 at 1100, Anesthesia Intra-op, Routine Given 02/08/2024 8:57 AM EDT 2 mg ondansetron (pf) (Zofran) (2 mg/mL) injection Intravenous, PRN, Starting on Kylee 02/08/24 at 1027, Until Kylee 02/08/24 at 1100, Anesthesia Intra-op, Routine Given 02/08/2024 10:27 AM EDT 4 mg PHENYLephrine (Adam-Synephrine) (10 mg/mL) injection Intravenous, PRN, Starting on Kylee 02/08/24 at 0940, Until Kylee 02/08/24 at 1100, Anesthesia Intra-op, Routine Given 02/08/2024 9:58 AM EDT 100 mcg Given 02/08/2024 9:47 AM EDT 100 mcg Given 02/08/2024 9:42 AM EDT 80 mcg PHENYLephrine (Adam-Synephrine) (80 mcg/mL) in sodium chloride 0.9% 250 mL infusion (for Anesthesia) Intravenous, CONTINUOUS PRN, Starting on Kylee 02/08/24 at 0948, Until Kylee 02/08/24 at 1100, Anesthesia Intra-op Rate/Dose Change 02/08/2024 10:40 AM EDT 25 mcg/min 18.75 mL/hr Rate/Dose Change 02/08/2024 9:58 AM EDT 50 mcg/min 37.5 mL /hr Rate/Dose Change 02/08/2024 9:54 AM EDT 40 mcg/min 30 mL/h r propofoL (Diprivan) (10 mg/mL) infusion Intravenous, CONTINUOUS PRN, Starting on Kylee 02/08/24 at 0922, Until Kylee 02/08/24 at 1100, Anesthesia Intra-op, Routine New Bag 02/08/2024 9:22 AM EDT 20 mcg/kg/min 10.02 mL/hr propofoL (Diprivan) 10 mg/mL bolus injection (Anesthesia) Intravenous, PRN, Starting on Kylee 02/08/24 at 0905, Until Kylee 02/08/24 at 1100, Anesthesia Intra-op Given 02/08/2024 10:09 AM EDT 50 mg Given 02/08/2024 10:08 AM EDT 50 mg Given 02/08/2024 9:05 AM EDT 200 mg rocuronium (Zemuron) 10 mg/mL injection Intravenous, PRN, Starting on Kylee 02/08/24 at 0907, Until Kylee 02/08/24 at 1100, Anesthesia Intra-op, Routine Given 02/08/2024 9:49 AM EDT 20 mg Given 02/08/2024 9:07 AM EDT 50 mg sugammadex (Bridion) 100 mg/mL injection Intravenous, PRN, Starting on Kylee 02/08/24 at 1041, Until Kylee 02/08/24 at 1100, Anesthesia Intra-op, Routine Given 02/08/2024 10:41 AM EDT 200 mg documented in this encounter Care Teams Forest Pathology Associate Professor Relationship Specialty Start Date End Date Yung Horn MD [address] [place] [phone] PCP - General 11/22/16 documented as of this encounter
--- OUTSIDE RECORDS SUMMARY | 2024-02-21 09:30 | XMS_ITS | Encounter Summary ---
Author Organization [facility] [place] [address] Care Team Providers Care Wash And Greaser Name Role Phone Yung Horn MD Primary Care Provider [phone] Reason for Visit * Reason Comments Medication Refill Encounter Details Date Type Department Care Team (Late st Contact Info) Description 10/08/2021 Ref[place] [phone] Tatiana Call APRN [facility] [place] [address] HERR (nonalcoholic steatohepatitis) Social History Tobacco Use [...] 11:40 AM EDT [place] [phone] Manoj Vinson MD [facility] [place] [address] documented as of this encounter Visit Diagnoses Diagnosis HERR (nonalcoholic steatohepatitis) Other chronic nonalcoholic liver disease documented in this encounter Care Teams Wash And Greaser Relationship Specialty Start Date End Date Yung Horn MD [address] [place] [phone] PCP - General 11/22/16 documented as of this encounter
--- OUTSIDE RECORDS SUMMARY | 2024-02-21 09:30 | XMS_ITS | Encounter Summary ---
[place] [address] Care Team Providers Care Manager Of Purchasing Name Role Phone Yung Horn MD Primary [...] 11:40 AM EDT Office [place] [address] Manoj Vinson MD [facility] [place] [address] documented as of this encounter Visit Diagnoses Not on filedocumented in this encounter Care Teams Manager Of Purchasing Relationship Specialty Start Date End Date Yung Horn MD [address] [place] [address] [place] [phone] PCP - General 11/22/16 documented as of this encounter
--- OUTSIDE RECORDS SUMMARY | 2024-02-21 09:30 | XMS_ITS | Encounter Summary ---
[place] [address] Care Team Providers Care Php Mysql Web Developer Name Role Phone Yung Horn MD Primary Care Provider [phone] Encounter Details Date Type Department Care Team (Late st Contact Info) Description 01/22/2024 [place] [phone] Huong Apple Social History Tobacco Use Types [...] * Telephone Encounter - Huong Apple - 01/22/2024 12:16 PM EDT LMOM to reschedule pre-op with to LOLA- pre-op needs to be moved sooner and cannot be the date prior to surgery documented in this encounter Plan of Treatment Upcoming Encounters Date Type Department Care Team (Late st Contact Info) Description 02/22/2024 11:40 AM EDT [place] [phone] Manoj Vinson MD [facility] [place] [address] documented as of this encounter Visit Diagnoses Not on filedocumented in this encounter Care Teams Php Mysql Web Developer Relationship Specialty Start Date End Date Yung Horn MD [facility] [place] [address] PCP - General 11/22/16 documented as of this encounter
--- OUTSIDE RECORDS SUMMARY | 2024-02-21 09:31 | XMS_ITS | Encounter Summary ---
Author Organization [facility] [place] [address] Care Team Providers Care Junior Buyer Name Role Phone Yung Horn MD Primary Care Provider [phone] Reason for Visit * Reason Comments Medication Refill Encounter Details Date Type Department Care Team (Late st Contact Info) Description 03/05/2021 Ref[place] [phone] Korey Avalos PA [address] [place] [phone] HERR (nonalcoholic steatohepatitis) Social History Tobacco Use [...] EDT [place] [phone] Manoj Vinson MD [facility] [address] documented as of this encounter Visit Diagnoses Diagnosis HERR (nonalcoholic steatohepatitis) Other chronic nonalcoholic liver disease documented in this encounter Care Teams Junior Buyer Relationship Specialty Start Date End Date Yung Horn MD [address] [place] [phone] PCP - General 11/22/16 documented as of this encounter
--- OUTSIDE RECORDS SUMMARY | 2024-02-21 09:31 | XMS_ITS | Encounter Summary ---
[place] [address] Care Team Providers Care Brick Molder Hand Name Role Phone Elizabeth Horn MD Primary Care Provider [phone] Reason for Referral * Diagnostic Test (Routine) - Closed Specialty Diagnoses / Procedures Referred By Contac t Referred To Contact Cardiology Diagnoses LINTON (dyspnea on exertion) Procedures Echocardiogram Transthoracic([facility] or ON LICENSE OF [facility]) Elizabeth Olsen MD [facility] [place] [address] [facility] [place] [address] Referral ID Status Reason Start Date Expiration Date V isits Requested Visits Authorized [id number] Closed Specialty Service Requested 10/08/2020 11/07/2020 1 1 Reason for Visit * Consultation (Routine) - Specialty Diagnoses / Procedures Referred By Contac t Referred To Contact Cardiology Diagnoses Other forms of dyspnea LINTON Elizabeth Horn MD [address] [place] [address] [place] [address] [facility] [address] [place] [phone] Referral ID Status Reason Start Date Expiration Date V isits Requested Visits Authorized [id number] Consult, Test & Treat Connection [facility] PCP Updated and/or Approved 10/01/2020 04/03/2021 6 6 Encounter Details Date Type Department Care Team (Late st Contact Info) Description 10/08/2020 9:00 AM EDT Office Visit Cardiology at [address] [place] [address] Elizabeth Olsen MD [facility] [place] [address] Chest pain, unspecified type; LINTON (dyspnea on [...] Take 81 mg by mouth Daily. ??? [employer] ULTRA2 Kit TEST BLOOD GLUCOSE WITH ALL [...] meals). 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 (Age): 1955(64y) Med Rec#: ? [id number] ?Sex: ?M ? Site Loc: ? [facility] ?Ht / Wt: ??178(cm)/113(kg) Pt. Loc: ?Echo Lab ?BSA: ?2.29 Study Date: ?? 10/08/2020 ?Pt. Type: Outpatient Tape: ? Referring: PRETTY Reading: Scotty Deng ([id number]) Processing Supervisor: Janice Eden Election Clerk: Korey Hill [facility] Diagnosis: *Dyspnea, unspecified (R06.00) BP: ? 100/62 [...] Vmax ?0.48 ? m/sec ? MV deceleration [id number] ?msec ? MV A-wave Vmax ?0.62 ? [...] ? Mid-Inferior ?Normal ? Mid-Inferoseptal ?Normal ? [place]-Septal ? Normal ? [place]-Anterior ? Normal ? [place]-Lateral ?Normal ? [place]-Inferior ? Normal ? [place]-Tip ?Normal ? This report has been electronically signed by: Scotty Deng MD ? 10/08/2020 11:30:38 Images reviewed and interpretation verified [facility] Cardiac Ultrasound Laboratory Procedure Note Scotty Deng MD - 10/08/2020 Procedure: Transthoracic Echocardiogram Patient: TAYLOR SUAREZ(Age): 1955(64y) Med Rec#: [id number] Sex: M Site Loc: [facility] Ht / Wt: 178(cm)/113(kg) Pt. Loc: Echo Lab BSA: 2.29 Study Date: 10/08/2020 Pt. Type: Outpatient Tape: Referring: JACOBYELIENEENA Reading: Scotty Deng ([id number]) Processing Supervisor: Janice Eden Election Clerk: Korey Hill [facility] Diagnosis: *Dyspnea, unspecified (R06.00) BP: 100/62 SUMMARY: [...] MV E-wave Vmax 0.48 m/sec MV deceleration [id number] msec MV A-wave Vmax 0.62 m/sec MV [...] Normal Mid-Posterolateral Normal Mid-Inferior Normal Mid-Inferoseptal Normal [place]-Septal Normal [place]-Anterior Normal [place]-Lateral Normal [place]-Inferior Normal [place]-Tip Normal This report has been electronically signed by: Scotty Deng MD 10/08/2020 11:30:38 Images reviewed and interpretation verified [facility] Cardiac Ultrasound Laboratory Elizabeth Olsen MD ECHO ORDERABLES * EKG 12 Lead (10/08/2020 9:20 AM EDT) Ventricular rate 85 BPM MUSE SYSTEM Atrial Rate 85 BPM MUSE SYSTEM P-R Interval 156 ms MUSE SYSTEM QRS Duration 90 ms MUSE SYSTEM Q-T Interval 360 ms MUSE SYSTEM QTC Calculated (Bezet) 428 ms MUSE SYSTEM Calculated P [place] 57 degrees MUSE SYSTEM Calculated R [place] 4 degrees MUSE SYSTEM Calculated T [place] 35 degrees MUSE SYSTEM INTERPRETATION Sinus rhythm [...] on exertion) Other dyspnea and respiratory abnormality documented in this encounter Care Teams Brick Molder Hand Relationship Specialty Start Date End Date Elizabeth Horn MD [facility] [place] [address] PCP - General 11/22/16 documented as of this encounter
--- OUTSIDE RECORDS SUMMARY | 2024-02-21 09:31 | XMS_ITS | Encounter Summary ---
Author Organization [facility] [place] [address] Care Team Providers Care Manager Company Name Role Phone Yung Horn MD Primary Care Provider [phone] Encounter Details Date Type Department Care Team (Late st Contact Info) Description 07/26/2021 Orders Only Cardiology at [address] [phone] Zoya Finney, OPERATIONS OFFICER TRUST DEPARTMENT [facility] [place] [address] Chest pain, unspecified type (Primary Dx) Social [...] 11:40 AM EDT [place] [phone] Manoj Vinson MD [facility] [place] [address] documented as of this encounter Visit Diagnoses Diagnosis Chest pain, unspecified type- Primary documented in this encounter Care Teams Manager Company Relationship Specialty Start Date End Date Yung Horn MD [address] [place] [address] PCP - General 11/22/16 documented as of this encounter
--- OUTSIDE RECORDS SUMMARY | 2024-02-21 09:31 | XMS_ITS | Encounter Summary ---
Author Organization [facility] [place] [address] Care Team Providers Care Reinforcing Rod Layer Name Role Phone Yung Horn MD Primary Care Provider [phone] Encounter Details Date Type Department Care Team (Late st Contact Info) Description 12/17/2018 1:00 PM EDT Office [place] [address] Robert Ramos MD [facility] [place] [address] Obesity, unspecified classification, unspecified obesity type, unspecified [...] is scheduled to see Dr. Wagner at [facility]. He agreed to increase the level [...] suppression. 20 of 25 minutes spent indirect [id number] counseling and the rest in taking history. PLAN: Increase pantoprazole to 40 mg po bid See Dr. Wagner at [facility] Call after January 01 for follow up Robert Ramos MD Section of Gastroenterology and Hepatology documented in this encounter Plan of Treatment Upcoming Encounters Date Type Department Care Team (Late st Contact Info) Description 02/22/2024 11:40 AM EDT Office [place] [address] Manoj Vnison MD [facility] [place] [address] documented as of this encounter Visit Diagnoses Diagnosis Obesity, unspecified classification, unspecified obesity type, unspecified whether serious comorbidity present documented in this encounter Care Teams Reinforcing Rod Layer Relationship Specialty Start Date End Date Yung Horn MD [facility] [place] [address] PCP - General 11/22/16 documented as of this encounter
--- OUTSIDE RECORDS SUMMARY | 2024-02-21 09:31 | XMS_ITS | Encounter Summary ---
Author Organization [facility] Dorothy [facility] [place] [address] Care Team Providers Care Watch Inspector Final Movement Name Role Phone Yung Horn MD Primary Care Provider [phone] Encounter Details Date Type Department Care Team (Late st Contact Info) Description 09/17/2018 1:00 PM EDT Office [place] [address] Kamala Veloz MD [facility] [place] [address] Weight gain status post gastric bypass Social [...] appointment and spent approximately 15 minutes in [id number] discussion with the patient to talk about [...] 11:40 AM EDT [place] [address] Manoj Vinson MD [facility] [place] [address] documented as of this encounter Visit Diagnoses Diagnosis Weight gain status post gastric bypass documented in this encounter Care Teams Watch Inspector Final Movement Relationship Specialty Start Date End Date Yung Horn MD [address] [place] [address] PCP - General 11/22/16 documented as of this encounter
--- OUTSIDE RECORDS SUMMARY | 2024-02-21 09:31 | XMS_ITS | Encounter Summary ---
Author Organization [facility] [place] [address] Care Team Providers Care Hooker Up Name Role Phone Yung Horn MD Primary Care Provider [phone] Reason for Visit * Reason Comments Medication Refill Encounter Details Date Type Department Care Team (Late st Contact Info) Description 05/03/2021 [place] [phone] Tatiana Call APRN [facility] [place] [address] HERR (nonalcoholic steatohepatitis) Social History Tobacco Use [...] 11:40 AM EDT [place] [phone] Manoj Vinson MD [facility] [place] [address] documented as of this encounter Visit Diagnoses Diagnosis HERR (nonalcoholic steatohepatitis) Other chronic nonalcoholic liver disease documented in this encounter Care Teams Hooker Up Relationship Specialty Start Date End Date Yung Horn MD [address] [place] [address] PCP - General 11/22/16 documented as of this encounter
--- OUTSIDE RECORDS SUMMARY | 2024-02-21 09:31 | XMS_ITS | Encounter Summary ---
Author Organization [facility] [place] [address] Care Team Providers Care Swage Tender Name Role Phone Yung Horn MD Primary Care Provider [phone] Encounter Details Date Type Department Care Team (Late st Contact Info) Description 12/17/2018 10:00 AM EDT Interpretation Only Cardiology at [address] [phone] Neymar Franco Jr., MD [address] [place] [address] Chest pain, unspecified type Social History Tobacco [...] 11:40 AM EDT Office Visit Urology at [facility] [place] [address] Manoj Vinson MD [facility] [place] [address] documented as of this encounter Procedures Procedure Name Priority Date/Time Associated Diagnosis Comments ECG SCAN 12/12/2018 12:00 AM EDT documented in this encounter Results * SCAN DOC: ECG (12/12/2018 12:00 AM EDT) Narrative 12/12/2018 12:00 AM EDT Ordered by an unspecified provider. Scanning Provider MEDIA MGR SCAN EXT O RDR/RSLT documented in this encounter Visit Diagnoses Diagnosis Chest pain, unspecified type documented in this encounter Care Teams Swage Tender Relationship Specialty Start Date End Date Yung Horn MD [address] [place] [address] PCP - General 11/22/16 documented as of this encounter
--- OUTSIDE RECORDS SUMMARY | 2024-02-21 09:31 | XMS_ITS | Encounter Summary ---
Author Organization [facility] [place] [address] Care Team Providers Care Filter Worker Name Role Phone Yung Horn MD Primary Care Provider [phone] Encounter Details Date Type Department Care Team (Latest Contact Info) Description 07/16/2020 1:00 PM EST Procedure visit [place] [address] [facility] [place] [address] HERR (nonalcoholic steatohepatitis); Alcoholic liver disease Social [...] Diagnose(s): HERR (nonalcoholic steatohepatitis); Alcoholic liver disease [facility] Liver Fibrosis Assessment Report Indication: Alcoholic steatohepatitis/ HERR Performed by: TATIANA MUNOZ APRN Procedure: Vibration Controlled Transient Elastography (VCTE) or Fibroscan [place] Protocol: Patient's identity, procedure and site were [...] 11:40 AM EDT Office [place] [address] [facility] [place] [address] documented as of this encounter Procedures Procedure Name Priority Date/Time Associated Diagnosis Comments [id number] Routine 07/16/2020 1:00 PM EST HERR (nonalcoholic steatohepatitis) Alcoholic liver disease documented in this encounter Results * [id number] (07/16/2020 1:00 PM EST) Narrative Tatiana Munoz APRN - 07/16/2020 1:00 PM EST Tatiana Munoz APRN ? 07/16/2020 ??2:18 PM [facility] Liver Fibrosis Assessment Report Indication: ?? Alcoholic steatohepatitis/ HERR ?? Performed by: ??TATIANA MUNOZ APRN Procedure: Vibration Controlled Transient Elastography (VCTE) or Fibroscan [place] Protocol: Patient's identity, procedure and site were [...] Alcoholic liver disease Alcoholic liver damage, unspecified documented in this encounter Care Teams Filter Worker Relationship Specialty Start Date End Date Yung Horn MD [address] [place] [address] PCP - General 11/22/16 documented as of this encounter
--- OUTSIDE RECORDS SUMMARY | 2024-02-21 09:31 | XMS_ITS | Encounter Summary ---
[place] [address] Care Team Providers Care Avionics Safety Inspector Name Role Phone Yung Horn MD Primary Care Provider [phone] Reason for Visit * Reason Onset Date Comments Appointment 09/17/2018 Encounter Details Date Type Department Care Team (Late st Contact Info) Description 09/17/2018 Telephone [place] [phone] Sofia Narayanan Appointment Social History Tobacco Use [...] to schedule. He can be reached at [phone]. Appt Needed and Reason: yes, possible pharmaco therapy Provider: Dr. Wagner documented in this encounter Plan of Treatment Upcoming Encounters Date Type Department Care Team (Late st Contact Info) Description 02/22/2024 11:40 AM EDT Office [place] [address] Manoj Vinson MD [facility] [place] [address] documented as of this encounter Visit Diagnoses Not on filedocumented in this encounter Care Teams Avionics Safety Inspector Relationship Specialty Start Date End Date Yung Horn MD [address] [place] [address] PCP - General 11/22/16 documented as of this encounter
--- OUTSIDE RECORDS SUMMARY | 2024-02-21 09:31 | XMS_ITS | Encounter Summary ---
Author Organization [facility] [place] [address] Care Team Providers Care Supervisor Laundry Name Role Phone Yung Horn MD Primary Care Provider [phone] Encounter Details Date Type Department Care Team (Late st Contact Info) Description 02/23/2021 Telephone [place] [phone] Tatiana Munoz SCANNING MANAGER [facility] [place] [address] Social History Tobacco Use Types Packs/Day Years [...] 11:40 AM EDT [place] [address] Manoj Vinson MD [facility] [place] [address] documented as of this encounter Visit Diagnoses Not on filedocumented in this encounter Care Teams Supervisor Laundry Relationship Specialty Start Date End Date Yung Horn MD [address] [place] [address] PCP - General 11/22/16 documented as of this encounter
--- OUTSIDE RECORDS SUMMARY | 2024-02-21 09:31 | XMS_ITS | Encounter Summary ---
[place] [address] Care Team Providers Care Oral Surgery Technician Name Role Phone Yung Horn MD Primary Care Provider [phone] Reason for Referral * Diagnostic Test (Routine) - Closed Specialty Diagnoses / Procedures Referred By Contac t Referred To Contact Cardiology Diagnoses LINTON (dyspnea on exertion) Procedures Echocardiogram Transthoracic([facility] or [facility]) Yung Olsen MD [facility] [place] [address] [facility] [place] [address] Referral ID Status Reason Start Date Expiration Date V isits Requested Visits Authorized [id number] Closed Specialty Service Requested 10/08/2020 11/07/2020 1 1 Reason for Visit * Diagnostic Test (Routine) - Closed Specialty Diagnoses / Procedures Referred By Contac t Referred To Contact Cardiology Diagnoses [place] (dyspnea on exertion) Procedures Echocardiogram Transthoracic([facility] or [facility]) Yung Olsen MD [facility] [place] [address] [facility] [place] [address] Referral ID Status Reason Start Date Expiration Date V isits Requested Visits Authorized [id number] Closed Specialty Service Requested 10/08/2020 11/07/2020 1 1 Encounter Details Date Type Department Care Team (Latest Contact Info) Description 10/08/2020 10:00 AM EDT - 10/08/2020 11:59 PM EDT Hospital Encounter Non-Invasive Cardiology Lab [facility] [place] [address] Yung Olsen MD [facility] [place] [address] [place] (dyspnea on exertion) Discharge Disposition: Home [...] daily (with meals). One tablet per day lisinopriL (Zestril) 20 mg tablet Take 1 tab by mouth daily for blood pressure 03/13/2020 02/01/2024 albuteroL (ProAir HFA) 90 mcg/actuation HFA Aerosol Inhaler Every 4 hours. 09/18/2020 02/01/2024 lisinopriL (Zestril) 20 mg Tablet Take by [...] Take 81 mg by mouth Daily. 07/29/2021 DirectLawUCH ULTRA2 Kit TEST BLOOD GLUCOSE WITH ALL MEALS. DX: E11.9 0 04/05/2018 07/29/2021 glipiZIDE (GLUCOTROL) 5 mg Tablet 10 mg 0 03/31/2017 02/01/2024 ferrous sulfate 324 mg (65 mg iron) Tablet, Delayed Release (E.C.)Indications:ir on deficiency anemia Take 324 mg by mouth. Indications: Iron Deficiency Anemia 02/01/2024 multivitamin (THERAGRAN) Tablet Take 1 tablet by mouth daily. 07/29/2021 cholecalciferol, Vitamin D3, 2,000 unit TabletIndications:vi tamin D deficiency Take 1 tablet by mouth. Indications: Vitamin D Deficiency 07/29/2021 documented as of this encounter Plan of Treatment Upcoming Encounters Date Type Department Care Team (Late st Contact Info) Description 02/22/2024 11:40 AM EDT Office [place] [address] Manoj Vinson MD [facility] [place] [address] documented as of this encounter Procedures Procedure Name Priority Date/Time Associated Diagnosis Comments ECHO COMPLETE W CONTRAST Routine 10/08/2020 11:12 AM EDT [place] (dyspnea on exertion) documented in this encounter Results * ECHO COMPLETE W CONTRAST (10/08/2020 11:12 AM EDT) Anatomical Region Laterality Modality Other 10/08/2020 Narrative 10/08/2020 11:31 AM EDT Procedure: ?Transthoracic Echocardiogram Patient: ?TAYLOR JOHNSON ? (Age): 1955(64y) Med Rec#: ? [id number] ?Sex: ?M ? Site Loc: ? [facility] ?Ht / Wt: ??178(cm)/113(kg) Pt. Loc: ?Echo Lab ?BSA: ?2.29 Study Date: ?? 10/08/2020 ?Pt. Type: Outpatient Tape: ? Referring: PRETTY Reading: Scotty Deng ([id number]) Bacon Slicer: Janice Eden Loom Winder Tender: Korey Hill [facility] Diagnosis: *Dyspnea, unspecified (R06.00) BP: ? 100/62 [...] Vmax ?0.48 ? m/sec ? MV deceleration [id number] ?msec ? MV A-wave Vmax ?0.62 ? [...] ? Mid-Inferior ?Normal ? Mid-Inferoseptal ?Normal ? [place]-Septal ? Normal ? [place]-Anterior ? Normal ? [place]-Lateral ?Normal ? [place]-Inferior ? Normal ? [place]-Tip ?Normal ? This report has been electronically signed by: Scotty Deng MD ? 10/08/2020 11:30:38 Images reviewed and interpretation verified [facility] Cardiac Ultrasound Laboratory Procedure Note Scotty Deng MD - 10/08/2020 Procedure: Transthoracic Echocardiogram Patient: TAYLOR SUAREZ(Age): 1955(64y) Med Rec#: [id number] Sex: M Site Loc: [facility] Ht / Wt: 178(cm)/113(kg) Pt. Loc: Echo Lab BSA: 2.29 Study Date: 10/08/2020 Pt. Type: Outpatient Tape: Referring: PRETTY Reading: Scotty Deng ([id number]) Bacon Slicer: Janice Eden Loom Winder Tender: Korey Hill [facility] Diagnosis: *Dyspnea, unspecified (R06.00) BP: 100/62 SUMMARY: [...] MV E-wave Vmax 0.48 m/sec MV deceleration [id number] msec MV A-wave Vmax 0.62 m/sec MV [...] Normal Mid-Posterolateral Normal Mid-Inferior Normal Mid-Inferoseptal Normal [place]-Septal Normal [place]-Anterior Normal [place]-Lateral Normal [place]-Inferior Normal [place]-Tip Normal This report has been electronically signed by: Scotty Deng MD 10/08/2020 11:30:38 Images reviewed and interpretation verified [facility] Cardiac Ultrasound Laboratory Yung Olsen MD ECHO ORDERABLES documented in this encounter Visit Diagnoses Diagnosis L[place]ON (dyspnea on exertion) Other dyspnea and respiratory abnormality documented in this encounter Administered Medications Inactive [...] mLs documented in this encounter Care Teams Oral Surgery Technician Relationship Specialty Start Date End Date Yung Horn MD [address] [place] [address] PCP - General 11/22/16 documented as of this encounter
--- OUTSIDE RECORDS SUMMARY | 2024-02-21 09:31 | XMS_ITS | Encounter Summary ---
Author Organization [facility] [place] [address] Care Team Providers Care Imaging Tech Name Role Phone Yung Horn MD Primary Care Provider [phone] Encounter Details Date Type Department Care Team (Late st Contact Info) Description 10/29/2018 2:00 PM EDT Interpretation Only Cardiology at [address] [phone] Neymar Franco Jr., MD [address] [place] [address] Syncope, unspecified syncope type Social History Tobacco [...] AM EDT Office Visit Urology at [facility] [place] [address] Manoj Vinson MD [facility] [place] [address] documented as of this encounter Procedures Procedure Name Priority Date/Time Associated Diagnosis Comments ECG SCAN 10/25/2018 12:00 AM EDT documented in this encounter Results * SCAN DOC: ECG (10/25/2018 12:00 AM EDT) Narrative 10/25/2018 12:00 AM EDT Ordered by an unspecified provider. Scanning Provider MEDIA MGR SCAN EXT O RDR/RSLT documented in this encounter Visit Diagnoses Diagnosis Syncope, unspecified syncope type documented in this encounter Care Teams Imaging Tech Relationship Specialty Start Date End Date Yung Horn MD [address] [place] [address] PCP - General 11/22/16 documented as of this encounter
--- OUTSIDE RECORDS SUMMARY | 2024-02-21 09:31 | XMS_ITS | Encounter Summary ---
Author Organization [facility] Dorothy [facility] [place] [address] Care Team Providers Care Bedspring Assembler Name Role Phone Yung Horn MD Primary Care Provider [phone] Encounter Details Date Type Department Care Team (Late st Contact Info) Description 08/03/2017 4:00 PM EST Tech [place] [address] Arabella Sears MD [facility] [place] [address] Chest pain, unspecified type Social History Tobacco [...] ESOPHAGEAL MANOMETRY Yung Urrutiaalban [address] [facility] [address] : 1955 STUDY DATE: 07/31/2017 PROVIDER: Arabella Sears MD ([id number]) INDICATION Chest pain METHODS Stationary esophageal manometry [...] measured. Water swallows were provided after a 9-jc-1-minute accommodation period to assess LES function andfunction [...] esophageal clearance. *Measurements and diagnostic criteria per [place] 3.0 Classification. These findings assume that mechanical obstruction has been ruled out. Arabella Sears MD Section of Gastroenterology and Hepatology [facility] [place] [address] V: [phone] F: [phone] CC/EC: PCP documented in this encounter Plan of Treatment Upcoming Encounters Date Type Department Care Team (Late st Contact Info) Description 02/22/2024 11:40 AM EDT [place] [address] Manoj Vinson MD [facility] [place] [place] [address] documented as of this encounter Visit Diagnoses Diagnosis Chest pain, unspecified type documented in this encounter Care Teams Bedspring Assembler Relationship Specialty Start Date End Date Yung Horn MD [address] [place] [address] PCP - General 11/22/16 documented as of this encounter
--- OUTSIDE RECORDS SUMMARY | 2024-02-21 09:31 | XMS_ITS | Encounter Summary ---
Author Organization [facility] [place] [address] Care Team Providers Care Ladle Patcher Name Role Phone Yung Horn MD Primary Care Provider [phone] Reason for Visit * Reason Comments Follow-up Encounter Details Date Type Department Care Team (Late st Contact Info) Description 12/17/2018 1:00 PM EDT Office Visit [place] [address] Kamala Veloz MD [facility] [place] [address] Weight gain status post gastric bypass Social [...] 11:40 AM EDT Office [place] [address] Manoj Vinson MD [facility] [place] [address] documented as of this encounter Visit Diagnoses Diagnosis Weight gain status post gastric bypass documented in this encounter Care Teams Ladle Patcher Relationship Specialty Start Date End Date Yung Horn MD [facility] [place] [address] [place] [address] PCP - General 11/22/16 documented as of this encounter
--- OUTSIDE RECORDS SUMMARY | 2024-02-21 09:31 | XMS_ITS | Encounter Summary ---
Author Organization [facility] Dorothy [facility] [place] [address] Care Team Providers Care Dump Grader Name Role Phone Yung Horn MD Primary Care Provider [phone] Encounter Details Date Type Department Care Team (Late st Contact Info) Description 08/30/2018 Telephone [place] [address] Reji Aaron RN Social History Tobacco Use [...] - 08/30/2018 2:18 PM EST Paged by financial secretary, Kaylin, with patient and on the line, they are waiting for a response from Dr. Ramos with the next step in the plan. Forwarding this message to Dr. Ramos via EDH and email. documented in this encounter Plan of Treatment Upcoming Encounters Date Type Department Care Team (Late st Contact Info) Description 02/22/2024 11:40 AM EDT [place] [address] Manoj Vinson MD [facility] [place] [address] documented as of this encounter Visit Diagnoses Not on filedocumented in this encounter Care Teams Dump Grader Relationship Specialty Start Date End Date Yung Horn MD [address] [place] [address] PCP - General 11/22/16 documented as of this encounter
--- OUTSIDE RECORDS SUMMARY | 2024-02-21 09:31 | XMS_ITS | Encounter Summary ---
[place] [address] Care Team Providers Care Communication Studies Professor Name Role Phone Yung Horn MD Primary Care Provider [phone] Encounter Details Date Type Department Care Team (Late st Contact Info) Description 01/17/2020 Telephone Cardiology at [address] [phone] [facility] [place] [address] Social History Tobacco Use Types Packs/Day Years [...] AM EDT Office [place] [address] [facility] [place] [address] documented as of this encounter Visit Diagnoses Not on filedocumented in this encounter Care Teams Communication Studies Professor Relationship Specialty Start Date End Date Yung Horn MD [address] [place] [address] [place] [address] PCP - General 11/22/16 documented as of this encounter
--- OUTSIDE RECORDS SUMMARY | 2024-02-21 09:31 | XMS_ITS | Encounter Summary ---
Author Organization [facility] [place] [address] Care Team Providers Care Beam Machine Operator Name Role Phone Yung Horn MD Primary Care Provider [phone] Reason for Visit * Reason Comments Medication Refill Encounter Details Date Type Department Care Team (Late st Contact Info) Description 12/06/2020 [place] [phone] Robert Ramos MD [facility] [place] [address] HERR (nonalcoholic steatohepatitis) Social History Tobacco Use [...] 11:40 AM EDT [place] [phone] Manoj Vinson MD [facility] [place] [address] documented as of this encounter Visit Diagnoses Diagnosis HERR (nonalcoholic steatohepatitis) Other chronic nonalcoholic liver disease documented in this encounter Care Teams Beam Machine Operator Relationship Specialty Start Date End Date Yung Horn MD [address] [place] [address] PCP - General 11/22/16 documented as of this encounter
--- OUTSIDE RECORDS SUMMARY | 2024-02-21 09:31 | XMS_ITS | Encounter Summary ---
[place] [address] Care Team Providers Care Seam Steamer Name Role Phone Yung Horn MD Primary Care Provider [phone] Reason for Visit * Consultation (Routine) - Specialty Diagnoses / Procedures Referred By Contac t Referred To Contact Gastroenterology Diagnoses Chest pain, unspecified type Mariana Holden MD [facility] GENERAL [place] [address] [facility] [place] [address] [address] Referral ID Status Reason Start Date Expiration Date V isits Requested Visits Authorized [id number] Specialty Service Requested PCP Updated and/or Approved 05/28/2017 05/28/2018 6 6 Encounter Details Date Type Department Care Team (Late st Contact Info) Description 04/18/2018 9:00 AM EDT Office [place] [address] Robert Ramos MD [facility] [place] [address] Obesity, unspecified classification, unspecified obesity type, unspecified [...] Progress Notes * Robert Ramos MD - 04/18/2018 9:00 AM EDT HISTORY: Yung Betancur presents for consultation and further evaluation of weight control, diabetes control,and GERD We had a shortened visit due to late arrival. In 2009, Dr. Lori Alba [facility] performed a gastric bypass. His pre-op weight was 375 lbs went to 220 post-op, but regain to about 255 now On metformin for DM, and had been on insulin Has been with customer strategy manager in past Has done some meal plans [...] large pouch and dilated stoma. Lives in [place], about 2 hours away and not able to participate in the [facility] program, but willing to be seen [...] 25 of 30 minutes spent in direct [id number] counselling and the rest in taking history. PLAN: Will set up time for revisit and with Albino Veloz Continue current medications Consider [facility] visit Robert Ramos MD Section of Gastroenterology and Hepatology documented in this encounter Plan of Treatment Upcoming Encounters Date Type Department Care Team (Late st Contact Info) Description 02/22/2024 11:40 AM EDT [place] [address] Manoj Vinson MD [facility] [place] [address] documented as of this encounter Visit Diagnoses Diagnosis Obesity, unspecified classification, unspecified obesity type, unspecified whether serious comorbidity present Gastroesophageal reflux disease, esophagitis presence not specified documented in this encounter Care Teams Seam Steamer Relationship Specialty Start Date End Date Yung Horn MD [facility] [address] PCP - General 11/22/16 documented as of this encounter
--- OUTSIDE RECORDS SUMMARY | 2024-02-21 09:31 | XMS_ITS | Encounter Summary ---
Author Organization [facility] [place] [address] Care Team Providers Care Pivot End Polisher Name Role Phone Yung Horn MD Primary Care Provider [phone] Encounter Details Date Type Department Care Team (Late st Contact Info) Description 09/27/2017 1:00 PM EDT Office [place] [address] Thalia Harper APRN [facility] [place] [address] Non-cardiac chest pain Social History Tobacco Use [...] from the ?incisors). This was traversed. The [id number] ?limb was characterized by healthy appearing mucosa. [...] 11:40 AM EDT [place] [address] Manoj Vinson MD [facility] [place] [address] documented as of this encounter Visit Diagnoses Diagnosis Non-cardiac chest pain Other chest pain documented in this encounter Care Teams Pivot End Polisher Relationship Specialty Start Date End Date Yung Horn MD [address] [place] [address] PCP - General 11/22/16 documented as of this encounter
--- OUTSIDE RECORDS SUMMARY | 2024-02-21 09:31 | XMS_ITS | Encounter Summary ---
[place] [address] Care Team Providers Care Land Leasing Information Clerk Name Role Phone Elizabeth Horn MD Primary Care Provider [phone] Encounter Details Date Type Department Care Team (Late st Contact Info) Description 01/17/2020 Telephone Cardiology at [address] [phone] Laurence Giordano LPN Social History Tobacco Use [...] She inquiring about his stress test results. [phone]. Forwarded to Dr. Matias for results. ALEJANDRO Dang documented in this encounter Plan of Treatment Upcoming Encounters Date Type Department Care Team (Late st Contact Info) Description 02/22/2024 11:40 AM EDT Office [place] [address] Manoj Vinson MD [facility] [place] [address] documented as of this encounter Visit Diagnoses Not on filedocumented in this encounter Care Teams Land Leasing Information Clerk Relationship Specialty Start Date End Date Elizabeth Horn MD [address] [place] [address] PCP - General 11/22/16 documented as of this encounter
--- OUTSIDE RECORDS SUMMARY | 2024-02-21 09:31 | XMS_ITS | Encounter Summary ---
Author Organization [facility] [place] [address] Care Team Providers Care Grain Trader Name Role Phone Yung Horn MD Primary Care Provider [phone] Reason for Visit * Consultation (Urgent) - Closed Specialty Diagnoses / Procedures Referred By Contac t Referred To Contact Gastroenterology Diagnoses cirrhosis, elevated LFTs Procedures cons Yung Horn MD [address] [place] [address] [place] [address] [facility] Gastro 4l [place] [address] Referral ID Status Reason Start Date Expiration Date Visits Re quested Visits Authorized [id number] Closed 07/06/2020 07/06/2021 1 1 Encounter Details Date Type Department Care Team (Latest Contact Info) Description 07/16/2020 10:00 AM EST Office Visit [place] [address] Tatiana Munoz APRN [facility] [place] [address] Hepatic cirrhosis, unspecified hepatic cirrhosis [...] HEPATOLOGY NEW PATIENT CONSULTATION Yung Betancur 1955 SYSTEM PLANNING ENGINEER: TATIANA MUNOZ APRN PCP: Yung Horn MD Requesting Provider: REASON FOR CONSULTATION Elevated liver enzymes, hospital follow up, concern for cirrhosis HISTORY OF PRESENT ILLNESS Yung Betancur is a 64 y.o. 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 He was admitted at [facility] from 07/01- 07/04 and initially came into [...] , 5 dogs. 5 children, seperately. 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 Stopped drinking on 07/01 when admitted at [facility]. FAMILY HISTORY PHYSICAL EXAM Vitals: 07/16/20 1001 [...] were low when he was inpatient at [facility] suggesting cirrhosis, however his plateletsare now normal. [...] Munoz APRN Section of Gastroenterology [place] [address] Copy: MD Doreen [address] / [facility] [id number] Time spent reviewing records prior to this [...] 11:40 AM EDT Office [place] [address] Manoj Vinsno MD [facility] [place] [address] documented as of this encounter Procedures Procedure [...] CERULOPLASMIN Routine 07/16/2020 12:1 1 PM EST EHRR (nonalcoholic steatohepatitis) Alcoholic steatohepatitis HC [facility] SMOOTH MUSCLE AB, SERUM Routine 07/16/2020 12:11 [...] * Differential, Automated (07/16/2020 12:11 PM EST) Pathologist [facility] Neutrophil % 66.0 % [facility] Neutrophil Absolute 4.27 1.70 - 6.10 x10(3)/[facility] Lymph % 25.0 % [facility] Lymphocytes Abs 1.6 0.9 - 3.2 x10(3)/[facility] Monocyte % 6.5 % [facility] Monocyte Abs 0.4 0.3 - 0.9 x10(3)/[facility] LABOR[facility] Eos % 1.9 % [facility] Eosinophils Abs 0.1 0.0 - 0.4 x10(3)/[facility] Basophil % 0.3 % [facility] Baso Absolute 0.0 0.0 - 0.1 x10(3)/[facility] Immature Gran % 0.30 % [facility] Comment: Immature granulocytes(IG's)percentage and absolute count will include metamyelocytes, myelocytes, and promyelocytes. Blood smears from CBCs yielding IG's will be scanned manually for concordance. If this scan disagrees with the automated IG or if promyelocytes are noted, a manual differential will be performed. Immature Gran Absolute 0.02 0.00 - 0.04 x10(3)/[facility] Blood specimen (specimen) 07/16/2020 12:11 PM EST 07/16/2020 12:20 PM EST Narrative Resulting Agency Comment Spec In Lab Tatiana Munoz DISPUTE RESOLUTION ANALYST HEMATOLOGY ORDERAB LES [facility] [place] [address] * (ABNORMAL) Hemogram (07/16/2020 12:11 PM EST) [facility] White Blood Cell 6.5 4.0 - 9.5 x10(3)/mc L [facility] Red Blood Cell 4.40(L) 4.58 - 5.54 x10(6)/mc L [facility] Hemoglobin 13.5(L) 13.7 - 16.5 gm/dL [facility] Hematocrit 40.4(L) 40.5 - 48.5 % [facility] Mean Cell Volume 91.8 82.9 - 93.1 fL [facility] Mean Cell Hemoglobin 30.7 27.5 - 32.1 pg [facility] Mean Cell Hemoglobin Concentration 33.4 32.0 - 35.7 gm/dL [facility] Platelet 234 145 - 357 x10(3)/mc L [facility] RDW Standard Deviation 40.6 36.0 - 45.0 fL [facility] RDW coefficient of variation 11.9 11.4 - 13.8 % [facility] Mean Platelet Volume 10.0 7.6 - 12.9 fL [facility] NRBC% auto 0.0 % [facility] NRBC Absolute 0.000 0.000 - 0.000 x10(3)/mc L [facility] Blood specimen (specimen) 07/16/2020 12:11 PM EST 07/16/2020 12:20 PM EST Narrative Resulting Agency Comment Spec In Lab Tatiana Munoz APRN HEMATOLOGY ORDERAB LES Performing Organization Address City/State/[facility] Co de Phone Number [facility] [place] [address] * Mitochondrial Antibody, M2 (07/16/2020 12:11 PM EST) Mitochon Ab (NOVEMBER) <0.1 <0.1 (Negative) U [facility] Comment: Test Performed by: [facility] [address] [place] [address] Route Salesman And Driver: Ebenezer Liang M.D. Ph.D.; CLIA# [id number] Blood specimen (specimen) 07/16/2020 12:11 PM EST 07/16/2020 4:19 PM EST Narrative Resulting Agency Comment Spec In Lab Tatiana Munoz ROBBI LAB SEND OUT ORDER GLEN Performing Organization Address [facility] de Phone Number [facility] [place] [address] * Tissue transglutaminase, IgA (07/16/2020 12:11 PM EST) TTG IgA Ab 0.3 0.1 - 10.0 u/ml [facility] Comment: Negative = <7 U/mL Equivocal = 7-10 U/mL Positive = >10 U/mL Blood specimen (specimen) 07/16/2020 12:11 PM EST 07/16/2020 4:21 PM EST Narrative Resulting Agency Comment Spec In Lab Tatiana Munoz ROBBI IMMUNOLOGY ORDERAB LES Performing Organization Address [facility] de Phone Number [facility] [place] [address] * BHARAT ([facility]/CGP/APD/NLH) (07/16/2020 12:11 PM EST) BHARAT Neg Neg [facility] Comment:Anti-nuclear antibod ies were tested using an indirect immunofluorescent assay. Blood specimen (specimen) 07/16/2020 12:11 PM EST 07/16/2020 4:21 PM EST Narrative Resulting Agency Comment Spec In Lab Tatiana Munoz ROBBI LAB SEND OUT ORDER GLEN Performing Organization Address [facility] [address] [facility] Co de Phone Number [facility] [place] [address] * Smooth Muscle Antibody (07/16/2020 12:11 PM EST) Sm Muscle Ab (NOVEMBER) Negative Negative M [facility] Comment: ADDITIONAL INFORMATION This test was developed and its performance characteristics determined by [facility] in a manner consistent with CLIA requirements. This test has not been cleared or approved by the U.S. Food and Drug Administration. Test Performed by: [facility] [address] [place] [address] Route Salesman And Driver: Ebenezer Liang M.D. Ph.D.; CLIA# [id number] Blood specimen (specimen) 07/16/2020 12:11 PM EST 07/16/2020 4:19 PM EST Narrative Resulting Agency Comment Spec In Lab Tatiana Munoz APRN LAB SEND OUT ORDER GLEN Performing Organization Address [facility] [address]/ZIP Co de Phone Number [facility] [place] [address] * Ceruloplasmin (07/16/2020 12:11 PM EST) Ceruloplasmin 24.0 15.0 - 30.0 mg/dL [facility] Blood specimen (specimen) 07/16/2020 12:11 PM EST 07/16/2020 12:20 PM EST Narrative Resulting Agency Comment Spec In Lab Tatiana Munoz APRN CHEMISTRY ORDERABL ES Performing Organization Address [facility] [address]/[facility] Co de Phone Number [facility] [place] [address] * Prothrombin Time (07/16/2020 12:11 PM EST) Prothrombin Time 10.3 9.4 - 12.5 sec [facility] International Normalization Ratio 0.9 [facility] Comment: An INR <2.0 indicates [...] Agency Comment Spec In Lab Tatiana Munoz ROBBI HEMATOLOGY ORDERAB LES [facility] [place] [address] * (ABNORMAL) Comprehensive metabolic panel (non-fasting) (07/16/2020 12:11 PM EST) Glucose 146 65 - 199 mg/dL [facility] Comment:Diabetes: >=200 mg/d L plus symptoms Blood Urea Nitrogen 22(H) 10 - 20 mg/dL [facility] Creatinine 1.29 0.80 - 1.50 mg/dL [facility] Sodium 137 135 - 145 mmol/L [facility] Potassium 5.0 3.5 - 5.0 mmol/L [facility] Comment: Please note: ??Patients with WBC >100,000 may have falsely elevated Potassium levels. ??For accurate Potassium quantification in these patients send serum separator tube (gold top) for subsequent determinations. ??Contact the Clinical Chemistry Laboratory if there are any questions. Chloride 102 98 - 107 mmol/L [facility] Carbon Dioxide 24 22 - 31 mmol/L [facility] Anion Gap 11 5 - 15 mmol/L [facility] Calcium 9.3 8.5 - 10.5 mg/dL [facility] Protein, Total 6.9 6.1 - 8.0 gm/dL [facility] Albumin 4.4 3.2 - 5.2 gm/dL [facility] Aspartate Aminotransferase 36 0 - 39 unit/L [facility] Alanine Aminotransferase 44 0 - 55 unit/L [facility] Alkaline Phosphatase 91 40 - 130 unit/L [facility] Bilirubin, Total 0.6 0.2 - 1.3 mg/dL [facility] Est Glomerular Filtration Rate 59(L) >=60 mL/min/1. 73 m?? [facility] Comment: This patient? s estimated [...] Lab Tatiana Munoz APRN CHEMISTRY ORDERABL ES [facility] [place] [address] documented in this encounter Visit Diagnoses Diagnosis Hepatic cirrhosis, unspecified hepatic cirrhosis type, unspecified whether ascites present HERR (nonalcoholic steatohepatitis) Other chronic nonalcoholic liver disease Alcoholic steatohepatitis documented in this encounter Care Teams Grain Trader Relationship Specialty Start Date End Date Yung Horn MD [address] [place] [address] PCP - General 11/22/16 documented as of this encounter
--- OUTSIDE RECORDS SUMMARY | 2024-02-21 09:31 | XMS_ITS | Encounter Summary ---
[place] [address] Care Team Providers Care Electrician Journeyman Wireman Name Role Phone Yung Horn MD Primary Care Provider [phone] Reason for Visit * Reason Onset Date Comments Results 02/01/2021 Encounter Details Date Type Department Care Team (Late st Contact Info) Description 02/01/2021 Telephone [place] [address] Nafisa Lo, RN Results Social History Tobacco [...] 11:40 AM EDT [place] [address] Manoj Vinson MD [facility] [address] documented as of this encounter Visit Diagnoses Not on filedocumented in this encounter Care Teams Electrician Journeyman Wireman Relationship Specialty Start Date End Date Yung Horn MD [address] [place] [address] PCP - General 11/22/16 documented as of this encounter
--- OUTSIDE RECORDS SUMMARY | 2024-02-21 09:31 | XMS_ITS | Encounter Summary ---
Author Organization [facility] [place] [address] Care Team Providers Care Haul Truck Driver Name Role Phone Yung Horn MD Primary Care Provider [phone] Encounter Details Date Type Department Care Team (Late st Contact Info) Description 01/12/2021 9:00 AM EDT Office [place] [phone] Tatiana Call APRN [facility] [place] [address] Elevated liver enzymes Social History Tobacco Use [...] will get your liver biopsy results from [facility] to look at with out pathologists - [...] gallbladder removed. He had surgery done at [facility] and has recovered well from surgery. He [...] Take 81 mg by mouth Daily. ??? GlobantTOUCH ULTRA2 Kit TEST BLOOD GLUCOSE WITH ALL [...] , 5 dogs. 5 children, seperately. 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 Stopped drinking on 07/01/20 when admitted at [facility]. FAMILY HISTORY PHYSICAL EXAM Vitals: 01/12/21 0914 [...] [facility]. His blood pressure is [...] will get your liver biopsy results from [facility] to look at with out pathologists - [...] Call APRN Section of Gastroenterology [place] [address] Copy: MD [address] / [facility] [phone] Time spent reviewing records prior to this [...] 11:40 AM EDT Office [place] [address] Manoj Vinson MD [facility] [place] [address] documented as of this encounter Procedures Procedure Name Priority Date/Time Associated Diagnosis Comments HEMOGRAM Routine 01/12/2021 10:12 AM EDT Elevated liver enzymes DIFFERENTIAL, AUTOMATED Routine 01/12/2021 10:12 AM EDT Elevated liver enzymes HC VENIPUNCTURE Routine 01/12/2021 10:12 AM EDT Elevated liver enzymes COMPREHENSIVE METABOLIC PANEL Routine 01/12/2021 10:12 AM EDT Elevated liver enzymes documented in this encounter Results * Differential, Automated (01/12/2021 10:12 AM EDT) Neutrophil % 67.9 % [facility] Neutrophil Absolute 5.79 1.70 - 6.10 x10(3)/[facility] Lymph % 22.4 % [facility] Lymphocytes Abs 1.9 0.9 - 3.2 x10(3)/[facility] Monocyte % 7.5 % [facility] Monocyte Abs 0.6 0.3 - 0.9 x10(3)/[facility] Eos % 1.5 % [facility] Eosinophils Abs 0.1 0.0 - 0.4 x10(3)/[facility] Basophil % 0.2 % [facility] Baso Absolute 0.0 0.0 - 0.1 x10(3)/[facility]OR[facility] Immature Gran % 0.50 % [facility] Comment: Immature granulocytes(IG's)percentage and absolute count will include metamyelocytes, myelocytes, and promyelocytes. Blood smears from CBCs yielding IG's will be scanned manually for concordance. If this scan disagrees with the automated IG or if promyelocytes are noted, a manual differential will be performed. Immature Gran Absolute 0.04 0.00 - 0.04 x10(3)/[facility] Blood 01/12/2021 10:1 2 AM EDT 01/12/2021 10:28 AM EDT Narrative Resulting Agency Comment Spec In Lab Tatiana Call APRN HEMATOLOGY ORDERAB LES [facility] [place] [address] * (ABNORMAL) Hemogram (01/12/2021 10:12 AM EDT) White Blood Cell 8.5 4.0 - 9.5 x10(3)/mc L [facility] Red Blood Cell 4.39(L) 4.58 - 5.54 x10(6)/mc L [facility] Hemoglobin 12.7(L) 13.7 - 16.5 gm/dL [facility] Hematocrit 37.7(L) 40.5 - 48.5 % [facility] Mean Cell Volume 85.9 82.9 - 93.1 fL [facility] Mean Cell Hemoglobin 28.9 27.5 - 32.1 pg [facility] Mean Cell Hemoglobin Concentration 33.7 32.0 - 35.7 gm/dL [facility] Platelet 277 145 - 357 x10(3)/mc L [facility] RDW Standard Deviation 40.3 36.0 - 45.0 fL [facility] RDW coefficient of variation 12.8 11.4 - 13.8 % [facility] Mean Platelet Volume 9.8 7.6 - 12.9 fL [facility] NRBC% auto 0.0 % [facility] NRBC Absolute 0.000 0.000 - 0.000 x10(3)/mc L [facility] Blood 01/12/2021 10:1 2 AM EDT 01/12/2021 10:28 AM EDT Narrative Resulting Agency Comment Spec In Lab Tatiana Call APRN HEMATOLOGY ORDERAB LES [facility] [place] [address] * (ABNORMAL) Comprehensive metabolic panel (non-fasting) (01/12/2021 10:12 AM EDT) Glucose 128 65 - 199 mg/dL [facility] Comment:Diabetes: >=200 mg/d L plus symptoms Blood Urea Nitrogen 26(H) 10 - 20 mg/dL [facility] Creatinine 1.26 0.80 - 1.50 mg/dL [facility] Sodium 133(L) 135 - 145 mmol/L [facility] Potassium 4.7 3.5 - 5.0 mmol/L [facility] Comment: Please note: ??Patients with WBC >100,000 may have falsely elevated Potassium levels. ??For accurate Potassium quantification in these patients send serum separator tube (gold top) for subsequent determinations. ??Contact the Clinical Chemistry Laboratory if there are any questions. Chloride 97(L) 98 - 107 mmol/L [facility] Carbon Dioxide 24 22 - 31 mmol/L [facility] Anion Gap 12 5 - 15 mmol/L [facility] Calcium 9.8 8.5 - 10.5 mg/dL [facility] Protein, Total 7.7 6.1 - 8.0 gm/dL [facility] Albumin 4.2 3.2 - 5.2 gm/dL [facility] Aspartate Aminotransferase 15 0 - 39 unit/L [facility] Alanine Aminotransferase 21 0 - 55 unit/L [facility] Alkaline Phosphatase 133(H) 40 - 130 unit/L [facility] Bilirubin, Total 0.4 0.2 - 1.3 mg/dL [facility] Est Glomerular Filtration Rate 60 >=60 mL/min/1. 73 m?? [facility] [...] Lab Tatiana Call APRN CHEMISTRY ORDERABL ES [facility] [place] [address] documented in this encounter Visit Diagnoses Diagnosis Elevated liver enzymes Nonspecific elevation of levels of transaminase or lactic acid dehydrogenase (LDH) documented in this encounter Care Teams Haul Truck Driver Relationship Specialty Start Date End Date Yung Horn MD [facility] [place] [address] PCP - General 11/22/16 documented as of this encounter
--- OUTSIDE RECORDS SUMMARY | 2024-02-21 09:31 | XMS_ITS | Encounter Summary ---
Author Organization [facility] [place] [address] Care Team Providers Care Head Of Partner Development Name Role Phone Yung Horn MD Primary Care Provider [phone] Reason for Visit * Reason Comments Medication Refill Encounter Details Date Type Department Care Team (Late Contact Info) Description 12/04/2019 Refill Gastroenterology at [place] [phone] [facility] [place] [address] Social History Tobacco Use Types Packs/Day Years [...] 11:40 AM EDT Office Visit Urology at [place] [phone] [facility] [place] [address] documented as of this encounter Visit Diagnoses Not on filedocumented in this encounter Care Teams Head Of Partner Development Relationship Specialty Start Date End Date Yung Horn MD [address] [place] [address] PCP - General 11/22/16 documented as of this encounter
--- OUTSIDE RECORDS SUMMARY | 2024-02-21 09:31 | XMS_ITS | Encounter Summary ---
[place] [address] Care Team Providers Care Intelligence Intern Name Role Phone Yung Horn MD Primary Care Provider Reason for Referral * Diagnostic Test (Routine) - Closed Specialty Diagnoses / Procedures Referred By Contac t Referred To Contact Diagnoses LINTON (dyspnea on exertion) Procedures Echocardiogram Stress (Treadmill) Yung Olsen MD [facility] [place] [address] [facility] [place] [address] Referral ID Status Reason Start Date Expiration Date V isits Requested Visits Authorized [id number] Closed Specialty Service Requested 01/14/2020 05/13/2020 1 1 Reason for Visit * Diagnostic Test (Routine) - Closed Specialty Diagnoses / Procedures Referred By Contac t Referred To Contact Diagnoses LINTON (dyspnea on exertion) Procedures Echocardiogram Stress (Treadmill) Yung Olsen MD [facility] [place] [address] [facility] [place] [address] Referral ID Status Reason Start Date Expiration Date V isits Requested Visits Authorized [id number] Closed Specialty Service Requested 01/14/2020 05/13/2020 1 1 Encounter Details Date Type Department Care Team (Latest Contact Info) Description 01/14/2020 10:00 AM EDT - 01/14/2020 11:59 PM EDT Hospital Encounter Non-Invasive Cardiology Lab [facility] [place] [address] Yung Olsen MD [facility] [place] [address] LINTON (dyspnea on exertion) Discharge Disposition: Home [...] daily (with meals). One tablet per day pantoprazole EC (Protonix) 40 mg Tablet, Delayed Release (E.C.) TAKE ONE TABLET BY MOUTH TWICE A DAY BEFORE MEALS 60 tablet 11 12/06/2019 12/08/2020 magnesium oxide (MAG-OX) 400 mg (241.3 mg magnesium) Tablet TAKE 1 TABLET BY MOUTH DAILY 3 09/01/2018 07/29/2021 aspirin 81 mg Tablet, Chewable Take 81 mg by mouth Daily. 07/29/2021 Sevcon ULTRA2 Kit TEST BLOOD GLUCOSE WITH ALL [...] Office Visit Urology at [facility] [place] [phone] Manoj Vinson MD [facility] [place] [address] documented as of this encounter Procedures Procedure [...] JOHNSON ? (Age): 1955(64y) Med Rec#: ? [id number] ?Sex: ?M ? Site Loc: ? [facility] [place]Ht / Wt: ??180(cm)/113(kg) Pt. Loc: ?Echo Lab ?BSA: ?2.31 Study Date: ?? 01/14/2020 ?Pt. Type: Tape: ? Referring: PRETTY Referring: Yung Olsen Reading: Saran Shetty ([id number]) Pharmacy Manager: Manisha Aguilar Search Engine Optimization Analyst: More Case Diagnosis: *Dyspnea, unspecified (R06.00) Indication: [...] Normal ? Mid-Inferoseptal ?Normal ? Normal ? [place]-Septal ? Normal ? Normal ? [place]-Anterior ? Normal ? Normal ? [place]-Lateral ?Normal ? Normal ? [place]-Inferior ? Normal ? Normal ? [place]-Tip ?Normal ? Normal ? This report has been electronically signed by: Saran Shetty M.D. ? 01/14/2020 14:02:39 Images reviewed and interpretation verified [facility] Cardiac Ultrasound Laboratory Procedure Note Saran Shetty MD - 01/14/2020 Procedure: Stress Echocardiogram Patient: TAYLOR SUAREZ(Age): 1955(64y) Med Rec#: [id number] Sex: M Site Loc: [facility] Ht / Wt: 180(cm)/113(kg) Pt. Loc: Echo Lab BSA: 2.31 Study Date: 01/14/2020 Pt. Type: Tape: Referring: LEONAFritz Referring: Yung Olsen Reading: Saran Shetty ([id number]) Pharmacy Manager: Manisha Aguilar Search Engine Optimization Analyst: More Case Diagnosis: *Dyspnea, unspecified (R06.00) Indication: [...] Normal Mid-Inferior Normal Normal Mid-Inferoseptal Normal Normal [place]-Septal Normal Normal [place]-Anterior Normal Normal [place]-Lateral Normal Normal [place]-Inferior Normal Normal [place]-Tip Normal Normal This report has been electronically signed by: Saran Shetty M.D. 01/14/2020 14:02:39 Images reviewed and interpretation verified [facility] Cardiac Ultrasound Laboratory Yung Olsen MD ECHO [...] Intravenous, ONCE PRN, 1 dose, Starting on 01/14/20 at 1110, Until 01/14/20 at 1050, Other, for enhancement of sub-optimal echo images, Echo Lab (Intra-Procedure), Routine Given 01/14/2020 10:50 AM EDT 1 mL documented in this encounter Care Teams Intelligence Intern Relationship Specialty Start Date End Date Yung Horn MD [address] [place] [address] PCP - General 11/22/16 documented as of this encounter
--- OUTSIDE RECORDS SUMMARY | 2024-02-21 09:31 | XMS_ITS | Encounter Summary ---
Author Organization [facility] [place] [address] Care Team Providers Care Music Publicist Name Role Phone Yung Horn MD Primary Care Provider [phone] Reason for Visit * Auth/Cert Specialty Diagnoses / Procedures Referred By Marisela ramesh Referred To Contact Diagnoses Chest pain Procedures emergency obsvo Referral ID Status Reason Start Date Expiration Date Visits Re quested Visits Authorized [id number] 1 1 Encounter Details Date Type Department Care Team (Latest Contact Info) Description 07/29/2021 9:20 AM EST Office Visit Cardiology at [address] [address] Zoya Finney T, MACHINE DRILLER [facility] [place] [address] Chest pain, unspecified type; LINTON (dyspnea on exertion); Coronary artery disease involving levelock coronary artery of levelock heart, unspecified whether angina present; Pre-operative cardiovascular [...] this encounter Progress Notes * Zoya Finney, MACHINE DRILLER - 07/29/2021 9:20 AM EST Images from the original note were not included. [facility] [place] [address] [address] GENERAL CARDIOLOGY FOLLOW-UP Subjective: CC: Follow up of dyspnea on exertion HPI: Yung Betancur is a 65 y.o. male with chest pain/LINTON of unknown origin and non-obstructive CAD.Work up has included: ?? Cath 05/26: Mid LAD bridge, c/w no significant CAD. R heart pressures not assessed ?? Echo 08/29 ([place], [place]): Normal LV, mildly dilated RV, PASP 30-40 [...] average 110s/60s. He reportedly saw Pulmonology at [facility] in the summer, but records are not [...] which did not show evidence of ischemia. 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 [...] Follow up: as needed Zoya Finney, JATIN, PLASTICS TECHNICIAN-BC, MACHINE DRILLER [facility] Cardiovascular Medicine Pager [phone] 07/29/2021 documented in this encounter Plan of Treatment Upcoming Encounters Date Type Department Care Team (Late st Contact Info) Description 02/22/2024 11:40 AM EDT Office Visit Urology at [facility] [place] [phone] Manoj Vinson MD [facility] [place] [address] documented as of this encounter Procedures Procedure [...] (Bezet) 430 ms MUSE SYSTEM Calculated P [place] 67 degrees MUSE SYSTEM Calculated R [place] 0 degrees MUSE SYSTEM Calculated T [place] 55 degrees MUSE SYSTEM INTERPRETATION Sinus tachycardia Otherwise normal ECG When compared with ECG of 08-OCT-2020 09:20, Premature ventricular complexes are no longer Present Confirmed by MD Christelle, Puneet Falk ([id number]) on 07/29/2021 9:43:18 AM MUSE SYSTEM 07/29/2021 9:07 AM EST 07/29/2021 9:43 AM EST Zoya Finney APRN ECG ORDERABLES MUSE SYSTEM documented in this encounter Visit Diagnoses Diagnosis Chest pain, unspecified type LINTON (dyspnea on exertion) Other dyspnea and respiratory abnormality Coronary artery disease involving levelock coronary artery of levelock heart, unspecified whether angina present Pre-operative cardiovascular examination Acute thoracic back pain, unspecified back pain laterality documented in this encounter Additional Health Concerns Infection Onset Date Last Indicated Resolved Time Rule Out COVID-19 07/29/2021 07/29/2021 07/29/2021 3:34 PM EST documented as of this encounter Care Teams Music Publicist Relationship Specialty Start Date End Date Yung Horn MD [address] [place] [address] PCP - General 11/22/16 documented as of this encounter
--- OUTSIDE RECORDS SUMMARY | 2024-02-21 09:31 | XMS_ITS | Encounter Summary ---
[place] [address] Care Team Providers Care Director Of Testing Name Role Phone Yung Horn MD Primary Care Provider [phone] Encounter Details Date Type Department Care Team (Late st Contact Info) Description 08/03/2018 Telephone [place] [phone] Suzy Loza Social History Tobacco Use Types [...] message? yes Preferred method of communication: home [phone] documented in this encounter Plan of Treatment Upcoming Encounters Date Type Department Care Team (Late st Contact Info) Description 02/22/2024 11:40 AM EDT [place] [address] [facility] [place] [address] documented as of this encounter Visit Diagnoses Not on filedocumented in this encounter Care Teams Director Of Testing Relationship Specialty Start Date End Date Yung Horn MD [address] [place] [address] PCP - General 11/22/16 documented as of this encounter
--- OUTSIDE RECORDS SUMMARY | 2024-02-21 09:31 | XMS_ITS | Encounter Summary ---
Author Organization [facility] [place] [address] Care Team Providers Care Flat Bed Operator Name Role Phone Yung Horn MD Primary Care Provider [phone] Reason for Visit * Reason Comments Follow-up Encounter Details Date Type Department Care Team (Late st Contact Info) Description 09/17/2018 1:00 PM EDT Office [place] [address] Robert Ramos MD [facility] [place] [address] Obesity, unspecified classification, unspecified obesity type, unspecified [...] 18 of 25 minutes spent in direct [id number] counseling and the rest in taking a history. PLAN: Visit to the [facility] or bariatric program electronics tester/implementation project manager Visit with Dr. Amilcar Wagner in Endocrinology or in [facility] Repeat barium swallow Continue acid suppression Robert Ramos MD Section of Gastroenterology and Hepatology documented in this encounter Plan of Treatment Upcoming Encounters Date Type Department Care Team (Late st Contact Info) Description 02/22/2024 11:40 AM EDT [place] [address] Manoj Vinson MD [facility] [place] [address] documented as of this encounter Visit Diagnoses Diagnosis Obesity, unspecified classification, unspecified obesity type, unspecified whether serious comorbidity present documented in this encounter Care Teams Flat Bed Operator Relationship Specialty Start Date End Date Yung Horn MD [address] [place] [address] PCP - General 11/22/16 documented as of this encounter
--- OUTSIDE RECORDS SUMMARY | 2024-02-21 09:31 | XMS_ITS | Encounter Summary ---
Author Organization [facility] Address [facility] [place] [address] Care Team Providers Care Concrete Pouring Supervisor Name Role Phone Yung Horn MD Primary Care Provider [phone] Reason for Visit * Reason Comments Chest Pain Shortness of Breath * Auth/Cert Specialty Diagnoses / Procedures Referred By Contac t Referred To Contact Diagnoses Chest pain Procedures emergency obsvo Referral ID Status Reason Start Date Expiration Date Visits Re quested Visits Authorized [id number] 1 1 Encounter Details Date Type Department Care Team (Late st Contact Info) Description 07/29/2021 10:04 AM EST - 07/30/2021 1:18 PM EST [place] [address] Samson García MD [facility] [place] [address] Suzy Treviño MD [facility] [place] [address] Nilam Herbert MD [facility] [place] [address] Chuck Salinas MD [facility] [place] [address] Chest pain (Primary Dx) Discharge Disposition: Home [...] encounter Discharge Instructions * Discharge Instructions* Ananth Amezcua PA - 07/30/2021 10:26 AM EST You [...] sent through Care Everywhere. * Chest Pain (Moroccan) documented in this encounter Medications at Time of Discharge Medication Sig Dispensed Refills Start Date End Date clotrimazole (LOTRIMIN) 1 % Cream Apply twice a day 11/09/2020 tamsulosin (Flomax) 0.4 mg Capsule TAKE ONE [...] Aerosol Inhaler Every 4 hours. 09/18/2020 02/01/2024 pantoprazole EC (Protonix) 40 mg Tablet, Delayed Release (E.C.)Indications:NA SH (nonalcoholic steatohepatitis) TAKE 1 TABLET BY MOUTH TWICE DAILY BEFORE MEALS 60 tablet 07/12/2021 08/10/2021 glipiZIDE (GLUCOTROL) 5 mg Tablet 10 mg 0 03/31/2017 02/01/2024 ferrous sulfate 324 mg (65 mg iron) Tablet, Delayed Release (E.C.)Indications:ir on deficiency anemia Take 324 mg by mouth. Indications: Iron Deficiency Anemia 02/01/2024 documented as of this encounter ED Notes [...] QTC Calculated (Bezet) 430 ms Calculated P North East 67 degrees Calculated R [place] 0 degrees Calculated T [place] 55 degrees INTERPRETATION Sinus tachycardia Otherwise normal [...] QTC Calculated (Bezet) 413 ms Calculated P [place] 50 degrees Calculated R [place] -11 degrees Calculated T [place] 43 degrees INTERPRETATION Normal sinus rhythm Normal ECG When compared with ECG of 29-JUL-2021 09:07, No significant change was found I personally reviewed the tracing and edited the fellows interpretation Confirmed by fellow Dae Solano ([id number]) on 07/29/2021 8:52:02 PM Confirmed by MD Ch Stanislav ([id number]) on 07/30/2021 8:01:40 AM Basic Metabolic Panel [...] PCR Not Detected Not Detected SARS-CoV-2 Source SALES ADMINISTRATOR Swab EKG 12 Lead Result Value Ref Range Ventricular rate 77 BPM Atrial Rate 77 BPM P-R Interval 174 ms QRS Duration 92 ms Q-T Interval 358 ms QTC Calculated (Bezet) 405 ms Calculated P [place] 57 degrees Calculated R [place] -8 degrees Calculated T [place] 41 degrees INTERPRETATION Normal sinus rhythm Normal ECG When compared with ECG of 29-JUL-2021 10:05, (unconfirmed) No significant change was found Confirmed by MD Bourgeois David C. ([id number]) on 07/29/2021 4:26:06 PM POCT Glucose Result Value Ref Range POC Glucose 146 65 - 199 mg/dL EKG 12 Lead Result Value Ref Range Ventricular rate 92 BPM Atrial Rate 92 BPM P-R Interval 176 ms QRS Duration 96 ms Q-T Interval 354 ms QTC Calculated (Bezet) 437 ms Calculated P [place] 46 degrees Calculated R [place] -11 degrees Calculated T [place] 44 degrees INTERPRETATION Normal sinus rhythm Incomplete right bundle branch block Borderline ECG When compared with ECG of 29-JUL-2021 14:47, No significant change was found Confirmed by MD Barnes Danette ([id number]) on 07/30/2021 9:23:04 AM Troponin Result Value [...] by mouth daily. 1 tablet Refills: 0 NetEffectuch Ultra2 Meter Kit TEST BLOOD GLUCOSE WITH [...] Provider Department Dept Phone 07/30/2021 10:40 AM [facility] STRESS Nuclear Medicine at [facility] Arrive at: 3Z INTERVENTIONAL RADIOLOGY [phone] Please do not eat or drink anything for at least 3 hours prior to your appointment. Also, Do not consume any caffeine in any form from food, beverages or medciation for 12 hours prior to exam. This includes: decaffeinated coffee and beverages, chocolate in any form, over the counter medications containing caffeine, ex: Exedrin Migraine etc. 07/30/2021 1:05 PM [facility] ROOM 2 Nuclear Medicine at [facility] Arrive at: 3Z INTERVENTIONAL RADIOLOGY [phone] General Instructions You were evaluated in the [...] contact the Clinical Decision Unit through the [facility] Mechanical Maintenance Technician . Ananth Amezcua PA 07/30/21 1029 * [...] able to swallow, took pills/meds, no nausea, onmonitors, MD aware. * More Aranda RN - 07/29/2021 8:02 PM EST Pt c/o of CP/nausea after eating, repeat trop and EKG done, pt states he gets CP after eating all meals. * More Aranda RN - 07/29/2021 6:40 PM EST Meal order sent. * More Aranda RN - 07/29/2021 4:42 PM EST [...] components within normal limits RAPID COVID-19 PCR ([facility]/APD/NLH) CBC (WITH DIFF) TROPONIN BLUE TUBE HOLD [...] who have questions please contact the health medication care manager that requested your imaging first. Electronically signed by: Jose Loya MD, [facility] ([phone]), at 07/29/2021 11:09 AM NM Pharmacologic Stress CT Component (Results Pending) NM [...] Directive: No, need to discuss (Spouse: Tahmina ([phone])) If AD's have not been completed Spouse: Tahmina ([phone]) would be surrogate decision maker per [place] surrogate decision making law. (Only good for 180 days) Any patient receiving care at [facility] must abide by [place] law. The hierarchy for surrogate decision making [...] DME: oxygen (BIPAP) Home Address listed as: [address] [address] Social & Family Supports: All names listed below confirmed with patient as current and correct Extended Emergency Contact Information Primary Emergency Contact: Tahmina Betancur [facility] Mobile Relation: Spouse Secondary Emergency [...] Insurance: N/A Prescription Coverage: No Preferred Pharmacy: [facility] [address] [address] [id number] [place], [place] - [address] [facility] [address] [id number] AT [address] [address] [place] Status: Patient is a : unable to assess Primary Care Provider: Yung Horn MD [phone] Patient/Caregiver Goals of Treatment: Return home when [...] assist with transition of care planning. Jennifer East ENVIRONMENTAL EMERGENCIES ASSISTANT * ED Triage - More Aranda RN [...] 11:40 AM EDT [place] [address] Manoj Vinson MD [facility] [place] [address] Scheduled Orders Name Type Priority Associated Diagnoses Orde r Schedule EKG 12 Lead ECG STAT One Time for 1 Occurrences starting 07/29/2021 until 07/29/2021 documented as of this encounter Procedures Procedure [...] 07/29/2021 2:47 PM EST RAPID COVID-19 PCR ([facility]/APD/[facility]) STAT 07/29/2021 11:21 AM EST XR CHEST [...] 07/29/2021 10:12 AM EST BASIC METABOLIC PANEL STAT 07/29/2021 10:12 AM EST EKG 12-LEAD [...] who have questions please contact the health medication care manager that requested your imaging first. ? Electronically signed by: Jose Loya MD, [facility] ([phone]), at 07/30/2021 10:15 AM Narrative 07/30/2021 10:15 AM EST EXAMINATION: NM [...] patients who have questions please contactthe health medication care manager that requested your imaging first. Electronically signed by: Jose Loya MD, [facility]([phone]), at 07/30/2021 10:15 AM Samson García MD IMG NM ORDERABLES * Nuclear Pharmacologic Stress Cardiology (07/30/2021 [...] who have questions please contact the health medication care manager that requested your imaging first. ? Electronically signed by: Jose Loya MD, [facility] ([phone]), at 07/30/2021 10:15 AM Narrative 07/30/2021 10:15 AM EST EXAMINATION: NM [...] patients who have questions please contactthe health medication care manager that requested your imaging first. Electronically signed by: Jose Loya MD, [facility]([phone]), at 07/30/2021 10:15 AM Samson García MD [facility] ORDERABLES * Troponin (07/29/2021 8:07 PM EST) Troponin-T <0.01 0.00 - 0.00 ng/mL [facility] Comment: The 99th percentile for Troponin T is less than 0.01 ng/mL, any detectable cTnT concentration using this assay should be considered elevated. According to the third universal definition of myocardial infarction the following criteria with a clinical presentation consistent with acute myocardial ischemia meets the diagnosis for a myocardial infarction (VT). Detection of a rise and/or fall of cTnT, with at least one value greater than the 99th percentile (> or = 0.01) and with at least one of the following ?? Symptoms of ischemia ?? New or presumed new significant EY-vobfbkb-G wave (ST-T) changes or new left bundle [...] additional sample may be indicated. Reference: Third Leigh Definition of Myocardial Infarction. Journal of the [place] [employer] 2012;60:1581-98 Blood 07/29/2021 8:07 PM EST 07/29/2021 8:07 PM EST Narrative Resulting Agency Comment Spec In Lab Samson García MD CHEMISTRY ORDERABLES Performing Organization Address [facility] Co de Phone Number [facility] [place] [place] [address] * EKG 12 Lead (07/29/2021 7:58 PM EST) Ventricular rate 92 BPM MUSE SYSTEM Atrial Rate 92 BPM MUSE SYSTEM P-R Interval 176 ms MUSE SYSTEM QRS Duration 96 ms MUSE SYSTEM Q-T Interval 354 ms MUSE SYSTEM QTC Calculated (Bezet) 437 ms MUSE SYSTEM Calculated P [place] 46 degrees MUSE SYSTEM Calculated R [place] -11 degrees MUSE SYSTEM Calculated T [place] 44 degrees MUSE SYSTEM INTERPRETATION Normal sinus rhythm Incomplete right bundle branch block Borderline ECG When compared with ECG of 29-JUL-2021 14:47, No significant change was found Confirmed by MD Cameron, Nadia ([id number]) on 07/30/2021 9:23:04 AM MUSE SYSTEM 07/29/2021 7:58 PM EST 07/30/2021 9:23 AM EST Alec Lopez MD ECG ORDERABLES Performing Organization Address [facility] de Phone Number MUSE SYSTEM * POCT Glucose (07/29/2021 6:48 PM EST) Glucose, POC 146 65 - 199 mg/dL [facility] Comment: Supplemental ranges: <140 mg/dL before meals <180 mg/dL all other times of the day Blood 07/29/2021 6:48 PM EST 07/29/2021 6:48 PM EST Suzy Treviño MD POINT OF CARE TEST O RDERABLES Performing Organization Address [facility] Co de Phone Number [facility] [place] [address] * EKG 12 Lead (07/29/2021 2:47 PM EST) Ventricular rate 77 BPM MUSE SYSTEM Atrial Rate 77 BPM MUSE SYSTEM P-R Interval 174 ms MUSE SYSTEM QRS Duration 92 ms MUSE SYSTEM Q-T Interval 358 ms MUSE SYSTEM QTC Calculated (Bezet) 405 ms MUSE SYSTEM Calculated P [place] 57 degrees MUSE SYSTEM Calculated R [place] -8 degrees MUSE SYSTEM Calculated T [place] 41 degrees MUSE SYSTEM INTERPRETATION Normal sinus rhythm Normal ECG When compared with ECG of 29-JUL-2021 10:05, (unconfirmed) No significant change was found Confirmed by MD Christelle, Puneet Falk ([id number]) on 07/29/2021 4:26:06 PM MUSE SYSTEM 07/29/2021 2:47 PM EST 07/29/2021 4:26 PM EST Samson García MD ECG ORDERABLES MUSE SYSTEM * COVID-19 PCR (07/29/2021 11:21 AM EST) SARS-CoV-2 RNA (Rapid) Not Detected Not Detected [facility] Comment: This result should be [...] using the Simplexa COVID-19 Direct Assay by Reconnex as authorized by the FDA issued Emergency [...] Department of Pathology and Laboratory Medicine at [facility], certified under the Clinical Laboratory Improvement Amendments [...] fact sheets at the following FDA website: https://www.fda.gov/medical-devices/vxghjxignnt-rktlvhm-5065-vnuxt-92-buaehwhac- use-a faaqqaybcceft-kuqayuv-zlnfpyv/jxuac-qgpkidjuepw-jhbj SARS-CoV-2 Source SALES ADMINISTRATOR Swab MA [facility] Nasopharyngeal Swab 07/29/19 11:21 AM EST 07/29/2021 1:39 PM EST Comment:Symptoms->COVID-19 S uspected Narrative Resulting Agency Comment Spec In Lab Samson García MD MICROBIOLOGY - GENER AL ORDERABLES [facility] [place] [address] * XR Chest One View (07/29/2021 10:50 [...] who have questions please contact the health medication care manager that requested your imaging first. ? Electronically signed by: Jose Loya MD, [facility] ([phone]), at 07/29/2021 11:09 AM Narrative 07/29/2021 11:09 AM EST EXAMINATION: XR [...] patients who have questions please contactthe health medication care manager that requested your imaging first. Samson García MD IMG DX ORDERABLES * (ABNORMAL) D-Dimer, Quantitative (07/29/2021 10:12 AM EST) [facility] Signature D-Dimer 637(H) 0 - 500 FEU ng/ml [facility] Comment: The D-Dimer assay is [...] Lab More Garcia MD HEMATOLOGY ORDERABLE S Performing Organization Address [facility] Co de Phone Number [facility] [place] [address] * Gold Tube HOLD (07/29/2021 10:12 AM EST) Gold Hold Sample in lab. [facility] Blood Venous Draw / Unknown 07/29/2021 10:12 AM EST 07/29/2021 10:28 AM EST Samson García MD CHEMISTRY ORDERABLES Performing Organization Address [facility] Co de Phone Number [facility] [place] [phone] * Differential, Automated (07/29/2021 10:12 AM EST) Neutrophil % 71.7 % [facility] Neutrophil Absolute 5.80 1.70 - 6.10 x10(3)/[facility] Lymph % 20.4 % [facility] Lymphocytes Abs 1.6 0.9 - 3.2 x10(3)/[facility] Monocyte % 5.6 % [facility] Monocyte Abs 0.4 0.3 - 0.9 x10(3)/[facility] Eos % 1.6 % [facility] Eosinophils Abs 0.1 0.0 - 0.4 x10(3)/[facility] Basophil % 0.2 % [facility] Baso Absolute 0.0 0.0 - 0.1 x10(3)/[facility] Immature Gran % 0.50 % [facility] Comment: Immature granulocytes(IG's)percentage and absolute count will include metamyelocytes, myelocytes, and promyelocytes. Blood smears from CBCs yielding IG's will be scanned manually for concordance. If this scan disagrees with the automated IG or if promyelocytes are noted, a manual differential will be performed. Immature Gran Absolute 0.04 0.00 - 0.04 x10(3)/[facility] Blood 07/29/2021 10:1 2 AM EST 07/29/2021 10:27 AM EST Narrative Resulting Agency Comment Spec In Lab Samson García MD HEMATOLOGY ORDERABLE S Performing Organization Address City/State/[facility] Co de Phone Number [facility] [place] [address] * Hemogram (07/29/2021 10:12 AM EST) White Blood Cell 8.1 4.0 - 9.5 x10(3)/[facility] Red Blood Cell 5.05 4.58 - 5.54 x10(6)/[facility] Hemoglobin 15.2 13.7 - 16.5 g/dL [facility] Hematocrit 44.4 40.5 - 48.5 % [facility] Mean Cell Volume 87.9 82.9 - 93.[address] [facility] Mean Cell Hemoglobin 30.1 27.5 - 32.[address] [facility] Mean Cell Hemoglobin Concentration 34.2 32.0 - 35.7 g/dL [facility] Platelet 186 145 - 357 x10(3)/[facility] RDW Standard Deviation 39.8 36.0 - 45.[address] [facility] RDW coefficient of variation 12.4 11.4 - 13.8 % [facility] Mean Platelet Volume 10.2 7.6 - 12.[address] [facility] NRBC% auto 0.0 % [facility] NRBC Absolute 0.000 0.000 - 0.000 x10(3)/mcL [facility] Blood 07/29/2021 10:1 2 AM EST 07/29/2021 10:27 AM EST Narrative Resulting Agency Comment Spec In Lab Samson García MD HEMATOLOGY ORDERABLE S Performing Organization Address [facility] Co de Phone Number [facility] [place] [address] * Blue Tube HOLD (07/29/2021 10:12 AM EST) Blue Hold Sample in lab. [facility] Blood 07/29/2021 10:1 2 AM EST 07/29/2021 10:27 AM EST Samson García MD HEMATOLOGY ORDERABLE S Performing Organization Address [facility] Co de Phone Number [facility] [place] [address] * Troponin (07/29/2021 10:12 AM EST) Pathologist [facility] Troponin-T <0.01 0.00 - 0.00 ng/mL [facility] Comment: The 99th percentile for Troponin T is less than 0.01 ng/mL, any detectable cTnT concentration using this assay should be considered elevated. According to the third universal definition of myocardial infarction the following criteria with a clinical presentation consistent with acute myocardial ischemia meets the diagnosis for a myocardial infarction (VT). Detection of a rise and/or fall of cTnT, with at least one value greater than the 99th percentile (> or = 0.01) and with at least one of the following ?? Symptoms of ischemia ?? New or presumed new significant UO-cqrdski-Z wave (ST-T) changes or new left bundle [...] additional sample may be indicated. Reference: Third Leigh Definition of Myocardial Infarction. Journal of the [place] [employer] 2012;60:1581-98 Blood 07/29/2021 10:1 2 AM EST 07/29/2021 10:27 AM EST Narrative Resulting Agency Comment Spec In Lab Samson García MD CHEMISTRY ORDERABLES [facility] [place] [address] * (ABNORMAL) Basic Metabolic Panel (non-fasting) (07/29/2021 10:12 AM EST) Glucose 188 65 - 199 mg/dL [facility] Comment:Diabetes: >=200 mg/d L plus symptoms Blood Urea Nitrogen 27(H) 10 - 20 mg/dL [facility] Creatinine 1.19 0.80 - 1.50 mg/dL [facility] Sodium 133(L) 135 - 145 mmol/L [facility] Potassium 5.0 3.5 - 5.0 mmol/L [facility] Comment: Please note: ??Patients with WBC >100,000 may have falsely elevated Potassium levels. ??For accurate Potassium quantification in these patients send serum separator tube (gold top) for subsequent determinations. ??Contact the Clinical Chemistry Laboratory if there are any questions. Chloride 99 98 - 107 mmol/L [facility] Carbon Dioxide 20(L) 22 - 31 mmol/L [facility] Anion Gap 14 5 - 15 mmol/L [facility] Calcium 10.0 8.5 - 10.5 mg/dL [facility] Est Glomerular Filtration Rate 64 >=60 mL/min/1. 73 m?? [facility] Comment: This patient? s estimated [...] García MD CHEMISTRY ORDERABLES Performing Organization Address City/[facility] Co de Phone Number [facility] [place] [phone] * EKG 12 Lead (07/29/2021 10:05 AM EST) Ventricular rate 90 BPM MUSE SYSTEM Atrial Rate 90 BPM MUSE SYSTEM P-R Interval 162 ms MUSE SYSTEM QRS Duration 90 ms MUSE SYSTEM Q-T Interval 338 ms MUSE SYSTEM QTC Calculated (Bezet) 413 ms MUSE SYSTEM Calculated P [place] 50 degrees MUSE SYSTEM Calculated R [place] -11 degrees MUSE SYSTEM Calculated T [place] 43 degrees MUSE SYSTEM INTERPRETATION Normal sinus rhythm Normal ECG When compared with ECG of 29-JUL-2021 09:07, No significant change was found I personally reviewed the tracing and edited the fellows interpretation Confirmed by fellow Dae Solano ([id number]) on 07/29/2021 8:52:02 PM Confirmed by MD Ch Stanislav ([id number]) on 07/30/2021 8:01:40 AM MUSE SYSTEM 07/29/2021 10:0 5 AM EST 07/30/2021 8:01 AM EST Samson García MD ECG ORDERABLES Performing Organization Address City/[facility]/ZIP Co de Phone Number MUSE SYSTEM documented in this encounter Visit Diagnoses Diagnosis Chest pain/[place] of uncertain etiology- Primary Chest pain, unspecified Chest pain Chest pain, unspecified documented in this encounter Admitting Diagnoses Diagnosis [...] Unless allergic or given Prior To Admission (FRAMING CONSULTANT). If partial dose administered FRAMING CONSULTANT administer remaining MG for a total dose [...] 1 dose, On Mon07/29/21 at 2129, STAT 2133 (Given - Provider: More Aranda RN) aspirin chewable tablet 324 mg (COMPLETED) 324 mg, Oral, ONCE, 1 dose, On Mon07/29/21 at 1006, Unless allergic or given Prior To Admission (FRAMING CONSULTANT). If partial dose administered FRAMING CONSULTANT administer remaining MG for a total dose of 325 mg/day., STAT 1129 (Given - Provider: Aggie Vanessa RN) aspirin chewable tablet 81 mg 81 mg, Oral, DAILY, First dose on Mon07/30/21 at 0900, Until Discontinued, Routine 0935 (Given - Provid er: Lizzie Beaulieu RN) gabapentin (Neurontin) capsule 800 mg 800 mg, Oral, 3 TIMES DAILY, First dose on Mon07/29/21 at 1500, Until Discontinued, Routine 1711 (Given - Provider: Elena Quintero RN)2132 (Given - Provider: More Aranda, RN) 0936 (Given - Provider: Lizzie Beaulieu RN) ondansetron (pf) (Zofran) (2 mg/mL) injection 4 mg 4 mg, Intravenous, ONCE, 1 dose, On Mon07/29/21 at 1951, STAT 195 (Due) pantoprazole EC (Protonix) tablet 40 mg 40 mg, Oral, 2 TIMES DAILY, First dose on Mon07/29/21 at 2100, Until Discontinued, DO NOT CRUSH OR OPEN, Routine 2132 (Given - Provider: More Aranda, MATEO) 0936 (Given - Provider: Lizzie Beaulieu RN) regadenoson (Lexiscan) injection 0.4 mg (COMPLETED) 0.4 mg, Intravenous, ONCE, 1 dose, On Mon07/30/21 at 0841, Radiology Contrast, Routine 0835 (Given - Provid er: Robert Johansen - [...] documented as of this encounter Care Teams Concrete Pouring Supervisor Relationship Specialty Start Date End Date Yung Horn MD [address] [place] [id number] PCP - General 11/22/16 documented as of this encounter
--- OUTSIDE RECORDS SUMMARY | 2024-02-21 09:31 | XMS_ITS | Encounter Summary ---
[place] [address] Care Team Providers Care Mica Washer Gluer Name Role Phone Yung Horn MD Primary Care Provider [phone] Encounter Details Date Type Department Care Team (Late st Contact Info) Description 01/01/2018 [place]phone [place] [address] Ashley Sena Social History Tobacco Use Types [...] 11:40 AM EDT [place] [address] Manoj Vinson MD [facility] [place] [address] documented as of this encounter Visit Diagnoses Not on filedocumented in this encounter Care Teams Mica Washer Gluer Relationship Specialty Start Date End Date Yung Horn MD [address] [place] [address] PCP - General 11/22/16 documented as of this encounter
--- OUTSIDE RECORDS SUMMARY | 2024-02-21 09:31 | XMS_ITS | Encounter Summary ---
Author Organization [facility] [place] [address] Care Team Providers Care Information Technology Program Manager Name Role Phone Yung Horn MD Primary Care Provider [phone] Encounter Details Date Type Department Care Team (Late st Contact Info) Description 08/23/2018 Telephone [place] [phone] Keren Lacey Social History Tobacco Use Types [...] patient as there is not a personal digital media representative form on file to speak with his . Made patient aware that once Dr. Ramos advises our office will be in touch. Patient verbalized understanding. Also made patient aware that this junior copywriter will mail a Personal Librarian Helper Form for him to complete and mail [...] detailed message? Yes Preferred method of communication: [phone] documented in this encounter Plan of Treatment Upcoming Encounters Date Type Department Care Team (Late st Contact Info) Description 02/22/2024 11:40 AM EDT [place] [address] Manoj Vinson MD [facility] [place] [address] documented as of this encounter Visit Diagnoses Not on filedocumented in this encounter Care Teams Information Technology Program Manager Relationship Specialty Start Date End Date Yung Horn MD [address] [place] [address] [place] [address] PCP - General 11/22/16 documented as of this encounter
--- OUTSIDE RECORDS SUMMARY | 2024-02-21 09:31 | XMS_ITS | Encounter Summary ---
[place] [address] Care Team Providers Care Digital Project Coordinator Name Role Phone Elizabeth Horn MD Primary Care Provider [phone] Reason for Referral * Diagnostic Test (Routine) - Closed Specialty Diagnoses / Procedures Referred By Contac t Referred To Contact Diagnoses LINTON (dyspnea on exertion) Procedures Echocardiogram Stress (Treadmill) Elizabeth Olsen MD [facility] [place] [address] [facility] [place] [address] Referral ID Status Reason Start Date Expiration Date V isits Requested Visits Authorized [id number] Closed Specialty Service Requested 01/14/2020 05/13/2020 1 1 Reason for Visit * Consultation (Routine) - Specialty Diagnoses / Procedures Referred By Contac t Referred To Contact Cardiology Diagnoses Other forms of dyspnea DYSPNEA ON EXERTION Elizabeth Horn MD [address] [place] [address] [place] [address] [facility] [address] [place] [address] Referral ID Status Reason Start Date Expiration Date V isits Requested Visits Authorized [id number] Consult, [facility] PCP Updated and/or Approved 12/17/2019 06/17/2020 6 6 Encounter Details Date Type Department Care Team (Latest Contact Info) Description 12/25/2019 9:40 AM EDT TH Visit (TeleHealth) Cardiology at [address] [place] [address] Elizabeth Olsen MD [facility] [place] [address] Syncope, unspecified syncope type; LINTON (dyspnea on [...] Take 81 mg by mouth Daily. ??? ONEMydeoUCH ULTRA2 Kit TEST BLOOD GLUCOSE WITH ALL [...] on file Retired in 2012, lives in [place] for the past year. 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 Habits: smoked, quit [...] 11:40 AM EDT [place] [address] Manoj Vinson MD [facility] [place] [address] documented as of this encounter Results * EKG 12 Lead (10/08/2020 9:20 AM EDT) Ventricular rate 85 BPM MUSE SYSTEM Atrial Rate 85 BPM MUSE SYSTEM P-R Interval 156 ms MUSE SYSTEM QRS Duration 90 ms MUSE SYSTEM Q-T Interval 360 ms MUSE SYSTEM QTC Calculated (Bezet) 428 ms MUSE SYSTEM Calculated P West 57 degrees MUSE SYSTEM Calculated R West 4 degrees MUSE SYSTEM Calculated T West 35 degrees MUSE SYSTEM INTERPRETATION Sinus rhythm [...] JOHNSON ? (Age): 1955(64y) Med Rec#: ? [id number] ?Sex: ?M ? Site Loc: ? [facility] ?Ht / Wt: ??180(cm)/113(kg) Pt. Loc: ?Echo Lab ?BSA: ?2.31 Study Date: ?? 01/14/2020 ?Pt. Type: Tape: ? Referring: PRETTY Referring: Elizabeth Olsen Reading: Saran Shetty ([id number]) Brake Drum Lathe Operator: Manisha Aguilar Strategic Partnership Specialist: More Case Diagnosis: *Dyspnea, unspecified (R06.00) Indication: [...] Normal ? Mid-Inferoseptal ?Normal ? Normal ? [place]-Septal ? Normal ? Normal ? [place]-Anterior ? Normal ? Normal ? [place]-Lateral ?Normal ? Normal ? [place]-Inferior ? Normal ? Normal ? [place]-Tip ?Normal ? Normal ? This report has been electronically signed by: Saran Shetty M.D. ? 01/14/2020 14:02:39 Images reviewed and interpretation verified [facility] Cardiac Ultrasound Laboratory Procedure Note Saran Shetty MD - 01/14/2020 Procedure: Stress Echocardiogram Patient: TAYLOR SUAREZ(Age): 1955(64y) Med Rec#: [id number] Sex: M [place] [facility] [facility] Ht / Wt: 180(cm)/113(kg) Pt. Loc: Echo Lab BSA: 2.31 Study Date: 01/14/2020 Pt. Type: Tape: Referring: PRETTY Referring: Elizabeth Olsen Reading: Saran Shetty ([id number]) Brake Drum Lathe Operator: Manisha Aguilar Strategic Partnership Specialist: More Case Diagnosis: *Dyspnea, unspecified (R06.00) Indication: [...] Normal Mid-Inferior Normal Normal Mid-Inferoseptal Normal Normal [place]-Septal Normal Normal [place]-Anterior Normal Normal [place]-Lateral Normal Normal [place]-Inferior Normal Normal [place]-Tip Normal Normal This report has been electronically signed by: Saran Shetty M.D. 01/14/2020 14:02:39 Images reviewed and interpretation verified [facility] Cardiac Ultrasound Laboratory Elizabeth Olsen MD ECHO ORDERABLES documented in this encounter Visit Diagnoses Diagnosis Syncope, unspecified syncope type LINTON (dyspnea on exertion) Other dyspnea and respiratory abnormality LINTON (dyspnea on exertion) Other dyspnea and respiratory abnormality documented in this encounter Care Teams Digital Project Coordinator Relationship Specialty Start Date End Date Elizabeth Horn MD [address] [place] [address] PCP - General 11/22/16 documented as of this encounter
--- OUTSIDE RECORDS SUMMARY | 2024-02-21 09:31 | XMS_ITS | Encounter Summary ---
Author Organization [facility] [place] [address] Care Team Providers Care Datastage Consultant Name Role Phone Yung Horn MD Primary Care Provider [phone] Encounter Details Date Type Department Care Team (Late st Contact Info) Description 09/17/2018 Orders Only Gastroenterology at [place] [phone] Robert Ramos MD [facility] [address] Dysphagia, unspecified type (Primary Dx) Social History [...] 11:40 AM EDT Office [place] [address] Manoj Vinson MD [facility] [place] [address] documented as of this encounter Visit Diagnoses Diagnosis Dysphagia, unspecified type- Primary documented in this encounter Care Teams Datastage Consultant Relationship Specialty Start Date End Date Yung Horn MD [address] [place] [address] PCP - General 11/22/16 documented as of this encounter
--- OUTSIDE RECORDS SUMMARY | 2024-02-21 09:31 | XMS_ITS | Encounter Summary ---
Author Organization [facility] [place] [address] Care Team Providers Care Furnace Combination Analyst Name Role Phone Yung Horn MD Primary Care Provider [phone] Encounter Details Date Type Department Care Team (Late st Contact Info) Description 08/03/2017 3:45 PM EST Tech Visit [place] [address] Arabella Sears MD [facility] DR [place] [address] Chest pain, unspecified type Social History Tobacco [...] Sears MD - 08/03/2017 3:45 PM EST BKLQC-JHUPZ-MIMF WIRELESS pH CAPSULE STUDY AFTER UPPER ENDOSCOPY Yung Betancur [address] [facility] [address] : 1955 STUDY DATE: 07/31/2017 PROVIDER: Arabella Sears MD ([id number]) INDICATION Chest pain Note that this study [...] 14.72) Day One Calculated DeMeester Score: 0.6 Sgeaw-Rvaiw-Hoow (Total) Fraction of Time with pH Less Than 4%: 0.2 Ztpub-Bphpn-Uhhv DeMeester Score (Total): 1.1 Day One Symptoms Association Probability (SAP) for Heartburn: 0 Chest pain: 0 Cough: 73.1 Regurgitation: 83.9 Nausea: 0 Day Two SAP for Heartburn: 70.3 Tcovg-Rgwfn-Phuf SAP for Heartburn: 0 Chest pain: 0 [...] Sears MD Section of Gastroenterology and Hepatology [facility] [place] [address] V: [phone] F: [phone] CC/EC: PCP documented in this encounter Plan of Treatment Upcoming Encounters Date Type Department Care Team (Late st Contact Info) Description 02/22/2024 11:40 AM EDT Office [place] [address] Manoj Vinson MD [facility] [place] [address] documented as of this encounter Visit Diagnoses Diagnosis Chest pain, unspecified type documented in this encounter Care Teams Furnace Combination Analyst Relationship Specialty Start Date End Date Yung Horn MD [facility] [place] [address] [place] [address] PCP - General 11/22/16 documented as of this encounter
--- OUTSIDE RECORDS SUMMARY | 2024-02-21 09:31 | XMS_ITS | Encounter Summary ---
[place] [address] Care Team Providers Care Steam Cleaning Machine Operator Name Role Phone Yung Horn MD Primary Care Provider [phone] Encounter Details Date Type Department Care Team (Latest Contact Info) Description 02/11/2021 4:02 PM EDT - 02/11/2021 11:59 PM EDT Hospital [place] [address] Discharge Disposition: Home Social History Tobacco Use [...] % Cream Apply twice a day 11/09/2020 dulaglutide (Trulicity) 0.75 mg/0.5 mL Pen Injector [...] Take 81 mg by mouth Daily. 07/29/2021 [employer] ULTRA2 Kit TEST BLOOD GLUCOSE WITH ALL [...] 11:40 AM EDT [place] [address] Manoj Vinson MD [facility] [place] [address] documented as of this encounter Procedures Procedure Name Priority Date/Time Associated Diagnosis Comments SURGICAL PATHOLOGY REPORT Routine 02/11/2021 4:05 PM EDT documented in this encounter Results * Surgical Pathology Report (02/11/2021 4:05 PM EDT) Final Diagnosis [id number] ? Location: [facility] The signing pathologist has (i) examined the relevant preparation(s) for the specimen(s) and (ii) rendered or confirmed the diagnosis(es). . ?Surgical Pathology DIAGNOSIS CONSULTATION CASE Outside slide(s) labeled [id number], collection date 12/22/2020. 1 - Gallbladder, cholecystectomy: - Chronic cholecystitis and cholelithiasis. 2 - Liver, wedge ??biopsy: - Subcapsular liver tissue with cautery artifact and ?sinusoidal ??dilatation, negative for steatosis or inflammation. Electronically signed by: ?Leroy Sparks MD Verified: ??02/15/2021 14:34 ??Pathologist Performed at: ??-[facility] Dept. of Pathology, [place], [place] SPECIMEN(S) SUBMITTED CONSULTATION CASE A - 2 slide(s) labeled [id number], collection date 12/22/2020. [id number] Report to: [facility] Surgical Pathology Department [facility], [address]nd Floor [address] [place] [address] ??[id number] CLINICAL INFORMATION _. SPECIMEN PROCESSING [facility] ([facility]) pathology slide(s) are reviewed. ??Refer to Diagnosis and Specimen Submitted for specific case information. For the full text of the [facility] report(s) please refer to Non- Documentation Pathology in the electronic health record (eDH). 02/15/2021 2:34 PM EDT [facility] Consult Case 02/11/2021 4:05 PM EDT 02/11/2021 4:05 PM EDT Tatiana Call CONFIGURATION TECHNICIAN PATHOLOGY/CYTOLOGY ORDERABLES [facility] [place] [address] documented in this encounter Visit Diagnoses Not on filedocumented in this encounter Care Teams Steam Cleaning Machine Operator Relationship Specialty Start Date End Date Yung Horn MD [facility] [address] [place] [address] PCP - General 11/22/16 documented as of this encounter
--- OUTSIDE RECORDS SUMMARY | 2024-02-21 09:31 | XMS_ITS | Encounter Summary ---
Author Organization [facility] Address [facility] [place] [address] Care Team Providers Care Drum Carrier Name Role Phone Yung Horn MD Primary Care Provider [phone] Encounter Details Date Type Department Care Team (Latest Contact Info) Description 09/24/2018 7:18 AM EDT - 09/24/2018 11:59 PM EDT Hospital Encounter XRay at [address] [place] [address] Robert Ramos MD [facility] [place] [address] Dysphagia, unspecified type Discharge Disposition: Home Social [...] daily (with meals). One tablet per day magnesium oxide (MAG-OX) 400 mg (241.3 mg magnesium) Tablet TAKE 1 TABLET BY MOUTH DAILY 3 09/01/2018 07/29/2021 risperiDONE (RISPERDAL) 0.5 mg Tablet TAKE 1 TABLET BY MOUTH AT BEDTIME 1 07/13/2018 12/25/2019 aspirin 81 mg Tablet, Chewable Take 81 mg by mouth Daily. 07/29/2021 [employer] ULTRA2 Kit TEST BLOOD GLUCOSE WITH ALL [...] mouth daily. 90 tablet 3 06/27/2017 12/17/2018 glipiZIDE (GLUCOTROL) 5 mg Tablet 10 mg 0 03/31/2017 02/01/2024 meTOPROLOL succinate (TOPROL-XL) 25 mg Tablet Sustained Release 24 hr take 1 tablet by mouth once daily 0 05/09/2017 12/25/2019 PARoxetine (PAXIL) 30 mg TabletIndications:anxi ety with depression Take 30 mg by mouth every morning. Indications: Anxiety with Depression 12/25/2019 ferrous sulfate 324 mg (65 mg iron) [...] 11:40 AM EDT [place] [address] Manoj Vinson MD [facility] [place] [address] documented as of this encounter Procedures Procedure [...] below. ? Electronically signed by: Rossana Mancilla [facility] ([phone]), at 09/24/2018 11:22 AM Narrative 09/24/2018 11:22 AM EDT EXAMINATION: XR FLUORO UPPER GI DOUBLE CONTRAST WWO DELAYED FILMS W/KUB CLINICAL HISTORY: Dysphagia s/p gastric bypass, with hx of sliding hiatal hernia and reflux TECHNIQUE: Double contrast UGI was performed. Fluoroscopic spot films were obtained. Fluoro time: 1.75 minutes COMPARISON: 06/27/2017 FINDINGS: The initial abdominal military nurse view shows vascular clips in LEFT midabdomen [...] minutes COMPARISON: 06/27/2017 FINDINGS: The initial abdominal military nurse view shows vascular clips in LEFT midabdomenand [...] this report, please contact the number below. Robert Arteaga MD IMG FLUORO ORDER GLEN documented in this encounter Visit Diagnoses Diagnosis Dysphagia, unspecified type documented in this encounter Administered Medications Inactive [...] mLs documented in this encounter Care Teams Drum Carrier Relationship Specialty Start Date End Date Yung Horn MD [address] [place] [address] PCP - General 11/22/16 documented as of this encounter
--- OUTSIDE RECORDS SUMMARY | 2024-02-21 09:31 | XMS_ITS | Encounter Summary ---
Author Organization [facility] [place] [address] Care Team Providers Care Unclaimed Property Manager Name Role Phone Yung Horn MD Primary Care Provider [phone] Reason for Visit * Reason Comments Medication Refill Encounter Details Date Type Department Care Team (Late st Contact Info) Description 07/09/2021 Refill [place] [address] Tatiana Call APRN [facility] [place] [address] HERR (nonalcoholic steatohepatitis) Social History Tobacco Use [...] 11:40 AM EDT Office [place] [address] Manoj Vinson MD [facility] [address] documented as of this encounter Visit Diagnoses Diagnosis HERR (nonalcoholic steatohepatitis) Other chronic nonalcoholic liver disease documented in this encounter Care Teams Unclaimed Property Manager Relationship Specialty Start Date End Date Yung Horn MD [address] [place] [address] PCP - General 11/22/16 documented as of this encounter
--- OUTSIDE RECORDS SUMMARY | 2024-02-21 09:32 | XMS_ITS | Encounter Summary ---
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 05/26/2017 7:31 PM EST Narrative Resulting Agency Comment Spec In Lab Rei Vines MD CHEMISTRY ORDERABLES [facility] [place] [address] * Differential, Automated (05/26/2017 6:00 PM EST) Neutrophil % 65.5 % [facility] Neutrophil Absolute 3.36 1.70 - 6.10 x10(3)/[facility] LABORATORY Lymph % 25.1 % [facility] Lymphocytes Abs 1.3 0.9 - 3.2 x10(3)/[facility] LABORATORY Monocyte % 7.8 % [facility] Monocyte Abs 0.4 0.3 - 0.9 x10(3)/[facility] LABORATORY Eos % 1.0 % [facility] Eosinophils Abs 0.0 0.0 - 0.4 x10(3)/[facility] LABORATORY Basophil % 0.4 % [facility] Baso Absolute 0.0 0.0 - 0.1 x10(3)/[facility] LABORATORY Immature Gran % 0.20 % [facility] Comment: Immature granulocytes(IG's)percentage and absolute count will include metamyelocytes, myelocytes, and promyelocytes. Blood smears from CBCs yielding IG's will be scanned manually for concordance. If this scan disagrees with the automated IG or if promyelocytes are noted, a manual differential will be performed. Immature Gran Absolute 0.01 0.00 - 0.04 x10(3)/[facility] LABORATORY Blood specimen (specimen) 05/26/2017 6:00 PM EST 05/26/2017 6:07 PM EST Narrative Resulting Agency Comment Spec In Lab Rei Vines MD HEMATOLOGY ORDERABLE S [facility] [place] [address] * (ABNORMAL) Hemogram (05/26/2017 6:00 PM EST) White Blood Cell 5.1 4.0 - 9.5 x10(3)/ L [facility] Red Blood Cell 3.96(L) 4.58 - 5.54 x10(6)/ L [facility] Hemoglobin 10.7(L) 13.7 - 16.5 gm/dL [facility] Hematocrit 32.9(L) 40.5 - 48.5 % [facility] Mean Cell Volume 83.1 82.9 - 93.1 fL [facility] Mean Cell Hemoglobin 27.0(L) 27.5 - 32.1 pg [facility] Mean Cell Hemoglobin Concentration 32.5 32.0 - 35.7 gm/dL [facility] Platelet 151 145 - 357 x10(3)/mc L [facility] RDW Standard Deviation 42.3 36.0 - 45.0 fL [facility] RDW coefficient of variation 14.1(H) 11.4 - 13.8 % [facility] Mean Platelet Volume 10.3 7.6 - 12.9 [facility] LABORATORY NRBC% auto 0.0 % [facility] NRBC Absolute 0.000 0.000 - 0.000 x10(3)/mc L [facility] Blood specimen (specimen) 05/26/2017 6:00 PM EST 05/26/2017 6:07 PM EST Narrative Resulting Agency Comment Spec In Lab Rei Vines MD HEMATOLOGY ORDERABLE S [facility] [place] [address] * (ABNORMAL) APTT (05/26/2017 6:00 PM EST) [facility] Partial Thromboplastin Time 43(H) 25 - 35 sec [facility] Comment: The recommended therapeutic range for full dose, unfractionated heparin at [facility] is 80 ? 114 seconds. The use of the anti-Xa (heparin) level rather than the PTT is recommended for monitoring anticoagulation intensity in critically ill patients receiving unfractionated heparin by continuous IV infusion. Blood specimen (specimen) 05/26/2017 6:00 PM EST 05/26/2017 6:07 PM EST Narrative Resulting Agency Comment Spec In Lab Rei Vines MD HEMATOLOGY ORDERABLE S Performing Organization Address City/[facility]/ZIP Co de Phone Number [facility] [place] [address] * (ABNORMAL) Cardiac Enzymes (LEB/CGP) (05/26/2017 6:00 PM EST) [facility] Troponin-T <0.01 0.00 - 0.00 ng/mL [facility] Comment: The 99th percentile for Troponin T is less than 0.01 ng/mL, any detectable cTnT concentration using this assay should be considered elevated. According to the third universal definition of myocardial infarction the following criteria with a clinical presentation consistent with acute myocardial ischemia meets the diagnosis for a myocardial infarction (PR). Detection of a rise and/or fall of cTnT, with at least one value greater than the 99th percentile (> or = 0.01) and with at least one of the following ?? Symptoms of ischemia ?? New or presumed new significant [id number] wave (ST-T) changes or new left bundle [...] additional sample may be indicated. Reference: Third [place] Definition of Myocardial Infarction. Journal of the [place] College [employer] 2012;60:1581-98 Creatine Kinase 389(H) 0 - 200 unit/L [facility] Blood specimen (specimen) 05/26/2017 6:00 PM EST 05/26/2017 6:07 PM EST Narrative Resulting Agency Comment Spec In Lab Rei Vines MD CHEMISTRY ORDERABLES [facility] [place] [address] * POCT Glucose (05/26/2017 5:07 PM EST) [facility] Glucose, POC 143 65 - 199 mg/dL [facility] Comment: Supplemental ranges: <140 mg/dL before meals <180 mg/dL all other times of the day Blood specimen (specimen) 05/26/2017 5:07 PM EST 05/26/2017 5:07 PM EST Rei Vines MD POINT OF CARE TEST O RDERABLES Performing Organization Address City/[facility] Co de Phone Number [facility] [place] [address] * EKG 12 Lead (05/26/2017 4:14 PM EST) Ventricular rate 56 BPM MUSE SYSTEM Atrial Rate 56 BPM MUSE SYSTEM P-R Interval 162 ms MUSE SYSTEM QRS Duration 90 ms MUSE SYSTEM Q-T Interval 426 ms MUSE SYSTEM QTC Calculated (Bezet) 411 ms MUSE SYSTEM Calculated P [place] 58 degrees MUSE SYSTEM Calculated R [place] 12 degrees MUSE SYSTEM Calculated T [place] 27 degrees MUSE SYSTEM INTERPRETATION Sinus bradycardia Otherwise normal ECG No previous ECGs available Confirmed by MD EZ, REI ([id number]) on 05/27/2017 11:23:33 AM MUSE SYSTEM 05/26/2017 4:14 PM EST 05/27/2017 11:23 AM EST Rei Vines MD ECG ORDERABLES Performing Organization Address [facility] Co de Phone Number MUSE SYSTEM * SCAN DOC: CLINICAL EDUCATOR (05/26/2017 12:00 AM EST) Anatomical Region Laterality [...] Mon05/26/17 at 1811, MAVIS FRENCH: cabinet override Rate/Dose Change 05/26/2017 4:25 PM [...] (Given - Provider: Mavis French RN) 1505 (MAR Hold - Provider: Admin Adt [...] STAT 1804 (Given - Provider: Mavis French, RN) enoxaparin (LOVENOX) injection 40 mg 40 mg, Subcutaneous, NIGHTLY, First dose on Mon05/26/17 at 2330, Until Discontinued, Routine 0045 (Given - Provider: Amber Olsen RN)1505 (SEP Hold - Provider: Admin Adt - Reason: Transfer to a Procedural area)173 (SEP Unhold - Provider: Admin Adt)2039 (Given - Provider: Ana Laura Carson, MATEO) insulin lispro (humaLOG) VIAL injection 1-4 Units(Linked [...] Admin Adt)1733 (SEP Unhold - Provider: Admin Adt)2040 (Given - Provider: Ana Laura Carson RN) 0008 (Given - Provider: Naz Mathias RN)0415 (Given - Provider: Naz Mathias, RN)0800 [...] Reason: Transfer to a Procedural area)1733 ([facility] Unhold - Provider: Admin Adt) 0911 (Given - Provider: Antonina Ty RN) meTOPROLOL succinate (TOPROL-XL) XL tablet 25 mg 25 mg, Oral, DAILY, First dose on Mon05/26/17 at 1800, Until Discontinued, DO NOT CRUSH OR OPEN Hold for HR < 55 or SBP < 100, Routine 1802 (Given - Provider: Mavis French RN) 0842 (Given - Provider: Shakira Manzano RN)1505 ([facility] Hold - Provider: Admin Adt - Reason: Transfer to a Procedural area)1733 ([facility] Unhold - Provider: Admin Adt) 0911 (Given - Provider: Antonina Ty, MATEO) pantoprazole (PROTONIX) tablet 40 mg 40 mg, Oral, DAILY, First dose on Mon05/27/17 at 0900, Until Discontinued 0842 (Given - Provider: Shakira Manzano RN)1505 ([facility] Hold - Provider: Admin Adt - Reason: Transfer to a Procedural area)1733 ([facility] Unhold - Provider: Admin Adt) 0910 (Given - Provider: Antonina Ty, MATEO) PARoxetine (PAXIL) tablet 30 mg 30 mg, Oral, DAILY, First dose on 05/27/17 at 0900, Until Discontinued, Routine 0842 (Given - Provider: Shakira Manzano RN)1505 ([facility] Hold - Provider: Admin Adt - Reason: Transfer to a Procedural area)1733 (SEP Unhold - Provider: Admin Adt) 0950 (Given - Provider: Antonina Ty, MATEO) sodium chloride 0.9 % flush 5 mL 5 mL, Intravenous, 2 TIMES DAILY, First dose on Mon05/26/17 at 2100, Until Discontinued, Routine 2037 (Given - Provider: Amber Olsen RN) 0848 (Given - Provider: Shakira Manzano, MATEO)1505 (SEP Hold - Provider: Admin Adt - Reason: Transfer to a Procedural area)1733 (SEP Unhold - Provider: Admin Adt)204 (Given - Provider: Ana Laura Carson RN) [...] of the active insulin., Routine 1505 ([facility] Hold - Provider: Admin Adt - Reason: Transfer to a Procedural area)1733 ([facility] Unhold - Provider: Admin Adt) fentaNYL [...] of the active insulin., Routine 1505 ([facility] Hold - Provider: Admin Adt - Reason: Transfer to a Procedural area)1733 ([facility] Unhold - Provider: Admin Adt) [...] Subcutaneous, ONCE PRN, 1 dose, Starting on 05/26/17 at 1737, Until 05/28/17 at 1545, for [...] Routine documented in this encounter Care Teams Patient Financial Specialist Relationship Specialty Start Date End Date Yung Horn MD [address] [place] [address] PCP - General 11/22/16 documented as of this encounter
--- OUTSIDE RECORDS SUMMARY | 2024-02-21 09:32 | XMS_ITS | Encounter Summary ---
[place] [address] Care Team Providers Care Air Chief Marshal Name Role Phone Yung Horn MD Primary Care Provider [phone] Encounter Details Date Type Department Care Team (Late st Contact Info) Description 05/25/2017 External [place] [address] Yevgeniy Ramos MD [facility] [place] [address] Social History Tobacco Use Types Packs/Day Years [...] 11:40 AM EDT [place] [phone] Manoj Vinson MD [facility] [place] [address] documented as of this encounter Procedures Procedure Name Priority Date/Time Associated Diagnosis Comments ECG SCAN Routine 05/25/2017 documented in this encounter Results * Scan Doc: ECG (05/25/2017) Yevgeniy Ramos MD MEDIA MGR SCAN EXT O RDR/RSLT documented in this encounter Visit Diagnoses Not on filedocumented in this encounter Care Teams Air Chief Marshal Relationship Specialty Start Date End Date Yung Horn MD [address] [place] [address] PCP - General 11/22/16 documented as of this encounter
--- OUTSIDE RECORDS SUMMARY | 2024-02-21 09:32 | XMS_ITS | Encounter Summary ---
Author Organization [facility] [place] [address] Care Team Providers Care Counter Dish Carrier Name Role Phone Yung Horn MD Primary Care Provider [phone] Reason for Visit * Auth/Cert Specialty Diagnoses / Procedures Referred By Contac t Referred To Contact Diagnoses nccp Procedures PRO UPPER GI ENDOSCOPY, DIAGNOSTIC EGD, UPPER GI ENDOSCOPY Referral ID Status Reason Start Date Expiration Date Visits Re quested Visits Authorized [id number] 1 1 Encounter Details Date Type Department Care Team (Latest Contact Info) Description 07/31/2017 1:00 PM EST Procedure [place] [address] Gastroesophageal reflux disease, esophagitis presence not specified [...] of Seth procedure and use of the family consumer science fcs teacher. documented in this encounter Plan of Treatment Upcoming Encounters Date Type Department Care Team (Late st Contact Info) Description 02/22/2024 11:40 AM EDT [place] [address] Manoj Vinson MD [facility] [place] [address] documented as of this encounter Visit Diagnoses Diagnosis Gastroesophageal reflux disease, esophagitis presence not specified documented in this encounter Care Teams Counter Dish Carrier Relationship Specialty Start Date End Date Yung Horn MD [address] [place] [address] PCP - General 11/22/16 documented as of this encounter
--- OUTSIDE RECORDS SUMMARY | 2024-02-21 09:32 | XMS_ITS | Encounter Summary ---
Author Organization [facility] [place] [address] Care Team Providers Care Conversion Developer Name Role Phone Yung Horn MD Primary Care Provider [phone] Encounter Details Date Type Department Care Team (Latest Contact Info) Description 04/10/2017 - 04/10/2017 12:04 AM EDT Hospital Encounter [place] [address] Puneet Vines MD [facility] [place] [address] Discharge Disposition: Home Social History Tobacco Use [...] mg Tablet 10 mg 0 03/31/2017 02/01/2024 metFORMIN (GLUCOPHAGE) 1,000 mg Tablet 0 03/31/2017 [...] 11:40 AM EDT [place] [address] Manoj Vinson MD [facility] [place] [address] documented as of this encounter Procedures Procedure Name Priority Date/Time Associated Diagnosis Comments FILM LIBRARY STORAGE ONLY CT CHEST Routine 04/10/2017 12:00 AM EDT documented in this encounter Results * Film Library- Storage Only CT Chest (04/10/2017 12:00 AM EDT) Narrative [facility] - 05/26/2017 3:00 PM EST This exam is for storage only and is auto-finalizing. Puneet Vines MD IMG FILM LIBRARY ORD ERABLES [place], [place] documented in this encounter Visit Diagnoses Not on filedocumented in this encounter Care Teams Conversion Developer Relationship Specialty Start Date End Date Yung Horn MD [address] [place] [address] PCP - General 11/22/16 documented as of this encounter
--- OUTSIDE RECORDS SUMMARY | 2024-02-21 09:32 | XMS_ITS | Encounter Summary ---
Author Organization [facility] Dorothy joshlaur[place] [id number] Care Team Providers Care Sewage Plant Attendant Name Role Phone Yung Horn MD Primary Care Provider [phone] Reason for Referral * Diagnostic Test (Routine) - Closed Specialty Diagnoses / Procedures Referred By Contac t Referred To Contact Radiology Diagnoses Non-cardiac chest pain Procedures XR Fluoro Barium Swallow Thalia Harper APRN [facility] [place] [address] [facility] [address] [place] [address] [place] [address] Referral ID Status Reason Start Date Expiration Date V isits Requested Visits Authorized [id number] Closed Specialty Service Requested 06/27/2017 06/27/2018 1 1 Reason for Visit * Diagnostic Test (Routine) - Closed Specialty Diagnoses / Procedures Referred By Contac t Referred To Contact Radiology Diagnoses Non-cardiac chest pain Procedures XR Fluoro Barium Swallow Thalia Harper APRN [facility] [place] [address] [facility] Rad Xray [address] [place] [address] [place] [address] Referral ID Status Reason Start Date Expiration Date V isits Requested Visits Authorized [id number] Closed Specialty Service Requested 06/27/2017 06/27/2018 1 1 Encounter Details Date Type Department Care Team (Latest Contact Info) Description 06/27/2017 11:00 AM EST - 06/27/2017 11:59 PM EST Hospital Encounter XRay at [address] [place] [address] [facility] GASTRO[facility]OLOG[facility] [place]PT. [place] [id number] Non-cardiac chest pain Discharge Disposition: Home Social [...] daily (with meals). One tablet per day venlafaxine (EFFEXOR-XR) 150 mg Capsule, Sust. Release [...] 11:40 AM EDT Office [place] [address] [facility] [place] [address] documented as of this encounter Procedures Procedure [...] Astrid Salguero Radiology, at108/30/2016 10:04 AM Thalia Harper MILITARY NURSE IMG FLUORO ORDERABLE S documented in this encounter Visit Diagnoses Diagnosis Non-cardiac chest pain Other chest pain documented in this encounter Administered Medications Inactive [...] mLs documented in this encounter Care Teams Sewage Plant Attendant Relationship Specialty Start Date End Date Yung Horn MD [address] [place] [address] PCP - General 11/22/16 documented as of this encounter
--- OUTSIDE RECORDS SUMMARY | 2024-02-21 09:32 | XMS_ITS | Encounter Summary ---
Author Organization [facility] [place] [address] Care Team Providers Care Retail Performance Coach Name Role Phone Yung Horn MD Primary Care Provider [phone] Encounter Details Date Type Department Care Team (Late st Contact Info) Description 06/13/2017 Orders Only [place] [address] Tyson Cramer PA [facility] EMERGENCY [place] [address] Social History Tobacco Use Types Packs/Day Years [...] 11:40 AM EDT [place] [address] Manoj Vinson MD [facility] [place] [address] documented as of this encounter Visit Diagnoses Not on filedocumented in this encounter Care Teams Retail Performance Coach Relationship Specialty Start Date End Date Yung Horn MD [address] [place] [address] PCP - General 11/22/16 documented as of this encounter
--- OUTSIDE RECORDS SUMMARY | 2024-02-21 09:32 | XMS_ITS | Encounter Summary ---
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 LABORATORY Immature Gran % 0.20 % [facility] Comment: Immature granulocytes(IG's)percentage and absolute count will include metamyelocytes, myelocytes, and promyelocytes. Blood smears from CBCs yielding IG's will be scanned manually for concordance. If this scan disagrees with the automated IG or if promyelocytes are noted, a manual differential will be performed. Immature Gran Absolute 0.01 0.00 - 0.04 x10(3)/[facility] LABORATORY Blood specimen (specimen) 05/26/2017 6:00 PM EST 05/26/2017 6:07 PM EST Narrative Resulting Agency Comment Spec In Lab Rei Vines MD HEMATOLOGY ORDERABLE S [facility] [place] [address] * (ABNORMAL) Hemogram (05/26/2017 6:00 PM EST) White Blood Cell 5.1 4.0 - 9.5 x10(3)/[facility] LABORATORY Red Blood Cell 3.96(L) 4.58 - 5.54 x10(6)/[facility] LABORATORY Hemoglobin 10.7(L) 13.7 - 16.5 gm/dL [facility] Hematocrit 32.9(L) 40.5 - 48.5 % [facility] Mean Cell Volume 83.1 82.9 - 93.1 fL [facility] Mean Cell Hemoglobin 27.0(L) 27.5 - 32.1 pg [facility] Mean Cell Hemoglobin Concentration 32.5 32.0 - 35.7 gm/dL [facility] Platelet 151 145 - 357 x10(3)/[facility] LABORATORY RDW Standard Deviation 42.3 36.0 - 45.0 [facility] LABORATORY RDW coefficient of variation 14.1(H) 11.4 - 13.8 % [facility] Mean Platelet Volume 10.3 7.6 - 12.9 [facility] LABORATORY NRBC% auto 0.0 % [facility] LAB[facility]ATORY NRBC Absolute 0.000 0.000 - 0.000 x10(3)/[facility] LABORATORY Blood specimen (specimen) 05/26/2017 6:00 PM EST 05/26/2017 6:07 PM EST Narrative Resulting Agency Comment Spec In Lab Rei Vines MD HEMATOLOGY ORDERABLE S Performing Organization Address City/[facility]/ZIP Co de Phone Number [facility] [place] [address] * (ABNORMAL) APTT (05/26/2017 6:00 PM EST) Partial Thromboplastin Time 43(H) 25 - 35 sec [facility] Comment: The recommended therapeutic range for full dose, unfractionated heparin at [facility] is 80 ? 114 seconds. The use of the anti-Xa (heparin) level rather than the PTT is recommended for monitoring anticoagulation intensity in critically ill patients receiving unfractionated heparin by continuous IV infusion. Blood specimen (specimen) 05/26/2017 6:00 PM EST 05/26/2017 6:07 PM EST Narrative Resulting Agency Comment Spec In Lab Rei Vines MD HEMATOLOGY ORDERABLE S Performing Organization Address [facility]/ZIP Co de Phone Number [facility] [place] [address] * (ABNORMAL) Cardiac Enzymes (LEB/CGP) (05/26/2017 6:00 PM EST) [facility] Troponin-T <0.01 0.00 - 0.00 ng/mL [facility] Comment: The 99th percentile [...] ischemia ?? New or presumed new significant PP-ysuperd-B wave (ST-T) changes or new left bundle [...] additional sample may be indicated. Reference: [place] Definition of Myocardial Infarction. Journal of the [place] [employer] 2012;60:1581-98 Creatine Kinase 389(H) 0 - 200 unit/L [facility] Blood specimen (specimen) 05/26/2017 6:00 PM EST 05/26/2017 6:07 PM EST Narrative Resulting Agency Comment Spec In Lab Rei Vines MD CHEMISTRY ORDERABLES Performing Organization Address [facility]/ZIP Co de Phone Number [facility] [place] [address] * POCT Glucose (05/26/2017 5:07 PM EST) [facility] Glucose, POC 143 65 - 199 mg/dL [facility] Comment: Supplemental ranges: <140 mg/dL before meals <180 mg/dL all other times of the day Blood specimen (specimen) 05/26/2017 5:07 PM EST 05/26/2017 5:07 PM EST Rei Vines MD POINT OF CARE TEST O RDERABLES Performing Organization Address [facility] Co de Phone Number [facility] [place] [address] * EKG 12 Lead (05/26/2017 4:14 PM EST) Ventricular rate 56 BPM MUSE SYSTEM Atrial Rate 56 BPM MUSE SYSTEM P-R Interval 162 ms MUSE SYSTEM QRS Duration 90 ms MUSE SYSTEM Q-T Interval 426 ms MUSE SYSTEM QTC Calculated (Bezet) 411 ms MUSE SYSTEM Calculated P [place] 58 degrees MUSE SYSTEM Calculated R [place] 12 degrees MUSE SYSTEM Calculated T [place] 27 degrees MUSE SYSTEM INTERPRETATION Sinus bradycardia Otherwise normal ECG No previous ECGs available Confirmed by MD EZ, REI ([id number]) on 05/27/2017 11:23:33 AM MUSE SYSTEM 05/26/2017 4:14 PM EST 05/27/2017 11:23 AM EST Rei Vines MD ECG ORDERABLES MUSE SYSTEM * SCAN DOC: CONTACT LENS MOLDER (05/26/2017 12:00 AM EST) Anatomical Region Laterality Modality Other Narrative 05/26/2017 12:00 AM EST Ordered by an unspecified provider. Scanning Provider MEDIA MGR SCAN EXT O RDR/RSLT documented in this encounter Visit Diagnoses Diagnosis Chest pain, unspecified type Chest pain Chest pain, unspecified documented in [...] (Automatically Held - Provider: Admin Adt)1733 ([facility] Unhold - Provider: Admin Adt) [...] Procedural area)1733 ([facility] Unhold - Provider: Admin Adt)2040 (Given - Provider: Ana Laura Carson, MATEO) [...] Manzano, MATEO)1200 (Not Given - Provider: Shakira Manzano RN - Reason: Contraindicated)1505 ([facility] Hold - Provider: Admin Adt - Reason: Transfer to a Procedural area)1600 (Automatically Held - Provider: Admin Adt)1733 ([facility] Unhold - Provider: Admin Adt)204 (Given - Provider: Ana Laura Carson, MATEO) 0008 (Given - Provider: Naz Mathias RN)0415 (Given - Provider: Naz Mathias RN)0800 (Given - Provider: Antonina Ty, MATEO)1154 (Given - Provider: Antonina Ty, MATEO) lisinopril (PRINIVIL;ZESTRIL) tablet 2.5 mg 2.5 mg, Oral, DAILY, First dose on Mon05/26/17 at 1800, Until Discontinued, Routine 1800 (Hold - Provider: Amber Olsen RN - Reason: Medication not available) 0842 (Given - Provider: Shakira Manzano, MATEO)1505 ([facility] Hold - Provider: Admin Adt - [...] (Given - Provider: Shakira Manzano RN)1505 ([facility] Hold - Provider: Admin Adt - Reason: Transfer to a Procedural area)1733 ([facility] Unhold - Provider: Admin Adt) 0911 (Given - Provider: Antonina Ty RN) pantoprazole (PROTONIX) tablet 40 mg 40 mg, Oral, DAILY, First dose on 05/27/17 at 0900, Until Discontinued 0842 (Given - Provider: Shakira Manzano RN)1505 ([facility] Hold - Provider: Admin Adt - Reason: Transfer to a Procedural area)1733 ([facility] Unhold - Provider: Admin Adt) 0910 (Given - Provider: Antonina Ty RN) PARoxetine (PAXIL) tablet 30 mg 30 mg, Oral, DAILY, First dose on 05/27/17 at 0900, Until Discontinued, Routine 0842 (Given - Provider: Shakira Manzano RN)1505 ([facility] Hold - Provider: Admin Adt - Reason: Transfer to a Procedural area)1733 ([facility] Unhold - Provider: Admin Adt) 0950 (Given - Provider: Antonina Ty RN) sodium chloride 0.9 % flush 5 mL 5 mL, Intravenous, 2 TIMES DAILY, First dose on Mon05/26/17 at 2100, Until Discontinued, Routine 2037 (Given - Provider: Amber Olsen RN) 0848 (Given - Provider: Shakira Manzano RN)1505 ([facility] Hold - Provider: Admin Adt - Reason: Transfer to a Procedural area)1733 ([facility] Unhold - Provider: Admin Adt)2047 [...] area)1733 ([facility] Unhold - Provider: Admin Adt) heparin (porcine) [...] discomfort with PIV insertion, Routine 1505 ([facility] Hold - Provider: Admin Adt - Reason: Transfer to a Procedural area)1733 ([facility] Unhold - Provider: Admin Adt) [...] last 24 to 72 hours., Routine 1505 ([facility] Hold - Provider: Admin Adt - Reason: Transfer to a Procedural area)1733 ([facility] Unhold - Provider: Admin Adt) nitroGLYcerin [...] Intravenous, EVERY 1 MIN PRN, Starting on Mon05/26/17 at 1737, Until 05/28/17 at 1545, flush, Flush pertains to all indwelling lines. Flush per protocol found in the job aid using the link provided on this medication record., Routine 1505 ([facility] Hold - Provider: Admin Adt - Reason: Transfer to a Procedural area)1733 ([facility] Unhold - Provider: Admin Adt) verapamil (ISOPTIN) [...] Routine documented in this encounter Care Teams Technical Maintenance Technician Relationship Specialty Start Date End Date Yung Horn MD [address] [place] [address] PCP - General 11/22/16 documented as of this encounter
--- OUTSIDE RECORDS SUMMARY | 2024-02-21 09:32 | XMS_ITS | Encounter Summary ---
[place] [address] Care Team Providers Care Founder Ceo & President Name Role Phone Yung Horn MD Primary Care Provider [phone] Reason for Visit * Auth/Cert Specialty Diagnoses / Procedures Referred By Contac t Referred To Contact Diagnoses nccp Procedures PRO UPPER GI ENDOSCOPY, DIAGNOSTIC EGD, UPPER GI ENDOSCOPY Referral ID Status Reason Start Date Expiration Date Visits Re quested Visits Authorized [id number] 1 1 Encounter Details Date Type Department Care Team (Latest Contact Info) Description 07/31/2017 10:00 AM EST Procedure visit Gastroenterology at [place] [id number] Non-cardiac chest pain Social History Tobacco Use [...] 11:40 AM EDT Office [place] [address] Manoj Vinson MD [facility] [place] [address] documented as of this encounter Visit Diagnoses Diagnosis Non-cardiac chest pain Other chest pain documented in this encounter Care Teams Founder Ceo & President Relationship Specialty Start Date End Date Yung Horn MD [address] [place] [address] [place] [phone] PCP - General 11/22/16 documented as of this encounter
--- OUTSIDE RECORDS SUMMARY | 2024-02-21 09:32 | XMS_ITS | Encounter Summary ---
Author Organization [facility] [place] [address] Care Team Providers Care Delinquency Counselor Name Role Phone Yung Horn MD Primary Care Provider Reason for Visit * Auth/Cert Specialty Diagnoses / Procedures Referred By Contac t Referred To Contact Diagnoses Chest pain CHEST PAIN NSTEMI Procedures CARDIAC CATHETERIZATION Referral ID Status Reason Start Date Expiration Date Visits Re quested Visits Authorized [id number] 1 1 Encounter Details Date Type Department Care Team (Latest Contact Info) Description 05/25/2017 - 05/25/2017 11:59 PM EST Hospital Encounter [place] [phone] Puneet Vines MD [facility] [place] [address] Discharge Disposition: Home Social History Tobacco Use [...] daily (with meals). One tablet per day atorvastatin (LIPITOR) 80 mg Tablet take 1 tablet by mouth at bedtime 0 05/09/2017 05/28/2017 glipiZIDE (GLUCOTROL) 5 mg Tablet 10 mg [...] 11:40 AM EDT [place] [phone] Manoj Vinson MD [facility] [place] [address] documented as of this encounter Procedures Procedure Name Priority Date/Time Associated Diagnosis Comments FILM LIBRARY STORAGE ONLY DX CHEST Routine 05/25/2017 12:00 AM EST documented in this encounter Results * Film Library- Storage Only DX Chest (05/25/2017 12:00 AM EST) Narrative [facility] - 05/26/2017 2:59 PM EST This exam is for storage only and is auto-finalizing. Puneet Vines MD IMG FILM LIBRARY ORD ERABLES [place], [place] documented in this encounter Visit Diagnoses Not on filedocumented in this encounter Care Teams Delinquency Counselor Relationship Specialty Start Date End Date Yung Horn MD [facility] [place] [address] PCP - General 11/22/16 documented as of this encounter
--- OUTSIDE RECORDS SUMMARY | 2024-02-21 09:32 | XMS_ITS | Encounter Summary ---
[place] [address] Care Team Providers Care Industrial Engineering Intern Name Role Phone Yung Horn MD Primary Care Provider [phone] Reason for Visit * Reason Onset Date Comments Results 06/27/2017 Encounter Details Date Type Department Care Team (Late st Contact Info) Description 06/27/2017 [place]phone [place] [phone] Ori Erickson RN Results Social History Tobacco [...] day. No questions or concerns. Mailed personal community engagement representative form to patient's home address. * [...] 11:40 AM EDT [place] [address] Manoj Vinson MD [facility] [address] documented as of this encounter Visit Diagnoses Not on filedocumented in this encounter Care Teams Industrial Engineering Intern Relationship Specialty Start Date End Date Yung Horn MD [facility] [place] [address] [place] [phone] PCP - General 11/22/16 documented as of this encounter
--- OUTSIDE RECORDS SUMMARY | 2024-02-21 09:32 | XMS_ITS | Encounter Summary ---
Author Organization [facility] Address [facility] [place] [address] Care Team Providers Care Senior Living Sales Counselor Name Role Phone Yung Horn MD Primary Care Provider [phone] Encounter Details Date Type Department Care Team (Late st Contact Info) Description 04/10/2017 [place]phone [place] [phone] Donato Hua MD [facility] [place] [address] Social History Tobacco Use Types Packs/Day Years [...] workup his elevated d-dimer. Donato Hua MD Express Clerk Pager # [phone] documented in this encounter Plan of Treatment Upcoming Encounters Date Type Department Care Team (Late st Contact Info) Description 02/22/2024 11:40 AM EDT [place] [address] Manoj Vinson MD [facility] [place] [address] documented as of this encounter Visit Diagnoses Not on filedocumented in this encounter Care Teams Senior Living Sales Counselor Relationship Specialty Start Date End Date Yung Horn MD [address] [place] [address] PCP - General 11/22/16 documented as of this encounter
--- OUTSIDE RECORDS SUMMARY | 2024-02-21 09:32 | XMS_ITS | Encounter Summary ---
Author Organization [facility] [place] [address] Care Team Providers Care Professor Of Economics Name Role Phone Yung Horn MD Primary Care Provider [phone] Reason for Visit * Reason Comments Shortness of Breath Chest Pain Encounter Details Date Type Department Care Team (Late st Contact Info) Description 06/12/2017 1:44 PM EST - 06/12/2017 4:53 PM EST [place] [address] Lasha Lopez MD [facility] DR EMERGENCY [place] [address] SOB (shortness of breath); Other chest pain; [...] irregular heartbeat. After you call 911, the kitchen operator may tell you to chew 1 [...] Where can you learn more? Visit our [employer] information library at [email or web address]. You can also view health information on Com[employer] Line, your personal patient account. Log in or sign uptoday. Enter S780 in the search box to learn more about Shortness of Breath: Care Instructions. Current as of: November 18, 2016 Content Version: 11.4 ?? [id number] [employer]. Care instructions adapted under license by [facility]. If you have questions about a medical condition or this instruction, always ask your healthcare professional. [employer] disclaims any warranty or liability for your [...] PM EST Pt to and back from Xray, pain 11/16. Pt's at the bed side * Roosevelt Maciel MD - 06/12/2017 2:01 PM EST GRACIA Betancur is a 61 y.o. male with [...] follow-up plan. Roosevelt Maciel MD Resident 06/12/17 8771 Associated attestation - Lasha Lopez MD - [...] 11:40 AM EDT [place] [address] Manoj Vinson MD [facility] [place] [address] documented as of this encounter Procedures Procedure [...] 06/12/2017 2:00 PM EST BASIC METABOLIC PANEL STAT 06/12/2017 2:00 PM EST EKG 12-LEAD [...] PM EST) Lyme IgG IB Negative Negative [facility] Lyme IgG Band(s) No bands [facility] Lyme IgM IB Negative Negative [facility] Lyme IgM Band(s) No bands [facility] Lyme IB Interp Serologic response to B. burgdorferi infection is not detected. [facility] Blood specimen (specimen) No Charge / Unknown 06/12/2017 2:00 PM EST 06/13/2017 7:29 AM EST Narrative Resulting Agency Comment Spec In Lab Roosevelt Maciel MD IMMUNOLOGY ORDERABLE S Performing Organization Address City/[facility]/ZIP Co de Phone Number [facility] [place] [address] * pro-Brain Natriuretic Peptide (06/12/2017 2:00 PM EST) Pathologist [facility] NT-proBNP 72 <=125 pg/mL [facility] Blood specimen (specimen) Venous Draw / Unknown 06/12/2017 2:00 PM EST 06/12/2017 2:17 PM EST Narrative Resulting Agency Comment Spec In Lab Flor Morgan MD CHEMISTRY ORDERABLE S Performing Organization Address City/[facility]/ZIP Co de Phone Number [facility] [place] [address] * (ABNORMAL) Lyme IgG & IgM Antibody (06/12/2017 2:00 PM EST) Lyme Antibody Pos(A) Neg [facility] Lyme Ab Comment Confirmation to follow. [facility] Blood specimen (specimen) No Charge / Unknown 06/12/2017 2:00 PM EST 06/13/2017 7:29 AM EST Narrative Resulting Agency Comment Spec In Lab Flor Morgan MD IMMUNOLOGY ORDERABL ES Performing Organization Address [facility] Phone Number [facility] [place] [place] [address] * (ABNORMAL) D-Dimer, Quantitative (06/12/2017 2:00 PM EST) D-Dimer 829(H) 0 - 500 FEU ng/ml [facility] Comment: The D-Dimer assay is used [...] MD HEMATOLOGY ORDERABL ES Performing Organization Address [facility] Phone Number [facility] [place] [place] [address] * Gold Tube HOLD (06/12/2017 2:00 PM EST) Pathologist [facility] Gold Hold Sample in lab. [facility] Blood specimen (specimen) No Charge / Unknown 06/12/2017 2:00 PM EST 06/12/2017 2:10 PM EST Flor Morgan MD CHEMISTRY ORDERABLE S Performing Organization Address [facility] Co de Phone Number [facility] [place] [address] * (ABNORMAL) Differential, Automated (06/12/2017 2:00 PM EST) Pathologist [facility] Neutrophil % 87.0 % [facility] Neutrophil Absolute 6.11(H) 1.70 - 6.10 x10(3)/[facility] Lymph % 5.7 % [facility] Lymphocytes Abs 0.4(L) 0.9 - 3.2 x10(3)/[facility] Monocyte % 4.6 % [facility] Monocyte Abs 0.3 0.3 - 0.9 x10(3)/[facility] Eos % 2.3 % [facility] Eosinophils Abs 0.2 0.0 - 0.4 x10(3)/[facility] Basophil % 0.1 % [facility] Baso Absolute 0.0 0.0 - 0.1 x10(3)/[facility] Immature Gran % 0.30 % [facility] Comment: Immature granulocytes(IG's)percentage and absolute count will include metamyelocytes, myelocytes, and promyelocytes. Blood smears from CBCs yielding IG's will be scanned manually for concordance. If this scan disagrees with the automated IG or if promyelocytes are noted, a manual differential will be performed. Immature Gran Absolute 0.02 0.00 - 0.04 x10(3)/[facility] Blood specimen (specimen) 06/12/2017 2:00 PM EST 06/12/2017 2:09 PM EST Narrative Resulting Agency Comment Spec In Lab Flor Morgan MD HEMATOLOGY ORDERABL ES [facility] [place] [address] * (ABNORMAL) Hemogram (06/12/2017 2:00 PM EST) Pathologist [facility] White Blood Cell 7.0 4.0 - 9.5 x10(3)/[facility] Red Blood Cell 4.94 4.58 - 5.54 x10(6)/mc L [facility] Hemoglobin 12.9(L) 13.7 - 16.5 gm/dL [facility] Hematocrit 39.6(L) 40.5 - 48.5 % [facility] Mean Cell Volume 80.2(L) 82.9 - 93.1 fL [facility] Mean Cell Hemoglobin 26.1(L) 27.5 - 32.1 pg [facility] Mean Cell Hemoglobin Concentration 32.6 32.0 - 35.7 gm/dL [facility] Platelet 176 145 - 357 x10(3)/mc L [facility] RDW Standard Deviation 40.3 36.0 - 45.0 fL [facility] RDW coefficient of variation 13.8 11.4 - 13.8 % [facility] Mean Platelet Volume 10.4 7.6 - 12.9 fL [facility] NRBC% auto 0.0 % [facility] NRBC Absolute 0.000 0.000 - 0.000 x10(3)/mc L [facility] Blood specimen (specimen) 06/12/2017 2:00 PM EST 06/12/2017 2:09 PM EST Narrative Resulting Agency Comment Spec In Lab Flor Morgan MD HEMATOLOGY ORDERABL ES [facility] [place] [address] * (ABNORMAL) Basic Metabolic Panel (non-fasting) (06/12/2017 2:00 PM EST) Glucose 111 65 - 199 mg/dL [facility] Comment:Diabetes: >=200 mg/d L plus symptoms Blood Urea Nitrogen 23(H) 10 - 20 mg/dL [facility] Creatinine 1.06 0.80 - 1.50 mg/dL [facility] Sodium 140 135 - 145 mmol/L [facility] Potassium 5.1(H) 3.5 - 5.0 mmol/L [facility] Comment: Please note: ??Patients with WBC >100,000 may have falsely elevated Potassium levels. ??For accurate Potassium quantification in these patients send serum separator tube (gold top) for subsequent determinations. ??Contact the Clinical Chemistry Laboratory if there are any questions. Chloride 102 98 - 107 mmol/L [facility] Carbon Dioxide 24 22 - 31 mmol/L [facility] Anion Gap 14 5 - 15 mmol/L [facility] Calcium 8.7 8.5 - 10.5 mg/dL [facility] Est Glomerular Filtration Rate >60 >=60 [facility] Comment: The reported eGFR should be multiplied by 1.2 for patients. The MDRD is not an appropriate measure of renal function for patients with body mass extremes or in patients with acute kidney failure. http://[employer]/DHnkdep http://[employer]/DHMCnkf Blood specimen (specimen) 06/12/2017 2:00 PM EST 06/12/2017 2:09 PM EST Narrative Resulting Agency Comment Spec In Lab Flor Morgan MD CHEMISTRY ORDERABLE S [facility] [place] [place] [address] * Troponin T (06/12/2017 2:00 PM EST) Troponin-T <0.01 0.00 - 0.00 ng/mL [facility] Comment: The 99th percentile [...] ischemia ?? New or presumed new significant HX-yonvwig-Y wave (ST-T) changes or new left bundle [...] additional sample may be indicated. Reference: Third Weldon Definition of Myocardial Infarction. Journal of the [place] College [employer]iology 2012;60:1581-98 Blood specimen (specimen) 06/12/2017 2:00 PM EST 06/12/2017 2:09 PM EST Narrative Resulting Agency Comment Spec In Lab Flor Morgan MD CHEMISTRY ORDERABLE S Performing Organization Address [facility] Co de Phone Number [facility] [place] [address] * Blue Tube HOLD (06/12/2017 2:00 PM EST) Blue Hold Sample in lab. [facility] Blood specimen (specimen) 06/12/2017 2:00 PM EST 06/12/2017 2:09 PM EST Flor Morgan MD HEMATOLOGY ORDERABL ES Performing Organization Address [facility] Co de Phone Number [facility] [place] [address] * EKG 12 Lead (06/12/2017 1:45 PM EST) Ventricular rate 79 BPM MUSE SYSTEM Atrial Rate 79 BPM MUSE SYSTEM P-R Interval 162 ms MUSE SYSTEM QRS Duration 86 ms MUSE SYSTEM Q-T Interval 364 ms MUSE SYSTEM QTC Calculated (Bezet) 417 ms MUSE SYSTEM Calculated P Chalmers 45 degrees MUSE SYSTEM Calculated R Chalmers 1 degrees MUSE SYSTEM Calculated T Chalmers 33 degrees MUSE SYSTEM INTERPRETATION Normal sinus rhythm Normal ECG When compared with ECG of 27-MAY-2017 11:57, Vent. rate has increased BY ??31 BPM Confirmed by MD Sowmya, Scotty Goetz ([id number]) on 06/13/2017 9:06:01 AM MUSE SYSTEM 06/12/2017 1:45 PM EST 06/13/2017 9:06 AM EST Flor Morgan MD ECG ORDERABLES [employer] SYSTEM documented in this encounter Visit Diagnoses Diagnosis SOB (shortness of breath) Shortness of breath Other chest pain Gastroesophageal reflux disease, esophagitis presence not specified Diabetes mellitus without complication Type II or unspecified type diabetes mellitus without mention of complication, not stated as uncontrolled Bariatric surgery status Postsurgical percutaneous transluminal coronary angioplasty status documented in this encounter Care Teams Professor Of Economics Relationship Specialty Start Date End Date Yung Horn MD [address] [place] [address] PCP - General 11/22/16 documented as of this encounter
--- OUTSIDE RECORDS SUMMARY | 2024-02-21 09:32 | XMS_ITS | Encounter Summary ---
Author Organization [facility] [place] [address] Care Team Providers Care Restaurant Delivery Driver Name Role Phone Yung Horn MD Primary Care Provider [phone] Reason for Visit * Auth/Cert Specialty Diagnoses / Procedures Referred By Contac t Referred To Contact Diagnoses nccp Procedures PRO UPPER GI ENDOSCOPY, DIAGNOSTIC EGD, UPPER GI ENDOSCOPY Referral ID Status Reason Start Date Expiration Date Visits Re quested Visits Authorized [id number] 1 1 Encounter Details Date Type Department Care Team (Latest Contact Info) Description 07/31/2017 10:40 AM EST - 07/31/2017 1:32 PM EST Hospital Encounter [place] [address] Chevy Mackenzie MD [facility] [place] [address] Discharge Disposition: Home Social History Tobacco Use [...] - 07/31/2017 12:45 PM EST Please call [phone] before 8pm Mon-Fri with problems, questions or concerns. If you call after 8pm or on weekends, call the Hospital at [phone] and ask to speak to the Drilling Field Specialist personnel coordinator and the tubing machine operator will contact that person for you. Please call [phone] before 8pm Mon-Fri with problems, questions or concerns. If you call after 8pm or on weekends, call the Hospital at [phone] and ask to speak to the Drilling Field Specialist personnel coordinator and the tubing machine operator will contact that person for [...] Other Instructions Be sure to carry your engineering recruiter within 3 feet at all times . [...] better as expected. Monday-Monday Same Day Endo [phone]-[phone] Otherwise contact [phone] and ask to speak to the flooring sales manager personnel coordinator Charline Aaron RN [phone] if any problems with engineering recruiter Follow-up care is a do part of [...] by: Chevy Mackenzie MD Department of Gastroenterology [facility] 07/31/2017 documented in this encounter Plan of Treatment Upcoming Encounters Date Type Department Care Team (Late st Contact Info) Description 02/22/2024 11:40 AM EDT [place] [address] [facility] [place] [address] documented as of this encounter Procedures Procedure Name Priority Date/Time Associated Diagnosis Comments EGD, UPPER GI ENDOSCOPY (WRVU 2.09) 07/31/2017 12:14 PM EST Non-cardiac chest pain UPPER GI ENDOSCOPY Routine 07/31/2017 12 :08 PM EST documented in this encounter Results * UPPER GI ENDOSCOPY (07/31/2017 12:08 PM EST) UPPER GI ENDOSCOPY [facility] Endoscopy Procedure Date: 07/31/2017 12:08 PM ? Patient Name: Yung Betancur ? Date of : 1955 ? Age: 61 ? Order #: [id number] ? Instrument Name: [id number] ? Procedure: ? Upper GI endoscopy Indications: ? Atypical chest pain, history of RYGB Providers: ? Chevy Mackenzie MD, Ermelinda Hanna, ? RN, Keyonna Ramirez, Systems Checkout Mechanic Referring : ?Thalia Chapman MD Medicines: ? Fentanyl 200 micrograms IV, [...] the ? incisors). This was traversed. The dnscz-ua-unrsmgd ? limb was characterized by healthy appearing [...] RN) documented in this encounter Care Teams Restaurant Delivery Driver Relationship Specialty Start Date End Date Yung Horn MD [address] [place] [address] PCP - General 11/22/16 documented as of this encounter
--- OUTSIDE RECORDS SUMMARY | 2024-02-21 09:32 | XMS_ITS | Encounter Summary ---
Author Organization [facility] [place] [address] Care Team Providers Care Seafood Farmer Name Role Phone Yung Horn MD Primary Care Provider [phone] Reason for Referral * Diagnostic Test (Routine) - Closed Specialty Diagnoses / Procedures Referred By Contac t Referred To Contact Radiology Diagnoses Non-cardiac chest pain Procedures XR Fluoro Barium Swallow Thalia Harper APRN [facility] [place] [address] [facility] Rad Xray [address] [place] [address] [place] [address] Referral ID Status Reason Start Date Expiration Date V isits Requested Visits Authorized [id number] Closed Specialty Service Requested 06/27/2017 06/27/2018 1 1 Reason for Visit * Reason Comments GI Problem * Consultation (Routine) - Specialty Diagnoses / Procedures Referred By Contac t Referred To Contact Gastroenterology Diagnoses Chest pain, unspecified type Mariana Holden MD [facility] [place] [address] [facility] Gastro 4[facility] [place] [address] Referral ID Status Reason Start Date Expiration Date V isits Requested Visits Authorized [id number] Specialty Service Requested PCP Updated and/or Approved 05/28/2017 05/28/2018 6 6 Encounter Details Date Type Department Care Team (Late st Contact Info) Description 06/27/2017 10:00 AM EST Office Visit [place] [address] Thalia Harper APRN [facility] [place] [address] Non-cardiac chest pain Social History Tobacco Use [...] AM EST Section of Gastroenterology and Hepatology [address] [place] [address] .Yung Betancur : 1955 Patient is here [...] healthy appearing mucosa. This was ?traversed. The clywr-nv-mbdjgus limb??was ?characterized by healthy appearing mucosa. The ?jejunojejunal anastomosis was characterized by ?healthy appearing mucosa. The bmnditxc-lw-xzsyiuh ?limb was not examined as it could [...] 11:40 AM EDT [place] [address] Manoj Vinson MD [facility] [place] [address] Scheduled Orders Name Type Priority Associated Diagnoses Orde r Schedule UPPER GI ENDOSCOPY Procedures Routine Non-cardiac chest pain Ordered: 06/27/2017 documented as of this encounter Results * [...] by: Astrid Salguero Radiology, at108/30/2016 10:04 AM Tracia O'Mayuri BRIDGE GANG WORKER IMG FLUORO ORDERABLE S documented in this encounter Visit Diagnoses Diagnosis Non-cardiac chest pain Other chest pain Non-cardiac chest pain Other chest pain documented in this encounter Care Teams Seafood Farmer Relationship Specialty Start Date End Date Yung Horn MD [address] [place] [address] PCP - General 11/22/16 documented as of this encounter
--- OUTSIDE RECORDS SUMMARY | 2024-02-21 09:32 | XMS_ITS | Encounter Summary ---
Author Organization [facility] Address [facility] [place] [address] Care Team Providers Care Waiter/Waitress Name Role Phone Yung Horn MD Primary Care Provider [phone] Encounter Details Date Type Department Care Team (Latest Contact Info) Description 04/10/2017 12:05 AM EDT - 04/10/2017 11:59 PM EDT Hospital Encounter [place] [address] Puneet Vines MD [facility] [place] [address] Discharge Disposition: Home Social History Tobacco Use [...] 11:40 AM EDT Office [place] [address] Manoj Vinson MD [facility] [place] [address] documented as of this encounter Procedures Procedure Name Priority Date/Time Associated Diagnosis Comments FILM LIBRARY STORAGE ONLY DX CHEST Routine 04/10/2017 12:05 AM EDT documented in this encounter Results * Film Library- Storage Only DX Chest (04/10/2017 12:05 AM EDT) Narrative RAD - 05/26/2017 3:01 PM EST This exam is for storage only and is auto-finalizing. Punete Vines MD IMG FILM LIBRARY ORD ERABLES [place], [place] documented in this encounter Visit Diagnoses Not on filedocumented in this encounter Care Teams Waiter/Waitress Relationship Specialty Start Date End Date Yung Horn MD [address] [place] [address] PCP - General 11/22/16 documented as of this encounter
--- OUTSIDE RECORDS SUMMARY | 2024-02-21 09:32 | XMS_ITS | Encounter Summary ---
Author Organization [facility] [place] [address] Care Team Providers Care Wood Form Builder Name Role Phone Yung Horn MD Primary Care Provider [phone] Reason for Visit * Auth/Cert Specialty Diagnoses / Procedures Referred By Contac t Referred To Contact Diagnoses nccp Procedures PRO UPPER GI ENDOSCOPY, DIAGNOSTIC EGD, UPPER GI ENDOSCOPY Referral ID Status Reason Start Date Expiration Date Visits Re quested Visits Authorized [id number] 1 1 Encounter Details Date Type Department Care Team (Late st Contact Info) Description 07/31/2017 1:00 PM EST - 07/31/2017 1:30 PM EST Surgery [place] [address] Chevy Mackenzie MD [facility] [place] [address] EGD, UPPER GI ENDOSCOPY (WRVU 2.09) Social [...] - 07/31/2017 12:45 PM EST Please call [phone] before 8pm Mon-Fri with problems, questions or concerns. If you call after 8pm or on weekends, call the Hospital at [phone] and ask to speak to the Rn Trauma educational institution curator and the non licensed operator will contact that person for you. Please call [phone] before 8pm Mon-Fri with problems, questions or concerns. If you call after 8pm or on weekends, call the Hospital at [phone] and ask to speak to the Rn Trauma educational institution curator and the non licensed operator will contact that person for you. [...] Other Instructions Be sure to carry your chronometer tester within 3 feet at all times . [...] WHEN SHOULD YOU CALL FOR HELP? Call [phone] anytime you think that you need emergency [...] better as expected. Monday-Monday Same Day Endo [phone] 7a-8p Otherwise contact [phone] and ask to speak to the nuclear medical technologist educational institution curator Charline Aaron RN [phone] if any problems with chronometer tester Follow-up care is a do part of [...] by: Chevy Mackenzie MD Department of Gastroenterology [facility] 07/31/2017 documented in this encounter Plan of Treatment Upcoming Encounters Date Type Department Care Team (Late st Contact Info) Description 02/22/2024 11:40 AM EDT Office [place] [address] Manoj Vinson MD [facility] [place] [address] documented as of this encounter Procedures Procedure Name Priority Date/Time Associated Diagnosis Comments EGD, UPPER GI ENDOSCOPY (WRVU 2.09) 07/31/2017 12:14 PM EST Non-cardiac chest pain UPPER GI ENDOSCOPY Routine 07/31/2017 12 :08 PM EST documented in this encounter Results * UPPER GI ENDOSCOPY (07/31/2017 12:08 PM EST) UPPER GI ENDOSCOPY [facility] Endoscopy Procedure Date: 07/31/2017 12:08 PM ? Patient Name: Yung Betancur ? Date of : 1955 ? Age: 61 ? Order #: [id number] ? Instrument Name: [id number] ? Procedure: ? Upper GI endoscopy Indications: ? Atypical chest pain, history of RYGB Providers: ? Chevy Mackenzie MD, Ermelinda Hanna, ? RN, Keyonna Ramirez, City Engineer Referring : ?Thalia Chapman MD Medicines: ? [...] the ? incisors). This was traversed. The ulvds-fd-mdgaeyl ? limb was characterized by healthy appearing [...] Ermelinda Hanna RN)1235 (Given - Provider: Ermelinda Hanna, MATEO) midazolam (PF) (VERSED) 1 mg/mL multi-dose injection (CANCELED) ONCE PRN, Starting on Mon07/31/17 at 1219, Until Mon07/31/17 at 1532, Intra-Operative (Intra-Procedure), Routine 1219 (Given - Provid er: Ermelinda Hanna RN)1222 (Given - Provider: Ermelinda Hanna RN)1225 (Given - Provider: Ermelinda Hanna RN)1228 (Given - Provider: Ermelinda Hanna RN)1234 (Given - Provider: Ermelinda Hanna RN) documented in this encounter Care Teams Wood Form Builder Relationship Specialty Start Date End Date Yung Horn MD [facility] [address] [place] [address] PCP - General 11/22/16 documented as of this encounter
--- OUTSIDE RECORDS SUMMARY | 2024-02-21 09:32 | XMS_ITS | Encounter Summary ---
[place] [address] Care Team Providers Care Malted Milk Supervisor Name Role Phone Yung Horn MD Primary Care Provider [phone] Encounter Details Date Type Department Care Team (Late st Contact Info) Description 05/25/2017 Telephone Cardiology at [address] [phone] Yevgeniy Ramos MD [facility] [place] [address] Social History Tobacco Use Types Packs/Day Years [...] PM Referring Provider: Dr. Siegel Patient Location: [facility] HPI per OSH: 61 y/o man who [...] 11:40 AM EDT [place] [address] Manoj Vinson MD [facility] [place] [address] documented as of this encounter Visit Diagnoses Not on filedocumented in this encounter Care Teams Malted Milk Supervisor Relationship Specialty Start Date End Date Yung Horn MD [address] [place] [address] PCP - General 11/22/16 documented as of this encounter
--- OUTSIDE RECORDS SUMMARY | 2024-02-21 09:33 | XMS_ITS | Encounter Summary ---
Author Organization [facility] Address [address] [place] [address] Care Team Providers Care Quality Analyst/Technical Writer Name Role Phone Yung Horn MD Primary Care Provider [phone] Encounter Details Date Type Department Care Team (Late st Contact Info) Description 07/04/2020 Lab Requisition [facility] Pathology & Laboratory Medicine - [address] [address] Outr Resulting Lab, Provider Social History Tobacco [...] Surface Ag Negative Negative 07/06/20 9:56 EST [facility] Hep B Surface Ab, Quantitative <3.1 See Note mIU/mL 07/06/2020 9:56 EST [facility] Comment: Reference Range for Hep B Surface Ab, Quant: Positive: >= 10.0 mIU/mL Negative: ??< 10.0 mIU/mL Patient is presumed to not be immune to infection with Hepatitis B Virus. Hep B Surface Ab, Qualitative Negative See Note 07/06/2020 9:56 EST [facility] Comment: Reference Range for Hep B Surface Ab, Qual: Unvaccinated: ??Negative Vaccinated: ??Positive Hepatitis B Core Ab, Total Negative Negative 07/06/2020 9:56 EST [facility] Hep C Antibody Negative Negative 07/06/2020 9:56 EST [facility] Blood VENOUS BLOOD / Unknown 07/03/2020 5:55 EST 07/04/2020 17:27 EST Provider Outr Resulting Lab CHEMISTRY & BLOOD GAS ORDERABLES Performing Organization Address City/State/[facility] Co de Phone Number [facility] [address] [place] [address] documented in this encounter Visit Diagnoses Not on filedocumented in this encounter Care Teams Quality Analyst/Technical Writer Relationship Specialty Start Date End Date Yung Horn MD [address] [place] [address] PCP - General 01/26/18 documented as of this encounter
--- OUTSIDE RECORDS SUMMARY | 2024-02-21 09:33 | XMS_ITS | Encounter Summary ---
Author Organization [facility] Address [address] [place] [address] Care Team Providers Care Produce Manager Name Role Phone Yung Horn MD Primary Care Provider [phone] Reason for Visit * (Routine/Next Available) - Receiving Office to Obtain Authorization Specialty Diagnoses / Procedures Referred By Marisela ramesh Referred To Contact Procedures CT OUTSIDE IMAGES BODY Imaging, External Referral ID Status Reason Start Date Expiration Date Visits Requested Visits Authorized [id number] Receiving Office to Obtain Authorization 2 1 1 Encounter Details Date Type Department Care Team (Latest Contact Info) Description 04/20/2022 Hospital Encounter [facility] Center [place] Discharge Disposition: Home [...] on filedocumented in this encounter Care Teams Produce Manager Relationship Specialty Start Date End Date Yung Horn [place] [address] [place] [address] PCP - General 01/26/18 documented as of this encounter
--- OUTSIDE RECORDS SUMMARY | 2024-02-21 09:33 | XMS_ITS | Encounter Summary ---
Author Organization [facility] Address [address] [place] [address] Care Team Providers Care Hat Blocking Machine Operator Name Role Phone Yung Horn MD Primary Care Provider [phone] Reason for Visit * (Routine/Next Available) - Receiving Office to Obtain Authorization Specialty Diagnoses / Procedures Referred By Marisela ramesh Referred To Contact Procedures XR OUTSIDE IMAGES MSK Imaging, External Referral ID Status Reason Start Date Expiration Date Visits Requested Visits Authorized [id number] Receiving Office to Obtain Authorization 2 1 1 Encounter Details Date Type Department Care Team (Latest Contact Info) Description 04/20/2022 Hospital Encounter [facility] Center [place] Discharge [...] on filedocumented in this encounter Care Teams Hat Blocking Machine Operator Relationship Specialty Start Date End Date Yung Horn [place] [address] [place] [address] PCP - General 01/26/18 documented as of this encounter
--- OUTSIDE RECORDS SUMMARY | 2024-02-21 09:33 | XMS_ITS | Encounter Summary ---
[facility] [place] [address] Care Team Providers Care Lacquer Polisher Name Role Phone Boston Hernandez MD Primary Care Provider [phone] Reason for Visit * Auth/Cert Specialty Diagnoses / Procedures Referred By Contac t Referred To Contact Diagnoses Iron deficiency anemia, unspecified FE Def Anemia Procedures PRO UPPER GI ENDOSCOPY, DIAGNOSTIC PRO COLONOSCOPY, DIAGNOSTIC EGD, UPPER GI ENDOSCOPY COLONOSCOPY, DIAGNOSTIC Referral ID Status Reason Start Date Expiration Date Visits Re quested Visits Authorized [id number] 1 1 Encounter Details Date Type Department Care Team (Late st Contact Info) Description 08/05/2015 3:00 PM EST - 08/05/2015 4:00 PM EST Surgery [place] [address] Kwan Forte MD [facility] [place] [address] EGD, UPPER GI ENDOSCOPY (WRVU 2.09) Social [...] - 08/05/2015 3:43 PM EST Please call [phone] before 5pm with problems, questions or concerns, after 5pm call the Hospital at [phone] and ask to speak to the Bacon Skinner end user consultant and the ice resurfacing machine operators will contact that person for you. Discharge [...] Everywhere. * EGD (UPPER ENDOSCOPY) : POST-OP (BOLIVIAN) * COLONOSCOPY : POST-OP (BOLIVIAN) documented in this encounter Medications at Time [...] daily (with meals). One tablet per day citalopram (CELEXA) 40 mg Tablet Take 40 [...] 11:40 AM EDT Office Visit Urology at [facility] [place] [address] Manoj Vinson MD [facility] [place] [address] documented as of this encounter Procedures Procedure [...] Surgical Pathology Report (08/05/2015 3:33 PM EST) Final Diagnosis [id number] ? Location: The signing pathologist has (i) [...] inked and bisected. Sections/Process ing: (T1) ??pps 08/07/2015 3:03 PM EST [facility] GI Biopsy 08/05/2015 3:33 PM EST 08/05/2015 3:33 PM EST GI Biopsy 08/05/2015 3:33 PM EST 08/05/2015 3:33 PM EST Kwan Forte MD PATHOLOGY/CYTOLOGY ORDERABLES REPLACED BY [facility] [place] [address] * Specimen to Pathology (surgical or derm) (08/05/2015 3:33 PM EST) AP Specimen 08/05/2015 3:33 PM EST 08/05/2015 3:33 PM EST Narrative [facility] - 08/05/2015 3:33 PM EST Specimen requisition ordered. ??Separate Pathology report to follow Kwan Forte MD PATHOLOGY/CYTOLOGY ORDERABLES Performing Organization Address [facility]/State/ZIP Co de Phone Number [facility] * Specimen to Pathology (surgical or derm) (08/05/2015 3:33 PM EST) AP Specimen 08/05/2015 3:33 PM EST 08/05/2015 3:33 PM EST Narrative [facility] - 08/05/2015 3:33 PM EST Specimen requisition ordered. ??Separate Pathology report to follow Kwan Forte MD PATHOLOGY/CYTOLOGY ORDERABLES Performing Organization Address [facility]/State/ZIP Co de Phone Number [facility] * UPPER GI ENDOSCOPY (08/05/2015 2:52 PM EST) UPPER GI ENDOSCOPY [facility] Endoscopy ___ Patient Name: Yung Betancur ? Procedure Date: 08/05/2015 2:52 PM ? N: [id number] ? Date of : 1955 ? Age: 59 ? Order #: [id number] ? ___ Procedure: ? Upper GI endoscopy Indications: ? Gastrointestinal bleeding Providers: ? Kwan Forte MD, Roosevelt Donnelly ? MATEO Hadley, Dee Dee Lopes, ? Technology Sales Specialist Referring MD: ?Boston Hernandez MD Medicines: ? Midazolam 3.5 [...] appearing mucosa. This was ? traversed. The oozkq-tp-dabpjgc limb was ? characterized by healthy appearing mucosa. The ? jejunojejunal anastomosis was characterized by ? healthy appearing mucosa. The nbhhyqxz-ny-opokvfs ? limb was not examined as it [...] * COLONOSCOPY (08/05/2015 2:52 PM EST) COLONOSCOPY [facility] Endoscopy Patient Name: Yung Betancur ? Procedure Date: 08/05/2015 2:52 PM ? N: [id number] ? Date of : 1955 ? Age: 59 ? Order #: [id number] ? Procedure: ? Colonoscopy Indications: ? Hematochezia Providers: ? Kwan Forte MD, Roosevelt Donnelly ? Leonie, RN, Dee Dee Lopes, ? Technology Sales Specialist Referring MD: ?Boston Hernandez MD Medicines: ? [...] MD GENERAL SURGICAL ORD ERABLES [facility] * POCT Glucose (08/05/2015 2:34 PM EST) Glucose, POC 172 65 - 199 mg/dL [facility] Comment: Supplemental ranges: <140 mg/dL before meals <180 mg/dL all other times of the day Blood specimen (specimen) 08/05/2015 2:34 PM EST 08/05/2015 2:34 PM EST Kwan Forte MD POINT OF CARE TEST ORDERABLES [facility] * POCT Fingerstick Glucose (08/05/2015) Glucose, POC 176 60 - 199 mg/dl 08/05/2015 Kwan [...] RN) documented in this encounter Care Teams Lacquer Polisher Relationship Specialty Start Date End Date Boston Hernandez MD [facility] [address] [place] [address] PCP - General General Internal Medicine 05/27/1511/07 documented as of this encounter
--- OUTSIDE RECORDS SUMMARY | 2024-02-21 09:33 | XMS_ITS | Encounter Summary ---
Author Organization [facility] [place] [address] Care Team Providers Care Game Preserve Manager Name Role Phone Boston Hernandez MD Primary Care Provider [phone] Reason for Visit * Reason Comments Follow Up Surgery Encounter Details Date Type Department Care Team (Late st Contact Info) Description 06/24/2015 1:40 PM EST [place] [address] Ebenezer Patino III, MD [facility] [place] [address] Erectile dysfunction, unspecified erectile dysfunction type Social [...] 11:40 AM EDT [place] [address] Manoj Vinson MD [facility] [place] [address] documented as of this encounter Visit Diagnoses Diagnosis Erectile dysfunction, unspecified erectile dysfunction type documented in this encounter Care Teams Game Preserve Manager Relationship Specialty Start Date End Date Boston Hernandez MD [facility] [address] [place] [address] PCP - General General Internal Medicine 05/27/1511/07 documented as of this encounter
--- OUTSIDE RECORDS SUMMARY | 2024-02-21 09:33 | XMS_ITS | Encounter Summary ---
Author Organization [facility] Address [address] [place] [address] Care Team Providers Care Filtering Machine Tender Helper Name Role Phone Yung Horn MD Primary Care Provider [phone] Encounter Details Date Type Department Care Team (Late st Contact Info) Description 11/02/2021 Lab Requisition [facility] Pathology & Laboratory Medicine - [facility] [address] [place] [address] Matias Bravo MD [address] [place] [phone] Encounter for other general examination Social History [...] Name Priority Date/Time Associated Diagnosis Comments NON INVENTORY ACCOUNTANT/FNA CYTOLOGY Today 11/01/2021 14:30 EDT Encounter for other general examination documented in this encounter Results * NON INVENTORY ACCOUNTANT/FNA CYTOLOGY (11/01/2021 14:30 EDT) Note to Patient The following pathology results have been interpreted by your pathologist and may be available to you before your health provider has had the opportunity to review them. Please allow time for your provider to receive these results and explore management options, if applicable. 11/03/2021 10:44 [facility] Final Diagnosis A. PAROTID GLAND, ULTRASOUND-GUIDE D FINE NEEDLE ASPIRATION: - Benign parotid gland acini present. See comment. 11/03/2021 10:44 [facility] Diagnosis Comment Cytologic evaluation demonstrates groupings of benign serous acinic glands with no cytologic or architectural atypia. There is no definitive evidence of a neoplasm in the current sample. Clinical correlation is recommended to exclude a sampling issue. 11/03/2021 10:44 [facility] Attestation There was significant resident/fellow involvement in the diagnostic evaluation of this case. By the signature below, the attending physician certifies that they have personally conducted a gross and/or microscopic examination of the described specimens and rendered or confirmed the above diagnosis. 11/03/2021 10:44 [facility] at 1044 Clinical History Bilateral parotid masses; H/O alcohol abuse. 11/03/2021 10:44 [facility] Gross Description A. One vial of CytoLyt was received and processed by selective cellular enhancement technique. 11/03/2021 10:44 [facility] Resident/Alexy w: Ivory Mohr MD 11/03/2021 10:44 [facility] Performing Lab [facility] 11/03/2021 10:44 [facility] Scanned Images 11/03/2021 10:44 [facility] Fine Needle Aspirate PAROTID GLAND STRUCTURE / Unknown 11/01/2021 14:30 EDT 11/02/2021 8:20 EDT Matias Bravo MD PATHOLOGY ORDERABLES [facility] [address] [place] [address] documented in this encounter Visit Diagnoses Diagnosis Encounter for other general examination documented in this encounter Care Teams Filtering Machine Tender Helper Relationship Specialty Start Date End Date Yung Horn MD [facility] [place] [place] [address] PCP - General 01/26/18 documented as of this encounter
--- OUTSIDE RECORDS SUMMARY | 2024-02-21 09:33 | XMS_ITS | Encounter Summary ---
Author Organization [facility] Address [address] [place] [address] Care Team Providers Care Bakery Machine Mechanic Supervisor Name Role Phone Yung Horn MD Primary Care Provider [phone] Encounter Details Date Type Department Care Team (Late st Contact Info) Description 07/03/2020 Lab Requisition [facility] Pathology & Laboratory Medicine - [address] [phone] Outr Resulting Lab, Provider Social History Tobacco [...] Lyme Ab Negative Negative 07/06/2020 9:53 EST [facility] Comment:New 3rd generation a ssay in use 12/18/2019 Blood VENOUS BLOOD / Unknown 07/03/2020 12:38 EST 07/04/2020 17:28 EST Provider Outr Resulting Lab IMMUNOLOGY A ND SEROLOGY ORDERABLES [facility] [address] [place] [address] documented in this encounter Visit Diagnoses Not on filedocumented in this encounter Care Teams Bakery Machine Mechanic Supervisor Relationship Specialty Start Date End Date Yung Horn MD [facility] [place] [address] PCP - General 01/26/18 documented as of this encounter
--- OUTSIDE RECORDS SUMMARY | 2024-02-21 09:33 | XMS_ITS | Encounter Summary ---
Author Organization [facility] Address [address] [place] [address] Care Team Providers Care Associate Director Qa Name Role Phone Yung Horn MD Primary Care Provider [phone] Reason for Visit * Reason Comments Knee Pain bilat knee pain dos 2007 Encounter Details Date Type Department Care Team (Latest Contact Info) Description 01/29/2018 13:45 EDT Office Visit [facility] Total Joint Program - [address] [address] Roosevelt Miller MD MSc [facility] [address] [place] [address] Bilateral primary osteoarthritis of knee (Primary [...] Miller MD - 01/29/2018 1345 EDT Yung Horn MD Dear Dr Horn: It was a pleasure to assess Yung in our orthopedic clinic today. 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 He lives with his . He comes in complaining of bilateral knee pain with the right being worse than the left. He is here for a second opinion. He is due to have bilateral total knee replacements in [place] next month by Dr De León. He [...] daily. added in this encounter Care Teams Associate Director Qa Relationship Specialty Start Date End Date Yung Horn MD [facility] [place] [place] [address] PCP - General 01/26/18 documented as of this encounter
--- OUTSIDE RECORDS SUMMARY | 2024-02-21 09:33 | XMS_ITS | Encounter Summary ---
Author Organization [facility] Address [address] [place] [address] Care Team Providers Care Senior Scheduler Name Role Phone Yung Horn MD Primary Care Provider [phone] Encounter Details Date Type Department Care Team (Late st Contact Info) Description 01/29/2018 Results Only Imaging [facility] Total Joint Program - [address] [address] Roosevelt Miller MD MSc FRCSC [address] [place] [address] Social History Tobacco Use Types Packs/Day [...] filedocumented in this encounter Care Teams Senior Scheduler Relationship Specialty Start Date End Date Yung Horn MD [address] [place] [address] PCP - General 01/26/18 documented as of this encounter
--- OUTSIDE RECORDS SUMMARY | 2024-02-21 09:33 | XMS_ITS | Encounter Summary ---
Author Organization [facility] [place] [address] Care Team Providers Care Antique Furniture Restorer Name Role Phone Boston Hernandez MD Primary Care Provider [phone] Reason for Visit * Auth/Cert Specialty Diagnoses / Procedures Referred By Contac t Referred To Contact Diagnoses Iron deficiency anemia, unspecified FE Def Anemia Procedures PRO UPPER GI ENDOSCOPY, DIAGNOSTIC PRO COLONOSCOPY, DIAGNOSTIC EGD, UPPER GI ENDOSCOPY COLONOSCOPY, DIAGNOSTIC Referral ID Status Reason Start Date Expiration Date Visits Re quested Visits Authorized [id number] 1 1 Encounter Details Date Type Department Care Team (Latest Contact Info) Description 08/05/2015 1:35 PM EST - 08/05/2015 3:55 PM EST Hospital Encounter [place] [address] Kwan Forte MD [facility] [place] [address] Discharge Disposition: Home Social History Tobacco Use [...] - 08/05/2015 3:43 PM EST Please call [phone] before 5pm with problems, questions or concerns, after 5pm call the Hospital at [phone] and ask to speak to the Tile Presser transition nurse and the roll up machine operator will contact that person for [...] Everywhere. * EGD (UPPER ENDOSCOPY) : POST-OP (BELIZEAN) * COLONOSCOPY : POST-OP (BELIZEAN) documented in this encounter Medications at Time [...] 11:40 AM EDT Office Visit Urology at [facility] [place] [address] Manoj Vinson MD [facility] [place] [address] documented as of this encounter Procedures Procedure [...] Report (08/05/2015 3:33 PM EST) Final Diagnosis [id number] ? Location: The signing pathologist has (i) [...] ing: (T1) ??pps 08/07/2015 3:03 PM EST [facility] GI Biopsy 08/05/2015 3:33 PM EST 08/05/2015 3:33 PM EST GI Biopsy 08/05/2015 3:33 PM EST 08/05/2015 3:33 PM EST Kwan Forte MD PATHOLOGY/CYTOLOGY ORDERABLES Performing Organization Address [facility]/State/[facility] Co de Phone Number [facility] [place] [address] * Specimen to Pathology (surgical or derm) (08/05/2015 3:33 PM EST) AP Specimen 08/05/2015 3:33 PM EST 08/05/2015 3:33 PM EST Narrative [facility] - 08/05/2015 3:33 PM EST Specimen requisition ordered. ??Separate Pathology report to follow Kwan Forte MD PATHOLOGY/CYTOLOGY ORDERABLES Performing Organization Address [facility]/ZIP Co de Phone Number [facility] * Specimen to Pathology (surgical or derm) (08/05/2015 3:33 PM EST) AP Specimen 08/05/2015 3:33 PM EST 08/05/2015 3:33 PM EST Narrative [facility] - 08/05/2015 3:33 PM EST Specimen requisition ordered. ??Separate Pathology report to follow Kwan Forte MD PATHOLOGY/CYTOLOGY ORDERABLES Performing Organization Address [facility] Co de Phone Number [facility] * UPPER GI ENDOSCOPY (08/05/2015 2:52 PM EST) UPPER GI ENDOSCOPY [facility] Endoscopy ___ Patient Name: Yung Betancur ? Procedure Date: 08/05/2015 2:52 PM ? Date of : 1955 ? Age: 59 ? Order #: [id number] ? ___ Procedure: ? Upper GI endoscopy Indications: ? Gastrointestinal bleeding Providers: ? Kwan Forte MD, Roosevelt Donnelly ? Leonie, MATEO, Dee Dee Lopes, ? Restorer Lace And Textiles Referring : ?Boston Hernandez MD Medicines: ? [...] appearing mucosa. This was ? traversed. The cutgm-if-agxfyfo limb was ? characterized by healthy appearing mucosa. The ? jejunojejunal anastomosis was characterized by ? healthy appearing mucosa. The rhhohsfr-bn-pyouutg ? limb was not examined as it [...] * COLONOSCOPY (08/05/2015 2:52 PM EST) COLONOSCOPY [facility] Endoscopy Patient Name: Yung Betancur ? Procedure Date: 08/05/2015 2:52 PM ? N: [id number] ? Date of : 1955 ? Age: 59 ? Order #: [id number] ? Procedure: ? Colonoscopy Indications: ? Hematochezia Providers: ? Kwan Forte MD, Roosevelt Donnelly ? Leonie, MATEO, Dee Dee Lopes, ? Restorer Lace [employer] Textiles Referring MD: ?Boston Hernandez MD Medicines: ? [...] Glucose, POC 172 65 - 199 mg/dL [facility] Comment: Supplemental ranges: <140 mg/dL before meals [...] RN) documented in this encounter Care Teams Antique Furniture Restorer Relationship Specialty Start Date End Date Boston Hernandez MD [facility] [address] [place] [address] PCP - General General Internal Medicine 05/27/1511/07 documented as of this encounter
--- OUTSIDE RECORDS SUMMARY | 2024-02-21 09:33 | XMS_ITS | Encounter Summary ---
Author Organization [facility] [place] [address] Care Team Providers Care Enterprise Solutions Architect Name Role Phone Boston Hernandez MD Primary Care Provider [phone] Reason for Visit * Auth/Cert Specialty Diagnoses / Procedures Referred By Contac t Referred To Contact Diagnoses ED/PEYRONIE'S Procedures PRO INSERT, INFLATABLE PENILE PROSTHESIS PENILE PROSTHESIS, MULTI-COMPONENT Referral ID Status Reason Start Date Expiration Date Visits Re quested Visits Authorized [id number] 1 1 Encounter Details Date Type Department Care Team (Latest Contact Info) Description 06/09/2015 12:11 PM EST - 06/10/2015 1:52 PM [facility] Hospital Encounter [place] [address] Ebenezer Patino III, MD [facility] [place] [address] Peyronie's disease Discharge Disposition: Home Social History [...] Yung Betancur Patient Age: 59 y.o. Language: Venezuelan Race: White Ethnicity: Not nor Admit date: [...] in the midshaft of the penis. Assessment: Tkubt-nknfp-utty-old gentleman with ED that is likely secondary [...] Hospital Course: Patient was admitted electively to [facility] via the same day surgery program and [...] If you need to brace yourself to picker box operator an object - it is too heavy. [...] more degrees The number for questions is [phone] before 5 PM weekdays and [phone] after 5 PM and weekends. FOLLOW-UP Follow-up appointment will be scheduled with Dr. Pelaez in 2 weeks for a wound check. Appointment will be mailed to you. Please call [phone] (clinic number for appointments) to confirm date and time of your appointment if you do not receive your apointment in 2-3 days. Future Appointments Date Time Provider Department Center 06/24/2015 1:40 PM Ebenezer Patino III, MD [facility] [place] [facility] General Instructions None Future Appointments and Orders Future Appointments Provider Department Dept Phone 06/24/2015 1:40 PM Ebenezer Patino III, MD Urology [phone] Future Orders Complete By Expires Referral to Home Health - at DISCHARGE [MMC0552 CPT(R)] As directed Process Instructions: Scheduling Instructions: Comments: DOCUMENTATION FOR VNA SERVICES (INCLUDING THOSE PATIENTS WITH MEDICARE COVERAGE REQUIRING HOME VNA SERVICES AND/OR HOSPICE SERVICES) PATIENT'S LOCATION: Yung Ro [facility] [phone] (home) Cell: No relevant phone numbers on file. Meat Packer's Name: Tahmina- Spouse In discussion with the attending physician, it is certified that this patient is under their care and that they, or a Nurse Practitioner,Clinical Nurse specialist or Physician Federal District Clerk who is working directly with them, had [...] re health issues HOME HEALTH CARE AGENCY: [facility] PHONE: [phone] FAX: [phone] Start of care: Day after Discharge Please note that any additional orders needs or changes will need to be obtained from this patient's PCP: BOSTON HERNANDEZ MD [facility] [address] / [place] [address] All VNA agencies which cover the area of patient's residence have been reviewed, either verbally symone writing, and patient/family have chosen the home health care agency noted Questions: Agency name and contact information: [facility] Patient location post discharge: Home What services are requested: Registered Nurse Start date: Responsible MD post discharge contact info: PCP Follow-Up: Future Appointments Date Time Provider Department Center 06/24/2015 1:40 PM Ebenezer Patino III, MD [facility] Primary Care Provider: BOSTON HERNANDEZ MD [phone] Follow-up Recommendations for Providers: Please see discharge [...] was managed by the Urology Team at [facility]. If you have any questions or concerns, please feel free to contact us. Provider Contact Information: Urology Clinic: [facility] (after business hours): documented in this encounter [...] If you need to brace yourself to picker box operator an object - it is too heavy. [...] more degrees The number for questions is [phone] before 5 PM weekdays and [phone] after 5 PM and weekends. FOLLOW-UP Follow-up appointment will be scheduled with Dr. Pelaez in 2 weeks for a wound check. Appointment will be mailed to you. Please call [phone] (clinic number for appointments) to confirm date and time of your appointment if you do not receive your apointment in 2-3 days. Future Appointments Date Time Provider Department Center 06/24/2015 1:40 PM Ebenezer Patino III, MD [facility] documented in this encounter Medications at [...] daily (with meals). One tablet per day sulfamethoxazole-trime thoprim (BACTRIM DS) 800-160 mg Tablet [...] EST Office of Care Management (OCM) / Solutions Architect(CM)/ Initial Assessment Discussed patient with Provider Team [...] ADVANCE DIRECTIVES: Not on file HEALTH /PRESCRIPTION COVERAGE:[facility] CURRENT HOME/COMMUNITY SERVICES/EQUIPMENT: None but will place VNA referral DME: Home Health Agency: [facility]. PHONE: [phone] FAX: [phone] Other: CUSTOMER PROJECT MANAGER REFERRAL: not needed at this time PRIMARY CARE PHYSICIAN: BOSTON HERNANDEZ MD [facility] [address] / [facility] [address] POTENTIAL DISCHARGE NEEDS: VNA referral and prescriptions. [...] identified Problem: Coping, Compromised Family (Adult, NICU, [place], Obstetrics, Pediatric) Goal: Identify Signs and Symptoms [...] Derick Bravo - 06/09/2015 6:30 PM EST [facility] Operative Note Patient Name: Yung Betancur : [id number] MR#: [id number] Case Date: 06/09/2015 Surgeon: Surgeon(s) and Role: [...] had received preoperative antibiotics (Vancomycin/gentamicin). A 16- Spanish Richardson catheter was placed and the Lonestar [...] Operative Note Patient Name: Yung Betancur : [id number] MR#: [id number] Case Date: 06/09/2015 Surgeon: Surgeon(s) and Role: * Ebenezer Patino III, MD - Primary * Derick Bravo MD - Resident-Surgeon Chief * Soco Fisehr MD - Resident-Surgeon Micah Preoperative diagnosis: ED/PEYRONIE'S [...] 11:40 AM EDT [place] [address] Manoj Vinson MD [facility] [place] [address] documented as of this encounter Procedures Procedure Name Priority Date/Time Associated Diagnosis Comments IMPLANTABLE DEVICES SCAN 06/11/2015 12:00 AM EST SALESPERSON HEARING AIDS SCAN 06/11/2015 12:00 AM EST POCT GLUCOSE Routine 06/10/2015 11:25 AM EST POCT GLUCOSE Routine 06/09/2015 6:50 PM EST PENILE PROSTHESIS, MULTI-COMPONENT (WRVU 14.52) 06/09/2015 3:48 PM EST ED/PEYRONIE'S BASIC METABOLIC PANEL STAT 06/09/2015 1:50 PM EST POCT GLUCOSE Routine 06/09/2015 12:38 PM EST documented in this encounter Results * SCAN DOC: IMPLANTABLE DEVICES (06/11/2015 12:00 AM EST) Scanning Provider MEDIA MGR SCAN EXT O RDR/RSLT * SCAN DOC: SALESPERSON HEARING AIDS (06/11/2015 12:00 AM EST) Anatomical Region Laterality Modality Other Scanning Provider MEDIA MGR SCAN EXT O RDR/RSLT * (ABNORMAL) POCT Glucose (06/10/2015 11:25 AM EST) [facility] Signature Glucose, POC 280(H) 65 - 199 mg/dL LUIS ANTONIO BENITES Comment: Supplemental ranges: <140 mg/dL before meals <180 mg/dL all other times of the day Blood specimen (specimen) 06/10/2015 11:25 AM EST 06/10/2015 11:25 AM EST Ebenezer Patino III, MD POINT OF CARE AGUSTÍN T ORDERABLES CERNER MILLENNIUM * POCT Glucose (06/09/2015 6:50 PM EST) Glucose, POC 164 65 - 199 mg/dL CERNER MILLENNIUM Comment: Supplemental ranges: <140 mg/dL before meals <180 mg/dL all other times of the day Blood specimen (specimen) 06/09/2015 6:50 PM EST 06/09/2015 6:50 PM EST Ebenezer Patino III, MD POINT OF CARE AGUSTÍN T ORDERABLES [facility] * Basic Metabolic Panel (non-fasting) (06/09/2015 1:50 PM EST) Glucose 140 65 - 199 mg/dL [facility] MILLENNIUM Comment:Diabetes: >=200 mg/d L plus symptoms Blood Urea Nitrogen 19 10 - 20 mg/dL CERNER MILLENNIUM Creatinine 1.07 0.80 - 1.50 mg/dL CERNER MILLENNIUM Comment: Please note that the pediatric reference intervals supplied above were not validated at [facility]. Results from pediatric patients should be interpreted [...] 102 98 - 107 mmol/L CERNER MILLENNIUM Carbon Dioxide 24 22 - 31 mmol/L CERNER MILLENNIUM Anion Gap 13 5 - 15 mmol/L CERNER MILLENNIUM Calcium 8.9 8.5 - 10.5 mg/dL CERNER MILLENNIUM Est Glomerular Filtration Rate >60 >=60 CERNER MILLENNIUM Comment: This estimated [...] the following links into your internet browser. [email or web address] Blood specimen (specimen) 06/09/2015 1:50 PM EST 06/09/2015 1:59 PM EST Narrative Resulting Agency Comment Spec In Lab Arabella Hatch MD CHEMISTRY ORDERABLES Performing Organization Address [facility] Co de Phone Number [facility] Always Prepped * POCT Glucose (06/09/2015 12:38 PM EST) Glucose, POC 146 65 - 199 mg/dL [facility] Comment: Supplemental ranges: <140 mg/dL before meals <180 mg/dL all other times of the day Blood specimen (specimen) 06/09/2015 12:38 PM EST 06/09/2015 12:38 PM EST Ebenezer Patino III, MD POINT OF CARE AGUSTÍN T ORDERABLES Performing Organization Address [facility] Co de Phone Number LUIS ANTONIO [facility] documented in this encounter Visit Diagnoses Diagnosis Peyronie's disease documented in this encounter Administered Medications Inactive [...] on Mon06/09/15 at 2100, Until Discontinued, Routine 2223 (Given - Provider: Shamir Xiao) 0904 (Given - Provider: Laura Vallecillo RN) gabapentin (NEURONTIN) capsule 600 mg (CANCELED) 600 mg, Oral, NIGHTLY, First dose on Mon06/09/15 at 2100, Until Discontinued, Routine 2224 (Given - Provider: Shamir Xiao) gentamicin (GARAMYCIN) [...] Routine 222 (Given - Provider: Shamir Xiao) 0915 (Given [...] Until Mon06/09/15 at 1958, Intra-Operative (Intra-Procedure), Routine 1652 (Given - Provider: Ebenezer Patino III, MD - Comment: in 1L normal saline)173 (Given - Provider: Ebenezer Patino III, MD) [...] PACU Recovery 1857 (Given - Provider: Mali Guillory RN)1908 (Given - Provider: Mali Guillory RN)191 (Given - Provider: Mali Guillory, MATEO)192 (Given - Provider: Mali Guillory, MATEO) oxyCODONE (ROXICODONE) immediate release tablet 10 mg(Linked [...] scheduled level., STAT And Vancomycin, trough (CANCELED) New collection, Timed, PRN, Starting on Mon06/10/15 at 0635, [...] Routine documented in this encounter Care Teams Enterprise Solutions Architect Relationship Specialty Start Date End Date Boston Hernandez MD [facility] [address] [place] [address] PCP - General General Internal Medicine 05/27/1511/07 documented as of this encounter
--- OUTSIDE RECORDS SUMMARY | 2024-02-21 09:33 | XMS_ITS | Encounter Summary ---
Author Organization [facility] [place] [address] Care Team Providers Care Machine Stitcher Name Role Phone Boston Hernandez MD Primary Care Provider [phone] Reason for Visit * Auth/Cert Specialty Diagnoses / Procedures Referred By Contac t Referred To Contact Diagnoses ED/PEYRONIE'S Procedures PRO INSERT, INFLATABLE PENILE PROSTHESIS PENILE PROSTHESIS, MULTI-COMPONENT Referral ID Status Reason Start Date Expiration Date Visits Re quested Visits Authorized [id number] 1 1 Encounter Details Date Type Department Care Team (Late st Contact Info) Description 06/09/2015 1:30 PM EST - 06/09/2015 4:57 PM EST Surgery [place] [address] Ebenezer Patino III, MD [facility] [place] [address] PENILE PROSTHESIS, MULTI-COMPONENT (WRVU 14.52) Social History [...] Yung Betancur Patient Age: 59 y.o. Language: Stateless Race: White Ethnicity: Not nor Admit date: [...] in the midshaft of the penis. Assessment: Gnrir-wgkvj-ensp-old gentleman with ED that is likely secondary [...] Hospital Course: Patient was admitted electively to [facility] via the same day surgery program and [...] If you need to brace yourself to chicken picker an object - it is too [...] more degrees The number for questions is [phone] before 5 PM weekdays and [phone] after 5 PM and weekends. FOLLOW-UP Follow-up appointment will be scheduled with Dr. Pelaez in 2 weeks for a wound check. Appointment will be mailed to you. Please call [phone] (clinic number for appointments) to confirm date and time of your appointment if you do not receive your apointment in 2-3 days. Future Appointments Date Time Provider Department Center 06/24/2015 1:40 PM Ebenezer Patino III, MD [facility] [place] [facility] General Instructions None Future Appointments and Orders Future Appointments Provider Department Dept Phone 06/24/2015 1:40 PM Ebenezer Patino III, MD Urology [phone] Future Orders Complete By Expires Referral to Home Health - at DISCHARGE [[id number] CPT(R)] As directed Process Instructions: Scheduling Instructions: Comments: DOCUMENTATION FOR VNA SERVICES (INCLUDING THOSE PATIENTS WITH MEDICARE COVERAGE REQUIRING HOME VNA SERVICES AND/OR HOSPICE SERVICES) PATIENT'S LOCATION: [place]ung [place] [facility] [phone] (home) Cell: No relevant phone numbers on file. Direct Support Professional's Name: Tahmina- Spouse In discussion with the attending physician, it is certified that this patient is under their care and that they, or a Nurse Practitioner,Clinical Nurse specialist or Physician Aircraft Machinist who is working directly with them, had [...] re health issues HOME HEALTH CARE AGENCY: [facility] PHONE: [phone] FAX: [phone] Start of care: Day after Discharge Please note that any additional orders needs or changes will need to be obtained from this patient's PCP: BOSTON HERNANDEZ MD [facility] [address] / [place] [address] All VNA agencies which cover the area of patient's residence have been reviewed, either verbally symone writing, and patient/family have chosen the home health care agency noted Questions: Agency name and contact information: [facility] Patient location post discharge: Home What services are requested: Registered Nurse Start date: Responsible MD post discharge contact info: PCP Follow-Up: Future Appointments Date Time Provider Department Center 06/24/2015 1:40 PM Ebenezer Patino III, MD [facility] [place] [facility] Primary Care Provider: BOSTON HERNANDEZ MD [phone] Follow-up Recommendations for Providers: Please see discharge [...] was managed by the Urology Team at [facility]. If you have any questions or concerns, please feel free to contact us. Provider Contact Information: Urology Clinic: [facility] (after business hours): documented in this encounter [...] If you need to brace yourself to chicken picker an object - it is too [...] more degrees The number for questions is [phone] before 5 PM weekdays and [phone] after 5 PM and weekends. FOLLOW-UP Follow-up appointment will be scheduled with Dr. Pelaez in 2 weeks for a wound check. Appointment will be mailed to you. Please call [phone] (clinic number for appointments) to confirm date and time of your appointment if you do not receive your apointment in 2-3 days. Future Appointments Date Time Provider Department Center 06/24/2015 1:40 PM Ebenezer Patino III, MD [facility] documented in this encounter Medications at [...] EST Office of Care Management (OCM) / Rn Pediatric(CM)/ Initial Assessment Discussed patient with Provider Team [...] ADVANCE DIRECTIVES: Not on file HEALTH /PRESCRIPTION COVERAGE:[facility] CURRENT HOME/COMMUNITY SERVICES/EQUIPMENT: None but will place VNA referral DME: Home Health Agency: [facility]. PHONE: [phone] FAX: [phone] Other: TEA AND SPICE SUPERVISOR REFERRAL: not needed at this time PRIMARY CARE PHYSICIAN: BOSTON HERNANDEZ MD [facility] [address] / [facility] [address] POTENTIAL DISCHARGE NEEDS: VNA referral and prescriptions. [...] hours) at 06/09/152030 Last data filed at 06/09/15 194 Gross per 24 hour Intake 1900 ml Output 183 ml Net 1717 ml , I/O last 1 completed shift: In: 1900 [I.V.:1900] Out: 43 [Urine:3; Blood:40] Physical Exam: Gen: [...] this encounter H&P Notes * Derick Bravo A - 06/09/2015 3:03 PM EST UROLOGY H&P [...] identified Problem: Coping, Compromised Family (Adult, NICU, [place], Obstetrics, Pediatric) Goal: Identify Signs and Symptoms and Related Risk Factors Signs and symptoms and related risk factors are identified upon initiation of Human Response Clinical Practice Guideline (CPG) Outcome: Ongoing (Interventions Implemented as Appropriate) Goal: Effective Family Coping Patient will demonstrate the desired outcomes. Outcome: Ongoing (Interventions Implemented as Appropriate) 06/09/152116 Coping, Compromised Family (Adult, NICU, [place], Obstetrics, Pediatric) Effective Family Coping making progress toward outcome * Op Note - Derick Bravo - 06/09/2015 6:30 PM EST [facility] Operative Note Patient Name: Yung Betancur : [id number] MR#: [id number] Case Date: 06/09/2015 Surgeon: Surgeon(s) and Role: [...] had received preoperative antibiotics (Vancomycin/gentamicin). A 16- British Richardson catheter was placed and the Lonestar [...] Operative Note Patient Name: Yung Betancur : [id number] MR#: [id number] Case Date: 06/09/2015 Surgeon: Surgeon(s) and Role: [...] Visit Urology at [facility] [place] [address] Manoj Vinson MD [facility] [place] [address] documented as of this encounter Procedures Procedure Name Priority Date/Time Associated Diagnosis Comments IMPLANTABLE DEVICES SCAN 06/11/2015 12:00 AM EST TOOTH CUTTER SPUR SCAN 06/11/2015 12:00 AM EST POCT GLUCOSE [...] SCAN EXT O RDR/RSLT * SCAN DOC: TOOTH CUTTER SPUR (06/11/2015 12:00 AM EST) Anatomical Region Laterality Modality Other Scanning Provider MEDIA MGR SCAN EXT O RDR/RSLT * (ABNORMAL) POCT Glucose (06/10/2015 11:25 AM EST) Glucose, POC 280(H) 65 - 199 mg/dL [facility] Comment: Supplemental ranges: <140 mg/dL before [...] OF CARE AGUSTÍN T ORDERABLES LUIS ANTONIO CORONELIUM * Basic Metabolic Panel (non-fasting) (06/09/2015 1:50 PM EST) Glucose 140 65 - 199 mg/dL CERNER MILLENNIUM Comment:Diabetes: >=200 mg/d L plus symptoms Blood Urea Nitrogen 19 10 - 20 mg/dL CERNER MILLENNIUM Creatinine 1.07 0.80 - 1.50 mg/dL CERNER MILLENNIUM Comment: Please note that the pediatric reference intervals supplied above were not validated at [facility]. Results from pediatric patients should be interpreted [...] the following links into your internet browser. [email or web address] Blood specimen (specimen) 06/09/2015 1:50 PM EST 06/09/2015 1:59 PM EST Narrative Resulting Agency Comment Spec In Lab Arabella Hatch MD CHEMISTRY ORDERABLES Performing Organization Address [facility] Co de Phone Number LUIS ANTONIO [email or web address] * POCT Glucose (06/09/2015 12:38 PM EST) Glucose, POC 146 65 - 199 mg/dL LUIS ANTONIO [email or web address] Comment: Supplemental ranges: <140 mg/dL before meals <180 mg/dL all other times of the day Blood specimen (specimen) 06/09/2015 12:38 PM EST 06/09/2015 12:38 PM EST Ebenezer Patino III, MD POINT OF CARE AGUSTÍN T ORDERABLES Performing Organization Address [facility] Phone Number LUIS ANTONIO [email or web address] documented in this encounter Visit Diagnoses Not on filedocumented in this encounter Administered Medications Inactive Administered Medications - up to 3 most recent administrations Medication Order MAR Action Action Date Dose Rate Site bacitracin injection ONCE PRN, Starting on Mon06/09/15 at 1653, Until Mon06/09/15 at 1958, Intra-Operative (Intra-Procedure), Routine Given 06/09/2015 5:36 PM [...] on Mon06/09/15 at 1330, Until Mon06/09/15 at 195, Day of Surgery (Day of Procedure) New [...] Shamir Xiao) 0904 (Given - Provider: Laura Vallecillo, MATEO) gabapentin (NEURONTIN) capsule 600 mg (CANCELED) 600 [...] orders., Indication for (Active or Suspected): Prophylaxis 160 (Given - Provider: Scarlett Richards CRNA - [...] Shamir Xiao) 0915 (Given - Provider: Laura Vallecillo, MATEO) sulfamethoxazole-trimethop rim (BACTRIM DS) 800-160 mg per [...] PACU Recovery 185 (Given - Provider: Mali Guillory RN)190 (Given - Provider: Mali Guillory, MATEO)1917 (Given - Provider: Mali Guillory, MATEO)1923 (Given - Provider: Mali Guillory RN) oxyCODONE (ROXICODONE) immediate release tablet 10 [...] Routine documented in this encounter Care Teams Machine Stitcher Relationship Specialty Start Date End Date Boston Hernandez MD [facility] [address] [place] [address] PCP - General General Internal Medicine 05/27/1511/07 documented as of this encounter
--- OUTSIDE RECORDS SUMMARY | 2024-02-21 09:33 | XMS_ITS | Clinical Summary ---
Author Organization [facility] Address [address] [place] [address] Care Team Providers Care Flame Annealing Machine Operator Name Role Phone Yung Horn MD Primary Care Provider [phone] Allergies Active Allergy Reactions Criticality Noted Date [...] Date Bilateral primary osteoarthritis of knee 018 Encounters Date Type Department Care Team Description 01/21/2024 Lab Requisition [facility] Pathology & Laboratory Medicine - [facility] [address] [place] [address] Outr Resulting Lab, Provider from Last 3 Months Surgical History Surgery Date Site/Laterality Comments ROTATOR CUFF REPAIR Medical History Medical History Date Comments Knee pain Wears glasses Hearing loss Arthritis Back pain Gout Joint pain Joint swelling Numbness Depression Diabetes mellitus (HCC-CMS) Anxiety Family History Medical History Relation Comments [...] Screening 2021 COVID-19 Vaccine (2022- season) 2023 Procedures Procedure Name Priority Date/Time Associated Diagnosis Comments FECAL BACTERIAL PATHOGENS BY PCR Routine 01/20/2024 7:15 EDT from Last 3 Months Results * FECAL BACTERIAL PATHOGENS BY PCR (01/20/2024 7:15 EDT) Salmonella PCR Negative Negative 01/21/2024 19:45 EDT [facility] Shigella/Enteroin vasive E. coli Negative Negative 01/21/2024 19:45 EDT [facility] HN LAB CAMPYLOBACTER PCR Negative Negative 01/21/2024 19:45 EDT [facility] Shiga Toxin PCR Negative Negative 19:45 EDT [facility] Feces SPECIMEN FROM RECTUM / Unknown 01/20/2024 7:15 EDT 01/21/2024 15:49 EDT Provider Outr Resulting Lab MICROBIOLOGY - GENERAL ORDERABLES [facility] [address] [place], [place] [id number] from Last 3 Months Care Teams Flame Annealing Machine Operator Relationship Specialty Start Date End Date Yung Horn MD [place] [address] PCP - General 01/26/18
--- OUTSIDE RECORDS SUMMARY | 2024-02-21 09:33 | XMS_ITS | Encounter Summary ---
Author Organization [facility] Address [address] [place] [address] Care Team Providers Care Press Operator Printing Name Role Phone Yung Horn MD Primary Care Provider Reason for Visit * (Routine/Next Available) - Receiving Office to Obtain Authorization Specialty Diagnoses / Procedures Referred By Marisela ramesh Referred To Contact Procedures XR OUTSIDE IMAGES MSK Imaging, External Referral ID Status Reason Start Date Expiration Date Visits Requested Visits Authorized [id number] Receiving Office to Obtain Authorization 2 1 1 Encounter Details Date Type Department Care Team (Latest Contact Info) Description 04/20/2022 0:05 EDT - 04/20/2022 0:09 EDT Hospital Encounter [facility] Secondary Reads [place] Discharge Disposition: Home or [...] on filedocumented in this encounter Care Teams Press Operator Printing Relationship Specialty Start Date End Date Yung Horn MD [address] [place] [address] PCP - General 01/26/18 documented as of this encounter
--- OUTSIDE RECORDS SUMMARY | 2024-02-21 09:33 | XMS_ITS | Encounter Summary ---
Author Organization [facility] Address [address] [place] [address] Care Team Providers Care Draw Hand Name Role Phone Yung Horn MD Primary Care Provider [phone] Encounter Details Date Type Department Care Team (Late st Contact Info) Description 08/15/2021 Lab Requisition [facility] Pathology & Laboratory Medicine - [facility] [address] [place] [address] Krystin Coe, DO [address] [place], [place] [id number] Dysphagia, unspecified Social History Tobacco Use Types [...] management options, if applicable. 08/17/2021 9:11 EST [facility] Final Diagnosis A. GASTROESOPHAGEAL JUNCTION, BIOPSY: - Reactive squamocolumnar junctional mucosa. - Negative for intestinal metaplasia. - Negative for dysplasia or malignancy. 08/17/2021 9:11 [facility] Attestation There was significant resident/fellow involvement in the diagnostic evaluation of this case. By the signature below, the attending physician certifies that they have personally conducted a gross and/or microscopic examination of the described specimens and rendered or confirmed the above diagnosis. 08/17/2021 9:11 [facility] at 0911 Clinical History Dysphagia, hx of stricture 08/17/2021 9:11 [facility] Gross Description A. Received in formalin labelled with proper patient identification (initials B, J) and GE junction is a pale hernandez-white tissue (0.4 x 0.3 x 0.3 cm). Submitted intact in A1. Mo Diehl 08/15/2021 13:18 08/17/2021 9:11 [facility] Resident/Alexy w: Sharla Nichols DO 08/17/2021 9:11 [facility] Performing Lab [facility] 9:11 [facility] Scanned Images 08/17/2021 9:11 [facility] Tissue ENTIRE ESOPHAGO-GASTRIC MUCOSAL JUNCTION / Unknown 08/13/2021 8:16 EST 08/15/2021 12:16 EST Krystin Coe DO PATHOLOGY ORDERABLES [facility] [address] [place] [address] documented in this encounter Visit Diagnoses Diagnosis Dysphagia, unspecified documented in this encounter Care Teams Draw Hand Relationship Specialty Start Date End Date Yung Horn MD [address] [place] [address] PCP - General 01/26/18 documented as of this encounter
--- OUTSIDE RECORDS SUMMARY | 2024-02-21 09:33 | XMS_ITS | Encounter Summary ---
Author Organization [facility] Address [address] [place] [address] Care Team Providers Care Sql Report Developer Name Role Phone Yung Horn MD Primary Care Provider [phone] Encounter Details Date Type Department Care Team (Late st Contact Info) Description 10/19/2021 Lab Requisition [facility] Pathology & Laboratory Medicine - Main [address] [address] Outr Resulting Lab, Provider Social History Tobacco [...] Neg and Giardia Antigen Neg 12:20 EDT [facility] Feces SPECIMEN FROM RECTUM / Unknown 10/18/2021 13:45 EDT 10/19/2021 17:01 EDT Provider Outr Resulting Lab MICROBIOLOGY - GENERAL ORDERABLES [facility] [address] [place] [address] documented in this encounter Visit Diagnoses Not on filedocumented in this encounter Care Teams Sql Report Developer Relationship Specialty Start Date End Date Yung Horn MD [address] [place] [address] PCP - General 01/26/18 documented as of this encounter
--- OUTSIDE RECORDS SUMMARY | 2024-02-21 09:33 | XMS_ITS | Encounter Summary ---
[place] [address] Care Team Providers Care Vitreo Retinal Surgeon Name Role Phone Boston Hernandez MD Primary Care Provider [phone] Reason for Visit * Auth/Cert Specialty Diagnoses / Procedures Referred By Contac t Referred To Contact Diagnoses ED/PEYRONIE'S Procedures PRO INSERT, INFLATABLE PENILE PROSTHESIS PENILE PROSTHESIS, MULTI-COMPONENT Referral ID Status Reason Start Date Expiration Date Visits Re quested Visits Authorized [id number] 1 1 Encounter Details Date Type Department Care Team (Late st Contact Info) Description 06/09/2015 3:46 PM EST Anesthesia Event [place] [address] Marcelino Mireles MD [facility] [place] [address] Arabella Hatch MD [facility] [place] [address] Anesthesia Record Procedure Summary Procedure Name Responsible [...] IV Line - Single Lumen 06/09/15; 1338; koxj-wwr-hxeeeg catheter system; 20 gauge; Justina Still RN; [...] Mireles MD - 06/09/2015 7:45 PM EST [facility] Department of Anesthesiology Post-procedure Note Patient: Yung Betancur Procedure Summary Date Anesthesia Start Anesthesia Stop Room / Location 06/09/15 3262 [id number] [facility] OR [facility] MAIN OR Procedure Diagnosis Surgeon Responsible Provider PENILE PROSTHESIS, MULTI-COMPONENT (N/A Penis) No diagnosis on file. Ebenezer Patino III, MD Mancuso, Aaron J, MD (ED/PEYRONIE'S) Last (1hr) Vitals: BP 127/73 mmHg (06/09/151929) Temp Pulse 82 (06/09/151929) Resp 12 (06/09/151929) SpO2 98 % (06/09/151929) Patient Location: PACU/[facility] Level of Consciousness: Awake and Alert [...] with patient and spouse. Plan discussed with PLUG PASTER. PAT Staff Note documented in this encounter Plan of Treatment Upcoming Encounters Date Type Department Care Team (Late st Contact Info) Description 02/22/2024 11:40 AM EDT Office Visit Urology at [facility] [place] [address] Manoj Vinson MD [facility] [place] [address] documented as of this encounter Visit Diagnoses [...] g documented in this encounter Care Teams Vitreo Retinal Surgeon Relationship Specialty Start Date End Date Boston Hernandez MD [facility] [address] [place] [address] PCP - General General Internal Medicine 05/27/1511/07 documented as of this encounter
--- OUTSIDE RECORDS SUMMARY | 2024-02-21 09:33 | XMS_ITS | Encounter Summary ---
Author Organization [facility] [place] [place] [address] Care Team Providers Care Medical Collector Name Role Phone Maritza Faustin MD Primary Care Provider [phone] Reason for Visit * Reason Comments Abnormal Penile Curvature Encounter Details Date Type Department Care Team (Late st Contact Info) Description 04/23/2015 9:20 AM EDT [place] [address] Ebenezer Patino III, MD [facility] [place] [address] Erectile dysfunction, unspecified erectile dysfunction type; Peyronie's [...] in the midshaft of the penis. Assessment: Ablox-hhwve-zorh-old gentleman with ED that is likely secondary [...] 11:40 AM EDT [place] [address] Manoj Vinson MD [facility] [place] [place] [address] documented as of this encounter Procedures Procedure [...] Lab Ebenezer Patino III, MD MICROBIOLOGY - [facility] ORDERABLES LUIS ANTONIO BENITES documented in this encounter Visit Diagnoses Diagnosis Erectile dysfunction, unspecified erectile dysfunction type Peyronie's disease documented in this encounter Care Teams Medical Collector Relationship Specialty Start Date End Date Maritza Faustin MD [address] [place] [address] PCP - General 07/25/14 05/26/15 documented as of this encounter
--- OUTSIDE RECORDS SUMMARY | 2024-02-21 09:33 | XMS_ITS | Encounter Summary ---
Author Organization [facility] Address [address] [place] [address] Care Team Providers Care Fruit Culler Name Role Phone Yung Horn MD Primary Care Provider [phone] Encounter Details Date Type Department Care Team (Late st Contact Info) Description 01/21/2024 Lab Requisition [facility] Pathology & Laboratory Medicine - [address] [address] Outr Resulting Lab, Provider Social History Tobacco [...] PATHOGENS BY PCR Routine 01/20/2024 7:15 EDT documented in this encounter Results * FECAL BACTERIAL PATHOGENS BY PCR (01/20/2024 7:15 EDT) Salmonella PCR Negative Negative 01/21/2024 19:45 EDT [facility] Shigella/Enteroin vasive E. coli Negative Negative 01/21/2024 19:45 EDT [facility] HN LAB CAMPYLOBACTER PCR Negative Negative 01/21/2024 19:45 EDT [facility] Shiga Toxin PCR Negative Negative 19:45 EDT [facility] Feces SPECIMEN FROM RECTUM / Unknown 01/20/2024 7:15 EDT 01/21/2024 15:49 EDT Provider Outr Resulting Lab MICROBIOLOGY - GENERAL ORDERABLES [facility] [address] [place], [place] [address] documented in this encounter Visit Diagnoses Not on filedocumented in this encounter Care Teams Fruit Culler Relationship Specialty Start Date End Date Yung Horn MD [address] [place] [address] PCP - General 01/26/18 documented as of this encounter
--- OUTSIDE RECORDS SUMMARY | 2024-02-21 09:33 | XMS_ITS | Encounter Summary ---
Author Organization [facility] Address [address] [place] [address] Care Team Providers Care Real Estate Director Name Role Phone Yung Horn MD Primary Care Provider [phone] Encounter Details Date Type Department Care Team (Late st Contact Info) Description 07/31/2020 Lab Requisition [facility] Pathology & Laboratory Medicine - [facility] [address] [place], [place] [address] Outr Resulting Lab, Provider Social History Tobacco [...] in accordance with CLIA regulations, [employer] [place] [employer] (CAP) guidelines (Sep 26, 2019), and FDA guidance (Sep 07, 2019). This test is only for use under the Food and Drug Administration's Emergency Use Authorization. Swab ENTIRE NASOPHARYNX / Unknown 07/31/2020 8:31 EST 07/31/2020 15:47 EST Provider Outr Resulting Lab MICROBIOLOGY - GENERAL ORDERABLES [facility] [place], [place] * COVID-19 TESTING (07/31/2020 8:31 EST) COVID-19 rt-PCR Result NEGATIVE Negative 08/02/2020 10:18 EST [facility] Comment: 2019-novel Coronavirus (2019-nCoV) not detected [...] in accordance with CLIA regulations, [employer] [place] [employer] (CAP) guidelines (Sep 26, 2019), and FDA guidance (Sep 07, 2019). This test is only for use under the Food and Drug Administration's Emergency Use Authorization. Performing Lab [facility] 08/02/2020 10:18 EST [facility] Swab 07/31/2020 8:31 EST 07/31/2020 15:47 EST Provider Outr Resulting Lab MICROBIOLOGY - GENERAL ORDERABLES Performing Organization Address City/State/[facility] Co de Phone Number [facility] [address] [place] [address] [facility] [place], [place] documented in this encounter Visit Diagnoses Not on filedocumented in this encounter Care Teams Real Estate Director Relationship Specialty Start Date End Date Yung Horn MD [address] [place] [place] [address] PCP - General 01/26/18 documented as of this encounter
--- OUTSIDE RECORDS SUMMARY | 2024-02-21 09:33 | XMS_ITS | Encounter Summary ---
Author Organization [facility] Address [address] [place] [address] Care Team Providers Care Tennis Ball Coverer Hand Name Role Phone Unknown, Provider Primary Care Provider [phone] Reason for Visit * Reason Onset Date Comments Appointment Related 01/25/2018 Encounter Details Date Type Department Care Team (Late st Contact Info) Description 01/25/2018 Telephone [facility] Total Joint Program - [address] [address] Roosevelt Miller MD MSc [facility] [address] [place] [address] Appointment Related Social History Tobacco [...] on filedocumented in this encounter Care Teams Tennis Ball Coverer Hand Relationship Specialty Start Date End Date Unknown, ProviderMD PCP - General 11/16/17 01/25/18 documented as of this encounter
--- OUTSIDE RECORDS SUMMARY | 2024-02-21 09:33 | XMS_ITS | Encounter Summary ---
Author Organization [facility] [place] [place] [address] Care Team Providers Care English Composition Instructor Name Role Phone Boston Hernandez MD Primary Care Provider [phone] Reason for Visit * Reason Comments Follow Up Surgery Encounter Details Date Type Department Care Team (Late st Contact Info) Description 07/23/2015 8:00 AM EST [place] [address] Ebenezer Patino III, MD [facility] [place] [address] Erectile dysfunction, unspecified erectile dysfunction type Social [...] 11:40 AM EDT [place] [address] Manoj Vinson MD [facility] [place] [address] documented as of this encounter Visit Diagnoses Diagnosis Erectile dysfunction, unspecified erectile dysfunction type documented in this encounter Care Teams English Composition Instructor Relationship Specialty Start Date End Date Boston Hernandez MD [facility] [address] [place] [address] PCP - General General Internal Medicine 05/27/1511/07 documented as of this encounter
--- OUTSIDE RECORDS SUMMARY | 2024-02-21 09:33 | XMS_ITS ---
Author Organization Unknown Address [address] [place] [phone] Phone Care Team Providers Care Architectural Draftsperson Name Role Phone DIANA BRIGHT Registered Nurse [...] D Wednesday, February 23, 2022 8:00:13 AM [id number] Electronically Reviewed and Signed By: ANGÉLICA PIMENTEL MD 02/25/22 21:55 Copy for: 185 [facility] MGMT DISCHARGED XR FOREARM 2V RT* - Complete d: 03/01/2022 14:57 LOINC: RIGHT FOREARM - 2 VIEWS:No e vidence of fracture. No osseous lesions. No radiopaque foreign body. Vascular calcification noted. Dictated by: TODD PIMENTEL MD Transcribed by: JENNIFER 02/25/2210:32 D Wednesday, February 23, 2022 8:01:58 AM [id number] Electronically Reviewed and Signed By: ANGÉLICA PIMENTEL MD 02/25/22 21:55 Copy for: 185 HEALTH INFORMATION MGMT DISCHARGED Social History Type Status Start Date End Date Code Code Syst em Sex Male Vital Signs Vital Sign Value Unit Cavalier Value Cavalier Unit Date/Time Recent/Initial? Code Code System Body Mass Index 35.87 kg/m2 02/22/2022 16:44 Initial 05939 -5 LOINC Systolic Blood Pressure 143 mm[Hg] 02/22/2022 16:44 Initial 8480- 6 LOINC Diastolic Blood Pressure 82 mm[Hg] 02/22/2022 16:44 Initial 8462- 4 LOINC Body Surface Area 2.37 m2 02/22/2022 16:44 Initial 3140- 1 LOINC Height 177.800 0 cm 70.00 in 02/22/2022 16:44 Initial 8302- 2 LOINC O2 Saturation 96 % 2021 16:44 Initial 53099 -5 LOINC Pulse 68.0 /min 02/22/2022 16:44 Initial 8867- 4 LOINC Respiration 16 /min 02/23/20 16:44 Initial 9279- 1 LOINC Temperature 36.4 Analia 97.5 F 02/23/20 16:44 Initial 8310- 5 LOINC Weight 113.40 kg 250.00 lbs 02/22/2022 16:44 Initial 63916 -7 LOINC Assessment You had the following [...] m Replacement of bilateral knee joints completed 009809225 SNOMEDCT Repair of rotator cuff completed 25272126 SN OMEDCT Problems Problem Start Date Resolved Date Status Code Code System TYPE 2 DIABETES active 79533780 SNOM ED-CT ANXIETY active 10689177 SNOMED-CT Allergies and Adverse Reactions Allergy Substance Reaction Severity Start Date Concern Status Code Code System ADHESIVE Rash (SNOMED-CT: 555988813) Active No Known Drug Allergies Active 566968790 SNOMED-CT Plan of Treatment No Data Found Encounters Encounter Diagnosis Start Date Code Code Sys tem Pain in right elbow 02/22/2022 SNOMED-C T Personal Care Team Section Performer Name Performer Role Active Date Inactive Da te
--- OUTSIDE RECORDS SUMMARY | 2024-02-21 09:33 | XMS_ITS | Encounter Summary ---
Author Organization [facility] Address [address] [place] [address] Care Team Providers Care Professor Of Musicology Name Role Phone Yung Horn MD Primary Care Provider [phone] Encounter Details Date Type Department Care Team (Late st Contact Info) Description 01/26/[address] [facility] Hand & Upper Extremity Program - [address] [address] Roosevelt Miller MD MSc FRCSC [address] [place] [address] Right knee pain, unspecified chronicity [...] Primary documented in this encounter Care Teams Professor Of Musicology Relationship Specialty Start Date End Date Yung Horn MD [address] [place] [address] PCP - General 01/26/18 documented as of this encounter
--- OUTSIDE RECORDS SUMMARY | 2024-02-21 09:33 | XMS_ITS | Encounter Summary ---
Author Organization [facility] Address [address] [place] [address] Care Team Providers Care Property Accountant Name Role Phone Yung Horn MD Primary Care Provider [phone] Encounter Details Date Type Department Care Team (Late st Contact Info) Description 07/04/2020 Lab Requisition [facility] Pathology & Laboratory Medicine - [address] [address] Outr Resulting Lab, Provider Social History Tobacco [...] Surface Ag Negative Negative 07/06/2020 9:58 EST [facility] Hep C Antibody Negative Negative 07/06/2020 9:58 EST [facility] Hepatitis A Antibody, IgM Negative Negative 07/06/2020 9:58 EST [facility] Comment:The results of this assay can be falsely lowered due to the consumption of Biotin. Hepatitis B Core Ab, Total Negative Negative 07/06/2020 9:58 EST [facility] Blood VENOUS BLOOD / Unknown 07/03/2020 5:55 EST 07/04/2020 17:27 EST Provider Outr Resulting Lab CHEMISTRY & BLOOD GAS ORDERABLES [facility] [address] [place] [address] documented in this encounter Visit Diagnoses Not on filedocumented in this encounter Care Teams Property Accountant Relationship Specialty Start Date End Date Yung Horn MD [address] [place] [address] PCP - General 01/26/18 documented as of this encounter
--- OUTSIDE RECORDS SUMMARY | 2024-02-21 09:33 | XMS_ITS | Encounter Summary ---
Author Organization [facility] Address [address] [place] [address] Care Team Providers Care Corporate Development Intern Name Role Phone Yung Horn MD Primary Care Provider [phone] Encounter Details Date Type Department Care Team (Late st Contact Info) Description 12/22/2020 Lab Requisition [facility] Pathology & Laboratory Medicine - Main [place] [address] [place] [address] Krystin Coe, DO [address] [place] [address] Encounter for other general examination Social History [...] chronic inflammation SEE COMMENT 12/25/2020 15:45 EDT [facility] Diagnosis Comment No clinical history or indication for liver biopsy is received with this case. Subcapsular tissue is suboptimal for medical liver evaluation and thermal cautery artifact additionally limits this sample. 12/25/2020 15:45 [facility] Attestation There was significant resident/fellow involvement in the diagnostic evaluation of this case. By the signature below, the attending physician certifies that they have personally conducted a gross and/or microscopic examination of the described specimens and rendered or confirmed the above diagnosis. 12/25/2020 15:45 [facility] at 1545 Clinical History Not given 12/25/2020 15:45 [facility] Gross Description A. Received [...] cystic duct margin, en face, and 2 digital media representative sections are submitted in A1. B. Received in formalin labelled with proper patient identification (initials B, J) and liver Bx is a wedge of liver (1.2 x 1.0 x 0.5 cm). No nodules or lesions are present. The specimen is trisected and submitted in B1. EUGENIO ROCKWELL(ASCP) 12/23/2020 9:04 12/25/2020 15:45 [facility] Resident/Alexy w: Ivory Mohr MD 12/25/2020 15:45 [facility] Performing Lab [facility] 12/25/2020 15:45 [facility] Scanned Images 12/25/2020 15:45 [facility] Tissue ENTIRE LIVER / Unknown 12/22/2020 10:35 EDT 12/22/2020 17:25 EDT Tissue specimen (specimen) LIVER STRUCTURE / Unknown 12/22/2020 10:35 EDT 12/22/2020 17:25 EDT Krystin Coe DO PATHOLOGY ORDERABLES [facility] [address] [place] [address] documented in this encounter Visit Diagnoses Diagnosis Encounter for other general examination documented in this encounter Care Teams Corporate Development Intern Relationship Specialty Start Date End Date Yung Horn MD [facility] [place] [address] [place] [address] PCP - General 01/26/18 documented as of this encounter
--- OUTSIDE RECORDS SUMMARY | 2024-02-21 09:33 | XMS_ITS | Encounter Summary ---
Author Organization [facility] Address [address] [place] [address] Care Team Providers Care Vice President Of Academic Affairs Name Role Phone Yung Horn MD Primary Care Provider Encounter Details Date Type Department Care Team (Late st Contact Info) Description 12/21/2022 Lab Requisition [facility] Pathology & Laboratory Medicine - [address] [address] Outr Resulting Lab, Provider Social History Tobacco [...] PSA 0.5 <=4.5 ng/mL 12/21/2022 18:21 EDT [facility] Blood VENOUS BLOOD / Unknown 12/20/2022 14:20 EDT 12/21/2022 16:48 EDT Narrative [facility] - 12/21/2022 18:21 EDT NOTE: Serum PSA concentration should not be interpreted as absolute evidence for the presence or absence of malignant disease. Assayed on Siemens ADVIA Centaur XPT using chemiluminescent technology.??Values obtained by using different assay methods cannot be used interchangeably. Provider Outr Resulting Lab CHEMISTRY & BLOOD GAS ORDERABLES [facility] [address] [place] [address] documented in this encounter Visit Diagnoses Not on filedocumented in this encounter Care Teams Vice President Of Academic Affairs Relationship Specialty Start Date End Date Yung Horn MD [place] [place] [address] PCP - General 01/26/18 documented as of this encounter
--- OUTSIDE RECORDS SUMMARY | 2024-02-21 09:33 | XMS_ITS | Encounter Summary ---
Author Organization [facility] Address [address] [place] [address] Care Team Providers Care Wax Cutter Name Role Phone Yung Horn MD Primary Care Provider [phone] Reason for Visit * (Routine/Next Available) - Receiving Office to Obtain Authorization Specialty Diagnoses / Procedures Referred By Marisela ramesh Referred To Contact Procedures XR OUTSIDE IMAGES MSK Imaging, External Referral ID Status Reason Start Date Expiration Date Visits Requested Visits Authorized [id number] Receiving Office to Obtain Authorization 2 1 1 Encounter Details Date Type Department Care Team (Latest Contact Info) Description 04/20/2022 0:10 EDT - 04/20/2022 0:14 EDT Hospital Encounter [facility] Secondary Reads [place] Discharge Disposition: Home [...] on filedocumented in this encounter Care Teams Wax Cutter Relationship Specialty Start Date End Date Yung Horn MD [address] [place] [address] PCP - General 01/26/18 documented as of this encounter
--- OUTSIDE RECORDS SUMMARY | 2024-02-21 09:33 | XMS_ITS | Encounter Summary ---
Author Organization [facility] Address [address] [place] [address] Care Team Providers Care Office Messenger Helper Name Role Phone Yung Horn MD Primary Care Provider Encounter Details Date Type Department Care Team (Latest Contact Info) Description 10/30/2020 Lab Requisition [facility] Pathology & Laboratory Medicine - [facility] [address] [place] [address] Krystin Coe, DO [address] [place], [place] [id number] Obesity, unspecified; Shortness of breath; Other postprocedural [...] with no specific pathologic features. 11/03/2020 12:05 [facility] Attestation There was significant resident/fellow involvement in the diagnostic evaluation of this case. By the signature below, the attending physician certifies that they have personally conducted a gross and/or microscopic examination of the described specimens and rendered or confirmed the above diagnosis. 11/03/2020 12:05 [facility] at 1205 Clinical History Anastomotic stricture of the gastrojejunostomy site; history of tubular adenoma; diverticula 11/03/2020 12:05 [facility] Gross Description A. Received in [...] EUGENIO HERNÁNDEZ(ASCP) 10/30/2020 16:36 11/03/2020 12:05 EDT [facility] Resident/Fell ow: Ismael Mcmahan MD 11/03/2020 12:05 T [facility] Performing Lab [facility] 11/03/2020 12:05 [facility] Scanned Images 11/03/2020 12:05 [facility] Tissue ENTIRE SMALL INTESTI NE [...] 16:03 EDT Krystin Coe DO PATHOLOGY ORDERABLES [facility] [address] [place] [address] documented in this encounter Visit Diagnoses Diagnosis [...] uncontrolled documented in this encounter Care Teams Office Messenger Helper Relationship Specialty Start Date End Date Yung Horn MD [address] [place] [address] PCP - General 01/26/18 documented as of this encounter
--- OUTSIDE RECORDS SUMMARY | 2024-02-21 09:33 | XMS_ITS | Encounter Summary ---
Author Organization [facility] Address [address] [place] [address] Care Team Providers Care Ship Boss Name Role Phone Yung Horn MD Primary Care Provider Reason for Visit * (Routine/Next Available) - Receiving Office to Obtain Authorization Specialty Diagnoses / Procedures Referred By Marisela ramesh Referred To Contact Procedures XR OUTSIDE IMAGES MSK Imaging, External Referral ID Status Reason Start Date Expiration Date Visits Requested Visits Authorized [id number] Receiving Office to Obtain Authorization 2 1 1 Encounter Details Date Type Department Care Team (Latest Contact Info) Description 04/20/2022 0:15 EDT - 04/20/2022 23:[address] [facility] Secondary Reads [place] Discharge Disposition: Home [...] on filedocumented in this encounter Care Teams Ship Boss Relationship Specialty Start Date End Date Yung Horn MD [address] [place] [address] PCP - General 01/26/18 documented as of this encounter
--- OUTSIDE RECORDS SUMMARY | 2024-02-21 09:33 | XMS_ITS | Encounter Summary ---
Author Organization [facility] Address [address] [place] [address] Care Team Providers Care Nutrition Tech Name Role Phone Yung Horn MD Primary Care Provider [phone] Encounter Details Date Type Department Care Team (Late st Contact Info) Description 07/06/2020 Lab Requisition [facility] Pathology & Laboratory Medicine - [facility] [address] [place] [address] Krystin Coe, DO [address] [place] [address] Encounter for other general examination Social History [...] with no specific pathologic features. 07/08/2020 9:50 [facility] Attestation By the signature below, the attending physician certifies that they have 1) personally conducted a gross and/or microscopic examination of the described specimen(s), and/or personally interpreted the results of laboratory testing of the described specimen(s), and 2) personally rendered or confirmed the above diagnosis. 07/08/2020 9:50 [facility] at 0950 Clinical History Dysphagia 07/08/2020 9:50 [facility] Gross Description A. Received in [...] D1. EUGENIO HERNÁNDEZ(ASCP) 07/06/2020 17:12 07/08/2020 9:50 [facility] Resident/Alexy w: ANA VICK MD 07/08/2020 9:50 [facility] Performing Lab [facility] 9:50 [facility] Scanned Images 07/08/2020 9:50 [facility] Tissue ENTIRE ESOPHAGUS / Unknown 07/04/2020 10:20 EST 07/06/2020 16:46 EST Tissue specimen (specimen) STOMACH STRUCTURE / Unknown 07/04/2020 10:20 EST 07/06/2020 16:46 EST Tissue specimen (specimen) ESOPHAGEAL STRUCTURE / Unknown 07/04/2020 10:20 EST 07/06/2020 16:46 EST Tissue specimen (specimen) ESOPHAGEAL STRUCTURE / Unknown 07/04/2020 10:20 EST 07/06/2020 16:46 EST Krystin Coe DO PATHOLOGY ORDERABLES Performing Organization Address City/State/[facility] Co de Phone Number [facility] [address] [place] [address] documented in this encounter Visit Diagnoses Diagnosis Encounter for other general examination documented in this encounter Care Teams Nutrition Tech Relationship Specialty Start Date End Date Yung Horn MD [facility] [place] [address] PCP - General 01/26/18 documented as of this encounter
--- OUTSIDE RECORDS SUMMARY | 2024-02-21 09:33 | XMS_ITS | Referral Summary ---
Author Organization [facility] Address [address] [place] [address] Care Team Providers Care Hydrotreater Operator Name Role Phone Yung Horn MD Primary Care Provider [phone] Encounters Date Type Department Care Team Description 01/21/2024 Lab Requisition [facility] Pathology & Laboratory Medicine - [facility] [address] [place] [address] Outr Resulting Lab, Provider from Last 3 Months Allergies Active Allergy Reactions Criticality Noted Date [...] EDT Plan of Treatment Not on file Procedures Procedure Name Priority Date/Time Associated Diagnosis Comments FECAL BACTERIAL PATHOGENS BY PCR Routine 01/20/2024 7:15 EDT from Last 3 Months Results * FECAL BACTERIAL PATHOGENS BY PCR (01/20/2024 7:15 EDT) Salmonella PCR Negative Negative 01/21/2024 19:45 EDT [facility] Shigella/Enteroin vasive E. coli Negative Negative 01/21/2024 19:45 EDT [facility] HN LAB CAMPYLOBACTER PCR Negative Negative 01/21/2024 19:45 EDT [facility] Shiga Toxin PCR Negative Negative 19:45 EDT [facility] Feces SPECIMEN FROM RECTUM / Unknown 01/20/2024 7:15 EDT 01/21/2024 15:49 EDT Provider Outr Resulting Lab MICROBIOLOGY - GENERAL ORDERABLES [facility] [address] [place] [address] from Last 3 Months Care Teams Hydrotreater Operator Relationship Specialty Start Date End Date Yung Horn MD [facility] [place] [address] PCP - General 01/26/18
--- OUTSIDE RECORDS SUMMARY | 2024-02-21 09:33 | XMS_ITS | Encounter Summary ---
Author Organization [facility] Address [address] [place] [address] Care Team Providers Care Bezel Cutter Name Role Phone Yung Horn MD Primary Care Provider [phone] Encounter Details Date Type Department Care Team (Late st Contact Info) Description 02/08/2018 Abstract [facility] Orthopedic Trauma - [address] [address] Steff Arellano LPN [address] [place] [address] Social History Tobacco Use Types Packs/Day Years Used Date Smoking Tobacco: Never Assessed Sex and Gender Information Value Date Recorded Sex Assigned at Not on file Gender Identity Not on file Sexual Orientation Not on file documented as of this encounter Plan of Treatment Not on file documented as of this encounter Visit Diagnoses Not on filedocumented in this encounter Care Teams Bezel Cutter Relationship Specialty Start Date End Date Yung Horn MD [address] [place] [address] PCP - General 01/26/18 documented as of this encounter
--- OUTSIDE RECORDS SUMMARY | 2024-02-21 09:33 | XMS_ITS | Encounter Summary ---
Author Organization [facility] [place] [address] Care Team Providers Care Tool Sharpener Name Role Phone Maritza Faustin MD Primary Care Provider [phone] Reason for Visit * Reason Comments Abnormal Penile Curvature Encounter Details Date Type Department Care Team (Late st Contact Info) Description 02/18/2015 8:00 AM EDT [place] [address] Ebenezer Patino III, MD [facility] [place] [address] Peyronie's disease Discharge Disposition: Home Social History [...] seen by a urologist (Dr. Sharma) in [place], [place]. He made the diagnosis of [...] 11:40 AM EDT [place] [address] Manoj Vinson MD [facility] [place] [address] documented as of this encounter Visit Diagnoses Diagnosis Peyronie's disease documented in this encounter Care Teams Tool Sharpener Relationship Specialty Start Date End Date Maritza Faustin MD [address] [facility] [place] [address] PCP - General 07/25/14 05/26/15 documented as of this encounter
--- OUTSIDE RECORDS SUMMARY | 2024-02-21 09:33 | XMS_ITS | Encounter Summary ---
Author Organization [facility] Address [address] [place] [address] Care Team Providers Care Mining Engineering Technologist Name Role Phone Yung Horn MD Primary Care Provider [phone] Encounter Details Date Type Department Care Team (Late st Contact Info) Description 01/10/2022 Lab Requisition [facility] Pathology & Laboratory Medicine - [address] [address] Outr Resulting Lab, Provider Social History Tobacco [...] Outr Resulting Lab MICROBIOLOGY - GENERAL ORDERABLES [facility] [address] [place] [address] * COVID-19 TESTING (01/10/2022 11:19 EDT) COVID-19 rt-PCR Result Negative Negative 01/12/2022 11:10 EDT [facility] Comment: This test has [...] performed using the thony SARS-CoV-2 assay ([employer] on the Thony 6800 System Performing Lab Thony [address] [facility] 01/12/2022 11:10 EDT [facility] Swab 01/10/2022 11:1 9 EDT 01/11/2022 16:29 EDT Provider Outr Resulting Lab MICROBIOLOGY - GENERAL ORDERABLES [facility] [address] [place] [address] documented in this encounter Visit Diagnoses Not on filedocumented in this encounter Care Teams Mining Engineering Technologist Relationship Specialty Start Date End Date Yung Horn MD [facility] [place] [address] PCP - General 01/26/18 documented as of this encounter
--- OUTSIDE RECORDS SUMMARY | 2024-02-21 09:33 | XMS_ITS | Encounter Summary ---
Author Organization [facility] Address [address] [place] [address] Care Team Providers Care Dessert Cup Machine Feeder Name Role Phone Yung Horn MD Primary Care Provider [phone] Encounter Details Date Type Department Care Team (Late st Contact Info) Description 11/12/2019 Lab Requisition [facility] Pathology & Laboratory Medicine - [address] [address] Outr Resulting Lab, Provider Social History Tobacco [...] Comments ZZCOVID-19 TEST [facility] PCR Today 11/12/2019 14:45 EDT COVID-19 TESTING Routine 11/12/2019 14:4 5 EDT documented in this encounter Results * COVID-19 TEST [facility] PCR (11/12/2019 14:45 EDT) Swab ENTIRE NASOPHARYNX / Unknown 11/12/2019 14:45 EDT 11/12/2019 20:51 EDT Provider Outr Resulting Lab MICROBIOLOGY - GENERAL ORDERABLES [facility] [address] [place] [address] * COVID-19 TESTING (11/12/2019 14:45 EDT) COVID-19 rt-PCR Result Negative Negative 11/13/2019 13:[address] [facility] Comment: Negative results do not preclude 2019-nCoV infection and should not be used as the sole basis for treatment or other patient management decisions. Negative results must be combined with clinical observations, patient history, and epidemiological information. This test was developed and its performance characteristics determined by [facility]. It has not been cleared [...] by the FDA Performed on the [employer] 7500 Fast. Performing Lab [facility] Hospital Lab 11/13/2019 13:[address] [facility] Swab ENTIRE NASOPHARYNX / Unknown 11/12/2019 14:45 EDT 11/12/2019 20:51 EDT Provider Outr Resulting Lab MICROBIOLOGY - GENERAL ORDERABLES [facility] [address] [place] [address] documented in this encounter Visit Diagnoses Not on filedocumented in this encounter Care Teams Dessert Cup Machine Feeder Relationship Specialty Start Date End Date Yung Horn MD [address] [place] [place] [address] PCP - General 01/26/18 documented as of this encounter
[2024-02-21 15:45] LABS: HGB 11.6 g/dL (13.5-17.5); MCH 30.1 pg (27.0-33.0); MCHC 34.1 % (32.0-36.0); MCV 88 fL (80-95); MPV 10.1 fL (8.0-11.0); Platelet Count 236 10^3/uL (130-400); RBC 3.85 10^6/uL (4.36-5.78); RDW 12.4 % (11.8-14.1); RDW-SD 39.6 fL; WBC 7.86 10^3/uL (4.4-10.8)
[2024-02-21 16:06] LABS: ESR 51 mm/hr (0-20)
[2024-02-21 17:20] LABS: ALT 15 U/L (16-63); AST 8 U/L (15-37); Albumin 2.9 g/dL (3.4-5.0); Alkaline Phosphatase 89 U/L (46-116); Anion Gap 12.4 mmol/L (3-11); BUN 13 mg/dL (7-18); Bilirubin, Total 0.61 mg/dL (0.2-1.0); C-Reactive Protein 15.69 mg/dL (<or=0.5); CO2 24.6 mmol/L (21.0-32.0); CREATININE 1.1 mg/dL (0.70-1.30); Calcium 9.1 mg/dL (8.5-10.1); Chloride 99 mmol/L (98-107); Estimated GFR 73.58 (mL/min/1.73m2); Glucose 326 mg/dL (74-106); Magnesium 1.6 mg/dL (1.8-2.4); Potassium 4.4 mmol/L (3.5-5.1); Sodium 136 mmol/L (136-145); Total Protein 6.4 g/dL (6.4-8.2)
[2024-02-22 20:35] LABS: COMMENT (LAB VIEW ONLY) 178.89 mg/dL
== END 2024-02-21 09:28 | disposition home or self-care (01) ==
LOC: NCHCN 09:27
PROVIDERS: PCP Family Medicine; Visit Provider Student in an Organized Health Care Education/Training Program
DX: E83.42 Hypomagnesemia (principal)
CPT/HCPCS: 80053; 85027; 85652; 87077; 82043; 82570; 83735; 86140; 87070; 87186; 87205

== ENCOUNTER 2024-03-03 13:15 | Emergency (ER) | payer MEDICARE, SELFPAY ==
[2024-03-03 13:30] VITALS: BP 107/67; PULSE 100; RESP 15; TEMP 37.2; O2SAT 94
--- OUTSIDE RECORDS SUMMARY | 2024-03-03 13:32 | XMS_ITS | Encounter Summary ---
Author Organization [facility] [place] [address] Care Team Providers Care Floor Specialist Name Role Phone Yung Horn MD Primary Care Provider [phone] Encounter Details Date Type Department Care Team (Late st Contact Info) Description 02/15/2024 1:00 PM EDT Office [place] [address] Nikolay Reyez MD [facility] [place] [address] Acquired buried penis Social History Tobacco Use [...] non tender, nondistended : Incision is c/d/I. [place] in place. Some minor erythema at prior [...] Care Team (Late st Contact Info) Description 03/13/2024 3:00 PM EDT Office [place] [address] Manoj Vinson MD [facility] [place] [address] documented as of this encounter Visit Diagnoses Diagnosis Acquired buried penis Other specified disorder of penis documented in this encounter Care Teams Floor Specialist Relationship Specialty Start Date End Date Yung Horn MD [address] [place] [address] [place] [address] PCP - General 11/22/16 documented as of this encounter
--- OUTSIDE RECORDS SUMMARY | 2024-03-03 13:32 | XMS_ITS | Encounter Summary ---
[place] [address] Care Team Providers Care Certified Personal Chef Name Role Phone Yung Horn MD Primary Care Provider [phone] Reason for Referral * Diagnostic Test (Routine) - Closed Specialty Diagnoses / Procedures Referred By Marisela ramesh Referred To Contact Radiology Diagnoses Malfunction of penile prosthesis, initial encounter Procedures CT Abdomen & Pelvis wo Contrast Manoj Vinson MD [facility] [place] [address] [facility] [place] [address] Referral ID Status Reason Start Date Expiration Date V isits Requested Visits Authorized [id number] Closed Specialty Service Requested 07/25/2023 01/22/2025 1 1 Reason for Visit * Consultation (Routine) - Authorized Specialty Diagnoses / Procedures Referred By Marisela ramesh Referred To Contact Urology Diagnoses Erectile dysfunction, unspecified erectile dysfunction type Other mechanical complication of implanted penile prosthesis, initial encounter 3 [id number] PL[address] BAUMANN NOT FUNCTIONING Sherlyn [place], ROBBI [address] [place] [address] [facility] [place] [address] Referral ID Status Reason Start Date Expiration Date Visits Requested Visits Authorized [id number] Authorized Consult, Test & Treat PCP Updated and/or Approved 3 06/04/2024 6 6 Encounter Details Date Type Department Care Team (Late st Contact Info) Description 07/25/2023 11:00 AM EST Office Visit Urology at [facility] [place] [address] Manoj Vinson MD [facility] [place] [address] Malfunction of penile prosthesis, initial encounter; Acquired [...] and distal measurements were 6 cm bilaterally. [place] was placed on the right in the [...] 3:00 PM EDT [place] [address] Manoj Vinson MD [facility] [place] [address] documented as of this encounter Procedures Procedure [...] who have questions please contact the health pharmacy customer care specialist that requested your imaging first. ? Electronically signed by: Puneet Rodriguez MD, [facility] ([phone]), at 09/20/2023 8:26 AM Narrative 09/20/2023 8:26 [...] patients who have questions please contactthe health pharmacy customer care specialist that requested your imaging first. Electronically signed by: Puneet Rodriguez MD, [facility]([phone]), at 09/20/2023 8:26 AM Manoj Vinson MD IM CT ORDERABLES * (ABNORMAL) Hemoglobin A1c (07/25/2023 12:01 PM EST) Hemoglobin A1c 6.3(H) 4.3 - 5.6 % [facility] Comment: Reference Range: 4.3 - 5.6% [...] Mellitus, Diabetes Care 2013; 36: Suppl. 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
--- OUTSIDE RECORDS SUMMARY | 2024-03-03 13:32 | XMS_ITS | Encounter Summary ---
[place] [address] Care Team Providers Care Electronics Test Engineer Name Role Phone Yung Horn MD Primary Care Provider [phone] Encounter Details Date Type Department Care Team (Late st Contact Info) Description 11/10/2023 Orders Only Urology at [address] [phone] Manoj Vinson MD [facility] [place] [address] Acquired buried penis Social History Tobacco Use [...] 3:00 PM EDT Office [place] [address] Manoj Vinson MD [facility] [place] [address] Scheduled Orders Name Type Priority Associated Diagnoses Orde r Schedule SURGICAL CASE REQUEST: ADJ.TISSUE TRANSFER, REARRANGEMENT, 10.1 TO 30 SQ.CM, GENITALIA (WRVU 10.83) Procedures Routine Acquired buried penis Ordered: 11/10/2023 documented as of this encounter Visit Diagnoses Diagnosis 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
--- OUTSIDE RECORDS SUMMARY | 2024-03-03 13:32 | XMS_ITS | Encounter Summary ---
[place] [address] Care Team Providers Care Line Cook Name Role Phone Yung Horn MD Primary Care Provider [phone] Reason for Referral * Diagnostic Test (Routine) - Closed Specialty Diagnoses / Procedures Referred By Contac t Referred To Contact Radiology Diagnoses Malfunction of penile prosthesis, initial encounter Procedures CT Abdomen & Pelvis wo Contrast Manoj Vinson MD [facility] [place] [address] [facility] [place] [address] Referral ID Status Reason Start Date Expiration Date V isits Requested Visits Authorized [id number] Closed Specialty Service Requested 07/25/2023 01/22/2025 1 1 Reason for Visit * Diagnostic Test (Routine) - Closed Specialty Diagnoses / Procedures Referred By Contac t Referred To Contact Radiology Diagnoses Malfunction of penile prosthesis, initial encounter Procedures CT Abdomen & Pelvis wo Contrast Manoj Vinson MD [facility] [address] [facility] [place] [address] Referral ID Status Reason Start Date Expiration Date V isits Requested Visits Authorized [id number] Closed Specialty Service Requested 07/25/2023 01/22/2025 1 1 Encounter Details Date Type Department Care Team (Latest Contact Info) Description 09/18/2023 2:20 PM EDT - 09/18/2023 11:59 PM EDT Hospital Encounter CT Scan at [facility] [place] [address] Manoj Vinson MD [facility] [place] [address] Malfunction of penile prosthesis, initial encounter Discharge [...] 3:00 PM EDT [place] [address] Manoj Vinson MD [facility] [place] [address] documented as of this encounter Procedures Procedure [...] who have questions please contact the health progressive care manager that requested your imaging first. ? Electronically signed by: Puneet Rodriguez MD, [facility] ([phone]), at 09/20/2023 8:26 AM Narrative 09/20/2023 8:26 [...] patients who have questions please contactthe health progressive care manager that requested your imaging first. Electronically signed by: Puneet Rodriguez MD, [facility]([phone]), at 09/20/2023 8:26 AM Manoj Vinson MD IMG CT ORDERABLES documented in this encounter Visit Diagnoses Diagnosis Malfunction of penile prosthesis, initial encounter documented in this encounter Care Teams Line Cook Relationship Specialty Start Date End Date Yung Horn MD [address] [place] [address] PCP - General 11/22/16 documented as of this encounter
--- OUTSIDE RECORDS SUMMARY | 2024-03-03 13:32 | XMS_ITS | Encounter Summary ---
Author Organization [facility] [place] [address] Care Team Providers Care Drawer Waxer Name Role Phone Yung Horn MD Primary Care Provider Encounter Details Date Type Department Care Team (Late st Contact Info) Description 02/21/2024 [place] [phone] Meghna Beasley Social History Tobacco Use Types Packs/Day Years [...] 3:00 PM EDT [place] [address] Manoj Vinson MD [facility] [place] [address] documented as of this encounter Visit Diagnoses Not on filedocumented in this encounter Care Teams Drawer Waxer Relationship Specialty Start Date End Date Yung Horn MD [address] [place] [address] [place] [address] PCP - General 11/22/16 documented as of this encounter
--- OUTSIDE RECORDS SUMMARY | 2024-03-03 13:32 | XMS_ITS | Encounter Summary ---
[place] [address] Care Team Providers Care Apparatus Lineman Name Role Phone Yung Horn MD Primary Care Provider [phone] Encounter Details Date Type Department Care Team [...] 3:00 PM EDT [place] [address] Manoj Vinson MD [facility] [address] documented as of this encounter Visit Diagnoses Not on filedocumented in this encounter Care Teams Apparatus Lineman Relationship Specialty Start Date End Date Yung Horn MD [address] [place] [address] [place] [address] PCP - General 11/22/16 documented as of this encounter
--- OUTSIDE RECORDS SUMMARY | 2024-03-03 13:32 | XMS_ITS | Encounter Summary ---
[place] [address] Care Team Providers Care Inventory Representative Name Role Phone Yung Horn MD Primary Care Provider [phone] Encounter Details Date Type Department Care Team [...] 3:00 PM EDT [place] [address] Manoj Vinson MD [facility] [place] [address] documented as of this encounter Visit Diagnoses Not on filedocumented in this encounter Care Teams Inventory Representative Relationship Specialty Start Date End Date Yung Horn MD [address] [place] [address] [place] [address] PCP - General 11/22/16 documented as of this encounter
--- OUTSIDE RECORDS SUMMARY | 2024-03-03 13:32 | XMS_ITS | Encounter Summary ---
Author Organization [facility] [place] [address] Care Team Providers Care Electrical Line Mechanic Name Role Phone Yung Horn MD Primary Care Provider Encounter Details Date Type Department Care Team (Late st Contact Info) Description 02/22/2024 11:40 AM EDT [place] [address] Manoj Vinsno MD [facility] [place] [place] [address] Failure of penile implant, subsequent encounter; Acquired buried penis; Type 2 diabetes [...] Sign Reading Time Taken Comments Blood Pressure 127/79 02/22/2024 11:27 AM EDT Pulse 89 02/22/2024 11:27 AM EDT Temperature - - Respiratory Rate - - Oxygen Saturation - - Inhaled Oxygen Concentration - - Weight - - Height - - Body Mass Index - - documented in this encounter Progress Notes * Manoj Vinson MD - 02/22/2024 11:40 AM EDT S: I saw Mr. 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 He underwent buried penis repair at [facility] 2 weeksago. Pathology returned unremarkable. His drain was removed by resident staff last week. He says hehas been uncomfortable during surgery. He also notes he has not been compliant with postoperative instructions. He has not been icing his wound or applying bacitracin as directed. He saw his PCP, whoprescribed a week of Bactrim DS twice daily but he has not started this medication yet. He also notes that his blood sugars have been trending high. Past medical, surgical and social histories have not changed since our last visit except as above. Medications and allergies remain the same. A thorough 12 point review of systems was performed todayand there are no pertinent positives except for those listed in history of present illness. O: On physical exam [...] No abdominal or inguinal hernias are seen. Suprapubic incision is healing well. Drain sites have healed well. Nidhi were removed today. His phallus is circumcised. There are no [...] detail and he is interested in proceeding. I advised himthat this will have to wait until he is fully healed from buried penis repair, and that this healing would occur faster if he were compliant with postoperative instructions. Regarding his acquired buried penis history, he is healing well following surgery. There are no wound concerns at this time. His nidhi were removed today without issue. I reiterated the importance of applying bacitracin to his wound, icing his wound, massaging his wound, completing his course of Bactrim, and keeping his blood glucose under control. I reassured him that his wound is healing well. I will see him back in 2 weeks for wound check and continued postoperative monitoring. He expressed understanding of this plan, and all questions were answered to his satisfaction. I will keep you updated as we move forward. Thank you very much for this kind referral. Please do not hesitate to contact me if you have any questions. 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
--- OUTSIDE RECORDS SUMMARY | 2024-03-03 13:32 | XMS_ITS | Encounter Summary ---
Author Organization [facility] [place] [address] Care Team Providers Care Personal Carer Name Role Phone Yung Horn MD Primary Care Provider [phone] Encounter Details Date Type Department Care Team (Late st Contact Info) Description 04/20/2022 Ancillary Procedure [place] [phone] Yung Horn MD [facility] [place] [address] Social History Tobacco Use Types Packs/Day Years [...] 3:00 PM EDT [place] [address] Manoj Vinson MD [facility] [place] [address] documented as of this encounter Procedures Procedure [...] FILM LIBRARY ORD ERABLES Performing Organization Address City/State/[facility] Co de Phone Number [place], [place] documented in this encounter Visit Diagnoses Not on filedocumented in this encounter Care Teams Personal Carer Relationship Specialty Start Date End Date Yung Horn MD [address] [place] [address] PCP - General 11/22/16 documented as of this encounter
--- OUTSIDE RECORDS SUMMARY | 2024-03-03 13:32 | XMS_ITS | Encounter Summary ---
[place] [address] Care Team Providers Care Reactor Fueling Supervisor Name Role Phone Yung Horn MD Primary Care Provider [phone] Encounter Details Date Type Department Care Team [...] 3:00 PM EDT [place] [address] Manoj Vinson MD [facility] [place] [address] documented as of this encounter Visit Diagnoses Not on filedocumented in this encounter Care Teams Reactor Fueling Supervisor Relationship Specialty Start Date End Date Yung Horn MD [address] [place] [address] [place] [address] PCP - General 11/22/16 documented as of this encounter
--- OUTSIDE RECORDS SUMMARY | 2024-03-03 13:32 | XMS_ITS | Encounter Summary ---
Author Organization [facility] [place] [address] Care Team Providers Care Urinalysis Technician Name Role Phone Yung Horn MD Primary Care Provider [phone] Reason for Visit * Auth/Cert (Routine) Specialty Diagnoses / Procedures Referred By Contac t Referred To Contact Diagnoses Acquired buried penis Acquired buried penis Procedures PRO ADJ TISS TRANSFER HEAD, FAC, HAND 10.1-30 ADJ.TISSUE TRANSFER, REARRANGEMENT, 10.1 TO 30 SQ.CM, GENITALIA (WRVU 10.83) Manoj Vinson MD [facility] [place] [address] [facility] Referral ID Status Reason Start Date Expiration Date Visits Re quested Visits Authorized [id number] 1 1 Encounter Details Date Type Department Care Team (Latest Contact Info) Description 02/08/2024 7:15 AM EDT - 02/08/2024 12:24 PM EDT Hospital Encounter PACU at [address] [address] Manoj Vinson MD [facility] [place] [address] Discharge Disposition: Home Social History Tobacco Use [...] removal (with me). This will be at [facility]. You will be contacted with the exact date and time. Please follow the below discharge instructions and contact my office if you have any questions. - If you were seen in clinic at [facility] in [place] call [phone]. - If you were seen in clinic at in [place] call [phone]. - If you were seen in clinic at [facility] in [place] call [phone]. - If you were seen in clinic at [facility] call [phone]. POSTOPERATIVE INSTRUCTIONS BURIED PENIS SURGERY Wound Care [...] to prescriptions. Prescriptions to be sent to [facility]. * Ana Laura Elizondo RN - [...] and distal measurements were 6 cm bilaterally. Winton was placed on the right in the [...] to proceed with buried penis repair at [facility] on February 07. Informed consent was [...] - 02/08/2024 10:57 AM EDT [facility] Brief Operative Note [address] Patient Name: Yung Betancur : [id number] MR#: [id number] Case Date: 02/08/2024 Case Scheduled Time: 829 [...] - 02/08/2024 9:24 AM EDT [facility] Operative Note [address] Patient Name: Yung Betancur : [id number] MR#: [id number] Case Date: 02/08/2024 Case Scheduled Time: 829 SURGEON: Manoj Vinson MD CHARGE MASTER COORDINATOR: Shannon Rios MD ANESTHESIOLOGIST: Herb Stone CRNA [...] 3:00 PM EDT Office Visit Urology at [facility] [address] Manoj Vinson MD [facility] [place] [address] documented as of this encounter Procedures Procedure Name Priority Date/Time Associated Diagnosis Comments POCT GLUCOSE Routine 02/08/2024 10:56 AM EDT SPECIMEN TO PATHOLOGY Routine 02/08/2024 10:38 AM EDT SURGICAL PATHOLOGY REPORT Routine 02/08/2024 10:27 AM EDT POCT GLUCOSE Routine 02/08/2024 9:52 AM EDT Adj Tiss Transfer Head, Fac, Hand 10.1-30 ([id number]) 02/08/2024 8:57 AM EDT Acquired buried penis POCT GLUCOSE Routine 02/08/2024 8:48 AM EDT POCT GLUCOSE Routine 02/08/2024 8:09 AM EDT documented in this encounter Results * (ABNORMAL) POCT Glucose (02/08/2024 10:56 AM EDT) Glucose, POC 234(H) 65 - 199 mg/dL [facility] Blood 02/08/2024 10:5 6 AM EDT 02/08/2024 10:56 AM EDT Manoj Vinson MD POINT OF CARE TEST O RDERABLES [facility] [address] [place] [address] * Specimen to Pathology (02/08/2024 10:38 AM EDT) AP Specimen 02/08/2024 10:3 8 AM EDT 02/08/2024 10:[address] [facility] - 02/08/2024 10:38 AM EDT Specimen requisition ordered. ??Separate Pathology report to follow Manoj Vinson MD PATHOLOGY/CYTOLOGY O SANDOVAL [facility] [place] [address] * Surgical Pathology Report (02/08/2024 10:27 AM EDT) Surgical Pathology Report [id number] ? Location: [facility]; [address] The signing pathologist has (i) examined the relevant preparation(s) for the specimen(s) and (ii) rendered or confirmed the diagnosis(es). . ?Surgical Pathology DIAGNOSIS A - Subcutaneous fibroadipose tissue, suprapubic fat pad-clinically Gross surgical pathology examination. Electronically signed by: ?Cuca Berrios MD, Latonya Verified: ??02/13/2024 10:11 Performed at: ??-[facility] Dept. of Pathology, [place] [address] Grief Counselor: Ramez Osborn MD, AP, ??CLIA Certificate: [id number] SPECIMEN(S) SUBMITTED A - A: Suprapubic Fat Pad, excision (1) CLINICAL INFORMATION Acquired buried penis SPECIMEN PROCESSING A - Labeled/Fixative : Suprapubic fat pad, formalin. Quantity/Size/We ight: Multiple, 14.0 x 11.5 x 3.5 cm, 186 g. Tissue Description: Constantino to yellow-red subcutaneous fibrofatty tissue. Skin: Unremarkable. Sectioning: Adipose and focal, ho-white fibrous tissue. Sections/Process ing: No sections submitted, gross diagnosis only ??shb [facility] 02/08/2024 10:2 7 AM EDT Manoj S Gross MD PATHOLOGY/CYTOLOGY O RDMAGUI [facility] [place] [address] * (ABNORMAL) POCT Glucose (02/08/2024 9:52 AM EDT) Glucose, POC 211(H) 65 - 199 mg/dL [facility] Blood 02/08/2024 9:52 AM EDT 02/08/2024 9:52 AM EDT Narrative Authorizing Provider Result Jose Maria Vinson MD POINT OF CARE TEST O RDERAALINE Performing Organization Address City/[facility]/ZIP Co de Phone Number [facility] [address] [place] [phone] * (ABNORMAL) POCT Glucose (02/08/2024 8:48 AM EDT) Glucose, POC 285(H) 65 - 199 mg/dL [facility] Blood 02/08/2024 8:48 AM EDT 02/08/2024 8:48 AM EDT Narrative Authorizing Provider Result Jose Maria Vinson MD POINT OF CARE TEST O RDERAALINE Performing Organization Address City/[facility] Co de Phone Number [facility] [address] [place] [address] * (ABNORMAL) POCT Glucose (02/08/2024 8:09 AM EDT) Glucose, POC 315(H) 65 - 199 mg/dL [facility] Blood 02/08/2024 8:09 AM EDT 02/08/2024 8:09 AM EDT Narrative Authorizing Provider Result Jose Maria Vinson MD POINT OF CARE TEST O RDERAALINE Performing Organization Address City/[facility]/ZIP Co de Phone Number [facility] [address] [place] [phone] documented in this encounter Visit Diagnoses Not [...] RN) documented in this encounter Care Teams Urinalysis Technician Relationship Specialty Start Date End Date Yung Horn MD [address] [place] [address] PCP - General 11/22/16 documented as of this encounter
--- OUTSIDE RECORDS SUMMARY | 2024-03-03 13:32 | XMS_ITS | Encounter Summary ---
Author Organization [facility]ly [facility] Dorothy [facility] [place] [address] Care Team Providers Care Pharmacy Technician Program Director Name Role Phone Yung Horn MD Primary Care Provider [phone] Encounter Details Date Type Department Care Team (Late st Contact Info) Description 08/29/2023 Telephone Urology at [facility] [address] [place] [address] Huong Apple Social History Tobacco Use [...] 3:00 PM EDT [place] [address] Manoj Vinson MD [facility] [place] [address] documented as of this encounter Visit Diagnoses Not on filedocumented in this encounter Care Teams Pharmacy Technician Program Director Relationship Specialty Start Date End Date Yung Horn MD [address] [place] [address] PCP - General 11/22/16 documented as of this encounter
--- OUTSIDE RECORDS SUMMARY | 2024-03-03 13:32 | XMS_ITS | Encounter Summary ---
[place] [address] Care Team Providers Care Electric Motor Repair Supervisor Name Role Phone Yung Horn MD Primary Care Provider [phone] Encounter Details Date Type Department Care Team (Latest Contact Info) Description 02/22/2024 Travel Social History Tobacco Use Types Packs/Day [...] 3:00 PM EDT [place] [address] Manoj Vinson MD [facility] [place] [address] documented as of this encounter Visit Diagnoses Not on filedocumented in this encounter Care Teams Electric Motor Repair Supervisor Relationship Specialty Start Date End Date Yung Horn MD [address] [place] [address] [place] [address] PCP - General 11/22/16 documented as of this encounter
--- OUTSIDE RECORDS SUMMARY | 2024-03-03 13:32 | XMS_ITS | Encounter Summary ---
Author Organization Formerly [facility] [place] [address] Care Team Providers Care Cone Trucker Name Role Phone Yung Horn MD Primary Care Provider [phone] Encounter Details Date Type Department Care Team (Late st Contact Info) Description 01/31/2024 10:20 AM EDT [place] [address] Manoj Vinson MD [facility] [place] [address] Acquired buried penis; Failure of penile implant, [...] and distal measurements were 6 cm bilaterally. Moffat was placed on the right in the [...] to proceed with buried penis repair at [facility] on February 07. Informed consent was [...] 3:00 PM EDT [place] [address] Manoj Vinson MD [facility] [place] [address] documented as of this encounter Procedures Procedure [...] 11:41 AM EDT) Neutrophil % 69.7 % [facility] Neutrophil Absolute 4.29 1.70 - 6.10 x10(3)/[facility] Lymph % 18.0 % [facility] Lymphocytes Abs 1.1 0.9 - 3.2 x10(3)/[facility] Monocyte % 8.3 % [facility] Monocyte Abs 0.5 0.3 - 0.9 x10(3)/[facility] Eos % 3.1 % [facility] Eosinophils Abs 0.2 0.0 - 0.4 x10(3)/[facility] Basophil % 0.3 % [facility] Baso Absolute 0.0 0.0 - 0.1 x10(3)/[facility] Immature Gran % 0.60 % [facility] Comment: Immature granulocytes(IG's)percentage and absolute count will include metamyelocytes, myelocytes, and promyelocytes. Blood smears from CBCs yielding IG's will be scanned manually for concordance. If this scan disagrees with the automated IG or if promyelocytes are noted, a manual differential will be performed. Immature Gran Absolute 0.04 0.00 - 0.04 x10(3)/[facility] Blood 01/31/2024 11:4 1 AM EDT 01/31/2024 11:52 AM EDT Narrative Resulting Agency Comment Spec In Lab Manoj Vinson MD HEMATOLOGY ORDERABLE S [facility] [place] [address] * (ABNORMAL) Hemogram (01/31/2024 11:41 AM EDT) White Blood Cell 6.2 4.0 - 9.5 x10(3)/mc L [facility] Red Blood Cell 4.67 4.58 - 5.54 x10(6)/mc L [facility] Hemoglobin 14.0 13.7 - 16.5 g/dL [facility] Hematocrit 39.7(L) 40.5 - 48.5 % [facility] Mean Cell Volume 85.0 82.9 - 93.1 fL [facility] Mean Cell Hemoglobin 30.0 27.5 - 32.1 pg [facility] Mean Cell Hemoglobin Concentration 35.3 32.0 - 35.7 g/dL [facility] Platelet 132(L) 145 - 357 x10(3)/mc L [facility] RDW Standard Deviation 41.1 36.0 - 45.0 fL [facility] RDW coefficient of variation 13.2 11.4 - 13.8 % [facility] Mean Platelet Volume 10.3 7.6 - 12.9 fL [facility] NRBC% auto 0.0 % [facility] NRBC Absolute 0.000 0.000 - 0.000 x10(3)/mc L [facility] Blood 01/31/2024 11:4 1 AM EDT 01/31/2024 11:52 AM EDT Narrative Resulting Agency Comment Spec In Lab Manoj Vinson MD HEMATOLOGY ORDERABLE S Performing Organization Address [facility] Co de Phone Number [facility] [place] [address] * (ABNORMAL) Hemoglobin A1c (01/31/2024 11:41 AM EDT) Hemoglobin A1c 8.2(H) 4.3 - 5.6 % [facility] Comment: Reference Range: 4.3 - 5.6% [...] Mellitus, Diabetes Care 2013; 36: Suppl. 1, N49-62 Estimated Average Glucose 189 mg/dL [facility] Blood 01/31/2024 11:4 1 AM EDT 01/31/2024 11:52 AM EDT Narrative Resulting Agency Comment Spec In Lab Manoj Vinson MD CHEMISTRY ORDERABLES Performing Organization Address [facility] Co de Phone Number [facility] [place] [address] * (ABNORMAL) Basic Metabolic Panel (non-fasting) (01/31/2024 11:41 AM EDT) Glucose 289(H) 65 - 199 mg/dL [facility] Comment:Diabetes: >=200 mg/d L plus symptoms Blood Urea Nitrogen 13 10 - 20 mg/dL [facility] Creatinine 0.86 0.80 - 1.50 mg/dL [facility] Sodium 138 135 - 145 mmol/L [facility] Potassium 4.4 3.5 - 5.0 mmol/L [facility] Comment: Please note: ??Patients with WBC >100,000 may have falsely elevated Potassium levels. ??For accurate Potassium quantification in these patients send serum separator tube (gold top) for subsequent determinations. ??Contact the Clinical Chemistry Laboratory if there are any questions. Chloride 102 98 - 107 mmol/L [facility] Carbon Dioxide 25 22 - 31 mmol/L [facility] Anion Gap 11 5 - 15 mmol/L [facility] Calcium 9.5 8.5 - 10.5 mg/dL [facility] Est Glomerular Filtration Rate 95 >=60 mL/min/1. 73 m?? [facility] Comment: This patient's estimated GFR was [...] In Lab Manoj Vinson MD CHEMISTRY ORDERABLES [facility] [place] [address] * EKG 12 Lead (01/31/2024 11:28 AM EDT) Ventricular rate 74 BPM MUSE SYSTEM Atrial Rate 74 BPM MUSE SYSTEM P-R Interval 178 ms MUSE SYSTEM QRS Duration 94 ms MUSE SYSTEM Q-T Interval 374 ms MUSE SYSTEM QTC Calculated (Bezet) 415 ms MUSE SYSTEM Calculated P [place] 62 degrees MUSE SYSTEM Calculated R [place] -7 degrees MUSE SYSTEM Calculated T [place] 40 degrees MUSE SYSTEM INTERPRETATION Normal sinus rhythm Normal ECG When compared with ECG of 29-JUL-2021 19:58, No significant change was found I personally reviewed the tracing and edited the fellows interpretation Confirmed by fellow MD Orlando, Tyson ([id number]) on 01/31/2024 3:44:24 PM Confirmed by MD Toma, Brendan ([id number]) on 01/31/2024 5:33:32 PM MUSE SYSTEM 01/31/2024 11:2 8 AM EDT 01/31/2024 5:33 PM EDT Manoj Vinson MD ECG ORDERABLES MUSE SYSTEM documented in this encounter Visit Diagnoses Diagnosis Acquired buried penis Other specified disorder of penis Failure of penile implant, subsequent encounter documented in this encounter Care Teams Cone Trucker Relationship Specialty Start Date End Date Yung Horn MD [address] [place] [address] PCP - General 11/22/16 documented as of this encounter
--- OUTSIDE RECORDS SUMMARY | 2024-03-03 13:32 | XMS_ITS | Encounter Summary ---
[place] [address] Care Team Providers Care Lead Business Analyst Name Role Phone Yung Horn MD Primary Care Provider [phone] Encounter Details Date Type Department Care Team [...] 3:00 PM EDT [place] [address] Manoj Vinson MD [facility] [place] [address] documented as of this encounter Visit Diagnoses Not on filedocumented in this encounter Care Teams Lead Business Analyst Relationship Specialty Start Date End Date Yung Horn MD [address] [place] [address] [place] [address] PCP - General 11/22/16 documented as of this encounter
--- OUTSIDE RECORDS SUMMARY | 2024-03-03 13:32 | XMS_ITS | Encounter Summary ---
Author Organization [facility] [place] [address] Care Team Providers Care Scaffolding Helper Name Role Phone Yung Horn MD Primary Care Provider [phone] Encounter Details Date Type Department Care Team (Late st Contact Info) Description 11/08/2023 3:00 PM EDT [place] [phone] Manoj Vinson MD [facility] [address] Failure of penile implant, subsequent encounter; Acquired [...] and distal measurements were 6 cm bilaterally. [place] was placed on the right in the [...] 3:00 PM EDT [place] [address] Manoj Vinson MD [facility] [place] [address] documented as of this encounter Visit Diagnoses Diagnosis Failure of penile implant, subsequent encounter Acquired buried penis Other specified disorder of penis documented in this encounter Care Teams Scaffolding Helper Relationship Specialty Start Date End Date Yung Horn MD [address] [place] [address] PCP - General 11/22/16 documented as of this encounter
--- OUTSIDE RECORDS SUMMARY | 2024-03-03 13:32 | XMS_ITS | Encounter Summary ---
[place] [address] Care Team Providers Care Setter Out Name Role Phone Yung Horn MD Primary Care Provider [phone] Encounter Details Date Type Department Care Team (Late Contact Info) Description 09/20/2023 [place] [address] Korey Ellis, RN Social History [...] will be getting a call from the medical office secretary to schedule a follow-up appointment. documented in this encounter Plan of Treatment Upcoming Encounters Date Type Department Care Team (Late Contact Info) Description 03/13/2024 3:00 PM EDT [place] [address] Manoj Vinson MD [facility] [address] documented as of this encounter Visit Diagnoses Not on filedocumented in this encounter Care Teams Setter Out Relationship Specialty Start Date End Date Yung Horn MD [address] [place] [address] PCP - General 11/22/16 documented as of this encounter
--- OUTSIDE RECORDS SUMMARY | 2024-03-03 13:32 | XMS_ITS | Encounter Summary ---
[place] [address] Care Team Providers Care Training Development Manager Name Role Phone Yugn Horn MD Primary Care Provider [phone] Reason for Visit * Diagnostic Test (Routine) - Closed Specialty Diagnoses / Procedures Referred By Contac t Referred To Contact Neurology Diagnoses Impingement syndrome of left shoulder Ching Murray PA [address] [place] [address] [facility] [address] [place] [address] Referral ID Status Reason Start Date Expiration Date V isits Requested Visits Authorized [id number] Closed Test Only 01/06/2023 01/06/2024 1 1 Encounter Details Date Type Department Care Team (Latest Contact Info) Description 05/05/2023 8:00 AM EDT Procedure [place] [address] Derrick Anderson DO Impingement syndrome [...] Anderson DO - 05/05/2023 8:00 AM EDT [facility] NERVE CONDUCTION AND ELECTROMYOGRAPHY EVALUATION - 05/05/23 BRIEF HISTROY: Yung Betancur is a 67 y.o. male referred for electrodiagnostic evaluation of upper extremity numbness by: Ching Murray PA [address] [place] [address]: Report scanned into EDH: 05/05/23 Focused History: [...] Derrick Anderson DO Neuromuscular Medicine Neurology Department [facility] I spent a total of 30 Minutes [...] 3:00 PM EDT Office [place] [address] Manoj Vinson MD [facility] [place] [address] Scheduled Referrals Name Type Priority Associated Diagnoses Orde r Schedule Referral to Neurology Outpatient Referral Routine Impingement syndrome of left shoulder Ordered: 01/06/2023 documented as of this encounter Visit Diagnoses Diagnosis Impingement syndrome of left shoulder Other affections of shoulder region, not elsewhere classified documented in this encounter Care Teams Training Development Manager Relationship Specialty Start Date End Date Yung Horn MD [address] [place] [address] PCP - General 11/22/16 documented as of this encounter
--- OUTSIDE RECORDS SUMMARY | 2024-03-03 13:32 | XMS_ITS | Encounter Summary ---
[place] [address] Care Team Providers Care Building Serviceman Name Role Phone Yung Horn MD Primary Care Provider [phone] Reason for Referral * Consultation (Routine) - Duplicate Referral Specialty Diagnoses / Procedures Referred By Contac t Referred To Contact Neurology Diagnoses Impingement syndrome of left shoulder Ching Murray PA [address] [id number] [facility] [address] [place] [phone] Referral ID Status Reason Start Date Expiration Date Visits Requested Visits Authorized [id number] Duplicate Referral Consult, Test & Treat 03/14/2023 03/13/2024 1 1 Encounter Details Date Type Department Care Team (Late st Contact Info) Description 03/14/2023 Transcribe Orders eDH Incoming Referrals [phone] Ching Murray PA [address] [id number] Impingement syndrome of left shoulder Social History [...] 3:00 PM EDT Office [place] [address] Manoj Vinson MD [facility] [place] [address] Scheduled Referrals Name Type Priority Associated Diagnoses Orde r Schedule Referral to Neurology Outpatient Referral Routine Impingement syndrome of left shoulder Ordered: 03/14/2023 documented as of this encounter Visit Diagnoses Diagnosis Impingement syndrome of left shoulder Other affections of shoulder region, not elsewhere classified documented in this encounter Care Teams Building Serviceman Relationship Specialty Start Date End Date Yung Horn MD [address] [place] [address] PCP - General 11/22/16 documented as of this encounter
--- OUTSIDE RECORDS SUMMARY | 2024-03-03 13:32 | XMS_ITS | Encounter Summary ---
[place] [address] Care Team Providers Care Manager Hvac Name Role Phone Yung Horn MD Primary Care Provider [phone] Encounter Details Date Type Department Care Team [...] 3:00 PM EDT [place] [address] Manoj Vinson MD [facility] [place] [address] documented as of this encounter Visit Diagnoses Not on filedocumented in this encounter Care Teams Manager Hvac Relationship Specialty Start Date End Date Yung Horn MD [address] [place] [address] [place] [address] PCP - General 11/22/16 documented as of this encounter
--- OUTSIDE RECORDS SUMMARY | 2024-03-03 13:32 | XMS_ITS | Encounter Summary ---
Author Organization [facility] [place] [address] Care Team Providers Care Senior Mobile Solutions Architect Name Role Phone Yung Horn MD Primary Care Provider [phone] Encounter Details Date Type Department Care Team (Late st Contact Info) Description 02/01/2024 11:15 AM EDT Telephone Pre Admission Testing at [address] [address] Social History Tobacco Use Types [...] 3:00 PM EDT [place] [address] Manoj Vinson MD [facility] [place] [address] documented as of this encounter Visit Diagnoses Not on filedocumented in this encounter Care Teams Senior Mobile Solutions Architect Relationship Specialty Start Date End Date Yung Horn MD [address] [place] [address] PCP - General 11/22/16 documented as of this encounter
--- OUTSIDE RECORDS SUMMARY | 2024-03-03 13:32 | XMS_ITS | Encounter Summary ---
[place] [address] Care Team Providers Care Pizza Delivery Name Role Phone Yung Horn MD Primary Care Provider [phone] Encounter Details Date Type Department Care Team (Late st Contact Info) Description 01/22/2024 [place] [address] Huong Apple Social History Tobacco Use Types [...] 3:00 PM EDT Office [place] [address] Manoj Vinson MD [facility] [place] [address] documented as of this encounter Visit Diagnoses Not on filedocumented in this encounter Care Teams Pizza Delivery Relationship Specialty Start Date End Date Yung Horn MD [facility] [place] [address] PCP - General 11/22/16 documented as of this encounter
--- OUTSIDE RECORDS SUMMARY | 2024-03-03 13:32 | XMS_ITS | Encounter Summary ---
[place] [address] Care Team Providers Care Outdoor Pursuits Instructor Name Role Phone Yung Horn MD Primary Care Provider [phone] Encounter Details Date Type Department Care Team (Late st Contact Info) Description 03/01/2024 [place] [address] Yung Olivares MD [facility] [place] [address] Social History Tobacco Use Types Packs/Day Years [...] encounter Miscellaneous Notes * Telephone Encounter - Yung Olivares MD - 03/01/2024 5:01 PM EDT Call from via transfer center Seen by Dr Vinson 02/22/2024 I saw Mr. 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 He underwent buried penis repair at [facility] 2 weeks ago. Pathology returned unremarkable. His drain was removed by resident staff last week. He says he has been uncomfortable during surgery. He also notes he has not been compliant with postoperative instructions. He has not been icing his wound or applying bacitracin as directed. He saw his PCP, who prescribed a week of Bactrim DS twice daily but he has not started this medication yet. He also notes that his blood sugars have been trending high Some drainage from incision site, feels unwell. Loss of appetite. Sweats but no fever Some purulent fluid from his incision, cultured, no obvious abscess No cellulitis Type II DM WCC 10.2 BS 139 Impression: Wound Infection Plan: Augmentin F/U Next week. documented in this encounter Plan of Treatment Upcoming Encounters Date Type Department Care Team (Late st Contact Info) Description 03/13/2024 3:00 PM EDT Office [place] [address] Manoj Vinson MD [facility] [place] [address] documented as of this encounter Visit Diagnoses Not on filedocumented in this encounter Care Teams Outdoor Pursuits Instructor Relationship Specialty Start Date End Date Yung Horn MD [address] [place] [address] [place] [address] PCP - General 11/22/16 documented as of this encounter
--- OUTSIDE RECORDS SUMMARY | 2024-03-03 13:32 | XMS_ITS | Encounter Summary ---
[place] [address] Care Team Providers Care Hospital Ward Clerk Name Role Phone Yung Horn MD Primary Care Provider [phone] Encounter Details Date Type Department Care Team [...] 3:00 PM EDT Office [place] [address] Manoj Vinson MD [facility] [place] [address] documented as of this encounter Visit Diagnoses Not on filedocumented in this encounter Care Teams Hospital Ward Clerk Relationship Specialty Start Date End Date Yung Horn MD [address] [place] [address] [place] [address] PCP - General 11/22/16 documented as of this encounter
--- OUTSIDE RECORDS SUMMARY | 2024-03-03 13:32 | XMS_ITS | Encounter Summary ---
[place] [address] Care Team Providers Care Scroll Machine Operator Name Role Phone Yung Horn MD Primary Care Provider [phone] Encounter Details Date Type Department Care Team (Late st Contact Info) Description 02/24/2024 [place] [address] Rogers Quarles MD [facility] [place] [address] Social History Tobacco Use Types Packs/Day Years [...] encounter Miscellaneous Notes * Telephone Encounter - Rogers Quarles MD - 02/24/2024 7:47 PM EDT Telephone Note: CC: calling about bleeding after staple removal sp buried penis repair describes venous bleeding, dark in color. Tried pressure bandages with some improvement. Discussed holding direct pressure for 10-15 minutes as opposed to bandages as should all be superficial level bleeds. Also discussed the other way this would be handled is direct evaluation in the ED All questions answered; they are in agreement with this plan. Rogers Quarles MD documented in this encounter Plan of Treatment Upcoming Encounters Date Type Department Care Team (Late st Contact Info) Description 03/13/2024 3:00 PM EDT [place] [address] Manoj Vinson MD [facility] [place] [address] documented as of this encounter Visit Diagnoses Not on filedocumented in this encounter Care Teams Scroll Machine Operator Relationship Specialty Start Date End Date Yung Horn MD [address] [place] [address] PCP - General 11/22/16 documented as of this encounter
--- OUTSIDE RECORDS SUMMARY | 2024-03-03 13:32 | XMS_ITS | Encounter Summary ---
Author Organization [facility] [place] [address] Care Team Providers Care Washer Off Name Role Phone Yung Horn MD Primary Care Provider [phone] Reason for Visit * Reason Comments Medication Refill Encounter Details Date Type Department Care Team (Late st Contact Info) Description 03/07/2022 Ref[place] [address] Tatiana Call APRN [facility] [place] [address] HERR (nonalcoholic steatohepatitis) Social History Tobacco Use [...] 3:00 PM EDT [place] [address] Manoj Vinson MD [facility] [address] documented as of this encounter Visit Diagnoses Diagnosis HERR (nonalcoholic steatohepatitis) Other chronic nonalcoholic liver disease documented in this encounter Care Teams Washer Off Relationship Specialty Start Date End Date Yung Horn MD [address] [place] [address] PCP - General 11/22/16 documented as of this encounter
--- OUTSIDE RECORDS SUMMARY | 2024-03-03 13:32 | XMS_ITS | Clinical Summary ---
Author Organization Formerly [facility] Address [facility] [place] [address] Care Team Providers Care Law Secretary Name Role Phone Yung Horn MD Primary Care Provider [phone] Allergies Active Allergy Reactions Criticality Noted Date [...] relieved by tylenol). 10 tablet 02/08/2024 Active Additional Information Patient not taking.Reported on 02/22/2024 glipiZIDE XL (Glucotrol XL) 5 mg ER 24 hr tablet Take 5 mg by mouth daily. Active Active Problems Problem Noted Date Diagnosed [...] Encounters Date Type Department Care Team Description 03/03/2024 [place] [address] Tiana Felix MD 03/01/2024 [place] [address] Yung Olivares MD 02/24/2024 [place] [address] Rogers Quarles MD 02/22/2024 11:40 AM EDT Office Visit Urology at [place] [phone] Manoj Vinson MD Failure of penile implant, subsequent encounter; Acquired buried penis; Type 2 diabetes mellitus with other specified complication, without long-term current use of insulin 02/22/2024 Travel 02/21/2024 Telephone Urology at [place] [phone] Meghna Beasley 02/15/2024 1:00 PM EDT Office Visit Urology at [place] [phone] Nikolay Reyez MD Acquired buried penis 02/15/2024 Travel 02/08/2024 8:57 AM EDT Anesthesia Event Main OR at [address] [address] Herb Stone, Tatiana Werner CRNA 02/08/2024 8:30 AM EDT - 02/08/2024 11:00 AM EDT Surgery Main OR at [address] [address] Manoj Vinson MD ADJ.TISSUE TRANSFER, REARRANGEMENT, 10.1 TO 30 SQ.CM, GENITALIA (WRVU 10.83) 02/08/2024 7:15 AM EDT - 02/08/2024 12:24 PM EDT Hospital Encounter PACU at [address] [address] Manoj Vnison MD Discharge Disposition: Home 02/01/2024 11:15 AM EDT Telephone Pre Admission Testing at [address] [address] 01/31/2024 10:20 AM EDT Office Visit Urology at [place] [phone] Manoj Vinson MD Acquired buried penis; Failure of penile implant, subsequent encounter 01/31/2024 Orders Only Urology [address] [place] [phone] Manoj Vinson MD 01/31/2024 Travel 01/22/2024 [place] [phone] Dunia Appleghslade Hu from Last 3 Months Social History Tobacco [...] Pulse 89 02/22/2024 11:27 AM EDT Temperature 36.7 ??C (98 ??F) 02/08/2024 [...] 3:00 PM EDT [place] [phone] Manoj Vinson MD [facility] [place] [address] Health Maintenance Due Date Last Done Comments [...] 08/05/2015 Diabetes Screening (HgbA1C o r Glucose) Discontinued 01/31/2024, 01/31/2024, 07/25/2023, Additional history exists Medical Devices Implanted Type Area Diagrammer Device Identifier Shelf Expiration Date Model / Serial / Lot Prosthesis,Am s700ms,Kt,Acs ry ([id number]) - [id number] Implanted:Qty : 1 on 06/09/2015 by Ebenezer Patino III, MD at [facility] IMPLANTS N/A: Penis DO NOT USE [employer] - [id number] 04/28/2020 [id number] / / [id number] Prost,700,Cx, Mspump,15cmx1 2mm ([id number]) - [id number] Implanted:Qty : 1 on 06/09/2015 by Ebenezer Patino III, MD at [facility] IMPLANTS N/A: Penis DO NOT USE [employer] - [id number] 09/25/2016 [id number] / / [id number] Prosthesis,Sp ectracx-Lgx,4 cm ([id number]) - [id number] Implanted:Qty : 1 on 06/09/2015 by Ebenezer Patino III, MD at [facility] IMPLANTS N/A: Penis DO NOT USE [employer] - [id number] 02/24/2020 [id number] / / [id number] Prosthesis,70 0ms,Rsvr,65ml ([id number]) - [id number] Implanted:Qty : 1 on 06/09/2015 by Ebenezer Patino III, MD at [facility] IMPLANTS N/A: Penis DO NOT USE [employer] - [id number] 05/13/2017 [id number] / 0 / [id number] Procedures Procedure Name Priority Date/Time Associated Diagnosis Comments POCT GLUCOSE Routine 02/08/2024 10:56 AM EDT SPECIMEN TO PATHOLOGY Routine 02/08/2024 10:38 AM EDT SURGICAL PATHOLOGY REPORT Routine 02/08/2024 10:27 AM EDT POCT GLUCOSE Routine 02/08/2024 9:52 AM EDT Adj Tiss Transfer Head, Fac, Hand 10.1-30 ([id number]) 02/08/2024 8:57 AM EDT Acquired buried penis [...] Glucose, POC 234(H) 65 - 199 mg/dL [facility] Blood 02/08/2024 10:5 6 AM EDT 02/08/2024 10:56 AM EDT Manoj Vinson MD POINT OF CARE TEST O SANDOVAL Performing Organization Address City/[facility]/ZIP Co de Phone Number [facility] [address] [place] [address] * Specimen to Pathology (02/08/2024 10:38 AM EDT) AP Specimen 02/08/2024 10:3 8 AM EDT 02/08/2024 10:38 AM EDT Narrative [facility] - 02/08/2024 10:38 AM EDT Specimen requisition ordered. ??Separate Pathology report to follow Authorizing Provider Result Jose Maria Vinson MD PATHOLOGY/CYTOLOGY Jonathon NICK Performing Organization Address City/[facility] Co de Phone Number [facility] [place] [address] * Surgical Pathology Report (02/08/2024 10:27 AM EDT) Pathologist [facility] Surgical Pathology Report [id number] ? Location: [facility]; [address] The signing pathologist has (i) examined the relevant preparation(s) for the specimen(s) and (ii) rendered or confirmed the diagnosis(es). . ?Surgical Pathology DIAGNOSIS A - Subcutaneous fibroadipose tissue, suprapubic fat pad-clinically Gross surgical pathology examination. Electronically signed by: ?Cuca Berrios MD, Latonya Verified: ??02/13/2024 10:11 Performed at: ??-[facility] Dept. of Pathology, [place] [address] Asphalt Plant Laborer: Ramez Osborn MD, FCAP, ??CLIA Certificate: [id number] SPECIMEN(S) SUBMITTED A - A: Suprapubic Fat Pad, excision (1) CLINICAL INFORMATION Acquired buried penis SPECIMEN PROCESSING A - Labeled/Fixative : Suprapubic fat pad, formalin. Quantity/Size/We ight: Multiple, 14.0 x 11.5 x 3.5 cm, 186 g. Tissue Description: Constantino to yellow-red subcutaneous fibrofatty tissue. Skin: Unremarkable. Sectioning: Adipose and focal, ho-white fibrous tissue. Sections/Process ing: No sections submitted, gross diagnosis only ??shb [facility] 02/08/2024 10:2 7 AM EDT Manoj Vinson MD PATHOLOGY/CYTOLOGY O RDERABLES [facility] [place] [address] * (ABNORMAL) Hemogram (01/31/2024 11:41 AM EDT) White Blood Cell 6.2 4.0 - 9.5 x10(3)/mc L [facility] Red Blood Cell 4.67 4.58 - 5.54 x10(6)/mc L [facility] Hemoglobin 14.0 13.7 - 16.5 g/dL [facility] Hematocrit 39.7(L) 40.5 - 48.5 % [facility] Mean Cell Volume 85.0 82.9 - 93.1 fL [facility] Mean Cell Hemoglobin 30.0 27.5 - 32.1 pg [facility] Mean Cell Hemoglobin Concentration 35.3 32.0 - 35.7 g/dL [facility] Platelet 132(L) 145 - 357 x10(3)/mc L [facility] RDW Standard Deviation 41.1 36.0 - 45.0 fL [facility] RDW coefficient of variation 13.2 11.4 - 13.8 % [facility] Mean Platelet Volume 10.3 7.6 - 12.9 fL [facility] NRBC% auto 0.0 % [facility] NRBC Absolute 0.000 0.000 - 0.000 x10(3)/ L [facility] Blood 01/31/2024 11:4 1 AM EDT 01/31/2024 11:52 AM EDT Narrative Resulting Agency Comment Spec In Lab Manoj Vinson MD HEMATOLOGY ORDERABLE S [facility] [place] [address] * Differential, Automated (01/31/2024 11:41 AM EDT) Neutrophil % 69.7 % [facility] Neutrophil Absolute 4.29 1.70 - 6.10 x10(3)/[facility] Lymph % 18.0 % [facility] Lymphocytes Abs 1.1 0.9 - 3.2 x10(3)/[facility] Monocyte % 8.3 % [facility] Monocyte Abs 0.5 0.3 - 0.9 x10(3)/[facility] Eos % 3.1 % [facility] Eosinophils Abs 0.2 0.0 - 0.4 x10(3)/[facility] Basophil % 0.3 % [facility] Baso Absolute 0.0 0.0 - 0.1 x10(3)/[facility] Immature Gran % 0.60 % [facility] Comment: Immature granulocytes(IG's)percentage and absolute count will include metamyelocytes, myelocytes, and promyelocytes. Blood smears from CBCs yielding IG's will be scanned manually for concordance. If this scan disagrees with the automated IG or if promyelocytes are noted, a manual differential will be performed. Immature Gran Absolute 0.04 0.00 - 0.04 x10(3)/[facility] Blood 01/31/2024 11:4 1 AM EDT 01/31/2024 11:52 AM EDT Narrative Resulting Agency Comment Spec In Lab Authorizing Provider Result Jose Maria Vinsno MD HEMATOLOGY ORDERABLE S Performing Organization Address City/[facility]/ZIP Co de Phone Number [facility] [place] [address] * (ABNORMAL) Hemoglobin A1c (01/31/2024 11:41 AM EDT) Hemoglobin A1c 8.2(H) 4.3 - 5.6 % [facility] Comment: Reference Range: 4.3 - [...] Mellitus, Diabetes Care 2013; 36: Suppl. 1, S67-76 Estimated Average Glucose 189 mg/dL [facility] Blood 01/31/2024 11:4 1 AM EDT 01/31/2024 11:52 AM EDT Narrative Resulting Agency Comment Spec In Lab Authorizing Provider Result Jose Maria Vinson MD CHEMISTRY ORDERABLES Performing Organization Address [facility] Co de Phone Number [facility] [address] * (ABNORMAL) Basic Metabolic Panel (non-fasting) (01/31/2024 11:41 AM EDT) Glucose 289(H) 65 - 199 mg/dL [facility] Comment:Diabetes: >=200 mg/d L plus symptoms Blood Urea Nitrogen 13 10 - 20 mg/dL [facility] Creatinine 0.86 0.80 - 1.50 mg/dL [facility] Sodium 138 135 - 145 mmol/L [facility] Potassium 4.4 3.5 - 5.0 mmol/L [facility] Comment: Please note: ??Patients with WBC >100,000 may have falsely elevated Potassium levels. ??For accurate Potassium quantification in these patients send serum separator tube (gold top) for subsequent determinations. ??Contact the Clinical Chemistry Laboratory if there are any questions. Chloride 102 98 - 107 mmol/L [facility] Carbon Dioxide 25 22 - 31 mmol/L [facility] Anion Gap 11 5 - 15 mmol/L [facility] Calcium 9.5 8.5 - 10.5 mg/dL [facility] Est Glomerular Filtration Rate 95 >=60 mL/min/1. 73 m?? [facility] Comment: This patient's estimated GFR [...] In Lab Manoj Vinson MD CHEMISTRY ORDERABLES [facility] [address] * EKG 12 Lead (01/31/2024 11:28 AM EDT) Ventricular rate 74 BPM MUSE SYSTEM Atrial Rate 74 BPM MUSE SYSTEM P-R Interval 178 ms MUSE SYSTEM QRS Duration 94 ms MUSE SYSTEM Q-T Interval 374 ms MUSE SYSTEM QTC Calculated (Bezet) 415 ms MUSE SYSTEM Calculated P [place] 62 degrees MUSE SYSTEM Calculated R [place] -7 degrees MUSE SYSTEM Calculated T [place] 40 degrees MUSE SYSTEM INTERPRETATION Normal sinus rhythm Normal ECG When compared with ECG of 29-JUL-2021 19:58, No significant change was found I personally reviewed the tracing and edited the fellows interpretation Confirmed by fellow MD Orlando, Tyson ([id number]) on 01/31/2024 3:44:24 PM Confirmed by MD Toma, Brendan ([id number]) on 01/31/2024 5:33:32 PM MUSE SYSTEM 01/31/2024 11:2 8 AM EDT 01/31/2024 5:33 PM EDT Manoj Vinson MD ECG ORDERABLES MUSE SYSTEM * COLONOSCOPY (08/05/2015 2:52 PM EST) COLONOSCOPY [facility] Endoscopy Patient Name: Yung Betancur ? Procedure Date: 08/05/2015 2:52 PM ? N: [id number] ? Date of : 1955 ? Age: 59 ? Order #: [id number] ? Procedure: ? Colonoscopy Indications: ? Hematochezia Providers: ? Kwan Forte MD, Roosevelt Donnelly ? MATEO Hadley, Dee Dee Lopes, ? Dolly Driver Referring MD: ?Boston Hernandez MD Medicines: ? [...] capacity to make decision: Yes Care Teams Law Secretary Relationship Specialty Start Date End Date Yung Horn MD [address] [place] [address] [place] [phone] PCP - General 11/22/16
--- OUTSIDE RECORDS SUMMARY | 2024-03-03 13:32 | XMS_ITS | Encounter Summary ---
[place] [address] Care Team Providers Care Procedures Nurse Name Role Phone Yung Horn MD Primary Care Provider [phone] Reason for Referral * Consultation (Routine) - Authorized Specialty Diagnoses / Procedures Referred By Contkelly ramesh Referred To Contact Urology Diagnoses Erectile dysfunction, unspecified erectile dysfunction type Other mechanical complication of implanted penile prosthesis, initial encounter 3 [id number] PL[address] BAUMANN NOT FUNCTIONING Sherlyn Hudson APRN [address] [place] [address] [facility] [place] [address] Referral ID Status Reason Start Date Expiration Date Visits Requested Visits Authorized [id number] Authorized Consult, Test & Treat PCP Updated and/or Approved 3 06/04/2024 6 6 Encounter Details Date Type Department Care Team (Latest Contact Info) Description 06/05/2023 Transcribe Orders eDH Incoming Referrals [phone] Sherlyn Hudson APRN [address] [place], [place] [address] Erectile dysfunction, unspecified erectile dysfunction type; Other [...] 3:00 PM EDT Office [place] [address] Manoj Vinson MD [facility] [place] [address] Scheduled Referrals Name Type Priority Associated Diagnoses Orde r Schedule Referral to Urology Outpatient Referral Routine Erectile dysfunction, unspecified erectile dysfunction type Other mechanical complication of implanted penile prosthesis, initial encounter Ordered: 06/05/2023 documented as of this encounter Visit Diagnoses Diagnosis Erectile dysfunction, unspecified erectile dysfunction type Other mechanical complication of implanted penile prosthesis, initial encounter documented in this encounter Care Teams Procedures Nurse Relationship Specialty Start Date End Date Yung Horn MD [address] [place] [address] PCP - General 11/22/16 documented as of this encounter
--- OUTSIDE RECORDS SUMMARY | 2024-03-03 13:32 | XMS_ITS | Encounter Summary ---
[place] [address] Care Team Providers Care Systems Applications Programming Lead Name Role Phone Yung Horn MD Primary Care Provider [phone] Reason for Referral * Diagnostic Test (Routine) - Closed Specialty Diagnoses / Procedures Referred By Contac t Referred To Contact Neurology Diagnoses Impingement syndrome of left shoulder Ching Murray PA [address] [place] [address] [facility] [address] [place] [phone] Referral ID Status Reason Start Date Expiration Date V isits Requested Visits Authorized [id number] Closed Test Only 01/06/2023 01/06/2024 1 1 Encounter Details Date Type Department Care Team (Late st Contact Info) Description 01/06/2023 Transcribe Orders eDH Incoming Referrals [phone] Ching Murray PA [address] [place] [address] Impingement syndrome of left shoulder Social History [...] EDT Office [place] [address] Manoj Vinson MD [facility] [place] [address] Scheduled Referrals Name Type Priority Associated Diagnoses Orde r Schedule Referral to Neurology Outpatient Referral Routine Impingement syndrome of left shoulder Ordered: 01/06/2023 documented as of this encounter Visit Diagnoses Diagnosis Impingement syndrome of left shoulder Other affections of shoulder region, not elsewhere classified documented in this encounter Care Teams Systems Applications Programming Lead Relationship Specialty Start Date End Date Yung Horn MD [address] [place] [address] PCP - General 11/22/16 documented as of this encounter
--- OUTSIDE RECORDS SUMMARY | 2024-03-03 13:32 | XMS_ITS | Encounter Summary ---
Author Organization [facility] [place] [address] Care Team Providers Care Telegraph Office Telephone Clerk Name Role Phone Yung Horn MD Primary Care Provider [phone] Encounter Details Date Type Department Care Team (Late st Contact Info) Description 08/03/2023 Telephone [place] [address] Huong Apple Social History Tobacco [...] 3:00 PM EDT Office [place] [phone] Manoj Vinson MD [facility] [place] [address] documented as of this encounter Visit Diagnoses Not on filedocumented in this encounter Care Teams Telegraph Office Telephone Clerk Relationship Specialty Start Date End Date Yung Horn MD [address] [place] [address] PCP - General 11/22/16 documented as of this encounter
--- OUTSIDE RECORDS SUMMARY | 2024-03-03 13:32 | XMS_ITS | Encounter Summary ---
Author Organization [facility] [place] [address] Care Team Providers Care Marble Finisher Name Role Phone Yung Horn MD Primary Care Provider [phone] Encounter Details Date Type Department Care Team (Late st Contact Info) Description 05/05/2023 External [place] [phone] Derrick Anderson DO Social History Tobacco Use [...] 3:00 PM EDT [place] [address] [facility] [place] [address] documented as of this encounter Procedures Procedure Name Priority Date/Time Associated Diagnosis Comments EMG SCAN Routine 05/05/2023 11:22 AM EDT documented in this encounter Results * Scan Doc: EMG (05/05/2023 11:22 AM EDT) Derrick Anderson DO MEDIA MGR SCAN EXT O RDR/RSLT documented in this encounter Visit Diagnoses Not on filedocumented in this encounter Care Teams Marble Finisher Relationship Specialty Start Date End Date Yung Horn MD [address] [place] [address] PCP - General 11/22/16 documented as of this encounter
--- OUTSIDE RECORDS SUMMARY | 2024-03-03 13:32 | XMS_ITS | Encounter Summary ---
Author Organization [facility]ly [facility] Dorothy [facility] [place] [address] Care Team Providers Care Sandblaster Glass Name Role Phone Yung Horn MD Primary Care Provider [phone] Encounter Details Date Type Department Care Team (Late st Contact Info) Description 01/31/2024 Orders Only Urology [address] [place] [phone] Manoj Vinson MD [facility] [place] [address] Social History Tobacco Use Types Packs/Day Years [...] 3:00 PM EDT [place] [address] Manoj Vinson MD [facility] [place] [address] documented as of this encounter Visit Diagnoses Not on filedocumented in this encounter Care Teams Sandblaster Glass Relationship Specialty Start Date End Date Yung Horn MD [address] [place] [address] [place] [address] PCP - General 11/22/16 documented as of this encounter
--- OUTSIDE RECORDS SUMMARY | 2024-03-03 13:32 | XMS_ITS | Continuity of Care Document ---
Author Organization [facility] Address [address] [place] [address] Care Team Providers Care Salesperson [employer] Name Role Phone Kathy Silverman Primary Care Physician [facility] Date[facility]s): 03/01/24 - 03/01/[address] [phone] [place] Encounter Diagnosis Abdominal wall abscess at site of surgical wound(Discharge Diagnosis) - 03/01/24 Discharge Disposition: Home or Self Care Attending Physician: Ebenezer Sigala MD Admitting Physician: Ebenezer Sigala MD Allergies, Adverse Reactions, Alerts Substance Criticality Severity Reaction Reaction Severity Status ADHESIVE TAPE Unable to assess criticality Unknown Active atorvastatin Unable to assess criticality Unknown Active Assessment and Plan Extracted from: Title:ED Provider Note Author:Fazal Monahan MD Date:03/01/24 Abdominal wall abscess at si te of surgical wound??T81.49XA Orders: amoxicillin-clavulanate 875 mg-125 mg oral tablet, 1 tab, Oral, Tab, every 12 hr, Antibiotic Indication Other (specify in order comments), First Dose: 03/01/24 17:19:00 EDT, STAT amoxicillin-clavulanate 875 mg-125 mg oral tablet, 1 tab, Oral, every 12 hr, X 10 days, # 20 tab, 0 Refill(s), 03/11/24 17:19:00 EDT, Pharmacy: [facility] #[id number], 178, cm, 06/29/23 11:31:00 EST, Height, 98, kg, 06/29/23 11:35:00 EST, Weight Dosing Discharge Patient, 03/01/24 17:20:00 EDT, Home Independently, Constant Indicator Discharge Patient, 03/01/24 17:27:00 EDT, Home Independently, Constant Indicator Wound Culture, Incision, Abdomen, Stat collect, ST - Stat, 03/01/24 12:32:00 EDT, Once, Nurse collect, Print Label Immunizations Given and Recorded Vaccine Date Status [...] 1 tab, Oral, every 12 hr, X 10 days, # 20 tab, 0 Refill(s), 03/11/24 4:19:00 PM CDT, Pharmacy: [facility] #[id number], 178, cm, 06/29/23 11:31:00 EST, Height, 98, kg, 06/29/23 11:35:00 EST, WeightDosing Start Date: 03/01/24 Stop Date: 03/11/24 Status: Ordered aspirin 81 mg oral delayed [...] severe, # 30 tab, 0 Refill(s), Pharmacy: [id number], 178, cm, 04/22/22 6:28:00 EDT, [...] Start Date: 03/07/22 Status: Ordered Mental Status 03/01/24 Eye Opening Response [place] Angel Spontaneous ly Best Verbal Response [place] Oriented Best Motor Response [place] Obeys comman ds Miguel Angel Coma Score 15 Problem List Condition Confirmation Course Effective Dates [...] hip fx Results Laboratory List Name Date Lactic Acid 03/01/24 Automated Diff 03/01/24 Basic Metabolic Panel (BMP) 03/01/24 CBC w/ Diff 03/01/24 D-Dimer 03/01/24 Lactic Acid 03/01/24 Troponin-I 03/01/24 Most recent to oldest [Reference Range]: 1 2 WBC [5.0-10.0 x10^3/mcL] 10.2 x10^3/mcL *HI* (03/01/24 12:27 PM) RBC [4.6-6.0 x10^6/mcL] 4.9 x10^6/mcL (03/01/24 12:27 PM) Neutro Auto [40.0-75.0 %] 72.3 % (03/01/24 12:27 PM) Lymph Auto [20.0-50.0 %] 17.9 % *LOW* (03/01/24: PM) Upson Auto [2.0-15.0 %] 6.3 % (03/01/24: PM) Basophil Auto [0.0-1.0 %] 0.4 % (03/01/24 12: PM) BUN [7-18 mg/dL] 17 mg/dL (03/01/24: PM) Glucose Level [74-106 mg/dL] 139 mg/dL *HI* (03/01/24 12: PM) Potassium Level [3.5-5.1 mmol/L] 5.0 mmo l/L (03/01/24 12: PM) MCV [80.0-96.0 fL] 87.9 fL (03/01/24 12: PM) MCHC [31.0-35.0 g/dL] 33.5 g/dL (03/01/24: PM) Troponin-I [0.0-76.2 pg/mL] <5.0 pg/mL (03/01/24: PM) Sodium Level [136-145 mmol/L] 138 mmol/L (03/01/24 12:27 PM) Hct [41.0-51.0 %] 42.7 % (03/01/24: PM) Calcium Level [8.5-10.1 mg/dL] 9.6 mg/dL (03/01/24 12: PM) MCH [26.0-32.0 pg] 29.4 pg (03/01/24 12: PM) Neutro Absolute 7.4 x10^3/mcL *NA* (03/01/24 12:27 PM) Hgb [14.0-18.0 g/dL] 14.3 g/dL (03/01/24 12:27 PM) Platelets [130-450 x10^3/mcL] 326 x10^3/ mcL (03/01/24 12:27 PM) CO2 [21-32 mmol/L] 27 mmol/L (03/01/24 12: PM) Lactic Acid Lvl [0.7-2.0 mmol/L] 1.8 mmo l/L (03/01/24 3:02 PM) 2.6 mmol/L 1 *CRIT* (03/01/24 12:27 PM) eGFR Non-AA [>=60] 56 *LOW* (03/01/24 12: PM) eGFR AA [>=60] 56 *LOW* (03/01/24 12: PM) Chloride Level [98-107 mmol/L] 101 mmol/ L (03/01/24 12: PM) RDW-CV [11.5-14.5 %] 13.1 % (03/01/24 12:27 PM) Imm Gran Auto [0.0-0.9 %] 1.4 % *HI* (03/01/24 12: PM) Slide Review Not Indicated (03/01/24: PM) Creatinine Level [0.70-1.30 mg/dL] 1.38 mg/dL *HI* (03/01/24 12:27 PM) D Dimer, (Quant.) [0.00-0.50 mg/L] 0.92 mg/L 2 *HI* (03/01/24 12:27 PM) Eos, Auto [1.0-6.0 %] 1.7 % (03/01/24 12:27 PM) 1Result Comment: Called to and verbally verified by 450 - ED - Scarlett Monterroso RN at 03/01/2024 12:43:19 EDT. 2Interpretive Data: Exclusion of PE: Effective March 28, 2012 a new D-Dimer assay [INNOVANCE] is being implemented, this test has a new reference range <0.50 mg/L FEU. This assay was evaluated in a multi-center study to validate the exclusion of PE using fresh specimens collected from 701 consecutive patients presenting in the ED with suspected PE. Study patients were evaluated using the Wells' rules to estimate high, moderate or low probability of PE, a D-Dimer result of <0.50 mg/L FEU was considered negative and a D-Dimer result >/= 0.50 was considered positive for PE. Orders for Microbiology Reports Name Date Wound Culture 03/01/24 Microbiology Reports TEST:Wound Culture STATUS:Order in Progress BODY SITE:Abdomen SOURCE:Incision COLLECTED DATE/TIME:03/01/24 12:33 PM PRELIMINARY REPORT Normal Skin Loni Recovered at 24 Hours STAIN REPORT Many Gram Positive Cocci Rare Gram Positive Bacilli Vital Signs Most recent to oldest [Reference Range]: 1 2 3 Temperature Temporal Artery [36-38 Deg C] 36.2 Deg C (03/01/24 12:12 PM) Peripheral Pulse Rate [60-100 bpm] 85 bpm (03/01/24 3:20 PM) Heart Rate Monitored [60-100 bpm] 92 bpm (03/01/24 12:12 PM) Respiratory Rate [12-24 br/min] 18 br/min (03/01/24 3:20 PM) 18 br/min (03/01/24 12:12 PM) Blood Pressure [90-140/60-90 mmHg] 131/80mmHg (03/01/24 3:45 PM) 133/83mmHg (03/01/24 3:18 PM) 138/79mmHg (03/01/24 12:12 PM) Mean Arterial Pressure, Cuff [65-140 mmHg] 99 mmHg (03/01/24 12:12 PM) Weight Estimated 95.25 kg (03/01/24 12:12 PM) Social History Social History Type Response Tobacco Former tobacco user Tobacco Use:. Sex Male Sex Representation Male (finding) Implantable Device List Procedure Provider Procedure Date Device Type Site Gamma Nail Santiago Krishnan MD 04/22/22 Non Biolo gical Hip R Device Identifier Serial Number Lot or Batch Number Manufacturing Date Expiration Date Distinct Identification Code MRI Safety Implantable Status Assigning Authority Unknown Unknown [id number] Unknown 10/11/30 Unknown Unknown Active Unknown Unknown Unknown [id number] Unknown 07/26/31 Unknown Unknown Active Unknown Unknown Unknown [id number] Unknown 01/05/25 Unknown Unknown Active Unk nown Unknown Unknown [id number] Unknown 07/08/24 Unknown Unknown Active Un known Unknown Unknown [id number] Unknown 01/05/23 Unknown Unknown Active Unk nown Physician Emergency department Note * Fazal Monahan MD: PERFORM Event Display: ED Note Physician Authored Date: [id number] ELIZABETH VAZQUEZ :1955 Age:68 years Sex:Male Visit Date:03/01/2024 Primary Care Physician: Kathy Silverman NP Basic Information Time Seen: Fazal Monahan MD / 03/01/2024 12:12 Chief Complaint Pt came to ED with C/O weakness and lightheadedness. Pt states he had surgery on his bladder the 07 of February and now has purulent drainage from site. History Of Present Illness: Presenting concern is abdominal??incision and drainage. ??Context is??patient who had bladder surgery??on February 07??at a facility near [facility]??and a tummy tuck.?? Madeline removed??on February 19. ??Subsequently??developed??drainage from the surgical site.?? Associated symptoms are lightheadedness,not feeling well,??fatigue. Review of Systems: As per HPI Physical Exam Vitals & Measurements T:??36.2?C ??(Temporal Artery)?? HR:??85??(Peripheral)?? RR:??18?? BP:??131/80?? SpO2:??97%?? WT:??95.25??kg??(Estimated)?? Pain Score:??5?? O2 Therapy:??Room air?? Orthostatic Vitals: Pulse Supine: 76 bpm (03/01/24 12:48:00) Pulse Sittin bpm (03/01/24 12:48:00) Pulse Standin bpm (03/01/24 12:48:00) Systolic Blood Pressure Supine: 125 mmHg (03/01/24 12:48:00) Diastolic Blood Pressure Supine: 77 mmHg (03/01/24 12:48:00) Systolic Blood Pressure Sittin mmHg (03/01/24 12:48:00) Diastolic Blood Pressure Sittin mmHg (03/01/24 12:48:00) Systolic Blood Pressure Standin mmHg (03/01/24 12:48:00) Diastolic Blood Pressure Standin mmHg (03/01/24 12:48:00) No distress.?? Painful face??expression. ??Normal breath sounds. ??Normal heart sounds, soft abdomen. ??Lower abdominal??transverse and??incision with??drainage. ??Extremities normal. Medical Decision Making: Complexity is??low. ??Data complexity is low. ??Management risk are low. ??[facility] coding 32743 Procedure No Qualifying Data Assessment/Plan Abdominal wall abscess at site of surgical wound??T81.49XA Orders: amoxicillin-clavulanate 875 mg-125 mg oral tablet, 1 tab, Oral, Tab, every 12 hr, Antibiotic Indication Other (specify in order comments), First Dose: 03/01/24 17:19:00 EDT, STAT amoxicillin-clavulanate 875 mg-125 mg oral tablet, 1 tab, Oral, every 12 hr, X 10 days, # 20 tab, 0Refill(s), 03/11/24 17:19:00 EDT, Pharmacy: [facility] #[id number], 178, cm, 06/29/23 11:31:00EST, Height, 98, kg, 06/29/23 11:35:00 EST, Weight Dosing Discharge Patient, 03/01/24 17:20:00 EDT, Home Independently, Constant Indicator Discharge Patient, 03/01/24 17:27:00 EDT, Home Independently, Constant Indicator Wound Culture, Incision, Abdomen, Stat collect, ST - Stat, 03/01/24 12:32:00 EDT, Once, Nurse collect, Print Label Medication Reconciliation New Prescription amoxicillin-clavulanate (amoxicillin-clavulanate 875 mg-125 mg oral tablet)1 tab Oral (given by mouth) every 12 hours for 10 Days. Refills: 0. ?? Unchanged acetaminophen (acetaminophen [...] 2 times a day. ?? polyethylene glycol [id number] Gram Oral (given by mouth) every day [...] and Differential?? LATEST RESULTS?? HISTORICAL RESULTS?? WBC?? 03/01/24 12:27?? 10.2 ??High?? 06/29/23?? 6.5?? RBC?? 03/01/24 12:27?? 4.9?? 06/29/23?? 4.9?? Hgb?? 03/01/24 12:27?? 14.3?? 06/29/23?? 14.6?? Hct?? 03/01/24 12:27?? 42.7?? 06/29/23?? 42.2?? MCV?? 03/01/24 12:27?? 87.9?? 06/29/23?? 85.8?? MCH?? 03/01/24 12:27?? 29.4?? 06/29/23?? 29.7?? MCHC?? 03/01/24 12:27?? 33.5?? 06/29/23?? 34.6?? RDW-CV?? 03/01/24 12:27?? 13.1?? 06/29/23?? 12.5?? Platelets?? 03/01/24 12:27?? 326?? 06/29/23?? 184?? Neutro Auto?? 03/01/24 12:27?? 72.3?? 06/29/23?? 65.0?? Lymph Auto?? 03/01/24 12:27?? 17.9 ??Low?? 06/29/23?? 23.9?? Upson Auto?? 03/01/24 12:27?? 6.3?? 06/29/23?? 8.9?? Eos, Auto?? 03/01/24 12:27?? 1.7?? 06/29/23?? 1.7?? Basophil Auto?? 03/01/24 12:27?? 0.4?? 06/29/23?? 0.2?? Imm Gran Auto?? 03/01/24 12:27?? 1.4 ??High?? 06/29/23?? 0.3?? Neutro Absolute?? 03/01/24 12:27?? 7.4?? 06/29/23?? 4.2?? Slide Review?? 03/01/24 12:27?? Not Indicated?? 04/02/23?? Not Indicated? Coagulation?? LATEST RESULTS?? D Dimer, (Quant.)?? 03/01/24 12:27?? 0.92 ??High? Routine Chemistry?? LATEST RESULTS?? HISTORICAL RESULTS?? Sodium Level?? 03/01/24 12:27?? 138?? 06/29/23?? 134 ??Low?? Potassium Level?? 03/01/24 12:27?? 5.0?? 06/29/23?? 4.5?? Chloride Level?? 03/01/24 12:27?? 101?? 06/29/23?? 99?? CO2?? 03/01/24 12:27?? 27?? 06/29/23?? 24?? BUN?? 03/01/24 12:27?? 17?? 06/29/23?? 20 ??High?? Glucose Level?? 03/01/24 12:27?? 139 ??High?? 06/29/23?? 119 ??High?? Creatinine Level?? 03/01/24 12:27?? 1.38 ??High?? 06/29/23?? 1.13?? eGFR AA?? 03/01/24 12:27?? 56 ??Low?? 06/29/23?? 72?? eGFR Non-AA?? 03/01/24 12:27?? 56 ??Low?? 06/29/23?? 72?? Calcium Level?? 03/01/24 12:27?? 9.6?? 06/29/23?? 8.9?? Lactic Acid Lvl?? 03/01/24 15:02?? 1.8? Cardiac Isoenzymes?? LATEST RESULTS?? HISTORICAL RESULTS?? Troponin-I?? 03/01/24 12:27?? <5.0?? 06/29/23?? 5.3? Electronically Signed on 03/01/2024 17:29 EDT Fazal Monahan MD Emergency department Discharge instructions * Fazal Monahan MD: PERFORM Event Display: ED Discharge Information Authored Date: [id number] ELIZABETH VAZQUEZ :1955 Age:68 years Sex:Male Visit Date:03/01/2024 Primary Care Physician: Kathy Silverman MEDICATION AID Discharge Instructions We would like to thank you for allowing us to assist you with your healthcare needs. The following includes patient education materials and information regarding your injury/illness. Diagnosis from Today's Visit Abdominal wall abscess at site of surgical wound Discharge Vitals Temperature??(Temporal Artery) 97.2 ??F (36.2 ??C) Heart Rate??(Peripheral) 85 Respiratory Rate?? 18 Blood Pressure?? 131/80?? Blood Pressure?? 121/70(Sitting)?? Blood Pressure?? 103/74(Standing)?? Blood Pressure?? 125/77(Supine)?? SpO2?? 97% Weight??(Estimated) 210.03 lb (95.25 kg) Allergies ADHESIVE TAPE atorvastatin What to Do Next Instructions from Your Care Team You have??an infection in your suture line. ??Take??Augmentin 875 mg twice daily for 10 days.?? Your urologist will call on??Monday to arrange for follow-up.?? Maintain generous fluid intake.?? Food is not important.?? Generous??fluid intake??is??essential. ??Return if worsening. ?? Fazal Monahan MD You were treated today on an emergency [...] (given by mouth) Every 12 hours Duration: 10 Days [id number] Unchanged acetaminophen (acetaminophen 500 mg oral tablet) [...] dose of 225mg daily ?? Pharmacy Information [facility] #[id number]: [address] [phone] Tests Performed Medications and Immunizations Administered Given 0.9% NaCl bolus, 2000 mL, Hydration Bolus Lab Test Name Test Result Date/Time WBC 10.2 x10^3/mcL 03/01/2024 12:27 EDT RBC 4.9 x10^6/mcL 03/01/2024 12:27 EDT Hgb 14.3 g/dL 03/01/2024 12:27 EDT Hct 42.7 % 03/01/2024 12:27 EDT MCV 87.9 fL 03/01/2024 12:27 EDT MCH 29.4 pg 03/01/2024 12:27 EDT MCHC 33.5 g/dL 03/01/2024 12:27 EDT RDW-CV 13.1 % 03/01/2024 12:27 EDT Platelets 326 x10^3/mcL 03/01/2024 12:27 EDT Neutro Auto 72.3 % 03/01/2024 12:27 EDT Lymph Auto 17.9 % 03/01/2024 12:27 EDT Upson Auto 6.3 % 03/01/2024 12:27 EDT Eos, Auto 1.7 % 03/01/2024 12:27 EDT Basophil Auto 0.4 % 03/01/2024 12:27 EDT Imm Gran Auto 1.4 % 03/01/2024 12:27 EDT Neutro Absolute 7.4 x10^3/mcL 03/01/2024 12:27 EDT Slide Review Not Indicated 03/01/2024 12:27 EDT D Dimer, (Quant.) 0.92 mg/L 03/01/2024 12:27 EDT Sodium Level 138 mmol/L 03/01/2024 12:27 EDT Potassium Level 5.0 mmol/L 03/01/2024 12:27 EDT Chloride Level 101 mmol/L 03/01/2024 12:27 EDT CO2 27 mmol/L 03/01/2024 12:27 EDT BUN 17 mg/dL 03/01/2024 12:27 EDT Glucose Level 139 mg/dL 03/01/2024 12:27 EDT Creatinine Level 1.38 mg/dL 03/01/2024 12:27 EDT eGFR AA 56 03/01/2024 12:27 EDT eGFR Non-AA 56 03/01/2024 12:27 EDT Calcium Level 9.6 mg/dL 03/01/2024 12:27 EDT Lactic Acid Lvl 1.8 mmol/L 03/01/2024 15:02 EDT Troponin-I <5.0 pg/mL 03/01/2024 12:27 EDT Patient/Engineering Technology Instructor Signature Patient Name:TAYLORELIZABETH I have received this information and my questions have been answered. Patient/Engineering Technology Instructor Name: Patient/Engineering Technology Instructor Signature: Relationship to Patient: Witness Name/Signature: Date: Electronically Signed on: 03/01/2024 17:29 EDTSigned by:[facility] Emergency department Note * Keila Baxter M: PERFORM Event Display: ED Notes Authored Date: [id number] Patient Care team information Care Team Personnel Name: Kathy Silverman NP Position: Physician Member Role: Informed Provider Address: [address] [place] [address] Care Team Related Persons Name: JENIFFER VAZQUEZ Name: TEETEE VAZQUEZ Insurance Providers Guarantor name: ELIZABETH VAZQUEZ Health Plan Information #: 1 Payer: [employer]PLAC[employer]VANTAGE PPO Member Number: [id number] Policy Number: NA Health Plan Information #: 2 Payer: [facility] MEDICAID Member Number: [id number] Policy Number:
--- OUTSIDE RECORDS SUMMARY | 2024-03-03 13:32 | XMS_ITS | Encounter Summary ---
Author Organization [facility] [place] [address] Care Team Providers Care Breakfast Attendant Name Role Phone Yung Horn MD Primary Care Provider [phone] Encounter Details Date Type Department Care Team (Late st Contact Info) Description 04/20/2022 12:10 AM EDT Ancillary Procedure [place] [phone] Yung Horn MD [address] [place] [address] [place] [phone] Social History Tobacco Use Types Packs/Day Years [...] 3:00 PM EDT Office [place] [phone] Manoj Vinson MD [facility] [place] [address] documented as of this encounter Procedures Procedure [...] FILM LIBRARY ORD ERABLES Performing Organization Address City/State/[facility] Co de Phone Number [place], [place] documented in this encounter Visit Diagnoses Not on filedocumented in this encounter Care Teams Breakfast Attendant Relationship Specialty Start Date End Date Yung Horn MD [address] [place] [address] [place] [address] PCP - General 11/22/16 documented as of this encounter
--- OUTSIDE RECORDS SUMMARY | 2024-03-03 13:32 | XMS_ITS | Encounter Summary ---
Author Organization [facility] [place] [address] Care Team Providers Care Fire Marshal Refinery Name Role Phone Yung Horn MD Primary Care Provider [phone] Reason for Visit * Auth/Cert (Routine) Specialty Diagnoses / Procedures Referred By Contac t Referred To Contact Diagnoses Acquired buried penis Acquired buried penis Procedures PRO ADJ TISS TRANSFER HEAD, FAC, HAND 10.1-30 ADJ.TISSUE TRANSFER, REARRANGEMENT, 10.1 TO 30 SQ.CM, GENITALIA (WRVU 10.83) Manoj Cali MD [facility] [place] [address] [facility] Referral ID Status Reason Start Date Expiration Date Visits Re quested Visits Authorized [id number] 1 1 Encounter Details Date Type Department Care Team (Late st Contact Info) Description 02/08/2024 8:57 AM EDT Anesthesia Event Main OR at [address] [phone] Herb Stone CRNA [address] [place] [address] Tatiana Chaidez CRNA [address] [place] [address] Anesthesia Record Procedure Summary Procedure Name Responsible Anesthesiologist Anesthesia Start Time Anesthesia Stop Time ADJ.TISSUE TRANSFER, REARRANGEMENT, 10.1 TO 30 SQ.CM, GENITALIA (VU 10.83) (Perineum) Herb Stone Dorothy, ENERGY EFFICIENCY SPECIALIST 02/08/24 0857 02/08/24 1055 Events Date Time [...] by David Elizondo RN PIV 02/08/24; 0800; [id number] catheter system; 20 gauge; other (see comments) [...] Procedure Summary Date: 02/08/24 Room / Location: [facility] OR / [facility] MAIN OR Anesthesia Start: 856 Anesthesia Stop: [...] shown include unfiled device data. Patient Location: PACU/[facility] Level of Consciousness: Awake and Alert [...] SNARE performed by Kwan Forte MD at [facility] ENDOSCOPY ??? PRO INSERT, INFLATABLE PENILE PROSTHESIS N/A 06/09/2015 PENILE PROSTHESIS, MULTI-COMPONENT performed by Ebenezer Patino III, MD at [facility] MAIN OR ??? PRO UPPER GI ENDOSCOPY, DIAGNOSTIC N/A 08/05/2015 EGD, UPPER GI ENDOSCOPY performed by Kwan Forte MD at [facility] ENDOSCOPY ??? PRO UPPER GI ENDOSCOPY, DIAGNOSTIC N/A 07/31/2017 EGD, UPPER GI ENDOSCOPY performed by Chevy Mackenzie MD at [facility] ENDOSCOPY Social History Tobacco Use ??? [...] ischemia. Pulm: VIJAY. Followed by pulm at [facility] d/t JONAS. Has had PFTs done, results [...] & 2018) TKA (2017) Elbow ORIF IPP ([facility], 2014): MV w/adjunct, G2V w/MAC 4, cricoid [...] 3:00 PM EDT Office Visit Urology at [facility] [place] [phone] Manoj Cali MD [facility] [place] [address] documented as of this encounter Visit Diagnoses [...] mg documented in this encounter Care Teams Fire Marshal Refinery Relationship Specialty Start Date End Date Yung Horn MD [address] [place] [address] PCP - General 11/22/16 documented as of this encounter
--- OUTSIDE RECORDS SUMMARY | 2024-03-03 13:32 | XMS_ITS | Encounter Summary ---
Author Organization [facility] [place] [address] Care Team Providers Care Game Moderator Name Role Phone Yung Horn MD Primary Care Provider [phone] Reason for Visit * Auth/Cert (Routine) Specialty Diagnoses / Procedures Referred By Contac t Referred To Contact Diagnoses Acquired buried penis Acquired buried penis Procedures PRO ADJ TISS TRANSFER HEAD, FAC, HAND 10.1-30 ADJ.TISSUE TRANSFER, REARRANGEMENT, 10.1 TO 30 SQ.CM, GENITALIA (WRVU 10.83) Manoj Vinson MD [facility] [place] [address] [facility] Referral ID Status Reason Start Date Expiration Date Visits Re quested Visits Authorized [id number] 1 1 Encounter Details Date Type Department Care Team (Late st Contact Info) Description 02/08/2024 8:30 AM EDT - 02/08/2024 11:00 AM EDT Surgery Main OR at [address] [address] Manoj Vinson MD [facility] [place] [address] ADJ.TISSUE TRANSFER, REARRANGEMENT, 10.1 TO 30 SQ.CM, [...] removal (with me). This will be at [facility]. You will be contacted with the exact date and time. Please follow the below discharge instructions and contact my office if you have any questions. - If you were seen in clinic at [facility] in [place] call [phone]. - If you were seen in clinic at in [place] call [phone]. - If you were seen in clinic at [facility] in [place] call [phone]. - If you were seen in clinic at [facility] call [phone]. POSTOPERATIVE INSTRUCTIONS BURIED PENIS SURGERY Wound Care [...] and distal measurements were 6 cm bilaterally. [place] was placed on the right in the [...] proceed with buried penis repair at [facility] on February 07. Informed consent was obtained [...] - 02/08/2024 10:57 AM EDT [facility] Brief Operative Note [address] Patient Name: Yung Betancur : [id number] MR#: [id number] Case Date: 02/08/2024 Case Scheduled Time: 829 [...] - 02/08/2024 9:24 AM EDT [facility] Operative Note [address] Patient Name: Yung Betancur : [id number] MR#: [id number] Case Date: 02/08/2024 Case Scheduled Time: 829 SURGEON: Manoj Vinson MD GLASS ENAMEL MIXER: Shannon Rios MD ANESTHESIOLOGIST: Herb Stone CRNA [...] 3:00 PM EDT Office Visit Urology at [facility] [place] [address] Manoj Vinson MD [facility] [place] [address] documented as of this encounter Procedures Procedure Name Priority Date/Time Associated Diagnosis Comments POCT GLUCOSE Routine 02/08/2024 10:56 AM EDT SPECIMEN TO PATHOLOGY Routine 02/08/2024 10:38 AM EDT SURGICAL PATHOLOGY REPORT Routine 02/08/2024 10:27 AM EDT POCT GLUCOSE Routine 02/08/2024 9:52 AM EDT Adj Tiss Transfer Head, Fac, Hand 10.1-30 (60028) 02/08/2024 8:57 AM EDT Acquired buried penis POCT GLUCOSE Routine 02/08/2024 8:48 AM EDT POCT GLUCOSE Routine 02/08/2024 8:09 AM EDT documented in this encounter Results * (ABNORMAL) POCT Glucose (02/08/2024 10:56 AM EDT) Glucose, POC 234(H) 65 - 199 mg/dL [facility] Blood 02/08/2024 10:5 6 AM EDT 02/08/2024 10:56 AM EDT Manoj Vinson MD POINT OF CARE TEST O RDERABLES [facility] [address] [place] [address] * Specimen to Pathology (02/08/2024 10:38 AM EDT) AP Specimen 02/08/2024 10:3 8 AM EDT 02/08/2024 10:38 AM EDT Narrative [facility] - 02/08/2024 10:38 AM EDT Specimen requisition ordered. ??Separate Pathology report to follow Manoj Vinson MD PATHOLOGY/CYTOLOGY O RDMAGUI [facility] [place] [address] * Surgical Pathology Report (02/08/2024 10:27 AM EDT) Surgical Pathology Report [id number] ? Location: [facility]; [address] The signing pathologist has (i) examined the relevant preparation(s) for the specimen(s) and (ii) rendered or confirmed the diagnosis(es). . ?Surgical Pathology DIAGNOSIS A - Subcutaneous fibroadipose tissue, suprapubic fat pad-clinically Gross surgical pathology examination. Electronically signed by: ?Cuca Berrios MD, [facility] Verified: ??02/13/2024 10:11 Performed at: ??-[facility] Dept. of Pathology, [place] [address] Patient Sitter: Ramez Osborn MD, FCAP, ??CLIA Certificate: [id number] SPECIMEN(S) SUBMITTED A - A: Suprapubic Fat Pad, excision (1) CLINICAL INFORMATION Acquired buried penis SPECIMEN PROCESSING A - Labeled/Fixative : Suprapubic fat pad, formalin. Quantity/Size/We ight: Multiple, 14.0 x 11.5 x 3.5 cm, 186 g. Tissue Description: Constantino to yellow-red subcutaneous fibrofatty tissue. Skin: Unremarkable. Sectioning: Adipose and focal, ho-white fibrous tissue. Sections/Process ing: No sections submitted, gross diagnosis only ??shb [facility] 02/08/2024 10:2 7 AM EDT Narrative Authorizing Provider Result Jose Maria Vinson MD PATHOLOGY/CYTOLOGY O RDERABLES [facility] [place] [address] * (ABNORMAL) POCT Glucose (02/08/2024 9:52 AM EDT) Glucose, POC 211(H) 65 - 199 mg/dL [facility] Blood 02/08/2024 9:52 AM EDT 02/08/2024 9:52 AM EDT Narrative Authorizing Provider Result Jose Maria Vinson MD POINT OF CARE TEST O RDERAALINE Performing Organization Address City/[facility]/ZIP Co de Phone Number [facility] [address] [place] [address] * (ABNORMAL) POCT Glucose (02/08/2024 8:48 AM EDT) Glucose, POC 285(H) 65 - 199 mg/dL [facility] Blood 02/08/2024 8:48 AM EDT 02/08/2024 8:48 AM EDT Narrative Authorizing Provider Result Jose Maria Visnon MD POINT OF CARE TEST O RDERAALINE Performing Organization Address City/[facility]/ZIP Co de Phone Number [facility] [address] [place] [address] * (ABNORMAL) POCT Glucose (02/08/2024 8:09 AM EDT) Glucose, POC 315(H) 65 - 199 mg/dL [facility] Blood 02/08/2024 8:09 AM EDT 02/08/2024 8:09 AM EDT Narrative Authorizing Provider Result Jose Maria Vinson MD POINT OF CARE TEST O RDERAALINE Performing Organization Address City/[facility]/ZIP Co de Phone Number [facility] [address] [place] [address] documented in this encounter Visit Diagnoses Diagnosis [...] RN) documented in this encounter Care Teams Game Moderator Relationship Specialty Start Date End Date Yung Horn MD [address] [place] [address] PCP - General 11/22/16 documented as of this encounter
--- OUTSIDE RECORDS SUMMARY | 2024-03-03 13:32 | XMS_ITS | Encounter Summary ---
[place] [address] Care Team Providers Care Physical Therapy Aid Name Role Phone Yung Horn MD Primary Care Provider [phone] Encounter Details Date Type Department Care Team (Late st Contact Info) Description 08/30/2023 [place] [address] Korey Ellis, RN Social History Tobacco Use [...] - 08/30/2023 10:43 AM EST Copied from [facility] #[id number]. Topic: Specialty Dept CRMs - Generic Call [...] 3:00 PM EDT [place] [address] Manoj Vinson MD [facility] [place] [address] Scheduled Orders Name Type Priority Associated Diagnoses Orde r Schedule Creatinine Lab Routine Failure of penile implant, initial encounter Expected: 08/30/2023, Expires: 08/30/2024 documented as of this encounter Visit Diagnoses Diagnosis Failure of penile implant, initial encounter documented in this encounter Care Teams Physical Therapy Aid Relationship Specialty Start Date End Date Yung Horn MD [address] [place] [address] PCP - General 11/22/16 documented as of this encounter
--- OUTSIDE RECORDS SUMMARY | 2024-03-03 13:32 | XMS_ITS | Encounter Summary ---
[place] [address] Care Team Providers Care Wall And Floor Tiler Name Role Phone Yung Horn MD Primary Care Provider [phone] Encounter Details Date Type Department Care Team (Late st Contact Info) Description 03/03/2024 [place] [address] Tiana Felix MD [facility] [place] [address] Social History Tobacco Use Types Packs/Day Years [...] encounter Miscellaneous Notes * Telephone Encounter - Tiana Felix MD - 03/03/2024 12:26 PM EDT Returned patient phone call. Pt 's calls to discuss pus coming out incision Seen at hospital on Monday. Pus since Monday when seen in ED. He was discharged from ED with course of antibiotics amoxicillin she tells me but he did not pick this up as he can't afford it. He is supposed to be taking antibiotics amoxicillin but he can't afford this his says. Sounds like his and pt live in different placed. Advised that no amount of local wound care can replace what antibiotics are prescribed to do. 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 If unable to obtain antibiotics advised pt should present to ED for further evaluation given what sounds like escalation of wound infection. She is not with him thus unable to answer questions on fevers, current status etc Advised present to their local Emergency Department for further evaluation given escalation of wound drainage and not taking antibiotics as prescribed. -She understands and agrees with the plan. -All questions have been addressed at this time. - She is aware of symptoms that would be cause for concern and require immediate attention and presentation to the Emergency Department. Tiana Felix MD Urology PGY-5 03/03/24 12:26 PM documented in this encounter Plan of Treatment Upcoming Encounters Date Type Department Care Team (Late st Contact Info) Description 03/13/2024 3:00 PM EDT [place] [address] Manoj Vinson MD [facility] [place] [address] documented as of this encounter Visit Diagnoses Not on filedocumented in this encounter Care Teams Wall And Floor Tiler Relationship Specialty Start Date End Date Yung Horn MD [address] [place] [address] PCP - General 11/22/16 documented as of this encounter
--- OUTSIDE RECORDS SUMMARY | 2024-03-03 13:32 | XMS_ITS | Encounter Summary ---
Author Organization [facility] [address] Care Team Providers Care Board Turner Name Role Phone Yung Horn MD Primary Care Provider [phone] Reason for Visit * Reason Comments Medication Refill Encounter Details Date Type Department Care Team (Late st Contact Info) Description 10/08/2021 Refill [place] [address] Tatiana Call APRN [facility] [place] [address] HERR (nonalcoholic steatohepatitis) Social History Tobacco Use [...] 3:00 PM EDT Office Visit [place] [phone] Manoj Vinson MD [facility] [place] [address] documented as of this encounter Visit Diagnoses Diagnosis HERR (nonalcoholic steatohepatitis) Other chronic nonalcoholic liver disease documented in this encounter Care Teams Board Turner Relationship Specialty Start Date End Date Yung Horn MD [address] [place] [address] PCP - General 11/22/16 documented as of this encounter
--- OUTSIDE RECORDS SUMMARY | 2024-03-03 13:32 | XMS_ITS | Encounter Summary ---
Author Organization [facility] [place] [address] Care Team Providers Care Fish Warden Name Role Phone Yung Horn MD Primary Care Provider [phone] Encounter Details Date Type Department Care Team (Late st Contact Info) Description 04/20/2022 12:05 AM EDT Ancillary Procedure [place] [phone] Yung Horn MD [address] [place] [address] [place] [address] Social History Tobacco Use Types Packs/Day Years [...] 3:00 PM EDT Office [place] [phone] Manoj Vinson MD [facility] [address] documented as of this encounter Procedures Procedure [...] FILM LIBRARY ORD ERABLES Performing Organization Address City/State/[facility] Co de Phone Number [place], [place] documented in this encounter Visit Diagnoses Not on filedocumented in this encounter Care Teams Fish Warden Relationship Specialty Start Date End Date Yung Horn MD [address] [place] [address] PCP - General 11/22/16 documented as of this encounter
--- OUTSIDE RECORDS SUMMARY | 2024-03-03 13:33 | XMS_ITS | Encounter Summary ---
[place] [address] Care Team Providers Care Wire Fence Builder Name Role Phone Elizabeth Horn MD Primary Care Provider [phone] Reason for Referral * Diagnostic Test (Routine) - Closed Specialty Diagnoses / Procedures Referred By Contac t Referred To Contact Cardiology Diagnoses LINTON (dyspnea on exertion) Procedures Echocardiogram Transthoracic([facility]) Elizabeth Olsen MD [facility] [address] [facility] [place] [address] Referral ID Status Reason Start Date Expiration Date V isits Requested Visits Authorized [id number] Closed Specialty Service Requested 10/08/2020 11/07/2020 1 1 Reason for Visit * Consultation (Routine) - Specialty Diagnoses / Procedures Referred By Contac t Referred To Contact Cardiology Diagnoses Other forms of dyspnea LINTON Elizabeth Horn MD [address] [place] [address] [place] [address] [facility] [address] [place] [address] Referral ID Status Reason Start Date Expiration Date V isits Requested Visits Authorized [id number] Consult, Test [facility] PCP Updated and/or Approved 10/01/2020 04/03/2021 6 6 Encounter Details Date Type Department Care Team (Late st Contact Info) Description 10/08/2020 9:00 AM EDT Office Visit Cardiology at [address] [place] [address] Elizabeth Olsen MD [facility] [address] Chest pain, unspecified type; LINTON (dyspnea on [...] Take 81 mg by mouth Daily. ??? [employer]CH ULTRA2 Kit TEST BLOOD GLUCOSE WITH ALL [...] meals). 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 (Age): 1955(64y) Med Rec#: ? [id number] ?Sex: ?M ? Site Loc: ? [facility] ?Ht / Wt: ??178(cm)/113(kg) Pt. Loc: ?Echo Lab ?BSA: ?2.29 Study Date: ?? 10/08/2020 ?Pt. Type: Outpatient Tape: ? Referring: PRETTY Reading: Scotty Deng ([id number]) Pension Fund Manager: Janice Eden Sand Technologist: Korey Hill [facility] Diagnosis: *Dyspnea, unspecified (R06.00) BP: ? [...] Vmax ?0.48 ? m/sec ? MV deceleration [id number] ?msec ? MV A-wave Vmax ?0.62 ? [...] ? Mid-Inferior ?Normal ? Mid-Inferoseptal ?Normal ? [place]-Septal ? Normal ? [place]-Anterior ? Normal ? [place]-Lateral ?Normal ? [place]-Inferior ? Normal ? [place]-Tip ?Normal ? This report has been electronically signed by: Scotty Deng MD ? 10/08/2020 11:30:38 Images reviewed and interpretation verified [facility] Cardiac Ultrasound Laboratory Procedure Note Scotty Deng MD - 10/08/2020 Procedure: Transthoracic Echocardiogram Patient: TAYLOR SUAREZ(Age): 1955(64y) Med Rec#: [id number] Sex: M Site Loc: [facility] Ht / Wt: 178(cm)/113(kg) Pt. Loc: Echo Lab BSA: 2.29 Study Date: 10/08/2020 Pt. Type: Outpatient Tape: Referring: JACOBYELIENEENA Reading: Scotty Deng ([id number]) Pension Fund Manager: Janice Eden Sand Technologist: Korey Hill [facility] Diagnosis: *Dyspnea, unspecified (R06.00) BP: 100/62 [...] MV E-wave Vmax 0.48 m/sec MV deceleration [id number] msec MV A-wave Vmax 0.62 m/sec MV [...] Normal Mid-Posterolateral Normal Mid-Inferior Normal Mid-Inferoseptal Normal [place]-Septal Normal [place]-Anterior Normal [place]-Lateral Normal [place]-Inferior Normal [place]-Tip Normal This report has been electronically signed by: Scotty Deng MD 10/08/2020 11:30:38 Images reviewed and interpretation verified [facility] Cardiac Ultrasound Laboratory Elizabeth Olsen MD ECHO ORDERABLES * EKG 12 Lead (10/08/2020 9:20 AM EDT) Ventricular rate 85 BPM MUSE SYSTEM Atrial Rate 85 BPM MUSE SYSTEM P-R Interval 156 ms MUSE SYSTEM QRS Duration 90 ms MUSE SYSTEM Q-T Interval 360 ms MUSE SYSTEM QTC Calculated (Bezet) 428 ms MUSE SYSTEM Calculated P [place] 57 degrees MUSE SYSTEM Calculated R [place] 4 degrees MUSE SYSTEM Calculated T [place] 35 degrees MUSE SYSTEM INTERPRETATION Sinus rhythm [...] abnormality documented in this encounter Care Teams Wire Fence Builder Relationship Specialty Start Date End Date Elizabeth Horn MD [facility] [address] [place] [address] PCP - General 11/22/16 documented as of this encounter
--- OUTSIDE RECORDS SUMMARY | 2024-03-03 13:33 | XMS_ITS | Encounter Summary ---
[place] [address] Care Team Providers Care Sports Physiologist Name Role Phone Yung Horn MD Primary Care Provider [phone] Encounter Details Date Type Department Care Team (Late st Contact Info) Description 01/01/2018 Telephone [place] [address] Ashley Sena Social History Tobacco [...] 3:00 PM EDT Office [place] [address] Manoj Vinson MD [facility] [place] [address] documented as of this encounter Visit Diagnoses Not on filedocumented in this encounter Care Teams Sports Physiologist Relationship Specialty Start Date End Date Yung Horn MD [address] [place] [address] PCP - General 11/22/16 documented as of this encounter
--- OUTSIDE RECORDS SUMMARY | 2024-03-03 13:33 | XMS_ITS | Encounter Summary ---
Author Organization [facility] [place] [address] Care Team Providers Care Customer Care Specialist Name Role Phone Yung Horn MD Primary Care Provider [phone] Reason for Visit * Reason Comments Medication Refill Encounter Details Date Type Department Care Team (Late st Contact Info) Description 05/03/2021 Ref[place] [address] Tatiana Call APRN [facility] [place] [address] HERR (nonalcoholic steatohepatitis) Social History Tobacco Use [...] 3:00 PM EDT [place] [address] Manoj Vinson MD [facility] [place] [address] documented as of this encounter Visit Diagnoses Diagnosis HERR (nonalcoholic steatohepatitis) Other chronic nonalcoholic liver disease documented in this encounter Care Teams Customer Care Specialist Relationship Specialty Start Date End Date Yung Horn MD [address] [place] [address] PCP - General 11/22/16 documented as of this encounter
--- OUTSIDE RECORDS SUMMARY | 2024-03-03 13:33 | XMS_ITS | Encounter Summary ---
Author Organization [facility] [place] [address] Care Team Providers Care Dental Technician Metal Name Role Phone Yung Horn MD Primary Care Provider [phone] Reason for Visit * Reason Comments Medication Refill Encounter Details Date Type Department Care Team (Late st Contact Info) Description 07/09/2021 Ref[place] [address] Tatiana Call APRN [facility] [place] [address] HERR (nonalcoholic steatohepatitis) Social History Tobacco Use [...] 3:00 PM EDT [place] [address] Manoj Vinson MD [facility] [place] [address] documented as of this encounter Visit Diagnoses Diagnosis HERR (nonalcoholic steatohepatitis) Other chronic nonalcoholic liver disease documented in this encounter Care Teams Dental Technician Metal Relationship Specialty Start Date End Date Yung Horn MD [address] [place] [address] PCP - General 11/22/16 documented as of this encounter
--- OUTSIDE RECORDS SUMMARY | 2024-03-03 13:33 | XMS_ITS | Encounter Summary ---
Author Organization [facility] [place] [address] Care Team Providers Care Hiv/Aids Care Nurse Name Role Phone Yung Horn MD Primary Care Provider [phone] Reason for Visit * Reason Comments Follow-up Encounter Details Date Type Department Care Team (Late st Contact Info) Description 09/17/2018 1:00 PM EDT Office [place] [address] Robert Ramos MD [facility] [place] [address] Obesity, unspecified classification, unspecified obesity type, unspecified [...] 18 of 25 minutes spent in direct [id number] counseling and the rest in taking a history. PLAN: Visit to the [facility] or bariatric program surgery scheduling coordinator/school photographer Visit with Dr. Amilcar Wagner in Endocrinology or in [facility] Repeat barium swallow Continue acid suppression Robert Ramos MD Section of Gastroenterology and Hepatology documented in this encounter Plan of Treatment Upcoming Encounters Date Type Department Care Team (Late st Contact Info) Description 03/13/2024 3:00 PM EDT [place] [address] Manoj Vinson MD [facility] [place] [address] documented as of this encounter Visit Diagnoses Diagnosis Obesity, unspecified classification, unspecified obesity type, unspecified whether serious comorbidity present documented in this encounter Care Teams Hiv/Aids Care Nurse Relationship Specialty Start Date End Date Yung Horn MD [address] [place] [address] PCP - General 11/22/16 documented as of this encounter
--- OUTSIDE RECORDS SUMMARY | 2024-03-03 13:33 | XMS_ITS | Encounter Summary ---
Author Organization [place] [address] Care Team Providers Care Frame Table Operator Name Role Phone Yung Horn MD Primary Care Provider [phone] Reason for Visit * Consultation (Urgent) - Closed Specialty Diagnoses / Procedures Referred By Contac t Referred To Contact Gastroenterology Diagnoses cirrhosis, elevated LFTs Procedures cons Yung Horn MD [address] [place] [address] [place] [address] [facility] [address] [place] [address] Referral ID Status Reason Start Date Expiration Date Visits Re quested Visits Authorized [id number] Closed 07/06/2020 07/06/2021 1 1 Encounter Details Date Type Department Care Team (Latest Contact Info) Description 07/16/2020 10:00 AM EST Office [place] [address] Tatiana Munoz APRN [facility] [address] Hepatic cirrhosis, unspecified hepatic cirrhosis [...] HEPATOLOGY NEW PATIENT CONSULTATION Yung Betancur 1955 PIPELINE EXECUTIVE: TATIANA MUNOZ APRN PCP: Yung Horn MD Requesting Provider: REASON FOR CONSULTATION Elevated liver enzymes, hospital follow up, concern for cirrhosis HISTORY OF PRESENT ILLNESS Yung Betancur is a 64 y.o. 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 He was admitted at [facility] from 07/01- 07/04 and initially came into [...] , 5 dogs. 5 children, seperately. 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 Stopped drinking on 07/01 when admitted at [facility]. FAMILY HISTORY PHYSICAL EXAM Vitals: 07/16/20 1001 [...] were low when he was inpatient at [facility] suggesting cirrhosis, however his plateletsare now normal. [...] Munoz APRN Section of Gastroenterology [place] [address] Copy: MD Doreen Chapman DR / [facility] [id number] Time spent reviewing records prior to this [...] 3:00 PM EDT Office [place] [address] Manoj Vinson MD [facility] [place] [address] documented as of this encounter Procedures Procedure [...] EST HERR (nonalcoholic steatohepatitis) Alcoholic steatohepatitis [facility] [...] Differential, Automated (07/16/2020 12:11 PM EST) Pathologist [facility] Neutrophil % 66.0 % [facility] Neutrophil Absolute 4.27 1.70 - 6.10 x10(3)/[facility] Lymph % 25.0 % [facility] Lymphocytes Abs 1.6 0.9 - 3.2 x10(3)/[facility] Monocyte % 6.5 % [facility] Monocyte Abs 0.4 0.3 - 0.9 x10(3)/[facility] Eos % 1.9 % [facility] Eosinophils Abs 0.1 0.0 - 0.4 x10(3)/[facility] Basophil % 0.3 % [facility] Baso Absolute 0.0 0.0 - 0.1 x10(3)/[facility] Immature Gran % 0.30 % [facility] Comment: Immature granulocytes(IG's)percentage and absolute count will include metamyelocytes, myelocytes, and promyelocytes. Blood smears from CBCs yielding IG's will be scanned manually for concordance. If this scan disagrees with the automated IG or if promyelocytes are noted, a manual differential will be performed. Immature Gran Absolute 0.02 0.00 - 0.04 x10(3)/[facility] Blood specimen (specimen) 07/16/2020 12:11 PM EST 07/16/2020 12:20 PM EST Narrative Resulting Agency Comment Spec In Lab Tatiana Munoz JEWELRY CUTTER HEMATOLOGY ORDERAB LES [facility] [place] [place] [address] * (ABNORMAL) Hemogram (07/16/2020 12:11 PM EST) [facility] White Blood Cell 6.5 4.0 - 9.5 x10(3)/mc L [facility] Red Blood Cell 4.40(L) 4.58 - 5.54 x10(6)/mc L [facility] Hemoglobin 13.5(L) 13.7 - 16.5 gm/dL [facility] Hematocrit 40.4(L) 40.5 - 48.5 % [facility] Mean Cell Volume 91.8 82.9 - 93.1 fL [facility] Mean Cell Hemoglobin 30.7 27.5 - 32.1 pg [facility] Mean Cell Hemoglobin Concentration 33.4 32.0 - 35.7 gm/dL [facility] Platelet 234 145 - 357 x10(3)/mc L [facility] RDW Standard Deviation 40.6 36.0 - 45.0 fL [facility] RDW coefficient of variation 11.9 11.4 - 13.8 % [facility] Mean Platelet Volume 10.0 7.6 - 12.9 fL [facility] NRBC% auto 0.0 % [facility] NRBC Absolute 0.000 0.000 - 0.000 x10(3)/mc L [facility] Blood specimen (specimen) 07/16/2020 12:11 PM EST 07/16/2020 12:20 PM EST Narrative Resulting Agency Comment Spec In Lab Tatiana Munoz APRN HEMATOLOGY ORDERAB LES Performing Organization Address City/State/[facility] Co de Phone Number [facility] [place] [address] * Mitochondrial Antibody, M2 (07/16/2020 12:11 PM EST) Mitochon Ab (NOVEMBER) <0.1 <0.1 (Negative) U [facility] Comment: Test Performed by: [facility] [address] [place] [address] Manager Hair: Ebenezer Liang M.D. Ph.D.; CLIA# [id number] Blood specimen (specimen) 07/16/2020 12:11 PM EST 07/16/2020 4:19 PM EST Narrative Resulting Agency Comment Spec In Lab Tatiana Munoz ROBBI LAB SEND OUT ORDER GLEN Performing Organization Address [facility] de Phone Number [facility] [place] [address] * Tissue transglutaminase, IgA (07/16/2020 12:11 PM EST) TTG IgA Ab 0.3 0.1 - 10.0 u/ml [facility] Comment: Negative = <7 U/mL Equivocal = 7-10 U/mL Positive = >10 U/mL Blood specimen (specimen) 07/16/2020 12:11 PM EST 07/16/2020 4:21 PM EST Narrative Resulting Agency Comment Spec In Lab Tatiana Munoz ROBBI IMMUNOLOGY ORDERAB LES Performing Organization Address [facility] de Phone Number [facility] [place] [address] * BHARAT ([facility]/CGP/APD/NLH) (07/16/2020 12:11 PM EST) BHARAT Neg Neg [facility] Comment:Anti-nuclear antibod ies were tested using an indirect immunofluorescent assay. Blood specimen (specimen) 07/16/2020 12:11 PM EST 07/16/2020 4:21 PM EST Narrative Resulting Agency Comment Spec In Lab Tatiana Munoz ROBBI LAB SEND OUT ORDER GLEN Performing Organization Address [facility] Co de Phone Number [facility] [place] [address] * Smooth Muscle Antibody (07/16/2020 12:11 PM EST) Sm Muscle Ab (NOVEMBER) Negative Negative [facility] Comment: ADDITIONAL INFORMATION This test was developed and its performance characteristics determined by [facility] in a manner consistent with CLIA requirements. This test has not been cleared or approved by the U.S. Food and Drug Administration. Test Performed by: [facility] [address] [place] [address] Manager Hair: Ebenezer Liang M.D. Ph.D.; CLIA# [id number] Blood specimen (specimen) 07/16/2020 12:11 PM EST 07/16/2020 4:19 PM EST Narrative Resulting Agency Comment Spec In Lab Tatiana Munoz APRN LAB SEND OUT ORDER GLEN Performing Organization Address [facility]/ZIP Co de Phone Number [facility] [place] [address] * Ceruloplasmin (07/16/2020 12:11 PM EST) Ceruloplasmin 24.0 15.0 - 30.0 mg/dL [facility] Blood specimen (specimen) 07/16/2020 12:11 PM EST 07/16/2020 12:20 PM EST Narrative Resulting Agency Comment Spec In Lab Tatiana Munoz APRN CHEMISTRY ORDERABL ES Performing Organization Address [facility] Co de Phone Number [facility] [place] [address] * Prothrombin Time (07/16/2020 12:11 PM EST) Prothrombin Time 10.3 9.4 - 12.5 sec [facility] International Normalization Ratio 0.9 [facility] Comment: An INR <2.0 [...] Lab Tatiana Munoz ROBBI HEMATOLOGY ORDERAB LES [facility] [place] [address] * (ABNORMAL) Comprehensive metabolic panel (non-fasting) (07/16/2020 12:11 PM EST) Glucose 146 65 - 199 mg/dL [facility] Comment:Diabetes: >=200 mg/d L plus symptoms Blood Urea Nitrogen 22(H) 10 - 20 mg/dL [facility] Creatinine 1.29 0.80 - 1.50 mg/dL [facility] Sodium 137 135 - 145 mmol/L [facility] Potassium 5.0 3.5 - 5.0 mmol/L [facility] Comment: Please note: ??Patients with WBC >100,000 may have falsely elevated Potassium levels. ??For accurate Potassium quantification in these patients send serum separator tube (gold top) for subsequent determinations. ??Contact the Clinical Chemistry Laboratory if there are any questions. Chloride 102 98 - 107 mmol/L [facility] Carbon Dioxide 24 22 - 31 mmol/L [facility] Anion Gap 11 5 - 15 mmol/L [facility] Calcium 9.3 8.5 - 10.5 mg/dL [facility] Protein, Total 6.9 6.1 - 8.0 gm/dL [facility] Albumin 4.4 3.2 - 5.2 gm/dL [facility] Aspartate Aminotransferase 36 0 - 39 unit/L [facility] Alanine Aminotransferase 44 0 - 55 unit/L [facility] Alkaline Phosphatase 91 40 - 130 unit/L [facility] Bilirubin, Total 0.6 0.2 - 1.3 mg/dL [facility] Est Glomerular Filtration Rate 59(L) >=60 mL/min/1. 73 m?? [facility] Comment: This patient? s estimated [...] Lab Tatiana Munoz APRN CHEMISTRY ORDERABL ES [facility] [place] [address] documented in this encounter Visit Diagnoses Diagnosis Hepatic cirrhosis, unspecified hepatic cirrhosis type, unspecified whether ascites present HERR (nonalcoholic steatohepatitis) Other chronic nonalcoholic liver disease Alcoholic steatohepatitis documented in this encounter Care Teams Frame Table Operator Relationship Specialty Start Date End Date Yung Horn MD [address] [place] [address] PCP - General 11/22/16 documented as of this encounter
--- OUTSIDE RECORDS SUMMARY | 2024-03-03 13:33 | XMS_ITS | Encounter Summary ---
Author Organization [facility] [place] [address] Care Team Providers Care Record Producer Name Role Phone Yung Horn MD Primary Care Provider [phone] Encounter Details Date Type Department Care Team (Late st Contact Info) Description 09/17/2018 Orders Only Gastroenterology at [place] [phone] Robert Ramos MD [facility] [place] [address] Dysphagia, unspecified type (Primary Dx) Social History [...] 3:00 PM EDT [place] [phone] Manoj Vinson MD [facility] [place] [address] documented as of this encounter Visit Diagnoses Diagnosis Dysphagia, unspecified type- Primary documented in this encounter Care Teams Record Producer Relationship Specialty Start Date End Date Yung Horn MD [address] [place] [address] PCP - General 11/22/16 documented as of this encounter
--- OUTSIDE RECORDS SUMMARY | 2024-03-03 13:33 | XMS_ITS | Encounter Summary ---
Author Organization [facility] [place] [address] Care Team Providers Care Customer Support Technician Name Role Phone Yung Horn MD Primary Care Provider [phone] Encounter Details Date Type Department Care Team (Late st Contact Info) Description 08/03/2017 3:45 PM EST Tech Visit [place] [address] Arabella Sears MD [facility] [place] [address] Chest pain, unspecified type Social History Tobacco [...] Sears MD - 08/03/2017 3:45 PM EST [id number]-YHDN WIRELESS pH CAPSULE STUDY AFTER UPPER ENDOSCOPY Yung Betancur [address] [facility] [address] : 1955 STUDY DATE: 07/31/2017 PROVIDER: Arabella Sears MD ([id number]) INDICATION Chest pain Note that this study [...] 14.72) Day One Calculated DeMeester Score: 0.6 Xnqwy-Lpuje-Jrmi (Total) Fraction of Time with pH Less Than 4%: 0.2 Otpwa-Hbdul-Xgxg DeMeester Score (Total): 1.1 Day One Symptoms Association Probability (SAP) for Heartburn: 0 Chest pain: 0 Cough: 73.1 Regurgitation: 83.9 Nausea: 0 Day Two SAP for Heartburn: 70.3 Oiieb-Stxzb-Wudk SAP for Heartburn: 0 Chest pain: 0 [...] Sears MD Section of Gastroenterology and Hepatology [facility] [place] [address] V: [phone] F: [phone] CC/EC: PCP documented in this encounter Plan of Treatment Upcoming Encounters Date Type Department Care Team (Late st Contact Info) Description 03/13/2024 3:00 PM EDT Office [place] [address] Manoj Vinson MD [facility] [place] [address] documented as of this encounter Visit Diagnoses Diagnosis Chest pain, unspecified type documented in this encounter Care Teams Customer Support Technician Relationship Specialty Start Date End Date Yung Horn MD [facility] [address] [place] [address] PCP - General 11/22/16 documented as of this encounter
--- OUTSIDE RECORDS SUMMARY | 2024-03-03 13:33 | XMS_ITS | Encounter Summary ---
Author Organization [facility] [place] [address] Care Team Providers Care Production Mechanic Tin Cans Name Role Phone Yung Horn MD Primary Care Provider [phone] Encounter Details Date Type Department Care Team (Late st Contact Info) Description 12/17/2018 10:00 AM EDT Interpretation Only Cardiology at [address] [phone] Neymar Franco Jr., MD [address] [place] [address] Chest pain, unspecified type Social History Tobacco [...] 3:00 PM EDT Office Visit Urology at [facility] [place] [place] [address] Manoj Vinson MD [facility] [address] documented as of this encounter Procedures Procedure [...] type documented in this encounter Care Teams Production Mechanic Tin Cans Relationship Specialty Start Date End Date Yung Horn MD [address] [place] [address] PCP - General 11/22/16 documented as of this encounter
--- OUTSIDE RECORDS SUMMARY | 2024-03-03 13:33 | XMS_ITS | Encounter Summary ---
Author Organization [facility] [place] [address] Care Team Providers Care Manager Media Relations Name Role Phone Yung Horn MD Primary Care Provider [phone] Reason for Visit * Reason Comments Medication Refill Encounter Details Date Type Department Care Team (Late st Contact Info) Description 03/05/2021 [place] [phone] Korey Avalos PA [address] [place] [address] HERR (nonalcoholic steatohepatitis) Social History Tobacco Use [...] 3:00 PM EDT [place] [address] Manoj Vinson MD [facility] [place] [place] [address] documented as of this encounter Visit Diagnoses Diagnosis HERR (nonalcoholic steatohepatitis) Other chronic nonalcoholic liver disease documented in this encounter Care Teams Manager Media Relations Relationship Specialty Start Date End Date Yung Horn MD [address] [place] [phone] PCP - General 11/22/16 documented as of this encounter
--- OUTSIDE RECORDS SUMMARY | 2024-03-03 13:33 | XMS_ITS | Encounter Summary ---
Author Organization [facility] [place] [address] Care Team Providers Care Buck Presser Name Role Phone Yung Horn MD Primary Care Provider [phone] Encounter Details Date Type Department Care Team (Late st Contact Info) Description 09/17/2018 1:00 PM EDT Office [place] [address] Kamala Veloz MD [facility] [place] [address] Weight gain status post gastric bypass Social [...] appointment and spent approximately 15 minutes in fceg-qr-nyxd discussion with the patient to talk about [...] 3:00 PM EDT [place] [address] Manoj Vinson MD [facility] [place] [address] documented as of this encounter Visit Diagnoses Diagnosis Weight gain status post gastric bypass documented in this encounter Care Teams Buck Presser Relationship Specialty Start Date End Date Yung Horn MD [address] [place] [address] PCP - General 11/22/16 documented as of this encounter
--- OUTSIDE RECORDS SUMMARY | 2024-03-03 13:33 | XMS_ITS | Encounter Summary ---
Author Organization [facility] [place] [address] Care Team Providers Care Locksmith Helper Name Role Phone Yung Horn MD Primary Care Provider [phone] Encounter Details Date Type Department Care Team (Late st Contact Info) Description 01/12/2021 9:00 AM EDT Office [place] [phone] Tatiana Call APRN [facility] [place] [address] Elevated liver enzymes Social History Tobacco Use [...] will get your liver biopsy results from [facility] to look at with out pathologists [...] gallbladder removed. He had surgery done at [facility] and has recovered well from surgery. [...] Take 81 mg by mouth Daily. ??? [employer] Powert[employer]OUCH ULTRA2 Kit TEST BLOOD GLUCOSE WITH ALL [...] , 5 dogs. 5 children, seperately. 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 Stopped drinking on 07/01/20 when admitted at [facility]. FAMILY HISTORY PHYSICAL EXAM Vitals: 01/12/21 [...] [facility]. His blood pressure [...] will get your liver biopsy results from [facility] to look at with out pathologists [...] Call APRN Section of Gastroenterology [place] [address] Copy: MD [address] / [facility] [address] Time spent reviewing records prior to this [...] 3:00 PM EDT [place] [address] Manoj Vinson MD [facility] [place] [address] documented as of this encounter Procedures Procedure [...] 10:12 AM EDT) Neutrophil % 67.9 % [facility] Neutrophil Absolute 5.79 1.70 - 6.10 x10(3)/[facility] Lymph % 22.4 % [facility] Lymphocytes Abs 1.9 0.9 - 3.2 x10(3)/[facility] LABOR[facility] Monocyte % 7.5 % [facility] Monocyte Abs 0.6 0.3 - 0.9 x10(3)/[facility]OR[facility]ORY Eos % 1.5 % [facility] Eosinophils Abs 0.1 0.0 - 0.4 x10(3)/[facility] Basophil % 0.2 % [facility] Baso Absolute 0.0 0.0 - 0.1 x10(3)/[facility] LABOR[facility]ORY Immature Gran % 0.50 % [facility] Comment: Immature granulocytes(IG's)percentage and absolute count will include metamyelocytes, myelocytes, and promyelocytes. Blood smears from CBCs yielding IG's will be scanned manually for concordance. If this scan disagrees with the automated IG or if promyelocytes are noted, a manual differential will be performed. Immature Gran Absolute 0.04 0.00 - 0.04 x10(3)/[facility] Blood 01/12/2021 10:1 2 AM EDT 01/12/2021 10:28 AM EDT Narrative Resulting Agency Comment Spec In Lab Tatiana Call APRN HEMATOLOGY ORDERAB LES [facility] [place] [address] * (ABNORMAL) Hemogram (01/12/2021 10:12 AM EDT) White Blood Cell 8.5 4.0 - 9.5 x10(3)/mc L [facility] Red Blood Cell 4.39(L) 4.58 - 5.54 x10(6)/mc L [facility] Hemoglobin 12.7(L) 13.7 - 16.5 gm/dL [facility] Hematocrit 37.7(L) 40.5 - 48.5 % [facility] Mean Cell Volume 85.9 82.9 - 93.1 fL [facility] Mean Cell Hemoglobin 28.9 27.5 - 32.1 pg [facility] Mean Cell Hemoglobin Concentration 33.7 32.0 - 35.7 gm/dL [facility] Platelet 277 145 - 357 x10(3)/mc L [facility] RDW Standard Deviation 40.3 36.0 - 45.0 fL [facility] RDW coefficient of variation 12.8 11.4 - 13.8 % [facility] Mean Platelet Volume 9.8 7.6 - 12.9 fL [facility] NRBC% auto 0.0 % [facility] NRBC Absolute 0.000 0.000 - 0.000 x10(3)/mc L [facility] Blood 01/12/2021 10:1 2 AM EDT 01/12/2021 10:28 AM EDT Narrative Resulting Agency Comment Spec In Lab Tatiana Call APRN HEMATOLOGY ORDERAB LES [facility] [place] [address] * (ABNORMAL) Comprehensive metabolic panel (non-fasting) (01/12/2021 10:12 AM EDT) Glucose 128 65 - 199 mg/dL [facility] Comment:Diabetes: >=200 mg/d L plus symptoms Blood Urea Nitrogen 26(H) 10 - 20 mg/dL [facility] Creatinine 1.26 0.80 - 1.50 mg/dL [facility] Sodium 133(L) 135 - 145 mmol/L [facility] Potassium 4.7 3.5 - 5.0 mmol/L [facility] Comment: Please note: ??Patients with WBC >100,000 may have falsely elevated Potassium levels. ??For accurate Potassium quantification in these patients send serum separator tube (gold top) for subsequent determinations. ??Contact the Clinical Chemistry Laboratory if there are any questions. Chloride 97(L) 98 - 107 mmol/L [facility] Carbon Dioxide 24 22 - 31 mmol/L [facility] Anion Gap 12 5 - 15 mmol/L [facility] Calcium 9.8 8.5 - 10.5 mg/dL [facility] Protein, Total 7.7 6.1 - 8.0 gm/dL [facility] Albumin 4.2 3.2 - 5.2 gm/dL [facility] Aspartate Aminotransferase 15 0 - 39 unit/L [facility] Alanine Aminotransferase 21 0 - 55 unit/L [facility] Alkaline Phosphatase 133(H) 40 - 130 unit/L [facility] Bilirubin, Total 0.4 0.2 - 1.3 mg/dL [facility] Est Glomerular Filtration Rate 60 >=60 mL/min/1. 73 m?? [facility] Comment: This patient? s estimated glomerular [...] Lab Tatiana Call APRN CHEMISTRY ORDERABL ES [facility] [place] [address] documented in this encounter Visit Diagnoses Diagnosis Elevated liver enzymes Nonspecific elevation of levels of transaminase or lactic acid dehydrogenase (LDH) documented in this encounter Care Teams Locksmith Helper Relationship Specialty Start Date End Date Yung Horn MD [facility] [place] [address] PCP - General 11/22/16 documented as of this encounter
--- OUTSIDE RECORDS SUMMARY | 2024-03-03 13:33 | XMS_ITS | Encounter Summary ---
Author Organization [facility] [address] [facility] [place] [address] Care Team Providers Care Clinical Laboratory Aides Teacher Name Role Phone Yung Horn MD Primary Care Provider [phone] Encounter Details Date Type Department Care Team (Late st Contact Info) Description 08/03/2017 4:00 PM EST Tech [place] [address] Arabella Sears MD [facility] [place] [address] Chest pain, unspecified type Social History Tobacco [...] ESOPHAGEAL MANOMETRY Yung Urrutiaalban [address] [facility] [address] : 1955 STUDY DATE: 07/31/2017 PROVIDER: Arabella Sears MD ([id number]) INDICATION Chest pain METHODS Stationary esophageal manometry [...] measured. Water swallows were provided after a 5-ut-0-minute accommodation period to assess LES function andfunction [...] esophageal clearance. *Measurements and diagnostic criteria per [place] 3.0 Classification. These findings assume that mechanical obstruction has been ruled out. Arabella Sears MD Section of Gastroenterology and Hepatology [facility] [place] [address] V: [phone] F: [phone] CC/EC: PCP documented in this encounter Plan of Treatment Upcoming Encounters Date Type Department Care Team (Late st Contact Info) Description 03/13/2024 3:00 PM EDT [place] [address] Manoj Vinson MD [facility] [place] [address] documented as of this encounter Visit Diagnoses Diagnosis Chest pain, unspecified type documented in this encounter Care Teams Clinical Laboratory Aides Teacher Relationship Specialty Start Date End Date Yung Horn MD [address] [place] [address] PCP - General 11/22/16 documented as of this encounter
--- OUTSIDE RECORDS SUMMARY | 2024-03-03 13:33 | XMS_ITS | Encounter Summary ---
[place] [address] Care Team Providers Care Criminal Judge Name Role Phone Yung Horn MD Primary Care Provider [phone] Reason for Referral * Diagnostic Test (Routine) - Closed Specialty Diagnoses / Procedures Referred By Contac t Referred To Contact Diagnoses LINTON (dyspnea on exertion) Procedures Echocardiogram Stress (Treadmill) Yung Olsen MD [facility] [place] [address] [facility] [place] [address] Referral ID Status Reason Start Date Expiration Date V isits Requested Visits Authorized [id number] Closed Specialty Service Requested 01/14/2020 05/13/2020 1 1 Reason for Visit * Diagnostic Test (Routine) - Closed Specialty Diagnoses / Procedures Referred By Contac t Referred To Contact Diagnoses [place] (dyspnea on exertion) Procedures Echocardiogram Stress (Treadmill) Yung Olsen MD [facility] [place] [address] [facility] [place] [address] Referral ID Status Reason Start Date Expiration Date V isits Requested Visits Authorized [id number] Closed Specialty Service Requested 01/14/2020 05/13/2020 1 1 Encounter Details Date Type Department Care Team (Latest Contact Info) Description 01/14/2020 10:00 AM EDT - 01/14/2020 11:59 PM EDT Hospital Encounter Non-Invasive Cardiology Lab [facility] [place] [address] Yung Olsen MD [facility] [place] [place] [address] LINTON (dyspnea on exertion) Discharge Disposition: Home [...] Take 81 mg by mouth Daily. 07/29/2021 [employer] ULTRA2 Kit TEST BLOOD GLUCOSE WITH ALL [...] 3:00 PM EDT Office Visit Urology at [facility] [place] [address] Manoj Vinson MD [facility] [place] [address] documented as of this encounter Procedures Procedure [...] JOHNSON ? (Age): 1955(64y) Med Rec#: ? [id number] ?Sex: ?M ? Site Loc: ? [facility] ?Ht / Wt: ??180(cm)/113(kg) Pt. Loc: ?Echo Lab ?BSA: ?2.31 Study Date: ?? 01/14/2020 ?Pt. Type: Tape: ? Referring: PRETTY Referring: Yung Olsen Reading: Saran Shetty ([id number]) Credit Negotiator: Manisha Aguilar Vertica Architect: More Case Diagnosis: *Dyspnea, unspecified (R06.00) Indication: [...] Normal ? Mid-Inferoseptal ?Normal ? Normal ? [place]-Septal ? Normal ? Normal ? [place]-Anterior ? Normal ? Normal ? [place]-Lateral ?Normal ? Normal ? [place]-Inferior ? Normal ? Normal ? [place]-Tip ?Normal ? Normal ? This report has been electronically signed by: Saran Shetty M.D. ? 01/14/2020 14:02:39 Images reviewed and interpretation verified [facility] Procedure Note Saran Shetty MD - 01/14/2020 Procedure: Stress Echocardiogram Patient: TAYLOR SUAREZ(Age): 1955(64y) Med Rec#: [id number] Sex: M Site Loc: [facility] Ht / Wt: 180(cm)/113(kg) Pt. Loc: Echo Lab BSA: 2.31 Study Date: 01/14/2020 Pt. Type: Tape: Referring: LEONAFritz Referring: Yung Olsen Reading: Saran Shetty ([id number]) Credit Negotiator: Manisha Aguilar [employer] Architect: More Case Diagnosis: *Dyspnea, unspecified (R06.00) Indication: [...] Normal Mid-Inferior Normal Normal Mid-Inferoseptal Normal Normal [place]-Septal Normal Normal [place]-Anterior Normal Normal [place]-Lateral Normal Normal [place]-Inferior Normal Normal [place]-Tip Normal Normal This report has been electronically signed by: Saran Shetty M.D. 01/14/2020 14:02:39 Images reviewed and interpretation verified [facility] Yung Olsen MD ECHO [...] mL documented in this encounter Care Teams Criminal Judge Relationship Specialty Start Date End Date Yung Horn MD [address] [place] [address] PCP - General 11/22/16 documented as of this encounter
--- OUTSIDE RECORDS SUMMARY | 2024-03-03 13:33 | XMS_ITS | Encounter Summary ---
Author Organization [facility] [place] [address] Care Team Providers Care Coldfusion Name Role Phone Yung Horn MD Primary Care Provider [phone] Encounter Details Date Type Department Care Team (Late st Contact Info) Description 07/26/2021 Orders Only Cardiology at [address] [phone] Zoya Finney, SUPERVISING LAW ENFORCEMENT ANALYST [facility] [place] [address] Chest pain, unspecified type (Primary Dx) Social [...] 3:00 PM EDT Office [place] [address] Manoj Vinson MD [facility] [place] [address] documented as of this encounter Visit Diagnoses Diagnosis Chest pain, unspecified type- Primary documented in this encounter Care Teams Coldfusion Relationship Specialty Start Date End Date Yung Horn MD [address] [place] [address] PCP - General 11/22/16 documented as of this encounter
--- OUTSIDE RECORDS SUMMARY | 2024-03-03 13:33 | XMS_ITS | Encounter Summary ---
[place] [address] Care Team Providers Care Batch Mixing Truck Driver Name Role Phone Yung Horn MD Primary Care Provider [phone] Encounter Details Date Type Department Care Team (Latest Contact Info) Description 02/11/2021 4:02 PM EDT - 02/11/2021 11:59 PM EDT [place] [address] Discharge Disposition: Home Social History Tobacco Use [...] Take 81 mg by mouth Daily. 07/29/2021 [email or web address] ULTRA2 Kit TEST BLOOD GLUCOSE WITH ALL [...] 3:00 PM EDT [place] [phone] Manoj Vinson MD [facility] [place] [address] documented as of this encounter Procedures Procedure Name Priority Date/Time Associated Diagnosis Comments SURGICAL PATHOLOGY REPORT Routine 02/11/2021 4:05 PM EDT documented in this encounter Results * Surgical Pathology Report (02/11/2021 4:05 PM EDT) Final Diagnosis [id number] ? Location: [facility] The signing pathologist has (i) examined the relevant preparation(s) for the specimen(s) and (ii) rendered or confirmed the diagnosis(es). . ?Surgical Pathology DIAGNOSIS CONSULTATION CASE Outside slide(s) labeled [id number], collection date 12/22/2020. 1 - Gallbladder, cholecystectomy: - Chronic cholecystitis and cholelithiasis. 2 - Liver, wedge ??biopsy: - Subcapsular liver tissue with cautery artifact and ?sinusoidal ??dilatation, negative for steatosis or inflammation. Electronically signed by: ?Leroy Sparks MD Verified: ??02/15/2021 14:34 ??Pathologist Performed at: ??-[facility] Dept. of Pathology, [place], [place] SPECIMEN(S) SUBMITTED CONSULTATION CASE A - 2 slide(s) labeled [id number], collection date 12/22/2020. [id number] Report to: [facility] Surgical Pathology Department [facility], [address]nd Floor [address] [place] [address] ??[id number] CLINICAL INFORMATION _. SPECIMEN PROCESSING [facility] ([facility]) pathology slide(s) are reviewed. ??Refer to Diagnosis and Specimen Submitted for specific case information. For the full text of the [facility] report(s) please refer to Non- Documentation Pathology in the electronic health record (eDH). 02/15/2021 2:34 PM EDT [facility] Consult Case 02/11/2021 4:05 PM EDT 02/11/2021 4:05 PM EDT Tatiana Call AIRPORT MAINTENANCE CHIEF PATHOLOGY/CYTOLOGY ORDERABLES [facility] [place] [address] documented in this encounter Visit Diagnoses Not on filedocumented in this encounter Care Teams Batch Mixing Truck Driver Relationship Specialty Start Date End Date Yung Horn MD [facility] [address] [place] [address] PCP - General 11/22/16 documented as of this encounter
--- OUTSIDE RECORDS SUMMARY | 2024-03-03 13:33 | XMS_ITS | Encounter Summary ---
[place] [address] Care Team Providers Care Contact Center Rep Name Role Phone Yung Horn MD Primary Care Provider [phone] Reason for Visit * Reason Onset Date Comments Appointment 09/17/2018 Encounter Details Date Type Department Care Team (Late st Contact Info) Description 09/17/2018 Telephone [place] [phone] Sofia Narayanan Appointment Social History Tobacco Use [...] to schedule. He can be reached at [phone]. Appt Needed and Reason: yes, possible pharmaco therapy Provider: Dr. Wagner documented in this encounter Plan of Treatment Upcoming Encounters Date Type Department Care Team (Late st Contact Info) Description 03/13/2024 3:00 PM EDT [place] [address] Manoj Vinson MD [facility] [address] documented as of this encounter Visit Diagnoses Not on filedocumented in this encounter Care Teams Contact Center Rep Relationship Specialty Start Date End Date Yung Horn MD [address] [place] [address] PCP - General 11/22/16 documented as of this encounter
--- OUTSIDE RECORDS SUMMARY | 2024-03-03 13:33 | XMS_ITS | Encounter Summary ---
[place] [address] Care Team Providers Care Nutrition Aide Name Role Phone Yung Horn MD Primary Care Provider [phone] Reason for Referral * Diagnostic Test (Routine) - Closed Specialty Diagnoses / Procedures Referred By Contac t Referred To Contact Cardiology Diagnoses [place] (dyspnea on exertion) Procedures Echocardiogram Transthoracic([facility]) Yung Olsen MD [facility] [place] [address] [facility] [place] [address] Referral ID Status Reason Start Date Expiration Date V isits Requested Visits Authorized [id number] Closed Specialty Service Requested 10/08/2020 11/07/2020 1 1 Reason for Visit * Diagnostic Test (Routine) - Closed Specialty Diagnoses / Procedures Referred By Contac t Referred To Contact Cardiology Diagnoses [place] (dyspnea on exertion) Procedures Echocardiogram Transthoracic([facility]) Yung Olsen MD [facility] [place] [address] [facility] [place] [address] Referral ID Status Reason Start Date Expiration Date V isits Requested Visits Authorized [id number] Closed Specialty Service Requested 10/08/2020 11/07/2020 1 1 Encounter Details Date Type Department Care Team (Latest Contact Info) Description 10/08/2020 10:00 AM EDT - 10/08/2020 11:59 PM EDT Hospital Encounter Non-Invasive Cardiology Lab [facility] [place] [address] Yung Olsen MD [facility] [place] [address] LINT[place] (dyspnea on exertion) Discharge Disposition: Home [...] Take 81 mg by mouth Daily. 07/29/2021 [employer] ULTRA2 Kit TEST BLOOD GLUCOSE WITH ALL [...] 3:00 PM EDT [place] [address] Manoj Vinson MD [facility] [place] [address] documented as of this encounter Procedures Procedure Name Priority Date/Time Associated Diagnosis Comments ECHO COMPLETE W CONTRAST Routine 10/08/2020 11:12 AM EDT L[place] (dyspnea on exertion) documented in this encounter Results * ECHO COMPLETE W CONTRAST (10/08/2020 11:12 AM EDT) Anatomical Region Laterality Modality Other 10/08/2020 Narrative 10/08/2020 11:31 AM EDT Procedure: ?Transthoracic Echocardiogram Patient: ?TAYLOR JOHNSON ? (Age): 1955(64y) Med Rec#: ? [id number] ?Sex: ?M ? Site Loc: ? [facility] ?Ht / Wt: ??178(cm)/113(kg) Pt. Loc: ?Echo Lab ?BSA: ?2.29 Study Date: ?? 10/08/2020 ?Pt. Type: Outpatient Tape: ? Referring: PRETTY Reading: Scotty Deng ([id number]) Leather Seasoner: Janice [place] [employer] Reliner: [place] [facility] Diagnosis: *Dyspnea, unspecified (R06.00) BP: ? 100/62 [...] Vmax ?0.48 ? m/sec ? MV deceleration iphr537 ?msec ? MV A-wave Vmax ?0.62 ? [...] ? Mid-Inferior ?Normal ? Mid-Inferoseptal ?Normal ? [place]-Septal ? Normal ? [place]-Anterior ? Normal ? [place]-Lateral ?Normal ? [place]-Inferior ? Normal ? [place]-Tip ?Normal ? This report has been electronically signed by: Scotty Deng MD ? 10/08/2020 11:30:38 Images reviewed and interpretation verified [facility] Procedure Note Scotty Deng MD - 10/08/2020 Procedure: Transthoracic Echocardiogram Patient: TAYLOR SUAREZ(Age): 1955(64y) Med Rec#: [id number] Sex: M Site Loc: [facility] Ht / Wt: 178(cm)/113(kg) Pt. Loc: Echo Lab BSA: 2.29 Study Date: 10/08/2020 Pt. Type: Outpatient Tape: Referring: PRETTY Reading: Scotty Deng ([id number]) Leather Seasoner: Janice [place] [employer] Reliner: [place] [facility] Diagnosis: *Dyspnea, unspecified (R06.00) BP: 100/62 SUMMARY: [...] MV E-wave Vmax 0.48 m/sec MV deceleration loaw487 msec MV A-wave Vmax 0.62 m/sec MV [...] Normal Mid-Posterolateral Normal Mid-Inferior Normal Mid-Inferoseptal Normal [place]-Septal Normal Miller-Anterior Normal [place]-Lateral Normal Miller-Inferior Normal [place]-Tip Normal This report has been electronically signed by: Scotty Deng MD 10/08/2020 11:30:38 Images reviewed and interpretation verified [facility] Yung Olsen MD ECHO [...] mLs documented in this encounter Care Teams Nutrition Aide Relationship Specialty Start Date End Date Yung Horn MD [address] [place] [address] PCP - General 11/22/16 documented as of this encounter
--- OUTSIDE RECORDS SUMMARY | 2024-03-03 13:33 | XMS_ITS | Encounter Summary ---
Author Organization [facility] [place] [address] Care Team Providers Care Direct Marketing Representative Name Role Phone Yung Horn MD Primary Care Provider [phone] Encounter Details Date Type Department Care Team (Late st Contact Info) Description 08/23/2018 Telephone [place] [address] Keren Lacey Social History Tobacco Use Types [...] patient as there is not a personal hr representative form on file to speak with his . Made patient aware that once Dr. Ramos advises our office will be in touch. Patient verbalized understanding. Also made patient aware that this field underwriter will mail a Personal Track Laying Supervisor Form for him to complete and mail [...] detailed message? Yes Preferred method of communication: [phone] documented in this encounter Plan of Treatment Upcoming Encounters Date Type Department Care Team (Late st Contact Info) Description 03/13/2024 3:00 PM EDT [place] [address] Manoj Vinson MD [facility] [place] [address] documented as of this encounter Visit Diagnoses Not on filedocumented in this encounter Care Teams Direct Marketing Representative Relationship Specialty Start Date End Date Yung Horn MD [address] [place] [address] [place] [address] PCP - General 11/22/16 documented as of this encounter
--- OUTSIDE RECORDS SUMMARY | 2024-03-03 13:33 | XMS_ITS | Encounter Summary ---
[place] [address] Care Team Providers Care Educational Director Name Role Phone Yung Horn MD Primary Care Provider [phone] Reason for Visit * Consultation (Routine) - Specialty Diagnoses / Procedures Referred By Contac t Referred To Contact Gastroenterology Diagnoses Chest pain, unspecified type Mariana Holden MD [facility] GENERAL [place] [address] [facility] [address] [address] Referral ID Status Reason Start Date Expiration Date V isits Requested Visits Authorized [id number] Specialty Service Requested PCP Updated and/or Approved 05/28/2017 05/28/2018 6 6 Encounter Details Date Type Department Care Team (Late st Contact Info) Description 04/18/2018 9:00 AM EDT Office [place] [address] [facility] [place] [address] Obesity, unspecified classification, unspecified obesity type, unspecified [...] late arrival. In 2009, Dr. Lori Alba [facility] performed a gastric bypass. His pre-op weight was 375 lbs went to 220 post-op, but regain to about 255 now On metformin for DM, and had been on insulin Has been with geriatric aide in past Has done some meal plans [...] large pouch and dilated stoma. Lives in [place], about 2 hours away and not able to participate [facility], but willing to be seen [...] 25 of 30 minutes spent in direct jlll-bg-reqp counselling and the rest in taking history. PLAN: Will set up time for revisit and with Albino Veloz Continue current medications Consider [facility] visit Robert Ramos MD Section of Gastroenterology and Hepatology documented in this encounter Plan of Treatment Upcoming Encounters Date Type Department Care Team (Late st Contact Info) Description 03/13/2024 3:00 PM EDT [place] [address] [facility] [place] [address] documented as of this encounter Visit Diagnoses Diagnosis Obesity, unspecified classification, unspecified obesity type, unspecified whether serious comorbidity present Gastroesophageal reflux disease, esophagitis presence not specified documented in this encounter Care Teams Educational Director Relationship Specialty Start Date End Date Yung Horn MD [facility] [place] [address] PCP - General 11/22/16 documented as of this encounter
--- OUTSIDE RECORDS SUMMARY | 2024-03-03 13:33 | XMS_ITS | Encounter Summary ---
Author Organization Formerly [facility] [place] [address] Care Team Providers Care Live In Caregiver Name Role Phone Yung Horn MD Primary Care Provider [phone] Reason for Visit * Reason Comments Medication Refill Encounter Details Date Type Department Care Team (Late Contact Info) Description 12/04/2019 Refill Gastroenterology at [place] [phone] Robert Ramos MD [facility] [place] [address] Social History Tobacco Use Types Packs/Day Years [...] 3:00 PM EDT Office Visit Urology at [place] [phone] Manoj Vinson MD [facility] [place] [address] documented as of this encounter Visit Diagnoses Not on filedocumented in this encounter Care Teams Live In Caregiver Relationship Specialty Start Date End Date Yung Horn MD [address] [place] [address] PCP - General 11/22/16 documented as of this encounter
--- OUTSIDE RECORDS SUMMARY | 2024-03-03 13:33 | XMS_ITS | Encounter Summary ---
Author Organization [facility] [place] [address] Care Team Providers Care Electrical Logging Operator Name Role Phone Yung Horn MD Primary Care Provider [phone] Encounter Details Date Type Department Care Team (Late st Contact Info) Description 02/23/2021 Telephone [place] [phone] Tatiana Munoz RECTANGULAR TANK COOPER [facility] [place] [address] Social History Tobacco Use Types Packs/Day Years [...] 3:00 PM EDT [place] [address] Manoj Vinson MD [facility] [place] [address] documented as of this encounter Visit Diagnoses Not on filedocumented in this encounter Care Teams Electrical Logging Operator Relationship Specialty Start Date End Date Yung Horn MD [address] [place] [address] PCP - General 11/22/16 documented as of this encounter
--- OUTSIDE RECORDS SUMMARY | 2024-03-03 13:33 | XMS_ITS | Encounter Summary ---
Author Organization [facility] [place] [address] Care Team Providers Care Automated Weaver Name Role Phone Yung Horn MD Primary Care Provider [phone] Reason for Visit * Reason Comments Medication Refill Encounter Details Date Type Department Care Team (Late st Contact Info) Description 08/10/2021 Refill [place] [phone] Tatiana Call APRN [facility] [place] [address] HERR (nonalcoholic steatohepatitis) Social History Tobacco Use [...] [place] [phone] Manoj Vinson MD [facility] [place] [address] documented as of this encounter Visit Diagnoses Diagnosis HERR (nonalcoholic steatohepatitis) Other chronic nonalcoholic liver disease documented in this encounter Care Teams Automated Weaver Relationship Specialty Start Date End Date Yung Horn MD [address] [place] [address] PCP - General 11/22/16 documented as of this encounter
--- OUTSIDE RECORDS SUMMARY | 2024-03-03 13:33 | XMS_ITS | Encounter Summary ---
Author Organization [facility] [place] [address] Care Team Providers Care Liquor Maker Name Role Phone Yung Horn MD Primary Care Provider [phone] Encounter Details Date Type Department Care Team (Late st Contact Info) Description 09/27/2017 1:00 PM EDT Office [place] [address] Thalia Harper APRN [facility] [place] [address] Non-cardiac chest pain Social History Tobacco Use [...] from the ?incisors). This was traversed. The fimig-pr-prrwaca ?limb was characterized by healthy appearing mucosa. [...] 3:00 PM EDT [place] [address] Manoj Vinson MD [facility] [place] [address] documented as of this encounter Visit Diagnoses Diagnosis Non-cardiac chest pain Other chest pain documented in this encounter Care Teams Liquor Maker Relationship Specialty Start Date End Date Yung Horn MD [address] [place] [address] PCP - General 11/22/16 documented as of this encounter
--- OUTSIDE RECORDS SUMMARY | 2024-03-03 13:33 | XMS_ITS | Encounter Summary ---
[place] [address] Care Team Providers Care Oil Pipe Inspector Helper Name Role Phone Yung Horn MD Primary Care Provider Encounter Details Date Type Department Care Team (Late st Contact Info) Description 01/17/2020 Telephone Cardiology at [address] [phone] Yung Olsen MD [facility] [place] [address] Social History Tobacco Use Types Packs/Day Years [...] 3:00 PM EDT Office [place] [phone] Manoj Vinson MD [facility] [place] [address] documented as of this encounter Visit Diagnoses Not on filedocumented in this encounter Care Teams Oil Pipe Inspector Helper Relationship Specialty Start Date End Date Yung Horn MD [address] [place] [address] [place] [address] PCP - General 11/22/16 documented as of this encounter
--- OUTSIDE RECORDS SUMMARY | 2024-03-03 13:33 | XMS_ITS | Encounter Summary ---
[place] [address] Care Team Providers Care Airplane Charter Clerk Name Role Phone Elizabeth Horn MD Primary Care Provider [phone] Encounter Details Date Type Department Care Team (Late st Contact Info) Description 01/17/2020 Telephone Cardiology at [address] [phone] Laurence Giordano LPN Social History Tobacco Use [...] She inquiring about his stress test results. [phone]. Forwarded to Dr. Matias for results. ALEJANDRO Dang documented in this encounter Plan of Treatment Upcoming Encounters Date Type Department Care Team (Late st Contact Info) Description 03/13/2024 3:00 PM EDT Office [place] [address] Manoj Vinson MD [facility] [place] [address] documented as of this encounter Visit Diagnoses Not on filedocumented in this encounter Care Teams Airplane Charter Clerk Relationship Specialty Start Date End Date Elizabeth Horn MD [address] [place] [address] PCP - General 11/22/16 documented as of this encounter
--- OUTSIDE RECORDS SUMMARY | 2024-03-03 13:33 | XMS_ITS | Encounter Summary ---
Author Organization Formerly [facility] [place] [address] Care Team Providers Care Human Insights Lead Ads Marketing Name Role Phone Yung Horn MD Primary Care Provider [phone] Encounter Details Date Type Department Care Team (Latest Contact Info) Description 07/16/2020 1:00 PM EST Procedure [place] [address] Tatiana Munoz APRN [facility] [place] [address] HERR (nonalcoholic steatohepatitis); Alcoholic liver disease Social [...] Diagnose(s): HERR (nonalcoholic steatohepatitis); Alcoholic liver disease [facility] Liver Fibrosis Assessment Report Indication: Alcoholic steatohepatitis/ HERR Performed by: TATIANA MUNOZ APRN Procedure: Vibration Controlled Transient Elastography (VCTE) or Fibroscan [place] Protocol: Patient's identity, procedure and site were [...] 3:00 PM EDT [place] [address] Manoj Vinson MD [facility] [place] [address] documented as of this encounter Procedures Procedure Name Priority Date/Time Associated Diagnosis Comments [id number] Routine 07/16/2020 1:00 PM EST HERR (nonalcoholic steatohepatitis) Alcoholic liver disease documented in this encounter Results * [id number] (07/16/2020 1:00 PM EST) Narrative Tatiana Munoz APRN - 07/16/2020 1:00 PM EST Tatiana Munoz APRN ? 07/16/2020 ??2:18 PM [facility] Liver Fibrosis Assessment Report Indication: ?? Alcoholic steatohepatitis/ HERR ?? Performed by: ??TATIANA MUNOZ APRN Procedure: Vibration Controlled Transient Elastography (VCTE) or Fibroscan [place] Protocol: Patient's identity, procedure and site were [...] unspecified documented in this encounter Care Teams Human Insights Lead Ads Marketing Relationship Specialty Start Date End Date Yung Horn MD [address] [place] [address] PCP - General 11/22/16 documented as of this encounter
--- OUTSIDE RECORDS SUMMARY | 2024-03-03 13:33 | XMS_ITS | Encounter Summary ---
Author Organization [facility] Dorothy [facility] [place] [address] Care Team Providers Care Cell Tuber Machine Name Role Phone Yung Horn MD Primary Care Provider [phone] Encounter Details Date Type Department Care Team (Late st Contact Info) Description 08/30/2018 Telephone [place] [phone] Reji Aaron RN Social History Tobacco Use [...] - 08/30/2018 2:18 PM EST Paged by secretary receptionist, Kaylin, with patient and on the line, they are waiting for a response from Dr. Ramos with the next step in the plan. Forwarding this message to Dr. Ramos via EDH and email. documented in this encounter Plan of Treatment Upcoming Encounters Date Type Department Care Team (Late st Contact Info) Description 03/13/2024 3:00 PM EDT [place] [address] Manoj Vinson MD [facility] [place] [address] documented as of this encounter Visit Diagnoses Not on filedocumented in this encounter Care Teams Cell Tuber Machine Relationship Specialty Start Date End Date Yung Horn MD [address] [place] [address] PCP - General 11/22/16 documented as of this encounter
--- OUTSIDE RECORDS SUMMARY | 2024-03-03 13:33 | XMS_ITS | Encounter Summary ---
Author Organization Formerly [facility] [place] [address] Care Team Providers Care Retail Sales Assistant Name Role Phone Yung Horn MD Primary Care Provider [phone] Reason for Visit * Reason Comments Follow-up Encounter Details Date Type Department Care Team (Late st Contact Info) Description 12/17/2018 1:00 PM EDT Office [place] [address] Kamala Veloz MD [facility] [place] [address] Weight gain status post gastric bypass Social [...] 3:00 PM EDT [place] [address] Manoj Vinson MD [facility] [place] [address] documented as of this encounter Visit Diagnoses Diagnosis Weight gain status post gastric bypass documented in this encounter Care Teams Retail Sales Assistant Relationship Specialty Start Date End Date Yung Horn MD [facility] [address] [place] [address] PCP - General 11/22/16 documented as of this encounter
--- OUTSIDE RECORDS SUMMARY | 2024-03-03 13:33 | XMS_ITS | Encounter Summary ---
Author Organization [facility] Dorothy [facility] [address] Care Team Providers Care Channel Opener Name Role Phone Yung Horn MD Primary Care Provider [phone] Encounter Details Date Type Department Care Team (Late st Contact Info) Description 10/29/2018 2:00 PM EDT Interpretation Only Cardiology at [address] [phone] Neymar Franco Jr., MD [address] [place] [address] Syncope, unspecified syncope type Social History Tobacco [...] 3:00 PM EDT Office Visit Urology at [facility] [place] [address] Manoj Vinson MD [facility] [place] [address] documented as of this encounter Procedures Procedure [...] type documented in this encounter Care Teams Channel Opener Relationship Specialty Start Date End Date Yung Horn MD [address] [place] [address] PCP - General 11/22/16 documented as of this encounter
--- OUTSIDE RECORDS SUMMARY | 2024-03-03 13:33 | XMS_ITS | Encounter Summary ---
Author Organization [facility] Address [facility] [place] [address] Care Team Providers Care Conveyor Belt Installer Name Role Phone Yung Horn MD Primary Care Provider [phone] Encounter Details Date Type Department Care Team (Latest Contact Info) Description 09/24/2018 7:18 AM EDT - 09/24/2018 11:59 PM EDT Hospital Encounter XRay at [address] [place] [address] Robert Ramos MD [facility] [place] [address] Dysphagia, unspecified type Discharge Disposition: Home Social [...] Take 81 mg by mouth Daily. 07/29/2021 LocPlanetUCH ULTRA2 Kit TEST BLOOD GLUCOSE WITH ALL [...] 3:00 PM EDT [place] [address] Manoj Vinson MD [facility] [place] [address] documented as of this encounter Procedures Procedure [...] Electronically signed by: Rossana Mancilla [facility] ([phone]), at 09/24/2018 11:22 AM Narrative 09/24/2018 11:22 AM EDT EXAMINATION: XR FLUORO UPPER GI DOUBLE CONTRAST WWO DELAYED FILMS W/KUB CLINICAL HISTORY: Dysphagia s/p gastric bypass, with hx of sliding hiatal hernia and reflux TECHNIQUE: Double contrast UGI was performed. Fluoroscopic spot films were obtained. Fluoro time: 1.75 minutes COMPARISON: 06/27/2017 FINDINGS: The initial abdominal associate artistic director view shows vascular clips in LEFT midabdomen [...] minutes COMPARISON: 06/27/2017 FINDINGS: The initial abdominal associate artistic director view shows vascular clips in LEFT midabdomenand [...] contact the number below. Electronically signed by: PINKY Brooks [facility]([phone]), at 09/24/2018 11:22 AM Robert Arteaga MD [...] mLs documented in this encounter Care Teams Conveyor Belt Installer Relationship Specialty Start Date End Date Yung Horn MD [address] [place] [address] PCP - General 11/22/16 documented as of this encounter
--- OUTSIDE RECORDS SUMMARY | 2024-03-03 13:33 | XMS_ITS | Encounter Summary ---
Author Organization Formerly [facility] [place] [address] Care Team Providers Care Candle Making Supervisor Name Role Phone Yung Horn MD Primary Care Provider [phone] Encounter Details Date Type Department Care Team (Late st Contact Info) Description 12/17/2018 1:00 PM EDT Office [place] [address] Robert Ramos MD [facility] [place] [address] Obesity, unspecified classification, unspecified obesity type, unspecified [...] late. He is scheduled to see Dr. Wagnre at [facility]. He agreed to increase the level [...] suppression. 20 of 25 minutes spent indirect otru-md-gige counseling and the rest in taking history. PLAN: Increase pantoprazole to 40 mg po bid See Dr. Wagner at [facility] Call after January 01 for follow up Robert Ramos MD Section of Gastroenterology and Hepatology documented in this encounter Plan of Treatment Upcoming Encounters Date Type Department Care Team (Late st Contact Info) Description 03/13/2024 3:00 PM EDT [place] [address] Manoj Vinson MD [facility] [place] [address] documented as of this encounter Visit Diagnoses Diagnosis Obesity, unspecified classification, unspecified obesity type, unspecified whether serious comorbidity present documented in this encounter Care Teams Candle Making Supervisor Relationship Specialty Start Date End Date Yung Horn MD [facility] [place] [address] PCP - General 11/22/16 documented as of this encounter
--- OUTSIDE RECORDS SUMMARY | 2024-03-03 13:33 | XMS_ITS | Encounter Summary ---
[place] [address] Care Team Providers Care Garden Machinery Mechanic Name Role Phone Yung Horn MD Primary Care Provider [phone] Encounter Details Date Type Department Care Team (Late st Contact Info) Description 08/03/2018 Telephone [place] [phone] Suzy Loza Social History Tobacco Use Types [...] message? yes Preferred method of communication: home [phone] documented in this encounter Plan of Treatment Upcoming Encounters Date Type Department Care Team (Late st Contact Info) Description 03/13/2024 3:00 PM EDT [place] [address] Manoj Vinson MD [facility] [place] [address] documented as of this encounter Visit Diagnoses Not on filedocumented in this encounter Care Teams Garden Machinery Mechanic Relationship Specialty Start Date End Date Yung Horn MD [address] [place] [address] PCP - General 11/22/16 documented as of this encounter
--- OUTSIDE RECORDS SUMMARY | 2024-03-03 13:33 | XMS_ITS | Encounter Summary ---
[place] [address] Care Team Providers Care Strap Setter Name Role Phone Yung Horn MD Primary Care Provider [phone] Reason for Visit * Reason Onset Date Comments Results 02/01/2021 Encounter Details Date Type Department Care Team (Late st Contact Info) Description 02/01/2021 Telephone [place] [address] Nafisa Lo, RN Results Social [...] 3:00 PM EDT [place] [address] Manoj Vinson MD [facility] [place] [address] documented as of this encounter Visit Diagnoses Not on filedocumented in this encounter Care Teams Strap Setter Relationship Specialty Start Date End Date Yung Horn MD [address] [place] [address] PCP - General 11/22/16 documented as of this encounter
--- OUTSIDE RECORDS SUMMARY | 2024-03-03 13:33 | XMS_ITS | Encounter Summary ---
Author Organization [facility] Dorothy [facility] [place] [address] Care Team Providers Care Care Giver Name Role Phone Yung Horn MD Primary Care Provider Reason for Visit * Auth/Cert Specialty Diagnoses / Procedures Referred By Marisela ramesh Referred To Contact Diagnoses Chest pain Procedures emergency obsvo Referral ID Status Reason Start Date Expiration Date Visits Re quested Visits Authorized [id number] 1 1 Encounter Details Date Type Department Care Team (Latest Contact Info) Description 07/29/2021 9:20 AM EST Office Visit Cardiology at [address] [address] Zoya Finney T, ANALYSIS REPORTING DEVELOPER [facility] [place] [address] Chest pain, unspecified type; LINTON (dyspnea on exertion); Coronary artery disease involving iroquois coronary artery of iroquois heart, unspecified whether angina present; Pre-operative cardiovascular [...] this encounter Progress Notes * Zoya Finney, ANALYSIS REPORTING DEVELOPER - 07/29/2021 9:20 AM EST Images from the original note were not included. [facility] [place] [address] GENERAL CARDIOLOGY FOLLOW-UP Subjective: CC: Follow up of dyspnea on exertion HPI: Yung Betancur is a 65 y.o. male with chest pain/LINTON of unknown origin and non-obstructive CAD.Work up has included: ?? Cath 05/26: Mid LAD bridge, c/w no significant CAD. R heart pressures not assessed ?? Echo 08/29 ([place], [place]): Normal LV, mildly dilated RV, PASP 30-40 [...] average 110s/60s. He reportedly saw Pulmonology at [facility] in the summer, but records are [...] which did not show evidence of ischemia. 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 [place] [address] documented as of this encounter Procedures Procedure [...] (Bezet) 430 ms MUSE SYSTEM Calculated P [place] 67 degrees MUSE SYSTEM Calculated R [place] 0 degrees MUSE SYSTEM Calculated T [place] 55 degrees MUSE SYSTEM INTERPRETATION Sinus tachycardia [...] and respiratory abnormality Coronary artery disease involving iroquois coronary artery of iroquois heart, unspecified whether angina present Pre-operative cardiovascular examination Acute thoracic back pain, unspecified back pain laterality documented in this encounter Additional Health Concerns Infection Onset Date Last Indicated Resolved Time Rule Out COVID-19 07/29/2021 07/29/2021 07/29/2021 3:34 PM EST documented as of this encounter Care Teams Care Giver Relationship Specialty Start Date End Date Yung Horn MD [address] [place] [address] PCP - General 11/22/16 documented as of this encounter
--- OUTSIDE RECORDS SUMMARY | 2024-03-03 13:33 | XMS_ITS | Encounter Summary ---
[place] [address] Care Team Providers Care Clinical Secretary Name Role Phone Elizabeth Horn MD Primary Care Provider [phone] Reason for Referral * Diagnostic Test (Routine) - Closed Specialty Diagnoses / Procedures Referred By Contac t Referred To Contact Diagnoses LINTON (dyspnea on exertion) Procedures Echocardiogram Stress (Treadmill) Elizabeth Olsen MD [facility] [place] [address] [facility] [place] [address] Referral ID Status Reason Start Date Expiration Date V isits Requested Visits Authorized [id number] Closed Specialty Service Requested 01/14/2020 05/13/2020 1 1 Reason for Visit * Consultation (Routine) - Specialty Diagnoses / Procedures Referred By Contac t Referred To Contact Cardiology Diagnoses Other forms of dyspnea DYSPNEA ON EXERTION Elizabeth Horn MD [address] [place] [address] [place] [address] [facility] Cardiology [address] [place] [phone] Referral ID Status Reason Start Date Expiration Date V isits Requested Visits Authorized [id number] Consult, Test & Treat Connection [facility] PCP Updated and/or Approved 12/17/2019 06/17/2020 6 6 Encounter Details Date Type Department Care Team (Latest Contact Info) Description 12/25/2019 9:40 AM EDT TH Visit (TeleHealth) Cardiology at [address] [place] [address] Elizabeth Olsen MD [facility] [place] [address] Syncope, unspecified syncope type; LINTON (dyspnea on [...] Take 81 mg by mouth Daily. ??? ONENanotech SemiconductorUCH ULTRA2 Kit TEST BLOOD GLUCOSE WITH ALL [...] on file Retired in 2012, lives in [place] for the past year. 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 Habits: smoked, [...] 3:00 PM EDT [place] [address] Manoj Vinson MD [facility] [address] documented as of this encounter Results * EKG 12 Lead (10/08/2020 9:20 AM EDT) Ventricular rate 85 BPM MUSE SYSTEM Atrial Rate 85 BPM MUSE SYSTEM P-R Interval 156 ms MUSE SYSTEM QRS Duration 90 ms MUSE SYSTEM Q-T Interval 360 ms MUSE SYSTEM QTC Calculated (Bezet) 428 ms MUSE SYSTEM Calculated P [place] 57 degrees MUSE SYSTEM Calculated R [place] 4 degrees MUSE SYSTEM Calculated T [place] 35 degrees MUSE SYSTEM INTERPRETATION Sinus rhythm [...] JOHNSON ? (Age): 1955(64y) Med Rec#: ? [id number] ?Sex: ?M ? Site Loc: ? [facility] ?Ht / Wt: ??180(cm)/113(kg) Pt. Loc: ?Echo Lab ?BSA: ?2.31 Study Date: ?? 01/14/2020 ?Pt. Type: Tape: ? Referring: PRETTY Referring: Elizabeth Olsen Reading: Saran Shetty ([id number]) Vamp Stitcher: Manisha Aguilar Pantry Chef: More Case Diagnosis: *Dyspnea, unspecified (R06.00) Indication: [...] Normal ? Mid-Inferoseptal ?Normal ? Normal ? [place]-Septal ? Normal ? Normal ? [place]-Anterior ? Normal ? Normal ? [place]-Lateral ?Normal ? Normal ? [place]-Inferior ? Normal ? Normal ? [place]-Tip ?Normal ? Normal ? This report has been electronically signed by: Saran Shetty M.D. ? 01/14/2020 14:02:39 Images reviewed and interpretation verified [facility] Cardiac Ultrasound Laboratory Procedure Note Saran Shetty MD - 01/14/2020 Procedure: Stress Echocardiogram Patient: TAYLOR SUAREZ(Age): 1955(64y) Med Rec#: [id number] Sex: M [place] [facility] Ht / Wt: 180(cm)/113(kg) Pt. Loc: Echo Lab BSA: 2.31 Study Date: 01/14/2020 Pt. Type: Tape: Referring: PRETTY Referring: Elizabeth Olsen Reading: Saran Shetty ([id number]) Vamp Stitcher: Manisha Aguilar Pantry Chef: More Case Diagnosis: *Dyspnea, unspecified (R06.00) Indication: [...] Normal Mid-Inferior Normal Normal Mid-Inferoseptal Normal Normal [place]-Septal Normal Normal [place]-Anterior Normal Normal [place]-Lateral Normal Normal [place]-Inferior Normal Normal [place]-Tip Normal Normal This report has been electronically signed by: Saran Shetty M.D. 01/14/2020 14:02:39 Images reviewed and interpretation verified [facility] Cardiac [facility] Elizabeth Olsen MD ECHO ORDERABLES documented in this encounter Visit Diagnoses Diagnosis Syncope, unspecified syncope type LINTON (dyspnea on exertion) Other dyspnea and respiratory abnormality LINTON (dyspnea on exertion) Other dyspnea and respiratory abnormality documented in this encounter Care Teams Clinical Secretary Relationship Specialty Start Date End Date Elizabeth Horn MD [address] [place] [address] PCP - General 11/22/16 documented as of this encounter
--- OUTSIDE RECORDS SUMMARY | 2024-03-03 13:33 | XMS_ITS | Encounter Summary ---
Author Organization [facility] Address [facility] [place] [address] Care Team Providers Care Product Tester Fiberglass Name Role Phone Yung Horn MD Primary Care Provider [phone] Reason for Visit * Reason Comments Chest Pain Shortness of Breath * Auth/Cert Specialty Diagnoses / Procedures Referred By Contac t Referred To Contact Diagnoses Chest pain Procedures emergency obsvo Referral ID Status Reason Start Date Expiration Date Visits Re quested Visits Authorized [id number] 1 1 Encounter Details Date Type Department Care Team (Late st Contact Info) Description 07/29/2021 10:04 AM EST - 07/30/2021 1:18 PM EST Emergency [place] [address] Samson García MD [facility] [place] [address] Suzy Treviño MD [facility] [place] [address] Nilam Herbert MD [facility] [place] [address] Chuck Salinas MD [facility] [place] [address] Chest pain (Primary Dx) Discharge Disposition: Home [...] sent through Care Everywhere. * Chest Pain (Sri Lankan) documented in this encounter Medications at Time [...] QTC Calculated (Bezet) 430 ms Calculated P [place] 67 degrees Calculated R [place] 0 degrees Calculated T [place] 55 degrees INTERPRETATION Sinus tachycardia Otherwise normal [...] QTC Calculated (Bezet) 413 ms Calculated P [place] 50 degrees Calculated R [place] -11 degrees Calculated T [place] 43 degrees INTERPRETATION Normal sinus rhythm Normal ECG When compared with ECG of 29-JUL-2021 09:07, No significant change was found I personally reviewed the tracing and edited the fellows interpretation Confirmed by fellow Dae Solano ([id number]) on 07/29/2021 8:52:02 PM Confirmed by MD Ch Stanislav ([id number]) on 07/30/2021 8:01:40 AM Basic Metabolic Panel [...] PCR Not Detected Not Detected SARS-CoV-2 Source SOLID WASTE FACILITY OPERATOR Swab EKG 12 Lead Result Value Ref Range Ventricular rate 77 BPM Atrial Rate 77 BPM P-R Interval 174 ms QRS Duration 92 ms Q-T Interval 358 ms QTC Calculated (Bezet) 405 ms Calculated P [place] 57 degrees Calculated R [place] -8 degrees Calculated T [place] 41 degrees INTERPRETATION Normal sinus rhythm Normal ECG When compared with ECG of 29-JUL-2021 10:05, (unconfirmed) No significant change was found Confirmed by MD Bourgeois David C. ([id number]) on 07/29/2021 4:26:06 PM POCT Glucose Result Value Ref Range POC Glucose 146 65 - 199 mg/dL EKG 12 Lead Result Value Ref Range Ventricular rate 92 BPM Atrial Rate 92 BPM P-R Interval 176 ms QRS Duration 96 ms Q-T Interval 354 ms QTC Calculated (Bezet) 437 ms Calculated P [place] 46 degrees Calculated R [place] -11 degrees Calculated T [place] 44 degrees INTERPRETATION Normal sinus rhythm Incomplete right bundle branch block Borderline ECG When compared with ECG of 29-JUL-2021 14:47, No significant change was found Confirmed by MD Barnes Danette ([id number]) on 07/30/2021 9:23:04 AM Troponin Result Value [...] by mouth daily. 1 tablet Refills: 0 Activaided Orth[employer]uch Ultra2 Meter Kit TEST BLOOD GLUCOSE WITH [...] Provider Department Dept Phone 07/30/2021 10:40 AM [facility] STRESS Nuclear Medicine at [facility] Arrive at: 3Z INTERVENTIONAL RADIOLOGY [phone] Please do not eat or drink anything for at least 3 hours prior to your appointment. Also, Do not consume any caffeine in any form from food, beverages or medciation for 12 hours prior to exam. This includes: decaffeinated coffee and beverages, chocolate in any form, over the counter medications containing caffeine, ex: Exedrin Migraine etc. 07/30/2021 1:05 PM [facility] ROOM 2 Nuclear Medicine at [facility] Arrive at: 3Z INTERVENTIONAL RADIOLOGY [phone] General Instructions You were evaluated in the [...] contact the Clinical Decision Unit through the [facility] Web Production Designer . Ananth Amezcua PA 07/30/21 1029 * [...] components within normal limits RAPID COVID-19 PCR ([facility]) CBC (WITH DIFF) TROPONIN BLUE TUBE [...] have questions please contact the health career services coordinator that requested your imaging first. Pharmacologic Stress [...] Directive: No, need to discuss (Spouse: Tahmina ([phone])) If AD's have not been completed Spouse: Tahmina ([phone]) would be surrogate decision maker per ID surrogate decision making law. (Only good for 180 days) Any patient receiving care at [facility] must abide by ID law. The hierarchy for surrogate decision making [...] (i) The agent with financial power of breaker oiler or a conservator appointed in accordance with RSA 464-A. (j) The guardian of the patient???s estate. Current Coping/Education/Information Needs: Advanced DIrective Current Functional Ability: Assistive Equipment Functional Status Prior to Admission: Assistive Equipment Home Environment: Others in the home: spouse. Current Living Arrangements: home/apartment/condo. Accessibility Concerns: . Current DME: oxygen (BIPAP) Home Address listed as: [address] [address] Social & Family Supports: All names listed below confirmed with patient as current and correct Extended Emergency Contact Information Primary Emergency Contact: Tahmina Betancur [facility] Mobile Relation: Spouse Secondary Emergency Contact: [...] Insurance: N/A Prescription Coverage: No Preferred Pharmacy: [facility] [address] [address] [id number] - [place], [place] - [address] [facility] [address] [id number] AT [address] [address] [place] Status: Patient is a : unable to assess Primary Care Provider: Yung Horn MD [phone] Patient/Caregiver Goals of Treatment: Return home when [...] with transition of care planning. Jennifer East FOOD PRODUCTS SALES REPRESENTATIVE * ED Triage - More Aranda RN [...] 3:00 PM EDT [place] [address] Manoj Vinson MD [facility] [place] [address] Scheduled Orders Name Type Priority Associated Diagnoses [...] have questions please contact the health career services coordinator that requested your imaging first. ? Narrative [...] who have questions please contactthe health career services coordinator that requested your imaging first. Samson García MD IMG NM ORDERABLES * [...] have questions please contact the health career services coordinator that requested your imaging first. ? Narrative [...] who have questions please contactthe health career services coordinator that requested your imaging first. Samson García MD [facility] ORDERABLES * Troponin (07/29/2021 8:07 PM EST) [...] meets the diagnosis for a myocardial infarction (CO). Detection of a rise and/or fall of cTnT, with at least one value greater than the 99th percentile (> or = 0.01) and with at least one of the following ?? Symptoms of ischemia ?? New or presumed new significant AD-dyfsqmk-U wave (ST-T) changes or new left bundle [...] additional sample may be indicated. Reference: Third [place] Definition of Myocardial Infarction. Journal of the [place]e College of Cardiology 2012;60:1581-98 Blood 07/29/2021 8:07 PM EST 07/29/2021 8:07 PM EST Narrative Resulting Agency Comment Spec In Lab Samson García MD CHEMISTRY ORDERABLES Performing Organization Address [facility] Co de Phone Number [facility] [place] [address] * EKG 12 Lead (07/29/2021 7:58 PM EST) Ventricular rate 92 BPM MUSE SYSTEM Atrial Rate 92 BPM MUSE SYSTEM P-R Interval 176 ms MUSE SYSTEM QRS Duration 96 ms MUSE SYSTEM Q-T Interval 354 ms MUSE SYSTEM QTC Calculated (Bezet) 437 ms MUSE SYSTEM Calculated P [place] 46 degrees MUSE SYSTEM Calculated R [place] -11 degrees MUSE SYSTEM Calculated T [place] 44 degrees MUSE SYSTEM INTERPRETATION Normal sinus rhythm Incomplete right bundle branch block Borderline ECG When compared with ECG of 29-JUL-2021 14:47, No significant change was found Confirmed by MD Cameron, Nadia ([id number]) on 07/30/2021 9:23:04 AM MUSE SYSTEM 07/29/2021 7:58 PM EST 07/30/2021 9:23 AM EST Alec Lopez MD ECG ORDERABLES Performing Organization Address [facility] [[email or web address]] de Phone Number MUSE SYSTEM * POCT Glucose (07/29/2021 6:48 PM EST) Glucose, POC 146 65 - 199 mg/dL [facility] Comment: Supplemental ranges: <140 mg/dL before meals <180 mg/dL all other times of the day Blood 07/29/2021 6:48 PM EST 07/29/2021 6:48 PM EST Suzy Treviño MD POINT OF CARE TEST O RDERABLES Performing Organization Address [facility] Co de Phone Number [facility] [place] [address] * EKG 12 Lead (07/29/2021 2:47 PM EST) Ventricular rate 77 BPM MUSE SYSTEM Atrial Rate 77 BPM MUSE SYSTEM P-R Interval 174 ms MUSE SYSTEM QRS Duration 92 ms MUSE SYSTEM Q-T Interval 358 ms MUSE SYSTEM QTC Calculated (Bezet) 405 ms MUSE SYSTEM Calculated P [place] 57 degrees MUSE SYSTEM Calculated R [place] -8 degrees MUSE SYSTEM Calculated T [place] 41 degrees MUSE SYSTEM INTERPRETATION Normal sinus [...] using the Simplexa COVID-19 Direct Assay by Skaffl as authorized by the FDA issued Emergency [...] Department of Pathology and Laboratory Medicine at [facility], certified under the Clinical Laboratory Improvement [...] fact sheets at the following FDA website: https://www.fda.gov/medical-devices/zyynxfbbkih-mvatnzt-5014-uewyp-47-smhfnkxam- use-a rfqdxqcprlrwu-qugrdur-otssuse/dmnux-tgugmehyaem-fajk SARS-CoV-2 Source SOLID WASTE FACILITY OPERATOR Swab MA [facility] Nasopharyngeal Swab 07/29/19 11:21 AM EST 07/29/2021 1:39 PM EST Comment:Symptoms->COVID-19 S uspected Narrative Resulting Agency Comment Spec In Lab Samson García MD MICROBIOLOGY - GENER AL ORDERABLES [facility] [place] [address] * XR Chest One View (07/29/2021 10:50 [...] have questions please contact the health career services coordinator that requested your imaging first. ? Narrative [...] who have questions please contactthe health career services coordinator that requested your imaging first. Electronically signed by: Jose Loya [facility]([phone]), at 07/29/2021 11:09 AM Samson García MD IMG DX ORDERABLES * (ABNORMAL) D-Dimer, Quantitative (07/29/2021 10:12 AM EST) [facility] Signature D-Dimer 637(H) 0 - 500 FEU [...] ORDERABLE S Performing Organization Address [facility] Co de Phone Number [facility] [place] [address] * Gold Tube HOLD (07/29/2021 10:12 AM EST) Gold Hold Sample in lab. [facility] Blood Venous Draw / Unknown 07/29/2021 10:12 AM EST 07/29/2021 10:28 AM EST Samson García MD CHEMISTRY ORDERABLES Performing Organization Address [facility] Co de Phone Number [facility] [place] [phone] * Differential, Automated (07/29/2021 10:12 AM EST) Neutrophil % 71.7 % [facility] Neutrophil Absolute 5.80 1.70 - 6.10 x10(3)/[facility] Lymph % 20.4 % [facility] Lymphocytes Abs 1.6 0.9 - 3.2 x10(3)/[facility] Monocyte % 5.6 % [facility] Monocyte Abs 0.4 0.3 - 0.9 x10(3)/[facility] Eos % 1.6 % [facility] Eosinophils Abs 0.1 0.0 - 0.4 x10(3)/[facility] Basophil % 0.2 % [facility] Baso Absolute 0.0 0.0 - 0.1 x10(3)/[facility] Immature Gran % 0.50 % [facility] Comment: Immature granulocytes(IG's)percentage and absolute count will include metamyelocytes, myelocytes, and promyelocytes. Blood smears from CBCs yielding IG's will be scanned manually for concordance. If this scan disagrees with the automated IG or if promyelocytes are noted, a manual differential will be performed. Immature Gran Absolute 0.04 0.00 - 0.04 x10(3)/[facility] Blood 07/29/2021 10:1 2 AM EST 07/29/2021 10:27 AM EST Narrative Resulting Agency Comment Spec In Lab Samson García MD HEMATOLOGY ORDERABLE S Performing Organization Address City/State/[facility] Co de Phone Number [facility] [place] [address] * Hemogram (07/29/2021 10:12 AM EST) White Blood Cell 8.1 4.0 - 9.5 x10(3)/[facility] Red Blood Cell 5.05 4.58 - 5.54 x10(6)/[facility] Hemoglobin 15.2 13.7 - 16.5 g/dL [facility] Hematocrit 44.4 40.5 - 48.5 % [facility] Mean Cell Volume 87.9 82.9 - 93.[address] [facility] Mean Cell Hemoglobin 30.1 27.5 - 32.[address] [facility] Mean Cell Hemoglobin Concentration 34.2 32.0 - 35.7 g/dL [facility] Platelet 186 145 - 357 x10(3)/[facility] RDW Standard Deviation 39.8 36.0 - 45.[address] [facility] RDW coefficient of variation 12.4 11.4 - 13.8 % [facility] Mean Platelet Volume 10.2 7.6 - 12.[address] [facility] NRBC% auto 0.0 % [facility] NRBC Absolute 0.000 0.000 - 0.000 x10(3)/mcL [facility] Blood 07/29/2021 10:1 2 AM EST 07/29/2021 10:27 AM EST Narrative Resulting Agency Comment Spec In Lab Samson García MD HEMATOLOGY ORDERABLE S Performing Organization Address [facility] Co de Phone Number [facility] [place] [address] * Blue Tube HOLD (07/29/2021 10:12 AM EST) Blue Hold Sample in lab. [facility] Blood 07/29/2021 10:1 2 AM EST 07/29/2021 10:27 AM EST Samson García MD HEMATOLOGY ORDERABLE S Performing Organization Address [facility] Co de Phone Number [facility] [place] [address] * Troponin (07/29/2021 10:12 AM EST) Pathologist [facility] Troponin-T <0.01 0.00 - 0.00 ng/mL [facility] Comment: The 99th percentile for Troponin T is less than 0.01 ng/mL, any detectable cTnT concentration using this assay should be considered elevated. According to the third universal definition of myocardial infarction the following criteria with a clinical presentation consistent with acute myocardial ischemia meets the diagnosis for a myocardial infarction (CO). Detection of a rise and/or fall of cTnT, with at least one value greater than the 99th percentile (> or = 0.01) and with at least one of the following ?? Symptoms of ischemia ?? New or presumed new significant MI-mqyheej-S wave (ST-T) changes or new left bundle [...] additional sample may be indicated. Reference: Third [place] Definition of Myocardial Infarction. Journal of the [place] College of Cardiology 2012;60:1581-98 Blood 07/29/2021 10:1 2 AM EST 07/29/2021 10:27 AM EST Narrative Resulting Agency Comment Spec In Lab Samson García MD CHEMISTRY ORDERABLES [facility] [place] [address] * (ABNORMAL) Basic Metabolic Panel (non-fasting) (07/29/2021 [...] CHEMISTRY ORDERABLES Performing Organization Address City/[facility] Co de Phone Number [facility] [place] [phone] * EKG 12 Lead (07/29/2021 10:05 AM EST) Ventricular rate 90 BPM MUSE SYSTEM Atrial Rate 90 BPM MUSE SYSTEM P-R Interval 162 ms MUSE SYSTEM QRS Duration 90 ms MUSE SYSTEM Q-T Interval 338 ms MUSE SYSTEM QTC Calculated (Bezet) 413 ms MUSE SYSTEM Calculated P [place] 50 degrees MUSE SYSTEM Calculated R [place] -11 degrees MUSE SYSTEM Calculated T [place] 43 degrees MUSE SYSTEM INTERPRETATION Normal sinus rhythm Normal ECG When compared with ECG of 29-JUL-2021 09:07, No significant change was found I personally reviewed the tracing and edited the fellows interpretation Confirmed by fellow Dae Solano ([id number]) on 07/29/2021 8:52:02 PM Confirmed by MD Ch Stanislav ([id number]) on 07/30/2021 8:01:40 AM MUSE SYSTEM 07/29/2021 10:0 5 AM EST 07/30/2021 8:01 AM EST Samson García MD ECG ORDERABLES Performing Organization Address City/[facility]/ZIP Co de Phone Number MUSE SYSTEM documented [...] Unless allergic or given Prior To Admission (MINES INSPECTOR). If partial dose administered MINES INSPECTOR administer remaining MG for a total dose [...] Unless allergic or given Prior To Admission (MINES INSPECTOR). If partial dose administered MINES INSPECTOR administer remaining MG for a total dose [...] documented as of this encounter Care Teams Product Tester Fiberglass Relationship Specialty Start Date End Date Yung Horn MD [address] [place] [id number] PCP - General 11/22/16 documented as of this encounter
--- OUTSIDE RECORDS SUMMARY | 2024-03-03 13:33 | XMS_ITS | Encounter Summary ---
Author Organization [facility] [place] [address] Care Team Providers Care Integration Analyst Name Role Phone Yung Horn MD Primary Care Provider Reason for Visit * Reason Comments Medication Refill Encounter Details Date Type Department Care Team (Late st Contact Info) Description 12/06/2020 Refill [place] [phone] Robert Ramos MD [facility] [place] [address] HERR (nonalcoholic steatohepatitis) Social History Tobacco Use [...] 3:00 PM EDT Office [place] [phone] Manoj Vinson MD [facility] [place] [address] documented as of this encounter Visit Diagnoses Diagnosis HERR (nonalcoholic steatohepatitis) Other chronic nonalcoholic liver disease documented in this encounter Care Teams Integration Analyst Relationship Specialty Start Date End Date Yung Horn MD [address] [place] [phone] PCP - General 11/22/16 documented as of this encounter
--- OUTSIDE RECORDS SUMMARY | 2024-03-03 13:34 | XMS_ITS | Encounter Summary ---
[facility] Organization [facility] [place] [address] Care Team Providers Care Laboratory Machinist Name Role Phone Boston Hernandez MD Primary Care Provider [phone] Reason for Visit * Auth/Cert Specialty Diagnoses / Procedures Referred By Contac t Referred To Contact Diagnoses Iron deficiency anemia, unspecified FE Def Anemia Procedures PRO UPPER GI ENDOSCOPY, DIAGNOSTIC PRO COLONOSCOPY, DIAGNOSTIC EGD, UPPER GI ENDOSCOPY COLONOSCOPY, DIAGNOSTIC Referral ID Status Reason Start Date Expiration Date Visits Re quested Visits Authorized [id number] 1 1 Encounter Details Date Type Department Care Team (Late st Contact Info) Description 08/05/2015 3:00 PM EST - 08/05/2015 4:00 PM EST [place] [address] Kwan Forte MD [facility] DR [place]STRO[place] [address] EGD, UPPER GI ENDOSCOPY (WRVU 2.09) Social [...] - 08/05/2015 3:43 PM EST Please call [phone] before 5pm with problems, questions or concerns, after 5pm call the Hospital at [phone] and ask to speak to the Chicken Tender weight control lecturer and the hydraulic jack operator will contact that person for you. [...] Everywhere. * EGD (UPPER ENDOSCOPY) : POST-OP (ERITREAN) * COLONOSCOPY : POST-OP (ERITREAN) documented in this encounter Medications at Time [...] 3:00 PM EDT Office Visit Urology at [facility] [place] [address] Manoj Vinson MD [facility] [place] [address] documented as of this encounter Procedures Procedure [...] Report (08/05/2015 3:33 PM EST) Final Diagnosis [id number] ? Location: The signing pathologist has (i) [...] ing: (T1) ??pps 08/07/2015 3:03 PM EST [facility] GI Biopsy 08/05/2015 3:33 PM EST 08/05/2015 3:33 PM EST GI Biopsy 08/05/2015 3:33 PM EST 08/05/2015 3:33 PM EST Kwan Forte MD PATHOLOGY/CYTOLOGY ORDERABLES [facility] [place] [address] * Specimen to Pathology (surgical or derm) (08/05/2015 3:33 PM EST) AP Specimen 08/05/2015 3:33 PM EST 08/05/2015 3:33 PM EST Narrative [facility] - 08/05/2015 3:33 PM EST Specimen requisition ordered. ??Separate Pathology report to follow Kawn Forte MD PATHOLOGY/CYTOLOGY ORDERABLES Performing Organization Address [facility]/State/ZIP Co de Phone Number [facility] * Specimen to Pathology (surgical or derm) (08/05/2015 3:33 PM EST) AP Specimen 08/05/2015 3:33 PM EST 08/05/2015 3:33 PM EST Narrative [facility] - 08/05/2015 3:33 PM EST Specimen requisition ordered. ??Separate Pathology report to follow Kwan Forte MD PATHOLOGY/CYTOLOGY ORDERABLES Performing Organization Address [facility]/State/ZIP Co de Phone Number [facility] * UPPER GI ENDOSCOPY (08/05/2015 2:52 PM EST) UPPER GI ENDOSCOPY [facility] Endoscopy ___ Patient Name: Yung Betancur ? Procedure Date: 08/05/2015 2:52 PM ? N: [id number] ? Date of : 1955 ? Age: 59 ? Order #: [id number] ? ___ Procedure: ? Upper GI endoscopy Indications: ? Gastrointestinal bleeding Providers: ? Kwan Forte MD, Roosevelt Donnelly ? MATEO Hadley, Dee Dee Lopes, ? Hobbing Press Operator Referring MD: ?Boston Hernandez MD Medicines: ? [...] appearing mucosa. This was ? traversed. The jwbfm-iu-mdejhbk limb was ? characterized by healthy appearing mucosa. The ? jejunojejunal anastomosis was characterized by ? healthy appearing mucosa. The urxuzeqo-ca-ueajlzf ? limb was not examined as it [...] * COLONOSCOPY (08/05/2015 2:52 PM EST) COLONOSCOPY [facility] Endoscopy Patient Name: Yung Betancur ? Procedure Date: 08/05/2015 2:52 PM ? N: [id number] ? Date of : 1955 ? Age: 59 ? Order #: [id number] ? Procedure: ? Colonoscopy Indications: ? Hematochezia Providers: ? Kwan Forte MD, Roosevelt Donnelly ? Leonie, RN, Dee Dee Lopes, ? Hobbing Press Operator Referring MD: ?Boston Hernandez MD Medicines: ? [...] Glucose, POC 172 65 - 199 mg/dL [facility] Comment: Supplemental ranges: <140 mg/dL before [...] RN) documented in this encounter Care Teams Laboratory Machinist Relationship Specialty Start Date End Date Boston Hernandez MD [facility] [address] [place] [address] PCP - General General Internal Medicine 05/27/1511/07 documented as of this encounter
--- OUTSIDE RECORDS SUMMARY | 2024-03-03 13:34 | XMS_ITS | Encounter Summary ---
Author Organization [facility] [place] [address] Care Team Providers Care Barrel Filler Name Role Phone Yung Horn MD Primary Care Provider [phone] Reason for Visit * Auth/Cert Specialty Diagnoses / Procedures Referred By Contac t Referred To Contact Diagnoses Chest pain CHEST PAIN NSTEMI Procedures CARDIAC CATHETERIZATION Referral ID Status Reason Start Date Expiration Date Visits Re quested Visits Authorized [id number] 1 1 Encounter Details Date Type Department Care Team (Latest Contact Info) Description 05/25/2017 - 05/25/2017 11:59 PM EST Hospital Encounter [place] [address] Puneet Vines MD [facility] [place] [address] Discharge Disposition: Home Social History Tobacco Use [...] 3:00 PM EDT [place] [address] Manoj Vinson MD [facility] [place] [address] documented as of this encounter Procedures Procedure Name Priority Date/Time Associated Diagnosis Comments FILM LIBRARY STORAGE ONLY DX CHEST Routine 05/25/2017 12:00 AM EST documented in this encounter Results * Film Library- Storage Only DX Chest (05/25/2017 12:00 AM EST) Narrative [facility] - 05/26/2017 2:59 PM EST This exam is for storage only and is auto-finalizing. Puneet Vines MD IMG FILM LIBRARY ORD ERABLES [place], [place] documented in this encounter Visit Diagnoses Not on filedocumented in this encounter Care Teams Barrel Filler Relationship Specialty Start Date End Date Yung Horn MD [facility] [place] [address] PCP - General 11/22/16 documented as of this encounter
--- OUTSIDE RECORDS SUMMARY | 2024-03-03 13:34 | XMS_ITS | Encounter Summary ---
[place] [address] Care Team Providers Care Bilingual Legal Assistant Name Role Phone Yung Horn MD Primary Care Provider [phone] Reason for Visit * Reason Onset Date Comments Results 06/27/2017 Encounter Details Date Type Department Care Team (Late st Contact Info) Description 06/27/2017 Telephone [place] [address] Ori Erickson RN Results Social History Tobacco [...] day. No questions or concerns. Mailed personal security representative form to patient's home address. * [...] 3:00 PM EDT Office [place] [address] Manoj Vinson MD [facility] [place] [address] documented as of this encounter Visit Diagnoses Not on filedocumented in this encounter Care Teams Bilingual Legal Assistant Relationship Specialty Start Date End Date Yung Horn MD [facility] [place] [address] [place] [address] PCP - General 11/22/16 documented as of this encounter
--- OUTSIDE RECORDS SUMMARY | 2024-03-03 13:34 | XMS_ITS | Encounter Summary ---
Author Organization [facility] Dorothy joshlaurita [place] [id number] Care Team Providers Care Payroll Services Analyst Name Role Phone Yung Horn MD Primary Care Provider [phone] Reason for Referral * Diagnostic Test (Routine) - Closed Specialty Diagnoses / Procedures Referred By Contac t Referred To Contact Radiology Diagnoses Non-cardiac chest pain Procedures XR Fluoro Barium Swallow Thalia Harper APRN [facility] [place] [address] [facility] [address] [place] [address] [place] [address] Referral ID Status Reason Start Date Expiration Date V isits Requested Visits Authorized [id number] Closed Specialty Service Requested 06/27/2017 06/27/2018 1 1 Reason for Visit * Diagnostic Test (Routine) - Closed Specialty Diagnoses / Procedures Referred By Contac t Referred To Contact Radiology Diagnoses Non-cardiac chest pain Procedures XR Fluoro Barium Swallow Thalia Harper APRN [facility] [place] [address] [facility] [address] [place] [address] [place] [address] Referral ID Status Reason Start Date Expiration Date V isits Requested Visits Authorized [id number] Closed Specialty Service Requested 06/27/2017 06/27/2018 1 1 Encounter Details Date Type Department Care Team (Latest Contact Info) Description 06/27/2017 11:00 AM EST - 06/27/2017 11:59 PM EST Hospital Encounter XRay at [address] [place] [address] Thalia Harper APRN [facility] GASTROENTEROLOGY [place]PT. [place] [address] Non-cardiac chest pain Discharge Disposition: Home Social [...] EDT [place] [address] Manoj Vinson MD [facility] [place] [place] [address] documented as of this encounter Procedures Procedure [...] [facility], at108/30/2016 10:04 AM Thalia Harper EXHIBIT CARPENTER IMG FLUORO ORDERABLE S documented in this [...] mLs documented in this encounter Care Teams Payroll Services Analyst Relationship Specialty Start Date End Date Yung Horn MD [address] [place] [address] PCP - General 11/22/16 documented as of this encounter
--- OUTSIDE RECORDS SUMMARY | 2024-03-03 13:34 | XMS_ITS | Encounter Summary ---
Author Organization [facility] [place] [address] Care Team Providers Care Textile Examiner Name Role Phone Yung Horn MD Primary Care Provider [phone] Reason for Visit * Auth/Cert Specialty Diagnoses / Procedures Referred By Contac t Referred To Contact Diagnoses nccp Procedures PRO UPPER GI ENDOSCOPY, DIAGNOSTIC EGD, UPPER GI ENDOSCOPY Referral ID Status Reason Start Date Expiration Date Visits Re quested Visits Authorized [id number] 1 1 Encounter Details Date Type Department Care Team (Latest Contact Info) Description 07/31/2017 1:00 PM EST Procedure [place] [address] Gastroesophageal reflux disease, esophagitis presence not specified [...] of Seth procedure and use of the product/device technologist. documented in this encounter Plan of Treatment Upcoming Encounters Date Type Department Care Team (Late st Contact Info) Description 03/13/2024 3:00 PM EDT [place] [address] Manoj Vinson MD [facility] [place] [address] documented as of this encounter Visit Diagnoses Diagnosis Gastroesophageal reflux disease, esophagitis presence not specified documented in this encounter Care Teams Textile Examiner Relationship Specialty Start Date End Date Yung Horn MD [address] [place] [address] PCP - General 11/22/16 documented as of this encounter
--- OUTSIDE RECORDS SUMMARY | 2024-03-03 13:34 | XMS_ITS | Encounter Summary ---
Author Organization [facility] [place] [address] Care Team Providers Care Adhesive Bandage Making Operator Name Role Phone Yung Horn MD Primary Care Provider [phone] Reason for Referral * Diagnostic Test (Routine) - Closed Specialty Diagnoses / Procedures Referred By Contac t Referred To Contact Radiology Diagnoses Non-cardiac chest pain Procedures XR Fluoro Barium Swallow Thalia Harper APRN [facility] [place] [address] [facility] Rad Xray [address] [place] [address] [place] [address] Referral ID Status Reason Start Date Expiration Date V isits Requested Visits Authorized [id number] Closed Specialty Service Requested 06/27/2017 06/27/2018 1 1 Reason for Visit * Reason Comments GI Problem * Consultation (Routine) - Specialty Diagnoses / Procedures Referred By Contac t Referred To Contact Gastroenterology Diagnoses Chest pain, unspecified type Mariana Holden MD [facility] GENERAL [place] [address] [facility] [place] [address] Referral ID Status Reason Start Date Expiration Date V isits Requested Visits Authorized [id number] Specialty Service Requested PCP Updated and/or Approved 05/28/2017 05/28/2018 6 6 Encounter Details Date Type Department Care Team (Late st Contact Info) Description 06/27/2017 10:00 AM EST Office [place] [address] Thalia Harper APRN [facility] [place] [address] Non-cardiac chest pain Social History Tobacco Use [...] AM EST Section of Gastroenterology and Hepatology [address] [place] [address] .Yung Betancur : 1955 Patient is here [...] healthy appearing mucosa. This was ?traversed. The wrrca-ks-rhyolzh limb??was ?characterized by healthy appearing mucosa. The ?jejunojejunal anastomosis was characterized by ?healthy appearing mucosa. The nvfqydex-jl-gugopyb ?limb was not examined as it could [...] 3:00 PM EDT [place] [address] Manoj Vinson MD [facility] [place] [address] Scheduled Orders Name Type Priority Associated Diagnoses [...] [facility], at108/30/2016 10:04 AM Tracia O'Mayuri CUSTOM STOCK MAKER IMG FLUORO ORDERABLE S documented in this encounter Visit Diagnoses Diagnosis Non-cardiac chest pain Other chest pain Non-cardiac chest pain Other chest pain documented in this encounter Care Teams Adhesive Bandage Making Operator Relationship Specialty Start Date End Date Yung Horn MD [address] [place] [address] PCP - General 11/22/16 documented as of this encounter
--- OUTSIDE RECORDS SUMMARY | 2024-03-03 13:34 | XMS_ITS | Encounter Summary ---
[place] [address] Care Team Providers Care Oil Seal Assembler Name Role Phone Yung Horn MD Primary Care Provider [phone] Encounter Details Date Type Department Care Team (Late st Contact Info) Description 05/25/2017 External Results [place] [phone] Yevgeniy Ramos MD [facility] [place] [address] Social History Tobacco Use Types Packs/Day Years [...] 3:00 PM EDT [place] [address] Manoj Vinson MD [facility] [place] [address] documented as of this encounter Procedures Procedure Name Priority Date/Time Associated Diagnosis Comments ECG SCAN Routine 05/25/2017 documented in this encounter Results * Scan Doc: ECG (05/25/2017) Yevgeniy Ramos MD MEDIA MGR SCAN EXT O RDR/RSLT documented in this encounter Visit Diagnoses Not on filedocumented in this encounter Care Teams Oil Seal Assembler Relationship Specialty Start Date End Date Yung Horn MD [address] [place] [address] PCP - General 11/22/16 documented as of this encounter
--- OUTSIDE RECORDS SUMMARY | 2024-03-03 13:34 | XMS_ITS | Encounter Summary ---
[place] [address] Care Team Providers Care Sales Representative Leather Goods Name Role Phone Yung Horn MD Primary Care Provider [phone] Encounter Details Date Type Department Care Team (Late st Contact Info) Description 05/25/2017 Telephone Cardiology at [address] [phone] Yevgeniy Ramos MD [facility] [place] [address] Social History Tobacco Use Types Packs/Day Years [...] PM Referring Provider: Dr. Siegel Patient Location: [facility] HPI per OSH: 61 y/o man [...] 3:00 PM EDT [place] [address] Manoj Vinson MD [facility] [place] [address] documented as of this encounter Visit Diagnoses Not on filedocumented in this encounter Care Teams Sales Representative Leather Goods Relationship Specialty Start Date End Date Yung Horn MD [address] [place] [address] PCP - General 11/22/16 documented as of this encounter
--- OUTSIDE RECORDS SUMMARY | 2024-03-03 13:34 | XMS_ITS | Encounter Summary ---
[place] [address] Care Team Providers Care Tube Cleaner Name Role Phone Yung Horn MD Primary Care Provider [phone] Reason for Visit * Auth/Cert Specialty Diagnoses / Procedures Referred By Contac t Referred To Contact Diagnoses nccp Procedures PRO UPPER GI ENDOSCOPY, DIAGNOSTIC EGD, UPPER GI ENDOSCOPY Referral ID Status Reason Start Date Expiration Date Visits Re quested Visits Authorized [id number] 1 1 Encounter Details Date Type Department Care Team (Latest Contact Info) Description 07/31/2017 10:00 AM EST Procedure visit Gastroenterology at [place] [phone] Non-cardiac chest pain Social History Tobacco Use [...] 3:00 PM EDT [place] [address] Manoj Vinson MD [facility] [place] [address] documented as of this encounter Visit Diagnoses Diagnosis Non-cardiac chest pain Other chest pain documented in this encounter Care Teams Tube Cleaner Relationship Specialty Start Date End Date Yung Horn MD [address] [place] [address] [place] [address] PCP - General 11/22/16 documented as of this encounter
--- OUTSIDE RECORDS SUMMARY | 2024-03-03 13:34 | XMS_ITS | Encounter Summary ---
Author Organization [facility] [place] [address] Care Team Providers Care Sewage Plant Supervisor Name Role Phone Yung Horn MD Primary Care Provider [phone] Reason for Visit * Auth/Cert Specialty Diagnoses / Procedures Referred By Contac t Referred To Contact Diagnoses nccp Procedures PRO UPPER GI ENDOSCOPY, DIAGNOSTIC EGD, UPPER GI ENDOSCOPY Referral ID Status Reason Start Date Expiration Date Visits Re quested Visits Authorized [id number] 1 1 Encounter Details Date Type Department Care Team (Latest Contact Info) Description 07/31/2017 10:40 AM EST - 07/31/2017 1:32 PM EST Hospital Encounter [place] [address] Chevy Mackenzie MD [facility] [place] [address] Discharge Disposition: Home Social History Tobacco Use [...] - 07/31/2017 12:45 PM EST Please call [phone] before 8pm Mon-Fri with problems, questions or concerns. If you call after 8pm or on weekends, call the Hospital at [phone] and ask to speak to the Networks Software Consultant senior consumer insights consultant and the bonding equipment operator will contact that person for you. Please call [phone] before 8pm Mon-Fri with problems, questions or concerns. If you call after 8pm or on weekends, call the Hospital at [phone] and ask to speak to the Networks Software Consultant senior consumer insights consultant and the bonding equipment operator will contact that person for you. [...] Other Instructions Be sure to carry your strap buckler machine within 3 feet at all times . [...] better as expected. Monday-Monday Same Day Endo [phone] Otherwise contact [phone] and ask to speak to the machine umbrella tipper senior consumer insights consultant Charline Aaron RN [phone] if any problems with strap buckler machine Follow-up care is a do part of [...] by: Chevy Mackenzie MD Department of Gastroenterology [facility] 07/31/2017 documented in this encounter Plan of Treatment Upcoming Encounters Date Type Department Care Team (Late st Contact Info) Description 03/13/2024 3:00 PM EDT [place] [address] Manoj Vinson MD [facility] [place] [address] documented as of this encounter Procedures Procedure Name Priority Date/Time Associated Diagnosis Comments EGD, UPPER GI ENDOSCOPY (WRVU 2.09) 07/31/2017 12:14 PM EST Non-cardiac chest pain UPPER GI ENDOSCOPY Routine 07/31/2017 12 :08 PM EST documented in this encounter Results * UPPER GI ENDOSCOPY (07/31/2017 12:08 PM EST) UPPER GI ENDOSCOPY [facility] Endoscopy Procedure Date: 07/31/2017 12:08 PM ? Patient Name: Yung Betancur ? Date of : 1955 ? Age: 61 ? Order #: [id number] ? Instrument Name: [id number] ? Procedure: ? Upper GI endoscopy Indications: ? Atypical chest pain, history of RYGB Providers: ? Chevy Mackenzie MD, Ermelinda Hanna, ? RN, Keyonna Ramirez, Coin Rolling Machine Operator Referring : ?Thalia Chapman MD Medicines: ? [...] the ? incisors). This was traversed. The hngul-hq-jzgombo ? limb was characterized by healthy appearing [...] RN) documented in this encounter Care Teams Sewage Plant Supervisor Relationship Specialty Start Date End Date Yung Horn MD [address] [place] [address] PCP - General 11/22/16 documented as of this encounter
--- OUTSIDE RECORDS SUMMARY | 2024-03-03 13:34 | XMS_ITS | Encounter Summary ---
Author Organization [facility] Address [facility] [place] [address] Care Team Providers Care Marketing Analytics Analyst Name Role Phone Yung Horn MD Primary Care Provider [phone] Encounter Details Date Type Department Care Team (Latest Contact Info) Description 04/10/2017 12:05 AM EDT - 04/10/2017 11:59 PM EDT Hospital Encounter [place] [address] Puneet Vines MD [facility] [place] [address] Discharge Disposition: Home Social History Tobacco Use [...] 3:00 PM EDT [place] [address] Manoj Vinson MD [facility] [place] [address] documented as of this encounter Procedures Procedure [...] Vines MD IMG FILM LIBRARY ORD ERABLES [place], [place] documented in this encounter Visit Diagnoses Not on filedocumented in this encounter Care Teams Marketing Analytics Analyst Relationship Specialty Start Date End Date Yung Horn MD [address] [place] [address] PCP - General 11/22/16 documented as of this encounter
--- OUTSIDE RECORDS SUMMARY | 2024-03-03 13:34 | XMS_ITS | Encounter Summary ---
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 [facility] Mean Platelet Volume 10.3 7.6 - 12.9 [facility] LABORATORY NRBC% auto 0.0 % [facility] NRBC Absolute 0.000 0.000 - 0.000 x10(3)/mc L [facility] Blood specimen (specimen) 05/26/2017 6:00 PM EST 05/26/2017 6:07 PM EST Narrative Resulting Agency Comment Spec In Lab Rei Vines MD HEMATOLOGY ORDERABLE S [facility] [place] [address] * (ABNORMAL) APTT (05/26/2017 6:00 PM EST) [facility] Partial Thromboplastin Time 43(H) 25 - 35 sec [facility] Comment: The recommended therapeutic range for full dose, unfractionated heparin at [facility] is 80 ? 114 seconds. The use of the anti-Xa (heparin) level rather than the PTT is recommended for monitoring anticoagulation intensity in critically ill patients receiving unfractionated heparin by continuous IV infusion. Blood specimen (specimen) 05/26/2017 6:00 PM EST 05/26/2017 6:07 PM EST Narrative Resulting Agency Comment Spec In Lab Rei Vines MD HEMATOLOGY ORDERABLE S Performing Organization Address City/[facility]/ZIP Co de Phone Number [facility] [place] [address] * (ABNORMAL) Cardiac Enzymes (LEB/CGP) (05/26/2017 6:00 PM EST) [facility] Troponin-T <0.01 0.00 - 0.00 ng/mL [facility] Comment: The 99th percentile for Troponin T is less than 0.01 ng/mL, any detectable cTnT concentration using this assay should be considered elevated. According to the third universal definition of myocardial infarction the following criteria with a clinical presentation consistent with acute myocardial ischemia meets the diagnosis for a myocardial infarction ([place]). Detection of a rise and/or fall of cTnT, with at least one value greater than the 99th percentile (> or = 0.01) and with at least one of the following ?? Symptoms of ischemia ?? New or presumed new significant SS-[id number]-Z wave (ST-T) changes or new left bundle [...] additional sample may be indicated. Reference: Third [place] Definition of Myocardial Infarction. Journal of the [place] College [employer] 2012;60:1581-98 Creatine Kinase 389(H) 0 - 200 unit/L [facility] Blood specimen (specimen) 05/26/2017 6:00 PM EST 05/26/2017 6:07 PM EST Narrative Resulting Agency Comment Spec In Lab Rei Vines MD CHEMISTRY ORDERABLES [facility] [place] [address] * POCT Glucose (05/26/2017 5:07 PM EST) [facility] Glucose, POC 143 65 - 199 mg/dL [facility] Comment: Supplemental ranges: <140 mg/dL before meals <180 mg/dL all other times of the day Blood specimen (specimen) 05/26/2017 5:07 PM EST 05/26/2017 5:07 PM EST Rei Vines MD POINT OF CARE TEST O RDERABLES Performing Organization Address City/[facility] Co de Phone Number [facility] [place] [address] * EKG 12 Lead (05/26/2017 4:14 PM EST) Ventricular rate 56 BPM MUSE SYSTEM Atrial Rate 56 BPM MUSE SYSTEM P-R Interval 162 ms MUSE SYSTEM QRS Duration 90 ms MUSE SYSTEM Q-T Interval 426 ms MUSE SYSTEM QTC Calculated (Bezet) 411 ms MUSE SYSTEM Calculated P Norton 58 degrees MUSE SYSTEM Calculated R Norton 12 degrees MUSE SYSTEM Calculated T Norton 27 degrees MUSE SYSTEM INTERPRETATION Sinus bradycardia Otherwise normal ECG No previous ECGs available Confirmed by MD EZ, REI ([id number]) on 05/27/2017 11:23:33 AM MUSE SYSTEM 05/26/2017 4:14 PM EST 05/27/2017 11:23 AM EST Rei Vines MD ECG ORDERABLES Performing Organization Address [facility] Co de Phone Number MUSE SYSTEM * SCAN DOC: 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 (05/26/2017 12:00 AM EST) Anatomical Region Laterality [...] - Reason: Transfer to a Procedural area)1733 ([facility] Unhold - Provider: Admin Adt) 0911 (Given - Provider: Antonina Ty RN) meTOPROLOL succinate (TOPROL-XL) XL tablet 25 mg 25 mg, Oral, DAILY, First dose on Mon05/26/17 at 1800, Until Discontinued, DO NOT CRUSH OR OPEN Hold for HR < 55 or SBP < 100, Routine 1802 (Given - Provider: Mavis French RN) 0842 (Given - Provider: Shakira Manzano RN)1505 ([facility] Hold - Provider: Admin Adt - Reason: Transfer to a Procedural area)1733 ([facility] Unhold - Provider: Admin Adt) 0911 (Given - Provider: Antonina Ty, MATEO) pantoprazole (PROTONIX) tablet 40 mg 40 mg, Oral, DAILY, First dose on Mon05/27/17 at 0900, Until Discontinued 0842 (Given - Provider: Shakira Manzano RN)1505 ([facility] Hold - Provider: Admin Adt - Reason: Transfer to a Procedural area)1733 ([facility] Unhold - Provider: Admin Adt) 0910 (Given - Provider: Antonina Ty, MATEO) PARoxetine (PAXIL) tablet 30 mg 30 mg, Oral, DAILY, First dose on 05/27/17 at 0900, Until Discontinued, Routine 0842 (Given - Provider: Shakira Manzano RN)1505 ([facility] Hold - Provider: Admin Adt - Reason: [...] vs UA) 1607 (New Bag - Provider: Maivs French RN - Comment: Continued from OSH)1810 (Rate/Dose Verify - Provider: Mavis French RN - Comment: Ok to keep gtt at 1250 from OSH per MD Ding)2243 (Rate/Dose Change - Provider: Amber lOsen RN)2300 (Stopped - Provider: Amber Olsen RN) [...] duration of the active insulin., Routine 1505 ([facility] Hold - Provider: Admin Adt - Reason: Transfer to a Procedural area)1733 ([facility] Unhold - Provider: Admin Adt) fentaNYL 50 [...] duration of the active insulin., Routine 1505 ([facility] Hold - Provider: Admin Adt - Reason: Transfer to a Procedural area)1733 ([facility] Unhold - Provider: Admin Adt) heparin (porcine) [...] Routine documented in this encounter Care Teams Tennis Coach Relationship Specialty Start Date End Date Yung Horn MD [address] [place] [address] PCP - General 11/22/16 documented as of this encounter
--- OUTSIDE RECORDS SUMMARY | 2024-03-03 13:34 | XMS_ITS | Encounter Summary ---
Author Organization [facility] [place] [address] Care Team Providers Care Heel Shaver Name Role Phone Yung Horn MD Primary Care Provider [phone] Reason for Visit * Auth/Cert Specialty Diagnoses / Procedures Referred By Contac t Referred To Contact Diagnoses nccp Procedures PRO UPPER GI ENDOSCOPY, DIAGNOSTIC EGD, UPPER GI ENDOSCOPY Referral ID Status Reason Start Date Expiration Date Visits Re quested Visits Authorized [id number] 1 1 Encounter Details Date Type Department Care Team (Late st Contact Info) Description 07/31/2017 1:00 PM EST - 07/31/2017 1:30 PM EST [place] [id number] Chevy Mackenzie MD [facility] [place] [address] EGD, UPPER GI ENDOSCOPY (WRVU 2.09) Social [...] - 07/31/2017 12:45 PM EST Please call [phone] before 8pm Mon-Fri with problems, questions or concerns. If you call after 8pm or on weekends, call the Hospital at [phone] and ask to speak to the Keypunch Operator area operations director and the hot car operator will contact that person for you. Please call [phone] before 8pm Mon-Fri with problems, questions or concerns. If you call after 8pm or on weekends, call the Hospital at [phone] and ask to speak to the Keypunch Operator area operations director and the hot car operator will contact that person for you. [...] Other Instructions Be sure to carry your digital printer within 3 feet at all times . [...] WHEN SHOULD YOU CALL FOR HELP? Call [phone] anytime you think that you need emergency [...] better as expected. Monday-Monday Same Day Endo [phone] 7a-8p Otherwise contact [phone] and ask to speak to the apparel fashion designer area operations director Charline Aaron RN [phone] if any problems with digital printer Follow-up care is a do part of [...] by: Chevy Mackenzie MD Department of Gastroenterology [facility] 07/31/2017 documented in this encounter Plan of Treatment Upcoming Encounters Date Type Department Care Team (Late st Contact Info) Description 03/13/2024 3:00 PM EDT [place] [address] Manoj Vinson MD [facility] [place] [address] documented as of this encounter Procedures Procedure Name Priority Date/Time Associated Diagnosis Comments EGD, UPPER GI ENDOSCOPY (WRVU 2.09) 07/31/2017 12:14 PM EST Non-cardiac chest pain UPPER GI ENDOSCOPY Routine 07/31/2017 12 :08 PM EST documented in this encounter Results * UPPER GI ENDOSCOPY (07/31/2017 12:08 PM EST) UPPER GI ENDOSCOPY [facility] Endoscopy Procedure Date: 07/31/2017 12:08 PM ? Patient Name: Yung Betancur ? Date of : 1955 ? Age: 61 ? Order #: [id number] ? Instrument Name: [id number] ? Procedure: ? Upper GI endoscopy Indications: ? Atypical chest pain, history of RYGB Providers: ? Chevy Mackenzie MD, Ermelinda Hanna, ? RN, Keyonna Ramirez, Dishtank Operator Referring : ?Thalia Chapman MD Medicines: [...] the ? incisors). This was traversed. The rmwol-so-gsuzgso ? limb was characterized by healthy appearing [...] RN) documented in this encounter Care Teams Heel Shaver Relationship Specialty Start Date End Date Yung Horn MD [facility] [address] [place] [address] PCP - General 11/22/16 documented as of this encounter
--- OUTSIDE RECORDS SUMMARY | 2024-03-03 13:34 | XMS_ITS | Encounter Summary ---
Author Organization [facility] [place] [address] Care Team Providers Care Chicken Sexer Name Role Phone Yung Horn MD Primary Care Provider [phone] Encounter Details Date Type Department Care Team (Late st Contact Info) Description 06/13/2017 Orders [place] [phone] Tyson Cramer PA [facility] [place] [address] Social History Tobacco Use Types Packs/Day Years [...] 3:00 PM EDT [place] [phone] Manoj Vinson MD [facility] [place] [address] documented as of this encounter Visit Diagnoses Not on filedocumented in this encounter Care Teams Chicken Sexer Relationship Specialty Start Date End Date Yung Horn MD [address] [place] [address] PCP - General 11/22/16 documented as of this encounter
--- OUTSIDE RECORDS SUMMARY | 2024-03-03 13:34 | XMS_ITS | Encounter Summary ---
Author Organization [facility] [place] [address] Care Team Providers Care Relocation Coordinator Name Role Phone Yung Horn MD Primary Care Provider [phone] Encounter Details Date Type Department Care Team (Latest Contact Info) Description 04/10/2017 - 04/10/2017 12:04 AM EDT Hospital Encounter [place] [address] Puneet Vines MD [facility] [place] [address] Discharge Disposition: Home Social History Tobacco Use [...] 3:00 PM EDT [place] [address] Manoj Vinson MD [facility] [address] documented as of this encounter Procedures Procedure [...] Vines MD IMG FILM LIBRARY ORD ERABLES [place], [place] documented in this encounter Visit Diagnoses Not on filedocumented in this encounter Care Teams Relocation Coordinator Relationship Specialty Start Date End Date Yung Horn MD [address] [place] [address] PCP - General 11/22/16 documented as of this encounter
--- OUTSIDE RECORDS SUMMARY | 2024-03-03 13:34 | XMS_ITS | Encounter Summary ---
Author Organization [facility] [place] [address] Care Team Providers Care Marker Assembler Name Role Phone Yung Horn MD Primary Care Provider [phone] Reason for Visit * Reason Comments Shortness of Breath Chest Pain Encounter Details Date Type Department Care Team (Late st Contact Info) Description 06/12/2017 1:44 PM EST - 06/12/2017 4:53 PM EST [place] [address] Lasha Lopez MD [facility] [place] [address] SOB (shortness of breath); Other chest pain; [...] irregular heartbeat. After you call 911, the microphone operator may tell you to chew 1 [...] Where can you learn more? Visit our [employer] information library at [email or web address]. You can also view health information on [employer], your personal patient account. Log in or sign uptoday. Enter S780 in the search box to learn more about Shortness of Breath: Care Instructions. Current as of: November 18, 2016 Content Version: 11.4 ?? [id number] [employer]. Care instructions adapted under license by [facility]. If you have questions about a medical condition or this instruction, always ask your healthcare professional. 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 [facility] Blood specimen (specimen) No Charge / Unknown 06/12/2017 2:00 PM EST 06/13/2017 7:29 AM EST Narrative Resulting Agency Comment Spec In Lab Roosevelt Maciel MD IMMUNOLOGY ORDERABLE S Performing Organization Address City/[facility]/ZIP Co de Phone Number [facility] [place] [address] * pro-Brain Natriuretic Peptide (06/12/2017 2:00 PM EST) Pathologist [facility] NT-proBNP 72 <=125 pg/mL [facility] Blood specimen (specimen) Venous Draw / Unknown 06/12/2017 2:00 PM EST 06/12/2017 2:17 PM EST Narrative Resulting Agency Comment Spec In Lab Flor Morgan MD CHEMISTRY ORDERABLE S Performing Organization Address City/[facility]/ZIP Co de Phone Number [facility] [place] [address] * (ABNORMAL) Lyme IgG & IgM Antibody (06/12/2017 2:00 PM EST) Lyme Antibody Pos(A) Neg [facility] Lyme Ab Comment Confirmation to follow. [facility] Blood specimen (specimen) No Charge / Unknown 06/12/2017 2:00 PM EST 06/13/2017 7:29 AM EST Narrative Resulting Agency Comment Spec In Lab Flor Morgan MD IMMUNOLOGY ORDERABL ES Performing Organization Address [facility] Phone Number [facility] [place] [address] * (ABNORMAL) D-Dimer, Quantitative (06/12/2017 2:00 PM EST) D-Dimer 829(H) 0 - 500 FEU ng/ml [facility] Comment: The D-Dimer assay [...] MD HEMATOLOGY ORDERABL ES Performing Organization Address [facility] Phone Number [facility] [place] [address] * Gold Tube HOLD (06/12/2017 2:00 PM EST) Pathologist [facility] Gold Hold Sample in lab. [facility] Blood specimen (specimen) No Charge / Unknown 06/12/2017 2:00 PM EST 06/12/2017 2:10 PM EST Flor Morgan MD CHEMISTRY ORDERABLE S Performing Organization Address [facility] Co de Phone Number [facility] [place] [address] * (ABNORMAL) Differential, Automated (06/12/2017 2:00 PM EST) Pathologist [facility] Neutrophil % 87.0 % [facility] Neutrophil Absolute 6.11(H) 1.70 - 6.10 x10(3)/[facility] Lymph % 5.7 % [facility] Lymphocytes Abs 0.4(L) 0.9 - 3.2 x10(3)/[facility] Monocyte % 4.6 % [facility] Monocyte Abs 0.3 0.3 - 0.9 x10(3)/[facility] Eos % 2.3 % [facility] Eosinophils Abs 0.2 0.0 - 0.4 x10(3)/[facility] Basophil % 0.1 % [facility] Baso Absolute 0.0 0.0 - 0.1 x10(3)/[facility] Immature Gran % 0.30 % [facility] Comment: Immature granulocytes(IG's)percentage and absolute count will include metamyelocytes, myelocytes, and promyelocytes. Blood smears from CBCs yielding IG's will be scanned manually for concordance. If this scan disagrees with the automated IG or if promyelocytes are noted, a manual differential will be performed. Immature Gran Absolute 0.02 0.00 - 0.04 x10(3)/[facility] Blood specimen (specimen) 06/12/2017 2:00 PM EST 06/12/2017 2:09 PM EST Narrative Resulting Agency Comment Spec In Lab Flor Morgan MD HEMATOLOGY ORDERABL ES [facility] [place] [address] * (ABNORMAL) Hemogram (06/12/2017 2:00 PM EST) Pathologist [facility] White Blood Cell 7.0 4.0 - 9.5 x10(3)/[facility] Red Blood Cell 4.94 4.58 - 5.54 x10(6)/mc L [facility] Hemoglobin 12.9(L) 13.7 - 16.5 gm/dL [facility] Hematocrit 39.6(L) 40.5 - 48.5 % [facility] Mean Cell Volume 80.2(L) 82.9 - 93.1 fL [facility] Mean Cell Hemoglobin 26.1(L) 27.5 - 32.1 pg [facility] Mean Cell Hemoglobin Concentration 32.6 32.0 - 35.7 gm/dL [facility] Platelet 176 145 - 357 x10(3)/mc L [facility] RDW Standard Deviation 40.3 36.0 - 45.0 fL [facility] RDW coefficient of variation 13.8 11.4 - 13.8 % [facility] Mean Platelet Volume 10.4 7.6 - 12.9 fL [facility] NRBC% auto 0.0 % [facility] NRBC Absolute 0.000 0.000 - 0.000 x10(3)/mc L [facility] Blood specimen (specimen) 06/12/2017 2:00 PM EST 06/12/2017 2:09 PM EST Narrative Resulting Agency Comment Spec In Lab Flor Morgan MD HEMATOLOGY ORDERABL ES [facility] [place] [address] * (ABNORMAL) Basic Metabolic Panel (non-fasting) (06/12/2017 2:00 PM EST) Glucose 111 65 - 199 mg/dL [facility] Comment:Diabetes: >=200 mg/d L plus symptoms Blood Urea Nitrogen 23(H) 10 - 20 mg/dL [facility] Creatinine 1.06 0.80 - 1.50 mg/dL [facility] Sodium 140 135 - 145 mmol/L [facility] Potassium 5.1(H) 3.5 - 5.0 mmol/L [facility] [...] mmol/L [facility] Anion Gap 14 5 - 15 mmol/L [facility] Calcium 8.7 8.5 - 10.5 mg/dL [facility] Est Glomerular Filtration Rate >60 >=60 [facility] Comment: The reported eGFR should be multiplied by 1.2 for patients. The MDRD is not an appropriate measure of renal function for patients with body mass extremes or in patients with acute kidney failure. http://Xcedex/DHnkdep http://Xcedex/DHMCnkf Blood specimen (specimen) 06/12/2017 2:00 PM EST 06/12/2017 2:09 PM EST Narrative Resulting Agency Comment Spec In Lab Flor Morgan MD CHEMISTRY ORDERABLE S [facility] [place] [address] * Troponin T (06/12/2017 2:00 PM EST) Troponin-T <0.01 0.00 - 0.00 ng/mL [facility] Comment: The 99th percentile for Troponin T is less than 0.01 ng/mL, any detectable cTnT concentration using this assay should be considered elevated. According to the third universal definition of myocardial infarction the following criteria with a clinical presentation consistent with acute myocardial ischemia meets the diagnosis for a myocardial infarction (OR). Detection of a rise and/or fall of cTnT, with at least one value greater than the 99th percentile (> or = 0.01) and with at least one of the following ?? Symptoms of ischemia ?? New or presumed new significant SZ-mrwyexu-[id number] wave (ST-T) changes or new left bundle [...] additional sample may be indicated. Reference: Third [place] Definition of Myocardial Infarction. Journal of the [place] [employer] 2012;60:1581-98 Blood specimen (specimen) 06/12/2017 2:00 PM EST 06/12/2017 2:09 PM EST Narrative Resulting Agency Comment Spec In Lab Flor Morgan MD CHEMISTRY ORDERABLE S Performing Organization Address [facility] Co de Phone Number [facility] [place] [address] * Blue Tube HOLD (06/12/2017 2:00 PM EST) Blue Hold Sample in lab. [facility] Blood specimen (specimen) 06/12/2017 2:00 PM EST 06/12/2017 2:09 PM EST Flor Morgan MD HEMATOLOGY ORDERABL ES Performing Organization Address [facility] Co de Phone Number [facility] [place] [address] * EKG 12 Lead (06/12/2017 1:45 PM EST) Ventricular rate 79 BPM MUSE SYSTEM Atrial Rate 79 BPM MUSE SYSTEM P-R Interval 162 ms MUSE SYSTEM QRS Duration 86 ms MUSE SYSTEM Q-T Interval 364 ms MUSE SYSTEM QTC Calculated (Bezet) 417 ms MUSE SYSTEM Calculated P [place] 45 degrees MUSE SYSTEM Calculated R [place] 1 degrees MUSE SYSTEM Calculated T [place] 33 degrees MUSE SYSTEM INTERPRETATION Normal sinus rhythm Normal ECG When compared with ECG of 27-MAY-2017 11:57, Vent. rate has increased BY ??31 BPM Confirmed by MD Sowmya, Scotty Goetz ([id number]) on 06/13/2017 9:06:01 AM MUSE SYSTEM 06/12/2017 1:45 PM EST 06/13/2017 9:06 AM EST Flor Morgan MD ECG ORDERABLES [employer] SYSTEM documented in this encounter Visit Diagnoses Diagnosis SOB (shortness of breath) Shortness of breath Other chest pain Gastroesophageal reflux disease, esophagitis presence not specified Diabetes mellitus without complication Type II or unspecified type diabetes mellitus without mention of complication, not stated as uncontrolled Bariatric surgery status Postsurgical percutaneous transluminal coronary angioplasty status documented in this encounter Care Teams Marker Assembler Relationship Specialty Start Date End Date Yung Horn MD [address] [place] [address] PCP - General 11/22/16 documented as of this encounter
--- OUTSIDE RECORDS SUMMARY | 2024-03-03 13:34 | XMS_ITS | Encounter Summary ---
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 0.000 0.000 - 0.000 x10(3)/[facility] Blood specimen (specimen) 05/26/2017 6:00 PM EST 05/26/2017 6:07 PM EST Narrative Resulting Agency Comment Spec In Lab Rei Vines MD HEMATOLOGY ORDERABLE S Performing Organization Address City/[facility]/ZIP Co de Phone Number [facility] [place] [address] * (ABNORMAL) APTT (05/26/2017 6:00 PM EST) Partial Thromboplastin Time 43(H) 25 - 35 sec [facility] Comment: The recommended therapeutic range for full dose, unfractionated heparin at [facility] is 80 ? 114 [...] ORDERABLE S Performing Organization Address [facility]/ZIP Co de Phone Number [facility] [place] [address] * (ABNORMAL) Cardiac Enzymes (LEB/CGP) (05/26/2017 6:00 PM EST) [facility] Troponin-T <0.01 0.00 - 0.00 ng/mL [facility] Comment: The 99th percentile for Troponin T is less than 0.01 ng/mL, any detectable cTnT concentration using this assay should be considered elevated. According to the third universal definition of myocardial infarction the following criteria with a clinical presentation consistent with acute myocardial ischemia meets the diagnosis for a myocardial infarction (NH). Detection of a rise and/or fall of cTnT, with at least one value greater than the 99th percentile (> or = 0.01) and with at least one of the following ?? Symptoms of ischemia ?? New or presumed new significant OP-[id number] wave (ST-T) changes or new left bundle [...] additional sample may be indicated. Reference: Third [place] Definition of Myocardial Infarction. Journal of the [place] [employer] 2012;60:1581-98 Creatine Kinase 389(H) 0 - 200 unit/L [facility] Blood specimen (specimen) 05/26/2017 6:00 PM EST 05/26/2017 6:07 PM EST Narrative Resulting Agency Comment Spec In Lab Rei Vines MD CHEMISTRY ORDERABLES Performing Organization Address [facility]/ZIP Co de Phone Number [facility] [place] [address] * POCT Glucose (05/26/2017 5:07 PM EST) [facility] Glucose, POC 143 65 - 199 mg/dL [facility] Comment: Supplemental ranges: <140 mg/dL before meals <180 mg/dL all other times of the day Blood specimen (specimen) 05/26/2017 5:07 PM EST 05/26/2017 5:07 PM EST Rei Vines MD POINT OF CARE TEST O RDERABLES Performing Organization Address [facility] Co de Phone Number [facility] [place] [address] * EKG 12 Lead (05/26/2017 4:14 PM EST) Ventricular rate 56 BPM MUSE SYSTEM Atrial Rate 56 BPM MUSE SYSTEM P-R Interval 162 ms MUSE SYSTEM QRS Duration 90 ms MUSE SYSTEM Q-T Interval 426 ms MUSE SYSTEM QTC Calculated (Bezet) 411 ms MUSE SYSTEM Calculated P [place] 58 degrees MUSE SYSTEM Calculated R [place] 12 degrees MUSE SYSTEM Calculated T [place] 27 degrees MUSE SYSTEM INTERPRETATION Sinus bradycardia Otherwise normal ECG No previous ECGs available Confirmed by MD EZ, REI ([id number]) on 05/27/2017 11:23:33 AM MUSE SYSTEM 05/26/2017 4:14 PM EST 05/27/2017 11:23 AM EST Rei Vines MD ECG ORDERABLES MUSE SYSTEM * SCAN DOC: OUTBOARD MOTORBOAT RIGGER (05/26/2017 12:00 AM EST) Anatomical Region Laterality [...] area)1700 (Automatically Held - Provider: Admin Adt)1733 ([facility] Unhold - Provider: Admin Adt) [...] 0842 (Given - Provider: Shakira Manzano RN)1505 ([facility] Hold - Provider: Admin Adt - Reason: Transfer to a Procedural area)1733 ([facility] Unhold - Provider: Admin Adt) 0911 (Given - Provider: Antonina Ty RN) pantoprazole (PROTONIX) tablet 40 mg 40 mg, Oral, DAILY, First dose on 05/27/17 at 0900, Until Discontinued 0842 (Given - Provider: Shakira Manzano RN)1505 ([facility] Hold - Provider: Admin Adt - Reason: Transfer to a Procedural area)1733 ([facility] Unhold - Provider: Admin Adt) 0910 (Given - Provider: Antonina Ty RN) PARoxetine (PAXIL) tablet 30 mg 30 mg, Oral, DAILY, First dose on 05/27/17 at 0900, Until Discontinued, Routine 0842 (Given - Provider: Shakira Manzano RN)1505 ([facility] Hold - Provider: Admin Adt - Reason: Transfer to a Procedural area)1733 ([facility] Unhold - Provider: Admin Adt) 0950 (Given - Provider: Antonina Ty RN) sodium chloride 0.9 % flush 5 mL 5 mL, Intravenous, 2 TIMES DAILY, First dose on Mon05/26/17 at 2100, Until Discontinued, Routine 2037 (Given - Provider: Amber Olsen RN) 0848 (Given - Provider: Shakira Manzano RN)1505 ([facility] Hold - Provider: Admin Adt - Reason: Transfer to a Procedural area)1733 ([facility] Unhold - Provider: Admin Adt)2047 [...] for discomfort with PIV insertion, Routine 1505 ([facility] Hold - Provider: Admin Adt - Reason: Transfer to a Procedural area)1733 ([facility] Unhold - Provider: Admin Adt) [...] last 24 to 72 hours., Routine 1505 ([facility] Hold - Provider: Admin Adt - Reason: Transfer to a Procedural area)1733 ([facility] Unhold - Provider: Admin Adt) [...] Routine documented in this encounter Care Teams Applications Engineering Manager Relationship Specialty Start Date End Date Yung Horn MD [address] [place] [address] PCP - General 11/22/16 documented as of this encounter
--- OUTSIDE RECORDS SUMMARY | 2024-03-03 13:34 | XMS_ITS | Encounter Summary ---
Author Organization [facility] Address [facility] [place] [address] Care Team Providers Care Cardiothoracic Anesthesia Technician Name Role Phone Yung Horn MD Primary Care Provider [phone] Encounter Details Date Type Department Care Team (Late st Contact Info) Description 04/10/2017 [place] [id number] Donato Hua MD [facility] [place] [address] Social History Tobacco Use Types Packs/Day Years [...] workup his elevated d-dimer. Donato Hua MD News Producer Pager # [phone] documented in this encounter Plan of Treatment Upcoming Encounters Date Type Department Care Team (Late st Contact Info) Description 03/13/2024 3:00 PM EDT [place] [address] Manoj Vinson MD [facility] [place] [address] documented as of this encounter Visit Diagnoses Not on filedocumented in this encounter Care Teams Cardiothoracic Anesthesia Technician Relationship Specialty Start Date End Date Yung Horn MD [address] [place] [address] PCP - General 11/22/16 documented as of this encounter
--- OUTSIDE RECORDS SUMMARY | 2024-03-03 13:35 | XMS_ITS | Encounter Summary ---
Author Organization [facility] Address [address] [place] [address] Care Team Providers Care Carpet Or Rug Layer Helper Name Role Phone Yung Horn MD Primary Care Provider [phone] Encounter Details Date Type Department Care Team (Late st Contact Info) Description 01/26/2018 Orders Only [facility] Hand & Upper Extremity Program - [address] [address] Roosevelt Miller MD MSc [facility] [address] [place] [address] Right knee pain, unspecified chronicity [...] Primary documented in this encounter Care Teams Carpet Or Rug Layer Helper Relationship Specialty Start Date End Date Yung Horn MD [address] [place] [address] PCP - General 01/26/18 documented as of this encounter
--- OUTSIDE RECORDS SUMMARY | 2024-03-03 13:35 | XMS_ITS | Encounter Summary ---
Author Organization [facility] Address [address] [place] [address] Care Team Providers Care Network Account Manager Name Role Phone Yung Horn MD Primary Care Provider [phone] Reason for Visit * (Routine/Next Available) - Receiving Office to Obtain Authorization Specialty Diagnoses / Procedures Referred By Marisela ramesh Referred To Contact Procedures CT OUTSIDE IMAGES BODY Imaging, External Referral ID Status Reason Start Date Expiration Date Visits Requested Visits Authorized [id number] Receiving Office to Obtain Authorization 2 1 1 Encounter Details Date Type Department Care Team (Latest Contact Info) Description 04/20/2022 Hospital Encounter [facility] Secondary Reads [place] Discharge Disposition: [...] on filedocumented in this encounter Care Teams Network Account Manager Relationship Specialty Start Date End Date Yung Horn [place] [place] [address] PCP - General 01/26/18 documented as of this encounter
--- OUTSIDE RECORDS SUMMARY | 2024-03-03 13:35 | XMS_ITS | Encounter Summary ---
Author Organization [facility] Address [address] [place] [address] Care Team Providers Care Conveyor System Operator Name Role Phone Yung Horn MD Primary Care Provider [phone] Encounter Details Date Type Department Care Team (Late st Contact Info) Description 01/10/2022 Lab Requisition [facility] Pathology & Laboratory Medicine - [address] [address] Outr Resulting Lab, Provider Social History Tobacco [...] Outr Resulting Lab MICROBIOLOGY - GENERAL ORDERABLES [facility] [address] [place] [address] * COVID-19 TESTING (01/10/2022 11:19 EDT) COVID-19 rt-PCR Result Negative Negative 01/12/2022 11:10 EDT [facility] Comment: This test has not [...] performed using the thony SARS-CoV-2 assay ([employer] on the Thony 6800 System Performing Lab Thony [address] [facility] Lab 01/12/2022 11:10 EDT [facility] Swab 01/10/2022 11:1 9 EDT 01/11/2022 16:29 EDT Provider Outr Resulting Lab MICROBIOLOGY - GENERAL ORDERABLES [facility] [address] [place] [address] documented in this encounter Visit Diagnoses Not on filedocumented in this encounter Care Teams Conveyor System Operator Relationship Specialty Start Date End Date Yung Horn MD [facility] [place] [address] PCP - General 01/26/18 documented as of this encounter
--- OUTSIDE RECORDS SUMMARY | 2024-03-03 13:35 | XMS_ITS | Encounter Summary ---
Author Organization [facility] Address [address] [place] [address] Care Team Providers Care Turf Sales Person Name Role Phone Yung Horn MD Primary Care Provider [phone] Reason for Visit * (Routine/Next Available) - Receiving Office to Obtain Authorization Specialty Diagnoses / Procedures Referred By Marisela ramesh Referred To Contact Procedures XR OUTSIDE IMAGES MSK Imaging, External Referral ID Status Reason Start Date Expiration Date Visits Requested Visits Authorized [id number] Receiving Office to Obtain Authorization 2 1 1 Encounter Details Date Type Department Care Team (Latest Contact Info) Description 04/20/2022 0:10 EDT - 04/20/2022 0:14 EDT Hospital Encounter [facility] Secondary Reads [place] Discharge Disposition: [...] on filedocumented in this encounter Care Teams Turf Sales Person Relationship Specialty Start Date End Date Yung Horn MD [address] [place] [address] PCP - General 01/26/18 documented as of this encounter
--- OUTSIDE RECORDS SUMMARY | 2024-03-03 13:35 | XMS_ITS | Encounter Summary ---
Author Organization [facility] Address [address] [place] [address] Care Team Providers Care Electronics Tester Name Role Phone Unknown, Provider Primary Care Provider [phone] Reason for Visit * Reason Onset Date Comments Appointment Related 01/25/2018 Encounter Details Date Type Department Care Team (Late st Contact Info) Description 01/25/2018 Telephone [facility] Total Joint Program - [address] [address] Roosevelt Miller MD MSc FR[facility]SC [address] [place] [address] Appointment Related Social History Tobacco [...] on filedocumented in this encounter Care Teams Electronics Tester Relationship Specialty Start Date End Date Unknown, ProviderMD PCP - General 11/16/17 01/25/18 documented as of this encounter
--- OUTSIDE RECORDS SUMMARY | 2024-03-03 13:35 | XMS_ITS | Encounter Summary ---
[facility] [place] [address] Care Team Providers Care Storeperson Name Role Phone Boston Hernandez MD Primary Care Provider [phone] Reason for Visit * Auth/Cert Specialty Diagnoses / Procedures Referred By Contac t Referred To Contact Diagnoses ED/PEYRONIE'S Procedures PRO INSERT, INFLATABLE PENILE PROSTHESIS PENILE PROSTHESIS, MULTI-COMPONENT Referral ID Status Reason Start Date Expiration Date Visits Re quested Visits Authorized [id number] 1 1 Encounter Details Date Type Department Care Team (Latest Contact Info) Description 06/09/2015 12:11 PM EST - 06/10/2015 1:52 PM [facility] Hospital Encounter [place] [address] Ebenezer Patino III, MD [facility] [place] [address] Peyronie's disease Discharge Disposition: Home Social History [...] Yung Betancur Patient Age: 59 y.o. Language: Latvian Race: White Ethnicity: Not nor Admit date: [...] in the midshaft of the penis. Assessment: Bcqrg-hmnqh-icdo-old gentleman with ED that is likely secondary [...] Hospital Course: Patient was admitted electively to [facility] via the same day surgery program and [...] If you need to brace yourself to quill picking machine operator an object - it is too [...] more degrees The number for questions is [phone] before 5 PM weekdays and [phone] after 5 PM and weekends. FOLLOW-UP Follow-up appointment will be scheduled with Dr. Pelaez in 2 weeks for a wound check. Appointment will be mailed to you. Please call [phone] (clinic number for appointments) to confirm date and time of your appointment if you do not receive your apointment in 2-3 days. Future Appointments Date Time Provider Department Center 06/24/2015 1:40 PM Ebenezer Patino III, MD [facility] [place] [facility] General Instructions None Future Appointments and Orders Future Appointments Provider Department Dept Phone 06/24/2015 1:40 PM Ebenezer Patino III, MD Urology [phone] Future Orders Complete By Expires Referral to Home Health - at DISCHARGE [[id number] CPT(R)] As directed Process Instructions: Scheduling Instructions: Comments: DOCUMENTATION FOR VNA SERVICES (INCLUDING THOSE PATIENTS WITH MEDICARE COVERAGE REQUIRING HOME VNA SERVICES AND/OR HOSPICE SERVICES) PATIENT'S LOCATION: [facility] [phone] (home) Cell: No relevant phone numbers on file. Cracker Off's Name: Tahmina- Spouse In discussion with the attending physician, it is certified that this patient is under their care and that they, or a Nurse Practitioner,Clinical Nurse specialist or Physician Title I Assistant who is working directly with them, [...] re health issues HOME HEALTH CARE AGENCY: [facility] PHONE: [phone] FAX: [phone] Start of care: Day after Discharge Please note that any additional orders needs or changes will need to be obtained from this patient's PCP: BOSTON HERNANDEZ MD [facility] [address] / [place] [address] All VNA agencies which cover the area of patient's residence have been reviewed, either verbally symone writing, and patient/family have chosen the home health care agency noted Questions: Agency name and contact information: [facility] Patient location post discharge: Home What services are requested: Registered Nurse Start date: Responsible MD post discharge contact info: PCP Follow-Up: Future Appointments Date Time Provider Department Center 06/24/2015 1:40 PM Ebenezer Patino III, MD [facility] Primary Care Provider: BOSTON HERNANDEZ MD [phone] Follow-up Recommendations for Providers: Please see discharge [...] was managed by the Urology Team at [facility]. If you have any questions or concerns, please feel free to contact us. Provider Contact Information: Urology Clinic: [facility] (after business hours): documented in this encounter [...] If you need to brace yourself to quill picking machine operator an object - it is too [...] more degrees The number for questions is [phone] before 5 PM weekdays and [phone] after 5 PM and weekends. FOLLOW-UP Follow-up appointment will be scheduled with Dr. Pelaez in 2 weeks for a wound check. Appointment will be mailed to you. Please call [phone] (clinic number for appointments) to confirm date and time of your appointment if you do not receive your apointment in 2-3 days. Future Appointments Date Time Provider Department Center 06/24/2015 1:40 PM Ebenezer Patino III, MD [facility] documented in this encounter Medications at [...] EST Office of Care Management (OCM) / Brattice Builder(CM)/ Initial Assessment Discussed patient with Provider Team [...] ADVANCE DIRECTIVES: Not on file HEALTH /PRESCRIPTION COVERAGE:[facility] CURRENT HOME/COMMUNITY SERVICES/EQUIPMENT: None but will place VNA referral DME: Home Health Agency: [facility]. PHONE: [phone] FAX: [phone] Other: VEHICLE CARE SPECIALIST REFERRAL: not needed at this time PRIMARY CARE PHYSICIAN: BOSTON HERNANDEZ MD [facility] [address] / [facility] [address] POTENTIAL DISCHARGE NEEDS: VNA referral and prescriptions. [...] identified Problem: Coping, Compromised Family (Adult, NICU, [place], Obstetrics, Pediatric) Goal: Identify Signs and Symptoms [...] Derick Bravo - 06/09/2015 6:30 PM EST [facility] Operative Note Patient Name: Yung Betancur : [id number] MR#: [id number] Case Date: 06/09/2015 Surgeon: Surgeon(s) and Role: [...] had received preoperative antibiotics (Vancomycin/gentamicin). A 16- Polish Richardson catheter was placed and the Lonestar [...] 06/12/2015 * Brief Op Note - Derick rBavo - 06/09/2015 6:28 PM EST Brief Operative Note Patient Name: Yung Betancur : [id number] MR#: [id number] Case Date: 06/09/2015 Surgeon: Surgeon(s) and Role: [...] 3:00 PM EDT [place] [address] Manoj Vinson MD [place] [address] documented as of this encounter Procedures Procedure Name Priority Date/Time Associated Diagnosis Comments IMPLANTABLE DEVICES SCAN 06/11/2015 12:00 AM EST MANAGER ADOBE SCAN 06/11/2015 12:00 AM EST POCT GLUCOSE [...] SCAN EXT O RDR/RSLT * SCAN DOC: MANAGER ADOBE (06/11/2015 12:00 AM EST) Anatomical Region Laterality Modality Other Scanning Provider MEDIA MGR SCAN EXT O RDR/RSLT * (ABNORMAL) POCT Glucose (06/10/2015 11:25 AM EST) [facility] Signature Glucose, POC 280(H) 65 - [...] MD POINT OF CARE AGUSTÍN T ORDERABLES [facility] * Basic Metabolic Panel (non-fasting) (06/09/2015 1:50 PM EST) Glucose 140 65 - 199 mg/dL [facility] MILLENNIUM Comment:Diabetes: >=200 mg/d L plus symptoms Blood Urea Nitrogen 19 10 - 20 mg/dL [facility] Creatinine 1.07 0.80 - 1.50 mg/dL [facility] Comment: Please note that the pediatric reference intervals supplied above were not validated at [facility]. Results from pediatric patients should be interpreted [...] the following links into your internet browser. [email or web address] Blood specimen (specimen) 06/09/2015 1:50 PM EST 06/09/2015 1:59 PM EST Narrative Resulting Agency Comment Spec In Lab Arabella Hatch MD CHEMISTRY ORDERABLES Performing Organization Address [facility] Co de Phone Number [facility] Verious * POCT Glucose (06/09/2015 12:38 PM EST) Glucose, POC 146 65 - 199 mg/dL [email or web address] Comment: Supplemental ranges: <140 mg/dL before meals <180 mg/dL all other times of the day Blood specimen (specimen) 06/09/2015 12:38 PM EST 06/09/2015 12:38 PM EST Ebenezer Patino III, MD POINT OF CARE AGUSTÍN T ORDERABLES Performing Organization Address [facility] Co de Phone Number LU[facility] ANTONIO [facility] documented in this encounter Visit [...] Routine documented in this encounter Care Teams Storeperson Relationship Specialty Start Date End Date Boston Hernandez MD [facility] [address] [place] [address] PCP - General General Internal Medicine 05/27/1511/07 documented as of this encounter
--- OUTSIDE RECORDS SUMMARY | 2024-03-03 13:35 | XMS_ITS | Encounter Summary ---
Author Organization [facility] Address [address] [place] [address] Care Team Providers Care Membership Correspondent Name Role Phone Yung Honr MD Primary Care Provider [phone] Reason for Visit * (Routine/Next Available) - Receiving Office to Obtain Authorization Specialty Diagnoses / Procedures Referred By Marisela ramesh Referred To Contact Procedures XR OUTSIDE IMAGES MSK Imaging, External Referral ID Status Reason Start Date Expiration Date Visits Requested Visits Authorized [id number] Receiving Office to Obtain Authorization 2 1 1 Encounter Details Date Type Department Care Team (Latest Contact Info) Description 04/20/2022 Hospital Encounter [facility] Center Secondary Reads [place] Discharge [...] on filedocumented in this encounter Care Teams Membership Correspondent Relationship Specialty Start Date End Date Yung Horn [place] [place] [address] PCP - General 01/26/18 documented as of this encounter
--- OUTSIDE RECORDS SUMMARY | 2024-03-03 13:35 | XMS_ITS | Encounter Summary ---
Author Organization [facility] Address [address] [place] [address] Care Team Providers Care Industrial Engineering Manager Name Role Phone Yung Horn MD Primary Care Provider [phone] Encounter Details Date Type Department Care Team (Late st Contact Info) Description 07/03/2020 Lab Requisition [facility] Pathology & Laboratory Medicine - [address] [id number] Outr Resulting Lab, Provider Social History Tobacco [...] Lyme Ab Negative Negative 07/06/2020 9:53 EST [facility] Comment:New 3rd generation a ssay in use 12/18/2019 Blood VENOUS BLOOD / Unknown 07/03/2020 12:38 EST 07/04/2020 17:28 EST Provider Outr Resulting Lab IMMUNOLOGY A ND SEROLOGY ORDERABLES [facility] [address] [place] [address] documented in this encounter Visit Diagnoses Not on filedocumented in this encounter Care Teams Industrial Engineering Manager Relationship Specialty Start Date End Date Yung Horn MD [facility] [place] [address] PCP - General 01/26/18 documented as of this encounter
--- OUTSIDE RECORDS SUMMARY | 2024-03-03 13:35 | XMS_ITS | Continuity of Care Document ---
Author Organization [place] - [facility] Address [address] [place] [address] Care Team Providers Care Filter Press Tender Head Name Role Phone [facility] Box Bender SANJUANA JESSICA Urologist Assessment No assessment recorded. Plan of Treatment Reminders Order Date Submit Date Provider Last Modified By Organization Details Last Modified Time Details Appointments Follow Up 30 2023 09:30A M Not available Not available Not available Lab magnesium , serum or plasma [address] [facility] (Registration ), [address] [place] [address] [place], [address], 02/29/2024 08:01:19 culture, wound - 1 Swab [address] [facility] (Registration ), [address] [place] [address] [place], [address], 02/29/2024 08:01:19 CBC - 1 SST, 1 LAV 2023 024 [facility] (Registration ), [address] [place] [address] [place], [address], 02/21/2024 16:06:49 CMP, serum or plasma 2023 024 [facility] (Registration ), [address] [place] [address] [place], [address], 02/21/2024 17:28:06 C-reactiv e protein, quantitat neida, serum or plasma [address] [facility] (Registration ), [address] [place] [address] , [place], [address], 02/29/2024 08:01:19 ESR (erythroc yte sedimenta tion rate), blood [address] [facility] (Registration ), [address] [place] [address] , [place], [address], 02/29/2024 08:01:19 urinalysi s, dipstick [address], [address], [place], [address], 02/21/2024 12:45:19 hemoglobi n A1C, fingersti ck [address], [address], [place], [address], 02/21/2024 12:45:19 albumin/c reatinine , ratio, urine - 1 Urine [address] [facility] (Registration ), [address] [place] [address] , [place], [address], 02/29/2024 08:01:18 Referral None recorded. Procedures None recorded. Surgeries None recorded. Imaging None recorded. Medication Orders sulfameth oxazole 800 mg-trimet hoprim 160 mg tablet 2023 [place] [id number], [address] [facility] [place], [id number], 02/21/2024 19:33:42 glipizide ER 5 mg tablet, extended release 24 hr [address] [id number], [address] [facility], [facility], [place], [place], [id number], 02/21/2024 20:05:35 Patient TargetsNo targets recorded. Patient Instructions Encounter Date Encounter Id Patient Instructions Last Modified By Organization Details Last Modified Time 02/21/2024 [id number] -Start Metformin ER, 1000 MG in morning and 500 MG at night. If tolerated w/out diarrhea, do 1,000 mg BID. - Go up to 1.2 mg of Victoza tomorrow - Start Glipizide ER 5 mg for one week then increase to 10 mg. Not available 02/21/2024 09:04:54 Reason for Referral None Reported. Results Created Date Observation Date Name Description Value Unit Range Abnormal Flag LastModifiedBy Organization Detail LastModifiedTime 02/21/2002/21/2024 urina lysis , dipst ick Leukocytes Negati ve Not Available [facility] [address], [place], [address], 02/21/2024 08:54:52 02/21/20 24 02/21/2024 urina lysis , dipst ick Nitrite negati ve Not Available [facility] [address], [place], [address], 02/21/2024 08:54:52 02/21/20 24 02/21/2024 urina lysis , dipst ick Urobilinogen .2 Not Available [facility] [address], [place], [address], 02/21/2024 08:54:52 02/21/2002/21/2024 urina lysis , dipst ick Protein Trace Not Available [facility] [address], [place], [address], 02/21/2024 08:54:52 02/21/20 24 02/21/2024 urina lysis , dipst ick pH 5.0 Not Available [facility] [address], [place], [address], 02/21/2024 08:54:52 02/21/20 24 02/21/2024 urina lysis , dipst ick Blood Negati ve Not Available [facility] [address], [place], [address], 02/21/2024 08:54:52 02/21/20 24 02/21/2024 urina lysis , dipst ick Specific [place] 1.015 Not Available [facility] [address], [place], [address], 02/21/2024 08:54:52 02/21/2002/21/2024 urina lysis , dipst ick Ketone Small Not Available [facility] [address], [place], [address], 02/21/2024 08:54:52 02/21/2002/21/2024 urina lysis , dipst ick Bilirubin Negati ve Not Available [facility] [address], [place], [address], 02/21/2024 08:54:52 02/21/20 24 02/21/2024 urina lysis , dipst ick Glucose 500 Not Available [facility] [address], [place], [address], 02/21/2024 08:54:52 02/21/2002/21/2024 urina lysis , dipst ick Appearance Clear Not Available [facility] [address], [place], [address], 02/21/2024 08:54:52 02/21/2002/21/2024 urina lysis , dipst ick Color Yellow Not Available [facility] [address], [place], [address], 02/21/2024 08:54:52 02/21/20 24 02/21/2024 hemog lobin A1C, adilsone rstic k hemoglobin A1C 9.0 % <5.7 Not Available [facility] [address], [place], [address], 02/21/2024 06:49:56 Result Notes None recorded. 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 He may be getting some stenosis of urethra related to prosthesis. Problem Code: N48.6; Problem Code Type: ICD-10; Not Available [facility] 4 04:48:29 Obesity Active 2014 Problem Code: E66.9; Problem Code Type: ICD-10; Not Available [facility] 4 04:48:29 Anxiety Active 201406/30/2021 - Comments only - Yung Horn MD - Struggling with some depression since daughter , but seeing therapist twice a week. Discussed options. Will refill gabapenitn as helps with pain and sleep. COntinue SNRI, trazodone prn Problem Code: F41.8; Problem Code Type: ICD-10; Not Available [facility] 4 04:48:29 Gastroesophag eal reflux disease without esophagitis Active 201408/06/2021 - Comments only - Yung Horn MD - I agree with Yung that his symtoms may be esophogeal. He was evaluated by cardiology and had negative ETT 07/29, he is cleared to procede with EGD. Will send not to Dr. Coe. Problem Code: K21.9; Problem Code Type: ICD-10; Not Available [facility] 4 04:48:29 Osteoarthriti s Active 201406/18/2020 - Comments only - Yung Horn MD - Has diffuse pain. On SNRI and gabapentin. Discussed limitations of evidence for gabapenting and risks. DIscussed concern with alcohol. He would like to try higher dose and will try to cut out alcohol again. Problem Code: M19.90; Problem Code Type: ICD-10; Not Available [facility] 4 04:48:29 Type 2 diabetes mellitus without complication Active 201405/25/2022 - Comments only - Yung Horn MD - A1c down dramatically. This may be partially due to blood loss of surgery, but should stop glipizide to avoid lows. Problem Code: E11.9; Problem Code Type: ICD-10; Not Available [facility] 4 04:48:29 Shoulder joint pain Active 2016 Problem Code: M25.519; Problem Code Type: ICD-10; Not Available [facility] 4 04:48:29 Amnesia Active 201604/10/2017 - Comments only - Yung Horn MD - MOCA does suggest mild [...] R41.3; Problem Code Type: ICD-10; Not Available [facility] 4 04:48:29 History of bariatric surgical procedure Active 2016 Problem Code: Z98.84; Problem Code Type: ICD-10; Not Available [facility] 4 04:48:29 Hearing loss Active 2016 Problem Code: H91.90; Problem Code Type: ICD-10; Not Available [facility] 4 04:48:29 History of clinical finding in subject Active 201607/15/2020 - Comments only - Yung Horn MD - Admits he relapsed, but he feels good about sobriety now, reconnecting with AA meetings. Discussed medical options if he feels he needs them. Problem Code: Z87.898; Problem Code Type: ICD-10; Not Available [facility] 4 04:48:29 Idiopathic osteoarthriti s Active 201703/14/2018 - Comments only - Yung Horn MD - s/p bilateral knee replacement. Doing quite well overall. He would like additional pain options, but I don't think adding NSAIDs or additiona opioids would be beneficial. Problem Code: M17.0; Problem Code Type: ICD-10; Not Available [facility] 4 04:48:29 Low back pain Active 201701/22/2018 - Comments only - Yung Horn MD - Looking for help with pain and sleep. Described back spasms in addition to chronic knee pain. Rather than benzo, try muscle relaxer short term as needed. Problem Code: M54.5; Problem Code Type: ICD-10; Not Available [facility] 4 04:48:29 Essential hypertension Active 201705/25/2022 - Comments only - Yung Horn MD - BP running low. Microalb okay. He should not be on GERMÁN any more. Problem Code: I10; Problem Code Type: ICD-10; Not Available [facility] 4 04:48:29 Obstructive sleep apnea syndrome Active 2018 Problem Code: G47.33; Problem Code Type: ICD-10; Not Available [facility] 4 04:48:29 Otitis externa Completed 201902/25/2020 02/11/2020 - Comments only - Amber Landa LEAF STRIPPER - to R ear canal. Prescribed ciprodex drops BID x 7 days. Advised pt to use warm compresses for comfort and avoid putting anything else in ear (peroxide, ointments, Qtips, etc). Pt to f/u if not significantly improved in 2-3 days. Problem Code: H60.90; Problem Code Type: ICD-10; Not Available [facility] 3 05:39:52 Lower urinary tract symptoms due to benign prostatic hypertrophy Active 201906/18/2020 - Comments only - Yung Horn MD - Discussed options, try tamsulosin Problem Code: N40.1; Problem Code Type: ICD-10; Not Available [facility] 4 04:48:29 Nonalcoholic steatohepatit is Active 202012/20/2022 - Comments only - Yung Horn MD - Exam benign, repeat CBC/CMP with labs to assess fibrosis Problem Code: K75.81; Problem Code Type: ICD-10; Not Available [facility] 4 04:48:29 History of disorder of digestive system Active 202007/15/2020 - Comments only - Yung Horn MD - Epigastric pain appears to have been caused by partial obstruction/s tenosis of enastamosis, as his symptoms and LFTs improved after dilation. Follow up per surgery. Problem Code: Z87.19; Problem Code Type: ICD-10; Not Available [facility] 4 04:48:29 Peroneal tendinitis Active 202011/25/2020 - Comments only - Yung Horn MD - MRI demonstrated peroneal tendonitis/sy novitis on right. He is slowly improving, though now evidence of the same on the left. We discussed conservative treatment, given handout. Will refer to podiatry Continue topical diclofenac. Problem Code: M76.70; Problem Code Type: ICD-10; Not Available [facility] 4 04:48:29 Disorder of salivary gland Active 202110/05/2021 - Comments only - Yung Horn MD - ENT consult to review CT, see if additional imaging or biopsy needed. Problem Code: K11.8; Problem Code Type: ICD-10; Not Available [facility] 4 04:48:28 History of fracture Active 202108/23/2022 - Comments only - Yung Horn MD - Ortho follow up reviewed. Can use prn lidocaine to area of scar as helps along with topical diclofenac Problem Code: Z87.81; Problem Code Type: ICD-10; Not Available [facility] 4 04:48:29 Screening for disorder Completed 201804/05/2023 01/02/2019 - Comments only - Yung Horn MD - I don't think related to current SOB, but given daytime sleepiness, fitful sleep, and snoring should get sleep study. Problem Code: Z13.89; Problem Code Type: ICD-10; Not Available [facility] 3 05:39:55 Chest pain Completed 201706/20/2018 Problem Code: R07.9; Problem Code Type: ICD-10; Not Available [facility] 3 05:39:55 History of polyp of colon Completed 201512/20/2022 Problem Code: Z86.010; Problem Code Type: ICD-10; Not Available [facility] 3 05:39:56 Cellulitis Completed 202011/25/2020 Problem Code: L03.90; Problem Code Type: ICD-10; Not Available [facility] 3 05:39:56 Hyperlipidemi a Completed 201405/27/2015 Problem Code: E78.5; Problem Code Type: ICD-10; Not Available [facility] 3 05:39:56 Lyme disease Completed 201601/22/2018 Problem Code: A69.20; Problem Code Type: ICD-10; Not Available [facility] 3 05:39:57 Pain of joint of knee Completed 201704/05/2023 07/24/2017 - Comments only - Yung Horn MD - May be residual from lyme, but may also be OA. Will get XR. Clinically some evidence of pes anserine bursitis. If getting worse, consider bursa or joint injection on f/u Problem Code: M25.569; Problem Code Type: ICD-10; Not Available [facility] 3 05:39:57 Pain of right shoulder joint Completed 201605/03/2021 Problem Code: M25.511; Problem Code Type: ICD-10; Not Available [facility] 3 05:39:57 Steatosis of liver Completed 202004/05/2023 07/15/2020 - Comments only - Yung Horn MD - Fatty liver seem on [...] K76.0; Problem Code Type: ICD-10; Not Available [facility] 3 05:39:57 Pain of left shoulder joint Completed 201403/27/2016 Problem Code: M25.512; Problem Code Type: ICD-10; Not Available [facility] 3 05:39:58 Chest pain Completed 201601/22/2018 Problem Code: R07.89; Problem Code Type: ICD-10; Not Available [facility] 3 05:39:58 Dyspnea Completed 201605/25/2022 Problem Code: R06.09; Problem Code Type: ICD-10; EUGENIO FULLER [address], [place], [address] , [facility] 08:13:24 Neutropenia associated with infectious disease Completed 202011/25/2020 Problem Code: D70.3; Problem Code Type: ICD-10; Not Available [facility] 3 05:39:59 Pain of left shoulder joint Completed 201604/05/2023 Problem Code: M25.512; Problem Code Type: ICD-10; Not Available [facility] 3 05:39:59 Hyperkalemia Completed 202011/25/2020 Problem Code: E87.5; Problem Code Type: ICD-10; Not Available [facility] 3 05:40:00 Herpes zoster Completed 201510/29/2015 Problem Code: B02.9; Problem Code Type: ICD-10; Not Available [facility] 3 05:40:01 Dizziness and giddiness Completed 201604/05/2023 04/10/2017 - Comments only - Yung Horn MD - While here in office developed lightedness. Normal neurologic and CV including EKG, but symptoms evolving here in the office, also having numbness in left arm and leg and pain in chest and upper back. Given this, EMS called to take to [facility] ED. Problem Code: R42; Problem Code Type: ICD-10; Not Available [facility] 3 05:40:01 Diarrhea Completed 202105/25/2022 Problem Code: R19.7; Problem Code Type: ICD-10; Not Available [facility] 3 05:40:01 Musculoskelet al symptom Completed 201601/22/2018 Problem Code: R29.91; Problem Code Type: ICD-10; Not Available [facility] 3 05:40:01 Otalgia of right ear Completed 201605/03/2021 Problem Code: H92.01; Problem Code Type: ICD-10; Not Available [facility] 3 05:40:02 Pre-surgery evaluation Completed 201503/27/2016 Problem Code: Z01.818; Problem Code Type: ICD-10; Not Available [facility] 3 05:40:03 General examination of patient Completed 201601/22/2018 Problem Code: Z00.8; Problem Code Type: ICD-10; Not Available [facility] 3 05:40:03 Adult health examination Completed 201405/27/2015 Problem Code: Z00.00; Problem Code Type: ICD-10; Not Available [facility] 3 05:40:04 Alcohol abuse Completed 202010/01/2020 Problem Code: F10.10; Problem Code Type: ICD-10; Not Available [facility] 3 05:40:06 Bilateral itching of eyes Active [address], [facility] [address] , [facility] 4 08:54:57 Chronic alcoholism in remission Active [address], [facility] [address] , [facility] 4 09:46:46 Cataract Active [address], [facility] [address] , [facility] 4 12:57:09 Dyspnea Active 2023 Problem Code: R06.09; Problem Code Type: ICD-10; EUGENIO FULLER [address], [place], [address] , [facility] 4 08:13:23 Hypomagnesemi a Active 2023 EUGENIO FULLER [address], [facility] [address] , [facility] 4 06:52:11 Acquired buried penis Active 2023 EUGENIO FULLER [address], [place], [address] , [facility] 4 07:04:13 Wound of abdomen Active 2023 EUGENIO FULLER [address], [facility] [address] , [facility] 4 08:35:41 Notes:Some problems listed i n Document: #[id number] could not be added to this patient's chart. Please review this document and add these problems to the patient's chart manually as needed. Problem Notes None recorded. Medical Equipment None Reported. Allergies Allergen ID Allergen Name Allergen Category Reaction Reaction Severity Criticality Documentation Date Start Date Code Code System Note Provider Name and Address Organization Details Recorded Time 75634 adhesive tape environme nt,medica tion rash mild Not available 05/19/20232014 skin rash Aller gyRea ction : 'skin rash' ; Not Available [facility] 3 16:25:29 Medications Name Sig Start Date [...] Not Available Not Available Not Avai lable prednison e 20 mg tablet Take 3 tablets every day by oral route for 5 days. 02/20 completed Not Available Not Available Not Available glipizide ER 5 mg tablet, extended release 24 hr 1 tablet by mouth every day for 5 days and then increase to 2 tabs by mouth thereaft er 2023 active Not Available Not Available Not Avai lable venlafaxi ne ER 150 mg capsule,e xtended release 24 hr TAKE 1 CAPSULE BY MOUTH ONCE A DAY WITH 75MG CAPSULE active Not Available Not Available No t Available Protonix 20 mg tablet,de layed release Take 1 tab by mouth daily 10/08 completed Not Available Not Available Not Available penicilli n V potassium 500 mg tablet 02/20 completed Not Available Not Available Not Available metronida zole 500 mg tablet Take 1 tablet every 8 hours by oral route. 02/20 completed Not Available Not Available Not Available ciproflox acin 500 mg tablet Take 1 tablet every 12 hours by oral route for 7 days. 02/20 completed Not Available Not Available Not Available sulfameth oxazole 800 mg-trimet hoprim 160 mg tablet Take 1 tablet every 12 hours by oral route. 2023 active Not Available Not Available Not Avai lable omeprazol e 40 mg capsule,d elayed release [...] completed Not Available Not Available Not Available oxycodone -acetamin ophen 5 mg-325 mg tablet TAKE ONE TABLET BY MOUTH EVERY 4 HOURS NEEDED FOR PAIN for pain not relieved by tylenol 02/20 completed Not Available Not Available Not Available [...] t Available gabapenti n 800 mg tablet TAKE 1 TABLET BY MOUTH [...] TAKE 1 TABLET BY MOUTH TWICE DAILY 02/20 completed Not Available Not Available Not Available lisinopri l 10 mg tablet Take [...] ER Not Available Not Available Not Available [place] 5 mg-325 mg tablet Take 1 tablet [...] MOUTH EVERY 6 HOURS NEEDED FOR PAIN 02/20 completed Not Available Not Available Not Available cyclobenz aprine 5 mg tablet TAKE 1 TABLET BY MOUTH THREE TIMES DAILY 02/20 completed Not Available Not Available Not Available Ciprodex 0.3 %-0.1 % ear drops,fr[place] pension Use 4 drops in affected ear twice a day for 7 days. 02/17 completed Not Available Not Available Not Available OneTouch UltraSoft Lancets Use three times a day 2015 active Not Available Not Available Not Avai lable BD Ultra-Fin e Mini Pen Needle 31 gauge x /16 Use 1 needle subcutan eously once a [...] tablet twice a day by oral route. 02/20 completed Not Available Not Available Not Available Vitamin D3 50 mcg (2,000 unit) [...] saturation in Arterial blood by Pulse oximetry Heart rate Systolic blood pressure Diastolic blood pressure Provider Name and Address Organization Details Last Updated DateTime 4 177.8 cm 31.7 kg/m2 988679. 48 g 98.8 [degF] 99 % 99 % 80 /min 124 mm[Hg] 78 mm[Hg] TONY HERNANDEZ MA [facility] 4 08:11:41 Social History None recorded. Functional Status None [...] Recorded Time Tdap 07/16/2014 completed Not Available [facility] 04:48:30 Td(adult) unspecified formulation 07/19/2021 completed Not Available [facility] 07/18/2023 04:48:30 Influenza, split virus, trivalent, preservative 04/06/2018 completed Not Available [facility] 07/18/2023 04:48:30 Influenza, split virus, quadrivalent, PF 03/13/2020 completed Not Available [facility] 07/18/2023 04:48:30 Influenza, split virus, quadrivalent, preservative 04/10/2017 completed Not Available [facility] 07/18/2023 04:48:30 COVID-19, mRNA, LNP-S, PF, 30 mcg/0.3 mL dose 09/19/2020 completed Not Available [facility] 07/18/2023 04:48:30 COVID-19, mRNA, LNP-S, PF, 30 mcg/0.3 mL dose 10/10/2020 completed Not Available [facility] 07/18/2023 04:48:30 SARS-COV-2 (COVID-19) vaccine, UNSPECIFIED 04/14/2021 completed Not Available [facility] 07/18/2023 04:48:30 Pneumococcal conjugate PCV20, polysaccharide [id number] conjugate, adjuvant, PF 05/25/2022 completed Not Available [facility] 07/18/2023 04:48:30 pneumococcal polysaccharide PPV23 07/16/2014 completed Not Available [facility] 2023 04:48:30 influenza, unspecified formulation 03/09/2015 completed Not Available [facility] 07/18/2023 04:48:30 influenza, unspecified formulation 04/13/2021 completed Not Available [facility] 07/18/2023 04:48:30 influenza, unspecified formulation 04/28/2016 completed Not Available [facility] 07/18/2023 04:48:30 Influenza, high-dose, quadrivalent, PF 04/20/2023 completed Not Available [facility] 07/21/2023 05:33:12 COVID-19, mRNA, LNP-S, PF, lucio-sucrose, 30 mcg/0.3 mL 04/20/2023 completed Not Available [facility] 07/21/2023 05:33:12 Past Encounters Encounter ID Performer Location Encounter Start Date Encounter Closed Date Diagnosis/Indication Diagnosis SNOMED-CT Code [id number] EUGENIO FULLER [address] [place] [address] 02/21/2024 07:59:47 02/21/2024 09:17:15 Type 2 diabetes mellitus without complication 573052946 Hypomagnesemia 001465542 Anxiety 37220248 Essential hypertension 60618192 Acquired buried penis 23 3398863 Wound of abdomen 7640809 03 Health Concerns Section Related Observation LastModified by Organization Detai ls LastModified Time None Recorded Concern Status LastModified by Organization Details LastModified Time None Recorded Payers Encounter Date Sequence Insurance Name Policy Number Policy Limon Covered Member ID Limon Member ID Guarantor Name 02/21/2024 1 [id number]IC[place]/ [place]ANTAGE - PPO) [id number] Yung Betancur [id number] Yung Betancur Notes Date Note Type Note Provider Name and Address Organization Details Recorded Time 02/21/2024 text/html HPI Notes: Pt, [age]-M, here to establish care with new PCP, ED f/u from 01/19/2024 for abdominal pain/diarrhea/malais e treated with cipro/metro + pred, hypomagnesemia as well noted, f/u for Dmii, and incidentally he is also s/p recent surgical correction of a buried penis performed at [facility] 02/08/2024, he is having his nidhi out with Dr. Jessica at [facility] in f/u I believe tomorrow. He did have interval 02/15/[address] Reyez, Urology at [facility] 02/15/2024. Dmii:Hga1c is 9% today. Buried Penis: Pt. reports increased abdominal pain, fatigue at home for last 1-2 days. There has been increase in yellowish type drainage from wound per . Pt. still having BM, urinating without discomfort. No known fever at home. 99F in office today. Diarrhea/Hypomagnese davin: Diarrhea improved with decrease in Metformin Anxiety/Mood/Depress ion: Defered at this appt [address], [place], [address], [facility], [facility]. 02/21/2024 19:37:58
--- OUTSIDE RECORDS SUMMARY | 2024-03-03 13:35 | XMS_ITS | Encounter Summary ---
Author Organization [facility] Address [address] [place] [address] Care Team Providers Care Fabric Sourcer Name Role Phone Yung Horn MD Primary Care Provider [phone] Encounter Details Date Type Department Care Team (Late st Contact Info) Description 07/04/2020 Lab Requisition [facility] Pathology & Laboratory Medicine - [address] [address] Outr Resulting Lab, Provider Social History Tobacco [...] Surface Ag Negative Negative 07/06/2020 9:58 EST [facility] Hep C Antibody Negative Negative 07/06/2020 9:58 EST [facility] Hepatitis A Antibody, IgM Negative Negative 07/06/2020 9:58 EST [facility] Comment:The results of this assay can be falsely lowered due to the consumption of Biotin. Hepatitis B Core Ab, Total Negative Negative 07/06/2020 9:58 EST [facility] Blood VENOUS BLOOD / Unknown 07/03/2020 5:55 EST 07/04/2020 17:27 EST Provider Outr Resulting Lab CHEMISTRY & BLOOD GAS ORDERABLES [facility] [address] [place] [address] documented in this encounter Visit Diagnoses Not on filedocumented in this encounter Care Teams Fabric Sourcer Relationship Specialty Start Date End Date Yung Horn MD [address] [place] [address] PCP - General 01/26/18 documented as of this encounter
--- OUTSIDE RECORDS SUMMARY | 2024-03-03 13:35 | XMS_ITS | Encounter Summary ---
Author Organization [facility] Address [address] [place] [address] Care Team Providers Care Bitumastic Applier Name Role Phone Yung Horn MD Primary Care Provider [phone] Encounter Details Date Type Department Care Team (Late st Contact Info) Description 11/02/2021 Lab Requisition [facility] Pathology & Laboratory Medicine - [facility] [address] [place] [address] Matias Bravo MD [address] [place] [id number] Encounter for other general examination Social History [...] Name Priority Date/Time Associated Diagnosis Comments NON PCA ASSISTED LIVING/FNA CYTOLOGY Today 11/01/2021 14:30 EDT Encounter for other general examination documented in this encounter Results * NON PCA ASSISTED LIVING/FNA CYTOLOGY (11/01/2021 14:30 EDT) Note to Patient The following pathology results have been interpreted by your pathologist and may be available to you before your health provider has had the opportunity to review them. Please allow time for your provider to receive these results and explore management options, if applicable. 11/03/2021 10:44 [facility] Final Diagnosis A. PAROTID GLAND, ULTRASOUND-GUIDE D FINE NEEDLE ASPIRATION: - Benign parotid gland acini present. See comment. 11/03/2021 10:44 [facility] Diagnosis Comment Cytologic evaluation demonstrates groupings of benign serous acinic glands with no cytologic or architectural atypia. There is no definitive evidence of a neoplasm in the current sample. Clinical correlation is recommended to exclude a sampling issue. 11/03/2021 10:44 [facility] Attestation There was significant resident/fellow involvement in the diagnostic evaluation of this case. By the signature below, the attending physician certifies that they have personally conducted a gross and/or microscopic examination of the described specimens and rendered or confirmed the above diagnosis. 11/03/2021 10:44 [facility] at 1044 Clinical History Bilateral parotid masses; H/O alcohol abuse. 11/03/2021 10:44 [facility] Gross Description A. One vial of CytoLyt was received and processed by selective cellular enhancement technique. 11/03/2021 10:44 [facility] Resident/Alexy w: Ivory Mohr MD 11/03/2021 10:44 [facility] Performing Lab [facility] 11/03/2021 10:44 [facility] Scanned Images 11/03/2021 10:44 [facility] Fine Needle Aspirate PAROTID GLAND STRUCTURE / Unknown 11/01/2021 14:30 EDT 11/02/2021 8:20 EDT aMtias Bravo MD PATHOLOGY ORDERABLES [facility] [address] [place] [address] documented in this encounter Visit Diagnoses Diagnosis Encounter for other general examination documented in this encounter Care Teams Bitumastic Applier Relationship Specialty Start Date End Date Yung Horn MD [facility] [place] [address] PCP - General 01/26/18 documented as of this encounter
--- OUTSIDE RECORDS SUMMARY | 2024-03-03 13:35 | XMS_ITS | Encounter Summary ---
Author Organization [facility] Address [address] [place] [address] Care Team Providers Care Stove Mounter Name Role Phone Yung Horn MD Primary Care Provider [phone] Encounter Details Date Type Department Care Team (Late st Contact Info) Description 02/08/2018 Abstract [facility] Orthopedic Trauma - [address] [address] Steff Arellano LPN [address] [place] [address] Social History Tobacco Use Types Packs/Day Years Used Date Smoking Tobacco: Never Assessed Sex and Gender Information Value Date Recorded Sex Assigned at Not on file Gender Identity Not on file Sexual Orientation Not on file documented as of this encounter Plan of Treatment Not on file documented as of this encounter Visit Diagnoses Not on filedocumented in this encounter Care Teams Stove Mounter Relationship Specialty Start Date End Date Yung Horn MD [address] [place] [address] PCP - General 01/26/18 documented as of this encounter
--- OUTSIDE RECORDS SUMMARY | 2024-03-03 13:35 | XMS_ITS | Encounter Summary ---
Author Organization [facility] Address [address] [place] [address] Care Team Providers Care Retort Or Condenser Press Operator Name Role Phone Yung Horn MD Primary Care Provider [phone] Encounter Details Date Type Department Care Team (Late st Contact Info) Description 01/21/2024 Lab Requisition [facility] Pathology & Laboratory Medicine - [address] [address] Outr Resulting Lab, Provider Social History Tobacco [...] Salmonella PCR Negative Negative 01/21/2024 19:45 EDT [facility] Shigella/Enteroin vasive E. coli Negative Negative 01/21/2024 19:45 EDT [facility] HN LAB CAMPYLOBACTER PCR Negative Negative 01/21/2024 19:45 EDT [facility] Shiga Toxin PCR Negative Negative 19:45 EDT [facility] Feces SPECIMEN FROM RECTUM / Unknown 01/20/2024 7:15 EDT 01/21/2024 15:49 EDT Provider Outr Resulting Lab MICROBIOLOGY - GENERAL ORDERABLES [facility] [address] [place], [place] [id number] documented in this encounter Visit Diagnoses Not on filedocumented in this encounter Care Teams Retort Or Condenser Press Operator Relationship Specialty Start Date End Date Yung Horn MD [address] [place] [address] PCP - General 01/26/18 documented as of this encounter
--- OUTSIDE RECORDS SUMMARY | 2024-03-03 13:35 | XMS_ITS | Encounter Summary ---
Author Organization [facility] Address [address] [place] [address] Care Team Providers Care Tableau Report Developer Name Role Phone Yung Horn MD Primary Care Provider [phone] Encounter Details Date Type Department Care Team (Late st Contact Info) Description 08/15/2021 Lab Requisition [facility] Pathology & Laboratory Medicine - [facility] [address] [place] [address] rKystin Coe, DO [address] [place], [place] [address] Dysphagia, unspecified Social History Tobacco Use Types [...] management options, if applicable. 08/17/2021 9:11 EST [facility] Final Diagnosis A. GASTROESOPHAGEAL JUNCTION, BIOPSY: - Reactive squamocolumnar junctional mucosa. - Negative for intestinal metaplasia. - Negative for dysplasia or malignancy. 08/17/2021 9:11 [facility] Attestation There was significant resident/fellow involvement in the diagnostic evaluation of this case. By the signature below, the attending physician certifies that they have personally conducted a gross and/or microscopic examination of the described specimens and rendered or confirmed the above diagnosis. 08/17/2021 9:11 [facility] at 0911 Clinical History Dysphagia, hx of stricture 08/17/2021 9:11 [facility] Gross Description A. Received in formalin labelled with proper patient identification (initials B, J) and GE junction is a pale hernandez-white tissue (0.4 x 0.3 x 0.3 cm). Submitted intact in A1. Mo Diehl 08/15/2021 13:18 08/17/2021 9:11 [facility] Resident/Alexy w: Sharla Nichols DO 08/17/2021 9:11 [facility] Performing Lab [facility] 9:11 [facility] Scanned Images 08/17/2021 9:11 [facility] Tissue ENTIRE ESOPHAGO-GASTRIC MUCOSAL JUNCTION / Unknown 08/13/2021 8:16 EST 08/15/2021 12:16 EST Krystin Coe DO PATHOLOGY ORDERABLES [facility] [address] [place] [address] documented in this encounter Visit Diagnoses Diagnosis Dysphagia, unspecified documented in this encounter Care Teams Tableau Report Developer Relationship Specialty Start Date End Date Yung Horn MD [address] [place] [address] PCP - General 01/26/18 documented as of this encounter
--- OUTSIDE RECORDS SUMMARY | 2024-03-03 13:35 | XMS_ITS | Encounter Summary ---
Author Organization [facility] [place] [address] Care Team Providers Care Lay Out Carpenter Name Role Phone Boston Hernandez MD Primary Care Provider [phone] Reason for Visit * Reason Comments Follow Up Surgery Encounter Details Date Type Department Care Team (Late st Contact Info) Description 07/23/2015 8:00 AM EST [place] [address] Ebenezer Patino III, MD [facility] [place] [address] Erectile dysfunction, unspecified erectile dysfunction type Social [...] PM EDT [place] [address] Manoj Vinson MD [facility] [place] [address] documented as of this encounter Visit Diagnoses Diagnosis Erectile dysfunction, unspecified erectile dysfunction type documented in this encounter Care Teams Lay Out Carpenter Relationship Specialty Start Date End Date Boston Hernandez MD [facility] [address] [place] [address] PCP - General General Internal Medicine 05/27/1511/07 documented as of this encounter
--- OUTSIDE RECORDS SUMMARY | 2024-03-03 13:35 | XMS_ITS | Encounter Summary ---
Author Organization [facility] Address [address] [place] [address] Care Team Providers Care Supervisor Heavy Equipment Name Role Phone Yung Horn MD Primary Care Provider Encounter Details Date Type Department Care Team (Late st Contact Info) Description 07/04/2020 Lab Requisition [facility] Pathology & Laboratory Medicine - [address] [address] Outr Resulting Lab, Provider Social History Tobacco [...] Surface Ag Negative Negative 07/06/20 9:56 EST [facility] Hep B Surface Ab, Quantitative <3.1 See Note mIU/mL 07/06/2020 9:56 EST [facility] Comment: Reference Range for Hep B Surface Ab, Quant: Positive: >= 10.0 mIU/mL Negative: ??< 10.0 mIU/mL Patient is presumed to not be immune to infection with Hepatitis B Virus. Hep B Surface Ab, Qualitative Negative See Note 07/06/2020 9:56 EST [facility] Comment: Reference Range for Hep B Surface Ab, Qual: Unvaccinated: ??Negative Vaccinated: ??Positive Hepatitis B Core Ab, Total Negative Negative 07/06/2020 9:56 EST [facility] Hep C Antibody Negative Negative 07/06/2020 9:56 EST [facility] Blood VENOUS BLOOD / Unknown 07/03/2020 5:55 EST 07/04/2020 17:27 EST Provider Outr Resulting Lab CHEMISTRY & BLOOD GAS ORDERABLES Performing Organization Address City/State/[facility] Co de Phone Number [facility] [address] [place] [address] documented in this encounter Visit Diagnoses Not on filedocumented in this encounter Care Teams Supervisor Heavy Equipment Relationship Specialty Start Date End Date Yung Horn MD [address] [place] [address] PCP - General 01/26/18 documented as of this encounter
--- OUTSIDE RECORDS SUMMARY | 2024-03-03 13:35 | XMS_ITS | Encounter Summary ---
Author Organization [facility] Address [address] [place] [address] Care Team Providers Care Tank Driver Name Role Phone Yung Horn MD Primary Care Provider [phone] Reason for Visit * (Routine/Next Available) - Receiving Office to Obtain Authorization Specialty Diagnoses / Procedures Referred By Marisela ramesh Referred To Contact Procedures XR OUTSIDE IMAGES MSK Imaging, External Referral ID Status Reason Start Date Expiration Date Visits Requested Visits Authorized [id number] Receiving Office to Obtain Authorization 2 1 1 Encounter Details Date Type Department Care Team (Latest Contact Info) Description 04/20/2022 0:15 EDT - 04/20/2022 23:59 EDT Hospital Encounter [facility] [place] Discharge Disposition: Home or [...] on filedocumented in this encounter Care Teams Tank Driver Relationship Specialty Start Date End Date Yung Horn MD [address] [place] [address] PCP - General 01/26/18 documented as of this encounter
--- OUTSIDE RECORDS SUMMARY | 2024-03-03 13:35 | XMS_ITS | Encounter Summary ---
[facility] [place] [address] Care Team Providers Care Clockmaker Apprentice Name Role Phone Boston Hernandez MD Primary Care Provider [phone] Reason for Visit * Auth/Cert Specialty Diagnoses / Procedures Referred By Contac t Referred To Contact Diagnoses Iron deficiency anemia, unspecified FE Def Anemia Procedures PRO UPPER GI ENDOSCOPY, DIAGNOSTIC PRO COLONOSCOPY, DIAGNOSTIC EGD, UPPER GI ENDOSCOPY COLONOSCOPY, DIAGNOSTIC Referral ID Status Reason Start Date Expiration Date Visits Re quested Visits Authorized [id number] 1 1 Encounter Details Date Type Department Care Team (Latest Contact Info) Description 08/05/2015 1:35 PM EST - 08/05/2015 3:55 PM EST Hospital [place] [address] Kwan Forte MD [facility] [place] [address] Discharge Disposition: Home Social History Tobacco Use [...] - 08/05/2015 3:43 PM EST Please call [phone] before 5pm with problems, questions or concerns, after 5pm call the Hospital at [phone] and ask to speak to the Finance Intern directional drill operator and the varnishing unit operator will contact that person for you. [...] Everywhere. * EGD (UPPER ENDOSCOPY) : POST-OP (ICELANDIC) * COLONOSCOPY : POST-OP (ICELANDIC) documented in this encounter Medications at Time [...] 3:00 PM EDT Office Visit Urology at [facility] [place] [address] Manoj Vinson MD [facility] [place] [address] documented as of this encounter Procedures Procedure [...] Report (08/05/2015 3:33 PM EST) Final Diagnosis [id number] ? Location: The signing pathologist has (i) [...] ing: (T1) ??pps 08/07/2015 3:03 PM EST [facility] GI Biopsy 08/05/2015 3:33 PM EST 08/05/2015 3:33 PM EST GI Biopsy 08/05/2015 3:33 PM EST 08/05/2015 3:33 PM EST Kwan Forte MD PATHOLOGY/CYTOLOGY ORDERABLES Performing Organization Address [facility]/State/[facility] Co de Phone Number [facility] [place] [address] * Specimen to Pathology (surgical or derm) (08/05/2015 3:33 PM EST) AP Specimen 08/05/2015 3:33 PM EST 08/05/2015 3:33 PM EST Narrative [facility] - 08/05/2015 3:33 PM EST Specimen requisition ordered. ??Separate Pathology report to follow Kwan Forte MD PATHOLOGY/CYTOLOGY ORDERABLES Performing Organization Address [facility]/ZIP Co de Phone Number [facility] * Specimen to Pathology (surgical or derm) (08/05/2015 3:33 PM EST) AP Specimen 08/05/2015 3:33 PM EST 08/05/2015 3:33 PM EST Narrative [facility] - 08/05/2015 3:33 PM EST Specimen requisition ordered. ??Separate Pathology report to follow Kwan Foret MD PATHOLOGY/CYTOLOGY ORDERABLES Performing Organization Address [facility] Co de Phone Number [facility] * UPPER GI ENDOSCOPY (08/05/2015 2:52 PM EST) UPPER GI ENDOSCOPY [facility] Endoscopy ___ Patient Name: Yung Betancur ? Procedure Date: 08/05/2015 2:52 PM ? Date of : 1955 ? Age: 59 ? Order #: [id number] ? ___ Procedure: ? Upper GI endoscopy Indications: ? Gastrointestinal bleeding Providers: ? Kwan Forte MD, Roosevelt Donnelly ? Leonie, MATEO, Dee Dee Lopes, ? Distributed Generation Project Manager Referring : ?Boston Hernandez MD Medicines: ? [...] appearing mucosa. This was ? traversed. The bchuk-lv-pyyjcnw limb was ? characterized by healthy appearing mucosa. The ? jejunojejunal anastomosis was characterized by ? healthy appearing mucosa. The yadzndlk-xu-dcrplgt ? limb was not examined as it [...] * COLONOSCOPY (08/05/2015 2:52 PM EST) COLONOSCOPY [facility] Endoscopy Patient Name: Yung Betancur ? Procedure Date: 08/05/2015 2:52 PM ? N: [id number] ? Date of : 1955 ? Age: 59 ? Order #: [id number] ? Procedure: ? Colonoscopy Indications: ? Hematochezia Providers: ? Kwan Forte MD, Roosevelt Donnelly ? Leonie, MATEO, Dee Dee Lopes, ? Distributed Generation Project Manager Referring MD: ?Boston Hernandez MD Medicines: ? [...] Glucose, POC 172 65 - 199 mg/dL [facility] Comment: Supplemental ranges: <140 mg/dL before [...] RN) documented in this encounter Care Teams Clockmaker Apprentice Relationship Specialty Start Date End Date Boston Hernandez MD [facility] [address] [place] [address] PCP - General General Internal Medicine 05/27/1511/07 documented as of this encounter
--- OUTSIDE RECORDS SUMMARY | 2024-03-03 13:35 | XMS_ITS | Clinical Summary ---
Author Organization [facility] Address [address] [place] [address] Care Team Providers Care Bleach Boiler Filler Name Role Phone Yung Horn MD Primary Care Provider [phone] Allergies Active Allergy Reactions Criticality Noted Date [...] Department Care Team Description 01/21/2024 Lab Requisition [facility] Pathology & Laboratory Medicine - [facility] [address] [place] [address] Outr Resulting Lab, Provider from Last 3 [...] Salmonella PCR Negative Negative 01/21/2024 19:45 EDT [facility] Shigella/Enteroin vasive E. coli Negative Negative 01/21/2024 19:45 EDT [facility] HN LAB CAMPYLOBACTER PCR Negative Negative 01/21/2024 19:45 EDT [facility] Shiga Toxin PCR Negative Negative 19:45 EDT [facility] Feces SPECIMEN FROM RECTUM / Unknown 01/20/2024 7:15 EDT 01/21/2024 15:49 EDT Provider Outr Resulting Lab MICROBIOLOGY - GENERAL ORDERABLES [facility] [address] [place], [place] [id number] from Last 3 Months Care Teams Bleach Boiler Filler Relationship Specialty Start Date End Date Yung Horn MD [facility] [place] [address] PCP - General 01/26/18
--- OUTSIDE RECORDS SUMMARY | 2024-03-03 13:35 | XMS_ITS | Referral Summary ---
Author Organization [facility] Address [address] [place] [address] Care Team Providers Care Internet Site Designer Name Role Phone Yung Horn MD Primary Care Provider [phone] Encounters Date Type Department Care Team Description 01/21/2024 Lab Requisition [facility] Pathology & Laboratory Medicine - [facility] [address] [place] [address] Outr Resulting Lab, Provider from Last 3 [...] Salmonella PCR Negative Negative 01/21/2024 19:45 EDT [facility] Shigella/Enteroin vasive E. coli Negative Negative 01/21/2024 19:45 EDT [facility] HN LAB CAMPYLOBACTER PCR Negative Negative 01/21/2024 19:45 EDT [facility] Shiga Toxin PCR Negative Negative 19:45 EDT [facility] Feces SPECIMEN FROM RECTUM / Unknown 01/20/2024 7:15 EDT 01/21/2024 15:49 EDT Provider Outr Resulting Lab MICROBIOLOGY - GENERAL ORDERABLES [facility] [address] [place] [address] from Last 3 Months Care Teams Internet Site Designer Relationship Specialty Start Date End Date Yung Horn MD [facility] [place] [address] PCP - General 01/26/18
--- OUTSIDE RECORDS SUMMARY | 2024-03-03 13:35 | XMS_ITS | Encounter Summary ---
Author Organization [facility] Address [address] [place] [address] Care Team Providers Care Changeover Operator Name Role Phone Yung Horn MD Primary Care Provider [phone] Encounter Details Date Type Department Care Team (Late st Contact Info) Description 07/06/2020 Lab Requisition [facility] Pathology & Laboratory Medicine - [facility] [address] [place] [address] Krystin Coe, DO [address] [place] [address] Encounter for other general examination Social History [...] with no specific pathologic features. 07/08/2020 9:50 [facility] Attestation By the signature below, the attending physician certifies that they have 1) personally conducted a gross and/or microscopic examination of the described specimen(s), and/or personally interpreted the results of laboratory testing of the described specimen(s), and 2) personally rendered or confirmed the above diagnosis. 07/08/2020 9:50 [facility] at 0950 Clinical History Dysphagia 07/08/2020 9:50 [facility] Gross Description A. [...] D1. EUGENIO HERNÁNDEZ(ASCP) 07/06/2020 17:12 07/08/2020 9:50 [facility] Resident/Alexy w: ANA VICK MD 07/08/2020 9:50 [facility] Performing Lab [facility] 9:50 [facility] Scanned Images 07/08/2020 9:50 [facility] Tissue ENTIRE ESOPHAGUS / Unknown 07/04/2020 10:20 EST 07/06/2020 16:46 EST Tissue specimen (specimen) STOMACH STRUCTURE / Unknown 07/04/2020 10:20 EST 07/06/2020 16:46 EST Tissue specimen (specimen) ESOPHAGEAL STRUCTURE / Unknown 07/04/2020 10:20 EST 07/06/2020 16:46 EST Tissue specimen (specimen) ESOPHAGEAL STRUCTURE / Unknown 07/04/2020 10:20 EST 07/06/2020 16:46 EST Krystin Coe DO PATHOLOGY ORDERABLES Performing Organization Address City/State/[facility] Co de Phone Number [facility] [address] [place] [address] documented in this encounter Visit Diagnoses Diagnosis Encounter for other general examination documented in this encounter Care Teams Changeover Operator Relationship Specialty Start Date End Date Yung Horn MD [facility] [place] [address] PCP - General 01/26/18 documented as of this encounter
--- OUTSIDE RECORDS SUMMARY | 2024-03-03 13:35 | XMS_ITS | Encounter Summary ---
Author Organization [facility] Address [address] [place] [address] Care Team Providers Care Party Plan Sales Host/Hostess Name Role Phone Yung Horn MD Primary Care Provider [phone] Reason for Visit * Reason Comments Knee Pain bilat knee pain dos 2007 Encounter Details Date Type Department Care Team (Latest Contact Info) Description 01/29/2018 13:45 EDT Office Visit [facility] Total Joint Program - [address] [address] Roosevelt Miller MD MSc FRCSC [address] [place] [phone] Bilateral primary osteoarthritis of knee (Primary [...] know, 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 He lives with his . He comes in complaining of bilateral knee pain with the right being worse than the left. He is here for a second opinion. He is due to have bilateral total knee replacements in [place] next month by Dr De Lóen. He was recently diagnosed and treated for [...] daily. added in this encounter Care Teams Party Plan Sales Host/Hostess Relationship Specialty Start Date End Date Yung Horn MD [facility] [place] [address] PCP - General 01/26/18 documented as of this encounter
--- OUTSIDE RECORDS SUMMARY | 2024-03-03 13:35 | XMS_ITS | Encounter Summary ---
Author Organization [facility] Address [address] [place] [address] Care Team Providers Care Radiology Special Procedure Tech Name Role Phone Yung Horn MD Primary Care Provider [phone] Encounter Details Date Type Department Care Team (Late st Contact Info) Description 11/12/2019 Lab Requisition [facility] Pathology & Laboratory Medicine - [address] [id number] Outr Resulting Lab, Provider Social History Tobacco [...] Outr Resulting Lab MICROBIOLOGY - GENERAL ORDERABLES [facility] [address] [place] [address] * COVID-19 TESTING (11/12/2019 14:45 EDT) COVID-19 rt-PCR Result Negative Negative 11/13/2019 13:06 EDT [facility] Comment: Negative results do not preclude 2019-nCoV infection and should not be used as the sole basis for treatment or other patient management decisions. Negative results must be combined with clinical observations, patient history, and epidemiological information. This test was developed and its performance characteristics determined by [facility]. It has not been cleared or approved [...] by the FDA Performed on the [employer] [address] Fast. Performing Lab [facility] Hospital Lab 11/13/2019 13:06 EDT [facility] Swab ENTIRE NASOPHARYNX / Unknown 11/12/2019 14:45 EDT 11/12/2019 20:51 EDT Provider Outr Resulting Lab MICROBIOLOGY - GENERAL ORDERABLES [facility] [address] [place] [address] documented in this encounter Visit Diagnoses Not on filedocumented in this encounter Care Teams Radiology Special Procedure Tech Relationship Specialty Start Date End Date Yung Horn MD [place] [place] [address] PCP - General 01/26/18 documented as of this encounter
--- OUTSIDE RECORDS SUMMARY | 2024-03-03 13:35 | XMS_ITS | Encounter Summary ---
Author Organization [facility] Address [address] [place] [address] Care Team Providers Care Machine Repairer Maintenance Name Role Phone Yung Horn MD Primary Care Provider [phone] Encounter Details Date Type Department Care Team (Late st Contact Info) Description 12/22/2020 Lab Requisition [facility] Pathology & Laboratory Medicine - [place] [address] [place] [address] Krystin Coe, DO [address] [place] [address] Encounter for other general examination Social History [...] chronic inflammation SEE COMMENT 12/25/2020 15:45 EDT [facility] Diagnosis Comment No clinical history or indication for liver biopsy is received with this case. Subcapsular tissue is suboptimal for medical liver evaluation and thermal cautery artifact additionally limits this sample. 12/25/2020 15:45 [facility] Attestation There was significant resident/fellow involvement in the diagnostic evaluation of this case. By the signature below, the attending physician certifies that they have personally conducted a gross and/or microscopic examination of the described specimens and rendered or confirmed the above diagnosis. 12/25/2020 15:45 [facility] at 1545 Clinical History Not given 12/25/2020 15:45 [facility] Gross Description A. Received in [...] cystic duct margin, en face, and 2 title insurance sales representative sections are submitted in A1. B. Received in formalin labelled with proper patient identification (initials B, J) and liver Bx is a wedge of liver (1.2 x 1.0 x 0.5 cm). No nodules or lesions are present. The specimen is trisected and submitted in B1. EUGENIO ROCKWELL(ASCP) 12/23/2020 9:04 12/25/2020 15:45 [facility] Resident/Alexy w: Ivory Mohr MD 12/25/2020 15:45 [facility] Performing Lab [facility] 12/25/2020 15:45 [facility] Scanned Images 12/25/2020 15:45 [facility] Tissue ENTIRE LIVER / Unknown 12/22/2020 10:35 EDT 12/22/2020 17:25 EDT Tissue specimen (specimen) LIVER STRUCTURE / Unknown 12/22/2020 10:35 EDT 12/22/2020 17:25 EDT Krystin Coe DO PATHOLOGY ORDERABLES [facility] [address] [place] [address] documented in this encounter Visit Diagnoses Diagnosis Encounter for other general examination documented in this encounter Care Teams Machine Repairer Maintenance Relationship Specialty Start Date End Date Yung Horn MD [facility] [place] [address] PCP - General 01/26/18 documented as of this encounter
--- OUTSIDE RECORDS SUMMARY | 2024-03-03 13:35 | XMS_ITS | Encounter Summary ---
Author Organization [facility] [place] [address] Care Team Providers Care Tobacco Drying Machine Operator Name Role Phone Maritza Faustin MD Primary Care Provider [phone] Reason for Visit * Reason Comments Abnormal Penile Curvature Encounter Details Date Type Department Care Team (Late st Contact Info) Description 02/18/2015 8:00 AM EDT [place] [address] Ebenezer Patino III, MD [facility] [place] [address] Peyronie's disease Discharge Disposition: Home Social History [...] seen by a urologist (Dr. Sharma) in [place], [place]. He made the diagnosis of [...] 3:00 PM EDT [place] [address] Manoj Vinson MD [facility] [place] [address] documented as of this encounter Visit Diagnoses Diagnosis Peyronie's disease documented in this encounter Care Teams Tobacco Drying Machine Operator Relationship Specialty Start Date End Date Maritza Faustin MD [address] [facility] [place] [address] PCP - General 07/25/14 05/26/15 documented as of this encounter
--- OUTSIDE RECORDS SUMMARY | 2024-03-03 13:35 | XMS_ITS | Encounter Summary ---
Author Organization [facility] Address [address] [place] [address] Care Team Providers Care Lead Machinist Name Role Phone Yung Horn MD Primary Care Provider [phone] Encounter Details Date Type Department Care Team (Late st Contact Info) Description 12/21/2022 Lab Requisition [facility] Pathology & Laboratory Medicine - [address] [id number] Outr Resulting Lab, Provider Social History Tobacco [...] PSA 0.5 <=4.5 ng/mL 12/21/2022 18:21 EDT [facility] Blood VENOUS BLOOD / Unknown 12/20/2022 14:20 EDT 12/21/2022 16:48 EDT Narrative [facility] - 12/21/2022 18:21 EDT NOTE: Serum PSA concentration should not be interpreted as absolute evidence for the presence or absence of malignant disease. Assayed on Siemens ADVIA Centaur XPT using chemiluminescent technology.??Values obtained by using different assay methods cannot be used interchangeably. Provider Outr Resulting Lab CHEMISTRY & BLOOD GAS ORDERABLES [facility] [address] [place] [address] documented in this encounter Visit Diagnoses Not on filedocumented in this encounter Care Teams Lead Machinist Relationship Specialty Start Date End Date Yung Horn MD [address] [place] [address] PCP - General 01/26/18 documented as of this encounter
--- OUTSIDE RECORDS SUMMARY | 2024-03-03 13:35 | XMS_ITS | Encounter Summary ---
[place] [address] Care Team Providers Care Precision Instrument Maker Name Role Phone Boston Hernandez MD Primary Care Provider [phone] Reason for Visit * Auth/Cert Specialty Diagnoses / Procedures Referred By Contac t Referred To Contact Diagnoses ED/[facility] Procedures PRO INSERT, INFLATABLE PENILE PROSTHESIS PENILE PROSTHESIS, MULTI-COMPONENT Referral ID Status Reason Start Date Expiration Date Visits Re quested Visits Authorized [id number] 1 1 Encounter Details Date Type Department Care Team (Late st Contact Info) Description 06/09/2015 3:46 PM EST Anesthesia Event [place] [address] Marcelino Mireles MD [facility] [place] [address] Arabella Hatch MD [facility] [address] [place] [address] Anesthesia Record Procedure Summary Procedure Name Responsible [...] IV Line - Single Lumen 06/09/15; 1338; wazt-icu-apldaq catheter system; 20 gauge; Justina Still RN; [...] Mireles MD - 06/09/2015 7:45 PM EST [facility] Department of Anesthesiology Post-procedure Note Patient: Yung Betancur Procedure Summary Date Anesthesia Start Anesthesia Stop Room / Location 06/09/15 4545 [id number] [facility] OR [facility] MAIN OR Procedure Diagnosis Surgeon Responsible Provider PENILE PROSTHESIS, MULTI-COMPONENT (N/A Penis) No diagnosis on file. Ebenezer Patino III, MD Mancuso, Aaron J, MD (ED/[facility]IE[facility]S) Last (1hr) Vitals: BP 127/73 mmHg (06/09/151929) Temp Pulse 82 (06/09/151929) Resp 12 (06/09/151929) SpO2 98 % (06/09/151929) Patient Location: PACU/[facility] Level of Consciousness: Awake and Alert Pain [...] with patient and spouse. Plan discussed with HEAD OF MARKETING ADOMETRY. PAT Staff Note documented in this encounter Plan of Treatment Upcoming Encounters Date Type Department Care Team (Late st Contact Info) Description 03/13/2024 3:00 PM EDT Office Visit Urology at [facility] [place] [address] Manoj Vinson MD [facility] [place] [address] documented as of this encounter Visit Diagnoses [...] g documented in this encounter Care Teams Precision Instrument Maker Relationship Specialty Start Date End Date Boston Hernandez MD [facility] [address] [place] [address] PCP - General General Internal Medicine 05/27/1511/07 documented as of this encounter
--- OUTSIDE RECORDS SUMMARY | 2024-03-03 13:35 | XMS_ITS ---
Author Organization Unknown Address [address] [place] [phone] Phone Care Team Providers Care Oil Processing Technician Name Role Phone DIANA BRIGHT Registered Nurse [...] D Wednesday, February 23, 2022 8:00:13 AM [id number] Electronically Reviewed and Signed By: ANGÉLICA PIMENTEL MD 02/25/22 21:55 Copy for: 185 HEALTH INFORMATION MGMT DISCHARGED XR FOREARM 2V RT* - Complete d: 03/01/2022 14:57 LOINC: RIGHT FOREARM - 2 VIEWS:No e vidence of fracture. No osseous lesions. No radiopaque foreign body. Vascular calcification noted. Dictated by: TODD PIMENTEL MD Transcribed by: JENNIFER 02/25/2210:32 D Wednesday, February 23, 2022 8:01:58 AM [id number] Electronically Reviewed and Signed By: ANGÉLICA PIMENTEL MD 02/25/22 21:55 Copy for: 185 HEALTH INFORMATION MGMT DISCHARGED Social History Type Status Start Date End Date Code Code Syst em Sex Male Vital Signs Vital Sign Value Unit Camas Value Camas Unit Date/Time Recent/Initial? Code Code System Body Mass Index 35.87 kg/m2 02/22/2022 16:44 Initial 30488 -5 LOINC Systolic Blood Pressure 143 mm[Hg] 02/22/2022 16:44 Initial 8480- 6 LOINC Diastolic Blood Pressure 82 mm[Hg] 02/22/2022 16:44 Initial 8462- 4 LOINC Body Surface Area 2.37 m2 02/22/2022 16:44 Initial 3140- 1 LOINC Height 177.800 0 cm 70.00 in 02/22/2022 16:44 Initial 8302- 2 LOINC O2 Saturation 96 % 2021 16:44 Initial 39785 -5 LOINC Pulse 68.0 /min 02/22/2022 16:44 Initial 8867- 4 LOINC Respiration 16 /min 02/23/20 16:44 Initial 9279- 1 LOINC Temperature 36.4 Analia 97.5 F 02/23/20 16:44 Initial 8310- 5 LOINC Weight 113.40 kg 250.00 lbs 02/22/2022 16:44 Initial 17584 -7 LOINC Assessment You had the following [...] m Replacement of bilateral knee joints completed 493903041 SNOMEDCT Repair of rotator cuff completed 53927326 SN OMEDCT Problems Problem Start Date Resolved Date Status Code Code System TYPE 2 DIABETES active 88889039 SNOM ED-CT ANXIETY active 89446672 SNOMED-CT Allergies and Adverse Reactions Allergy Substance Reaction Severity Start Date Concern Status Code Code System ADHESIVE Rash (SNOMED-CT: 515481893) Active No Known Drug Allergies Active 558487798 SNOMED-CT Plan of Treatment No Data Found Encounters Encounter Diagnosis Start Date Code Code Sys tem Pain in right elbow 02/22/2022 SNOMED-C T Personal Care Team Section Performer Name Performer Role Active Date Inactive Da te
--- OUTSIDE RECORDS SUMMARY | 2024-03-03 13:35 | XMS_ITS | Encounter Summary ---
Author Organization [facility] [place] [address] Care Team Providers Care Baking Assistant Name Role Phone Boston Hernandez MD Primary Care Provider [phone] Reason for Visit * Reason Comments Follow Up Surgery Encounter Details Date Type Department Care Team (Late st Contact Info) Description 06/24/2015 1:40 PM EST [place] [address] Ebenezer Patino III, MD [facility] [place] [address] Erectile dysfunction, unspecified erectile dysfunction type Social [...] 3:00 PM EDT [place] [address] Manoj Vinson MD [facility] [place] [address] documented as of this encounter Visit Diagnoses Diagnosis Erectile dysfunction, unspecified erectile dysfunction type documented in this encounter Care Teams Baking Assistant Relationship Specialty Start Date End Date Boston Hernandez MD [facility] [address] [place] [address] PCP - General General Internal Medicine 05/27/1511/07 documented as of this encounter
--- OUTSIDE RECORDS SUMMARY | 2024-03-03 13:35 | XMS_ITS | Encounter Summary ---
Author Organization Formerly [facility] [place] [address] Care Team Providers Care Track Coach Name Role Phone Boston Hernandez MD Primary Care Provider [phone] Reason for Visit * Auth/Cert Specialty Diagnoses / Procedures Referred By Contac t Referred To Contact Diagnoses ED/PEYRONIE'S Procedures PRO INSERT, INFLATABLE PENILE PROSTHESIS PENILE PROSTHESIS, MULTI-COMPONENT Referral ID Status Reason Start Date Expiration Date Visits Re quested Visits Authorized [id number] 1 1 Encounter Details Date Type Department Care Team (Late st Contact Info) Description 06/09/2015 1:30 PM EST - 06/09/2015 4:57 PM EST Surgery [place] [address] Ebenezer Patino III, MD [facility] [place] [address] PENILE PROSTHESIS, MULTI-COMPONENT (WRVU 14.52) Social History [...] Yung Betancur Patient Age: 59 y.o. Language: Belarusian Race: White Ethnicity: Not [...] in the midshaft of the penis. Assessment: Txaqt-knqfl-ghhw-old gentleman with ED that is likely secondary [...] Hospital Course: Patient was admitted electively to [facility] via the same day surgery program and [...] If you need to brace yourself to poultry picker an object - it is too [...] more degrees The number for questions is [phone] before 5 PM weekdays and [phone] after 5 PM and weekends. FOLLOW-UP Follow-up appointment will be scheduled with Dr. Pelaez in 2 weeks for a wound check. Appointment will be mailed to you. Please call [phone] (clinic number for appointments) to confirm date and time of your appointment if you do not receive your apointment in 2-3 days. Future Appointments Date Time Provider Department Center 06/24/2015 1:40 PM Ebenezer Pation III, MD [facility] General Instructions None Future Appointments and Orders Future Appointments Provider Department Dept Phone 06/24/2015 1:40 PM Ebenezer Patino III, MD Urology [phone] Future Orders Complete By Expires Referral to Home Health - at DISCHARGE [[id number] CPT(R)] As directed Process Instructions: Scheduling Instructions: Comments: DOCUMENTATION FOR VNA SERVICES (INCLUDING THOSE PATIENTS WITH MEDICARE COVERAGE REQUIRING HOME VNA SERVICES AND/OR HOSPICE SERVICES) PATIENT'S LOCATION: [facility] [phone] (home) Cell: No relevant phone numbers on file. Signal Circuit Designer's Name: Tahmina- Spouse In discussion with the attending physician, it is certified that this patient is under their care and that they, or a Nurse Practitioner,Clinical Nurse specialist or Physician Scheduling Assistant who is working directly with them, [...] re health issues HOME HEALTH CARE AGENCY: [facility] PHONE: [phone] FAX: [phone] Start of care: Day after Discharge Please note that any additional orders needs or changes will need to be obtained from this patient's PCP: BOSTON HERNANDEZ MD [facility] [address] [place] [place] [address] All VNA agencies which cover the area [...] 06/24/2015 1:40 PM Ebenezer Patino III, MD [facility] Primary Care Provider: BOSTON HERNANDEZ MD [phone] Follow-up Recommendations for Providers: Please see discharge [...] was managed by the Urology Team at [facility]. If you have any questions or concerns, please feel free to contact us. Provider Contact Information: Urology Clinic: [facility] (after business hours): documented in this encounter [...] If you need to brace yourself to poultry picker an object - it is too [...] more degrees The number for questions is [phone] before 5 PM weekdays and [phone] after 5 PM and weekends. FOLLOW-UP Follow-up appointment will be scheduled with Dr. Pelaez in 2 weeks for a wound check. Appointment will be mailed to you. Please call [phone] (clinic number for appointments) to confirm date and time of your appointment if you do not receive your apointment in 2-3 days. Future Appointments Date Time Provider Department Center 06/24/2015 1:40 PM Ebenezer Patino III, MD [facility] CLIN documented in this [...] EST Office of Care Management (OCM) / Paper Bag Making Machinist(CM)/ Initial Assessment Discussed patient with Provider Team [...] ADVANCE DIRECTIVES: Not on file HEALTH /PRESCRIPTION COVERAGE:[facility] CURRENT HOME/COMMUNITY SERVICES/EQUIPMENT: None but will place VNA referral DME: Home Health Agency: [facility]. PHONE: [phone] FAX: [phone] Other: CULTURAL HISTORIAN REFERRAL: not needed at this time PRIMARY CARE PHYSICIAN: BOSTON HERNANDEZ MD [facility] [address] / [facility] [address] POTENTIAL DISCHARGE NEEDS: VNA referral and prescriptions. [...] stable. - Continue ordered post-operative care Seda iWld MD pgr [phone] * Mali Guillory RN [...] identified Problem: Coping, Compromised Family (Adult, NICU, [place], Obstetrics, Pediatric) Goal: Identify Signs and Symptoms and Related Risk Factors Signs and symptoms and related risk factors are identified upon initiation of Human Response Clinical Practice Guideline (CPG) Outcome: Ongoing (Interventions Implemented as Appropriate) Goal: Effective Family Coping Patient will demonstrate the desired outcomes. Outcome: Ongoing (Interventions Implemented as Appropriate) 06/09/152116 Coping, Compromised Family (Adult, NICU, [place], Obstetrics, Pediatric) Effective Family Coping making progress toward outcome * Op Note - Derick Bravo - 06/09/2015 6:30 PM EST [facility] Operative Note Patient Name: Yung Betancur : [id number] MR#: [id number] Case Date: 06/09/2015 Surgeon: Surgeon(s) and Role: [...] had received preoperative antibiotics (Vancomycin/gentamicin). A 16- Tunisian Richardson catheter was placed and the Lonestar [...] Operative Note Patient Name: Yung Betancur : [id number] MR#: [id number] Case Date: 06/09/2015 Surgeon: Surgeon(s) and Role: [...] PM EDT Office Visit Urology at [facility] [place] [address] Manoj Vinson MD [facility] [place] [address] documented as of this encounter Procedures Procedure Name Priority Date/Time Associated Diagnosis Comments IMPLANTABLE DEVICES SCAN 06/11/2015 12:00 AM EST SENIOR BUSINESS PROCESS ANALYST SCAN 06/11/2015 12:00 AM EST POCT GLUCOSE [...] SCAN EXT O RDR/RSLT * SCAN DOC: SENIOR BUSINESS PROCESS ANALYST (06/11/2015 12:00 AM EST) Anatomical Region Laterality Modality Other Scanning Provider MEDIA MGR SCAN EXT O RDR/RSLT * (ABNORMAL) POCT Glucose (06/10/2015 11:25 AM EST) Glucose, POC 280(H) 65 - 199 mg/dL [facility] Comment: Supplemental ranges: <140 mg/dL before meals [...] intervals supplied above were not validated at [facility]. Results from pediatric patients should be interpreted [...] the following links into your internet browser. [email or web address] Blood specimen (specimen) 06/09/2015 1:50 PM EST 06/09/2015 1:59 PM EST Narrative Resulting Agency Comment Spec In Lab Arabella Hatch MD CHEMISTRY ORDERABLES Performing Organization Address [facility] Co de Phone Number [facility] AN[facility] * POCT Glucose (06/09/2015 12:38 PM EST) Glucose, POC 146 65 - 199 mg/dL [facility] AN[facility] Comment: Supplemental ranges: <140 mg/dL before meals <180 mg/dL all other times of the day Blood specimen (specimen) 06/09/2015 12:38 PM EST 06/09/2015 12:38 PM EST Ebenezer Patino III, MD POINT OF CARE AGUSTÍN T ORDERABLES Performing Organization Address [facility] Phone Number [facility] documented in this encounter Visit Diagnoses Not [...] Xiao) 0904 (Given - Provider: Laura Vallecillo, AMTEO) gabapentin (NEURONTIN) capsule 600 mg (CANCELED) 600 [...] Routine documented in this encounter Care Teams Track Coach Relationship Specialty Start Date End Date Boston Hernandez MD [facility] [address] [place] [address] PCP - General General Internal Medicine 05/27/1511/07 documented as of this encounter
--- OUTSIDE RECORDS SUMMARY | 2024-03-03 13:35 | XMS_ITS | Encounter Summary ---
Author Organization [facility] Address [address] [place] [address] Care Team Providers Care Sheriff'S Officer Name Role Phone Yung Horn MD Primary Care Provider [phone] Encounter Details Date Type Department Care Team (Late st Contact Info) Description 10/19/2021 Lab Requisition [facility] Pathology & Laboratory Medicine - Main [address] [id number] Outr Resulting Lab, Provider Social History Tobacco [...] Neg and Giardia Antigen Neg 12:20 EDT [facility] Feces SPECIMEN FROM RECTUM / Unknown 10/18/2021 13:45 EDT 10/19/2021 17:01 EDT Provider Outr Resulting Lab MICROBIOLOGY - GENERAL ORDERABLES [facility] [address] [place] [address] documented in this encounter Visit Diagnoses Not on filedocumented in this encounter Care Teams Sheriff'S Officer Relationship Specialty Start Date End Date Yung Horn MD [address] [place] [address] PCP - General 01/26/18 documented as of this encounter
--- OUTSIDE RECORDS SUMMARY | 2024-03-03 13:35 | XMS_ITS | Encounter Summary ---
Author Organization [facility] Address [address] [place] [address] Care Team Providers Care Dice Manager Name Role Phone Yung Horn MD Primary Care Provider [phone] Encounter Details Date Type Department Care Team (Latest Contact Info) Description 10/30/2020 Lab Requisition [facility] Pathology & Laboratory Medicine - [facility] [address] [place] [address] Krystin Coe, DO [address] [place], [place] [address] Obesity, unspecified; Shortness of breath; Other postprocedural [...] with no specific pathologic features. 11/03/2020 12:05 [facility] Attestation There was significant resident/fellow involvement in the diagnostic evaluation of this case. By the signature below, the attending physician certifies that they have personally conducted a gross and/or microscopic examination of the described specimens and rendered or confirmed the above diagnosis. 11/03/2020 12:05 [facility] at 1205 Clinical History Anastomotic stricture of the gastrojejunostomy site; history of tubular adenoma; diverticula 11/03/2020 12:05 [facility] Gross Description A. Received in [...] EUGENIO HERNÁNDEZ(ASCP) 10/30/2020 16:36 11/03/2020 12:05 EDT [facility] Resident/Fell ow: Ismael Mcmahan MD 11/03/2020 12:05 T [facility] Performing Lab [facility] 11/03/2020 12:05 [facility] Scanned Images 11/03/2020 12:05 [facility] Tissue ENTIRE SMALL INTESTI NE [...] 16:03 EDT Krystin Coe DO PATHOLOGY ORDERABLES [facility] [address] [place] [address] documented in this encounter Visit Diagnoses Diagnosis [...] uncontrolled documented in this encounter Care Teams Dice Manager Relationship Specialty Start Date End Date Yung Horn MD [address] [place] [address] PCP - General 01/26/18 documented as of this encounter
--- OUTSIDE RECORDS SUMMARY | 2024-03-03 13:35 | XMS_ITS | Encounter Summary ---
Author Organization [facility] Address [address] [place] [address] Care Team Providers Care Paint Line Production Supervisor Name Role Phone Yung Horn MD Primary Care Provider [phone] Encounter Details Date Type Department Care Team (Late st Contact Info) Description 07/31/2020 Lab Requisition [facility] Pathology & Laboratory Medicine - [facility] [address] [place], [place] [address] Outr Resulting Lab, Provider Social History Tobacco [...] in accordance with CLIA regulations, College of [place] Pathologists (CAP) guidelines (Sep 26, 2019), and FDA guidance (Sep 07, 2019). This test is only for use under the Food and Drug Administration's Emergency Use Authorization. Swab ENTIRE NASOPHARYNX / Unknown 07/31/2020 8:31 EST 07/31/2020 15:47 EST Provider Outr Resulting Lab MICROBIOLOGY - GENERAL ORDERABLES [facility] [place] * COVID-19 TESTING (07/31/2020 8:31 EST) COVID-19 rt-PCR Result NEGATIVE Negative 08/02/2020 10:18 EST [facility] Comment: 2019-novel Coronavirus (2019-nCoV) not detected [...] in accordance with CLIA regulations, College of [place] Pathologists (CAP) guidelines (Sep 26, 2019), and FDA guidance (Sep 07, 2019). This test is only for use under the Food and Drug Administration's Emergency Use Authorization. Performing Lab [facility] 08/02/2020 10:18 EST [facility] Swab 07/31/2020 8:31 EST 07/31/2020 15:47 EST Provider Outr Resulting Lab MICROBIOLOGY - GENERAL ORDERABLES Performing Organization Address City/State/[facility] [[email or web address]] Co de Phone Number [facility] [address] [place] [address] [facility] [place] [place] documented in this encounter Visit Diagnoses Not on filedocumented in this encounter Care Teams Paint Line Production Supervisor Relationship Specialty Start Date End Date Yung Horn MD [place] [place] [address] PCP - General 01/26/18 documented as of this encounter
--- OUTSIDE RECORDS SUMMARY | 2024-03-03 13:35 | XMS_ITS | Encounter Summary ---
Author Organization [facility] Address [address] [place] [address] Care Team Providers Care Elevator Examiner Name Role Phone Yung Horn MD Primary Care Provider [phone] Reason for Visit * (Routine/Next Available) - Receiving Office to Obtain Authorization Specialty Diagnoses / Procedures Referred By Marisela ramesh Referred To Contact Procedures XR OUTSIDE IMAGES MSK Imaging, External Referral ID Status Reason Start Date Expiration Date Visits Requested Visits Authorized [id number] Receiving Office to Obtain Authorization 2 1 1 Encounter Details Date Type Department Care Team (Latest Contact Info) Description 04/20/2022 0:05 EDT - 04/20/2022 0:09 EDT Hospital Encounter [facility] Secondary Reads [place] Discharge Disposition: Home [...] on filedocumented in this encounter Care Teams Elevator Examiner Relationship Specialty Start Date End Date Yung Horn MD [address] [place] [address] PCP - General 01/26/18 documented as of this encounter
--- OUTSIDE RECORDS SUMMARY | 2024-03-03 13:35 | XMS_ITS | Encounter Summary ---
Author Organization [facility] [place] [address] Care Team Providers Care Tmr Teacher Name Role Phone Maritza Faustin MD Primary Care Provider [phone] Reason for Visit * Reason Comments Abnormal Penile Curvature Encounter Details Date Type Department Care Team (Late st Contact Info) Description 04/23/2015 9:20 AM [place]T [place] [address] Ebenezer Patino III, MD [facility] [place] [address] Erectile dysfunction, unspecified erectile dysfunction type; Peyronie's [...] in the midshaft of the penis. Assessment: Uuzrh-lygpg-gagn-old gentleman with ED that is likely secondary [...] 3:00 PM [place]T [place] [address] [facility] [place] [address] documented as of this encounter Procedures Procedure [...] Lab Ebenezer Patino III, MD MICROBIOLOGY - [facility] ORDERABLES [facility] documented in this encounter Visit Diagnoses Diagnosis Erectile dysfunction, unspecified erectile dysfunction type Peyronie's disease documented in this encounter Care Teams Tmr Teacher Relationship Specialty Start Date End Date Maritza Faustin MD [address] [place] [address] PCP - General 07/25/14 05/26/15 documented as of this encounter
--- OUTSIDE RECORDS SUMMARY | 2024-03-03 13:35 | XMS_ITS | Encounter Summary ---
Author Organization [facility] Address [address] [place] [address] Care Team Providers Care Database Engineer Name Role Phone Yung Horn MD Primary Care Provider [phone] Encounter Details Date Type Department Care Team (Late st Contact Info) Description 01/29/2018 Results Only Imaging [facility] Total Joint Program - [address] [address] Roosevelt Miller MD MSc [facility] [address] [place] [address] Social History Tobacco Use Types Packs/Day [...] filedocumented in this encounter Care Teams Database Engineer Relationship Specialty Start Date End Date Yung Horn MD [address] [place] [address] PCP - General 01/26/18 documented as of this encounter
--- NOTE | 2024-03-03 14:05 | ED.GENADUL_ITS ---
Discharge Plan Disposition Patient Disposition: Home Condition: Stable Discharge Details Clinical Impression: Postoperative wound infection, GERD (gastroesophageal reflux disease), Hypertension, Hyperlipidemia, Diabetes mellitus type II, uncontrolled, S/P gastric bypass, Liver cirrhosis secondary to nonalcoholic steatohepatitis (HERR) Primary Care Provider: Yung Horn ED Provider: Zandra Dean Home Meds and New Rx's Prescriptions: No Action tamsulosin [Flomax] 0.4 mg capsule 0.8 mg PO HS Qty: 180 3RF Patient Comments: takes in pm Trulicity 1.5 mg/0.5 mL pen injector 1.5 mg subcut QWEEK Patient Comments: every day acetaminophen 500 mg tablet 1,000 mg PO Q6H PRN metformin [Glucophage] 1,000 MG tablet 1,000 mg PO BID diclofenac sodium [Voltaren Arthritis Pain] 1 % gel 2 g topical QID Qty: 50 0RF Rx Instructions: apply to single elbow, wrist or hand; for hand includes palm/fingers/back of hand glipizide 10 mg tablet extended release 24hr 10 mg PO BID Patient Comments: TK 2 TS PO D FOR BS gabapentin 800 mg tablet 800 mg PO TID Patient Comments: TAKE 1 TABLET BY MOUTH THREE TIMES DAILY FOR PAIN pantoprazole 40 mg tablet,delayed release (DR/EC) 40 mg PO BID Patient Comments: TK 1 T PO BID venlafaxine 225 mg tablet extended release 24hr 225 mg PO DAILY Patient Comments: 150 in am 75 at night metronidazole 500 mg tablet 500 mg PO Q8H Qty: 21 0RF ciprofloxacin HCl 500 mg tablet 500 mg PO BID Qty: 14 0RF Discharge Instructions Instructions: Wound Infection Additional Instructions: You were seen in the emergency department today for evaluation of a wound infection. In our department a full physical examination performed, had laboratory studies that were reassuring and received IV fluids for hydration. I provided you with the first dose of your antibiotic, and have given you a 3-day course of antibiotics. However, you will need to fill your prescription at the [facility] in [place], and need to do so before you run out of the medicines that I gave you today, to avoid gaps in your treatment. You need to take this antibiotic for a full course of 10 days, even if you start to feel better. We provided you with a brochure for community connections, which sometimes has funds to assist with paying for medications. You should follow-up with your urologist at your scheduled visits, and give them a call to see if they want to see you sooner due to this infection. Please maintain good hydration and nutrition and thank you for allowing us to be part of your care. HPI General Mode of arrival: ambulatory . Date/Time Provider Initiated Documentation: 03/03/24 13:23 . Limitations to Documentation: no limitations . Information obtained by: patient and family . HPI Narrative: MDM: In brief, this is a 68-year-old male patient presenting for evaluation of a postoperative wound infection. My differential includes but is not limited to abscess, cellulitis, seroma the patient has no urinary symptoms to suggest UTI. I considered metabolic and electrolyte derangement, dehydration, kidney injury, liver dysfunction, anemia.. I am reassured by the patient's general hemodynamic stability, his lack of fever, and have a lower concern for bacteremia/sepsis. We will obtain laboratory studies to include CBC, CMP, and provide the patient with a liter of IV fluids. I will request the records from [facility] to ensure that my understanding of his needs and any additional diagnostic workup is complete. I will reach out to his pharmacy at [facility] to clarify the dosing and duration of the antibiotics that his prior provider wished him to start. At this time, I do not see any indication for advanced imaging. ED Course: I independently interpreted the laboratory studies, which show no significant leukocytosis, severe anemia, or thrombocytopenia. The chemistry panel is without evidence of electrolyte abnormality, kidney dysfunction, or liver injury. I provided the patient with his first dose of Augmentin after verifying the patient's prescription at the pharmacy and by review of the [facility] medical records. I was able to prescribe the patient 3 days of Augmentin, and discussed the importance of obtaining his prescription and completing his course to avoid antibiotic resistance due to partially treated infection. The patient was given referral to community connections to discuss potential one-time financial assistance in affording his medications. On reassessment the patient is feeling much better and is understanding of the follow-up plan and the need to complete his antibiotic course. At this time, the patient has had a full medical evaluation and is safe for discharge to home. They are hemodynamically stable, ambulatory, and tolerating PO. They are understanding of the follow-up plan and return precautions. They left our facility without incident. Zandra Dean MD HPI: This is a 68-year-old male patient with a past medical history of dementia, gastric bypass, HERR cirrhosis, hyperlipidemia, and hypertension. He is presenting for evaluation of a postoperative infection. The patient had bladder surgery with Dr. Vinson at [facility] on the second of this month. This was complicated by a postoperative wound infection, patient was started on Bactrim and completed that course, but has noted ongoing purulent drainage. He was seen in the [facility] emergency department yesterday, at which time per patient and report he was told to start amoxicillin. He went to the pharmacy up there, and states that he did not have the money to purchase the antibiotic, and so presented here for reevaluation and assistance. The patient has not had fevers or chills, is eating and drinking normally, has not had changes in his bowel or bladder habits from his normal. The patient was concerned that he was also dehydrated, states that his blood pressure went low when he stood up and that he is not feeling very well. He is not experiencing significant pain, and has a follow-up scheduled with his urologist on March 13. Exam: Gen: Awake and alert, in no apparent distress HEENT: Non-icteric sclera Neck: Supple Lungs: No apparent respiratory distress, normal respiratory effort. CV: Appears well perfused Abdomen: Non-distended, soft, nontender to palpation. The patient has a low transverse incision, with 2 small areas with expression of small volume purulent material, no surrounding induration, swelling, warmth. MSK: Moves 4 extremities without apparent limitation in ROM Skin: Visualized skin without rashes, cyanosis. Neuro: Normal Gait, no obvious focal deficits or facial asymmetry. Speaks in full, clear sentences. Some memory issues regarding medical lead, but alert and answers questions appropriately Psych: Appropriate for situation. Related Data Home Medications ?Medication ?Instructions ?Recorded ?Confirmed metformin 1,000 mg tablet 1,000 mg PO BID 11/27/17 01/19/24 (Glucophage) gabapentin 800 mg tablet 800 mg PO TID 07/02/20 01/19/24 glipizide 10 mg tablet, extended 10 mg PO BID 07/02/20 01/19/24 release 24 hr pantoprazole 40 mg tablet,delayed 40 mg PO BID 07/02/20 01/19/24 release venlafaxine 225 mg tablet,extended 225 mg PO DAILY 12/24/20 07/12/24 release 24 hr diclofenac sodium 1 % topical gel 2 g topical QID #50 grams 11/13/20 01/19/24 (Voltaren Arthritis Pain) acetaminophen 500 mg tablet 1,000 mg PO Q6H PRN 10/26/21 01/19/24 dulaglutide 1.5 mg/0.5 mL 1.5 mg subcut QWEEK 10/26/21 01/19/24 [facility] tamsulosin 0.4 mg capsule (Flomax) 0.8 mg (2 x 0.4 mg) PO HS #180 caps 09/27/23 01/19/24 ciprofloxacin HCl 500 mg tablet 500 mg PO BID #14 tabs 01/19/24 metronidazole 500 mg tablet 500 mg PO Q8H #21 tabs 01/19/24 Previous Rx's ?Medication ?Instructions ?Recorded diclofenac sodium 1 % topical gel 2 g topical QID #50 grams 11/13/20 (Voltaren Arthritis Pain) tamsulosin 0.4 mg capsule (Flomax) 0.8 mg (2 x 0.4 mg) PO HS #180 caps 09/27/23 ciprofloxacin HCl 500 mg tablet 500 mg PO BID #14 tabs 01/19/24 metronidazole 500 mg tablet 500 mg PO Q8H #21 tabs 01/19/24 Allergies Allergy/AdvReac Type Severity Reaction Status Date / Time adhesive Allergy Intermediate blisters Verified 01/09/24 11:05 atorvastatin Allergy Intermediate .chest Verified 01/09/24 11:05 pain/diaphroresis General Stated Complaint: RashLesion NASIMA: 3 Course Vital Signs Vital signs: Vital Signs Temperature 37.2 C 03/03/24 13:30 Pulse 100 H 03/03/24 13:30 Respiratory Rate 15 03/03/24 13:30 Blood Pressure 107/67 03/03/24 13:30 Pulse Oximetry 94 03/03/24 13:30 Temperature 37.2 C 03/03/24 13:30 Pulse 100 H 03/03/24 13:30 Respiratory Rate 15 03/03/24 13:30 Blood Pressure 107/67 03/03/24 13:30 Blood Pressure Position Sitting 03/03/24 13:30 Pulse Oximetry 94 03/03/24 13:30 Oxygen Delivery Method Room Air 03/03/24 13:30 Oxygen Flow Rate 0 03/03/24 13:30 Medical Decision Making Quality:SDOH Health Related Social Needs: No Data to Display PFSH All Active Problems (Updated 03/03/24 @ 14:55 by Zandra Dean MD) Postoperative wound infection (Acute) Peyronie's disease (Acute) Memory impairment (Acute) Osteoarthritis of knees, bilateral (Acute) Peroneal tendinitis (Acute) Mass of parotid gland (Acute) Closed fracture of finger of left hand (Acute 09/29/21) small finger Hiatal hernia (Chronic) Foot pain, right (Acute) Cellulitis of foot, right (Acute) Other sprain of right shoulder joint, initial encounter (Acute) Fall (Acute) SOB (shortness of breath) (Acute) Shortness of breath at rest (Acute) Weakness with dizziness (Acute) Anastomotic stricture of gastrojejunostomy (Acute) Diabetes mellitus type II, uncontrolled (Chronic) S/P gastric bypass (Chronic) Liver cirrhosis secondary to nonalcoholic steatohepatitis (HERR) (Acute) Degenerative cervical spinal stenosis (Chronic 12/23/14) Hyperlipidemia (Acute 05/16/13) Obesity (BMI 35.0-39.9 without comorbidity) (Acute) Hypertension (Acute) GERD (gastroesophageal reflux disease) (Acute) Dysphagia (Chronic) Chest pain (Acute) Medical History GERD (gastroesophageal reflux disease) Alcoholic cirrhosis of liver without ascites Non-insulin dependent type 2 diabetes mellitus Dementia Per pt. states he still signs for himself Low back pain Chest pain Per pt. this was related to when he had gastric bypass he had scarring over his esophagus, and it wasn't cardiac in nature Elevated bilirubin Abnormality of penis (11/18/14) Anxiety (07/16/14) Benign neoplasm of colon (08/15/11) Depression (07/16/14) Erectile dysfunction (06/19/14) Sensorineural hearing loss, bilateral (01/06/17) BPH (benign prostatic hyperplasia) Surgical History Hx of cholecystectomy 09/15/23 pt denies he has had a cholecyctectomy. He reports he has had a gastric bypass. Mayur Franco RN Hx of total knee replacement Bilateral. History of colonoscopy (~10/30/20) History of esophagogastroduodenoscopy (EGD) (~08/13/21) 10/30/20 H/O gastric bypass 2010 bunionectomy (07/18/14) Left Dr Márquez Rotator Cuff Repair Repair, ACL Repair of inguinal hernia Family History Mother Alzheimer disease Social History Smoking/Tobacco Use Status: Former Tobacco Use Quit Date: 07/10/85 Smoking risk assessment performed?: Yes Alcohol Intake: former Drug use: Never Substance use type: does not use Household members: spouse Housing: house current occupation: retired Current gender identity: male What is your relationship status?: Panel score (0-1 are the most socially isolated patients): 1 Do you feel safe at home: Yes (unable to assess privately) Do you feel safe in your relationship?: Yes
[2024-03-03 14:07] LABS: Abs Immature Grans 0.06 10^3/uL (0.0-0.06); Absolute Basophil Count 0.04 10^3/uL (0.0-0.2); Absolute Eosinophil Count 0.12 10^3/uL (0.0-0.7); Absolute Lymphocyte Count 1.54 10^3/uL (1.2-3.4); Absolute Monocyte Count 0.54 10^3/uL (0.1-0.8); Absolute Neutrophil Count 5.58 10^3/uL (1.2-6.7); Basophils % 0.5 %; Eosinophils % 1.5 %; HCT 39.8 % (40.0-50.0); HGB 13.1 g/dL (13.5-17.5); Immature Grans % 0.8 %; Lymphocytes % 19.5 %; MCH 29.4 pg (27.0-33.0); MCHC 32.9 % (32.0-36.0); MCV 89 fL (80-95); MPV 9.2 fL (8.0-11.0); Monocytes % 6.9 %; Neutrophils % 70.8 %; Platelet Count 277 10^3/uL (130-400); RBC 4.45 10^6/uL (4.36-5.78); RDW-SD 42.3 fL; WBC 7.88 10^3/uL (4.4-10.8)
[2024-03-03] MEDS: Lactated Ringers 1,000 ML 1000 ML IV (14:16)
[2024-03-03 14:22] LABS: ALT 21 U/L (16-63); AST 17 U/L (15-37); Albumin 3.4 g/dL (3.4-5.0); Alkaline Phosphatase 88 U/L (46-116); Anion Gap 11.4 mmol/L (3-11); BUN 14 mg/dL (7-18); CO2 24.6 mmol/L (21.0-32.0); CREATININE 1.3 mg/dL (0.70-1.30); Calcium 8.8 mg/dL (8.5-10.1); Chloride 106 mmol/L (98-107); Estimated GFR 60.21 (mL/min/1.73m2); Glucose 103 mg/dL (74-106); Potassium 4.6 mmol/L (3.5-5.1); Sodium 142 mmol/L (136-145); Total Protein 7.3 g/dL (6.4-8.2)
[2024-03-03] MEDS: Amoxicillin 875/Clav. 125 TAB PO (15:08)
== END 2024-03-03 15:09 | disposition home or self-care (01) ==
PROVIDERS: Emergency Provider Emergency Medicine; PCP Family Medicine
DX: T81.41XA Infection following a procedure, superficial incisional surgical site, initial encounter (principal); E11.9 Type 2 diabetes mellitus without complications; I10 Essential (primary) hypertension; Z98.84 Bariatric surgery status; Z79.84 Long term (current) use of oral hypoglycemic drugs; Z79.85 Long-term (current) use of injectable non-insulin antidiabetic drugs; Z87.891 Personal history of nicotine dependence
CPT/HCPCS: 36415; 80053; 96360; 99284; 85025; 87070; 87205

== ENCOUNTER 2024-09-16 09:44 | Emergency (ER) | payer MEDICARE, SELFPAY ==
[2024-09-16 10:00] VITALS: BP 135/76; PULSE 96; RESP 16; TEMP 36.5; O2SAT 94
--- NOTE | 2024-09-16 11:45 | DI.CT_ITS ---
Exam(s) CT CERVICAL SPINE WO EXAM: CT CERVICAL SPINE WO CLINICAL HISTORY: fall bilateraly arm paresthesias, pain c4-6. TECHNIQUE: Imaging Protocol: Axial computed tomography images with coronal and sagittal reformatted images were created and reviewed COMPARISON: CT CT HEAD CERVICAL SPINE WO from 10/24/[address] CHEST WO from 09/16/2024 FINDINGS: Bones: No acute fracture or subluxation. There is a fracture seen in the posterior aspect of the left 2nd rib. Its appearance suggests a subacute healing fracture. Moderately severe cervical spondylos is is present. There is neural foraminal narrowing at C5-6 and C6-C7 bilaterally. The findings are most marked at C6-C7. Soft Tissues: Unremarkable. Lung Apices: Clear. IMPRESSION: 1. No acute fracture or subluxation seen in the cervical spine. 2. Subacute healing fracture of the posterior left 2nd rib. 3. Degenerative changes seen in the cervical spine. There is bilateral neural foraminal narrowing of varying degrees at C5-6 and C6-C7. RADIATION DOSE DELIVERED: 396.38mGy.cm Total DLP 396.38mGy.cm Total DLP DATA REPOSITORY: All CT scans at this facility are submitted to the National Radiology Data Registry (NRDR) Dose Index Registry (DIR) with the [employer] (ACR). RADIATION OPTIMIZATION: All CT scans at this facility use at least one of these dose optimization te chniques: automated exposure control; mA and/or kV adjustment per patient size (includes targeted exa ms where dose is matched to clinical indication); or iterative reconstruction.
--- NOTE | 2024-09-16 13:39 | DI.CT_ITS ---
Exam(s) CT THORACIC SPINE WO CT CHEST WO EXAM: CT CHEST WO and CT thoracic spine without CLINICAL HISTORY: fall with bilateral arm paresthesias, sob. TECHNIQUE: Imaging protocol: Axial computed tomography images were obtained and coronal and sagittal reformatted images were created and reviewed. Lung Computer Aided Detection (CAD) was utilized. COMPARISON: CT CT CHEST PE ABD PELVIS W from 01/19/2024 FINDINGS: Tracheobronchial tree: Patent where visualized. No bronchiectasis is present. Pulmonary parenchyma: There are atelectatic changes seen in the lung bases. No focal consolidating i nfiltrates are seen. Mild peripheral interstitial prominence is seen which may reflect chronic fibro sis. These findings are similar to prior examinations. Mediastinum and Velma: No dominant adenopathy or fluid collection. The esophagus is unremarkable. Thyroid gland: Unremarkable. Pleura: No effusion or pneumothorax. Heart: The heart is not dilated. Coronary artery calcification is present. No pericardial effusion. Aorta: Thoracic aorta non-dilated. Atherosclerotic calcification is present. Upper abdomen: Findings of prior gastric surgery are present. Patient is status post cholecystectom y. Lymph nodes: Within normal limits. Soft tissues: Unremarkable. Bones:Within normal limits for the patient's age. Postsurgical changes of prior right rotator cuff s urgery. There are fractures involving the posterior aspects of the left 2nd and 4th ribs. There is some callus formation about the fracture suggesting these are subacute/healing fractures. No acute d isplaced rib fractures are seen at this time. CT thoracic spine without: No acute fractures or subluxations are present. Age-appropriate degenerat neida changes are seen in the thoracic spine. IMPRESSION: 1. No acute pulmonary process. 2. Subacute fractures of the left 2nd and 4th ribs which show evidence of healing. 3. No acute fractures or subluxations in the thoracic spine. RADIATION DOSE DELIVERED: 454.41mGy.cm Total DLP 454.41mGy.cm Total DLP DATA REPOSITORY: All CT scans at this facility are submitted to the National Radiology Data Registry (NRDR) Dose Index Registry (DIR) with the [employer] (ACR). RADIATION OPTIMIZATION: All CT scans at this facility use at least one of these dose optimization te chniques: automated exposure control; mA and/or kV adjustment per patient size (includes targeted exa ms where dose is matched to clinical indication); or iterative reconstruction.
[2024-09-16 13:55] VITALS: BP 155/88; PULSE 76; RESP 18; O2SAT 94
--- NOTE | 2024-09-16 14:24 | ED.GENADUL_ITS ---
Discharge Plan Disposition Patient Disposition: Home Condition: Stable Discharge Details Clinical Impression: Fracture, ribs Primary Care Provider: Orlando Silverman ED Provider: Mary Mccullough Home Meds and New Rx's Prescriptions: New cyclobenzaprine 10 mg tablet 10 mg PO TID PRNQty: 14 0RF Continued tamsulosin [Flomax] 0.4 mg capsule 0.8 mg PO HS Qty: 180 3RF Patient Comments: takes in pm Trulicity 1.5 mg/0.5 mL pen injector 1.5 mg subcut QWEEK Patient Comments: every day acetaminophen 500 mg tablet 1,000 mg PO Q6H PRN metformin [Glucophage] 1,000 MG tablet 1,000 mg PO BID diclofenac sodium [Voltaren Arthritis Pain] 1 % gel 2 g topical QID Qty: 50 0RF Rx Instructions: apply to single elbow, wrist or hand; for hand includes palm/fingers/back of hand glipizide 10 mg tablet extended release 24hr 10 mg PO BID Patient Comments: TK 2 TS PO D FOR BS gabapentin 800 mg tablet 800 mg PO TID Patient Comments: TAKE 1 TABLET BY MOUTH THREE TIMES DAILY FOR PAIN pantoprazole 40 mg tablet,delayed release (DR/EC) 40 mg PO BID Patient Comments: TK 1 T PO BID venlafaxine 225 mg tablet extended release 24hr 225 mg PO DAILY Patient Comments: 150 in am 75 at night ciprofloxacin HCl 500 mg tablet 500 mg PO BID Qty: 14 0RF Discharge Instructions Instructions: Rib Fracture or Bruised Rib ED Additional Instructions: Take Tylenol 500 mg 3 times daily as needed for pain Flexeril at night as needed for discomfort, do not operate your vehicle for 8 hours after taking this medication, do not combine with alcohol you may apply Lidoderm patches over the area of tenderness Please return earlier should you have new or worsening complaints including chest pain or shortness of breath Referrals: Orlando Silverman [Primary Care Provider] - 2 days Discharge Data Discharge Date/Time-TO BE ENTERED AT DEPARTURE: 09/16/24 14:46 HPI General Date/Time Provider Initiated Documentation: 09/16/24 10:08 . HPI Narrative: The patient is a 68-year-old male with a history of gastric bypass, hype rtension, and hyperlipidemia who presents for evaluation of back pain. He reports slipping on ice and falling backward twice within a week, landing on his back both times. He did not experience any loss of consciousness or head injury. He is currently seeking medical attention due to intermittent paresthesias in both hands and persistent, slightly worsening pain. The pain originates from the left side of his thorax and radiates around to the right. He does not experience shortness of breath but admits to pain during deep breathing. He also reports no nausea, vomiting, history of coagulopathy, or associated abdominal discomfort. Related Data Home Medications ?Medication ?Instructions ?Recorded ?Confirmed metformin 1,000 mg tablet 1,000 mg PO BID 11/27/17 09/16/24 (Glucophage) gabapentin 800 mg tablet 800 mg PO TID 07/02/20 09/16/24 glipizide 10 mg tablet, extended 10 mg PO BID 07/02/20 09/16/24 release 24 hr pantoprazole 40 mg tablet,delayed 40 mg PO BID 07/02/20 09/16/24 release venlafaxine 225 mg tablet,extended 225 mg PO DAILY 07/02/20 09/16/24 release 24 hr diclofenac sodium 1 % topical gel 2 g topical QID #50 grams 11/13/20 09/16/24 (Voltaren Arthritis Pain) acetaminophen 500 mg tablet 1,000 mg PO Q6H PRN 10/26/21 09/16/24 dulaglutide 1.5 mg/0.5 mL 1.5 mg subcut QWEEK 10/26/21 09/16/24 subcutaneous pen injector (Trulicity) tamsulosin 0.4 mg capsule (Flomax) 0.8 mg (2 x 0.4 mg) PO HS #180 caps 09/27/23 09/16/24 ciprofloxacin HCl 500 mg tablet 500 mg PO BID #14 tabs 01/19/24 09/16/24 cyclobenzaprine 10 mg tablet 10 mg PO TID PRN #14 tabs 09/16/24 Previous Rx's ?Medication ?Instructions ?Recorded diclofenac sodium 1 % topical gel 2 g topical QID #50 grams 11/13/20 (Voltaren Arthritis Pain) tamsulosin 0.4 mg capsule (Flomax) 0.8 mg (2 x 0.4 mg) PO HS #180 caps 09/27/23 ciprofloxacin HCl 500 mg tablet 500 mg PO BID #14 tabs 01/19/24 cyclobenzaprine 10 mg tablet 10 mg PO TID PRN #14 tabs 09/16/24 Allergies Allergy/AdvReac Type Severity Reaction Status Date / Time adhesive Allergy Intermediate blisters Verified 09/16/24 10:07 atorvastatin Allergy Intermediate .chest Verified 09/16/24 10:07 pain/diaphroresis General Stated Complaint: Orthopedic NASIMA: 4 Exam Narrative Exam Narrative: General Appearance: The patient is alert and oriented. Vital signs: Within normal limits. HEENT: Pupils are equal, round, and reactive to light and accommodation. Respiratory: Within normal limits. Gastrointestinal: There is no tenderness in the abdomen, no abdominal wall or muscle tenderness, and no CVA tenderness. Back, Musculoskeletal: There is reproducible tenderness over the left ribs. There is tenderness over the right scapula as well. Mild cervical spine tenderness is present. Extremities: Distal pulses are intact. Strength and sensation are intact in all four extremities. Skin: Warm and dry, no rash. Neurological: The patient's GCS score is 15. Course Vital Signs Vital signs: Vital Signs Temperature 36.5 C 09/16/24 10:00 Pulse 96 H 09/16/24 10:00 Respiratory Rate 16 09/16/24 10:00 Blood Pressure 135/76 09/16/24 10:00 Pulse Oximetry 94 09/16/24 10:00 Temperature 36.5 C 09/16/24 10:00 Pulse 76 09/16/24 13:55 Respiratory Rate 18 09/16/24 13:55 Respiratory Effort Normal, Non-Labored 09/16/24 13:55 Respiratory Depth Normal 09/16/24 13:55 Respiratory Pattern Normal 09/16/24 13:55 Blood Pressure 155/88 H 09/16/24 13:55 Blood Pressure Mean 110 09/16/24 13:55 Blood Pressure Position Sitting 09/16/24 13:55 Pulse Oximetry 94 09/16/24 13:55 Oxygen Delivery Method Room Air 09/16/24 13:55 Oxygen Flow Rate 0 09/16/24 13:55 Pain Level 8 09/16/24 10:00 Medical Decision Making Imaging CT chest, cervical spine and thoracic spine shows evidence of left sided 2nd and 4th rib fractures posteriorly, no pneumothorax appreciated, cervical spine without acute abnormality. No evidence of pulmonary contusion on CT scan. Initial Assessment: 68-year-old male with a history of gastric bypass, hypertension, hyperlipidemia, presenting with intermittent paresthesias to bilateral hands and persistent, slightly worsening pain radiating from the left side of his thorax around to the right. Pain with deep breathing, no shortness of breath, nausea, vomiting, or abdominal discomfort. ED Course: - CT chest, cervical spine, and thoracic spine ordered due to age. - CT scan revealed left-sided 2nd and 4th rib fractures posteriorly, no pneumothorax, no acute abnormalities in the cervical spine. - Radiology interpretation on my review showed no evidence of pulmonary contusion on CT scan. - Administered injection of Toradol. - Provided Flexeril for home use. - Encouraged to continue deep inhalations to prevent pneumonia. Final Assessment: CT scan showed left-sided 2nd and 4th rib fractures, no pneumothorax or acute cervical spine abnormalities. Treatment included Toradol injection and Flexeril for home use. Advised deep inhalations to prevent pneumonia. Clinical Impression: - Back pain - Left-sided 2nd and 4th rib fractures Disposition: - Discharge MDM Components Evaluation: - Number of Differential Diagnoses or Management Options: Back pain, rib fractures - Amount and Complexity of Data Reviewed: CT chest, cervical spine, thoracic spine, radiology interpretation - Risk of Complication and Morbidity or Mortality: Moderate due to age and rib fractures, risk of pneumonia if deep inhalations not maintained. Quality:SDOH Health Related Social Needs: Health related social needs feeling lonely/isolated (Z 60.8), education (Z55.6) PFSH All Active Problems (Updated 09/16/24 @ 14:16 by EUGENIO Thakkar) Fracture, ribs (Acute) Peyronie's disease (Acute) Memory impairment (Acute) Osteoarthritis of knees, bilateral (Acute) Peroneal tendinitis (Acute) Mass of parotid gland (Acute) Closed fracture of finger of left hand (Acute 09/29/21) small finger Hiatal hernia (Chronic) Foot pain, right (Acute) Cellulitis of foot, right (Acute) Other sprain of right shoulder joint, initial encounter (Acute) Fall (Acute) SOB (shortness of breath) (Acute) Shortness of breath at rest (Acute) Weakness with dizziness (Acute) Anastomotic stricture of gastrojejunostomy (Acute) Diabetes mellitus type II, uncontrolled (Chronic) S/P gastric bypass (Chronic) Liver cirrhosis secondary to nonalcoholic steatohepatitis (HERR) (Acute) Degenerative cervical spinal stenosis (Chronic 12/23/14) Hyperlipidemia (Acute 05/16/13) Obesity (BMI 35.0-39.9 without comorbidity) (Acute) Hypertension (Acute) GERD (gastroesophageal reflux disease) (Acute) Dysphagia (Chronic) Chest pain (Acute) Medical History GERD (gastroesophageal reflux disease) Alcoholic cirrhosis of liver without ascites Non-insulin dependent type 2 diabetes mellitus Dementia Per pt. states he still signs for himself Low back pain Chest pain Per pt. this was related to when he had gastric bypass he had scarring over his esophagus, and it wasn't cardiac in nature Elevated bilirubin Abnormality of penis (11/18/14) Anxiety (07/16/14) Benign neoplasm of colon (08/15/11) Depression (07/16/14) Erectile dysfunction (06/19/14) Sensorineural hearing loss, bilateral (01/06/17) BPH (benign prostatic hyperplasia) Surgical History Hx of cholecystectomy 09/15/23 pt denies he has had a cholecyctectomy. He reports he has had a gastric bypass. Mayur Franco RN Hx of total knee replacement Bilateral. History of colonoscopy (~10/30/20) History of esophagogastroduodenoscopy (EGD) (~08/13/21) 10/30/20 H/O gastric bypass 2010 bunionectomy (07/18/14) Left Dr Márquez Rotator Cuff Repair Repair, ACL Repair of inguinal hernia Family History Mother Alzheimer disease Social History Smoking/Tobacco Use Status: Former Tobacco Use Quit Date: 07/10/85 Smoking risk assessment performed?: Yes Alcohol Intake: former Drug use: Never Substance use type: does not use Household members: spouse Housing: house current occupation: retired Current gender identity: male What is your relationship status?: Panel score (0-1 are the most socially isolated patients): 1 Do you feel safe at home: Yes (unable to assess privately) Do you feel safe in your relationship?: Yes
[2024-09-16] MEDS: Ketorolac 15 MG/ML VIAL 7.5 MG IM (14:34)
[2024-09-16 14:43] VITALS: BP 146/79; PULSE 69; RESP 18; O2SAT 95
== END 2024-09-16 14:46 | disposition home or self-care (01) ==
LOC: ER 14:33
PROVIDERS: Emergency Provider Physician Assistant; PCP Student in an Organized Health Care Education/Training Program
DX: S22.42XA Multiple fractures of ribs, left side, initial encounter for closed fracture (principal); I10 Essential (primary) hypertension; E78.5 Hyperlipidemia, unspecified; K70.30 Alcoholic cirrhosis of liver without ascites; E11.9 Type 2 diabetes mellitus without complications; Z98.84 Bariatric surgery status; Z79.84 Long term (current) use of oral hypoglycemic drugs; W00.0XXA Fall on same level due to ice and snow, initial encounter; Y93.01 Activity, walking, marching and hiking
CPT/HCPCS: 71250; 82962; 96372; 99285; 72125; 72128; 99284; J1885

== ENCOUNTER 2024-09-30 14:57 | Outpatient (REF) | payer MEDICARE, SELFPAY ==
[2024-09-30 16:20] LABS: Calculated LDL 86 mg/dL (<100); Cholesterol 168 mg/dL (<200); HDL Cholesterol 48 mg/dL (>or=40); Triglyceride 173 mg/dL (<150)
[2024-09-30 16:42] LABS: COMMENT (LAB VIEW ONLY) 101.55 mg/dL; Microalb ug/mg Crea 11.8 ug/mg Cr
== END 2024-09-30 14:58 | disposition home or self-care (01) ==
LOC: NCHCN 14:57
PROVIDERS: PCP Student in an Organized Health Care Education/Training Program; Visit Provider Student in an Organized Health Care Education/Training Program
DX: E11.9 Type 2 diabetes mellitus without complications (principal)
CPT/HCPCS: 80061; 82043; 82570

== ENCOUNTER 2024-12-31 13:46 | Outpatient (REF) | payer MEDICARE, SELFPAY ==
[2024-12-31 15:04] LABS: Abs Immature Grans 0.03 10^3/uL (0.0-0.06); Absolute Basophil Count 0.01 10^3/uL (0.0-0.2); Absolute Eosinophil Count 0.26 10^3/uL (0.0-0.7); Absolute Lymphocyte Count 1.36 10^3/uL (1.2-3.4); Absolute Monocyte Count 0.46 10^3/uL (0.1-0.8); Absolute Neutrophil Count 4.45 10^3/uL (1.2-6.7); Basophils % 0.2 %; HCT 40.3 % (40.0-50.0); HGB 13.4 g/dL (13.5-17.5); Immature Grans % 0.5 %; Lymphocytes % 20.7 %; MCH 28.3 pg (27.0-33.0); MCHC 33.3 % (32.0-36.0); MCV 85 fL (80-95); MPV 10.5 fL (8.0-11.0); Neutrophils % 67.6 %; Platelet Count 182 10^3/uL (130-400); RBC 4.73 10^6/uL (4.36-5.78); RDW 14.2 % (11.8-14.1); RDW-SD 43.7 fL; WBC 6.57 10^3/uL (4.4-10.8)
[2024-12-31 15:33] LABS: ALT 23 U/L (16-63); AST 13 U/L (15-37); Albumin 4.2 g/dL (3.4-5.0); Alkaline Phosphatase 87 U/L (46-116); BUN 20 mg/dL (7-18); Bilirubin, Total 0.6 mg/dL (0.2-1.0); CREATININE 1.4 mg/dL (0.70-1.30); Calcium 9.2 mg/dL (8.5-10.1); Chloride 104 mmol/L (98-107); Estimated GFR 54.75 (mL/min/1.73m2); Glucose 127 mg/dL (74-106); Magnesium 1.5 mg/dL (1.8-2.4); Potassium 4.4 mmol/L (3.5-5.1); Sodium 139 mmol/L (136-145); TSH (W/Ref FT4) 2.29 uIU/mL (0.36-3.74); Total Protein 7.4 g/dL (6.4-8.2)
== END 2024-12-31 13:47 | disposition home or self-care (01) ==
LOC: NCHCN 13:46
PROVIDERS: PCP Student in an Organized Health Care Education/Training Program; Visit Provider Student in an Organized Health Care Education/Training Program
DX: R55 Syncope and collapse (principal)
CPT/HCPCS: 80053; 83735; 84443; 85025

== ENCOUNTER 2025-01-14 08:10 | Observation (INO) | payer MEDICARE, SELFPAY ==
[2025-01-14] VITALS (7 sets, daily range): BP systolic 141–162; BP diastolic 76–95; PULSE 53–80; RESP 17–19; TEMP 36–36.5; O2SAT 92–97
--- NOTE | 2025-01-14 08:00 | RT.EKG_ITS ---
APPROVED REPORT Exam: Resting ECG Reason for Exam: SOB Patient Location: E HR:69 bpm ECG Measurements Heart Rate 69 AXIS ND 177 P 68 QRSd 96 QRS 25 QT 390 T 58 QTc 420 Conclusion Sinus rhythm...normal P axis, V-rate 60- 99 Low voltage, precordial leads...precordial leads <1.0mV No Occlusion GA
--- NOTE | 2025-01-14 08:15 | DI.RAD_ITS ---
Exam(s) XR CHEST 2V PA LATERAL EXAM: XR CHEST 2V PA LATERAL CLINICAL HISTORY: SOB. TECHNIQUE: 2D digital imaging was performed. COMPARISON: CR XR PORTABLE CHEST AP from 01/09/2024 FINDINGS: 2 views: Heart size is normal. The mediastinum is not widened. Lungs are clear. No new infiltrates nor pleural effusions. No evidence of pulmonary edema. No pneumothorax. Evidence of previous right shoulder surgery again noted. IMPRESSION: No acute pulmonary findings. DATA REPOSITORY: RADIATION DOSE DELIVERED:
--- NOTE | 2025-01-14 08:26 | W.ED.GENAD ---
Discharge Plan Disposition Patient Disposition: Admit to [facility] Discharge Details Clinical Impression: Breath shortness, Chest heaviness, Hypomagnesemia Admit Date/Time: 01/14/25 11:50 Admit Provider: Caleb Arenas Attending Provider: Caleb Arenas Primary Care Provider: Orlando Silverman ED Provider: Yung Laureano Discharge Data Discharge Date/Time-TO BE ENTERED AT DEPARTURE: 01/14/25 13:00 HPI General Date/Time Provider Initiated Documentation: 01/14/25 08:26. HPI Narrative: MDM This is an overall well-appearing afebrile and nontachycardic 69-year-old male with elevated BMI ofl-[id number] diabetes hypertension hyperlipidemia with chest pain and ECG reassuring against ACS for which patient will undergo troponin evaluation in the ED. No trauma to chest to suggest pneumothorax. No fevers no cough to suggest pneumonia. Patient is not a dialysis patient so my suspicion is low for tamponade as I did not feel he required bedside ultrasound. Patient is low risk for PE so we will send a D-dimer as he is not having any calf pain and is negative Homans' sign. No rash to chest to suggest zoster. Patient has not been vomiting to suggest increased risk for esophageal rupture. No pain out of proportion to suggest necrotizing soft tissue infection. Patient has no lower extremity edema to suggest acute heart failure so I do not feel he requires diuretics. 9:50 AM Reassuring initial troponin. Very mild hypomagnesemia for which patient will receive oral repletion. CBC with slightly worsened normocytic anemia. Comprehensive metabolic panel with no JOJO. Reassuring LFTs. Lipase within normal limits. D-dimer less than 1000 which is negative based on years criteria so we will defer CT angiogram. 4:45 PM Late charting due to patient care. Patient had negative ischemic evaluation with stress test at [facility] [place] several years ago. Given significant risk factors and elevated heart score is in touch with Dr. Porter. She graciously agreed to accept the patient for hospitalization. HEART SCORE Chest pain Diagnostic Protocol: [-History/Physical/Gestalt: Slightly Suspicious (0)] [-EKG: Normal and/or unchanged from prior EKG (0)] [- AGE: 65 and older (+2)] [- RISK FACTORS: 3 or more risk factors and/or known CAD (+2)] [-TROPONIN: <= normal limit (0)] - TOTAL SCORE: 4 - Risk Factors: DM, current or recent smoker, HTN, HLD, family hx of CAD, obesity History of Present Illness This is a patient with a history of diabetes presenting with shortness of breath. The patient has been experiencing shortness of breath for the past few months, which worsened this morning. Last night, he felt a heaviness in his chest, left arm, and tingling in his fingers, but these symptoms have since subsided. He is unsure if he has any heart-related issues and does not have any stents. He has experienced fainting spells. He sought medical attention today due to his breathing difficulties, as advised by his doctor. He has a history of diabetes but is not on insulin. He has lost a significant amount of weight. He does not have high cholesterol. He does not smoke cigarettes or drink alcohol. He reports no vomiting but feels nauseous. Exam General: Well-appearing in no acute distress speaking in complete sentences. Head: Normocephalic, atraumatic. Eye: Extraocular eye movements intact. No conjunctival injection. No scleral icterus. Ear, nose, mouth, throat: Grossly normal inspection. Normal voice, handling secretions normally. Neck: Trachea midline. Cardiovascular: Well-perfused distal extremities. Regular rate and rhythm Respiratory: Nonlabored respiration. Clear lungs bilaterally Gastrointestinal: Nondistended abdomen. Soft. Nontender Musculoskeletal: No significant lower extremity pitting edema. Moving all 4 extremities spontaneously. Negative Homans' sign. Skin: Normal for age and race, grossly normal temperature and turgor. No acute rash. Neurologic: Alert and appropriate, no apparent acute deficits. Psychiatric: Mood and manner are appropriate. Grooming and personal hygiene are appropriate. Related Data Home Medications ?Medication ?Instructions ?Recorded ?Confirmed metformin 1,000 mg tablet 1,000 mg PO BID 11/27/17 01/14/25 (Glucophage) gabapentin 800 mg tablet 800 mg PO TID 07/02/20 01/14/25 glipizide 10 mg tablet, extended 2.5 mg PO DAILY 07/02/20 01/14/25 release 24 hr pantoprazole 40 mg tablet,delayed 40 mg PO BID 07/02/20 01/14/25 release venlafaxine 225 mg tablet,extended 225 mg PO DAILY 07/02/20 01/14/25 release 24 hr acetaminophen 500 mg tablet 1,000 mg PO Q6H PRN 10/26/21 01/14/25 dulaglutide 1.5 mg/0.5 mL 1.5 mg subcut QWEEK 10/26/21 09/16/24 subcutaneous pen injector (Trulicity) tamsulosin 0.4 mg capsule (Flomax) 0.8 mg (2 x 0.4 mg) PO HS #180 caps 09/27/23 01/14/25 rosuvastatin 5 mg tablet 5 mg PO DAILY 01/14/25 01/14/25 Previous Rx's ?Medication ?Instructions ?Recorded tamsulosin 0.4 mg capsule (Flomax) 0.8 mg (2 x 0.4 mg) PO HS #180 caps 09/27/23 Allergies Allergy/AdvReac Type Severity Reaction Status Date / Time adhesive Allergy Intermediate blisters Verified 01/14/25 08:31 atorvastatin Allergy Intermediate .chest Verified 01/14/25 08:31 pain/diaphroresis General NASIMA: 4 Medical Decision Making Quality:SDOH Health Related Social Needs: Health related social needs lonely/isolated education PFSH All Active Problems (Updated 01/14/25 @ 12:57 by KENIA STEVEN) Hypomagnesemia (Acute) Chest heaviness (Acute) Breath shortness (Acute) Peyronie's disease (Acute) Memory impairment (Acute) Osteoarthritis of knees, bilateral (Acute) Peroneal tendinitis (Acute) Mass of parotid gland (Acute) Closed fracture of finger of left hand (Acute 09/29/21) small finger Hiatal hernia (Chronic) Foot pain, right (Acute) Cellulitis of foot, right (Acute) Other sprain of right shoulder joint, initial encounter (Acute) Fall (Acute) SOB (shortness of breath) (Acute) Shortness of breath at rest (Acute) Weakness with dizziness (Acute) Anastomotic stricture of gastrojejunostomy (Acute) Diabetes mellitus type II, uncontrolled (Chronic) S/P gastric bypass (Chronic) Liver cirrhosis secondary to nonalcoholic steatohepatitis (HERR) (Acute) Degenerative cervical spinal stenosis (Chronic 12/23/14) Hyperlipidemia (Acute 05/16/13) Obesity (BMI 35.0-39.9 without comorbidity) (Acute) Hypertension (Acute) GERD (gastroesophageal reflux disease) (Acute) Dysphagia (Chronic) Chest pain (Acute) Medical History GERD (gastroesophageal reflux disease) Alcoholic cirrhosis of liver without ascites Non-insulin dependent type 2 diabetes mellitus Dementia Per pt. states he still signs for himself Low back pain Chest pain Per pt. this was related to when he had gastric bypass he had scarring over his esophagus, and it wasn't cardiac in nature Elevated bilirubin Abnormality of penis (11/18/14) Anxiety (07/16/14) Benign neoplasm of colon (08/15/11) Depression (07/16/14) Erectile dysfunction (06/19/14) Sensorineural hearing loss, bilateral (01/06/17) BPH (benign prostatic hyperplasia) Surgical History Hx of cholecystectomy 09/15/23 pt denies he has had a cholecyctectomy. He reports he has had a gastric bypass. Mayur Franco RN Hx of total knee replacement Bilateral. History of colonoscopy (~10/30/20) History of esophagogastroduodenoscopy (EGD) (~08/13/21) 10/30/20 H/O gastric bypass 2010 bunionectomy (07/18/14) Left Dr Márquez Rotator Cuff Repair Repair, ACL Repair of inguinal hernia Family History Mother Alzheimer disease Social History Smoking/Tobacco Use Status: Former Tobacco Use Quit Date: 07/10/85 Smoking risk assessment performed?: Yes Alcohol Intake: former Drug use: Never Substance use type: does not use Household members: spouse Housing: house current occupation: retired Current gender identity: male What is your relationship status?: Panel score (0-1 are the most socially isolated patients): 1 Do you feel safe at home: Yes (unable to assess privately) Do you feel safe in your relationship?: Yes
[2025-01-14] MEDS: Aspirin 81 MG CHEW 324 MG CH (08:53)
[2025-01-14 09:11] LABS: Abs Immature Grans 0.01 10^3/uL (0.0-0.06); HCT 37.6 % (40.0-50.0); HGB 12.5 g/dL (13.5-17.5); Immature Grans % 0.2 %; MCH 28.5 pg (27.0-33.0); MCHC 33.2 % (32.0-36.0); MCV 86 fL (80-95); MPV 9.5 fL (8.0-11.0); Platelet Count 165 10^3/uL (130-400); RBC 4.38 10^6/uL (4.36-5.78); RDW 14.0 % (11.8-14.1); RDW-SD 43.8 fL; WBC 5.84 10^3/uL (4.4-10.8)
[2025-01-14 09:30] LABS: ALT 23 U/L (16-63); AST 16 U/L (15-37); Albumin 3.8 g/dL (3.4-5.0); Alkaline Phosphatase 80 U/L (46-116); Anion Gap 10.6 mmol/L (3-11); BUN 21 mg/dL (7-18); Bilirubin, Total 0.6 mg/dL (0.2-1.0); CO2 26.4 mmol/L (21.0-32.0); Calcium 9.0 mg/dL (8.5-10.1); Chloride 103 mmol/L (98-107); Estimated GFR 81.98 (mL/min/1.73m2); Glucose 139 mg/dL (74-106); Lipase 34 U/L (<78); Magnesium 1.6 mg/dL (1.8-2.4); Potassium 4.6 mmol/L (3.5-5.1); Sodium 140 mmol/L (136-145); Total Protein 7.1 g/dL (6.4-8.2); Troponin I 6 ng/L (<or=76)
[2025-01-14 09:44] LABS: D-Dimer 886 ng/mlFEU (<500)
[2025-01-14] MEDS: Magnesium Oxide 400 MG TAB 800 MG PO (10:04)
[2025-01-14 10:31] LABS: Troponin I 7 ng/L (<or=76)
[2025-01-14 12:20] LABS: Hemoglobin A1C 6.9 % (<5.7)
--- NOTE | 2025-01-14 12:52 | W.PC.ACHO ---
Registration Status: REG ER Primary Language: Preferred Language: Hungarian ED Information & Data Chief Complaint SOB 01/14/25 08:29 Chief Complaint SOB 01/14/25 08:25 Triage Note Patient here with SOB for 01/14/25 08:25 mths. States he has been worked up for this before with no cause identified. States is here for a bone scan and he thought he would get checked out. Medical / Surgical History (Last Reviewed 01/09/24 @ 15:40 by Celestine Medrano MD) GERD (gastroesophageal reflux disease) Alcoholic cirrhosis of liver without ascites Non-insulin dependent type 2 diabetes mellitus Dementia Low back pain Chest pain Elevated bilirubin Abnormality of penis (11/18/14) Anxiety (07/16/14) Benign neoplasm of colon (08/15/11) Depression (07/16/14) Erectile dysfunction (06/19/14) Sensorineural hearing loss, bilateral (01/06/17) BPH (benign prostatic hyperplasia) (Last Reviewed 01/09/24 @ 15:40 by Celestine Medrano MD) Hx of cholecystectomy Hx of total knee replacement History of colonoscopy (~10/30/20) History of esophagogastroduodenoscopy (EGD) (~08/13/21) H/O gastric bypass bunionectomy (07/18/14) Rotator Cuff Repair Repair, ACL Repair of inguinal hernia Most Recent Vital Signs Temperature 36.4 C L 01/14/25 08:25 Temperature Source Oral 01/14/25 08:25 Pulse 80 01/14/25 08:25 Respiratory Rate 18 01/14/25 09:06 Respiratory Effort Normal, Incrsd Work of Breathing 01/14/25 09:06 Respiratory Depth Normal 01/14/25 09:06 Respiratory Pattern Normal 01/14/25 09:06 Blood Pressure 159/90 H 01/14/25 08:25 Blood Pressure Position Sitting 01/14/25 08:25 Pulse Oximetry 96 01/14/25 08:25 Oxygen Delivery Method Room Air 01/14/25 08:25 Oxygen Flow Rate 0 01/14/25 08:25 Allergies adhesive Allergy (Intermediate, Verified 01/14/25 08:31) blisters atorvastatin Allergy (Intermediate, Verified 01/14/25 08:31) .chest pain/diaphroresis Precautions Isolation Standard precaution 01/14/25 08:29 IV IV Catheter Type [Right Saline Lock Antecubital] IV Catheter Gauge [Right 18 Antecubital] Diet Orders Category Date Time Status Diabetes Consistent CHO [DIET] Nutrition 01/14/25 Dinner Active Diagnostics 01/14/25 01/14/25 01/14/25 Range/Units 11:42 10:00 09:00 WBC 5.84 (4.4-10.8) 10^3/uL RBC 4.38 (4.36-5.78) 10^6/uL Hgb 12.5 L (13.5-17.5) g/dL Hct 37.6 L (40.0-50.0) % MCV 86 (80-95) fL MCH 28.5 (27.0-33.0) pg MCHC 33.2 (32.0-36.0) % RDW 14.0 (11.8-14.1) % Plt Count 165 (130-400) 10^3/uL MPV 9.5 (8.0-11.0) fL Immature Gran % 0.2 % Neutrophils % 62.6 % Lymphocytes % 23.5 % Monocytes % 7.2 % Eosinophils % 6.5 % Basophils % 0.0 % Nucleated RBC % 0.0 (0.0-0.3) % Absolute Neutrophils 3.66 (1.2-6.7) 10^3/uL Absolute Lymphocytes 1.37 (1.2-3.4) 10^3/uL Absolute Monocytes 0.42 (0.1-0.8) 10^3/uL Absolute Eosinophils 0.38 (0.0-0.7) 10^3/uL Absolute Basophils 0.00 (0.0-0.2) 10^3/uL D-Dimer 886 H (<500) ng/mlFEU Sodium 140 (136-145) mmol/L Potassium 4.6 (3.5-5.1) mmol/L Chloride 103 (98-107) mmol/L Carbon Dioxide 26.4 (21.0-32.0) mmol/L Anion Gap 10.6 (3-11) mmol/L BUN 21 H (7-18) mg/dL Creatinine 1.0 (0.70-1.30) mg/dL Est GFR (CKD-EPI 2020) 81.98 (mL/min/1.73m2) Glucose 139 H (74-106) mg/dL Hemoglobin A1c 6.9 H (<5.7) % Calcium 9.0 (8.5-10.1) mg/dL Magnesium 1.6 L (1.8-2.4) mg/dL Total Bilirubin 0.6 (0.2-1.0) mg/dL AST 16 (15-37) U/L ALT 23 (16-63) U/L Alkaline Phosphatase 80 (46-116) U/L Troponin I Cancelled 7 6 (<or=76) ng/L Total Protein 7.1 (6.4-8.2) g/dL Albumin 3.8 (3.4-5.0) g/dL Lipase 34 (<78) U/L Intake and Output - 24 Hour Total 01/14/25 08:10 thru 01/14/25 09:05 Intake Total 10 Balance 10 Weight 95.254 kg Intake: IV 10 Falls Risk Assessment History of Falls No History 01/14/25 08:29 Contributing Factors Impairments 01/14/25 08:29 Ambulatory Aids Uses ambulatory device 01/14/25 08:29 Tubes/Lines None 01/14/25 08:29 Gait Evaluation W/no contributing factors 01/14/25 08:29 Cognition No cognitive impairment 01/14/25 08:29 Fall Total Score 28 01/14/25 08:29 Level of Risk Moderate Risk 01/14/25 08:29 Problems (Last Reviewed 01/09/24 @ 15:40 by Celestine Medrano MD) Hypomagnesemia (Acute) Chest heaviness (Acute) Breath shortness (Acute) v v v v v v v v v Sending and/or Receiving Nurses: Please use comment section below to note any information pertinent to the patient hand-off not included above. Information / Comments: Report received from: Presented to ED for SOB for a couple months. SATs 98% on RA, CXR (-), c/o chest tightness relieved with 324 mg aspirin, A/O x4 and VS WNL. Report received from MATEO Samuel
--- NOTE | 2025-01-14 15:08 | W.PM.HP.N ---
Date of service: 01/14/25 Time of Service: 11:00 Assessment and Plan Assessment and plan (1) Syncope and collapse: Status: Acute Assessment and plan: Multiple episodes, some with prodrome of dizziness and weakness If cardiac, would be new disease. Ordered echocardiogram for January 15, stress for January 16 Monitor on tele PT evaluation requested (2) Chest heaviness: Status: Acute Assessment and plan: No evidence of NM on EKG Valvular disease could explain vs GERD vs exercise intolerance Care as above (3) SOB (shortness of breath): Status: Acute Assessment and plan: On room air, likely related to chest pressure sensation Low threshold for PE workup Monitor on tele (4) Hypomagnesemia: Status: Acute Assessment and plan: Repleting orally, recheck. (5) GERD (gastroesophageal reflux disease): Status: Acute Assessment and plan: Continue home PPI (6) Non-insulin dependent type 2 diabetes mellitus: Assessment and plan: On dulaglutide, metformin, glipizide at home, holding all in favor of SSI while hospitalized A1C improved to 6.9 from previous 7.1, adequate control for age and comorbidities (7) BPH (benign prostatic hyperplasia): Assessment and plan: Continue home tamsulosin (8) Dementia: Assessment and plan: Chronic per patient's spouse History of Present Illness Narrative: Yung Betancur is a 69 year old man presenting January 13 with shortness of breath. He reported heaviness in his chest which he has experienced before, and he has had multiple cardiac workups which have been negative including stress at [facility] 3 years before. He feels that he loses his breath with minimal exertion - he is able to ambulate to the kitchen but has to stop and catch his breath on stairs. He feels pressure in his chest when he feels short of breath. The chest pressure resolves with rest. He believes he has a valve problem but does not have details. He also reports that he has passed out several times, including while he was driving. He has stopped driving. Over the last 2-3 months he has had 2-3 episodes where he feels the room is spinning and his legs give out. He walks with a cane at baseline. No abdominal pain, no N/V/D. In the ED he was found to have mild anemia, elevated glucose 139, A1C 6.9, low magnesium 1.6. Negative troponin. Ddimer was elevated but per protocol PE workup was not continued. CXR unremarkable. PFSH All Active Problems (Updated 01/14/25 @ 17:13 by Caleb Arenas MD) Syncope and collapse (Acute) Hypomagnesemia (Acute) Chest heaviness (Acute) Breath shortness (Acute) Peyronie's disease (Acute) Memory impairment (Acute) Osteoarthritis of knees, bilateral (Acute) Peroneal tendinitis (Acute) Mass of parotid gland (Acute) Closed fracture of finger of left hand (Acute 09/29/21) small finger Hiatal hernia (Chronic) Foot pain, right (Acute) Cellulitis of foot, right (Acute) Other sprain of right shoulder joint, initial encounter (Acute) Fall (Acute) SOB (shortness of breath) (Acute) Shortness of breath at rest (Acute) Weakness with dizziness (Acute) Anastomotic stricture of gastrojejunostomy (Acute) Diabetes mellitus type II, uncontrolled (Chronic) S/P gastric bypass (Chronic) Liver cirrhosis secondary to nonalcoholic steatohepatitis (HERR) (Acute) Degenerative cervical spinal stenosis (Chronic 12/23/14) Hyperlipidemia (Acute 05/16/13) Obesity (BMI 35.0-39.9 without comorbidity) (Acute) Hypertension (Acute) GERD (gastroesophageal reflux disease) (Acute) Dysphagia (Chronic) Chest pain (Acute) Medical History GERD (gastroesophageal reflux disease) Alcoholic cirrhosis of liver without ascites Non-insulin dependent type 2 diabetes mellitus Dementia Per pt. states he still signs for himself Low back pain Chest pain Per pt. this was related to when he had gastric bypass he had scarring over his esophagus, and it wasn't cardiac in nature Elevated bilirubin Abnormality of penis (11/18/14) Anxiety (07/16/14) Benign neoplasm of colon (08/15/11) Depression (07/16/14) Erectile dysfunction (06/19/14) Sensorineural hearing loss, bilateral (01/06/17) BPH (benign prostatic hyperplasia) Surgical History Hx of cholecystectomy 09/15/23 pt denies he has had a cholecyctectomy. He reports he has had a gastric bypass. Mayur Franco RN Hx of total knee replacement Bilateral. History of colonoscopy (~10/30/20) History of esophagogastroduodenoscopy (EGD) (~08/13/21) 10/30/20 H/O gastric bypass 2010 bunionectomy (07/18/14) Left Dr Márquez Rotator Cuff Repair Repair, ACL Repair of inguinal hernia Family History Mother Alzheimer disease Social History Smoking/Tobacco Use Status: Former Tobacco Use Quit Date: 07/10/85 Smoking risk assessment performed?: Yes Alcohol Intake: former Drug use: Never Substance use type: does not use Household members: spouse Housing: other current occupation: retired Current gender identity: male What is your relationship status?: Panel score (0-1 are the most socially isolated patients): 1 Do you feel safe at home: Yes (unable to assess privately) Do you feel safe in your relationship?: Yes Meds Allergies and Home Medications Allergies Allergy/AdvReac Type Severity Reaction Status Date / Time adhesive Allergy Intermediate blisters Verified 01/14/25 08:31 atorvastatin Allergy Intermediate .chest Verified 01/14/25 08:31 pain/diaphroresis Home Medications ?Medication ?Instructions ?Recorded ?Confirmed ?Type metformin 1,000 mg tablet 1,000 mg PO BID 11/27/17 01/14/25 History (Glucophage) gabapentin 800 mg tablet 800 mg PO TID 07/02/20 01/14/25 History glipizide 10 mg tablet, extended 2.5 mg PO DAILY 07/02/20 01/14/25 History release 24 hr pantoprazole 40 mg tablet,delayed 40 mg PO BID 07/02/20 01/14/25 History release venlafaxine 225 mg tablet,extended 225 mg PO DAILY 07/02/20 01/14/25 History release 24 hr acetaminophen 500 mg tablet 1,000 mg PO Q6H PRN 10/26/21 01/14/25 History dulaglutide 1.5 mg/0.5 mL 1.5 mg subcut QWEEK 10/26/21 09/16/24 History subcutaneous pen injector (Trulicity) tamsulosin 0.4 mg capsule (Flomax) 0.8 mg (2 x 0.4 mg) PO HS #180 caps 09/27/23 01/14/25 Rx rosuvastatin 5 mg tablet 5 mg PO DAILY 01/14/25 01/14/25 History Exam Narrative Exam Narrative: General: This is a pleasant, obese man in no acute distress HEENT: Normocephalic, atraumatic CV: RRR Resp: CTAB Abd: NTND +NBS MSK: voluntary motion x4, no LE tenderness/edema/erythema Neuro: Awake and alert without focal deficits Results Imaging Chest x-ray: report reviewed (No pulmonary disease noted.) Labs 01/14/25 09:00 01/14/25 09:00 Labs: Laboratory Results - last 24 hr 01/14/25 01/14/25 01/14/25 09:00 10:00 11:42 WBC 5.84 RBC 4.38 Hgb 12.5 L Hct 37.6 L MCV 86 MCH 28.5 MCHC 33.2 RDW 14.0 Plt Count 165 MPV 9.5 Immature Gran % 0.2 Neutrophils % 62.6 Lymphocytes % 23.5 Monocytes % 7.2 Eosinophils % 6.5 Basophils % 0.0 Nucleated RBC % 0.0 Absolute Neutrophils 3.66 Absolute Lymphocytes 1.37 Absolute Monocytes 0.42 Absolute Eosinophils 0.38 Absolute Basophils 0.00 D-Dimer 886 H Sodium 140 Potassium 4.6 Chloride 103 Carbon Dioxide 26.4 Anion Gap 10.6 BUN 21 H Creatinine 1.0 Est GFR (CKD-EPI 2020) 81.98 Glucose 139 H Hemoglobin A1c 6.9 H Calcium 9.0 Magnesium 1.6 L Total Bilirubin 0.6 AST 16 ALT 23 Alkaline Phosphatase 80 Troponin I 6 7 Cancelled Total Protein 7.1 Albumin 3.8 Lipase 34 Last Vital Signs Temp 36.4 C L 01/14/25 08:25 Pulse 80 01/14/25 08:25 Resp 18 01/14/25 09:06 BP 159/90 H 01/14/25 08:25 Pulse Ox 96 01/14/25 08:25 Time Spent Time spent with Patient: <40 minutes Time was spent: preparing to see the patient(eg.review tests), obtaining and/or reviewing separately otained hiistory, ordering medications,tests, procedures, referring, communicating with other health manager long term care, indepentently interpreting results, counseling the patient and care coordination
[2025-01-14] MEDS: Gabapentin 800 MG TAB PO ×2 (16:32→19:52)
--- NOTE | 2025-01-14 16:55 | IN_ITS ---
PT Notes Visit Reasons: stable angina Physical Therapy Inpatient Initial Evaluation Date: 01/14/2025 Referring Doctor: Dr. Caleb Arenas PT Orders: PT CONSULT: Fall safety assessment Precautions: Monitor for cardiac symptoms telemetry in place Patient Profile/Admitting Diagnosis: Yung is a 69-year-old male who presented to the ED this morning after episode of chest heaviness tingling in the left extremity last night. Workup in the ED including labs revealed mild hypomagnesemia, elevated A1c. Patient admitted to [facility] floor for further medical/cardiac workup. PMHX: Hypomagnesemia (Acute) Chest heaviness (Acute) Breath shortness (Acute) Peyronie's disease (Acute) Memory impairment (Acute) Osteoarthritis of knees, bilateral (Acute) Peroneal tendinitis (Acute) Mass of parotid gland (Acute) Closed fracture of finger of left hand (Acute 09/29/21) small fingerHiatal hernia (Chronic) Foot pain, right (Acute) Cellulitis of foot, right (Acute) Other sprain of right shoulder joint, initial encounter (Acute) Fall (Acute) SOB (shortness of breath) (Acute) Shortness of breath at rest (Acute) Weakness with dizziness (Acute) Anastomotic stricture of gastrojejunostomy (Acute) Diabetes mellitus type II, uncontrolled (Chronic) S/P gastric bypass (Chronic) Liver cirrhosis secondary to nonalcoholic steatohepatitis (HERR) (Acute) Degenerative cervical spinal stenosis (Chronic 12/23/14) Hyperlipidemia (Acute 05/16/13) Obesity (BMI 35.0-39.9 without comorbidity) (Acute) Hypertension (Acute) GERD (gastroesophageal reflux disease) (Acute) Dysphagia (Chronic) Chest pain (Acute) Medical History GERD (gastroesophageal reflux disease) Alcoholic cirrhosis of liver without ascites Non-insulin dependent type 2 diabetes mellitus Dementia Per pt. states he still signs for himselfLow back pain Chest pain Per pt. this was related to when he had gastric bypass he had scarring over his esophagus, and it wasn't cardiac in natureElevated bilirubin Abnormality of penis (11/18/14) Anxiety (07/16/14) Benign neoplasm of colon (08/15/11) Depression (07/16/14) Erectile dysfunction (12/11/14) Sensorineural hearing loss, bilateral (01/06/17) BPH (benign prostatic hyperplasia) Surgical History Hx of cholecystectomy 09/15/23 pt denies he has had a cholecyctectomy. He reports he has had a gastric bypass. Mayur Franco RNHx of total knee replacement Bilateral.History of colonoscopy (~10/30/20) History of esophagogastroduodenoscopy (EGD) (~08/13/21) 10/30/20H/O gastric bypass 2010bunionectomy (07/18/14) Left Dr SaleemagneRotator Cuff Repair Repair, ACL Repair of inguinal hernia Social History/Home Situation: Patient resides alone in two-story home with no steps to enter flight of stairs to second-floor where his bedroom is. Patient notes he currently is living in/during construction renovations of the home. He states his lives elsewhere however is visiting right now and able to help with meal prep. Equipment Owned/DME: Single-point cane Subjective: Patient reports he is shortness of breath when he moves or when just sitting still. He notes some dizziness with standing however denied during this session. Objective: [] General Observation: Male supine in bed watching television, agreeable to participate in eval Mental Status: Alert and oriented to person, vague at times, impaired short-term memory, able to follow instructions Pain: Denies pain in extremities; notes intermittent chest heaviness ROM: [] BUE: WFL BLE: WFL Strength: [] BUE: Greater than equal to 3/5 no resistance due to cardiac workup. BLE: Greater than equal to 3/5 no resistance secondary to cardiac workup Sensation: Intact to light touch deep pressure Bed Mobility/Transfers: [] Supine to sit independent Sit to stand independent Stand to sit independent Bed to chair independent with and without cane Gait: Standby assist with cane 50 feet. Patient limited by reports of chest heaviness patient return to see equipment monitor phototypesetting throughout heart rate increased from 61-74 Patient demonstrates ability to ambulate in the room with cane to and from bathroom standby assist. Balance: [] Static Sitting: Normal Dynamic Sitting: Normal Static Standing: Normal Dynamic Standing: Good Special Tests: [] Mobility Limitations Standardized Measure [] [facility] AM-PAC 6 clicks Basic Mobility Inpatient Short Form: [] Raw Score: 23 CMS Score: 11.20 Informed Consent/Education: Patient instructed in purpose of PT consult. Assessment: Patient is a 69-year-old male who presents with clinical signs and symptoms consistent with current/admitting diagnoses that have resulted to mobility limitations, gait instability, generalized weakness, and impairment of motor control as demonstrated by the following impairment level findings: 1. Impaired functional activity tolerance 2. Impaired standing balance 3. Chest heaviness/shortness of breath at rest and with exertion Impairments are contributing to the following functional limitations: 1. Inability to safely ambulate without assistive device 2. Increase completion time for mobility ADL performance 3. Increased fall risk 4. Difficulty performing stairs Patient is assessed as a moderate complexity based on the following: History: 69-year-old male with impairment level findings, functional limitations, and past medical history as indicated above Examination: Demonstrable impairment in strength, balance, and mobility level with underlying impairments and functional limitations as documented above Presentation: Evolving/stable Decision Making: Moderate Goals: 1. Modified independence ambulating greater than 300 feet with cane level surfaces without report of increased shortness of breath 2. Supervision flight of stairs with cane in 1 room without reported increased shortness of breath. Plan of Care/Treatment Plan: 1-2x/day, 7 days/week x 1 week. Plan of care has been reviewed with the TOOL AND PRODUCTION PLANNER providing the service under Physical Therapy direction. Initiate Physical Therapy intervention for strengthening, gait, stairs, balance training, use of assistive device while monitoring cardiac status. DISCHARGE RECOMMENDATIONS: Home with outpatient cardiac program TREATMENT CODE/TIME: 13824/3:35 PM?4:10 PM Thank you for the opportunity to participate in the care of this patient. Please sign an return this page within 30 days if you agree with the above POC. Thank you! Physician Signature Date [facility]
--- NOTE | 2025-01-14 18:30 | RESPIRATORY ---
Notified by RN that patient has home CPAP machine that is not currently at the hospital. Previous admissions patient had a [employer] CPAP 6-14, No O2 bleed-in, Medium size nasal pillows, DME: [facility]
[2025-01-14] MEDS: Tamsulosin 0.4 MG CAPCR 0.8 MG PO (19:52)
[2025-01-14] MEDS: Normal Saline Flush 10 ML SYR IVP (19:53)
[2025-01-14] MEDS: Pantoprazole 40 MG TABCR PO (19:53)
[2025-01-14] MEDS: Magnesium Oxide 400 MG TAB PO (19:53)
[2025-01-15] VITALS (12 sets, daily range): BP systolic 118–152; BP diastolic 72–88; PULSE 60–77; RESP 17–20; TEMP 36.1–36.6; O2SAT 95–98
--- NOTE | 2025-01-15 04:00 | RT.EKG_ITS ---
APPROVED REPORT Exam: Resting ECG Reason for Exam: SOB, dizziness, chest tightness Patient Location: I HR:73 bpm ECG Measurements Heart Rate 73 AXIS IL 202 P 15 QRSd 277 QRS -6 QT 395 T 8 QTc 436 Conclusion Sinus rhythm...normal P axis, V-rate 50- 99 Probable left ventricular hypertrophy...(RaVL+SV3)xQRSd >280
[2025-01-15] MEDS: nitroGLYcerin 0.4 MG TAB SL ×8 (04:30→19:02)
--- NOTE | 2025-01-15 04:30 | RT.EKG_ITS ---
APPROVED REPORT Exam: Resting ECG Reason for Exam: Follow up chest pain Patient Location: I HR:79 bpm ECG Measurements Heart Rate 79 AXIS ND 176 P 52 QRSd 103 QRS 8 QT 396 T 47 QTc 455 Conclusion Sinus rhythm...normal P axis, V-rate 60- 99 Early transition
[2025-01-15 06:22] LABS: HCT 36.2 % (40.0-50.0); HGB 12.0 g/dL (13.5-17.5); MCH 28.6 pg (27.0-33.0); MCHC 33.1 % (32.0-36.0); MCV 86 fL (80-95); MPV 10.1 fL (8.0-11.0); Platelet Count 147 10^3/uL (130-400); RBC 4.20 10^6/uL (4.36-5.78); RDW 14.0 % (11.8-14.1); RDW-SD 43.4 fL; WBC 4.46 10^3/uL (4.4-10.8)
[2025-01-15 06:51] LABS: ALT 21 U/L (16-63); AST 14 U/L (15-37); Albumin 3.5 g/dL (3.4-5.0); Alkaline Phosphatase 76 U/L (46-116); Anion Gap 10.2 mmol/L (3-11); BUN 19 mg/dL (7-18); Bilirubin, Total 0.4 mg/dL (0.2-1.0); CO2 24.8 mmol/L (21.0-32.0); Calcium 8.8 mg/dL (8.5-10.1); Chloride 102 mmol/L (98-107); Estimated GFR 59.84 (mL/min/1.73m2); Glucose 278 mg/dL (74-106); Potassium 4.3 mmol/L (3.5-5.1); Sodium 137 mmol/L (136-145); Total Protein 6.6 g/dL (6.4-8.2)
[2025-01-15] MEDS: Gabapentin 800 MG TAB PO ×3 (08:00→19:57)
[2025-01-15] MEDS: Magnesium Oxide 400 MG TAB PO ×2 (08:00→19:57)
[2025-01-15] MEDS: Rosuvastatin 5 MG TAB PO (08:00)
[2025-01-15] MEDS: Enoxaparin 40 MG/0.4 ML SYR SC (08:00)
[2025-01-15] MEDS: Normal Saline Flush 10 ML SYR IVP ×2 (08:00→19:57)
[2025-01-15] MEDS: Pantoprazole 40 MG TABCR PO ×2 (08:02→19:57)
[2025-01-15] MEDS: Insulin Aspart 300 UNITS/3 ML PEN SC ×2 (08:11→17:14)
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
--- NOTE | 2025-01-15 11:07 | PTTR_ITS ---
PT Notes Visit Reasons: stable angina Inpatient Physical Therapy Treatment Note [facility] Date: 01/15/2025 PRECAUTIONS:telemetry, cognitive impairment SUBJECTIVE:Pt reports he has to leave today because his needs to go back to [place]. Pt reports he is feeling okay. OBJECTIVE:Pt presented reclined in chair watching TV. ? PAIN: denied VITALS: ?monitored via telemetry throughout Therapeutic Activities ([id number][]): Direct one-on-one instruction in dynamic activities to improve functional performance. ?? Independent bed mobility modified Independent transfers with SPC bed , chair , toilet and wheelchair SBA/Modified independent ambulation with SPC 300 feet with 1 SBA 5 steps x 2 with rail and SPC reciprocal pattern up and step to pattern down. ASSESSMENT:? Pt appears to be at baseline level of functional mobility with SPC. Pt denied chest pain or heaviness throughout session. Pt session shortened by scheduled ECHO. No further skilled PT indicated as inpatient PLAN: discontinue PT TREATMENT CODE/TIME:30558/ 5718 -4468 DISCHARGE RECOMMENDATION: Home with no services when medically appropriate
--- NOTE | 2025-01-15 14:36 | CHAPLAIN ---
Yung was up in the chair watching tv when I visited. He told me that he's having more testing to figure out why he passes out and is hoping to get some answers. His is dealing with cardiac issues and will be having surgery in early February so he is hoping that he'll know what's going on with him before then. I explained lmy role and offered support.
--- NOTE | 2025-01-15 14:40 | PGE_ITS ---
Date of Service Date of service: 01/15/25 Time of Service: 10:30 Assessment and Plan Assessment and plan (1) Syncope and collapse: Status: Acute Assessment and plan: Multiple episodes, some with prodrome of dizziness and weakness If cardiac, would be new disease. January 15 echocardiogram does not show new disease, mild worsening of aortic valve disease Stress scheduled for January 16 Monitor on tele PT evaluation requested (2) Chest heaviness: Status: Acute Assessment and plan: No evidence of [place] on EKG Valvular disease could explain vs GERD vs exercise intolerance Nitroglycerin PRN Care as above (3) SOB (shortness of breath): Status: Acute Assessment and plan: On room air, likely related to chest pressure sensation Low threshold for PE workup Monitor on tele (4) Hypomagnesemia: Status: Acute Assessment and plan: Repleting orally, recheck. (5) GERD (gastroesophageal reflux disease): Status: Acute Assessment and plan: Continue home PPI (6) Non-insulin dependent type 2 diabetes mellitus: Assessment and plan: On dulaglutide, metformin, glipizide at home, holding all in favor of SSI while hospitalized A1C improved to 6.9 from previous 7.1, adequate control for age and comorbidities (7) BPH (benign prostatic hyperplasia): Assessment and plan: Continue home tamsulosin (8) Dementia: Assessment and plan: Chronic per patient's spouse Subjective Subjective Interval history since last seen: Mr. Betancur is comfortable in bed. Some continuing chest pressure that responds well to NTG. He is frustrated at having to wait for his stress test but agrees to stay. Exam Narrative Exam Narrative: General: This is a pleasant, obese man in no acute distress HEENT: Normocephalic, atraumatic CV: RRR Resp: CTAB Abd: NTND +NBS MSK: voluntary motion x4, no LE tenderness/edema/erythema Neuro: Awake and alert without focal deficits Objective Last Vital Signs Temp 36.5 C 01/15/25 12:40 Pulse 74 01/15/25 12:40 Resp 18 01/15/25 12:40 BP 118/72 01/15/25 13:46 Pulse Ox 97 01/15/25 12:40 Laboratory Results - last 24 hr 01/15/25 05:59 WBC 4.46 RBC 4.20 L Hgb 12.0 L Hct 36.2 L MCV 86 MCH 28.6 MCHC 33.1 RDW 14.0 Plt Count 147 MPV 10.1 Sodium 137 Potassium 4.3 Chloride 102 Carbon Dioxide 24.8 Anion Gap 10.2 BUN 19 H Creatinine 1.3 Est GFR (CKD-EPI 2020) 59.84 Glucose 278 H Calcium 8.8 Total Bilirubin 0.4 AST 14 L ALT 21 Alkaline Phosphatase 76 Total Protein 6.6 Albumin 3.5 Objective Narrative Objective Narrative: Echocardiogram showing improved LVEF from prior, now 55% Aortic root and ascending aorta have enlarged mildly since 2020 study. Time Spent with Patient Time Spent with Patient: 25-34 minutes Time was spent: preparing to see the patient(eg.review tests), obtaining and/or reviewing separately otained hiistory, ordering medications,tests, procedures, referring, communicating with other health palliative care nurse, indepentently interpreting results, counseling the patient and care coordination
--- NOTE | 2025-01-15 14:41 | W.INDIABCONS ---
Date of service: 01/15/25 Time of Service: 13:30 Diabetes Inpatient Consult Reason for Visit: diabetes ed referral DESCRIPTION/ASSESSMENT: met with brianda 01/15 Reviewed trying to eat more plant protein to keep kcals down and help reach fiber goal of at lest 30g per day to help with glucose mgt. Reviewed outpatient services for diabetes education and Brianda took my card - not interested in book appt at this time. Time Spent in Nutritional Counseling and Treatment: 5 min
[2025-01-15] MEDS: Tamsulosin 0.4 MG CAPCR 0.8 MG PO (19:57)
[2025-01-16 01:27] VITALS: BP 153/80; PULSE 72; RESP 20; TEMP 36.2; O2SAT 95
[2025-01-16 03:09] VITALS: PULSE 70; RESP 14; O2SAT 97
[2025-01-16 07:24] LABS: Anion Gap 7.1 mmol/L (3-11); BUN 19 mg/dL (7-18); CO2 28.9 mmol/L (21.0-32.0); Calcium 8.9 mg/dL (8.5-10.1); Chloride 104 mmol/L (98-107); Estimated GFR 81.98 (mL/min/1.73m2); Glucose 189 mg/dL (74-106); Potassium 3.9 mmol/L (3.5-5.1); Sodium 140 mmol/L (136-145)
[2025-01-16 07:50] VITALS: BP 129/76; PULSE 69; RESP 16; TEMP 36.4; O2SAT 91
[2025-01-16] MEDS: Enoxaparin 40 MG/0.4 ML SYR SC (08:05)
[2025-01-16] MEDS: Gabapentin 800 MG TAB PO ×2 (08:06→14:44)
[2025-01-16] MEDS: Magnesium Oxide 400 MG TAB PO (08:06)
[2025-01-16] MEDS: Insulin Aspart 300 UNITS/3 ML PEN SC ×2 (08:07→17:14)
[2025-01-16] MEDS: Normal Saline Flush 10 ML SYR IVP (08:07)
[2025-01-16] MEDS: Pantoprazole 40 MG TABCR PO (08:07)
[2025-01-16] MEDS: Rosuvastatin 5 MG TAB PO (08:07)
--- NOTE | 2025-01-16 08:59 | CMPROGNOTE_ITS ---
Date of service: 01/16/25 Time of Service: 08:59 Care Management Progress Note Progress Note Text Progress Note Text: Yung was sitting up in bed when CM met with him. He was pleasant and quite talkative with CM. Yung shared a bit about his struggles for the past few years, financial, medical and personal. He is expecting a legal settlement soon however which will help to ease some of the financial burden. He shared that during the night his called him at 1 or 2 am to inform him that their dog has been having continuous seizures. Yung is concerned the dog may need to be euthanized which is, of course, very upsetting to him. Yung was admitted with stable angina. He has had chest pain/pressure as well as episodes of syncope and collapse. He was scheduled to have a stress test today however it has been postponed due to the return of his chest pressure and treatment with nitroglycerin. After consultation with [facility], the provider is contacting [facility] [place] attempt to [place] Yung for a cardiac catheterization. Discharge Potential Discharge Needs: PCP F/U Appt Anticipated Barriers to Discharge: None Identified Patient/Family Education Needs: Review discharge instructions, discuss Ask Me Three Transportation: Private vehicle Plan: Anticipate that Yung will be transferred to [facility] for a cardiac catheterization if accepted and if a bed is available. He will follow up with facility providers and plan of care and transport via EMS coordinated by the nursing log sorting supervisor. CM will follow and continue to assess discharge needs. Social Determinants of Health Screening Social Determinants of health last assessed in clinic: 01/16/25 Will the Patient Participate in the Screening?: Yes Do you worry about having a steady place to live?: yes What is your living situation today?: I have housing today, but am worried about losing it Problems where you live: no known problems In the past 12 months, have you had to go without electric, gas, oil or water in your home?: no 1. Within the past 12 months, we worried whether our food would run out before we got money to buy more.: Never true 2. Within the past 12 months, the food we bought just didn't last and we didn't have money to get more.: Never true Has lack of transportation kept you from medical appointments or from doing things needed for daily living?: no Has anyone in your life made you feel unsafe or unsupported?: no How hard is it for you to pay for the very basics like food, housing, medical care, and heating? Would you say it is:: Not hard at all Do you want help finding or keeping work or a job?: I do not need or want help If for any reason you need help with day-to-day activities such as bathing, preparing meals, shopping, managing finances, etc., do you get the help you need?: I don?t need any help How often do you feel lonely or isolated from those around you?: Sometimes Do you speak a language other than [place] at home?: No Does the patient want assistance with any of the above?: No Health Related Social Needs Health related social needs: housing instability, housed, with risk of homelessness (Z59.811) and feeling lonely/isolated (Z60.8) Health related social needs details: has had some concerns about current living situation
[2025-01-16] MEDS: Venlafaxine 75 MG CAPCR 225 MG PO (10:37)
[2025-01-16 11:46] VITALS: BP 130/84; PULSE 71; RESP 16; TEMP 36.4; O2SAT 94
[2025-01-16] MEDS: nitroGLYcerin 0.4 MG TAB SL (11:49)
--- NOTE | 2025-01-16 12:31 | NUR.NOTE ---
Nursing Note: Pt wanted to leave AMA, printed form, presented to the pt and explained what it meant. Pt told nursing to shove it up your ass. Still trying to contact stress lab to find out when test can be rescheduled, which was shared with pt as well.
--- NOTE | 2025-01-16 15:00 | RT.EKG_ITS ---
APPROVED REPORT Exam: Resting ECG Reason for Exam: unstable angina, interval study Patient Location: I HR:80 bpm ECG Measurements Heart Rate 80 AXIS VT 178 P 64 QRSd 103 QRS -7 QT 371 T 36 QTc 428 Conclusion Sinus rhythm...normal P axis, V-rate 50- 99
[2025-01-16 15:22] VITALS: BP 114/64; PULSE 97; RESP 16; TEMP 36.4; O2SAT 94
--- NOTE | 2025-01-16 16:02 | W.PM.PROGNOT ---
Objective Last Vital Signs Temp 36.4 C L 01/16/25 15:22 Pulse 97 H 01/16/25 15:22 Resp 16 01/16/25 15:22 BP 114/64 01/16/25 15:22 Pulse Ox 94 01/16/25 15:22 Laboratory Results - last 24 hr 01/16/25 06:30 Sodium 140 Potassium 3.9 Chloride 104 Carbon Dioxide 28.9 Anion Gap 7.1 BUN 19 H Creatinine 1.0 Est GFR (CKD-EPI 2020) 81.98 Glucose 189 H Calcium 8.9
[2025-01-16 16:04] LABS: Troponin I 6 ng/L (<or=76)
--- NOTE | 2025-01-16 17:23 | DSE_ITS ---
Date of service: 01/16/25 Time of Service: 15:00 DS: Diagnosis Discharge Diagnosis (1) Syncope and collapse: Status: Acute Asessment and Plan: Multiple episodes, some with prodrome of dizziness and weakness If cardiac, would be new disease. January 15 echocardiogram does not show new disease, mild worsening of aortic valve disease Stress had been scheduled for January 16 but with use of NTG for chest pressure, stress contraindicated Cardiac cath suggested but not emergent Discussed with [facility] cardiology, advised to follow up with outpatient veterinarian PT evaluated and cleared patient for return home (2) Chest heaviness: Status: Acute Asessment and Plan: No evidence of [place] on EKG Valvular disease could explain vs GERD vs exercise intolerance Nitroglycerin PRNs while hospitalized Care as above (3) SOB (shortness of breath): Status: Acute Asessment and Plan: On room air, likely related to chest pressure sensation Low threshold for PE workup, no indication at this time Monitored on tele (4) Hypomagnesemia: Status: Resolved Asessment and Plan: Repleted (5) GERD (gastroesophageal reflux disease): Status: Acute Asessment and Plan: Continue home PPI (6) Non-insulin dependent type 2 diabetes mellitus: Asessment and Plan: On dulaglutide, metformin, glipizide at home, holding all in favor of SSI while hospitalized A1C improved to 6.9 from previous 7.1, adequate control for age and comorbidities (7) BPH (benign prostatic hyperplasia): Status: Inactive Asessment and Plan: Continue home tamsulosin (8) Dementia: Asessment and Plan: Chronic per patient's spouse Discharge Plan Disposition Patient Disposition: Home Condition: Fair Discharge Details Reason For Visit: Stable Angina Admit Date/Time: 01/14/25 11:39 Admit Provider: Caleb Arenas Attending Provider: Caleb Arenas Primary Care Provider: Orlando Silverman Hospital Course Hospital Course: Yung Betancur is a 69 year old man presenting January 13 with shortness of breath and chest heaviness, intermittent for 2-3 years. Workup for acute cardiac illness was negative with unremarkable EKG and negative troponins. Stress was planned for January 16 but was not completed due to nitroglycerin dosing for relieve of chest pressure. On review of the case with [facility] cardiology, attention to diabetes and BP control was determined to be the best next course for Yung. At this time he is safe to return home, on a low dose of amlodipine, with recommendation to follow up soon with his PCP, Dr Silverman, to address tighter control of blood glucose and adjustment of BP meds. Recommendations for Follow Up Recommended tests to be ordered by follow up provider: recommend CGM for assessment of blood sugar throughout the day Home Meds and New Rx's Prescriptions: New amlodipine 2.5 mg tablet 2.5 mg PO DAILY Qty: 30 0RF Continued acetaminophen 500 mg tablet 1,000 mg PO Q6H PRN metformin [Glucophage] 1,000 MG tablet 1,000 mg PO BID gabapentin 800 mg tablet 800 mg PO TID Patient Comments: TAKE 1 TABLET BY MOUTH THREE TIMES DAILY FOR PAIN pantoprazole 40 mg tablet,delayed release (DR/EC) 40 mg PO BID Patient Comments: TK 1 T PO BID venlafaxine 225 mg tablet extended release 24hr 225 mg PO DAILY Patient Comments: 150 in am 75 at night Discontinued tamsulosin [Flomax] 0.4 mg capsule 0.8 mg PO HS Qty: 180 3RF Patient Comments: takes in pm Trulicity 1.5 mg/0.5 mL pen injector 1.5 mg subcut QWEEK Patient Comments: every day glipizide 10 mg tablet extended release 24hr 2.5 mg PO DAILY Patient Comments: TK 2 TS PO D FOR BS rosuvastatin 5 mg tablet 5 mg PO DAILY Discharge Instructions Stand Alone Forms: Nursing Discharge Form Referrals: [facility] [OTHER, Rehabilitation] Referral Note: 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 Activity:: Activity as Tolerated Equipment/Supplies:: No Equipment Needed Diet:: Carb Counting Discharge Orders Discharge Orders: Discharge Order (Routine); Ordered 01/16/25 Ordered By: Caleb Arenas Discharge Data Discharge Date/Time-TO BE ENTERED AT DEPARTURE: 01/16/25 17:55 DS: Summary Time Spent with Patient providing and/or coordinating discharge services: Less than 30 minutes Status at Discharge Functional status at discharge: independent ambulation Overall status at discharge: patient is progressing back to baseline Mental Status: mental status grossly normal Speech and Movement: speech and movement normal Mood: congruent mood Affect: normal affect Quality:SDOH Health Related Social Needs: Health related social needs risk of homeless lonely/is olated Health related social needs details has had some renetta rns about current living situation Health related social needs details: has had some concerns about current living situation Exam Narrative Exam Narrative: General: This is a pleasant, obese man in no acute distress HEENT: Normocephalic, atraumatic CV: RRR Resp: CTAB Abd: NTND +NBS MSK: voluntary motion x4, no LE tenderness/edema/erythema Neuro: Awake and alert without focal deficits Psych Mental Status: mental status grossly normal Speech and Movement: speech and movement normal Mood: congruent mood Affect: normal affect DS: Data Vitals/I&O Vitals and I&O: Vital Signs Temperature 36.4 C L 01/16/25 15:22 Temperature Source Temporal Artery Scan 01/16/25 15:22 Pulse 97 H 01/16/25 15:22 Pulse Rhythm Regular 01/14/25 16:33 Respiratory Rate 16 01/16/25 15:22 Respiratory Effort Normal 01/14/25 16:33 Respiratory Depth Normal 01/14/25 16:33 Respiratory Pattern Normal 01/14/25 16:33 Blood Pressure 114/64 01/16/25 15:22 Blood Pressure Mean 80 01/16/25 15:22 Blood Pressure Position Sitting 01/14/25 08:25 Pulse Oximetry 94 01/16/25 15:22 Oxygen Delivery Method Room Air 01/16/25 15:22 Oxygen Flow Rate 0 01/16/25 15:22 Fraction of Inspired Oxygen (FIO2) 21 01/16/25 03:09 Pain Level 0 01/16/25 15:22 Comment chest tightness 01/15/25 12:40 Intake & Output 01/15/25 01/16/25 01/16/25 23:59 11:59 23:59 Intake Total 490 / 490 Output Total 1625 / 1625 Balance 490 / 490 -1625 / -1625 Weight 99 kg Intake: IV Oral 480 / 480 Output: Urine 1625 / 1625 Other: Urine Color Yellow Urine Appearance Clear Urine Odor None Comment pT stated that he got up and used bathroom. Patient voids independently, emptied out the hat in the toilet Stool Characteristics Soft Formed Brown Data Completed and Pending Labs on day of discharge: Labs from last 24 hours 01/16/25 01/16/25 15:25 06:30 Sodium 140 Potassium 3.9 Chloride 104 Carbon Dioxide 28.9 Anion Gap 7.1 BUN 19 H Creatinine 1.0 Est GFR (CKD-EPI 2020) 81.98 Glucose 189 H Calcium 8.9 Troponin I 6 PFSH All Active Problems (Updated 01/17/25 @ 00:03 by KENIA STEVEN) Syncope and collapse (Acute) Chest heaviness (Acute) Peyronie's disease (Acute) Memory impairment (Acute) Osteoarthritis of knees, bilateral (Acute) Peroneal tendinitis (Acute) Mass of parotid gland (Acute) Closed fracture of finger of left hand (Acute 09/29/21) small finger Hiatal hernia (Chronic) Foot pain, right (Acute) Cellulitis of foot, right (Acute) Other sprain of right shoulder joint, initial encounter (Acute) Fall (Acute) SOB (shortness of breath) (Acute) Shortness of breath at rest (Acute) Weakness with dizziness (Acute) Anastomotic stricture of gastrojejunostomy (Acute) Diabetes mellitus type II, uncontrolled (Chronic) S/P gastric bypass (Chronic) Liver cirrhosis secondary to nonalcoholic steatohepatitis (HERR) (Acute) Degenerative cervical spinal stenosis (Chronic 12/23/14) Hyperlipidemia (Acute 05/16/13) Obesity (BMI 35.0-39.9 without comorbidity) (Acute) Hypertension (Acute) GERD (gastroesophageal reflux disease) (Acute) Dysphagia (Chronic) Chest pain (Acute) Medical History GERD (gastroesophageal reflux disease) Alcoholic cirrhosis of liver without ascites Non-insulin dependent type 2 diabetes mellitus Dementia Per pt. states he still signs for himself Low back pain Chest pain Per pt. this was related to when he had gastric bypass he had scarring over his esophagus, and it wasn't cardiac in nature Elevated bilirubin Abnormality of penis (11/18/14) Anxiety (07/16/14) Benign neoplasm of colon (08/15/11) Depression (07/16/14) Erectile dysfunction (06/19/14) Sensorineural hearing loss, bilateral (01/06/17) BPH (benign prostatic hyperplasia) Surgical History Hx of cholecystectomy 09/15/23 pt denies he has had a cholecyctectomy. He reports he has had a gastric bypass. Mayur Franco RN Hx of total knee replacement Bilateral. History of colonoscopy (~10/30/20) History of esophagogastroduodenoscopy (EGD) (~08/13/21) 10/30/20 H/O gastric bypass 2010 bunionectomy (07/18/14) Left Dr Márquez Rotator Cuff Repair Repair, ACL Repair of inguinal hernia Family History Mother Alzheimer disease Social History Smoking/Tobacco Use Status: Former Tobacco Use Quit Date: 07/10/85 Smoking risk assessment performed?: Yes Alcohol Intake: former Drug use: Never Substance use type: does not use Household members: spouse Housing: other current occupation: retired Current gender identity: male What is your relationship status?: Panel score (0-1 are the most socially isolated patients): 1 Do you feel safe at home: Yes (unable to assess privately) Do you feel safe in your relationship?: Yes Time Spent with Patient Time Spent with Patient: 45-69 minutes Time was spent: preparing to see the patient(eg.review tests), obtaining and/or reviewing separately otained hiistory, ordering medications,tests, procedures, referring, communicating with other health pharmacy care coordinator, indepentently interpreting results, counseling the patient and care coordination
[2025-01-16] MEDS: amLODIPine 2.5 MG TAB PO (17:43)
== END 2025-01-16 17:55 | disposition home or self-care (01) ==
LOC: ER 12:54 → MS 12:58
PROVIDERS: Admitting Provider Family Medicine; Emergency Provider Emergency Medicine; PCP Student in an Organized Health Care Education/Training Program; Responsible Provider Family Medicine; Visit Provider Family Medicine
DX: R55 Syncope and collapse (principal); I20.89 Other forms of angina pectoris; R06.02 Shortness of breath; E83.42 Hypomagnesemia; K21.9 Gastro-esophageal reflux disease without esophagitis; E11.9 Type 2 diabetes mellitus without complications; N40.0 Benign prostatic hyperplasia without lower urinary tract symptoms; F03.90 Unspecified dementia, unspecified severity, without behavioral disturbance, psychotic disturbance, mood disturbance, and anxiety; Z79.899 Other long term (current) drug therapy; D64.9 Anemia, unspecified; R53.1 Weakness; E78.5 Hyperlipidemia, unspecified; Z98.84 Bariatric surgery status; F41.9 Anxiety disorder, unspecified; F32.A Depression, unspecified; H90.3 Sensorineural hearing loss, bilateral; K70.30 Alcoholic cirrhosis of liver without ascites; Z79.85 Long-term (current) use of injectable non-insulin antidiabetic drugs; Z79.84 Long term (current) use of oral hypoglycemic drugs; Z96.653 Presence of artificial knee joint, bilateral; Z59.811 Housing instability, housed, with risk of homelessness
CPT/HCPCS: 00123; 36415; 80048; 80053; 83690; 85027; 93005; 96372; 97162; 97530; 99285; J1650; 71046; 83036; 83735; 84484; 85025; 85379; 93010; 93306; 94660; 94760; 99222; 99232; 99239; G0378; J1815; J3490